=== PATIENT | female | born 1945 | race Caucasian/White ===

== ENCOUNTER 2020-11-01 13:43 | Outpatient (RCR) | payer MEDICARE, MEDICAID, SELFPAY ==
[2020-11-01 14:17] VITALS: BP 154/61; PULSE 80; RESP 20; TEMP 36.9; BMI 47.0
--- NOTE | 2020-11-01 15:48 | PCM.WC.HP ---
(1) Diabetic ulcer of left lower leg Status: Acute Code(s): E11.622 - Type 2 diabetes mellitus with other skin ulcer; L97.929 - Non-pressure chronic ulcer of unspecified part of left lower leg with unspecified severity (2) Fall Status: Acute Code(s): W19.XXXA - Unspecified fall, initial encounter (3) Uncontrolled type 2 diabetes mellitus Status: Acute Code(s): E11.65 - Type 2 diabetes mellitus with hyperglycemia (4) Cellulitis of left lower extremity without foot Status: Acute Code(s): L03.116 - Cellulitis of left lower limb (5) HTN (hypertension) Status: Chronic Code(s): I10 - Essential (primary) hypertension (6) Hyperlipemia Status: Acute Code(s): E78.5 - Hyperlipidemia, unspecified History of Present Illness Date of Service: 11/01/20 Chief Complaint: Nonhealing diabetic ulcer to left lower extremity status post fall a month and a half ago complicated by cellulitis History of Wound: This is a 75-year-old white female who presents to the wound healing center today with complaints of nonhealing diabetic ulcer to left lower extremity. This initially was caused by a fall that occurred a month and a half ago and it was complicated by cellulitis and her uncontrolled diabetes. She was seen by infectious disease and is currently placed on a 6-day course of tedizolid and has also been on a course of Keflex as well. She has a past medical history significant for uncontrolled diabetes, obesity, prior tobacco abuse, hypertension, and hyperlipidemia. The patient has been utilizing antibiotic ointment to the site covered with gauze and change daily without much improvement. She denies any other wound treatments at this time and denies any other acute concerns. Past medical, family, and social history reviewed and not pertinent to the current visit and all other systems reviewed and negative with exception of those listed above. Past Medical History Past Medical History: Chronic Problems HTN (hypertension) (Chronic) Allergies/Adverse Reactions: Allergies sulfamethoxazole [From Bactrim] Adverse Reaction (Verified 11/01/20 14:52) Shortness of breath trimethoprim [From Bactrim] Adverse Reaction (Verified 11/01/20 14:52) Shortness of breath Home Medications: Ambulatory Orders Medication Instructions Recorded Duloxetine HCl 60 mg PO 11/01/20 Fenofibrate [Tricor] 145 mg PO DAILY 11/01/20 Gabapentin TID 11/01/20 Losartan Potassium DAILY 11/01/20 Metformin HCl 1,000 mg PO 11/01/20 Sitagliptin Phosphate [Januvia] 100 mg PO DAILY 11/01/20 traZODone [Desyrel] 50 mg PO PRN PRN 11/01/20 Smoking Status: Former smoker Review of Systems Constitutional: Denies: Chills, Fever, Weight Change Eyes: Denies: Pain, Vision Change HEENT: Denies: Difficulty Hearing, Difficulty Swallowing, Sinus Congestion Cardiovascular: Denies: Chest Pain, Palpitations Respiratory: Denies: Cough, Shortness of Breath Gastrointestinal: Denies: Diarrhea, Nausea, Vomiting Genitourinary: Denies: Dysuria, Hematuria Skin: Reports: Wounds - See HPI Endocrine: Denies: Heat/ Cold Intolerance, Polydipsia, Polyuria Hematologic/ Lymphatic: Denies: Easy Bruising, Easy Bleeding - Physical Exam Vital Signs Temp Pulse Resp BP 98.5 F 80 20 H 154/61 H 11/01/20 14:17 11/01/20 14:17 11/01/20 14:17 11/01/20 14:17 General: Alert, Oriented x3, Cooperative, No apparent distress HEENT: Atraumatic Oral: Moist Mucosa Lungs: Clear to auscultation, Normal air movement Cardiovascular: Regular rate, Regular Rhythm Abdomen: Soft, Obese Extremities: No clubbing, No cyanosis, Diminished Peripheral Pulses, Edema - Generalized bilateral lower extremity edema with chronic venous changes present Skin: Ulcer/ Wound - See nursing documentation, diabetic leg ulcer present with adherent slough, patient does have surrounding area of erythema which seems to be resolving with her current antibiotic treatment Wound Measurements and Assessment WC - Nurse 1 - General Ulcer Measurement Start: 11/01/20 14:17 Freq: Status: Active Protocol: Activity Type Activity Date Activity User E-Sign Co-Sign Detail Recorded Client Recorded Date Recorded By Document 11/01/20 14:17 DL [id number] 11/01/20 14:44 DL 11/01/20 14:17 Wound Center Nurse 1 [Ulcer Assessment] #1 LLE Post -Current Size (cm) - Length 1.2 -Current Size (cm) - Width 1.2 -Current Size (cm) - Depth 0.1 -Total Square Cm 1.44 -Photo Taken Yes -Exudate Amt Small -Exudate Type Serosanguineous -Wound Margin Distinct, Outline Attached -Granulation Amt Medium (34-66%) -Granulation Quality [place] -Necrosis Amt Medium (34-66%) -Necrotic Tissue Type Adherent Slough -Structure Exposed N/A -Texture (Darleen-wound Skin Appearance) Localized Edema ,Scarring -Moisture (Darleen-wound Skin Appearance Dry/Scaly ) -Color (Darleen-wound Skin Appearance) Erythema, Hemosiderin Staining -Temperature (Darleen-wound Skin No Abnormality Appearance) (Pt Warm) -Tenderness on Palpation (Darleen-wound Yes Skin Appearance) -Ulcer Cleansing Wound Cleanser -Foul Odor after Cleansing Yes -Anesthetic Used 4% Lidocaine Solution [Edema Assessment] -Right Calf (cm) 45 -Right Ankle (cm) 25.5 -Left Calf (cm) 49 -Left Ankle (cm) 26.5 WC - Nurse 2 - General Ulcer CM Notes Start: 11/01/20 14:17 Freq: Status: Active Protocol: Activity Type Activity Date Activity User E-Sign Co-Sign Detail Recorded Client Recorded Date Recorded By Document 11/01/20 15:24 MW [id number] 11/01/20 15:34 MW 11/01/20 15:24 Wound Center Nurse 2 [Procedure/Treatment] #1 LLE Post -Time 15:25 -Correct Patient Yes -Correct Side, Site, Position Yes -Correct Procedure Yes -Procedure Performed Yes -Type of Procedure Debridement -Clinical Debridement Subcutaneous -Tissue Removed Subcutaneous -Post Debridement (cm) - Length 1.5 -Post Debridement (cm) - Width 1.5 -Post Debridement (cm) - Depth 0.1 -Total Square (Post) (cm) 2.25 -Area of Debridement (cm) - Length 1.5 -Area of Debridement (cm) - Width 1.5 -Total Square (Area) (cm) 2.25 -Tunneling No -Undermining/Tunneling No -Circular Undermining No -Wound/Ulcer Outcome Not Healed -Ulcer Cleansing Rinsed/ Irrigated with Saline -Foul Odor after Cleansing No -Bioengineered Tissue No -Bleeding Controlled with Pressure -Offloading No -Treatment Response Procedure Tolerated Well -Debridement - Subq, 1st 20sq cm Yes [See Physician Procedure note for Specifics] Pain Scale: 0-10 Numeric [Pain] -Is Patient Pain Free? Yes WC - Nurse 3 - General Ulcer D/C NN Start: 11/01/20 14:17 Freq: Status: Active Protocol: Activity Type Activity Date Activity User E-Sign Co-Sign Detail Recorded Client Recorded Date Recorded By Document 11/01/20 15:40 MW [id number] 11/01/20 15:43 MW 11/01/20 15:40 Wound Care Nurse 3 [Wound Dressing] #1 LLE Post -Ulcer Cleansing Rinsed/ Irrigated with Saline -Foul Odor after Cleansing No -Negative Pressure Wound Therapy N/A -Primary Dressing Applied Promogran Isabel Matter -Primary Dressing Covered/Secured Dry Gauze & with Roll Gauze, Secured with Tape -Promogran Isabel Matter 1 [Post Procedure Tolerated] -Treatment Response Procedure Tolerated Well Pain Scale: 0-10 Numeric [Pain] -Is Patient Pain Free? Yes Teaching: Wound Center [Wound Center Education] (Items with an * have Printed Materials Available- Please identify what is given to patient under the Teaching materials given to patient and caregiver Section. Control Swelling with Leg Elevation -Person Taught Patient -Teaching Method Discussion -Response to teaching Verbalize understanding Dressing Your Wound -Person Taught Patient,Family -Teaching Method Discussion, Demonstration -Response to teaching Verbalize understanding - Visit Discharge [Visit Discharge Information] -Discharge Condition Stable -Ambulatory Status Ambulatory,Cane -Transportation Private Auto -Accompanied by daughter -Medication Reconcilliation completed No & provided to patient/care provider -Clinical Summary of Care Provided Yes Neurological: Neuro grossly intact Psych/Mental Status: Normal Affect, Appropriate, Alert and oriented to time, place, person, mood and affect Debridement Note Post-Debridement Measurements/Treatment - Nurse 2 - General Ulcer CM Notes Start: 11/01/20 14:17 Freq: Status: Active Protocol: Activity Type Activity Date Activity User E-Sign Co-Sign Detail Recorded Client Recorded Date Recorded By Document 11/01/20 15:24 MW [id number] 11/01/20 15:34 MW 11/01/20 15:24 Wound Center Nurse 2 #1 LLE Post -Time 15:25 -Correct Patient Yes -Correct Side, Site, Position Yes -Correct Procedure Yes -Procedure Performed Yes -Type of Procedure Debridement -Clinical Debridement Subcutaneous -Tissue Removed Subcutaneous -Post Debridement (cm) - Length 1.5 -Post Debridement (cm) - Width 1.5 -Post Debridement (cm) - Depth 0.1 -Total Square (Post) (cm) 2.25 -Area of Debridement (cm) - Length 1.5 -Area of Debridement (cm) - Width 1.5 -Total Square (Area) (cm) 2.25 -Tunneling No -Undermining/Tunneling No -Circular Undermining No -Wound/Ulcer Outcome Not Healed -Ulcer Cleansing Rinsed/ Irrigated with Saline -Foul Odor after Cleansing No -Bioengineered Tissue No -Bleeding Controlled with Pressure -Offloading No -Treatment Response Procedure Tolerated Well -Debridement - Subq, 1st 20sq cm Yes Pain Scale: 0-10 Numeric Is Patient Pain Free? Yes WC - Nurse 3 - General Ulcer D/C NN Start: 11/01/20 14:17 Freq: Status: Active Protocol: Activity Type Activity Date Activity User E-Sign Co-Sign Detail Recorded Client Recorded Date Recorded By Document 11/01/20 15:40 MW [id number] 11/01/20 15:43 MW 11/01/20 15:40 Wound Care Nurse 3 #1 LLE Post -Ulcer Cleansing Rinsed/ Irrigated with Saline -Foul Odor after Cleansing No -Negative Pressure Wound Therapy N/A -Primary Dressing Applied Promogran Isabel Matter -Primary Dressing Covered/Secured with Dry Gauze & Roll Gauze, Secured with Tape -Promogran Isabel Matter 1 Treatment Response Procedure Tolerated Well Pain Scale: 0-10 Numeric Is Patient Pain Free? Yes Teaching: Wound Center Control Swelling with Leg Elevation -Person Taught Patient -Teaching Method Discussion -Response to teaching Verbalize understanding Dressing Your Wound -Person Taught Patient,Family -Teaching Method Discussion, Demonstration -Response to teaching Verbalize understanding WC - Visit Discharge Discharge Condition Stable Ambulatory Status Ambulatory,Cane Transportation Private Auto Accompanied by daughter Medication Reconcilliation completed & No provided to patient/care provider Clinical Summary of Care Provided Yes Wound debrided: Left diabetic leg ulcer Laterality: Left Type of Debridement: Excisional debridement Anesthesia Used: 5% Lidocaine Gel Depth: in the subcutaneous layer Percentage of wound debrided: 100 Instrument Used: 5mm curette Tissue Removed: Slough and devitalized tissue Severity: Fat Layer Exposed Amount of bleeding with debridement: Mild Bleeding Controlled with: Pressure Patient tolerated procedure well Assessment/Plan Active Problems Diabetic ulcer of left lower leg (Acute) Fall (Acute) Uncontrolled type 2 diabetes mellitus (Acute) Cellulitis of left lower extremity without foot (Acute) HTN (hypertension) (Chronic) Hyperlipemia (Acute) Assessment: Diabetic leg ulcer to left lower extremity Plan: The patient was seen and examined at the wound center today and was updated on the plan of care. A subcutaneous debridement was performed today. The patient tolerated the procedure well. The patients wound care will consist of: Application of moistened Isabel cover with gauze change daily. Double layer Tubigrip for compression. Wound cultures were collected. Baseline bloodwork held at this time. Vascular studies held at this time, will reconsider if no improvement. Given the delayed wound healing and patient's complicated wound involvement including uncontrolled diabetes and cellulitis, will apply for an advanced skin substitute. Patient educated on the importance of diet on wound healing and instructed to increase protein and vitamin C intake. Patient verbalized understanding. Patient has been advised to elevate lower extremities as much as possible. Elevation is to be implemented during daytime hours and legs are to be elevated to heart level, or higher, as much as possible. Prolonged idle sitting has been discouraged. Activity and ambulation has been encouraged. Patient will follow up at wound healing center in one week or sooner if needed. This note was generated with [employer] dictation software. It may contain incorrect words, spelling, and punctuation that were not noted in checking the note before signing. I spent 45 minutes today physically examining patient and educating patient on plan of care. This time also included reviewing her labs, prior documentation, and documenting. Office Visits / Consults: [id number] OV L4 New [id number]: [id number] Kavya subq tissue 20 sq cm/<
== END 2020-11-04 23:59 ==
LOC: WC 13:43
PROVIDERS: PCP Nurse Practitioner Primary Care; Referring Provider Internal Medicine Infectious Disease; Visit Provider Nurse Practitioner Family
DX: E11.622 Type 2 diabetes mellitus with other skin ulcer (principal); L97.922 Non-pressure chronic ulcer of unspecified part of left lower leg with fat layer exposed; L03.116 Cellulitis of left lower limb; W19.XXXA Unspecified fall, initial encounter; E66.9 Obesity, unspecified; E78.5 Hyperlipidemia, unspecified; I10 Essential (primary) hypertension; Z79.84 Long term (current) use of oral hypoglycemic drugs; Z79.899 Other long term (current) drug therapy; Z87.891 Personal history of nicotine dependence; Z88.1 Allergy status to other antibiotic agents; Z88.2 Allergy status to sulfonamides
CPT/HCPCS: 11042; 87070; 87075; 87205; 99203; G0463

== ENCOUNTER 2020-11-22 14:45 | Outpatient (RCR) | payer MEDICARE, MEDICAID, SELFPAY ==
[2020-11-05 00:41] VITALS: BP 154/61; PULSE 80; RESP 20; TEMP 36.9
[2020-11-08 14:58] VITALS: BP 146/64; PULSE 81; RESP 20; TEMP 35.7; BMI 47.0
[2020-11-08 15:41] VITALS: BP 138/79; PULSE 68; RESP 18; TEMP 36.5
--- NOTE | 2020-11-08 16:07 | PN.PCM_ITS ---
(1) Diabetic ulcer of left lower leg Status: Acute Code(s): E11.622 - Type 2 diabetes mellitus with other skin ulcer; L97.929 - Non-pressure chronic ulcer of unspecified part of left lower leg with unspecified severity Comment: bowen 2 (2) Cellulitis of left lower extremity without foot Status: Acute Code(s): L03.116 - Cellulitis of left lower limb (3) Fall Status: Acute Code(s): W19.XXXA - Unspecified fall, initial encounter (4) Uncontrolled type 2 diabetes mellitus Status: Acute Code(s): E11.65 - Type 2 diabetes mellitus with hyperglycemia (5) HTN (hypertension) Status: Chronic Code(s): I10 - Essential (primary) hypertension Type of Wound Date of Service: 11/08/20 Chief Complaint: Nonhealing diabetic ulcer to left lower extremity status post fall a month and a half ago complicated by cellulitis History of Wound: This is a 75-year-old white female who presents to the wound healing center today with complaints of nonhealing diabetic ulcer to left lower extremity. This initially was caused by a fall that occurred a month and a half ago and it was complicated by cellulitis and her uncontrolled diabetes. She was seen by infectious disease and is currently placed on a 6-day course of tedizolid and has also been on a course of Keflex as well. She has a past medical history significant for uncontrolled diabetes, obesity, prior tobacco abuse, hypertension, and hyperlipidemia. The patient has been utilizing antibiotic ointment to the site covered with gauze and change daily without much improvement. She denies any other wound treatments at this time and denies any other acute concerns. Past medical, family, and social history reviewed and not pertinent to the current visit and all other systems reviewed and negative with exception of those listed above. Progress of Wound: Improved, no new concerns. Wound cultures were reviewed and negative. - Physical Exam Vital Signs Temp Pulse Resp BP 97.7 F L 68 18 138/79 H 11/08/20 15:41 11/08/20 15:41 11/08/20 15:41 11/08/20 15:41 General: Alert, Oriented x3, Cooperative, No apparent distress HEENT: Atraumatic Oral: Moist Mucosa Lungs: Clear to auscultation, Normal air movement Cardiovascular: Regular rate Abdomen: Soft, Non Tender, Obese Extremities: No clubbing, No cyanosis, Diminished Peripheral Pulses - Diminished dorsal pedis pulses bilaterally, Edema - 1+ bilateral lower extremity edema Skin: Ulcer/ Wound - See nursing documentation, slough and devitalized tissue present, no signs of infection at this time Wound Measurements and Assessment - Nurse 1 - General Ulcer Measurement Start: 11/08/20 14:58 Freq: Status: Active Protocol: Activity Type Activity Date Activity User E-Sign Co-Sign Detail Recorded Client Recorded Date Recorded By Document 11/08/20 14:58 DL [id number] 11/08/20 15:06 DL 11/08/20 14:58 Wound Center Nurse 1 [Ulcer Assessment] #1 LLE Post -Current Size (cm) - Length 1 -Current Size (cm) - Width 1.1 -Current Size (cm) - Depth 0.1 -Total Square Cm 1.1 -Photo Taken No -Exudate Amt Small -Exudate Type Serosanguineous -Wound Margin Distinct, Outline Attached -Granulation Amt Medium (34-66%) -Granulation Quality Red -Necrosis Amt Medium (34-66%) -Necrotic Tissue Type Adherent Slough -Structure Exposed N/A -Texture (Darleen-wound Skin Appearance) Scarring -Moisture (Darleen-wound Skin Appearance Dry/Scaly ) -Color (Darleen-wound Skin Appearance) Hemosiderin Staining -Temperature (Darleen-wound Skin No Abnormality Appearance) (Pt Warm) -Tenderness on Palpation (Darleen-wound No Skin Appearance) -Ulcer Cleansing Wound Cleanser -Foul Odor after Cleansing No -Anesthetic Used 4% Lidocaine Solution [Edema Assessment] -Left Calf (cm) 45.8 -Left Ankle (cm) 25 - Nurse 3 - General Ulcer D/C NN Start: 11/08/20 14:58 Freq: Status: Active Protocol: Activity Type Activity Date Activity User E-Sign Co-Sign Detail Recorded Client Recorded Date Recorded By Document 11/08/20 15:41 MS [id number] 11/08/20 15:43 MS 11/08/20 15:41 Wound Care Nurse 3 [Wound Dressing] #1 LLE Post -Ulcer Cleansing Rinsed/ Irrigated with Saline -Foul Odor after Cleansing No -Primary Dressing Applied Promogran Isabel Matter -Promogran Isabel Matter 1 [Compression Applied] Left -Tubular Bandage Double Layer -Size of Tubigrip Used Size F -Size F ($) 2 -Stockings No Vital Signs [Temperature Protocol: VS] -Temperature (97.8 F-99.1 F) 97.7 F L -Temperature Source Tympanic [Pulse] -Pulse Rate (60-100) 68 -Pulse Location Monitor [Respirations] -Respiratory Rate (12-18) 18 -Respiratory rate source Observation [Blood Pressure] -Blood Pressure (90/60-120/80) 138/79 H -Blood Pressure Mean (mm Hg) 98 -Source Monitor -Position Supine -Blood Pressure Location Left Arm Pain Scale: 0-10 Numeric [Pain] -Is Patient Pain Free? Yes WC - Visit Discharge [Visit Discharge Information] -Discharge Condition Stable -Ambulatory Status Cane -Accompanied by daughter -Medication Reconcilliation completed No & provided to patient/care provider -Clinical Summary of Care Provided Yes Neurological: Neuro grossly intact Psych/Mental Status: Normal Affect, Appropriate, Alert and oriented to time, place, person, mood and affect Debridement Note Post-Debridement Measurements/Treatment WC - Nurse 3 - General Ulcer D/C NN Start: 11/08/20 14:58 Freq: Status: Active Protocol: Activity Type Activity Date Activity User E-Sign Co-Sign Detail Recorded Client Recorded Date Recorded By Document 11/08/20 15:41 MS [id number] 11/08/20 15:43 MS 11/08/20 15:41 Wound Care Nurse 3 #1 LLE Post -Ulcer Cleansing Rinsed/ Irrigated with Saline -Foul Odor after Cleansing No -Primary Dressing Applied Promogran Isabel Matter -Promogran Isabel Matter 1 Left -Tubular Bandage Double Layer -Size of Tubigrip Used Size F -Size F ($) 2 -Stockings No Vital Signs Temperature (97.8 F-99.1 F) 97.7 F L Temperature Source Tympanic Pulse Rate (60-100) 68 Pulse Location Monitor Respiratory Rate (12-18) 18 Respiratory rate source Observation Blood Pressure (90/60-120/80) 138/79 H Blood Pressure Mean (mm Hg) 98 Source Monitor Position Supine Blood Pressure Location Left Arm Pain Scale: 0-10 Numeric Is Patient Pain Free? Yes WC - Visit Discharge Discharge Condition Stable Ambulatory Status Cane Accompanied by daughter Medication Reconcilliation completed & No provided to patient/care provider Clinical Summary of Care Provided Yes Wound debrided: Diabetic leg ulcer left lower leg Laterality: Left Type of Debridement: Excisional debridement Anesthesia Used: 5% Lidocaine Gel Depth: in the subcutaneous layer Percentage of wound debrided: 100 Instrument Used: 5mm curette Tissue Removed: Slough and devitalized tissue Severity: Fat Layer Exposed Amount of bleeding with debridement: Mild Bleeding Controlled with: Pressure Patient tolerated procedure well Assessment/Plan Assessment: Diabetic leg ulcer to left lower extremity Plan: The patient was seen and examined at the wound center today and was updated on the plan of care. A subcutaneous debridement was performed today. The patient tolerated the procedure well. The patients wound care will consist of: Application of moistened Isabel cover with gauze change daily. Double layer Tubigrip for compression. Wound cultures were collected. Baseline bloodwork held at this time. Vascular studies held at this time, will reconsider if no improvement. Given the delayed wound healing and patient's complicated wound involvement including uncontrolled diabetes and cellulitis, will apply for an advanced skin substitute. Patient educated on the importance of diet on wound healing and instructed to increase protein and vitamin C intake. Patient verbalized understanding. Patient has been advised to elevate lower extremities as much as possible. Elevation is to be implemented during daytime hours and legs are to be elevated to heart level, or higher, as much as possible. Prolonged idle sitting has been discouraged. Activity and ambulation has been encouraged. Patient will follow up at wound healing center in one week or sooner if needed. This note was generated with [email or web address] software. It may contain incorrect words, spelling, and punctuation that were not noted in checking the note before signing. 111xxx-113xx: [id number] Kavya subq tissue 20 sq cm/<
[2020-11-15 14:54] VITALS: BP 155/69; PULSE 77; RESP 18; TEMP 36.8; BMI 47.0
--- NOTE | 2020-11-15 15:55 | PCM.WC.PN ---
(1) Diabetic ulcer of left lower leg Status: Acute Code(s): E11.622 - Type 2 diabetes mellitus with other skin ulcer; L97.929 - Non-pressure chronic ulcer of unspecified part of left lower leg with unspecified severity Comment: bowen 2 (2) Cellulitis of left lower extremity without foot Status: Acute Code(s): L03.116 - Cellulitis of left lower limb (3) Fall Status: Acute Code(s): W19.XXXA - Unspecified fall, initial encounter (4) Uncontrolled type 2 diabetes mellitus Status: Acute Code(s): E11.65 - Type 2 diabetes mellitus with hyperglycemia (5) HTN (hypertension) Status: Chronic Code(s): I10 - Essential (primary) hypertension Type of Wound Date of Service: 11/15/20 Chief Complaint: Nonhealing diabetic ulcer to left lower extremity status post fall a month and a half ago complicated by cellulitis History of Wound: This is a 75-year-old white female who presents to the wound healing center today with complaints of nonhealing diabetic ulcer to left lower extremity. This initially was caused by a fall that occurred a month and a half ago and it was complicated by cellulitis and her uncontrolled diabetes. She was seen by infectious disease and is currently placed on a 6-day course of tedizolid and has also been on a course of Keflex as well. She has a past medical history significant for uncontrolled diabetes, obesity, prior tobacco abuse, hypertension, and hyperlipidemia. The patient has been utilizing antibiotic ointment to the site covered with gauze and change daily without much improvement. She denies any other wound treatments at this time and denies any other acute concerns. Past medical, family, and social history reviewed and not pertinent to the current visit and all other systems reviewed and negative with exception of those listed above. Progress of Wound: Improved, no new concerns. Wound cultures were reviewed and negative. - Physical Exam Vital Signs Temp Pulse Resp BP 98.2 F 77 18 155/69 H 11/15/20 14:54 11/15/20 14:54 11/15/20 14:54 11/15/20 14:54 General: Alert, Oriented x3, Cooperative, No apparent distress HEENT: Atraumatic Oral: Moist Mucosa Neck: Supple Lungs: Clear to auscultation, Normal air movement Cardiovascular: Regular rate Abdomen: Soft, Obese Extremities: No clubbing, No cyanosis, Diminished Peripheral Pulses - Diminished dorsal pedis pulses bilaterally, Edema - Generalized bilateral lower extremity edema Skin: Ulcer/ Wound - See nursing documentation, slough and devitalized tissue present, no signs of obvious infection at this time Wound Measurements and Assessment - Nurse 1 - General Ulcer Measurement Start: 11/08/20 14:58 Freq: Status: Active Protocol: Activity Type Activity Date Activity User E-Sign Co-Sign Detail Recorded Client Recorded Date Recorded By Document 11/15/20 14:54 PL [id number] 11/15/20 15:00 PL 11/15/20 14:54 Wound Center Nurse 1 [Ulcer Assessment] #1 LLE Post -Current Size (cm) - Length 0.9 -Current Size (cm) - Width 0.8 -Current Size (cm) - Depth 0.1 -Total Square Cm 0.72 -Photo Taken No -Epithelialization None Present -Tunneling No -Undermining/Tunneling No -Circular Undermining No -Exudate Amt Medium -Exudate Type Serosanguineous -Granulation Amt Large (67-100%) -Granulation Quality Between -Slough/Fibrin Yes -Necrosis Amt Small (1-33%) -Texture (Darleen-wound Skin Appearance) No Abnormality -Moisture (Darleen-wound Skin Appearance No Abnormality ) -Color (Darleen-wound Skin Appearance) No Abnormality -Temperature (Darleen-wound Skin No Abnormality Appearance) (Pt Warm) -Ulcer Cleansing Rinsed/ Irrigated with Saline -Foul Odor after Cleansing No -Anesthetic Used 5% Lidocaine Gel - Nurse 2 - General Ulcer CM Notes Start: 11/08/20 14:58 Freq: Status: Active Protocol: Activity Type Activity Date Activity User E-Sign Co-Sign Detail Recorded Client Recorded Date Recorded By Document 11/15/20 15:19 MW [id number] 11/15/20 15:25 MW 11/15/20 15:19 Wound Center Nurse 2 [Procedure/Treatment] -Time 15:23 -Correct Patient Yes -Correct Side, Site, Position Yes -Correct Procedure Yes -Procedure Performed Yes -Type of Procedure Debridement -Clinical Debridement Subcutaneous -Tissue Removed Subcutaneous -Post Debridement (cm) - Length 1.0 -Post Debridement (cm) - Width 0.9 -Post Debridement (cm) - Depth 0.1 -Total Square (Post) (cm) 0.90 -Area of Debridement (cm) - Length 1.0 -Area of Debridement (cm) - Width 0.9 -Total Square (Area) (cm) 0.90 -Tunneling No -Undermining/Tunneling No -Circular Undermining No -Wound/Ulcer Outcome Not Healed -Ulcer Cleansing Rinsed/ Irrigated with Saline -Foul Odor after Cleansing No -Bioengineered Tissue No -Bleeding Controlled with Pressure -Offloading No -Treatment Response Procedure Tolerated Well -Debridement - Subq, 1st 20sq cm Yes [See Physician Procedure note for Specifics] Pain Scale: 0-10 Numeric [Pain] -Is Patient Pain Free? Yes - Nurse 3 - General Ulcer D/C NN Start: 11/08/20 14:58 Freq: Status: Active Protocol: Activity Type Activity Date Activity User E-Sign Co-Sign Detail Recorded Client Recorded Date Recorded By Document 11/15/20 15:25 MW [id number] 11/15/20 15:26 MW 11/15/20 15:25 Wound Care Nurse 3 [Wound Dressing] #1 LLE Post -Ulcer Cleansing Rinsed/ Irrigated with Saline -Foul Odor after Cleansing No -Negative Pressure Wound Therapy N/A -Primary Dressing Applied Aquacel Extra -Primary Dressing Covered/Secured Dry Gauze & with Roll Gauze, Secured with Tape -Aquacel Extra 1 [Post Procedure Tolerated] -Treatment Response Procedure Tolerated Well Pain Scale: 0-10 Numeric [Pain] -Is Patient Pain Free? Yes Teaching: Wound Center [Wound Center Education] (Items with an * have Printed Materials Available- Please identify what is given to patient under the Teaching materials given to patient and caregiver Section. Control Swelling with Leg Elevation -Person Taught Patient,Family -Teaching Method Discussion -Response to teaching Verbalize understanding Dressing Your Wound -Person Taught Patient,Family -Teaching Method Discussion -Response to teaching Verbalize understanding - Visit Discharge [Visit Discharge Information] -Discharge Condition Stable -Ambulatory Status Ambulatory -Transportation Private Auto -Accompanied by daughter -Medication Reconcilliation completed No & provided to patient/care provider -Clinical Summary of Care Provided Yes Neurological: Neuro grossly intact Psych/Mental Status: Normal Affect, Appropriate, Alert and oriented to time, place, person, mood and affect Debridement Note Post-Debridement Measurements/Treatment WC - Nurse 2 - General Ulcer CM Notes Start: 11/08/20 14:58 Freq: Status: Active Protocol: Activity Type Activity Date Activity User E-Sign Co-Sign Detail Recorded Client Recorded Date Recorded By Document 11/08/20 15:00 PL [id number] 11/14/20 14:55 PL Document 11/15/20 15:19 MW [id number] 11/15/20 15:25 MW 11/08/20 11/15/20 15:00 15:19 Wound Center Nurse 2 #1 LLE Post -Time 15:00 15:23 -Correct Patient Yes Yes -Correct Side, Site, Position Yes Yes -Correct Procedure Yes Yes -Procedure Performed Yes Yes -Type of Procedure Debridement Debridement -Clinical Debridement Subcutaneous Subcutaneous -Tissue Removed Subcutaneous Subcutaneous -Post Debridement (cm) - Length 1 1.0 -Post Debridement (cm) - Width 1.1 0.9 -Post Debridement (cm) - Depth 0.1 0.1 -Total Square (Post) (cm) 1.1 0.90 -Area of Debridement (cm) - Length 1 1.0 -Area of Debridement (cm) - Width 1.1 0.9 -Total Square (Area) (cm) 1.1 0.90 -Tunneling No No -Undermining/Tunneling No No -Circular Undermining No No -Wound/Ulcer Outcome Not Healed Not Healed -Ulcer Cleansing Rinsed/ Rinsed/ Irrigated with Irrigated with Saline Saline -Foul Odor after Cleansing No No -Bioengineered Tissue No No -Bleeding Controlled with Pressure -Offloading No -Treatment Response Procedure Tolerated Well -Debridement - Subq, 1st 20sq cm Yes Yes Pain Scale: 0-10 Numeric Is Patient Pain Free? Yes Yes WC - Nurse 3 - General Ulcer D/C NN Start: 11/08/20 14:58 Freq: Status: Active Protocol: Activity Type Activity Date Activity User E-Sign Co-Sign Detail Recorded Client Recorded Date Recorded By Document 11/08/20 15:41 MS [id number] 11/08/20 15:43 MS Document 11/15/20 15:25 MW [id number] 11/15/20 15:26 MW 11/08/20 11/15/20 15:41 15:25 Wound Care Nurse 3 #1 LLE Post -Ulcer Cleansing Rinsed/ Rinsed/ Irrigated with Irrigated with Saline Saline -Foul Odor after Cleansing No No -Negative Pressure Wound Therapy N/A -Primary Dressing Applied Promogran Aquacel Extra Isabel Matter -Primary Dressing Covered/Secured with Dry Gauze & Roll Gauze, Secured with Tape -Aquacel Extra 1 -Promogran Isabel Matter 1 Left -Tubular Bandage Double Layer -Size of Tubigrip Used Size F -Size F ($) 2 -Stockings No Treatment Response Procedure Tolerated Well Vital Signs Temperature (97.8 F-99.1 F) 97.7 F L Temperature Source Tympanic Pulse Rate (60-100) 68 Pulse Location Monitor Respiratory Rate (12-18) 18 Respiratory rate source Observation Blood Pressure (90/60-120/80) 138/79 H Blood Pressure Mean (mm Hg) 98 Source Monitor Position Supine Blood Pressure Location Left Arm Pain Scale: 0-10 Numeric Is Patient Pain Free? Yes Yes Teaching: Wound Center Control Swelling with Leg Elevation -Person Taught Patient,Family -Teaching Method Discussion -Response to teaching Verbalize understanding Dressing Your Wound -Person Taught Patient,Family -Teaching Method Discussion -Response to teaching Verbalize understanding WC - Visit Discharge Discharge Condition Stable Stable Ambulatory Status Cane Ambulatory Transportation Private Auto Accompanied by daughter daughter Medication Reconcilliation completed & No No provided to patient/care provider Clinical Summary of Care Provided Yes Yes Wound debrided: Left lower extremity ulcer Laterality: Left Type of Debridement: Excisional debridement Anesthesia Used: 5% Lidocaine Gel Depth: in the subcutaneous layer Percentage of wound debrided: 100 Instrument Used: 5mm curette Tissue Removed: Slough and devitalized tissue Severity: Fat Layer Exposed Amount of bleeding with debridement: Mild Bleeding Controlled with: Pressure Patient tolerated procedure well Assessment/Plan Active Problems Diabetic ulcer of left lower leg (Acute) bowen 2 Fall (Acute) Uncontrolled type 2 diabetes mellitus (Acute) Cellulitis of left lower extremity without foot (Acute) HTN (hypertension) (Chronic) Assessment: Diabetic leg ulcer to left lower extremity Plan: The patient was seen and examined at the wound center today and was updated on the plan of care. A subcutaneous debridement was performed today. The patient tolerated the procedure well. The patients wound care will consist of: Application of moistened Isabel cover with gauze change daily. Double layer Tubigrip for compression. Wound cultures were collected. Baseline bloodwork held at this time. Vascular studies held at this time, will reconsider if no improvement. Given the delayed wound healing and patient's complicated wound involvement including uncontrolled diabetes and cellulitis, will apply for an advanced skin substitute. Patient educated on the importance of diet on wound healing and instructed to increase protein and vitamin C intake. Patient verbalized understanding. Patient has been advised to elevate lower extremities as much as possible. Elevation is to be implemented during daytime hours and legs are to be elevated to heart level, or higher, as much as possible. Prolonged idle sitting has been discouraged. Activity and ambulation has been encouraged. Patient will follow up at wound healing center in one week or sooner if needed. This note was generated with [email or web address] dictation software. It may contain incorrect words, spelling, and punctuation that were not noted in checking the note before signing. [id number]: [id number] Kavya subq tissue 20 sq cm/<
[2020-11-22 14:40] VITALS: BP 192/74; PULSE 84; TEMP 35.6; BMI 47.0
--- NOTE | 2020-11-22 15:48 | PN.PCM_ITS ---
(1) Diabetic ulcer of left lower leg Status: Acute Code(s): E11.622 - Type 2 diabetes mellitus with other skin ulcer; L97.929 - Non-pressure chronic ulcer of unspecified part of left lower leg with unspecified severity Comment: bowen 2 (2) Cellulitis of left lower extremity without foot Status: Acute Code(s): L03.116 - Cellulitis of left lower limb (3) Fall Status: Acute Code(s): W19.XXXA - Unspecified fall, initial encounter (4) Uncontrolled type 2 diabetes mellitus Status: Acute Code(s): E11.65 - Type 2 diabetes mellitus with hyperglycemia (5) HTN (hypertension) Status: Chronic Code(s): I10 - Essential (primary) hypertension Type of Wound Date of Service: 11/22/20 Chief Complaint: Nonhealing diabetic ulcer to left lower extremity status post fall a month and a half ago complicated by cellulitis History of Wound: This is a 75-year-old white female who presents to the wound healing center today with complaints of nonhealing diabetic ulcer to left lower extremity. This initially was caused by a fall that occurred a month and a half ago and it was complicated by cellulitis and her uncontrolled diabetes. She was seen by infectious disease and is currently placed on a 6-day course of tedizolid and has also been on a course of Keflex as well. She has a past medical history significant for uncontrolled diabetes, obesity, prior tobacco abuse, hypertension, and hyperlipidemia. The patient has been utilizing antibiotic ointment to the site covered with gauze and change daily without much improvement. She denies any other wound treatments at this time and denies any other acute concerns. Past medical, family, and social history reviewed and not pertinent to the current visit and all other systems reviewed and negative with exception of those listed above. Progress of Wound: Site is healed, no signs of obvious infection at this time, no new concerns. Wound cultures were reviewed and negative. The patient otherwise denies any fever, chills, nausea, vomiting, shortness of breath, chest pain or pressure, palpitations, orthopnea, lower extremity edema, syncope or presyncopal episodes. - Physical Exam Vital Signs Temp Pulse Resp BP 96.0 F L 84 18 192/74 H 11/22/20 14:40 11/22/20 14:40 11/15/20 14:54 11/22/20 14:40 General: Alert, Oriented x3, Cooperative, No apparent distress HEENT: Atraumatic Oral: Moist Mucosa Lungs: Clear to auscultation, Normal air movement Cardiovascular: Regular rate, Regular Rhythm Abdomen: Soft, Non Tender Extremities: No clubbing, No cyanosis, Edema - Lower extremity edema, Peripheral Pulses Normal Skin: Ulcer/ Wound - See nursing documentation, wound is healed without any sig ns of infection at this time Wound Measurements and Assessment WC - Nurse 1 - General Ulcer Measurement Start: 11/08/20 14:58 Freq: Status: Active Protocol: Activity Type Activity Date Activity User E-Sign Co-Sign Detail Recorded Client Recorded Date Recorded By Document 11/22/20 14:40 KR [id number] 11/22/20 14:47 KR 11/22/20 14:40 Wound Center Nurse 1 [Ulcer Assessment] #1 LLE Post -Current Size (cm) - Length 1.7 -Current Size (cm) - Width 1.5 -Current Size (cm) - Depth 0.1 -Total Square Cm 2.55 -Exudate Amt Small -Exudate Type Serosanguineous -Wound Margin Distinct, Outline Attached -Granulation Amt Medium (34-66%) -Granulation Quality Red -Necrosis Amt Medium (34-66%) -Necrotic Tissue Type Adherent Slough -Texture (Darleen-wound Skin Appearance) Assessed, Scarring -Moisture (Darleen-wound Skin Appearance Assessed,Dry/ ) Scaly -Color (Darleen-wound Skin Appearance) No Abnormality, Assessed -Temperature (Darleen-wound Skin No Abnormality Appearance) (Pt Warm) -Tenderness on Palpation (Darleen-wound No Skin Appearance) -Ulcer Cleansing Rinsed/ Irrigated with Saline -Foul Odor after Cleansing No -Anesthetic Used 4% Lidocaine Solution [Edema Assessment] -Left Calf (cm) 45 -Left Ankle (cm) 27 WC - Nurse 2 - General Ulcer CM Notes Start: 11/08/20 14:58 Freq: Status: Active Protocol: Activity Type Activity Date Activity User E-Sign Co-Sign Detail Recorded Client Recorded Date Recorded By Document 11/22/20 15:00 MW [id number] 11/22/20 15:05 MW 11/22/20 15:00 Wound Center Nurse 2 [Procedure/Treatment] #1 LLE Post -Time 15:01 -Correct Patient Yes -Correct Side, Site, Position Yes -Correct Procedure Yes -Procedure Performed No -Post Debridement (cm) - Length 0 -Post Debridement (cm) - Width 0 -Post Debridement (cm) - Depth 0 -Total Square (Post) (cm) 0 -Wound/Ulcer Outcome Healed- Epithelialized [See Physician Procedure note for Specifics] Pain Scale: 0-10 Numeric [Pain] -Is Patient Pain Free? Yes - Nurse 3 - General Ulcer D/C NN Start: 11/08/20 14:58 Freq: Status: Active Protocol: Activity Type Activity Date Activity User E-Sign Co-Sign Detail Recorded Client Recorded Date Recorded By Document 11/22/20 15:09 DL [id number] 11/22/20 15:10 DL 11/22/20 15:09 Wound Care Nurse 3 [Compression Applied] Left -Stockings Yes [Post Procedure Tolerated] -Treatment Response Procedure Tolerated Well Pain Scale: 0-10 Numeric [Pain] -Is Patient Pain Free? Yes - Visit Discharge [Visit Discharge Information] -Discharge Condition Stable -Ambulatory Status Ambulatory -Transportation Private Auto -Notes: Healed. discharged. Adaptic and Hyrogel for 1 week. Neurological: Neuro grossly intact Psych/Mental Status: Normal Affect, Appropriate, Alert and oriented to time, place, person, mood and affect Debridement Note Post-Debridement Measurements/Treatment WC - Nurse 2 - General Ulcer CM Notes Start: 11/08/20 14:58 Freq: Status: Active Protocol: Activity Type Activity Date Activity User E-Sign Co-Sign Detail Recorded Client Recorded Date Recorded By Document 11/08/20 15:00 PL [id number] 11/14/20 14:55 PL Document 11/15/20 15:19 MW [id number] 11/15/20 15:25 MW Document 11/22/20 15:00 MW [id number] 11/22/20 15:05 MW 11/08/20 11/15/20 11/22/20 15:00 15:19 15:00 Wound Center Nurse 2 #1 LLE Post -Time 15:00 15:23 15:01 -Correct Patient Yes Yes Yes -Correct Side, Site, Position Yes Yes Yes -Correct Procedure Yes Yes Yes -Procedure Performed Yes Yes No -Type of Procedure Debridement Debridement -Clinical Debridement Subcutaneous Subcutaneous -Tissue Removed Subcutaneous Subcutaneous -Post Debridement (cm) - Length 1 1.0 0 -Post Debridement (cm) - Width 1.1 0.9 0 -Post Debridement (cm) - Depth 0.1 0.1 0 -Total Square (Post) (cm) 1.1 0.90 0 -Area of Debridement (cm) - Length 1 1.0 -Area of Debridement (cm) - Width 1.1 0.9 -Total Square (Area) (cm) 1.1 0.90 -Tunneling No No -Undermining/Tunneling No No -Circular Undermining No No -Wound/Ulcer Outcome Not Healed Not Healed Healed- Epithelialized -Ulcer Cleansing Rinsed/ Rinsed/ Irrigated with Irrigated with Saline Saline -Foul Odor after Cleansing No No -Bioengineered Tissue No No -Bleeding Controlled with Pressure -Offloading No -Treatment Response Procedure Tolerated Well -Debridement - Subq, 1st 20sq cm Yes Yes Pain Scale: 0-10 Numeric Is Patient Pain Free? Yes Yes Yes - Nurse 3 - General Ulcer D/C NN Start: 11/08/20 14:58 Freq: Status: Active Protocol: Activity Type Activity Date Activity User E-Sign Co-Sign Detail Recorded Client Recorded Date Recorded By Document 11/08/20 15:41 MS [id number] 11/08/20 15:43 MS Document 11/15/20 15:25 MW [id number] 11/15/20 15:26 MW Document 11/22/20 15:09 DL [id number] 11/22/20 15:10 DL 11/08/20 11/15/20 11/22/20 15:41 15:25 15:09 Wound Care Nurse 3 #1 LLE Post -Ulcer Cleansing Rinsed/ Rinsed/ Irrigated with Irrigated with Saline Saline -Foul Odor after Cleansing No No -Negative Pressure Wound Therapy N/A -Primary Dressing Applied Promogran Aquacel Extra Isabel Matter -Primary Dressing Covered/Secured with Dry Gauze & Roll Gauze, Secured with Tape -Aquacel Extra 1 -Promogran Isabel Matter 1 Left -Tubular Bandage Double Layer -Size of Tubigrip Used Size F -Size F ($) 2 -Stockings No Yes Treatment Response Procedure Procedure Tolerated Well Tolerated Well Vital Signs Temperature (97.8 F-99.1 F) 97.7 F L Temperature Source Tympanic Pulse Rate (60-100) 68 Pulse Location Monitor Respiratory Rate (12-18) 18 Respiratory rate source Observation Blood Pressure (90/60-120/80) 138/79 H Blood Pressure Mean (mm Hg) 98 Source Monitor Position Supine Blood Pressure Location Left Arm Pain Scale: 0-10 Numeric Is Patient Pain Free? Yes Yes Yes Teaching: Wound Center Control Swelling with Leg Elevation -Person Taught Patient,Family -Teaching Method Discussion -Response to teaching Verbalize understanding Dressing Your Wound -Person Taught Patient,Family -Teaching Method Discussion -Response to teaching Verbalize understanding WC - Visit Discharge Discharge Condition Stable Stable Stable Ambulatory Status Cane Ambulatory Ambulatory Transportation Private Auto Private Auto Accompanied by daughter daughter Medication Reconcilliation completed & No No provided to patient/care provider Clinical Summary of Care Provided Yes Yes Notes: Healed. discharged. Adaptic and Hyrogel for 1 week. Assessment/Plan Active Problems Diabetic ulcer of left lower leg (Acute) bowen 2 Fall (Acute) Uncontrolled type 2 diabetes mellitus (Acute) Cellulitis of left lower extremity without foot (Acute) HTN (hypertension) (Chronic) Assessment: Diabetic leg ulcer to left lower extremity Plan: The patient was seen and examined at the wound center today and was updated on the plan of care. The patient's wounds are healed without any signs of infection at this time. Patient will protect the recently healed wound by applying Adaptic and covering with gauze and tape and utilizing compression stockings. Patient has been advised to elevate lower extremities as much as possible. Elevation is to be implemented during daytime hours and legs are to be elevated to heart level, or higher, as much as possible. Prolonged idle sitting has been discouraged. Activity and ambulation has been encouraged. Patient educated on the importance of diet on wound healing and instructed to increase protein and vitamin C intake. Patient verbalized understanding. Patient has been advised to elevate lower extremities as much as possible. Patient will be discharged from the wound healing center today and follow-up as needed. This note was generated with [employer] dictation software. It may contain incorrect words, spelling, and punctuation that were not noted in checking the note before signing. 25 minutes today was utilized on educating patient on plan of care and wound treatment modalities. Office Visits / Consults: [id number] OV L3 Est
== END 2020-12-02 23:59 ==
LOC: WC 14:45
PROVIDERS: PCP Nurse Practitioner Primary Care; Referring Provider Internal Medicine Infectious Disease; Visit Provider Nurse Practitioner Family
DX: E11.622 Type 2 diabetes mellitus with other skin ulcer (principal); L97.822 Non-pressure chronic ulcer of other part of left lower leg with fat layer exposed; L03.116 Cellulitis of left lower limb; E11.65 Type 2 diabetes mellitus with hyperglycemia; I10 Essential (primary) hypertension; E78.5 Hyperlipidemia, unspecified; E66.9 Obesity, unspecified; Z87.891 Personal history of nicotine dependence
CPT/HCPCS: 11042; 99213; G0463

== ENCOUNTER 2020-12-10 09:35 | Outpatient (RCR) | payer MEDICARE, SELFPAY ==
[2020-12-10] MEDS: COVID-19 VACC, MRNA(PFIZER)/PF 30 MCG/0.3 ML SYRINGE IM (12:15)
[2021-01-01] MEDS: COVID-19 VACC, MRNA(PFIZER)/PF 30 MCG/0.3 ML SYRINGE IM (12:10)
== END 2021-03-12 23:59 ==
LOC: IMMUN 09:35
PROVIDERS: PCP Nurse Practitioner Primary Care; Visit Provider Family Medicine
DX: Z23 Encounter for immunization (principal)
CPT/HCPCS: 0001A; 0002A; 91300

== ENCOUNTER → 2023-09-14 | Outpatient (REF) | payer MEDICARE, MEDICAID, SELFPAY ==
[2023-09-14 08:22] LABS: Hematocrit 45.9 % (37-47); Hemoglobin 13.3 g/dL (12.0-15.0); Mean Corpuscular Hgb 26.8 pg (27.0-32.0); Mean Corpuscular Volume 92.5 fL (81-99); Mean Platelet Vol. 8.3 fl (6.2-12.0); Platelet Count 196 K/mm3 (150-450); RBC Distribution Width CV 13.9 % (11.6-14.6); Red Blood Count 4.96 M/mm3 (4.2-5.4); White Blood Count 5.9 K/mm3 (4.4-11.0)
[2023-09-14 09:14] LABS: Anion Gap 5 (5-15); BUN 6 mg/dL (7-18); BUN/Creat Ratio 10.1 RATIO (10-20); Calcium,Total 8.9 mg/dL (8.5-10.1); Chloride 102 mmol/L (98-107); Creatinine, Serum 0.59 mg/dL (0.55-1.02); EST Glomerular Filtration Rate 103 mL/min (>60); Est Glom Filt Rate - Afr Amer 125 mL/min (>60); Glucose 142 mg/dL (74-106); Potassium 4.1 mmol/L (3.5-5.1); Sodium Level 138 mmol/L (136-145)
== END ==
LOC: OLS.WCC 05:00
PROVIDERS: PCP Nurse Practitioner Primary Care; Visit Provider Family Medicine
DX: E11.9 Type 2 diabetes mellitus without complications (principal); I10 Essential (primary) hypertension; Z79.899 Other long term (current) drug therapy
CPT/HCPCS: 36415; 80048; 85027

== ENCOUNTER → 2023-09-23 | Outpatient (REF) | payer MEDICARE, MEDICAID, SELFPAY | LOC: OLS.WCC 10:10 | PROVIDERS: PCP Nurse Practitioner Primary Care; Visit Provider Family Medicine | DX: R19.7 Diarrhea, unspecified (principal) | CPT/HCPCS: 87493 ==

== ENCOUNTER → 2023-12-14 | Outpatient (REF) | payer MEDICARE, MEDICAID, SELFPAY ==
--- OUTSIDE RECORDS SUMMARY | 2023-12-14 03:44 | XMS RPT_ITS | CCD ---
Author Name Unknown Address [id number] [place] [address] Organization [facility] Care Team Providers Care Collections Analyst Name Role Phone OSMAN PERDUE, LACI Primary Care Physician OSMAN PERDUE, LACI Primary Care Unavailabl e KELLYTES ENVIRONMENTAL LAW PROFESSOR-GAS TURBINE ASSEMBLER, LACI Attending Unavailabl e KELLYTES ENVIRONMENTAL LAW PROFESSOR-GAS TURBINE ASSEMBLER, LACI Primary Care Unavailabl e BALTES ENVIRONMENTAL LAW PROFESSOR-GAS TURBINE ASSEMBLER, LACI Attending Unavailabl e KAPPER ENVIRONMENTAL LAW PROFESSOR-GAS TURBINE ASSEMBLER, ROHAN Romero Attending Unavaila ble OSMAN SNOWN-RODRIGO, LACI Primary Care Unavailluisa e NORBERT ROBB DO Referring Unavailable SPITTLE DO, JOSE Consulting Unavailable JULY BENTON-RODRIGO, ROHAN Romero Admitting Unavaila ble Unavailable Primary Care Provider Xavier Alves MD, Balwinder Dominguez Primary Care Provider [phone] MERISSA UREÑA Referring Unavailable TETE TREVINO Attending Unavailable BALWINDER ALVES Primary Care Unavailable TETE TREVINO Attending Unavailable BALWINDER ALVES Primary Care Unavailable MERISSA UREÑA Attending Unavailable TETE TREVINO Referring Unavailable BALWINDER ALVES Primary Care Unavailable TETE TREVINO Referring Unavailable BALWINDER ALVES Primary Care Unavailable Allergies Allergy Classification Reported Allergen(s) Allergy Type Date of Onset Reaction(s) Facility (4 sources) Acetaminophen / oxyCODONE; Translations: [acetaminophen-ox ycodone] Drug Allergy [facility] (7 sources) Adhesive Tape Allergy to substance 3 REDNESS & BLISTERS [facility] (4 sources) Amoxicillin / Clavulanate; Translations: [amoxicillin-clav ulanate] Drug Allergy Rash [facility] (4 sources) Aspirin; Translations: [aspirin] Drug Allergy Unknown [facility] (8 sources) Ciprofloxacin; Translations: [ciprofloxacin] Drug Allergy 3 Rash [facility] (4 sources) dapagliflozin; Translations: [dapagliflozin] Drug Allergy Rash [facility] (7 sources) Ibuprofen; Translations: [ibuprofen] Drug Allergy 3 [facility] (8 sources) Latex Drug allergy 3 BLISTERS & REDNESS [facility] (4 sources) Sulfamethoxazole; Translations: [sulfamethoxazole ] Drug Allergy [facility] (6 sources) Cephalexin; Translations: [cephalexin] Drug Allergy 3 [facility] Medications Current Medications Medication Drug Class(es) Dates Sig (Normalized) Sig (Original) 3 ML semaglutide 2.68 MG/ML Pen Injector [Ozempic] (1 source) Start: 05-19-2023 End: 08-17-2023 inject 1 dose by subcutaneous injection every week Ozempic 8 mg/3 mL (2 mg dose) subcutaneous solution Dose : 2 mg =, Subcutaneous, qWeek, in the abdomen, thigh, or upper arm, # 9 mL, 0 Refill(s), Pharmacy: [facility]/pharmacy #[id number], Type 2 diabetes mellitus, 168.91, cm, 02/18/23 11:25:00 EDT, Height, kg, 02/18/23 11:25:00 EDT, Dosing Weight Start Date: 05/19/23 Stop Date: 08/17/23 Status: Ordered acetaminophen 500 mg oral tablet (11 sources) Start: 07-22-2023 [employer] Pain Relief Extra [facility] 500 MG tablet Completed/Discontinued Medications Medication Drug Class(es) Dates Sig (Normalized) Sig (Original) ceFAZolin 1000 mg injection (1 source) Cephalosporin Antibacterial Start: 07-03-2023 End: 07-10-2023 ceFAZolin 1 g injection 1 gram(s), IV Piggyback, q8h, 0 Refill(s), REC Injection, 128 Start Date: 07/03/23 Stop Date: 07/10/23 Status: Ordered cholestyramine 4 g/4.8 g oral powder for reconstitution (1 source) Start: 04-03-2022 End: 07-02-2022 take 8 doses by mouth twice daily as needed for pain cholestyramine 4 g/4.8 g oral powder for reconstitution Dose : 8 gram(s) =, Oral, BID, PRN abdominal pain/diarrhea, # 120 packet(s), 0 Refill(s), Pharmacy: [facility]/pharmacy #[id number], Diarrhea, 167.6, cm, 02/04/22 11:02:00 EDT, Height, kg, 02/04/22 11:02:00 EDT, Dosing Weight Start Date: 04/03/22 Stop Date: 07/02/22 Status: Ordered sugar-free cholestyramine resin 4000 mg powder for oral suspension (1 source) Bile Acid Sequestrant Start: 04-03-2022 End: 07-02-2022 take 8 doses by mouth twice daily as needed for pain cholestyramine 4 g/4.8 g oral powder for reconstitution Dose : 8 gram(s) =, Oral, BID, PRN abdominal pain/diarrhea, # 120 packet(s), 0 Refill(s), Pharmacy: [facility]/pharmacy #[id number], Diarrhea, 167.6, cm, 02/04/22 11:02:00 EDT, Height, kg, 02/04/22 11:02:00 EDT, Dosing Weight Start Date: 04/03/22 Stop Date: 07/02/22 Status: Ordered clotrimazole 10 mg/ml topical cream (1 source) Azole Antifungal Start: 07-03-2023 clotrimazole 1% topical cream Apply 1 calos, Topical, BID, 0 Refill(s), Cream, 128 Start Date: 07/03/23 Status: Ordered triamcinolone acetonide 1 mg/ml topical cream (2 sources) Corticosteroid Start: 10-16-2020 triamcinolone 0.1% topical cream Apply 1 calos, Topical, BID, 0 Refill(s), Cream, 141.8 Start Date: 10/16/20 Status: Ordered Problems Problem Classification Problem Date Documented Da te Episodic/Chronic Diabetes mellitus with complications (4 sources) Neuropathy due to diabetes mellitus; Translations: [Type 2 diabetes mellitus with diabetic neuropathy, unspecified] Onset: 06-30-2023 02-06-2022 Chronic Diabetes mellitus without complication (8 sources) Diabetes mellitus; Translations: [Type 2 diabetes mellitus without complication] Onset: 06-30-2023 02-22-2020 Chronic Disorders of lipid metabolism (4 sources) Hyperlipidemia 05-10-2019 Chronic Essential hypertension (7 sources) Hypertensive disorder; Translations: [Essential hypertension] Onset: 06-30-2023 12-27-2015 Chronic Fracture of lower limb (10 sources) Closed fracture of shaft of fibula; Translations: [Unspecified fracture of shaft of unspecified fibula, initial encounter for closed fracture] Onset: 07-02-2023 Episodic Genitourinary symptoms and ill-defined conditions (4 sources) Urinary incontinence 07-25-2019 Chronic Mood disorders (7 sources) Depressive disorder; Translations: [Major depressive disorder] Onset: 06-30-2023 11-15-2019 Chronic Neoplasms of unspecified nature or uncertain behavior (4 sources) Neoplasm of uncertain behavior of neck 05-15-2020 Episodic Osteoarthritis (4 sources) Osteoarthritis of multiple joints 11-15-2019 Chronic Other bone disease and musculoskeletal deformities (4 sources) Osteopenia 01-22-2021 Episodic Other nervous system disorders (4 sources) Disorder of the peripheral nervous system 01-10-2016 Chronic Other non-epithelial cancer of skin (4 sources) Basal cell carcinoma of neck 05-17-2020 Episodic Other non-traumatic joint disorders (1 source) Acute ankle pain; Translations: [Pain in left ankle and joints of left foot] 10-14-2023 Episodic Other non-traumatic joint disorders (2 sources) Pain in left ankle and joints of left foot; Translations: [Pain in left ankle and joints of left foot] Onset: 10-14-2023 Episodic Other nutritional; endocrine; and metabolic disorders (4 sources) Morbid obesity 01-22-2021 Chronic Other nutritional; endocrine; and metabolic disorders (1 source) Body mass index 40+ - severely obese 02-18-2023 Chronic Other nutritional; endocrine; and metabolic disorders (2 sources) Morbid (severe) obesity due to excess calories; Translations: [Morbid (severe) obesity due to excess calories] Onset: 06-30-2023 Chronic Pulmonary heart disease (2 sources) Pulmonary embolism 12-27-2015 Episodic Residual codes; unclassified (4 sources) Insomnia 11-15-2019 Episodic Transient cerebral ischemia (2 sources) Transient cerebral ischemia 04-06-2019 Chronic Urinary tract infections (2 sources) Urinary tract infectious disease; Translations: [Urinary tract infection, site not specified] Onset: 07-01-2023 Episodic Results Test Name Value Interpretation Reference Range Facil ity Vital Signs Date Time Vital Sign Value Performing Clinician Faci lity 12-09-2023 10:13-0500 Body weight 120.2 kg Tete FITZGERALD Work Phone: [employer] 12-09-2023 10:13-0500 Diastolic blood pressure 66 mm[Hg] Tete FITZGERALD Work Phone: [facility] 12-09-2023 10:13-0500 Heart rate 69 /min Tete FITZGERALD Work Phone: [facility] 12-09-2023 10:13-0500 Systolic blood pressure 190 mm[Hg] Tete FITZGERALD Work Phone: [facility] 07-04-2023 19:10-0400 Body temperature 98.24 [degF] ROHAN MCDOWELL ENVIRONMENTAL LAW PROFESSOR-G[employer]URBINE ASSEMBLER [facility] 07-04-2023 19:10-0400 Diastolic Blood Pressure Non-Invasive 46 1 ROHAN MCDOWELL ENVIRONMENTAL LAW PROFESSOR-GAS TURBINE ASSEMBLER [facility] 07-04-2023 19:10-0400 Heart rate 78 /min ROHAN MCDOWELL ENVIRONMENTAL LAW PROFESSOR-G[employer] TURBINE ASSEMBLER [facility] 07-04-2023 19:10-0400 Reason For Taking VItal Signs ROHAN MCDOWELL ENVIRONMENTAL LAW PROFESSOR-GAS TURBINE ASSEMBLER [facility] 07-04-2023 19:10-0400 Respiratory rate 18 /min ROHAN KAPPER ENVIRONMENTAL LAW PROFESSOR-G[employer] TURBINE ASSEMBLER [facility] 07-04-2023 19:10-0400 Systolic Blood Pressure Non-Invasive 142 1 ROHAN KAPPER ENVIRONMENTAL LAW PROFESSOR-G[employer] TUR[employer]INE ASSEMBLER [facility] 07-04-2023 16:39-0400 Diastolic Blood Pressure Non-Invasive 60 1 ROHAN KAPPER ENVIRONMENTAL LAW PROFESSOR-G[employer] TURBINE ASSEMBLER [facility] 07-04-2023 16:39-0400 Systolic Blood Pressure Non-Invasive 158 1 ROHAN KAPPER ENVIRONMENTAL LAW PROFESSOR-G[employer] TURBINE ASSEMBLER [facility] 07-04-2023 16:22-0400 Body temperature 97.88 [degF] ROHAN KAPPER ENVIRONMENTAL LAW PROFESSOR-G[employer]UR[employer] ASSEMBLER [facility] 07-04-2023 16:22-0400 Diastolic Blood Pressure Non-Invasive 121 1 ROHAN KAPPER ENVIRONMENTAL LAW PROFESSOR-G[employer]URBINE ASSEMBLER [facility] 07-04-2023 16:22-0400 Heart rate 72 /min ROHAN KAPPER ENVIRONMENTAL LAW PROFESSOR-G[employer]UR[employer] ASSEMBLER [facility] 07-04-2023 16:22-0400 Respiratory rate 20 /min ROHAN KAPPER ENVIRONMENTAL LAW PROFESSOR-G[employer]UR[employer] ASSEMBLER [facility] 07-04-2023 16:22-0400 Systolic Blood Pressure Non-Invasive 152 1 ROHAN KAPPER ENVIRONMENTAL LAW PROFESSOR-G[employer] TURBINE ASSEMBLER [facility] 07-04-2023 12:17-0400 Body temperature 97.88 [degF] ROHAN KAPPER ENVIRONMENTAL LAW PROFESSOR-[employer]UR[employer] ASSEMBLER [facility] 07-04-2023 12:17-0400 Heart rate 72 /min ROHAN KAPPER ENVIRONMENTAL LAW PROFESSOR-G[employer]UR[employer] ASSEMBLER [facility] 07-04-2023 12:17-0400 Respiratory rate 20 /min ROHAN KAPPER ENVIRONMENTAL LAW PROFESSOR-G[employer]UR[employer] ASSEMBLER [facility] 07-04-2023 11:20-0400 Heart rate 74 /min ROHAN KAPPER ENVIRONMENTAL LAW PROFESSOR-G[employer]UR[employer] ASSEMBLER [facility] 07-04-2023 07:54-0400 Heart rate 74 /min ROHAN KAPPER ENVIRONMENTAL LAW PROFESSOR-[employer]UR[employer] ASSEMBLER [facility] 07-04-2023 04:11-0400 Heart rate 82 /min ROHAN KAPPER ENVIRONMENTAL LAW PROFESSOR-[employer]UR[employer] ASSEMBLER [facility] 07-04-2023 04:11-0400 Reason For Taking VItal Signs ROHAN KAPPER ENVIRONMENTAL LAW PROFESSOR-G[employer]UR[employer] ASSEMBLER [facility] 07-03-2023 23:30-0400 Reason For Taking VItal Signs ROHAN KAPPER ENVIRONMENTAL LAW PROFESSOR-G[employer]UR[employer] ASSEMBLER [facility] 07-03-2023 03:07-0400 Heart rate 78 /min ROHAN KAPPER ENVIRONMENTAL LAW PROFESSOR-G[employer]UR[employer] ASSEMBLER [facility] 07-02-2023 22:59-0400 Heart rate 82 /min ROHAN KAPPER ENVIRONMENTAL LAW PROFESSOR-G[employer]UR[employer] ASSEMBLER [facility] 06-30-2023 18:36-0400 Body height 160 cm ROHAN KAPPER ENVIRONMENTAL LAW PROFESSOR-G[employer]URB[employer] ASSEMBLER [facility] 06-30-2023 18:36-0400 Body weight 128 kg ROHAN KAPPER ENVIRONMENTAL LAW PROFESSOR-G[employer] TURB[employer] ASSEMBLER [facility] 06-30-2023 18:36-0400 Body weight 50 kg/m2 ROHAN KAPPER ENVIRONMENTAL LAW PROFESSOR-G[employer]UR[employer] ASSEMBLER [facility] 06-30-2023 15:17-0400 Blood Pressure Location ROHAN KAPPER ENVIRONMENTAL LAW PROFESSOR-G[employer]UR[employer] ASSEMBLER [facility] 06-30-2023 15:17-0400 Blood Pressure Method ROHAN MCDOWELL APRN-C DIETITIAN [facility] Encounters Encounter Date Encounter Type Care Provider Facility Start: 12-09-2023 End: 12-09-2023 ambulatory TETE TREVINO [facility] Start: 12-09-2023 End: 12-09-2023 Office outpatient visit 15 minutes Tete FITZGERALD Work Phone: [facility] Procedures Date Procedure Procedure Detail Performing Clinician Start: 12-09-2023 Follow-up visit Follow-up TETE DUTTON Start: 04-04-2023 Extraction of cataract ROHAN MCDOWELL ENVIRONMENTAL LAW PROFESSOR-G[employer]UR[employer] ASSEMBLER Plan of Treatment Date Care Activity Detail Author Start: 06-24-2026 DTaP/Tdap/Td Vaccine s (2 - Td or Tdap) DTaP/Tdap/Td Vaccines (2 - Td or Tdap) [facility] Start: 11-25-2023 End: 11-16-2024 XR Ankle - left 3 Views XR ankle 3+ views left Imaging Routine Closed fracture of distal end of left fibula, unspecified fracture morphology, initial encounter Expected: 11/25/2023, Expires: 11/16/2024 [facility] Work Phone: Immunizations Immunization Date Immunization Notes Care Provider Mita laura 07-03-2022 influenza virus vaccine, unspecified formulation LACI BREWER ENVIRONMENTAL LAW PROFESSOR-G[employer] TURBINE ASSEMBLER [facility] 01-14-2022 SARS-CoV-2 mRNA (fwwjfuuzvgh-vlth-efrpp se) vaccine LACI BREWER ENVIRONMENTAL LAW PROFESSOR-G[employer]UR[employer] ASSEMBLER [facility] 06-14-2021 influenza virus vaccine, unspecified formulation LACI BREWER ENVIRONMENTAL LAW PROFESSOR-G[employer] TURBINE ASSEMBLER [facility] 04-08-2021 zoster vaccine recombinant LACI BREWER ENVIRONMENTAL LAW PROFESSOR-G[employer]UR[employer]INE ASSEMBLER [facility] 01-01-2021 SARS-CoV-2 (COVID-19 ) mRNA BNT-162b2 vax LACI BREWER ENVIRONMENTAL LAW PROFESSOR-G[employer]URBINE ASSEMBLER [facility] 12-10-2020 SARS-CoV-2 (COVID-19 ) mRNA BNT-162b2 vax LACI BREWER ENVIRONMENTAL LAW PROFESSOR-G[employer] TURBINE ASSEMBLER [facility] Payers Date Payer Category Payer Medicare [employer] [id number] 2023-Present [phone] [address] [place] [address] Medicare HMO [id number] 2023 Medicare [id number] 2023 Unknown [id number] 1945 Unknown [id number] 1945 Unknown [id number] 1945 Unknown [id number] Social History Date Type Detail Facility Start: 04-06-2019 Ex-smoker (finding) [facility] Medical Equipment Procedure Code Equipment Code Equipment Origin al Text Equipment Identifier Dates BD UF SHORT PEN NEEDLE [id number] Start: 08-29-[address] Strips Start: 10-16-2020 Lancets Start: 04-23-2021 BD UF SHORT PEN NEEDLE [id number], 0 Refill(s), 141.8 Start: 08-29-2020 See Instructions , EA=BOX of 100 2x daily testing once touch untra blue dx: diabetes, # 6 EA, 3 Refill(s), Pharmacy: [facility]/pharmacy #[id number], Diabetes, 166.37, cm, 07/24/21 11:31:00 EDT, Height, 134.5, kg, 07/24/21 11:31:00 EDT, Dosing Weight Start: 07-24-2021 See Instructions , EA=BOX OF 100 ONETOUCH DELICA LANCETS FINE, 33 GA TO TEST BID Diabetes R11.9, # 6 EA, 3 Refill(s), Pharmacy: [facility]/pharmacy #[id number], Diabetes, 166.37, cm, 07/24/21 11:31:00 EDT, Height, 134.5, kg, 07/24/21 11:31:00 EDT, Dosing Weight Start: 07-24-2021 See Instructions , Using Twice Daily. ONE BOX OF 100. BD UF 8mm 31 G (short) qs 3 month supply Diabetes Mellitus E11.9, # 2 EA, 0 Refill(s), Pharmacy: [facility]/pharmacy #[id number], 167.6, cm, 11/05/21 9:58:00 EST, Height, 135.4, kg, 11/05/21 9:58:00 EST, Dosing... Start: 12-20-2021 See Instructions , EA=BOX of 100 2x daily testing once touch untra blue dx: diabetes, # 6 EA, 3 Refill(s), Pharmacy: [facility]/pharmacy #[id number], Diabetes, 167.6, cm, 05/20/22 12:08:00 EDT, Height, 134.9, kg, 05/20/22 11:59:00 EDT, Dosing Weight Start: 08-05-2022 See Instructions , EA=BOX OF 100 ONETOUCH DELICA LANCETS FINE, 33 GA TO TEST BID Diabetes R11.9, # 6 EA, 3 Refill(s), Pharmacy: [facility]/pharmacy #[id number], Diabetes, 167.6, cm, 08/19/22 12:13:00 EST, Height, 135.4, kg, 08/19/22 12:13:00 EST, Dosing Weight Start: 09-10-2022 See Instructions , EA=ONE BOX OF 100, BID BD UF 8mm 31 G (short) qs 3 month supply Diabetes Mellitus E11.9, # 2 EA, 3 Refill(s), Pharmacy: [facility]/pharmacy #[id number], 167.6, cm, 11/20/22 11:29:00 EST, Height, 134, kg, 11/20/22 11:29:00 EST, Dosing Weight Start: 11-20-2022 See Instructions , EA=BOX of 100 2x daily testing once touch untra blue dx: diabetes, # 6 EA, 3 Refill(s), Pharmacy: [facility]/pharmacy #[id number], Diabetes, 167.6, cm, 05/20/22 12:08:00 EDT, Height, 134.9, kg, 05/20/22 11:59:00 EDT, Dosing Weight Start: 08-05-2022 See Instructions , EA=BOX OF 100 ONETOUCH DELICA LANCETS FINE, 33 GA TO TEST BID Diabetes R11.9, # 6 EA, 3 Refill(s), Pharmacy: [facility]/pharmacy #[id number], Diabetes, 167.6, cm, 08/19/22 12:13:00 EST, Height, 135.4, kg, 08/19/22 12:13:00 EST, Dosing Weight Start: 09-10-2022 See Instructions , EA=ONE BOX OF 100, BID BD UF 8mm 31 G (short) qs 3 month supply Diabetes Mellitus E11.9, # 2 EA, 3 Refill(s), [id number], 167.6, cm, 11/20/22 11:29:00 EST, Height, 134, kg, 11/20/22 11:29:00 EST, Dosing Weight Start: 11-20-2022 Functional Status Date Assessment Result Facility 07-04-2023 Functional Status Room check performed [facility] 07-04-2023 Functional Status right knee high applied /on [facility] 07-04-2023 Functional Status [facility] 07-04-2023 Functional Status [facility] 07-04-2023 Functional Status Demonstrates C orrect Call Light Use Yes [facility] 07-04-2023 Functional Status Done [facility] 07-04-2023 Functional Status Varun Jackson [facility] 07-03-2023 Functional Status Positioning Repositions self [facility] 07-03-2023 Functional Status Varun Jackson [facility]03-2023 [facility] Status Varun Jackson [facility] 07-03-2023 Functional Status Varun Jackson [facility] 07-03-2023 Functional Status Varun Jackson [facility] 07-02-2023 Functional Status Varun Jackson [facility] 07-02-2023 Functional Status Max A Varun Jackson [facility] 07-01-2023 Functional Status Varun Jackson [facility] 07-01-2023 Functional Status Single level home [facility] 07-01-2023 Functional Status Varun Jackson [facility] 06-30-2023 Functional Status Sensory Deficits None A [facility] 06-30-2023 Functional Status Activity Rosa tance Independent [facility] Mental Status Date Assessment Result Facility 07-04-2023 Mental Status Orientation Orie nted x 4, Follows simple commands [facility] 07-03-2023 Mental Status [facility] 07-03-2023 Mental Status [facility] 07-03-2023 Mental Status Orientation Asse ssment Oriented x 4 [facility] 07-02-2023 Mental Status [facility] 07-01-2023 Mental Status [facility] Clinical Notes 06-30-2023 to 12-09-2023 LIA Champagne - 12/09/2023 10:30 AM LIA Hutchinson - 10/14/2023 10:00 AM ESTTelephone Encounter - Kimberly Capellan MA - 09/03/2023 8:53 AM EST Note Date & Type Note Facility 12-09-2023 History of Present illness Narrative Images from the original note were not included. [facility] [address] [place] [address] [place] [id number] Dept: [phone] Dept Bree Bustamante 1945 [id number] 12/09/2023 HISTORY OF PRESENT ILLNESS: Bree returns for re-evaluation of her left lateral malleolus fracture. Bree reports that her pain has decreased since the last visit Bree reports that her swelling has decreased since the last visit Bree denies calf pain and shortness of breath Bree has been weight bearing as tolerated on the left lower extremity in in an Aircast boot which she has been taking off for sleep and ROM. In general Bree feels that she is doing better than the her last visit Other complaints or issues: None Review of Systems Surgical Risk Factors: Allergies to Metals or Latex: NO Have you been treated for a blood clot: NO Have you had a history of bleeding disorder: NO Have you had a history of Anesthetic problems: NO Do you have tendency to bruise easily: NO Do you experience prolonged or excessive bleeding from cuts or after surgery: NO General/Constitutional: General: no Cancer: NO Acute/Chronic Infections: NO HEENT/Neck: Problems with theThroat: NO Problems with the Eyes: NO Problems with the Ears: NO Problems with the Nose and Sinuses: NO Endocrine: Problems with Diabetes: NO Problems with Thyroid Disorder: NO Thorax: Problems with the Heart: NO Problems with the Lung: no Cardiovascular: Problems with Circulation: NO Problems with High Blood pressure: NO Gastrointestinal: Problems with Ulcers: NO Problems with the Liver: no Problems with Bowel Habits: NO Genitourinary: Problems with the Genitals: NO Urinary problems: NO Kidney disease or stones: NO Skin: Any general problems: NO Neurologic: Dizziness, blurred vision, headaches, problems with balance : NO Seizures or Stroke: NO Psychiatric: Emotional or Psychological disorders: NO Depression or Anxiety: no PAST MEDICAL HISTORY: No past medical history on file. Allergies Allergen Reactions Tape Other reaction(s): REDNESS & BLISTERS Wound Dressing Adhesive Other reaction(s): blister Other reaction(s): blister, REDNESS & BLISTERS Amoxicillin-Pot Clavulanate Rash Cephalexin Hives Immediate rash / hives; patient seen in ER after last administration of Keflex Ciprofloxacin Rash Dapagliflozin Rash Latex Sulfamethoxazole Other reaction(s): Hives, Shortness of breath Aspirin Unknown Oxycodone-Acetaminophen Trimethoprim Other reaction(s): Shortness of breath Diphenhydramine-Acetaminophen Ibuprofen PHYSICAL EXAM: BP (!) 190/66 Pulse 69 Wt 265 lb (120 kg) This is an age appropriate appearing female who is alert and oriented x 3. The patient appears well nourished. Psychiatric: The patient is able to verbalize normally and seems to have a good understanding of her situation. The left lower extremity is examined. Skin: Skin is warm and dry and ruborous in a dependent position which resolves with elevation Lymphatic: No lymphadenopathy Moderate swelling of the ankle Vascular: Capillary refill in the foot/toes is less than 3 seconds. Neurologic: Sensation is intact to light touch throughout the foot and the ankle . Musculoskeletal: The calf is nontender to palpation. Muscle strength testing deferred due to ankle deformity ROM: Decreased ROM of the foot and ankle (chronic deformity) Areas of Tenderness: lateral malleolus is nontender RADIOGRAPHIC INTERPRETATION: 3 weight bearing views of the Left ankle were obtained and the following is my interpretation of the findings present of the X-rays: fracture line is still visible though there is improvement noted of the fracture healing. The ankle is in consistent alignment as compared to previous imaging. Uncoverage of the talar head is consistent with previous imaging. REVIEW OF RELATED PREVIOUS DOCUMENTATION: No documents related to the current problem(s) were reviewed or no documents were available for review. LABORATORY RESULT INTERPRETATION: No labs were reviewed/No labs available for review DIAGNOSIS: Diagnosis Plan 1. Closed fracture of distal end of left fibula, unspecified fracture morphology, initial encounter DME Order for Lace up brace MEDICAL DECISION MAKING: I had a discussion with Bree to make sure she has a good understanding of the diagnoses/issues that I think are present today and understands the plan moving forward. I explained to Bree that her fracture of the left lateral malleolus is in acceptable alignment and is progressively healing as expected As a result it was decided to have Bree transition from the aircast boot to a shoe with a laceup brace. she was instructed to use the laceup brace for the next 6 weeks and then she can wean from the brace to just a shoe if her symptoms will allow. Bree was given a brace today and was instructed on its use and care. I explained to Bree that the brace is meant to provide support to the ankle/foot and it will restrict motion somewhat as well and it is hoped that this will help relieve some of her symptoms but may not completely resolve her current issue(s). If she has any problems or concerns regarding the brace or if it is not helping, she was instructed to call the office. Bree was instructed to be weight bearing as tolerated on the left lower extremity in the lace up brace and a shoe. If Bree has any problems maintaining this weight bearing status she was instructed to call me so that appropriate instructions can be given. We discussed that she should always be using a walker when ambulating as her foot deformity will make her balance poorly. I explained that as she increases her activity level there will likely be some level of discomfort in the area of the injury but if there is pain then she needs to stop the activity. I explained that it can take up to 12 months to be able to participate in pre-injury activities. If her pain is increasing she needs to call for an appointment. Bree can continue to elevate the left lower extremity for comfort if needed. I want to see Bree back as needed. If Bree feels things are going poorly or if she is having problems with the above plan she was instructed to call my office to determine if the plan of care needs to be changed or if she needs to be seen sooner than noted above. Follow up if symptoms worsen or fail to improve. Electronically signed by LIA Champagne [facility] Department of Orthopedic surgery 12/09/2023 3:43 PM Voice recognition was used for portions of this note and although it was reviewed prior to signing some incorrect words or phrases could be present. documented in this encounter [facility] 10-14-2023 History of Present illness Narrative Images from the original note were not included. [facility] [address] [place] [address] [place] [phone] Dept: [phone] Dept Bree Bustamante [id number] 10/14/2023 HISTORY OF PRESENT ILLNESS: Bree returns for re-evaluation of her Left distal fibula fx DOI 07/02/23 Bree reports that her pain has been minimal Bree reports that her swelling has been minimal Bree denies calf pain and shortness of breath Bree has been nonweight bearing on the right lower extremity in in an Aircast boot which she has been taking off for sleep and ROM. In general Bree feels that she is doing better than the her last visit Other complaints or issues: None Review of Systems Constitutional: Negative for activity change. HENT: Negative for congestion. Cardiovascular: Negative for leg swelling. Musculoskeletal: Positive for arthralgias, gait problem and joint swelling. Skin: Negative for wound. Neurological: Negative for weakness. PAST MEDICAL HISTORY: History reviewed. No pertinent past medical history. Allergies Allergen Reactions Tape Other reaction(s): REDNESS & BLISTERS Wound Dressing Adhesive Other reaction(s): blister Other reaction(s): blister, REDNESS & BLISTERS Amoxicillin-Pot Clavulanate Rash Cephalexin Hives Immediate rash / hives; patient seen in ER after last administration of Keflex Ciprofloxacin Rash Dapagliflozin Rash Latex Sulfamethoxazole Other reaction(s): Hives, Shortness of breath Aspirin Unknown Oxycodone-Acetaminophen Trimethoprim Other reaction(s): Shortness of breath Diphenhydramine-Acetaminophen Ibuprofen PHYSICAL EXAM: There were no vitals taken for this visit. This is an age appropriate appearing female who is alert and oriented x 3. The patient appears well nourished. Psychiatric: The patient is able to verbalize normally and seems to have a good understanding of her situation. The left lower extremity is examined. Skin: Skin is warm and dry and ruborous in a dependent position which resolves with elevation Lymphatic: No lymphadenopathy Moderate swelling of the ankle, hindfoot, midfoot, and forefoot Vascular: Capillary refill in the foot/toes is less than 3 seconds. Neurologic: Sensation is intact to light touch throughout the foot and the ankle . Musculoskeletal: The calf is nontender to palpation. Muscle strength testing deferred secondary to injury ROM: Decreased ROM of the foot and ankle Alignment: No obvious deformity of ankle A hindfoot valgus deformity is present that does not fully correct passively. With the hindfoot corrected a forefoot varus deformity is present. Areas of Tenderness: medial ankle, posterior tibial tendon Lateral malleolus is nontender RADIOGRAPHIC INTERPRETATION: 3 nonweightbearing views of the Left ankle were obtained and the following is my interpretation of the findings present of the X-rays: continued bone healing noted of the fracture of the lateral malleolus. The ankle mortise is well aligned. REVIEW OF RELATED PREVIOUS DOCUMENTATION: No documents related to the current problem(s) were reviewed or no documents were available for review. LABORATORY RESULT INTERPRETATION: No labs were reviewed/No labs available for review DIAGNOSIS: Diagnosis Plan 1. Closed fracture of distal end of left fibula, unspecified fracture morphology, initial encounter External referral to Physical Therapy 2. Acute left ankle pain MEDICAL DECISION MAKING: I had a discussion with Bree to make sure she has a good understanding of the diagnoses/issues that I think are present today and understands the plan moving forward. I explained to Bree that her fracture of the left lateral malleolus is in acceptable alignment and is progressively healing as expected As a result it was decided that Bree will stay in the aircast boot that she has been in. We discussed that she is most likely experiencing posterior tibial tendonitis causing the medial sided pain. She was given an order that physical therapy can resume at the facility. Bree was instructed to be partial weight bearing and can advance to full weight bearing as tolerated on the left lower extremity in the Aircast boot. If Bree has any problems maintaining this weight bearing status she was instructed to call me so that appropriate instructions can be given. Bree was instructed to continue to elevate the left lower extremity for comfort. I explained that elevation means keeping the toes at the level of her nose. If her leg is not elevated to that height then it is not truly elevated and she may continue to have swelling and discomfort as a result. I want to see Bree back in approximately 6 weeks for revaluation and she will need xrays consisting of 3 weight bearing views of the Left ankle If Bree feels that the above plan of treatment is going poorly or if she is having problems with the above plan he was instructed to call my office to determine if the plan of care needs to be changed or if she needs to be seen sooner than noted above. Follow up in about 6 weeks (around 11/25/2023) for Visit with Imaging. Electronically signed by LIA Champagne [facility] Department of Orthopedic surgery 10/14/2023 3:50 PM Voice recognition was used for portions of this note and although it was reviewed prior to signing some incorrect words or phrases could be present. documented in this encounter [facility] 09-03-2023 Telephone encounter Note Left distal fibula fx doi 07/02/23 she is in a boot. Can only be seen in [place] or [place]. No wads [facility] 09-03-2023 Miscellaneous Notes Left distal fibula fx doi 07/02/23 she is in a boot. Can only be seen in [place] or [place]. No wads Gareth an RN at [facility] called [phone] ext 2008, he states that they just got Bree from [place] and they are looking for her to follow up with a doctor. She broke her foot on 06/30/23 and she is still in a boot and is non weight bearing. He was looking to get information on Bree and to possibly get her scheduled. Bree is currently stating she does not want surgery, and he is going to check with her daughter. He doesn't know much about her since they just got her today. He is requesting a call back, he works until 2:30 today and then works again tomorrow. LVM to schedule with Dr. Ureña on Thursday at 1pm in [facility] or 9am in [place] if not already double booked. documented in this encounter [facility] 09-02-2023 Telephone encounter Note Gareth an RN at [facility] called [phone] ext 2008, he states that they just got Bree from [place] and they are looking for her to follow up with a doctor. She broke her foot on 06/30/23 and she is still in a boot and is non weight bearing. He was looking to get information on Bree and to possibly get her scheduled. Bree is currently stating she does not want surgery, and he is going to check with her daughter. He doesn't know much about her since they just got her today. He is requesting a call back, he works until 2:30 today and then works again tomorrow. [facility] 09-02-2023 Miscellaneous Notes Gareth an RN at [facility] called [phone] ext 2008, he states that they just got Bree from [place] and they are looking for her to follow up with a doctor. She broke her foot on 06/30/23 and she is still in a boot and is non weight bearing. He was looking to get information on Bree and to possibly get her scheduled. Bree is currently stating she does not want surgery, and he is going to check with her daughter. He doesn't know much about her since they just got her today. He is requesting a call back, he works until 2:30 today and then works again tomorrow. LVM to schedule with Dr. Ureña on Thursday at 1pm in [place] or 9am in [place] if not already double booked. documented in this encounter [facility] 07-17-2023 Telephone encounter Note LVM to schedule with Dr. Ureña on Thursday at 1pm in [place] or 9am in [place] if not already double booked. [facility] 07-03-2023 Hospital Discharge instructions Patient Education 07/03/2023 14:56:59 Urinary Tract Infection, Adult, [id number] Urinary Tract Infection, Adult A urinary tract infection (UTI) is an infection of any part of the urinary tract. The urinary tract includes: The kidneys. The ureters. The bladder. The urethra. These organs make, store, and get rid of pee (urine) in the body. What are the causes? This is caused by germs (bacteria) in your genital area. These germs grow and cause swelling (inflammation) of your urinary tract. What increases the risk? You are more likely to develop this condition if: You have a small, thin tube (catheter) to drain pee. You cannot control when you pee or poop (incontinence). You are female, and: ?You use these methods to prevent : ?A medicine that kills sperm (spermicide). ?A device that blocks sperm (diaphragm). ?You have low levels of a female hormone (estrogen). ?You are . You have genes that add to your risk. You are sexually active. You take antibiotic medicines. You have trouble peeing because of: ?A prostate that is bigger than normal, if you are male. ?A blockage in the part of your body that drains pee from the bladder (urethra). ?A kidney stone. ?A nerve condition that affects your bladder (neurogenic bladder). ?Not getting enough to drink. ?Not peeing often enough. You have other conditions, such as: ?Diabetes. ?A weak disease-fighting system (immune system). ?Sickle cell disease. ?Gout. ?Injury of the spine. What are the signs or symptoms? Symptoms of this condition include: Needing to pee right away (urgently). Peeing often. Peeing small amounts often. Pain or burning when peeing. Blood in the pee. Pee that smells bad or not like normal. Trouble peeing. Pee that is cloudy. Fluid coming from the vagina, if you are female. Pain in the belly or lower back. Other symptoms include: Throwing up (vomiting). No urge to eat. Feeling mixed up (confused). Being tired and grouchy (irritable). A fever. Watery poop (diarrhea). How is this treated? This condition may be treated with: Antibiotic medicine. Other medicines. Drinking enough water. Follow these instructions at home: Medicines Take [id number] and prescription medicines only as told by your doctor. If you were prescribed an antibiotic medicine, take it as told by your doctor. Do not stop taking it even if you start to feel better. General instructions Make sure you: ?Pee until your bladder is empty. ?Do not hold pee for a long time. ?Empty your bladder after sex. ?Wipe from front to back after pooping if you are a female. Use each tissue one time when you wipe. Drink enough fluid to keep your pee pale yellow. Keep all follow-up visits as told by your doctor. This is important. Contact a doctor if: You do not get better after 1 2 days. Your symptoms go away and then come back. Get help right away if: You have very bad back pain. You have very bad pain in your lower belly. You have a fever. You are sick to your stomach (nauseous). You are throwing up. Summary A urinary tract infection (UTI) is an infection of any part of the urinary tract. This condition is caused by germs in your genital area. There are many risk factors for a UTI. These include having a small, thin tube to drain pee and not being able to control when you pee or poop. Treatment includes antibiotic medicines for germs. Drink enough fluid to keep your pee pale yellow. This information is not intended to replace advice given to you by your health care provider. Make sure you discuss any questions you have with your health care provider. Document Released: 03/09/2009 Document Revised: 09/08/2019 Document Reviewed: 03/31/2019 [employer] Patient Education 2020 [employer] Follow Up Care 06/30/2023 15:11:52 With:LACI BREWERGAS [employer] Address: [address] [place] [address] [place] [phone]- [phone] When:3-5 days Comments:Please schedule a Follow up appt with your PCP after d/c. [facility] 07-03-2023 Note Discharge Instructions Thank you for allowing [facility] to assist you with your healthcare needs. The following is important discharge information regarding your hospital visit. Your Care Team Heather Hunt APRN Your Diagnosis Ankle pain-swelling Depression Fall Fibula fracture Hypertension Type 2 diabetes mellitus Urinary tract infection What to do next Scheduled Follow-Up Appointments Appointment Type When With Where Contact InformationPC 09/22/2023 11:30 AM LACI GÓMEZ [address] [phone] Follow Up Appointments Follow Up with LACI BREWER When Within 3-5 days Why: Please schedule a Follow up appt with your PCP after d/c. Where: [address] [place] [phone] The Following Activity and Diet Have Been Ordered for You Transfer of Care Activity - Ordered -- Non-Weight Bearing Activity Only, LLE, 07/03/23 14:47:00 EDT Transfer of Care Diet - Ordered -- Type of Diet: Regular Diet, 07/03/23 14:47:00 EDT The Following Treatments Have Been Ordered for You Discharge Labs No qualifying data available. Discharge Radiology No qualifying data available. Other Therapies Transfer of Care OT - Ordered -- Reason for therapy: weakness, 07/03/23 14:47:00 EDT Transfer of Care PT - Ordered -- Reason for therapy: Weakness, 07/03/23 14:47:00 EDT Post Acute Orders Transfer of Care Admission Level of Care - Ordered -- Level of Care SNF, 07/03/23 14:47:46 EDT Transfer of Care Code Status - Ordered -- Full Code, Constant Order Transfer of Care Orders Electronically Signed By - Ordered -- 07/03/23 14:47:00 EDTSUSANA RACHEL L APRN-CNP Transfer of Care Prognosis - Ordered -- Fair, Patient Aware: Yes Transfer of Care Rehab Potential - Ordered -- Rehab potential fair, 07/03/23 14:47:46 EDT Someone Will Contact You Regarding These Home Health Referrals No home referrals have been ordered for you. No one will call you. Allergies Tape (REDNESS & BLISTERS) Keflex (Hives) Latex (BLISTERS & REDNESS) sulfamethoxazole (Hives) Augmentin (Rash) ciprofloxacin (Rash) Farxiga (Rash) Percocet aspirin (Unknown) ibuprofen Medications Please ask your primary doctor or pharmacist before taking any other medication not listed, including over the counter drugs, herbal medications, vitamins and or supplements as they may interact with your home medications. What How Much When Why Instructions Last Dose New acetaminophen-hydrocodone ([place] 325- 5 mg oral tablet) 1 tab(s) by mouth Every 4 hours as needed for Pain, scale 4-6 Fibula fracture Duration: 3 Days 07/03/23 at 0652am New ceFAZolin (ceFAZolin 1 g injection) 1 gram(s) IV Piggyback Every 8 hours 07/03/23 at 1151am New clotrimazole topical (clotrimazole 1% topical cream) 1 application Topical Two (2) times a day none Unchanged alendronate (alendronate 70 mg oral tablet) 1 tab(s) by mouth Every week Osteopenia none Unchanged cholecalciferol (Vitamin D3 50 mcg (2000 intl units) oral tablet) 1 tab(s) by mouth Every day Vitamin D deficiency dose increase none Unchanged cholestyramine (cholestyramine 4 g/ 4.8 g oral powder for reconstitution) 8 gram(s) by mouth Two (2) times a day as needed for abdominal pain/diarrhea Diarrhea Duration: 90 Days none Unchanged DME (Blood Glucose Test Strips) See instructions Diabetes EA=BOX of 100 2x daily testing once touch untra blue dx: diabetes Unchanged DME (Lancets) See instructions Diabetes EA=BOX OF 100 ONETOUCH DELICA LANCETS FINE, 33 GA TO TEST BID Diabetes R11.9 Unchanged DME (Pen needles 8 mm) See instructions EA=ONE BOX OF 100, BID BD UF 8mm 31 G (short) qs 3 month supply Diabetes Mellitus E11.9 Unchanged DULoxetine (DULoxetine 60 mg oral delayed release capsule) 1 cap by mouth Daily at bedtime Depression Osteoarthritis of multiple joints none today Unchanged gabapentin (gabapentin 400 mg oral capsule) 1 cap by mouth Three (3) times a day Diabetic neuropathy Duration: 90 Days 07/03/23 at 0758 and 1428 Unchanged losartan (losartan 100 mg oral tablet) 1 tab(s) by mouth Every day Hypertension 07/03/23 at 0758 Unchanged metFORMIN (metFORMIN 1000 mg oral tablet (IR)) 1 tab(s) by mouth Two (2) times a day Diabetes mellitus 07/03/23 at 0758 Unchanged semaglutide (Ozempic 8 mg/ 3 mL (2 mg dose) subcutaneous solution) 2 Milligram Subcutaneous Every week Type 2 diabetes mellitus Duration: 90 Days in the abdomen, thigh, or upper arm none Unchanged simvastatin (simvastatin 5 mg oral tablet) 1 tab(s) by mouth Daily at bedtime Type 2 diabetes mellitus none today Unchanged traZODone (traZODone 100 mg oral tablet) 1 tab(s) by mouth Daily at bedtime Insomnia none today What How Much When Why Comments Stop Taking acetaminophen (acetaminophen 500 mg oral tablet) 2 tab(s) by mouth Three (3) times a day as needed for pain or fever Stop Taking calcium carbonate (calcium (as carbonate) 600 mg oral tablet) 2 tab(s) by mouth Once a day Stop Taking nitrofurantoin (Macrobid 100 mg oral capsule) 1 cap by mouth Two (2) times a day UTI (urinary tract infection) Duration: 5 Days Take with food Please take this list to your next doctor s visit. Bring all medications you take, including over the counter medications, herbals and other supplements with you to your doctor s visit. Patients and families are reminded to discard old lists and to update any records with all medication providers or retail pharmacies. Education Materials Urinary Tract Infection, Adult A urinary tract infection (UTI) is an infection of any part of the urinary tract. The urinary tract includes: The kidneys. The ureters. The bladder. The urethra. These organs make, store, and get rid of pee (urine) in the body. What are the causes? This is caused by germs (bacteria) in your genital area. These germs grow and cause swelling (inflammation) of your urinary tract. What increases the risk? You are more likely to develop this condition if: You have a small, thin tube (catheter) to drain pee. You cannot control when you pee or poop (incontinence). You are female, and: ? You use these methods to prevent : ? A medicine that kills sperm (spermicide). ? A device that blocks sperm (diaphragm). ? You have low levels of a female hormone (estrogen). ? You are . You have genes that add to your risk. You are sexually active. You take antibiotic medicines. You have trouble peeing because of: ? A prostate that is bigger than normal, if you are male. ? A blockage in the part of your body that drains pee from the bladder (urethra). ? A kidney stone. ? A nerve condition that affects your bladder (neurogenic bladder). ? Not getting enough to drink. ? Not peeing often enough. You have other conditions, such as: ? Diabetes. ? A weak disease-fighting system (immune system). ? Sickle cell disease. ? Gout. ? Injury of the spine. What are the signs or symptoms? Symptoms of this condition include: Needing to pee right away (urgently). Peeing often. Peeing small amounts often. Pain or burning when peeing. Blood in the pee. Pee that smells bad or not like normal. Trouble peeing. Pee that is cloudy. Fluid coming from the vagina, if you are female. Pain in the belly or lower back. Other symptoms include: Throwing up (vomiting). No urge to eat. Feeling mixed up (confused). Being tired and grouchy (irritable). A fever. Watery poop (diarrhea). How is this treated? This condition may be treated with: Antibiotic medicine. Other medicines. Drinking enough water. Follow these instructions at home: Medicines Take [id number] and prescription medicines only as told by your doctor. If you were prescribed an antibiotic medicine, take it as told by your doctor. Do not stop taking it even if you start to feel better. General instructions Make sure you: ? Pee until your bladder is empty. ? Do not hold pee for a long time. ? Empty your bladder after sex. ? Wipe from front to back after pooping if you are a female. Use each tissue one time when you wipe. Drink enough fluid to keep your pee pale yellow. Keep all follow-up visits as told by your doctor. This is important. Contact a doctor if: You do not get better after 1 2 days. Your symptoms go away and then come back. Get help right away if: You have very bad back pain. You have very bad pain in your lower belly. You have a fever. You are sick to your stomach (nauseous). You are throwing up. Summary A urinary tract infection (UTI) is an infection of any part of the urinary tract. This condition is caused by germs in your genital area. There are many risk factors for a UTI. These include having a small, thin tube to drain pee and not being able to control when you pee or poop. Treatment includes antibiotic medicines for germs. Drink enough fluid to keep your pee pale yellow. This information is not intended to replace advice given to you by your health care provider. Make sure you discuss any questions you have with your health care provider. Document Released: 03/09/2009 Document Revised: 09/08/2019 Document Reviewed: 03/31/2019 [employer] Patient Education 2020 [employer]. Additional Information VACCINATE! IT SAVES LIVES! Members of the community who have not yet received the COVID-19 vaccine and would like to receive it can visit one of [facility] vaccine clinics. There are many vaccine clinic locations within the [facility]. For locations and available times, please visit https://gettheshot.coronavirus.[place].gov/. It is important to note that some COVID mobile vaccine clinics are held outdoors and may be canceled in rainy or stormy conditions. To learn more about pediatric vaccinations (ages 5-11), we invite you to visit the [facility] webpage. [email or web address] To learn more about the COVID-19 vaccine, we invite you to visit the CDC website for a list of frequently asked questions.https://www.cdc.gov/cor onavirus/2019-ncov/vaccines/faq.h tml [facility] Patient Portal Access Instructions: Stay connected with your healthcare team and access your personal medical information anytime with the [facility] [facility] Patient Portal. Please follow the directions below to create your [employer] account: 1.Access the email account you provided upon registration to the hospital/physician office.2.Look for an invitation email from [facility].3.Open the email and access the invitation link: Accept Invitation to [employer].4.Fill in the required correa to create your account. To access your account, visit [email or web address]. Click the blue button labeled Access Patient Portal and then log in with the username and password that you created in the steps above. You will be able to view your test results, lab results, a summary of your visits, upcoming appointments and more. There is also a convenient messaging option where you can send secure messages to your provider. In addition, you will have the ability to download any documents or summaries to your computer and/or send the information securely to a physician. Remember that your healthcare information is confidential, so carefully consider who you will allow to register on the [facility] Patient Portal for access to your information. You can also access the [facility] on the [employer] calos. Simply click on Patient Portal and then log into your account. If you would like to receive a full copy of your medical records, please contact the [facility] Medical Records Department by calling [phone], Thursday through Thursday between 8 a.m. and 4:30 p.m. HOW TO SAFELY DISPOSE OF PRESCRIPTION MEDICATIONS Please use one of the following methods to safely dispose of your unused medications. 1.Use a drug disposal kit: the drug disposal pouch allows you to safely discard your old and unused drugs. Ask your nurse to give you one when you are discharged.2.Visit a local take-back location: Many local pharmacies and police departments have programs that collect old and unwanted prescription drugs. Call your local pharmacy or go to http://[employer]/9C4Gf9s to find one close to you.3.Make use of household items: Use cat litter or old coffee grounds to dispose medications if other options are not available. Mix your drugs with these household products, seal them in an airtight container and throw it into the garbage. Call [facility]: [phone] to be sure your drugs can be disposed of in this way. Some medicines may require a different approach.4.Never flush your medications down the toilet. IF YOU HAVE BEEN PRESCRIBED AN OPIOID FOR PAIN If you have been prescribed an opioid (such as hydrocodone, oxycodone or morphine), it is critical to understand the possible side effects and risks of opioid pain medications. Even when taken as directed, opioids can have several side effects including: Tolerance, meaning you might need to take more of a medication for the same pain relief. Nausea, vomiting and/or constipation. Sleepiness, dizziness, dry mouth, confusion, depression or itching. Physical dependence, meaning you have withdrawal symptoms when a medication is stopped, can develop within a few days. KNOW YOUR RESPONSIBILITIES It is important to know exactly how much and how often to take the opioid pain medications you are prescribed. Never take opioids in higher amounts or more often than prescribed. Do not combine opioids with alcohol or other drugs that cause drowsiness, such as benzodiazepines, also known as benzos, including diazepam and alprazolam, muscle relaxants or sleep aids. Never sell or share prescription opioids. This is illegal. Store opioids in a secure place and out of reach of others (including children, family, friends and visitors). The last page of this document has been signed and retained as a CHART COPY. Signatures Patient Education Materials Urinary Tract Infection, Adult, [place] Medication Leaflets My discharge plan and instructions have been reviewed and explained to me and I,BREE BUSTAMANTE understand my current condition and have read and understand these discharge instructions. I have received a written copy of the plan/instructions. If I have questions, I am aware that I should contact my doctor. 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 Next Patient presented to [facility] emergency department on 06/30/2023 with left ankle pain after sustaining a mechanical fall. She had an episode of bowel incontinence. She fell while attempting to clean the floor. In the emergency department x-ray left ankle and foot show obliquely oriented fracture of the distal fibula that extends through the syndesmosis level. Disruption of the ankle mortise with widening of the anterior tibiotalar joint space. No definite fracture seen of the posterior or medial malleoli but ligamentous injury is suspected. Patient was subsequently admitted with orthopedic consultation. Patient was seen by Dr. Duncan who recommends nonweightbearing status x6 weeks. Urine culture came back positive for Klebsiella pneumoniae. She has no leukocytosis. Afebrile and hemodynamically stable. Denies any urinary symptoms currently. Pain was not well controlled with Mon[place]ans alone. Objective Vitals and Measurements T: 36.6 C (Oral) TMIN: 36.6 C (Oral) TMAX: 37.0 C (Oral) HR: 75(Apical) RR: 20 BP: 126/48 SpO2: 93% WT: 130.0 kg Intake and Output 7AM Yesterday to 7AM Today Intake and Output (Last 24 hours) Intake Oral Intake 500.00 Output Stool Count 1.00 Urine Count 4.00 Total Summary Total Intake 500.00 Total Output 0.00 Fluid Balance 500.00 Physical Exam GEN: Appears chronically ill CHEST: Normal S1 and S2. Rhythm is regular. Clear to auscultation, without rales, rhonchi, wheezing. ABD: Positive bowel sounds x 4 quads. Soft, nondistended, nontender. EXT: Left lower extremity externally rotated at baseline.. No edema. Peripheral pulses intact. NEURO: Sensation grossly intact SKIN: Skin color normal PSYCH: The mental examination revealed the patient was alert and oriented x 4. Tearful over her current situation. Weight Current Weight Dosing Weight: 128 kg (06/30/23) Current Weight: 130 kg (07/03/23) Current Weight: 128.4 kg (07/02/23) Medications Medications (20) Active Scheduled: (10) atorvastatin 10 mg tablet 20 mg 2 tab(s), Oral, qHS ceFAZolin 1 gram(s), IV Piggyback, q8h duloxetine [address] capsule 60 mg 1 cap(s), Oral, qHS gabapentin 400 mg capsule 400 mg 1 cap(s), Oral, TID heparin 5,000 units/mL (1 mL) vial 5,000 unit(s) 1 mL, Subcutaneous, q12h insulin lispro 100 units/mL Soln (3 mL) Give 0-5 units/dose, Subcutaneous, TIDAC ketorolac 30 mg/mL (1 mL) vial 15 mg 0.5 mL, IV Push, q6hr losartan 50 mg tablet 100 mg 2 tab(s), Oral, Daily metformin 500 mg Tablet 1,000 mg 2 tab(s), Oral, BID traZODONE 50 mg Tablet 100 mg 2 tab(s), Oral, qHS Continuous: (0) PRN: (10) acetaminophen 325 mg Tablet 650 mg 2 tab(s), Oral, q4h acetaminophen 325 mg Tablet 650 mg 2 tab(s), Oral, q4h acetaminophen-HYDROcodone 325-5 mg tablet 1 tab(s), Oral, q4h acetaminophen-HYDROcodone 325-5 mg tablet 2 tab(s), Oral, q6hr benzonatate 100 mg Capsule 100 mg 1 cap(s), Oral, TID calcium carbonate 500 mg Chewable 500 mg 1 tab(s), Chewed, TID cholestyramine 4 g/9 g REC packet 8 gram(s) 2 packet(s), Oral, BID guaifenesin 100 mg/5 mL 120 mL liquid 200 mg 10 mL, Oral, q4h melatonin 3 mg tablet 6 mg 2 tab(s), Oral, qHS ondansetron 2 mg/ 1 mL 2 mL INJ 4 mg 2 mL, IV Push, q4h Lab Results 07/03 05:26 WBC: 5.8 Hgb: 11.6 L Hct: 36.4 L Platelet: 158 Neutrophil %: 55.0 Glucose Level: 165 H Sodium Level: 140 Potassium Level: 4.6 BUN: 8 Creatinine Lvl (s): 0.74 07/02 05:18 WBC: 5.5 Hgb: 11.3 L Hct: 35.7 L Platelet: 159 Neutrophil %: 52.7 Glucose Level: 144 H Sodium Level: 138 Potassium Level: 3.9 BUN: 9 Creatinine Lvl (s): 0.79 Imaging Results and Diagnostics XR Ankle and Foot 6 Views Left Result Date: June 30, 2023 Verified By: NADIR PAT MD CLINICAL STATEMENT: IMPRESSION: Obliquely oriented fracture of the distal fibula extends through thesyndesmosis level. There is disruption of the ankle mortise with widening ofthe anterior tibiotalar joint space. No definite fracture seen of theposterior or medial malleoli but ligamentous injury is suspected XR Knee 1 or 2 Views Left Result Date: June 30, 2023 Verified By: DELONTE OLVERA, NADIR Romero CLINICAL STATEMENT: IMPRESSION: Intact left knee arthroplasty Surgical wire projecting in the anterior joint space is similar to the priorstudy Assessment/Plan 1. Fibula fracture 2. Urinary tract infection 3. Type 2 diabetes mellitus 4. Hypertension Distal fibula fracture Per Dr. Duncan, nonweightbearing status for 6 weeks. Monahans for pain. Patient has a documented allergy to oxycodone. Add Toradol for pain control. Plan for transfer to SNF. UTI urine culture Is growing Klebsiella pneumoniae. Start cefazolin 1 g every 8 hours x7 days. Discontinue nitrofurantoin. Type 2 diabetes mellitus- Glucose goal 180 or less and avoid hypoglycemia. Corrective sliding scale insulin. ADA diet. HTN- SBP goal 140 or less. Continue home antihypertensives. DVT prophylaxis: Heparin subcutaneous Code Status: Full code Plan of care discussed with patient. All questions answered. Patient verbalizes understanding is agreeable to plan of care. This dictation was performed using voice recognition software and may include grammatical and/or spelling errors. Time Spent 36 minutes was spent in [id number] time and coordination of care for this patient, including but not limited to personally gathering history, examining the patient, reviewing labs and images and records, counseling patient and/or family about diagnosis and potential workup if applicable, as detailed above as well as discussing the case with patient's interdisciplinary team where applicable. Digitally Signed by HEATHER HUNT on 07/03/2023 01:33 PM [facility] 07-02-2023 Note Date of Service 07/02/2023 Chief Complaint Fall Subjective 78-year-old female with past medical history significant for HTN, HLD, type 2 diabetes mellitus, morbid obesity. Next Patient presented to [facility] emergency department on 06/30/2023 with left ankle pain after sustaining a mechanical fall. She had an episode of bowel incontinence. She fell while attempting to clean the floor. In the emergency department x-ray left ankle and foot show obliquely oriented fracture of the distal fibula that extends through the syndesmosis level. Disruption of the ankle mortise with widening of the anterior tibiotalar joint space. No definite fracture seen of the posterior or medial malleoli but ligamentous injury is suspected. Patient was subsequently admitted with orthopedic consultation. Patient was seen by Dr. Duncan who recommends nonweightbearing status x6 weeks. Magnesium level low at 1.7 this morning. She has been afebrile and hemodynamically stable with adequate oxygen saturations on room air during the day. She is utilizing O2 via nasal cannula at at bedtime. Patient denies any fever or chills. No chest pain or palpitations. No cough, wheeze. She is having pain in the left leg. Objective Vitals and Measurements T: 36.6 C (Oral) TMIN: 36.5 C (Oral) TMAX: 37.1 C (Oral) HR: 77(Apical) RR: 20 BP: 150/49 SpO2: 94% WT: 128.4 kg Intake and Output 7AM Yesterday to 7AM Today Intake and Output (Last 24 hours) Intake Oral Intake 600.00 Output Urine Count 1.00 Total Summary Total Intake 600.00 Total Output 0.00 Fluid Balance 600.00 Physical Exam GEN: Appears chronically ill CHEST: Normal S1 and S2. Rhythm is regular. Clear to auscultation, without rales, rhonchi, wheezing. ABD: Positive bowel sounds x 4 quads. Soft, nondistended, nontender. EXT: Left lower extremity externally rotated at baseline.. No edema. Peripheral pulses intact. NEURO: Sensation grossly intact SKIN: Skin color normal PSYCH: The mental examination revealed the patient was alert and oriented x 4. Tearful over her current situation. Weight Current Weight Dosing Weight: 128 kg (06/30/23) Current Weight: 128.4 kg (07/02/23) Medications Medications (19) Active Scheduled: (9) atorvastatin 10 mg tablet 20 mg 2 tab(s), Oral, qHS duloxetine [address] capsule 60 mg 1 cap(s), Oral, qHS gabapentin 400 mg capsule 400 mg 1 cap(s), Oral, TID heparin 5,000 units/mL (1 mL) vial 5,000 unit(s) 1 mL, Subcutaneous, q12h insulin lispro 100 units/mL Soln (3 mL) Give 0-5 units/dose, Subcutaneous, TIDAC losartan 50 mg tablet 100 mg 2 tab(s), Oral, Daily metformin 500 mg Tablet 1,000 mg 2 tab(s), Oral, BID nitrofurantoin macrocrystals 50 mg capsule 50 mg 1 cap(s), Oral, QID traZODONE 50 mg Tablet 100 mg 2 tab(s), Oral, qHS Continuous: (0) PRN: (10) acetaminophen 325 mg Tablet 650 mg 2 tab(s), Oral, q4h acetaminophen 325 mg Tablet 650 mg 2 tab(s), Oral, q4h acetaminophen-HYDROcodone 325-5 mg tablet 1 tab(s), Oral, q4h acetaminophen-HYDROcodone 325-5 mg tablet 2 tab(s), Oral, q6hr benzonatate 100 mg Capsule 100 mg 1 cap(s), Oral, TID calcium carbonate 500 mg Chewable 500 mg 1 tab(s), Chewed, TID cholestyramine 4 g/9 g REC packet 8 gram(s) 2 packet(s), Oral, BID guaifenesin 100 mg/5 mL 120 mL liquid 200 mg 10 mL, Oral, q4h melatonin 3 mg tablet 6 mg 2 tab(s), Oral, qHS ondansetron 2 mg/ 1 mL 2 mL INJ 4 mg 2 mL, IV Push, q4h Lab Results 07/02 05:18 WBC: 5.5 Hgb: 11.3 L Hct: 35.7 L Platelet: 159 Neutrophil %: 52.7 Glucose Level: 144 H Sodium Level: 138 Potassium Level: 3.9 BUN: 9 Creatinine Lvl (s): 0.79 07/01 05:30 WBC: 6.9 Hgb: 11.6 L Hct: 36.2 L Platelet: 170 Neutrophil %: 58.9 Glucose Level: 138 H Sodium Level: 140 Potassium Level: 4.0 BUN: 11 Creatinine Lvl (s): 0.90 Imaging Results and Diagnostics XR Ankle and Foot 6 Views Left Result Date: June 30, 2023 Verified By: NADIR PAT MD CLINICAL STATEMENT: IMPRESSION: Obliquely oriented fracture of the distal fibula extends through thesyndesmosis level. There is disruption of the ankle mortise with widening ofthe anterior tibiotalar joint space. No definite fracture seen of theposterior or medial malleoli but ligamentous injury is suspected XR Knee 1 or 2 Views Left Result Date: June 30, 2023 Verified By: NADIR PAT MD CLINICAL STATEMENT: IMPRESSION: Intact left knee arthroplasty Surgical wire projecting in the anterior joint space is similar to the priorstudy Assessment/Plan 1. Fibula fracture 2. Urinary tract infection 3. Type 2 diabetes mellitus 4. Hypertension Distal fibula fracture Per Dr. Duncan, nonweightbearing status for 6 weeks. Monahans for pain. Patient has a documented allergy to oxycodone. Plan for transfer to SNF. UTI Macrobid 50 mg 4 times daily. She is afebrile and hemodynamically stable. Has urinary frequency. No dysuria. Type 2 diabetes mellitus- Glucose goal 180 or less and avoid hypoglycemia. Corrective sliding scale insulin. ADA diet. HTN- SBP goal 140 or less. Continue home antihypertensives. DVT prophylaxis: Heparin subcutaneous Code Status: Full code Plan of care discussed with patient. All questions answered. Patient verbalizes understanding is agreeable to plan of care. This dictation was performed using voice recognition software and may include grammatical and/or spelling errors. Time Spent 36 minutes Digitally Signed by HEATHER HUNT on 07/02/2023 04:17 PM [facility] 07-02-2023 Note . MICRO - Microbiology PROCEDURE: Urine Culture [*1] SOURCE: Urine, Clean Catch BODY SITE: COLLECTED DATE/TIME: 06/30/2023 16:56 EDT RECEIVED DATE/TIME: 06/30/2023 22:21 EDT START DATE/TIME: 06/30/2023 22:22 EDT FREE TEXT SOURCE: FINAL REPORTS Final Report [] Verified Date/Time/Personnel: 07/02/2023 07:55 EDT >100,000 cfu/ml Klebsiella pneumoniae PRELIMINARY REPORTS Preliminary Report [] Verified Date/Time/Personnel: 07/01/2023 11:02 EDT >100,000 cfu/ml Klebsiella pneumoniae PREM to follow SUSCEPTIBILITY RESULTS Klebsiella pneumoniae Antibiotic PREM Dilut PREM Inter Ampicillin >16 Resistant Ampicillin/ <=4/2 Susceptible Sulbactam Aztreonam <=4 Susceptible Cefazolin <=2 Susceptible Ciprofloxacin <=0.25 Susceptible Ertapenem <=0.5 Susceptible Gentamicin <=2 Susceptible Imipenem <=1 Susceptible Levofloxacin <=0.5 Susceptible Meropenem <=1 Susceptible Minocycline <=4 Susceptible Nitrofurantoin 64 Intermediate Piperacillin/ <=8 Susceptible Tazobactam Trimethoprim/ <=0.5/9.5 Susceptible Sulfa Performing Locations *1: This test was performed at: [facility], [address] [place] [address], [phone] , [facility] ([place]) 07-01-2023 Note Date of Service 07/01/2023 Chief Complaint Left ankle pain Subjective Patient seen and evaluated this morning while resting in bed. She states that she is still having a lot of pain in her left ankle despite it being splinted in the ED yesterday. She does feel that the Monahans is effective for her. She is waiting to see Dr. Duncan, orthopedics, for recommendation. Patient advised that, if nothing surgical can be done, she will likely have to go to a SNF until she can bear weight again on that leg. We still have to wait though for Dr. Duncan's recommendation but something to think about. Patient states that she has been to [facility] before and would be willing to go there. She denies any new problems or concerns this morning. She further denies any fever, chills, cough, shortness of breath, chest pain, abdominal pain, nausea or dysuria. All questions answered. PT and OT were planning to hold off evaluating patient until she is seen by orthopedics. Objective Vitals and Measurements T: 36.6 C (Oral) TMIN: 36.5 C (Oral) TMAX: 37 C (Oral) HR: 72(Apical) RR: 20 BP: 111/60 SpO2: 93% HT: 160 cm WT: 128 kg BMI: 50 Intake and Output 7AM Yesterday to 7AM Today Intake and Output (Last 24 hours) Intake Output Urine Count 5.00 Total Summary Total Intake 0.00 Total Output 0.00 Fluid Balance 0.00 Physical Exam General: No acute distress. Patient is alert and appropriate. Skin: No rash. Skin is warm, dry and intact. HEENT: Head is normocephalic, atraumatic. Pupils are equal, round and reactive. Neck: Supple. No lymphadenopathy, thyromegaly. Lungs: Bilaterally clear but diminished without crepitation or wheeze. Unlabored. Heart: Heart is regular rhythm, S1, S2. No murmurs, gallops or rubs. Abdomen: Abdomen is soft, nontender, obese. Bowels sounds present in all quadrants. Extremities: No clubbing, cyanosis, or edema. Peripheral pulses palpable. No calf tenderness. Left leg externally rotated - patient states chronic. Neurological: Patient is awake and alert to person, place and time. Following simple commands, moving all extremities. Weight Dosing Weight: 128 kg (06/30/23) Medications Medications (19) Active Scheduled: (9) atorvastatin 10 mg tablet 20 mg 2 tab(s), Oral, qHS duloxetine [address] capsule 60 mg 1 cap(s), Oral, qHS gabapentin 400 mg capsule 400 mg 1 cap(s), Oral, TID heparin 5,000 units/mL (1 mL) vial 5,000 unit(s) 1 mL, Subcutaneous, q12h insulin lispro 100 units/mL Soln (3 mL) Give 0-5 units/dose, Subcutaneous, TIDAC losartan 50 mg tablet 100 mg 2 tab(s), Oral, Daily metformin 500 mg Tablet 1,000 mg 2 tab(s), Oral, BID nitrofurantoin macrocrystals 50 mg capsule 50 mg 1 cap(s), Oral, QID traZODONE 50 mg Tablet 100 mg 2 tab(s), Oral, qHS Continuous: (0) PRN: (10) acetaminophen 325 mg Tablet 650 mg 2 tab(s), Oral, q4h acetaminophen 325 mg Tablet 650 mg 2 tab(s), Oral, q4h acetaminophen-HYDROcodone 325-5 mg tablet 1 tab(s), Oral, q4h acetaminophen-HYDROcodone 325-5 mg tablet 2 tab(s), Oral, q6hr benzonatate 100 mg Capsule 100 mg 1 cap(s), Oral, TID calcium carbonate 500 mg Chewable 500 mg 1 tab(s), Chewed, TID cholestyramine 4 g/9 g REC packet 8 gram(s) 2 packet(s), Oral, BID guaifenesin 100 mg/5 mL 120 mL liquid 200 mg 10 mL, Oral, q4h melatonin 3 mg tablet 6 mg 2 tab(s), Oral, qHS ondansetron 2 mg/ 1 mL 2 mL INJ 4 mg 2 mL, IV Push, q4h Lab Results 07/01 05:30 WBC: 6.9 Hgb: 11.6 L Hct: 36.2 L Platelet: 170 Neutrophil %: 58.9 Glucose Level: 138 H Sodium Level: 140 Potassium Level: 4.0 BUN: 11 Creatinine Lvl (s): 0.90 06/30 16:59 WBC: 9.9 Hgb: 13.4 Hct: 42.0 Platelet: 188 Neutrophil %: 71.8 Glucose Level: 147 H Sodium Level: 139 Potassium Level: 3.8 BUN: 9 Creatinine Lvl (s): 0.88 Imaging Results and Diagnostics XR Ankle and Foot 6 Views Left Result Date: June 30, 2023 Verified By: NADIR PAT MD CLINICAL STATEMENT: IMPRESSION: Obliquely oriented fracture of the distal fibula extends through the syndesmosis level. There is disruption of the ankle mortise with widening of the anterior tibiotalar joint space. No definite fracture seen of the posterior or medial malleoli but ligamentous injury is suspected XR Knee 1 or 2 Views Left Result Date: June 30, 2023 Verified By: NADIR PAT MD CLINICAL STATEMENT: IMPRESSION: Intact left knee arthroplasty Surgical wire projecting in the anterior joint space is similar to the prior study EKG No qualifying data available. Assessment/Plan 1. Ankle pain-swelling Acute, s/p mechanical fall at home *X-ray of left ankle reveals fracture of distal fibula. *Consult Dr. Jose Duncan, orthopedics, for recommendation. *Patient is non weightbearing to left ankle. *Consult placed to PT and OT to evaluate and treat - holding off until seen by ortho. *dining services manager consulted for discharge planning. *Continue PO pain medication. *Check CBC and BMP in the am. 2. Fall Mechanical fall at home today. *Plan as above. 3. Urinary tract infection Acute, new onset *Patient was started on Macrobid 100 mg PO BID yesterday by PCP. Continue here. 4. Type 2 diabetes mellitus Chronic *Blood sugar checks before meals and at bedtime. *Cover with sliding scale insulin. *Continue diabetic diet. *Blood sugar goal of 180 or less and avoid hypoglycemia. Ordered: 5. Hypertension Chronic *Continue current antihypertensives. *SBP goal of 140 or less. Ordered: 6. Depression Chronic *Continue current home medications. DVT prophylaxis with heparin sc. Code status: Full Code. Labs, diagnostic test and progress notes reviewed as noted in HPI. Plan of care discussed with patient. All questions answered. Patient verbalizes understanding and is agreeable with plan of care. This case was discussed with collaborating physician, Dr. Norbert Robb. Ordered: Time Spent 35 minutes spent reviewing past diagnostic tests, reviewing lab results, vital sign trends, medical history, reviewing medications and ordering home medications, discussing plan of care with nursing, licensed social worker, and therapy, examining patient, collaborating with physician, and documenting in chart. Digitally Signed by ROHAN MCDOWELL on 07/01/2023 04:17 PM [facility] 06-30-2023 Note Date of Service 06/30/2023 Chief Complaint Patient fell at home and is complaining of left-sided ankle pain. History of Present Illness Patient is an 78-year-old female, who follows with Laci Brewer CNP with a past medical history significant for hypertension, hyperlipidemia, type 2 diabetes and morbid obesity, presented to [facility] emergency department with the chief complaint of fall. Patient states that she had diarrhea and was rushing to get to the bathroom. She became incontinent of stool on the way to the bathroom. After she was done, she cleaned up the floor but ended up slipping and falling injuring her left ankle. Patient called EMS to bring her to the hospital to be evaluated. Patient denies any dizziness or lightheadedness preceding the fall and reiterates that it was mechanical. She further denies any fever, chills, cough, shortness of breath, chest pain, abdominal pain, nausea or dysuria. She is not sure why she had diarrhea today but states that is not unusual for her. In the emergency department, x-ray of the left ankle/foot revealed obliquely oriented fracture of the distal fibula extends through the syndesmosis level. There is disruption of the ankle mortise with widening of the anterior tibiotalar joint space. No definite fracture seen of the posterior or medial malleoli but ligamentous injury is suspected. X-ray of the left knee shows an intact left knee arthroplasty. No labs were drawn in the ED. The ED physician did speak to Dr. Jose Duncan, orthopedics, who recommending splinting the left ankle as well as keeping patient nonweightbearing to the left ankle. Patient lives alone and was referred to hospitalist service for admission for orthopedics consult as well as PT and OT evaluation. Patient will be transferred to medical surgical unit for observation. We will consult Dr. Jose Duncan, orthopedics, for recommendation. We will continue PO pain medication and antiemetics. We will consult PT and OT to evaluate and treat. We will consult licensed social worker for discharge planning. Check CBC and BMP in the am. Review of Systems Review of Systems: Reviewed in detail, including general health, HEENT, cardiovascular, respiratory, gastrointestinal, genitourinary, endocrine, musculoskeletal, neurologic, vascular, skin, and psychiatric. All are negative except for those listed in the History of Present Illness. Physical Exam Vitals and Measurements T: 36.4 C (Oral) HR: 92 RR: 18 BP: 146/76 SpO2: 94% No qualifying data available. General: No acute distress. Patient is alert and appropriate. Skin: No rash. Skin is warm, dry and intact. HEENT: Head is normocephalic, atraumatic. Pupils are equal, round and reactive. Neck: Supple. No lymphadenopathy, thyromegaly. Lungs: Bilaterally clear but diminished without crepitation or wheeze. Unlabored. Heart: Heart is regular rhythm, S1, S2. No murmurs, gallops or rubs. Abdomen: Abdomen is soft, nontender, obese. Bowels sounds present in all quadrants. Extremities: No clubbing, cyanosis; generalized edema noted around left ankle. Left lower extremity discolored. Peripheral pulses palpable. No calf tenderness. Neurological: Patient is awake and alert to person, place and time. Following simple commands, moving all extremities. Lab Results No 36 Hour Lab Data Imaging Results and Diagnostics XR Ankle and Foot 6 Views Left Result Date: June 30, 2023 Verified By: NADIR PAT MD CLINICAL STATEMENT: IMPRESSION: Obliquely oriented fracture of the distal fibula extends through the syndesmosis level. There is disruption of the ankle mortise with widening of the anterior tibiotalar joint space. No definite fracture seen of the posterior or medial malleoli but ligamentous injury is suspected XR Knee 1 or 2 Views Left Result Date: June 30, 2023 Verified By: NADIR PAT MD CLINICAL STATEMENT: IMPRESSION: Intact left knee arthroplasty Surgical wire projecting in the anterior joint space is similar to the prior study Assessment/Plan 1. Ankle pain-swelling Acute, s/p mechanical fall at home *X-ray of left ankle reveals fracture of distal fibula. *Consult Dr. Jose Duncan, orthopedics, for recommendation. *Patient is non weightbearing to left ankle. *Consult placed to PT and OT to evaluate and treat. *dining services manager consulted for discharge planning. *Continue PO pain medication. *Check CBC and BMP in the am. 2. Fall Mechanical fall at home today. *Plan as above. 3. Type 2 diabetes mellitus Chronic *Blood sugar checks before meals and at bedtime. *Cover with sliding scale insulin. *Start diabetic diet. *Blood sugar goal of 180 or less and avoid hypoglycemia. 4. Hypertension Chronic *Continue current antihypertensives. *SBP goal of 140 or less. 5. Depression Chronic *Continue current home medications. DVT prophylaxis with heparin sc. Code status: Full Code. Labs, diagnostic test and progress notes reviewed as noted in HPI. Plan of care discussed with patient. All questions answered. Patient verbalizes understanding and is agreeable with plan of care. This case was discussed with collaborating physician, Dr. Norbert Robb. 55 minutes spent reviewing past diagnostic tests, reviewing lab results, vital sign trends, medical history, reviewing medications and ordering home medications, examining patient, reviewing PCP notes, past labs, collaborating with physician, and documenting in chart. 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 Osteopenia Peripheral neuropathy Type 2 diabetes mellitus Urinary incontinence Historical Neuropathy PE (pulmonary embolism) Subdural hematoma Transient ischaemic attack Procedure/Surgical History Cataract extraction: 04/2023 Eye examination, DM: 02/09/20 Knee replacement, bilateral: 03/22/07 [place] Arthroplasty of knee: 03/05/07 delivery: 1970 Cholecystectomy Hysterectomy Lithotripsy of kidney Cataract Tonsillectomy Sling Medications Home Medications (16) Active acetaminophen 500 mg oral tablet 1,000 mg = 2 tab(s), PRN, Oral, TID alendronate 70 mg oral tablet 70 mg = 1 tab(s), Oral, qWeek Blood Glucose Test Strips See Instructions calcium (as carbonate) 600 mg oral tablet 1,200 mg = 2 tab(s), Oral, qDay cholestyramine 4 g/4.8 g oral powder for reconstitution 8 gram(s), PRN, Oral, BID DULoxetine 60 mg oral delayed release capsule 60 mg = 1 cap(s), Oral, qHS gabapentin 400 mg oral capsule 400 mg = 1 cap(s), Oral, TID Lancets See Instructions losartan 100 mg oral tablet 100 mg = 1 tab(s), Oral, Daily Macrobid 100 mg oral capsule 100 mg = 1 cap(s), Oral, BID metFORMIN 1000 mg oral tablet (IR) 1,000 mg = 1 tab(s), Oral, BID Ozempic 8 mg/3 mL (2 mg dose) subcutaneous solution 2 mg, Subcutaneous, qWeek Pen needles 8 mm See Instructions simvastatin 5 mg oral tablet 5 mg = 1 tab(s), Oral, qHS traZODone 100 mg oral tablet 100 mg = 1 tab(s), Oral, qHS Vitamin D3 50 mcg (2000 intl units) oral tablet 2,000 unit(s) = 1 tab(s), Oral, Daily Allergies Tape (REDNESS & BLISTERS) Latex (BLISTERS & REDNESS) Augmentin Farxiga (Rash) Keflex Percocet aspirin (Unknown) ciprofloxacin ibuprofen sulfamethoxazole Social History Smoking Status - 01/11/2016 Former smoker Alcohol Use: Never., 04/06/2019 Use: Never., 04/06/2019 Home/Environment Self Primary [employer] Bander:., 04/06/2019 Nutrition/Health Type of diet: Regular. Appetite Good. Eating Difficulties None. Caffeine intake amount: Occ Coke. Two protein drink daily, it has caffeine of one cup of coffee., 08/19/2022 Substance Abuse Use: Never., 04/06/2019 Tobacco Tobacco Use: Former smoker, quit more than 30 days ago., 04/06/2019 Family History Arthritis: Sister. Asbestosis: Father. Cancer: Mother. Diabetes: Sister. Guillain Colts Neck syndrome: Sister. Heart disease: Sister. Malignant neoplasm of liver: Mother. Immunizations pneumococcal 13-valent conjugate vaccine: 0.5 unknown unit (05/06/20) pneumococcal 13-valent conjugate vaccine: 0 unknown unit (07/17/15) pneumococcal 23-valent vaccine(Pneumovax: 0 unknown unit (06/08/13) SARS-CoV-2 mRNA (tozinameran) vaccine: 30 unknown unit (01/01/21) SARS-CoV-2 mRNA (tozinameran) vaccine: 30 unknown unit (12/10/20) tetanus/diphth/pertuss (Tdap) adult/adol: 0 unknown unit (06/24/16) zoster vaccine live: 0 unknown unit (05/28/12) zoster vaccine, inactivated: 0.5 unknown unit (04/08/21) Code Status No qualifying data available. Digitally Signed by ROHAN MCDOWELL on 06/30/2023 04:51 PM [facility] 06-30-2023 Note ORIGINAL EXAMINATION: 3 x-ray views of the left ankle and 3 x-ray views of the left foot 06/30/2023 3:53 pm COMPARISON: None. HISTORY: ORDERING SYSTEM PROVIDED HISTORY: Reason for Exam: pain FINDINGS: Obliquely oriented fracture is seen through the distal fibula. The fracture appears to extend to the syndesmosis. There is disruption of the syndesmosis with widening of the anterior tibiotalar joint space. No definite fracture is visible in the posterior malleolus. There is no visible fracture of the medial malleolus. Degenerative changes seen of the tarsometatarsal and intertarsal joint spaces. Vascular calcifications seen. Degenerative changes seen at the 1st metatarsophalangeal joint. IMPRESSION: Obliquely oriented fracture of the distal fibula extends through the syndesmosis level. There is disruption of the ankle mortise with widening of the anterior tibiotalar joint space. No definite fracture seen of the posterior or medial malleoli but ligamentous injury is suspected Interpreted by: Nadir Pat MD Preliminary Report By: Nadir Pat MD Electronically signed By Nadir Pat MD Dictated Date: 06/30/2023 3:55:41 PM Prelim Date: 06/30/2023 4:00:26 PM Sign Date: 06/30/2023 4:00:26 PM Ordering Provider: VICENTE MC [facility] 06-30-2023 Note ORIGINAL EXAMINATION: TWO XRAY VIEWS OF THE LEFT KNEE06/30/2023 3:58 pm COMPARISON: 03/22/2020. HISTORY: ORDERING SYSTEM PROVIDED HISTORY: Reason for Exam: Pain FINDINGS: Left knee arthroplasty noted. There is a circular wirelike density projecting near the anterior aspect of the joint space, similar to the prior exam. No acute fractures visualized. Chronic remodeling of the patella noted. IMPRESSION: Intact left knee arthroplasty Surgical wire projecting in the anterior joint space is similar to the prior study Interpreted by: Nadir Pat MD Preliminary Report By: Nadir Pat MD Electronically signed By Nadir Pat MD Dictated Date: 06/30/2023 4:00:34 PM Prelim Date: 06/30/2023 4:01:46 PM Sign Date: 06/30/2023 4:01:46 PM Ordering Provider: VICENTE MC [facility] 1. Ankle pain-swelling Acute, s/p mechanical fall at home *X-ray of left ankle reveals fracture of distal fibula. *Consult Dr. Jose Duncan, orthopedics, for recommendation. *Patient is non weightbearing to left ankle. *Consult placed to PT and OT to evaluate and treat. *dining services manager consulted for discharge planning. *Continue PO pain medication. *Check CBC and BMP in the am. 2. Fall Mechanical fall at home today. *Plan as above. 3. Type 2 diabetes mellitus Chronic *Blood sugar checks before meals and at bedtime. *Cover with sliding scale insulin. *Start diabetic diet. *Blood sugar goal of 180 or less and avoid hypoglycemia. 4. Hypertension Chronic *Continue current antihypertensives. *SBP goal of 140 or less. 5. Depression Chronic *Continue current home medications. DVT prophylaxis with heparin sc. Code status: Full Code. Labs, diagnostic test and progress notes reviewed as noted in HPI. Plan of care discussed with patient. All questions answered. Patient verbalizes understanding and is agreeable with plan of care. This case was discussed with collaborating physician, Dr. Norbert Robb. 55 minutes spent reviewing past diagnostic tests, reviewing lab results, vital sign trends, medical history, reviewing medications and ordering home medications, examining patient, reviewing PCP notes, past labs, collaborating with physician, and documenting in chart. Future Appointments Appointment Date:09/22/2023 11:30:00 AM Scheduled Provider:LACI BREWER Location:[facility] Appointment Type:[facility] Evaluation + Plan note Future Appointments Appointment Date:07/24/2021 11:30:00 AM Scheduled Provider:LACI BREWER Location:[facility] Appointment Type:PC OV Future Scheduled Tests Laboratory* Vitamin D Level 01/22/21 * Vitamin D Level 11/06/20 [facility] Evaluation + Plan note Future Appointments Appointment Date:02/04/2022 11:00:00 AM Scheduled Provider:LACI BREWER Location:[facility] Appointment Type:PC OV Follow Up [facility] Evaluation + Plan note Future Appointments Appointment Date:02/10/2023 11:30:00 AM Scheduled Provider:LACI BREWER Location:[facility] Appointment Type:PC OV [facility] Evaluation note* Diagnosis Closed fracture of left ankle, initial encounter- [facility] Diagnosis Closed fracture of distal end of left fibula, unspecified fracture morphology, initial encounter Acute left ankle pain [facility]* Diagnosis Closed fracture of distal end of left fibula, unspecified fracture morphology, initial encounter- Primary [facility]* Diagnosis Closed fracture of distal end of left fibula, unspecified fracture morphology, initial encounter- Primary [facility] Narrative No data available for this section [facility] Hospital Discharge instructions No data available for this section [facility] Progress note No data available for this section [facility] Summary Purpose Family History No Family History Records Found Advance Directives No Advanced Directives Records FoundNo Advanced Directives Records Found Reason for Referral Specialty Diagnoses / Procedures Referred By Edson t Referred To Contact Physical Therapy Diagnoses Closed fracture of distal end of left fibula, unspecified fracture morphology, initial encounter Procedures LA OFFICE/OUTPATIENT [facility] 60 MINUTES Tete Trevino PA [address] [place] [id number] Referral ID Status Reason Start Date Expiration Date Visits Requested Visits Authorized [id number] Pending Review Eval and Treat 10/14/2023 04/11/2024 99 99 Additional Source Comments Care Team (unrecognized sect ion and content) Collections Analyst Relationship Specialty Start Date End Date Balwinder Alves MD [address] [facility] [address] [place] [phone] PCP - General Family Medicine 10/14/23 Collections Analyst Relationship Specialty Start Date End Date Balwinder Alves MD [address] [place] [phone] PCP - General Family Medicine 10/14/23 INFORMATION SOURCE (unrecogn ized section and content) DATE CREATED AUTHOR AUTHOR'S ORGANIZ ATION 12/10/2023 [facility] Reason for Visit (unrecogniz ed section and content) Reason Comments Follow-up Left distal fibula f x DOI 07/02/23 Reason Comments Follow-up L fibula fx FOR RECORDS PERTAINING TO PATIENTS WHO ARE OR HAVE BEEN ENROLLED IN A CHEMICAL DEPENDENCY/SUBSTANCEABUSE PROGRAM, SOME INFORMATION MAY BE OMITTED. This clinical summary was aggregated from multiple sources. Caution should be exercised in using it in the provision of clinical care. This summary normalizes information from multiple sources, and as a consequence, information in this document may materially change the coding, format and clinical context of patient data. In addition, data may be omitted in some cases. CLINICAL DECISIONS SHOULD BE BASED ON THE PRIMARY CLINICAL RECORDS. [facility]. provides no warranty or guarantee of the accuracy or completeness of information in this document.
[2023-12-14 09:07] LABS: Hematocrit 41.1 % (37-47); Hemoglobin 12.5 g/dL (12.0-15.0); Mean Corp Hgb Conc 30.4 g/dL (32-36); Mean Corpuscular Hgb 28.2 pg (27.0-32.0); Mean Corpuscular Volume 92.6 fL (81-99); Mean Platelet Vol. 8.5 fl (6.2-12.0); Platelet Count 174 K/mm3 (150-450); RBC Distribution Width CV 15.4 % (11.6-14.6); RBC Distribution Width SD 52.9 fl (35.1-43.9); Red Blood Count 4.44 M/mm3 (4.2-5.4); White Blood Count 4.9 K/mm3 (4.4-11.0)
[2023-12-14 09:19] LABS: Vitamin D,25 Hydroxy 42.9 ng/mL
[2023-12-14 09:22] LABS: Anion Gap 5 (5-15); BUN 7 mg/dL (7-18); BUN/Creat Ratio 12.2 RATIO (10-20); Calcium,Total 8.9 mg/dL (8.5-10.1); Chloride 105 mmol/L (98-107); Cholesterol 128 mg/dL (200); Creatinine, Serum 0.58 mg/dL (0.55-1.02); EST Glomerular Filtration Rate 107 mL/min (>60); Est Glom Filt Rate - Afr Amer 130 mL/min (>60); Glucose 132 mg/dL (74-106); High Density Lipoprotein 49 mg/dL; Potassium 4.4 mmol/L (3.5-5.1); Sodium Level 142 mmol/L (136-145); Triglycerides 178 mg/dL; Very Low Density Lipoprotein 36 mg/dL (5-40)
[2023-12-14 09:24] LABS: Hemoglobin A1c 6.2 % (3.8-5.6)
== END ==
LOC: OLS.WCC 04:00
PROVIDERS: PCP Nurse Practitioner Primary Care; Referring Provider Family Medicine; Visit Provider Family Medicine
DX: E11.9 Type 2 diabetes mellitus without complications (principal); I10 Essential (primary) hypertension; Z79.899 Other long term (current) drug therapy
CPT/HCPCS: 36415; 80048; 80061; 82306; 83036; 85027

== ENCOUNTER 2024-02-06 15:45 | Emergency (ER) | payer MEDICARE, MEDICAID, SELFPAY ==
[2024-02-06 15:49] VITALS: BP 144/88; PULSE 78; RESP 18; TEMP 36.7; O2SAT 92; BMI 38.9
--- NOTE | 2024-02-06 16:07 | EDS_ITS ---
HPI History of Present Illness Chief Complaint: Wound Check Narrative Narrative: 78-year-old female past medical history of diabetes [facility] from [facility] for right labia majora abscess. She states it has been there for approximately [address] aDmon at the facility had lanced the area, but her daughter reports that it was deep. It was not deep enough to take a packing. She has been on doxycycline and Keflex, but there has been a reaccumulation of fluid and the right labia has become more swollen. She presents for incision and drainage of the area again, and reportedly needs a PICC line because they want to start vancomycin. [facility] Medical History Brain bleed Cataract Closed fracture of left distal fibula Hx pulmonary embolism Left ankle pain Home Medications Gabapentin TID 11/01/20 [History Last Taken Unknown] duloxetine 60 mg capsule,delayed release 60 mg PO 11/01/20 [History Last Taken Unknown] losartan 100 mg tablet DAILY 11/01/20 [History Last Taken Unknown] metformin 1,000 mg tablet 1,000 mg PO 11/01/20 [History Last Taken Unknown] sitagliptin phosphate 100 mg tablet 100 mg PO DAILY 11/01/20 [History Last Taken Unknown] trazodone 50 mg tablet 50 mg PO PRN PRN Anxiety 11/01/20 [History Last Taken Unknown] Alendronate Sodium 70 mg PO QWEEK 11/22/20 [History Last Taken Unknown] hydrocodone-acetaminophen 5-325mg 5mg-325mg 1 tab PO QHS PRN 07/16/23 [History Last Taken Unknown] simvastatin 5 mg tablet 5 mg PO DAILY 07/16/23 [History Last Taken Unknown] Allergy/AdvReac Type Severity Reaction Status Date / Time adhesive tape Allergy Mild blister Verified 07/16/23 10:57 amoxicillin [From Augmentin] Allergy Mild Rash Verified 02/06/24 16:16 ciprofloxacin [From Cipro] Allergy Mild Rash Verified 07/16/23 10:57 clavulanic acid Allergy Mild Rash Verified 02/06/24 16:16 [From Augmentin] latex Allergy Mild Other Verified 02/06/24 16:18 sulfamethoxazole AdvReac Shortness Verified 11/01/20 14:52 [From Bactrim] of breath trimethoprim [From Bactrim] AdvReac Shortness Verified 11/01/20 14:52 of breath Surgical History Total knee replacement status Social History Smoking Status: Former smoker ROS ROS ED ROS Narrative Constitutional: No fever, no chills. HEENT: No sore throat. No neck pain. No loss of vision. No rhinorrhea. Cardiovascular: No chest pain. No palpitations. No pedal edema. Respiratory: No cough, no shortness of breath. Abdominal: No abdominal pain. No nausea. No vomiting. Genitourinary: No dysuria. No hematuria. Positive right labial pain and swelling. Musculoskeletal: No myalgias. No arthralgias. Neurologic: No headaches. No dizziness. No lightheadedness. Skin: No rash. No change in color. Psychiatric: No depression. No anxiety. EXAM Physical Exam Narrative Exam Narrative: Afebrile. Vital signs noted. Nontoxic-appearing. HEENT: Normocephalic. Atraumatic. PERRL, EOMI. Neck soft and supple. No point tenderness or step off. Cardiovascular: Regular rate and rhythm. No murmurs, rubs, or gallops appreciated. Respiratory: No tachypnea. Lungs clear to auscultation bilaterally. Gastrointestinal: Abdomen soft, nontender, with normoactive bowel sounds. No rebound or guarding. Genitourinary: Chaperoned examination reveals swollen labia majora on right with indurated tissue. Small area of drainage. Neurological: Awake. Alert. Nonfocal, nonlateralizing. Skin: No rash. Normal color. No pallor. Musculoskeletal: No pedal edema. Full range of motion extremities. Const Vital Signs: 02/06/24 15:49 Temperature 98.1 F Temperature Source Oral Pulse Rate 78 Respiratory Rate 18 Blood Pressure 144/88 H Blood Pressure Mean 106 Pulse Ox 92 Oxygen Delivery Method Room Air MDM MDM MDM Narrative Medical decision making narrative: Patient was consented for incision and drainage. See procedure note for details. We attempted to see if PICC placement was available here, but it is not currently. Peripheral IV was started and she was given her first dose of vancomycin of 1.75 g. She was additionally given morphine and ondansetron preprocedure. Procedure note: Incision and drainage of right labial abscess. Povidine iodine used to cleanse the area. Lidocaine 1% was used as a local anesthetic. Patient had already received morphine and ondansetron as an analgesic as well. #11 blade was used to make a stellate incision. There is evidence of ruptured capsule wall consistent with previously infected sebaceous cyst. There was a small amount of serosanguineous fluid that was drained. Area was D loculated and lightly irrigated, and two tail packing was inserted lightly using quarter inch iodoform gauze. Patient was able to tolerate procedure well. I discussed patient with Dr. Haresh Damon afterwards. I do not feel she requires admission. The peripheral IV will be left in place so that they can administer vancomycin as she has already been on antibiotics orally. Disposition is discharged to [facility] in stable condition. History & Record Review Discussion w/independent historian: Patient and Family Management Discussion w/another healthcare provider: PCP (Dr. Haresh Damon) Discharge Plan Triage Chief Complaint: Wound Check ED Provider: Omid Montiel Dx/Rx/DC Orders Clinical Impression: Labial abscess Instructions: ED Abscess Incision And Drainage, ED Wound Care After Packing ... Prescriptions: No Action simvastatin 5 mg tablet 5 mg PO DAILY hydrocodone-acetaminophen 5-325 mg tablet 1 tab PO QHS PRN trazodone 50 MG tablet 50 mg PO PRN PRN (Reason: Anxiety) metformin 1,000 MG tablet 1,000 mg PO losartan 100 MG tablet DAILY duloxetine 60 MG capsule,delayed release(DR/EC) 60 mg PO sitagliptin phosphate 100 MG tablet 100 mg PO DAILY Gabapentin 600 MG tablet TID Alendronate Sodium 70 mg PO QWEEK Primary Care Provider: Haresh Damon Referrals: Haresh Damon MD [Primary Care Provider] - 2 Days Jared Ramirez LINER INSTALLER, LINER INSTALLER-C [Non-Staff] - Activity Restrictions/Additional Instructions: Remove packing/have packing removed in 48 hours. Do not leave in longer. Continue vancomycin through your peripheral IV. Disposition Disposition: Detention Facility Discharge Location: [facility]
[2024-02-06] MEDS: Morphine 4 MG/ML Syringe IV (16:28)
[2024-02-06] MEDS: Lidocaine 1% (20 ml mdv) 20 ML Vial INFILT (16:29)
[2024-02-06] MEDS: Vancomycin HCl 1,750 MG in 0.9% Normal Saline (500mL Bag) 500 ML 250 MG IV (17:45)
[2024-02-06 20:00] VITALS: BP 173/73; PULSE 68; RESP 18; TEMP 36.6; O2SAT 97
[2024-02-06] MEDS: DiphenhydrAMINE 50 MG/ML Syringe 25 MG IV (20:15)
== END 2024-02-06 20:21 | disposition skilled nursing facility (03) ==
PROVIDERS: Emergency Provider Emergency Medicine; PCP Family Medicine; Visit Provider Emergency Medicine
DX: N76.4 Abscess of vulva (principal); E11.9 Type 2 diabetes mellitus without complications; Z87.891 Personal history of nicotine dependence; Z86.711 Personal history of pulmonary embolism
CPT/HCPCS: 96365; 96366; 96375; 99283; J7040; J7050; A4216

== ENCOUNTER → 2024-02-08 | Outpatient (REF) | payer MEDICARE, SELFPAY ==
[2024-02-08 10:18] LABS: Anion Gap 5 (5-15); BUN 10 mg/dL (7-18); BUN/Creat Ratio 17.2 RATIO (10-20); Calcium,Total 8.8 mg/dL (8.5-10.1); Chloride 103 mmol/L (98-107); Creatinine, Serum 0.58 mg/dL (0.55-1.02); EST Glomerular Filtration Rate 105 mL/min (>60); Est Glom Filt Rate - Afr Amer 128 mL/min (>60); Glucose 124 mg/dL (74-106); Potassium 4.5 mmol/L (3.5-5.1); Sodium Level 137 mmol/L (136-145)
== END ==
LOC: OLS.WCC 05:00
PROVIDERS: PCP Family Medicine; Visit Provider Family Medicine
DX: Z79.899 Other long term (current) drug therapy (principal)
CPT/HCPCS: 36415; 80048; 80202

== ENCOUNTER → 2024-02-12 | Outpatient (CLI) | payer MEDICARE, MEDICAID, SELFPAY ==
--- NOTE | 2024-02-12 18:30 | CT_ITS ---
STUDY: CT PELVIS WITH CONTRAST REASON FOR EXAM: Female, 78 years old. EVAL RT LABIAL CYST/MASS FOR ABCESS RADIATION DOSAGE (If Supplied By Facility): CTDIvol = ( 21.69 ) mGy, DLP = ( 986.94 ) mGycm TECHNIQUE: Transaxial imaging of the pelvis was performed without oral contrast. IV 100mL Isovue-300 was administered intravenously. Individualized dose optimization techniques were used for this CT. COMPARISON: None. FINDINGS: Incompletely distended thick walled bladder containing Soria catheter. Normal visualized small intestine. Normal visualized colon. There is no pelvic fluid. There is no pelvic lymphadenopathy or mass lesion. Normal uterus not visualized which may be consistent with hysterectomy. Normal visualized pelvic arteries. There is a tiny hypoattenuated density in the right labia which may be consistent with cyst. No evidence for infection or abscess. Normal abdominal wall. Lumbar spine demonstrates mild degenerative change. CT/Pelvis WITH IV Contrast IMPRESSION: Tiny hypoattenuated density in the right labia which may be consistent with cyst but no evidence for infection or abscess.. Sonography may be helpful for further assessment as the labial cyst is poorly defined Electronically Signed: Zander Durand MD at 19:38 EDT ,
== END | disposition home or self-care (01) ==
LOC: CT 18:27
PROVIDERS: PCP Family Medicine; Visit Provider Family Medicine
DX: N90.7 Vulvar cyst (principal)
CPT/HCPCS: 72193; Q9967; A4216

== ENCOUNTER → 2024-03-14 | Outpatient (REF) | payer MEDICARE, MEDICAID, SELFPAY ==
[2024-03-14 06:55] LABS: Hematocrit 40.3 % (37-47); Hemoglobin 12.1 g/dL (12.0-15.0); Mean Corpuscular Hgb 28.7 pg (27.0-32.0); Mean Corpuscular Volume 95.5 fL (81-99); Mean Platelet Vol. 8.5 fl (6.2-12.0); Platelet Count 158 K/mm3 (150-450); RBC Distribution Width SD 48.5 fl (35.1-43.9); Red Blood Count 4.22 M/mm3 (4.2-5.4); White Blood Count 7.1 K/mm3 (4.4-11.0)
[2024-03-14 07:28] LABS: Anion Gap 3 (5-15); BUN 9 mg/dL (7-18); BUN/Creat Ratio 18.1 RATIO (10-20); Calcium,Total 9.1 mg/dL (8.5-10.1); Chloride 102 mmol/L (98-107); EST Glomerular Filtration Rate 127 mL/min (>60); Est Glom Filt Rate - Afr Amer 154 mL/min (>60); Glucose 151 mg/dL (74-106); Potassium 4.5 mmol/L (3.5-5.1); Sodium Level 136 mmol/L (136-145)
== END ==
LOC: OLS.WCC 05:00
PROVIDERS: PCP Family Medicine; Visit Provider Family Medicine
DX: E11.9 Type 2 diabetes mellitus without complications (principal); I10 Essential (primary) hypertension; Z79.899 Other long term (current) drug therapy
CPT/HCPCS: 36415; 80048; 85027

== ENCOUNTER → 2024-03-25 | Outpatient (REF) | payer MEDICARE, MEDICAID, SELFPAY ==
[2024-03-25 14:54] LABS: Color, Urine Yellow (Yellow); Glucose, Dipstick Normal (Normal); Ketone-Dipstick Negative (Negative); Leukocyte Esterase-Dipstick 500 /ul (Negative); Nitrite-Dipstick Positive (Negative); Occult Blood-Urine 250 /ul (Negative); Protein-Dipstick 15 mg/dl (Negative); Urine Bilirubin Dipstick Negative (Negative); Urine Clarity Sl. Cloudy (Clear); Urine Urobilinogen Normal (Normal)
== END ==
LOC: OLS.WCC 13:50
PROVIDERS: PCP Family Medicine; Referring Provider Family Medicine; Visit Provider Family Medicine
DX: N39.0 Urinary tract infection, site not specified (principal)
CPT/HCPCS: 81002; 87077; 87086; 87088; 87186

== ENCOUNTER → 2024-05-06 | Outpatient (CLI) | payer MEDICARE, MEDICAID, SELFPAY ==
[2024-05-06 19:48] LABS: Color, Urine Yellow (Yellow); Glucose, Dipstick Normal (Normal); Ketone-Dipstick 5 mg/dl (Negative); Leukocyte Esterase-Dipstick 500 /ul (Negative); Nitrite-Dipstick Positive (Negative); Occult Blood-Urine 250 /ul (Negative); Protein-Dipstick 30 mg/dl (Negative); Specific Gravity, Urine 1.015 (1.002-1.030); Urine Bilirubin Dipstick Negative (Negative); Urine Clarity Cloudy (Clear); Urine Urobilinogen Normal (Normal)
== END | disposition home or self-care (01) ==
PROVIDERS: PCP Family Medicine; Referring Provider Family Medicine; Visit Provider Family Medicine
DX: N39.0 Urinary tract infection, site not specified (principal)
CPT/HCPCS: 81002; 87077; 87086; 87088; 87186

== ENCOUNTER → 2024-06-14 | Outpatient (REF) | payer MEDICARE, MEDICAID, SELFPAY ==
[2024-06-14 08:59] LABS: Hematocrit 36.9 % (37-47); Hemoglobin 11.1 g/dL (12.0-15.0); Mean Corp Hgb Conc 30.1 g/dL (32-36); Mean Corpuscular Hgb 28.6 pg (27.0-32.0); Mean Corpuscular Volume 95.1 fL (81-99); Mean Platelet Vol. 8.7 fl (6.2-12.0); Platelet Count 165 K/mm3 (150-450); RBC Distribution Width CV 14.5 % (11.6-14.6); RBC Distribution Width SD 50.7 fl (35.1-43.9); Red Blood Count 3.88 M/mm3 (4.2-5.4); White Blood Count 5.4 K/mm3 (4.4-11.0)
[2024-06-14 09:18] LABS: Vitamin D,25 Hydroxy 38.8 ng/mL
[2024-06-14 09:23] LABS: Anion Gap 6 (5-15); BUN 10 mg/dL (7-18); BUN/Creat Ratio 13.6 RATIO (10-20); Calcium,Total 9.5 mg/dL (8.5-10.1); Chloride 101 mmol/L (98-107); Cholesterol 134 mg/dL (200); Creatinine, Serum 0.74 mg/dL (0.55-1.02); EST Glomerular Filtration Rate 81 mL/min (>60); Est Glom Filt Rate - Afr Amer 98 mL/min (>60); Glucose 157 mg/dL (74-106); High Density Lipoprotein 66 mg/dL; Potassium 4.1 mmol/L (3.5-5.1); Sodium Level 137 mmol/L (136-145); Triglycerides 125 mg/dL; Very Low Density Lipoprotein 25 mg/dL (5-40)
[2024-06-14 12:37] LABS: Hemoglobin A1c 6.7 % (3.8-5.6)
== END ==
LOC: OLS.WCC 05:00
PROVIDERS: PCP Family Medicine; Visit Provider Family Medicine
DX: E11.9 Type 2 diabetes mellitus without complications (principal); I10 Essential (primary) hypertension; E87.6 Hypokalemia; Z79.899 Other long term (current) drug therapy
CPT/HCPCS: 36415; 80048; 80061; 82306; 83036; 85027

== ENCOUNTER → 2024-09-14 | Outpatient (REF) | payer MEDICARE, MEDICAID, SELFPAY ==
[2024-09-14 08:02] LABS: Hematocrit 37.7 % (37-47); Hemoglobin 11.1 g/dL (12.0-15.0); Mean Corp Hgb Conc 29.4 g/dL (32-36); Mean Corpuscular Hgb 28.5 pg (27.0-32.0); Mean Corpuscular Volume 96.7 fL (81-99); Mean Platelet Vol. 8.2 fl (6.2-12.0); Platelet Count 178 K/mm3 (150-450); RBC Distribution Width SD 48.3 fl (35.1-43.9); White Blood Count 5.6 K/mm3 (4.4-11.0)
[2024-09-14 08:14] LABS: Anion Gap 3 (5-15); BUN 11 mg/dL (7-18); BUN/Creat Ratio 15.5 RATIO (10-20); Calcium,Total 9.4 mg/dL (8.5-10.1); Chloride 103 mmol/L (98-107); Creatinine, Serum 0.71 mg/dL (0.55-1.02); EST Glomerular Filtration Rate 84 mL/min (>60); Est Glom Filt Rate - Afr Amer 102 mL/min (>60); Glucose 168 mg/dL (74-106); Potassium 4.6 mmol/L (3.5-5.1); Sodium Level 139 mmol/L (136-145)
== END ==
LOC: OLS.WCC 05:00
PROVIDERS: PCP Family Medicine; Visit Provider Family Medicine
DX: I10 Essential (primary) hypertension (principal); E11.9 Type 2 diabetes mellitus without complications; Z79.899 Other long term (current) drug therapy
CPT/HCPCS: 36415; 80048; 85027

== ENCOUNTER → 2024-10-10 19:30 | Outpatient (REF) | payer MEDICARE, MEDICAID, SELFPAY ==
[2024-10-11 08:23] LABS: Color, Urine Yellow (Yellow); Glucose, Dipstick Normal (Normal); Ketone-Dipstick Negative (Negative); Leukocyte Esterase-Dipstick 500 /ul (Negative); Nitrite-Dipstick Positive (Negative); Occult Blood-Urine 50 /ul (Negative); Protein-Dipstick 15 mg/dl (Negative); Urine Bilirubin Dipstick Negative (Negative); Urine Clarity Sl. Cloudy (Clear); Urine Urobilinogen Normal (Normal); Urine pH 6.5 (5.0 - 8.0)
== END ==
LOC: OLS.WCC 19:30
PROVIDERS: PCP Family Medicine; Referring Provider Family Medicine; Visit Provider Family Medicine
DX: N39.0 Urinary tract infection, site not specified (principal)
CPT/HCPCS: 81002; 87077; 87086; 87088; 87186

== ENCOUNTER → 2024-12-14 | Outpatient (REF) | payer MEDICARE, MEDICAID, SELFPAY ==
[2024-12-14 07:48] LABS: Absolute Lymphocyte Count 1.93 X10^3/uL (0.83-4.51); Basophil# 0.02 X10^3/uL; Basophil% 0.3 % (0-1); Eosinophil# 0.21 X10^3/uL; Eosinophils% 3.1 % (0-5); Hematocrit 35.6 % (37-47); Hemoglobin 10.9 g/dL (12.0-15.0); Lymphocyte # 1.93 X10^3/ul (0.83-4.51); Lymphocyte % 28.7 % (19-41); Mean Corp Hgb Conc 30.6 g/dL (32-36); Mean Corpuscular Hgb 28.2 pg (27.0-32.0); Mean Platelet Vol. 8.5 fl (6.2-12.0); Monocyte# 0.46 X10^3/uL; Monocyte% 6.8 % (0-10); NRBC Flagged by Analyzer 0 % (0-5); Neutrophil # 4.03 X10^3/uL (2.7-7.7); Neutrophil % 60.1 % (47-70); Platelet Count 213 K/mm3 (150-450); RBC Distribution Width CV 13.6 % (11.6-14.6); RBC Distribution Width SD 46.1 fl (35.1-43.9); Red Blood Count 3.87 M/mm3 (4.2-5.4); White Blood Count 6.7 K/mm3 (4.4-11.0)
[2024-12-14 08:19] LABS: Hemoglobin A1c 8.6 % (<=5.6)
[2024-12-14 08:24] LABS: Anion Gap 11 (5-15); BUN 7 mg/dL (4-19); BUN/Creat Ratio 10.3 RATIO (10-20); Calcium,Total 9.2 mg/dL (7.6-11.0); Carbon Dioxide 27.6 mmol/L (21.0-32.0); Chloride 101 mmol/L (98-108); Cholesterol 91 mg/dL (<=200); Creatinine, Serum 0.68 mg/dL (0.70-1.20); EST Glomerular Filtration Rate 88 (>60); Glucose 177 mg/dL (70-99); High Density Lipoprotein 40 mg/dL; Low Density Lipoprotein Calc. 22 mg/dL; Potassium 4.3 mmol/L (3.3-5.1); Sodium Level 139 mmol/L (133-145); Triglycerides 146 mg/dL; Very Low Density Lipoprotein 29 mg/dL (5-40); cholesterol:hdl ratio screen 2.29
[2024-12-14 08:48] LABS: Vitamin D,25 Hydroxy 31.2 ng/mL (30-100)
== END ==
LOC: OLS.WCC 05:00
PROVIDERS: PCP Family Medicine; Visit Provider Family Medicine
DX: I10 Essential (primary) hypertension (principal); E55.9 Vitamin D deficiency, unspecified; E11.9 Type 2 diabetes mellitus without complications
CPT/HCPCS: 36415; 80048; 80061; 82306; 83036; 85025

== ENCOUNTER → 2024-12-16 | Outpatient (REF) | payer MEDICARE, MEDICAID, SELFPAY ==
[2024-12-16 07:18] LABS: Hematocrit 36.2 % (37-47); Mean Corp Hgb Conc 30.4 g/dL (32-36); Mean Corpuscular Hgb 28.2 pg (27.0-32.0); Mean Corpuscular Volume 92.8 fL (81-99); Mean Platelet Vol. 8.4 fl (6.2-12.0); Platelet Count 231 K/mm3 (150-450); RBC Distribution Width CV 13.8 % (11.6-14.6); White Blood Count 7.8 K/mm3 (4.4-11.0)
[2024-12-16 08:42] LABS: Anion Gap 12 (5-15); BUN 8 mg/dL (4-19); BUN/Creat Ratio 12.7 RATIO (10-20); Calcium,Total 9.5 mg/dL (7.6-11.0); Carbon Dioxide 26.7 mmol/L (21.0-32.0); Chloride 98 mmol/L (98-108); Cholesterol 98 mg/dL (<=200); Creatinine, Serum 0.67 mg/dL (0.70-1.20); EST Glomerular Filtration Rate 88 (>60); Glucose 201 mg/dL (70-99); High Density Lipoprotein 44 mg/dL; Low Density Lipoprotein Calc. 22 mg/dL; Potassium 4.6 mmol/L (3.3-5.1); Sodium Level 137 mmol/L (133-145); Triglycerides 162 mg/dL; Very Low Density Lipoprotein 32 mg/dL (5-40); Vitamin D,25 Hydroxy 31.6 ng/mL (30-100); cholesterol:hdl ratio screen 2.22
[2024-12-16 09:41] LABS: Hemoglobin A1c 8.4 % (<=5.6)
== END ==
LOC: OLS.WHL 06:12
PROVIDERS: PCP Family Medicine; Visit Provider Family Medicine
DX: E11.9 Type 2 diabetes mellitus without complications (principal); I10 Essential (primary) hypertension
CPT/HCPCS: 36415; 80048; 80061; 82306; 83036; 85027

== ENCOUNTER → 2024-12-26 | Outpatient (REF) | payer MEDICARE, MEDICAID, SELFPAY ==
[2024-12-26 09:05] LABS: Absolute Lymphocyte Count 1.77 X10^3/uL (0.83-4.51); Absolute Neutrophil Count 4.6 X10^3/uL (2.0-7.7); Basophil# 0.04 X10^3/uL; Basophil% 0.6 % (0-1); Eosinophil# 0.21 X10^3/uL; Eosinophils% 2.9 % (0-5); Hematocrit 35.6 % (37-47); Hemoglobin 10.9 g/dL (12.0-15.0); Lymphocyte # 1.77 X10^3/ul (0.83-4.51); Lymphocyte % 24.8 % (19-41); Mean Corp Hgb Conc 30.6 g/dL (32-36); Mean Corpuscular Hgb 28.8 pg (27.0-32.0); Mean Corpuscular Volume 93.9 fL (81-99); Mean Platelet Vol. 8.6 fl (6.2-12.0); Monocyte# 0.45 X10^3/uL; Monocyte% 6.3 % (0-10); NRBC Flagged by Analyzer 0 % (0-5); Neutrophil # 4.62 X10^3/uL (2.7-7.7); Neutrophil % 64.7 % (47-70); Platelet Count 221 K/mm3 (150-450); RBC Distribution Width CV 13.9 % (11.6-14.6); RBC Distribution Width SD 47.6 fl (35.1-43.9); Red Blood Count 3.79 M/mm3 (4.2-5.4); White Blood Count 7.1 K/mm3 (4.4-11.0)
[2024-12-26 14:34] LABS: Anion Gap 9 (5-15); BUN 8 mg/dL (4-19); BUN/Creat Ratio 12.2 RATIO (10-20); Calcium,Total 9.1 mg/dL (7.6-11.0); Chloride 99 mmol/L (98-108); Creatinine, Serum 0.67 mg/dL (0.70-1.20); EST Glomerular Filtration Rate 88 (>60); Glucose 215 mg/dL (70-99); Potassium 4.6 mmol/L (3.3-5.1); Sodium Level 137 mmol/L (133-145)
== END ==
LOC: OLS.WCC 07:08
PROVIDERS: PCP Family Medicine; Visit Provider Family Medicine
DX: R10.9 Unspecified abdominal pain (principal); Z79.899 Other long term (current) drug therapy
CPT/HCPCS: 36415; 80048; 85025

== ENCOUNTER → 2025-01-02 | Outpatient (REF) | payer MEDICARE, MEDICAID, SELFPAY ==
[2025-01-03 09:51] LABS: Color, Urine Yellow (Yellow); Glucose, Dipstick Normal (Normal); Ketone-Dipstick Negative (Negative); Leukocyte Esterase-Dipstick 500 /ul (Negative); Nitrite-Dipstick Positive (Negative); Occult Blood-Urine 150 /ul (Negative); Protein-Dipstick 30 mg/dl (Negative); Urine Bilirubin Dipstick Negative (Negative); Urine Clarity Sl. Cloudy (Clear); Urine Urobilinogen Normal (Normal); Urine pH 6.5 (5.0 - 8.0)
== END ==
LOC: OLS.WCC 19:30
PROVIDERS: PCP Family Medicine; Referring Provider Family Medicine; Visit Provider Family Medicine
DX: N39.0 Urinary tract infection, site not specified (principal)
CPT/HCPCS: 81002; 87086

== ENCOUNTER → 2025-01-09 | Outpatient (REF) | payer MEDICARE, MEDICAID, SELFPAY ==
[2025-01-09 15:10] LABS: Color, Urine Yellow (Yellow); Glucose, Dipstick Normal (Normal); Ketone-Dipstick Negative (Negative); Leukocyte Esterase-Dipstick 500 /ul (Negative); Nitrite-Dipstick Positive (Negative); Occult Blood-Urine 150 /ul (Negative); Protein-Dipstick 30 mg/dl (Negative); Urine Bilirubin Dipstick Negative (Negative); Urine Clarity Cloudy (Clear); Urine Urobilinogen Normal (Normal); Urine pH 6.5 (5.0 - 8.0)
== END ==
LOC: OLS.WCC 12:40
PROVIDERS: PCP Family Medicine; Visit Provider Family Medicine
DX: N39.0 Urinary tract infection, site not specified (principal)
CPT/HCPCS: 81002; 87077; 87086; 87088; 87186

== ENCOUNTER → 2025-01-23 | Outpatient (REF) | payer MEDICARE, MEDICAID, SELFPAY ==
[2025-01-24 06:46] LABS: Mucous, Urine 0 SEEN /hpf (<or=2+)
[2025-01-24 06:54] LABS: Color, Urine Yellow (Yellow); Glucose, Dipstick Normal (Normal); Ketone-Dipstick Negative (Negative); Leukocyte Esterase-Dipstick 500 /ul (Negative); Nitrite-Dipstick Positive (Negative); Occult Blood-Urine 50 /ul (Negative); Protein-Dipstick 15 mg/dl (Negative); Urine Bilirubin Dipstick Negative (Negative); Urine Clarity Sl. Cloudy (Clear); Urine Urobilinogen Normal (Normal); Urine pH 6.5 (5.0 - 8.0)
[2025-01-24 07:02] LABS: Bacteria 2+ /hpf (None Seen); Red Blood Cells-Urine 0-5 SEEN /hpf (0-5); Squamous Epithelial Cells - UA 0-5 SEEN /hpf (5-10); White Blood Cells 5-10 SEEN /hpf (0-5)
== END ==
LOC: OLS.WCC 23:30
PROVIDERS: PCP Family Medicine; Referring Provider Family Medicine; Visit Provider Family Medicine
DX: N39.0 Urinary tract infection, site not specified (principal)
CPT/HCPCS: 81001; 87086

== ENCOUNTER → 2025-02-07 | Outpatient (REF) | payer MEDICARE, MEDICAID, SELFPAY ==
[2025-02-07 09:03] LABS: Glucose, Dipstick Normal (Normal); Ketone-Dipstick Negative (Negative); Leukocyte Esterase-Dipstick 500 /ul (Negative); Nitrite-Dipstick Positive (Negative); Occult Blood-Urine 25 /ul (Negative); Protein-Dipstick 15 mg/dl (Negative); Specific Gravity, Urine 1.005 (1.002-1.030); Urine Bilirubin Dipstick Negative (Negative); Urine Urobilinogen Normal (Normal); Urine pH 6.5 (5.0 - 8.0)
[2025-02-07 09:13] LABS: Color, Urine Yellow (Yellow); Urine Clarity Clear (Clear)
== END ==
LOC: OLS.WCC 03:30
PROVIDERS: PCP Family Medicine; Visit Provider Family Medicine
DX: N39.0 Urinary tract infection, site not specified (principal)
CPT/HCPCS: 81002; 87077; 87086; 87088; 87186

== ENCOUNTER → 2025-03-02 04:30 | Outpatient (REF) | payer MEDICARE, MEDICAID, SELFPAY ==
[2025-03-02 08:26] LABS: Color, Urine Yellow (Yellow); Glucose, Dipstick Normal (Normal); Ketone-Dipstick Negative (Negative); Leukocyte Esterase-Dipstick 500 /ul (Negative); Nitrite-Dipstick Positive (Negative); Occult Blood-Urine 50 /ul (Negative); Protein-Dipstick 30 mg/dl (Negative); Urine Bilirubin Dipstick Negative (Negative); Urine Clarity Sl. Cloudy (Clear); Urine Urobilinogen Normal (Normal)
== END ==
LOC: OLS.WCC 04:30
PROVIDERS: PCP Family Medicine; Visit Provider Family Medicine
DX: N39.0 Urinary tract infection, site not specified (principal)
CPT/HCPCS: 81002; 87077; 87086; 87088; 87186

== ENCOUNTER → 2025-03-15 | Outpatient (REF) | payer MEDICARE, MEDICAID, SELFPAY ==
--- OUTSIDE RECORDS SUMMARY | 2025-03-15 03:59 | XMS RPT_ITS | CCD ---
Author Organization [facility] Inform ion [facility] Care Team Providers Care Driver'S Education Instructor Name Role Phone OSMAN PERDUE, LACI Primary Care Physician [phone] OSMAN PERDUE, LACI Primary Care Unavailabl e OSMAN PERDUE, LACI Attending Unavailabl e OSMAN AGRICULTURAL ADVISER-WEEKEND RECEPTIONIST, LACI Primary Care Unavailabl e OSMAN AGRICULTURAL ADVISER-WEEKEND RECEPTIONIST, LACI Attending Unavailabl e JULY PERDUE, ROHAN Romero Attending Unavaila ble OSMAN PERDUE, LACI Primary Care UnavailJOSE FRANCISCO Matos DO Referring Unavailable JOSE ROBERTO DO Consulting Unavailable JULY BENTON-RODRIGO, ROHAN Romero Admitting Unavaila ble Unavailable Primary Care Provider Unavailluisa Brewer BUILDING WRECKER, BUILDING WRECKER-C Laci Primary Care Provider [phone] Osman BUILDING WRECKER, BUILDING WRECKER-C Laci Referring Provider [phone] MD Prieto Meade Attending Provider Dr. Shlomo Umana Attending Provider Balwinder Alves MD Primary Care Provider [phone] ZANDER UREÑA Referring Unavailable TETE TREVINO Attending Unavailable BALWINDER ALVES Primary Care Unavailable TETE TREVINO Attending Unavailable BALWINDER ALVES Primary Care Unavailable ZANDER UREÑA Attending Unavailable TETE TREVINO Referring Unavailable BALWINDER ALVES Primary Care Unavailable TETE TREVINO Referring Unavailable BALWINDER ALVES Primary Care Unavailable Balwinder Alves MD Primary Care Provider UnavailBalwinder Christensen MD Attending Provider Unavailable Balwinder Alves MD Referring Provider Unavailable Dr. Balwinder Alves MD Attending Provider Balwinder Alves MD Primary Care Provider UnavailBalwinder Christensen MD Attending Provider Unavailable Balwinder Alves MD Primary Care Provider Unavailfelipa Alves MD, Balwinder Dominguez Attending Provider Unavailable Nelson OLVERA, Balwinder K Referring Provider Unavailable Alves OLS, Balwinder K Referring Unavailable Alves OLS, Balwinder K Attending Unavailable Alves OLS, Balwinder K Primary Care Unavailable Alves OLS, Balwinder K Attending Unavailable Alves OLS, Balwinder K Primary Care Unavailable Alves OLS, Balwinder K Primary Care Unavailable Alves OLS, Balwinder K Referring Unavailable Alves OLS, Balwinder K Attending Unavailable Alves OLS, Balwinder K Primary Care Unavailable Alves OLS, Balwinder K Attending Unavailable Alves OLS, Balwinder K Primary Care Unavailable Alves OLS, Balwinder K Attending Unavailable Alves OLS, Balwinder K Primary Care Unavailable Alves OLS, Balwinder K Attending Unavailable Alves OLS, Balwinder K Referring Unavailable Alves OLS, Balwinder K Attending Unavailable Alves OLS, Balwinder K Primary Care Unavailable Alves OLS, Balwinder K Attending Unavailable Alves OLS, Balwinder K Primary Care Unavailable Alves, Balwinder K Attending Unavailable Alves OLS, Balwinder K Primary Care Unavailable Alves OLS, Balwinder K Referring Unavailable Alves OLS, Balwinder K Attending Unavailable Alves OLS, Balwinder K Primary Care Unavailable Alves OLS, Balwinder K Attending Unavailable Alves OLS, Balwinder K Primary Care Unavailable Alves OLS, Balwinder K Attending Unavailable Alves, Balwinder K Primary Care Unavailable Alves OLS, Balwinder K Referring Unavailable Alves OLS, Balwinder K Attending Unavailable Alves, Balwinder K Primary Care Unavailable Alves, Balwinder K Attending Unavailable Alves OLS, Balwindre K Attending Unavailable Alves OLS, Balwinder K Primary Care Unavailable Allergies Allergy Classification Reported Allergen(s) Allergy Type Date of Onset Reaction(s) Facility (4 sources) Acetaminophen / oxyCODONE; Translations: [acetaminophen-oxyco done] Drug Allergy [facility] (7 sources) Adhesive Tape Allergy to substance 07-05-20 REDNESS & BLISTERS [facility] (4 sources) Amoxicillin / Clavulanate; Translations: [amoxicillin-clavula kellie] Drug Allergy Rash [facility] (4 sources) Aspirin; Translations: [aspirin] Drug Allergy Unknown [facility] (19 sources) Ciprofloxacin; Translations: [ciprofloxacin] Drug Allergy 07-05-20 Rash [facility] (4 sources) dapagliflozin; Translations: [dapagliflozin] Drug Allergy Rash [facility] (7 sources) Ibuprofen; Translations: [ibuprofen] Drug Allergy 07-05-20 23 [facility] (20 sources) Latex; Translations: [latex] Drug allergy 07-05-20 BLISTERS & REDNESS, blisters, Other [facility] Comment on above: BLISTERS (15 sources) Sulfamethoxazole; Translations: [sulfamethoxazole] Drug Allergy 11-01-19 21 Hives, Shortness of breath [facility] (6 sources) Cephalexin; Translations: [cephalexin] Drug Allergy 07-05-20 23 Hives [facility] Comment on above: Immediate rash / hiv es; patient seen in ER after last administration of Keflex (12 sources) Adhesive Tape; Translations: [adhesive tape] Allergy to substance 07-16-20 blister [facility] (14 sources) Trimethoprim Drug Allergy 11-01-19 21 Shortness of breath [facility] (3 sources) augmenten Allergy to substance 07-16-20 [facility] (4 sources) Aluminum aspirin Drug Allergy 07-05-20 23 Unknown [facility] (4 sources) dapagliflozin Drug Allergy 07-05-20 23 [facility] (4 sources) Amoxicillin-Pot Clavulanate Drug Allergy 07-05-20 23 Rash [facility] (4 sources) Diphenhydramine-Acet aminophen Drug Allergy 07-05-20 23 [facility] (3 sources) Acetaminophen / oxyCODONE Drug Allergy 10-14-19 24 [facility] (3 sources) Sulfamethoxazole Allergy to substance 11-01-19 21 [facility] (3 sources) Wound Dressing Adhesive Drug Allergy 07-16-20 23 [facility] (8 sources) Amoxicillin Drug Allergy 02-06-20 24 [facility] (8 sources) Clavulanate Drug Allergy 02-06-20 24 [facility] (8 sources) Vancomycin Drug Allergy 02-06-20 24 red man syndrome [facility] (1 source) Amoxicillin Drug Allergy 08-03-20 [facility] (1 source) Ciprofloxacin Drug Allergy 08-03-20 [facility] (1 source) Clavulanate Drug Allergy 08-03-20 [facility] (1 source) Sulfamethoxazole Drug Allergy 08-03-20 [facility] (1 source) Trimethoprim Drug Allergy 08-03-20 [facility] (1 source) Vancomycin Drug Allergy 08-03-20 [facility] Medications Current Medications Medication Drug Class(es) Dates Sig (Normalized) Sig (Original) 3 ML semaglutide 2.68 MG/ML Pen Injector [Ozempic] (1 source) Start: 05-19-2023 End: 08-17-2023 inject 1 dose by subcutaneous injection every week Ozempic 8 mg/3 mL (2 mg dose) subcutaneous solution Dose : 2 mg =, Subcutaneous, qWeek, in the abdomen, thigh, or upper arm, # 9 mL, 0 Refill(s), Pharmacy: [facility]/pharmacy #[id number], Type 2 diabetes mellitus, 168.91, cm, 02/18/23 11:25:00 EDT, Height, kg, 02/18/23 11:25:00 EDT, Dosing Weight Start Date: 05/19/23 Stop Date: 08/17/23 Status: Ordered acetaminophen 500 mg oral tablet (11 sources) Start: 07-22-2023 [facility] Pain Relief Extra [facility] 500 MG tablet Start: 07-24-2021 acetaminophen 500 mg oral tablet Dose : 1,000 mg = 2 tab(s), Oral, TID, PRN pain or fever, 0 Refill(s) Start Date: 07/24/21 Status: Ordered Start: 01-10-2016 Tylenol 325 mg oral tablet Dose : 325 mg = 1 tab(s), Oral, q4hr, PRN for pain, 0 Refill(s) Start Date: 01/10/16 Status: Ordered acetaminophen 325 mg / HYDROcodone bitartrate 5 mg oral tablet (12 sources) Opioid Agonist Start: 07-16-2023 Hydrocodone-Ac etaminophen 5-325 mg tablet Active 1 {tbl} PO AT BEDTIME as needed July 16, 2023 12:00am Start: 07-16-2023 take 1 tablet by ann th at bedtime Hydrocodone-Acetaminophen Active 1 TABLE T PO AT BEDTIME July 16, 2023 12:00am Start: 07-03-2023 End: 07-06-2023 [employer] 325- 5 mg oral tablet Dose = 1 tab(s), Oral, q4h, PRN Pain, scale 4-6, X 3 day(s), # 18 tab(s), 0 Refill(s), Fibula fracture, 128 Start Date: 07/03/23 Stop Date: 07/06/23 Status: Ordered alendronic acid 70 mg oral tablet (20 sources) Bisphosphonate Start: 10-07-2022 take 1 tablet by mouth every twenty-four hours alendronate (Fosamax) 70 MG tablet Take 1 tablet by mouth Every 24 hours. 0 10/07/2022 Active Start: 11-22-2020 take 70 mg by mouth every week Alendronate Sodium Active 70 mg PO EVERY WEEK November 22, 2020 1:00am Calcium (1 source) Phosphate Binder, Calcium Start: 04-23-2021 calcium (as carbonat e) 600 mg oral tablet Dose : 1,200 mg = 2 tab(s), Oral, qDay, 0 Refill(s) Start Date: 04/23/21 Status: Ordered calcium carbonate 1500 mg oral tablet (6 sources) Start: 09-07-2023 calcium carbon ate 1500 (600 Ca) MG tablet Start: 11-20-2022 calcium (as ca rbonate) 600 mg oral tablet Dose : 1,200 mg = 2 tab(s), Oral, qDay, # 180 tab(s), 3 Refill(s), Pharmacy: [facility]/pharmacy #[id number], 167.6, cm, 11/20/22 11:29:00 EST, Height, kg, 11/20/22 11:29:00 EST, Dosing Weight Start Date: 11/20/22 Status: Ordered Start: 11-13-2021 calcium (as ca rbonate) 600 mg oral tablet Dose : 1,200 mg = 2 tab(s), Oral, qDay, # 180 tab(s), 3 Refill(s), Pharmacy: [facility]/pharmacy #[id number], 167.6, cm, 11/05/21 9:58:00 EST, Height, kg, 11/05/21 9:58:00 EST, Dosing Weight Start Date: 11/13/21 Status: Ordered cholecalciferol 0.05 mg oral tablet (8 sources) Vitamin D Start: 08-05-2023 cholecalcifero l (Vitamin D-3) 50 MCG (1999) tablet Start: 07-05-2023 take 1 tablet by ann th every twenty-four hours cholecalciferol (Vitamin D-3) 50 MCG (1999) tablet Take 1 tablet by mouth Every 24 hours. 0 07/05/2023 Active ciprofloxacin 3 mg/ml ophthalmic solution (4 sources) Quinolone Antimicrobial Start: 04-23-2023 take 1 drop(s) into the eye(s) four times daily ciprofloxacin (Ciloxan) 0.3 % ophthalmic solution INSTILL 1 DROP INTO LEFT EYE FOUR TIMES A DAY STARTING 3 DAYS BEFORE SURGERY. 0 04/23/2023 Active DULoxetine 60 mg delayed release oral capsule (19 sources) Serotonin and Norepinephrine Reuptake Inhibitor Start: 11-01-2020 Duloxetine 60 MG capsule,delayed release(DR/EC) Active 60 mg PO November 01, 2020 1:00am furosemide 20 mg oral tablet (1 source) Loop Diuretic Start: 04-23-2021 furosemide 20 mg oral tablet Dose : 20 mg = 1 tab(s), Oral, qDay, PRN Swelling, # 30 tab(s), 0 Refill(s) Start Date: 04/23/21 Status: Ordered gabapentin 400 mg oral capsule (15 sources) Anti-epileptic Agent Start: 06-10-2023 End: 09-08-2023 gabapentin 400 mg oral capsule Dose : 400 mg = 1 cap(s), Oral, TID, # 270 cap(s), 0 Refill(s), Pharmacy: [facility]/pharmacy #[id number], Diabetic neuropathy, 168.91, cm, 02/18/23 11:25:00 EDT, Height, 127.7, kg, 02/18/23 11:25:00 EDT, Dosing Weight Start Date: 06/10/23 Stop Date: 09/08/23 Status: Ordered Start: 11-20-2022 End: 02-18-2023 gabapentin 400 mg oral capsu le Dose : 400 mg = 1 cap(s), Oral, TID, # 270 cap(s), 0 Refill(s), Pharmacy: [facility]/pharmacy #[id number], Diabetic neuropathy, 167.6, cm, 11/20/22 11:29:00 EST, Height, 134, kg, 11/20/22 11:29:00 EST, Dosing Weight Start Date: 11/20/22 Stop Date: 02/18/23 Status: Ordered Start: 10-25-2021 End: 01-23-2022 gabapentin 400 mg oral capsu le Dose : 400 mg = 1 cap(s), Oral, TID, dose change, # 270 cap(s), 0 Refill(s), Pharmacy: [facility]/pharmacy #[id number], Diabetic neuropathy, 166.37, cm, 07/24/21 11:31:00 EDT, Height, 134.5, kg, 07/24/21 11:31:00 EDT, Dosing Weight Start Date: 10/25/21 Stop Date: 01/23/22 Status: Ordered Start: 04-23-2021 End: 07-22-2021 gabapentin 400 mg oral capsu le Dose : 400 mg = 1 cap(s), Oral, TID, dose change, # 270 cap(s), 0 Refill(s), Pharmacy: [facility]/pharmacy #[id number], Diabetic neuropathy, 167.6, cm, 04/23/21 11:30:00 EDT, Height, 133.2, kg, 04/23/21 11:30:00 EDT, Dosing Weight Start Date: 04/23/21 Stop Date: 07/22/21 Status: Ordered Start: 11-01-2020 Gabapentin 600 MG tablet Active THREE TIMES A DAY November 01, 2020 1:00am Start: 11-01-2020 Gabapentin Act compa THREE TIMES A DAY November 01, 2020 1:00am Start: 11-01-2020 Gabapentin Act compa THREE TIMES A DAY November 01, 2020 12:00am 3 ml insulin glargine 100 unt/ml pen injector (3 sources) Insulin Analog Start: 11-20-2022 End: 11-15-2023 inject 1 dose by subcutaneous injection once daily Lantus Solostar Pen 100 units/mL 3 mL Pen Dose : 15 unit(s) =, Subcutaneous, qDay, EA=BOX OF 5 PENS diabetes E11.9, # 10 mL, 3 Refill(s), other reason (Rx), Diabetes Type 2 diabetes mellitus with peripheral neuropathy Start Date: 11/20/22 Stop Date: 11/15/23 Status: Ordered Start: 07-24-2021 End: 07-19-2022 inject 1 dose by subcutaneous injection twice daily Lantus Solostar Pen 100 units/mL 3 mL Pen Dose : 30 unit(s) =, Subcutaneous, BID, EA=BOX OF 5 PENS diabetes E11.9, # 4 EA, 3 Refill(s), [id number], Diabetes, 166.37, cm, 07/24/21 11:31:00 EDT, Height, kg, 07/24/21 11:31:00 EDT, Dosing Weight Start Date: 07/24/21 Stop Date: 07/19/22 Status: Ordered Start: 05-14-2021 inject 1 dose by sub cutaneous injection twice daily Lantus Solostar Pen 100 units/mL 3 mL Pen Dose : 30 unit(s) =, Subcutaneous, BID, EA=BOX OF 5 PENS diabetes E11.9, # 4 EA, 3 Refill(s), [id number], 167.6, cm, 04/23/21 11:30:00 EDT, Height, kg, 04/23/21 11:30:00 EDT, Dosing Weight Start Date: 05/14/21 Status: Ordered losartan potassium 100 mg oral tablet (15 sources) Angiotensin 2 Receptor Ysabel Start: 02-18-2023 losartan 100 mg oral tablet Dose : 100 mg = 1 tab(s), Oral, Daily, # 90 tab(s), 1 Refill(s), Pharmacy: [facility]/pharmacy #[id number], Hypertension, 168.91, cm, 02/18/23 11:25:00 EDT, Height, kg, 02/18/23 11:25:00 EDT, Dosing Weight Start Date: 02/18/23 Status: Ordered Start: 02-25-2022 losartan 100 m g oral tablet Dose : 100 mg = 1 tab(s), Oral, Daily, # 90 tab(s), 3 Refill(s), Pharmacy: [facility]/pharmacy #[id number], Hypertension, 167.6, cm, 02/04/22 11:02:00 EDT, Height, kg, 02/04/22 11:02:00 EDT, Dosing Weight Start Date: 02/25/22 Status: Ordered Start: 07-24-2021 losartan 100 m g oral tablet Dose : 100 mg = 1 tab(s), Oral, Daily, In absence of PCP, # 90 tab(s), 1 Refill(s), Pharmacy: [facility]/pharmacy #[id number], Hypertension, 166.37, cm, 07/24/21 11:31:00 EDT, Height, kg, 07/24/21 11:31:00 EDT, Dosing Weight Start Date: 07/24/21 Status: Ordered Start: 04-23-2021 losartan 100 m g oral tablet Dose : 100 mg = 1 tab(s), Oral, Daily, In absence of PCP, # 90 tab(s), 1 Refill(s), Pharmacy: [facility]/pharmacy #[id number], Hypertension, 167.6, cm, 04/23/21 11:30:00 EDT, Height, kg, 04/23/21 11:30:00 EDT, Dosing Weight Start Date: 04/23/21 Status: Ordered Start: 11-01-2020 Losartan 100 M G tablet Active DAILY November 01, 2020 1:00am metFORMIN hydrochloride 1000 mg oral tablet (15 sources) Biguanide Start: 07-24-2020 Metformin 1,000 MG tablet Active 1000 mg PO November 01, 2020 1:00am naproxen 250 mg oral tablet (1 source) Nonsteroidal Anti-inflammatory Drug Start: 07-04-2023 End: 07-14-2023 naproxen 250 mg oral tablet Dose : 250 mg = 1 tab(s), Oral, BID, X 10 day(s), # 20 tab(s), 0 Refill(s), 07/14/23 1:08:00 PM EDT, Pharmacy: [facility]/pharmacy #[id number], 160, cm, 06/30/23 18:36:00 EDT, Height, kg, 06/30/23 18:36:00 EDT, Dosing Weight Start Date: 07/04/23 Stop Date: 07/14/23 Status: Ordered Pen needles 8 mm (1 source) Start: 04-23-2021 Pen needles 8 mm See Instructions, Using Twice Daily. ONE BOX OF 100. BD UF 8mm 31 G (short) qs 3 month supply Diabetes Mellitus E11.9, # 2 EA, 0 Refill(s), [id number], 167.6, cm, 04/23/21 11:30:00 EDT, Height, 133.2, kg, 04/23/21 11:30:00 EDT, Dosi... Start Date: 04/23/21 Status: Ordered 0.25 mg, 0.5 mg dose 1.5 ml semaglutide 1.34 mg/ml pen injector (1 source) Start: 11-20-2022 End: 02-18-2023 Ozempic 2 mg/1.5 mL (0.25 mg or 0.5 mg dose) subcutaneous solution 1 mg, Subcutaneous, qWeek, 3 boxes, 12 needles rotate injection sites, # 9 mL, 0 Refill(s), [id number], Diabetes Diabetes mellitus, 167.6, cm, 11/20/22 11:29:00 EST, Height, kg, 11/20/22 11:29:00 EST, Dosing Weight Start Date: 11/20/22 Stop Date: 02/18/23 Status: Ordered simvastatin 5 mg oral tablet (14 sources) HMG-CoA Reductase Inhibitor Start: 07-16-2023 take 1 tablet by mouth once daily Simvastatin 5 mg tablet Active 5 mg PO DAILY July 16, 2023 12:00am Start: 08-20-2022 simvastatin 5 mg oral tablet Dose : 5 mg = 1 tab(s), Oral, qHS, # 90 tab(s), 3 Refill(s), [id number], Type 2 diabetes mellitus, 167.6, cm, 08/19/22 12:13:00 EST, Height, kg, 08/19/22 12:13:00 EST, Dosing Weight Start Date: 08/20/22 Status: Ordered Start: 08-28-2021 simvastatin 5 mg oral tablet Dose : 5 mg = 1 tab(s), Oral, qHS, # 90 tab(s), 3 Refill(s), Pharmacy: [facility]/pharmacy #[id number], Type 2 diabetes mellitus, 166.37, cm, 07/24/21 11:31:00 EDT, Height, kg, 07/24/21 11:31:00 EDT, Dosing Weight Start Date: 08/28/21 Status: Ordered SITagliptin 100 mg oral tablet (14 sources) Dipeptidyl Peptidase 4 Inhibitor Start: 11-01-2020 take 1 tablet by mouth once daily Sitagliptin Phosphate 100 MG tablet Active 100 mg PO DAILY November 01, 2020 1:00am traZODone hydrochloride 100 mg oral tablet (15 sources) Serotonin Reuptake Inhibitor Start: 02-18-2023 traZODone 100 mg oral tablet Dose : 100 mg = 1 tab(s), Oral, qHS, # 90 tab(s), 3 Refill(s), Pharmacy: [facility]/pharmacy #[id number], Insomnia, 168.91, cm, 02/18/23 11:25:00 EDT, Height, kg, 02/18/23 11:25:00 EDT, Dosing Weight Start Date: 02/18/23 Status: Ordered Start: 05-01-2022 traZODone 100 mg oral tablet Dose : 100 mg = 1 tab(s), Oral, qHS, # 90 tab(s), 3 Refill(s), Pharmacy: [facility]/pharmacy #[id number], Insomnia, 167.6, cm, 02/04/22 11:02:00 EDT, Height, kg, 02/04/22 11:02:00 EDT, Dosing Weight Start Date: 05/01/22 Status: Ordered Start: 07-24-2021 traZODone 100 mg oral tablet Dose : 100 mg = 1 tab(s), Oral, qHS, # 90 tab(s), 1 Refill(s), Pharmacy: [facility]/pharmacy #[id number], Insomnia, 166.37, cm, 07/24/21 11:31:00 EDT, Height, kg, 07/24/21 11:31:00 EDT, Dosing Weight Start Date: 07/24/21 Status: Ordered Start: 04-23-2021 traZODone 100 mg oral tablet Dose : 100 mg = 1 tab(s), Oral, qHS, # 90 tab(s), 1 Refill(s), Pharmacy: [facility]/pharmacy #[id number], Insomnia, 167.6, cm, 04/23/21 11:30:00 EDT, Height, kg, 04/23/21 11:30:00 EDT, Dosing Weight Start Date: 04/23/21 Status: Ordered Start: 11-01-2020 Trazodone 50 M G tablet Active 50 mg PO NEEDED as needed for Anxiety November 01, 2020 1:00am Trulicity 3 MG/0.5ML solutio n pen-injector (4 sources) Start: 08-03-2023 Trulicity 3 MG /0.5ML solution pen-injector Vitamin D3 25 mcg (1000 intl units) oral capsule (1 source) Start: 09-11-2021 Vitamin D3 25 mcg (1000 intl units) oral capsule Dose : 25 mcg = 1 cap(s), Oral, Daily, # 90 cap(s), 3 Refill(s), Pharmacy: [facility]/pharmacy #[id number], 166.37, cm, 07/24/21 11:31:00 EDT, Height, kg, 07/24/21 11:31:00 EDT, Dosing Weight Start Date: 09/11/21 Status: Ordered Vitamin D3 400 intl units (1 0 mcg) oral tablet (1 source) Start: 04-23-2021 Vitamin D3 400 intl units (10 mcg) oral tablet Dose : 20 mcg = 2 tab(s), Oral, qDay, # 180 tab(s), 3 Refill(s), Pharmacy: [facility]/pharmacy #[id number], Vitamin D deficiency, 167.6, cm, 04/23/21 11:30:00 EDT, Height, kg, 04/23/21 11:30:00 EDT, Dosing Weight Start Date: 04/23/21 Status: Ordered Vitamin D3 50 mcg (2000 intl units) oral tablet (2 sources) Start: 08-20-2022 Vitamin D3 50 mcg (2000 intl units) oral tablet Dose : 2,000 unit(s) = 1 tab(s), Oral, Daily, dose increase, # 90 tab(s), 3 Refill(s), Pharmacy: [facility]/pharmacy #[id number], Vitamin D deficiency, 167.6, cm, 08/19/22 12:13:00 EST, Height, kg, 08/19/22 12:13:00 EST, Dosing Weight Start Date: 08/20/22 Status: Ordered Completed/Discontinued Medications Medication Drug Class(es) Dates Sig [...] pain/diarrhea, # 120 packet(s), 0 Refill(s), Pharmacy: [facility]/pharmacy #[id number], Diarrhea, 167.6, cm, 02/04/22 11:02:00 EDT, [...] pain/diarrhea, # 120 packet(s), 0 Refill(s), Pharmacy: [facility]/pharmacy #[id number], Diarrhea, 167.6, cm, 02/04/22 11:02:00 EDT, Height, kg, 02/04/22 11:02:00 EDT, Dosing Weight Start Date: 04/03/22 Stop Date: 07/02/22 Status: Ordered clotrimazole 10 mg/ml topical cream (1 source) Azole Antifungal Start: 07-03-2023 clotrimazole 1% topical cream Apply 1 calos, Topical, BID, 0 Refill(s), Cream, 128 Start Date: 07/03/23 Status: Ordered fenofibrate 145 mg oral tablet (12 sources) Peroxisome Proliferator Receptor alpha Agonist Start: 11-01-2020 End: 07-16-2023 take 1 tablet by mouth once daily Fenofibrate Nanocrystallized 145 MG tablet Discontinued 145 mg PO DAILY November 01, 2020 1:00am July 16, 2023 10:59am triamcinolone acetonide 1 mg/ml topical cream (2 sources) Corticosteroid Start: 10-16-2020 triamcinolone 0.1% topical cream Apply 1 calos, Topical, BID, 0 Refill(s), Cream, 141.8 Start Date: 10/16/20 Status: Ordered Start: 10-16-2020 triamcinolone 0.1% topical cream Apply 1 calos, Topical, BID, 0 Refill(s), Cream, 141.8 Start Date: 10/16/20 Status: Ordered Problems Problem Classification Problem Date Documented Da te Episodic/Chronic Abdominal pain (1 source) Abdominal tenderness, unspecified site; Translations: [Abdominal tenderness, unspecified site] Onset: 01-12-2025 Episodic Diabetes mellitus with complications (20 sources) Neuropathy due to diabetes mellitus; Translations: [Type 2 diabetes mellitus with diabetic neuropathy, unspecified] Onset: 06-30-2023 02-06-2022 Chronic Comment on above: bowen 2 Diabetes mellitus without complication (9 sources) Diabetes mellitus; Translations: [Type 2 diabetes mellitus without complication] Onset: 06-30-2023 02-22-2020 Chronic Disorders of lipid metabolism (15 sources) Hyperlipidemia; Translations: [Hyperlipidemia, unspecified] 05-10-2019 Chronic E Codes: Fall (11 sources) Fall; Translations: [Unspecified fall, initial encounter] 11-08-2020 Episodic Essential hypertension (19 sources) Hypertensive disorder; Translations: [Essential hypertension] Onset: 06-30-2023 12-27-2015 Chronic Fracture of lower limb (20 sources) Closed fracture of shaft of fibula; Translations: [Unspecified fracture of shaft of unspecified fibula, initial encounter for closed fracture] Onset: 07-02-2023 Episodic Genitourinary symptoms and ill-defined conditions (4 sources) Urinary incontinence 07-25-2019 Chronic Inflammatory diseases of female pelvic organs (8 sources) Abscess of labia; Translations: [Abscess of vulva] 02-06-2024 Episodic Mood disorders (7 sources) Depressive disorder; Translations: [Major depressive disorder] Onset: 06-30-2023 11-15-2019 Chronic Neoplasms of unspecified nature or uncertain behavior (4 sources) Neoplasm of uncertain behavior of neck 05-15-2020 Episodic Osteoarthritis (4 sources) Osteoarthritis of multiple joints 11-15-2019 Chronic Other aftercare (1 source) Other custodial (current) drug therapy; Translations: [Other custodial (current) drug therapy] Onset: 01-12-2025 Episodic Other bone disease and musculoskeletal deformities (4 sources) Osteopenia 01-22-2021 Episodic Other nervous system disorders (4 sources) Disorder of the peripheral nervous system 01-10-2016 Chronic Other non-epithelial cancer of skin (4 sources) Basal cell carcinoma of neck 05-17-2020 Episodic Other non-traumatic joint disorders (11 sources) Ankle pain; Translations: [Pain in left ankle and joints of left foot] 07-16-2023 Episodic Other non-traumatic joint disorders (4 sources) Pain in left ankle and joints of left foot; Translations: [Pain in joint, ankle and foot] Onset: 10-14-2023 07-16-2023 Episodic Other non-traumatic joint disorders (1 source) Acute ankle pain; Translations: [Pain in left ankle and joints of left foot] 10-14-2023 Episodic Other nutritional; endocrine; and metabolic disorders (4 sources) Morbid obesity 01-22-2021 Chronic Other nutritional; endocrine; and metabolic disorders (1 source) Body mass index 40+ - severely obese 02-18-2023 Chronic Other nutritional; endocrine; and metabolic disorders (2 sources) Morbid (severe) obesity due to excess calories; Translations: [Morbid (severe) obesity due to excess calories] Onset: 06-30-2023 Chronic Other nutritional; endocrine; and metabolic disorders (1 source) Lipoprotein deficiency; Translations: [Lipoprotein deficiency] Onset: 09-30-2024 Chronic Pulmonary heart disease (2 sources) Pulmonary embolism 12-27-2015 Episodic Residual codes; unclassified (4 sources) Insomnia 11-15-2019 Episodic Skin and subcutaneous tissue infections (11 sources) Cellulitis of leg, excluding foot; Translations: [Cellulitis of left lower limb] 11-01-2020 Episodic Transient cerebral ischemia (2 sources) Transient cerebral ischemia 04-06-2019 Chronic Urinary tract infections (4 sources) Urinary tract infectious disease; Translations: [Urinary tract infection, site not specified] Onset: 07-01-2023 Episodic Results Test Name Value Interpretation Reference Range Facility Urine Cultureon 06-02-2025 URC #1 POSSIBLE E. COLI 0157. UNABLE TO CONFIRM, TESTING DISCONTINUED AT [facility]. Urine Culture Copy of report sent to Infection Control Printer [id number] 03/04/25 Savi MENDEZ. Urine Culture RESULTS CALLED TO XAVIER Flowers 03/06/25 1412 Lorrie Patterson. REPORT READ BACK BY . Urine Culture Urine Culture ESBL Escherichia coli [place] Count 80,000-100,000 MARKER ESBL producing OrganismA MARKER ESBL producing OrganismA Ampicillin Islt PREM >=32 R Ampicillin+Sulbac Islt PREM 16 Cefepime Islt PREM >=32 R cefTRIAXone Islt PREM >=64 R Ciprofloxacin Islt PREM >=4 R B-Lactamase Extended Susc Islt POS Gentamicin Islt PREM <=1 S levoFLOXacin Islt PREM >=8 R Meropenem Islt PREM <=0.25 S Nitrofurantoin Islt PREM 64 I Pip+Tazo Islt PREM 16 I TMP SMX Islt PREM >=320 R ESBL Escherichia coli: REACTION Amikacin Islt PREM 4 S Eravacycline Islt PREM <=0.12 Imipenem Islt PREM <=0.25 S Tobramycin Islt PREM <=1 S Normal [facility] Comment on above: Performed By: #### L 100.0500, L500.2500 #### [facility] [address] [place], [address] Bilirubin Test strip Ql (U)O rdered By: Balwinder Alves on 03-02-2025 Bilirubin Ql (U) Negative Negative [facility] Ketones Test strip Ql (U)Ord ered By: Balwinder Alves on 03-02-2025 Ketones Ql (U) Negative Negative [facility] Nitrite Test strip Ql (U)Ord ered By: Balwinder Alves on 03-02-2025 Nitrite Ql (U) Positive High Negative [facility] Protein Test strip Ql (U)Ord ered By: Balwinder Alves on 03-02-2025 Protein Ql (U) 30 mg/dl High Negative [facility] Urinalysis, Routine (Dipstic k)on 03-02-2025 BILIRUBIN URINE Negative Normal Negative [facility] Comment on above: Order Comment: 102.2 Performed By: #### L 100.0500, L500.2500 #### [facility] [address] [place], [address] Clarity (U) Sl. Cloudy Normal Clear [facility] Comment on above: Order Comment: 102.2 Performed By: #### L 100.0500, L500.2500 #### [facility] [address] [place], [address] Color (U) Yellow Normal Yellow [facility] Comment on above: Order Comment: 102.2 Performed By: #### L 100.0500, L500.2500 #### [facility] [address] [place], [address] GLUCOSE, UR Normal Normal Normal [facility] Comment on above: Order Comment: 102.2 Performed By: #### L 100.0500, L500.2500 #### [facility] [address] [place], [address] KETONE UR Negative Normal Negative [facility] Comment on above: Order Comment: 102.2 Performed By: #### L 100.0500, L500.2500 #### [facility] [address] [place], [address] LEUK ESTERASE 500 /ul Abnormal Negative [facility] Comment on above: Order Comment: 102.2 Performed By: #### L 100.0500, L500.2500 #### [facility] [address] [place], [address] Nitrite Ql (U) Positive Abnormal Negative [facility] Comment on above: Order Comment: 102.2 Performed By: #### L 100.0500, [id number] #### [facility] [address] [place], [address] OCCULT BLOOD-UR 50 /ul Abnormal Negative [facility] Comment on above: Order Comment: 102.2 Performed By: #### L 100.0500, L500.2500 #### [facility] [address] [place], [address] pH UR 6.0 Normal 5.0 - 8.0 [facility] Comment on above: Order Comment: 102.2 Performed By: #### L 100.0500, L500.2500 #### [facility] [address] [place], [address] PROT DIPSTX 30 mg/dl Abnormal Negative [facility] Comment on above: Order Comment: 102.2 Performed By: #### L 100.0500, L500.2500 #### [facility] [address] [place], [address] SP.GR. DIPSTX 1.010 Normal 1.002-1.030 [facility] Comment on above: Order Comment: 102.2 Performed By: #### L 100.0500, L500.2500 #### [facility] [address] [place], [address] UROBILI Normal Normal Normal [facility] Comment on above: Order Comment: 102.2 Performed By: #### L 100.0500, [id number] #### [facility] [address] [place], [address] Urine clarityOrdered By: Javed Alves on 03-02-2025 Clarity (U) Sl. Cloudy Clear [facility] Urine color determinationOrd ered By: Balwinder Alves on 03-02-2025 Color (U) Yellow Yellow [facility] Urine cultureOrdered By: Javed Alves on 03-02-2025 Bacteria identified Cx Nom (U) ESBL Escherichia coli Abnormal [facility] Urine glucose detectionOrder ed By: Balwinder Alves on 03-02-2025 Glucose Ql (U) Normal mg/dl Normal [facility] Urine leukocyte esterase det ection by dipstickOrdered By: Balwinder Alves on 03-02-2025 Leukocyte esterase Test strip Ql (U) 500 /ul High Negative [facility] Urine pHOrdered By: Balwinder blackman on 03-02-2025 pH (U) 6.0 [pH] 5.0 - 8.0 [facility] Urine specific gravity measu rementOrdered By: Balwinder Alves on 03-02-2025 Specific gravity (U) [Rel density] 1.010 1.002-1.030 [facility] Urine urobilinogen measureme ntOrdered By: Balwinder Alves on 03-02-2025 Urobilinogen Ql (U) Normal mg/dl Normal [facility] Urine Cultureon 02-10-2025 URC Copy of report sent to Infection Control Printer [id number] 02/09/25 08Amari MENDEZ. Urine Culture RESULTS CALLED TO AUSTEN GARCIA 02/09/25 0813 Alesia Barrera. REPORT READ BACK SAME. Urine Culture Urine Culture Urine Culture ESBL Escherichia coli [place] Count >100,000 MARKER ESBL producing OrganismA MARKER ESBL producing OrganismA Ampicillin Islt PREM >=32 R Ampicillin+Sulbac Islt PREM 16 Cefepime Islt PREM 16 R cefTRIAXone Islt PREM >=64 R Ciprofloxacin Islt PREM >=4 R B-Lactamase Extended Susc Islt POS Gentamicin Islt PREM <=1 S levoFLOXacin Islt PREM >=8 R Meropenem Islt PREM <=0.25 S Nitrofurantoin Islt PREM 256 R Pip+Tazo Islt PREM 16 I TMP SMX Islt PREM >=320 R ESBL Escherichia coli: REACTION Amikacin Islt PREM 2 S Eravacycline Islt PREM <=0.12 Imipenem Islt PREM <=0.25 S Tobramycin Islt PREM <=1 S Normal [facility] Comment on above: Performed By: #### L 100.0500, L500.2500 #### [facility] [address] [place] [address]. [place], [address] Bilirubin Test strip Ql (U)O rdered By: Balwinder Alves on 02-07-2025 Bilirubin Ql (U) Negative Negative [facility] Ketones Test strip Ql (U)Ord ered By: Balwinder Alves on 02-07-2025 Ketones Ql (U) Negative Negative [facility] Nitrite Test strip Ql (U)Ord ered By: Balwinder Alves on 02-07-2025 Nitrite Ql (U) Positive High Negative [facility] Protein Test strip Ql (U)Ord ered By: Balwinder Alves on 02-07-2025 Protein Ql (U) 15 mg/dl High Negative [facility] Urinalysis, Routine (Dipstic k)on 02-07-2025 Clarity (U) Clear Normal Clear [facility] Comment on above: Order Comment: 102.2 Performed By: #### L 100.0500, L500.2500 #### [facility] [address] [place], [address] Color (U) Yellow Normal Yellow [facility] Comment on above: Order Comment: 102.2 Performed By: #### L 100.0500, L500.2500 #### [facility] [address] [place], [address] BILIRUBIN URINE Negative Normal Negative [facility] Comment on above: Order Comment: 102.2 Performed By: #### L 100.0500, L500.2500 #### [facility] [address] [place], [address] GLUCOSE, UR Normal Normal Normal [facility] Comment on above: Order Comment: 102.2 Performed By: #### L 100.0500, L500.2500 #### [facility] [address] [place], [address] KETONE UR Negative Normal Negative [facility] Comment on above: Order Comment: 102.2 Performed By: #### L 100.0500, L500.2500 #### [facility] [address] [place], [address] LEUK ESTERASE 500 /ul Abnormal Negative [facility] Comment on above: Order Comment: 102.2 Performed By: #### L 100.0500, L500.2500 #### [facility] [address] [place], [address] Nitrite Ql (U) Positive Abnormal Negative [facility] Comment on above: Order Comment: 102.2 Performed By: #### L 100.0500, L500.2500 #### [facility] [address] [place], [address] OCCULT BLOOD-UR 25 /ul Abnormal Negative [facility] Comment on above: Order Comment: 102.2 Performed By: #### L 100.0500, L500.2500 #### [facility] [address] [place], [address] pH UR 6.5 Normal 5.0 - 8.0 [facility] Comment on above: Order Comment: 102.2 Performed By: #### L 100.0500, L500.2500 #### [facility] [address] [place], [address] PROT DIPSTX 15 mg/dl Abnormal Negative [facility] Comment on above: Order Comment: 102.2 Performed By: #### L 100.0500, L500.2500 #### [facility] [address] [place], [address] SP.GR. DIPSTX 1.005 Normal 1.002-1.030 [facility] Comment on above: Order Comment: 102.2 Performed By: #### L 100.0500, L500.2500 #### [facility] [address] [place], [address] UROBILI Normal Normal Normal [facility] Comment on above: Order Comment: 102.2 Performed By: #### L 100.0500, L500.2500 #### [facility] [address] [place], [address] Urine clarityOrdered By: Javed Alves on 02-07-2025 Clarity (U) Clear Clear [facility] Urine color determinationOrd ered By: Balwinder Alves on 02-07-2025 Color (U) Yellow Yellow [facility] Urine cultureOrdered By: Javed Alves on 02-07-2025 Bacteria identified Cx Nom (U) ESBL Escherichia coli Abnormal [facility] Urine glucose detectionOrder ed By: Balwinder Alves on 02-07-2025 Glucose Ql (U) Normal mg/dl Normal [facility] Urine leukocyte esterase det ection by dipstickOrdered By: Balwinder Alves on 02-07-2025 Leukocyte esterase Test strip Ql (U) 500 /ul High Negative [facility] Urine pHOrdered By: Balwinder blackman on 02-07-2025 pH (U) 6.5 [pH] 5.0 - 8.0 [facility] Urine specific gravity measu rementOrdered By: Balwinder Alves on 02-07-2025 Specific gravity (U) [Rel density] 1.005 1.002-1.030 [facility] Urine urobilinogen measureme ntOrdered By: Balwinder Alves on 02-07-2025 Urobilinogen Ql (U) Normal mg/dl Normal [facility] Urine Cultureon 01-27-2025 [facility]RC STRAIGHT CATH #1 Possible E.coli 0157. Confirmation testing unable to be performed, test discontinued at [facility]. Urine Culture [facility] 01/27[facility]25 1041 Lorrie Patterson. REPORT READ BACK BY . Urine Culture Copy of report sent to Infection Control Printer [id number] 01/27/25 1041 ESSENCE. Urine Culture ESBL Escherichia coli [place] Count 80,000-100,000 MARKER ESBL producing OrganismA MARKER ESBL producing OrganismA [place] Count 50,000-80,000 Proteus mirabilis Amikacin Islt PREM 4 Ampicillin Islt PREM >=32 R Ampicillin+Sulbac Islt PREM 16 Cefepime Islt PREM >=32 R Eravacycline Islt PREM <=0.12 S cefTRIAXone Islt PREM >=64 R Ciprofloxacin Islt PREM >=4 R B-Lactamase Extended Susc Islt POS Gentamicin Islt PREM <=1 S Imipenem Islt PREM <=0.25 S levoFLOXacin Islt PREM >=8 R Meropenem Islt PREM <=0.25 S Nitrofurantoin Islt PREM 32 S Pip+Tazo Islt PREM <=4 S Tobramycin Islt PREM <=1 S TMP SMX Islt PREM >=320 R Proteus mirabilis: REACTION Ampicillin Islt PREM <=2 S Ampicillin+Sulbac Islt PREM <=2 S Cefepime Islt PREM <=0.12 cefTRIAXone Islt PREM <=0.25 S Ciprofloxacin Islt PREM <=0.06 S Gentamicin Islt PREM <=1 S levoFLOXacin Islt PREM <=0.12 S Meropenem Islt PREM 2 S Nitrofurantoin Islt PREM 128 R Pip+Tazo Islt PREM <=4 S TMP SMX Islt PREM <=20 S Normal [facility] Comment on above: Performed By: #### L 100.0500, L500.2500 #### [facility] [address] [place], [address] Urinalysis, Completeon 01-24 BILIRUBIN URINE Negative Normal Negative [facility] Comment on above: Order Comment: 102.2 Performed By: #### L 100.0500, L500.2500 #### [facility] [address] [place], [address] Clarity (U) Sl. Cloudy Normal Clear [facility] Comment on above: Order Comment: 102.2 Performed By: #### L 100.0500, L500.2500 #### [facility] [address] [place], [address] Color (U) Yellow Normal Yellow [facility] Comment on above: Order Comment: 102.2 Performed By: #### L 100.0500, L500.2500 #### [facility] [address] [place], [address] GLUCOSE, UR Normal Normal Normal [facility] Comment on above: Order Comment: 102.2 Performed By: #### L 100.0500, L500.2500 #### [facility] [address] [place], [address] KETONE UR Negative Normal Negative [facility] Comment on above: Order Comment: 102.2 Performed By: #### L 100.0500, L500.2500 #### [facility] [address] [place], [address] LEUK ESTERASE 500 /ul Abnormal Negative [facility] Comment on above: Order Comment: 102.2 Performed By: #### L 100.0500, L500.2500 #### [facility] [address] [place], [address] Nitrite Ql (U) Positive Abnormal Negative [facility] Comment on above: Order Comment: 102.2 Performed By: #### L 100.0500, L500.2500 #### [facility] [address] [place], [address] OCCULT BLOOD-UR 50 /ul Abnormal Negative [facility] Comment on above: Order Comment: 102.2 Performed By: #### L 100.0500, L500.2500 #### [facility] [address] [place], [address] pH UR 6.5 Normal 5.0 - 8.0 [facility] Comment on above: Order Comment: 102.2 Performed By: #### L 100.0500, L500.2500 #### [facility] [address] [place], [address] PROT DIPSTX 15 mg/dl Abnormal Negative [facility] Comment on above: Order Comment: 102.2 Performed By: #### L 100.0500, L500.2500 #### [facility] [address] [place], [address] SP.GR. DIPSTX 1.010 Normal 1.002-1.030 [facility] Comment on above: Order Comment: 102.2 Performed By: #### L 100.0500, L500.2500 #### [facility] [address] [place], [address] UROBILI Normal Normal Normal [facility] Comment on above: Order Comment: 102.2 Performed By: #### L 100.0500, L500.2500 #### [facility] [address] [place], [address] Bilirubin Test strip Ql (U)O rdered By: Balwinder Alves on 01-23-2025 Bilirubin Ql (U) Negative Negative [facility] Epithelial cells.squamous LM Ql (Urine sed)Ordered By: Balwinder Alves on 01-23-2025 Epithelial cells.squamous LM.HPF (Urine sed) [#/Area] 0 /[HPF] 5-10 [facility] Glucose Ql (U)Ordered By: Jen Alves on 01-23-2025 Urine Glucose (UA) Normal mg/dl Normal [facility] Ketones Test strip Ql (U)Ord ered By: Balwinder Alves on 01-23-2025 Ketones Ql (U) Negative Negative [facility] Microscopic analysis of urin e for red blood cells (RBC)Ordered By: Balwinder Alves on 01-23-2025 Microscopic analysis of urine for red blood cells (RBC) 0-5 SEEN /hpf 0-5 [facility] Urine RBC 0-5 SEEN /hpf 0-5 [facility] Mucus LM Ql (Urine sed)Order ed By: Balwinder Alves on 01-23-2025 Mucus Ql (Urine sed) 0 SEEN /hpf [facility] Nitrite Test strip Ql (U)Ord ered By: Balwinder Alves on 01-23-2025 Nitrite Ql (U) Positive High Negative [facility] Protein Test strip Ql (U)Ord ered By: Balwinder Alves on 01-23-2025 Protein Ql (U) 15 mg/dl High Negative [facility] Squamous epithelial cells de tection in urine sediment by light microscopyOrdered By: Balwinder Alves on 01-23-2025 Epithelial cells.squamous LM Ql (Urine sed) 0-5 SEEN /hpf 5-10 [facility] Urine blood detectionOrdered By: Balwinder Alves on 01-23-2025 Urine Occult Blood 50 /ul High Negative [facility] Urine clarityOrdered By: Javed Alves on 01-23-2025 Clarity (U) Sl. Cloudy Clear [facility] Urine color determinationOrd ered By: Balwinder Alves on 01-23-2025 Color (U) Yellow Yellow [facility] Urine cultureOrdered By: Javed Alves on 01-23-2025 Bacteria identified Cx Nom (U) ESBL Escherichia coli Abnormal [facility] Bacteria identified Cx Nom (U) Proteus mirabilis Abnormal [facility] Urine glucose detectionOrder ed By: Balwinder Alves on 01-23-2025 Glucose Ql (U) Normal mg/dl Normal [facility] Urine leukocyte esterase det ection by dipstickOrdered By: Balwinder Alves on 01-23-2025 Leukocyte esterase Test strip Ql (U) 500 /ul High Negative [facility] Urine pHOrdered By: Balwinder blackman on 01-23-2025 pH (U) 6.5 [pH] 5.0 - 8.0 [facility] Urine sediment bacteria coun t by microscopy (number/high power field)Ordered By: Balwinder Alves on 01-23-2025 Bacteria LM.HPF (Urine sed) [#/Area] 2 /[HPF] None Seen [facility] Urine specific gravity measu rementOrdered By: Balwinder Alves on 01-23-2025 Specific gravity (U) [Rel density] 1.010 1.002-1.030 [facility] Urine urobilinogen measureme ntOrdered By: Balwinder Alves on 01-23-2025 Urobilinogen Ql (U) Normal mg/dl Normal [facility] Urobilinogen Ql (U)Ordered B y: Balwinder Alves on 01-23-2025 Urine Urobilinogen Normal mg/dl Normal [facility] White blood cell countOrdere d By: Balwinder Alves on 01-23-2025 Urine WBC 5-10 SEEN /hpf 0-5 [facility] White blood cell count 5-10 SEEN /hpf 0-5 [facility] Urine Cultureon 01-13-2025 URC #1 POSSIBLE ECOLI 0157. Unable to send to [facility] for confirmation testing due to new [facility] policies regarding serotyping and virulence profiling. Urine Culture Copy of report sent to Infection Control Printer [id number] 01/11/25 1618 ANDREA. ESBL Escherichia coli [place] Count 50,000-80,000 MARKER ESBL producing OrganismA MARKER ESBL producing OrganismA [place] Count 50,000-80,000 Escherichia coli [place] Count 50,000-80,000 ESBL Escherichia coli: REACTION Proteus mirabilis Ampicillin+Sulbac Islt PREM >=32 Cefepime Islt PREM >=32 R cefTRIAXone Islt PREM >=64 Ciprofloxacin Islt PREM >=4 R B-Lactamase Extended Susc Islt POS Gentamicin Islt PERM <=1 S levoFLOXacin Islt PREM >=8 R Meropenem Islt PREM <=0.25 S Nitrofurantoin Islt PREM 64 I Pip+Tazo Islt PREM 16 I TMP SMX Islt PREM >=320 R Escherichia coli: REACTION Amikacin Islt PREM 2 S Eravacycline Islt PREM <=0.12 S Imipenem Islt PREM <=0.25 S Tobramycin Islt PREM <=1 Proteus mirabilis: REACTION Ampicillin Islt PREM <=2 S Ampicillin+Sulbac Islt PREM <=2 S Cefepime Islt PREM <=0.12 S cefTRIAXone Islt PREM <=0.25 Ciprofloxacin Islt PREM <=0.06 S Gentamicin Islt PREM <=1 S levoFLOXacin Islt PREM <=0.12 S Meropenem Islt PREM 1 S Nitrofurantoin Islt PREM 256 R Pip+Tazo Islt PREM <=4 S TMP SMX Islt PREM <=20 S Normal [facility] Comment on above: Performed By: #### M 100.2200, L400 #### [facility] [address] [facility] [place], [address] Bilirubin Test strip Ql (U)O rdered By: Balwinder Alves on 01-09-2025 Bilirubin Ql (U) Negative Negative [facility] Glucose Ql (U)Ordered By: Jen Alves on 01-09-2025 Urine Glucose (UA) Normal mg/dl Normal [facility] Ketones Test strip Ql (U)Ord ered By: Balwinder Alves on 01-09-2025 Ketones Ql (U) Negative Negative [facility] Nitrite Test strip Ql (U)Ord ered By: Balwinder Alves on 01-09-2025 Nitrite Ql (U) Positive High Negative [facility] Protein Test strip Ql (U)Ord ered By: Balwinder Alves on 01-09-2025 Protein Ql (U) 30 mg/dl High Negative [facility] Urinalysis, Routine (Dipstic k)on 01-09-2025 BILIRUBIN URINE Negative Normal Negative [facility] Comment on above: Order Comment: ALFA TER SPECIMEN Performed By: #### M 100.2200, L400.2010 #### [facility] [address] [facility] [place], [address] Clarity (U) Cloudy Normal Clear [facility] Comment on above: Order Comment: ALFA TER SPECIMEN Performed By: #### M , L4.2010 #### [facility] [address] [place], [address] Color (U) Yellow Normal Yellow [facility] Comment on above: Order Comment: ALFA TER SPECIMEN Performed By: #### M , L4.2010 #### [facility] [address] [place], [address] GLUCOSE, UR Normal Normal Normal [facility] Comment on above: Order Comment: ALFA TER SPECIMEN Performed By: #### M , L4 #### [facility] [address] [place], [address] KETONE UR Negative Normal Negative [facility] Comment on above: Order Comment: ALFA TER SPECIMEN Performed By: #### M , L4 #### [facility] [address] [place], [address] LEUK ESTERASE 500 /ul Abnormal Negative [facility] Comment on above: Order Comment: ALFA TER SPECIMEN Performed By: #### M , L4 #### [facility] [address] [place], [address] Nitrite Ql (U) Positive Abnormal Negative [facility] Comment on above: Order Comment: ALFA TER SPECIMEN Performed By: #### M , L4 #### [facility] [address] [place], [address] OCCULT BLOOD-UR 150 /ul Abnormal Negative [facility] Comment on above: Order Comment: ALFA TER SPECIMEN Performed By: #### M , L4 #### [facility] [address] [place], [address] pH UR 6.5 Normal 5.0 - 8.0 [facility] Comment on above: Order Comment: ALFA TER SPECIMEN Performed By: #### M 100.2200, L4.2010 #### [facility] [address] [place], [address] PROT DIPSTX 30 mg/dl Abnormal Negative [facility] Comment on above: Order Comment: ALFA TER SPECIMEN Performed By: #### M 100.2200, L400.2010 #### [facility] [address] [place], [address] SP.GR. DIPSTX 1.010 Normal 1.002-1.030 [facility] Comment on above: Order Comment: AFLA TER SPECIMEN Performed By: #### M 100.0, L4.2010 #### [facility] [address] [place], [address] UROBILI Normal Normal Normal [facility] Comment on above: Order Comment: ALFA TER SPECIMEN Performed By: #### M 100.2199, L4.2010 #### [facility] [address] [place], [address] Urine blood detectionOrdered By: Balwinder Alves on 01-09-2025 Urine Occult Blood 150 /ul High Negative [facility] Urine clarityOrdered By: Javed Alves on 01-09-2025 Clarity (U) Cloudy Clear [facility] Urine color determinationOrd ered By: Balwinder Alves on 01-09-2025 Color (U) Yellow Yellow [facility] Urine cultureOrdered By: Javed Alves on 01-09-2025 Bacteria identified Cx Nom (U) ESBL Escherichia coli Abnormal [facility] Bacteria identified Cx Nom (U) Escherichia coli Abnormal [facility] Bacteria identified Cx Nom (U) Proteus mirabilis Abnormal [facility] Urine glucose detectionOrder ed By: Balwinder Alves on 01-09-2025 Glucose Ql (U) Normal mg/dl Normal [facility] Urine leukocyte esterase det ection by dipstickOrdered By: Balwinder Alves on 01-09-2025 Leukocyte esterase Test strip Ql (U) 500 /ul High Negative [facility] Urine pHOrdered By: Balwinder blackman on 01-09-2025 pH (U) 6.5 [pH] 5.0 - 8.0 [facility] Urine specific gravity measu rementOrdered By: Balwinder Nelson on 01-09-2025 Specific gravity (U) [Rel density] 1.010 1.002-1.030 [facility] Urine urobilinogen measureme ntOrdered By: Balwinder Alves on 01-09-2025 Urobilinogen Ql (U) Normal mg/dl Normal [facility] Urobilinogen Ql (U)Ordered B y: Balwinder Alves on 01-09-2025 Urine Urobilinogen Normal mg/dl Normal [facility] Urine Cultureon 01-07-2025 URC #2 Possible E.coli 0157. Unable to send to [facility] Laboratory for confirmation testing due to new [facility] policies regarding serotyping and virulence profiling. Urine Culture Copy of report sent to In[facility]inter [id number] 01/06/25 1319 ANDREA. Urine Culture RESULTS CALLED TO TRISH BOYCE 01/06/25 1321 Alesia Barrera. REPORT READ BACK . Proteus mirabilis [place] Count 50,000-80,000 ESBL Escherichia coli ESBL Escherichia coli MARKER ESBL producing Organism Proteus mirabilis: REACTION MARKER ESBL producing OrganismA Ampicillin+Sulbac Islt PREM <=2 S Cefepime Islt PREM <=0.12 cefTRIAXone Islt PREM <=0.25 S Ciprofloxacin Islt PREM <=0.06 S Gentamicin Islt PREM <=1 S levoFLOXacin Islt PREM <=0.12 S Meropenem Islt PREM 1 S Nitrofurantoin Islt PREM 128 R Pip+Tazo Islt PREM <=4 S TMP SMX Islt PREM <=20 S ESBL Escherichia coli: REACTION Ampicillin Islt PREM >=32 R Ampicillin+Sulbac Islt PREM 16 I Cefepime Islt PREM >=32 cefTRIAXone Islt PREM >=64 R Ciprofloxacin Islt PREM >=4 R B-Lactamase Extended Susc Islt POS Gentamicin Islt PREM <=1 S levoFLOXacin Islt PREM >=8 R Meropenem Islt PREM <=0.25 S Nitrofurantoin Islt PREM 64 I Pip+Tazo Islt PREM 16 I TMP SMX Islt PREM >=320 R ESBL Escherichia coli: REACTION Amikacin Islt PREM 4 S Eravacycline Islt PREM <=0.12 S Imipenem Islt PREM <=0.25 Tobramycin Islt PREM <=1 S Normal [facility] Comment on above: Performed By: #### M .2199, #### [facility] [address] [place], [address] Urinalysis, Routine (Dipstic k)on 01-03-2025 BILIRUBIN URINE Negative Normal Negative [facility] Comment on above: Order Comment: CLEAN CATCH Performed By: #### M , L4 #### [facility] [address] [place], [address] Clarity (U) Sl. Cloudy Normal Clear [facility] Comment on above: Order Comment: CLEAN CATCH Performed By: #### M #### [facility] [address] [place], [address] Color (U) Yellow Normal Yellow [facility] Comment on above: Order Comment: CLEAN CATCH Performed By: #### M L4 #### [facility] [address] [place], [address] GLUCOSE, UR Normal Normal Normal [facility] Comment on above: Order Comment: CLEAN CATCH Performed By: #### M 100 L4 #### [facility] [address] [place], [address] KETONE UR Negative Normal Negative [facility] Comment on above: Order Comment: CLEAN CATCH Performed By: #### M 100, L4 #### [facility] [address] [place], [address] LEUK ESTERASE 500 /ul Abnormal Negative [facility] Comment on above: Order Comment: CLEAN CATCH Performed By: #### M 100, L4 #### [facility] [address] [place], [address] Nitrite Ql (U) Positive Abnormal Negative [facility] Comment on above: Order Comment: CLEAN CATCH Performed By: #### M 100.2200, L400.2010 #### [facility] [address] [place], [address] OCCULT BLOOD-UR 150 /ul Abnormal Negative [facility] Comment on above: Order Comment: CLEAN CATCH Performed By: #### M 100.2199, L4.2010 #### [facility] [address] [place], [address] pH UR 6.5 Normal 5.0 - 8.0 [facility] Comment on above: Order Comment: CLEAN CATCH Performed By: #### M 100.2199, L400.2010 #### [facility] [address] [place], [address] PROT DIPSTX 30 mg/dl Abnormal Negative [facility] Comment on above: Order Comment: CLEAN CATCH Performed By: #### M 100.2199, L400 #### [facility] [address] [place], [address] SP.GR. DIPSTX 1.010 Normal 1.002-1.030 [facility] Comment on above: Order Comment: CLEAN CATCH Performed By: #### M 100.2199, L400 #### [facility] [address] [place], [address] UROBILI Normal Normal Normal [facility] Comment on above: Order Comment: CLEAN CATCH Performed By: #### M 100.2199, L400.2010 #### [facility] [address] [place], [address] Bilirubin Test strip Ql (U)O rdered By: Balwinder Alves on 01-02-2025 Bilirubin Ql (U) Negative Negative [facility] Glucose Ql (U)Ordered By: Jen Alves on 01-02-2025 Urine Glucose (UA) Normal mg/dl Normal [facility] Ketones Test strip Ql (U)Ord ered By: Balwinder Alves on 01-02-2025 Ketones Ql (U) Negative Negative [facility] Nitrite Test strip Ql (U)Ord ered By: Balwinder Alves on 01-02-2025 Nitrite Ql (U) Positive High Negative [facility] Protein Test strip Ql (U)Ord ered By: Balwinder Alves on 01-02-2025 Protein Ql (U) 30 mg/dl High Negative [facility] Urine blood detectionOrdered By: Balwinder Alves on 01-02-2025 Urine Occult Blood 150 /ul High Negative [facility] Urine clarityOrdered By: Javed Alves on 01-02-2025 Clarity (U) Sl. Cloudy Clear [facility] Urine color determinationOrd ered By: Balwinder Alves on 01-02-2025 Color (U) Yellow Yellow [facility] Urine cultureOrdered By: Javed Alves on 01-02-2025 Bacteria identified Cx Nom (U) Proteus mirabilis Abnormal [facility] Bacteria identified Cx Nom (U) ESBL Escherichia coli Abnormal [facility] Urine glucose detectionOrder ed By: Balwinder Alves on 01-02-2025 Glucose Ql (U) Normal mg/dl Normal [facility] Urine leukocyte esterase det ection by dipstickOrdered By: Balwinder Alves on 01-02-2025 Leukocyte esterase Test strip Ql (U) 500 /ul High Negative [facility] Urine pHOrdered By: Balwinder blackman on 01-02-2025 pH (U) 6.5 [pH] 5.0 - 8.0 [facility] Urine specific gravity measu rementOrdered By: Balwinder Alves on 01-02-2025 Specific gravity (U) [Rel density] 1.010 1.002-1.030 [facility] Urine urobilinogen measureme ntOrdered By: Balwinder Alves on 01-02-2025 Urobilinogen Ql (U) Normal mg/dl Normal [facility] Urobilinogen Ql (U)Ordered B y: Balwinder Alves on 01-02-2025 Urine Urobilinogen Normal mg/dl Normal [facility] Absolute lymphocyte countOrd ered By: Balwinder Alves on 12-26-2024 Lymphocytes Auto (Unsp spec) [#/Vol] 1.77 10*3/uL 0.83-4.51 [facility] Absolute neutrophil countOrd ered By: Balwinder Alves on 12-26-2024 Neutrophils (Bld) [#/Vol] 4.6 10*3/uL 2.0-7.7 [facility] Anion gap in Serum or Plasma Ordered By: Balwinder Alves on 12-26-2024 Anion gap [Moles/Vol] 9 mmol/L 5- [facility] Automated lymphocyte count a s percentage of total leukocytesOrdered By: Balwinder Alves on 12-26-2024 Lymphocytes/100 WBC Auto (Unsp spec) 24.8 % [facility] BUN/creatinine ratioOrdered By: Balwinder Alves on 12-26-2024 Urea nitrogen/Creatinine [Mass ratio] 12.2 mg/mg - [facility] Basic Metabolic Profile (BMP )on 12-26-2024 BUN/CRE 12.2 RATIO Normal 07-24 [facility] Comment on above: Order Comment: 102-2 Performed By: #### L 500.2500, L100.0100 #### [facility] [address] [place], [address] Calcium [Mass/Vol] 9.1 mg/dL Normal 7.6-11.0 [facility] Comment on above: Order Comment: 102-2 Performed By: #### L 500.2500, L100.0100 #### [facility] [address] [place], [address] Chloride [Moles/Vol] 99 mmol/L Normal 98-108 [facility] Comment on above: Order Comment: 102-2 Performed By: #### L 500.2500, L100.0100 #### [facility] [address] [place], [address] CO2 [Moles/Vol] 29.0 mmol/L Normal 21.0-32.0 [facility] Comment on above: Order Comment: 102-2 Performed By: #### L 500.2500, L100.0100 #### [facility] [address] [place], [address] Creatinine [Mass/Vol] 0.67 mg/dL Low 0.70-1.20 [facility] Comment on above: Order Comment: 102-2 Performed By: #### L 500.2500, L100.0100 #### [facility] [address] [place], [address] GAP 9 Normal 5-15 [facility] Comment on above: Order Comment: 102-2 Performed By: #### L 500.2500, L100.0100 #### [facility] [address] [place], [address] GFR/1.73 sq M.predicted among non-blacks MDRD (S/P/Bld) [Vol rate/Area] 88 mL/min/{1.73_m2} Normal >60 [facility] Comment on above: Order Comment: 102-2 Result Comment: mL/m in/1.73m2 CKD-EPI Creatinine Equation (2020) Performed By: #### L 500.2500, L100.0100 #### [facility] [address] [place], [address] Glucose [Mass/Vol] 215 mg/dL High 70-99 [facility] Comment on above: Order Comment: 102-2 Performed By: #### L 500.2500, L100.0100 #### [facility] [address] [place], [address] Potassium [Moles/Vol] 4.6 mmol/L Normal 3.3-5.1 [facility] Comment on above: Order Comment: 102-2 Performed By: #### L 500.2500, L100.0100 #### [facility] [address] [place], [address] Sodium [Moles/Vol] 137 mmol/L Normal 133-145 [facility] Comment on above: Order Comment: 102-2 Performed By: #### L 500.2500, L100.0100 #### [facility] [address] [place], [address] Urea nitrogen [Mass/Vol] 8 mg/dL Normal 4-19 [facility] Comment on above: Order Comment: 102-2 Performed By: #### L 500.2500, L100.0100 #### [facility] [address] [place], [address] Basophil percentageOrdered B y: Balwinder Alves on 12-26-2024 Basophils/100 WBC (Bld) 0.6 % 0-1 [facility] CBC W/Diff, Automatedon 12-04 Absolute Lymph 1.77 X10 3/uL Normal 0.83-4.51 [facility] Comment on above: Order Comment: 102-2 Performed By: #### L 500.2500, L100.0100 #### [facility] [address] [place], [address] Absolute Neut 4.6 X10 3/uL Normal 2.0-7.7 [facility] Comment on above: Order Comment: 102-2 Performed By: #### L 500.2500, L100.0100 #### [facility] [address] [place], [address] Basophils/100 WBC (Bld) 0.6 % Normal 0-1 [facility] Comment on above: Order Comment: 102-2 Performed By: #### L 500.2500, L100.0100 #### [facility] [address] [place], [address] Eosinophils/100 WBC (Bld) 2.9 % Normal 0-5 [facility] Comment on above: Order Comment: 102-2 Performed By: #### L 500.2500, L100.0100 #### [facility] [address] [place], [address] Erythrocyte distribution width (RBC) [Ratio] 13.9 % Normal 11.6-14.6 [facility] Comment on above: Order Comment: 102-2 Performed By: #### L 500.2500, L100.0100 #### [facility] [address] [place], [address] Hematocrit (Bld) [Volume fraction] 35.6 % Low 37-47 [facility] Comment on above: Order Comment: 102-2 Performed By: #### L 500.2500, L100.0100 #### [facility] [address] [place], [address] Hemoglobin (Bld) [Mass/Vol] 10.9 g/dL Low 12.0-15.0 [facility] Comment on above: Order Comment: 102-2 Performed By: #### L 500.2500, L100.0100 #### [facility] [address] [place], [address] IG% 0.700 Normal 0.0-0.9 [facility] Comment on above: Order Comment: 102-2 Result Comment: IG% - Immature Granulocytes (promyelocytes, myelocytes and metamyelocytes) > 1% indicates that a LEFT SHIFT is Present. Performed By: #### L 500.2500, L100.0100 #### [facility] [address] [place], [address] Lymphocytes/100 WBC (Bld) 24.8 % Normal 19-41 [facility] Comment on above: Order Comment: 102-2 Performed By: #### L 500.2500, L100.0100 #### [facility] [address] [place], [address] MCH (RBC) [Entitic mass] 28.8 pg Normal 27.0-32.0 [facility] Comment on above: Order Comment: 102-2 Performed By: #### L 500.2500, L100.0100 #### [facility] [address] [place], [address] MCHC (RBC) [Mass/Vol] 30.6 g/dL Low 32-36 [facility] Comment on above: Order Comment: 102-2 Performed By: #### L 500.2500, L100.0100 #### [facility] [address] [place], [address] MCV (RBC) [Entitic vol] 93.9 fL Normal 81-99 [facility] Comment on above: Order Comment: 102-2 Performed By: #### L 500.2500, L100.0100 #### [facility] [address] [place], [address] Monocytes/100 WBC (Bld) 6.3 % Normal 0-10 [facility] Comment on above: Order Comment: 102-2 Performed By: #### L 500.2500, L100.0100 #### [facility] [address] [place], [address] Neutrophils/100 WBC (Bld) 64.7 % Normal 47-70 [facility] Comment on above: Order Comment: 102-2 Performed By: #### L 500.2500, L100.0100 #### [facility] [address] [place], [address] Nucleated RBC (Bld) [#/Vol] 0 10*3/uL Normal 0-5 [facility] Comment on above: Order Comment: 102-2 Performed By: #### L 500.2500, L100.0100 #### [facility] [address] [place], [address] Platelet mean volume (Bld) [Entitic vol] 8.6 fL Normal 6.2-12.0 [facility] Comment on above: Order Comment: 102-2 Performed By: #### L 500.2500, L100.0100 #### [facility] [address] [place], [address] Platelets (Bld) [#/Vol] 221 10*3/uL Normal 150-450 [facility] Comment on above: Order Comment: 102-2 Performed By: #### L 500.2500, L100.0100 #### [facility] [address] [place], [address] RBC (Bld) [#/Vol] 3.79 10*6/uL Low 4.2-5.4 [facility] Comment on above: Order Comment: 102-2 Performed By: #### L 500.2500, L100.0100 #### [facility] [address] [place], [address] RDW SD 47.6 fl High 35.1-43.9 [facility] Comment on above: Order Comment: 102-2 Performed By: #### L 500.2500, L100.0100 #### [facility] [address] [place], [address] WBC (Bld) [#/Vol] 7.1 10*3/uL Normal 4.4-11.0 [facility] Comment on above: Order Comment: 102-2 Performed By: #### L 500.2500, L100.0100 #### [facility] [address] [place], [address] Carbon dioxide, total [Moles /volume] in Central venous bloodOrdered By: Balwinder Alves on 12-26-2024 CO2 [Moles/Vol] 29.0 mmol/L 21.0-32.0 [facility] Chloride assayOrdered By: Jen Alves on 12-26-2024 Chloride [Moles/Vol] 99 mmol/L 98-108 [facility] Eosinophil percentageOrdered By: Balwinder Alves on 12-26-2024 Eosinophils/100 WBC (Bld) 2.9 % 0-5 [facility] Erythrocyte distribution wid th (RBC) [Ratio]Ordered By: Balwinder Alves on 12-26-2024 Erythrocyte distribution width (RBC) [Entitic vol] 47.6 fL High 35.1-43.9 [facility] Erythrocyte distribution wid th ratioOrdered By: Balwinder Alves on 12-26-2024 Erythrocyte distribution width (RBC) [Ratio] 13.9 % 11.6-14.6 [facility] Erythrocyte distribution wid th standard deviationOrdered By: Balwinder Alves on 12-26-2024 Erythrocyte distribution width (RBC) [Ratio] 47.6 fl High 35.1-43.9 [facility] GFR/1.73 sq M.predicted [place] non-blacks MDRD (S/P/Bld) [Vol rate/Area]Ordered By: Balwinder Alves on 12-26-2024 Estimated GFR (MDRD) Non-Af Amer 88 >60 [facility] Comment on above: mL/min/1.73m2 CKD-EP I Creatinine Equation (2020) Glomerular filtration rate ( GFR) estimation/1.73 sq m using serum, plasma, or whole bOrdered By: Balwinder Alves on 12-26-2024 GFR/1.73 sq M.predicted among non-blacks MDRD (S/P/Bld) [Vol rate/Area] 88 mL/min/{1.73_m2} >60 [facility] Comment on above: mL/min/1.73m2 CKD-EP I Creatinine Equation (2020) Hematocrit Auto (Bld) [Volum e fraction]Ordered By: Balwinder Alves on 12-26-2024 Hematocrit (Bld) [Volume fraction] 35.6 % Low 37-47 [facility] Hemoglobin measurementOrdere d By: Balwinder Alves on 12-26-2024 Hemoglobin (Bld) [Mass/Vol] 10.9 g/dL Low 12.0-15.0 [facility] Immature granulocytes/100 WB C Auto (Bld)Ordered By: Balwinder Alves on 12-26-2024 Immature granulocytes/100 WBC (Bld) 0.700 % 0.0-0.9 [facility] Comment on above: IG% - Immature Granu locytes (promyelocytes, myelocytes and metamyelocytes) > 1% indicates that a LEFT SHIFT is Present. Lymphocytes Auto (Unsp spec) [#/Vol]Ordered By: Balwinder Alves on 12-26-2024 Lymphocytes (Bld) [#/Vol] 1.77 10*3/uL 0.83-4.51 [facility] Lymphocytes/100 WBC Auto (Un sp spec)Ordered By: Balwinder Alves on 12-26-2024 Lymphocytes/100 WBC (Bld) 24.8 % 19-41 [facility] MCV (mean corpuscular volume ) determinationOrdered By: Balwinder Alves on 12-26-2024 MCV (RBC) [Entitic vol] 93.9 fL 81-99 [facility] Mean corpuscular hemoglobin (MCH) determinationOrdered By: Balwinder Alves on 12-26-2024 MCH (RBC) [Entitic mass] 28.8 pg 27.0-32.0 [facility] Mean corpuscular hemoglobin concentration (MCHC) determinationOrdered By: Balwinder Alves on 12-26-2024 MCHC (RBC) [Mass/Vol] 30.6 g/dL Low 32-36 [facility] Mean platelet volume determi nationOrdered By: Balwinder Alves on 12-26-2024 Platelet mean volume (Bld) [Entitic vol] 8.6 fL 6.2-12.0 [facility] Monocyte percentageOrdered B y: Balwinder Alves on 12-26-2024 Monocytes/100 WBC (Bld) 6.3 % 0-10 [facility] Neutrophil percentageOrdered By: Balwinder Alves on 12-26-2024 Neutrophils/100 WBC (Bld) 64.7 % 47-70 [facility] Nucleated red blood cell per centageOrdered By: Balwinder Alves on 12-26-2024 Nucleated RBC/100 WBC (Bld) [Ratio] 0 % 0-5 [facility] Platelet countOrdered By: Jen Alves on 12-26-2024 Platelets (Bld) [#/Vol] 221 10*3/uL 150-450 [facility] Potassium (Unsp spec) [Mass/ Vol]Ordered By: Balwinder Alves on 12-26-2024 Potassium [Moles/Vol] 4.6 mmol/L 3.3-5.1 [facility] Potassium measurement (mass/ volume)Ordered By: Balwinder Alves on 12-26-2024 Potassium (Unsp spec) [Mass/Vol] 4.6 mmol/L 3.3-5.1 [facility] RBC Auto (Bld) [#/Vol]Ordere d By: Balwinder Alves on 12-26-2024 RBC (Bld) [#/Vol] 3.79 10*6/uL Low 4.2-5.4 [facility] Serum creatinine measurement (mass/volume)Ordered By: Balwinder Alves on 12-26-2024 Creatinine [Mass/Vol] 0.67 mg/dL Low 0.70-1.20 [facility] Serum glucose measurement (m ass/volume)Ordered By: Balwinder Alves on 12-26-2024 Glucose [Mass/Vol] 215 mg/dL High 70-99 [facility] Serum or plasma calcium jacqueline urement (mass/volume)Ordered By: Balwinder Alves on 12-26-2024 Calcium [Mass/Vol] 9.1 mg/dL 7.6-11.0 [facility] Serum or plasma urea nitroge n measurement (mass/volume)Ordered By: Balwinder Alves on 12-26-2024 Urea nitrogen [Mass/Vol] 8 mg/dL 4-19 [facility] Sodium levelOrdered By: Balwinder Alves on 12-26-2024 Sodium [Moles/Vol] 137 mmol/L 133-145 [facility] White blood cell (WBC) count Ordered By: Balwinder Alves on 12-26-2024 WBC (Bld) [#/Vol] 7.1 10*3/uL 4.4-11.0 [facility] Anion gap in Serum or Plasma Ordered By: Balwinder Alves on 12-16-2024 Anion gap [Moles/Vol] 12 mmol/L - [facility] BUN/creatinine ratioOrdered By: Balwinder Alves on 12-16-2024 Urea nitrogen/Creatinine [Mass ratio] 12.7 mg/mg 07-24 [facility] Basic Metabolic Profile (BMP )on 12-16-2024 BUN/CRE 12.7 RATIO Normal 07-24 [facility] Comment on above: Performed By: #### L 100.0500, L500.2500 #### [facility] [address] [place], [address] Calcium [Mass/Vol] 9.5 mg/dL Normal 7.6-11.0 [facility] Comment on above: Performed By: #### L 100.0500, L500.2500 #### [facility] [address] [place], [address] Chloride [Moles/Vol] 98 mmol/L Normal 98-108 [facility] Comment on above: Performed By: #### L 100.0500, L500.2500 #### [facility] [address] [place], [address] CO2 [Moles/Vol] 26.7 mmol/L Normal 21.0-32.0 [facility] Comment on above: Performed By: #### L 100.0500, L500.2500 #### [facility] [address] [place], [address] Creatinine [Mass/Vol] 0.67 mg/dL Low 0.70-1.20 [facility] Comment on above: Performed By: #### L 100.0500, [id number] #### [facility] [address] [place], [address] GAP 12 Normal 5-15 [facility] Comment on above: Performed By: #### L 100.0500, L500.2500 #### [facility] [address] [place], [address] GFR/1.73 sq M.predicted among non-blacks MDRD (S/P/Bld) [Vol rate/Area] 88 mL/min/{1.73_m2} Normal >60 [facility] Comment on above: Result Comment: mL/m in/1.73m2 CKD-EPI Creatinine Equation (2020) Performed By: #### L 100.0500, L500.2500 #### [facility] [address] [place], [address] Glucose [Mass/Vol] 201 mg/dL High 70-99 [facility] Comment on above: Performed By: #### L 100.0500, L500.2500 #### [facility] [address] [place], [address] Potassium [Moles/Vol] 4.6 mmol/L Normal 3.3-5.1 [facility] Comment on above: Performed By: #### L 100.0500, L500.2500 #### [facility] [address] [place], [address] Sodium [Moles/Vol] 137 mmol/L Normal 133-145 [facility] Comment on above: Performed By: #### L 100.0500, L500.2500 #### [facility] [address] [place], [address] Urea nitrogen [Mass/Vol] 8 mg/dL Normal 4-19 [facility] Comment on above: Performed By: #### L 100.0500, L500.2500 #### [facility] [address] [place], [address] CBC-Complete Blood Cnt No Di ffon 12-16-2024 Erythrocyte distribution width (RBC) [Ratio] 13.8 % Normal 11.6-14.6 [facility] Comment on above: Performed By: #### L 100.0500, L500.2500 #### [facility] [address] [place], [address] Hematocrit (Bld) [Volume fraction] 36.2 % Low 37-47 [facility] Comment on above: Performed By: #### L 100.0500, L500.2500 #### [facility] [address] [place], [address] Hemoglobin (Bld) [Mass/Vol] 11.0 g/dL Low 12.0-15.0 [facility] Comment on above: Performed By: #### L 100.0500, L500.2500 #### [facility] [address] [place], [address] MCH (RBC) [Entitic mass] 28.2 pg Normal 27.0-32.0 [facility] Comment on above: Performed By: #### L 100.0500, L500.2500 #### [facility] [address] [place], [address] MCHC (RBC) [Mass/Vol] 30.4 g/dL Low 32-36 [facility] Comment on above: Performed By: #### L 100.0500, L500.2500 #### [facility] [address] [place], [address] MCV (RBC) [Entitic vol] 92.8 fL Normal 81-99 [facility] Comment on above: Performed By: #### L 100.0500, L500.2500 #### [facility] [address] [place], [address] Platelet mean volume (Bld) [Entitic vol] 8.4 fL Normal 6.2-12.0 [facility] Comment on above: Performed By: #### L 100.0500, L500.2500 #### [facility] [address] [place], [address] Platelets (Bld) [#/Vol] 231 10*3/uL Normal 150-450 [facility] Comment on above: Performed By: #### L 100.0500, L500.2500 #### [facility] [address] [place], [address] RBC (Bld) [#/Vol] 3.90 10*6/uL Low 4.2-5.4 [facility] Comment on above: Performed By: #### L 100.0500, L500.2500 #### [facility] [address] [place], [address] RDW SD 47.0 fl High 35.1-43.9 [facility] Comment on above: Performed By: #### L 100.0500, L500.2500 #### [facility] [address] [place], [address] WBC (Bld) [#/Vol] 7.8 10*3/uL Normal 4.4-11.0 [facility] Comment on above: Performed By: #### L 100.0500, L500.2500 #### [facility] [address] [place], [address] Calculated very low density lipoprotein (VLDL) cholesterol measurementOrdered By: Balwinder Alves on 12-16-2024 Calculated very low density lipoprotein (VLDL) cholesterol measurement 32 mg/dL 5-40 [facility] VLDL Cholesterol 32 mg/dL 5-40 [facility] Carbon dioxide, total [Moles /volume] in Central venous bloodOrdered By: Balwinder Alves on 12-16-2024 CO2 [Moles/Vol] 26.7 mmol/L 21.0-32.0 [facility] Chloride assayOrdered By: Jen Alves on 12-16-2024 Chloride [Moles/Vol] 98 mmol/L 98-108 [facility] Erythrocyte distribution wid th (RBC) [Ratio]Ordered By: Balwinder Alves on 12-16-2024 Erythrocyte distribution width (RBC) [Entitic vol] 47.0 fL High 35.1-43.9 [facility] Erythrocyte distribution wid th ratioOrdered By: Balwinder Alves on 12-16-2024 Erythrocyte distribution width (RBC) [Ratio] 13.8 % 11.6-14.6 [facility] Erythrocyte distribution wid th standard deviationOrdered By: Balwinder Alves on 12-16-2024 Erythrocyte distribution width (RBC) [Ratio] 47.0 fl High 35.1-43.9 [facility] GFR/1.73 sq M.predicted philipp g non-blacks MDRD (S/P/Bld) [Vol rate/Area]Ordered By: Balwinder Alves on 12-16-2024 Estimated GFR (MDRD) Non-Af Amer 88 >60 [facility] Comment on above: mL/min/1.73m2 CKD-EP I Creatinine Equation (2020) Glomerular filtration rate ( GFR) estimation/1.73 sq m using serum, plasma, or whole bOrdered By: Balwinder Alves on 12-16-2024 GFR/1.73 sq M.predicted among non-blacks MDRD (S/P/Bld) [Vol rate/Area] 88 mL/min/{1.73_m2} >60 [facility] Comment on above: mL/min/1.73m2 CKD-EP I Creatinine Equation (2020) Hematocrit Auto (Bld) [Volum e fraction]Ordered By: Balwinder Alves on 12-16-2024 Hematocrit (Bld) [Volume fraction] 36.2 % Low 37-47 [facility] Hemoglobin A1con 12-16-2024 HbA1c (Bld) [Mass fraction] 8.4 % Normal <=5.6 [facility] Comment on above: Performed By: #### L 100.0500, L500.2500 #### [facility] [address] [place], [place], [id number] Hemoglobin A1c percentageOrd ered By: Balwinder Alves on 12-16-2024 HbA1c (Bld) [Mass fraction] 8.4 % >5.7 [facility] Hemoglobin measurementOrdere d By: Balwinder Alves on 12-16-2024 Hemoglobin (Bld) [Mass/Vol] 11.0 g/dL Low 12.0-15.0 [facility] L506.1001on 12-16-2024 Vitamin D 25-OH 31.6 ng/mL Normal 30-100 [facility] Comment on above: Result Comment: Feli min D Status Deficiency: <20 ng/mL (50nmol/L) Insufficiency: 20-30 ng/mL (50-75 nmol/L) Sufficiency: 30-100 ng/mL (75-250 nmol/L) Toxicity: >100 ng/mL (>250 nmol/L) Performed By: #### L 100.0500, L500.2500 #### [facility] [address] [place], [place], [address] LDL calc ser/plasOrdered By: Balwinder Alves on 12-16-2024 Cholesterol in LDL [Mass/Vol] 22 mg/dL [facility] Comment on above: Erhckqhmvr=148-025 m g/dL & Higher Bwdg=120 mg/dL or greater LDL Cholesterol, Calculated 22 mg/dL [facility] Comment on above: Fzivnxzsci=709-011 m g/dL & Higher Qgig=582 mg/dL or greater Lipid Profileon 12-16-2024 CHOL:HDL 2.22 Normal [facility] Comment on above: Performed By: #### L 100.0500, L500.2500 #### [facility] [address] [place], [address] Cholesterol [Mass/Vol] 98 mg/dL Normal <=200 [facility] Comment on above: Result Comment: Chol esterol level, Desirable <200 mg/dL Borderline high cholesterol 200-239 mg/dL High cholesterol >=240 mg/dL Recommendations of the NCEP Adult Treatment Panel for the following risk-cutoff thresholds for the [place] population. Performed By: #### L 100.0500, L500.2500 #### [facility] [address] [place], [address] Cholesterol in HDL [Mass/Vol] 44 mg/dL Normal [facility] Comment on above: Result Comment: Matilde onal Cholesterol Education Program (NCEP) guidelines: <40 mg/dL: Low HDL-cholesterol (major risk factor for CHD) >= 60 mg/dL: High HDL-cholesterol (negative risk factor for CHD) HDL-cholesterol is affected by a number of factors, e.g. smoking, exercise, hormones, sex and age. Performed By: #### L 100.0500, L500.2500 #### [facility] [address] [place], [address] Cholesterol in LDL [Mass/Vol] 22 mg/dL Normal [facility] Comment on above: Result Comment: Bord bmkqlw=141-735 mg/dL Higher Cfld=982 mg/dL or greater Performed By: #### L 100.0500, L500.2500 #### [facility] [address] [place], [address] Cholesterol in VLDL [Mass/Vol] 32 mg/dL Normal 5-40 [facility] Comment on above: Performed By: #### L 100.0500, L500.2500 #### [facility] [address] [place], [address] Triglyceride [Mass/Vol] 162 mg/dL Normal [facility] Comment on above: Result Comment: The drugs N-Acetylcysteine and Metamizole may falsely depress this assay. Normal range: <150 mg/dL Borderline High: 150-199 mg/dL High: 200-499 mg/dL Very High: >500 mg/dL Performed By: #### L 100.0500, L500.2500 #### [facility] [address] [place], [address] MCV (mean corpuscular volume ) determinationOrdered By: Balwinder Alves on 12-16-2024 MCV (RBC) [Entitic vol] 92.8 fL 81-99 [facility] Mean corpuscular hemoglobin (MCH) determinationOrdered By: Balwinder Alves on 12-16-2024 MCH (RBC) [Entitic mass] 28.2 pg 27.0-32.0 [facility] Mean corpuscular hemoglobin concentration (MCHC) determinationOrdered By: Balwinder Alves on 12-16-2024 MCHC (RBC) [Mass/Vol] 30.4 g/dL Low 32-36 [facility] Mean platelet volume determi nationOrdered By: Balwinder Alves on 12-16-2024 Platelet mean volume (Bld) [Entitic vol] 8.4 fL 6.2-12.0 [facility] Platelet countOrdered By: Jen Alves on 12-16-2024 Platelets (Bld) [#/Vol] 231 10*3/uL 150-450 [facility] Potassium (Unsp spec) [Mass/ Vol]Ordered By: Balwinder Alves on 12-16-2024 Potassium [Moles/Vol] 4.6 mmol/L 3.3-5.1 [facility] Potassium measurement (mass/ volume)Ordered By: Balwinder Alves on 12-16-2024 Potassium (Unsp spec) [Mass/Vol] 4.6 mmol/L 3.3-5.1 [facility] RBC Auto (Bld) [#/Vol]Ordere d By: Balwinder Alves on 12-16-2024 RBC (Bld) [#/Vol] 3.90 10*6/uL Low 4.2-5.4 [facility] Screening total cholesterol/ high density lipoprotein (HDL) cholesterol ratioOrdered By: Balwinder Alves on 12-16-2024 Cholesterol.total/Jany sterol in HDL [Mass ratio] 2.22 {ratio} [facility] Serum creatinine measurement (mass/volume)Ordered By: Balwinder Alves on 12-16-2024 Creatinine [Mass/Vol] 0.67 mg/dL Low 0.70-1.20 [facility] Serum glucose measurement (m ass/volume)Ordered By: Balwinder Alves on 12-16-2024 Glucose [Mass/Vol] 201 mg/dL High 70-99 [facility] Serum or plasma calcium jacqueline urement (mass/volume)Ordered By: Balwinder Alves on 12-16-2024 Calcium [Mass/Vol] 9.5 mg/dL 7.6-11.0 [facility] Serum or plasma cholesterol in HDL measurement (mass/volume)Ordered By: Balwinder Alves on 12-16-2024 Cholesterol in HDL [Mass/Vol] 44 mg/dL >40 [facility] Comment on above: National Cholesterol Education Program (NCEP) guidelines:<40 mg/dL: Low HDL-cholesterol (major risk factor for CHD)>= 60 mg/dL: High HDL-cholesterol (negative risk factor for CHD)HDL-cholesterol is affected by a number of factors, e.g. smoking, exercise, hormones, sex and age. Serum or plasma cholesterol measurement (mass/volume)Ordered By: Balwinder Alves on 12-16-2024 Cholesterol [Mass/Vol] 98 mg/dL <201 [facility] Comment on above: Cholesterol level, D esirable <200 mg/dLBorderline high cholesterol 200-239 mg/dLHigh cholesterol >=240 mg/dLRecommendations of the NCEP Adult Treatment Panel for the following risk-cutoff thresholds for the [place] population. Serum or plasma urea nitroge n measurement (mass/volume)Ordered By: Balwinder Alves on 12-16-2024 Urea nitrogen [Mass/Vol] 8 mg/dL 4-19 [facility] Sodium levelOrdered By: Balwinder Alves on 12-16-2024 Sodium [Moles/Vol] 137 mmol/L 133-145 [facility] Triglycerides measurementOrd ered By: Balwinder Alves on 12-16-2024 Triglyceride [Mass/Vol] 162 mg/dL <199 [facility] Comment on above: The drugs N-Acetylcy steine and Metamizole may falsely depress this assay. Normal range: <150 mg/dLBorderline High: 150-199 mg/dLHigh: 200-499 mg/dLVery High: >500 mg/dL Vitamin D, 25-hydroxyOrdered By: Balwinder Alves on 12-16-2024 Vitamin D 25-Hydroxy 31.6 ng/mL 30-100 [facility] Comment on above: Vitamin D StatusDefi ciency: <20 ng/mL (50nmol/L)Insufficiency: 20-30 ng/mL (50-75 nmol/L)Sufficiency: 30-100 ng/mL (75-250 nmol/L)Toxicity: >100 ng/mL (>250 nmol/L) White blood cell (WBC) count Ordered By: Balwinder Alves on 12-16-2024 WBC (Bld) [#/Vol] 7.8 10*3/uL 4.4-11.0 [facility] Absolute lymphocyte countOrd ered By: Balwinder Alves on 12-14-2024 Lymphocytes Auto (Unsp spec) [#/Vol] 1.93 10*3/uL 0.83-4.51 [facility] Absolute neutrophil countOrd ered By: Balwinder Alves on 12-14-2024 Neutrophils (Bld) [#/Vol] 4.0 10*3/uL 2.0-7.7 [facility] Anion gap in Serum or Plasma Ordered By: Balwinder Alves on 12-14-2024 Anion gap [Moles/Vol] 11 mmol/L 5-15 [facility] Automated lymphocyte count a s percentage of total leukocytesOrdered By: Balwinder Alves on 12-14-2024 Lymphocytes/100 WBC Auto (Unsp spec) 28.7 % - [facility] BUN/creatinine ratioOrdered By: Balwinder Alves on 12-14-2024 Urea nitrogen/Creatinine [Mass ratio] 10.3 mg/mg 07-24 [facility] Basic Metabolic Profile (BMP )on 12-14-2024 BUN/CRE 10.3 RATIO Normal 07-24 [facility] Comment on above: Order Comment: 102.2 Performed By: #### L 100.0500, L500.2500 #### [facility] Laboratory [facility] [place], [address] Calcium [Mass/Vol] 9.2 mg/dL Normal 7.6-11.0 [facility] Comment on above: Order Comment: 102.2 Performed By: #### L 100.0500, L500.2500 #### [facility] [address] [place], [address] Chloride [Moles/Vol] 101 mmol/L Normal 98-108 [facility] Comment on above: Order Comment: 102.2 Performed By: #### L 100.0500, L500.2500 #### [facility] [address] [place], [address] CO2 [Moles/Vol] 27.6 mmol/L Normal 21.0-32.0 [facility] Comment on above: Order Comment: 102.2 Performed By: #### L 100.0500, L500.2500 #### [facility] [address] [place], [address] Creatinine [Mass/Vol] 0.68 mg/dL Low 0.70-1.20 [facility] Comment on above: Order Comment: 102.2 Performed By: #### L 100.0500, L500.2500 #### [facility] [address] [place], [address] GAP 11 Normal 5-15 [facility] Comment on above: Order Comment: 102.2 Performed By: #### L 100.0500, L500.2500 #### [facility] [address] [place], [address] GFR/1.73 sq M.predicted among non-blacks MDRD (S/P/Bld) [Vol rate/Area] 88 mL/min/{1.73_m2} Normal >60 [facility] Comment on above: Order Comment: 102.2 Result Comment: mL/m in/1.73m2 CKD-EPI Creatinine Equation (2020) Performed By: #### L 100.0500, L500.2500 #### [facility] [address] [place], [address] Glucose [Mass/Vol] 177 mg/dL High 70-99 [facility] Comment on above: Order Comment: 102.2 Performed By: #### L 100.0500, L500.2500 #### [facility] [address] [place], [address] Potassium [Moles/Vol] 4.3 mmol/L Normal 3.3-5.1 [facility] Comment on above: Order Comment: 102.2 Performed By: #### L 100.0500, L500.2500 #### [facility] [address] [place], [address] Sodium [Moles/Vol] 139 mmol/L Normal 133-145 [facility] Comment on above: Order Comment: 102.2 Performed By: #### L 100.0500, L500.2500 #### [facility] [address] [place], [address] Urea nitrogen [Mass/Vol] 7 mg/dL Normal 4-19 [facility] Comment on above: Order Comment: 102.2 Performed By: #### L 100.0500, L500.2500 #### [facility] [address] [place], [address] Basophil percentageOrdered B y: Balwinder Alves on 12-14-2024 Basophils/100 WBC (Bld) 0.3 % 0-1 [facility] CBC W/Diff, Automatedon 12-03 Absolute Lymph 1.93 X10 3/uL Normal 0.83-4.51 [facility] Comment on above: Order Comment: 102.2 Performed By: #### M 100.2200, L400.2010 #### [facility] [address] [place], [address] Absolute Neut 4.0 X10 3/uL Normal 2.0-7.7 [facility] Comment on above: Order Comment: 102.2 Performed By: #### M 100.2199, .2010 #### [facility] [address] [place], [address] Basophils/100 WBC (Bld) 0.3 % Normal 0-1 [facility] Comment on above: Order Comment: 102.2 Performed By: #### M 100.2199, .2010 #### [facility] [address] [place], [address] Eosinophils/100 WBC (Bld) 3.1 % Normal 0-5 [facility] Comment on above: Order Comment: 102.2 Performed By: #### M , #### [facility] [address] [place], [address] Erythrocyte distribution width (RBC) [Ratio] 13.6 % Normal 11.6-14.6 [facility] Comment on above: Order Comment: 102.2 Performed By: #### M , #### [facility] [address] [place], [address] Hematocrit (Bld) [Volume fraction] 35.6 % Low 37-47 [facility] Comment on above: Order Comment: 102.2 Performed By: #### M , #### [facility] [address] [place], [address] Hemoglobin (Bld) [Mass/Vol] 10.9 g/dL Low 12.0-15.0 [facility] Comment on above: Order Comment: 102.2 Performed By: #### M 100, #### [facility] [address] [place], [address] IG% 1.000 High 0.0-0.9 [facility] Comment on above: Order Comment: 102.2 Result Comment: IG% - Immature Granulocytes (promyelocytes, myelocytes and metamyelocytes) > 1% indicates that a LEFT SHIFT is Present. Performed By: #### M 100.2199, L4.2010 #### [facility] [address] [place], [address] Lymphocytes/100 WBC (Bld) 28.7 % Normal 19-41 [facility] Comment on above: Order Comment: 102.2 Performed By: #### M , .2010 #### [facility] [address] [place], [address] MCH (RBC) [Entitic mass] 28.2 pg Normal 27.0-32.0 [facility] Comment on above: Order Comment: 102.2 Performed By: #### M , .2010 #### [facility] [address] [place], [address] MCHC (RBC) [Mass/Vol] 30.6 g/dL Low 32-36 [facility] Comment on above: Order Comment: 102.2 Performed By: #### M , L4.2010 #### [facility] [address] [place], [address] MCV (RBC) [Entitic vol] 92.0 fL Normal 81-99 [facility] Comment on above: Order Comment: 102.2 Performed By: #### M , L4 #### [facility] [address] [place], [address] Monocytes/100 WBC (Bld) 6.8 % Normal 0-10 [facility] Comment on above: Order Comment: 102.2 Performed By: #### M , L4 #### [facility] [address] [place], [address] Neutrophils/100 WBC (Bld) 60.1 % Normal 47-70 [facility] Comment on above: Order Comment: 102.2 Performed By: #### M 100.2200, #### [facility] [address] [place], [address] Nucleated RBC (Bld) [#/Vol] 0 10*3/uL Normal 0-5 [facility] Comment on above: Order Comment: 102.2 Performed By: #### M , .2010 #### [facility] [address] [place], [address] Platelet mean volume (Bld) [Entitic vol] 8.5 fL Normal 6.2-12.0 [facility] Comment on above: Order Comment: 102.2 Performed By: #### M , #### [facility] [address] [place], [address] Platelets (Bld) [#/Vol] 213 10*3/uL Normal 150-450 [facility] Comment on above: Order Comment: 102.2 Performed By: #### M , #### [facility] [address] [place], [address] RBC (Bld) [#/Vol] 3.87 10*6/uL Low 4.2-5.4 [facility] Comment on above: Order Comment: 102.2 Performed By: #### M , #### [facility] [address] [place], [address] RDW SD 46.1 fl High 35.1-43.9 [facility] Comment on above: Order Comment: 102.2 Performed By: #### M , #### [facility] [address] [place], [address] WBC (Bld) [#/Vol] 6.7 10*3/uL Normal 4.4-11.0 [facility] Comment on above: Order Comment: 102.2 Performed By: #### M 100.2200, L400.2010 #### [facility] [address] [place], [address] Calculated very low density lipoprotein (VLDL) cholesterol measurementOrdered By: Balwinder Alves on 12-14-2024 Calculated very low density lipoprotein (VLDL) cholesterol measurement 29 mg/dL 5-40 [facility] VLDL Cholesterol 29 mg/dL 5-40 [facility] Carbon dioxide, total [Moles /volume] in Central venous bloodOrdered By: Balwinder Alves on 12-14-2024 CO2 [Moles/Vol] 27.6 mmol/L 21.0-32.0 [facility] Chloride assayOrdered By: Jen Alves on 12-14-2024 Chloride [Moles/Vol] 101 mmol/L 98-108 [facility] Eosinophil percentageOrdered By: Balwinder Alves on 12-14-2024 Eosinophils/100 WBC (Bld) 3.1 % 0-5 [facility] Erythrocyte distribution wid th (RBC) [Ratio]Ordered By: Balwinder Alves on 12-14-2024 Erythrocyte distribution width (RBC) [Entitic vol] 46.1 fL High 35.1-43.9 [facility] Erythrocyte distribution wid th ratioOrdered By: Balwinder Alves on 12-14-2024 Erythrocyte distribution width (RBC) [Ratio] 13.6 % 11.6-14.6 [facility] Erythrocyte distribution wid th standard deviationOrdered By: Balwinder Alves on 12-14-2024 Erythrocyte distribution width (RBC) [Ratio] 46.1 fl High 35.1-43.9 [facility] GFR/1.73 sq M.predicted philipp g non-blacks MDRD (S/P/Bld) [Vol rate/Area]Ordered By: Balwinder Alves on 12-14-2024 Estimated GFR (MDRD) Non-Af Amer 88 >60 [facility] Comment on above: mL/min/1.73m2 CKD-EP I Creatinine Equation (2020) Glomerular filtration rate ( GFR) estimation/1.73 sq m using serum, plasma, or whole bOrdered By: Balwinder Alves on 12-14-2024 GFR/1.73 sq M.predicted among non-blacks MDRD (S/P/Bld) [Vol rate/Area] 88 mL/min/{1.73_m2} >60 [facility] Comment on above: mL/min/1.73m2 CKD-EP I Creatinine Equation (2020) Hematocrit Auto (Bld) [Volum e fraction]Ordered By: Balwinder Alves on 12-14-2024 Hematocrit (Bld) [Volume fraction] 35.6 % Low 37-47 [facility] Hemoglobin A1con 12-14-2024 HbA1c (Bld) [Mass fraction] 8.6 % Normal <=5.6 [facility] Comment on above: Order Comment: 102.2 Performed By: #### L 100.0500, L500.2500 #### [facility] [address] [place], [place], [id number] Hemoglobin A1c percentageOrd ered By: Balwinder Alves on 12-14-2024 HbA1c (Bld) [Mass fraction] 8.6 % >5.7 [facility] Hemoglobin measurementOrdere d By: Balwinder Alves on 12-14-2024 Hemoglobin (Bld) [Mass/Vol] 10.9 g/dL Low 12.0-15.0 [facility] Immature granulocytes/100 WB C Auto (Bld)Ordered By: Balwinder Alves on 12-14-2024 Immature granulocytes/100 WBC (Bld) 1.000 % High 0.0-0.9 [facility] Comment on above: IG% - Immature Granu locytes (promyelocytes, myelocytes and metamyelocytes) > 1% indicates that a LEFT SHIFT is Present. L506.1001on 12-14-2024 Vitamin D 25-OH 31.2 ng/mL Normal 30-100 [facility] Comment on above: Order Comment: 102.2 Result Comment: Feli min D Status Deficiency: <20 ng/mL (50nmol/L) Insufficiency: 20-30 ng/mL (50-75 nmol/L) Sufficiency: 30-100 ng/mL (75-250 nmol/L) Toxicity: >100 ng/mL (>250 nmol/L) Performed By: #### L 100.0500, L500.2500 #### [facility] [address] [place], [place], [id number] LDL calc ser/plasOrdered By: Balwinder Alves on 12-14-2024 Cholesterol in LDL [Mass/Vol] 22 mg/dL [facility] Comment on above: Kqlefexfwj=981-524 m g/dL & Higher Pqsg=525 mg/dL or greater LDL Cholesterol, Calculated 22 mg/dL [facility] Comment on above: Oqxudjelfd=096-413 m g/dL & Higher Tyfl=261 mg/dL or greater Lipid Profileon 12-14-2024 CHOL:HDL 2.29 Normal [facility] Comment on above: Order Comment: 102.2 Performed By: #### L 100.0500, L500.2500 #### [facility] [address] [place], [place], [id number] Cholesterol [Mass/Vol] 91 mg/dL Normal <=200 [facility] Comment on above: Order Comment: 102.2 Result Comment: Chol esterol level, Desirable <200 mg/dL Borderline high cholesterol 200-239 mg/dL High cholesterol >=240 mg/dL Recommendations of the NCEP Adult Treatment Panel for the following risk-cutoff thresholds for the [place] population. Performed By: #### L 100.0500, L500.2500 #### [facility] [address] [place], [place], [id number] Cholesterol in HDL [Mass/Vol] 40 mg/dL Normal [facility] Comment on above: Order Comment: 102.2 Result Comment: Matilde onal Cholesterol Education Program (NCEP) guidelines: <40 mg/dL: Low HDL-cholesterol (major risk factor for CHD) >= 60 mg/dL: High HDL-cholesterol (negative risk factor for CHD) HDL-cholesterol is affected by a number of factors, e.g. smoking, exercise, hormones, sex and age. Performed By: #### L 100.0500, L500.2500 #### [facility] [address] [place], [place], [id number] Cholesterol in LDL [Mass/Vol] 22 mg/dL Normal [facility] Comment on above: Order Comment: 102.2 Result Comment: Bord hxqidw=888-845 mg/dL Higher Flef=363 mg/dL or greater Performed By: #### L 100.0500, L500.2500 #### [facility] [address] [place], [address] Cholesterol in VLDL [Mass/Vol] 29 mg/dL Normal 5-40 [facility] Comment on above: Order Comment: 102.2 Performed By: #### L 100.0500, L500.2500 #### [facility] [address] [place], [address] Triglyceride [Mass/Vol] 146 mg/dL Normal [facility] Comment on above: Order Comment: 102.2 Result Comment: The drugs N-Acetylcysteine and Metamizole may falsely depress this assay. Normal range: <150 mg/dL Borderline High: 150-199 mg/dL High: 200-499 mg/dL Very High: >500 mg/dL Performed By: #### L 100.0500, L500.2500 #### [facility] [address] [place], [address] Lymphocytes Auto (Unsp spec) [#/Vol]Ordered By: Balwinder Alves on 12-14-2024 Lymphocytes (Bld) [#/Vol] 1.93 10*3/uL 0.83-4.51 [facility] Lymphocytes/100 WBC Auto (Un sp spec)Ordered By: Balwinder Alves on 12-14-2024 Lymphocytes/100 WBC (Bld) 28.7 % 19-41 [facility] MCV (mean corpuscular volume ) determinationOrdered By: Balwinder Alves on 12-14-2024 MCV (RBC) [Entitic vol] 92.0 fL 81-99 [facility] Mean corpuscular hemoglobin (MCH) determinationOrdered By: Balwinder Alves on 12-14-2024 MCH (RBC) [Entitic mass] 28.2 pg 27.0-32.0 [facility] Mean corpuscular hemoglobin concentration (MCHC) determinationOrdered By: Balwinder Alves on 12-14-2024 MCHC (RBC) [Mass/Vol] 30.6 g/dL Low 32-36 [facility] Mean platelet volume determi nationOrdered By: Balwinder Alves on 12-14-2024 Platelet mean volume (Bld) [Entitic vol] 8.5 fL 6.2-12.0 [facility] Monocyte percentageOrdered B y: Balwinder Alves on 12-14-2024 Monocytes/100 WBC (Bld) 6.8 % 0-10 [facility] Neutrophil percentageOrdered By: Balwinder Alves on 12-14-2024 Neutrophils/100 WBC (Bld) 60.1 % 47-70 [facility] Nucleated red blood cell per centageOrdered By: Balwinder Alves on 12-14-2024 Nucleated RBC/100 WBC (Bld) [Ratio] 0 % 0-5 [facility] Platelet countOrdered By: Jen Alves on 12-14-2024 Platelets (Bld) [#/Vol] 213 10*3/uL 150-450 [facility] Potassium (Unsp spec) [Mass/ Vol]Ordered By: Balwinder Alves on 12-14-2024 Potassium [Moles/Vol] 4.3 mmol/L 3.3-5.1 [facility] Potassium measurement (mass/ volume)Ordered By: Balwinder Alves on 12-14-2024 Potassium (Unsp spec) [Mass/Vol] 4.3 mmol/L 3.3-5.1 [facility] RBC Auto (Bld) [#/Vol]Ordere d By: Balwinder Alves on 12-14-2024 RBC (Bld) [#/Vol] 3.87 10*6/uL Low 4.2-5.4 [facility] Screening total cholesterol/ high density lipoprotein (HDL) cholesterol ratioOrdered By: Balwinder Alves on 12-14-2024 Cholesterol.total/Jany sterol in HDL [Mass ratio] 2.29 {ratio} [facility] Serum creatinine measurement (mass/volume)Ordered By: Balwinder Alves on 12-14-2024 Creatinine [Mass/Vol] 0.68 mg/dL Low 0.70-1.20 [facility] Serum glucose measurement (m ass/volume)Ordered By: Balwinder Alves on 12-14-2024 Glucose [Mass/Vol] 177 mg/dL High 70-99 [facility] Serum or plasma calcium jacqueline urement (mass/volume)Ordered By: Balwinder Alves on 2025 Calcium [Mass/Vol] 9.2 mg/dL 7.6-11.0 [facility] Serum or plasma cholesterol in HDL measurement (mass/volume)Ordered By: Balwinder Alves on 12-14-2024 Cholesterol in HDL [Mass/Vol] 40 mg/dL >40 [facility] Comment on above: National Cholesterol Education Program (NCEP) guidelines:<40 mg/dL: Low HDL-cholesterol (major risk factor for CHD)>= 60 mg/dL: High HDL-cholesterol (negative risk factor for CHD)HDL-cholesterol is affected by a number of factors, e.g. smoking, exercise, hormones, sex and age. Serum or plasma cholesterol measurement (mass/volume)Ordered By: Balwinder Alves on 12-14-2024 Cholesterol [Mass/Vol] 91 mg/dL <201 [facility] Comment on above: Cholesterol level, D esirable <200 mg/dLBorderline high cholesterol 200-239 mg/dLHigh cholesterol >=240 mg/dLRecommendations of the NCEP Adult Treatment Panel for the following risk-cutoff thresholds for the [place] population. Serum or plasma urea nitroge n measurement (mass/volume)Ordered By: Balwinder Alves on 12-14-2024 Urea nitrogen [Mass/Vol] 7 mg/dL 4-19 [facility] Sodium levelOrdered By: Balwinder Alves on 12-14-2024 Sodium [Moles/Vol] 139 mmol/L 133-145 [facility] Triglycerides measurementOrd ered By: Balwinder Alves on 12-14-2024 Triglyceride [Mass/Vol] 146 mg/dL <199 [facility] Comment on above: The drugs N-Acetylcy steine and Metamizole may falsely depress this assay. Normal range: <150 mg/dLBorderline High: 150-199 mg/dLHigh: 200-499 mg/dLVery High: >500 mg/dL Vitamin D, 25-hydroxyOrdered By: Balwinder Alves on 12-14-2024 Vitamin D 25-Hydroxy 31.2 ng/mL 30-100 [facility] Comment on above: Vitamin D StatusDefi ciency: <20 ng/mL (50nmol/L)Insufficiency: 20-30 ng/mL (50-75 nmol/L)Sufficiency: 30-100 ng/mL (75-250 nmol/L)Toxicity: >100 ng/mL (>250 nmol/L) White blood cell (WBC) count Ordered By: Balwinder Alves on 12-14-2024 WBC (Bld) [#/Vol] 6.7 10*3/uL 4.4-11.0 [facility] Urine Cultureon 10-17-2024 [facility] Copy of report sent to Infection Control Printer [id number] 10/17/24 1000 VSICK. Urine Culture Urine Culture Urine Culture ESBL Escherichia coli [place] Count 80,000-100,000 MARKER ESBL producing OrganismA MARKER ESBL producing OrganismA [place] Count 80,000-100,000 Proteus mirabilis Ampicillin Islt PREM >=32 Ampicillin+Sulbac Islt PREM 16 I Cefepime Islt PREM >=32 cefTRIAXone Islt PREM >=64 R Ciprofloxacin Islt PREM >=4 R B-Lactamase Extended Susc Islt POS Gentamicin Islt PREM <=1 S levoFLOXacin Islt PREM >=8 R Meropenem Islt PREM <=0.25 S Nitrofurantoin Islt PREM 64 I Pip+Tazo Islt PREM <=4 S TMP SMX Islt PREM >=320 R ESBL Escherichia coli: REACTION Amikacin Islt PREM 2 S Doxycycline Islt PREM 2 S Eravacycline Islt PREM <=0.12 Imipenem Islt PREM <=0.25 S Tobramycin Islt PREM <=1 S Minocycline Islt PREM 1 S Proteus mirabilis: REACTION Ampicillin Islt PREM R Ampicillin+Sulbac Islt PREM <=2 S Cefepime Islt PREM 0.5 cefTRIAXone Islt PREM <=0.25 S Ciprofloxacin Islt PREM <=0.06 S Gentamicin Islt PREM <=1 S levoFLOXacin Islt PREM <=0.12 S Meropenem Islt PREM 1 S Nitrofurantoin Islt PREM R Pip+Tazo Islt PREM <=4 S TMP SMX Islt PREM <=20 S Normal [facility] Comment on above: Performed By: #### M 100.2200, L400.2010 #### [facility] [address] [place], [place], [id number] Urinalysis, Routine (Dipstic k)on 10-11-2024 BILIRUBIN URINE Negative Normal Negative [facility] Comment on above: Order Comment: CLEAN CATCH Performed By: #### M , #### [facility] [address] [place], [address] Clarity (U) Sl. Cloudy Normal Clear [facility] Comment on above: Order Comment: CLEAN CATCH Performed By: #### M #### [facility] [address] [place], [address] Color (U) Yellow Normal Yellow [facility] Comment on above: Order Comment: CLEAN CATCH Performed By: #### M #### [facility] [address] [place], [address] GLUCOSE, UR Normal Normal Normal [facility] Comment on above: Order Comment: CLEAN CATCH Performed By: #### M #### [facility] [address] [place], [address] KETONE UR Negative Normal Negative [facility] Comment on above: Order Comment: CLEAN CATCH Performed By: #### M #### [facility] [address] [place], [address] LEUK ESTERASE 500 /ul Abnormal Negative [facility] Comment on above: Order Comment: CLEAN CATCH Performed By: #### M #### [facility] [address] [place], [address] Nitrite Ql (U) Positive Abnormal Negative [facility] Comment on above: Order Comment: CLEAN CATCH Performed By: #### M #### [facility] [address] [place], [address] OCCULT BLOOD-UR 50 /ul Abnormal Negative [facility] Comment on above: Order Comment: CLEAN CATCH Performed By: #### M #### [facility] [address] [place], [address] pH UR 6.5 Normal 5.0 - 8.0 [facility] Comment on above: Order Comment: CLEAN CATCH Performed By: #### M 100.2200, L4.2010 #### [facility] [address] [place], [address] PROT DIPSTX 15 mg/dl Abnormal Negative [facility] Comment on above: Order Comment: CLEAN CATCH Performed By: #### M 100.2200, L400.2010 #### [facility] [address] [place], [address] SP.GR. DIPSTX 1.010 Normal 1.002-1.030 [facility] Comment on above: Order Comment: CLEAN CATCH Performed By: #### M 100.0, L4 #### [facility] [address] [place], [address] UROBILI Normal Normal Normal [facility] Comment on above: Order Comment: CLEAN CATCH Performed By: #### M 100.2199, L4.2010 #### [facility] [address] [place], [address] Bilirubin Test strip Ql (U)O rdered By: Balwinder Alves on 10-10-2024 Bilirubin Ql (U) Negative Negative [facility] Glucose Ql (U)Ordered By: Jen Alves on 10-10-2024 Urine Glucose (UA) Normal mg/dl Normal [facility] Ketones Test strip Ql (U)Ord ered By: Balwinder Alves on 10-10-2024 Ketones Ql (U) Negative Negative [facility] Nitrite Test strip Ql (U)Ord ered By: Balwinder Alves on 10-10-2024 Nitrite Ql (U) Positive High Negative [facility] Protein Test strip Ql (U)Ord ered By: Balwinder Alves on 10-10-2024 Protein Ql (U) 15 mg/dl High Negative [facility] Urine blood detectionOrdered By: Balwinder Alves on 10-10-2024 Urine Occult Blood 50 /ul High Negative [facility] Urine clarityOrdered By: Javed Alves on 10-10-2024 Clarity (U) Sl. Cloudy Clear [facility] Urine color determinationOrd ered By: Balwinder Alves on 10-10-2024 Color (U) Yellow Yellow [facility] Urine cultureOrdered By: Javed Alves on 10-10-2024 Bacteria identified Cx Nom (U) ESBL Escherichia coli Abnormal [facility] Bacteria identified Cx Nom (U) Proteus mirabilis Abnormal [facility] Urine leukocyte esterase det ection by dipstickOrdered By: Balwinder Alves on 10-10-2024 Leukocyte esterase Test strip Ql (U) 500 /ul High Negative [facility] Urine pHOrdered By: Balwinder blackman on 10-10-2024 pH (U) 6.5 [pH] 5.0 - 8.0 [facility] Urine specific gravity measu rementOrdered By: Balwinder Alves on 10-10-2024 Specific gravity (U) [Rel density] 1.010 1.002-1.030 [facility] Urobilinogen Ql (U)Ordered B y: Balwinder Alves on 10-10-2024 Urine Urobilinogen Normal mg/dl Normal [facility] Automated blood erythrocyte countOrdered By: Balwinder Alves on 09-14-2024 RBC (Bld) [#/Vol] 3.90 10*6/uL Low 4.2-5.4 [facility] Comment on above: Order Comment: 102.2 Performed By: #### L 100.0500, L500.2500 #### [facility] [address] [place], [place], [id number] Automated blood hematocrit ( percentage)Ordered By: Balwinder Alves on 09-14-2024 Hematocrit (Bld) [Volume fraction] 37.7 % Normal 37-47 [facility] Comment on above: Order Comment: 102.2 Performed By: #### L 100.0500, L500.2500 #### [facility] [address] [place], [address] Basic Metabolic Profile (BMP )on 12-11-2024 BUN/CRE 15.5 RATIO Normal 10- [facility] Comment on above: Order Comment: 102.2 Performed By: #### L 100.0500, L500.2500 #### [facility] [address] [place], [address] CA,Total 9.4 mg/dL Normal 8.5-10.1 [facility] Comment on above: Order Comment: 102.2 Performed By: #### L 100.0500, L500.2500 #### [facility] [address] [place], [address] EST GFR - AA 102 mL/min Normal >60 [facility] Comment on above: Order Comment: 102.2 Result Comment: Afri can [place] GFR Calc Performed By: #### L 100.0500, L500.2500 #### [facility] [address] [place], [address] GAP 3 Low 5-15 [facility] Comment on above: Order Comment: 102.2 Performed By: #### L 100.0500, L500.2500 #### [facility] [address] [place], [address] GFR/1.73 sq M.predicted among non-blacks MDRD (S/P/Bld) [Vol rate/Area] 84 mL/min/{1.73_m2} Normal >60 [facility] Comment on above: Order Comment: 102.2 Result Comment: Non- GFR Calc Performed By: #### L 100.0500, L500.2500 #### [facility] [address] [place], [address] Blood urea nitrogen (BUN)/cr eatinine ratioOrdered By: Balwinder Alves on 09-14-2024 Urea nitrogen/Creatinine [Mass ratio] 15.5 mg/mg 07-24 [facility] CBC-Complete Blood Cnt No Di ffon 09-14-2024 RDW SD 48.3 fl High 35.1-43.9 [facility] Comment on above: Order Comment: 102.2 Performed By: #### L 100.0500, L500.2500 #### [facility] [address] [place], [address] Carbon dioxide measurementOr dered By: Balwinder Alves on 09-14-2024 CO2 [Moles/Vol] 34.0 mmol/L High 21.0-32.0 [facility] Comment on above: Order Comment: 102.2 Performed By: #### L 100.0500, L500.2500 #### [facility] [address] [place], [address] Chloride measurementOrdered By: Balwinder Alves on 09-14-2024 Chloride [Moles/Vol] 103 mmol/L Normal 98-107 [facility] Comment on above: Order Comment: 102.2 Performed By: #### L 100.0500, L500.2500 #### [facility] [address] [place], [address] Erythrocyte distribution wid th (RBC) [Ratio]Ordered By: Balwinder Alves on 09-14-2024 Erythrocyte distribution width (RBC) [Entitic vol] 48.3 fL High 35.1-43.9 [facility] Erythrocyte distribution wid th ratioOrdered By: Balwinder Alves on 09-14-2024 Erythrocyte distribution width (RBC) [Ratio] 14.0 % Normal 11.6-14.6 [facility] Comment on above: Order Comment: 102.2 Performed By: #### L 100.0500, L500.2500 #### [facility] [address] [place], [address] Estimated glomerular filtrat ion rate (GFR) AmericanOrdered By: Balwinder Alves on 09-14-2024 Estimated GFR (MDRD) Amer 102 mL/min >60 [facility] Comment on above: GFR Calc Glomerular filtration rate ( GFR) estimationOrdered By: Balwinder Alves on 09-14-2024 Estimated GFR (MDRD) Non-Af Amer 84 mL/min >60 [facility] Comment on above: Non- GFR Calc Glucose measurementOrdered B y: Balwinder Alves on 09-14-2024 Glucose [Mass/Vol] 168 mg/dL High 74-106 [facility] Comment on above: Fasting Glucose resu lt greater than or equal to 126 mg/dL suggests DIABETES MELLITUS per A.D.A. criteria. Order Comment: 102.2 Result Comment: Fast ing Glucose result greater than or equal to 126 mg/dL suggests DIABETES MELLITUS per A.D.A. criteria. Performed By: #### L 100.0500, L500.2500 #### [facility] [facility] [address] [place], [address] Hemoglobin measurementOrdere d By: Balwinder Alves on 09-14-2024 Hemoglobin (Bld) [Mass/Vol] 11.1 g/dL Low 12.0-15.0 [facility] Comment on above: Order Comment: 102.2 Performed By: #### L 100.0500, L500.2500 #### [facility] [address] [place], [address] MCV (mean corpuscular volume ) determinationOrdered By: Balwinder Alves on 09-14-2024 MCV (RBC) [Entitic vol] 96.7 fL Normal 81-99 [facility] Comment on above: Order Comment: 102.2 Performed By: #### L 100.0500, L500.2500 #### [facility] [address] [place], [address] Mean corpuscular hemoglobin (MCH) determinationOrdered By: Balwinder Alves on 09-14-2024 MCH (RBC) [Entitic mass] 28.5 pg Normal 27.0-32.0 [facility] Comment on above: Order Comment: 102.2 Performed By: #### L 100.0500, L500.2500 #### [facility] [address] [place], [address] Mean corpuscular hemoglobin concentration (MCHC) determinationOrdered By: Balwinder Alves on 09-14-2024 MCHC (RBC) [Mass/Vol] 29.4 g/dL Low 32-36 [facility] Comment on above: Order Comment: 102.2 Performed By: #### L 100.0500, L500.2500 #### [facility] [address] [place], [address] Mean platelet volume determi nationOrdered By: Balwinder Alves on 09-14-2024 Platelet mean volume (Bld) [Entitic vol] 8.2 fL Normal 6.2-12.0 [facility] Comment on above: Order Comment: 102.2 Performed By: #### L 100.0500, L500.2500 #### [facility] [address] [place], [address] Platelet countOrdered By: Jen Alves on 09-14-2024 Platelets (Bld) [#/Vol] 178 10*3/uL Normal 150-450 [facility] Comment on above: Order Comment: 102.2 Performed By: #### L 100.0500, L500.2500 #### [facility] [address] [place], [address] Potassium measurementOrdered By: Balwinder Alves on 09-14-2024 Potassium [Moles/Vol] 4.6 mmol/L Normal 3.5-5.1 [facility] Comment on above: Order Comment: 102.2 Performed By: #### L 100.0500, L500.2500 #### [facility] [address] [place], [address] Serum anion gap measurementO rdered By: Balwinder Alves on 09-14-2024 Anion gap [Moles/Vol] 3 mmol/L Low 5-15 [facility] Serum or plasma calcium jacqueline urement (mass/volume)Ordered By: Balwinder Alves on 09-14-2024 Calcium [Mass/Vol] 9.4 mg/dL 8.5-10.1 [facility] Serum or plasma creatinine m easurement (mass/volume)Ordered By: Balwinder Alves on 09-14-2024 Creatinine [Mass/Vol] 0.71 mg/dL Normal 0.55-1.02 [facility] Comment on above: The validity of the calculated GFR & GFRAA in patients over 70 years has not been determined. Clinical correlation is essential. Order Comment: 102.2 Result Comment: The validity of the calculated GFR GFRAA in patients over 70 years has not been determined. Clinical correlation is essential. Performed By: #### L 100.0500, L500.2500 #### [facility] [address] [place], [address] Serum or plasma urea nitroge n measurement (mass/volume)Ordered By: Balwinder Alves on 09-14-2024 Urea nitrogen [Mass/Vol] 11 mg/dL Normal 7-18 [facility] Comment on above: Order Comment: 102.2 Performed By: #### L 100.0500, L500.2500 #### [facility] [address] [place], [address] Sodium levelOrdered By: Balwinder Alves on 09-14-2024 Sodium [Moles/Vol] 139 mmol/L Normal 136-145 [facility] Comment on above: Order Comment: 102.2 Performed By: #### L 100.0500, L500.2500 #### [facility] [address] [place], [address] White blood cell (WBC) count Ordered By: Balwinder Alves on 09-14-2024 WBC (Bld) [#/Vol] 5.6 10*3/uL Normal 4.4-11.0 [facility] Comment on above: Order Comment: 102.2 Performed By: #### L 100.0500, L500.2500 #### [facility] [address] [place], [address] Basic Metabolic Profile (BMP )on 06-14-2024 BUN/CRE 13.6 RATIO Normal 10-20 [facility] Comment on above: Order Comment: 102.2 Performed By: #### M 100.2200, L400.2010 #### [facility] [address] [place], [address] CA,Total 9.5 mg/dL Normal 8.5-10.1 [facility] Comment on above: Order Comment: 102.2 Performed By: #### M 100.2199, .2010 #### [facility] [address] [place], [address] Chloride [Moles/Vol] 101 mmol/L Normal 98-107 [facility] Comment on above: Order Comment: 102.2 Performed By: #### M .2199, .2010 #### [facility] [address] [place], [address] CO2 [Moles/Vol] 30.0 mmol/L Normal 21.0-32.0 [facility] Comment on above: Order Comment: 102.2 Performed By: #### M , #### [facility] [address] [place], [address] Creatinine [Mass/Vol] 0.74 mg/dL Normal 0.55-1.02 [facility] Comment on above: Order Comment: 102.2 Result Comment: The validity of the calculated GFR GFRAA in patients over 70 years has not been determined. Clinical correlation is essential. Performed By: #### M .2199, #### [facility] [address] [place], [address] EST GFR - AA 98 mL/min Normal >60 [facility] Comment on above: Order Comment: 102.2 Result Comment: Afri can [place] GFR Calc Performed By: #### M 100.2199, #### [facility] [address] [place], [address] GAP 6 Normal 5-15 [facility] Comment on above: Order Comment: 102.2 Performed By: #### M 100.2200, #### [facility] [address] [place], [address] GFR/1.73 sq M.predicted among non-blacks MDRD (S/P/Bld) [Vol rate/Area] 81 mL/min/{1.73_m2} Normal >60 [facility] Comment on above: Order Comment: 102.2 Result Comment: Non- GFR Calc Performed By: #### M .2199, #### [facility] [address] [place], [address] Glucose [Mass/Vol] 157 mg/dL High 74-106 [facility] Comment on above: Order Comment: 102.2 Result Comment: Fast ing Glucose result greater than or equal to 126 mg/dL suggests DIABETES MELLITUS per A.D.A. criteria. Performed By: #### M , #### [facility] [address] [place], [address] Potassium [Moles/Vol] 4.1 mmol/L Normal 3.5-5.1 [facility] Comment on above: Order Comment: 102.2 Performed By: #### M , #### [facility] [address] [place], [address] Sodium [Moles/Vol] 137 mmol/L Normal 136-145 [facility] Comment on above: Order Comment: 102.2 Performed By: #### M , #### [facility] [address] [place], [address] Urea nitrogen [Mass/Vol] 10 mg/dL Normal 7-18 [facility] Comment on above: Order Comment: 102.2 Performed By: #### M , #### [facility] [address] [place], [address] CBC-Complete Blood Cnt No Di ffon 06-14-2024 Erythrocyte distribution width (RBC) [Ratio] 14.5 % Normal 11.6-14.6 [facility] Comment on above: Order Comment: 102.2 Performed By: #### M , .2010 #### [facility] [address] [place], [address] Hematocrit (Bld) [Volume fraction] 36.9 % Low 37-47 [facility] Comment on above: Order Comment: 102.2 Performed By: #### M , .2010 #### [facility] [address] [place], [address] Hemoglobin (Bld) [Mass/Vol] 11.1 g/dL Low 12.0-15.0 [facility] Comment on above: Order Comment: 102.2 Performed By: #### M , #### [facility] [address] [place], [address] MCH (RBC) [Entitic mass] 28.6 pg Normal 27.0-32.0 [facility] Comment on above: Order Comment: 102.2 Performed By: #### M , #### [facility] [address] [place], [address] MCHC (RBC) [Mass/Vol] 30.1 g/dL Low 32-36 [facility] Comment on above: Order Comment: 102.2 Performed By: #### M , #### [facility] [address] [place], [address] MCV (RBC) [Entitic vol] 95.1 fL Normal 81-99 [facility] Comment on above: Order Comment: 102.2 Performed By: #### M , #### [facility] [address] [place], [address] Platelet mean volume (Bld) [Entitic vol] 8.7 fL Normal 6.2-12.0 [facility] Comment on above: Order Comment: 102.2 Performed By: #### M , #### [facility] [address] [place], [address] Platelets (Bld) [#/Vol] 165 10*3/uL Normal 150-450 [facility] Comment on above: Order Comment: 102.2 Performed By: #### M , #### [facility] [address] [place], [address] RBC (Bld) [#/Vol] 3.88 10*6/uL Low 4.2-5.4 [facility] Comment on above: Order Comment: 102.2 Performed By: #### M , #### [facility] [address] [place], [address] RDW SD 50.7 fl High 35.1-43.9 [facility] Comment on above: Order Comment: 102.2 Performed By: #### M , #### [facility] [address] [place], [address] WBC (Bld) [#/Vol] 5.4 10*3/uL Normal 4.4-11.0 [facility] Comment on above: Order Comment: 102.2 Performed By: #### M , #### [facility] [address] [place], [address] Hemoglobin A1con 06-14-2024 HbA1c (Bld) [Mass fraction] 6.7 % High 3.8-5.6 [facility] Comment on above: Order Comment: 102.2 Result Comment: Norm al < 5.7 % Prediabetic 5.7 - 6.4 % Diabetic >or= 6.5 % Please note range changes. Performed By: #### M , L4 #### [facility] [address] [place], [address] Lipid Profileon 06-14-2024 Cholesterol [Mass/Vol] 134 mg/dL Normal 200 [facility] Comment on above: Order Comment: 102.2 Result Comment: <200 mg/dL Desirable 200-240 mg/dL Borderline >240 mg/dL High Risk Performed By: #### M 100.2199, #### [facility] [address] [place], [address] Cholesterol in HDL [Mass/Vol] 66 mg/dL Normal [facility] Comment on above: Order Comment: 102.2 Result Comment: The drugs N-Acetylcysteine and Metamizole may falsely depress this assay. Reference Range HDL <40 mg/dL Low HDL Cholesterol HDL >or= 60 mg/dL High HDL Cholesterol Performed By: #### M , #### [facility] [address] [place], [address] Cholesterol in LDL [Mass/Vol] 43 mg/dL Normal 0-130 [facility] Comment on above: Order Comment: 102.2 Performed By: #### M , #### [facility] [address] [place], [address] Cholesterol in VLDL [Mass/Vol] 25 mg/dL Normal 5-40 [facility] Comment on above: Order Comment: 102.2 Performed By: #### M , #### [facility] [address] [place], [address] Triglyceride [Mass/Vol] 125 mg/dL Normal [facility] Comment on above: Order Comment: 102.2 Result Comment: The drugs N-Acetylcysteine and Metamizole may falsely depress this assay. Serum Triglycerides Reference Interval Normal <150 mg/dL Borderline high 150 - 199 mg/dL High 200 - 499 mg/dL Very High > or = 500 mg/dL Performed By: #### M , #### [facility] [address] [place], [place], [address] Vitamin D,25 Hydroxyon 06-14 Vitamin D 25-OH 38.8 ng/mL Normal [facility] Comment on above: Order Comment: 102.2 Result Comment: Feli min D 25(OH) Status Range Deficiency <20 ng/mL (50nmol/L) Insufficiency 20 - 30 ng/mL (50 - 75 nmol/L) Sufficiency 30 - 100 ng/mL (75 - 250 nmol/L) Toxicity >100 ng/mL (>250 nmol/L) Performed By: #### M 100.2200, L400.2010 #### [facility] [address] [place], [place], [address] Urine Cultureon 06-01-2024 [facility] RESULTS CALLED TO Castro GARCIA 05/31/24 Jolynn Patterson. REPORT READ BACK BY . ESBL Escherichia coli [place] Count >100,000 MARKER A ESBL producing Organism A ESBL Escherichia coli: REACTION Amikacin Islt PREM <=2 S Ampicillin Islt PREM >=32 R Ampicillin+Sulbac Islt PREM >=32 R ceFAZolin Islt PREM >=64 R Cefepime Islt PREM >=32 R cefoTEtan Islt PREM <=4 S cefTRIAXone Islt PREM >=64 R Ciprofloxacin Islt PREM >=4 R Ertapenem Islt PREM <=0.12 S B-Lactamase Extended Susc Islt POS Gentamicin Islt PREM <=1 S Imipenem Islt PERM <=0.25 S levoFLOXacin Islt PREM >=8 R Meropenem Islt PREM <=0.25 S Nitrofurantoin Islt PREM <=16 S Pip+Tazo Islt PREM <=4 S Tetracycline Islt PREM <=1 S Tobramycin Islt PREM <=1 S TMP SMX Islt PREM >=320 R Cefuroxime Islt PREM >=64 R Normal [facility] Comment on above: Performed By: #### L 100.0500, L500.2499 #### [facility] [address] [place], [place], [id number] Urine Cultureon 05-09-2024 [facility] RESULTS CALLED TO Lesli WALLACE 05/09/24 1156 Lorrie Patterson. REPORT READ BACK BY . Bacteria Ur Cult Copy of report sent to Infection Control Printer [id number] 05/09/24 [id number] ESSENCE. ESBL Escherichia coli [place] Count >100,000 MARKER A ESBL producing Organism A ESBL Escherichia coli: REACTION Amikacin Islt PREM <=2 S cefoTEtan Islt PREM <=4 S Meropenem Islt PREM <=0.25 S Tetracycline Islt PREM <=1 S Cefuroxime Islt PREM >=64 R ESBL Escherichia coli: REACTION Ampicillin Islt PREM >=32 R Ampicillin+Sulbac Islt PREM >=32 R ceFAZolin Islt PREM >=64 R Cefepime Islt PREM >=32 R cefTRIAXone Islt PREM >=64 R Ciprofloxacin Islt PREM >=4 R Ertapenem Islt PREM <=0.12 S B-Lactamase Extended Susc Islt POS Gentamicin Islt PREM <=1 S Imipenem Islt PREM <=0.25 S levoFLOXacin Islt PREM >=8 R Nitrofurantoin Islt PREM 32 S Pip+Tazo Islt PREM <=4 S Tobramycin Islt PREM <=1 S TMP SMX Islt PREM >=320 R Normal [facility] Comment on above: Performed By: #### M 100.2199, L4 #### [facility] [address] [place], [place], [address] Urinalysis, Routine (Dipstic k)on 05-06-2024 BILIRUBIN URINE Negative Normal Negative [facility] Comment on above: Order Comment: Urine , Random Performed By: #### M 100.0, L400 #### [facility] [address] [place], [place], [address] Clarity (U) Cloudy Normal Clear [facility] Comment on above: Order Comment: Urine , Random Performed By: #### M 100.2200, L400 #### [facility] [address] [place], [place], [address] Color (U) Yellow Normal Yellow [facility] Comment on above: Order Comment: Urine , Random Performed By: #### M .2199, L4.2010 #### [facility] [address] [place], [address] GLUCOSE, UR Normal Normal Normal [facility] Comment on above: Order Comment: Urine , Random Performed By: #### M , L4 #### [facility] [address] [place], [address] KETONE UR 5 mg/dl Abnormal Negative [facility] Comment on above: Order Comment: Urine , Random Performed By: #### M , L4 #### [facility] [address] [place], [address] LEUK ESTERASE 500 /ul Abnormal Negative [facility] Comment on above: Order Comment: Urine , Random Performed By: #### M , L4 #### [facility] [address] [place], [address] Nitrite Ql (U) Positive Abnormal Negative [facility] Comment on above: Order Comment: Urine , Random Performed By: #### M , L4 #### [facility] [address] [place], [address] OCCULT BLOOD-UR 250 /ul Abnormal Negative [facility] Comment on above: Order Comment: Urine , Random Performed By: #### M , L4 #### [facility] [address] [place], [address] pH UR 6.0 Normal 5.0 - 8.0 [facility] Comment on above: Order Comment: Urine , Random Performed By: #### M , L4 #### [facility] [address] [place], [address] PROT DIPSTX 30 mg/dl Abnormal Negative [facility] Comment on above: Order Comment: Urine , Random Performed By: #### M 100.2200, L4.2010 #### [facility] [address] [place], [address] SP.GR. DIPSTX 1.015 Normal 1.002-1.030 [facility] Comment on above: Order Comment: Urine , Random Performed By: #### M 100.2200, L4.2010 #### [facility] [address] [place], [address] UROBILI Normal Normal Normal [facility] Comment on above: Order Comment: Urine , Random Performed By: #### M 100.0, L4 #### [facility] [address] [place], [address] Urine Cultureon 03-28-2024 [facility] ESBL Escherichia col i [place] Count >100,000 MARKER A ESBL producing Organism A ESBL Escherichia coli: REACTION Amikacin Islt PREM <=2 S Ampicillin Islt PREM >=32 R Ampicillin+Sulbac Islt PREM >=32 R ceFAZolin Islt PREM >=64 R Cefepime Islt PREM >=32 R cefoTEtan Islt PREM <=4 S cefTRIAXone Islt PREM >=64 R Ciprofloxacin Islt PREM >=4 R Ertapenem Islt PREM <=0.12 S B-Lactamase Extended Susc Islt POS Gentamicin Islt PREM <=1 S Imipenem Islt PREM <=0.25 S levoFLOXacin Islt PREM >=8 R Meropenem Islt PREM <=0.25 S Nitrofurantoin Islt PREM 32 S Pip+Tazo Islt PREM <=4 S Tetracycline Islt PREM <=1 S Tobramycin Islt PREM <=1 S TMP SMX Islt PREM >=320 R Cefuroxime Islt PREM >=64 R Normal [facility] Comment on above: Performed By: #### M 100.2200, L4 #### [facility] [address] [place], [address] Urinalysis, Routine (Dipstic k)on 03-25-2024 BILIRUBIN URINE Negative Normal Negative [facility] Comment on above: Order Comment: CLEAN CATCH Performed By: #### M , #### [facility] [address] [place], [address] Clarity (U) Sl. Cloudy Normal Clear [facility] Comment on above: Order Comment: CLEAN CATCH Performed By: #### M , #### [facility] [address] [place], [address] Color (U) Yellow Normal Yellow [facility] Comment on above: Order Comment: CLEAN CATCH Performed By: #### M , #### [facility] [address] [place], [address] GLUCOSE, UR Normal Normal Normal [facility] Comment on above: Order Comment: CLEAN CATCH Performed By: #### M #### [facility] [address] [place], [address] KETONE UR Negative Normal Negative [facility] Comment on above: Order Comment: CLEAN CATCH Performed By: #### M #### [facility] [address] [place], [address] LEUK ESTERASE 500 /ul Abnormal Negative [facility] Comment on above: Order Comment: CLEAN CATCH Performed By: #### M , L4 #### [facility] [address] [place], [address] Nitrite Ql (U) Positive Abnormal Negative [facility] Comment on above: Order Comment: CLEAN CATCH Performed By: #### M , L4 #### [facility] [address] [place], [address] OCCULT BLOOD-UR 250 /ul Abnormal Negative [facility] Comment on above: Order Comment: CLEAN CATCH Performed By: #### M 100.0, L4.2010 #### [facility] [address] [place], [address] pH UR 6.0 Normal 5.0 - 8.0 [facility] Comment on above: Order Comment: CLEAN CATCH Performed By: #### M 100.2199, L4.2010 #### [facility] [address] [place], [address] PROT DIPSTX 15 mg/dl Abnormal Negative [facility] Comment on above: Order Comment: CLEAN CATCH Performed By: #### M 100.2199, L4.2010 #### [facility] [address] [place], [address] SP.GR. DIPSTX 1.010 Normal 1.002-1.030 [facility] Comment on above: Order Comment: CLEAN CATCH Performed By: #### M , L4 #### [facility] [address] [place], [address] UROBILI Normal Normal Normal [facility] Comment on above: Order Comment: CLEAN CATCH Performed By: #### M , L4 #### [facility] [address] [place], [address] Basic Metabolic Profile (BMP )on 03-14-2024 BUN/CRE 18.1 RATIO Normal 10-20 [facility] Comment on above: Order Comment: 102.2 Performed By: #### L 100.0500, L500.2500 #### [facility] [address] [place], [address] CA,Total 9.1 mg/dL Normal 8.5-10.1 [facility] Comment on above: Order Comment: 102.2 Performed By: #### L 100.0500, L500.2500 #### [facility] [address] [place], [address] Chloride [Moles/Vol] 102 mmol/L Normal 98-107 [facility] Comment on above: Order Comment: 102.2 Performed By: #### L 100.0500, L500.2500 #### [facility] [address] [place], [address] CO2 [Moles/Vol] 31.0 mmol/L Normal 21.0-32.0 [facility] Comment on above: Order Comment: 102.2 Performed By: #### L 100.0500, L500.2500 #### [facility] [address] [place], [address] Creatinine [Mass/Vol] 0.50 mg/dL Low 0.55-1.02 [facility] Comment on above: Order Comment: 102.2 Result Comment: The validity of the calculated GFR GFRAA in patients over 70 years has not been determined. Clinical correlation is essential. Performed By: #### L 100.0500, L500.2500 #### [facility] [address] [place], [address] EST GFR - AA 154 mL/min Normal >60 [facility] Comment on above: Order Comment: 102.2 Result Comment: Afri can [place] GFR Calc Performed By: #### L 100.0500, L500.2500 #### [facility] [address] [place], [address] GAP 3 Low 5-15 [facility] Comment on above: Order Comment: 102.2 Performed By: #### L 100.0500, L500.2500 #### [facility] [facility] [address] [place], [address] GFR/1.73 sq M.predicted among non-blacks MDRD (S/P/Bld) [Vol rate/Area] 127 mL/min/{1.73_m2} Normal >60 [facility] Comment on above: Order Comment: 102.2 Result Comment: Non- GFR Calc Performed By: #### L 100.0500, L500.2500 #### [facility] [address] [place], [address] Glucose [Mass/Vol] 151 mg/dL High 74-106 [facility] Comment on above: Order Comment: 102.2 Result Comment: Fast ing Glucose result greater than or equal to 126 mg/dL suggests DIABETES MELLITUS per A.D.A. criteria. Performed By: #### L 100.0500, L500.2500 #### [facility] [address] [place], [address] Potassium [Moles/Vol] 4.5 mmol/L Normal 3.5-5.1 [facility] Comment on above: Order Comment: 102.2 Performed By: #### L 100.0500, L500.2500 #### [facility] [address] [place], [address] Sodium [Moles/Vol] 136 mmol/L Normal 136-145 [facility] Comment on above: Order Comment: 102.2 Performed By: #### L 100.0500, L500.2500 #### [facility] [address] [place], [address] Urea nitrogen [Mass/Vol] 9 mg/dL Normal 7-18 [facility] Comment on above: Order Comment: 102.2 Performed By: #### L 100.0500, L500.2500 #### [facility] [address] [place], [address] CBC-Complete Blood Cnt No Di ffon 03-14-2024 Erythrocyte distribution width (RBC) [Ratio] 14.0 % Normal 11.6-14.6 [facility] Comment on above: Performed By: #### L 100.0500, L500.2500 #### [facility] [address] [place], [address] Hematocrit (Bld) [Volume fraction] 40.3 % Normal 37-47 [facility] Comment on above: Performed By: #### L 100.0500, L500.2500 #### [facility] [address] [place], [address] Hemoglobin (Bld) [Mass/Vol] 12.1 g/dL Normal 12.0-15.0 [facility] Comment on above: Performed By: #### L 100.0500, L500.2500 #### [facility] [address] [place], [address] MCH (RBC) [Entitic mass] 28.7 pg Normal 27.0-32.0 [facility] Comment on above: Performed By: #### L 100.0500, L500.2500 #### [facility] [address] [place], [address] MCHC (RBC) [Mass/Vol] 30.0 g/dL Low 32-36 [facility] Comment on above: Performed By: #### L 100.0500, L500.2500 #### [facility] [address] [place], [address] MCV (RBC) [Entitic vol] 95.5 fL Normal 81-99 [facility] Comment on above: Performed By: #### L 100.0500, L500.2500 #### [facility] [address] [place], [address] Platelet mean volume (Bld) [Entitic vol] 8.5 fL Normal 6.2-12.0 [facility] Comment on above: Performed By: #### L 100.0500, L500.2500 #### [facility] [address] [place], [address] Platelets (Bld) [#/Vol] 158 10*3/uL Normal 150-450 [facility] Comment on above: Performed By: #### L 100.0500, L500.2500 #### [facility] [address] [place], [address] RBC (Bld) [#/Vol] 4.22 10*6/uL Normal 4.2-5.4 [facility] Comment on above: Performed By: #### L 100.0500, L500.2500 #### [facility] [address] [place], [address] RDW SD 48.5 fl High 35.1-43.9 [facility] Comment on above: Performed By: #### L 100.0500, L500.2500 #### [facility] [address] [place], [address] WBC (Bld) [#/Vol] 7.1 10*3/uL Normal 4.4-11.0 [facility] Comment on above: Performed By: #### L 100.0500, L500.2500 #### [facility] [address] [place], [address] Basophil percentageOrdered B y: Balwinder Alves on 12-14-2023 Chloride [Moles/Vol] 105 mmol/L 98-107 [facility] Cholesterol [Mass/Vol] 128 mg/dL <200 [facility] Comment on above: <200 mg/dL Desirable 200-240 mg/dL Borderline >240 mg/dL High Risk Glucose [Mass/Vol] 132 mg/dL 74-106 [facility] Comment on above: Fasting Glucose resu lt greater than or equal to 126 mg/dL suggests DIABETES MELLITUS per A.D.A. criteria. Hemoglobin (Bld) [Mass/Vol] 12.5 g/dL 12.0-15.0 [facility] Potassium [Moles/Vol] 4.4 mmol/L 3.5-5.1 [facility] Sodium [Moles/Vol] 142 mmol/L 136-145 [facility] Triglyceride [Mass/Vol] 178 mg/dL <199 [facility] Comment on above: The drugs N-Acetylcy steine and Metamizole may falsely depress this assay.Serum Triglycerides Reference Interval Normal <150 mg/dL Borderline high 150 - 199 mg/dL High 200 - 499 mg/dL Very High > or = 500 mg/dL WBC (Bld) [#/Vol] 4.9 10*3/uL 4.4-11.0 [facility] Determination of erythrocyte mean corpuscular volume (MCV)Ordered By: Balwinder Alves on 12-14-2023 MCV (RBC) [Entitic vol] 92.6 fL 81-99 [facility] Erythrocyte distribution wid th ratioOrdered By: Balwinder Alves on 12-14-2023 Erythrocyte distribution width (RBC) [Ratio] 15.4 % 11.6-14.6 [facility] Erythrocyte distribution wid th standard deviationOrdered By: Balwinder Alves on 12-14-2023 Erythrocyte distribution width (RBC) [Entitic vol] 52.9 fL 35.1-43.9 [facility] Hematocrit Auto (Bld) [Volum e fraction]Ordered By: Balwinder Alves on 12-14-2023 Hematocrit (Bld) [Volume fraction] 41.1 % 37-47 [facility] Laboratory - Chemistry and C hemistry - challengeOrdered By: Balwinder Alves on 12-14-2023 Cholesterol in HDL [Mass/Vol] 49 mg/dL >40 [facility] Comment on above: The drugs N-Acetylcy steine and Metamizole may falsely depress this assay. Reference Range HDL <40 mg/dL Low HDL Cholesterol HDL >or= 60 mg/dL High HDL Cholesterol Cholesterol in LDL [Mass/Vol] 43 mg/dL 0-130 [facility] CO2 [Moles/Vol] 32.0 mmol/L 21.0-32.0 [facility] Urea nitrogen/Creatinine [Mass ratio] 12.2 mg/mg 10-20 [facility] Laboratory - Hematology and Cell countsOrdered By: Balwinder Alves on 12-14-2023 MCH (RBC) [Entitic mass] 28.2 pg 27.0-32.0 [facility] MCHC (RBC) [Mass/Vol] 30.4 g/dL 32-36 [facility] Platelet mean volume (Bld) [Entitic vol] 8.5 fL 6.2-12.0 [facility] Platelets (Bld) [#/Vol] 174 10*3/uL 150-450 [facility] No Panel InformationOrdered By: Balwinder Alves on 12-14-2023 Estimated GFR (MDRD) Amer 130 mL/min >60 [facility] Comment on above: GFR Calc Estimated GFR (MDRD) Non-Af Amer 107 mL/min >60 [facility] Comment on above: Non- GFR Calc Vitamin D 25-Hydroxy 42.9 ng/mL [facility] Comment on above: Vitamin D 25(OH) Sta tus Range Deficiency <20 ng/mL (50nmol/L) Insufficiency 20 - 30 ng/mL (50 - 75 nmol/L) Sufficiency 30 - 100 ng/mL (75 - 250 nmol/L) Toxicity >100 ng/mL (>250 nmol/L) VLDL Cholesterol 36 mg/dL 5-40 [facility] RBC Auto (Bld) [#/Vol]Ordere d By: Balwinder Alves on 12-14-2023 RBC (Bld) [#/Vol] 4.44 10*6/uL 4.2-5.4 [facility] Serum or plasma calcium jacqueline urement (mass/volume)Ordered By: Balwinder Alves on 12-14-2023 Calcium [Mass/Vol] 8.9 mg/dL 8.5-10.1 [facility] Serum or plasma creatinine m easurement (mass/volume)Ordered By: Balwinder Alves on 12-14-2023 Creatinine [Mass/Vol] 0.58 mg/dL 0.55-1.02 [facility] Comment on above: The validity of the calculated GFR & GFRAA in patients over 70 years has not been determined. Clinical correlation is essential. Serum or plasma urea nitroge n measurement (mass/volume)Ordered By: Balwinder Alves on 12-14-2023 Urea nitrogen [Mass/Vol] 7 mg/dL 7-18 [facility] Thin prep Papanicolaou smear with manual screeningOrdered By: Balwinder Alves on 12-14-2023 Thin prep Papanicolaou smear with manual screening 5 5-15 [facility] Whole blood hemoglobin A1c/t otal hemoglobin ratio (mass fraction)Ordered By: Balwinder Alves on 12-14-2023 HbA1c (Bld) [Mass fraction] 6.2 % 3.8-5.6 [facility] Comment on above: Normal < 5.7 % Predi abetic 5.7 - 6.4 % Diabetic >or= 6.5 % Please note range changes. Office Visiton 12-09-2023 Follow-up visit [id number] Joy Bustamante 1945 F Date Provider Department Center 12/09/2023 [id number], MIA [facility] None No family history on file Level of Service:68142 CT OFFICE/OUTPATIENT ESTABLISHED LOW MDM 20 MIN Reason for Visit and Comments: Follow-up [644781] - L fibula fx Normal [facility] Progress Noteon 12-09-2023 Progress Note [facility] [address] [place] [address] [address] [facility] [address] Dept: [phone] Dept Gumaro Bustamante 1945 [id number] 12/09/2023 HISTORY OF PRESENT ILLNESS: Gumaro returns for re-evaluation of her left lateral malleolus fracture. Gumaro reports that her pain has decreased since the last visit Gumaro reports that her swelling has decreased since the last visit Gumaro denies calf pain and shortness of breath Gumaro has been weight bearing as tolerated on the left lower extremity in in an Aircast boot which she has been taking off for sleep and ROM. In general Gumaro feels that she is doing better than [...] bleeding from cuts or after surgery: NO General/Constitutional : General: no Cancer: NO Acute/Chronic Infections: NO [...] reaction(s): Hives, Shortness of breath Aspirin Unknown Oxycodone-Acetaminophe n Trimethoprim Other reaction(s): Shortness of breath Diphenhydramine-Acetam inophen Ibuprofen PHYSICAL EXAM: BP (!) 190/66 Pulse [...] DECISION MAKING: I had a discussion with Gumaro to make sure she has a good understanding of the diagnoses/issues that I think are present today and understands the plan moving forward. I explained to Gumaro that her fracture of the left lateral malleolus is in acceptable alignment and is progressively healing as expected As a result it was decided to have Gumaro transition from the aircast boot to a shoe with a laceup brace. she was instructed to use the laceup brace for the next 6 weeks and then she can wean from the brace to just a shoe if her symptoms will allow. Gumaro was given a brace today and was instructed on it (more content not included)... [facility] 36on 10-14-2023 36 Spoke with Beny at [facility] and clarified that Gumaro should bear weight in her boot until next visit and should use walker as needed for balance. [facility] 36 Name of Caller: Gareth at [facility] Contact ask for Gareth Reason Gareth is calling after looking at the discharge paperwork from today's apt for Gumaro. In the apt he states that they were told that Gumaro should be using a walker and wearing a boot, the take home paperwork says weight bearing as tolerated. He is looking for clarification between the two as to what they are to be doing. He is requesting a call back. Office Name: Ortho [facility] Office Visiton 10-14-2023 Follow-up visit [id number] Joy Bustamante grace 1945 F Date Provider Department Center 10/14/2023 [id number] BETTENCOURT [facility] None No family history on file Level of Service:89271 CT OFFICE/OUTPATIENT ESTABLISHED LOW MDM 20 MIN Reason for Visit and Comments: Follow-up [414654] - Left distal fibula fx DOI 07/02/[address] [facility] Progress Noteon 10-14-2023 Progress Note [facility] [address] [place] [address] [place] [id number] Dept: [phone] Dept Gumaro Daria 1945 [id number] 10/14/2023 HISTORY OF PRESENT ILLNESS: Gumaro returns for re-evaluation of her Left distal fibula fx DOI 07/02/23 Gumaro reports that her pain has been minimal Gumaro reports that her swelling has been minimal Gumaro denies calf pain and shortness of breath Gumaro has been nonweight bearing on the right lower extremity in in an Aircast boot which she has been taking off for sleep and ROM. In general Gumaro feels that she is doing better than [...] reaction(s): Hives, Shortness of breath Aspirin Unknown Oxycodone-Acetaminophe n Trimethoprim Other reaction(s): Shortness of breath Diphenhydramine-Acetam inophen Ibuprofen PHYSICAL EXAM: There were no vitals [...] DECISION MAKING: I had a discussion with Gumaro to make sure she has a good understanding of the diagnoses/issues that I think are present today and understands the plan moving forward. I explained to Gumaro that her fracture of the left lateral malleolus is in acceptable alignment and is progressively healing as expected As a result it was decided that Gumaro will stay in the aircast boot that she has been in. We discussed that she is most likely experiencing posterior tibial tendonitis causing the medial sided pain. She was given an order that physical therapy can resume at the facility. Gumaro was instructed to be partial weight bearing and can advance to full weight bearing as tolerated on the left lower extremity in the Aircast boot. If Gumaro has any problems maintaining this weight bearing status she was instructed to call me so that appropriate instructions can be given. Gumaro was instructed to continue to elevate the left lower extremity for comfort. I explained that elevation means keeping the toes at the level of her nose. If her leg is not elevated to that height then it is not truly elevated and she may continue to have swelling and discomfort as a result. I want to see Gumaro back in approximately 6 weeks for revaluation and she will need xrays consisting of 3 weight bearing views of the Left ankle If Gumaro feels that the above plan of treatment is going poorly or if she is having problems with the above p (more content not included)... Normal [facility] Clostridioides difficile nuc leic acid assay by PCROrdered By: Balwinder Alves on 09-23-2023 C. difficile DNA DIGNA+probe Ql (Unsp spec) [facility] Clostridium difficile detect ion by polymerase chain reactionOrdered By: Balwinder Alves on 09-23-2023 C. difficile DNA DIGNA+probe Ql (Unsp spec) [facility] Basophil percentageOrdered B y: Balwinder Alves on 09-14-2023 Chloride [Moles/Vol] 102 mmol/L 98-107 [facility] Glucose [Mass/Vol] 142 mg/dL 74-106 [facility] Comment on above: Fasting Glucose resu lt greater than or equal to 126 mg/dL suggests DIABETES MELLITUS per A.D.A. criteria. Potassium [Moles/Vol] 4.1 mmol/L 3.5-5.1 [facility] Sodium [Moles/Vol] 138 mmol/L 136-145 [facility] WBC (Bld) [#/Vol] 5.9 10*3/uL 4.4-11.0 [facility] Blood erythrocytes count (nu mber/volume)Ordered By: Balwinder Alves on 09-14-2023 RBC (Bld) [#/Vol] 4.96 10*6/uL 4.2-5.4 [facility] Blood hemoglobin measurement (mass/volume)Ordered By: Balwinder Alves on 09-14-2023 Hemoglobin (Bld) [Mass/Vol] 13.3 g/dL 12.0-15.0 [facility] Blood platelet mean volumeOr dered By: Balwinder Alves on 09-14-2023 Platelet mean volume (Bld) [Entitic vol] 8.3 fL 6.2-12.0 [facility] Determination of erythrocyte mean corpuscular volume (MCV)Ordered By: Balwinder Alves on 09-14-2023 MCV (RBC) [Entitic vol] 92.5 fL 81-99 [facility] Hematocrit Auto (Bld) [Volum e fraction]Ordered By: Balwinder Alves on 09-14-2023 Hematocrit (Bld) [Volume fraction] 45.9 % 37-47 [facility] Laboratory - Chemistry and C hemistry - challengeOrdered By: Balwinder Alves on 09-14-2023 CO2 [Moles/Vol] 31.0 mmol/L 21.0-32.0 [facility] Urea nitrogen/Creatinine [Mass ratio] 10.1 mg/mg 10-20 [facility] Laboratory - Hematology and Cell countsOrdered By: Balwinder Alves on 09-14-2023 Erythrocyte distribution width (RBC) [Entitic vol] 47.0 fL 35.1-43.9 [facility] Erythrocyte distribution width (RBC) [Ratio] 13.9 % 11.6-14.6 [facility] MCH (RBC) [Entitic mass] 26.8 pg 27.0-32.0 [facility] MCHC Auto (RBC) [Mass/Vol]Or dered By: Balwinder Alves on 09-14-2023 MCHC (RBC) [Mass/Vol] 29.0 g/dL 32-36 [facility] No Panel InformationOrdered By: Balwinder Alves on 09-14-2023 Estimated GFR (MDRD) Amer 125 mL/min >60 [facility] Comment on above: GFR Calc Estimated GFR (MDRD) Non-Af Amer 103 mL/min >60 [facility] Comment on above: Non- GFR Calc Office Visiton 09-14-2023 Follow-up visit [id number] Joy Bustamante grace 1945 F Date Provider Department Center 09/14/2023 [id number] GRIGGS [facility] None No family history on file Level of Service:54004 CT OFFICE/OUTPATIENT NEW MODERATE MDM 45-59 MINUTES Reason for Visit and Comments: New Patient [542] - LT distal fibula fx DOI 07/02/23 Normal [facility] Platelets bldOrdered By: Javed Alves on 09-14-2023 Platelets (Bld) [#/Vol] 196 10*3/uL 150-450 [facility] Progress Noteon 09-14-2023 Progress Note [facility] [address] [facility] [address] Dept: [phone] Dept Gumaro Bustamante 1945 [id number] 09/14/2023 HISTORY OF PRESENT ILLNESS: Gumaro is a 78 y.o. female here today for evaluation of her Left distal fibula fx DOI 07/02/23. Patient has been in a walking boot. Patient is diabetic. She is currently in a assisted due to injury. She was supposed to be seen closer to her fx date but her appointments were canceled due to assisted transportation issues. She has been nonweightbearing since her injury. Gumaro states the problem has been present for 3 months est Gumaro states the problem started as the result of a fall, tripped walking into her home. Gumaro has tried or has been treated with the following: walking boot, assisted PT. Review of Systems Surgical Risk Factors: Allergies to Metals or Latex: NO Have you been treated for a blood clot: NO Have you had a history of bleeding disorder: NO Have you had a history of Anesthetic problems: NO Do you have tendency to bruise easily: NO Do you experience prolonged or excessive bleeding from cuts or after surgery: NO General/Constitutional : General: no Cancer: NO Acute/Chronic Infections: NO [...] medical history on file. Allergies Allergen Reactions Amoxicillin-Pot Clavulanate Rash Cephalexin Hives Immediate rash / hives; patient seen in ER after last administration of Keflex Ciprofloxacin Rash Dapagliflozin Rash Latex Aspirin Unknown Diphenhydramine-Acetam inophen PHYSICAL EXAM: Wt 265 lb (120 kg) This is an age appropriate appearing female who is alert and oriented x 3. The patient appears well nourished. Psychiatric: The patient is able to verbalize normally and seems to have a good understanding of her situation. The left lower extremity is examined. Skin: Skin is warm and dry and mottled, chronic lymphedema skin changes are noted in the leg just proximal to the ankle Lymphatic: No lymphadenopathy Moderate swelling of the leg and ankle Vascular: Capillary refill in the foot/toes is less than 3 seconds. Neurologic: Sensation is decreased to light touch throughout the foot and the ankle . Musculoskeletal: The calf is nontender to palpation. Muscle strength testing limited secondary to injury but Gumaro was able to actively dorsiflex, plantarflex, invert and chris the foot and ankle through short arcs of motion ROM: Decreased ROM of the foot and ankle Alignment: No obvious deformity Areas of Tenderness: The lateral malleolus was nontender to palpation. A hindfoot valgus deformity is present that does not fully correct passively. With the hindfoot corrected a forefoot varus deformity is present. RADIOGRAPHIC INTERPRETATION: 3 nonweightbearing views of the left foot and left ankle were obtained and the following is my interpretation of the findings present of the X-rays: The left foot x-rays reveal uncoverage of the talar head of about 40% on the AP view of the talonavicular joint. A decrease in marginal arch height is noted although this is a nonweightbearing views of the severity of the loss in arch height is difficult to determine. No other abnormalities are noted. The ankle x-rays show a long oblique lateral malleolar fracture with an intact ankle mortise and syndesmosis. Interval bone healing is noted at the lateral malleolar fracture site. REVIEW OF RELATED PREVIOUS DOCUMENTATION: No documents related to the current problem(s) were reviewed or no documents were available for review. LABORATORY RESULT INTERPRETATION: No labs were reviewed/No labs available for review DIAGNOSIS: Diagnosis Plan 1. Acute left ankle pain XR ankle 3+ views left XR foot 3+ views left MEDICAL DECISION MAKING: I had a discussion with Gumaro to make sure she has a good understanding of the diagnoses/issues that I think are present today and understands the plan moving forward. I explained to Gumaro and her family that her lateral malleolar fracture is in good alignment and given he (more content not included)... Normal [facility] Serum or plasma calcium jacqueline urement (mass/volume)Ordered By: Balwinder Alves on 09-14-2023 Calcium [Mass/Vol] 8.9 mg/dL 8.5-10.1 [facility] Serum or plasma creatinine m easurement (mass/volume)Ordered By: Balwinder Alves on 09-14-2023 Creatinine [Mass/Vol] 0.59 mg/dL 0.55-1.02 [facility] Comment on above: The validity of the calculated GFR & GFRAA in patients over 70 years has not been determined. Clinical correlation is essential. Serum or plasma urea nitroge n measurement (mass/volume)Ordered By: Balwinder Alves on 09-14-2023 Urea nitrogen [Mass/Vol] 6 mg/dL 7-18 [facility] Thin prep Papanicolaou smear with manual screeningOrdered By: Balwinder Alves on 09-14-2023 Thin prep Papanicolaou smear with manual screening 5 5-15 [facility] XR ANKLE 3+ VIEWS LEFTon XR ANKLE 3+ VIEWS LEFT 3 nonweightbearin g views of the left foot and left ankle were obtained and the following is my interpretation of the findings present of the X-rays: The left foot x-rays reveal uncoverage of the talar head of about 40% on the AP view of the talonavicular joint. A decrease in marginal arch height is noted although this is a nonweightbearing views of the severity of the loss in arch height is difficult to determine. No other abnormalities are noted. The ankle x-rays show a long oblique lateral malleolar fracture with an intact ankle mortise and syndesmosis. Interval bone healing is noted at the lateral malleolar fracture site. Normal [facility] XR FOOT 3+ VIEWS LEFTon 09-04 XR FOOT 3+ VIEWS LEFT 3 nonweightbearing views of the left foot and left ankle were obtained and the following is my interpretation of the findings present of the X-rays: The left foot x-rays reveal uncoverage of the talar head of about 40% on the AP view of the talonavicular joint. A decrease in marginal arch height is noted although this is a nonweightbearing views of the severity of the loss in arch height is difficult to determine. No other abnormalities are noted. The ankle x-rays show a long oblique lateral malleolar fracture with an intact ankle mortise and syndesmosis. Interval bone healing is noted at the lateral malleolar fracture site. Normal [facility] 36on 09-03-2023 36 Left distal fibula f x doi 07/02/23 she is in a boot. Can only be seen in [place] or [place]. No wads Normal [facility] 36on 09-02-2023 36 Gareth an RN at [facility] [employer] called [phone] ext [phone], he states that they just got Gumaro from [place] and they are looking for her to follow up with a doctor. She broke her foot on 06/30/23 and she is still in a boot and is non weight bearing. He was looking to get information on Gumrao and to possibly get her scheduled. Gumaro is currently stating she does not want surgery, and he is going to check with her daughter. He doesn't know much about her since they just got her today. He is requesting a call back, he works until 2:30 today and then works again tomorrow. Normal [facility] 36on 07-17-2023 36 LVM to schedule with Dr. Ureña on Thursday at 1pm in [facility] or 9am in [place] if not already double booked. Normal [facility] .Auto DiffOrdered By: SYSTEM SYSTEM on 07-04-2023 Basophil, Absolute 0.0 103/mcL Normal 0.0-0.2 AO Wo rkflow SS Comment on above: Performed By: #### L IPID, ADIFF, ANEU, CMP, CBC, GFR #### [address] [address] Basophils/100 WBC (Bld) 0.4 % Normal 0.0-2.5 A O Workflow SS Comment on above: Performed By: #### L IPID, ADIFF, ANEU, CMP, CBC, GFR #### [address] [address] Eosinophil, Absolute 0.4 103/mcL Normal 0.0-0.4 AO Workflow SS Comment on above: Performed By: #### L IPID, ADIFF, ANEU, CMP, CBC, GFR #### [address] [address] Eosinophils/100 WBC (Bld) 6.9 % Normal 0.0-7.0 AO Workflow SS Comment on above: Performed By: #### L IPID, ADIFF, ANEU, CMP, CBC, GFR #### [address] [address] Lymphocyte, Absolute 1.7 103/mcL Normal 0.8-3.9 AO Workflow SS Comment on above: Performed By: #### L IPID, ADIFF, ANEU, CMP, CBC, GFR #### [address] [address] Lymphocytes/100 WBC (Bld) 27.3 % Normal 10.0-50.0 AO Workflow SS Comment on above: Performed By: #### L IPID, ADIFF, ANEU, CMP, CBC, GFR #### [address] [address] Monocyte, Absolute 0.4 103/mcL Normal 0.2-1.0 AO Wo rkflow SS Comment on above: Performed By: #### L IPID, ADIFF, ANEU, CMP, CBC, GFR #### [address] [address] Monocytes/100 WBC (Bld) 6.4 % Normal 1.7-13.0 A O Workflow SS Comment on above: Performed By: #### L IPID, ADIFF, ANEU, CMP, CBC, GFR #### [address] [address] Neutrophils/100 WBC (Bld) 59.0 % Normal 37.0-80.0 AO Workflow SS Comment on above: Performed By: #### L IPID, ADIFF, ANEU, CMP, CBC, GFR #### [address] [address] .GFRon 07-04-2023 GFR 93 ml/min/1.73sqm Normal [facility] ([place]) Comment on above: Result Comment: GFR Population mean for , Non- Americans Ages 20-29 = 116 mL/min/1.73 sq.m. Ages 30-39 = 107 mL/min/1.73 sq.m. Ages 40-49 = 99 mL/min/1.73 sq.m. Ages 50-59 = 93 mL/min/1.73 sq.m. Ages 60-69 = 85 mL/min/1.73 sq.m. Ages 70+ = 75 mL/min/1.73 sq.m. Chronic Kidney Disease: Less than 60 mL/min/1.73 square meters End Stage Renal Disease: Less than 15 mL/min/1.73 square meters Performed By: #### L IPID, ADIFF, ANEU, CMP, CBC, GFR #### [address] [address] GFR Non- 77 ml/min/1.73sqm Normal [facility] ([place]) Comment on above: Result Comment: GFR Population mean for , Non- Americans Ages 20-29 = 116 mL/min/1.73 sq.m. Ages 30-39 = 107 mL/min/1.73 sq.m. Ages 40-49 = 99 mL/min/1.73 sq.m. Ages 50-59 = 93 mL/min/1.73 sq.m. Ages 60-69 = 85 mL/min/1.73 sq.m. Ages 70+ = 75 mL/min/1.73 sq.m. Chronic Kidney Disease: Less than 60 mL/min/1.73 square meters End Stage Renal Disease: Less than 15 mL/min/1.73 square meters Performed By: #### L IPID, ADIFF, ANEU, CMP, CBC, GFR #### [address] [address] .NEUABSOrdered By: SYSTEM SY STEM on 07-04-2023 Neutrophil, Absolute 3.7 103/mcL Normal 2.9-6.2 AO Workflow SS Comment on above: Performed By: #### L IPID, ADIFF, ANEU, CMP, CBC, GFR #### [address] [address] BMPon 07-04-2023 BUN/Creatinine Ratio 14 ratio Normal 7-27 [facility] ([place]) Comment on above: Performed By: #### L IPID, ADIFF, ANEU, CMP, CBC, GFR #### [address] [address] BMPOrdered By: SYSTEM SYSTEM on 07-04-2023 Calcium [Mass/Vol] 8.1 mg/dL Low 8.4-10.2 AO ADM SS Comment on above: Performed By: #### L IPID, ADIFF, ANEU, CMP, CBC, GFR #### [address] [address] Chloride [Moles/Vol] 104 mmol/L Normal 98-107 AO A DM SS Comment on above: Performed By: #### L IPID, ADIFF, ANEU, CMP, CBC, GFR #### [address] [address] CO2 [Moles/Vol] 29 mmol/L Normal 23-31 AO ADM SS Comment on above: Performed By: #### L IPID, ADIFF, ANEU, CMP, CBC, GFR #### [address] [address] Creatinine [Mass/Vol] 0.73 mg/dL Normal 0.55-1.02 AO ADM SS Comment on above: Performed By: #### L IPID, ADIFF, ANEU, CMP, CBC, GFR #### [address] [address] Electrolyte Balance 6.0 mEq/L Normal 4.0-15.0 AO AD M SS Comment on above: Performed By: #### L IPID, ADIFF, ANEU, CMP, CBC, GFR #### [place] [id number] Glucose [Mass/Vol] 145 mg/dL High 83-110 AO ADM SS Comment on above: Performed By: #### L IPID, ADIFF, ANEU, CMP, CBC, GFR #### [address] [address] Potassium [Moles/Vol] 4.9 mmol/L Normal 3.5-5.1 AO ADM SS Comment on above: Performed By: #### L IPID, ADIFF, ANEU, CMP, CBC, GFR #### [address] [address] Sodium [Moles/Vol] 139 mmol/L Normal 136-145 AO ADM SS Comment on above: Performed By: #### L IPID, ADIFF, ANEU, CMP, CBC, GFR #### [address] [address] Urea nitrogen [Mass/Vol] 10 mg/dL Normal 7-18 AO ADM SS Comment on above: Performed By: #### L IPID, ADIFF, ANEU, CMP, CBC, GFR #### [address] [address] CBCOrdered By: SYSTEM SYSTEM on 07-04-2023 Erythrocyte distribution width (RBC) [Ratio] 14.2 % Normal 11.5-14.5 AO Workflow SS Comment on above: Performed By: #### L IPID, ADIFF, ANEU, CMP, CBC, GFR #### [address] [address] Hematocrit (Bld) [Volume fraction] 35.4 % Low 37.0-47.0 AO Workflow SS Comment on above: Performed By: #### L IPID, ADIFF, ANEU, CMP, CBC, GFR #### [address] [address] MCH (RBC) [Entitic mass] 28.7 pg Normal 27.0-31.2 AO Workflow SS Comment on above: Performed By: #### L IPID, ADIFF, ANEU, CMP, CBC, GFR #### [address] [address] MCHC 32.4 G/dL Low 33.0-37.0 AO Workflow SS Comment on above: Performed By: #### L IPID, ADIFF, ANEU, CMP, CBC, GFR #### [address] [address] MCV (RBC) [Entitic vol] 88.6 fL Normal 80.0-94.0 A O Workflow SS Comment on above: Performed By: #### L IPID, ADIFF, ANEU, CMP, CBC, GFR #### [address] [address] Platelet mean volume (Bld) [Entitic vol] 6.5 fL Low 7.4-10.4 AO Workflow SS Comment on above: Performed By: #### L IPID, ADIFF, ANEU, CMP, CBC, GFR #### [address] [address] CBCon 07-04-2023 Hgb 11.4 G/dL Low 12.0-16.0 [facility] ([place]) Comment on above: Performed By: #### L IPID, ADIFF, ANEU, CMP, CBC, GFR #### [address] [address] Platelet 165 10 3/mcL Normal 130-400 [facility] ([place]) Comment on above: Performed By: #### L IPID, ADIFF, ANEU, CMP, CBC, GFR #### [place] [id number] [place], [place] [address] RBC 3.99 10 6/mcL Low 4.20-5.40 [facility] ([place]) Comment on above: Performed By: #### L IPID, ADIFF, ANEU, CMP, CBC, GFR #### [place] [id number] [place], [place] [address] WBC 6.3 10 3/mcL Normal 4.6-10.8 [facility] ([place]) Comment on above: Performed By: #### L IPID, ADIFF, ANEU, CMP, CBC, GFR #### [place] [id number] [place], [place] [address] LABORATORYOrdered By: Darwin Diaz on 07-04-2023 Blood Glucose Testing Reason Routine (07/04/23 4:36 PM) [facility] Work Phone: Glucose [Mass/Vol] 125 mg/dL Invalid Interpretation Code 82 - 115 mg/dL [facility] Work Phone: Blood Glucose Testing Reason Routine (07/04/23 10:38 AM) [facility] Work Phone: LABORATORYOrdered By: Loretta Mejia on 07-04-2023 Glucose [Mass/Vol] 140 mg/dL Invalid Interpretation Code 82 - 115 mg/dL [facility] Work Phone: Glucose [Mass/Vol] 139 mg/dL Invalid Interpretation Code 82 - 115 mg/dL [facility] Work Phone: LABORATORYOrdered By: SYSTEM SYSTEM on 07-04-2023 GFR/1.73 sq M.predicted among blacks MDRD (S/P/Bld) [Vol rate/Area] 93 ml/min/1.73sqm Invalid Interpretation Code AO Chemistry S Comment on above: Interpretive Data: GFR Population mean for , Non- Americans Ages 20-29 = 116 mL/min/1.73 sq.m. Ages 30-39 = 107 mL/min/1.73 sq.m. Ages 40-49 = 99 mL/min/1.73 sq.m. Ages 50-59 = 93 mL/min/1.73 sq.m. Ages 60-69 = 85 mL/min/1.73 sq.m. Ages 70+ = 75 mL/min/1.73 sq.m. Chronic Kidney Disease: Less than 60 mL/min/1.73 square meters End Stage Renal Disease: Less than 15 mL/min/1.73 square meters GFR/1.73 sq M.predicted among non-blacks MDRD (S/P/Bld) [Vol rate/Area] 77 ml/min/1.73sqm Invalid Interpretation Code AO Chemistry S Comment on above: Interpretive Data: GFR Population mean for , Non- Americans Ages 20-29 = 116 mL/min/1.73 sq.m. Ages 30-39 = 107 mL/min/1.73 sq.m. Ages 40-49 = 99 mL/min/1.73 sq.m. Ages 50-59 = 93 mL/min/1.73 sq.m. Ages 60-69 = 85 mL/min/1.73 sq.m. Ages 70+ = 75 mL/min/1.73 sq.m. Chronic Kidney Disease: Less than 60 mL/min/1.73 square meters End Stage Renal Disease: Less than 15 mL/min/1.73 square meters Hemoglobin (Bld) [Mass/Vol] 11.4 G/dL Invalid Interpretation Code 12.0 - 16.0 G/dL AO Workflow SS Platelets (Bld) [#/Vol] 165 103/mcL Invalid Interpretation Code 130 - 400 10^3/mcL AO Workflow SS RBC (Bld) [#/Vol] 3.99 106/mcL Invalid Interpretation Code 4.20 - 5.40 10^6/mcL AO Workflow SS Urea nitrogen/Creatinine [Mass ratio] 14 ratio Invalid Interpretation Code 7 - 27 ratio AO ADM SS WBC (Bld) [#/Vol] 6.3 103/mcL Invalid Interpretation Code 4.6 - 10.8 10^3/mcL AO Workflow SS MGOrdered By: SYSTEM SYSTEM on 09-30-2023 Magnesium [Mass/Vol] 1.7 mg/dL Low 1.8-2.4 AO A DM SS Comment on above: Performed By: #### L IPID, ADIFF, ANEU, CMP, CBC, GFR #### [address] [address] .Auto Diffon 07-03-2023 Basophil, Absolute 0.0 10 3/mcL Normal 0.0-0.2 [facility] ([place]) Comment on above: Performed By: #### L IPID, ADIFF, ANEU, CMP, CBC, GFR #### [address] [address] Basophils/100 WBC (Bld) 0.5 % Normal 0.0-2.5 A [facility] ([place]) Comment on above: Performed By: #### L IPID, ADIFF, ANEU, CMP, CBC, GFR #### [address] [address] Eosinophil, Absolute 0.4 10 3/mcL Normal 0.0-0.4 [facility] ([place]) Comment on above: Performed By: #### L IPID, ADIFF, ANEU, CMP, CBC, GFR #### [address] [address] Eosinophils/100 WBC (Bld) 6.7 % Normal 0.0-7.0 [facility] ([place]) Comment on above: Performed By: #### L IPID, ADIFF, ANEU, CMP, CBC, GFR #### [address] [address] Lymphocyte, Absolute 1.8 10 3/mcL Normal 0.8-3.9 [facility] ([place]) Comment on above: Performed By: #### L IPID, ADIFF, ANEU, CMP, CBC, GFR #### [address] [address] Lymphocytes/100 WBC (Bld) 31.4 % Normal 10.0-50.0 [facility] ([place]) Comment on above: Performed By: #### L IPID, ADIFF, ANEU, CMP, CBC, GFR #### [address] [address] Monocyte, Absolute 0.4 10 3/mcL Normal 0.2-1.0 [facility] ([place]) Comment on above: Performed By: #### L IPID, ADIFF, ANEU, CMP, CBC, GFR #### [address] [address] Monocytes/100 WBC (Bld) 6.4 % Normal 1.7-13.0 A [facility] ([place]) Comment on above: Performed By: #### L IPID, ADIFF, ANEU, CMP, CBC, GFR #### [address] [address] Neutrophils/100 WBC (Bld) 55.0 % Normal 37.0-80.0 [facility] ([place]) Comment on above: Performed By: #### L IPID, ADIFF, ANEU, CMP, CBC, GFR #### [address] [address] .GFRon 07-03-2023 GFR 92 ml/min/1.73sqm Normal [facility] ([place]) Comment on above: Result Comment: GFR Population mean for , Non- Americans Ages 20-29 = 116 mL/min/1.73 sq.m. Ages 30-39 = 107 mL/min/1.73 sq.m. Ages 40-49 = 99 mL/min/1.73 sq.m. Ages 50-59 = 93 mL/min/1.73 sq.m. Ages 60-69 = 85 mL/min/1.73 sq.m. Ages 70+ = 75 mL/min/1.73 sq.m. Chronic Kidney Disease: Less than 60 mL/min/1.73 square meters End Stage Renal Disease: Less than 15 mL/min/1.73 square meters Performed By: #### L IPID, ADIFF, ANEU, CMP, CBC, GFR #### [address] [address] GFR Non- 76 ml/min/1.73sqm Normal [facility] ([place]) Comment on above: Result Comment: GFR Population mean for , Non- Americans Ages 20-29 = 116 mL/min/1.73 sq.m. Ages 30-39 = 107 mL/min/1.73 sq.m. Ages 40-49 = 99 mL/min/1.73 sq.m. Ages 50-59 = 93 mL/min/1.73 sq.m. Ages 60-69 = 85 mL/min/1.73 sq.m. Ages 70+ = 75 mL/min/1.73 sq.m. Chronic Kidney Disease: Less than 60 mL/min/1.73 square meters End Stage Renal Disease: Less than 15 mL/min/1.73 square meters Performed By: #### L IPID, ADIFF, ANEU, CMP, CBC, GFR #### [address] [address] .NEUABSon 07-03-2023 Neutrophil, Absolute 3.2 10 3/mcL Normal 2.9-6.2 [facility] ([place]) Comment on above: Performed By: #### L IPID, ADIFF, ANEU, CMP, CBC, GFR #### [address] [address] BMPon 07-03-2023 BUN/Creatinine Ratio 11 ratio Normal 7-27 [facility] ([place]) Comment on above: Performed By: #### L IPID, ADIFF, ANEU, CMP, CBC, GFR #### [address] [address] Calcium [Mass/Vol] 8.4 mg/dL Normal 8.4-10.2 [facility] ([place]) Comment on above: Performed By: #### L IPID, ADIFF, ANEU, CMP, CBC, GFR #### [address] [address] Chloride [Moles/Vol] 103 mmol/L Normal 98-107 [facility] ([place]) Comment on above: Performed By: #### L IPID, ADIFF, ANEU, CMP, CBC, GFR #### [address] [address] CO2 [Moles/Vol] 31 mmol/L Normal 23-31 [facility] ([place]) Comment on above: Performed By: #### L IPID, ADIFF, ANEU, CMP, CBC, GFR #### [address] [address] Creatinine [Mass/Vol] 0.74 mg/dL Normal 0.55-1.02 [facility] ([place]) Comment on above: Performed By: #### L IPID, ADIFF, ANEU, CMP, CBC, GFR #### [address] [address] Electrolyte Balance 6.0 mEq/L Normal 4.0-15.0 [facility] ([place]) Comment on above: Performed By: #### L IPID, ADIFF, ANEU, CMP, CBC, GFR #### [address] [address] Glucose [Mass/Vol] 165 mg/dL High 83-110 [facility] ([place]) Comment on above: Performed By: #### L IPID, ADIFF, ANEU, CMP, CBC, GFR #### [address] [address] Potassium [Moles/Vol] 4.6 mmol/L Normal 3.5-5.1 [facility] ([place]) Comment on above: Performed By: #### L IPID, ADIFF, ANEU, CMP, CBC, GFR #### [address] [address] Sodium [Moles/Vol] 140 mmol/L Normal 136-145 [facility] ([place]) Comment on above: Performed By: #### L IPID, ADIFF, ANEU, CMP, CBC, GFR #### [address] [address] Urea nitrogen [Mass/Vol] 8 mg/dL Normal 7-18 [facility] ([place]) Comment on above: Performed By: #### L IPID, ADIFF, ANEU, CMP, CBC, GFR #### [address] [address] CBCon 07-03-2023 Erythrocyte distribution width (RBC) [Ratio] 14.4 % Normal 11.5-14.5 [facility] ([place]) Comment on above: Performed By: #### L IPID, ADIFF, ANEU, CMP, CBC, GFR #### [place] [address] Hematocrit (Bld) [Volume fraction] 36.4 % Low 37.0-47.0 [facility] ([place]) Comment on above: Performed By: #### L IPID, ADIFF, ANEU, CMP, CBC, GFR #### [place] [address] Hgb 11.6 G/dL Low 12.0-16.0 [facility] ([place]) Comment on above: Performed By: #### L IPID, ADIFF, ANEU, CMP, CBC, GFR #### [address] [address] MCH (RBC) [Entitic mass] 28.3 pg Normal 27.0-31.2 [facility] ([place]) Comment on above: Performed By: #### L IPID, ADIFF, ANEU, CMP, CBC, GFR #### [place] [address] MCHC 31.9 G/dL Low 33.0-37.0 [facility] ([place]) Comment on above: Performed By: #### L IPID, ADIFF, ANEU, CMP, CBC, GFR #### [place] [address] MCV (RBC) [Entitic vol] 88.9 fL Normal 80.0-94.0 A [facility] ([place]) Comment on above: Performed By: #### L IPID, ADIFF, ANEU, CMP, CBC, GFR #### [place] [id number] Platelet 158 10 3/mcL Normal 130-400 [facility] ([place]) Comment on above: Performed By: #### L IPID, ADIFF, ANEU, CMP, CBC, GFR #### [place] [address] Platelet mean volume (Bld) [Entitic vol] 6.6 fL Low 7.4-10.4 [facility] ([place]) Comment on above: Performed By: #### L IPID, ADIFF, ANEU, CMP, CBC, GFR #### [facility] [address] [place], [place] [address] RBC 4.10 10 6/mcL Low 4.20-5.40 [facility] ([place]) Comment on above: Performed By: #### L IPID, ADIFF, ANEU, CMP, CBC, GFR #### [place] [id number] [place], [place] [address] WBC 5.8 10 3/mcL Normal 4.6-10.8 [facility] ([place]) Comment on above: Performed By: #### L IPID, ADIFF, ANEU, CMP, CBC, GFR #### [place] [id number] [place], [place] [address] LABORATORYOrdered By: Jose Shepard on 07-03-2023 Blood Glucose Testing Reason Routine (07/03/23 9:10 PM) [facility] Work Phone: LABORATORYOrdered By: SYSTEM SYSTEM on 07-03-2023 Basophil, Absolute 0.0 103/mcL Invalid Interpretation Code 0.0 - 0.2 10^3/mcL AO Workflow SS Basophils/100 WBC (Bld) 0.5 % Invalid Interpretation Code 0.0 - 2.5 % AO Workflow SS Calcium [Mass/Vol] 8.4 mg/dL Invalid Interpretation Code 8.4 - 10.2 mg/dL AO ADM SS Chloride [Moles/Vol] 103 mmol/L Invalid Interpretation Code 98 - 107 mmol/L AO ADM SS CO2 [Moles/Vol] 31 mmol/L Invalid Interpretation Code 23 - 31 mmol/L AO ADM SS Creatinine [Mass/Vol] 0.74 mg/dL Invalid Interpretation Code 0.55 - 1.02 mg/dL AO ADM SS Electrolyte Balance 6.0 mEq/L Invalid Interpretation Code 4.0 - 15.0 mEq/L AO ADM SS Eosinophil, Absolute 0.4 103/mcL Invalid Interpretation Code 0.0 - 0.4 10^3/mcL AO Workflow SS Eosinophils/100 WBC (Bld) 6.7 % Invalid Interpretation Code 0.0 - 7.0 % AO Workflow SS Erythrocyte distribution width (RBC) [Ratio] 14.4 % Invalid Interpretation Code 11.5 - 14.5 % AO Workflow SS GFR/1.73 sq M.predicted among blacks MDRD (S/P/Bld) [Vol rate/Area] 92 ml/min/1.73sqm Invalid Interpretation Code AO Chemistry S Comment on above: Interpretive Data: GFR Population mean for , Non- Americans Ages 20-29 = 116 mL/min/1.73 sq.m. Ages 30-39 = 107 mL/min/1.73 sq.m. Ages 40-49 = 99 mL/min/1.73 sq.m. Ages 50-59 = 93 mL/min/1.73 sq.m. Ages 60-69 = 85 mL/min/1.73 sq.m. Ages 70+ = 75 mL/min/1.73 sq.m. Chronic Kidney Disease: Less than 60 mL/min/1.73 square meters End Stage Renal Disease: Less than 15 mL/min/1.73 square meters GFR/1.73 sq M.predicted among non-blacks MDRD (S/P/Bld) [Vol rate/Area] 76 ml/min/1.73sqm Invalid Interpretation Code AO Chemistry S Comment on above: Interpretive Data: GFR Population mean for , Non- Americans Ages 20-29 = 116 mL/min/1.73 sq.m. Ages 30-39 = 107 mL/min/1.73 sq.m. Ages 40-49 = 99 mL/min/1.73 sq.m. Ages 50-59 = 93 mL/min/1.73 sq.m. Ages 60-69 = 85 mL/min/1.73 sq.m. Ages 70+ = 75 mL/min/1.73 sq.m. Chronic Kidney Disease: Less than 60 mL/min/1.73 square meters End Stage Renal Disease: Less than 15 mL/min/1.73 square meters Glucose [Mass/Vol] 165 mg/dL Invalid Interpretation Code 83 - 110 mg/dL AO ADM SS Hematocrit (Bld) [Volume fraction] 36.4 % Invalid Interpretation Code 37.0 - 47.0 % AO Workflow SS Hemoglobin (Bld) [Mass/Vol] 11.6 G/dL Invalid Interpretation Code 12.0 - 16.0 G/dL AO Workflow SS Lymphocyte, Absolute 1.8 103/mcL Invalid Interpretation Code 0.8 - 3.9 10^3/mcL AO Workflow SS Lymphocytes/100 WBC (Bld) 31.4 % Invalid Interpretation Code 10.0 - 50.0 % AO Workflow SS Magnesium [Mass/Vol] 1.8 mg/dL Invalid Interpretation Code 1.8 - 2.4 mg/dL AO ADM SS MCH (RBC) [Entitic mass] 28.3 pg Invalid Interpretation Code 27.0 - 31.2 pg AO Workflow SS MCHC 31.9 G/dL Invalid Interpretation Code 33.0 - 37.0 G/dL AO Workflow SS MCV (RBC) [Entitic vol] 88.9 fL Invalid Interpretation Code 80.0 - 94.0 fL AO Workflow SS Monocyte, Absolute 0.4 103/mcL Invalid Interpretation Code 0.2 - 1.0 10^3/mcL AO Workflow SS Monocytes/100 WBC (Bld) 6.4 % Invalid Interpretation Code 1.7 - 13.0 % AO Workflow SS Neutrophil, Absolute 3.2 103/mcL Invalid Interpretation Code 2.9 - 6.2 10^3/mcL AO Workflow SS Neutrophils/100 WBC (Bld) 55.0 % Invalid Interpretation Code 37.0 - 80.0 % AO Workflow SS Platelet mean volume (Bld) [Entitic vol] 6.6 fL Invalid Interpretation Code 7.4 - 10.4 fL AO Workflow SS Platelets (Bld) [#/Vol] 158 103/mcL Invalid Interpretation Code 130 - 400 10^3/mcL AO Workflow SS Potassium [Moles/Vol] 4.6 mmol/L Invalid Interpretation Code 3.5 - 5.1 mmol/L AO ADM SS RBC (Bld) [#/Vol] 4.10 106/mcL Invalid Interpretation Code 4.20 - 5.40 10^6/mcL AO Workflow SS Sodium [Moles/Vol] 140 mmol/L Invalid Interpretation Code 136 - 145 mmol/L AO ADM SS Urea nitrogen [Mass/Vol] 8 mg/dL Invalid Interpretation Code 7 - 18 mg/dL AO ADM SS Urea nitrogen/Creatinine [Mass ratio] 11 ratio Invalid Interpretation Code 7 - 27 ratio AO ADM SS WBC (Bld) [#/Vol] 5.8 103/mcL Invalid Interpretation Code 4.6 - 10.8 10^3/mcL AO Workflow SS MGon 07-03-2023 Magnesium [Mass/Vol] 1.8 mg/dL Normal 1.8-2.4 [facility] ([place]) Comment on above: Performed By: #### L IPID, ADIFF, ANEU, CMP, CBC, GFR #### [address] [address] .Auto Diffon 07-02-2023 Basophil, Absolute 0.0 10 3/mcL Normal 0.0-0.2 [facility] ([place]) Comment on above: Performed By: #### A DIFF, MG, ANEU, GFR, BMP, CBC #### [address] [address] Basophils/100 WBC (Bld) 0.7 % Normal 0.0-2.5 A [facility] ([place]) Comment on above: Performed By: #### A DIFF, MG, ANEU, GFR, BMP, CBC #### [address] [address] Eosinophil, Absolute 0.3 10 3/mcL Normal 0.0-0.4 [facility] ([place]) Comment on above: Performed By: #### A DIFF, MG, ANEU, GFR, BMP, CBC #### [address] [address] Eosinophils/100 WBC (Bld) 5.6 % Normal 0.0-7.0 [facility] ([place]) Comment on above: Performed By: #### A DIFF, MG, ANEU, GFR, BMP, CBC #### [address] [address] Lymphocyte, Absolute 1.8 10 3/mcL Normal 0.8-3.9 [facility] ([place]) Comment on above: Performed By: #### A DIFF, MG, ANEU, GFR, BMP, CBC #### [address] [address] Lymphocytes/100 WBC (Bld) 33.2 % Normal 10.0-50.0 [facility] ([place]) Comment on above: Performed By: #### A DIFF, MG, ANEU, GFR, BMP, CBC #### [address] [address] Monocyte, Absolute 0.4 10 3/mcL Normal 0.2-1.0 [facility] ([place]) Comment on above: Performed By: #### A DIFF, MG, ANEU, GFR, BMP, CBC #### [address] [address] Monocytes/100 WBC (Bld) 7.8 % Normal 1.7-13.0 A [facility] ([place]) Comment on above: Performed By: #### A DIFF, MG, ANEU, GFR, BMP, CBC #### [address] [address] Neutrophils/100 WBC (Bld) 52.7 % Normal 37.0-80.0 [facility] ([place]) Comment on above: Performed By: #### A DIFF, MG, ANEU, GFR, BMP, CBC #### [address] [address] .GFRon 07-02-2023 GFR 85 ml/min/1.73sqm Normal [facility] ([place]) Comment on above: Result Comment: GFR Population mean for , Non- Americans Ages 20-29 = 116 mL/min/1.73 sq.m. Ages 30-39 = 107 mL/min/1.73 sq.m. Ages 40-49 = 99 mL/min/1.73 sq.m. Ages 50-59 = 93 mL/min/1.73 sq.m. Ages 60-69 = 85 mL/min/1.73 sq.m. Ages 70+ = 75 mL/min/1.73 sq.m. Chronic Kidney Disease: Less than 60 mL/min/1.73 square meters End Stage Renal Disease: Less than 15 mL/min/1.73 square meters Performed By: #### L IPID, ADIFF, ANEU, CMP, CBC, GFR #### [address] [id number] GFR Non- 70 ml/min/1.73sqm Normal [facility] ([place]) Comment on above: Result Comment: GFR Population mean for , Non- Americans Ages 20-29 = 116 mL/min/1.73 sq.m. Ages 30-39 = 107 mL/min/1.73 sq.m. Ages 40-49 = 99 mL/min/1.73 sq.m. Ages 50-59 = 93 mL/min/1.73 sq.m. Ages 60-69 = 85 mL/min/1.73 sq.m. Ages 70+ = 75 mL/min/1.73 sq.m. Chronic Kidney Disease: Less than 60 mL/min/1.73 square meters End Stage Renal Disease: Less than 15 mL/min/1.73 square meters Performed By: #### L IPID, ADIFF, ANEU, CMP, CBC, GFR #### [address] [id number] .NEUABSon 07-02-2023 Neutrophil, Absolute 2.9 10 3/mcL Normal 2.9-6.2 formerly [facility] ([place]) Comment on above: Performed By: #### A DIFF, MG, ANEU, GFR, BMP, CBC #### [address] [address] BMPon 07-02-2023 BUN/Creatinine Ratio 11 ratio Normal 7-27 [facility] ([place]) Comment on above: Performed By: #### A DIFF, MG, ANEU, GFR, BMP, CBC #### [address] [address] Calcium [Mass/Vol] 8.5 mg/dL Normal 8.4-10.2 [facility] ([place]) Comment on above: Performed By: #### A DIFF, MG, ANEU, GFR, BMP, CBC #### [address] [address] Chloride [Moles/Vol] 102 mmol/L Normal 98-107 [facility] ([place]) Comment on above: Performed By: #### A DIFF, MG, ANEU, GFR, BMP, CBC #### [address] [address] CO2 [Moles/Vol] 31 mmol/L Normal 23-31 [facility] ([place]) Comment on above: Performed By: #### A DIFF, MG, ANEU, GFR, BMP, CBC #### [address] [address] Creatinine [Mass/Vol] 0.79 mg/dL Normal 0.55-1.02 [facility] ([place]) Comment on above: Performed By: #### A DIFF, MG, ANEU, GFR, BMP, CBC #### [address] [address] Electrolyte Balance 5.0 mEq/L Normal 4.0-15.0 [facility] ([place]) Comment on above: Performed By: #### A DIFF, MG, ANEU, GFR, BMP, CBC #### [place] [address] Glucose [Mass/Vol] 144 mg/dL High 83-110 [facility] ([place]) Comment on above: Performed By: #### A DIFF, MG, ANEU, GFR, BMP, CBC #### [place] [address] Potassium [Moles/Vol] 3.9 mmol/L Normal 3.5-5.1 [facility] ([place]) Comment on above: Performed By: #### A DIFF, MG, ANEU, GFR, BMP, CBC #### [address] [address] Sodium [Moles/Vol] 138 mmol/L Normal 136-145 [facility] ([place]) Comment on above: Performed By: #### A DIFF, MG, ANEU, GFR, BMP, CBC #### [address] [address] Urea nitrogen [Mass/Vol] 9 mg/dL Normal 7-18 [facility] ([place]) Comment on above: Performed By: #### A DIFF, MG, ANEU, GFR, BMP, CBC #### [address] [address] CBCon 07-02-2023 Erythrocyte distribution width (RBC) [Ratio] 14.6 % High 11.5-14.5 [facility] ([place]) Comment on above: Performed By: #### A DIFF, MG, ANEU, GFR, BMP, CBC #### [address] [address] Hematocrit (Bld) [Volume fraction] 35.7 % Low 37.0-47.0 [facility] ([place]) Comment on above: Performed By: #### A DIFF, MG, ANEU, GFR, BMP, CBC #### [place] [id number] Hgb 11.3 G/dL Low 12.0-16.0 [facility] ([place]) Comment on above: Performed By: #### A DIFF, MG, ANEU, GFR, BMP, CBC #### [place] [address] MCH (RBC) [Entitic mass] 28.1 pg Normal 27.0-31.2 [facility] ([place]) Comment on above: Performed By: #### A DIFF, MG, ANEU, GFR, BMP, CBC #### [place] [address] MCHC 31.7 G/dL Low 33.0-37.0 [facility] ([place]) Comment on above: Performed By: #### A DIFF, MG, ANEU, GFR, BMP, CBC #### [address] [address] MCV (RBC) [Entitic vol] 88.6 fL Normal 80.0-94.0 [facility] ([place]) Comment on above: Performed By: #### A DIFF, MG, ANEU, GFR, BMP, CBC #### [address] [address] Platelet 159 10 3/mcL Normal 130-400 [facility] ([place]) Comment on above: Performed By: #### A DIFF, MG, ANEU, GFR, BMP, CBC #### [address] [address] Platelet mean volume (Bld) [Entitic vol] 6.6 fL Low 7.4-10.4 [facility] ([place]) Comment on above: Performed By: #### A DIFF, MG, ANEU, GFR, BMP, CBC #### [place] [id number] [place], [place] [address] RBC 4.03 10 6/mcL Low 4.20-5.40 [facility] ([place]) Comment on above: Performed By: #### A DIFF, MG, ANEU, GFR, BMP, CBC #### [place] [id number] [place], [place] [address] WBC 5.5 10 3/mcL Normal 4.6-10.8 [facility] ([place]) Comment on above: Performed By: #### A DIFF, MG, ANEU, GFR, BMP, CBC #### [place] [id number] [place], [place] [address] LABORATORYOrdered By: SYSTEM SYSTEM on 07-02-2023 Basophil, Absolute 0.0 103/mcL Invalid Interpretation Code 0.0 - 0.2 10^3/mcL AO Workflow SS Basophils/100 WBC (Bld) 0.7 % Invalid Interpretation Code 0.0 - 2.5 % AO Workflow SS Calcium [Mass/Vol] 8.5 mg/dL Invalid Interpretation Code 8.4 - 10.2 mg/dL AO ADM SS Chloride [Moles/Vol] 102 mmol/L Invalid Interpretation Code 98 - 107 mmol/L AO ADM SS CO2 [Moles/Vol] 31 mmol/L Invalid Interpretation Code 23 - 31 mmol/L AO ADM SS Creatinine [Mass/Vol] 0.79 mg/dL Invalid Interpretation Code 0.55 - 1.02 mg/dL AO ADM SS Electrolyte Balance 5.0 mEq/L Invalid Interpretation Code 4.0 - 15.0 mEq/L AO ADM SS Eosinophil, Absolute 0.3 103/mcL Invalid Interpretation Code 0.0 - 0.4 10^3/mcL AO Workflow SS Eosinophils/100 WBC (Bld) 5.6 % Invalid Interpretation Code 0.0 - 7.0 % AO Workflow SS Erythrocyte distribution width (RBC) [Ratio] 14.6 % Invalid Interpretation Code 11.5 - 14.5 % AO Workflow SS GFR/1.73 sq M.predicted among blacks MDRD (S/P/Bld) [Vol rate/Area] 85 ml/min/1.73sqm Invalid Interpretation Code AO Chemistry S Comment on above: Interpretive Data: GFR Population mean for , Non- Americans Ages 20-29 = 116 mL/min/1.73 sq.m. Ages 30-39 = 107 mL/min/1.73 sq.m. Ages 40-49 = 99 mL/min/1.73 sq.m. Ages 50-59 = 93 mL/min/1.73 sq.m. Ages 60-69 = 85 mL/min/1.73 sq.m. Ages 70+ = 75 mL/min/1.73 sq.m. Chronic Kidney Disease: Less than 60 mL/min/1.73 square meters End Stage Renal Disease: Less than 15 mL/min/1.73 square meters GFR/1.73 sq M.predicted among non-blacks MDRD (S/P/Bld) [Vol rate/Area] 70 ml/min/1.73sqm Invalid Interpretation Code AO Chemistry S Comment on above: Interpretive Data: GFR Population mean for , Non- Americans Ages 20-29 = 116 mL/min/1.73 sq.m. Ages 30-39 = 107 mL/min/1.73 sq.m. Ages 40-49 = 99 mL/min/1.73 sq.m. Ages 50-59 = 93 mL/min/1.73 sq.m. Ages 60-69 = 85 mL/min/1.73 sq.m. Ages 70+ = 75 mL/min/1.73 sq.m. Chronic Kidney Disease: Less than 60 mL/min/1.73 square meters End Stage Renal Disease: Less than 15 mL/min/1.73 square meters Glucose [Mass/Vol] 144 mg/dL Invalid Interpretation Code 83 - 110 mg/dL AO ADM SS Hematocrit (Bld) [Volume fraction] 35.7 % Invalid Interpretation Code 37.0 - 47.0 % AO Workflow SS Hemoglobin (Bld) [Mass/Vol] 11.3 G/dL Invalid Interpretation Code 12.0 - 16.0 G/dL AO Workflow SS Lymphocyte, Absolute 1.8 103/mcL Invalid Interpretation Code 0.8 - 3.9 10^3/mcL AO Workflow SS Lymphocytes/100 WBC (Bld) 33.2 % Invalid Interpretation Code 10.0 - 50.0 % AO Workflow SS Magnesium [Mass/Vol] 1.7 mg/dL Invalid Interpretation Code 1.8 - 2.4 mg/dL AO ADM SS MCH (RBC) [Entitic mass] 28.1 pg Invalid Interpretation Code 27.0 - 31.2 pg AO Workflow SS MCHC 31.7 G/dL Invalid Interpretation Code 33.0 - 37.0 G/dL AO Workflow SS MCV (RBC) [Entitic vol] 88.6 fL Invalid Interpretation Code 80.0 - 94.0 fL AO Workflow SS Monocyte, Absolute 0.4 103/mcL Invalid Interpretation Code 0.2 - 1.0 10^3/mcL AO Workflow SS Monocytes/100 WBC (Bld) 7.8 % Invalid Interpretation Code 1.7 - 13.0 % AO Workflow SS Neutrophil, Absolute 2.9 103/mcL Invalid Interpretation Code 2.9 - 6.2 10^3/mcL AO Workflow SS Neutrophils/100 WBC (Bld) 52.7 % Invalid Interpretation Code 37.0 - 80.0 % AO Workflow SS Platelet mean volume (Bld) [Entitic vol] 6.6 fL Invalid Interpretation Code 7.4 - 10.4 fL AO Workflow SS Platelets (Bld) [#/Vol] 159 103/mcL Invalid Interpretation Code 130 - 400 10^3/mcL AO Workflow SS Potassium [Moles/Vol] 3.9 mmol/L Invalid Interpretation Code 3.5 - 5.1 mmol/L AO ADM SS RBC (Bld) [#/Vol] 4.03 106/mcL Invalid Interpretation Code 4.20 - 5.40 10^6/mcL AO Workflow SS Sodium [Moles/Vol] 138 mmol/L Invalid Interpretation Code 136 - 145 mmol/L AO ADM SS Urea nitrogen [Mass/Vol] 9 mg/dL Invalid Interpretation Code 7 - 18 mg/dL AO ADM SS Urea nitrogen/Creatinine [Mass ratio] 11 ratio Invalid Interpretation Code 7 - 27 ratio AO ADM SS WBC (Bld) [#/Vol] 5.5 103/mcL Invalid Interpretation Code 4.6 - 10.8 10^3/mcL AO Workflow SS MGon 07-02-2023 Magnesium [Mass/Vol] 1.7 mg/dL Low 1.8-2.4 [facility] ([place]) Comment on above: Performed By: #### L IPID, ADIFF, ANEU, CMP, CBC, GFR #### [place] [address] .Auto Diffon 07-01-2023 Basophil, Absolute 0.0 10 3/mcL Normal 0.0-0.2 [facility] ([place]) Comment on above: Performed By: #### L IPID, ADIFF, ANEU, CMP, CBC, GFR #### [address] [address] Basophils/100 WBC (Bld) 0.5 % Normal 0.0-2.5 [facility] ([place]) Comment on above: Performed By: #### L IPID, ADIFF, ANEU, CMP, CBC, GFR #### [address] [address] Eosinophil, Absolute 0.4 10 3/mcL Normal 0.0-0.4 [facility] ([place]) Comment on above: Performed By: #### L IPID, ADIFF, ANEU, CMP, CBC, GFR #### [address] [address] Eosinophils/100 WBC (Bld) 5.7 % Normal 0.0-7.0 [facility] ([place]) Comment on above: Performed By: #### L IPID, ADIFF, ANEU, CMP, CBC, GFR #### [address] [address] Lymphocyte, Absolute 1.9 10 3/mcL Normal 0.8-3.9 [facility] ([place]) Comment on above: Performed By: #### L IPID, ADIFF, ANEU, CMP, CBC, GFR #### [address] [address] Lymphocytes/100 WBC (Bld) 28.0 % Normal 10.0-50.0 [facility] ([place]) Comment on above: Performed By: #### L IPID, ADIFF, ANEU, CMP, CBC, GFR #### [address] [address] Monocyte, Absolute 0.5 10 3/mcL Normal 0.2-1.0 [facility] ([place]) Comment on above: Performed By: #### L IPID, ADIFF, ANEU, CMP, CBC, GFR #### [address] [address] Monocytes/100 WBC (Bld) 6.9 % Normal 1.7-13.0 [facility] ([place]) Comment on above: Performed By: #### L IPID, ADIFF, ANEU, CMP, CBC, GFR #### [place] [address] [place], [place] [address] Neutrophils/100 WBC (Bld) 58.9 % Normal 37.0-80.0 [facility] ([place]) Comment on above: Performed By: #### L IPID, ADIFF, ANEU, CMP, CBC, GFR #### [place] [address] [place], [place] [address] .GFRon 07-01-2023 GFR 73 ml/min/1.73sqm Normal [facility] ([place]) Comment on above: Result Comment: GFR Population mean for , Non- Americans Ages 20-29 = 116 mL/min/1.73 sq.m. Ages 30-39 = 107 mL/min/1.73 sq.m. Ages 40-49 = 99 mL/min/1.73 sq.m. Ages 50-59 = 93 mL/min/1.73 sq.m. Ages 60-69 = 85 mL/min/1.73 sq.m. Ages 70+ = 75 mL/min/1.73 sq.m. Chronic Kidney Disease: Less than 60 mL/min/1.73 square meters End Stage Renal Disease: Less than 15 mL/min/1.73 square meters Performed By: #### L IPID, ADIFF, ANEU, CMP, CBC, GFR #### [place] [address] [place], [place] [address] GFR Non- 60 ml/min/1.73sqm Normal [facility] ([place]) Comment on above: Result Comment: GFR Population mean for , Non- Americans Ages 20-29 = 116 mL/min/1.73 sq.m. Ages 30-39 = 107 mL/min/1.73 sq.m. Ages 40-49 = 99 mL/min/1.73 sq.m. Ages 50-59 = 93 mL/min/1.73 sq.m. Ages 60-69 = 85 mL/min/1.73 sq.m. Ages 70+ = 75 mL/min/1.73 sq.m. Chronic Kidney Disease: Less than 60 mL/min/1.73 square meters End Stage Renal Disease: Less than 15 mL/min/1.73 square meters Performed By: #### L IPID, ADIFF, ANEU, CMP, CBC, GFR #### [address] [address] .NEUABSon 07-01-2023 Neutrophil, Absolute 4.1 10 3/mcL Normal 2.9-6.2 [facility] ([place]) Comment on above: Performed By: #### L IPID, ADIFF, ANEU, CMP, CBC, GFR #### [address] [address] BMPon 07-01-2023 BUN/Creatinine Ratio 12 ratio Normal 7-27 [facility] ([place]) Comment on above: Performed By: #### L IPID, ADIFF, ANEU, CMP, CBC, GFR #### [address] [address] Calcium [Mass/Vol] 8.5 mg/dL Normal 8.4-10.2 [facility] ([place]) Comment on above: Performed By: #### L IPID, ADIFF, ANEU, CMP, CBC, GFR #### [address] [address] Chloride [Moles/Vol] 103 mmol/L Normal 98-107 [facility] ([place]) Comment on above: Performed By: #### L IPID, ADIFF, ANEU, CMP, CBC, GFR #### [address] [address] CO2 [Moles/Vol] 32 mmol/L High 23-31 [facility] ([place]) Comment on above: Performed By: #### L IPID, ADIFF, ANEU, CMP, CBC, GFR #### [address] [address] Creatinine [Mass/Vol] 0.90 mg/dL Normal 0.55-1.02 [facility] ([place]) Comment on above: Performed By: #### L IPID, ADIFF, ANEU, CMP, CBC, GFR #### [address] [address] Electrolyte Balance 5.0 mEq/L Normal 4.0-15.0 [facility] ([place]) Comment on above: Performed By: #### L IPID, ADIFF, ANEU, CMP, CBC, GFR #### [address] [address] Glucose [Mass/Vol] 138 mg/dL High 83-110 [facility] ([place]) Comment on above: Performed By: #### L IPID, ADIFF, ANEU, CMP, CBC, GFR #### [address] [address] Potassium [Moles/Vol] 4.0 mmol/L Normal 3.5-5.1 [facility] ([place]) Comment on above: Performed By: #### L IPID, ADIFF, ANEU, CMP, CBC, GFR #### [address] [address] Sodium [Moles/Vol] 140 mmol/L Normal 136-145 [facility] ([place]) Comment on above: Performed By: #### L IPID, ADIFF, ANEU, CMP, CBC, GFR #### [address] [address] Urea nitrogen [Mass/Vol] 11 mg/dL Normal 7-18 [facility] ([place]) Comment on above: Performed By: #### L IPID, ADIFF, ANEU, CMP, CBC, GFR #### [address] [address] CBCon 07-01-2023 Erythrocyte distribution width (RBC) [Ratio] 14.6 % High 11.5-14.5 [facility] ([place]) Comment on above: Performed By: #### L IPID, ADIFF, ANEU, CMP, CBC, GFR #### [address] [address] Hematocrit (Bld) [Volume fraction] 36.2 % Low 37.0-47.0 [facility] ([place]) Comment on above: Performed By: #### L IPID, ADIFF, ANEU, CMP, CBC, GFR #### [address] [address] Hgb 11.6 G/dL Low 12.0-16.0 [facility] ([place]) Comment on above: Performed By: #### L IPID, ADIFF, ANEU, CMP, CBC, GFR #### [place] [address] MCH (RBC) [Entitic mass] 28.1 pg Normal 27.0-31.2 [facility] ([place]) Comment on above: Performed By: #### L IPID, ADIFF, ANEU, CMP, CBC, GFR #### [place] [address] MCHC 32.0 G/dL Low 33.0-37.0 [facility] ([place]) Comment on above: Performed By: #### L IPID, ADIFF, ANEU, CMP, CBC, GFR #### [place] [address] MCV (RBC) [Entitic vol] 87.8 fL Normal 80.0-94.0 [facility] ([place]) Comment on above: Performed By: #### L IPID, ADIFF, ANEU, CMP, CBC, GFR #### [place] [id number] Platelet 170 10 3/mcL Normal 130-400 [facility] ([place]) Comment on above: Performed By: #### L IPID, ADIFF, ANEU, CMP, CBC, GFR #### [address] [address] Platelet mean volume (Bld) [Entitic vol] 6.4 fL Low 7.4-10.4 [facility] ([place]) Comment on above: Performed By: #### L IPID, ADIFF, ANEU, CMP, CBC, GFR #### [place] [address] RBC 4.12 10 6/mcL Low 4.20-5.40 [facility] ([place]) Comment on above: Performed By: #### L IPID, ADIFF, ANEU, CMP, CBC, GFR #### [address] [address] WBC 6.9 10 3/mcL Normal 4.6-10.8 [facility] ([place]) Comment on above: Performed By: #### L IPID, ADIFF, ANEU, CMP, CBC, GFR #### [address] [address] MGon 07-01-2023 Magnesium [Mass/Vol] 1.5 mg/dL Low 1.8-2.4 [facility] ([place]) Comment on above: Performed By: #### L IPID, ADIFF, ANEU, CMP, CBC, GFR #### [address] [address] .Auto Diffon 06-30-2023 Basophil, Absolute 0.0 10 3/mcL Normal 0.0-0.2 [facility]) Comment on above: Performed By: #### L IPID, ADIFF, ANEU, CMP, CBC, GFR #### [address] [address] Basophils/100 WBC (Bld) 0.4 % Normal 0.0-2.5 [facility] ([place]) Comment on above: Performed By: #### L IPID, ADIFF, ANEU, CMP, CBC, GFR #### [address] [address] Eosinophil, Absolute 0.5 10 3/mcL High 0.0-0.4 [facility] ([place]) Comment on above: Performed By: #### L IPID, ADIFF, ANEU, CMP, CBC, GFR #### [address] [address] Eosinophils/100 WBC (Bld) 4.7 % Normal 0.0-7.0 [facility] ([place]) Comment on above: Performed By: #### L IPID, ADIFF, ANEU, CMP, CBC, GFR #### [address] [place] [address] Lymphocyte, Absolute 1.7 10 3/mcL Normal 0.8-3.9 [facility] ([place]) Comment on above: Performed By: #### L IPID, ADIFF, ANEU, CMP, CBC, GFR #### [address] [address] Lymphocytes/100 WBC (Bld) 17.7 % Normal 10.0-50.0 [facility] ([place]) Comment on above: Performed By: #### L IPID, ADIFF, ANEU, CMP, CBC, GFR #### [address] [address] Monocyte, Absolute 0.5 10 3/mcL Normal 0.2-1.0 [facility] ([place]) Comment on above: Performed By: #### L IPID, ADIFF, ANEU, CMP, CBC, GFR #### [address] [address] Monocytes/100 WBC (Bld) 5.4 % Normal 1.7-13.0 [facility] ([place]) Comment on above: Performed By: #### L IPID, ADIFF, ANEU, CMP, CBC, GFR #### [address] [address] Neutrophils/100 WBC (Bld) 71.8 % Normal 37.0-80.0 [facility] ([place]) Comment on above: Performed By: #### L IPID, ADIFF, ANEU, CMP, CBC, GFR #### [address] [address] .GFRon 06-30-2023 GFR 75 ml/min/1.73sqm Normal [facility] ([place]) Comment on above: Result Comment: GFR Population mean for , Non- Americans Ages 20-29 = 116 mL/min/1.73 sq.m. Ages 30-39 = 107 mL/min/1.73 sq.m. Ages 40-49 = 99 mL/min/1.73 sq.m. Ages 50-59 = 93 mL/min/1.73 sq.m. Ages 60-69 = 85 mL/min/1.73 sq.m. Ages 70+ = 75 mL/min/1.73 sq.m. Chronic Kidney Disease: Less than 60 mL/min/1.73 square meters End Stage Renal Disease: Less than 15 mL/min/1.73 square meters Performed By: #### L IPID, ADIFF, ANEU, CMP, CBC, GFR #### [address] [address] GFR Non- 62 ml/min/1.73sqm Normal [facility] ([place]) Comment on above: Result Comment: GFR Population mean for , Non- Americans Ages 20-29 = 116 mL/min/1.73 sq.m. Ages 30-39 = 107 mL/min/1.73 sq.m. Ages 40-49 = 99 mL/min/1.73 sq.m. Ages 50-59 = 93 mL/min/1.73 sq.m. Ages 60-69 = 85 mL/min/1.73 sq.m. Ages 70+ = 75 mL/min/1.73 sq.m. Chronic Kidney Disease: Less than 60 mL/min/1.73 square meters End Stage Renal Disease: Less than 15 mL/min/1.73 square meters Performed By: #### L IPID, ADIFF, ANEU, CMP, CBC, GFR #### [address] [address] .MDWon 06-30-2023 Monocyte Distribution Width 17.82 Normal 0.00-20.00 [facility] ([place]) Comment on above: Result Comment: For ED adult patients suspected of sepsis, MDW<=20.0 does not rule out sepsis or risk of sepsis Performed By: #### L IPID, ADIFF, ANEU, CMP, CBC, GFR #### [address] [address] .NEUABSon 06-30-2023 Neutrophil, Absolute 7.1 10 3/mcL High 2.9-6.2 [facility] ([place]) Comment on above: Performed By: #### L IPID, ADIFF, ANEU, CMP, CBC, GFR #### [address] [address] BMPon 06-30-2023 BUN/Creatinine Ratio 10 ratio Normal 7-27 [facility] ([place]) Comment on above: Performed By: #### L IPID, ADIFF, ANEU, CMP, CBC, GFR #### [address] [address] Calcium [Mass/Vol] 9.0 mg/dL Normal 8.4-10.2 [facility] ([place]) Comment on above: Performed By: #### L IPID, ADIFF, ANEU, CMP, CBC, GFR #### [address] [address] Chloride [Moles/Vol] 100 mmol/L Normal 98-107 [facility] ([place]) Comment on above: Performed By: #### L IPID, ADIFF, ANEU, CMP, CBC, GFR #### [place] [address] CO2 [Moles/Vol] 33 mmol/L High 23-31 [facility] ([place]) Comment on above: Performed By: #### L IPID, ADIFF, ANEU, CMP, CBC, GFR #### [place] [address] Creatinine [Mass/Vol] 0.88 mg/dL Normal 0.55-1.02 [facility] ([place]) Comment on above: Performed By: #### L IPID, ADIFF, ANEU, CMP, CBC, GFR #### [address] [address] Electrolyte Balance 6.0 mEq/L Normal 4.0-15.0 [facility] ([place]) Comment on above: Performed By: #### L IPID, ADIFF, ANEU, CMP, CBC, GFR #### [place] [address] Glucose [Mass/Vol] 147 mg/dL High 83-110 [facility] ([place]) Comment on above: Performed By: #### L IPID, ADIFF, ANEU, CMP, CBC, GFR #### [address] [address] Potassium [Moles/Vol] 3.8 mmol/L Normal 3.5-5.1 [facility] ([place]) Comment on above: Performed By: #### L IPID, ADIFF, ANEU, CMP, CBC, GFR #### [address] [address] Sodium [Moles/Vol] 139 mmol/L Normal 136-145 [facility] ([place]) Comment on above: Performed By: #### L IPID, ADIFF, ANEU, CMP, CBC, GFR #### [address] [address] Urea nitrogen [Mass/Vol] 9 mg/dL Normal 7-18 [facility] ([place]) Comment on above: Performed By: #### L IPID, ADIFF, ANEU, CMP, CBC, GFR #### [address] [address] CBCon 06-30-2023 Erythrocyte distribution width (RBC) [Ratio] 14.6 % High 11.5-14.5 [facility] ([place]) Comment on above: Performed By: #### L IPID, ADIFF, ANEU, CMP, CBC, GFR #### [address] [address] Hematocrit (Bld) [Volume fraction] 42.0 % Normal 37.0-47.0 [facility] ([place]) Comment on above: Performed By: #### L IPID, ADIFF, ANEU, CMP, CBC, GFR #### [address] [address] Hgb 13.4 G/dL Normal 12.0-16.0 [facility] ([place]) Comment on above: Performed By: #### L IPID, ADIFF, ANEU, CMP, CBC, GFR #### [address] [address] MCH (RBC) [Entitic mass] 28.4 pg Normal 27.0-31.2 [facility] ([place]) Comment on above: Performed By: #### L IPID, ADIFF, ANEU, CMP, CBC, GFR #### [address] [address] MCHC 32.0 G/dL Low 33.0-37.0 [facility] ([place]) Comment on above: Performed By: #### L IPID, ADIFF, ANEU, CMP, CBC, GFR #### [address] [address] MCV (RBC) [Entitic vol] 88.5 fL Normal 80.0-94.0 [facility] ([place]) Comment on above: Performed By: #### L IPID, ADIFF, ANEU, CMP, CBC, GFR #### [address] [address] Platelet 188 10 3/mcL Normal 130-400 [facility] ([place]) Comment on above: Performed By: #### L IPID, ADIFF, ANEU, CMP, CBC, GFR #### [place] [address] Platelet mean volume (Bld) [Entitic vol] 6.2 fL Low 7.4-10.4 [facility] ([place]) Comment on above: Performed By: #### L IPID, ADIFF, ANEU, CMP, CBC, GFR #### [address] [address] RBC 4.74 10 6/mcL Normal 4.20-5.40 [facility] ([place]) Comment on above: Performed By: #### L IPID, ADIFF, ANEU, CMP, CBC, GFR #### [address] [address] WBC 9.9 10 3/mcL Normal 4.6-10.8 [facility] ([place]) Comment on above: Performed By: #### L IPID, ADIFF, ANEU, CMP, CBC, GFR #### [place] [id number] LABORATORYOrdered By: SYSTEM SYSTEM on 06-30-2023 Monocyte distribution width Auto (Bld) [Entitic vol] 17.82 1 Invalid Interpretation Code 0.00 - 20.00 AO Workflow SS Comment on above: Result Comment: For ED adult patients suspected of sepsis, MDW<=20.0 does not rule out sepsis or risk of sepsis [facility] 06-30-2023 U Creatinine 90.7 mg/dL Normal 28.0-117.0 [facility] ([place]) Comment on above: Performed By: #### L IPID, ADIFF, ANEU, CMP, CBC, GFR #### [place] [id number] [place], [place] [address] U Microalb 1927 mcg/dL Normal [facility] ([place]) Comment on above: Performed By: #### L IPID, ADIFF, ANEU, CMP, CBC, GFR #### [place] [id number] [place], [place] [address] U Ratio Alb/Cre 21 mcg/mg Normal 0-30 [facility] ([place]) Comment on above: Performed By: #### L IPID, ADIFF, ANEU, CMP, CBC, GFR #### [place] [id number] [place], [place] [address] XR ANKLE AND FOOT [address] [facility] 06-30-2023 XR ANKLE AND FOOT 6 VIEWS LEFT ORIGINAL EXAMINATION: 3 x-ray views of the [...] ligamentous injury is suspected Interpreted by: Nadir Martel MD Preliminary Report By: Nadir Martel MD Electronically signed By Nadir Martel MD Dictated Date: 06/30/2023 3:55:41 PM Prelim Date: 06/30/2023 4:00:26 PM Sign Date: 06/30/2023 4:00:26 PM Ordering Provider: VICENTEALFONZO [facility] ([place]) XR KNEE 1 OR 2 VIEWS LEFTon 06-30-2023 XR KNEE 1 OR 2 VIEWS LEFT ORIGINAL EXAMINATION: TWO XRAY VIEWS OF THE [...] to the prior study Interpreted by: Nadir Martel MD Preliminary Report By: Nadir Martel MD Electronically signed By Nadir Martel MD Dictated Date: 06/30/2023 4:00:34 PM Prelim Date: 06/30/2023 4:01:46 PM Sign Date: 06/30/2023 4:01:46 PM Ordering Provider: VICENTE [facility] ([place]) .Auto Diffon 02-05-2023 Basophil, Absolute 0.1 10 3/mcL Normal 0.0-0.2 [facility]) Comment on above: Performed By: #### L IPID, ADIFF, ANEU, CMP, CBC, GFR #### [address] [address] Basophils/100 WBC (Bld) 0.7 % Normal 0.0-2.5 A [facility] ([place]) Comment on above: Performed By: #### L IPID, ADIFF, ANEU, CMP, CBC, GFR #### [id number] [place], [place] [address] Eosinophil, Absolute 0.7 10 3/mcL High 0.0-0.4 [facility] ([place]) Comment on above: Performed By: #### L IPID, ADIFF, ANEU, CMP, CBC, GFR #### [address] [id number] Eosinophils/100 WBC (Bld) 8.8 % High 0.0-7.0 [facility] ([place]) Comment on above: Performed By: #### L IPID, ADIFF, ANEU, CMP, CBC, GFR #### [address] [address] Lymphocyte, Absolute 2.8 10 3/mcL Normal 0.8-3.9 formerly [facility] ([place]) Comment on above: Performed By: #### L IPID, ADIFF, ANEU, CMP, CBC, GFR #### [address] [address] Lymphocytes/100 WBC (Bld) 34.0 % Normal 10.0-50.0 [facility] ([place]) Comment on above: Performed By: #### L IPID, ADIFF, ANEU, CMP, CBC, GFR #### [address] [address] Monocyte, Absolute 0.6 10 3/mcL Normal 0.2-1.0 [facility] ([place]) Comment on above: Performed By: #### L IPID, ADIFF, ANEU, CMP, CBC, GFR #### [address] [address] Monocytes/100 WBC (Bld) 7.3 % Normal 1.7-13.0 [facility] ([place]) Comment on above: Performed By: #### L IPID, ADIFF, ANEU, CMP, CBC, GFR #### [address] [address] Neutrophils/100 WBC (Bld) 49.2 % Normal 37.0-80.0 [facility] ([place]) Comment on above: Performed By: #### L IPID, ADIFF, ANEU, CMP, CBC, GFR #### [address] [address] .GFRon 02-05-2023 GFR Non- 63 ml/min/1.73sqm Normal [facility] ([place]) Comment on above: Result Comment: GFR Population mean for , Non- Americans Ages 20-29 = 116 mL/min/1.73 sq.m. Ages 30-39 = 107 mL/min/1.73 sq.m. Ages 40-49 = 99 mL/min/1.73 sq.m. Ages 50-59 = 93 mL/min/1.73 sq.m. Ages 60-69 = 85 mL/min/1.73 sq.m. Ages 70+ = 75 mL/min/1.73 sq.m. Chronic Kidney Disease: Less than 60 mL/min/1.73 square meters End Stage Renal Disease: Less than 15 mL/min/1.73 square meters Performed By: #### L IPID, ADIFF, ANEU, CMP, CBC, GFR #### [address] [address] GFR 76 ml/min/1.73sqm Normal [facility] ([place]) Comment on above: Result Comment: GFR Population mean for , Non- Americans Ages 20-29 = 116 mL/min/1.73 sq.m. Ages 30-39 = 107 mL/min/1.73 sq.m. Ages 40-49 = 99 mL/min/1.73 sq.m. Ages 50-59 = 93 mL/min/1.73 sq.m. Ages 60-69 = 85 mL/min/1.73 sq.m. Ages 70+ = 75 mL/min/1.73 sq.m. Chronic Kidney Disease: Less than 60 mL/min/1.73 square meters End Stage Renal Disease: Less than 15 mL/min/1.73 square meters Performed By: #### L IPID, ADIFF, ANEU, CMP, CBC, GFR #### [address] [address] .NEUABSon 02-05-2023 Neutrophil, Absolute 4.1 10 3/mcL Normal 2.9-6.2 [facility] ([place]) Comment on above: Performed By: #### L IPID, ADIFF, ANEU, CMP, CBC, GFR #### [address] [address] CBCon 02-05-2023 Erythrocyte distribution width (RBC) [Ratio] 14.1 % Normal 11.5-14.5 [facility] ([place]) Comment on above: Performed By: #### L IPID, ADIFF, ANEU, CMP, CBC, GFR #### [place] [address] Hematocrit (Bld) [Volume fraction] 45.2 % Normal 37.0-47.0 [facility] ([place]) Comment on above: Performed By: #### L IPID, ADIFF, ANEU, CMP, CBC, GFR #### [place] [address] Hgb 14.4 G/dL Normal 12.0-16.0 [facility] ([place]) Comment on above: Performed By: #### L IPID, ADIFF, ANEU, CMP, CBC, GFR #### [place] [address] MCH (RBC) [Entitic mass] 26.9 pg Low 27.0-31.2 [facility] ([place]) Comment on above: Performed By: #### L IPID, ADIFF, ANEU, CMP, CBC, GFR #### [place] [address] MCHC 31.8 G/dL Low 33.0-37.0 [facility] ([place]) Comment on above: Performed By: #### L IPID, ADIFF, ANEU, CMP, CBC, GFR #### [place] [address] MCV (RBC) [Entitic vol] 84.7 fL Normal 80.0-94.0 A [facility] ([place]) Comment on above: Performed By: #### L IPID, ADIFF, ANEU, CMP, CBC, GFR #### [place] [address] Platelet 237 10 3/mcL Normal 130-400 [facility] ([place]) Comment on above: Performed By: #### L IPID, ADIFF, ANEU, CMP, CBC, GFR #### [place] [address] Platelet mean volume (Bld) [Entitic vol] 6.5 fL Low 7.4-10.4 [facility] ([place]) Comment on above: Performed By: #### L IPID, ADIFF, ANEU, CMP, CBC, GFR #### [address] [address] RBC 5.34 10 6/mcL Normal 4.20-5.40 [facility] ([place]) Comment on above: Performed By: #### L IPID, ADIFF, ANEU, CMP, CBC, GFR #### [address] [address] WBC 8.3 10 3/mcL Normal 4.6-10.8 [facility] ([place]) Comment on above: Performed By: #### L IPID, ADIFF, ANEU, CMP, CBC, GFR #### [address] [address] CMPon 02-05-2023 Albumin Level 3.9 G/dL Normal 3.4-4.8 [facility] ([place]) Comment on above: Performed By: #### L IPID, ADIFF, ANEU, CMP, CBC, GFR #### [place] [address] Albumin/Globulin [Mass ratio] 1.3 {ratio} Normal 1.1-2.5 [facility] ([place]) Comment on above: Performed By: #### L IPID, ADIFF, ANEU, CMP, CBC, GFR #### [address] [address] ALP [Catalytic activity/Vol] 65 U/L Normal 40-135 [facility] ([place]) Comment on above: Performed By: #### L IPID, ADIFF, ANEU, CMP, CBC, GFR #### [address] [address] ALT [Catalytic activity/Vol] 20 U/L Normal 14-59 [facility] ([place]) Comment on above: Performed By: #### L IPID, ADIFF, ANEU, CMP, CBC, GFR #### [address] [address] AST [Catalytic activity/Vol] 19 U/L Normal 10-40 [facility] ([place]) Comment on above: Performed By: #### L IPID, ADIFF, ANEU, CMP, CBC, GFR #### [address] [address] Bili Total 0.7 mg/dL Normal 0.2-1.0 [facility] ([place]) Comment on above: Result Comment: Use of this assay is not recommended for patients undergoing treatment with eltrombopag due to the potential for falsely elevated results. Performed By: #### L IPID, ADIFF, ANEU, CMP, CBC, GFR #### [address] [address] BUN/Creatinine Ratio 14 ratio Normal 7-27 [facility] ([place]) Comment on above: Performed By: #### L IPID, ADIFF, ANEU, CMP, CBC, GFR #### [address] [address] Calcium [Mass/Vol] 10.1 mg/dL Normal 8.4-10.2 [facility] ([place]) Comment on above: Performed By: #### L IPID, ADIFF, ANEU, CMP, CBC, GFR #### [address] [address] Chloride [Moles/Vol] 100 mmol/L Normal 98-107 [facility] ([place]) Comment on above: Performed By: #### L IPID, ADIFF, ANEU, CMP, CBC, GFR #### [address] [address] CO2 [Moles/Vol] 33 mmol/L High 23-31 [facility] ([place]) Comment on above: Performed By: #### L IPID, ADIFF, ANEU, CMP, CBC, GFR #### [address] [address] Creatinine [Mass/Vol] 0.87 mg/dL Normal 0.55-1.02 [facility] ([place]) Comment on above: Performed By: #### L IPID, ADIFF, ANEU, CMP, CBC, GFR #### [address] [address] Electrolyte Balance 8.0 mEq/L Normal 4.0-15.0 [facility] ([place]) Comment on above: Performed By: #### L IPID, ADIFF, ANEU, CMP, CBC, GFR #### [address] [address] Globulin 3.0 G/dL Normal [facility] ([place]) Comment on above: Performed By: #### L IPID, ADIFF, ANEU, CMP, CBC, GFR #### [address] [address] Glucose [Mass/Vol] 127 mg/dL High 83-110 [facility] ([place]) Comment on above: Performed By: #### L IPID, ADIFF, ANEU, CMP, CBC, GFR #### [address] [address] Potassium [Moles/Vol] 4.7 mmol/L Normal 3.5-5.1 [facility] ([place]) Comment on above: Performed By: #### L IPID, ADIFF, ANEU, CMP, CBC, GFR #### [address] [address] Sodium [Moles/Vol] 141 mmol/L Normal 136-145 [facility] ([place]) Comment on above: Performed By: #### L IPID, ADIFF, ANEU, CMP, CBC, GFR #### [address] [address] Total Protein 6.9 G/dL Normal 6.4-8.2 [facility] ([place]) Comment on above: Performed By: #### L IPID, ADIFF, ANEU, CMP, CBC, GFR #### [address] [address] Urea nitrogen [Mass/Vol] 12 mg/dL Normal 7-18 [facility] ([place]) Comment on above: Performed By: #### L IPID, ADIFF, ANEU, CMP, CBC, GFR #### [place] [id number] [place], [place] [address] LABORATORYOrdered By: SYSTEM SYSTEM on 02-05-2023 Albumin BCP dye [Mass/Vol] 3.9 G/dL Invalid Interpretation Code 3.4 - 4.8 G/dL AO ADM SS Albumin/Globulin [Mass ratio] 1.3 {ratio} Invalid Interpretation Code 1.1 - 2.5 ratio AO ADM SS ALP [Catalytic activity/Vol] 65 U/L Invalid Interpretation Code 40 - 135 U/L AO ADM SS ALT With P-5'-P [Catalytic activity/Vol] 20 U/L Invalid Interpretation Code 14 - 59 U/L AO ADM SS AST With P-5'-P [Catalytic activity/Vol] 19 U/L Invalid Interpretation Code 10 - 40 U/L AO ADM SS Bilirubin [Mass/Vol] 0.7 mg/dL Invalid Interpretation Code 0.2 - 1.0 mg/dL AO ADM SS Calcium [Mass/Vol] 10.1 mg/dL Invalid Interpretation Code 8.4 - 10.2 mg/dL AO ADM SS Chloride [Moles/Vol] 100 mmol/L Invalid Interpretation Code 98 - 107 mmol/L AO ADM SS CO2 [Moles/Vol] 33 mmol/L Invalid Interpretation Code 23 - 31 mmol/L AO ADM SS Creatinine [Mass/Vol] 0.87 mg/dL Invalid Interpretation Code 0.55 - 1.02 mg/dL AO ADM SS Electrolyte Balance 8.0 mEq/L Invalid Interpretation Code 4.0 - 15.0 mEq/L AO ADM SS GFR/1.73 sq M.predicted among blacks MDRD (S/P/Bld) [Vol rate/Area] 76 ml/min/1.73sqm Invalid Interpretation Code AO Chemistry S GFR/1.73 sq M.predicted among non-blacks MDRD (S/P/Bld) [Vol rate/Area] 63 ml/min/1.73sqm Invalid Interpretation Code AO Chemistry S Globulin 3.0 G/dL Invalid Interpretation Code AO ADM SS Glucose [Mass/Vol] 127 mg/dL Invalid Interpretation Code 83 - 110 mg/dL AO ADM SS Potassium [Moles/Vol] 4.7 mmol/L Invalid Interpretation Code 3.5 - 5.1 mmol/L AO ADM SS Protein [Mass/Vol] 6.9 G/dL Invalid Interpretation Code 6.4 - 8.2 G/dL AO ADM SS Sodium [Moles/Vol] 141 mmol/L Invalid Interpretation Code 136 - 145 mmol/L AO ADM SS Urea nitrogen [Mass/Vol] 12 mg/dL Invalid Interpretation Code 7 - 18 mg/dL AO ADM SS Urea nitrogen/Creatinine [Mass ratio] 14 ratio Invalid Interpretation Code 7 - 27 ratio AO ADM SS LABORATORYOrdered By: Sammie Hernandez on 02-05-2023 Basophil, Absolute 0.1 103/mcL Invalid Interpretation Code 0.0 - 0.2 10^3/mcL AO Workflow SS Basophils/100 WBC (Bld) 0.7 % Invalid Interpretation Code 0.0 - 2.5 % AO Workflow SS Eosinophil, Absolute 0.7 103/mcL Invalid Interpretation Code 0.0 - 0.4 10^3/mcL AO Workflow SS Eosinophils/100 WBC (Bld) 8.8 % Invalid Interpretation Code 0.0 - 7.0 % AO Workflow SS Erythrocyte distribution width (RBC) [Ratio] 14.1 % Invalid Interpretation Code 11.5 - 14.5 % AO Workflow SS Hematocrit (Bld) [Volume fraction] 45.2 % Invalid Interpretation Code 37.0 - 47.0 % AO Workflow SS Hemoglobin (Bld) [Mass/Vol] 14.4 G/dL Invalid Interpretation Code 12.0 - 16.0 G/dL AO Workflow SS Lymphocyte, Absolute 2.8 103/mcL Invalid Interpretation Code 0.8 - 3.9 10^3/mcL AO Workflow SS Lymphocytes/100 WBC (Bld) 34.0 % Invalid Interpretation Code 10.0 - 50.0 % AO Workflow SS MCH (RBC) [Entitic mass] 26.9 pg Invalid Interpretation Code 27.0 - 31.2 pg AO Workflow SS MCHC 31.8 G/dL Invalid Interpretation Code 33.0 - 37.0 G/dL AO Workflow SS MCV (RBC) [Entitic vol] 84.7 fL Invalid Interpretation Code 80.0 - 94.0 fL AO Workflow SS Monocyte, Absolute 0.6 103/mcL Invalid Interpretation Code 0.2 - 1.0 10^3/mcL AO Workflow SS Monocytes/100 WBC (Bld) 7.3 % Invalid Interpretation Code 1.7 - 13.0 % AO Workflow SS Neutrophil, Absolute 4.1 103/mcL Invalid Interpretation Code 2.9 - 6.2 10^3/mcL AO Workflow SS Neutrophils/100 WBC (Bld) 49.2 % Invalid Interpretation Code 37.0 - 80.0 % AO Workflow SS Platelet mean volume (Bld) [Entitic vol] 6.5 fL Invalid Interpretation Code 7.4 - 10.4 fL AO Workflow SS Platelets (Bld) [#/Vol] 237 103/mcL Invalid Interpretation Code 130 - 400 10^3/mcL AO Workflow SS RBC (Bld) [#/Vol] 5.34 106/mcL Invalid Interpretation Code 4.20 - 5.40 10^6/mcL AO Workflow SS WBC (Bld) [#/Vol] 8.3 103/mcL Invalid Interpretation Code 4.6 - 10.8 10^3/mcL AO Workflow SS LABORATORYOrdered By: Emelia Byrnes on 02-05-2023 Cholesterol [Mass/Vol] 147 mg/dL Invalid Interpretation Code 0 - 200 mg/dL AO ADM SS Cholesterol in HDL [Mass/Vol] 59 mg/dL Invalid Interpretation Code 40 - 60 mg/dL AO ADM SS Cholesterol in LDL [Mass/Vol] 54 mg/dL Invalid Interpretation Code 0 - 130 mg/dL AO ADM SS Triglyceride [Mass/Vol] 172 mg/dL Invalid Interpretation Code 0 - 150 mg/dL AO ADM SS LIPIDon 02-05-2023 Cholesterol [Mass/Vol] 147 mg/dL Normal 0-200 [facility] ([place]) Comment on above: Result Comment: Chol esterol Reference Interval: Less than 200 Desirable 200-239 Borderline high risk 240 and above High risk Performed By: #### L IPID, ADIFF, ANEU, CMP, CBC, GFR #### [place] [id number] [place], [place] [address] Cholesterol in HDL [Mass/Vol] 59 mg/dL Normal 40-60 [facility] ([place]) Comment on above: Performed By: #### L IPID, ADIFF, ANEU, CMP, CBC, GFR #### [facility] [address] [place], [place] [address] Cholesterol in LDL [Mass/Vol] 54 mg/dL Normal 0-130 [facility] ([place]) Comment on above: Performed By: #### L IPID, ADIFF, ANEU, CMP, CBC, GFR #### [facility] [address] [place], [place] [address] Triglyceride [Mass/Vol] 172 mg/dL High 0-150 [facility] ([place]) Comment on above: Result Comment: Trig lyceride Reference Interval: Less than 150 Normal 150-199 Borderline high risk 200-499 High risk 500 or higher Very high risk Performed By: #### L IPID, ADIFF, ANEU, CMP, CBC, GFR #### [place] [address] LABORATORYOrdered By: Karli Benites on 01-29-2022 Albumin BCP dye [Mass/Vol] 3.5 G/dL Invalid Interpretation Code 3.4 - 4.8 G/dL AO ADM SS Albumin/Globulin [Mass ratio] 1.1 {ratio} Invalid Interpretation Code 1.1 - 2.5 ratio AO ADM SS ALP [Catalytic activity/Vol] 60 U/L Invalid Interpretation Code 40 - 135 U/L AO ADM SS ALT With P-5'-P [Catalytic activity/Vol] 17 U/L Invalid Interpretation Code 14 - 59 U/L AO ADM SS AST With P-5'-P [Catalytic activity/Vol] 13 U/L Invalid Interpretation Code 10 - 40 U/L AO ADM SS Bilirubin [Mass/Vol] 0.4 mg/dL Invalid Interpretation Code 0.2 - 1.0 mg/dL AO ADM SS Calcium [Mass/Vol] 9.7 mg/dL Invalid Interpretation Code 8.4 - 10.2 mg/dL AO ADM SS Chloride [Moles/Vol] 103 mmol/L Invalid Interpretation Code 98 - 107 mmol/L AO ADM SS Cholesterol [Mass/Vol] 159 mg/dL Invalid Interpretation Code 0 - 200 mg/dL AO ADM SS Cholesterol in HDL [Mass/Vol] 68 mg/dL Invalid Interpretation Code 40 - 60 mg/dL AO ADM SS Cholesterol in LDL [Mass/Vol] 62 mg/dL Invalid Interpretation Code 0 - 130 mg/dL AO ADM SS CO2 [Moles/Vol] 34 mmol/L Invalid Interpretation Code 23 - 31 mmol/L AO ADM SS Creatinine [Mass/Vol] 0.75 mg/dL Invalid Interpretation Code 0.55 - 1.02 mg/dL AO ADM SS Electrolyte Balance 5.0 mEq/L Invalid Interpretation Code 4.0 - 15.0 mEq/L AO ADM SS Globulin 3.3 G/dL Invalid Interpretation Code AO ADM SS Glucose [Mass/Vol] 101 mg/dL Invalid Interpretation Code 83 - 110 mg/dL AO ADM SS Potassium [Moles/Vol] 4.8 mmol/L Invalid Interpretation Code 3.5 - 5.1 mmol/L AO ADM SS Protein [Mass/Vol] 6.8 G/dL Invalid Interpretation Code 6.4 - 8.2 G/dL AO ADM SS Sodium [Moles/Vol] 142 mmol/L Invalid Interpretation Code 136 - 145 mmol/L AO ADM SS Triglyceride [Mass/Vol] 147 mg/dL Invalid Interpretation Code 0 - 150 mg/dL AO ADM SS TSH Qn 1.92 m[IU]/L Invalid Interpretation Code 0.36 - 3.74 mcIU/mL AO ADM SS Urea nitrogen [Mass/Vol] 13 mg/dL Invalid Interpretation Code 7 - 18 mg/dL AO ADM SS Urea nitrogen/Creatinine [Mass ratio] 17 ratio Invalid Interpretation Code 7 - 27 ratio AO ADM SS Vit. D 25-Hydroxy 28.8 ng/mL Invalid Interpretation Code AO ADM SS LABORATORYOrdered By: Kalyan Gutierrez on 01-29-2022 Basophil, Absolute 0.00 103/mcL Invalid Interpretation Code 0.00 - 0.19 10^3/mcL AO Auto Heme SS Basophils/100 WBC (Bld) 0.4 % Invalid Interpretation Code 0.0 - 2.5 % AO Auto Heme SS Eosinophil, Absolute 0.30 103/mcL Invalid Interpretation Code 0.00 - 0.40 10^3/mcL AO Auto Heme SS Eosinophils/100 WBC (Bld) 3.1 % Invalid Interpretation Code 0.0 - 7.0 % AO Auto Heme SS Erythrocyte distribution width (RBC) [Ratio] 14.2 % Invalid Interpretation Code 11.5 - 14.5 % AO Auto Heme SS Hematocrit (Bld) [Volume fraction] 43.7 % Invalid Interpretation Code 37.0 - 47.0 % AO Auto Heme SS Hemoglobin (Bld) [Mass/Vol] 13.9 G/dL Invalid Interpretation Code 12.0 - 16.0 G/dL AO Auto Heme SS Lymphocyte, Absolute 2.50 103/mcL Invalid Interpretation Code 0.77 - 3.85 10^3/mcL AO Auto Heme SS Lymphocytes/100 WBC (Bld) 31.3 % Invalid Interpretation Code 10.0 - 50.0 % AO Auto Heme SS MCH (RBC) [Entitic mass] 26.6 pg Invalid Interpretation Code 27.0 - 31.2 pg AO Auto Heme SS MCHC (RBC) [Mass/Vol] 31.8 G/dL Invalid Interpretation Code 33.0 - 37.0 G/dL AO Auto Heme SS MCV (RBC) [Entitic vol] 83.8 fL Invalid Interpretation Code 80.0 - 94.0 fL AO Auto Heme SS Monocyte, Absolute 0.50 103/mcL Invalid Interpretation Code 0.15 - 1.00 10^3/mcL AO Auto Heme SS Monocytes/100 WBC (Bld) 6.0 % Invalid Interpretation Code 1.7 - 13.0 % AO Auto Heme SS Neutrophil, Absolute 4.80 103/mcL Invalid Interpretation Code 2.85 - 6.16 10^3/mcL AO Auto Heme SS Neutrophils/100 WBC (Bld) 59.2 % Invalid Interpretation Code 37.0 - 80.0 % AO Auto Heme SS Platelet mean volume (Bld) [Entitic vol] 7.1 fL Invalid Interpretation Code 7.4 - 10.4 fL AO Auto Heme SS Platelets (Bld) [#/Vol] 241 103/mcL Invalid Interpretation Code 130 - 400 10^3/mcL AO Auto Heme SS RBC (Bld) [#/Vol] 5.21 106/mcL Invalid Interpretation Code 4.20 - 5.40 10^6/mcL AO Auto Heme SS WBC (Bld) [#/Vol] 8.00 103/mcL Invalid Interpretation Code 4.60 - 10.80 10^3/mcL AO Auto Heme SS LABORATORYOrdered By: SYSTEM SYSTEM on 01-29-2022 GFR 91 ml/min/1.73sqm Invalid Interpretation Code AO Chemistry S GFR Non- 75 ml/min/1.73sqm Invalid Interpretation Code AO Chemistry S LABORATORYOrdered By: Karli Benites on 07-17-2021 Albumin BCP dye [Mass/Vol] 3.8 G/dL Invalid Interpretation Code 3.4 - 4.8 G/dL AO ADM SS Albumin/Globulin [Mass ratio] 1.2 {ratio} Invalid Interpretation Code 1.1 - 2.5 ratio AO ADM SS ALP [Catalytic activity/Vol] 44 U/L Invalid Interpretation Code 40 - 135 U/L AO ADM SS ALT With P-5'-P [Catalytic activity/Vol] 23 U/L Invalid Interpretation Code 14 - 59 U/L AO ADM SS AST With P-5'-P [Catalytic activity/Vol] 19 U/L Invalid Interpretation Code 10 - 40 U/L AO ADM SS Bilirubin [Mass/Vol] 0.4 mg/dL Invalid Interpretation Code 0.2 - 1.0 mg/dL AO ADM SS Calcium [Mass/Vol] 9.5 mg/dL Invalid Interpretation Code 8.4 - 10.2 mg/dL AO ADM SS Chloride [Moles/Vol] 103 mmol/L Invalid Interpretation Code 98 - 107 mmol/L AO ADM SS Cholesterol [Mass/Vol] 176 mg/dL Invalid Interpretation Code 0 - 200 mg/dL AO ADM SS Cholesterol in HDL [Mass/Vol] 76 mg/dL Invalid Interpretation Code 40 - 60 mg/dL AO ADM SS Cholesterol in LDL [Mass/Vol] 74 mg/dL Invalid Interpretation Code 0 - 130 mg/dL AO ADM SS CO2 [Moles/Vol] 32 mmol/L Invalid Interpretation Code 23 - 31 mmol/L AO ADM SS Creatinine [Mass/Vol] 0.91 mg/dL Invalid Interpretation Code 0.55 - 1.02 mg/dL AO ADM SS Electrolyte Balance 5.0 mEq/L Invalid Interpretation Code AO ADM SS Globulin 3.1 G/dL Invalid Interpretation Code AO ADM SS Glucose [Mass/Vol] 124 mg/dL Invalid Interpretation Code 83 - 110 mg/dL AO ADM SS Potassium [Moles/Vol] 4.9 mmol/L Invalid Interpretation Code 3.5 - 5.1 mmol/L AO ADM SS Protein [Mass/Vol] 6.9 G/dL Invalid Interpretation Code 6.4 - 8.2 G/dL AO ADM SS Sodium [Moles/Vol] 140 mmol/L Invalid Interpretation Code 136 - 145 mmol/L AO ADM SS Triglyceride [Mass/Vol] 128 mg/dL Invalid Interpretation Code 0 - 150 mg/dL AO ADM SS Urea nitrogen [Mass/Vol] 21 mg/dL Invalid Interpretation Code 7 - 18 mg/dL AO ADM SS Urea nitrogen/Creatinine [Mass ratio] 23 ratio Invalid Interpretation Code 7 - 27 ratio AO ADM SS LABORATORYOrdered By: Emelia Byrnes on 07-17-2021 Basophil, Absolute 0.00 103/mcL Invalid Interpretation Code 0.00 - 0.19 10^3/mcL AO Auto Heme SS Basophils/100 WBC (Bld) 0.5 % Invalid Interpretation Code 0.0 - 2.5 % AO Auto Heme SS Eosinophil, Absolute 0.20 103/mcL Invalid Interpretation Code 0.00 - 0.40 10^3/mcL AO Auto Heme SS Eosinophils/100 WBC (Bld) 2.5 % Invalid Interpretation Code 0.0 - 7.0 % AO Auto Heme SS Erythrocyte distribution width (RBC) [Ratio] 14.4 % Invalid Interpretation Code 11.5 - 14.5 % AO Auto Heme SS Hematocrit (Bld) [Volume fraction] 43.4 % Invalid Interpretation Code 37.0 - 47.0 % AO Auto Heme SS Hemoglobin (Bld) [Mass/Vol] 13.8 G/dL Invalid Interpretation Code 12.0 - 16.0 G/dL AO Auto Heme SS Lymphocyte, Absolute 2.70 103/mcL Invalid Interpretation Code 0.77 - 3.85 10^3/mcL AO Auto Heme SS Lymphocytes/100 WBC (Bld) 33.4 % Invalid Interpretation Code 10.0 - 50.0 % AO Auto Heme SS MCH (RBC) [Entitic mass] 27.0 pg Invalid Interpretation Code 27.0 - 31.2 pg AO Auto Heme SS MCHC (RBC) [Mass/Vol] 31.7 G/dL Invalid Interpretation Code 33.0 - 37.0 G/dL AO Auto Heme SS MCV (RBC) [Entitic vol] 85.1 fL Invalid Interpretation Code 80.0 - 94.0 fL AO Auto Heme SS Monocyte, Absolute 0.50 103/mcL Invalid Interpretation Code 0.15 - 1.00 10^3/mcL AO Auto Heme SS Monocytes/100 WBC (Bld) 5.9 % Invalid Interpretation Code 1.7 - 13.0 % AO Auto Heme SS Neutrophil, Absolute 4.70 103/mcL Invalid Interpretation Code 2.85 - 6.16 10^3/mcL AO Auto Heme SS Neutrophils/100 WBC (Bld) 57.7 % Invalid Interpretation Code 37.0 - 80.0 % AO Auto Heme SS Platelet mean volume (Bld) [Entitic vol] 7.3 fL Invalid Interpretation Code 7.4 - 10.4 fL AO Auto Heme SS Platelets (Bld) [#/Vol] 272 103/mcL Invalid Interpretation Code 130 - 400 10^3/mcL AO Auto Heme SS RBC (Bld) [#/Vol] 5.10 106/mcL Invalid Interpretation Code 4.20 - 5.40 10^6/mcL AO Auto Heme SS WBC (Bld) [#/Vol] 8.10 103/mcL Invalid Interpretation Code 4.60 - 10.80 10^3/mcL AO Auto Heme SS LABORATORYOrdered By: SYSTEM SYSTEM on 07-17-2021 GFR 72 ml/min/1.73sqm Invalid Interpretation Code AO Chemistry S GFR Non- 60 ml/min/1.73sqm Invalid Interpretation Code AO Chemistry S Vital Signs Date Time Vital Sign Value Performing Clinician Facility 02-06-2024 20:00-0400 Body temperature 98 [degF] [facility] 02-06-2024 20:00-0400 Diastolic blood pressure 73 mm[Hg] [facility] 02-06-2024 20:00-0400 Heart rate 68 /min [facility] 02-06-2024 20:00-0400 Respiratory rate 18 /min [facility] 02-06-2024 20:00-0400 SaO2% (BldA) [Mass fraction] 97 % [facility] 02-06-2024 20:00-0400 Systolic blood pressure 173 mm[Hg] [facility] 02-06-2024 15:49-0400 Body height 175.26 cm [facility] 02-06-2024 15:49-0400 Body mass index (BMI) [Ratio] 38.9 kg/m2 [facility] 02-06-2024 15:49-0400 Body weight 119.74 kg [facility] 12-09-2023 10:13-0500 Body weight 120.2 kg Tete FITZGERALD Work Phone: [facility] 12-09-2023 10:13-0500 Diastolic blood pressure 66 mm[Hg] Tete FITZGERALD Work Phone: [facility] 12-09-2023 10:13-0500 Heart rate 69 /min Tete FITZGERALD Work Phone: [facility] 12-09-2023 10:13-0500 Systolic blood pressure 190 mm[Hg] Tete FITZGERALD Work Phone: [facility] 07-16-2023 10:53-0400 Body height 167.64 cm TONE Brewer NP Work Phone: [facility] 07-16-2023 10:53-0400 Body mass index (BMI) [Ratio] 45.8 kg/m2 [employer] Laci Beltranwinnie [employer]ILD[employer]ER Work Phone: [facility] 07-16-2023 10:53-0400 Body weight 128.82 kg [employer] Laci Osman [employer]ILDING W[employer]CKER Work Phone: [facility] 07-04-2023 19:10-0400 Body temperature 98.24 [degF] ROHAN CASPERER [employer]ICULTURAL ADVISER-[employer]CEPTIONIST [facility] 07-04-2023 19:10-0400 Diastolic Blood Pressure Non-Invasive 46 1 ROHAN MCDOWELL AGRICULTURAL ADVISER-[employer] RECEPTIONIST [facility] 07-04-2023 19:10-0400 Heart rate 78 /min ROHAN MCDOWELL AGRICULTURAL ADVISER-[employer] RECEPTIONIST [facility] 07-04-2023 19:10-0400 Reason For Taking VItal Signs ROHAN MCDOWELL AGRICULTURAL ADVISER-[employer] RECEPTIONIST [facility] 07-04-2023 19:10-0400 Respiratory rate 18 /min ROHAN JULY AGRICULTURAL ADVISER-[employer] RE[employer]IST [facility] 07-04-2023 19:10-0400 Systolic Blood Pressure Non-Invasive 142 1 ROHAN MCDOWELL AGRICULTURAL ADVISER-[employer] RECEPTIONIST [facility] 07-04-2023 16:39-0400 Diastolic Blood Pressure Non-Invasive 60 1 ROHAN CASPERER AGRICULTURAL ADVISER-[employer] RECEPTIONIST [facility] 07-04-2023 16:39-0400 Systolic Blood Pressure Non-Invasive 158 1 ROHAN CASPERER AGRICULTURAL ADVISER-[employer] RE[employer] [facility] 07-04-2023 16:22-0400 Body temperature 97.88 [degF] ROHAN CASPERER AGRICULTURAL ADVISER-WEEKEND RECEPTIONIST [facility] 07-04-2023 16:22-0400 Diastolic Blood Pressure Non-Invasive 121 1 ROHAN KAPPER AGRICULTURAL ADVISER-WEEKEND RECEPTIONIST [facility] 07-04-2023 16:22-0400 Heart rate 72 /min ROHAN KAPPER AGRICULTURAL ADVISER-WEEKEND RECEPTIONIST [facility] 07-04-2023 16:22-0400 Respiratory rate 20 /min ROHAN KAPPER AGRICULTURAL ADVISER-WEEKEND RECEPTIONIST [facility] 07-04-2023 16:22-0400 Systolic Blood Pressure Non-Invasive 152 1 ROHAN KAPPER AGRICULTURAL ADVISER-WEEKEND RECEPTIONIST [facility] 07-04-2023 12:17-0400 Body temperature 97.88 [degF] ROHAN KAPPER AGRICULTURAL ADVISER-WEEKEND RECEPTIONIST [facility] 07-04-2023 12:17-0400 Heart rate 72 /min ROHAN KAPPER AGRICULTURAL ADVISER-WEEKEND RECEPTIONIST [facility] 07-04-2023 12:17-0400 Respiratory rate 20 /min ROHAN KAPPER AGRICULTURAL ADVISER-WEEKEND RECEPTIONIST [facility] 07-04-2023 11:20-0400 Heart rate 74 /min ROHAN KAPPER AGRICULTURAL ADVISER-WEEKEND RECEPTIONIST [facility] 07-04-2023 07:54-0400 Heart rate 74 /min ROHAN KAPPER AGRICULTURAL ADVISER-WEEKEND RECEPTIONIST [facility] 07-04-2023 04:11-0400 Heart rate 82 /min ROHAN KAPPER AGRICULTURAL ADVISER-WEEKEND RECEPTIONIST [facility] 07-04-2023 04:11-0400 Reason For Taking VItal Signs ROHAN KAPPER AGRICULTURAL ADVISER-WEEKEND RECEPTIONIST [facility] 07-03-2023 23:30-0400 Reason For Taking VItal Signs ROHAN KAPPER AGRICULTURAL ADVISER-WEEKEND RECEPTIONIST [facility] 07-03-2023 03:07-0400 Heart rate 78 /min ROHAN KAPPER AGRICULTURAL ADVISER-WEEKEND RECEPTIONIST [facility] 07-02-2023 22:59-0400 Heart rate 82 /min ROHAN KAPPER AGRICULTURAL ADVISER-WEEKEND RECEPTIONIST [facility] 06-30-2023 18:36-0400 Body height 160 cm ROHAN KAPPER AGRICULTURAL ADVISER-WEEKEND RECEPTIONIST [facility] 06-30-2023 18:36-0400 Body weight 128 kg ROHAN KAPPER AGRICULTURAL ADVISER-WEEKEND RECEPTIONIST [facility] 06-30-2023 18:36-0400 Body weight 50 kg/m2 ROHAN KAPPER AGRICULTURAL ADVISER-WEEKEND RECEPTIONIST [facility] 06-30-2023 15:17-0400 Blood Pressure Location ROHAN KAPPER AGRICULTURAL ADVISER-WEEKEND RECEPTIONIST [facility] 06-30-2023 15:17-0400 Blood Pressure Method ROHAN KAPPER AGRICULTURAL ADVISER-WEEKEND RECEPTIONIST [facility] Encounters Encounter Date Encounter Type Care Provider Facility Start: 03-02-2025 ambulatory Balwidner MARSHALL Facil ity:[facility] Start: 03-02-2025 Registered Referred Balwinder Alves MD [facility] Start: 02-07-2025 End: 02-07-2025 ambulatory Balwinder Alves MD [facility] Work Phone: Start: 02-07-2025 End: 02-07-2025 Departed Referred Balwinder Alves MD [facility] Start: 02-07-2025 End: 02-07-2025 ambulatory Balwinder MARSHALL Facility:[facility] Start: 01-23-2025 End: 01-23-2025 ambulatory Balwinder Alves MD [facility] Work Phone: Start: 01-23-2025 End: 01-23-2025 [facility] Start: 01-23-2025 End: 01-23-2025 ambulatory Balwinder Alves OLS Facility:[facility] Start: 01-09-2025 End: 01-09-2025 ambulatory Balwinder Alves MD [facility] Work Phone: Start: 01-09-2025 End: 01-09-[address] Balwinder Alves MD [facility] Start: 01-09-2025 End: 01-09-2025 ambulatory Balwinder Alves Facility:[facility] Start: 01-02-2025 End: 01-02-2025 ambulatory Balwinder Alves MD [facility] Work Phone: Start: 01-02-2025 End: 01-02-2025 [facility] Start: 01-02-2025 Registered Referred Balwinder Fontanez [facility] Start: 01-02-2025 End: 01-02-2025 ambulatory Balwinder MARSHALL Facility:[facility] Start: 12-26-2024 End: 12-26-2024 ambulatory Balwinder Alves MD [facility] Work Phone: Start: 12-26-2024 End: 12-26-2024 Departed Referred [facility] Start: 12-26-2024 Registered Referred Balwinder Alves MD [facility] Start: 12-26-2024 End: 12-26-2024 ambulatory Balwinder MARSHALL Facility:[facility] Start: 12-16-2024 End: 12-16-2024 ambulatory Balwinder Alves MD [facility] Work Phone: Start: 12-16-2024 End: 12-16-2024 [facility]ed [facility] Start: 12-16-2024 Registered Referred Balwinder Fontanez [facility] Start: 12-16-2024 End: 12-16-2024 ambulatory Balwinder MARSHALL Facility:[facility] Start: 12-14-2024 End: 12-14-2024 ambulatory Balwinder Alves MD [facility] Work Phone: Start: 12-14-2024 End: 12-14-2024 Departed [facility] Start: 12-14-2024 End: 12-14-2024 ambulatory Balwinder MARSHALL Facility:[facility] Start: 10-10-2024 ambulatory Balwinder MARSHALL Facil ity:[facility] Start: 10-10-2024 Registered Referred Balwinder Alves MD [facility] Start: 09-14-2024 End: 09-14-2024 Departed Referred [facility]inder [facility] Start: 09-14-2024 End: 09-14-2024 ambulatory Balwinder MARSHALL Facility:[facility] Start: 06-14-2024 End: 06-14-2024 ambulatory Balwinder MARSHALL Facility:[facility] Start: 05-29-2024 End: 05-29-2024 ambulatory Balwinder Alves Facility:[facility] Start: 05-06-2024 End: 05-06-2024 ambulatory Balwinder MARSHALL Facility:[facility] Start: 03-25-2024 End: 03-25-2024 ambulatory Balwinder MARSHALL Facility:[facility] Start: 03-14-2024 End: 03-14-2024 ambulatory Balwinder MARSHALL Facility:[facility] Start: 02-06-2024 End: 02-06-2024 Emergency department patient visit [facility] Work Phone: Start: 12-14-2023 End: 12-14-2023 ambulatory [facility] Work Phone: Start: 12-14-2023 End: 12-14-2023 Departed Referred [facility] Start: 12-09-2023 End: 12-09-2023 ambulatory TETE TREVINO [facility] Start: 12-09-2023 End: 12-09-2023 Office outpatient visit 15 minutes Tete FITZGERALD Work Phone: [facility] Comment on above: Closed fracture of d istal end of left fibula, unspecified fracture morphology, initial encounter (Primary Dx) Start: 11-16-2023 Orders Only Tete FITZGERALD Work Phone: [facility] Comment on above: Closed fracture of d istal end of left fibula, unspecified fracture morphology, initial encounter (Primary Dx) Start: 10-14-2023 End: 10-14-2023 [facility] Start: 10-14-2023 End: 10-14-2023 Office outpatient visit 15 minutes Tete FITZGERALD Work Phone: [facility] Comment on above: Closed fracture of d istal end of left fibula, unspecified fracture morphology, initial encounter; Acute left ankle pain Start: 10-09-2023 Orders Only Tete FITZGERALD Work Phone: [facility] Comment on above: Closed fracture of l eft ankle, initial encounter (Primary Dx) Start: 09-23-2023 End: 09-23-2023 ambulatory BUILDING WRECKER-C Laci Brewer BUILDING WRECKER Work Phone: [facility] Work Phone: Start: 09-23-2023 End: 09-23-2023 Departed Referred [employer]ILD[employer]ER-C Laci Brewer BUILDING WRECKER Work Phone: [facility] Start: 09-14-2023 End: 09-14-2023 ambulatory BUILDING WRECKER-C Laci Baltes BUILDING WRECKER Work Phone: [facility] Work Phone: Start: 09-14-2023 End: 09-14-2023 Departed Referred BUILDING WRECKER-C Laci Beltrantes BUILDING WRECKER Work Phone: [facility] Start: 07-17-2023 Telephone encounter Zander Ureña MD Work Phone: [facility] Comment on above: Other (Appt ) Start: 07-16-2023 End: 07-16-2023 Patient encounter procedure BUILDING WRECKER-C Laci Beltranwinnie BUILDING WRECKER Work Phone: [facility] Work Phone: Start: 06-30-2023 End: 07-05-2023 ambulatory LACI OSMAN AGRICULTURAL ADVISER-WEEKEND RECEPTIONIST Facility:B Start: 06-30-2023 End: 07-04-2023 ambulatory ROHAN Romero JULY AGRICULTURAL ADVISER-WEEKEND RECEPTIONIST Facility:[facility] Start: 06-30-2023 End: 07-04-2023 Observation ROHAN M JULY AGRICULTURAL ADVISER-WEEKEND RECEPTIONIST [facility] Start: 02-05-2023 End: 02-06-2023 ambulatory LACI OSMAN AGRICULTURAL ADVISER-WEEKEND RECEPTIONIST Facility:[facility] Start: 02-05-2023 End: 02-05-2023 Patient encounter procedure LACI OSMAN AGRICULTURAL ADVISER-WEEKEND RECEPTIONIST [facility] Start: 01-29-2022 End: 01-29-2022 Patient encounter procedure LACI BREWER AGRICULTURAL ADVISER-WEEKEND RECEPTIONIST [facility] Start: 07-17-2021 End: 07-17-2021 Patient encounter procedure LACI BREWER AGRICULTURAL ADVISER-WEEKEND RECEPTIONIST [facility] Procedures Date Procedure Procedure Detail Performing Clinician Start: 03-02-2025 Urine culture Balwinder savage MD Start: 03-02-2025 Urnls dip stick/tabl et reagent auto microscopy Balwinder Alves MD Start: 02-07-2025 Urine culture Balwinder savage MD Start: 02-07-2025 Urnls dip stick/tabl et reagent auto microscopy Balwinder Alves MD Start: 01-23-2025 Urnls dip stick/tabl et reagent auto microscopy Balwinder Alves MD Start: 01-23-2025 Urine culture Balwinder savage MD Start: 01-09-2025 Urine culture Balwinder savage MD Start: 01-09-2025 Urnls dip stick/tabl et reagent auto microscopy Balwinder Alves MD Start: 01-02-2025 Urnls dip stick/tabl et reagent auto microscopy Balwinder Alves MD Start: 01-02-2025 Urine culture Balwinder savage MD Start: 12-16-2024 Vitamin D, 25-hydrox y measurement Balwinder Alves MD Comment on above: Vitamin D StatusDefi ciency: <20 ng/mL (50nmol/L)Insufficiency: 20-30 ng/mL (50-75 nmol/L)Sufficiency: 30-100 ng/mL (75-250 nmol/L)Toxicity: >100 ng/mL (>250 nmol/L) Start: 12-14-2024 Vitamin D, 25-hydrox y measurement Balwinder Alves MD Comment on above: Vitamin D StatusDefi ciency: <20 ng/mL (50nmol/L)Insufficiency: 20-30 ng/mL (50-75 nmol/L)Sufficiency: 30-100 ng/mL (75-250 nmol/L)Toxicity: >100 ng/mL (>250 nmol/L) Start: 10-10-2024 Urine culture Balwinder savage MD Start: 12-09-2023 Follow-up visit Follow-up TETE DUTTON Start: 09-23-2023 Clostridium difficil e detection [employer]ILDING [employer]ER-C Laci Beltranwinnie BUILDING WRECKER Work Phone: Start: 07-16-2023 Radiography of ankle BUILDING W[employer]CKER -C Laci Brewer BUILDING WRECKER Work Phone: Start: 04-04-2023 Extraction of cataract ROHAN MCDOWELL AGRICULTURAL ADVISER-WEEKEND RECEPTIONIST Comment on above: Left side Start: 02-09-2020 Ophthalmic examinati on and evaluation LACI BREWER AGRICULTURAL ADVISER-WEEKEND RECEPTIONIST Comment on above: No retinopathy; WE Start: 03-22-2007 Arthroplasty of knee RY AN BALTES AGRICULTURAL ADVISER-WEEKEND RECEPTIONIST Comment on above: BILATERAL Start: 03-05-2007 Arthroplasty of knee RY AN BALTES AGRICULTURAL ADVISER-WEEKEND RECEPTIONIST Start: 10-05-1968 section LACI GUERRA AGRICULTURAL ADVISER-WEEKEND RECEPTIONIST Cataract (disorder) LACI ROWAN AGRICULTURAL ADVISER-WEEKEND RECEPTIONIST Comment on above: Right eye Cholecystectomy LACI BREWER AGRICULTURAL ADVISER-WEEKEND RECEPTIONIST Hysterectomy LACI BREWER APR N-WEEKEND RECEPTIONIST Miscellaneous (quali fier value) ROHAN JULY AGRICULTURAL ADVISER-WEEKEND RECEPTIONIST Comment on above: brain drains from br ain bleed 2013 Renal lithotripsy LACI Ramesh AGRICULTURAL ADVISER-WEEKEND RECEPTIONIST Sling, device (physi shauna object) LACI BREWER AGRICULTURAL ADVISER-WEEKEND RECEPTIONIST Comment on above: Bladder H/o cystocele Tonsillectomy LACI BREWER AP RN-WEEKEND RECEPTIONIST Comment on above: as a teenager Plan of Treatment Date Care Activity Detail Author Start: 06-24-2026 DTaP/Tdap/Td Vaccine s (2 - Td or Tdap) DTaP/Tdap/Td Vaccines (2 - Td or Tdap) [facility] Start: 01-23-2025 [facility] Start: 01-23-2025 Bacteria identified in Urine by Culture Urine Culture [facility] Start: 01-09-2025 Urine culture Urine Culture [facility] Start: 01-09-2025 [facility] Start: 01-02-2025 [facility] Start: 01-02-2025 Bacteria identified in Urine by Culture Urine Culture [facility] Start: 01-02-2025 Urine culture [facility] Start: 02-06-2024 [facility] Start: 11-25-2023 End: 11-16-2024 XR Ankle - left 3 Views XR ankle 3+ views left Imaging Routine Closed fracture of distal end of left fibula, unspecified fracture morphology, initial encounter Expected: 11/25/2023, Expires: 11/16/2024 [facility] Work Phone: Comment on above: Expected: 11/25/2023 , Expires: 11/16/2024 Start: 11-25-2023 End: 11-25-2023 Patient encounter procedure 11/25/2023 10:30 AM EST Office Visit [facility] [address] [place] [address] [place] [phone] Tete Trevino PA [address] [facility] [address] [place] [address] [facility] Start: 10-14-2023 End: 10-09-2024 XR Ankle - left 3 Views XR ankle 3+ views left Imaging Routine Closed fracture of left ankle, initial encounter Expected: 10/14/2023, Expires: 10/09/2024 [facility] [email or web address] [facility] Work Phone: Comment on above: Expected: 10/14/2023 , Expires: 10/09/2024 Start: 10-14-2023 End: 10-14-2023 Patient encounter procedure 10/14/2023 10:00 AM EST Office Visit [facility] [address] [facility] [address] [place] [address] Tete Trevino PA 1 [facility] [address] [place] [address] [facility] Start: 10-05-2023 Medicare Advantage Annual Wellness Visit Medicare Advantage Annual Wellness Visit [facility] Start: 06-05-2023 COVID-19 Vaccine ( season) COVID-19 Vaccine ( season) [facility] Start: 06-05-2023 COVID-19 Vaccine ( season) COVID-19 Vaccine ( season) [facility] Start: 06-05-2023 Influenza vaccination Influenza Vacc ine (#1) [facility] Start: 06-03-2021 Zoster Vaccines (3 o f 3) Zoster Vaccines (3 of 3) [facility] Start: 2008 Pneumococcal Vaccine : 65+ Years (1 - PCV) Pneumococcal Vaccine: 65+ Years (1 - PCV) [facility] Start: 2003 RSV Immunization age d 60 or older (1 - 1-dose 60+ series) RSV Immunization aged 60 or older (1 - 1-dose 60+ series) [facility] Start: 1993 Zoster Vaccines (1 o f 2) Zoster Vaccines (1 of 2) [facility] Start: 1962 DTaP/Tdap/Td Vaccine s (1 - Tdap) DTaP/Tdap/Td Vaccines (1 - Tdap) [facility] Start: 1955 Depression Screening Depression Scre ening [facility] Start: 1943 COVID-19 Vaccine (#1) COVID-19 Vacci ne (#1) [facility] Start: 1943 Medicare Advantage Annual Wellness Visit (AWV) Medicare Advantage Annual Wellness Visit (AWV) [facility] Start: 1943 Screening for osteoporosis Bone Density Scan [facility] Patient Education ED Abscess Inc ision And Drainage ED Wound Care After Packing ... [facility] Work Phone: Patient referral [facility] Work Phone: Urine culture [facility] Immunizations Immunization Date Immunization Notes Care Provider Fa keya 07-03-2022 influenza virus vacc ine, unspecified formulation LACI BREWER AGRICULTURAL ADVISER-WEEKEND RECEPTIONIST [facility] 01-14-2022 SARS-CoV-2 mRNA (qryhwhtjilw-tnhw-fojpxa e) vaccine LACI BREWER AGRICULTURAL ADVISER-WEEKEND RECEPTIONIST [facility] 06-14-2021 influenza virus vacc ine, unspecified formulation LACI BREWER AGRICULTURAL ADVISER-WEEKEND RECEPTIONIST [facility] 04-08-2021 zoster vaccine recombinant LACI BREWER AGRICULTURAL ADVISER-WEEKEND RECEPTIONIST [facility] 01-01-2021 SARS-CoV-2 (COVID-19 ) mRNA BNT-162b2 vax LACI BREWER AGRICULTURAL ADVISER-WEEKEND RECEPTIONIST [facility] 12-10-2020 SARS-CoV-2 (COVID-19 ) mRNA BNT-162b2 vax LACI BREWER AGRICULTURAL ADVISER-WEEKEND RECEPTIONIST [facility] Comment on above: Result Comment: 2020: [id number] 05-06-2020 influenza virus vacc ine, unspecified formulation LACI BREWER AGRICULTURAL ADVISER-WEEKEND RECEPTIONIST [facility] 05-06-2020 pneumococcal conjuga te vaccine, 13 valent LACI BREWER AGRICULTURAL ADVISER-WEEKEND RECEPTIONIST [facility] 07-06-2019 influenza virus vacc ine, unspecified formulation LACI BREWER AGRICULTURAL ADVISER-WEEKEND RECEPTIONIST [facility] 09-03-2018 influenza virus vacc ine, unspecified formulation LACI BREWER AGRICULTURAL ADVISER-WEEKEND RECEPTIONIST [facility] 08-05-2018 influenza virus vacc ine, unspecified formulation LACI BREWER AGRICULTURAL ADVISER-WEEKEND RECEPTIONIST [facility] 07-04-2018 influenza virus vacc ine, unspecified formulation LACI BREWER AGRICULTURAL ADVISER-WEEKEND RECEPTIONIST [facility] 06-04-2018 influenza virus vacc ine, unspecified formulation LACI BREWER AGRICULTURAL ADVISER-WEEKEND RECEPTIONIST [facility] 06-23-2017 influenza virus vacc ine, unspecified formulation LACI BREWER AGRICULTURAL ADVISER-WEEKEND RECEPTIONIST [facility] 06-10-2017 influenza virus vacc ine, unspecified formulation LACI BREWER AGRICULTURAL ADVISER-WEEKEND RECEPTIONIST [facility] 06-24-2016 influenza virus vacc ine, unspecified formulation LACI BREWER AGRICULTURAL ADVISER-WEEKEND RECEPTIONIST [facility] 06-24-2016 tetanus toxoid, redu chivo diphtheria toxoid, and acellular pertussis vaccine, adsorbed LACI BREWER AGRICULTURAL ADVISER-WEEKEND RECEPTIONIST [facility] 07-17-2015 pneumococcal conjuga te vaccine, 13 valent LACI BREWER AGRICULTURAL ADVISER-WEEKEND RECEPTIONIST [facility] 06-19-2015 influenza virus vacc ine, unspecified formulation LACI BREWER AGRICULTURAL ADVISER-WEEKEND RECEPTIONIST [facility] 09-06-2014 influenza virus vacc ine, unspecified formulation LACI BREWER AGRICULTURAL ADVISER-WEEKEND RECEPTIONIST [facility] 06-08-2013 pneumococcal polysaccharide vaccine, 23 valent LACI BREWER AGRICULTURAL ADVISER-WEEKEND RECEPTIONIST [facility] 09-01-2012 influenza virus vacc ine, unspecified formulation LACI BREWER AGRICULTURAL ADVISER-WEEKEND RECEPTIONIST [facility] 05-28-2012 zoster vaccine, live LACI KOREY KUNAL AGRICULTURAL ADVISER-WEEKEND RECEPTIONIST [facility] Payers Date Payer Category Payer Medicaid [id number] 2024 Self-pay [id number] 2023 Medicare [employer] [id number] 2023-Present [phone] [address] [place] [address] Medicare HMO [id number] 2023 Medicare [id number] 2023 Unknown [id number] 1945 Unknown [id number] 1945 Unknown [id number] 1945 Unknown [id number] Medicare MEDICARE PART A B [id number] Unknown [id number] Unknown [id number] Unknown [id number] Unknown [id number] [id number] Unknown [id number] [id number] Unknown [id number] [id number] Unknown [id number] [id number] Unknown [id number] [id number] Unknown [id number] Unknown [id number] Unknown [id number] Unknown [id number] Unknown [id number] [id number] Unknown [id number] Unknown [id number] Social History Date Type Detail Facility Start: 04-06-2019 End: 02-06-2024 Ex-smoker (finding) [facility] Comment on above: Quit in 2014, not ar ound cigarette smoke Start: 1945 Sex Assigned At Female [facility] Start: 07-16-2023 End: 02-06-2024 Tobacco smoking status FLIS Tobacco smoking consumption unknown [facility] Start: 1945 Sex Assigned At Not on file [facility] Start: 10-14-2023 End: 12-09-2023 Gender identity Not on file [facility] Start: 10-14-2023 Tobacco smoking stat us [facility] Never smoked tobacco [facility] Start: 10-14-2023 Tobacco use and exposure Smokeless tobacco non-user [facility] Start: 10-14-2023 End: 12-09-2023 History of Social function [facility] Start: 01-04-2025 End: 01-24-2025 Sex Female (finding) [facility] Medical Equipment Procedure Code Equipment Code Equipment Origin al Text Equipment Identifier Dates BD UF SHORT PEN NEEDLE [id number] Start: 08-29-[address] Strips Start: 10-16-2020 Lancets Start: 04-23-2021 BD UF SHORT PEN NEEDLE [id number], 0 Refill(s), 141.8 Start: 08-29-2020 See Instructions , EA=BOX of 100 2x daily testing once touch untra blue dx: diabetes, # 6 EA, 3 Refill(s), Pharmacy: [facility]/pharmacy #[id number], Diabetes, 166.37, cm, 07/24/21 11:31:00 EDT, Height, 134.5, kg, 07/24/21 11:31:00 EDT, Dosing Weight Start: 07-24-2021 See Instructions , EA=BOX OF 100 ONETOUCH DELICA LANCETS FINE, 33 GA TO TEST BID Diabetes R11.9, # 6 EA, 3 Refill(s), [id number] Diabetes, 166.37, cm, 07/24/21 11:31:00 EDT, Height, 134.5, kg, 07/24/21 11:31:00 EDT, Dosing Weight Start: 07-24-2021 See Instructions , Using Twice Daily. ONE BOX OF 100. BD UF 8mm 31 G (short) qs 3 month supply Diabetes Mellitus E11.9, # 2 EA, 0 Refill(s), Pharmacy: [facility]/pharmacy #[id number], 167.6, cm, 11/05/21 9:58:00 EST, Height, 135.4, kg, 11/05/21 9:58:00 EST, Dosing... Start: 12-20-2021 See Instructions , EA=BOX of 100 2x daily testing once touch untra blue dx: diabetes, # 6 EA, 3 Refill(s), Pharmacy: [facility]/pharmacy #[id number], Diabetes, 167.6, cm, 05/20/22 12:08:00 EDT, Height, 134.9, kg, 05/20/22 11:59:00 EDT, Dosing Weight Start: 08-05-2022 See Instructions , EA=BOX OF 100 ONETOUCH DELICA LANCETS FINE, 33 GA TO TEST BID Diabetes R11.9, # 6 EA, 3 Refill(s), Pharmacy: [facility]/pharmacy #[id number], Diabetes, 167.6, cm, 08/19/22 12:13:00 EST, Height, 135.4, kg, 08/19/22 12:13:00 EST, Dosing Weight Start: 09-10-2022 See Instructions , EA=ONE BOX OF 100, BID BD UF 8mm 31 G (short) qs 3 month supply Diabetes Mellitus E11.9, # 2 EA, 3 Refill(s), Pharmacy: [facility]/pharmacy #[id number], 167.6, cm, 11/20/22 11:29:00 EST, Height, 134, kg, 11/20/22 11:29:00 EST, Dosing Weight Start: 11-20-2022 See Instructions , EA=BOX of 100 2x daily testing once touch untra blue dx: diabetes, # 6 EA, 3 Refill(s), Pharmacy: [facility]/pharmacy #[id number], Diabetes, 167.6, cm, 05/20/22 12:08:00 EDT, Height, 134.9, kg, 05/20/22 11:59:00 EDT, Dosing Weight Start: 08-05-2022 See Instructions , EA=BOX OF 100 ONETOUCH DELLEIF LANCETS FINE, 33 GA TO TEST BID Diabetes R11.9, # 6 EA, 3 Refill(s), Pharmacy: [facility]/pharmacy #[id number], Diabetes, 167.6, cm, 08/19/22 12:13:00 EST, Height, 135.4, kg, 08/19/22 12:13:00 EST, Dosing Weight Start: 09-10-2022 See Instructions , EA=ONE BOX OF 100, BID BD UF 8mm 31 G (short) qs 3 month supply Diabetes Mellitus E11.9, # 2 EA, 3 Refill(s), [id number], 167.6, cm, 11/20/22 11:29:00 EST, Height, 134, kg, 11/20/22 11:29:00 EST, Dosing Weight Start: 11-20-2022 Functional Status Date Assessment Result Facility 07-04-2023 Functional Status Room check performed [facility] 07-04-2023 Functional Status right knee high applied /on [facility] 07-04-2023 Functional Status [facility] 07-04-2023 Functional Status [facility] 07-04-2023 Functional Status Demonstrates C orrect Call Light Use Yes [facility] 07-04-2023 Functional Status Done [facility] 07-04-2023 Functional Status [facility] 07-03-2023 Functional Status Positioning Repositions self [facility] 07-03-2023 Functional Status [facility] 07-03-2023 Functional Status [facility] 07-03-2023 Functional Status [facility] 07-03-2023 Functional Status [facility] 07-03-2023 Functional Status [facility] 07-02-2023 Functional Status [facility] 07-02-2023 [facility] 07-01-2023 Functional Status Single level home [facility] 07-01-2023 Functional Status [facility] 06-30-2023 Functional Status Sensory Deficits None A [facility] 06-30-2023 Functional Status Activity Rosa tance Independent [facility] Mental Status Date Assessment Result Facility 07-04-2023 Mental Status Orientation Orie nted x 4, Follows simple commands [facility] 07-03-2023 Mental Status [facility] 07-03-2023 Mental Status [facility] 07-03-2023 Mental Status Orientation Asse ssment Oriented x 4 [facility] 07-02-2023 Mental Status [facility] 07-01-2023 Mental Status [facility] Clinical Notes 06-30-2023 to 02-06-2024 Note Date & Type Note Facility 02-06-2024 Discharge summary Note Date/Time February 06, 2024 4:09pm [facility] Medical Records Department [address] [place] [address] Emergency Department Summary 02/06/24 MR#: [id number] Acct: [id number] Name: GUMARO BUSTAMANTE Rep #:[id number] : 1945 78 From: Omid Montiel MD PCP: Dr. Balwinder Alves MD Status:REG ER Location: ED HPI History of Present Illness Chief Complaint: Wound Check Narrative Narrative: 78-year-old female past medical history of diabetes presents from nursing home facility for right labia majora abscess. She states it has been there for approximately [address] Alves at the facility had lanced the area, but her daughter reports that it was deep. It was not deep enough to take a packing. She has been on doxycycline and Keflex, but there has been a reaccumulation of fluid and the right labia has become more swollen. She presents for incision and drainage of the area again, and reportedly needs a PICC line because they want to start vancomycin. [facility] Medical History Brain bleed Cataract Closed fracture of left distal fibula Hx pulmonary embolism Left ankle pain Home Medications Gabapentin TID 11/01/20 [History Last Taken Unknown] duloxetine 60 mg capsule,delayed release 60 mg PO 11/01/20 [History Last Taken Unknown] losartan 100 mg tablet DAILY 11/01/20 [History Last Taken Unknown] metformin 1,000 mg tablet 1,000 mg PO 11/01/20 [History Last Taken Unknown] sitagliptin phosphate 100 mg tablet 100 mg PO DAILY 11/01/20 [History Last Taken Unknown] trazodone 50 mg tablet 50 mg PO PRN PRN Anxiety 11/01/20 [History Last Taken Unknown] Alendronate Sodium 70 mg PO QWEEK 11/22/20 [History Last Taken Unknown] hydrocodone-acetaminophen 5-325mg 5mg-325mg 1 tab PO QHS PRN 07/16/23 [History Last Taken Unknown] simvastatin 5 mg tablet 5 mg PO DAILY 07/16/23 [History Last Taken Unknown] Allergy/AdvReac Type Severity Reaction Status Date / Time adhesive tape Allergy Mild blister Verified 07/16/23 10:57 amoxicillin [From Augmentin] Allergy Mild Rash Verified 02/06/24 16:16 ciprofloxacin [From Cipro] Allergy Mild Rash Verified 07/16/23 10:57 clavulanic acid Allergy Mild Rash Verified 02/06/24 16:16 [From Augmentin] latex Allergy Mild Other Verified 02/06/24 16:18 sulfamethoxazole AdvReac Shortness Verified 11/01/20 14:52 [From Bactrim] of breath trimethoprim [From Bactrim] AdvReac Shortness Verified 11/01/20 14:52 of breath Surgical History Total knee replacement status Social History Smoking Status: Former smoker ROS ROS ED ROS Narrative Constitutional: No fever, no chills. HEENT: No sore throat. No neck pain. No loss of vision. No rhinorrhea. Cardiovascular: No chest pain. No palpitations. No pedal edema. Respiratory: No cough, no shortness of breath. Abdominal: No abdominal pain. No nausea. No vomiting. Genitourinary: No dysuria. No hematuria. Positive right labial pain and swelling. Musculoskeletal: No myalgias. No arthralgias. Neurologic: No headaches. No dizziness. No lightheadedness. Skin: No rash. No change in color. Psychiatric: No depression. No anxiety. EXAM Physical Exam Narrative Exam Narrative: Afebrile. Vital signs noted. Nontoxic-appearing. HEENT: Normocephalic. Atraumatic. PERRL, EOMI. Neck soft and supple. No pointtenderness or step off. Cardiovascular: Regular rate and rhythm. No murmurs, rubs, or gallops appreciated. Respiratory: No tachypnea. Lungs clear to auscultation bilaterally. Gastrointestinal: Abdomen soft, nontender, with normoactive bowel sounds. No rebound or guarding. Genitourinary: Chaperoned examination reveals swollen labia majora on right withindurated tissue. Small area of drainage. Neurological: Awake. Alert. Nonfocal, nonlateralizing. Skin: No rash. Normal color. No pallor. Musculoskeletal: No pedal edema. Full range of motion extremities. Const Vital Signs: 02/06/24 15:49 Temperature 98.1 F Temperature Source Oral Pulse Rate 78 Respiratory Rate 18 Blood Pressure 144/88 H Blood Pressure Mean 106 Pulse Ox 92 Oxygen Delivery Method Room Air MDM MDM MDM Narrative Medical decision making narrative: Patient was consented for incision and drainage. See procedure note for details. We attempted to see if PICC placement was available here, but it is not currently. Peripheral IV was started and she was given her first dose of vancomycin of 1.75 g. She was additionally given morphine and ondansetron preprocedure. Procedure note: Incision and drainage of right labial abscess. Povidine iodine used to cleanse the area. Lidocaine 1% was used as a local anesthetic. Patienthad already received morphine and ondansetron as an analgesic as well. #11 blade was used to make a stellate incision. There is evidence of ruptured capsule wall consistent with previously infected sebaceous cyst. There was a small amount of serosanguineous fluid that was drained. Area was D loculated and lightly irrigated, and two tail packing was inserted lightly using quarter inch iodoform gauze. Patient was able to tolerate procedure well. I discussed patient with Dr. Balwinder Alves afterwards. I do not feel she requires admission. The peripheral IV will be left in place so that they can administer vancomycin as she has already been on antibiotics orally. Disposition is discharged to [facility] in stable condition. History & Record Review Discussion w/independent historian: Patient and Family Management Discussion w/another healthcare provider: PCP (Dr. Balwinder Alves) Discharge Plan Triage Chief Complaint: Wound Check ED Provider: Omid Montiel Dx/Rx/DC Orders Clinical Impression: Labial abscess Instructions: ED Abscess Incision And Drainage, ED Wound Care After Packing ... Prescriptions: No Action simvastatin 5 mg tablet 5 mg PO DAILY hydrocodone-acetaminophen 5-325 mg tablet 1 tab PO QHS PRN trazodone 50 MG tablet 50 mg PO PRN PRN (Reason: Anxiety) metformin 1,000 MG tablet 1,000 mg PO losartan 100 MG tablet DAILY duloxetine 60 MG capsule,delayed release(DR/EC) 60 mg PO sitagliptin phosphate 100 MG tablet 100 mg PO DAILY Gabapentin 600 MG tablet TID Alendronate Sodium 70 mg PO QWEEK Primary Care Provider: Balwinder Alves Referrals: Balwinder Alves MD [Primary Care Provider] - 2 Days Laci Brewer NP, [facility] [Non-Staff] - Activity Restrictions/Additional Instructions: Remove packing/have packing removed in 48 hours. Do not leave in longer. Continue vancomycin through your peripheral IV. Disposition Disposition: Correction Facility Discharge Location: [facility] What to do if you have Problems For any increased pain, shortness of breath, bleeding, nausea or vomiting, chestpain, or any unexpected problems, contact your Primary Care Provider. Call [facility] ([phone]) or report to the closest Emergency Room. Call 911 if necessary. 02/06/241801 <Electronically signed by Omid Montiel MD> Cosigner Signature (if applicable): CC: Dr. Balwinder Alves MD ~ Signed [facility] Work Phone: 1(855) 535-231003-06-2024 History of Present illness Narrative* LIA Champagne - 12/09/2023 10:30 AM EST Images from the original note were not included. [facility] [address] [place] [address] [address] [facility] [address] Dept: [phone] Dept Gumaro Bustamante 1945 [id number] 12/09/2023 HISTORY OF PRESENT ILLNESS: Gumaro returns for re-evaluation of her left lateral malleolus fracture. Gumaro reports that her pain has decreased since the last visit Gumaro reports that her swelling has decreased since the last visit Gumaro denies calf pain and shortness of breath Gumaro has been weight bearing as tolerated on the left lower extremity in in an Aircast boot which she has been taking off for sleep and ROM. In general Gumaro feels that she is doing better than [...] and oriented x 3. The patient appears wellnourished. Psychiatric: The patient is able to verbalize [...] of left fibula, unspecified fracture morphology, initial encounterDME Order for Lace up brace MEDICAL DECISION MAKING: I had a discussion with Gumaro to make sure she has a good understanding of the diagnoses/issues that I think are present today and understands the plan moving forward. I explained to Gumaro that her fracture of the left lateral malleolus is in acceptable alignment andis progressively healing as expected As a result it was decided to have Gumaro transition from the aircast boot to a shoe with a laceup brace. she was instructed to use the laceup brace for the next 6 weeks and then she can wean from thebrace to just a shoe if her symptoms will allow. Gumaro was given a brace today and was instructed on its use and care. I explained to Gumaro that the brace is meant to provide support to the ankle/foot and it will restrict motion somewhat as well and it is hoped that this will help relieve some of her symptoms but may not completely resolve her current issue(s). If she has any problems or concernsregarding the brace or if it is not helping, she was instructed to call the office. Gumaro was instructed to be weight bearing as tolerated on the left lower extremity in the lace up brace and a shoe. If Gumaro has any problems maintaining this weight bearing status she was instructedto call me so that appropriate instructions can [...] needs to stop the activity. I explained thatit can take up to 12 months to be able to participate in pre-injury activities. If her pain is increasing she needs to call for an appointment. Gumaro can continue to elevate the left lower extremity for comfort if needed. I want to see Gumaro back as needed. If Gumaro feels things are going poorly or if she is having problems with the above plan she was instructed to call my office to determine if the plan of care needs to be changed or if she needs to beseen sooner than noted above. Follow up if symptoms worsen or fail to improve. Electronically signed by LIA Champagne [facility] Department of Orthopedic surgery 12/09/2023 3:43 PM Voice recognition was used for portions of this note and although it was reviewed prior to signing some incorrect words or phrases could be present. documented in this [facility]01-10-2024 History of Present illness Narrative* LIA Champagne - 10/14/2023 10:00 AM EST Images from the original note were not included. [facility] [address] [place] [address] [place] [id number] Dept: [phone] Dept Gumaro Bustamante 1945 [id number] 10/14/2023 HISTORY OF PRESENT ILLNESS: Gumaro returns for re-evaluation of her Left distal fibula fx DOI 07/02/23 Gumaro reports that her pain has been minimal Gumaro reports that her swelling has been minimal Gumaro denies calf pain and shortness of breath Gumaro has been nonweight bearing on the right lower extremity in in an Aircast boot which she has been taking off for sleep and ROM. In general Gumaro feels that she is doing better than [...] and oriented x 3. The patient appears wellnourished. Psychiatric: The patient is able to verbalize [...] of left fibula, unspecified fracture morphology, initial encounterExternal referral to Physical Therapy 2. Acute left ankle pain MEDICAL DECISION MAKING: I had a discussion with Gumaro to make sure she has a good understanding of the diagnoses/issues that I think are present today and understands the plan moving forward. I explained to Gumaro that her fracture of the left lateral malleolus is in acceptable alignment andis progressively healing as expected As a result it was decided that Gumaro will stay in the aircast boot that she has been in. We discussed that she is most likely experiencing posterior tibial tendonitis causing the medial sided pain. She was given an order that physical therapy can resume at the facility. Gumaro was instructed to be partial weight bearing and can advance to full weight bearing as tolerated on the left lower extremity in the Aircast boot. If Gumaro has any problems maintaining this weight bearing status she was instructed to call me so that appropriate instructions can be given. Gumaro was instructed to continue to elevate the left lower extremity for comfort. I explained that elevation means keeping the toes at the level of her nose. If her leg is not elevated to that heightthen it is not truly elevated and she may continue to have swelling and discomfort as a result. I want to see Gumaro back in approximately 6 weeks for revaluation and she will need xrays consisting of 3 weight bearing views of the Left ankle If Gumaro feels that the above plan of treatment [...] with Imaging. Electronically signed by LIA Champagne [facility] Department of Orthopedic surgery 10/14/2023 3:50 PM Voice recognition was used for portions of this note and although it was reviewed prior to signing some incorrect words or phrases could be present. documented in this [facility]11-30-2023 Telephone encounter Note* Telephone Encounter - Kimberly Capellan MA - 09/03/2023 8:53 AM EST Left distal fibula fx doi 07/02/23 she is in a boot. Can only be seen in [place] or [place]. No wads [id number] Miscellaneous Notes* Telephone Encounter - Kimberly Capellan MA - 09/03/2023 8:53 AM EST Left distal fibula fx doi 07/02/23 she is in a boot. Can only be seen in [place] or [place]. No wads * Telephone Encounter - Sammie Lantigua - 09/02/2023 12:08 PM EST Gareth an RN at [facility] called [phone] ext 2008, he states that they just got Gumaro from [place] and they are looking for her to follow up with a doctor. She broke her foot on 06/30/23 and she is still in a boot and is non weight bearing. He was looking to get information on Gumaro and to possibly get her scheduled. Gumaro is currently stating she does not want surgery, and heis going to check with her daughter. He doesn't know much about her since they just got her today. He is requesting a call back, he works until 2:30 today and then works again tomorrow. * Telephone Encounter - Billy Araya MA - 07/17/2023 9:27 AM EDT LVM to schedule with Dr. Ureña on Thursday at 1pm in [facility] or 9am in [place] if not already double booked. documented in this [facility]11-29-2023 Telephone encounter Note* Telephone Encounter - Sammie Lantigua - 09/02/2023 12:08 PM EST Gareth an RN at [facility] called [phone] ext 2008, he states that they just got Gumaro from [place] and they are looking for her to follow up with a doctor. She broke her foot on 06/30/23 and she is still in a boot and is non weight bearing. He was looking to get information on Gumaro and to possibly get her scheduled. Gumaro is currently stating she does not want surgery, and heis going to check with her daughter. He doesn't know much about her since they just got her today. He is requesting a call back, he works until 2:30 today and then works again tomorrow. [id number] Miscellaneous Notes* Telephone Encounter - Sammie Lantigua - 09/02/2023 12:08 PM EST Gareth an RN at [facility] called [phone] ext 2008, he states that they just got Gumaro from [place] and they are looking for her to follow up with a doctor. She broke her foot on 06/30/23 and she is still in a boot and is non weight bearing. He was looking to get information on Gumaro and to possibly get her scheduled. Gumaro is currently stating she does not want surgery, and heis going to check with her daughter. He doesn't know much about her since they just got her today. He is requesting a call back, he works until 2:30 today and then works again tomorrow. * Telephone Encounter - Billy Araya MA - 07/17/2023 9:27 AM EDT LVM to schedule with Dr. Ureña on Thursday at 1pm in [facility] or 9am in [place] if not already double booked. documented in this [facility]10-13-2023 Telephone encounter Note* Telephone Encounter - Billy Araya MA - 07/17/2023 9:27 AM EDT LVM to schedule with Dr. Ureña on Thursday at 1pm in [facility] or 9am in [place] if not already double booked. [id number] Hospital Discharge instructions Patient Education 07/03/2023 14:56:59 Urinary Tract Infection, Adult, Bwqr-cr-Nxwu Urinary Tract Infection, Adult A urinary tract infection (UTI) is an infection of any part of the urinary tract. The urinary tractincludes: The kidneys. The ureters. The bladder. The [...] Follow these instructions at home: Medicines Take fmnj-zve-ovkxinp and prescription medicines only as told by [...] small, thin tube to drain pee and notbeing able to control when you pee or poop. Treatment includes antibiotic medicines for germs. Drink enough fluid to keep your pee pale yellow. This information is not intended to replace advice given to you by your health care provider. Make sure you discuss any questions you have with your health care provider. Document Released: 03/09/2009 Document Revised: 09/08/2019 Document Reviewed: 03/31/2019 [employer] Patient Education [facility]. Follow Up Care 06/30/2023 15:11:52 With:LACI BREWER Address: [address] [place] [phone] When:3-5 days Comments:Please schedule a Follow up appt with your PCP after d/c. [facility] 09-29-2023 Note Discharge Instructions Thank you for allowing [facility] to assist you with your healthcare needs. The following is importantdischarge information regarding your hospital visit. Your Care Team Heather Hunt APRN Your Diagnosis Ankle pain-swelling Depression Fall Fibula fracture Hypertension Type 2 diabetes mellitus Urinary tract infection What to do next Scheduled Follow-Up Appointments Appointment Type When With Where [facility]/22[facility]2023 11:30 AM EST LACI BREWER [address] [id number] Follow Up Appointments Follow Up with LACI BREWER When Within 3-5 days Why: Please schedule a Follow up appt with your PCP after d/c. Where: [address] [place] [address] [phone] The Following Activity and Diet Have Been [...] Signed By - Ordered -- 07/03/23 14:47:00 EDT, HEATHER HUNT APRN-RODRIGO Transfer of Care Prognosis - Ordered -- [...] and or supplements as they may interact withyour home medications. What How Much When Why Instructions Last Dose New acetaminophen-hydrocodone (Lowes 325- 5 mg oral tablet) 1 tab(s) [...] part of the urinary tract. The urinary tractincludes: The kidneys. The ureters. The bladder. The [...] Follow these instructions at home: Medicines Take dxeg-ebv-sepmbkx and prescription medicines only as told by [...] small, thin tube to drain pee and notbeing able to control when you pee or poop. Treatment includes antibiotic medicines for germs. Drink enough fluid to keep your pee pale yellow. This information is not intended to replace advice given to you by your health care provider. Make sure you discuss any questions you have with your health care provider. Document Released: 03/09/2009 Document Revised: 09/08/2019 Document Reviewed: 03/31/2019 [employer] Patient Education 2020 [employer] Additional Information VACCINATE! IT SAVES LIVES! Members of the community who have not yet received the COVID-19 vaccine and would like to receive it can visit one of [facility] vaccine clinics. There are many vaccine clinic locations within the State. For locations and available times, please visit https://gettheshot.coronavirus.[place].gov/. It is important to note that some COVID mobile vaccine clinics are held outdoors and may be canceled in rainy or stormy conditions. To learn more about pediatric vaccinations (ages 5-11), we invite you to visit the [facility] webpage. [email or web address]/[email or web address] [email or web address] learn more about the COVID-19 vaccine, we invite you to visit the CDC website for a list of frequently asked questions.https://www.cdc.gov/coronavirus/2019-ncov/vaccines/faq.html [facility] Patient Portal Access Instructions: Stay connected with your healthcare team and access your personal medical information anytime with the [facility] Patient Portal. Please follow the directions below to create your [facility] account: 1.Access the email account you provided upon registration to the hospital/physician office.2.Look for an invitation email from [facility].3.Open the email and access the invitation link: AcceptInvitation to [facility].4.Fill in the required correa to create your account. To access your account, visit [facility]. Click the blue button labeled Access Patient Portal and then log in with the username and password that you created in the steps above. You will be able to view your test results, lab results, a summary of your visits, upcoming appointments and more. There is also a convenient messaging option where you can send secure messages to your p rovider. In addition, you will have the ability to download any documents or summaries to your computer and/or send the information securely to a physician. Remember that your healthcare information is confidential, so carefully consider who you will allowto register on the [facility] Patient Portal for access to your information. You can also access the [facility] Patient Portal on the [employer] calos. Simply click on Patient Portal and then log into your account. If you would like to receive a full copy of your medical records, please contact the [facility] Medical Records Department by calling [phone], Thursday through Thursday between 8 a.m. and 4:30 p.m. HOW TO SAFELY DISPOSE OF PRESCRIPTION MEDICATIONS Please use one of the following methods to safely dispose of your unused medications. 1.Use a drug disposal kit: the drug disposal pouch allows you to safely discard your old and unuseddrugs. Ask your nurse to give you one when you are discharged.2.Visit a local take-back location: Many local pharmacies and police departments have programs that collect old and unwanted prescriptiondrugs. Call your local pharmacy or go to http://Linki.EvolveMol/0X1Rx4b to find one close to you.3.Make use of household items: Use cat litter or old coffee grounds to dispose medications if other options arenot available. Mix your drugs with these household products, seal them in an airtight container andthrow it into the garbage. Call [facility]: [phone] to be sure your drugs can be [...] Patient Education Materials Urinary Tract Infection, Adult, Evgo-[id number] Medication Leaflets My discharge plan and instructions have been reviewed and explained to me and I,GUMARO BUSTAMANTE understand my current condition and have read and understand these discharge instructions. I have received a written copy of the plan/instructions. If I have questions, I am aware that I should contact my doctor. Patient/Gi Tech Signature: Date/Time: Relationship to Patient: Witness Name/Signature: Date/Time: [facility]09-29-2023 Note Date of Service 07/03/2023 Chief Complaint Fibula fracture Subjective 78-year-old female with past medical history significant for HTN, HLD, type 2 diabetes mellitus, morbid obesity. Next Patient presented to [facility] emergency department on 06/30/2023 with left ankle pain after sustaining a mechanical fall. She had an episode of bowel incontinence. She fell while attempting toclean the floor. In the emergency department x-ray [...] orthopedic consultation. Patient was seen by Dr. Roberto who recommends nonweightbearing status x6 weeks. Urine culture came back positive for Klebsiella pneumoniae. She has no leukocytosis. Afebrile and hemodynamically stable. Denies any urinary symptoms currently. Pain was not well controlled with Lowes alone. Objective Vitals and Measurements T: 36.6 C (Oral) TMIN: 36.6 C (Oral) TMAX: 37.0 C (Oral) HR: 75(Apical) RR: 20 BP: 126/48 SpO2: 93%WT: 130.0 kg Intake and Output 7AM Yesterday [...] Date: June 30, 2023 Verified By: NADIR MARTEL MD CLINICAL STATEMENT: IMPRESSION: Obliquely oriented fracture of the distal fibula extends through thesyndesmosis level. There is disruption of the ankle mortise with widening ofthe anterior tibiotalar joint space. No definite fracture seen of theposterior or medial malleoli but ligamentous injury is suspected XR Knee 1 or 2 Views Left Result Date: June 30, 2023 Verified By: NADIR MARTEL MD CLINICAL STATEMENT: IMPRESSION: Intact left knee arthroplasty Surgical wire projecting in the anterior joint space is similar to the priorstudy Assessment/Plan 1. Fibula fracture 2. Urinary tract infection 3. Type 2 diabetes mellitus 4. Hypertension Distal fibula fracture Per Dr. Roberto, nonweightbearing status for 6 weeks. Lowes for pain. Patient has a documented allergy to oxycodone. Add Toradol for pain control. Plan for transfer to SNF. UTI urine culture Is growing Klebsiella pneumoniae. Start cefazolin 1 g every 8 hours x7 days. Discontinue nitrofurantoin. Type 2 diabetes mellitus- Glucose goal 180 or less and avoid hypoglycemia. Corrective sliding scaleinsulin. ADA diet. HTN- SBP goal 140 or less. Continue home antihypertensives. DVT prophylaxis: Heparin subcutaneous Code Status: Full code Plan of care discussed with patient. All questions answered. Patient verbalizes understanding is agreeable to plan of care. This dictation was performed using voice recognition software and may include grammatical and/or spelling errors. Time Spent 36 minutes was spent in [id number] time and coordination of care for this patient, including but not limited to personally gathering history, examining the patient, reviewing labs and images and records, counseling patient and/or family about diagnosis and potential workup if applicable, as detailed above as well as discussing the case with patient's interdisciplinary team where applicable. Digitally Signed by HEATHER HUNT on 07/03/2023 01:33 PM [facility]09-28-2023 Note Date of Service 07/02/2023 Chief Complaint Fall Subjective 78-year-old female with past medical history significant for HTN, HLD, type 2 diabetes mellitus, morbid obesity. Next Patient presented to [facility] emergency department on 06/30/2023 with left ankle pain after sustaining a mechanical fall. She had an episode of bowel incontinence. She fell while attempting toclean the floor. In the emergency department x-ray [...] orthopedic consultation. Patient was seen by Dr. Roberto who recommends nonweightbearing status x6 weeks. Magnesium [...] HR: 77(Apical) RR: 20 BP: 150/49 SpO2: 94%WT: 128.4 kg Intake and Output 7AM Yesterday [...] Date: June 30, 2023 Verified By: NADIR MARTEL MD CLINICAL STATEMENT: IMPRESSION: Obliquely oriented fracture of the distal fibula extends through thesyndesmosis level. There is disruption of the ankle mortise with widening ofthe anterior tibiotalar joint space. No definite fracture seen of theposterior or medial malleoli but ligamentous injury is suspected XR Knee 1 or 2 Views Left Result Date: June 30, 2023 Verified By: NADIR MARTEL MD CLINICAL STATEMENT: IMPRESSION: Intact left knee arthroplasty Surgical wire projecting in the anterior joint space is similar to the priorstudy Assessment/Plan 1. Fibula fracture 2. Urinary tract infection 3. Type 2 diabetes mellitus 4. Hypertension Distal fibula fracture Per Dr. Roberto, nonweightbearing status for 6 weeks. Lowes for pain. Patient has a documented allergy to oxycodone. Plan for transfer to SNF. UTI Macrobid 50 mg 4 times daily. She is afebrile and hemodynamically stable. Has urinary frequency. No dysuria. Type 2 diabetes mellitus- Glucose goal 180 or less and avoid hypoglycemia. Corrective sliding scaleinsulin. ADA diet. HTN- SBP goal 140 or [...] by HEATHER HUNT on 07/02/2023 04:17 PM [facility]09-28-2023 Note. MICRO - Microbiology PROCEDURE: Urine Culture [*1] [...] Locations *1: This test was performed at: [facility], [address] [place] [address], [phone] , [facility] ([place])07-01-2023 Note Date of Service 07/01/2023 Chief Complaint Left ankle pain Subjective Patient seen and evaluated this morning while resting in bed. She states that she is still having alot of pain in her left ankle despite it being splinted in the ED yesterday. She does feel that theNorco is effective for her. She is waiting to see Dr. Roberto, orthopedics, for recommendation. Patient advised that, if nothing surgical can be done, she will likely have to go to a SNF until she can bear weight again on that leg. We still have to wait though for Dr. Roberto's recommendation but something to think about. Patient [...] DELONTE OLVERA, NADIR Romero CLINICAL STATEMENT: IMPRESSION: Obliquely oriented fracture of the distal fibula extends through the syndesmosis level.There is disruption of the ankle mortise with [...] fracture of distal fibula. *Consult Dr. Jose Roberto, orthopedics, for recommendation. *Patient is non weightbearing to left ankle. *Consult placed to PT and OT to evaluate and treat - holding off until seen by ortho. *creative services coordinator consulted for discharge planning. *Continue PO pain [...] case was discussed with collaborating physician, Dr. Jose Francisco Robb. Ordered: Time Spent 35 minutes spent reviewing past diagnostic tests, reviewing lab results, vital sign trends, medicalhistory, reviewing medications and ordering home medications, discussing plan of care with nursing,social welfare administrator, and therapy, examining patient, collaborating with physician, and documenting in chart. Digitally Signed by ROHAN MCDOWELL on 07/01/2023 04:17 PM [facility]09-26-2023 Note Date of Service 06/30/2023 Chief Complaint Patient fell at home and is complaining of left-sided ankle pain. History of Present Illness Patient is an 78-year-old female, who follows with Laci Brewer CNP with a past medical history significant for hypertension, hyperlipidemia, type 2 diabetes and morbid obesity, presented to [facility] emergency department with the chief complaint of fall. Patient states that she had diarrhea and was rushing to get to the bathroom. She became incontinent of stool on the way to the bathroom. After she was done, she cleaned up the floor but ended up slipping and falling injuring herleft ankle. Patient called EMS to bring her to the hospital to be evaluated. Patient denies any dizziness or lightheadedness preceding the fall and reiterates that it was mechanical. She further denies any fever, chills, cough, shortness of breath, chest pain, abdominal pain, nausea or dysuria. Sheis not sure why she had diarrhea today [...] ED physician did speak to Dr. Jose Roberto, orthopedics, who recommending splinting the left ankle as well as keeping patient nonweightbearing to theleft ankle. Patient lives alone and was referred to hospitalist service for admission for orthopedics consult as well as PT and OT evaluation. Patient will be transferred to medical surgical unit forobservation. We will consult Dr. Jose Roberto, orthopedics, for recommendation. We will continue PO pain medication and antiemetics. We will consult PT and OT to evaluate and treat. We will consult social welfare administrator for discharge planning. Check CBC and BMP [...] edema noted around left ankle. Left lower extremitydiscolored. Peripheral pulses palpable. No calf tenderness. Neurological: Patient is awake and alert to person, place and time. Following simple commands, moving all extremities. Lab Results No 36 Hour Lab Data Imaging Results and Diagnostics XR Ankle and Foot 6 Views Left Result Date: June 30, 2023 Verified By: NADIR MARTEL MD CLINICAL STATEMENT: IMPRESSION: Obliquely oriented fracture of the distal fibula extends through the syndesmosis level.There is disruption of the ankle mortise with widening of the anterior tibiotalar joint space. No definite fracture seen of the posterior or medial malleoli but ligamentous injury is suspected XR Knee 1 or 2 Views Left Result Date: June 30, 2023 Verified By: NADIR MARTEL MD CLINICAL STATEMENT: IMPRESSION: Intact left knee arthroplasty Surgical wire projecting in the anterior joint space is similar to the prior study Assessment/Plan 1. Ankle pain-swelling Acute, s/p mechanical fall at home *X-ray of left ankle reveals fracture of distal fibula. *Consult Dr. Jose Roberto, orthopedics, for recommendation. *Patient is non weightbearing to left ankle. *Consult placed to PT and OT to evaluate and treat. *creative services coordinator consulted for discharge planning. *Continue PO pain [...] case was discussed with collaborating physician, Dr. Jose Francisco Robb. 55 minutes spent reviewing past diagnostic tests, reviewing lab results, vital sign trends, medicalhistory, reviewing medications and ordering home medications, examining [...] 04/06/2019 Use: Never., 04/06/2019 Home/Environment Self Primary Software Test Specialist:., 04/06/2019 Nutrition/Health Type of diet: Regular. Appetite Good. Eating Difficulties None. Caffeine intake amount: Occ Coke. Two protein drink daily, it has caffeine of one cup of coffee., 08/19/2022 Substance Abuse Use: Never., 04/06/2019 Tobacco Tobacco Use: Former smoker, quit more than 30 days ago., 04/06/2019 Family History Arthritis: Sister. Asbestosis: Father. Cancer: Mother. Diabetes: Sister. Guillain [place] syndrome: Sister. Heart disease: Sister. Malignant neoplasm [...] by ROHAN MCDOWELL on 06/30/2023 04:51 PM [facility]09-26-2023 Note ORIGINAL EXAMINATION: 3 x-ray views of [...] ligamentous injury is suspected Interpreted by: Nadir Martel MD Preliminary Report By: Nadir Martel MD Electronically signed By Nadir Martel MD Dictated Date: 06/30/2023 3:55:41 PM Prelim Date: 06/30/2023 4:00:26 PM Sign Date: 06/30/2023 4:00:26 PM Ordering Provider: [address]26-2023 Note ORIGINAL EXAMINATION: TWO XRAY VIEWS OF [...] to the prior study Interpreted by: Nadir aMrtel MD Preliminary Report By: Nadir Martel MD Electronically signed By Nadir Martel MD Dictated Date: 06/30/2023 4:00:34 PM Prelim Date: 06/30/2023 4:01:46 PM Sign Date: 06/30/2023 4:01:46 PM Ordering Provider: [address]26-2023 Evaluation + Plan noteExtracted from: Title:History and Physical Author:ROHAN MCDOWELL APRN-WEEKEND RECEPTIONIST Date:06/30/23 1. Ankle pain-swelling Acute, s/p mechanical fall at home *X-ray of left ankle reveals fracture of distal fibula. *Consult Dr. Jose Roberto, orthopedics, for recommendation. *Patient is non weightbearing to left ankle. *Consult placed to PT and OT to evaluate and treat. *creative services coordinator consulted for discharge planning. *Continue PO pain [...] case was discussed with collaborating physician, Dr. Jose Francisco Robb. 55 minutes spent reviewing past diagnostic tests, reviewing lab results, vital sign trends, medical history, reviewing medications and ordering home medications, examining patient, reviewing PCP notes, past labs, collaborating with physician, and documenting in chart. Future Appointments Appointment Date:09/22/2023 11:30:00 AM Scheduled Provider:LACI BREWER Location:[facility] Appointment Type:PC OV [facility] evaluation + Plan note Future Appointments Appointment Date:07/24/2021 11:30:00 AM Scheduled Provider:LACI BREWER Location:[facility] Appointment Type: OV Future Scheduled Tests Laboratory* Vitamin D Level 01/22/21 * Vitamin D Level 11/06/20 [facility] Evaluation + Plan note Future Appointments Appointment Date:02/04/2022 11:00:00 AM Scheduled Provider:LACI BREWER Location:[facility] Appointment Type:PC OV Follow Up [facility] Evaluation + Plan note Future Appointments Appointment Date:02/10/2023 11:30:00 AM Scheduled Provider:LACI BREWER Location:[facility] Appointment Type:PC OV [facility] Evaluation note* Diagnosis Onset Date Resolution Status Closed fracture of left distal fibula acute Left ankle pain acute [facility] Work Phone: Evaluation note* Diagnosis Closed fracture of left ankle, initial encounter- [facility] Diagnosis Closed fracture of distal end of left fibula, unspecified fracture morphology, initial encounter Acute left ankle pain [facility]* Diagnosis Closed fracture of distal end of left fibula, unspecified fracture morphology, initial encounter- Primary documented in this encounter [facility] note* Diagnosis Closed fracture of distal end of left fibula, unspecified fracture morphology, initial encounter- Primary [facility]No assessment information availableWFulton [facility] Work Phone: Hospital course Narrative No data available for this section [facility] Hospital Discharge instructions No data available for this section [facility] Discharge instructions Additional Instructions Remove packing/have packing removed in 48 hours. Do not leave in longer. Continue vancomycin through your peripheral IV.[facility] Work Phone: Progress note No data available for this section [facility] Reason for referral (narrative)No reason for referral information availableWFulton County Health Center Work Phone: Summary Purpose Family History No Family History Records Found Advance Directives No Advanced Directives Records Found Advance Directive Response Recorded Date/ Time Name of Medical Power of Creamery Worker casey laureano February 06, 2024 3:49pm Living Will Yes February 06, 2024 3: 49pm Power of Creamery Worker Yes February 06, 2024 3:49pm Chief Complaint and Reason for Visit Chief Complaint LEFT FIBULA Room 1 LABWORK Reason for Visit Closed fracture of l eft distal fibula Left ankle pain Chief Complaint LEFT FIBULA Room 1 LABWORK RETIREMENT LAB WORK Reason for Visit Closed fracture of l eft distal fibula Left ankle pain Chief Complaint LABWORK RETIREMENT LAB WORK RETIREMENT LAB WORK Chief Complaint RETIREMENT LAB WOR K wound Chief Complaint Admit Date RETIREMENT LAB WORK September 14 5:00am RETIREMENT LAB WORK October 10, 2024 7:30pm RETIREMENT LAB WORK December 14, 2024 5 :00am LABWORK December 16, 2024 6:1 2am RETIREMENT LAB WORK January 02, 2025 7 :30pm Chief Complaint Admit Date RETIREMENT LAB WORK September 14 5:00am RETIREMENT LAB WORK October 10, 2024 7:30pm RETIREMENT LAB WORK December 14, 2024 5 :00am LABWORK December 16, 2024 6:1 2am RETIREMENT LAB WORK January 02, 2025 7 :30pm LABWORK January 09, 2025 12:4 0pm Chief Complaint Admit Date RETIREMENT LAB WORK September 14 5:00am RETIREMENT LAB WORK October 10, 2024 7:30pm RETIREMENT LAB WORK December 14, 2024 5 :00am LABWORK December 16, 2024 6:1 2am LABWORK December 26, 2024 7:0 8am RETIREMENT LAB WORK January 02, 2025 7 :30pm LABWORK January 09, 2025 12:4 0pm Chief Complaint Admit Date RETIREMENT LAB WORK October 10, 2024 7:30pm RETIREMENT LAB WORK December 14, 2024 5 :00am LABWORK December 16, 2024 6:1 2am LABWORK December 26, 2024 7:0 8am RETIREMENT LAB WORK January 02, 2025 7 :30pm LABWORK January 09, 2025 12:4 0pm RETIREMENT LAB WORK January 23, 2025 1 1:30pm Chief Complaint Admit Date RETIREMENT LAB WORK December 14, 2024 5 :00am LABWORK December 16, 2024 6:1 2am LABWORK December 26, 2024 7:0 8am RETIREMENT LAB WORK January 02, 2025 7 :30pm LABWORK January 09, 2025 12:4 0pm RETIREMENT LAB WORK January 23, 2025 1 1:30pm RETIREMENT LAB WORK February 07, 2025 3:30 am Reason for Referral Specialty Diagnoses / Procedures Referred By Contannita t Referred To Contact Physical Therapy Diagnoses Closed fracture of distal end of left fibula, unspecified fracture morphology, initial encounter Procedures CT OFFICE/OUTPATIENT NEW HIGH MDM 60 MINUTES Tete Trevino PA [address] [facility] [address] [place] [address] Referral ID Status Reason Start Date Expiration Date Visits Requested Visits Authorized [id number] Pending Review Eval and Treat 10/14/2023 04/11/2024 99 99 Additional Source Comments Care Team (unrecognized sect ion and content) Team Status: Active Member Role Status Dates Dr. Joaquin Thomas MD Family Provider Active Laci Brewer BUILDING WRECKER, BUILDING WRECKER-C Primary Care Provider Active Team Status: Inactive Member Role Status Dates Laci Brewer BUILDING WRECKER, BUILDING WRECKER-C Primary Care Provider, Referring Provider Active Prieto Meade MD Attending Provider Active Team Status: Inactive Member Role Status Dates Laci Brewer BUILDING WRECKER, BUILDING WRECKER-C Primary Care Provider Active Dr. Shlomo Umana MD Attending Provider Active Team Status: Inactive Member Role Status Dates Laci Brewer BUILDING WRECKER, BUILDING WRECKER-C Primary Care Provider Active Balwinder MARSHALL MD Attending Provider Active Driver'S Education Instructor Relationship Specialty Start Date End Date Balwinder Alves MD [address] [facility] [address] [place] [phone] PCP - General Family Medicine 10/14/23 Driver'S Education Instructor Relationship Specialty Start Date End Date Balwinder Alves MD [address] [facility] [address] [place] [id number] PCP - General Family Medicine 10/14/23 Driver'S Education Instructor Relationship Specialty Start Date End Date Balwinder Alves MD [address] [facility] [address] [place] [phone] PCP - General Family Medicine 10/14/23 Team Status: Inactive Member Role Status Dates Laci Brewer BUILDING WRECKER, BUILDING WRECKER-C Primary Care Provider Active Balwinder MARSHALL MD Attending Provider, Referring Pr ovider Active Team Status: Active Member Role Status Dates Dr. Joaquin Thomas MD Family Provider Active Dr. Balwinder Alves MD Primary Care Provider Active Team Status: Inactive Member Role Status Dates Omid Montiel MD Emergency Provider Active Dr. Balwinder Alves MD Primary Care Provider Active Team Status: Active Member Role Status Dates Dr. Joaquin Thomas MD Family Provider Active Balwinder MARSHALL MD Primary Care Provider Active Team Status: Inactive Member Role Status Dates Balwinder MARSHALL MD Primary Care Provider Active Start: September 14, 2024 End: September 14, 2024 Balwinder MARSHALL MD Attending Provider Active Start: September 14, 2024 End: September 14, 2024 Team Status: Active Member Role Status Dates Balwinder MARSHALL MD Primary Care Provider Active Start: October 10, 2024 Balwinder MARSHALL MD Attending Provider Active Start: October 10, 2024 Balwinder MARSHALL MD Referring Provider Active Start: October 10, 2024 Team Status: Inactive Member Role Status Dates Balwinder MARSHALL MD Primary Care Provider Active Start: December 14, 2024 End: December 14, 2024 Balwinder MARSHALL MD Attending Provider Active Start: December 14, 2024 End: December 14, 2024 Team Status: Active Member Role Status Dates Balwinder MARSHALL MD Primary Care Provider Active Start: December 16, 2024 Balwinder MARSHALL MD Attending Provider Active Start: December 16, 2024 Team Status: Active Member Role Status Dates Balwinder MARSHALL MD Primary Care Provider Active Start: December 26, 2024 Balwinder MARSHALL MD Attending Provider Active Start: December 26, 2024 Team Status: Active Member Role Status Dates Balwinder MARSHALL MD Primary Care Provider Active Start: January 02, 2025 Balwinder MARSHALL MD Attending Provider Active Start: January 02, 2025 Balwinder MARSHALL MD Referring Provider Active Start: January 02, 2025 Team Status: Inactive Member Role Status Dates Balwinder MARSHALL MD Primary Care Provider Active Start: January 02, 2025 End: January 02, 2025 Balwinder MARSHALL MD Attending Provider Active Start: January 02, 2025 End: January 02, 2025 Balwinder MARSHALL MD Referring Provider Active Start: January 02, 2025 End: January 02, 2025 Team Status: Inactive Member Role Status Dates Balwinder MARSHALL MD Primary Care Provider Active Start: December 16, 2024 End: December 16, 2024 Balwinder MARSHALL MD Attending Provider Active Start: December 16, 2024 End: December 16, 2024 Team Status: Inactive Member Role Status Mame MARSHALL MD Primary Care Provider Active Start: January 09, 2025 End: January 09, 2025 Dr. Balwinder Alves MD Attending Provider Active Start: January 09, 2025 End: January 09, 2025 Team Status: Inactive Member Role Status Mame MARSHALL MD Primary Care Provider Active Start: December 26, 2024 End: December 26, 2024 Balwindre MARSHALL MD Attending Provider Active Start: December 26, 2024 End: December 26, 2024 Team Status: Inactive Member Role Status Mame MARSHALL MD Primary Care Provider Active Start: January 23, 2025 End: January 23, 2025 Balwinder MARSHALL MD Attending Provider Active Start: January 23, 2025 End: January 23, 2025 Balwinder MARSHALL MD Referring Provider Active Start: January 23, 2025 End: January 23, 2025 Team Status: Inactive Member Role Status Mame MARSHALL MD Primary Care Provider Active Start: February 07, 2025 End: February 07, 2025 Balwinder MARSHALL MD Attending Provider Active Start: February 07, 2025 End: February 07, 2025 Team Status: Active Member Role Status Mame MARSHALL MD Primary Care Provider Active Start: March 02, 2025 Balwinder MARSHALL MD Attending Provider Active Start: March 02, 2025 INFORMATION SOURCE (unrecogn ized section and content) DATE CREATED AUTHOR 07/23/2023 [facility] ([place]) DATE CREATED AUTHOR AUTHOR'S ORGANIZ ATION 12/10/2023 [facility] DATE CREATED AUTHOR AUTHOR'S ORGANIZ ATION 03/11/2025 [facility] Reason for Visit (unrecogniz ed section and content) Reason Onset Date Comments Other 07/17/2023 Appt Reason Comments Follow-up Left distal fibula f x DOI 07/02/23 Reason Comments Follow-up L fibula fx Goals (unrecognized section and content) Goals may be documented in a n alternate section FOR RECORDS PERTAINING TO PATIENTS WHO ARE [...] BE BASED ON THE PRIMARY CLINICAL RECORDS. [facility] provides no warranty or guarantee of the accuracy or completeness of information in this document.
--- OUTSIDE RECORDS SUMMARY | 2025-03-15 03:59 | XMS RPT_ITS | CCD ---
Author Organization [facility] Inform ion [facility] Care Team Providers Care Director Of Exhibits Name Role Phone OSMAN PERDUE, LACI Primary Care Physician [phone] OSMAN PERDUE, LACI Primary Care Unavailabl e OSMAN PERDUE, LACI Attending Unavailabl e OSMAN CONSIGNEE-MORTGAGE PROCESSOR, LACI Primary Care Unavailabl e OSMAN CONSIGNEE-MORTGAGE PROCESSOR, LACI Attending Unavailabl e JULY PERDUE, ROHAN Romero Attending Unavaila ble OSMAN PERDUE, LACI Primary Care UnavailJOSE FRANCISCO Matos DO Referring Unavailable JOSE ROBERTO DO Consulting Unavailable JULY BENTON-RODRIGO, ROHAN Romero Admitting Unavaila ble Unavailable Primary Care Provider Unavailluisa Brewer HEALTH SERVICES ADMINISTRATOR, HEALTH SERVICES ADMINISTRATOR-C Laci Primary Care Provider [phone] Osman HEALTH SERVICES ADMINISTRATOR, HEALTH SERVICES ADMINISTRATOR-C Laci Referring Provider [phone] MD Prieto Meade Attending Provider Dr. Shlomo Umana Attending Provider Balwinder Alves MD Primary Care Provider [phone] ZANDER UREÑA Referring Unavailable TETE TREVINO Attending [...] Alves OLS, Balwinder K Primary Care Unavailable Laves OLS, Balwinder K Attending Unavailable Alves OLS, [...] K Attending Unavailable Alves OLS, Balwinder K Attending Unavailable [...] Translations: [cephalexin] Drug Allergy 07-05-20 23 Hives [facility] Comment on above: Immediate rash / hiv es; patient seen in ER after last administration of Keflex (12 sources) Adhesive Tape; Translations: [adhesive tape] Allergy to substance 07-16-20 blister [facility] (14 sources) Trimethoprim Drug Allergy 11-01-19 21 Shortness of breath [facility] (3 sources) augmenten Allergy to substance 07-16-20 [facility] (4 sources) Aluminum aspirin Drug Allergy 07-05-20 23 Unknown [facility] (4 sources) dapagliflozin Drug Allergy 07-05-20 23 [facility] (4 sources) Amoxicillin-Pot Clavulanate Drug Allergy 07-05-20 23 Rash [facility] (4 sources) Diphenhydramine-Acet aminophen Drug Allergy 07-05-20 23 [facility] (3 sources) Acetaminophen / oxyCODONE Drug Allergy 10-14-19 24 [facility] (3 sources) Sulfamethoxazole Allergy to substance 11-01-19 21 [facility] (3 sources) Wound Dressing Adhesive Drug Allergy 07-16-20 23 [facility] (8 sources) Amoxicillin Drug Allergy 02-06-20 24 [facility] (8 sources) Clavulanate Drug Allergy 02-06-20 24 [facility] (8 sources) Vancomycin Drug Allergy 02-06-20 24 [...] arm, # 9 mL, 0 Refill(s), Pharmacy: [facility]/pharmacy #[id number], Type 2 diabetes mellitus, 168.91, cm, 02/18/23 11:25:00 EDT, Height, kg, 02/18/23 11:25:00 EDT, Dosing Weight Start Date: 05/19/23 Stop Date: 08/17/23 Status: Ordered acetaminophen 500 mg oral tablet (11 sources) Start: 07-22-2023 [facility] Pain Relief Extra St 500 MG [...] 16, 2023 12:00am Start: 07-03-2023 End: 07-06-2023 [place] 325- 5 mg oral tablet Dose = [...] qDay, # 180 tab(s), 3 Refill(s), Pharmacy: [facility]/pharmacy #[id number], 167.6, cm, 11/20/22 11:29:00 EST, Height, kg, 11/20/22 11:29:00 EST, Dosing Weight Start Date: 11/20/22 Status: Ordered Start: 11-13-2021 calcium (as ca rbonate) 600 mg oral tablet Dose : 1,200 mg = 2 tab(s), Oral, qDay, # 180 tab(s), 3 Refill(s), Pharmacy: [facility]/pharmacy #[id number], 167.6, cm, 11/05/21 9:58:00 EST, Height, [...] TID, # 270 cap(s), 0 Refill(s), Pharmacy: [facility]/pharmacy #[id number], Diabetic neuropathy, 168.91, cm, 02/18/23 11:25:00 EDT, Height, 127.7, kg, 02/18/23 11:25:00 EDT, Dosing Weight Start Date: 06/10/23 Stop Date: 09/08/23 Status: Ordered Start: 11-20-2022 End: 02-18-2023 gabapentin 400 mg oral capsu le Dose : 400 mg = 1 cap(s), Oral, TID, # 270 cap(s), 0 Refill(s), Pharmacy: [facility]/pharmacy #[id number], Diabetic neuropathy, 167.6, cm, 11/20/22 11:29:00 EST, Height, 134, kg, 11/20/22 11:29:00 EST, Dosing Weight Start Date: 11/20/22 Stop Date: 02/18/23 Status: Ordered Start: 10-25-2021 End: 01-23-2022 gabapentin 400 mg oral capsu le Dose : 400 mg = 1 cap(s), Oral, TID, dose change, # 270 cap(s), 0 Refill(s), Pharmacy: [facility]/pharmacy #[id number], Diabetic neuropathy, 166.37, cm, 07/24/21 11:31:00 EDT, Height, 134.5, kg, 07/24/21 11:31:00 EDT, Dosing Weight Start Date: 10/25/21 Stop Date: 01/23/22 Status: Ordered Start: 04-23-2021 End: 07-22-2021 gabapentin 400 mg oral capsu le Dose : 400 mg = 1 cap(s), Oral, TID, dose change, # 270 cap(s), 0 Refill(s), Pharmacy: [facility]/pharmacy #[id number], Diabetic neuropathy, 167.6, cm, 04/23/21 11:30:00 [...] E11.9, # 4 EA, 3 Refill(s), [id number], Diabetes, 166.37, cm, 07/24/21 11:31:00 EDT, Height, kg, 07/24/21 11:31:00 EDT, Dosing Weight Start Date: 07/24/21 Stop Date: 07/19/22 Status: Ordered Start: 05-14-2021 inject 1 dose by sub cutaneous injection twice daily Lantus Solostar Pen 100 units/mL 3 mL Pen Dose : 30 unit(s) =, Subcutaneous, BID, EA=BOX OF 5 PENS diabetes E11.9, # 4 EA, 3 Refill(s), [id number], 167.6, cm, 04/23/21 11:30:00 EDT, Height, kg, 04/23/21 11:30:00 EDT, Dosing Weight Start Date: 05/14/21 Status: Ordered losartan potassium 100 mg oral tablet (15 sources) Angiotensin 2 Receptor Ysabel Start: 02-18-2023 losartan 100 mg oral tablet Dose : 100 mg = 1 tab(s), Oral, Daily, # 90 tab(s), 1 Refill(s), Pharmacy: [facility]/pharmacy #[id number], Hypertension, 168.91, cm, 02/18/23 11:25:00 EDT, Height, kg, 02/18/23 11:25:00 EDT, Dosing Weight Start Date: 02/18/23 Status: Ordered Start: 02-25-2022 losartan 100 m g oral tablet Dose : 100 mg = 1 tab(s), Oral, Daily, # 90 tab(s), 3 Refill(s), Pharmacy: [facility]/pharmacy #[id number], Hypertension, 167.6, cm, 02/04/22 11:02:00 EDT, Height, kg, 02/04/22 11:02:00 EDT, Dosing Weight Start Date: 02/25/22 Status: Ordered Start: 07-24-2021 losartan 100 m g oral tablet Dose : 100 mg = 1 tab(s), Oral, Daily, In absence of PCP, # 90 tab(s), 1 Refill(s), Pharmacy: [facility]/pharmacy #[id number], Hypertension, 166.37, cm, 07/24/21 11:31:00 EDT, Height, kg, 07/24/21 11:31:00 EDT, Dosing Weight Start Date: 07/24/21 Status: Ordered Start: 04-23-2021 losartan 100 m g oral tablet Dose : 100 mg = 1 tab(s), Oral, Daily, In absence of PCP, # 90 tab(s), 1 Refill(s), Pharmacy: [facility]/pharmacy #[id number], Hypertension, 167.6, cm, 04/23/21 11:30:00 EDT, [...] 0 Refill(s), 07/14/23 1:08:00 PM EDT, Pharmacy: [facility]/pharmacy #[id number], 160, cm, 06/30/23 18:36:00 EDT, Height, kg, 06/30/23 18:36:00 EDT, Dosing Weight Start Date: 07/04/23 Stop Date: 07/14/23 Status: Ordered Pen needles 8 mm (1 source) Start: 04-23-2021 Pen needles 8 mm See Instructions, Using Twice Daily. ONE BOX OF 100. BD UF 8mm 31 G (short) qs 3 month supply Diabetes Mellitus E11.9, # 2 EA, 0 Refill(s), [id number], 167.6, cm, 04/23/21 11:30:00 EDT, Height, [...] sites, # 9 mL, 0 Refill(s), [id number], Diabetes Diabetes mellitus, 167.6, cm, 11/20/22 [...] qHS, # 90 tab(s), 3 Refill(s), [id number], Type 2 diabetes mellitus, 167.6, cm, 08/19/22 12:13:00 EST, Height, kg, 08/19/22 12:13:00 EST, Dosing Weight Start Date: 08/20/22 Status: Ordered Start: 08-28-2021 simvastatin 5 mg oral tablet Dose : 5 mg = 1 tab(s), Oral, qHS, # 90 tab(s), 3 Refill(s), Pharmacy: [facility]/pharmacy #[id number], Type 2 diabetes mellitus, 166.37, cm, [...] qHS, # 90 tab(s), 3 Refill(s), Pharmacy: [facility]/pharmacy #[id number], Insomnia, 168.91, cm, 02/18/23 11:25:00 EDT, Height, kg, 02/18/23 11:25:00 EDT, Dosing Weight Start Date: 02/18/23 Status: Ordered Start: 05-01-2022 traZODone 100 mg oral tablet Dose : 100 mg = 1 tab(s), Oral, qHS, # 90 tab(s), 3 Refill(s), Pharmacy: [facility]/pharmacy #[id number], Insomnia, 167.6, cm, 02/04/22 11:02:00 EDT, Height, kg, 02/04/22 11:02:00 EDT, Dosing Weight Start Date: 05/01/22 Status: Ordered Start: 07-24-2021 traZODone 100 mg oral tablet Dose : 100 mg = 1 tab(s), Oral, qHS, # 90 tab(s), 1 Refill(s), Pharmacy: [facility]/pharmacy #[id number], Insomnia, 166.37, cm, 07/24/21 11:31:00 EDT, Height, kg, 07/24/21 11:31:00 EDT, Dosing Weight Start Date: 07/24/21 Status: Ordered Start: 04-23-2021 traZODone 100 mg oral tablet Dose : 100 mg = 1 tab(s), Oral, qHS, # 90 tab(s), 1 Refill(s), Pharmacy: [facility]/pharmacy #[id number], Insomnia, 167.6, cm, 04/23/21 11:30:00 EDT, [...] Daily, # 90 cap(s), 3 Refill(s), Pharmacy: [facility]/pharmacy #[id number], 166.37, cm, 07/24/21 11:31:00 EDT, Height, kg, 07/24/21 11:31:00 EDT, Dosing Weight Start Date: 09/11/21 Status: Ordered Vitamin D3 400 intl units (1 0 mcg) oral tablet (1 source) Start: 04-23-2021 Vitamin D3 400 intl units (10 mcg) oral tablet Dose : 20 mcg = 2 tab(s), Oral, qDay, # 180 tab(s), 3 Refill(s), Pharmacy: [facility]/pharmacy #[id number], Vitamin D deficiency, 167.6, cm, 04/23/21 11:30:00 EDT, Height, kg, 04/23/21 11:30:00 EDT, Dosing Weight Start Date: 04/23/21 Status: Ordered Vitamin D3 50 mcg (2000 intl units) oral tablet (2 sources) Start: 08-20-2022 Vitamin D3 50 mcg (2000 intl units) oral tablet Dose : 2,000 unit(s) = 1 tab(s), Oral, Daily, dose increase, # 90 tab(s), 3 Refill(s), Pharmacy: [facility]/pharmacy #[id number], Vitamin D deficiency, 167.6, cm, 08/19/22 [...] pain/diarrhea, # 120 packet(s), 0 Refill(s), Pharmacy: [facility]/pharmacy #4605, Diarrhea, 167.6, cm, 02/04/22 11:02:00 EDT, [...] pain/diarrhea, # 120 packet(s), 0 Refill(s), Pharmacy: [facility]/pharmacy #[id number], Diarrhea, 167.6, cm, 02/04/22 11:02:00 EDT, [...] 11-15-2019 Chronic Other aftercare (1 source) Other senior living (current) drug therapy; Translations: [Other senior living (current) drug therapy] Onset: 01-12-2025 Episodic Other [...] 0157. UNABLE TO CONFIRM, TESTING DISCONTINUED AT [facility]. Urine Culture Copy of report sent to Infection Control Printer [id number] 03/04/25 Savi MENDEZ. Urine Culture RESULTS CALLED TO XAVIER Flowers 03/06/25 1412 Lorrie Patterson. REPORT READ BACK BY . Urine Culture Urine Culture ESBL Escherichia coli [place] Count 80,000-100,000 MARKER ESBL producing OrganismA MARKER [...] [facility] [address] [place], [address] Bilirubin Test strip Ql (U)O [...] [facility] [address] [place], [address] Clarity (U) Sl. Cloudy Normal Clear [facility] Comment on above: Order Comment: 102.2 Performed By: #### L 100.0500, L500.2500 #### [facility] [address] [place], [address] Color (U) Yellow Normal Yellow [facility] Comment on above: Order Comment: 102.2 Performed By: #### L 100.0500, L500.2500 #### [facility] [address] [place], [address] GLUCOSE, UR Normal Normal Normal [facility] Comment on above: Order Comment: 102.2 Performed By: #### L 100.0500, L500.2500 #### [facility] [address] [place], [address] KETONE UR Negative Normal Negative [facility] Comment on above: Order Comment: 102.2 Performed By: #### L 100.0500, L500.2500 #### [facility] [address] [place], [address] LEUK ESTERASE 500 /ul Abnormal Negative [facility] Comment on above: Order Comment: 102.2 Performed By: #### L 100.0500, L500.2500 #### [facility] [address] [place], [address] Nitrite Ql (U) Positive Abnormal Negative [facility] Comment on above: Order Comment: 102.2 Performed By: #### L 100.0500, L500.2500 #### [facility] [address] [place], [address] OCCULT BLOOD-UR 50 /ul Abnormal Negative [facility] Comment on above: Order Comment: 102.2 Performed By: #### L 100.0500, L500.2500 #### [facility] [address] [place], [address] pH UR 6.0 Normal 5.0 - 8.0 [facility] Comment on above: Order Comment: 102.2 Performed By: #### L 100.0500, L500.2500 #### [facility] [address] [place], [address] PROT DIPSTX 30 mg/dl Abnormal Negative [facility] Comment on above: Order Comment: 102.2 Performed By: #### L 100.0500, L500.2500 #### [facility] [address] [place], [address] SP.GR. DIPSTX 1.010 Normal 1.002-1.030 [facility] Comment on above: Order Comment: 102.2 Performed By: #### L 100.0500, [id number] #### [facility] [address] [place], [address] UROBILI Normal Normal Normal [facility] Comment on above: Order Comment: 102.2 Performed By: #### L 100.0500, L500.2500 #### [facility] [address] [place], [address] Urine clarityOrdered By: Javed Alves on 03-02-2025 [...] 03-02-2025 Urobilinogen Ql (U) Normal mg/dl Normal [facility] Urine Cultureon 02-10-2025 [facility] Copy of report sent to Infection Control Printer [id number] 02/09/25 08Amari MENDEZ. Urine Culture RESULTS CALLED TO AUSTEN GARCIA 02/09/25 0813 Alesia Barrera. REPORT READ BACK SAME. Urine Culture Urine Culture Urine Culture ESBL Escherichia coli [place] Count >100,000 MARKER ESBL producing OrganismA MARKER [...] [facility] [address] [place] [address]. [place], [address] Bilirubin Test strip Ql (U)O rdered By: [...] [facility] [address] [place], [address] Color (U) Yellow Normal Yellow [facility] Comment on above: Order Comment: 102.2 Performed By: #### L 100.0500, L500.2500 #### [facility] [address] [place], [address] BILIRUBIN URINE Negative Normal Negative [facility] Comment on above: Order Comment: 102.2 Performed By: #### L 100.0500, L500.2500 #### [facility] [address] [place], [address] GLUCOSE, UR Normal Normal Normal [facility] Comment on above: Order Comment: 102.2 Performed By: #### L 100.0500, [id number] #### [facility] [address] [place], [address] KETONE UR Negative Normal Negative [facility] Comment on above: Order Comment: 102.2 Performed By: #### L 100.0500, [id number] #### [facility] [address] [place], [address] LEUK ESTERASE 500 /ul Abnormal Negative [facility] Comment on above: Order Comment: 102.2 Performed By: #### L 100.0500, L500.2500 #### [facility] [address] [place], [address] Nitrite Ql (U) Positive Abnormal Negative [facility] Comment on above: Order Comment: 102.2 Performed By: #### L 100.0500, L500.2500 #### [facility] [address] [place], [address] OCCULT BLOOD-UR 25 /ul Abnormal Negative [facility] Comment on above: Order Comment: 102.2 Performed By: #### L 100.0500, L500.2500 #### [facility] [address] [place], [address] pH UR 6.5 Normal 5.0 - 8.0 [facility] Comment on above: Order Comment: 102.2 Performed By: #### L 100.0500, L500.2500 #### [facility] [address] [place], [address] PROT DIPSTX 15 mg/dl Abnormal Negative [facility] Comment on above: Order Comment: 102.2 Performed By: #### L 100.0500, L500.2500 #### [facility] [address] [place], [address] SP.GR. DIPSTX 1.005 Normal 1.002-1.030 [facility] Comment on above: Order Comment: 102.2 Performed By: #### L 100.0500, L500.2500 #### [facility] [address] [place], [address] UROBILI Normal Normal Normal [facility] Comment on above: Order Comment: 102.2 Performed By: #### L 100.0500, L500.2500 #### [facility] [address] [place], [address] Urine clarityOrdered By: Javed Alves on 02-07-2025 [...] 02-07-2025 Urobilinogen Ql (U) Normal mg/dl Normal [facility] Urine Cultureon 01-27-2025 [facility] STRAIGHT CATH #1 Possible E.coli 0157. Confirmation testing unable to be performed, test discontinued at [facility]. Urine Culture [facility] 01/27/25 1041 Lorrie Patterson. REPORT READ BACK BY . Urine Culture Copy of report sent to Infection Control Printer [id number] 01/27/25 1041 ESSENCE. Urine Culture ESBL Escherichia coli [place] Count 80,000-100,000 MARKER ESBL producing OrganismA MARKER ESBL producing OrganismA [place] Count 50,000-80,000 Proteus mirabilis Amikacin Islt PREM [...] [facility] [address] [place], [address] Urinalysis, Completeon 01-24 BILIRUBIN URINE Negative Normal Negative [facility] Comment on above: Order Comment: 102.2 Performed By: #### L 100.0500, L500.2500 #### [facility] [address] [place], [address] Clarity (U) Sl. Cloudy Normal Clear [facility] Comment on above: Order Comment: 102.2 Performed By: #### L 100.0500, L500.2500 #### [facility] [address] [place], [address] Color (U) Yellow Normal Yellow [facility] Comment on above: Order Comment: 102.2 Performed By: #### L 100.0500, L500.2500 #### [facility] [address] [place], [address] GLUCOSE, UR Normal Normal Normal [facility] Comment on above: Order Comment: 102.2 Performed By: #### L 100.0500, L500.2500 #### [facility] [address] [place], [address] KETONE UR Negative Normal Negative [facility] Comment on above: Order Comment: 102.2 Performed By: #### L 100.0500, L500.2500 #### [facility] [address] [place], [address] LEUK ESTERASE 500 /ul Abnormal Negative [facility] Comment on above: Order Comment: 102.2 Performed By: #### L 100.0500, L500.2500 #### [facility] [address] [place], [address] Nitrite Ql (U) Positive Abnormal Negative [facility] Comment on above: Order Comment: 102.2 Performed By: #### L 100.0500, L500.2500 #### [facility] [address] [place], [address] OCCULT BLOOD-UR 50 /ul Abnormal Negative [facility] Comment on above: Order Comment: 102.2 Performed By: #### L 100.0500, L500.2500 #### [facility] [address] [place], [address] pH UR 6.5 Normal 5.0 - 8.0 [facility] Comment on above: Order Comment: 102.2 Performed By: #### L 100.0500, L500.2500 #### [facility] [address] [place], [address] PROT DIPSTX 15 mg/dl Abnormal Negative [facility] Comment on above: Order Comment: 102.2 Performed By: #### L 100.0500, L500.2500 #### [facility] [address] [place], [address] SP.GR. DIPSTX 1.010 Normal 1.002-1.030 [facility] Comment on above: Order Comment: 102.2 Performed By: #### L 100.0500, L500.2500 #### [facility] [address] [place], [address] UROBILI Normal Normal Normal [facility] Comment on above: Order Comment: 102.2 Performed By: #### L 100.0500, L500.2500 #### [facility] [address] [place], [address] Bilirubin Test strip Ql (U)O rdered By: Balwinder Alves on 01-23-2025 Bilirubin Ql (U) Negative Negative [facility] Epithelial cells.squamous LM Ql (Urine sed)Ordered By: Balwinder Alves on 01-23-2025 Epithelial cells.squamous LM.HPF (Urine sed) [#/Area] 0 /[HPF] 5-10 [facility] Glucose Ql (U)Ordered By: Jen Alves on 01-23-2025 Urine Glucose (UA) Normal mg/dl Normal [facility] Ketones Test strip Ql (U)Ord ered By: [...] Mucus Ql (Urine sed) 0 SEEN /hpf [facility] Nitrite Test strip Ql (U)Ord [...] Urine Occult Blood 50 /ul High Negative [facility] Urine clarityOrdered By: Javed Alves on [...] 01-23-2025 Urobilinogen Ql (U) Normal mg/dl Normal [facility] Urobilinogen Ql (U)Ordered B y: Balwinder Alves on 01-23-2025 Urine Urobilinogen Normal mg/dl Normal [facility] White blood cell countOrdere d By: Balwinder Alves on 01-23-2025 Urine WBC 5-10 SEEN /hpf 0-5 [facility] White blood cell count 5-10 SEEN /hpf 0-5 [facility] Urine Cultureon 01-13-2025 [facility] #1 POSSIBLE ECOLI 0157. Unable to send to [facility] for confirmation testing due to new [facility] policies regarding serotyping and virulence profiling. Urine Culture Copy of report sent to Infection Control Printer [id number] 01/11/25 1618 ANDREA. ESBL Escherichia coli [place] Count 50,000-80,000 MARKER ESBL producing OrganismA MARKER ESBL producing OrganismA [place] Count 50,000-80,000 Escherichia coli [place] Count 50,000-80,000 ESBL Escherichia coli: REACTION Proteus [...] [facility] [address] [facility] [place], [address] Bilirubin Test strip Ql (U)O rdered By: Balwinder Alves on 01-09-2025 Bilirubin Ql (U) Negative Negative [facility] Glucose Ql (U)Ordered By: Jen Alves on 01-09-2025 Urine Glucose (UA) Normal mg/dl Normal [facility] Ketones Test strip Ql (U)Ord ered By: [...] [facility] [address] [place], [address] Clarity (U) Cloudy Normal Clear [facility] Comment on above: Order Comment: ALFA TER SPECIMEN Performed By: #### M , L4.2010 #### [facility] [address] [place], [address] Color (U) Yellow Normal Yellow [facility] Comment on above: Order Comment: ALFA TER SPECIMEN Performed By: #### M , L4.2010 #### [facility] [address] [place], [address] GLUCOSE, UR Normal Normal Normal [facility] Comment on above: Order Comment: ALFA TER SPECIMEN Performed By: #### M , L4 #### [facility] [address] [place], [address] KETONE UR Negative Normal Negative [facility] Comment on above: Order Comment: ALFA TER SPECIMEN Performed By: #### M , L4 #### [facility] [address] [place], [address] LEUK ESTERASE 500 /ul Abnormal Negative [facility] Comment on above: Order Comment: ALFA TER SPECIMEN Performed By: #### M , L4 #### [facility] [address] [place], [address] Nitrite Ql (U) Positive Abnormal Negative [facility] Comment on above: Order Comment: ALFA TER SPECIMEN Performed By: #### M , L4 #### [facility] [address] [place], [address] OCCULT BLOOD-UR 150 /ul Abnormal Negative [facility] Comment on above: Order Comment: ALFA TER SPECIMEN Performed By: #### M , L4 #### [facility] [place] [facility] [address] [place], [address] pH UR 6.5 Normal 5.0 - 8.0 [facility] [place] [facility] Comment on above: Order Comment: ALFA TER SPECIMEN Performed By: #### M 100.2200, L4.2010 #### [facility] [place] [facility] [address] [place], [address] PROT DIPSTX 30 mg/dl Abnormal Negative [facility] Comment on above: Order Comment: ALFA TER SPECIMEN Performed By: #### M 100.2200, L400.2010 #### [facility] [place] [facility] [address] [place], [address] SP.GR. DIPSTX 1.010 Normal 1.002-1.030 [facility] Comment on above: Order Comment: ALFA TER SPECIMEN Performed By: #### M 100.0, L4.2010 #### [facility] [place] [facility] [address] [place], [address] UROBILI Normal Normal Normal [facility] Comment on above: Order Comment: ALFA TER SPECIMEN Performed By: #### M 100.2199, L4.2010 #### [facility] [place] [facility] [address] [place], [address] Urine blood detectionOrdered By: Balwinder Alves on 01-09-2025 Urine Occult Blood 150 /ul High Negative [facility] Urine clarityOrdered By: Javed Alves on [...] 01-09-2025 Urobilinogen Ql (U) Normal mg/dl Normal [facility] Urobilinogen Ql (U)Ordered B y: Balwinder Alves on 01-09-2025 Urine Urobilinogen Normal mg/dl Normal [facility] Urine Cultureon 01-07-2025 URC #2 Possible E.coli 0157. Unable to send to [facility] for confirmation testing due to new [facility] policies regarding serotyping and virulence profiling. Urine Culture Copy of report sent to Infection Control Printer [id number] 01/06/25 1319 ANDREA. Urine Culture RESULTS CALLED TO TRISH BOYCE 01/06/25 1321 Alesia Barrera. REPORT READ BACK . Proteus mirabilis [place] Count 50,000-80,000 ESBL Escherichia coli ESBL Escherichia [...] [facility] [address] [place], [address] Urinalysis, Routine (Dipstic k)on 01-03-2025 BILIRUBIN URINE Negative Normal Negative [facility] Comment on above: Order Comment: CLEAN CATCH Performed By: #### M , L4 #### [facility] [address] [place], [address] Clarity (U) Sl. Cloudy Normal Clear [facility] Comment on above: Order Comment: CLEAN CATCH Performed By: #### M #### [facility] [place] [facility] [address] [place], [address] Color (U) Yellow Normal Yellow [facility] Comment on above: Order Comment: CLEAN CATCH Performed By: #### M L4 #### [facility] [place] [facility] [address] [place], [address] GLUCOSE, UR Normal Normal Normal [facility] Comment on above: Order Comment: CLEAN CATCH Performed By: #### M 100 L4 #### [facility] [place] [facility] [address] [place], [address] KETONE UR Negative Normal Negative [facility] [place] [facility] Comment on above: Order Comment: CLEAN CATCH Performed By: #### M 100, L4 #### [facility] [place] [facility] [address] [place], [address] LEUK ESTERASE 500 /ul Abnormal Negative [facility] [place] [facility] Comment on above: Order Comment: CLEAN CATCH Performed By: #### M 100, L4 #### [facility] [place] [facility] [address] [place], [address] Nitrite Ql (U) Positive Abnormal Negative [facility] Comment on above: Order Comment: CLEAN CATCH Performed By: #### M 100.2200, L400.2010 #### [facility] [place] [facility] [address] [place], [address] OCCULT BLOOD-UR 150 /ul Abnormal Negative [facility] [place] [facility] Comment on above: Order Comment: CLEAN CATCH Performed By: #### M 100.2199, L4.2010 #### [facility] [place] [facility] [address] [place], [address] pH UR 6.5 Normal 5.0 - 8.0 [facility] [place] [facility] Comment on above: Order Comment: CLEAN CATCH Performed By: #### M 100.2199, L400.2010 #### [facility] [place] [facility] [address] [place], [address] PROT DIPSTX 30 mg/dl Abnormal Negative [facility] [place] [facility] Comment on above: Order Comment: CLEAN CATCH Performed By: #### M 100.2199, L400 #### [facility] [place] [facility] [address] [place], [address] SP.GR. DIPSTX 1.010 Normal 1.002-1.030 [facility] [place] [facility] Comment on above: Order Comment: CLEAN CATCH Performed By: #### M 100.2199, L400 #### [facility] [address] [place], [address] UROBILI Normal Normal Normal [facility] Comment on above: Order Comment: CLEAN CATCH Performed By: #### M 100.2199, L400.2010 #### [facility] [place] [facility] [address] [place], [address] Bilirubin Test strip Ql (U)O rdered By: Balwinder Alves on 01-02-2025 Bilirubin Ql (U) Negative Negative [facility] [place] [facility] Glucose Ql (U)Ordered By: Jen Alves on 01-02-2025 Urine Glucose (UA) Normal mg/dl Normal [facility] Ketones Test strip Ql (U)Ord ered By: Balwinder Alves on 01-02-2025 Ketones Ql (U) Negative Negative [facility] Nitrite Test strip Ql (U)Ord ered By: Balwinder Alves on 01-02-2025 Nitrite Ql (U) Positive High Negative [facility] Protein Test strip Ql (U)Ord ered By: Balwinedr Alves on 01-02-2025 Protein Ql (U) 30 mg/dl High Negative [facility] Urine blood detectionOrdered By: Balwinder Alves on 01-02-2025 Urine Occult Blood 150 /ul High Negative [facility] Urine clarityOrdered By: Javed Alves on [...] 01-02-2025 Urobilinogen Ql (U) Normal mg/dl Normal [facility] Urobilinogen Ql (U)Ordered B y: Balwinder Alves on 01-02-2025 Urine Urobilinogen Normal mg/dl Normal [facility] Absolute lymphocyte countOrd ered By: Balwinder Alves on 12-26-2024 Lymphocytes Auto (Unsp spec) [#/Vol] 1.77 10*3/uL 0.83-4.51 [facility] Absolute neutrophil countOrd ered By: Balwinder Alves on 12-26-2024 Neutrophils (Bld) [#/Vol] 4.6 10*3/uL 2.0-7.7 [facility] [place] [facility] Anion gap in Serum or Plasma Ordered By: Balwinder Alves on 12-26-2024 Anion gap [Moles/Vol] 9 mmol/L 5- [facility] Automated lymphocyte count a s percentage of [...] [facility] [address] [place], [address] Calcium [Mass/Vol] 9.1 mg/dL Normal 7.6-11.0 [facility] Comment on above: Order Comment: 102-2 Performed By: #### L 500.2500, L100.0100 #### [facility] [address] [place], [address] Chloride [Moles/Vol] 99 mmol/L Normal 98-108 [facility] Comment on above: Order Comment: 102-2 Performed By: #### L 500.2500, L100.0100 #### [facility] [place] [facility] [address] [place], [address] CO2 [Moles/Vol] 29.0 mmol/L Normal 21.0-32.0 [facility] [place] [facility] Comment on above: Order Comment: 102-2 Performed By: #### L 500.2500, L100.0100 #### [facility] [place] [facility] [address] [place], [address] Creatinine [Mass/Vol] 0.67 mg/dL Low 0.70-1.20 [facility] Comment on above: Order Comment: 102-2 Performed By: #### L 500.2500, L100.0100 #### [facility] [place] [facility] [address] [place], [address] GAP 9 Normal 5-15 [facility] [place] [facility] Comment on above: Order Comment: 102-2 Performed By: #### L 500.2500, L100.0100 #### [facility] [place] [facility] [address] [place], [address] GFR/1.73 sq M.predicted among non-blacks MDRD (S/P/Bld) [Vol rate/Area] 88 mL/min/{1.73_m2} Normal >60 [facility] [place] [facility] Comment on above: Order Comment: 102-2 Result Comment: mL/m in/1.73m2 CKD-EPI Creatinine Equation (2020) Performed By: #### L 500.2500, L100.0100 #### [facility] [place] [facility] [address] [place], [address] Glucose [Mass/Vol] 215 mg/dL High 70-99 [facility] Comment on above: Order Comment: 102-2 Performed By: #### L 500.2500, L100.0100 #### [facility] [place] [facility] [address] [place], [address] Potassium [Moles/Vol] 4.6 mmol/L Normal 3.3-5.1 [facility] Comment on above: Order Comment: 102-2 Performed By: #### L 500.2500, L100.0100 #### [facility] [place] [facility] [address] [place], [address] Sodium [Moles/Vol] 137 mmol/L Normal 133-145 [facility] Comment on above: Order Comment: 102-2 Performed By: #### L 500.2500, L100.0100 #### [facility] [address] [place], [address] Urea nitrogen [Mass/Vol] 8 mg/dL Normal 4-19 [facility] [place] [facility] Comment on above: Order Comment: 102-2 Performed By: #### L 500.2500, L100.0100 #### [facility] [address] [place], [address] Basophil percentageOrdered B y: Balwinder Alves on 12-26-2024 Basophils/100 WBC (Bld) 0.6 % 0-1 [facility] CBC W/Diff, Automatedon 12-04 Absolute Lymph 1.77 X10 3/uL Normal 0.83-4.51 [facility] [place] [facility] Comment on above: Order Comment: 102-2 Performed By: #### L 500.2500, L100.0100 #### [facility] [place] [facility] [address] [place], [address] Absolute Neut 4.6 X10 3/uL Normal 2.0-7.7 [facility] [place] [facility] Comment on above: Order Comment: 102-2 Performed By: #### L 500.2500, L100.0100 #### [facility] [place] [facility] [address] [place], [address] Basophils/100 WBC (Bld) 0.6 % Normal 0-1 [facility] Comment on above: Order Comment: 102-2 Performed By: #### L 500.2500, L100.0100 #### [facility] [address] [place], [address] Eosinophils/100 WBC (Bld) 2.9 % Normal 0-5 [facility] [place] [facility] Comment on above: Order Comment: 102-2 Performed By: #### L 500.2500, L100.0100 #### [facility] [address] [place], [address] Erythrocyte distribution width (RBC) [Ratio] 13.9 % Normal 11.6-14.6 [facility] [place] [facility] Comment on above: Order Comment: 102-2 Performed By: #### L 500.2500, L100.0100 #### [facility] [address] [place], [address] Hematocrit (Bld) [Volume fraction] 35.6 % Low 37-47 [facility] Comment on above: Order Comment: 102-2 Performed By: #### L 500.2500, L100.0100 #### [facility] [address] [place], [address] Hemoglobin (Bld) [Mass/Vol] 10.9 g/dL Low 12.0-15.0 [facility] Comment on above: Order Comment: 102-2 Performed By: #### L 500.2500, L100.0100 #### [facility] [place] [facility] [address] [place], [address] IG% 0.700 Normal 0.0-0.9 [facility] [place] [facility] Comment on above: Order Comment: 102-2 Result Comment: IG% - Immature Granulocytes (promyelocytes, myelocytes and metamyelocytes) > 1% indicates that a LEFT SHIFT is Present. Performed By: #### L 500.2500, L100.0100 #### [facility] [place] [facility] [address] [place], [address] Lymphocytes/100 WBC (Bld) 24.8 % Normal 19-41 [facility] Comment on above: Order Comment: 102-2 Performed By: #### L 500.2500, L100.0100 #### [facility] [address] [place], [address] MCH (RBC) [Entitic mass] 28.8 pg Normal 27.0-32.0 [facility] Comment on above: Order Comment: 102-2 Performed By: #### L 500.2500, L100.0100 #### [facility] [address] [place], [address] MCHC (RBC) [Mass/Vol] 30.6 g/dL Low 32-36 [facility] Comment on above: Order Comment: 102-2 Performed By: #### L 500.2500, L100.0100 #### [facility] [address] [place], [address] MCV (RBC) [Entitic vol] 93.9 fL Normal 81-99 [facility] Comment on above: Order Comment: 102-2 Performed By: #### L 500.2500, L100.0100 #### [facility] [address] [place], [address] Monocytes/100 WBC (Bld) 6.3 % Normal 0-10 [facility] Comment on above: Order Comment: 102-2 Performed By: #### L 500.2500, L100.0100 #### [facility] [address] [place], [address] Neutrophils/100 WBC (Bld) 64.7 % Normal 47-70 [facility] Comment on above: Order Comment: 102-2 Performed By: #### L 500.2500, L100.0100 #### [facility] [address] [place], [address] Nucleated RBC (Bld) [#/Vol] 0 10*3/uL Normal 0-5 [facility] Comment on above: Order Comment: 102-2 Performed By: #### L 500.2500, L100.0100 #### [facility] [address] [place], [address] Platelet mean volume (Bld) [Entitic vol] 8.6 fL Normal 6.2-12.0 [facility] Comment on above: Order Comment: 102-2 Performed By: #### L 500.2500, L100.0100 #### [facility] [address] [place], [address] Platelets (Bld) [#/Vol] 221 10*3/uL Normal 150-450 [facility] Comment on above: Order Comment: 102-2 Performed By: #### L 500.2500, L100.0100 #### [facility] [address] [place], [address] RBC (Bld) [#/Vol] 3.79 10*6/uL Low 4.2-5.4 [facility] Comment on above: Order Comment: 102-2 Performed By: #### L 500.2500, L100.0100 #### [facility] [address] [place], [address] RDW SD 47.6 fl High 35.1-43.9 [facility] Comment on above: Order Comment: 102-2 Performed By: #### L 500.2500, L100.0100 #### [facility] [address] [place], [address] WBC (Bld) [#/Vol] 7.1 10*3/uL Normal 4.4-11.0 [facility] Comment on above: Order Comment: 102-2 Performed By: #### L 500.2500, L100.0100 #### [facility] [address] [place], [address] Carbon dioxide, total [Moles /volume] in Central venous bloodOrdered By: Balwinder Alves on 12-26-2024 CO2 [Moles/Vol] 29.0 mmol/L 21.0-32.0 [facility] Chloride assayOrdered By: Jen Alves on 12-26-2024 Chloride [Moles/Vol] 99 mmol/L 98-108 [facility] Eosinophil percentageOrdered By: Balwinder Alves on 12-26-2024 [...] (RBC) [Entitic vol] 93.9 fL 81-99 [facility] Mean corpuscular hemoglobin (MCH) determinationOrdered By: Balwinder Alves on 12-26-2024 MCH (RBC) [Entitic mass] 28.8 pg 27.0-32.0 [facility] Mean corpuscular hemoglobin concentration (MCHC) determinationOrdered By: Balwinder Alves on 12-26-2024 MCHC (RBC) [Mass/Vol] 30.6 g/dL Low 32-36 [facility] Mean platelet volume determi nationOrdered By: Balwinder Alves on 12-26-2024 Platelet mean volume (Bld) [Entitic vol] 8.6 fL 6.2-12.0 [facility] Monocyte percentageOrdered B y: Balwinder Alves on 12-26-2024 Monocytes/100 WBC (Bld) 6.3 % 0-10 [facility] Neutrophil percentageOrdered By: Balwinder Alves on 12-26-2024 [...] on 12-26-2024 Potassium [Moles/Vol] 4.6 mmol/L 3.3-5.1 [facility] Potassium measurement (mass/ volume)Ordered By: Balwinder Alves on 12-26-2024 Potassium (Unsp spec) [Mass/Vol] 4.6 mmol/L 3.3-5.1 [facility] RBC Auto (Bld) [#/Vol]Ordere d By: Balwinder Alves on 12-26-2024 RBC (Bld) [#/Vol] 3.79 10*6/uL Low 4.2-5.4 [facility] Serum creatinine measurement (mass/volume)Ordered By: Balwinder Alves on 12-26-2024 Creatinine [Mass/Vol] 0.67 mg/dL Low 0.70-1.20 [facility] Serum glucose measurement (m ass/volume)Ordered By: Balwinder Alves on 12-26-2024 Glucose [Mass/Vol] 215 mg/dL High 70-99 [facility] Serum or plasma calcium jacqueline urement (mass/volume)Ordered By: Balwinder Alves on 12-26-2024 Calcium [Mass/Vol] 9.1 mg/dL 7.6-11.0 [facility] Serum or plasma urea nitroge n measurement (mass/volume)Ordered By: Balwinder Alves on 12-26-2024 Urea nitrogen [Mass/Vol] 8 mg/dL 4-19 [facility] Sodium levelOrdered By: Balwinder Alves on 12-26-2024 Sodium [Moles/Vol] 137 mmol/L 133-145 [facility] White blood cell (WBC) count Ordered By: Balwinder Alves on 12-26-2024 WBC (Bld) [#/Vol] 7.1 10*3/uL 4.4-11.0 [facility] Anion gap in Serum or Plasma Ordered By: Balwinder Alves on 12-16-2024 Anion gap [Moles/Vol] 12 mmol/L - [facility] BUN/creatinine ratioOrdered By: Balwinder Alves on 12-16-2024 Urea nitrogen/Creatinine [Mass ratio] 12.7 mg/mg 07-24 [facility] Basic Metabolic Profile (BMP )on 12-16-2024 BUN/CRE 12.7 RATIO Normal 07-24 [facility] Comment on above: Performed By: #### L 100.0500, L500.2500 #### [facility] [address] [place], [address] Calcium [Mass/Vol] 9.5 mg/dL Normal 7.6-11.0 [facility] Comment on above: Performed By: #### L 100.0500, L500.2500 #### [facility] [address] [place], [address] Chloride [Moles/Vol] 98 mmol/L Normal 98-108 [facility] Comment on above: Performed By: #### L 100.0500, L500.2500 #### [facility] [address] [place], [address] CO2 [Moles/Vol] 26.7 mmol/L Normal 21.0-32.0 [facility] Comment on above: Performed By: #### L 100.0500, L500.2500 #### [facility] [address] [place], [address] Creatinine [Mass/Vol] 0.67 mg/dL Low 0.70-1.20 [facility] Comment on above: Performed By: #### L 100.0500, L500.2500 #### [facility] [address] [place], [address] GAP 12 Normal 5-15 [facility] Comment on above: Performed By: #### L 100.0500, L500.2500 #### [facility] [address] [place], [address] GFR/1.73 sq M.predicted among non-blacks MDRD (S/P/Bld) [Vol rate/Area] 88 mL/min/{1.73_m2} Normal >60 [facility] Comment on above: Result Comment: mL/m in/1.73m2 CKD-EPI Creatinine Equation (2020) Performed By: #### L 100.0500, L500.2500 #### [facility] [address] [place], [address] Glucose [Mass/Vol] 201 mg/dL High 70-99 [facility] Comment on above: Performed By: #### L 100.0500, L500.2500 #### [facility] [address] [place], [address] Potassium [Moles/Vol] 4.6 mmol/L Normal 3.3-5.1 [facility] Comment on above: Performed By: #### L 100.0500, L500.2500 #### [facility] [address] [place], [address] Sodium [Moles/Vol] 137 mmol/L Normal 133-145 [facility] Comment on above: Performed By: #### L 100.0500, L500.2500 #### [facility] [address] [place], [address] Urea nitrogen [Mass/Vol] 8 mg/dL Normal 4-19 [facility] Comment on above: Performed By: #### L 100.0500, L500.2500 #### [facility] [address] [place], [address] CBC-Complete Blood Cnt No Di ffon 12-16-2024 Erythrocyte distribution width (RBC) [Ratio] 13.8 % Normal 11.6-14.6 [facility] Comment on above: Performed By: #### L 100.0500, L500.2500 #### [facility] [address] [place], [address] Hematocrit (Bld) [Volume fraction] 36.2 % Low 37-47 [facility] Comment on above: Performed By: #### L 100.0500, L500.2500 #### [facility] [address] [place], [address] Hemoglobin (Bld) [Mass/Vol] 11.0 g/dL Low 12.0-15.0 [facility] Comment on above: Performed By: #### L 100.0500, L500.2500 #### [facility] [address] [place], [address] MCH (RBC) [Entitic mass] 28.2 pg Normal 27.0-32.0 [facility] Comment on above: Performed By: #### L 100.0500, L500.2500 #### [facility] [address] [place], [address] MCHC (RBC) [Mass/Vol] 30.4 g/dL Low 32-36 [facility] Comment on above: Performed By: #### L 100.0500, L500.2500 #### [facility] [address] [place], [address] MCV (RBC) [Entitic vol] 92.8 fL Normal 81-99 [facility] Comment on above: Performed By: #### L 100.0500, L500.2500 #### [facility] [place] [facility] [address] [place], [address] Platelet mean volume (Bld) [Entitic vol] 8.4 fL Normal 6.2-12.0 [facility] Comment on above: Performed By: #### L 100.0500, L500.2500 #### [facility] [address] [place], [address] Platelets (Bld) [#/Vol] 231 10*3/uL Normal 150-450 [facility] Comment on above: Performed By: #### L 100.0500, L500.2500 #### [facility] [address] [place], [address] RBC (Bld) [#/Vol] 3.90 10*6/uL Low 4.2-5.4 [facility] Comment on above: Performed By: #### L 100.0500, L500.2500 #### [facility] [address] [place], [address] RDW SD 47.0 fl High 35.1-43.9 [facility] Comment on above: Performed By: #### L 100.0500, L500.2500 #### [facility] [address] [place], [address] WBC (Bld) [#/Vol] 7.8 10*3/uL Normal 4.4-11.0 [facility] Comment on above: Performed By: #### L 100.0500, L500.2500 #### [facility] [address] [place], [address] Calculated very low density lipoprotein (VLDL) cholesterol [...] on 12-16-2024 Chloride [Moles/Vol] 98 mmol/L 98-108 [facility] Erythrocyte distribution wid th (RBC) [Ratio]Ordered By: [...] [facility] [address] [place], [place], [id number] Hemoglobin A1c percentageOrd ered By: Balwinder Alves [...] [facility] [address] [place], [place], [address] LDL calc ser/plasOrdered By: Balwinder Alves on 12-16-2024 Cholesterol in LDL [Mass/Vol] 22 mg/dL [facility] Comment on above: Aljxgzdwrm=953-057 m g/dL & Higher Zfmk=080 mg/dL or greater LDL Cholesterol, Calculated 22 mg/dL [facility] Comment on above: Sarjwjnxnr=068-333 m g/dL & Higher Nnfa=250 mg/dL or greater Lipid Profileon 12-16-2024 CHOL:HDL 2.22 Normal [facility] Comment on above: Performed By: #### L 100.0500, L500.2500 #### [facility] [address] [place], [address] Cholesterol [Mass/Vol] 98 mg/dL Normal <=200 [facility] Comment on above: Result Comment: Chol esterol level, Desirable <200 mg/dL Borderline high cholesterol 200-239 mg/dL High cholesterol >=240 mg/dL Recommendations of the NCEP Adult Treatment Panel for the following risk-cutoff thresholds for the [place] population. Performed By: #### L 100.0500, L500.2500 #### [facility] [address] [place], [address] Cholesterol in HDL [Mass/Vol] 44 mg/dL Normal [...] [facility] [address] [place], [address] Cholesterol in LDL [Mass/Vol] 22 mg/dL Normal [facility] Comment on above: Result Comment: Bord uwvcdn=311-678 mg/dL Higher Mcib=679 mg/dL or greater Performed By: #### L 100.0500, L500.2500 #### [facility] [address] [place], [address] Cholesterol in VLDL [Mass/Vol] 32 mg/dL Normal 5-40 [facility] Comment on above: Performed By: #### L 100.0500, L500.2500 #### [facility] [address] [place], [address] Triglyceride [Mass/Vol] 162 mg/dL Normal [facility] Comment on above: Result Comment: The drugs N-Acetylcysteine and Metamizole may falsely depress this assay. Normal range: <150 mg/dL Borderline High: 150-199 mg/dL High: 200-499 mg/dL Very High: >500 mg/dL Performed By: #### L 100.0500, L500.2500 #### [facility] [address] [place], [address] MCV (mean corpuscular volume ) determinationOrdered By: Balwinder Alves on 12-16-2024 MCV (RBC) [Entitic vol] 92.8 fL 81-99 [facility] Mean corpuscular hemoglobin (MCH) determinationOrdered By: Balwinder Alves on 12-16-2024 MCH (RBC) [Entitic mass] 28.2 pg 27.0-32.0 [facility] Mean corpuscular hemoglobin concentration (MCHC) determinationOrdered By: Balwinder Alves on 12-16-2024 MCHC (RBC) [Mass/Vol] 30.4 g/dL Low 32-36 [facility] Mean platelet volume determi nationOrdered By: Balwinder Alves on 12-16-2024 Platelet mean volume (Bld) [Entitic vol] 8.4 fL 6.2-12.0 [facility] Platelet countOrdered By: Jen Alves on 12-16-2024 Platelets (Bld) [#/Vol] 231 10*3/uL 150-450 [facility] Potassium (Unsp spec) [Mass/ Vol]Ordered By: Balwinder Alves on 12-16-2024 Potassium [Moles/Vol] 4.6 mmol/L 3.3-5.1 [facility] Potassium measurement (mass/ volume)Ordered By: Balwinder Alves on 12-16-2024 Potassium (Unsp spec) [Mass/Vol] 4.6 mmol/L 3.3-5.1 [facility] RBC Auto (Bld) [#/Vol]Ordere d By: Balwinder Alves on 12-16-2024 RBC (Bld) [#/Vol] 3.90 10*6/uL Low 4.2-5.4 [facility] Screening total cholesterol/ high density lipoprotein (HDL) cholesterol ratioOrdered By: Balwinder Alves on 12-16-2024 Cholesterol.total/Jany sterol in HDL [Mass ratio] 2.22 {ratio} [facility] Serum creatinine measurement (mass/volume)Ordered By: Balwinder Alves on 12-16-2024 Creatinine [Mass/Vol] 0.67 mg/dL Low 0.70-1.20 [facility] Serum glucose measurement (m ass/volume)Ordered By: Balwinder Alves on 12-16-2024 Glucose [Mass/Vol] 201 mg/dL High 70-99 [facility] Serum or plasma calcium jacqueline urement (mass/volume)Ordered By: Balwinder Alves on 12-16-2024 Calcium [Mass/Vol] 9.5 mg/dL 7.6-11.0 [facility] Serum or plasma cholesterol in HDL [...] 12-16-2024 Cholesterol [Mass/Vol] 98 mg/dL <201 [facility] Comment on above: Cholesterol level, D esirable <200 mg/dLBorderline high cholesterol 200-239 mg/dLHigh cholesterol >=240 mg/dLRecommendations of the NCEP Adult Treatment Panel for the following risk-cutoff thresholds for the [place] population. Serum or plasma urea nitroge n measurement (mass/volume)Ordered By: Balwinder Alves on 12-16-2024 Urea nitrogen [Mass/Vol] 8 mg/dL 4-19 [facility] Sodium levelOrdered By: Balwinder Alves on 12-16-2024 Sodium [Moles/Vol] 137 mmol/L 133-145 [facility] Triglycerides measurementOrd ered By: Balwinder Alves on 12-16-2024 Triglyceride [Mass/Vol] 162 mg/dL <199 [facility] Comment on above: The drugs N-Acetylcy steine and Metamizole may falsely depress this assay. Normal range: <150 mg/dLBorderline High: 150-199 mg/dLHigh: 200-499 mg/dLVery High: >500 mg/dL Vitamin D, 25-hydroxyOrdered By: Balwinder Alves on 12-16-2024 Vitamin D 25-Hydroxy 31.6 ng/mL 30-100 [facility] Comment on above: Vitamin D StatusDefi ciency: <20 ng/mL (50nmol/L)Insufficiency: 20-30 ng/mL (50-75 nmol/L)Sufficiency: 30-100 ng/mL (75-250 nmol/L)Toxicity: >100 ng/mL (>250 nmol/L) White blood cell (WBC) count Ordered By: Balwinder Alves on 12-16-2024 WBC (Bld) [#/Vol] 7.8 10*3/uL 4.4-11.0 [facility] Absolute lymphocyte countOrd ered By: Balwinder Alves on 12-14-2024 Lymphocytes Auto (Unsp spec) [#/Vol] 1.93 10*3/uL 0.83-4.51 [facility] Absolute neutrophil countOrd ered By: Balwinder Alves on 12-14-2024 Neutrophils (Bld) [#/Vol] 4.0 10*3/uL 2.0-7.7 [facility] Anion gap in Serum or Plasma Ordered By: Balwinder Alves on 12-14-2024 Anion gap [Moles/Vol] 11 mmol/L 5-15 [facility] Automated lymphocyte count a s percentage of [...] [facility] [place], [address] Calcium [Mass/Vol] 9.2 mg/dL Normal 7.6-11.0 [facility] Comment on above: Order Comment: 102.2 Performed By: #### L 100.0500, L500.2500 #### [facility] [address] [place], [address] Chloride [Moles/Vol] 101 mmol/L Normal 98-108 [facility] Comment on above: Order Comment: 102.2 Performed By: #### L 100.0500, L500.2500 #### [facility] [address] [place], [address] CO2 [Moles/Vol] 27.6 mmol/L Normal 21.0-32.0 [facility] Comment on above: Order Comment: 102.2 Performed By: #### L 100.0500, L500.2500 #### [facility] [address] [place], [address] Creatinine [Mass/Vol] 0.68 mg/dL Low 0.70-1.20 [facility] Comment on above: Order Comment: 102.2 Performed By: #### L 100.0500, L500.2500 #### [facility] [address] [place], [address] GAP 11 Normal 5-15 [facility] Comment on above: Order Comment: 102.2 Performed By: #### L 100.0500, L500.2500 #### [facility] [address] [place], [address] GFR/1.73 sq M.predicted among non-blacks MDRD (S/P/Bld) [Vol rate/Area] 88 mL/min/{1.73_m2} Normal >60 [facility] Comment on above: Order Comment: 102.2 Result Comment: mL/m in/1.73m2 CKD-EPI Creatinine Equation (2020) Performed By: #### L 100.0500, L500.2500 #### [facility] [address] [place], [address] Glucose [Mass/Vol] 177 mg/dL High 70-99 [facility] Comment on above: Order Comment: 102.2 Performed By: #### L 100.0500, [id number] #### [facility] [address] [place], [address] Potassium [Moles/Vol] 4.3 mmol/L Normal 3.3-5.1 [facility] Comment on above: Order Comment: 102.2 Performed By: #### L 100.0500, L500.2500 #### [facility] [address] [place], [address] Sodium [Moles/Vol] 139 mmol/L Normal 133-145 [facility] Comment on above: Order Comment: 102.2 Performed By: #### L 100.0500, L500.2500 #### [facility] [address] [place], [address] Urea nitrogen [Mass/Vol] 7 mg/dL Normal 4-19 [facility] Comment on above: Order Comment: 102.2 Performed By: #### L 100.0500, L500.2500 #### [facility] [address] [place], [address] Basophil percentageOrdered B y: Balwinder Alves on 12-14-2024 Basophils/100 WBC (Bld) 0.3 % 0-1 [facility] CBC W/Diff, Automatedon 12-03 Absolute Lymph 1.93 X10 3/uL Normal 0.83-4.51 [facility] Comment on above: Order Comment: 102.2 Performed By: #### M 100.2200, L400.2010 #### [facility] [address] [place], [address] Absolute Neut 4.0 X10 3/uL Normal 2.0-7.7 [facility] Comment on above: Order Comment: 102.2 Performed By: #### M 100.2199, .2010 #### [facility] [address] [place], [address] Basophils/100 WBC (Bld) 0.3 % Normal 0-1 [facility] Comment on above: Order Comment: 102.2 Performed By: #### M 100.2199, .2010 #### [facility] [address] [place], [address] Eosinophils/100 WBC (Bld) 3.1 % Normal 0-5 [facility] [place] [facility] Comment on above: Order Comment: 102.2 Performed By: #### M , #### [facility] [address] [place], [address] Erythrocyte distribution width (RBC) [Ratio] 13.6 % Normal 11.6-14.6 [facility] Comment on above: Order Comment: 102.2 Performed By: #### M , #### [facility] [address] [place], [address] Hematocrit (Bld) [Volume fraction] 35.6 % Low 37-47 [facility] Comment on above: Order Comment: 102.2 Performed By: #### M , #### [facility] [address] [place], [address] Hemoglobin (Bld) [Mass/Vol] 10.9 g/dL Low 12.0-15.0 [facility] Comment on above: Order Comment: 102.2 Performed By: #### M 100, #### [facility] [address] [place], [address] IG% 1.000 High 0.0-0.9 [facility] [place] [facility] Comment on above: Order Comment: 102.2 Result Comment: IG% - Immature Granulocytes (promyelocytes, myelocytes and metamyelocytes) > 1% indicates that a LEFT SHIFT is Present. Performed By: #### M 100.2199, L4.2010 #### [facility] [address] [place], [address] Lymphocytes/100 WBC (Bld) 28.7 % Normal 19-41 [facility] [place] [facility] Comment on above: Order Comment: 102.2 Performed By: #### M , .2010 #### [facility] [address] [place], [address] MCH (RBC) [Entitic mass] 28.2 pg Normal 27.0-32.0 [facility] [place] [facility] Comment on above: Order Comment: 102.2 Performed By: #### M , .2010 #### [facility] [address] [place], [address] MCHC (RBC) [Mass/Vol] 30.6 g/dL Low 32-36 [facility] Comment on above: Order Comment: 102.2 Performed By: #### M , L4.2010 #### [facility] [address] [place], [address] MCV (RBC) [Entitic vol] 92.0 fL Normal 81-99 [facility] Comment on above: Order Comment: 102.2 Performed By: #### M , L4 #### [facility] [address] [place], [address] Monocytes/100 WBC (Bld) 6.8 % Normal 0-10 [facility] Comment on above: Order Comment: 102.2 Performed By: #### M , L4 #### [facility] [address] [place], [address] Neutrophils/100 WBC (Bld) 60.1 % Normal 47-70 [facility] [place] [facility] Comment on above: Order Comment: 102.2 Performed By: #### M 100.2200, #### [facility] [place] [facility] [address] [place], [address] Nucleated RBC (Bld) [#/Vol] 0 10*3/uL Normal 0-5 [facility] [place] [facility] Comment on above: Order Comment: 102.2 Performed By: #### M , .2010 #### [facility] [address] [place], [address] Platelet mean volume (Bld) [Entitic vol] 8.5 fL Normal 6.2-12.0 [facility] [place] [facility] Comment on above: Order Comment: 102.2 Performed By: #### M , #### [facility] [address] [place], [address] Platelets (Bld) [#/Vol] 213 10*3/uL Normal 150-450 [facility] Comment on above: Order Comment: 102.2 Performed By: #### M , #### [facility] [address] [place], [address] RBC (Bld) [#/Vol] 3.87 10*6/uL Low 4.2-5.4 [facility] Comment on above: Order Comment: 102.2 Performed By: #### M , #### [facility] [address] [place], [address] RDW SD 46.1 fl High 35.1-43.9 [facility] [place] [facility] Comment on above: Order Comment: 102.2 Performed By: #### M , #### [facility] [place] [facility] [address] [place], [address] WBC (Bld) [#/Vol] 6.7 10*3/uL Normal 4.4-11.0 [facility] Comment on above: Order Comment: 102.2 Performed By: #### M 100.2200, L400.2010 #### [facility] [place] [facility] [address] [place], [address] Calculated very low density lipoprotein (VLDL) cholesterol [...] on 12-14-2024 Chloride [Moles/Vol] 101 mmol/L 98-108 [facility] Eosinophil percentageOrdered By: Balwinder Alves on 12-14-2024 [...] [facility] [address] [place], [place], [id number] Hemoglobin A1c percentageOrd ered By: Balwinder Alves [...] [facility] [address] [place], [place], [id number] LDL calc ser/plasOrdered By: Balwinder Alves on 12-14-2024 Cholesterol in LDL [Mass/Vol] 22 mg/dL [facility] [place] [facility] Comment on above: Hcoyzozdeq=617-015 m g/dL & Higher Bxbl=108 mg/dL or greater LDL Cholesterol, Calculated 22 mg/dL [facility] Comment on above: Jhkmwtliiu=265-847 m g/dL & Higher Jpyn=539 mg/dL or greater Lipid Profileon 12-14-2024 CHOL:HDL 2.29 Normal [facility] Comment on above: Order Comment: 102.2 Performed By: #### L 100.0500, L500.2500 #### [facility] [address] [place], [place], [id number] Cholesterol [Mass/Vol] 91 mg/dL Normal <=200 [facility] Comment on above: Order Comment: 102.2 Result Comment: Chol esterol level, Desirable <200 mg/dL Borderline high cholesterol 200-239 mg/dL High cholesterol >=240 mg/dL Recommendations of the NCEP Adult Treatment Panel for the following risk-cutoff thresholds for the [place] population. Performed By: #### L 100.0500, L500.2500 #### [facility] [address] [place], [place], [id number] Cholesterol in HDL [Mass/Vol] 40 mg/dL Normal [...] [facility] [address] [place], [place], [id number] Cholesterol in LDL [Mass/Vol] 22 mg/dL Normal [facility] Comment on above: Order Comment: 102.2 Result Comment: Bord jaalic=721-257 mg/dL Higher Bjch=323 mg/dL or greater Performed By: #### L 100.0500, L500.2500 #### [facility] [address] [place] [place], [address] Cholesterol in VLDL [Mass/Vol] 29 mg/dL Normal 5-40 [facility] Comment on above: Order Comment: 102.2 Performed By: #### L 100.0500, L500.2500 #### [facility] [address] [place], [address] Triglyceride [Mass/Vol] 146 mg/dL Normal [facility] Comment on above: Order Comment: 102.2 Result Comment: The drugs N-Acetylcysteine and Metamizole may falsely depress this assay. Normal range: <150 mg/dL Borderline High: 150-199 mg/dL High: 200-499 mg/dL Very High: >500 mg/dL Performed By: #### L 100.0500, L500.2500 #### [facility] [address] [place], [address] Lymphocytes Auto (Unsp spec) [#/Vol]Ordered By: Balwinder Alves on 12-14-2024 Lymphocytes (Bld) [#/Vol] 1.93 10*3/uL 0.83-4.51 [facility] Lymphocytes/100 WBC Auto (Un sp spec)Ordered By: Balwinder Alves on 12-14-2024 Lymphocytes/100 WBC (Bld) 28.7 % 19-41 [facility] MCV (mean corpuscular volume ) determinationOrdered By: Balwinder Alves on 12-14-2024 MCV (RBC) [Entitic vol] 92.0 fL 81-99 [facility] Mean corpuscular hemoglobin (MCH) determinationOrdered By: Balwinder Alves on 12-14-2024 MCH (RBC) [Entitic mass] 28.2 pg 27.0-32.0 [facility] Mean corpuscular hemoglobin concentration (MCHC) determinationOrdered By: Balwinder Alves on 12-14-2024 MCHC (RBC) [Mass/Vol] 30.6 g/dL Low 32-36 [facility] Mean platelet volume determi nationOrdered By: Balwinder Alves on 12-14-2024 Platelet mean volume (Bld) [Entitic vol] 8.5 fL 6.2-12.0 [facility] Monocyte percentageOrdered B y: Balwinder Alves on 12-14-2024 Monocytes/100 WBC (Bld) 6.8 % 0-10 [facility] Neutrophil percentageOrdered By: Balwinder Alves on 12-14-2024 [...] on 12-14-2024 Potassium [Moles/Vol] 4.3 mmol/L 3.3-5.1 [facility] Potassium measurement (mass/ volume)Ordered By: Balwinder Alves on 12-14-2024 Potassium (Unsp spec) [Mass/Vol] 4.3 mmol/L 3.3-5.1 [facility] RBC Auto (Bld) [#/Vol]Ordere d By: Balwinder Alves on 12-14-2024 RBC (Bld) [#/Vol] 3.87 10*6/uL Low 4.2-5.4 [facility] Screening total cholesterol/ high density lipoprotein (HDL) cholesterol ratioOrdered By: Balwinder Alves on 12-14-2024 Cholesterol.total/Jany sterol in HDL [Mass ratio] 2.29 {ratio} [facility] Serum creatinine measurement (mass/volume)Ordered By: Balwinder Alves on 12-14-2024 Creatinine [Mass/Vol] 0.68 mg/dL Low 0.70-1.20 [facility] Serum glucose measurement (m ass/volume)Ordered By: Balwinder Alves on 12-14-2024 Glucose [Mass/Vol] 177 mg/dL High 70-99 [facility] Serum or plasma calcium jacqueline urement (mass/volume)Ordered By: Balwinder Alves on 2025 Calcium [Mass/Vol] 9.2 mg/dL 7.6-11.0 [facility] Serum or plasma cholesterol in HDL [...] on 12-14-2024 Cholesterol [Mass/Vol] 91 mg/dL <201 [facility] Comment on above: Cholesterol level, D esirable <200 mg/dLBorderline high cholesterol 200-239 mg/dLHigh cholesterol >=240 mg/dLRecommendations of the NCEP Adult Treatment Panel for the following risk-cutoff thresholds for the [place] population. Serum or plasma urea nitroge n measurement (mass/volume)Ordered By: Balwinder Alves on 12-14-2024 Urea nitrogen [Mass/Vol] 7 mg/dL 4-19 [facility] Sodium levelOrdered By: Balwinder Alves on 12-14-2024 Sodium [Moles/Vol] 139 mmol/L 133-145 [facility] Triglycerides measurementOrd ered By: Balwinder Alves on 12-14-2024 Triglyceride [Mass/Vol] 146 mg/dL <199 [facility] Comment on above: The drugs N-Acetylcy steine and Metamizole may falsely depress this assay. Normal range: <150 mg/dLBorderline High: 150-199 mg/dLHigh: 200-499 mg/dLVery High: >500 mg/dL Vitamin D, 25-hydroxyOrdered By: Balwinder Alves on 12-14-2024 Vitamin D 25-Hydroxy 31.2 ng/mL 30-100 [facility] Comment on above: Vitamin D StatusDefi ciency: <20 ng/mL (50nmol/L)Insufficiency: 20-30 ng/mL (50-75 nmol/L)Sufficiency: 30-100 ng/mL (75-250 nmol/L)Toxicity: >100 ng/mL (>250 nmol/L) White blood cell (WBC) count Ordered By: Balwinder Alves on 12-14-2024 WBC (Bld) [#/Vol] 6.7 10*3/uL 4.4-11.0 [facility] Urine Cultureon 10-17-2024 [facility] Copy of report sent to Infection Control Printer [id number] 10/17/24 1000 VSICK. Urine Culture Urine Culture Urine Culture ESBL Escherichia coli [place] Count 80,000-100,000 MARKER ESBL producing OrganismA MARKER ESBL producing OrganismA [place] Count 80,000-100,000 Proteus mirabilis Ampicillin Islt PREM [...] [facility] [address] [place], [place], [id number] Urinalysis, Routine (Dipstic k)on 10-11-2024 BILIRUBIN URINE Negative Normal Negative [facility] Comment on above: Order Comment: CLEAN CATCH Performed By: #### M , #### [facility] [address] [place], [address] Clarity (U) Sl. Cloudy Normal Clear [facility] Comment on above: Order Comment: CLEAN CATCH Performed By: #### M #### [facility] [address] [place], [address] Color (U) Yellow Normal Yellow [facility] Comment on above: Order Comment: CLEAN CATCH Performed By: #### M #### [facility] [address] [place], [address] GLUCOSE, UR Normal Normal Normal [facility] Comment on above: Order Comment: CLEAN CATCH Performed By: #### M #### [facility] [address] [place], [address] KETONE UR Negative Normal Negative [facility] Comment on above: Order Comment: CLEAN CATCH Performed By: #### M #### [facility] [address] [place], [address] LEUK ESTERASE 500 /ul Abnormal Negative [facility] Comment on above: Order Comment: CLEAN CATCH Performed By: #### M #### [facility] [address] [place], [address] Nitrite Ql (U) Positive Abnormal Negative [facility] Comment on above: Order Comment: CLEAN CATCH Performed By: #### M #### [facility] [address] [place], [address] OCCULT BLOOD-UR 50 /ul Abnormal Negative [facility] Comment on above: Order Comment: CLEAN CATCH Performed By: #### M #### [facility] [address] [place], [address] pH UR 6.5 Normal 5.0 - 8.0 [facility] Comment on above: Order Comment: CLEAN CATCH Performed By: #### M 100.2200, L4.2010 #### [facility] [address] [place], [address] PROT DIPSTX 15 mg/dl Abnormal Negative [facility] Comment on above: Order Comment: CLEAN CATCH Performed By: #### M 100.2200, L400.2010 #### [facility] [address] [place], [address] SP.GR. DIPSTX 1.010 Normal 1.002-1.030 [facility] Comment on above: Order Comment: CLEAN CATCH Performed By: #### M 100.0, L4 #### [facility] [address] [place], [address] UROBILI Normal Normal Normal [facility] Comment on above: Order Comment: CLEAN CATCH Performed By: #### M 100.2199, L4.2010 #### [facility] [address] [place], [address] Bilirubin Test strip Ql (U)O rdered By: Balwinder Alves on 10-10-2024 Bilirubin Ql (U) Negative Negative [facility] Glucose Ql (U)Ordered By: Jen Alves on 10-10-2024 Urine Glucose (UA) Normal mg/dl Normal [facility] Ketones Test strip Ql (U)Ord ered By: [...] Urine Occult Blood 50 /ul High Negative [facility] Urine clarityOrdered By: Javed Alves on [...] on 10-10-2024 Urine Urobilinogen Normal mg/dl Normal [facility] Automated blood erythrocyte countOrdered By: Balwinder Alves on 09-14-2024 RBC (Bld) [#/Vol] 3.90 10*6/uL Low 4.2-5.4 [facility] Comment on above: Order Comment: 102.2 Performed By: #### L 100.0500, L500.2500 #### [facility] [address] [place], [place], [id number] Automated blood hematocrit ( percentage)Ordered By: Balwinder Alves on 09-14-2024 Hematocrit (Bld) [Volume fraction] 37.7 % Normal 37-47 [facility] Comment on above: Order Comment: 102.2 Performed By: #### L 100.0500, L500.2500 #### [facility] [address] [place], [address] Basic Metabolic Profile (BMP )on 12-11-2024 BUN/CRE 15.5 RATIO Normal 10- [facility] Comment on above: Order Comment: 102.2 Performed By: #### L 100.0500, L500.2500 #### [facility] [address] [place], [address] CA,Total 9.4 mg/dL Normal 8.5-10.1 [facility] Comment on above: Order Comment: 102.2 Performed By: #### L 100.0500, L500.2500 #### [facility] [address] [place], [address] EST GFR - AA 102 mL/min Normal >60 [facility] Comment on above: Order Comment: 102.2 Result Comment: Afri can Kazakh GFR Calc Performed By: #### L 100.0500, L500.2500 #### [facility] [address] [place], [address] GAP 3 Low 5-15 [facility] Comment on above: Order Comment: 102.2 Performed By: #### L 100.0500, L500.2500 #### [facility] [address] [place], [address] GFR/1.73 sq M.predicted among non-blacks MDRD (S/P/Bld) [Vol rate/Area] 84 mL/min/{1.73_m2} Normal >60 [facility] Comment on above: Order Comment: 102.2 Result Comment: Non- GFR Calc Performed By: #### L 100.0500, L500.2500 #### [facility] [address] [place], [address] Blood urea nitrogen (BUN)/cr eatinine ratioOrdered By: [...] [facility] [address] [place], [address] Carbon dioxide measurementOr dered By: Balwinder Alves on 09-14-2024 CO2 [Moles/Vol] 34.0 mmol/L High 21.0-32.0 [facility] Comment on above: Order Comment: 102.2 Performed By: #### L 100.0500, L500.2500 #### [facility] [address] [place], [address] Chloride measurementOrdered By: Balwinder Alves on 09-14-2024 Chloride [Moles/Vol] 103 mmol/L Normal 98-107 [facility] Comment on above: Order Comment: 102.2 Performed By: #### L 100.0500, L500.2500 #### [facility] [address] [place], [address] Erythrocyte distribution wid th (RBC) [Ratio]Ordered By: [...] [facility] [address] [place], [address] Estimated glomerular filtrat ion rate (GFR) AmericanOrdered [...] 09-14-2024 Glucose [Mass/Vol] 168 mg/dL High 74-106 [facility] Comment on above: Fasting Glucose resu lt greater than or equal to 126 mg/dL suggests DIABETES MELLITUS per A.D.A. criteria. Order Comment: 102.2 Result Comment: Fast ing Glucose result greater than or equal to 126 mg/dL suggests DIABETES MELLITUS per A.D.A. criteria. Performed By: #### L 100.0500, L500.2500 #### [facility] [address] [place], [address] Hemoglobin measurementOrdere d By: Balwinder Alves on 09-14-2024 Hemoglobin (Bld) [Mass/Vol] 11.1 g/dL Low 12.0-15.0 [facility] Comment on above: Order Comment: 102.2 Performed By: #### L 100.0500, L500.2500 #### [facility] [address] [place], [address] MCV (mean corpuscular volume ) determinationOrdered By: Balwinder Alves on 09-14-2024 MCV (RBC) [Entitic vol] 96.7 fL Normal 81-99 [facility] Comment on above: Order Comment: 102.2 Performed By: #### L 100.0500, L500.2500 #### [facility] [address] [place], [address] Mean corpuscular hemoglobin (MCH) determinationOrdered By: Balwinder Alves on 09-14-2024 MCH (RBC) [Entitic mass] 28.5 pg Normal 27.0-32.0 [facility] Comment on above: Order Comment: 102.2 Performed By: #### L 100.0500, L500.2500 #### [facility] [address] [place], [address] Mean corpuscular hemoglobin concentration (MCHC) determinationOrdered By: Balwinder Alves on 09-14-2024 MCHC (RBC) [Mass/Vol] 29.4 g/dL Low 32-36 [facility] Comment on above: Order Comment: 102.2 Performed By: #### L 100.0500, L500.2500 #### [facility] [address] [place], [address] Mean platelet volume determi nationOrdered By: Balwinder Alves on 09-14-2024 Platelet mean volume (Bld) [Entitic vol] 8.2 fL Normal 6.2-12.0 [facility] Comment on above: Order Comment: 102.2 Performed By: #### L 100.0500, L500.2500 #### [facility] [address] [place], [address] Platelet countOrdered By: Jen Alves on 09-14-2024 Platelets (Bld) [#/Vol] 178 10*3/uL Normal 150-450 [facility] Comment on above: Order Comment: 102.2 Performed By: #### L 100.0500, L500.2500 #### [facility] [address] [place], [address] Potassium measurementOrdered By: Balwinder Alves on 09-14-2024 Potassium [Moles/Vol] 4.6 mmol/L Normal 3.5-5.1 [facility] Comment on above: Order Comment: 102.2 Performed By: #### L 100.0500, L500.2500 #### [facility] [address] [place], [address] Serum anion gap measurementO rdered By: Balwinder Alves on 09-14-2024 Anion gap [Moles/Vol] 3 mmol/L Low 5-15 [facility] Serum or plasma calcium jacqueline urement (mass/volume)Ordered By: Balwinder Alves on 09-14-2024 Calcium [Mass/Vol] 9.4 mg/dL 8.5-10.1 [facility] Serum or plasma creatinine m easurement (mass/volume)Ordered By: Balwinder Alves on 09-14-2024 Creatinine [Mass/Vol] 0.71 mg/dL Normal 0.55-1.02 [facility] Comment on above: The validity of the [...] [facility] [address] [place], [address] Serum or plasma urea nitroge n measurement (mass/volume)Ordered By: Balwinder Alves on 09-14-2024 Urea nitrogen [Mass/Vol] 11 mg/dL Normal 7-18 [facility] Comment on above: Order Comment: 102.2 Performed By: #### L 100.0500, L500.2500 #### [facility] [address] [place], [address] Sodium levelOrdered By: Balwinder Alves on 09-14-2024 Sodium [Moles/Vol] 139 mmol/L Normal 136-145 [facility] Comment on above: Order Comment: 102.2 Performed By: #### L 100.0500, L500.2500 #### [facility] [address] [place], [address] White blood cell (WBC) count Ordered By: Balwinder Alves on 09-14-2024 WBC (Bld) [#/Vol] 5.6 10*3/uL Normal 4.4-11.0 [facility] Comment on above: Order Comment: 102.2 Performed By: #### L 100.0500, L500.2500 #### [facility] [address] [place], [address] Basic Metabolic Profile (BMP )on 06-14-2024 BUN/CRE 13.6 RATIO Normal 10-20 [facility] Comment on above: Order Comment: 102.2 Performed By: #### M 100.2200, L400.2010 #### [facility] [address] [place], [address] CA,Total 9.5 mg/dL Normal 8.5-10.1 [facility] Comment on above: Order Comment: 102.2 Performed By: #### M 100.2199, .2010 #### [facility] [address] [place], [address] Chloride [Moles/Vol] 101 mmol/L Normal 98-107 [facility] Comment on above: Order Comment: 102.2 Performed By: #### M .2199, .2010 #### [facility] [address] [place], [address] CO2 [Moles/Vol] 30.0 mmol/L Normal 21.0-32.0 [facility] Comment on above: Order Comment: 102.2 Performed By: #### M , #### [facility] [address] [place], [address] Creatinine [Mass/Vol] 0.74 mg/dL Normal 0.55-1.02 [facility] Comment on above: Order Comment: 102.2 Result Comment: The validity of the calculated GFR GFRAA in patients over 70 years has not been determined. Clinical correlation is essential. Performed By: #### M .2199, #### [facility] [address] [place], [address] EST GFR - AA 98 mL/min Normal >60 [facility] Comment on above: Order Comment: 102.2 Result Comment: Afri can Kazakh GFR Calc Performed By: #### M 100.2199, #### [facility] [address] [place], [address] GAP 6 Normal 5-15 [facility] Comment on above: Order Comment: 102.2 Performed By: #### M 100.2200, #### [facility] [address] [place], [address] GFR/1.73 sq M.predicted among non-blacks MDRD (S/P/Bld) [Vol rate/Area] 81 mL/min/{1.73_m2} Normal >60 [facility] [place] [facility] Comment on above: Order Comment: 102.2 Result Comment: Non- GFR Calc Performed By: #### M .2199, #### [facility] [address] [place], [address] Glucose [Mass/Vol] 157 mg/dL High 74-106 [facility] Comment on above: Order Comment: 102.2 Result Comment: Fast ing Glucose result greater than or equal to 126 mg/dL suggests DIABETES MELLITUS per A.D.A. criteria. Performed By: #### M , #### [facility] [address] [place], [address] Potassium [Moles/Vol] 4.1 mmol/L Normal 3.5-5.1 [facility] Comment on above: Order Comment: 102.2 Performed By: #### M , #### [facility] [address] [place], [address] Sodium [Moles/Vol] 137 mmol/L Normal 136-145 [facility] Comment on above: Order Comment: 102.2 Performed By: #### M , #### [facility] [address] [place], [address] Urea nitrogen [Mass/Vol] 10 mg/dL Normal 7-18 [facility] Comment on above: Order Comment: 102.2 Performed By: #### M , #### [facility] [address] [place], [address] CBC-Complete Blood Cnt No Di ffon 06-14-2024 Erythrocyte distribution width (RBC) [Ratio] 14.5 % Normal 11.6-14.6 [facility] Comment on above: Order Comment: 102.2 Performed By: #### M , .2010 #### [facility] [address] [place], [address] Hematocrit (Bld) [Volume fraction] 36.9 % Low 37-47 [facility] Comment on above: Order Comment: 102.2 Performed By: #### M , .2010 #### [facility] [address] [place], [address] Hemoglobin (Bld) [Mass/Vol] 11.1 g/dL Low 12.0-15.0 [facility] Comment on above: Order Comment: 102.2 Performed By: #### M , #### [facility] [address] [place], [address] MCH (RBC) [Entitic mass] 28.6 pg Normal 27.0-32.0 [facility] Comment on above: Order Comment: 102.2 Performed By: #### M , #### [facility] [address] [place], [address] MCHC (RBC) [Mass/Vol] 30.1 g/dL Low 32-36 [facility] Comment on above: Order Comment: 102.2 Performed By: #### M , #### [facility] [address] [place], [address] MCV (RBC) [Entitic vol] 95.1 fL Normal 81-99 [facility] Comment on above: Order Comment: 102.2 Performed By: #### M , #### [facility] [address] [place], [address] Platelet mean volume (Bld) [Entitic vol] 8.7 fL Normal 6.2-12.0 [facility] [place] [facility] Comment on above: Order Comment: 102.2 Performed By: #### M , #### [facility] [address] [place], [address] Platelets (Bld) [#/Vol] 165 10*3/uL Normal 150-450 [facility] Comment on above: Order Comment: 102.2 Performed By: #### M , #### [facility] [address] [place], [address] RBC (Bld) [#/Vol] 3.88 10*6/uL Low 4.2-5.4 [facility] Comment on above: Order Comment: 102.2 Performed By: #### M , #### [facility] [address] [place], [address] RDW SD 50.7 fl High 35.1-43.9 [facility] [place] [facility] Comment on above: Order Comment: 102.2 Performed By: #### M , #### [facility] [address] [place], [address] WBC (Bld) [#/Vol] 5.4 10*3/uL Normal 4.4-11.0 [facility] Comment on above: Order Comment: 102.2 Performed By: #### M , #### [facility] [address] [place], [address] Hemoglobin A1con 06-14-2024 HbA1c (Bld) [Mass fraction] 6.7 % High 3.8-5.6 [facility] Comment on above: Order Comment: 102.2 Result Comment: Norm al < 5.7 % Prediabetic 5.7 - 6.4 % Diabetic >or= 6.5 % Please note range changes. Performed By: #### M , L4 #### [facility] [address] [place], [address] Lipid Profileon 06-14-2024 Cholesterol [Mass/Vol] 134 mg/dL Normal 200 [facility] Comment on above: Order Comment: 102.2 Result Comment: <200 mg/dL Desirable 200-240 mg/dL Borderline >240 mg/dL High Risk Performed By: #### M 100.2199, #### [facility] [address] [place], [address] Cholesterol in HDL [Mass/Vol] 66 mg/dL Normal [facility] Comment on above: Order Comment: 102.2 Result Comment: The drugs N-Acetylcysteine and Metamizole may falsely depress this assay. Reference Range HDL <40 mg/dL Low HDL Cholesterol HDL >or= 60 mg/dL High HDL Cholesterol Performed By: #### M , #### [facility] [address] [place], [address] Cholesterol in LDL [Mass/Vol] 43 mg/dL Normal 0-130 [facility] Comment on above: Order Comment: 102.2 Performed By: #### M , #### [facility] [address] [place], [address] Cholesterol in VLDL [Mass/Vol] 25 mg/dL Normal 5-40 [facility] Comment on above: Order Comment: 102.2 Performed By: #### M , #### [facility] [address] [place], [address] Triglyceride [Mass/Vol] 125 mg/dL Normal [facility] Comment on above: Order Comment: 102.2 Result Comment: The drugs N-Acetylcysteine and Metamizole may falsely depress this assay. Serum Triglycerides Reference Interval Normal <150 mg/dL Borderline high 150 - 199 mg/dL High 200 - 499 mg/dL Very High > or = 500 mg/dL Performed By: #### M , #### [facility] [address] [place], [place], [address] Vitamin D,25 Hydroxyon 06-14 Vitamin D 25-OH [...] [facility] [address] [place], [place], [id number] Urine Cultureon 06-01-2024 [facility] RESULTS CALLED TO Castro GARCIA 05/31/24 Jolynn Patterson. REPORT READ BACK BY . ESBL Escherichia coli [place] Count >100,000 MARKER A ESBL producing Organism [...] [facility] [address] [place], [place], [id number] Urine Cultureon 05-09-2024 [facility] RESULTS CALLED TO Lesli WALLACE 05/09/24 1156 Lorrie Patterson. REPORT READ BACK BY . Bacteria Ur Cult Copy of report sent to Infection Control Printer [id number] 05/09/24 [id number] ESSENCE. ESBL Escherichia coli [place] Count >100,000 MARKER A ESBL producing Organism [...] [facility] [address] [place], [place], [id number] Urinalysis, Routine (Dipstic k)on 05-06-2024 BILIRUBIN URINE Negative Normal Negative [facility] Comment on above: Order Comment: Urine , Random Performed By: #### M 100.0, L400 #### [facility] [address] [place], [place], [address] Clarity (U) Cloudy Normal Clear [facility] Comment on above: Order Comment: Urine , Random Performed By: #### M 100.2200, L400 #### [facility] [address] [place], [place], [address] Color (U) Yellow Normal Yellow [facility] Comment on above: Order Comment: Urine , Random Performed By: #### M .2199, L4.2010 #### [facility] [address] [place], [address] GLUCOSE, UR Normal Normal Normal [facility] Comment on above: Order Comment: Urine , Random Performed By: #### M , L4 #### [facility] [address] [place], [address] KETONE UR 5 mg/dl Abnormal Negative [facility] Comment on above: Order Comment: Urine , Random Performed By: #### M , L4 #### [facility] [address] [place], [address] LEUK ESTERASE 500 /ul Abnormal Negative [facility] Comment on above: Order Comment: Urine , Random Performed By: #### M , L4 #### [facility] [address] [place], [address] Nitrite Ql (U) Positive Abnormal Negative [facility] Comment on above: Order Comment: Urine , Random Performed By: #### M , L4 #### [facility] [address] [place], [address] OCCULT BLOOD-UR 250 /ul Abnormal Negative [facility] Comment on above: Order Comment: Urine , Random Performed By: #### M , L4 #### [facility] [address] [place], [address] pH UR 6.0 Normal 5.0 - 8.0 [facility] Comment on above: Order Comment: Urine , Random Performed By: #### M , L4 #### [facility] [address] [place], [address] PROT DIPSTX 30 mg/dl Abnormal Negative [facility] Comment on above: Order Comment: Urine , Random Performed By: #### M 100.2200, L4.2010 #### [facility] [address] [place], [address] SP.GR. DIPSTX 1.015 Normal 1.002-1.030 [facility] Comment on above: Order Comment: Urine , Random Performed By: #### M 100.2200, L4.2010 #### [facility] [address] [place], [address] UROBILI Normal Normal Normal [facility] Comment on above: Order Comment: Urine , Random Performed By: #### M 100.0, L4 #### [facility] [address] [place], [address] Urine Cultureon 03-28-2024 [facility] ESBL Escherichia col i [place] Count >100,000 MARKER A ESBL producing Organism [...] [facility] [address] [place], [address] Urinalysis, Routine (Dipstic k)on 03-25-2024 BILIRUBIN URINE Negative Normal Negative [facility] Comment on above: Order Comment: CLEAN CATCH Performed By: #### M , #### [facility] [address] [place], [address] Clarity (U) Sl. Cloudy Normal Clear [facility] Comment on above: Order Comment: CLEAN CATCH Performed By: #### M , #### [facility] [address] [place], [address] Color (U) Yellow Normal Yellow [facility] Comment on above: Order Comment: CLEAN CATCH Performed By: #### M , #### [facility] [address] [place], [address] GLUCOSE, UR Normal Normal Normal [facility] Comment on above: Order Comment: CLEAN CATCH Performed By: #### M #### [facility] [address] [place], [address] KETONE UR Negative Normal Negative [facility] Comment on above: Order Comment: CLEAN CATCH Performed By: #### M #### [facility] [address] [place], [address] LEUK ESTERASE 500 /ul Abnormal Negative [facility] Comment on above: Order Comment: CLEAN CATCH Performed By: #### M , L4 #### [facility] [address] [place], [address] Nitrite Ql (U) Positive Abnormal Negative [facility] Comment on above: Order Comment: CLEAN CATCH Performed By: #### M , L4 #### [facility] [address] [place], [address] OCCULT BLOOD-UR 250 /ul Abnormal Negative [facility] Comment on above: Order Comment: CLEAN CATCH Performed By: #### M 100.0, L4.2010 #### [facility] [address] [place], [address] pH UR 6.0 Normal 5.0 - 8.0 [facility] Comment on above: Order Comment: CLEAN CATCH Performed By: #### M 100.2199, L4.2010 #### [facility] [address] [place], [address] PROT DIPSTX 15 mg/dl Abnormal Negative [facility] Comment on above: Order Comment: CLEAN CATCH Performed By: #### M 100.2199, L4.2010 #### [facility] [address] [place], [address] SP.GR. DIPSTX 1.010 Normal 1.002-1.030 [facility] Comment on above: Order Comment: CLEAN CATCH Performed By: #### M , L4 #### [facility] [address] [place], [address] UROBILI Normal Normal Normal [facility] Comment on above: Order Comment: CLEAN CATCH Performed By: #### M , L4 #### [facility] [address] [place], [address] Basic Metabolic Profile (BMP )on 03-14-2024 BUN/CRE 18.1 RATIO Normal 10-20 [facility] Comment on above: Order Comment: 102.2 Performed By: #### L 100.0500, L500.2500 #### [facility] [address] [place], [address] CA,Total 9.1 mg/dL Normal 8.5-10.1 [facility] Comment on above: Order Comment: 102.2 Performed By: #### L 100.0500, L500.2500 #### [facility] [address] [place], [address] Chloride [Moles/Vol] 102 mmol/L Normal 98-107 [facility] Comment on above: Order Comment: 102.2 Performed By: #### L 100.0500, L500.2500 #### [facility] [address] [place], [address] CO2 [Moles/Vol] 31.0 mmol/L Normal 21.0-32.0 [facility] Comment on above: Order Comment: 102.2 Performed By: #### L 100.0500, L500.2500 #### [facility] [address] [place], [address] Creatinine [Mass/Vol] 0.50 mg/dL Low 0.55-1.02 [facility] Comment on above: Order Comment: 102.2 Result Comment: The validity of the calculated GFR GFRAA in patients over 70 years has not been determined. Clinical correlation is essential. Performed By: #### L 100.0500, L500.2500 #### [facility] [address] [place], [address] EST GFR - AA 154 mL/min Normal >60 [facility] Comment on above: Order Comment: 102.2 Result Comment: Afri can Kazakh GFR Calc Performed By: #### L 100.0500, L500.2500 #### [facility] [address] [place], [address] GAP 3 Low 5-15 [facility] Comment on above: Order Comment: 102.2 Performed By: #### L 100.0500, L500.2500 #### [facility] [address] [place], [address] GFR/1.73 sq M.predicted among non-blacks MDRD (S/P/Bld) [Vol rate/Area] 127 mL/min/{1.73_m2} Normal >60 [facility] Comment on above: Order Comment: 102.2 Result Comment: Non- GFR Calc Performed By: #### L 100.0500, L500.2500 #### [facility] [address] [place], [address] Glucose [Mass/Vol] 151 mg/dL High 74-106 [facility] Comment on above: Order Comment: 102.2 Result Comment: Fast ing Glucose result greater than or equal to 126 mg/dL suggests DIABETES MELLITUS per A.D.A. criteria. Performed By: #### L 100.0500, L500.2500 #### [facility] [address] [place], [address] Potassium [Moles/Vol] 4.5 mmol/L Normal 3.5-5.1 [facility] Comment on above: Order Comment: 102.2 Performed By: #### L 100.0500, L500.2500 #### [facility] [address] [place], [address] Sodium [Moles/Vol] 136 mmol/L Normal 136-145 [facility] Comment on above: Order Comment: 102.2 Performed By: #### L 100.0500, L500.2500 #### [facility] [address] [place], [address] Urea nitrogen [Mass/Vol] 9 mg/dL Normal 7-18 [facility] Comment on above: Order Comment: 102.2 Performed By: #### L 100.0500, L500.2500 #### [facility] [address] [place], [address] CBC-Complete Blood Cnt No Di ffon 03-14-2024 Erythrocyte distribution width (RBC) [Ratio] 14.0 % Normal 11.6-14.6 [facility] Comment on above: Performed By: #### L 100.0500, L500.2500 #### [facility] [address] [place], [address] Hematocrit (Bld) [Volume fraction] 40.3 % Normal 37-47 [facility] Comment on above: Performed By: #### L 100.0500, L500.2500 #### [facility] [address] [place], [address] Hemoglobin (Bld) [Mass/Vol] 12.1 g/dL Normal 12.0-15.0 [facility] Comment on above: Performed By: #### L 100.0500, L500.2500 #### [facility] [place] [facility] [address] [place], [address] MCH (RBC) [Entitic mass] 28.7 pg Normal 27.0-32.0 [facility] Comment on above: Performed By: #### L 100.0500, L500.2500 #### [facility] [address] [place], [address] MCHC (RBC) [Mass/Vol] 30.0 g/dL Low 32-36 [facility] Comment on above: Performed By: #### L 100.0500, L500.2500 #### [facility] [address] [place], [address] MCV (RBC) [Entitic vol] 95.5 fL Normal 81-99 [facility] Comment on above: Performed By: #### L 100.0500, L500.2500 #### [facility] [address] [place], [address] Platelet mean volume (Bld) [Entitic vol] 8.5 fL Normal 6.2-12.0 [facility] [place] [facility] Comment on above: Performed By: #### L 100.0500, L500.2500 #### [facility] [place] [facility] [address] [place], [address] Platelets (Bld) [#/Vol] 158 10*3/uL Normal 150-450 [facility] Comment on above: Performed By: #### L 100.0500, L500.2500 #### [facility] [address] [place], [address] RBC (Bld) [#/Vol] 4.22 10*6/uL Normal 4.2-5.4 [facility] Comment on above: Performed By: #### L 100.0500, L500.2500 #### [facility] [place] [facility] [address] [place], [address] RDW SD 48.5 fl High 35.1-43.9 [facility] Comment on above: Performed By: #### L 100.0500, L500.2500 #### [facility] [place] [facility] [address] [place], [address] WBC (Bld) [#/Vol] 7.1 10*3/uL Normal 4.4-11.0 [facility] Comment on above: Performed By: #### L 100.0500, L500.2500 #### [facility] [address] [place], [address] Basophil percentageOrdered B y: Balwinder Alves on 12-14-2023 Chloride [Moles/Vol] 105 mmol/L 98-107 [facility] Cholesterol [Mass/Vol] 128 mg/dL <200 [facility] Comment on above: <200 mg/dL Desirable 200-240 mg/dL Borderline >240 mg/dL High Risk Glucose [Mass/Vol] 132 mg/dL 74-106 [facility] Comment on above: Fasting Glucose resu lt greater than or equal to 126 mg/dL suggests DIABETES MELLITUS per A.D.A. criteria. Hemoglobin (Bld) [Mass/Vol] 12.5 g/dL 12.0-15.0 [facility] Potassium [Moles/Vol] 4.4 mmol/L 3.5-5.1 [facility] Sodium [Moles/Vol] 142 mmol/L 136-145 [facility] Triglyceride [Mass/Vol] 178 mg/dL <199 [facility] Comment on above: The drugs N-Acetylcy steine and Metamizole may falsely depress this assay.Serum Triglycerides Reference Interval Normal <150 mg/dL Borderline high 150 - 199 mg/dL High 200 - 499 mg/dL Very High > or = 500 mg/dL WBC (Bld) [#/Vol] 4.9 10*3/uL 4.4-11.0 [facility] Determination of erythrocyte mean corpuscular volume (MCV)Ordered By: Balwinder Alves on 12-14-2023 MCV (RBC) [Entitic vol] 92.6 fL 81-99 [facility] Erythrocyte distribution wid th ratioOrdered By: Balwinder [...] Center MCHC (RBC) [Mass/Vol] 30.4 g/dL 32-36 [facility] Platelet mean volume (Bld) [Entitic vol] 8.5 [...] GFR Calc Vitamin D 25-Hydroxy 42.9 ng/mL [facility] Comment on above: Vitamin D 25(OH) Sta tus Range Deficiency <20 ng/mL (50nmol/L) Insufficiency 20 - 30 ng/mL (50 - 75 nmol/L) Sufficiency 30 - 100 ng/mL (75 - 250 nmol/L) Toxicity >100 ng/mL (>250 nmol/L) VLDL Cholesterol 36 mg/dL 5-40 [facility] RBC Auto (Bld) [#/Vol]Ordere d By: Balwinder Alves on 12-14-2023 RBC (Bld) [#/Vol] 4.44 10*6/uL 4.2-5.4 [facility] Serum or plasma calcium jacqueline urement (mass/volume)Ordered By: Balwinder Alves on 12-14-2023 Calcium [Mass/Vol] 8.9 mg/dL 8.5-10.1 [facility] Serum or plasma creatinine m easurement (mass/volume)Ordered By: Balwinder Alves on 12-14-2023 Creatinine [Mass/Vol] 0.58 mg/dL 0.55-1.02 [facility] Comment on above: The validity of the [...] range changes. Office Visiton 12-09-2023 Follow-up visit [id number] Joy Bustamante 1945 F Date Provider Department Center 12/09/2023 [id number], MIA [facility] OR None No family history on file Level of Service:80998 [place] OFFICE/OUTPATIENT ESTABLISHED LOW MDM 20 MIN Reason for Visit and Comments: Follow-up [301880] - L fibula fx Normal [facility] Progress Noteon 12-09-2023 Progress Note [facility] [address] [place] [address] [address] [facility] [address] Dept: [phone] Dept Gumaro Bustamante 1945 [id number] 12/09/2023 HISTORY OF PRESENT ILLNESS: Gumaro returns [...] instructed on it (more content not included)... [facility] 36on 10-14-2023 36 Spoke with Beny at [facility] and clarified that Gumaro should bear weight in her boot until next visit and should use walker as needed for balance. [facility] 36 Name of Caller: Gareth at [facility] [...] requesting a call back. Office Name: Ortho [facility] Office Visiton 10-14-2023 Follow-up visit [id number] Joy Bustamante grace 1945 F Date Provider Department Center 10/14/2023 [id number] BETTENCOURT [facility] OR None No family history on file Level of Service:00694 [place] OFFICE/OUTPATIENT ESTABLISHED LOW MDM 20 MIN Reason for Visit and Comments: Follow-up [519660] - Left distal fibula fx DOI 07/02/23 [facility] Progress Noteon 10-14-2023 Progress Note [facility] [address] [place] [address] [place] [address] Dept: [phone] Dept Gumaro Daria 1945 [id number] 10/14/2023 HISTORY OF PRESENT ILLNESS: Gumaro returns [...] above p (more content not included)... Normal [facility] Clostridioides difficile nuc leic acid assay [...] on 09-14-2023 Chloride [Moles/Vol] 102 mmol/L 98-107 [facility] Glucose [Mass/Vol] 142 mg/dL 74-106 [facility] Comment on above: Fasting Glucose resu lt greater than or equal to 126 mg/dL suggests DIABETES MELLITUS per A.D.A. criteria. Potassium [Moles/Vol] 4.1 mmol/L 3.5-5.1 [facility] Sodium [Moles/Vol] 138 mmol/L 136-145 [facility] WBC (Bld) [#/Vol] 5.9 10*3/uL 4.4-11.0 [facility] Blood erythrocytes count (nu mber/volume)Ordered By: Balwinder Alves on 09-14-2023 RBC (Bld) [#/Vol] 4.96 10*6/uL 4.2-5.4 [facility] Blood hemoglobin measurement (mass/volume)Ordered By: Balwinder Alves [...] (RBC) [Entitic vol] 92.5 fL 81-99 [facility] Hematocrit Auto (Bld) [Volum e fraction]Ordered By: [...] 09-14-2023 MCHC (RBC) [Mass/Vol] 29.0 g/dL 32-36 [facility] No Panel InformationOrdered By: Balwinder Alves on 09-14-2023 Estimated GFR (MDRD) Amer 125 mL/min >60 [facility] Comment on above: GFR Calc Estimated GFR (MDRD) Non-Af Amer 103 mL/min >60 [facility] Comment on above: Non- GFR Calc Office Visiton 09-14-2023 Follow-up visit [id number] Joy Bustamante grace 1945 F Date Provider Department Center 09/14/2023 [id number] GRIGGS [facility] None No family history on file Level of Service:21442 [place] OFFICE/OUTPATIENT NEW MODERATE MDM 45-59 MINUTES Reason for Visit and Comments: New Patient [542] - LT distal fibula fx DOI 07/02/23 Normal [facility] Platelets bldOrdered By: Javed Alves on 09-14-2023 Platelets (Bld) [#/Vol] 196 10*3/uL 150-450 [facility] Progress Noteon 09-14-2023 Progress Note [facility] [address] [facility] [address] Dept: [phone] Dept Gumaro Bustamante 1945 [id number] 09/14/2023 HISTORY OF PRESENT ILLNESS: Gumaro is a 78 y.o. female here today for evaluation of her Left distal fibula fx DOI 07/02/23. Patient has been in a walking boot. Patient is diabetic. She is currently in a fci due to injury. She was supposed to be seen closer to her fx date but her appointments were canceled due to fci transportation issues. She has been nonweightbearing since her injury. Gumaro states the problem has been present for 3 months est Gumaro states the problem started as the result of a fall, tripped walking into her home. Gumaro has tried or has been treated with the following: walking boot, fci PT. Review of Systems Surgical Risk Factors: [...] given he (more content not included)... Normal [facility] Serum or plasma calcium jacqueline urement (mass/volume)Ordered By: Balwinder Alves on 09-14-2023 Calcium [Mass/Vol] 8.9 mg/dL 8.5-10.1 [facility] Serum or plasma creatinine m easurement (mass/volume)Ordered By: Balwinder Alves on 09-14-2023 Creatinine [Mass/Vol] 0.59 mg/dL 0.55-1.02 [facility] Comment on above: The validity of the calculated GFR & GFRAA in patients over 70 years has not been determined. Clinical correlation is essential. Serum or plasma urea nitroge n measurement (mass/volume)Ordered By: Balwinder Alevs on 09-14-2023 Urea nitrogen [Mass/Vol] 6 mg/dL [...] at the lateral malleolar fracture site. Normal [facility] XR FOOT 3+ VIEWS LEFTon 09-04 XR [...] at the lateral malleolar fracture site. Normal [facility] 36on 09-03-2023 36 Left distal fibula f x doi 07/02/23 she is in a boot. Can only be seen in [place] or [place]. No wads Normal [facility] 36on 09-02-2023 36 Gareth an RN at [facility] called [phone] ext [phone], he states that they just got Gumaro from [place] and they are looking for her to [...] today and then works again tomorrow. Normal [facility] 36on 07-17-2023 36 LVM to schedule with Dr. Ureña on Thursday at 1pm in [facility] or 9am in [place] if not already double booked. Normal [facility] .Auto DiffOrdered By: SYSTEM SYSTEM on 07-04-2023 Basophil, Absolute 0.0 103/mcL Normal 0.0-0.2 AO Wo rkflow [facility] Comment on above: Performed By: #### L IPID, ADIFF, ANEU, CMP, CBC, GFR #### [address] [address] Basophils/100 WBC (Bld) 0.4 % Normal 0.0-2.5 A [facility] Comment on above: Performed By: #### L IPID, ADIFF, ANEU, CMP, CBC, GFR #### [address] [address] Eosinophil, Absolute 0.4 103/mcL Normal 0.0-0.4 [facility] Comment on above: Performed By: #### L IPID, ADIFF, ANEU, CMP, CBC, GFR #### [address] [address] Eosinophils/100 WBC (Bld) 6.9 % Normal 0.0-7.0 [facility] Comment on above: Performed By: #### L IPID, ADIFF, ANEU, CMP, CBC, GFR #### [address] [address] Lymphocyte, Absolute 1.7 103/mcL Normal 0.8-3.9 [facility] Comment on above: Performed By: #### L IPID, ADIFF, ANEU, CMP, CBC, GFR #### [address] [address] Lymphocytes/100 WBC (Bld) 27.3 % Normal 10.0-50.0 [facility] Comment on above: Performed By: #### L IPID, ADIFF, ANEU, CMP, CBC, GFR #### [address] [address] Monocyte, Absolute 0.4 103/mcL Normal 0.2-1.0 AO Wo rkflow [facility] Comment on above: Performed By: #### L IPID, ADIFF, ANEU, CMP, CBC, GFR #### [address] [address] Monocytes/100 WBC (Bld) 6.4 % Normal 1.7-13.0 A O Workflow [facility] Comment on above: Performed By: #### L IPID, ADIFF, ANEU, CMP, CBC, GFR #### [address] [address] Neutrophils/100 WBC (Bld) 59.0 % Normal 37.0-80.0 [facility] Comment on above: Performed By: #### L IPID, ADIFF, ANEU, CMP, CBC, GFR #### [address] [address] .GFRon 07-04-2023 GFR 93 ml/min/1.73sqm Normal [facility] ([place]) Comment on above: Result Comment: GFR Population [...] IPID, ADIFF, ANEU, CMP, CBC, GFR #### [address] [address] GFR Non- 77 ml/min/1.73sqm Normal [facility] ([place]) Comment on above: Result Comment: GFR Population [...] IPID, ADIFF, ANEU, CMP, CBC, GFR #### [address] [address] .NEUABSOrdered By: SYSTEM SY STEM on 07-04-2023 Neutrophil, Absolute 3.7 103/mcL Normal 2.9-6.2 [facility] Comment on above: Performed By: #### L IPID, ADIFF, ANEU, CMP, CBC, GFR #### [address] [address] BMPon 07-04-2023 BUN/Creatinine Ratio 14 ratio Normal 7-27 [facility] ([place]) Comment on above: Performed By: #### L IPID, ADIFF, ANEU, CMP, CBC, GFR #### [address] [address] BMPOrdered By: SYSTEM SYSTEM on 07-04-2023 Calcium [Mass/Vol] 8.1 mg/dL Low 8.4-10.2 AO ADM SS Comment on above: Performed By: #### L IPID, ADIFF, ANEU, CMP, CBC, GFR #### [address] [address] Chloride [Moles/Vol] 104 mmol/L Normal 98-107 AO A DM SS Comment on above: Performed By: #### L IPID, ADIFF, ANEU, CMP, CBC, GFR #### [address] [address] CO2 [Moles/Vol] 29 mmol/L Normal 23-31 AO ADM SS Comment on above: Performed By: #### L IPID, ADIFF, ANEU, CMP, CBC, GFR #### [address] [address] Creatinine [Mass/Vol] 0.73 mg/dL Normal 0.55-1.02 AO ADM SS Comment on above: Performed By: #### L IPID, ADIFF, ANEU, CMP, CBC, GFR #### [address] [address] Electrolyte Balance 6.0 mEq/L Normal 4.0-15.0 AO AD M SS Comment on above: Performed By: #### L IPID, ADIFF, ANEU, CMP, CBC, GFR #### [place] [id number] Glucose [Mass/Vol] 145 mg/dL High 83-110 AO ADM SS Comment on above: Performed By: #### L IPID, ADIFF, ANEU, CMP, CBC, GFR #### [address] [address] Potassium [Moles/Vol] 4.9 mmol/L Normal 3.5-5.1 AO ADM SS Comment on above: Performed By: #### L IPID, ADIFF, ANEU, CMP, CBC, GFR #### [address] [address] Sodium [Moles/Vol] 139 mmol/L Normal 136-145 AO ADM SS Comment on above: Performed By: #### L IPID, ADIFF, ANEU, CMP, CBC, GFR #### [address] [address] Urea nitrogen [Mass/Vol] 10 mg/dL Normal 7-18 AO ADM SS Comment on above: Performed By: #### L IPID, ADIFF, ANEU, CMP, CBC, GFR #### [address] [address] CBCOrdered By: SYSTEM SYSTEM on 07-04-2023 Erythrocyte distribution width (RBC) [Ratio] 14.2 % Normal 11.5-14.5 AO Workflow [facility] Comment on above: Performed By: #### L IPID, ADIFF, ANEU, CMP, CBC, GFR #### [address] [address] Hematocrit (Bld) [Volume fraction] 35.4 % Low 37.0-47.0 AO Workflow SS Comment on above: Performed By: #### L IPID, ADIFF, ANEU, CMP, CBC, GFR #### [address] [address] MCH (RBC) [Entitic mass] 28.7 pg Normal 27.0-31.2 AO Workflow SS Comment on above: Performed By: #### L IPID, ADIFF, ANEU, CMP, CBC, GFR #### [address] [address] MCHC 32.4 G/dL Low 33.0-37.0 AO Workflow SS Comment on above: Performed By: #### L IPID, ADIFF, ANEU, CMP, CBC, GFR #### [address] [address] MCV (RBC) [Entitic vol] 88.6 fL Normal 80.0-94.0 A O Workflow SS Comment on above: Performed By: #### L IPID, ADIFF, ANEU, CMP, CBC, GFR #### [address] [address] Platelet mean volume (Bld) [Entitic vol] 6.5 fL Low 7.4-10.4 AO Workflow SS Comment on above: Performed By: #### L IPID, ADIFF, ANEU, CMP, CBC, GFR #### [address] [address] CBCon 07-04-2023 Hgb 11.4 G/dL Low 12.0-16.0 [facility] ([place]) Comment on above: Performed By: #### L IPID, ADIFF, ANEU, CMP, CBC, GFR #### [address] [address] Platelet 165 10 3/mcL Normal 130-400 [facility] ([place]) Comment on above: Performed By: #### L IPID, ADIFF, ANEU, CMP, CBC, GFR #### [place] [address] [place], [place] [address] RBC 3.99 10 6/mcL Low 4.20-5.40 [facility] ([place]) Comment on above: Performed By: #### L IPID, ADIFF, ANEU, CMP, CBC, GFR #### [place] [address] [place], [place] [address] WBC 6.3 10 3/mcL Normal 4.6-10.8 [facility] ([place]) Comment on above: Performed By: #### L IPID, ADIFF, ANEU, CMP, CBC, GFR #### [place] [address] [place], [place] [address] LABORATORYOrdered By: Darwin Diaz on 07-04-2023 Blood [...] IPID, ADIFF, ANEU, CMP, CBC, GFR #### [address] [address] .Auto Diffon 07-03-2023 Basophil, Absolute 0.0 10 3/mcL Normal 0.0-0.2 [facility] ([place]) Comment on above: Performed By: #### L IPID, ADIFF, ANEU, CMP, CBC, GFR #### [address] [address] Basophils/100 WBC (Bld) 0.5 % Normal 0.0-2.5 A [facility] ([place]) Comment on above: Performed By: #### L IPID, ADIFF, ANEU, CMP, CBC, GFR #### [address] [address] Eosinophil, Absolute 0.4 10 3/mcL Normal 0.0-0.4 [facility] ([place]) Comment on above: Performed By: #### L IPID, ADIFF, ANEU, CMP, CBC, GFR #### [address] [address] Eosinophils/100 WBC (Bld) 6.7 % Normal 0.0-7.0 [facility] ([place]) Comment on above: Performed By: #### L IPID, ADIFF, ANEU, CMP, CBC, GFR #### [address] [address] Lymphocyte, Absolute 1.8 10 3/mcL Normal 0.8-3.9 [facility] ([place]) Comment on above: Performed By: #### L IPID, ADIFF, ANEU, CMP, CBC, GFR #### [address] [address] Lymphocytes/100 WBC (Bld) 31.4 % Normal 10.0-50.0 [facility] ([place]) Comment on above: Performed By: #### L IPID, ADIFF, ANEU, CMP, CBC, GFR #### [address] [address] Monocyte, Absolute 0.4 10 3/mcL Normal 0.2-1.0 [facility] ([place]) Comment on above: Performed By: #### L IPID, ADIFF, ANEU, CMP, CBC, GFR #### [address] [address] Monocytes/100 WBC (Bld) 6.4 % Normal 1.7-13.0 A [facility] ([place]) Comment on above: Performed By: #### L IPID, ADIFF, ANEU, CMP, CBC, GFR #### [address] [address] Neutrophils/100 WBC (Bld) 55.0 % Normal 37.0-80.0 [facility] ([place]) Comment on above: Performed By: #### L IPID, ADIFF, ANEU, CMP, CBC, GFR #### [address] [address] .GFRon 07-03-2023 GFR 92 ml/min/1.73sqm Normal [facility] ([place]) Comment on above: Result Comment: GFR Population [...] IPID, ADIFF, ANEU, CMP, CBC, GFR #### [address] [address] GFR Non- 76 ml/min/1.73sqm Normal [facility] ([place]) Comment on above: Result Comment: GFR Population [...] IPID, ADIFF, ANEU, CMP, CBC, GFR #### [address] [address] .NEUABSon 07-03-2023 Neutrophil, Absolute 3.2 10 3/mcL Normal 2.9-6.2 [facility] ([place]) Comment on above: Performed By: #### L IPID, ADIFF, ANEU, CMP, CBC, GFR #### [address] [address] BMPon 07-03-2023 BUN/Creatinine Ratio 11 ratio Normal 7-27 [facility] ([place]) Comment on above: Performed By: #### L IPID, ADIFF, ANEU, CMP, CBC, GFR #### [address] [address] Calcium [Mass/Vol] 8.4 mg/dL Normal 8.4-10.2 [facility] ([place]) Comment on above: Performed By: #### L IPID, ADIFF, ANEU, CMP, CBC, GFR #### [address] [address] Chloride [Moles/Vol] 103 mmol/L Normal 98-107 [facility] ([place]) Comment on above: Performed By: #### L IPID, ADIFF, ANEU, CMP, CBC, GFR #### [address] [address] CO2 [Moles/Vol] 31 mmol/L Normal 23-31 [facility] ([place]) Comment on above: Performed By: #### L IPID, ADIFF, ANEU, CMP, CBC, GFR #### [address] [address] Creatinine [Mass/Vol] 0.74 mg/dL Normal 0.55-1.02 [facility] ([place]) Comment on above: Performed By: #### L IPID, ADIFF, ANEU, CMP, CBC, GFR #### [address] [address] Electrolyte Balance 6.0 mEq/L Normal 4.0-15.0 [facility] ([place]) Comment on above: Performed By: #### L IPID, ADIFF, ANEU, CMP, CBC, GFR #### [address] [address] Glucose [Mass/Vol] 165 mg/dL High 83-110 [facility] ([place]) Comment on above: Performed By: #### L IPID, ADIFF, ANEU, CMP, CBC, GFR #### [address] [address] Potassium [Moles/Vol] 4.6 mmol/L Normal 3.5-5.1 [facility] ([place]) Comment on above: Performed By: #### L IPID, ADIFF, ANEU, CMP, CBC, GFR #### [address] [address] Sodium [Moles/Vol] 140 mmol/L Normal 136-145 [facility] ([place]) Comment on above: Performed By: #### L IPID, ADIFF, ANEU, CMP, CBC, GFR #### [address] [address] Urea nitrogen [Mass/Vol] 8 mg/dL Normal 7-18 [facility] ([place]) Comment on above: Performed By: #### L IPID, ADIFF, ANEU, CMP, CBC, GFR #### [address] [address] CBCon 07-03-2023 Erythrocyte distribution width (RBC) [Ratio] 14.4 % Normal 11.5-14.5 [facility] ([place]) Comment on above: Performed By: #### L IPID, ADIFF, ANEU, CMP, CBC, GFR #### [place] [address] Hematocrit (Bld) [Volume fraction] 36.4 % Low 37.0-47.0 [facility] ([place]) Comment on above: Performed By: #### L IPID, ADIFF, ANEU, CMP, CBC, GFR #### [place] [address] Hgb 11.6 G/dL Low 12.0-16.0 [facility] ([place]) Comment on above: Performed By: #### L IPID, ADIFF, ANEU, CMP, CBC, GFR #### [address] [address] MCH (RBC) [Entitic mass] 28.3 pg Normal 27.0-31.2 [facility] ([place]) Comment on above: Performed By: #### L IPID, ADIFF, ANEU, CMP, CBC, GFR #### [place] [address] MCHC 31.9 G/dL Low 33.0-37.0 [facility] ([place]) Comment on above: Performed By: #### L IPID, ADIFF, ANEU, CMP, CBC, GFR #### [place] [address] MCV (RBC) [Entitic vol] 88.9 fL Normal 80.0-94.0 [facility] ([place]) Comment on above: Performed By: #### L IPID, ADIFF, ANEU, CMP, CBC, GFR #### [place] [id number] Platelet 158 10 3/mcL Normal 130-400 [facility] ([place]) Comment on above: Performed By: #### L IPID, ADIFF, ANEU, CMP, CBC, GFR #### [place] [address] Platelet mean volume (Bld) [Entitic vol] 6.6 fL Low 7.4-10.4 [facility] ([place]) Comment on above: Performed By: #### L IPID, ADIFF, ANEU, CMP, CBC, GFR #### [facility] [address] [place], [place] [address] RBC 4.10 10 6/mcL Low 4.20-5.40 [facility] ([place]) Comment on above: Performed By: #### L IPID, ADIFF, ANEU, CMP, CBC, GFR #### [place] [address] [place], [place] [address] WBC 5.8 10 3/mcL Normal 4.6-10.8 [facility] ([place]) Comment on above: Performed By: #### L IPID, ADIFF, ANEU, CMP, CBC, GFR #### [place] [address] [place], [place] [address] LABORATORYOrdered By: Jose Shepard on 07-03-2023 Blood [...] 07-03-2023 Magnesium [Mass/Vol] 1.8 mg/dL Normal 1.8-2.4 [facility] ([place]) Comment on above: Performed By: #### L IPID, ADIFF, ANEU, CMP, CBC, GFR #### [address] [address] .Auto Diffon 07-02-2023 Basophil, Absolute 0.0 10 3/mcL Normal 0.0-0.2 [facility] ([place]) Comment on above: Performed By: #### A DIFF, MG, ANEU, GFR, BMP, CBC #### [address] [address] Basophils/100 WBC (Bld) 0.7 % Normal 0.0-2.5 [facility] ([place]) Comment on above: Performed By: #### A DIFF, MG, ANEU, GFR, BMP, CBC #### [address] [address] Eosinophil, Absolute 0.3 10 3/mcL Normal 0.0-0.4 [facility] ([place]) Comment on above: Performed By: #### A DIFF, MG, ANEU, GFR, BMP, CBC #### [address] [address] Eosinophils/100 WBC (Bld) 5.6 % Normal 0.0-7.0 [facility] ([place]) Comment on above: Performed By: #### A DIFF, MG, ANEU, GFR, BMP, CBC #### [address] [address] Lymphocyte, Absolute 1.8 10 3/mcL Normal 0.8-3.9 [facility] ([place]) Comment on above: Performed By: #### A DIFF, MG, ANEU, GFR, BMP, CBC #### [address] [address] Lymphocytes/100 WBC (Bld) 33.2 % Normal 10.0-50.0 [facility] ([place]) Comment on above: Performed By: #### A DIFF, MG, ANEU, GFR, BMP, CBC #### [address] [address] Monocyte, Absolute 0.4 10 3/mcL Normal 0.2-1.0 [facility] ([place]) Comment on above: Performed By: #### A DIFF, MG, ANEU, GFR, BMP, CBC #### [address] [address] Monocytes/100 WBC (Bld) 7.8 % Normal 1.7-13.0 [facility] ([place] Comment on above: Performed By: #### A DIFF, MG, ANEU, GFR, BMP, CBC #### [address] [address] Neutrophils/100 WBC (Bld) 52.7 % Normal 37.0-80.0 [facility] ([place]) Comment on above: Performed By: #### A DIFF, MG, ANEU, GFR, BMP, CBC #### [address] [address] .GFRon 07-02-2023 GFR 85 ml/min/1.73sqm Normal [facility] ([place]) Comment on above: Result Comment: GFR Population [...] IPID, ADIFF, ANEU, CMP, CBC, GFR #### [address] [address] GFR Non- 70 ml/min/1.73sqm Normal [facility] ([place]) Comment on above: Result Comment: GFR Population [...] IPID, ADIFF, ANEU, CMP, CBC, GFR #### [address] [address] .NEUABSon 07-02-2023 Neutrophil, Absolute 2.9 10 3/mcL Normal 2.9-6.2 [facility] ([place]) Comment on above: Performed By: #### A DIFF, MG, ANEU, GFR, BMP, CBC #### [address] [address] BMPon 07-02-2023 BUN/Creatinine Ratio 11 ratio Normal 7-27 [facility] ([place]) Comment on above: Performed By: #### A DIFF, MG, ANEU, GFR, BMP, CBC #### [address] [address] Calcium [Mass/Vol] 8.5 mg/dL Normal 8.4-10.2 [facility] ([place]) Comment on above: Performed By: #### A DIFF, MG, ANEU, GFR, BMP, CBC #### [address] [address] Chloride [Moles/Vol] 102 mmol/L Normal 98-107 [facility] ([place]) Comment on above: Performed By: #### A DIFF, MG, ANEU, GFR, BMP, CBC #### [address] [address] CO2 [Moles/Vol] 31 mmol/L Normal 23-31 [facility] ([place]) Comment on above: Performed By: #### A DIFF, MG, ANEU, GFR, BMP, CBC #### [address] [address] Creatinine [Mass/Vol] 0.79 mg/dL Normal 0.55-1.02 [facility] ([place]) Comment on above: Performed By: #### A DIFF, MG, ANEU, GFR, BMP, CBC #### [address] [address] Electrolyte Balance 5.0 mEq/L Normal 4.0-15.0 [facility] ([place]) Comment on above: Performed By: #### A DIFF, MG, ANEU, GFR, BMP, CBC #### [place] [address] Glucose [Mass/Vol] 144 mg/dL High 83-110 [facility] ([place]) Comment on above: Performed By: #### A DIFF, MG, ANEU, GFR, BMP, CBC #### [place] [address] Potassium [Moles/Vol] 3.9 mmol/L Normal 3.5-5.1 [facility] ([place]) Comment on above: Performed By: #### A DIFF, MG, ANEU, GFR, BMP, CBC #### [address] [address] Sodium [Moles/Vol] 138 mmol/L Normal 136-145 [facility] ([place] Comment on above: Performed By: #### A DIFF, MG, ANEU, GFR, BMP, CBC #### [address] [address] Urea nitrogen [Mass/Vol] 9 mg/dL Normal 7-18 [facility] ([place]) Comment on above: Performed By: #### A DIFF, MG, ANEU, GFR, BMP, CBC #### [address] [address] CBCon 07-02-2023 Erythrocyte distribution width (RBC) [Ratio] 14.6 % High 11.5-14.5 [facility] ([place]) Comment on above: Performed By: #### A DIFF, MG, ANEU, GFR, BMP, CBC #### [address] [address] Hematocrit (Bld) [Volume fraction] 35.7 % Low 37.0-47.0 [facility] ([place]) Comment on above: Performed By: #### A DIFF, MG, ANEU, GFR, BMP, CBC #### [place] [id number] Hgb 11.3 G/dL Low 12.0-16.0 [facility] ([place]) Comment on above: Performed By: #### A DIFF, MG, ANEU, GFR, BMP, CBC #### [place] [address] MCH (RBC) [Entitic mass] 28.1 pg Normal 27.0-31.2 [facility] ([place]) Comment on above: Performed By: #### A DIFF, MG, ANEU, GFR, BMP, CBC #### [place] [address] MCHC 31.7 G/dL Low 33.0-37.0 [facility] ([place]) Comment on above: Performed By: #### A DIFF, MG, ANEU, GFR, BMP, CBC #### [address] [address] MCV (RBC) [Entitic vol] 88.6 fL Normal 80.0-94.0 [facility] ([place] Comment on above: Performed By: #### A DIFF, MG, ANEU, GFR, BMP, CBC #### [address] [address] Platelet 159 10 3/mcL Normal 130-400 [facility] ([place]) Comment on above: Performed By: #### A DIFF, MG, ANEU, GFR, BMP, CBC #### [address] [address] Platelet mean volume (Bld) [Entitic vol] 6.6 fL Low 7.4-10.4 [facility] ([place]) Comment on above: Performed By: #### A DIFF, MG, ANEU, GFR, BMP, CBC #### [place] [address] [place], [place] [address] RBC 4.03 10 6/mcL Low 4.20-5.40 [facility] ([place]) Comment on above: Performed By: #### A DIFF, MG, ANEU, GFR, BMP, CBC #### [place] [address] [place], [place] [address] WBC 5.5 10 3/mcL Normal 4.6-10.8 [facility] ([place]) Comment on above: Performed By: #### A DIFF, MG, ANEU, GFR, BMP, CBC #### [place] [address] [place], [place] [address] LABORATORYOrdered By: SYSTEM SYSTEM on 07-02-2023 Basophil, [...] 07-02-2023 Magnesium [Mass/Vol] 1.7 mg/dL Low 1.8-2.4 [facility] ([place]) Comment on above: Performed By: #### L IPID, ADIFF, ANEU, CMP, CBC, GFR #### [place] [address] .Auto Diffon 07-01-2023 Basophil, Absolute 0.0 10 3/mcL Normal 0.0-0.2 [facility] ([place] Comment on above: Performed By: #### L IPID, ADIFF, ANEU, CMP, CBC, GFR #### [address] [address] Basophils/100 WBC (Bld) 0.5 % Normal 0.0-2.5 [facility] ([place] Comment on above: Performed By: #### L IPID, ADIFF, ANEU, CMP, CBC, GFR #### [address] [address] Eosinophil, Absolute 0.4 10 3/mcL Normal 0.0-0.4 [facility] ([place]) Comment on above: Performed By: #### L IPID, ADIFF, ANEU, CMP, CBC, GFR #### [address] [address] Eosinophils/100 WBC (Bld) 5.7 % Normal 0.0-7.0 [facility] ([place]) Comment on above: Performed By: #### L IPID, ADIFF, ANEU, CMP, CBC, GFR #### [address] [address] Lymphocyte, Absolute 1.9 10 3/mcL Normal 0.8-3.9 [facility] ([place]) Comment on above: Performed By: #### L IPID, ADIFF, ANEU, CMP, CBC, GFR #### [address] [address] Lymphocytes/100 WBC (Bld) 28.0 % Normal 10.0-50.0 [facility] ([place]) Comment on above: Performed By: #### L IPID, ADIFF, ANEU, CMP, CBC, GFR #### [address] [address] Monocyte, Absolute 0.5 10 3/mcL Normal 0.2-1.0 [facility] ([place] Comment on above: Performed By: #### L IPID, ADIFF, ANEU, CMP, CBC, GFR #### [address] [address] Monocytes/100 WBC (Bld) 6.9 % Normal 1.7-13.0 [facility] ([place] Comment on above: Performed By: #### L IPID, ADIFF, ANEU, CMP, CBC, GFR #### [place] [address] [place], [place] [address] Neutrophils/100 WBC (Bld) 58.9 % Normal 37.0-80.0 [facility] ([place]) Comment on above: Performed By: #### L IPID, ADIFF, ANEU, CMP, CBC, GFR #### [place] [address] [place], [place] [address] .GFRon 07-01-2023 GFR 73 ml/min/1.73sqm Normal [facility] ([place]) Comment on above: Result Comment: GFR Population [...] ADIFF, ANEU, CMP, CBC, GFR #### [place] [address] [place], [place] [address] GFR Non- 60 ml/min/1.73sqm Normal [facility] ([place]) Comment on above: Result Comment: GFR Population [...] IPID, ADIFF, ANEU, CMP, CBC, GFR #### [address] [address] .NEUABSon 07-01-2023 Neutrophil, Absolute 4.1 10 3/mcL Normal 2.9-6.2 [facility] ([place] Comment on above: Performed By: #### L IPID, ADIFF, ANEU, CMP, CBC, GFR #### [address] [address] BMPon 07-01-2023 BUN/Creatinine Ratio 12 ratio Normal 7-27 [facility] ([place] Comment on above: Performed By: #### L IPID, ADIFF, ANEU, CMP, CBC, GFR #### [address] [address] Calcium [Mass/Vol] 8.5 mg/dL Normal 8.4-10.2 [facility] ([place] Comment on above: Performed By: #### L IPID, ADIFF, ANEU, CMP, CBC, GFR #### [address] [address] Chloride [Moles/Vol] 103 mmol/L Normal 98-107 [facility] ([place] Comment on above: Performed By: #### L IPID, ADIFF, ANEU, CMP, CBC, GFR #### [address] [address] CO2 [Moles/Vol] 32 mmol/L High 23-31 [facility] ([place]) Comment on above: Performed By: #### L IPID, ADIFF, ANEU, CMP, CBC, GFR #### [address] [address] Creatinine [Mass/Vol] 0.90 mg/dL Normal 0.55-1.02 [facility] ([place]) Comment on above: Performed By: #### L IPID, ADIFF, ANEU, CMP, CBC, GFR #### [address] [address] Electrolyte Balance 5.0 mEq/L Normal 4.0-15.0 [facility] ([place] Comment on above: Performed By: #### L IPID, ADIFF, ANEU, CMP, CBC, GFR #### [address] [address] Glucose [Mass/Vol] 138 mg/dL High 83-110 [facility] ([place] Comment on above: Performed By: #### L IPID, ADIFF, ANEU, CMP, CBC, GFR #### [address] [address] Potassium [Moles/Vol] 4.0 mmol/L Normal 3.5-5.1 [facility] ([place]) Comment on above: Performed By: #### L IPID, ADIFF, ANEU, CMP, CBC, GFR #### [address] [address] Sodium [Moles/Vol] 140 mmol/L Normal 136-145 [facility] ([place] Comment on above: Performed By: #### L IPID, ADIFF, ANEU, CMP, CBC, GFR #### [address] [address] Urea nitrogen [Mass/Vol] 11 mg/dL Normal 7-18 [facility] ([place] Comment on above: Performed By: #### L IPID, ADIFF, ANEU, CMP, CBC, GFR #### [address] [address] CBCon 07-01-2023 Erythrocyte distribution width (RBC) [Ratio] 14.6 % High 11.5-14.5 [facility] ([place]) Comment on above: Performed By: #### L IPID, ADIFF, ANEU, CMP, CBC, GFR #### [address] [address] Hematocrit (Bld) [Volume fraction] 36.2 % Low 37.0-47.0 [facility] ([place]) Comment on above: Performed By: #### L IPID, ADIFF, ANEU, CMP, CBC, GFR #### [address] [address] Hgb 11.6 G/dL Low 12.0-16.0 [facility] ([place]) Comment on above: Performed By: #### L IPID, ADIFF, ANEU, CMP, CBC, GFR #### [place] [address] MCH (RBC) [Entitic mass] 28.1 pg Normal 27.0-31.2 [facility] ([place] Comment on above: Performed By: #### L IPID, ADIFF, ANEU, CMP, CBC, GFR #### [place] [address] MCHC 32.0 G/dL Low 33.0-37.0 [facility] ([place]) Comment on above: Performed By: #### L IPID, ADIFF, ANEU, CMP, CBC, GFR #### [place] [address] MCV (RBC) [Entitic vol] 87.8 fL Normal 80.0-94.0 [facility] ([place] Comment on above: Performed By: #### L IPID, ADIFF, ANEU, CMP, CBC, GFR #### [place] [id number] Platelet 170 10 3/mcL Normal 130-400 [facility] ([place] Comment on above: Performed By: #### L IPID, ADIFF, ANEU, CMP, CBC, GFR #### [address] [address] Platelet mean volume (Bld) [Entitic vol] 6.4 fL Low 7.4-10.4 [facility] ([place]) Comment on above: Performed By: #### L IPID, ADIFF, ANEU, CMP, CBC, GFR #### [place] [address] RBC 4.12 10 6/mcL Low 4.20-5.40 [facility] ([place]) Comment on above: Performed By: #### L IPID, ADIFF, ANEU, CMP, CBC, GFR #### [address] [address] WBC 6.9 10 3/mcL Normal 4.6-10.8 [facility] ([place]) Comment on above: Performed By: #### L IPID, ADIFF, ANEU, CMP, CBC, GFR #### [address] [address] MGon 07-01-2023 Magnesium [Mass/Vol] 1.5 mg/dL Low 1.8-2.4 [facility] ([place] Comment on above: Performed By: #### L IPID, ADIFF, ANEU, CMP, CBC, GFR #### [address] [address] .Auto Diffon 06-30-2023 Basophil, Absolute 0.0 10 3/mcL Normal 0.0-0.2 [facility]) Comment on above: Performed By: #### L IPID, ADIFF, ANEU, CMP, CBC, GFR #### [address] [address] Basophils/100 WBC (Bld) 0.4 % Normal 0.0-2.5 [facility] ([place] Comment on above: Performed By: #### L IPID, ADIFF, ANEU, CMP, CBC, GFR #### [address] [address] Eosinophil, Absolute 0.5 10 3/mcL High 0.0-0.4 [facility] ([place]) Comment on above: Performed By: #### L IPID, ADIFF, ANEU, CMP, CBC, GFR #### [address] [address] Eosinophils/100 WBC (Bld) 4.7 % Normal 0.0-7.0 [facility] ([place]) Comment on above: Performed By: #### L IPID, ADIFF, ANEU, CMP, CBC, GFR #### [address] [place] [address] Lymphocyte, Absolute 1.7 10 3/mcL Normal 0.8-3.9 [facility] ([place]) Comment on above: Performed By: #### L IPID, ADIFF, ANEU, CMP, CBC, GFR #### [address] [address] Lymphocytes/100 WBC (Bld) 17.7 % Normal 10.0-50.0 [facility] ([place]) Comment on above: Performed By: #### L IPID, ADIFF, ANEU, CMP, CBC, GFR #### [address] [address] Monocyte, Absolute 0.5 10 3/mcL Normal 0.2-1.0 [facility] ([place] Comment on above: Performed By: #### L IPID, ADIFF, ANEU, CMP, CBC, GFR #### [address] [address] Monocytes/100 WBC (Bld) 5.4 % Normal 1.7-13.0 [facility] ([place]) Comment on above: Performed By: #### L IPID, ADIFF, ANEU, CMP, CBC, GFR #### [address] [address] Neutrophils/100 WBC (Bld) 71.8 % Normal 37.0-80.0 [facility] ([place]) Comment on above: Performed By: #### L IPID, ADIFF, ANEU, CMP, CBC, GFR #### [address] [address] .GFRon 06-30-2023 GFR 75 ml/min/1.73sqm Normal [facility] ([place] Comment on above: Result Comment: GFR Population [...] IPID, ADIFF, ANEU, CMP, CBC, GFR #### [address] [address] GFR Non- 62 ml/min/1.73sqm Normal [facility] ([place] Comment on above: Result Comment: GFR Population [...] IPID, ADIFF, ANEU, CMP, CBC, GFR #### [address] [address] .MDWon 06-30-2023 Monocyte Distribution Width 17.82 Normal 0.00-20.00 [facility] ([place]) Comment on above: Result Comment: For ED adult patients suspected of sepsis, MDW<=20.0 does not rule out sepsis or risk of sepsis Performed By: #### L IPID, ADIFF, ANEU, CMP, CBC, GFR #### [address] [address] .NEUABSon 06-30-2023 Neutrophil, Absolute 7.1 10 3/mcL High 2.9-6.2 [facility] ([place]) Comment on above: Performed By: #### L IPID, ADIFF, ANEU, CMP, CBC, GFR #### [address] [address] BMPon 06-30-2023 BUN/Creatinine Ratio 10 ratio Normal 7-27 [facility] ([place] Comment on above: Performed By: #### L IPID, ADIFF, ANEU, CMP, CBC, GFR #### [address] [address] Calcium [Mass/Vol] 9.0 mg/dL Normal 8.4-10.2 [facility] ([place] Comment on above: Performed By: #### L IPID, ADIFF, ANEU, CMP, CBC, GFR #### [address] [address] Chloride [Moles/Vol] 100 mmol/L Normal 98-107 [facility] ([place] Comment on above: Performed By: #### L IPID, ADIFF, ANEU, CMP, CBC, GFR #### [place] [address] CO2 [Moles/Vol] 33 mmol/L High 23-31 [facility] ([place]) Comment on above: Performed By: #### L IPID, ADIFF, ANEU, CMP, CBC, GFR #### [place] [address] Creatinine [Mass/Vol] 0.88 mg/dL Normal 0.55-1.02 [facility] ([place]) Comment on above: Performed By: #### L IPID, ADIFF, ANEU, CMP, CBC, GFR #### [address] [address] Electrolyte Balance 6.0 mEq/L Normal 4.0-15.0 [facility] ([place] Comment on above: Performed By: #### L IPID, ADIFF, ANEU, CMP, CBC, GFR #### [place] [address] Glucose [Mass/Vol] 147 mg/dL High 83-110 [facility] ([place] Comment on above: Performed By: #### L IPID, ADIFF, ANEU, CMP, CBC, GFR #### [address] [address] Potassium [Moles/Vol] 3.8 mmol/L Normal 3.5-5.1 [facility] ([place]) Comment on above: Performed By: #### L IPID, ADIFF, ANEU, CMP, CBC, GFR #### [address] [address] Sodium [Moles/Vol] 139 mmol/L Normal 136-145 [facility] ([place] Comment on above: Performed By: #### L IPID, ADIFF, ANEU, CMP, CBC, GFR #### [address] [address] Urea nitrogen [Mass/Vol] 9 mg/dL Normal 7-18 [facility] ([place]) Comment on above: Performed By: #### L IPID, ADIFF, ANEU, CMP, CBC, GFR #### [address] [address] CBCon 06-30-2023 Erythrocyte distribution width (RBC) [Ratio] 14.6 % High 11.5-14.5 [facility] ([place]) Comment on above: Performed By: #### L IPID, ADIFF, ANEU, CMP, CBC, GFR #### [address] [address] Hematocrit (Bld) [Volume fraction] 42.0 % Normal 37.0-47.0 [facility] ([place]) Comment on above: Performed By: #### L IPID, ADIFF, ANEU, CMP, CBC, GFR #### [address] [address] Hgb 13.4 G/dL Normal 12.0-16.0 [facility] ([place]) Comment on above: Performed By: #### L IPID, ADIFF, ANEU, CMP, CBC, GFR #### [address] [address] MCH (RBC) [Entitic mass] 28.4 pg Normal 27.0-31.2 [facility] ([place]) Comment on above: Performed By: #### L IPID, ADIFF, ANEU, CMP, CBC, GFR #### [address] [address] MCHC 32.0 G/dL Low 33.0-37.0 [facility] ([place]) Comment on above: Performed By: #### L IPID, ADIFF, ANEU, CMP, CBC, GFR #### [address] [address] MCV (RBC) [Entitic vol] 88.5 fL Normal 80.0-94.0 [facility] ([place] Comment on above: Performed By: #### L IPID, ADIFF, ANEU, CMP, CBC, GFR #### [address] [address] Platelet 188 10 3/mcL Normal 130-400 [facility] ([place]) Comment on above: Performed By: #### L IPID, ADIFF, ANEU, CMP, CBC, GFR #### [place] [address] Platelet mean volume (Bld) [Entitic vol] 6.2 fL Low 7.4-10.4 [facility] ([place]) Comment on above: Performed By: #### L IPID, ADIFF, ANEU, CMP, CBC, GFR #### [address] [address] RBC 4.74 10 6/mcL Normal 4.20-5.40 [facility] ([place]) Comment on above: Performed By: #### L IPID, ADIFF, ANEU, CMP, CBC, GFR #### [address] [address] WBC 9.9 10 3/mcL Normal 4.6-10.8 [facility] ([place]) Comment on above: Performed By: #### L IPID, ADIFF, ANEU, CMP, CBC, GFR #### [place] [id number] LABORATORYOrdered By: SYSTEM SYSTEM on 06-30-2023 Monocyte distribution width Auto (Bld) [Entitic vol] 17.82 1 Invalid Interpretation Code 0.00 - 20.00 AO Workflow SS Comment on above: Result Comment: For ED adult patients suspected of sepsis, MDW<=20.0 does not rule out sepsis or risk of sepsis [facility] 06-30-2023 U Creatinine 90.7 mg/dL Normal 28.0-117.0 [facility] ([place]) Comment on above: Performed By: #### L IPID, ADIFF, ANEU, CMP, CBC, GFR #### [place] [address] [place], [place] [address] U Microalb 1927 mcg/dL Normal [facility] ([place] Comment on above: Performed By: #### L IPID, ADIFF, ANEU, CMP, CBC, GFR #### [place] [address] [place], [place] [address] U Ratio Alb/Cre 21 mcg/mg Normal 0-30 [facility] ([place] Comment on above: Performed By: #### L IPID, ADIFF, ANEU, CMP, CBC, GFR #### [place] [address] [place], [place] [address] XR ANKLE AND FOOT 6 VIEWS [facility] 06-30-2023 XR ANKLE AND FOOT 6 VIEWS [...] 06/30/2023 4:00:26 PM Ordering Provider: VICENTEALFONZO [facility] ([place] XR KNEE 1 OR 2 VIEWS LEFTon [...] 06/30/2023 4:01:46 PM Ordering Provider: VICENTE [facility] ([place]) .Auto Diffon 02-05-2023 Basophil, Absolute 0.1 10 3/mcL Normal 0.0-0.2 [facility]) Comment on above: Performed By: #### L IPID, ADIFF, ANEU, CMP, CBC, GFR #### [address] [address] Basophils/100 WBC (Bld) 0.7 % Normal 0.0-2.5 [facility] ([place] Comment on above: Performed By: #### L IPID, ADIFF, ANEU, CMP, CBC, GFR #### [place] [address] [place], [place] [address] Eosinophil, Absolute 0.7 10 3/mcL High 0.0-0.4 [facility] ([place]) Comment on above: Performed By: #### L IPID, ADIFF, ANEU, CMP, CBC, GFR #### [address] [address] Eosinophils/100 WBC (Bld) 8.8 % High 0.0-7.0 [facility] ([place] Comment on above: Performed By: #### L IPID, ADIFF, ANEU, CMP, CBC, GFR #### [address] [address] Lymphocyte, Absolute 2.8 10 3/mcL Normal 0.8-3.9 [facility] ([place] Comment on above: Performed By: #### L IPID, ADIFF, ANEU, CMP, CBC, GFR #### [address] [address] Lymphocytes/100 WBC (Bld) 34.0 % Normal 10.0-50.0 [facility] ([place] Comment on above: Performed By: #### L IPID, ADIFF, ANEU, CMP, CBC, GFR #### [address] [address] Monocyte, Absolute 0.6 10 3/mcL Normal 0.2-1.0 [facility] ([place] Comment on above: Performed By: #### L IPID, ADIFF, ANEU, CMP, CBC, GFR #### [address] [address] Monocytes/100 WBC (Bld) 7.3 % Normal 1.7-13.0 [facility] ([place] Comment on above: Performed By: #### L IPID, ADIFF, ANEU, CMP, CBC, GFR #### [address] [address] Neutrophils/100 WBC (Bld) 49.2 % Normal 37.0-80.0 [facility] ([place] Comment on above: Performed By: #### L IPID, ADIFF, ANEU, CMP, CBC, GFR #### [address] [address] .GFRon 02-05-2023 GFR Non- 63 ml/min/1.73sqm Normal [facility] ([place] Comment on above: Result Comment: GFR Population [...] IPID, ADIFF, ANEU, CMP, CBC, GFR #### [address] [address] GFR 76 ml/min/1.73sqm Normal [facility] ([place] Comment on above: Result Comment: GFR Population [...] IPID, ADIFF, ANEU, CMP, CBC, GFR #### [address] [address] .NEUABSon 02-05-2023 Neutrophil, Absolute 4.1 10 3/mcL Normal 2.9-6.2 [facility] ([place] Comment on above: Performed By: #### L IPID, ADIFF, ANEU, CMP, CBC, GFR #### [address] [address] CBCon 02-05-2023 Erythrocyte distribution width (RBC) [Ratio] 14.1 % Normal 11.5-14.5 [facility] ([place] Comment on above: Performed By: #### L IPID, ADIFF, ANEU, CMP, CBC, GFR #### [place] [address] Hematocrit (Bld) [Volume fraction] 45.2 % Normal 37.0-47.0 [facility] ([place] Comment on above: Performed By: #### L IPID, ADIFF, ANEU, CMP, CBC, GFR #### [place] [id number] Hgb 14.4 G/dL Normal 12.0-16.0 [facility] ([place]) Comment on above: Performed By: #### L IPID, ADIFF, ANEU, CMP, CBC, GFR #### [place] [address] MCH (RBC) [Entitic mass] 26.9 pg Low 27.0-31.2 [facility] ([place]) Comment on above: Performed By: #### L IPID, ADIFF, ANEU, CMP, CBC, GFR #### [place] [address] MCHC 31.8 G/dL Low 33.0-37.0 [facility] ([place]) Comment on above: Performed By: #### L IPID, ADIFF, ANEU, CMP, CBC, GFR #### [place] [id number] MCV (RBC) [Entitic vol] 84.7 fL Normal 80.0-94.0 [facility] ([place]) Comment on above: Performed By: #### L IPID, ADIFF, ANEU, CMP, CBC, GFR #### [place] [id number] Platelet 237 10 3/mcL Normal 130-400 [facility] ([place]) Comment on above: Performed By: #### L IPID, ADIFF, ANEU, CMP, CBC, GFR #### [place] [address] Platelet mean volume (Bld) [Entitic vol] 6.5 fL Low 7.4-10.4 [facility] ([place]) Comment on above: Performed By: #### L IPID, ADIFF, ANEU, CMP, CBC, GFR #### [address] [address] RBC 5.34 10 6/mcL Normal 4.20-5.40 [facility] ([place]) Comment on above: Performed By: #### L IPID, ADIFF, ANEU, CMP, CBC, GFR #### [address] [address] WBC 8.3 10 3/mcL Normal 4.6-10.8 [facility] ([place]) Comment on above: Performed By: #### L IPID, ADIFF, ANEU, CMP, CBC, GFR #### [address] [address] CMPon 02-05-2023 Albumin Level 3.9 G/dL Normal 3.4-4.8 [facility] ([place]) Comment on above: Performed By: #### L IPID, ADIFF, ANEU, CMP, CBC, GFR #### [place] [address] Albumin/Globulin [Mass ratio] 1.3 {ratio} Normal 1.1-2.5 [facility] ([place]) Comment on above: Performed By: #### L IPID, ADIFF, ANEU, CMP, CBC, GFR #### [address] [address] ALP [Catalytic activity/Vol] 65 U/L Normal 40-135 [facility] ([place]) Comment on above: Performed By: #### L IPID, ADIFF, ANEU, CMP, CBC, GFR #### [address] [address] ALT [Catalytic activity/Vol] 20 U/L Normal 14-59 [facility] ([place]) Comment on above: Performed By: #### L IPID, ADIFF, ANEU, CMP, CBC, GFR #### [address] [address] AST [Catalytic activity/Vol] 19 U/L Normal 10-40 [facility] ([place]) Comment on above: Performed By: #### L IPID, ADIFF, ANEU, CMP, CBC, GFR #### [address] [address] Bili Total 0.7 mg/dL Normal 0.2-1.0 [facility] ([place]) Comment on above: Result Comment: Use of this assay is not recommended for patients undergoing treatment with eltrombopag due to the potential for falsely elevated results. Performed By: #### L IPID, ADIFF, ANEU, CMP, CBC, GFR #### [address] [address] BUN/Creatinine Ratio 14 ratio Normal 7-27 [facility] ([place]) Comment on above: Performed By: #### L IPID, ADIFF, ANEU, CMP, CBC, GFR #### [address] [address] Calcium [Mass/Vol] 10.1 mg/dL Normal 8.4-10.2 [facility] ([place]) Comment on above: Performed By: #### L IPID, ADIFF, ANEU, CMP, CBC, GFR #### [address] [address] Chloride [Moles/Vol] 100 mmol/L Normal 98-107 [facility] ([place]) Comment on above: Performed By: #### L IPID, ADIFF, ANEU, CMP, CBC, GFR #### [address] [address] CO2 [Moles/Vol] 33 mmol/L High 23-31 [facility] ([place]) Comment on above: Performed By: #### L IPID, ADIFF, ANEU, CMP, CBC, GFR #### [address] [address] Creatinine [Mass/Vol] 0.87 mg/dL Normal 0.55-1.02 [facility] ([place]) Comment on above: Performed By: #### L IPID, ADIFF, ANEU, CMP, CBC, GFR #### [address] [address] Electrolyte Balance 8.0 mEq/L Normal 4.0-15.0 [facility] ([place]) Comment on above: Performed By: #### L IPID, ADIFF, ANEU, CMP, CBC, GFR #### [address] [address] Globulin 3.0 G/dL Normal [facility] ([place]) Comment on above: Performed By: #### L IPID, ADIFF, ANEU, CMP, CBC, GFR #### [address] [address] Glucose [Mass/Vol] 127 mg/dL High 83-110 [facility] ([place]) Comment on above: Performed By: #### L IPID, ADIFF, ANEU, CMP, CBC, GFR #### [address] [address] Potassium [Moles/Vol] 4.7 mmol/L Normal 3.5-5.1 [facility] ([place]) Comment on above: Performed By: #### L IPID, ADIFF, ANEU, CMP, CBC, GFR #### [address] [address] Sodium [Moles/Vol] 141 mmol/L Normal 136-145 [facility] ([place]) Comment on above: Performed By: #### L IPID, ADIFF, ANEU, CMP, CBC, GFR #### [address] [address] Total Protein 6.9 G/dL Normal 6.4-8.2 [facility] ([place]) Comment on above: Performed By: #### L IPID, ADIFF, ANEU, CMP, CBC, GFR #### [address] [address] Urea nitrogen [Mass/Vol] 12 mg/dL Normal 7-18 [facility] ([place]) Comment on above: Performed By: #### L IPID, ADIFF, ANEU, CMP, CBC, GFR #### [place] [id number] [place], [place] [address] LABORATORYOrdered By: SYSTEM SYSTEM on 02-05-2023 Albumin [...] 02-05-2023 Cholesterol [Mass/Vol] 147 mg/dL Normal 0-200 [facility] ([place]) Comment on above: Result Comment: Chol esterol Reference Interval: Less than 200 Desirable 200-239 Borderline high risk 240 and above High risk Performed By: #### L IPID, ADIFF, ANEU, CMP, CBC, GFR #### [place] [address] [place], [place] [address] Cholesterol in HDL [Mass/Vol] 59 mg/dL Normal 40-60 [facility] ([place]) Comment on above: Performed By: #### L IPID, ADIFF, ANEU, CMP, CBC, GFR #### [facility] [address] [place], [place] [address] Cholesterol in LDL [Mass/Vol] 54 mg/dL Normal 0-130 [facility] ([place]) Comment on above: Performed By: #### L IPID, ADIFF, ANEU, CMP, CBC, GFR #### [facility] [address] [place], [place] [address] Triglyceride [Mass/Vol] 172 mg/dL High 0-150 [facility] ([place]) Comment on above: Result Comment: Trig lyceride Reference Interval: Less than 150 Normal 150-199 Borderline high risk 200-499 High risk 500 or higher Very high risk Performed By: #### L IPID, ADIFF, ANEU, CMP, CBC, GFR #### [place] [address] LABORATORYOrdered By: Karli Benites on 01-29-2022 Albumin [...] Facility 02-06-2024 20:00-0400 Body temperature 98 [degF] [facility] 02-06-2024 20:00-0400 Diastolic blood pressure 73 mm[Hg] [facility] 02-06-2024 20:00-0400 Heart rate 68 /min [facility] 02-06-2024 20:00-0400 Respiratory rate 18 /min [facility] 02-06-2024 20:00-0400 SaO2% (BldA) [Mass fraction] 97 % [facility] 02-06-2024 20:00-0400 Systolic blood pressure 173 mm[Hg] [facility] 02-06-2024 15:49-0400 Body height 175.26 cm [facility] 02-06-2024 15:49-0400 Body mass index (BMI) [Ratio] 38.9 kg/m2 [facility] 02-06-2024 15:49-0400 Body weight 119.74 kg [facility] 12-09-2023 10:13-0500 Body weight 120.2 kg Tete FITZGERALD Work Phone: [facility] 12-09-2023 10:13-0500 Diastolic blood pressure 66 mm[Hg] Tete FITZGERALD Work Phone: [facility] 12-09-2023 10:13-0500 Heart rate 69 /min Tete FITZGERALD Work Phone: [facility] 12-09-2023 10:13-0500 Systolic blood pressure 190 mm[Hg] Tete FITZGERALD Work Phone: [facility] 07-16-2023 10:53-0400 Body height 167.64 cm TNOE Brewer NP Work Phone: [facility] 07-16-2023 10:53-0400 Body mass index (BMI) [Ratio] 45.8 kg/m2 HEALTH SERVICES ADMINISTRATOR-C Laci Beltranwinnie HEALTH SERVICES ADMINISTRATOR Work Phone: [facility] 07-16-2023 10:53-0400 Body weight 128.82 kg HEALTH SERVICES ADMINISTRATOR-C Laci Osman HEALTH SERVICES ADMINISTRATOR Work Phone: [facility] 07-04-2023 19:10-0400 Body temperature 98.24 [degF] ROHAN CASPERER CONSIGNEE-MORTGAGE PROCESSOR [facility] 07-04-2023 19:10-0400 Diastolic Blood Pressure Non-Invasive 46 1 ROHAN MCDOWELL CONSIGNEE-MORTGAGE PROCESSOR [facility] 07-04-2023 19:10-0400 Heart rate 78 /min ROHAN MCDOWELL CONSIGNEE-MORTGAGE PROCESSOR [facility] 07-04-2023 19:10-0400 Reason For Taking VItal Signs ROHAN MCDOWELL CONSIGNEE-MORTGAGE PROCESSOR [facility] 07-04-2023 19:10-0400 Respiratory rate 18 /min ROHAN JULY CONSIGNEE-MORTGAGE PROCESSOR [facility] 07-04-2023 19:10-0400 Systolic Blood Pressure Non-Invasive 142 1 ROHAN MCDOWELL CONSIGNEE-MORTGAGE PROCESSOR [facility] 07-04-2023 16:39-0400 Diastolic Blood Pressure Non-Invasive 60 1 ROHAN CASPERER CONSIGNEE-MORTGAGE PROCESSOR [facility] 07-04-2023 16:39-0400 Systolic Blood Pressure Non-Invasive 158 1 ROHAN CASPERER CONSIGNEE-MORTGAGE PROCESSOR [facility] 07-04-2023 16:22-0400 Body temperature 97.88 [degF] ROHAN CASPERER CONSIGNEE-MORTGAGE PROCESSOR [facility] 07-04-2023 16:22-0400 Diastolic Blood Pressure Non-Invasive 121 1 ROHAN KAPPER CONSIGNEE-MORTGAGE PROCESSOR [facility] 07-04-2023 16:22-0400 Heart rate 72 /min ROHAN KAPPER CONSIGNEE-MORTGAGE PROCESSOR [facility] 07-04-2023 16:22-0400 Respiratory rate 20 /min ROHAN KAPPER CONSIGNEE-MORTGAGE PROCESSOR [facility] 07-04-2023 16:22-0400 Systolic Blood Pressure Non-Invasive 152 1 ROHAN KAPPER CONSIGNEE-MORTGAGE PROCESSOR [facility] 07-04-2023 12:17-0400 Body temperature 97.88 [degF] ROHAN KAPPER CONSIGNEE-MORTGAGE PROCESSOR [facility] 07-04-2023 12:17-0400 Heart rate 72 /min ROHAN KAPPER CONSIGNEE-MORTGAGE PROCESSOR [facility] 07-04-2023 12:17-0400 Respiratory rate 20 /min ROHAN KAPPER CONSIGNEE-MORTGAGE PROCESSOR [facility] 07-04-2023 11:20-0400 Heart rate 74 /min ROHAN KAPPER CONSIGNEE-MORTGAGE PROCESSOR [facility] 07-04-2023 07:54-0400 Heart rate 74 /min ROHAN KAPPER CONSIGNEE-MORTGAGE PROCESSOR [facility] 07-04-2023 04:11-0400 Heart rate 82 /min ROHAN KAPPER CONSIGNEE-MORTGAGE PROCESSOR [facility] 07-04-2023 04:11-0400 Reason For Taking VItal Signs ROHAN KAPPER CONSIGNEE-MORTGAGE PROCESSOR [facility] 07-03-2023 23:30-0400 Reason For Taking VItal Signs ROHAN KAPPER CONSIGNEE-MORTGAGE PROCESSOR [facility] 07-03-2023 03:07-0400 Heart rate 78 /min ROHAN KAPPER CONSIGNEE-MORTGAGE PROCESSOR [facility] 07-02-2023 22:59-0400 Heart rate 82 /min ROHAN KAPPER CONSIGNEE-MORTGAGE PROCESSOR [facility] 06-30-2023 18:36-0400 Body height 160 cm ROHAN KAPPER CONSIGNEE-MORTGAGE PROCESSOR [facility] 06-30-2023 18:36-0400 Body weight 128 kg ROHAN KAPPER CONSIGNEE-MORTGAGE PROCESSOR [facility] 06-30-2023 18:36-0400 Body weight 50 kg/m2 ROHAN KAPPER CONSIGNEE-MORTGAGE PROCESSOR [facility] 06-30-2023 15:17-0400 Blood Pressure Location ROHAN KAPPER CONSIGNEE-MORTGAGE PROCESSOR [facility] 06-30-2023 15:17-0400 Blood Pressure Method ROHAN KAPPER CONSIGNEE-MORTGAGE PROCESSOR [facility] Encounters Encounter Date Encounter Type Care Provider Facility Start: 03-02-2025 ambulatory Balwinder MARSHALL Facil ity:[facility] Start: 03-02-2025 Registered Referred Balwinder Alves MD [facility] Start: 02-07-2025 End: 02-07-2025 ambulatory Balwinder Alves MD [facility] Work Phone: Start: 02-07-2025 End: 02-07-2025 Departed Referred Balwinder Alves MD [facility] Start: 02-07-2025 End: 02-07-2025 ambulatory Balwinder MARSHALL Facility:[facility] Start: 01-23-2025 End: 01-23-2025 ambulatory Balwinder Alves MD [facility] Work Phone: Start: 01-23-2025 End: 01-23-2025 [facility] Start: 01-23-2025 End: 01-23-2025 ambulatory Balwinder Alves OLS Facility:[facility] Start: 01-09-2025 End: 01-09-2025 ambulatory Balwinder Alves MD [facility] Work Phone: Start: 01-09-2025 End: 01-09-[address] Balwinder Alves MD [facility] Start: 01-09-2025 End: 01-09-2025 ambulatory Balwinder Alves Facility:[facility] Start: 01-02-2025 End: 01-02-2025 ambulatory Balwinder Alves MD [facility] Work Phone: Start: 01-02-2025 End: 01-02-2025 [facility] Start: 01-02-2025 Registered Referred Balwinder Fontanez [facility] Start: 01-02-2025 End: 01-02-2025 ambulatory Balwinder MARSHALL Facility:[facility] Start: 12-26-2024 End: 12-26-2024 ambulatory Balwinder Alves MD [facility] Work Phone: Start: 12-26-2024 End: 12-26-2024 [facility]ed [facility] Start: 12-26-2024 Registered Referred Balwinder Alves MD [facility] Start: 12-26-2024 End: 12-26-2024 ambulatory Balwinder MARSHALL Facility:[facility] Start: 12-16-2024 End: 12-16-2024 ambulatory Balwinder Alves MD [facility] Work Phone: Start: 12-16-2024 End: 12-16-2024 [facility]ed [facility] Start: 12-16-2024 Registered Referred Balwinder Fontanez [facility] Start: 12-16-2024 End: 12-16-2024 ambulatory Balwinder MARSHALL Facility:[facility] Start: 12-14-2024 End: 12-14-2024 ambulatory Balwinder Alves MD [facility] Work Phone: Start: 12-14-2024 End: 12-14-2024 [facility]ed [facility] Start: 12-14-2024 End: 12-14-2024 ambulatory Balwinder MARSHALL Facility:[facility] Start: 10-10-2024 ambulatory Balwinder MARSHALL Facil ity:[facility] Start: 10-10-2024 Registered Referred Balwinder Alves MD [facility] Start: 09-14-2024 End: 09-14-2024 Departed [facility] Start: 09-14-2024 End: 09-14-2024 ambulatory [...] Phone: Start: 12-14-2023 End: 12-14-2023 Departed Referred [facility] Start: 12-09-2023 End: 12-09-2023 ambulatory TETE TREVINO [facility] Start: 12-09-2023 End: 12-09-2023 Office outpatient visit 15 minutes Tete FITZGERALD Work Phone: [facility] Comment on above: Closed fracture of d istal end of left fibula, unspecified fracture morphology, initial encounter (Primary Dx) Start: 11-16-2023 Orders Only Tete FITZGERALD Work Phone: [facility] Comment on above: Closed fracture of d istal end of left fibula, unspecified fracture morphology, initial encounter (Primary Dx) Start: 10-14-2023 End: 10-14-2023 [facility] Start: 10-14-2023 End: 10-14-2023 Office outpatient visit 15 minutes Tete FITZGERALD Work Phone: [facility] Comment on above: Closed fracture of d istal end of left fibula, unspecified fracture morphology, initial encounter; Acute left ankle pain Start: 10-09-2023 Orders Only Tete FITZGERALD Work Phone: [facility] Comment on above: Closed fracture of l eft ankle, initial encounter (Primary Dx) Start: 09-23-2023 End: 09-23-2023 ambulatory HEALTH SERVICES ADMINISTRATOR-C Laci Brewer HEALTH SERVICES ADMINISTRATOR Work Phone: [facility] Work Phone: Start: 09-23-2023 End: 09-23-2023 Departed Referred HEALTH SERVICES ADMINISTRATOR-C Laci Brewer HEALTH SERVICES ADMINISTRATOR Work Phone: [facility] Start: 09-14-2023 End: 09-14-2023 ambulatory HEALTH SERVICES ADMINISTRATOR-C Laci Baltes HEALTH SERVICES ADMINISTRATOR Work Phone: [facility] Work Phone: Start: 09-14-2023 End: 09-14-2023 Departed Referred HEALTH SERVICES ADMINISTRATOR-C Laci Beltrantes HEALTH SERVICES ADMINISTRATOR Work Phone: [facility] Start: 07-17-2023 Telephone encounter Zander Ureña MD Work Phone: [facility] Comment on above: Other (Appt ) Start: 07-16-2023 End: 07-16-2023 Patient encounter procedure HEALTH SERVICES ADMINISTRATOR-C Laci Beltranwinnie HEALTH SERVICES ADMINISTRATOR Work Phone: [facility] Work Phone: Start: 06-30-2023 End: 07-05-2023 ambulatory LACI OSMAN CONSIGNEE-MORTGAGE PROCESSOR Facility:B Start: 06-30-2023 End: 07-04-2023 ambulatory ROHAN Romero JULY CONSIGNEE-MORTGAGE PROCESSOR Facility:B Start: 06-30-2023 End: 07-04-2023 Observation ROHAN M JULY CONSIGNEE-MORTGAGE PROCESSOR [facility] Start: 02-05-2023 End: 02-06-2023 ambulatory LACI OSMAN CONSIGNEE-MORTGAGE PROCESSOR Facility:B Start: 02-05-2023 End: 02-05-2023 Patient encounter procedure LACI OSMAN CONSIGNEE-MORTGAGE PROCESSOR [facility] Start: 01-29-2022 End: 01-29-2022 Patient encounter procedure LACI BREWER CONSIGNEE-MORTGAGE PROCESSOR [facility] Start: 07-17-2021 End: 07-17-2021 Patient encounter procedure LACI BREWER CONSIGNEE-MORTGAGE PROCESSOR [facility] Procedures Date Procedure Procedure Detail [...] 12-16-2024 Vitamin D, 25-hydrox y measurement Balwinder Avles MD Comment on above: Vitamin D StatusDefi [...] [place] Start: 09-23-2023 Clostridium difficil e detection HEALTH SERVICES ADMINISTRATOR-C Laci Beltarnwinnie HEALTH SERVICES ADMINISTRATOR Work Phone: Start: 07-16-2023 Radiography of ankle HEALTH SERVICES ADMINISTRATOR -C Laci Brewer HEALTH SERVICES ADMINISTRATOR Work Phone: Start: 04-04-2023 Extraction of cataract ROHAN MCDOWELL CONSIGNEE-MORTGAGE PROCESSOR Comment on above: Left side Start: 02-09-2020 Ophthalmic examinati on and evaluation LACI BREWER CONSIGNEE-MORTGAGE PROCESSOR Comment on above: No retinopathy; WE Start: 03-22-2007 Arthroplasty of knee RY AN BALTES CONSIGNEE-MORTGAGE PROCESSOR Comment on above: BILATERAL Start: 03-05-2007 Arthroplasty of knee RY AN BALTES CONSIGNEE-MORTGAGE PROCESSOR Start: 10-05-1968 section LACI GUERRA CONSIGNEE-MORTGAGE PROCESSOR Cataract (disorder) LACI ROWAN CONSIGNEE-MORTGAGE PROCESSOR Comment on above: Right eye Cholecystectomy LACI BREWER CONSIGNEE-MORTGAGE PROCESSOR Hysterectomy LACI BREWER APR N-MORTGAGE PROCESSOR Miscellaneous (quali fier value) ROHAN JULY CONSIGNEE-MORTGAGE PROCESSOR Comment on above: brain drains from br ain bleed 2013 Renal lithotripsy LACI Ramesh CONSIGNEE-MORTGAGE PROCESSOR Sling, device (physi shauna object) LACI BREWER CONSIGNEE-MORTGAGE PROCESSOR Comment on above: Bladder H/o cystocele Tonsillectomy LACI BREWER AP RN-MORTGAGE PROCESSOR Comment on above: as a teenager Plan of Treatment Date Care Activity Detail Author Start: 06-24-2026 DTaP/Tdap/Td Vaccine s (2 - Td or Tdap) DTaP/Tdap/Td Vaccines (2 - Td or Tdap) [facility] Start: 01-23-2025 [facility] Start: 01-23-2025 Bacteria identified in Urine by Culture Urine Culture [facility] Start: 01-09-2025 Urine culture Urine Culture [facility] Start: 01-09-2025 [facility] Start: 01-02-2025 [facility] Start: 01-02-2025 Bacteria identified in Urine by Culture Urine Culture [facility] Start: 01-02-2025 Urine culture [facility] Start: 02-06-2024 [facility] Start: 11-25-2023 End: 11-16-2024 XR Ankle - left 3 Views XR ankle 3+ views left Imaging Routine Closed fracture of distal end of left fibula, unspecified fracture morphology, initial encounter Expected: 11/25/2023, Expires: 11/16/2024 [facility] Work Phone: Comment on above: Expected: 11/25/2023 , Expires: 11/16/2024 Start: 11-25-2023 End: 11-25-2023 Patient encounter procedure 11/25/2023 10:30 AM EST Office Visit [facility] [address] [place] [address] [place] [id number] Tete Trevino PA [address] [facility] [address] [place] [address] [facility] Start: 10-14-2023 End: 10-09-2024 XR Ankle - left 3 Views XR ankle 3+ views left Imaging Routine Closed fracture of left ankle, initial encounter Expected: 10/14/2023, Expires: 10/09/2024 [facility] Work Phone: Comment on above: Expected: 10/14/2023 , Expires: 10/09/2024 Start: 10-14-2023 End: 10-14-2023 Patient encounter procedure 10/14/2023 10:00 AM EST Office Visit [facility] [address] [facility] [address] [place] [address] Tete Trevino PA 1 [facility] [address] [place] [address] [facility] Start: 10-05-2023 Medicare Advantage Annual Wellness Visit Medicare Advantage Annual Wellness Visit [facility] Start: 06-05-2023 COVID-19 Vaccine ( season) COVID-19 Vaccine ( season) [facility] Start: 06-05-2023 COVID-19 Vaccine ( season) COVID-19 Vaccine ( season) [facility] Start: 06-05-2023 Influenza vaccination Influenza Vacc ine (#1) [facility] Start: 06-03-2021 Zoster Vaccines (3 o f 3) Zoster Vaccines (3 of 3) [facility] Start: 2008 Pneumococcal Vaccine : 65+ Years (1 - PCV) Pneumococcal Vaccine: 65+ Years (1 - PCV) [facility] Start: 2003 RSV Immunization age d 60 or older (1 - 1-dose 60+ series) RSV Immunization aged 60 or older (1 - 1-dose 60+ series) [facility] Start: 1993 Zoster Vaccines (1 o f 2) Zoster Vaccines (1 of 2) [facility] Start: 1962 DTaP/Tdap/Td Vaccine s (1 - Tdap) DTaP/Tdap/Td Vaccines (1 - Tdap) [facility] Start: 1955 Depression Screening Depression Scre ening [facility] Start: 1943 COVID-19 Vaccine (#1) COVID-19 Vacci ne (#1) [facility] Start: 1943 Medicare Advantage Annual Wellness Visit (AWV) Medicare Advantage Annual Wellness Visit (AWV) [facility] Start: 1943 Screening for osteoporosis Bone Density Scan [facility] Patient Education ED Abscess Inc ision And Drainage ED Wound Care After Packing ... [facility] Work Phone: Patient referral [facility] Work Phone: Urine culture [facility] Immunizations Immunization Date Immunization Notes Care Provider Fa keya 07-03-2022 influenza virus vacc ine, unspecified formulation LACI BREWER CONSIGNEE-MORTGAGE PROCESSOR [facility] 01-14-2022 SARS-CoV-2 mRNA (juiqglbsmir-layb-ayfime e) vaccine LACI BREWER CONSIGNEE-MORTGAGE PROCESSOR [facility] 06-14-2021 influenza virus vacc ine, unspecified formulation LACI BREWER CONSIGNEE-MORTGAGE PROCESSOR [facility] 04-08-2021 zoster vaccine recombinant LACI BREWER CONSIGNEE-MORTGAGE PROCESSOR [facility] 01-01-2021 SARS-CoV-2 (COVID-19 ) mRNA BNT-162b2 vax LACI BREWER CONSIGNEE-MORTGAGE PROCESSOR [facility] 12-10-2020 SARS-CoV-2 (COVID-19 ) mRNA BNT-162b2 vax LACI BREWER CONSIGNEE-MORTGAGE PROCESSOR [facility] Comment on above: Result Comment: 2020: [id number] 05-06-2020 influenza virus vacc ine, unspecified formulation LACI BREWER CONSIGNEE-MORTGAGE PROCESSOR [facility] 05-06-2020 pneumococcal conjuga te vaccine, 13 valent LACI BREWER CONSIGNEE-MORTGAGE PROCESSOR [facility] 07-06-2019 influenza virus vacc ine, unspecified formulation LACI BREWER CONSIGNEE-MORTGAGE PROCESSOR [facility] 09-03-2018 influenza virus vacc ine, unspecified formulation LACI BREWER CONSIGNEE-MORTGAGE PROCESSOR [facility] [facility] 08-[facility]-2018 influenza virus vacc ine, unspecified formulation LACI BREWER CONSIGNEE-MORTGAGE PROCESSOR [facility] 07-04-2018 influenza virus vacc ine, unspecified formulation LACI BREWER CONSIGNEE-MORTGAGE PROCESSOR [facility] 06-04-2018 influenza virus vacc ine, unspecified formulation LACI BREWER CONSIGNEE-MORTGAGE PROCESSOR [facility] 06-23-2017 influenza virus vacc ine, unspecified formulation LACI BREWER CONSIGNEE-MORTGAGE PROCESSOR [facility] 06-10-2017 influenza virus vacc ine, unspecified formulation LACI BREWER CONSIGNEE-MORTGAGE PROCESSOR [facility] 06-24-2016 influenza virus vacc ine, unspecified formulation LACI BREWER CONSIGNEE-MORTGAGE PROCESSOR [facility] 06-24-2016 tetanus toxoid, redu chivo diphtheria toxoid, and acellular pertussis vaccine, adsorbed LACI BREWER CONSIGNEE-MORTGAGE PROCESSOR [facility] 07-17-2015 pneumococcal conjuga te vaccine, 13 valent LACI BREWER CONSIGNEE-MORTGAGE PROCESSOR [facility] 06-19-2015 influenza virus vacc ine, unspecified formulation LACI BREWER CONSIGNEE-MORTGAGE PROCESSOR [facility] 09-06-2014 influenza virus vacc ine, unspecified formulation LACI BREWER CONSIGNEE-MORTGAGE PROCESSOR [facility] 06-08-2013 pneumococcal polysaccharide vaccine, 23 valent LACI BREWER CONSIGNEE-MORTGAGE PROCESSOR [facility] 09-01-2012 influenza virus vacc ine, unspecified formulation LACI BREWER CONSIGNEE-MORTGAGE PROCESSOR [facility] 05-28-2012 zoster vaccine, live LACI KOREY KUNAL CONSIGNEE-MORTGAGE PROCESSOR [facility] Payers Date Payer Category Payer Medicaid [id number] 2024 Self-pay [id number] 2023 Medicare [employer] [id number] 2023-Present [phone] [address] [place] [address] Medicare HMO [id number] 2023 Medicare [id number] 2023 Unknown [id number] 1945 Unknown [id number] [id number]7 1945 Unknown [id number] 2..840.1.628523.3.579.2.627 1945 Unknown [id number] 2.16.840.1.572668.3.579.2.627 Medicare MEDICARE PART A B [id number] Unknown [id number] 2.16.840.1.166224.3.579.2.462 Unknown [id number] 2.16.840.1.777296.3.579.2.462 Unknown [id number] 2.16.840.1.895089.3.579.2.462 Unknown [id number] 2.16.840.1.955030.3.579.2.462 Unknown [id number] 2.16.840.1.276391.3.579.2.462 Unknown [id number] 2.16.840.1.923065.3.579.2.462 Unknown [id number] 2.16.840.1.470423.3.579.2.462 Unknown [id number] 2.16.840.1.994238.3.579.2.462 Unknown [id number] 2.16.840.1.251487.3.579.2.462 Unknown [id number] 2.16.840.1.518255.3.579.2.462 Unknown [id number] 2.16.840.1.810176.3.579.2.462 Unknown [id number] 2.16.840.1.239367.3.579.2.462 Unknown [id number] 2.16.840.1.730745.3.579.2.462 Unknown [id number] 2.16840.1.536838.3.579.2.462 Unknown [id number] 2.16.840.1.605633.3.579.2.462 Social History Date Type Detail Facility Start: 04-06-2019 End: 02-06-2024 Ex-smoker (finding) [facility] Comment on above: Quit in 2014, not ar ound cigarette smoke Start: 1945 Sex Assigned At Female A [facility] Start: 07-16-2023 End: 02-06-2024 Tobacco smoking status KSIS Tobacco smoking consumption unknown [facility] Start: 1945 Sex Assigned At Not on file [facility] Start: 10-14-2023 End: 12-09-2023 Gender identity Not on file [facility] Start: 10-14-2023 Tobacco smoking stat us RUST Never smoked tobacco [facility] Start: 10-14-2023 Tobacco use and exposure Smokeless tobacco non-user [facility] Start: 10-14-2023 End: 12-09-2023 History of Social function [facility] Start: 01-04-2025 End: 01-24-2025 Sex Female (finding) [facility] Medical Equipment Procedure Code Equipment Code Equipment Origin al Text Equipment Identifier Dates BD UF SHORT PEN NEEDLE [id number] Start: 08-29-[address] Strips Start: 10-16-2020 Lancets Start: 04-23-2021 BD UF SHORT PEN NEEDLE [id number], 0 Refill(s), 141.8 Start: 08-29-2020 See Instructions , EA=BOX of 100 2x daily testing once touch untra blue dx: diabetes, # 6 EA, 3 Refill(s), Pharmacy: [facility]/pharmacy #[id number], Diabetes, 166.37, cm, 07/24/21 11:31:00 EDT, Height, 134.5, kg, 07/24/21 11:31:00 EDT, Dosing Weight Start: 07-24-2021 See Instructions , EA=BOX OF 100 ONETOUCH DELICA LANCETS FINE, 33 GA TO TEST BID Diabetes R11.9, # 6 EA, 3 Refill(s), [id number], Diabetes, 166.37, cm, 07/24/21 11:31:00 EDT, Height, 134.5, kg, 07/24/21 11:31:00 EDT, Dosing Weight Start: 07-24-2021 See Instructions , Using Twice Daily. ONE BOX OF 100. BD UF 8mm 31 G (short) qs 3 month supply Diabetes Mellitus E11.9, # 2 EA, 0 Refill(s), Pharmacy: [facility]/pharmacy #[id number], 167.6, cm, 11/05/21 9:58:00 EST, Height, 135.4, kg, 11/05/21 9:58:00 EST, Dosing... Start: 12-20-2021 See Instructions , EA=BOX of 100 2x daily testing once touch untra blue dx: diabetes, # 6 EA, 3 Refill(s), Pharmacy: [facility]/pharmacy #[id number], Diabetes, 167.6, cm, 05/20/22 12:08:00 EDT, Height, 134.9, kg, 05/20/22 11:59:00 EDT, Dosing Weight Start: 08-05-2022 See Instructions , EA=BOX OF 100 ONETOUCH DELICA LANCETS FINE, 33 GA TO TEST BID Diabetes R11.9, # 6 EA, 3 Refill(s), Pharmacy: [facility]/pharmacy #[id number], Diabetes, 167.6, cm, 08/19/22 12:13:00 EST, [...] diabetes, # 6 EA, 3 Refill(s), Pharmacy: [facility]/pharmacy #[id number], Diabetes, 167.6, cm, 05/20/22 12:08:00 EDT, Height, 134.9, kg, 05/20/22 11:59:00 EDT, Dosing Weight Start: 08-05-2022 See Instructions , EA=BOX OF 100 ONETOUCH DELLEIF LANCETS FINE, 33 GA TO TEST BID Diabetes R11.9, # 6 EA, 3 Refill(s), Pharmacy: [facility]/pharmacy #[id number], Diabetes, 167.6, cm, 08/19/22 12:13:00 EST, Height, 135.4, kg, 08/19/22 12:13:00 EST, Dosing Weight Start: 09-10-2022 See Instructions , EA=ONE BOX OF 100, BID BD UF 8mm 31 G (short) qs 3 month supply Diabetes Mellitus E11.9, # 2 EA, 3 Refill(s), [id number], 167.6, cm, 11/20/22 11:29:00 EST, Height, 134, kg, 11/20/22 11:29:00 EST, Dosing Weight Start: 11-20-2022 Functional Status Date Assessment Result Facility 07-04-2023 Functional Status Room check performed [facility] 07-04-2023 Functional Status right knee high applied /on [facility] 07-04-2023 Functional Status [facility] 07-04-2023 Functional Status [facility] 07-04-2023 Functional Status Demonstrates C orrect Call Light Use Yes [facility] 07-04-2023 Functional Status Done [facility] 07-04-2023 Functional Status [facility] 07-03-2023 Functional Status Positioning Repositions self [facility] 07-03-2023 Functional Status [facility] 07-03-2023 Functional Status [facility] 07-03-2023 Functional Status [facility] 07-03-2023 Functional Status [facility] 07-03-2023 Functional Status [facility] 07-02-2023 Functional Status [facility] 07-02-2023 Functional [facility] Status [facility] 07-01-2023 Functional Status Single level home [facility] 07-01-2023 Functional Status [facility] 06-30-2023 Functional Status Sensory Deficits None [facility] 06-30-2023 Functional Status Activity Rosa tance Independent [facility] Mental Status Date Assessment Result Facility 07-04-2023 Mental Status Orientation Orie nted x 4, Follows simple commands [facility] 07-03-2023 Mental Status [facility] 07-03-2023 Mental Status [facility] 07-03-2023 Mental Status Orientation Asse ssment Oriented x 4 [facility] 07-02-2023 Mental Status [facility] 07-01-2023 Mental Status [facility] Clinical Notes 06-30-2023 to 02-06-2024 Note Date & Type Note Facility 02-06-2024 Discharge summary Note Date/Time February 06, 2024 4:09pm [facility] Medical Records Department [address] [place] [address] Emergency Department Summary 02/06/24 MR#: [id number] Acct: [id number] Name: GUMARO BUSTAMANTE Rep #:[id number] : 1945 78 From: Omid Montiel MD PCP: Dr. Balwinder Alves MD Status:REG ER Location: ED HPI History of Present Illness Chief Complaint: Wound Check Narrative Narrative: 78-year-old female past medical history of diabetes presents from longterm facility for right labia majora abscess. She [...] line because they want to start vancomycin. [facility] Medical History Brain bleed Cataract Closed [...] on antibiotics orally. Disposition is discharged to [facility] in stable condition. History & [...] Provider] - 2 Days Laci Brewer NP, HEALTH SERVICES ADMINISTRATOR-C [Non-Staff] - Activity Restrictions/Additional Instructions: Remove packing/have packing removed in 48 hours. Do not leave in longer. Continue vancomycin through your peripheral IV. Disposition Disposition: Shelter Facility Discharge Location: [facility] What to do if you have Problems For any increased pain, shortness of breath, bleeding, nausea or vomiting, chestpain, or any unexpected problems, contact your Primary Care Provider. Call [facility] ([phone]) or report to the closest Emergency Room. Call 911 if necessary. 02/06/241801 <Electronically signed by Omid Montiel MD> Cosigner Signature (if applicable): CC: Dr. Balwinder Alves MD ~ Signed [facility] Work Phone: 1(117) 651-872603-06-2024 History of Present illness Narrative* LIA Champagne - 12/09/2023 10:30 AM EST Images from the original note were not included. [facility] [address] [place] [address] [address] [facility] [address] Dept: [phone] Dept Gumaro Bustamante 1945 [id number] 12/09/2023 HISTORY OF PRESENT ILLNESS: Gumaro returns [...] to improve. Electronically signed by LIA Champagne [facility] Department of Orthopedic surgery 12/09/2023 3:43 PM Voice recognition was used for portions of this note and although it was reviewed prior to signing some incorrect words or phrases could be present. documented in this [facility]01-10-2024 History of Present illness Narrative* LIA Champagne - 10/14/2023 10:00 AM EST Images from the original note were not included. [facility] [address] [place] [address] [place] [address] Dept: [phone] Dept Gumaro Bustamante 1945 [id number] 10/14/2023 HISTORY OF PRESENT ILLNESS: Gumaro returns [...] with Imaging. Electronically signed by LIA Champagne [facility] Department of Orthopedic surgery 10/14/2023 3:50 PM Voice recognition was used for portions of this note and although it was reviewed prior to signing some incorrect words or phrases could be present. documented in this [facility]11-30-2023 Telephone encounter Note* Telephone Encounter - Kimberly Capellan MA - 09/03/2023 8:53 AM EST Left distal fibula fx doi 07/02/23 she is in a boot. Can only be seen in [place] or [place]. [facility] wads [id number] Miscellaneous Notes* Telephone Encounter - Kimberly Capellan MA - 09/03/2023 8:53 AM EST Left distal fibula fx doi 07/02/23 she is in a boot. Can only be seen in [place] or [place]. No wads * Telephone Encounter - Sammie Lantigua - 09/02/2023 12:08 PM EST Gareth an RN at [facility] called [phone] ext 2008, he states that they just got Gumaro from [place] and they are looking for her to [...] Dr. Ureña on Thursday at 1pm in [facility] or 9am in [place] if not already double booked. documented in this [facility]11-29-2023 Telephone encounter Note* Telephone Encounter - Sammie Lantigua - 09/02/2023 12:08 PM EST Gareth an RN at [facility] called [phone] ext 2008, he states that they just got Gumaro from [place] and they are looking for her to [...] 2:30 today and then works again tomorrow. [id number] Miscellaneous Notes* Telephone Encounter - Sammie Lantigua - 09/02/2023 12:08 PM EST Gareth an RN at [facility] called [phone] ext 2008, he states that they just got Gumaro from [place] and they are looking for her to [...] Dr. Ureña on Thursday at 1pm in [facility] or 9am in [place] if not already double booked. documented in this [facility]10-13-2023 Telephone encounter Note* Telephone Encounter - Billy Araya MA - 07/17/2023 9:27 AM EDT LVM to schedule with Dr. Ureña on Thursday at 1pm in [facility] or 9am in [place] if not already double booked. [id number] Discharge instructions Patient Education 07/03/2023 14:56:59 Urinary Tract Infection, Adult, Ozdp-zx-Lsbc Urinary Tract Infection, Adult A urinary tract [...] Follow these instructions at home: Medicines Take ekyk-hwm-yhjwety and prescription medicines only as told by [...] 03/09/2009 Document Revised: 09/08/2019 Document Reviewed: 03/31/2019 [employer] Patient Education [employer]. Follow Up Care 06/30/2023 15:11:52 With:LACI BREWER Address: [address] [place] [phone] When:3-5 days Comments:Please schedule a Follow up appt with your PCP after d/c. [facility] 09-29-2023 Note Discharge Instructions Thank you for allowing [facility] to assist you with your healthcare needs. The following is importantdischarge information regarding your hospital visit. Your Care Team Heather Hunt APRN Your Diagnosis Ankle pain-swelling Depression Fall Fibula fracture Hypertension Type 2 diabetes mellitus Urinary tract infection What to do next Scheduled Follow-Up Appointments [facility]ointment Type [facility] 11[facility]30 AM EST LACI BREWER [address] [address] Follow Up Appointments Follow Up with LACI BREWER When Within 3-5 days Why: Please schedule a Follow up appt with your PCP after d/c. Where: [address] [place] [address] [phone] The Following Activity and Diet Have Been [...] When Why Instructions Last Dose New acetaminophen-hydrocodone (Clayhole 325- 5 mg oral tablet) 1 tab(s) [...] Follow these instructions at home: Medicines Take rqms-emh-zxiacma and prescription medicines only as told by [...] 03/09/2009 Document Revised: 09/08/2019 Document Reviewed: 03/31/2019 [employer] Patient Education 2020 [employer] Additional Information VACCINATE! IT SAVES LIVES! Members of the community who have not yet received the COVID-19 vaccine and would like to receive it can visit one of [facility] vaccine clinics. There are many vaccine clinic locations within the State. For locations and available times, please visit https://gettheshot.coronavirus.[place].gov/. It is important to note that some COVID mobile vaccine clinics are held outdoors and may be canceled in rainy or stormy conditions. To learn more about pediatric vaccinations (ages 5-11), we invite you to visit the [facility] webpage. https://www.Raise[employer].org/pages/9876-Pakkz-Usjksfevnxr-Wwarmbjzfg-Yokiz-Xtc stions.htmlTo learn more about the COVID-19 vaccine, we invite you to visit the CDC website for a list of frequently asked questions.https://www.cdc.gov/coronavirus/2019-ncov/vaccines/faq.html [facility] Patient Portal Access Instructions: Stay connected with your healthcare team and access your personal medical information anytime with the [facility] Patient Portal. Please follow the directions below to create your [facility] account: 1.Access the email account you provided upon registration to the hospital/physician office.2.Look for an invitation email from [facility].3.Open the email and access the invitation link: AcceptInvitation to [facility].4.Fill in the required correa to create your account. To access your account, visit [employer]. Click the blue button labeled Access Patient [...] who you will allowto register on the [facility] Patient Portal for access to your information. You can also access the [facility] Patient Portal on the [employer] Anywhere calos. Simply click on Patient Portal and then log into your account. If you would like to receive a full copy of your medical records, please contact the [facility] Medical Records Department by calling [phone], Thursday through Thursday between 8 a.m. and [...] Call your local pharmacy or go to http://[employer].AdYouNet/2C5Nv2w to find one close to you.3.Make use of household items: Use cat litter or old coffee grounds to dispose medications if other options arenot available. Mix your drugs with these household products, seal them in an airtight container andthrow it into the garbage. Call [facility]: [phone] to be sure your drugs can be [...] Patient Education Materials Urinary Tract Infection, Adult, Snyv-cw-Nhuc Medication Leaflets My discharge plan and instructions have been reviewed and explained to me and I,GUMARO BUSTAMANTE understand my current condition and have read and understand these discharge instructions. I have received a written copy of the plan/instructions. If I have questions, I am aware that I should contact my doctor. Patient/Business Operations Director Signature: Date/Time: Relationship to Patient: Witness Name/Signature: Date/Time: [facility]09-29-2023 Note Date of Service 07/03/2023 Chief Complaint Fibula fracture Subjective 78-year-old female with past medical history significant for HTN, HLD, type 2 diabetes mellitus, morbid obesity. Next Patient presented to [facility] emergency department on 06/30/2023 with left ankle [...] currently. Pain was not well controlled with Clayhole alone. Objective Vitals and Measurements T: 36.6 [...] Dr. Roberto, nonweightbearing status for 6 weeks. Clayhole for pain. Patient has a documented allergy [...] Time Spent 36 minutes was spent in rjbi-vg-xlsb time and coordination of care for this [...] mellitus, morbid obesity. Next Patient presented to [facility] emergency department on 06/30/2023 with left ankle [...] Dr. Roberto, nonweightbearing status for 6 weeks. Clayhole for pain. Patient has a documented allergy [...] Locations *1: This test was performed at: [facility], [address] [place] [address], [address]- , [facility] ([place]07-01-2023 Note Date of Service 07/01/2023 Chief Complaint [...] - holding off until seen by ortho. *emergency services professional consulted for discharge planning. *Continue PO pain [...] home medications, discussing plan of care with nursing,licensed clinical social worker, and therapy, examining patient, collaborating [...] 2 diabetes and morbid obesity, presented to [facility] emergency department with the chief complaint of [...] evaluate and treat. We will consult licensed clinical social worker for discharge planning. Check CBC [...] PT and OT to evaluate and treat. *emergency services professional consulted for discharge planning. 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 Appetite Good. Eating Difficulties None. Caffeine intake amount: Occ Coke. Two protein drink daily, it has caffeine of one cup of coffee., 08/19/2022 Substance Abuse Use: Never., 04/06/2019 Tobacco Tobacco Use: Former smoker, quit more than 30 days ago., 04/06/2019 Family History Arthritis: Sister. Asbestosis: Father. Cancer: Mother. Diabetes: Sister. Guillain [place] syndrome: Sister. Heart disease: Sister. Malignant neoplasm [...] Sign Date: 06/30/2023 4:00:26 PM Ordering Provider: [address]26-2023 Note ORIGINAL EXAMINATION: TWO XRAY VIEWS [...] Sign Date: 06/30/2023 4:01:46 PM Ordering Provider: [address]26-2023 Evaluation + Plan noteExtracted from: Title:History and Physical Author:ROHAN MCDOWELL APRN-MORTGAGE PROCESSOR Date:06/30/23 1. Ankle pain-swelling Acute, s/p mechanical fall at home *X-ray of left ankle reveals fracture of distal fibula. *Consult Dr. Jose Roberto, orthopedics, for recommendation. *Patient is non weightbearing to left ankle. *Consult placed to PT and OT to evaluate and treat. *emergency services professional consulted for discharge planning. *Continue PO pain [...] Appointment Date:09/22/2023 11:30:00 AM Scheduled Provider:LACI BREWER Location:[facility] Appointment Type:PC OV [facility] evaluation + Plan note Future Appointments Appointment Date:07/24/2021 11:30:00 AM Scheduled Provider:LACI BREWER Location:[facility] Appointment Type: OV Future Scheduled Tests Laboratory* Vitamin D Level 01/22/21 * Vitamin D Level 11/06/20 [facility] Evaluation + Plan note Future Appointments Appointment Date:02/04/2022 11:00:00 AM Scheduled Provider:LACI BREWER Location:[facility] Appointment Type:PC OV Follow Up [facility] Evaluation + Plan note Future Appointments Appointment Date:02/10/2023 11:30:00 AM Scheduled Provider:LACI BREWER Location:[facility] Appointment Type:PC OV [facility] Evaluation note* Diagnosis Onset Date Resolution Status Closed fracture of left distal fibula acute Left ankle pain acute [facility] Work Phone: Evaluation note* Diagnosis Closed fracture of left ankle, initial encounter- Primary [facility] [place]* Diagnosis Closed fracture of distal end of left fibula, unspecified fracture morphology, initial encounter Acute left ankle pain documented [facility] [place] [facility]* Diagnosis Closed fracture of distal end of left fibula, unspecified fracture morphology, initial encounter- Primary documented in this encounter [facility] note* Diagnosis Closed fracture of distal end of left fibula, unspecified fracture morphology, initial encounter- Primary documented in [facility] [place] noteNo assessment information availableWUK Healthcare Work Phone: Hospital course Narrative No data [...] for referral (narrative)No reason for referral information availableWUK Healthcare Work Phone: Summary Purpose Family History No Family History Records Found Advance Directives No Advanced Directives Records Found Advance Directive Response Recorded Date/ Time Name of Medical Power of Rn New Graduate casey laureano February 06, 2024 3:49pm Living Will Yes February 06, 2024 3: 49pm Power of Rn New Graduate Yes February 06, 2024 3:49pm Chief Complaint and Reason for Visit Chief Complaint LEFT FIBULA Room 1 LABWORK Reason for Visit Closed fracture of l eft distal fibula Left ankle pain Chief Complaint LEFT FIBULA Room 1 LABWORK [facility] WORK Reason for Visit Closed fracture of l eft distal fibula Left ankle pain Chief Complaint LABWORK [facility] WORK [facility] WORK Chief Complaint [facility] LAB WOR K wound Chief Complaint Admit Date [facility] LAB WORK September 14 5:00am [facility] WORK October 10, 2024 7:30pm [facility] WORK December 14, 2024 5 :00am LABWORK December 16, 2024 6:1 2am [facility] WORK January 02, 2025 7 :30pm Chief Complaint Admit Date [facility] LAB WORK September 14 5:00am [facility] WORK October 10, 2024 7:30pm [facility] December 14, 2024 5 :00am LABWORK December 16, 2024 6:1 2am [facility] January 02, 2025 7 :30pm LABWORK January 09, 2025 12:4 0pm Chief Complaint Admit Date [facility] September 14 5:00am [facility] October 10, 2024 7:30pm [facility] December 14, 2024 5 :00am LABWORK December 16, 2024 6:1 2am LABWORK December 26, 2024 7:0 8am [facility] January 02, 2025 7 :30pm LABWORK January 09, 2025 12:4 0pm Chief Complaint Admit Date [facility] October 10, 2024 7:30pm [facility] December 14, 2024 5 :00am LABWORK December 16, 2024 6:1 2am LABWORK December 26, 2024 7:0 8am [facility] January 02, 2025 7 :30pm LABWORK January 09, 2025 12:4 0pm [facility] January 23, 2025 1 1:30pm Chief Complaint Admit Date [facility] December 14, 2024 5 :00am LABWORK December 16, 2024 6:1 2am LABWORK December 26, 2024 7:0 8am [facility] January 02, 2025 7 :30pm LABWORK January 09, 2025 12:4 0pm [facility] January 23, 2025 1 1:30pm [facility] February 07, 2025 3:30 am Reason for Referral Specialty Diagnoses / Procedures Referred By Contannita t Referred To Contact Physical Therapy Diagnoses Closed fracture of distal end of left fibula, unspecified fracture morphology, initial encounter Procedures [place] OFFICE/OUTPATIENT NEW HIGH MDM 60 MINUTES eTte Trevino PA [facility] [address] [place] [address] Referral ID Status Reason Start Date Expiration Date Visits Requested Visits Authorized [id number] Pending Review Eval and Treat 10/14/2023 04/11/2024 99 99 Additional Source Comments Care Team (unrecognized sect ion and content) Team Status: Active Member Role Status Dates Dr. Joaquin Thomas MD Family Provider Active Laci Brewer HEALTH SERVICES ADMINISTRATOR, HEALTH SERVICES ADMINISTRATOR-C Primary Care Provider Active Team Status: Inactive Member Role Status Dates Laci Brewer HEALTH SERVICES ADMINISTRATOR, HEALTH SERVICES ADMINISTRATOR-C Primary Care Provider, Referring Provider Active Prieto Meade MD Attending Provider Active Team Status: Inactive Member Role Status Dates Laci Brewer HEALTH SERVICES ADMINISTRATOR, HEALTH SERVICES ADMINISTRATOR-C Primary Care Provider Active Dr. Shlomo Umana MD Attending Provider Active Team Status: Inactive Member Role Status Dates Laci Brewer HEALTH SERVICES ADMINISTRATOR, HEALTH SERVICES ADMINISTRATOR-C Primary Care Provider Active Balwinder MARSHALL MD Attending Provider Active Director Of Exhibits Relationship Specialty Start Date End Date Balwinder Alves MD [address] [facility] [address] [place] [id number] PCP - General Family Medicine 10/14/23 Director Of Exhibits Relationship Specialty Start Date End Date Balwinder Alves MD [address] [facility] [address] [place] [phone] PCP - General Family Medicine 10/14/23 Director Of Exhibits Relationship Specialty Start Date End Date Balwinder Alves MD [address] [facility] [address] [place] [phone] PCP - General Family Medicine 10/14/23 Team Status: Inactive Member Role Status Dates Laci Brewer HEALTH SERVICES ADMINISTRATOR, HEALTH SERVICES ADMINISTRATOR-C Primary Care Provider Active Balwinder MARSHALL MD [...] December 26, 2024 End: December 26, 2024 Balwinder MARSHALL MD Attending [...] section and content) DATE CREATED AUTHOR 07/23/2023 [facility] ([place]) DATE CREATED AUTHOR AUTHOR'S ORGANIZ ATION 12/10/2023 [facility] DATE CREATED AUTHOR AUTHOR'S ORGANIZ ATION 03/11/2025 [facility] Reason for Visit (unrecogniz ed section [...] BE BASED ON THE PRIMARY CLINICAL RECORDS. [facility] provides no warranty or guarantee of the accuracy or completeness of information in this document.
[2025-03-15 07:40] LABS: Hematocrit 36.2 % (37-47); Hemoglobin 11.1 g/dL (12.0-15.0); Mean Corp Hgb Conc 30.7 g/dL (32-36); Mean Corpuscular Hgb 28.9 pg (27.0-32.0); Mean Corpuscular Volume 94.3 fL (81-99); Mean Platelet Vol. 8.4 fl (6.2-12.0); Platelet Count 177 K/mm3 (150-450); RBC Distribution Width CV 15.2 % (11.6-14.6); RBC Distribution Width SD 52.1 fl (35.1-43.9); Red Blood Count 3.84 M/mm3 (4.2-5.4); White Blood Count 7.1 K/mm3 (4.4-11.0)
[2025-03-15 07:59] LABS: Anion Gap 9 (5-15); BUN 11 mg/dL (4-19); BUN/Creat Ratio 13.6 RATIO (10-20); Calcium,Total 9.6 mg/dL (7.6-11.0); Carbon Dioxide 30.1 mmol/L (21.0-32.0); Chloride 98 mmol/L (98-108); Creatinine, Serum 0.79 mg/dL (0.70-1.20); EST Glomerular Filtration Rate 75 (>60); Glucose 188 mg/dL (70-99); Potassium 4.7 mmol/L (3.3-5.1); Sodium Level 137 mmol/L (133-145)
== END ==
LOC: OLS.WCC 04:00
PROVIDERS: PCP Family Medicine; Referring Provider Family Medicine; Visit Provider Family Medicine
DX: N39.0 Urinary tract infection, site not specified (principal); E11.40 Type 2 diabetes mellitus with diabetic neuropathy, unspecified; I10 Essential (primary) hypertension
CPT/HCPCS: 36415; 80048; 85027

== ENCOUNTER → 2025-03-16 | Outpatient (REF) | payer MEDICARE, MEDICAID, SELFPAY ==
--- OUTSIDE RECORDS SUMMARY | 2025-03-16 03:50 | XMS RPT_ITS | CCD ---
Author Organization [facility] Inform ion [facility] Care Team Providers Care Site Safety Manager Name Role Phone OSMAN PERDUE, LACI Primary Care Physician [phone] OSMAN PERDUE, LACI Primary Care Unavailabl e OSMAN PERDUE, LACI Attending Unavailabl e OSMAN COMPUTER SUPPORT ANALYST-HEAVY MOBILE EQUIPMENT OPERATOR, LCAI Primary Care Unavailabl e OSMAN COMPUTER SUPPORT ANALYST-HEAVY MOBILE EQUIPMENT OPERATOR, LACI Attending Unavailabl e JULY PERDUE, ROHAN Romero Attending Unavaila ble OSMAN PERDUE, LACI Primary Care UnavailJOSE FRANCISCO Matos DO Referring Unavailable JOSE ROBERTO DO Consulting Unavailable JULY BENTON-RODRIGO, ROHAN Romero Admitting Unavaila ble Unavailable Primary Care Provider Unavailluisa Brewer LICENSED MASS REAL ESTATE APPRAISER, LICENSED MASS REAL ESTATE APPRAISER-C Laci Primary Care Provider [phone] Osman LICENSED MASS REAL ESTATE APPRAISER, LICENSED MASS REAL ESTATE APPRAISER-C Laci Referring Provider [phone] MD Prieto Meade Attending Provider Dr. Shlomo Umana Attending Provider Balwinder Alves MD Primary Care Provider [phone] ZANDER UREÑA Referring Unavailable TETE TREVINO Attending [...] / oxyCODONE; Translations: [acetaminophen-oxyco done] Drug Allergy [facility] (7 sources) Adhesive Tape Allergy to substance 07-05-20 REDNESS & BLISTERS [facility] (4 sources) Amoxicillin / Clavulanate; Translations: [amoxicillin-clavula kellie] Drug Allergy Rash [facility] (4 sources) Aspirin; Translations: [aspirin] Drug Allergy Unknown [facility] (19 sources) Ciprofloxacin; Translations: [ciprofloxacin] Drug Allergy 07-05-20 Rash [facility] (4 sources) dapagliflozin; Translations: [dapagliflozin] Drug Allergy Rash [facility] (7 sources) Ibuprofen; Translations: [ibuprofen] Drug Allergy 07-05-20 23 [facility] (20 sources) Latex; Translations: [latex] Drug allergy 07-05-20 BLISTERS & REDNESS, blisters, Other [facility] Comment on above: BLISTERS (15 sources) Sulfamethoxazole; Translations: [sulfamethoxazole] Drug Allergy 11-01-19 21 Hives, Shortness of breath [facility] (6 sources) Cephalexin; Translations: [cephalexin] Drug Allergy 07-05-20 23 Hives [facility] Comment on above: Immediate rash / hiv es; patient seen in ER after last administration of Keflex (12 sources) Adhesive Tape; Translations: [adhesive tape] Allergy to substance 07-16-20 blister [facility] (14 sources) Trimethoprim Drug Allergy 11-01-19 21 Shortness of breath [facility] (3 sources) augmenten Allergy to substance 07-16-20 [facility] (4 sources) Aluminum aspirin Drug Allergy 07-05-20 23 Unknown [facility] (4 sources) dapagliflozin Drug Allergy 07-05-[address] [facility] (4 sources) Amoxicillin-Pot Clavulanate Drug Allergy 07-05-20 23 Rash [facility] (4 sources) Diphenhydramine-Acet aminophen Drug Allergy 07-05-20 23 [facility] (3 sources) Acetaminophen / oxyCODONE Drug Allergy 10-14-19 24 [facility] (3 sources) Sulfamethoxazole Allergy to substance 11-01-19 21 [facility] (3 sources) Wound Dressing Adhesive Drug Allergy 07-16-20 23 [facility] (8 sources) Amoxicillin Drug Allergy 02-06-20 24 [facility] (8 sources) Clavulanate Drug Allergy 02-06-20 24 [facility] (8 sources) Vancomycin Drug Allergy 02-06-20 24 red man syndrome [facility] (1 source) Amoxicillin Drug Allergy 08-03-20 [facility] (1 source) Ciprofloxacin Drug Allergy 08-03-20 [facility] (1 source) Clavulanate Drug Allergy 08-03-20 [facility] (1 source) Sulfamethoxazole Drug Allergy 08-03-20 [facility] (1 source) Trimethoprim Drug Allergy 08-03-20 [facility] (1 source) Vancomycin Drug Allergy 08-03-20 [facility] Medications Current Medications Medication Drug Class(es) Dates Sig (Normalized) Sig (Original) 3 ML semaglutide 2.68 MG/ML Pen Injector [Ozempic] (1 source) Start: 05-19-2023 End: 08-17-2023 inject 1 dose by subcutaneous injection every week Ozempic 8 mg/3 mL (2 mg dose) subcutaneous solution Dose : 2 mg =, Subcutaneous, qWeek, in the abdomen, thigh, or upper arm, # 9 mL, 0 Refill(s), Pharmacy: [facility]/pharmacy #[id number], Type 2 diabetes mellitus, 168.91, cm, 02/18/23 11:25:00 EDT, Height, kg, 02/18/23 11:25:00 EDT, Dosing Weight Start Date: 05/19/23 Stop Date: 08/17/23 Status: Ordered acetaminophen 500 mg oral tablet (11 sources) Start: 07-22-[address] [facility] Extra [address] 500 MG [...] 16, 2023 12:00am Start: 07-03-2023 End: 07-06-2023 [place] 325- 5 mg oral tablet Dose = [...] qDay, # 180 tab(s), 3 Refill(s), Pharmacy: [facility]/pharmacy #[id number], 167.6, cm, 11/20/22 11:29:00 EST, Height, kg, 11/20/22 11:29:00 EST, Dosing Weight Start Date: 11/20/22 Status: Ordered Start: 11-13-2021 calcium (as ca rbonate) 600 mg oral tablet Dose : 1,200 mg = 2 tab(s), Oral, qDay, # 180 tab(s), 3 Refill(s), Pharmacy: [facility]/pharmacy #[id number], 167.6, cm, 11/05/21 9:58:00 EST, Height, [...] TID, # 270 cap(s), 0 Refill(s), Pharmacy: [facility]/pharmacy #[id number], Diabetic neuropathy, 168.91, cm, 02/18/23 11:25:00 EDT, Height, 127.7, kg, 02/18/23 11:25:00 EDT, Dosing Weight Start Date: 06/10/23 Stop Date: 09/08/23 Status: Ordered Start: 11-20-2022 End: 02-18-2023 gabapentin 400 mg oral capsu le Dose : 400 mg = 1 cap(s), Oral, TID, # 270 cap(s), 0 Refill(s), Pharmacy: [facility]/pharmacy #[id number], Diabetic neuropathy, 167.6, cm, 11/20/22 11:29:00 EST, Height, 134, kg, 11/20/22 11:29:00 EST, Dosing Weight Start Date: 11/20/22 Stop Date: 02/18/23 Status: Ordered Start: 10-25-2021 End: 01-23-2022 gabapentin 400 mg oral capsu le Dose : 400 mg = 1 cap(s), Oral, TID, dose change, # 270 cap(s), 0 Refill(s), Pharmacy: [facility]/pharmacy #[id number], Diabetic neuropathy, 166.37, cm, 07/24/21 11:31:00 EDT, Height, 134.5, kg, 07/24/21 11:31:00 EDT, Dosing Weight Start Date: 10/25/21 Stop Date: 01/23/22 Status: Ordered Start: 04-23-2021 End: 07-22-2021 gabapentin 400 mg oral capsu le Dose : 400 mg = 1 cap(s), Oral, TID, dose change, # 270 cap(s), 0 Refill(s), Pharmacy: [facility]/pharmacy #[id number], Diabetic neuropathy, 167.6, cm, 04/23/21 11:30:00 [...] E11.9, # 4 EA, 3 Refill(s), [id number], Diabetes, 166.37, cm, 07/24/21 11:31:00 EDT, Height, kg, 07/24/21 11:31:00 EDT, Dosing Weight Start Date: 07/24/21 Stop Date: 07/19/22 Status: Ordered Start: 05-14-2021 inject 1 dose by sub cutaneous injection twice daily Lantus Solostar Pen 100 units/mL 3 mL Pen Dose : 30 unit(s) =, Subcutaneous, BID, EA=BOX OF 5 PENS diabetes E11.9, # 4 EA, 3 Refill(s), [id number], 167.6, cm, 04/23/21 11:30:00 EDT, Height, kg, 04/23/21 11:30:00 EDT, Dosing Weight Start Date: 05/14/21 Status: Ordered losartan potassium 100 mg oral tablet (15 sources) Angiotensin 2 Receptor Ysabel Start: 02-18-2023 losartan 100 mg oral tablet Dose : 100 mg = 1 tab(s), Oral, Daily, # 90 tab(s), 1 Refill(s), Pharmacy: [facility]/pharmacy #[id number], Hypertension, 168.91, cm, 02/18/23 11:25:00 EDT, Height, kg, 02/18/23 11:25:00 EDT, Dosing Weight Start Date: 02/18/23 Status: Ordered Start: 02-25-2022 losartan 100 m g oral tablet Dose : 100 mg = 1 tab(s), Oral, Daily, # 90 tab(s), 3 Refill(s), Pharmacy: [facility]/pharmacy #4605, Hypertension, 167.6, cm, 02/04/22 11:02:00 EDT, Height, kg, 02/04/22 11:02:00 EDT, Dosing Weight Start Date: 02/25/22 Status: Ordered Start: 07-24-2021 losartan 100 m g oral tablet Dose : 100 mg = 1 tab(s), Oral, Daily, In absence of PCP, # 90 tab(s), 1 Refill(s), Pharmacy: [facility]/pharmacy #4605, Hypertension, 166.37, cm, 07/24/21 11:31:00 EDT, Height, kg, 07/24/21 11:31:00 EDT, Dosing Weight Start Date: 07/24/21 Status: Ordered Start: 04-23-2021 losartan 100 m g oral tablet Dose : 100 mg = 1 tab(s), Oral, Daily, In absence of PCP, # 90 tab(s), 1 Refill(s), Pharmacy: [facility]/pharmacy #4605, Hypertension, 167.6, cm, 04/23/21 11:30:00 EDT, [...] 0 Refill(s), 07/14/23 1:08:00 PM EDT, Pharmacy: [facility]/pharmacy #4605, 160, cm, 06/30/23 18:36:00 EDT, Height, kg, 06/30/23 18:36:00 EDT, Dosing Weight Start Date: 07/04/23 Stop Date: 07/14/23 Status: Ordered Pen needles 8 mm (1 source) Start: 04-23-2021 Pen needles 8 mm See Instructions, Using Twice Daily. ONE BOX OF 100. BD UF 8mm 31 G (short) qs 3 month supply Diabetes Mellitus E11.9, # 2 EA, 0 Refill(s), [id number], 167.6, cm, 04/23/21 11:30:00 EDT, Height, [...] sites, # 9 mL, 0 Refill(s), [facility], Diabetes Diabetes mellitus, 167.6, cm, 11/20/22 [...] qHS, # 90 tab(s), 3 Refill(s), [id number], Type 2 diabetes mellitus, 167.6, cm, 08/19/22 12:13:00 EST, Height, kg, 08/19/22 12:13:00 EST, Dosing Weight Start Date: 08/20/22 Status: Ordered Start: 08-28-2021 simvastatin 5 mg oral tablet Dose : 5 mg = 1 tab(s), Oral, qHS, # 90 tab(s), 3 Refill(s), Pharmacy: [facility]/pharmacy #4605, Type 2 diabetes mellitus, 166.37, cm, [...] qHS, # 90 tab(s), 3 Refill(s), Pharmacy: [facility]/pharmacy #4605, Insomnia, 168.91, cm, 02/18/23 11:25:00 EDT, Height, kg, 02/18/23 11:25:00 EDT, Dosing Weight Start Date: 02/18/23 Status: Ordered Start: 05-01-2022 traZODone 100 mg oral tablet Dose : 100 mg = 1 tab(s), Oral, qHS, # 90 tab(s), 3 Refill(s), Pharmacy: [facility]/pharmacy #4605, Insomnia, 167.6, cm, 02/04/22 11:02:00 EDT, Height, kg, 02/04/22 11:02:00 EDT, Dosing Weight Start Date: 05/01/22 Status: Ordered Start: 07-24-2021 traZODone 100 mg oral tablet Dose : 100 mg = 1 tab(s), Oral, qHS, # 90 tab(s), 1 Refill(s), Pharmacy: [facility]/pharmacy #4605, Insomnia, 166.37, cm, 07/24/21 11:31:00 EDT, Height, kg, 07/24/21 11:31:00 EDT, Dosing Weight Start Date: 07/24/21 Status: Ordered Start: 04-23-2021 traZODone 100 mg oral tablet Dose : 100 mg = 1 tab(s), Oral, qHS, # 90 tab(s), 1 Refill(s), Pharmacy: [facility]/pharmacy #4605, Insomnia, 167.6, cm, 04/23/21 11:30:00 EDT, [...] Daily, # 90 cap(s), 3 Refill(s), Pharmacy: [facility]/pharmacy #4605, 166.37, cm, 07/24/21 11:31:00 EDT, Height, kg, 07/24/21 11:31:00 EDT, Dosing Weight Start Date: 09/11/21 Status: Ordered Vitamin D3 400 intl units (1 0 mcg) oral tablet (1 source) Start: 04-23-2021 Vitamin D3 400 intl units (10 mcg) oral tablet Dose : 20 mcg = 2 tab(s), Oral, qDay, # 180 tab(s), 3 Refill(s), Pharmacy: [facility]/pharmacy #4605, Vitamin D deficiency, 167.6, cm, 04/23/21 11:30:00 EDT, Height, kg, 04/23/21 11:30:00 EDT, Dosing Weight Start Date: 04/23/21 Status: Ordered Vitamin D3 50 mcg (2000 intl units) oral tablet (2 sources) Start: 08-20-2022 Vitamin D3 50 mcg (2000 intl units) oral tablet Dose : 2,000 unit(s) = 1 tab(s), Oral, Daily, dose increase, # 90 tab(s), 3 Refill(s), Pharmacy: [facility]/pharmacy #4605, Vitamin D deficiency, 167.6, cm, 08/19/22 [...] pain/diarrhea, # 120 packet(s), 0 Refill(s), Pharmacy: [facility]/pharmacy #4605, Diarrhea, 167.6, cm, 02/04/22 11:02:00 EDT, [...] pain/diarrhea, # 120 packet(s), 0 Refill(s), Pharmacy: [facility]/pharmacy #4605, Diarrhea, 167.6, cm, 02/04/22 11:02:00 EDT, [...] 11-15-2019 Chronic Other aftercare (1 source) Other fci (current) drug therapy; Translations: [Other fci (current) drug therapy] Onset: 01-12-2025 Episodic Other [...] UNABLE TO CONFIRM, TESTING DISCONTINUED AT [facility]. Urine Culture Copy of report sent to Infection Control Printer [id number] 03/04/25 Savi MENDEZ. Urine Culture RESULTS CALLED TO XAVIER Flowers 03/06/25 1412 Lorrie Patterson. REPORT READ BACK BY . Urine Culture Urine Culture ESBL Escherichia coli [place] Count 80,000-100,000 MARKER ESBL producing OrganismA MARKER [...] S Tobramycin Islt PREM <=1 S Normal [facility] Comment on above: Performed By: #### L 100.0500, L500.2500 #### [facility] [address] [place], [address] Bilirubin Test strip Ql (U)O rdered By: Balwinder Alves on 03-02-2025 Bilirubin Ql (U) Negative Negative [facility] Ketones Test strip Ql (U)Ord ered By: Balwinder Alves on 03-02-2025 Ketones Ql (U) Negative Negative [facility] Nitrite Test strip Ql (U)Ord ered By: Balwinder Alves on 03-02-2025 Nitrite Ql (U) Positive High Negative [facility] Protein Test strip Ql (U)Ord ered By: Balwinder Alves on 03-02-2025 Protein Ql (U) 30 mg/dl High Negative [facility] Urinalysis, Routine (Dipstic k)on 03-02-2025 BILIRUBIN URINE Negative Normal Negative [facility] Comment on above: Order Comment: 102.2 Performed By: #### L 100.0500, L500.2500 #### [facility] [address] [place], [address] Clarity (U) Sl. Cloudy Normal Clear [facility] Comment on above: Order Comment: 102.2 Performed By: #### L 100.0500, L500.2500 #### [facility] [address] [place], [address] Color (U) Yellow Normal Yellow [facility] Comment on above: Order Comment: 102.2 Performed By: #### L 100.0500, L500.2500 #### [facility] [address] [place], [address] GLUCOSE, UR Normal Normal Normal [facility] Comment on above: Order Comment: 102.2 Performed By: #### L 100.0500, L500.2500 #### [facility] [address] [place], [address] KETONE UR Negative Normal Negative [facility] Comment on above: Order Comment: 102.2 Performed By: #### L 100.0500, L500.2500 #### [facility] [address] [place], [address] LEUK ESTERASE 500 /ul Abnormal Negative [facility] Comment on above: Order Comment: 102.2 Performed By: #### L 100.0500, L500.2500 #### [facility] [address] [place], [address] Nitrite Ql (U) Positive Abnormal Negative [facility] Comment on above: Order Comment: 102.2 Performed By: #### L 100.0500, L500.2500 #### [facility] [address] [place], [address] OCCULT BLOOD-UR 50 /ul Abnormal Negative [facility] Comment on above: Order Comment: 102.2 Performed By: #### L 100.0500, L500.2500 #### [facility] [address] [place], [address] pH UR 6.0 Normal 5.0 - 8.0 [facility] Comment on above: Order Comment: 102.2 Performed By: #### L 100.0500, L500.2500 #### [facility] [address] [place], [address] PROT DIPSTX 30 mg/dl Abnormal Negative [facility] Comment on above: Order Comment: 102.2 Performed By: #### L 100.0500, L500.2500 #### [facility] [address] [place], [address] SP.GR. DIPSTX 1.010 Normal 1.002-1.030 [facility] Comment on above: Order Comment: 102.2 Performed By: #### L 100.0500, L500.2500 #### [facility] [address] [place], [address] UROBILI Normal Normal Normal [facility] Comment on above: Order Comment: 102.2 Performed By: #### L 100.0500, L500.2500 #### [facility] [address] [place], [address] Urine clarityOrdered By: Javed Alves on 03-02-2025 Clarity (U) Sl. Cloudy Clear [facility] Urine color determinationOrd ered By: Balwinder Alves on 03-02-2025 Color (U) Yellow Yellow [facility] Urine cultureOrdered By: Javed Alves on 03-02-2025 Bacteria identified Cx Nom (U) ESBL Escherichia coli Abnormal [facility] Urine glucose detectionOrder ed By: Balwinder Alves on 03-02-2025 Glucose Ql (U) Normal mg/dl Normal [facility] Urine leukocyte esterase det ection by dipstickOrdered By: Balwinder Alves on 03-02-2025 Leukocyte esterase Test strip Ql (U) 500 /ul High Negative [facility] Urine pHOrdered By: Balwinder blackman on 03-02-2025 pH (U) 6.0 [pH] 5.0 - 8.0 [facility] Urine specific gravity measu rementOrdered By: Balwinder Alves on 03-02-2025 Specific gravity (U) [Rel density] 1.010 1.002-1.030 [facility] Urine urobilinogen measureme ntOrdered By: Balwinder Alves on 03-02-2025 Urobilinogen Ql (U) Normal mg/dl Normal [facility] Urine Cultureon 02-10-2025 [facility] Copy of report sent to Infection Control Printer [id number] 02/09/25 08Amari MENDEZ. Urine Culture RESULTS CALLED TO AUSTEN GARCIA 02/09/25 0813 Alesia Barrera. REPORT READ BACK SAME. Urine Culture Urine Culture Urine Culture ESBL Escherichia coli [place] Count >100,000 MARKER ESBL producing OrganismA MARKER [...] S Tobramycin Islt PREM <=1 S Normal [facility] Comment on above: Performed By: #### L 100.0500, L500.2500 #### [facility] [address] [place] [address]. [place], [address] Bilirubin Test strip Ql (U)O rdered By: Balwinder Alves on 02-07-2025 Bilirubin Ql (U) Negative Negative [facility] Ketones Test strip Ql (U)Ord ered By: Balwinder Alves on 02-07-2025 Ketones Ql (U) Negative Negative [facility] Nitrite Test strip Ql (U)Ord ered By: Balwinder Alves on 02-07-2025 Nitrite Ql (U) Positive High Negative [facility] Protein Test strip Ql (U)Ord ered By: Balwinder Alves on 02-07-2025 Protein Ql (U) 15 mg/dl High Negative [facility] Urinalysis, Routine (Dipstic k)on 02-07-2025 Clarity (U) Clear Normal Clear [facility] Comment on above: Order Comment: 102.2 Performed By: #### L 100.0500, L500.2500 #### [facility] [address] [place], [address] Color (U) Yellow Normal Yellow [facility] Comment on above: Order Comment: 102.2 Performed By: #### L 100.0500, L500.2500 #### [facility] [address] [place], [address] BILIRUBIN URINE Negative Normal Negative [facility] Comment on above: Order Comment: 102.2 Performed By: #### L 100.0500, L500.2500 #### [facility] [address] [place], [address] GLUCOSE, UR Normal Normal Normal [facility] Comment on above: Order Comment: 102.2 Performed By: #### L 100.0500, L500.2500 #### [facility] [address] [place], [address] KETONE UR Negative Normal Negative [facility] Comment on above: Order Comment: 102.2 Performed By: #### L 100.0500, L500.2500 #### [facility] [address] [place], [address] LEUK ESTERASE 500 /ul Abnormal Negative [facility] Comment on above: Order Comment: 102.2 Performed By: #### L 100.0500, L500.2500 #### [facility] [address] [place], [address] Nitrite Ql (U) Positive Abnormal Negative [facility] Comment on above: Order Comment: 102.2 Performed By: #### L 100.0500, L500.2500 #### [facility] [address] [place], [address] OCCULT BLOOD-UR 25 /ul Abnormal Negative [facility] Comment on above: Order Comment: 102.2 Performed By: #### L 100.0500, L500.2500 #### [facility] [address] [place], [address] pH UR 6.5 Normal 5.0 - 8.0 [facility] Comment on above: Order Comment: 102.2 Performed By: #### L 100.0500, L500.2500 #### [facility] [address] [place], [address] PROT DIPSTX 15 mg/dl Abnormal Negative [facility] Comment on above: Order Comment: 102.2 Performed By: #### L 100.0500, L500.2500 #### [facility] [address] [place], [address] SP.GR. DIPSTX 1.005 Normal 1.002-1.030 [facility] Comment on above: Order Comment: 102.2 Performed By: #### L 100.0500, L500.2500 #### [facility] [address] [place], [address] UROBILI Normal Normal Normal [facility] Comment on above: Order Comment: 102.2 Performed By: #### L 100.0500, L500.2500 #### [facility] [address] [place], [address] Urine clarityOrdered By: Javed Alves on 02-07-2025 Clarity (U) Clear Clear [facility] Urine color determinationOrd ered By: Balwinder Alves on 02-07-2025 Color (U) Yellow Yellow [facility] Urine cultureOrdered By: Javed Alves on 02-07-2025 Bacteria identified Cx Nom (U) ESBL Escherichia coli Abnormal [facility] Urine glucose detectionOrder ed By: Balwinder Alves on 02-07-2025 Glucose Ql (U) Normal mg/dl Normal [facility] Urine leukocyte esterase det ection by dipstickOrdered By: Balwinder Alves on 02-07-2025 Leukocyte esterase Test strip Ql (U) 500 /ul High Negative [facility] Urine pHOrdered By: Balwinder blackman on 02-07-2025 pH (U) 6.5 [pH] 5.0 - 8.0 [facility] Urine specific gravity measu rementOrdered By: Balwinder Alves on 02-07-2025 Specific gravity (U) [Rel density] 1.005 1.002-1.030 [facility] Urine urobilinogen measureme ntOrdered By: Balwinder Alves on 02-07-2025 Urobilinogen Ql (U) Normal mg/dl Normal [facility] Urine Cultureon 01-27-2025 [facility] STRAIGHT CATH #1 Possible E.coli 0157. Confirmation testing unable to be performed, test discontinued at [facility]. Urine Culture [facility] 01/27/25 1041 Lorrie Patterson. REPORT READ BACK BY . Urine Culture Copy of report sent to Infection Control Printer [id number] 01/27/25 1041 ESSENCE. Urine Culture ESBL Escherichia coli [place] Count 80,000-100,000 MARKER ESBL producing OrganismA MARKER ESBL producing OrganismA [place] Count 50,000-80,000 Proteus mirabilis Amikacin Islt PREM [...] TMP SMX Islt PREM <=20 S Normal [facility] Comment on above: Performed By: #### L 100.0500, L500.2500 #### [facility] [address] [place], [address] Urinalysis, Completeon 01-24 BILIRUBIN URINE Negative Normal Negative [facility] Comment on above: Order Comment: 102.2 Performed By: #### L 100.0500, L500.2500 #### [facility] [address] [place], [address] Clarity (U) Sl. Cloudy Normal Clear [facility] Comment on above: Order Comment: 102.2 Performed By: #### L 100.0500, L500.2500 #### [facility] [address] [place], [address] Color (U) Yellow Normal Yellow [facility] Comment on above: Order Comment: 102.2 Performed By: #### L 100.0500, L500.2500 #### [facility] [address] [place], [address] GLUCOSE, UR Normal Normal Normal [facility] Comment on above: Order Comment: 102.2 Performed By: #### L 100.0500, L500.2500 #### [facility] [address] [place], [address] KETONE UR Negative Normal Negative [facility] Comment on above: Order Comment: 102.2 Performed By: #### L 100.0500, L500.2500 #### [facility] [address] [place], [address] LEUK ESTERASE 500 /ul Abnormal Negative [facility] Comment on above: Order Comment: 102.2 Performed By: #### L 100.0500, L500.2500 #### [facility] [address] [place], [address] Nitrite Ql (U) Positive Abnormal Negative [facility] Comment on above: Order Comment: 102.2 Performed By: #### L 100.0500, L500.2500 #### [facility] [address] [place], [address] OCCULT BLOOD-UR 50 /ul Abnormal Negative [facility] Comment on above: Order Comment: 102.2 Performed By: #### L 100.0500, L500.2500 #### [facility] [address] [place], [address] pH UR 6.5 Normal 5.0 - 8.0 [facility] Comment on above: Order Comment: 102.2 Performed By: #### L 100.0500, L500.2500 #### [facility] [address] [place], [address] PROT DIPSTX 15 mg/dl Abnormal Negative [facility] Comment on above: Order Comment: 102.2 Performed By: #### L 100.0500, L500.2500 #### [facility] [address] [place], [address] SP.GR. DIPSTX 1.010 Normal 1.002-1.030 [facility] Comment on above: Order Comment: 102.2 Performed By: #### L 100.0500, L500.2500 #### [facility] [address] [place], [address] UROBILI Normal Normal Normal [facility] Comment on above: Order Comment: 102.2 Performed By: #### L 100.0500, L500.2500 #### [facility] [address] [place], [address] Bilirubin Test strip Ql (U)O rdered By: Balwinder Alves on 01-23-2025 Bilirubin Ql (U) Negative Negative [facility] Epithelial cells.squamous LM Ql (Urine sed)Ordered By: Balwinder Alves on 01-23-2025 Epithelial cells.squamous LM.HPF (Urine sed) [#/Area] 0 /[HPF] 5-10 [facility] Glucose Ql (U)Ordered By: Jen Alves on 01-23-2025 Urine Glucose (UA) Normal mg/dl Normal [facility] Ketones Test strip Ql (U)Ord ered By: Balwinder Alves on 01-23-2025 Ketones Ql (U) Negative Negative [facility] Microscopic analysis of urin e for red blood cells (RBC)Ordered By: Balwinder Alves on 01-23-2025 Microscopic analysis of urine for red blood cells (RBC) 0-5 SEEN /hpf 0-5 [facility] Urine RBC 0-5 SEEN /hpf 0-5 [facility] Mucus LM Ql (Urine sed)Order ed By: Balwinder Alves on 01-23-2025 Mucus Ql (Urine sed) 0 SEEN /hpf [facility] Nitrite Test strip Ql (U)Ord ered By: Balwinder Alves on 01-23-2025 Nitrite Ql (U) Positive High Negative [facility] Protein Test strip Ql (U)Ord ered By: Balwinder Alves on 01-23-2025 Protein Ql (U) 15 mg/dl High Negative [facility] Squamous epithelial cells de tection in urine sediment by light microscopyOrdered By: Balwinder Alves on 01-23-2025 Epithelial cells.squamous LM Ql (Urine sed) 0-5 SEEN /hpf 5-10 [facility] Urine blood detectionOrdered By: Balwinder Alves on 01-23-2025 Urine Occult Blood 50 /ul High Negative [facility] Urine clarityOrdered By: Javed Alves on 01-23-2025 Clarity (U) Sl. Cloudy Clear [facility] Urine color determinationOrd ered By: Balwinder Alves on 01-23-2025 Color (U) Yellow Yellow [facility] Urine cultureOrdered By: Javed Alves on 01-23-2025 Bacteria identified Cx Nom (U) ESBL Escherichia coli Abnormal [facility] Bacteria identified Cx Nom (U) Proteus mirabilis Abnormal [facility] Urine glucose detectionOrder ed By: Balwinder Alves on 01-23-2025 Glucose Ql (U) Normal mg/dl Normal [facility] Urine leukocyte esterase det ection by dipstickOrdered By: Balwinder Alves on 01-23-2025 Leukocyte esterase Test strip Ql (U) 500 /ul High Negative [facility] Urine pHOrdered By: Balwinder blackman on 01-23-2025 pH (U) 6.5 [pH] 5.0 - 8.0 [facility] Urine sediment bacteria coun t by microscopy (number/high power field)Ordered By: Balwinder Alves on 01-23-2025 Bacteria LM.HPF (Urine sed) [#/Area] 2 /[HPF] None Seen [facility] Urine specific gravity measu rementOrdered By: Balwinder Alves on 01-23-2025 Specific gravity (U) [Rel density] 1.010 1.002-1.030 [facility] Urine urobilinogen measureme ntOrdered By: Balwinder Alves on 01-23-2025 Urobilinogen Ql (U) Normal mg/dl Normal [facility] Urobilinogen Ql (U)Ordered B y: Balwinder Alves on 01-23-2025 Urine Urobilinogen Normal mg/dl Normal [facility] White blood cell countOrdere d By: Balwinder Alves on 01-23-2025 Urine WBC 5-10 SEEN /hpf 0-5 [facility] White blood cell count 5-10 SEEN /hpf 0-5 [facility] Urine Cultureon 01-13-2025 URC #1 POSSIBLE ECOLI 0157. Unable to send to [facility] for confirmation testing due to new [facility] policies regarding serotyping and virulence profiling. Urine Culture Copy of report sent to [facility]inter [id number] 01/11/25 1618 ANDREA. ESBL Escherichia coli [place] Count 50,000-80,000 MARKER ESBL producing OrganismA MARKER ESBL producing OrganismA [place] Count 50,000-80,000 Escherichia coli [place] Count 50,000-80,000 ESBL Escherichia coli: REACTION Proteus [...] TMP SMX Islt PREM <=20 S Normal [facility] Comment on above: Performed By: #### M 100.2200, L400 #### [facility] [address] [facility] [place], [address] Bilirubin Test strip Ql (U)O rdered By: Balwinder Alves on 01-09-2025 Bilirubin Ql (U) Negative Negative [facility] Glucose Ql (U)Ordered By: Jen Alves on 01-09-2025 Urine Glucose (UA) Normal mg/dl Normal [facility] Ketones Test strip Ql (U)Ord ered By: Balwinder Alves on 01-09-2025 Ketones Ql (U) Negative Negative [facility] Nitrite Test strip Ql (U)Ord ered By: Balwinder Alves on 01-09-2025 Nitrite Ql (U) Positive High Negative [facility] Protein Test strip Ql (U)Ord ered By: Balwinder Alves on 01-09-2025 Protein Ql (U) 30 mg/dl High Negative [facility] Urinalysis, Routine (Dipstic k)on 01-09-2025 BILIRUBIN URINE Negative Normal Negative [facility] Comment on above: Order Comment: ALFA TER SPECIMEN Performed By: #### M 100.2200, L400.2010 #### [facility] [address], [address] Clarity (U) Cloudy Normal Clear [facility] Comment on above: Order Comment: ALFA TER SPECIMEN Performed By: #### M , L4.2010 #### [facility] [address] [place], [address] Color (U) Yellow Normal Yellow [facility] Comment on above: Order Comment: ALFA TER SPECIMEN Performed By: #### M , L4.2010 #### [facility] [address] [place], [address] GLUCOSE, UR Normal Normal Normal [facility] Comment on above: Order Comment: ALFA TER SPECIMEN Performed By: #### M , L4 #### [facility] [address] [place], [address] KETONE UR Negative Normal Negative [facility] Comment on above: Order Comment: ALFA TER SPECIMEN Performed By: #### M , L4 #### [facility] [address] [place], [address] LEUK ESTERASE 500 /ul Abnormal Negative [facility] Comment on above: Order Comment: ALFA TER SPECIMEN Performed By: #### M , L4 #### [facility] [address] [place], [address] Nitrite Ql (U) Positive Abnormal Negative [facility] Comment on above: Order Comment: ALFA TER SPECIMEN Performed By: #### M , L4 #### [facility] [address] [place], [address] OCCULT BLOOD-UR 150 /ul Abnormal Negative [facility] Comment on above: Order Comment: ALFA TER SPECIMEN Performed By: #### M , L4 #### [facility] [address] [place], [address] pH UR 6.5 Normal 5.0 - 8.0 [facility] Comment on above: Order Comment: ALFA TER SPECIMEN Performed By: #### M 100.2200, L4.2010 #### [facility] [address] [place], [address] PROT DIPSTX 30 mg/dl Abnormal Negative [facility] Comment on above: Order Comment: ALFA TER SPECIMEN Performed By: #### M 100.2200, L400.2010 #### [facility] [address] [place], [address] SP.GR. DIPSTX 1.010 Normal 1.002-1.030 [facility] Comment on above: Order Comment: ALFA TER SPECIMEN Performed By: #### M 100.0, L4.2010 #### [facility] [address] [place], [address] UROBILI Normal Normal Normal [facility] Comment on above: Order Comment: ALFA TER SPECIMEN Performed By: #### M 100.2199, L4.2010 #### [facility] [address] [place], [address] Urine blood detectionOrdered By: Balwinder Alves on 01-09-2025 Urine Occult Blood 150 /ul High Negative [facility] Urine clarityOrdered By: Javed Alves on 01-09-2025 Clarity (U) Cloudy Clear [facility] Urine color determinationOrd ered By: Balwinder Alves on 01-09-2025 Color (U) Yellow Yellow [facility] Urine cultureOrdered By: Javed Alves on 01-09-2025 Bacteria identified Cx Nom (U) ESBL Escherichia coli Abnormal [facility] Bacteria identified Cx Nom (U) Escherichia coli Abnormal [facility] Bacteria identified Cx Nom (U) Proteus mirabilis Abnormal [facility] Urine glucose detectionOrder ed By: Balwinder Alves on 01-09-2025 Glucose Ql (U) Normal mg/dl Normal [facility] Urine leukocyte esterase det ection by dipstickOrdered By: Balwinder Alves on 01-09-2025 Leukocyte esterase Test strip Ql (U) 500 /ul High Negative [facility] Urine pHOrdered By: Balwinder blackman on 01-09-2025 pH (U) 6.5 [pH] 5.0 - 8.0 [facility] Urine specific gravity measu rementOrdered By: Balwinder Nelson on 01-09-2025 Specific gravity (U) [Rel density] 1.010 1.002-1.030 [facility] Urine urobilinogen measureme ntOrdered By: Balwinder Alves on 01-09-2025 Urobilinogen Ql (U) Normal mg/dl Normal [facility] Urobilinogen Ql (U)Ordered B y: Balwinder Alves on 01-09-2025 Urine Urobilinogen Normal mg/dl Normal [facility] Urine Cultureon 01-07-2025 URC #2 Possible E.coli 0157. Unable to send to [facility] for confirmation testing due to new [facility] policies regarding serotyping and virulence profiling. Urine Culture Copy of report sent to [facility] [id number] 01/06/25 1319 ANDREA. Urine Culture RESULTS CALLED TO TRISH BOYCE 01/06/25 1321 Alesia Barrera. REPORT READ BACK . Proteus mirabilis [place] Count 50,000-80,000 ESBL Escherichia coli ESBL Escherichia [...] <=0.25 Tobramycin Islt PREM <=1 S Normal [facility] Comment on above: Performed By: #### M .2199, #### [facility] [address] [place], [address] Urinalysis, Routine (Dipstic k)on 01-03-2025 BILIRUBIN URINE Negative Normal Negative [facility] Comment on above: Order Comment: CLEAN CATCH Performed By: #### M , L4 #### [facility] [address] [place], [address] Clarity (U) Sl. Cloudy Normal Clear [facility] Comment on above: Order Comment: CLEAN CATCH Performed By: #### M #### [facility] [address] [place], [address] Color (U) Yellow Normal Yellow [facility] Comment on above: Order Comment: CLEAN CATCH Performed By: #### M L4 #### [facility] [address] [place], [address] GLUCOSE, UR Normal Normal Normal [facility] Comment on above: Order Comment: CLEAN CATCH Performed By: #### M 100 L4 #### [facility] [address] [place], [address] KETONE UR Negative Normal Negative [facility] Comment on above: Order Comment: CLEAN CATCH Performed By: #### M 100, L4 #### [facility] [address] [place], [address] LEUK ESTERASE 500 /ul Abnormal Negative [facility] Comment on above: Order Comment: CLEAN CATCH Performed By: #### M 100, L4 #### [facility] [address] [place], [address] Nitrite Ql (U) Positive Abnormal Negative [facility] Comment on above: Order Comment: CLEAN CATCH Performed By: #### M 100.2200, L400.2010 #### [facility] [address] [place], [address] OCCULT BLOOD-UR 150 /ul Abnormal Negative [facility] Comment on above: Order Comment: CLEAN CATCH Performed By: #### M 100.2199, L4.2010 #### [facility] [address] [place], [address] pH UR 6.5 Normal 5.0 - 8.0 [facility] Comment on above: Order Comment: CLEAN CATCH Performed By: #### M 100.2199, L400.2010 #### [facility] [address] [place], [address] PROT DIPSTX 30 mg/dl Abnormal Negative [facility] Comment on above: Order Comment: CLEAN CATCH Performed By: #### M 100.2199, L400 #### [facility] [address] [place], [address] SP.GR. DIPSTX 1.010 Normal 1.002-1.030 [facility] Comment on above: Order Comment: CLEAN CATCH Performed By: #### M 100.2199, L400 #### [facility] [address] [place], [address] UROBILI Normal Normal Normal [facility] Comment on above: Order Comment: CLEAN CATCH Performed By: #### M 100.2199, L400.2010 #### [facility] [address] [place], [address] Bilirubin Test strip Ql (U)O rdered By: Balwinder Alves on 01-02-2025 Bilirubin Ql (U) Negative Negative [facility] Glucose Ql (U)Ordered By: Jen Alves on 01-02-2025 Urine Glucose (UA) Normal mg/dl Normal [facility] Ketones Test strip Ql (U)Ord ered By: Balwinder Alves on 01-02-2025 Ketones Ql (U) Negative Negative [facility] Nitrite Test strip Ql (U)Ord ered By: Balwinder Alves on 01-02-2025 Nitrite Ql (U) Positive High Negative [facility] Protein Test strip Ql (U)Ord ered By: Balwinder Alves on 01-02-2025 Protein Ql (U) 30 mg/dl High Negative [facility] Urine blood detectionOrdered By: Balwinder Alves on 01-02-2025 Urine Occult Blood 150 /ul High Negative [facility] Urine clarityOrdered By: Javed Alves on 01-02-2025 Clarity (U) Sl. Cloudy Clear [facility] Urine color determinationOrd ered By: Balwinder Alves on 01-02-2025 Color (U) Yellow Yellow [facility] Urine cultureOrdered By: Javed Alves on 01-02-2025 Bacteria identified Cx Nom (U) Proteus mirabilis Abnormal [facility] Bacteria identified Cx Nom (U) ESBL Escherichia coli Abnormal [facility] Urine glucose detectionOrder ed By: Balwinder Alves on 01-02-2025 Glucose Ql (U) Normal mg/dl Normal [facility] Urine leukocyte esterase det ection by dipstickOrdered By: Balwinder Alves on 01-02-2025 Leukocyte esterase Test strip Ql (U) 500 /ul High Negative [facility] Urine pHOrdered By: Balwinder blackman on 01-02-2025 pH (U) 6.5 [pH] 5.0 - 8.0 [facility] Urine specific gravity measu rementOrdered By: Balwinder Alves on 01-02-2025 Specific gravity (U) [Rel density] 1.010 1.002-1.030 [facility] Urine urobilinogen measureme ntOrdered By: Balwinder Alves on 01-02-2025 Urobilinogen Ql (U) Normal mg/dl Normal [facility] Urobilinogen Ql (U)Ordered B y: Balwinder Alves on 01-02-2025 Urine Urobilinogen Normal mg/dl Normal [facility] Absolute lymphocyte countOrd ered By: Balwinder Alves on 12-26-2024 Lymphocytes Auto (Unsp spec) [#/Vol] 1.77 10*3/uL 0.83-4.51 [facility] Absolute neutrophil countOrd ered By: Balwinder Alves on 12-26-2024 Neutrophils (Bld) [#/Vol] 4.6 10*3/uL 2.0-7.7 [facility] Anion gap in Serum or Plasma Ordered By: Balwinder Alves on 12-26-2024 Anion gap [Moles/Vol] 9 mmol/L 5- [facility] Automated lymphocyte count a s percentage of total leukocytesOrdered By: Balwinder Alves on 12-26-2024 Lymphocytes/100 WBC Auto (Unsp spec) 24.8 % [facility] BUN/creatinine ratioOrdered By: Balwinder Alves on 12-26-2024 Urea nitrogen/Creatinine [Mass ratio] 12.2 mg/mg - [facility] Basic Metabolic Profile (BMP )on 12-26-2024 BUN/CRE 12.2 RATIO Normal 07-24 [facility] Comment on above: Order Comment: 102-2 Performed By: #### L 500.2500, L100.0100 #### [facility] [address] [place], [address] Calcium [Mass/Vol] 9.1 mg/dL Normal 7.6-11.0 [facility] Comment on above: Order Comment: 102-2 Performed By: #### L 500.2500, L100.0100 #### [facility] [address] [place], [address] Chloride [Moles/Vol] 99 mmol/L Normal 98-108 [facility] Comment on above: Order Comment: 102-2 Performed By: #### L 500.2500, L100.0100 #### [facility] [address] [place], [address] CO2 [Moles/Vol] 29.0 mmol/L Normal 21.0-32.0 [facility] Comment on above: Order Comment: 102-2 Performed By: #### L 500.2500, L100.0100 #### [facility] [address] [place], [address] Creatinine [Mass/Vol] 0.67 mg/dL Low 0.70-1.[address] [facility] Comment on above: Order Comment: 102-2 Performed By: #### L 500.2500, L100.0100 #### [facility] [address] [place], [address] GAP 9 Normal 5-15 [facility] Comment on above: Order Comment: 102-2 Performed By: #### L 500.2500, L100.0100 #### [facility] [address] [place], [address] GFR/1.73 sq M.predicted among non-blacks MDRD (S/P/Bld) [Vol rate/Area] 88 mL/min/{1.73_m2} Normal >60 [facility] Comment on above: Order Comment: 102-2 Result Comment: mL/m in/1.73m2 CKD-EPI Creatinine Equation (2020) Performed By: #### L 500.2500, L100.0100 #### [facility] [address] [place], [address] Glucose [Mass/Vol] 215 mg/dL High 70-99 [facility] Comment on above: Order Comment: 102-2 Performed By: #### L 500.2500, L100.0100 #### [facility] [address] [place], [address] Potassium [Moles/Vol] 4.6 mmol/L Normal 3.3-5.[address] [facility] Comment on above: Order Comment: 102-2 Performed By: #### L 500.2500, L100.0100 #### [facility] [address] [place], [address] Sodium [Moles/Vol] 137 mmol/L Normal 133-145 [facility] Comment on above: Order Comment: 102-2 Performed By: #### L 500.2500, L100.0100 #### [facility] [address] [place], [address] Urea nitrogen [Mass/Vol] 8 mg/dL Normal 4-19 [facility] Comment on above: Order Comment: 102-2 Performed By: #### L 500.2500, L100.0100 #### [facility] [address] [place], [address] Basophil percentageOrdered B y: Balwinder Alves on 12-26-2024 Basophils/100 WBC (Bld) 0.6 % 0-1 [facility] CBC W/Diff, Automatedon 12-04 Absolute Lymph 1.77 X10 3/uL Normal 0.83-4.51 [facility] Comment on above: Order Comment: 102-2 Performed By: #### L 500.2500, L100.0100 #### [facility] [address] [place], [address] Absolute Neut 4.6 X10 3/uL Normal 2.0-7.7 [facility] Comment on above: Order Comment: 102-2 Performed By: #### L 500.2500, L100.0100 #### [facility] [address] [place], [address] Basophils/100 WBC (Bld) 0.6 % Normal 0-1 [facility] Comment on above: Order Comment: 102-2 Performed By: #### L 500.2500, L100.0100 #### [facility] [address] [place], [address] Eosinophils/100 WBC (Bld) 2.9 % Normal 0-5 [facility] Comment on above: Order Comment: 102-2 Performed By: #### L 500.2500, L100.0100 #### [facility] [address] [place], [address] Erythrocyte distribution width (RBC) [Ratio] 13.9 % Normal 11.6-14.6 [facility] Comment on above: Order Comment: 102-2 Performed By: #### L 500.2500, L100.0100 #### [facility] [address] [place], [address] Hematocrit (Bld) [Volume fraction] 35.6 % Low 37-47 [facility] Comment on above: Order Comment: 102-2 Performed By: #### L 500.2500, L100.0100 #### [facility] [address] [place], [address] Hemoglobin (Bld) [Mass/Vol] 10.9 g/dL Low 12.0-15.0 [facility] Comment on above: Order Comment: 102-2 Performed By: #### L 500.2500, L100.0100 #### [facility] [address], [address] IG% 0.700 Normal 0.0-0.9 [facility] Comment on above: Order Comment: 102-2 Result Comment: IG% - Immature Granulocytes (promyelocytes, myelocytes and metamyelocytes) > 1% indicates that a LEFT SHIFT is Present. Performed By: #### L 500.2500, L100.0100 #### [facility] [address] [place], [address] Lymphocytes/100 WBC (Bld) 24.8 % Normal 19-41 [facility] Comment on above: Order Comment: 102-2 Performed By: #### L 500.2500, L100.0100 #### [facility] [address] [place], [address] MCH (RBC) [Entitic mass] 28.8 pg Normal 27.0-32.0 [facility] Comment on above: Order Comment: 102-2 Performed By: #### L 500.2500, L100.0100 #### [facility] [address] [place], [address] MCHC (RBC) [Mass/Vol] 30.6 g/dL Low 32-[address] [facility] Comment on above: Order Comment: 102-2 Performed By: #### L 500.2500, L100.0100 #### [facility] [address] [place], [address] MCV (RBC) [Entitic vol] 93.9 fL Normal 81-99 [facility] Comment on above: Order Comment: 102-2 Performed By: #### L 500.2500, L100.0100 #### [facility] [address] [place], [address] Monocytes/100 WBC (Bld) 6.3 % Normal 0-10 [facility] Comment on above: Order Comment: 102-2 Performed By: #### L 500.2500, L100.0100 #### [facility] [address] [place], [address] Neutrophils/100 WBC (Bld) 64.7 % Normal 47-70 [facility] Comment on above: Order Comment: 102-2 Performed By: #### L 500.2500, L100.0100 #### [facility] [address] [place], [address] Nucleated RBC (Bld) [#/Vol] 0 10*3/uL Normal 0-5 [facility] Comment on above: Order Comment: 102-2 Performed By: #### L 500.2500, L100.0100 #### [facility] [address] [place], [address] Platelet mean volume (Bld) [Entitic vol] 8.6 fL Normal 6.2-12.0 [facility] Comment on above: Order Comment: 102-2 Performed By: #### L 500.2500, L100.0100 #### [facility] [address] [place], [address] Platelets (Bld) [#/Vol] 221 10*3/uL Normal 150-450 [facility] Comment on above: Order Comment: 102-2 Performed By: #### L 500.2500, L100.0100 #### [facility] [address] [place], [address] RBC (Bld) [#/Vol] 3.79 10*6/uL Low 4.2-5.4 [facility] Comment on above: Order Comment: 102-2 Performed By: #### L 500.2500, L100.0100 #### [facility] [address] [place], [address] RDW SD 47.6 fl High 35.1-43.9 [facility] Comment on above: Order Comment: 102-2 Performed By: #### L 500.2500, L100.0100 #### [facility] [address] [place], [address] WBC (Bld) [#/Vol] 7.1 10*3/uL Normal 4.4-11.0 [facility] Comment on above: Order Comment: 102-2 Performed By: #### L 500.2500, L100.0100 #### [facility] [address] [place], [address] Carbon dioxide, total [Moles /volume] in Central venous bloodOrdered By: Balwinder Alves on 12-26-2024 CO2 [Moles/Vol] 29.0 mmol/L 21.0-32.0 [facility] Chloride assayOrdered By: Jen Alves on 12-26-2024 Chloride [Moles/Vol] 99 mmol/L 98-108 [facility] Eosinophil percentageOrdered By: Balwinder Alves on 12-26-2024 Eosinophils/100 WBC (Bld) 2.9 % 0-5 [facility] Erythrocyte distribution wid th (RBC) [Ratio]Ordered By: Balwinder Alves on 12-26-2024 Erythrocyte distribution width (RBC) [Entitic vol] 47.6 fL High 35.1-43.9 [facility] Erythrocyte distribution wid th ratioOrdered By: Balwinder Alves on 12-26-2024 Erythrocyte distribution width (RBC) [Ratio] 13.9 % 11.6-14.6 [facility] Erythrocyte distribution wid th standard deviationOrdered By: Balwinder Alves on 12-26-2024 Erythrocyte distribution width (RBC) [Ratio] 47.6 fl High 35.1-43.9 [facility] GFR/1.73 sq M.predicted philipp g non-blacks MDRD (S/P/Bld) [Vol rate/Area]Ordered By: Balwinder Alves on 12-26-2024 Estimated GFR (MDRD) Non-Af Amer 88 >60 [facility] Comment on above: mL/min/1.73m2 CKD-EP I Creatinine Equation (2020) Glomerular filtration rate ( GFR) estimation/1.73 sq m using serum, plasma, or whole bOrdered By: Balwinder Alves on 12-26-2024 GFR/1.73 sq M.predicted among non-blacks MDRD (S/P/Bld) [Vol rate/Area] 88 mL/min/{1.73_m2} >60 [facility] Comment on above: mL/min/1.73m2 CKD-EP I Creatinine Equation (2020) Hematocrit Auto (Bld) [Volum e fraction]Ordered By: Balwinder Alves on 12-26-2024 Hematocrit (Bld) [Volume fraction] 35.6 % Low 37-47 [facility] Hemoglobin measurementOrdere d By: Balwinder Alves on 12-26-2024 Hemoglobin (Bld) [Mass/Vol] 10.9 g/dL Low 12.0-15.0 [facility] Immature granulocytes/100 WB C Auto (Bld)Ordered By: Balwinder Alves on 12-26-2024 Immature granulocytes/100 WBC (Bld) 0.700 % 0.0-0.9 [facility] Comment on above: IG% - Immature Granu locytes (promyelocytes, myelocytes and metamyelocytes) > 1% indicates that a LEFT SHIFT is Present. Lymphocytes Auto (Unsp spec) [#/Vol]Ordered By: Balwinder Alves on 12-26-2024 Lymphocytes (Bld) [#/Vol] 1.77 10*3/uL 0.83-4.51 [facility] Lymphocytes/100 WBC Auto (Un sp spec)Ordered By: Balwinder Alves on 12-26-2024 Lymphocytes/100 WBC (Bld) 24.8 % 19-41 [facility] MCV (mean corpuscular volume ) determinationOrdered By: Balwinder Alves on 12-26-2024 MCV (RBC) [Entitic vol] 93.9 fL 81-99 [facility] Mean corpuscular hemoglobin (MCH) determinationOrdered By: Balwinder Alves on 12-26-2024 MCH (RBC) [Entitic mass] 28.8 pg 27.0-32.0 [facility] Mean corpuscular hemoglobin concentration (MCHC) determinationOrdered By: Balwinder Alves on 12-26-2024 MCHC (RBC) [Mass/Vol] 30.6 g/dL Low 32-[address] [facility] Mean platelet volume determi nationOrdered By: Balwinder Alves on 12-26-2024 Platelet mean volume (Bld) [Entitic vol] 8.6 fL 6.2-12.0 [facility] Monocyte percentageOrdered B y: Balwinder Alves on 12-26-2024 Monocytes/100 WBC (Bld) 6.3 % 0-10 [facility] Neutrophil percentageOrdered By: Balwinder Alves on 12-26-2024 Neutrophils/100 WBC (Bld) 64.7 % 47-70 [facility] Nucleated red blood cell per centageOrdered By: Balwinder Alves on 12-26-2024 Nucleated RBC/100 WBC (Bld) [Ratio] 0 % 0-5 [facility] Platelet countOrdered By: Jen Alves on 12-26-2024 Platelets (Bld) [#/Vol] 221 10*3/uL 150-450 [facility] Potassium (Unsp spec) [Mass/ Vol]Ordered By: Balwinder Alves on 12-26-2024 Potassium [Moles/Vol] 4.6 mmol/L 3.3-5.[address] [facility] Potassium measurement (mass/ volume)Ordered By: Balwinder Alves on 12-26-2024 Potassium (Unsp spec) [Mass/Vol] 4.6 mmol/L 3.3-5.1 [facility] RBC Auto (Bld) [#/Vol]Ordere d By: Balwinder Alves on 12-26-2024 RBC (Bld) [#/Vol] 3.79 10*6/uL Low 4.2-5.4 [facility] Serum creatinine measurement (mass/volume)Ordered By: Balwinder Alves on 12-26-2024 Creatinine [Mass/Vol] 0.67 mg/dL Low 0.70-1.[address] [facility] Serum glucose measurement (m ass/volume)Ordered By: Balwinder Alves on 12-26-2024 Glucose [Mass/Vol] 215 mg/dL High 70-99 [facility] Serum or plasma calcium jacqueline urement (mass/volume)Ordered By: Balwinder Alves on 12-26-2024 Calcium [Mass/Vol] 9.1 mg/dL 7.6-11.0 [facility] Serum or plasma urea nitroge n measurement (mass/volume)Ordered By: Balwinder Alves on 12-26-2024 Urea nitrogen [Mass/Vol] 8 mg/dL 4-19 [facility] Sodium levelOrdered By: Balwinder Alves on 12-26-2024 Sodium [Moles/Vol] 137 mmol/L 133-145 [facility] White blood cell (WBC) count Ordered By: Balwinder Alves on 12-26-2024 WBC (Bld) [#/Vol] 7.1 10*3/uL 4.4-11.0 [facility] Anion gap in Serum or Plasma Ordered By: Balwinder Alves on 12-16-2024 Anion gap [Moles/Vol] 12 mmol/L - [facility] BUN/creatinine ratioOrdered By: Balwinder Alves on 12-16-2024 Urea nitrogen/Creatinine [Mass ratio] 12.7 mg/mg 07-24 [facility] Basic Metabolic Profile (BMP )on 12-16-2024 BUN/CRE 12.7 RATIO Normal 07-24 [facility] Comment on above: Performed By: #### L 100.0500, L500.2500 #### [facility] [address] [place], [address] Calcium [Mass/Vol] 9.5 mg/dL Normal 7.6-11.0 [facility] Comment on above: Performed By: #### L 100.0500, L500.2500 #### [facility] [address] [place], [address] Chloride [Moles/Vol] 98 mmol/L Normal 98-108 [facility] Comment on above: Performed By: #### L 100.0500, L500.2500 #### [facility] [address] [place], [address] CO2 [Moles/Vol] 26.7 mmol/L Normal 21.0-32.0 [facility] Comment on above: Performed By: #### L 100.0500, L500.2500 #### [facility] [address] [place], [address] Creatinine [Mass/Vol] 0.67 mg/dL Low 0.70-1.[address] [facility] Comment on above: Performed By: #### L 100.0500, L500.2500 #### [facility] [address] [place], [address] GAP 12 Normal 5-15 [facility] Comment on above: Performed By: #### L 100.0500, L500.2500 #### [facility] [address] [place], [address] GFR/1.73 sq M.predicted among non-blacks MDRD (S/P/Bld) [Vol rate/Area] 88 mL/min/{1.73_m2} Normal >60 [facility] Comment on above: Result Comment: mL/m in/1.73m2 CKD-EPI Creatinine Equation (2020) Performed By: #### L 100.0500, L500.2500 #### [facility] [address] [place], [address] Glucose [Mass/Vol] 201 mg/dL High 70-99 [facility] Comment on above: Performed By: #### L 100.0500, L500.2500 #### [facility] [address] [place], [address] Potassium [Moles/Vol] 4.6 mmol/L Normal 3.3-5.[address] [facility] Comment on above: Performed By: #### L 100.0500, L500.2500 #### [facility] [address] [place], [address] Sodium [Moles/Vol] 137 mmol/L Normal 133-145 [facility] Comment on above: Performed By: #### L 100.0500, L500.2500 #### [facility] [address] [place], [address] Urea nitrogen [Mass/Vol] 8 mg/dL Normal 4-19 [facility] Comment on above: Performed By: #### L 100.0500, L500.2500 #### [facility] [address] [place], [address] CBC-Complete Blood Cnt No Di ffon 12-16-2024 Erythrocyte distribution width (RBC) [Ratio] 13.8 % Normal 11.6-14.6 [facility] Comment on above: Performed By: #### L 100.0500, L500.2500 #### [facility] [address] [place], [address] Hematocrit (Bld) [Volume fraction] 36.2 % Low 37-47 [facility] Comment on above: Performed By: #### L 100.0500, L500.2500 #### [facility] [address] [place], [address] Hemoglobin (Bld) [Mass/Vol] 11.0 g/dL Low 12.0-15.0 [facility] Comment on above: Performed By: #### L 100.0500, L500.2500 #### [facility] [address] [place], [address] MCH (RBC) [Entitic mass] 28.2 pg Normal 27.0-32.0 [facility] Comment on above: Performed By: #### L 100.0500, L500.2500 #### [facility] [address] [place], [address] MCHC (RBC) [Mass/Vol] 30.4 g/dL Low 32-[address] [facility] Comment on above: Performed By: #### L 100.0500, L500.2500 #### [facility] [address] [place], [address] MCV (RBC) [Entitic vol] 92.8 fL Normal 81-99 [facility] Comment on above: Performed By: #### L 100.0500, L500.2500 #### [facility] [address] [place], [address] Platelet mean volume (Bld) [Entitic vol] 8.4 fL Normal 6.2-12.0 [facility] Comment on above: Performed By: #### L 100.0500, L500.2500 #### [facility] [address] [place], [address] Platelets (Bld) [#/Vol] 231 10*3/uL Normal 150-450 [facility] Comment on above: Performed By: #### L 100.0500, L500.2500 #### [facility] [address] [place], [address] RBC (Bld) [#/Vol] 3.90 10*6/uL Low 4.2-5.4 [facility] Comment on above: Performed By: #### L 100.0500, L500.2500 #### [facility] [address] [place], [address] RDW SD 47.0 fl High 35.1-43.9 [facility] Comment on above: Performed By: #### L 100.0500, L500.2500 #### [facility] [address] [place], [address] WBC (Bld) [#/Vol] 7.8 10*3/uL Normal 4.4-11.0 [facility] Comment on above: Performed By: #### L 100.0500, L500.2500 #### [facility] [address] [place], [address] Calculated very low density lipoprotein (VLDL) cholesterol measurementOrdered By: Balwinder Alves on 12-16-2024 Calculated very low density lipoprotein (VLDL) cholesterol measurement 32 mg/dL 5-40 [facility] VLDL Cholesterol 32 mg/dL 5-40 [facility] Carbon dioxide, total [Moles /volume] in Central venous bloodOrdered By: Balwinder Alves on 12-16-2024 CO2 [Moles/Vol] 26.7 mmol/L 21.0-32.0 [facility] Chloride assayOrdered By: Jen Alves on 12-16-2024 Chloride [Moles/Vol] 98 mmol/L 98-108 [facility] Erythrocyte distribution wid th (RBC) [Ratio]Ordered By: Balwinder Alves on 12-16-2024 Erythrocyte distribution width (RBC) [Entitic vol] 47.0 fL High 35.1-43.9 [facility] Erythrocyte distribution wid th ratioOrdered By: Balwinder Alves on 12-16-2024 Erythrocyte distribution width (RBC) [Ratio] 13.8 % 11.6-14.6 [facility] Erythrocyte distribution wid th standard deviationOrdered By: Balwinder Alves on 12-16-2024 Erythrocyte distribution width (RBC) [Ratio] 47.0 fl High 35.1-43.9 [facility] GFR/1.73 sq M.predicted philipp g non-blacks MDRD (S/P/Bld) [Vol rate/Area]Ordered By: Balwinder Alves on 12-16-2024 Estimated GFR (MDRD) Non-Af Amer 88 >60 [facility] Comment on above: mL/min/1.73m2 CKD-EP I Creatinine Equation (2020) Glomerular filtration rate ( GFR) estimation/1.73 sq m using serum, plasma, or whole bOrdered By: Balwinder Alves on 12-16-2024 GFR/1.73 sq M.predicted among non-blacks MDRD (S/P/Bld) [Vol rate/Area] 88 mL/min/{1.73_m2} >60 [facility] Comment on above: mL/min/1.73m2 CKD-EP I Creatinine Equation (2020) Hematocrit Auto (Bld) [Volum e fraction]Ordered By: Balwinder Alves on 12-16-2024 Hematocrit (Bld) [Volume fraction] 36.2 % Low 37-47 [facility] Hemoglobin A1con 12-16-2024 HbA1c (Bld) [Mass fraction] 8.4 % Normal <=5.6 [facility] Comment on above: Performed By: #### L 100.0500, L500.2500 #### [facility] [address] [place], [place], [address] Hemoglobin A1c percentageOrd ered By: Balwinder Alves on 12-16-2024 HbA1c (Bld) [Mass fraction] 8.4 % >5.7 [facility] Hemoglobin measurementOrdere d By: Balwinder Alves on 12-16-2024 Hemoglobin (Bld) [Mass/Vol] 11.0 g/dL Low 12.0-15.0 [facility] L506.1001on 12-16-2024 Vitamin D 25-OH 31.6 ng/mL Normal 30-100 [facility] Comment on above: Result Comment: Feli min D Status Deficiency: <20 ng/mL (50nmol/L) Insufficiency: 20-30 ng/mL (50-75 nmol/L) Sufficiency: 30-100 ng/mL (75-250 nmol/L) Toxicity: >100 ng/mL (>250 nmol/L) Performed By: #### L 100.0500, L500.2500 #### [facility] [address] [place], [place], [address] LDL calc ser/plasOrdered By: Balwinder Alves on 12-16-2024 Cholesterol in LDL [Mass/Vol] 22 mg/dL [facility] Comment on above: Vxufronrvn=308-403 m g/dL & Higher Subi=300 mg/dL or greater LDL Cholesterol, Calculated 22 mg/dL [facility] Comment on above: Viuujnltjv=577-715 m g/dL & Higher Qhba=331 mg/dL or greater Lipid Profileon 12-16-2024 CHOL:HDL 2.22 Normal [facility] Comment on above: Performed By: #### L 100.0500, L500.2500 #### [facility] [address] [place], [address] Cholesterol [Mass/Vol] 98 mg/dL Normal <=200 [facility] Comment on above: Result Comment: Chol esterol level, Desirable <200 mg/dL Borderline high cholesterol 200-239 mg/dL High cholesterol >=240 mg/dL Recommendations of the NCEP Adult Treatment Panel for the following risk-cutoff thresholds for the [place] population. Performed By: #### L 100.0500, L500.2500 #### [facility] [address] [place], [address] Cholesterol in HDL [Mass/Vol] 44 mg/dL Normal [facility] Comment on above: Result Comment: Matilde onal Cholesterol Education Program (NCEP) guidelines: <40 mg/dL: Low HDL-cholesterol (major risk factor for CHD) >= 60 mg/dL: High HDL-cholesterol (negative risk factor for CHD) HDL-cholesterol is affected by a number of factors, e.g. smoking, exercise, hormones, sex and age. Performed By: #### L 100.0500, L500.2500 #### [facility] [address] [place], [address] Cholesterol in LDL [Mass/Vol] 22 mg/dL Normal [facility] Comment on above: Result Comment: Bord qgdypr=924-653 mg/dL Higher Yypk=832 mg/dL or greater Performed By: #### L 100.0500, L500.2500 #### [facility] [address] [place], [address] Cholesterol in VLDL [Mass/Vol] 32 mg/dL Normal 5-40 [facility] Comment on above: Performed By: #### L 100.0500, L500.2500 #### [facility] [address] [place], [address] Triglyceride [Mass/Vol] 162 mg/dL Normal [facility] Comment on above: Result Comment: The drugs N-Acetylcysteine and Metamizole may falsely depress this assay. Normal range: <150 mg/dL Borderline High: 150-199 mg/dL High: 200-499 mg/dL Very High: >500 mg/dL Performed By: #### L 100.0500, L500.2500 #### [facility] [address] [place], [address] MCV (mean corpuscular volume ) determinationOrdered By: Balwinder Alves on 12-16-2024 MCV (RBC) [Entitic vol] 92.8 fL 81-99 [facility] Mean corpuscular hemoglobin (MCH) determinationOrdered By: Balwinder Alves on 12-16-2024 MCH (RBC) [Entitic mass] 28.2 pg 27.0-32.0 [facility] Mean corpuscular hemoglobin concentration (MCHC) determinationOrdered By: Balwinder Alves on 12-16-2024 MCHC (RBC) [Mass/Vol] 30.4 g/dL Low 32-[address] [facility] Mean platelet volume determi nationOrdered By: Balwinder Alves on 12-16-2024 Platelet mean volume (Bld) [Entitic vol] 8.4 fL 6.2-12.0 [facility] Platelet countOrdered By: Jen Alves on 12-16-2024 Platelets (Bld) [#/Vol] 231 10*3/uL 150-450 [facility] Potassium (Unsp spec) [Mass/ Vol]Ordered By: Balwinder Alves on 12-16-2024 Potassium [Moles/Vol] 4.6 mmol/L 3.3-5.[address] [facility] Potassium measurement (mass/ volume)Ordered By: Balwinder Alves on 12-16-2024 Potassium (Unsp spec) [Mass/Vol] 4.6 mmol/L 3.3-5.1 [facility] RBC Auto (Bld) [#/Vol]Ordere d By: Balwinder Alves on 12-16-2024 RBC (Bld) [#/Vol] 3.90 10*6/uL Low 4.2-5.4 [facility] Screening total cholesterol/ high density lipoprotein (HDL) cholesterol ratioOrdered By: Balwinder Alves on 12-16-2024 Cholesterol.total/Jany sterol in HDL [Mass ratio] 2.22 {ratio} [facility] Serum creatinine measurement (mass/volume)Ordered By: Balwinder Alves on 12-16-2024 Creatinine [Mass/Vol] 0.67 mg/dL Low 0.70-1.[address] [facility] Serum glucose measurement (m ass/volume)Ordered By: Balwinder Alves on 12-16-2024 Glucose [Mass/Vol] 201 mg/dL High 70-99 [facility] Serum or plasma calcium jacqueline urement (mass/volume)Ordered By: Balwinder Alves on 12-16-2024 Calcium [Mass/Vol] 9.5 mg/dL 7.6-11.0 [facility] Serum or plasma cholesterol in HDL measurement (mass/volume)Ordered By: Balwinder Alves on 12-16-2024 Cholesterol in HDL [Mass/Vol] 44 mg/dL >40 [facility] Comment on above: National Cholesterol Education Program (NCEP) guidelines:<40 mg/dL: Low HDL-cholesterol (major risk factor for CHD)>= 60 mg/dL: High HDL-cholesterol (negative risk factor for CHD)HDL-cholesterol is affected by a number of factors, e.g. smoking, exercise, hormones, sex and age. Serum or plasma cholesterol measurement (mass/volume)Ordered By: Balwinder Alves on 12-16-2024 Cholesterol [Mass/Vol] 98 mg/dL <[address] [facility] Comment on above: Cholesterol level, D esirable <200 mg/dLBorderline high cholesterol 200-239 mg/dLHigh cholesterol >=240 mg/dLRecommendations of the NCEP Adult Treatment Panel for the following risk-cutoff thresholds for the [place] population. Serum or plasma urea nitroge n measurement (mass/volume)Ordered By: Balwinder Alves on 12-16-2024 Urea nitrogen [Mass/Vol] 8 mg/dL 4-19 [facility] Sodium levelOrdered By: Balwinder Alves on 12-16-2024 Sodium [Moles/Vol] 137 mmol/L 133-145 [facility] Triglycerides measurementOrd ered By: Balwinder Alves on 12-16-2024 Triglyceride [Mass/Vol] 162 mg/dL <199 [facility] Comment on above: The drugs N-Acetylcy steine and Metamizole may falsely depress this assay. Normal range: <150 mg/dLBorderline High: 150-199 mg/dLHigh: 200-499 mg/dLVery High: >500 mg/dL Vitamin D, 25-hydroxyOrdered By: Balwinder Alves on 12-16-2024 Vitamin D 25-Hydroxy 31.6 ng/mL 30-100 [facility] Comment on above: Vitamin D StatusDefi ciency: <20 ng/mL (50nmol/L)Insufficiency: 20-30 ng/mL (50-75 nmol/L)Sufficiency: 30-100 ng/mL (75-250 nmol/L)Toxicity: >100 ng/mL (>250 nmol/L) White blood cell (WBC) count Ordered By: Balwinder Alves on 12-16-2024 WBC (Bld) [#/Vol] 7.8 10*3/uL 4.4-11.0 [facility] Absolute lymphocyte countOrd ered By: Balwinder Alves on 12-14-2024 Lymphocytes Auto (Unsp spec) [#/Vol] 1.93 10*3/uL 0.83-4.51 [facility] Absolute neutrophil countOrd ered By: Balwinder Alves on 12-14-2024 Neutrophils (Bld) [#/Vol] 4.0 10*3/uL 2.0-7.7 [facility] Anion gap in Serum or Plasma Ordered By: Balwinder Alves on 12-14-2024 Anion gap [Moles/Vol] 11 mmol/L 5-[address] [facility] Automated lymphocyte count a s percentage of total leukocytesOrdered By: Balwinder Alves on 12-14-2024 Lymphocytes/100 WBC Auto (Unsp spec) 28.7 % - [facility] BUN/creatinine ratioOrdered By: Balwinder Alves on 12-14-2024 Urea nitrogen/Creatinine [Mass ratio] 10.3 mg/mg 07-24 [facility] Basic Metabolic Profile (BMP )on 12-14-2024 BUN/CRE 10.3 RATIO Normal 07-24 [facility] Comment on above: Order Comment: 102.2 Performed By: #### L 100.0500, L500.2500 #### [facility] [place], [address] Calcium [Mass/Vol] 9.2 mg/dL Normal 7.6-11.0 [facility] Comment on above: Order Comment: 102.2 Performed By: #### L 100.0500, L500.2500 #### [facility] [address] [place], [address] Chloride [Moles/Vol] 101 mmol/L Normal 98-108 [facility] Comment on above: Order Comment: 102.2 Performed By: #### L 100.0500, L500.2500 #### [facility] [address] [place], [address] CO2 [Moles/Vol] 27.6 mmol/L Normal 21.0-32.0 [facility] Comment on above: Order Comment: 102.2 Performed By: #### L 100.0500, L500.2500 #### [facility] [address] [place], [address] Creatinine [Mass/Vol] 0.68 mg/dL Low 0.70-1.[address] [facility] Comment on above: Order Comment: 102.2 Performed By: #### L 100.0500, L500.2500 #### [facility] [address] [place], [address] GAP 11 Normal 5-15 [facility] Comment on above: Order Comment: 102.2 Performed By: #### L 100.0500, L500.2500 #### [facility] [address] [place], [address] GFR/1.73 sq M.predicted among non-blacks MDRD (S/P/Bld) [Vol rate/Area] 88 mL/min/{1.73_m2} Normal >60 [facility] Comment on above: Order Comment: 102.2 Result Comment: mL/m in/1.73m2 CKD-EPI Creatinine Equation (2020) Performed By: #### L 100.0500, L500.2500 #### [facility] [address] [place], [address] Glucose [Mass/Vol] 177 mg/dL High 70-99 [facility] Comment on above: Order Comment: 102.2 Performed By: #### L 100.0500, L500.2500 #### [facility] [address] [place], [address] Potassium [Moles/Vol] 4.3 mmol/L Normal 3.3-5.[address] [facility] Comment on above: Order Comment: 102.2 Performed By: #### L 100.0500, L500.2500 #### [facility] [address] [place], [address] Sodium [Moles/Vol] 139 mmol/L Normal 133-145 [facility] Comment on above: Order Comment: 102.2 Performed By: #### L 100.0500, L500.2500 #### [facility] [address] [place], [address] Urea nitrogen [Mass/Vol] 7 mg/dL Normal 4-19 [facility] Comment on above: Order Comment: 102.2 Performed By: #### L 100.0500, L500.2500 #### [facility] [address] [place], [address] Basophil percentageOrdered B y: Balwinder Alves on 12-14-2024 Basophils/100 WBC (Bld) 0.3 % 0-1 [facility] CBC W/Diff, Automatedon 12-03 Absolute Lymph 1.93 X10 3/uL Normal 0.83-4.51 [facility] Comment on above: Order Comment: 102.2 Performed By: #### M 100.2200, L400.2010 #### [facility] [address] [place], [address] Absolute Neut 4.0 X10 3/uL Normal 2.0-7.7 [facility] Comment on above: Order Comment: 102.2 Performed By: #### M 100.2199, .2010 #### [facility] [address] [place], [address] Basophils/100 WBC (Bld) 0.3 % Normal 0-1 [facility] Comment on above: Order Comment: 102.2 Performed By: #### M 100.2199, .2010 #### [facility] [address] [place], [address] Eosinophils/100 WBC (Bld) 3.1 % Normal 0-5 [facility] Comment on above: Order Comment: 102.2 Performed By: #### M , #### [facility] [address] [place], [address] Erythrocyte distribution width (RBC) [Ratio] 13.6 % Normal 11.6-14.6 [facility] Comment on above: Order Comment: 102.2 Performed By: #### M , #### [facility] [address] [place], [address] Hematocrit (Bld) [Volume fraction] 35.6 % Low 37-47 [facility] Comment on above: Order Comment: 102.2 Performed By: #### M , #### [facility] [address] [place], [address] Hemoglobin (Bld) [Mass/Vol] 10.9 g/dL Low 12.0-15.0 [facility] Comment on above: Order Comment: 102.2 Performed By: #### M 100, #### [facility] [address] [place], [address] IG% 1.000 High 0.0-0.9 [facility] Comment on above: Order Comment: 102.2 Result Comment: IG% - Immature Granulocytes (promyelocytes, myelocytes and metamyelocytes) > 1% indicates that a LEFT SHIFT is Present. Performed By: #### M 100.2199, L4.2010 #### [facility] [address] [place], [address] Lymphocytes/100 WBC (Bld) 28.7 % Normal 19-41 [facility] Comment on above: Order Comment: 102.2 Performed By: #### M , .2010 #### [facility] [address] [place], [address] MCH (RBC) [Entitic mass] 28.2 pg Normal 27.0-32.0 [facility] Comment on above: Order Comment: 102.2 Performed By: #### M , .2010 #### [facility] [address] [place], [address] MCHC (RBC) [Mass/Vol] 30.6 g/dL Low 32-[address] [facility] Comment on above: Order Comment: 102.2 Performed By: #### M , L4.2010 #### [facility] [address] [place], [address] MCV (RBC) [Entitic vol] 92.0 fL Normal 81-99 [facility] Comment on above: Order Comment: 102.2 Performed By: #### M , L4 #### [facility] [address] [place], [address] Monocytes/100 WBC (Bld) 6.8 % Normal 0-10 [facility] Comment on above: Order Comment: 102.2 Performed By: #### M , L4 #### [facility] [address] [place], [address] Neutrophils/100 WBC (Bld) 60.1 % Normal 47-70 [facility] Comment on above: Order Comment: 102.2 Performed By: #### M 100.2200, #### [facility] [address] [place], [address] Nucleated RBC (Bld) [#/Vol] 0 10*3/uL Normal 0-5 [facility] Comment on above: Order Comment: 102.2 Performed By: #### M , .2010 #### [facility] [address] [place], [address] Platelet mean volume (Bld) [Entitic vol] 8.5 fL Normal 6.2-12.0 [facility] Comment on above: Order Comment: 102.2 Performed By: #### M , #### [facility] [address] [place], [address] Platelets (Bld) [#/Vol] 213 10*3/uL Normal 150-450 [facility] Comment on above: Order Comment: 102.2 Performed By: #### M , #### [facility] [address] [place], [address] RBC (Bld) [#/Vol] 3.87 10*6/uL Low 4.2-5.4 [facility] Comment on above: Order Comment: 102.2 Performed By: #### M , #### [facility] [address] [place], [address] RDW SD 46.1 fl High 35.1-43.9 [facility] Comment on above: Order Comment: 102.2 Performed By: #### M , #### [facility] [address] [place], [address] WBC (Bld) [#/Vol] 6.7 10*3/uL Normal 4.4-11.0 [facility] Comment on above: Order Comment: 102.2 Performed By: #### M 100.2200, L400.2010 #### [facility] [address] [place], [address] Calculated very low density lipoprotein (VLDL) cholesterol measurementOrdered By: Balwinder Alves on 12-14-2024 Calculated very low density lipoprotein (VLDL) cholesterol measurement 29 mg/dL 5-40 [facility] VLDL Cholesterol 29 mg/dL 5-40 [facility] Carbon dioxide, total [Moles /volume] in Central venous bloodOrdered By: Balwinder Alves on 12-14-2024 CO2 [Moles/Vol] 27.6 mmol/L 21.0-32.0 [facility] Chloride assayOrdered By: Jen Alves on 12-14-2024 Chloride [Moles/Vol] 101 mmol/L 98-108 [facility] Eosinophil percentageOrdered By: Balwinder Alves on 12-14-2024 Eosinophils/100 WBC (Bld) 3.1 % 0-5 [facility] Erythrocyte distribution wid th (RBC) [Ratio]Ordered By: Balwinder Alves on 12-14-2024 Erythrocyte distribution width (RBC) [Entitic vol] 46.1 fL High 35.1-43.9 [facility] Erythrocyte distribution wid th ratioOrdered By: Balwinder Alves on 12-14-2024 Erythrocyte distribution width (RBC) [Ratio] 13.6 % 11.6-14.6 [facility] Erythrocyte distribution wid th standard deviationOrdered By: Balwinder Alves on 12-14-2024 Erythrocyte distribution width (RBC) [Ratio] 46.1 fl High 35.1-43.9 [facility] GFR/1.73 sq M.predicted philipp g non-blacks MDRD (S/P/Bld) [Vol rate/Area]Ordered By: Balwinder Alves on 12-14-2024 Estimated GFR (MDRD) Non-Af Amer 88 >60 [facility] Comment on above: mL/min/1.73m2 CKD-EP I Creatinine Equation (2020) Glomerular filtration rate ( GFR) estimation/1.73 sq m using serum, plasma, or whole bOrdered By: Balwinder Alves on 12-14-2024 GFR/1.73 sq M.predicted among non-blacks MDRD (S/P/Bld) [Vol rate/Area] 88 mL/min/{1.73_m2} >60 [facility] Comment on above: mL/min/1.73m2 CKD-EP I Creatinine Equation (2020) Hematocrit Auto (Bld) [Volum e fraction]Ordered By: Balwinder Alves on 12-14-2024 Hematocrit (Bld) [Volume fraction] 35.6 % Low 37-47 [facility] Hemoglobin A1con 12-14-2024 HbA1c (Bld) [Mass fraction] 8.6 % Normal <=5.6 [facility] Comment on above: Order Comment: 102.2 Performed By: #### L 100.0500, L500.2500 #### [facility] [address] [place], [place], [id number] Hemoglobin A1c percentageOrd ered By: Balwinder Alves on 12-14-2024 HbA1c (Bld) [Mass fraction] 8.6 % >5.7 [facility] Hemoglobin measurementOrdere d By: Balwinder Alves on 12-14-2024 Hemoglobin (Bld) [Mass/Vol] 10.9 g/dL Low 12.0-15.0 [facility] Immature granulocytes/100 WB C Auto (Bld)Ordered By: Balwinder Alves on 12-14-2024 Immature granulocytes/100 WBC (Bld) 1.000 % High 0.0-0.9 [facility] Comment on above: IG% - Immature Granu locytes (promyelocytes, myelocytes and metamyelocytes) > 1% indicates that a LEFT SHIFT is Present. L506.1001on 12-14-2024 Vitamin D 25-OH 31.2 ng/mL Normal 30-100 [facility] Comment on above: Order Comment: 102.2 Result Comment: Feli min D Status Deficiency: <20 ng/mL (50nmol/L) Insufficiency: 20-30 ng/mL (50-75 nmol/L) Sufficiency: 30-100 ng/mL (75-250 nmol/L) Toxicity: >100 ng/mL (>250 nmol/L) Performed By: #### L 100.0500, L500.2500 #### [facility] [address] [place], [place], [address] LDL calc ser/plasOrdered By: Balwinder Alves on 12-14-2024 Cholesterol in LDL [Mass/Vol] 22 mg/dL [facility] Comment on above: Sllaatqzqy=186-380 m g/dL & Higher Xdld=355 mg/dL or greater LDL Cholesterol, Calculated 22 mg/dL [facility] Comment on above: Taxgtedtdu=072-149 m g/dL & Higher Asui=476 mg/dL or greater Lipid Profileon 12-14-2024 CHOL:HDL 2.29 Normal [facility] Comment on above: Order Comment: 102.2 Performed By: #### L 100.0500, L500.2500 #### [facility] [address] [place], [place], [address] Cholesterol [Mass/Vol] 91 mg/dL Normal <=200 [facility] Comment on above: Order Comment: 102.2 Result Comment: Chol esterol level, Desirable <200 mg/dL Borderline high cholesterol 200-239 mg/dL High cholesterol >=240 mg/dL Recommendations of the NCEP Adult Treatment Panel for the following risk-cutoff thresholds for the [place] population. Performed By: #### L 100.0500, L500.2500 #### [facility] [address] [place], [place], [address] Cholesterol in HDL [Mass/Vol] 40 mg/dL Normal [facility] Comment on above: Order Comment: 102.2 Result Comment: Matilde onal Cholesterol Education Program (NCEP) guidelines: <40 mg/dL: Low HDL-cholesterol (major risk factor for CHD) >= 60 mg/dL: High HDL-cholesterol (negative risk factor for CHD) HDL-cholesterol is affected by a number of factors, e.g. smoking, exercise, hormones, sex and age. Performed By: #### L 100.0500, L500.2500 #### [facility] [address] [place], [place], [address] Cholesterol in LDL [Mass/Vol] 22 mg/dL Normal [facility] Comment on above: Order Comment: 102.2 Result Comment: Bord yjzxsy=189-866 mg/dL Higher Mudg=691 mg/dL or greater Performed By: #### L 100.0500, L500.2500 #### [facility] [address] [place], [address] Cholesterol in VLDL [Mass/Vol] 29 mg/dL Normal 5-40 [facility] Comment on above: Order Comment: 102.2 Performed By: #### L 100.0500, L500.2500 #### [facility] [address] [place], [address] Triglyceride [Mass/Vol] 146 mg/dL Normal [facility] Comment on above: Order Comment: 102.2 Result Comment: The drugs N-Acetylcysteine and Metamizole may falsely depress this assay. Normal range: <150 mg/dL Borderline High: 150-199 mg/dL High: 200-499 mg/dL Very High: >500 mg/dL Performed By: #### L 100.0500, L500.2500 #### [facility] [address] [place], [address] Lymphocytes Auto (Unsp spec) [#/Vol]Ordered By: Balwinder Alves on 12-14-2024 Lymphocytes (Bld) [#/Vol] 1.93 10*3/uL 0.83-4.51 [facility] Lymphocytes/100 WBC Auto (Un sp spec)Ordered By: Balwinder Alves on 12-14-2024 Lymphocytes/100 WBC (Bld) 28.7 % 19-41 [facility] MCV (mean corpuscular volume ) determinationOrdered By: Balwinder Alves on 12-14-2024 MCV (RBC) [Entitic vol] 92.0 fL 81-99 [facility] Mean corpuscular hemoglobin (MCH) determinationOrdered By: Balwinder Alvse on 12-14-2024 MCH (RBC) [Entitic mass] 28.2 pg 27.0-32.0 [facility] Mean corpuscular hemoglobin concentration (MCHC) determinationOrdered By: Balwinder Alves on 12-14-2024 MCHC (RBC) [Mass/Vol] 30.6 g/dL Low 32-[address] [facility] Mean platelet volume determi nationOrdered By: Balwinder Alves on 12-14-2024 Platelet mean volume (Bld) [Entitic vol] 8.5 fL 6.2-12.0 [facility] Monocyte percentageOrdered B y: Balwinder Alves on 12-14-2024 Monocytes/100 WBC (Bld) 6.8 % 0-10 [facility] Neutrophil percentageOrdered By: Balwinder Alves on 12-14-2024 Neutrophils/100 WBC (Bld) 60.1 % 47-70 [facility] Nucleated red blood cell per centageOrdered By: Balwinder Alves on 12-14-2024 Nucleated RBC/100 WBC (Bld) [Ratio] 0 % 0-5 [facility] Platelet countOrdered By: Jen Alves on 12-14-2024 Platelets (Bld) [#/Vol] 213 10*3/uL 150-450 [facility] Potassium (Unsp spec) [Mass/ Vol]Ordered By: Balwinder Alves on 12-14-2024 Potassium [Moles/Vol] 4.3 mmol/L 3.3-5.[address] [facility] Potassium measurement (mass/ volume)Ordered By: Balwinder Alves on 12-14-2024 Potassium (Unsp spec) [Mass/Vol] 4.3 mmol/L 3.3-5.1 [facility] RBC Auto (Bld) [#/Vol]Ordere d By: Balwinder Alves on 12-14-2024 RBC (Bld) [#/Vol] 3.87 10*6/uL Low 4.2-5.4 [facility] Screening total cholesterol/ high density lipoprotein (HDL) cholesterol ratioOrdered By: Balwinder Alves on 12-14-2024 Cholesterol.total/Jany sterol in HDL [Mass ratio] 2.29 {ratio} [facility] Serum creatinine measurement (mass/volume)Ordered By: Balwinder Alves on 12-14-2024 Creatinine [Mass/Vol] 0.68 mg/dL Low 0.70-1.[address] [facility] Serum glucose measurement (m ass/volume)Ordered By: Balwinder Alves on 12-14-2024 Glucose [Mass/Vol] 177 mg/dL High 70-99 [facility] Serum or plasma calcium jacqueline urement (mass/volume)Ordered By: Balwinder Alves on 2025 Calcium [Mass/Vol] 9.2 mg/dL 7.6-11.0 [facility] Serum or plasma cholesterol in HDL measurement (mass/volume)Ordered By: Balwinder Alves on 12-14-2024 Cholesterol in HDL [Mass/Vol] 40 mg/dL >40 [facility] Comment on above: National Cholesterol Education Program (NCEP) guidelines:<40 mg/dL: Low HDL-cholesterol (major risk factor for CHD)>= 60 mg/dL: High HDL-cholesterol (negative risk factor for CHD)HDL-cholesterol is affected by a number of factors, e.g. smoking, exercise, hormones, sex and age. Serum or plasma cholesterol measurement (mass/volume)Ordered By: Balwinder Alves on 12-14-2024 Cholesterol [Mass/Vol] 91 mg/dL <201 [facility] Comment on above: Cholesterol level, D esirable <200 mg/dLBorderline high cholesterol 200-239 mg/dLHigh cholesterol >=240 mg/dLRecommendations of the NCEP Adult Treatment Panel for the following risk-cutoff thresholds for the [place] population. Serum or plasma urea nitroge n measurement (mass/volume)Ordered By: Balwinder Alves on 12-14-2024 Urea nitrogen [Mass/Vol] 7 mg/dL 4-19 [facility] Sodium levelOrdered By: Balwinder Alves on 12-14-2024 Sodium [Moles/Vol] 139 mmol/L 133-145 [facility] Triglycerides measurementOrd ered By: Balwinder Alves on 12-14-2024 Triglyceride [Mass/Vol] 146 mg/dL <199 [facility] Comment on above: The drugs N-Acetylcy steine and Metamizole may falsely depress this assay. Normal range: <150 mg/dLBorderline High: 150-199 mg/dLHigh: 200-499 mg/dLVery High: >500 mg/dL Vitamin D, 25-hydroxyOrdered By: Balwinder Alves on 12-14-2024 Vitamin D 25-Hydroxy 31.2 ng/mL 30-100 [facility] Comment on above: Vitamin D StatusDefi ciency: <20 ng/mL (50nmol/L)Insufficiency: 20-30 ng/mL (50-75 nmol/L)Sufficiency: 30-100 ng/mL (75-250 nmol/L)Toxicity: >100 ng/mL (>250 nmol/L) White blood cell (WBC) count Ordered By: Balwinder Alves on 12-14-2024 WBC (Bld) [#/Vol] 6.7 10*3/uL 4.4-11.0 [facility] Urine Cultureon 10-17-2024 URC Copy of report sent to Infection Control Printer [id number] 10/17/24 1000 VSICK. Urine Culture Urine Culture Urine Culture ESBL Escherichia coli [place] Count 80,000-100,000 MARKER ESBL producing OrganismA MARKER ESBL producing OrganismA [place] Count 80,000-100,000 Proteus mirabilis Ampicillin Islt PREM [...] TMP SMX Islt PREM <=20 S Normal [facility] Comment on above: Performed By: #### M 100.2200, L400.2010 #### [facility] [address] [place], [place], [id number] Urinalysis, Routine (Dipstic k)on 10-11-2024 BILIRUBIN URINE Negative Normal Negative [facility] Comment on above: Order Comment: CLEAN CATCH Performed By: #### M , #### [facility] [address] [place], [address] Clarity (U) Sl. Cloudy Normal Clear [facility] Comment on above: Order Comment: CLEAN CATCH Performed By: #### M #### [facility] [address] [place], [address] Color (U) Yellow Normal Yellow [facility] Comment on above: Order Comment: CLEAN CATCH Performed By: #### M #### [facility] [address] [place], [address] GLUCOSE, UR Normal Normal Normal [facility] Comment on above: Order Comment: CLEAN CATCH Performed By: #### M #### [facility] [address] [place], [address] KETONE UR Negative Normal Negative [facility] Comment on above: Order Comment: CLEAN CATCH Performed By: #### M #### [facility] [address] [place], [address] LEUK ESTERASE 500 /ul Abnormal Negative [facility] Comment on above: Order Comment: CLEAN CATCH Performed By: #### M #### [facility] [address] [place], [address] Nitrite Ql (U) Positive Abnormal Negative [facility] Comment on above: Order Comment: CLEAN CATCH Performed By: #### M #### [facility] [address] [place], [address] OCCULT BLOOD-UR 50 /ul Abnormal Negative [facility] Comment on above: Order Comment: CLEAN CATCH Performed By: #### M #### [facility] [address] [place], [address] pH UR 6.5 Normal 5.0 - 8.0 [facility] Comment on above: Order Comment: CLEAN CATCH Performed By: #### M 100.2200, L4.2010 #### [facility] [address] [place], [address] PROT DIPSTX 15 mg/dl Abnormal Negative [facility] Comment on above: Order Comment: CLEAN CATCH Performed By: #### M 100.2200, L400.2010 #### [facility] [address] [place], [address] SP.GR. DIPSTX 1.010 Normal 1.002-1.030 [facility] Comment on above: Order Comment: CLEAN CATCH Performed By: #### M 100.0, L4 #### [facility] [address] [place], [address] UROBILI Normal Normal Normal [facility] Comment on above: Order Comment: CLEAN CATCH Performed By: #### M 100.2199, L4.2010 #### [facility] [address] [place], [address] Bilirubin Test strip Ql (U)O rdered By: Balwinder Alves on 10-10-2024 Bilirubin Ql (U) Negative Negative [facility] Glucose Ql (U)Ordered By: Jen Alves on 10-10-2024 Urine Glucose (UA) Normal mg/dl Normal [facility] Ketones Test strip Ql (U)Ord ered By: Balwinder Alves on 10-10-2024 Ketones Ql (U) Negative Negative [facility] Nitrite Test strip Ql (U)Ord ered By: Balwinder Alves on 10-10-2024 Nitrite Ql (U) Positive High Negative [facility] Protein Test strip Ql (U)Ord ered By: Balwinder Alves on 10-10-2024 Protein Ql (U) 15 mg/dl High Negative [facility] Urine blood detectionOrdered By: Balwinder Alves on 10-10-2024 Urine Occult Blood 50 /ul High Negative [facility] Urine clarityOrdered By: Javed Alves on 10-10-2024 Clarity (U) Sl. Cloudy Clear [facility] Urine color determinationOrd ered By: Balwinder Alves on 10-10-2024 Color (U) Yellow Yellow [facility] Urine cultureOrdered By: Javed Alves on 10-10-2024 Bacteria identified Cx Nom (U) ESBL Escherichia coli Abnormal [facility] Bacteria identified Cx Nom (U) Proteus mirabilis Abnormal [facility] Urine leukocyte esterase det ection by dipstickOrdered By: Balwinder Alves on 10-10-2024 Leukocyte esterase Test strip Ql (U) 500 /ul High Negative [facility] Urine pHOrdered By: Balwinder blackman on 10-10-2024 pH (U) 6.5 [pH] 5.0 - 8.0 [facility] Urine specific gravity measu rementOrdered By: Balwinder Alves on 10-10-2024 Specific gravity (U) [Rel density] 1.010 1.002-1.030 [facility] Urobilinogen Ql (U)Ordered B y: Balwinder Alves on 10-10-2024 Urine Urobilinogen Normal mg/dl Normal [facility] Automated blood erythrocyte countOrdered By: Balwinder Alves on 09-14-2024 RBC (Bld) [#/Vol] 3.90 10*6/uL Low 4.2-5.4 [facility] Comment on above: Order Comment: 102.2 Performed By: #### L 100.0500, L500.2500 #### [facility] [address] [place], [place], [id number] Automated blood hematocrit ( percentage)Ordered By: Balwinder Alves on 09-14-2024 Hematocrit (Bld) [Volume fraction] 37.7 % Normal 37-47 [facility] Comment on above: Order Comment: 102.2 Performed By: #### L 100.0500, L500.2500 #### [facility] [address] [place], [address] Basic Metabolic Profile (BMP )on 12-11-2024 BUN/CRE 15.5 RATIO Normal 10- [facility] Comment on above: Order Comment: 102.2 Performed By: #### L 100.0500, L500.2500 #### [facility] [address] [place], [address] CA,Total 9.4 mg/dL Normal 8.5-10.1 [facility] Comment on above: Order Comment: 102.2 Performed By: #### L 100.0500, L500.2500 #### [facility] [address] [place], [address] EST GFR - AA 102 mL/min Normal >60 [facility] Comment on above: Order Comment: 102.2 Result Comment: Afri can [place] GFR Calc Performed By: #### L 100.0500, L500.2500 #### [facility] [address] [place], [address] GAP 3 Low 5-15 [facility] Comment on above: Order Comment: 102.2 Performed By: #### L 100.0500, L500.2500 #### [facility] [address] [place], [address] GFR/1.73 sq M.predicted among non-blacks MDRD (S/P/Bld) [Vol rate/Area] 84 mL/min/{1.73_m2} Normal >60 [facility] Comment on above: Order Comment: 102.2 Result Comment: Non- GFR Calc Performed By: #### L 100.0500, L500.2500 #### [facility] [address] [place], [address] Blood urea nitrogen (BUN)/cr eatinine ratioOrdered By: Balwinder Alves on 09-14-2024 Urea nitrogen/Creatinine [Mass ratio] 15.5 mg/mg 07-24 [facility] CBC-Complete Blood Cnt No Di ffon 09-14-2024 RDW SD 48.3 fl High 35.1-43.9 [facility] Comment on above: Order Comment: 102.2 Performed By: #### L 100.0500, L500.2500 #### [facility] [address] [place], [address] Carbon dioxide measurementOr dered By: Balwinder Alves on 09-14-2024 CO2 [Moles/Vol] 34.0 mmol/L High 21.0-32.0 [facility] Comment on above: Order Comment: 102.2 Performed By: #### L 100.0500, L500.2500 #### [facility] [address] [place], [address] Chloride measurementOrdered By: Balwinder Alves on 09-14-2024 Chloride [Moles/Vol] 103 mmol/L Normal 98-107 [facility] Comment on above: Order Comment: 102.2 Performed By: #### L 100.0500, L500.2500 #### [facility] [address] [place], [address] Erythrocyte distribution wid th (RBC) [Ratio]Ordered By: Balwinder Alves on 09-14-2024 Erythrocyte distribution width (RBC) [Entitic vol] 48.3 fL High 35.1-43.9 [facility] Erythrocyte distribution wid th ratioOrdered By: Balwinder Alves on 09-14-2024 Erythrocyte distribution width (RBC) [Ratio] 14.0 % Normal 11.6-14.6 [facility] Comment on above: Order Comment: 102.2 Performed By: #### L 100.0500, L500.2500 #### [facility] [address] [place], [address] Estimated glomerular filtrat ion rate (GFR) AmericanOrdered By: Balwinder Alves on 09-14-2024 Estimated GFR (MDRD) Amer 102 mL/min >60 [facility] Comment on above: GFR Calc Glomerular filtration rate ( GFR) estimationOrdered By: Balwinder Alves on 09-14-2024 Estimated GFR (MDRD) Non-Af Amer 84 mL/min >60 [facility] Comment on above: Non- GFR Calc Glucose measurementOrdered B y: Balwinder Alves on 09-14-2024 Glucose [Mass/Vol] 168 mg/dL High 74-106 [facility] Comment on above: Fasting Glucose resu lt greater than or equal to 126 mg/dL suggests DIABETES MELLITUS per A.D.A. criteria. Order Comment: 102.2 Result Comment: Fast ing Glucose result greater than or equal to 126 mg/dL suggests DIABETES MELLITUS per A.D.A. criteria. Performed By: #### L 100.0500, L500.2500 #### [facility] [address] [place], [address] Hemoglobin measurementOrdere d By: Balwinder Alves on 09-14-2024 Hemoglobin (Bld) [Mass/Vol] 11.1 g/dL Low 12.0-15.0 [facility] Comment on above: Order Comment: 102.2 Performed By: #### L 100.0500, L500.2500 #### [facility] [address] [place], [address] MCV (mean corpuscular volume ) determinationOrdered By: Balwinder Alves on 09-14-2024 MCV (RBC) [Entitic vol] 96.7 fL Normal 81-99 [facility] Comment on above: Order Comment: 102.2 Performed By: #### L 100.0500, L500.2500 #### [facility] [address] [place], [address] Mean corpuscular hemoglobin (MCH) determinationOrdered By: Balwinder Alves on 09-14-2024 MCH (RBC) [Entitic mass] 28.5 pg Normal 27.0-32.0 [facility] Comment on above: Order Comment: 102.2 Performed By: #### L 100.0500, L500.2500 #### [facility] [address] [place], [address] Mean corpuscular hemoglobin concentration (MCHC) determinationOrdered By: Balwinder Alves on 09-14-2024 MCHC (RBC) [Mass/Vol] 29.4 g/dL Low 32-[address] [facility] Comment on above: Order Comment: 102.2 Performed By: #### L 100.0500, L500.2500 #### [facility] [address] [place], [address] Mean platelet volume determi nationOrdered By: Balwinder Alves on 09-14-2024 Platelet mean volume (Bld) [Entitic vol] 8.2 fL Normal 6.2-12.0 [facility] Comment on above: Order Comment: 102.2 Performed By: #### L 100.0500, L500.2500 #### [facility] [address] [place], [address] Platelet countOrdered By: Jen Alves on 09-14-2024 Platelets (Bld) [#/Vol] 178 10*3/uL Normal 150-450 [facility] Comment on above: Order Comment: 102.2 Performed By: #### L 100.0500, L500.2500 #### [facility] [address] [place], [address] Potassium measurementOrdered By: Balwinder Alves on 09-14-2024 Potassium [Moles/Vol] 4.6 mmol/L Normal 3.5-5.[address] [facility] Comment on above: Order Comment: 102.2 Performed By: #### L 100.0500, L500.2500 #### [facility] [address] [place], [address] Serum anion gap measurementO rdered By: Balwinder Alves on 09-14-2024 Anion gap [Moles/Vol] 3 mmol/L Low 5-[address] [facility] Serum or plasma calcium jacqueline urement (mass/volume)Ordered By: Balwinder Alves on 09-14-2024 Calcium [Mass/Vol] 9.4 mg/dL 8.5-10.1 [facility] Serum or plasma creatinine m easurement (mass/volume)Ordered By: Balwinder Alves on 09-14-2024 Creatinine [Mass/Vol] 0.71 mg/dL Normal 0.55-1.[address] [facility] Comment on above: The validity of the calculated GFR & GFRAA in patients over 70 years has not been determined. Clinical correlation is essential. Order Comment: 102.2 Result Comment: The validity of the calculated GFR GFRAA in patients over 70 years has not been determined. Clinical correlation is essential. Performed By: #### L 100.0500, L500.2500 #### [facility] [address] [place], [address] Serum or plasma urea nitroge n measurement (mass/volume)Ordered By: Balwinder Alves on 09-14-2024 Urea nitrogen [Mass/Vol] 11 mg/dL Normal 7-18 [facility] Comment on above: Order Comment: 102.2 Performed By: #### L 100.0500, L500.2500 #### [facility] [address] [place], [address] Sodium levelOrdered By: Balwinder Alves on 09-14-2024 Sodium [Moles/Vol] 139 mmol/L Normal 136-145 [facility] Comment on above: Order Comment: 102.2 Performed By: #### L 100.0500, L500.2500 #### [facility] [address] [place], [address] White blood cell (WBC) count Ordered By: Balwinder Alves on 09-14-2024 WBC (Bld) [#/Vol] 5.6 10*3/uL Normal 4.4-11.0 [facility] Comment on above: Order Comment: 102.2 Performed By: #### L 100.0500, L500.2500 #### [facility] [address] [place], [address] Basic Metabolic Profile (BMP )on 06-14-2024 BUN/CRE 13.6 RATIO Normal 10-20 [facility] Comment on above: Order Comment: 102.2 Performed By: #### M 100.2200, L400.2010 #### [facility] [address] [place], [address] CA,Total 9.5 mg/dL Normal 8.5-10.1 [facility] Comment on above: Order Comment: 102.2 Performed By: #### M 100.2199, .2010 #### [facility] [address] [place], [address] Chloride [Moles/Vol] 101 mmol/L Normal 98-107 [facility] Comment on above: Order Comment: 102.2 Performed By: #### M .2199, .2010 #### [facility] [address] [place], [address] CO2 [Moles/Vol] 30.0 mmol/L Normal 21.0-32.0 [facility] Comment on above: Order Comment: 102.2 Performed By: #### M , #### [facility] [address] [place], [address] Creatinine [Mass/Vol] 0.74 mg/dL Normal 0.55-1.[address] [facility] Comment on above: Order Comment: 102.2 Result Comment: The validity of the calculated GFR GFRAA in patients over 70 years has not been determined. Clinical correlation is essential. Performed By: #### M .2199, #### [facility] [address] [place], [address] EST GFR - AA 98 mL/min Normal >60 [facility] Comment on above: Order Comment: 102.2 Result Comment: Afri can Guyanese GFR Calc Performed By: #### M 100.2199, #### [facility] [address] [place], [address] GAP 6 Normal 5-15 [facility] Comment on above: Order Comment: 102.2 Performed By: #### M 100.2200, #### [facility] [address] [place], [address] GFR/1.73 sq M.predicted among non-blacks MDRD (S/P/Bld) [Vol rate/Area] 81 mL/min/{1.73_m2} Normal >60 [facility] Comment on above: Order Comment: 102.2 Result Comment: Non- GFR Calc Performed By: #### M .2199, #### [facility] [address] [place], [address] Glucose [Mass/Vol] 157 mg/dL High 74-106 [facility] Comment on above: Order Comment: 102.2 Result Comment: Fast ing Glucose result greater than or equal to 126 mg/dL suggests DIABETES MELLITUS per A.D.A. criteria. Performed By: #### M , #### [facility] [address] [place], [address] Potassium [Moles/Vol] 4.1 mmol/L Normal 3.5-5.[address] [facility] Comment on above: Order Comment: 102.2 Performed By: #### M , #### [facility] [address] [place], [address] Sodium [Moles/Vol] 137 mmol/L Normal 136-145 [facility] Comment on above: Order Comment: 102.2 Performed By: #### M , #### [facility] [address] [place], [address] Urea nitrogen [Mass/Vol] 10 mg/dL Normal 7-18 [facility] Comment on above: Order Comment: 102.2 Performed By: #### M , #### [facility] [address] [place], [address] CBC-Complete Blood Cnt No Di ffon 06-14-2024 Erythrocyte distribution width (RBC) [Ratio] 14.5 % Normal 11.6-14.6 [facility] Comment on above: Order Comment: 102.2 Performed By: #### M , .2010 #### [facility] [address] [place], [address] Hematocrit (Bld) [Volume fraction] 36.9 % Low 37-47 [facility] Comment on above: Order Comment: 102.2 Performed By: #### M , .2010 #### [facility] [address] [place], [address] Hemoglobin (Bld) [Mass/Vol] 11.1 g/dL Low 12.0-15.0 [facility] Comment on above: Order Comment: 102.2 Performed By: #### M , #### [facility] [address] [place], [address] MCH (RBC) [Entitic mass] 28.6 pg Normal 27.0-32.0 [facility] Comment on above: Order Comment: 102.2 Performed By: #### M , #### [facility] [address] [place], [address] MCHC (RBC) [Mass/Vol] 30.1 g/dL Low 32-[address] [facility] Comment on above: Order Comment: 102.2 Performed By: #### M , #### [facility] [address] [place], [address] MCV (RBC) [Entitic vol] 95.1 fL Normal 81-99 [facility] Comment on above: Order Comment: 102.2 Performed By: #### M , #### [facility] [address] [place], [address] Platelet mean volume (Bld) [Entitic vol] 8.7 fL Normal 6.2-12.0 [facility] Comment on above: Order Comment: 102.2 Performed By: #### M , #### [facility] [address] [place], [address] Platelets (Bld) [#/Vol] 165 10*3/uL Normal 150-450 [facility] Comment on above: Order Comment: 102.2 Performed By: #### M , #### [facility] [address] [place], [address] RBC (Bld) [#/Vol] 3.88 10*6/uL Low 4.2-5.4 [facility] Comment on above: Order Comment: 102.2 Performed By: #### M , #### [facility] [address] [place], [address] RDW SD 50.7 fl High 35.1-43.9 [facility] Comment on above: Order Comment: 102.2 Performed By: #### M , #### [facility] [address] [place], [address] WBC (Bld) [#/Vol] 5.4 10*3/uL Normal 4.4-11.0 [facility] Comment on above: Order Comment: 102.2 Performed By: #### M , #### [facility] [address] [place], [address] Hemoglobin A1con 06-14-2024 HbA1c (Bld) [Mass fraction] 6.7 % High 3.8-5.6 [facility] Comment on above: Order Comment: 102.2 Result Comment: Norm al < 5.7 % Prediabetic 5.7 - 6.4 % Diabetic >or= 6.5 % Please note range changes. Performed By: #### M , L4 #### [facility] [address] [place], [address] Lipid Profileon 06-14-2024 Cholesterol [Mass/Vol] 134 mg/dL Normal 200 [facility] Comment on above: Order Comment: 102.2 Result Comment: <200 mg/dL Desirable 200-240 mg/dL Borderline >240 mg/dL High Risk Performed By: #### M 100.2199, #### [facility] [address] [place], [address] Cholesterol in HDL [Mass/Vol] 66 mg/dL Normal [facility] Comment on above: Order Comment: 102.2 Result Comment: The drugs N-Acetylcysteine and Metamizole may falsely depress this assay. Reference Range HDL <40 mg/dL Low HDL Cholesterol HDL >or= 60 mg/dL High HDL Cholesterol Performed By: #### M , #### [facility] [address] [place], [address] Cholesterol in LDL [Mass/Vol] 43 mg/dL Normal 0-130 [facility] Comment on above: Order Comment: 102.2 Performed By: #### M , #### [facility] [address] [place], [address] Cholesterol in VLDL [Mass/Vol] 25 mg/dL Normal 5-40 [facility] Comment on above: Order Comment: 102.2 Performed By: #### M , #### [facility] [address] [place], [address] Triglyceride [Mass/Vol] 125 mg/dL Normal [facility] Comment on above: Order Comment: 102.2 Result Comment: The drugs N-Acetylcysteine and Metamizole may falsely depress this assay. Serum Triglycerides Reference Interval Normal <150 mg/dL Borderline high 150 - 199 mg/dL High 200 - 499 mg/dL Very High > or = 500 mg/dL Performed By: #### M , #### [facility] [address] [place], [place], [address] Vitamin D,25 Hydroxyon 06-14 Vitamin D 25-OH 38.8 ng/mL Normal [facility] Comment on above: Order Comment: 102.2 Result Comment: Feli min D 25(OH) Status Range Deficiency <20 ng/mL (50nmol/L) Insufficiency 20 - 30 ng/mL (50 - 75 nmol/L) Sufficiency 30 - 100 ng/mL (75 - 250 nmol/L) Toxicity >100 ng/mL (>250 nmol/L) Performed By: #### M 100.2200, L400.2010 #### [facility] [address] [place], [place], [address] Urine Cultureon 06-01-2024 [facility] RESULTS CALLED TO Castro GARCIA 05/31/24 Jolynn Patterson. REPORT READ BACK BY . ESBL Escherichia coli [place] Count >100,000 MARKER A ESBL producing Organism A ESBL Escherichia coli: REACTION Amikacin Islt PREM <=2 S Ampicillin Islt RPEM >=32 R Ampicillin+Sulbac Islt PREM >=32 R ceFAZolin Islt PREM >=64 R Cefepime Islt PREM >=32 R cefoTEtan Islt PREM <=4 S cefTRIAXone Islt PREM >=64 R Ciprofloxacin Islt PREM >=4 R Ertapenem Islt PREM <=0.12 S B-Lactamase Extended Susc Islt POS Gentamicin Islt PREM <=1 S Imipenem Islt PERM <=0.25 S levoFLOXacin Islt PREM >=8 R Meropenem Islt PRME <=0.25 S Nitrofurantoin Islt PREM <=16 S Pip+Tazo Islt PREM <=4 S Tetracycline Islt PREM <=1 S Tobramycin Islt PREM <=1 S TMP SMX Islt PREM >=320 R Cefuroxime Islt PREM >=64 R Normal [facility] Comment on above: Performed By: #### L 100.0500, L500.2499 #### [facility] [address] [place], [place], [address] Urine Cultureon 05-09-2024 [facility] RESULTS CALLED TO Lesli WALLACE 05/09/24 1156 Lorrie Patterson. REPORT READ BACK BY . Bacteria Ur Cult Copy of report sent to Infection Control [facility]inter [id number] 05/09/24 0397 ESSENCE. ESBL Escherichia coli [place] Count >100,000 MARKER A ESBL producing Organism [...] TMP SMX Islt PREM >=320 R Normal [facility] Comment on above: Performed By: #### M 100.2199, L4 #### [facility] [address] [place], [place], [address] Urinalysis, Routine (Dipstic k)on 05-06-2024 BILIRUBIN URINE Negative Normal Negative [facility] Comment on above: Order Comment: Urine , Random Performed By: #### M 100.0, L400 #### [facility] [address] [place], [place], [address] Clarity (U) Cloudy Normal Clear [facility] Comment on above: Order Comment: Urine , Random Performed By: #### M 100.2200, L400 #### [facility] [address] [place], [place], [address] Color (U) Yellow Normal Yellow [facility] Comment on above: Order Comment: Urine , Random Performed By: #### M .2199, L4.2010 #### [facility] [address] [place], [address] GLUCOSE, UR Normal Normal Normal [facility] Comment on above: Order Comment: Urine , Random Performed By: #### M , L4 #### [facility] [address] [place], [address] KETONE UR 5 mg/dl Abnormal Negative [facility] Comment on above: Order Comment: Urine , Random Performed By: #### M , L4 #### [facility] [address] [place], [address] LEUK ESTERASE 500 /ul Abnormal Negative [facility] Comment on above: Order Comment: Urine , Random Performed By: #### M , L4 #### [facility] [address] [place], [address] Nitrite Ql (U) Positive Abnormal Negative [facility] Comment on above: Order Comment: Urine , Random Performed By: #### M , L4 #### [facility] [address] [place], [address] OCCULT BLOOD-UR 250 /ul Abnormal Negative [facility] Comment on above: Order Comment: Urine , Random Performed By: #### M , L4 #### [facility] [address] [place], [address] pH UR 6.0 Normal 5.0 - 8.0 [facility] Comment on above: Order Comment: Urine , Random Performed By: #### M , L4 #### [facility] [address] [place], [address] PROT DIPSTX 30 mg/dl Abnormal Negative [facility] Comment on above: Order Comment: Urine , Random Performed By: #### M 100.2200, L4.2010 #### [facility] [address] [place], [address] SP.GR. DIPSTX 1.015 Normal 1.002-1.030 [facility] Comment on above: Order Comment: Urine , Random Performed By: #### M 100.2200, L4.2010 #### [facility] [address] [place], [address] UROBILI Normal Normal Normal [facility] Comment on above: Order Comment: Urine , Random Performed By: #### M 100.0, L4 #### [facility] [address] [place], [address] Urine Cultureon 03-28-2024 [facility] ESBL Escherichia col i [place] Count >100,000 MARKER A ESBL producing Organism [...] Imipenem Islt PREM <=0.25 S levoFLOXacin Islt PERM >=8 R Meropenem Islt PREM <=0.25 S Nitrofurantoin Islt PREM 32 S Pip+Tazo Islt PREM <=4 S Tetracycline Islt PREM <=1 S Tobramycin Islt PREM <=1 S TMP SMX Islt PREM >=320 R Cefuroxime Islt PREM >=64 R Normal [facility] Comment on above: Performed By: #### M 100.2200, L4 #### [facility] [address] [place], [address] Urinalysis, Routine (Dipstic k)on 03-25-2024 BILIRUBIN URINE Negative Normal Negative [facility] Comment on above: Order Comment: CLEAN CATCH Performed By: #### M , #### [facility] [address] [place], [address] Clarity (U) Sl. Cloudy Normal Clear [facility] Comment on above: Order Comment: CLEAN CATCH Performed By: #### M , #### [facility] [address] [place], [address] Color (U) Yellow Normal Yellow [facility] Comment on above: Order Comment: CLEAN CATCH Performed By: #### M , #### [facility] [address] [place], [address] GLUCOSE, UR Normal Normal Normal [facility] Comment on above: Order Comment: CLEAN CATCH Performed By: #### M #### [facility] [address] [place], [address] KETONE UR Negative Normal Negative [facility] Comment on above: Order Comment: CLEAN CATCH Performed By: #### M #### [facility] [address] [place], [address] LEUK ESTERASE 500 /ul Abnormal Negative [facility] Comment on above: Order Comment: CLEAN CATCH Performed By: #### M , L4 #### [facility] [address] [place], [address] Nitrite Ql (U) Positive Abnormal Negative [facility] Comment on above: Order Comment: CLEAN CATCH Performed By: #### M , L4 #### [facility] [address] [place], [address] OCCULT BLOOD-UR 250 /ul Abnormal Negative [facility] Comment on above: Order Comment: CLEAN CATCH Performed By: #### M 100.0, L4.2010 #### [facility] [address] [place], [address] pH UR 6.0 Normal 5.0 - 8.0 [facility] Comment on above: Order Comment: CLEAN CATCH Performed By: #### M 100.2199, L4.2010 #### [facility] [address] [place], [address] PROT DIPSTX 15 mg/dl Abnormal Negative [facility] Comment on above: Order Comment: CLEAN CATCH Performed By: #### M 100.2199, L4.2010 #### [facility] [address] [place], [address] SP.GR. DIPSTX 1.010 Normal 1.002-1.030 [facility] Comment on above: Order Comment: CLEAN CATCH Performed By: #### M , L4 #### [facility] [address] [place], [address] UROBILI Normal Normal Normal [facility] Comment on above: Order Comment: CLEAN CATCH Performed By: #### M , L4 #### [facility] [address] [place], [address] Basic Metabolic Profile (BMP )on 03-14-2024 BUN/CRE 18.1 RATIO Normal 10-20 [facility] Comment on above: Order Comment: 102.2 Performed By: #### L 100.0500, L500.2500 #### [facility] [address] [place], [address] CA,Total 9.1 mg/dL Normal 8.5-10.1 [facility] Comment on above: Order Comment: 102.2 Performed By: #### L 100.0500, L500.2500 #### [facility] [address] [place], [address] Chloride [Moles/Vol] 102 mmol/L Normal 98-107 [facility] Comment on above: Order Comment: 102.2 Performed By: #### L 100.0500, L500.2500 #### [facility] [address] [place], [address] CO2 [Moles/Vol] 31.0 mmol/L Normal 21.0-32.0 [facility] Comment on above: Order Comment: 102.2 Performed By: #### L 100.0500, L500.2500 #### [facility] [address] [place], [address] Creatinine [Mass/Vol] 0.50 mg/dL Low 0.55-1.[address] [facility] Comment on above: Order Comment: 102.2 Result Comment: The validity of the calculated GFR GFRAA in patients over 70 years has not been determined. Clinical correlation is essential. Performed By: #### L 100.0500, L500.2500 #### [facility] [address] [place], [address] EST GFR - AA 154 mL/min Normal >60 [facility] Comment on above: Order Comment: 102.2 Result Comment: Afri can Guyanese GFR Calc Performed By: #### L 100.0500, L500.2500 #### [facility] [address] [place], [address] GAP 3 Low 5-15 [facility] Comment on above: Order Comment: 102.2 Performed By: #### L 100.0500, L500.2500 #### [facility] [address] [place], [address] GFR/1.73 sq M.predicted among non-blacks MDRD (S/P/Bld) [Vol rate/Area] 127 mL/min/{1.73_m2} Normal >60 [facility] Comment on above: Order Comment: 102.2 Result Comment: Non- GFR Calc Performed By: #### L 100.0500, L500.2500 #### [facility] [address] [place], [address] Glucose [Mass/Vol] 151 mg/dL High 74-106 [facility] Comment on above: Order Comment: 102.2 Result Comment: Fast ing Glucose result greater than or equal to 126 mg/dL suggests DIABETES MELLITUS per A.D.A. criteria. Performed By: #### L 100.0500, L500.2500 #### [facility] [address] [place], [address] Potassium [Moles/Vol] 4.5 mmol/L Normal 3.5-5.[address] [facility] Comment on above: Order Comment: 102.2 Performed By: #### L 100.0500, L500.2500 #### [facility] [address] [place], [address] Sodium [Moles/Vol] 136 mmol/L Normal 136-145 [facility] Comment on above: Order Comment: 102.2 Performed By: #### L 100.0500, L500.2500 #### [facility] [address] [place], [address] Urea nitrogen [Mass/Vol] 9 mg/dL Normal 7-18 [facility] Comment on above: Order Comment: 102.2 Performed By: #### L 100.0500, L500.2500 #### [facility] [address] [place], [address] CBC-Complete Blood Cnt No Di ffon 03-14-2024 Erythrocyte distribution width (RBC) [Ratio] 14.0 % Normal 11.6-14.6 [facility] Comment on above: Performed By: #### L 100.0500, L500.2500 #### [facility] [address] [place], [address] Hematocrit (Bld) [Volume fraction] 40.3 % Normal 37-47 [facility] Comment on above: Performed By: #### L 100.0500, L500.2500 #### [facility] [address] [place], [address] Hemoglobin (Bld) [Mass/Vol] 12.1 g/dL Normal 12.0-15.0 [facility] Comment on above: Performed By: #### L 100.0500, L500.2500 #### [facility] [address] [place], [address] MCH (RBC) [Entitic mass] 28.7 pg Normal 27.0-32.0 [facility] Comment on above: Performed By: #### L 100.0500, L500.2500 #### [facility] [address] [place], [address] MCHC (RBC) [Mass/Vol] 30.0 g/dL Low 32-[address] [facility] Comment on above: Performed By: #### L 100.0500, L500.2500 #### [facility] [address] [place], [address] MCV (RBC) [Entitic vol] 95.5 fL Normal 81-99 [facility] Comment on above: Performed By: #### L 100.0500, L500.2500 #### [facility] [address] [place], [address] Platelet mean volume (Bld) [Entitic vol] 8.5 fL Normal 6.2-12.0 [facility] Comment on above: Performed By: #### L 100.0500, L500.2500 #### [facility] [address] [place], [address] Platelets (Bld) [#/Vol] 158 10*3/uL Normal 150-450 [facility] Comment on above: Performed By: #### L 100.0500, L500.2500 #### [facility] [address] [place], [address] RBC (Bld) [#/Vol] 4.22 10*6/uL Normal 4.2-5.4 [facility] Comment on above: Performed By: #### L 100.0500, L500.2500 #### [facility] [address] [place], [address] RDW SD 48.5 fl High 35.1-43.9 [facility] Comment on above: Performed By: #### L 100.0500, L500.2500 #### [facility] [address] [place], [address] WBC (Bld) [#/Vol] 7.1 10*3/uL Normal 4.4-11.0 [facility] Comment on above: Performed By: #### L 100.0500, L500.2500 #### [facility] [address] [place], [address] Basophil percentageOrdered B y: Balwinder Alves on 12-14-2023 Chloride [Moles/Vol] 105 mmol/L 98-107 [facility] Cholesterol [Mass/Vol] 128 mg/dL <200 [facility] Comment on above: <200 mg/dL Desirable 200-240 mg/dL Borderline >240 mg/dL High Risk Glucose [Mass/Vol] 132 mg/dL 74-106 [facility] Comment on above: Fasting Glucose resu lt greater than or equal to 126 mg/dL suggests DIABETES MELLITUS per A.D.A. criteria. Hemoglobin (Bld) [Mass/Vol] 12.5 g/dL 12.0-15.0 [facility] Potassium [Moles/Vol] 4.4 mmol/L 3.5-5.[address] [facility] Sodium [Moles/Vol] 142 mmol/L 136-145 [facility] Triglyceride [Mass/Vol] 178 mg/dL <199 [facility] Comment on above: The drugs N-Acetylcy steine and Metamizole may falsely depress this assay.Serum Triglycerides Reference Interval Normal <150 mg/dL Borderline high 150 - 199 mg/dL High 200 - 499 mg/dL Very High > or = 500 mg/dL WBC (Bld) [#/Vol] 4.9 10*3/uL 4.4-11.0 [facility] Determination of erythrocyte mean corpuscular volume (MCV)Ordered By: Balwinder Alves on 12-14-2023 MCV (RBC) [Entitic vol] 92.6 fL 81-99 [facility] Erythrocyte distribution wid th ratioOrdered By: Balwinder Alves on 12-14-2023 Erythrocyte distribution width (RBC) [Ratio] 15.4 % 11.6-14.6 [facility] Erythrocyte distribution wid th standard deviationOrdered By: Balwinder Alves on 12-14-2023 Erythrocyte distribution width (RBC) [Entitic vol] 52.9 fL 35.1-43.9 [facility] Hematocrit Auto (Bld) [Volum e fraction]Ordered By: Balwinder Alves on 12-14-2023 Hematocrit (Bld) [Volume fraction] 41.1 % 37-47 [facility] Laboratory - Chemistry and C hemistry - challengeOrdered By: Balwinder Alves on 12-14-2023 Cholesterol in HDL [Mass/Vol] 49 mg/dL >40 [facility] Comment on above: The drugs N-Acetylcy steine and Metamizole may falsely depress this assay. Reference Range HDL <40 mg/dL Low HDL Cholesterol HDL >or= 60 mg/dL High HDL Cholesterol Cholesterol in LDL [Mass/Vol] 43 mg/dL 0-130 [facility] CO2 [Moles/Vol] 32.0 mmol/L 21.0-32.0 [facility] Urea nitrogen/Creatinine [Mass ratio] 12.2 mg/mg 10-20 [facility] Laboratory - Hematology and Cell countsOrdered By: Balwinder Alves on 12-14-2023 MCH (RBC) [Entitic mass] 28.2 pg 27.0-32.0 [facility] MCHC (RBC) [Mass/Vol] 30.4 g/dL 32-[address] [facility] Platelet mean volume (Bld) [Entitic vol] 8.5 fL 6.2-12.0 [facility] Platelets (Bld) [#/Vol] 174 10*3/uL 150-450 [facility] No Panel InformationOrdered By: Balwinder Alves on 12-14-2023 Estimated GFR (MDRD) Amer 130 mL/min >60 [facility] Comment on above: GFR Calc Estimated GFR (MDRD) Non-Af Amer 107 mL/min >60 [facility] Comment on above: Non- GFR Calc Vitamin D 25-Hydroxy 42.9 ng/mL [facility] Comment on above: Vitamin D 25(OH) Sta tus Range Deficiency <20 ng/mL (50nmol/L) Insufficiency 20 - 30 ng/mL (50 - 75 nmol/L) Sufficiency 30 - 100 ng/mL (75 - 250 nmol/L) Toxicity >100 ng/mL (>250 nmol/L) VLDL Cholesterol 36 mg/dL 5-40 [facility] RBC Auto (Bld) [#/Vol]Ordere d By: Balwinder Alves on 12-14-2023 RBC (Bld) [#/Vol] 4.44 10*6/uL 4.2-5.4 [facility] Serum or plasma calcium jacqueline urement (mass/volume)Ordered By: Balwinder Alves on 12-14-2023 Calcium [Mass/Vol] 8.9 mg/dL 8.5-10.1 [facility] Serum or plasma creatinine m easurement (mass/volume)Ordered By: Balwinder Alves on 12-14-2023 Creatinine [Mass/Vol] 0.58 mg/dL 0.55-1.[address] [facility] Comment on above: The validity of the calculated GFR & GFRAA in patients over 70 years has not been determined. Clinical correlation is essential. Serum or plasma urea nitroge n measurement (mass/volume)Ordered By: Balwinder Alves on 12-14-2023 Urea nitrogen [Mass/Vol] 7 mg/dL 7-18 [facility] Thin prep Papanicolaou smear with manual screeningOrdered By: Balwinder Alves on 12-14-2023 Thin prep Papanicolaou smear with manual screening 5 5-15 [facility] Whole blood hemoglobin A1c/t otal hemoglobin ratio (mass fraction)Ordered By: Balwinder Alves on 12-14-2023 HbA1c (Bld) [Mass fraction] 6.2 % 3.8-5.6 [facility] Comment on above: Normal < 5.7 % Predi abetic 5.7 - 6.4 % Diabetic >or= 6.5 % Please note range changes. Office Visiton 12-09-2023 Follow-up visit [id number] Joy Bustamante 1945 F Date Provider Department Center 12/09/2023 [id number], [facility] [place] None No family history on file Level of Service:06744 MS OFFICE/OUTPATIENT ESTABLISHED LOW MDM 20 MIN Reason for Visit and Comments: Follow-up [668275] - L fibula fx Normal [facility] Progress Noteon 12-09-2023 Progress Note [facility] [address] [place] [address] [address] [facility] [address] Dept: [phone] Dept Gumaro Bustamante 1945 [id number] 12/09/2023 HISTORY OF PRESENT ILLNESS: Gumaro returns [...] on it (more content not included)... [facility] 36on 10-14-2023 36 Spoke with Beny at [facility] and clarified that Gumaro should bear weight in her boot until next visit and should use walker as needed for balance. [facility] 36 Name of Caller: Gareth at [facility] Contact ask for Gareth Reason Gareth [...] a call back. Office Name: Ortho [facility] Office Visiton 10-14-2023 Follow-up visit [id number] Joy Bustamante grace 1945 F Date Provider Department Center 10/14/2023 [id number] BETTENCOURT [facility] None No family history on file Level of Service:90477 MS OFFICE/OUTPATIENT ESTABLISHED LOW MDM 20 MIN Reason for Visit and Comments: Follow-up [288435] - Left distal fibula fx DOI 07/02/23 [facility] Progress Noteon 10-14-2023 Progress Note [facility] [address] [place] [address] [place] [address] Dept: [phone] Dept Gumaro Daria 1945 [id number] 10/14/2023 HISTORY OF PRESENT ILLNESS: Gumaro returns [...] above p (more content not included)... Normal [facility] Clostridioides difficile nuc leic acid assay by PCROrdered By: Balwinder Alves on 09-23-2023 C. difficile DNA DIGNA+probe Ql (Unsp spec) [facility] Clostridium difficile detect ion by polymerase chain reactionOrdered By: Balwinder Alves on 09-23-2023 C. difficile DNA DIGNA+probe Ql (Unsp spec) [facility] Basophil percentageOrdered B y: Balwinder Alves on 09-14-2023 Chloride [Moles/Vol] 102 mmol/L 98-107 [facility] Glucose [Mass/Vol] 142 mg/dL 74-106 [facility] Comment on above: Fasting Glucose resu lt greater than or equal to 126 mg/dL suggests DIABETES MELLITUS per A.D.A. criteria. Potassium [Moles/Vol] 4.1 mmol/L 3.5-5.[address] [facility] Sodium [Moles/Vol] 138 mmol/L 136-145 [facility] WBC (Bld) [#/Vol] 5.9 10*3/uL 4.4-11.0 [facility] Blood erythrocytes count (nu mber/volume)Ordered By: Balwinder Alves on 09-14-2023 RBC (Bld) [#/Vol] 4.96 10*6/uL 4.2-5.4 [facility] Blood hemoglobin measurement (mass/volume)Ordered By: Balwinder Alves on 09-14-2023 Hemoglobin (Bld) [Mass/Vol] 13.3 g/dL 12.0-15.0 [facility] Blood platelet mean volumeOr dered By: Balwinder Alves on 09-14-2023 Platelet mean volume (Bld) [Entitic vol] 8.3 fL 6.2-12.0 [facility] Determination of erythrocyte mean corpuscular volume (MCV)Ordered By: Balwinder Alves on 09-14-2023 MCV (RBC) [Entitic vol] 92.5 fL 81-99 [facility] Hematocrit Auto (Bld) [Volum e fraction]Ordered By: Balwinder Alves on 09-14-2023 Hematocrit (Bld) [Volume fraction] 45.9 % 37-47 [facility] Laboratory - Chemistry and C hemistry - challengeOrdered By: Balwinder Alves on 09-14-2023 CO2 [Moles/Vol] 31.0 mmol/L 21.0-32.0 [facility] Urea nitrogen/Creatinine [Mass ratio] 10.1 mg/mg 10-20 [facility] Laboratory - Hematology and Cell countsOrdered By: Balwinder Alves on 09-14-2023 Erythrocyte distribution width (RBC) [Entitic vol] 47.0 fL 35.1-43.9 [facility] Erythrocyte distribution width (RBC) [Ratio] 13.9 % 11.6-14.6 [facility] MCH (RBC) [Entitic mass] 26.8 pg 27.0-32.0 [facility] MCHC Auto (RBC) [Mass/Vol]Or dered By: Balwinder Alves on 09-14-2023 MCHC (RBC) [Mass/Vol] 29.0 g/dL 32-[address] [facility] No Panel InformationOrdered By: Balwinder Alves on 09-14-2023 Estimated GFR (MDRD) Amer 125 mL/min >60 [facility] Comment on above: GFR Calc Estimated GFR (MDRD) Non-Af Amer 103 mL/min >60 [facility] Comment on above: Non- GFR Calc Office Visiton 09-14-2023 Follow-up visit [id number] Joy Bustamante grace 1945 F Date Provider Department Center 09/14/2023 [id number] GRIG[facility] None No family history on file Level of Service:95178 MS OFFICE/OUTPATIENT NEW MODERATE MDM 45-59 MINUTES Reason for Visit and Comments: New Patient [542] - LT distal fibula fx DOI 07/02/23 Normal [facility] Platelets bldOrdered By: Javed Alves on 09-14-2023 Platelets (Bld) [#/Vol] 196 10*3/uL 150-450 [facility] Progress Noteon 09-14-2023 Progress Note [facility] [address] [facility] [address] Dept: [phone] Dept Gumaro Bustamante 1945 [id number] 09/14/2023 HISTORY OF PRESENT ILLNESS: Gumaro is a 78 y.o. female here today for evaluation of her Left distal fibula fx DOI 07/02/23. Patient has been in a walking boot. Patient is diabetic. She is currently in a residential due to injury. She was supposed to be seen closer to her fx date but her appointments were canceled due to residential transportation issues. She has been nonweightbearing since her injury. Gumaro states the problem has been present for 3 months est Gumaro states the problem started as the result of a fall, tripped walking into her home. Gumaro has tried or has been treated with the following: walking boot, residential PT. Review of Systems Surgical Risk Factors: [...] given he (more content not included)... Normal [facility] Serum or plasma calcium jacqueline urement (mass/volume)Ordered By: Balwinder Alves on 09-14-2023 Calcium [Mass/Vol] 8.9 mg/dL 8.5-10.1 [facility] Serum or plasma creatinine m easurement (mass/volume)Ordered By: Balwinder Alves on 09-14-2023 Creatinine [Mass/Vol] 0.59 mg/dL 0.55-1.[address] [facility] Comment on above: The validity of the calculated GFR & GFRAA in patients over 70 years has not been determined. Clinical correlation is essential. Serum or plasma urea nitroge n measurement (mass/volume)Ordered By: Balwinder Alves on 09-14-2023 Urea nitrogen [Mass/Vol] 6 mg/dL 7-18 [facility] Thin prep Papanicolaou smear with manual screeningOrdered By: Balwinder Alves on 09-14-2023 Thin prep Papanicolaou smear with manual screening 5 5-15 [facility] XR ANKLE 3+ VIEWS LEFTon XR ANKLE [...] at the lateral malleolar fracture site. Normal [facility] XR FOOT 3+ VIEWS LEFTon 09-04 XR [...] at the lateral malleolar fracture site. Normal [facility] 36on 09-03-2023 36 Left distal fibula f x doi 07/02/23 she is in a boot. Can only be seen in [place] or [place]. No wads Normal [facility] 36on 09-02-2023 36 Gareth an RN at [facility] called [phone] ext [phone], he states that they just got Gumaro from [place] and they are looking for her to [...] today and then works again tomorrow. Normal [facility] 36on 07-17-2023 36 LVM to schedule with Dr. Ureña on Thursday at 1pm in [facility] or 9am in [place] if not already double booked. Normal [facility] .Auto DiffOrdered By: SYSTEM SYSTEM on 07-04-2023 Basophil, Absolute 0.0 103/mcL Normal 0.0-0.2 AO [facility] r[facility] Comment on above: Performed By: #### L IPID, ADIFF, ANEU, CMP, CBC, GFR #### [address] [address] Basophils/100 WBC (Bld) 0.4 % Normal 0.0-2.5 A O [facility] Comment on above: Performed By: #### L IPID, ADIFF, ANEU, CMP, CBC, GFR #### [address] [address] Eosinophil, Absolute 0.4 103/mcL Normal 0.0-0.4 [facility] Comment on above: Performed By: #### L IPID, ADIFF, ANEU, CMP, CBC, GFR #### [address] [address] Eosinophils/100 WBC (Bld) 6.9 % Normal 0.0-7.0 [facility] Comment on above: Performed By: #### L IPID, ADIFF, ANEU, CMP, CBC, GFR #### [address] [address] Lymphocyte, Absolute 1.7 103/mcL Normal 0.8-3.9 [facility] Comment on above: Performed By: #### L IPID, ADIFF, ANEU, CMP, CBC, GFR #### [address] [address] Lymphocytes/100 WBC (Bld) 27.3 % Normal 10.0-50.0 [facility] Comment on above: Performed By: #### L IPID, ADIFF, ANEU, CMP, CBC, GFR #### [address] [address] Monocyte, Absolute 0.4 103/mcL Normal 0.2-1.0 AO Wo rkflow [facility] Comment on above: Performed By: #### L IPID, ADIFF, ANEU, CMP, CBC, GFR #### [address] [address] Monocytes/100 WBC (Bld) 6.4 % Normal 1.7-13.0 A O Workflow [facility] Comment on above: Performed By: #### L IPID, ADIFF, ANEU, CMP, CBC, GFR #### [address] [address] Neutrophils/100 WBC (Bld) 59.0 % Normal 37.0-80.0 [facility] Comment on above: Performed By: #### L IPID, ADIFF, ANEU, CMP, CBC, GFR #### [address] [address] .GFRon 07-04-2023 GFR 93 ml/min/1.73sqm Normal [facility] ([place]) Comment on above: Result Comment: GFR Population [...] IPID, ADIFF, ANEU, CMP, CBC, GFR #### [address] [address] GFR Non- 77 ml/min/1.73sqm Normal [facility] ([place]) Comment on above: Result Comment: GFR Population [...] IPID, ADIFF, ANEU, CMP, CBC, GFR #### [address] [address] .NEUABSOrdered By: SYSTEM SY STEM on 07-04-2023 Neutrophil, Absolute 3.7 103/mcL Normal 2.9-6.2 [facility] Comment on above: Performed By: #### L IPID, ADIFF, ANEU, CMP, CBC, GFR #### [address] [address] BMPon 07-04-2023 BUN/Creatinine Ratio 14 ratio Normal 7-27 [facility] ([place]) Comment on above: Performed By: #### L IPID, ADIFF, ANEU, CMP, CBC, GFR #### [address] [address] BMPOrdered By: SYSTEM SYSTEM on 07-04-2023 Calcium [Mass/Vol] 8.1 mg/dL Low 8.4-10.2 AO ADM [facility] Comment on above: Performed By: #### L IPID, ADIFF, ANEU, CMP, CBC, GFR #### [address] [address] Chloride [Moles/Vol] 104 mmol/L Normal 98-107 AO A DM SS Comment on above: Performed By: #### L IPID, ADIFF, ANEU, CMP, CBC, GFR #### [address] [address] CO2 [Moles/Vol] 29 mmol/L Normal 23-31 AO ADM SS Comment on above: Performed By: #### L IPID, ADIFF, ANEU, CMP, CBC, GFR #### [address] [address] Creatinine [Mass/Vol] 0.73 mg/dL Normal 0.55-1.02 AO ADM SS Comment on above: Performed By: #### L IPID, ADIFF, ANEU, CMP, CBC, GFR #### [address] [address] Electrolyte Balance 6.0 mEq/L Normal 4.0-15.0 AO AD M SS Comment on above: Performed By: #### L IPID, ADIFF, ANEU, CMP, CBC, GFR #### [place] [id number] Glucose [Mass/Vol] 145 mg/dL High 83-110 AO ADM SS Comment on above: Performed By: #### L IPID, ADIFF, ANEU, CMP, CBC, GFR #### [address] [address] Potassium [Moles/Vol] 4.9 mmol/L Normal 3.5-5.1 AO ADM SS Comment on above: Performed By: #### L IPID, ADIFF, ANEU, CMP, CBC, GFR #### [address] [address] Sodium [Moles/Vol] 139 mmol/L Normal 136-145 AO ADM SS Comment on above: Performed By: #### L IPID, ADIFF, ANEU, CMP, CBC, GFR #### [address] [address] Urea nitrogen [Mass/Vol] 10 mg/dL Normal 7-18 AO ADM SS Comment on above: Performed By: #### L IPID, ADIFF, ANEU, CMP, CBC, GFR #### [address] [address] CBCOrdered By: SYSTEM SYSTEM on 07-04-2023 Erythrocyte distribution width (RBC) [Ratio] 14.2 % Normal 11.5-14.5 [facility] Comment on above: Performed By: #### L IPID, ADIFF, ANEU, CMP, CBC, GFR #### [address] [address] Hematocrit (Bld) [Volume fraction] 35.4 % Low 37.0-47.0 [facility] Work[facility] Comment on above: Performed By: #### L IPID, ADIFF, ANEU, CMP, CBC, GFR #### [address] [address] MCH (RBC) [Entitic mass] 28.7 pg Normal 27.0-31.2 AO Workflow [facility] Comment on above: Performed By: #### L IPID, ADIFF, ANEU, CMP, CBC, GFR #### [address] [address] MCHC 32.4 G/dL Low 33.0-37.0 AO Workflow SS Comment on above: Performed By: #### L IPID, ADIFF, ANEU, CMP, CBC, GFR #### [address] [address] MCV (RBC) [Entitic vol] 88.6 fL Normal 80.0-94.0 A O Workflow SS Comment on above: Performed By: #### L IPID, ADIFF, ANEU, CMP, CBC, GFR #### [address] [address] Platelet mean volume (Bld) [Entitic vol] 6.5 fL Low 7.4-10.4 AO [facility] Comment on above: Performed By: #### L IPID, ADIFF, ANEU, CMP, CBC, GFR #### [address] [address] CBCon 07-04-2023 Hgb 11.4 G/dL Low 12.0-16.0 [facility] ([place]) Comment on above: Performed By: #### L IPID, ADIFF, ANEU, CMP, CBC, GFR #### [address] [address] Platelet 165 10 3/mcL Normal 130-400 [facility] ([place]) Comment on above: Performed By: #### L IPID, ADIFF, ANEU, CMP, CBC, GFR #### [place] [address] [place], [place] [address] RBC 3.99 10 6/mcL Low 4.20-5.40 [facility] ([place]) Comment on above: Performed By: #### L IPID, ADIFF, ANEU, CMP, CBC, GFR #### [place] [address] [place], [place] [address] WBC 6.3 10 3/mcL Normal 4.6-10.8 [facility] ([place]) Comment on above: Performed By: #### L IPID, ADIFF, ANEU, CMP, CBC, GFR #### [place] [address] [place], [place] [address] LABORATORYOrdered By: Darwin Diaz on 07-04-2023 Blood Glucose Testing Reason Routine (07/04/23 4:36 PM) [facility] Work Phone: Glucose [Mass/Vol] 125 mg/dL Invalid Interpretation Code 82 - 115 mg/dL [facility] Work Phone: Blood Glucose Testing Reason Routine (07/04/23 10:38 AM) [facility] Work Phone: LABORATORYOrdered By: Loretta Mejia on 07-04-2023 Glucose [Mass/Vol] 140 mg/dL Invalid Interpretation Code 82 - 115 mg/dL [facility] Work Phone: Glucose [Mass/Vol] 139 mg/dL Invalid Interpretation Code 82 - 115 mg/dL [facility] Work Phone: LABORATORYOrdered By: SYSTEM SYSTEM on [...] IPID, ADIFF, ANEU, CMP, CBC, GFR #### [address] [address] .Auto Diffon 07-03-2023 Basophil, Absolute 0.0 10 3/mcL Normal 0.0-0.2 [facility] ([place]) Comment on above: Performed By: #### L IPID, ADIFF, ANEU, CMP, CBC, GFR #### [address] [address] Basophils/100 WBC (Bld) 0.5 % Normal 0.0-2.5 [facility] ([place]) Comment on above: Performed By: #### L IPID, ADIFF, ANEU, CMP, CBC, GFR #### [address] [address] Eosinophil, Absolute 0.4 10 3/mcL Normal 0.0-0.4 [facility] ([place]) Comment on above: Performed By: #### L IPID, ADIFF, ANEU, CMP, CBC, GFR #### [address] [address] Eosinophils/100 WBC (Bld) 6.7 % Normal 0.0-7.0 [facility] ([place]) Comment on above: Performed By: #### L IPID, ADIFF, ANEU, CMP, CBC, GFR #### [address] [address] Lymphocyte, Absolute 1.8 10 3/mcL Normal 0.8-3.9 [facility] ([place]) Comment on above: Performed By: #### L IPID, ADIFF, ANEU, CMP, CBC, GFR #### [address] [address] Lymphocytes/100 WBC (Bld) 31.4 % Normal 10.0-50.0 [facility] ([place] Comment on above: Performed By: #### L IPID, ADIFF, ANEU, CMP, CBC, GFR #### [address] [address] Monocyte, Absolute 0.4 10 3/mcL Normal 0.2-1.0 [facility] ([place]) Comment on above: Performed By: #### L IPID, ADIFF, ANEU, CMP, CBC, GFR #### [address] [address] Monocytes/100 WBC (Bld) 6.4 % Normal 1.7-13.0 A [facility] ([place]) Comment on above: Performed By: #### L IPID, ADIFF, ANEU, CMP, CBC, GFR #### [address] [address] Neutrophils/100 WBC (Bld) 55.0 % Normal 37.0-80.0 [facility] ([place]) Comment on above: Performed By: #### L IPID, ADIFF, ANEU, CMP, CBC, GFR #### [address] [address] .GFRon 07-03-2023 GFR 92 ml/min/1.73sqm Normal [facility] ([place]) Comment on above: Result Comment: GFR Population [...] IPID, ADIFF, ANEU, CMP, CBC, GFR #### [address] [address] GFR Non- 76 ml/min/1.73sqm Normal [facility] ([place]) Comment on above: Result Comment: GFR Population [...] IPID, ADIFF, ANEU, CMP, CBC, GFR #### [address] [address] .NEUABSon 07-03-2023 Neutrophil, Absolute 3.2 10 3/mcL Normal 2.9-6.2 [facility] ([place]) Comment on above: Performed By: #### L IPID, ADIFF, ANEU, CMP, CBC, GFR #### [address] [address] BMPon 07-03-2023 BUN/Creatinine Ratio 11 ratio Normal 7-27 [facility] ([place]) Comment on above: Performed By: #### L IPID, ADIFF, ANEU, CMP, CBC, GFR #### [address] [address] Calcium [Mass/Vol] 8.4 mg/dL Normal 8.4-10.2 [facility] ([place]) Comment on above: Performed By: #### L IPID, ADIFF, ANEU, CMP, CBC, GFR #### [address] [address] Chloride [Moles/Vol] 103 mmol/L Normal 98-107 [facility] ([place]) Comment on above: Performed By: #### L IPID, ADIFF, ANEU, CMP, CBC, GFR #### [address] [address] CO2 [Moles/Vol] 31 mmol/L Normal 23-31 [facility] ([place]) Comment on above: Performed By: #### L IPID, ADIFF, ANEU, CMP, CBC, GFR #### [address] [address] Creatinine [Mass/Vol] 0.74 mg/dL Normal 0.55-1.02 [facility] ([place]) Comment on above: Performed By: #### L IPID, ADIFF, ANEU, CMP, CBC, GFR #### [address] [address] Electrolyte Balance 6.0 mEq/L Normal 4.0-15.0 [facility] ([place]) Comment on above: Performed By: #### L IPID, ADIFF, ANEU, CMP, CBC, GFR #### [address] [address] Glucose [Mass/Vol] 165 mg/dL High 83-110 [facility] ([place]) Comment on above: Performed By: #### L IPID, ADIFF, ANEU, CMP, CBC, GFR #### [address] [address] Potassium [Moles/Vol] 4.6 mmol/L Normal 3.5-5.1 [facility] ([place]) Comment on above: Performed By: #### L IPID, ADIFF, ANEU, CMP, CBC, GFR #### [address] [address] Sodium [Moles/Vol] 140 mmol/L Normal 136-145 [facility] ([place]) Comment on above: Performed By: #### L IPID, ADIFF, ANEU, CMP, CBC, GFR #### [address] [address] Urea nitrogen [Mass/Vol] 8 mg/dL Normal 7-18 [facility] ([place]) Comment on above: Performed By: #### L IPID, ADIFF, ANEU, CMP, CBC, GFR #### [address] [address] CBCon 07-03-2023 Erythrocyte distribution width (RBC) [Ratio] 14.4 % Normal 11.5-14.5 [facility] ([place]) Comment on above: Performed By: #### L IPID, ADIFF, ANEU, CMP, CBC, GFR #### [place] [address] Hematocrit (Bld) [Volume fraction] 36.4 % Low 37.0-47.0 [facility] ([place]) Comment on above: Performed By: #### L IPID, ADIFF, ANEU, CMP, CBC, GFR #### [place] [address] Hgb 11.6 G/dL Low 12.0-16.0 [facility] ([place]) Comment on above: Performed By: #### L IPID, ADIFF, ANEU, CMP, CBC, GFR #### [address] [address] MCH (RBC) [Entitic mass] 28.3 pg Normal 27.0-31.2 [facility] ([place]) Comment on above: Performed By: #### L IPID, ADIFF, ANEU, CMP, CBC, GFR #### [place] [address] MCHC 31.9 G/dL Low 33.0-37.0 [facility] ([place]) Comment on above: Performed By: #### L IPID, ADIFF, ANEU, CMP, CBC, GFR #### [place] [address] MCV (RBC) [Entitic vol] 88.9 fL Normal 80.0-94.0 A [facility] ([place]) Comment on above: Performed By: #### L IPID, ADIFF, ANEU, CMP, CBC, GFR #### [place] [id number] Platelet 158 10 3/mcL Normal 130-400 [facility] ([place]) Comment on above: Performed By: #### L IPID, ADIFF, ANEU, CMP, CBC, GFR #### [place] [address] Platelet mean volume (Bld) [Entitic vol] 6.6 fL Low 7.4-10.4 [facility] ([place]) Comment on above: Performed By: #### L IPID, ADIFF, ANEU, CMP, CBC, GFR #### [facility] [address] [place], [place] [address] RBC 4.10 10 6/mcL Low 4.20-5.40 [facility] ([place]) Comment on above: Performed By: #### L IPID, ADIFF, ANEU, CMP, CBC, GFR #### [place] [address] [place], [place] [address] WBC 5.8 10 3/mcL Normal 4.6-10.8 [facility] ([place]) Comment on above: Performed By: #### L IPID, ADIFF, ANEU, CMP, CBC, GFR #### [place] [address] [place], [place] [address] LABORATORYOrdered By: Jose Shepard on 07-03-2023 Blood Glucose Testing Reason Routine (07/03/23 9:10 PM) [facility] Work Phone: LABORATORYOrdered By: SYSTEM SYSTEM on [...] Magnesium [Mass/Vol] 1.8 mg/dL Normal 1.8-2.4 [facility] ([place]) Comment on above: Performed By: #### L IPID, ADIFF, ANEU, CMP, CBC, GFR #### [address] [address] .Auto Diffon 07-02-2023 Basophil, Absolute 0.0 10 3/mcL Normal 0.0-0.2 [facility] ([place]) Comment on above: Performed By: #### A DIFF, MG, ANEU, GFR, BMP, CBC #### [address] [address] Basophils/100 WBC (Bld) 0.7 % Normal 0.0-2.5 [facility] ([place]) Comment on above: Performed By: #### A DIFF, MG, ANEU, GFR, BMP, CBC #### [address] [address] Eosinophil, Absolute 0.3 10 3/mcL Normal 0.0-0.4 [facility] ([place]) Comment on above: Performed By: #### A DIFF, MG, ANEU, GFR, BMP, CBC #### [address] [address] Eosinophils/100 WBC (Bld) 5.6 % Normal 0.0-7.0 [facility] ([place]) Comment on above: Performed By: #### A DIFF, MG, ANEU, GFR, BMP, CBC #### [address] [address] Lymphocyte, Absolute 1.8 10 3/mcL Normal 0.8-3.9 [facility] ([place]) Comment on above: Performed By: #### A DIFF, MG, ANEU, GFR, BMP, CBC #### [address] [address] Lymphocytes/100 WBC (Bld) 33.2 % Normal 10.0-50.0 [facility] ([place]) Comment on above: Performed By: #### A DIFF, MG, ANEU, GFR, BMP, CBC #### [address] [address] Monocyte, Absolute 0.4 10 3/mcL Normal 0.2-1.0 [facility] ([place]) Comment on above: Performed By: #### A DIFF, MG, ANEU, GFR, BMP, CBC #### [address] [address] Monocytes/100 WBC (Bld) 7.8 % Normal 1.7-13.0 [facility] ([place]) Comment on above: Performed By: #### A DIFF, MG, ANEU, GFR, BMP, CBC #### [address] [address] Neutrophils/100 WBC (Bld) 52.7 % Normal 37.0-80.0 [facility] ([place]) Comment on above: Performed By: #### A DIFF, MG, ANEU, GFR, BMP, CBC #### [address] [address] .GFRon 07-02-2023 GFR 85 ml/min/1.73sqm Normal [facility] ([place]) Comment on above: Result Comment: GFR Population [...] IPID, ADIFF, ANEU, CMP, CBC, GFR #### [address] [address] GFR Non- 70 ml/min/1.73sqm Normal [facility] ([place]) Comment on above: Result Comment: GFR Population [...] IPID, ADIFF, ANEU, CMP, CBC, GFR #### [address] [address] .NEUABSon 07-02-2023 Neutrophil, Absolute 2.9 10 3/mcL Normal 2.9-6.2 [facility] ([place]) Comment on above: Performed By: #### A DIFF, MG, ANEU, GFR, BMP, CBC #### [address] [address] BMPon 07-02-2023 BUN/Creatinine Ratio 11 ratio Normal 7-27 [facility] ([place]) Comment on above: Performed By: #### A DIFF, MG, ANEU, GFR, BMP, CBC #### [address] [address] Calcium [Mass/Vol] 8.5 mg/dL Normal 8.4-10.2 [facility] ([place]) Comment on above: Performed By: #### A DIFF, MG, ANEU, GFR, BMP, CBC #### [address] [address] Chloride [Moles/Vol] 102 mmol/L Normal 98-107 [facility] ([place]) Comment on above: Performed By: #### A DIFF, MG, ANEU, GFR, BMP, CBC #### [address] [address] CO2 [Moles/Vol] 31 mmol/L Normal 23-31 [facility] ([place] Comment on above: Performed By: #### A DIFF, MG, ANEU, GFR, BMP, CBC #### [address] [address] Creatinine [Mass/Vol] 0.79 mg/dL Normal 0.55-1.02 [facility] ([place]) Comment on above: Performed By: #### A DIFF, MG, ANEU, GFR, BMP, CBC #### [address] [address] Electrolyte Balance 5.0 mEq/L Normal 4.0-15.0 [facility] ([place]) Comment on above: Performed By: #### A DIFF, MG, ANEU, GFR, BMP, CBC #### [place] [address] Glucose [Mass/Vol] 144 mg/dL High 83-110 [facility] ([place]) Comment on above: Performed By: #### A DIFF, MG, ANEU, GFR, BMP, CBC #### [place] [address] Potassium [Moles/Vol] 3.9 mmol/L Normal 3.5-5.1 [facility] ([place]) Comment on above: Performed By: #### A DIFF, MG, ANEU, GFR, BMP, CBC #### [address] [address] Sodium [Moles/Vol] 138 mmol/L Normal 136-145 [facility] ([place]) Comment on above: Performed By: #### A DIFF, MG, ANEU, GFR, BMP, CBC #### [address] [address] Urea nitrogen [Mass/Vol] 9 mg/dL Normal 7-18 [facility] ([place] Comment on above: Performed By: #### A DIFF, MG, ANEU, GFR, BMP, CBC #### [address] [address] CBCon 07-02-2023 Erythrocyte distribution width (RBC) [Ratio] 14.6 % High 11.5-14.5 [facility] ([place]) Comment on above: Performed By: #### A DIFF, MG, ANEU, GFR, BMP, CBC #### [address] [address] Hematocrit (Bld) [Volume fraction] 35.7 % Low 37.0-47.0 [facility] ([place] Comment on above: Performed By: #### A DIFF, MG, ANEU, GFR, BMP, CBC #### [place] [id number] Hgb 11.3 G/dL Low 12.0-16.0 [facility] ([place]) Comment on above: Performed By: #### A DIFF, MG, ANEU, GFR, BMP, CBC #### [place] [address] MCH (RBC) [Entitic mass] 28.1 pg Normal 27.0-31.2 [facility] ([place] Comment on above: Performed By: #### A DIFF, MG, ANEU, GFR, BMP, CBC #### [place] [address] MCHC 31.7 G/dL Low 33.0-37.0 [facility] ([place] Comment on above: Performed By: #### A DIFF, MG, ANEU, GFR, BMP, CBC #### [address] [address] MCV (RBC) [Entitic vol] 88.6 fL Normal 80.0-94.0 [facility] ([place]) Comment on above: Performed By: #### A DIFF, MG, ANEU, GFR, BMP, CBC #### [address] [address] Platelet 159 10 3/mcL Normal 130-400 [facility] ([place] Comment on above: Performed By: #### A DIFF, MG, ANEU, GFR, BMP, CBC #### [address] [address] Platelet mean volume (Bld) [Entitic vol] 6.6 fL Low 7.4-10.4 [facility] ([place]) Comment on above: Performed By: #### A DIFF, MG, ANEU, GFR, BMP, CBC #### [place] [address] [place], [place] [address] RBC 4.03 10 6/mcL Low 4.20-5.40 [facility] ([place]) Comment on above: Performed By: #### A DIFF, MG, ANEU, GFR, BMP, CBC #### [place] [address] [place], [place] [address] WBC 5.5 10 3/mcL Normal 4.6-10.8 [facility] ([place]) Comment on above: Performed By: #### A DIFF, MG, ANEU, GFR, BMP, CBC #### [place] [address] [place], [place] [address] LABORATORYOrdered By: SYSTEM SYSTEM on 07-02-2023 Basophil, [...] Magnesium [Mass/Vol] 1.7 mg/dL Low 1.8-2.4 [facility] ([place]) Comment on above: Performed By: #### L IPID, ADIFF, ANEU, CMP, CBC, GFR #### [place] [address] .Auto Diffon 07-01-2023 Basophil, Absolute 0.0 10 3/mcL Normal 0.0-0.2 [facility] ([place] Comment on above: Performed By: #### L IPID, ADIFF, ANEU, CMP, CBC, GFR #### [address] [address] Basophils/100 WBC (Bld) 0.5 % Normal 0.0-2.5 [facility] ([place]) Comment on above: Performed By: #### L IPID, ADIFF, ANEU, CMP, CBC, GFR #### [address] [address] Eosinophil, Absolute 0.4 10 3/mcL Normal 0.0-0.4 [facility] ([place]) Comment on above: Performed By: #### L IPID, ADIFF, ANEU, CMP, CBC, GFR #### [address] [address] Eosinophils/100 WBC (Bld) 5.7 % Normal 0.0-7.0 [facility] ([place]) Comment on above: Performed By: #### L IPID, ADIFF, ANEU, CMP, CBC, GFR #### [address] [address] Lymphocyte, Absolute 1.9 10 3/mcL Normal 0.8-3.9 [facility] ([place]) Comment on above: Performed By: #### L IPID, ADIFF, ANEU, CMP, CBC, GFR #### [address] [address] Lymphocytes/100 WBC (Bld) 28.0 % Normal 10.0-50.0 [facility] ([place]) Comment on above: Performed By: #### L IPID, ADIFF, ANEU, CMP, CBC, GFR #### [address] [address] Monocyte, Absolute 0.5 10 3/mcL Normal 0.2-1.0 [facility] ([place]) Comment on above: Performed By: #### L IPID, ADIFF, ANEU, CMP, CBC, GFR #### [address] [address] Monocytes/100 WBC (Bld) 6.9 % Normal 1.7-13.0 [facility] ([place]) Comment on above: Performed By: #### L IPID, ADIFF, ANEU, CMP, CBC, GFR #### [place] [address] [place], [place] [address] Neutrophils/100 WBC (Bld) 58.9 % Normal 37.0-80.0 [facility] ([place] Comment on above: Performed By: #### L IPID, ADIFF, ANEU, CMP, CBC, GFR #### [place] [address] [place], [place] [address] .GFRon 07-01-2023 GFR 73 ml/min/1.73sqm Normal [facility] ([place]) Comment on above: Result Comment: GFR Population [...] ADIFF, ANEU, CMP, CBC, GFR #### [place] [address] [place], [place] [address] GFR Non- 60 ml/min/1.73sqm Normal [facility] ([place]) Comment on above: Result Comment: GFR Population [...] IPID, ADIFF, ANEU, CMP, CBC, GFR #### [address] [address] .NEUABSon 07-01-2023 Neutrophil, Absolute 4.1 10 3/mcL Normal 2.9-6.2 [facility] ([place]) Comment on above: Performed By: #### L IPID, ADIFF, ANEU, CMP, CBC, GFR #### [address] [address] BMPon 07-01-2023 BUN/Creatinine Ratio 12 ratio Normal 7-27 [facility] ([place]) Comment on above: Performed By: #### L IPID, ADIFF, ANEU, CMP, CBC, GFR #### [address] [address] Calcium [Mass/Vol] 8.5 mg/dL Normal 8.4-10.2 [facility] ([place]) Comment on above: Performed By: #### L IPID, ADIFF, ANEU, CMP, CBC, GFR #### [address] [address] Chloride [Moles/Vol] 103 mmol/L Normal 98-107 [facility] ([place]) Comment on above: Performed By: #### L IPID, ADIFF, ANEU, CMP, CBC, GFR #### [address] [address] CO2 [Moles/Vol] 32 mmol/L High 23-31 [facility] ([place]) Comment on above: Performed By: #### L IPID, ADIFF, ANEU, CMP, CBC, GFR #### [address] [address] Creatinine [Mass/Vol] 0.90 mg/dL Normal 0.55-1.02 [facility] ([place]) Comment on above: Performed By: #### L IPID, ADIFF, ANEU, CMP, CBC, GFR #### [address] [address] Electrolyte Balance 5.0 mEq/L Normal 4.0-15.0 [facility] ([place]) Comment on above: Performed By: #### L IPID, ADIFF, ANEU, CMP, CBC, GFR #### [address] [address] Glucose [Mass/Vol] 138 mg/dL High 83-110 [facility] ([place]) Comment on above: Performed By: #### L IPID, ADIFF, ANEU, CMP, CBC, GFR #### [address] [address] Potassium [Moles/Vol] 4.0 mmol/L Normal 3.5-5.1 [facility] ([place]) Comment on above: Performed By: #### L IPID, ADIFF, ANEU, CMP, CBC, GFR #### [address] [address] Sodium [Moles/Vol] 140 mmol/L Normal 136-145 [facility] ([place]) Comment on above: Performed By: #### L IPID, ADIFF, ANEU, CMP, CBC, GFR #### [address] [address] Urea nitrogen [Mass/Vol] 11 mg/dL Normal 7-18 [facility] ([place]) Comment on above: Performed By: #### L IPID, ADIFF, ANEU, CMP, CBC, GFR #### [address] [address] CBCon 07-01-2023 Erythrocyte distribution width (RBC) [Ratio] 14.6 % High 11.5-14.5 [facility] ([place]) Comment on above: Performed By: #### L IPID, ADIFF, ANEU, CMP, CBC, GFR #### [address] [address] Hematocrit (Bld) [Volume fraction] 36.2 % Low 37.0-47.0 [facility] ([place]) Comment on above: Performed By: #### L IPID, ADIFF, ANEU, CMP, CBC, GFR #### [address] [address] Hgb 11.6 G/dL Low 12.0-16.0 [facility] ([place]) Comment on above: Performed By: #### L IPID, ADIFF, ANEU, CMP, CBC, GFR #### [place] [address] MCH (RBC) [Entitic mass] 28.1 pg Normal 27.0-31.2 [facility] ([place]) Comment on above: Performed By: #### L IPID, ADIFF, ANEU, CMP, CBC, GFR #### [place] [address] MCHC 32.0 G/dL Low 33.0-37.0 [facility] ([place]) Comment on above: Performed By: #### L IPID, ADIFF, ANEU, CMP, CBC, GFR #### [place] [address] MCV (RBC) [Entitic vol] 87.8 fL Normal 80.0-94.0 [facility] ([place]) Comment on above: Performed By: #### L IPID, ADIFF, ANEU, CMP, CBC, GFR #### [place] [id number] Platelet 170 10 3/mcL Normal 130-400 [facility] ([place]) Comment on above: Performed By: #### L IPID, ADIFF, ANEU, CMP, CBC, GFR #### [address] [address] Platelet mean volume (Bld) [Entitic vol] 6.4 fL Low 7.4-10.4 [facility] ([place]) Comment on above: Performed By: #### L IPID, ADIFF, ANEU, CMP, CBC, GFR #### [place] [address] RBC 4.12 10 6/mcL Low 4.20-5.40 [facility] ([place]) Comment on above: Performed By: #### L IPID, ADIFF, ANEU, CMP, CBC, GFR #### [address] [address] WBC 6.9 10 3/mcL Normal 4.6-10.8 [facility] ([place]) Comment on above: Performed By: #### L IPID, ADIFF, ANEU, CMP, CBC, GFR #### [address] [address] MGon 07-01-2023 Magnesium [Mass/Vol] 1.5 mg/dL Low 1.8-2.4 [facility] ([place] Comment on above: Performed By: #### L IPID, ADIFF, ANEU, CMP, CBC, GFR #### [address] [address] .Auto Diffon 06-30-2023 Basophil, Absolute 0.0 10 3/mcL Normal 0.0-0.2 [facility]) Comment on above: Performed By: #### L IPID, ADIFF, ANEU, CMP, CBC, GFR #### [address] [address] Basophils/100 WBC (Bld) 0.4 % Normal 0.0-2.5 [facility] ([place]) Comment on above: Performed By: #### L IPID, ADIFF, ANEU, CMP, CBC, GFR #### [address] [address] Eosinophil, Absolute 0.5 10 3/mcL High 0.0-0.4 [facility] ([place]) Comment on above: Performed By: #### L IPID, ADIFF, ANEU, CMP, CBC, GFR #### [address] [address] Eosinophils/100 WBC (Bld) 4.7 % Normal 0.0-7.0 [facility] ([place]) Comment on above: Performed By: #### L IPID, ADIFF, ANEU, CMP, CBC, GFR #### [address] [place] [address] Lymphocyte, Absolute 1.7 10 3/mcL Normal 0.8-3.9 [facility] ([place]) Comment on above: Performed By: #### L IPID, ADIFF, ANEU, CMP, CBC, GFR #### [address] [address] Lymphocytes/100 WBC (Bld) 17.7 % Normal 10.0-50.0 [facility] ([place]) Comment on above: Performed By: #### L IPID, ADIFF, ANEU, CMP, CBC, GFR #### [address] [address] Monocyte, Absolute 0.5 10 3/mcL Normal 0.2-1.0 [facility] ([place]) Comment on above: Performed By: #### L IPID, ADIFF, ANEU, CMP, CBC, GFR #### [address] [address] Monocytes/100 WBC (Bld) 5.4 % Normal 1.7-13.0 [facility] ([place] Comment on above: Performed By: #### L IPID, ADIFF, ANEU, CMP, CBC, GFR #### [address] [address] Neutrophils/100 WBC (Bld) 71.8 % Normal 37.0-80.0 [facility] ([place]) Comment on above: Performed By: #### L IPID, ADIFF, ANEU, CMP, CBC, GFR #### [address] [address] .GFRon 06-30-2023 GFR 75 ml/min/1.73sqm Normal [facility] ([place]) Comment on above: Result Comment: GFR Population [...] IPID, ADIFF, ANEU, CMP, CBC, GFR #### [address] [address] GFR Non- 62 ml/min/1.73sqm Normal [facility] ([place] Comment on above: Result Comment: GFR Population [...] IPID, ADIFF, ANEU, CMP, CBC, GFR #### [address] [address] .MDWon 06-30-2023 Monocyte Distribution Width 17.82 Normal 0.00-20.00 [facility] ([place]) Comment on above: Result Comment: For ED adult patients suspected of sepsis, MDW<=20.0 does not rule out sepsis or risk of sepsis Performed By: #### L IPID, ADIFF, ANEU, CMP, CBC, GFR #### [address] [address] .NEUABSon 06-30-2023 Neutrophil, Absolute 7.1 10 3/mcL High 2.9-6.2 [facility] ([place] Comment on above: Performed By: #### L IPID, ADIFF, ANEU, CMP, CBC, GFR #### [address] [address] BMPon 06-30-2023 BUN/Creatinine Ratio 10 ratio Normal 7-27 [facility] ([place] Comment on above: Performed By: #### L IPID, ADIFF, ANEU, CMP, CBC, GFR #### [address] [address] Calcium [Mass/Vol] 9.0 mg/dL Normal 8.4-10.2 [facility] ([place]) Comment on above: Performed By: #### L IPID, ADIFF, ANEU, CMP, CBC, GFR #### [address] [address] Chloride [Moles/Vol] 100 mmol/L Normal 98-107 [facility] ([place] Comment on above: Performed By: #### L IPID, ADIFF, ANEU, CMP, CBC, GFR #### [place] [address] CO2 [Moles/Vol] 33 mmol/L High 23-31 [facility] ([place]) Comment on above: Performed By: #### L IPID, ADIFF, ANEU, CMP, CBC, GFR #### [place] [address] Creatinine [Mass/Vol] 0.88 mg/dL Normal 0.55-1.02 [facility] ([place]) Comment on above: Performed By: #### L IPID, ADIFF, ANEU, CMP, CBC, GFR #### [address] [address] Electrolyte Balance 6.0 mEq/L Normal 4.0-15.0 [facility] ([place]) Comment on above: Performed By: #### L IPID, ADIFF, ANEU, CMP, CBC, GFR #### [place] [address] Glucose [Mass/Vol] 147 mg/dL High 83-110 [facility] ([place]) Comment on above: Performed By: #### L IPID, ADIFF, ANEU, CMP, CBC, GFR #### [address] [address] Potassium [Moles/Vol] 3.8 mmol/L Normal 3.5-5.1 [facility] ([place]) Comment on above: Performed By: #### L IPID, ADIFF, ANEU, CMP, CBC, GFR #### [address] [address] Sodium [Moles/Vol] 139 mmol/L Normal 136-145 [facility] ([place]) Comment on above: Performed By: #### L IPID, ADIFF, ANEU, CMP, CBC, GFR #### [address] [address] Urea nitrogen [Mass/Vol] 9 mg/dL Normal 7-18 [facility] ([place]) Comment on above: Performed By: #### L IPID, ADIFF, ANEU, CMP, CBC, GFR #### [address] [address] CBCon 06-30-2023 Erythrocyte distribution width (RBC) [Ratio] 14.6 % High 11.5-14.5 [facility] ([place]) Comment on above: Performed By: #### L IPID, ADIFF, ANEU, CMP, CBC, GFR #### [address] [address] Hematocrit (Bld) [Volume fraction] 42.0 % Normal 37.0-47.0 [facility] ([place]) Comment on above: Performed By: #### L IPID, ADIFF, ANEU, CMP, CBC, GFR #### [address] [address] Hgb 13.4 G/dL Normal 12.0-16.0 [facility] ([place]) Comment on above: Performed By: #### L IPID, ADIFF, ANEU, CMP, CBC, GFR #### [address] [address] MCH (RBC) [Entitic mass] 28.4 pg Normal 27.0-31.2 [facility] ([place]) Comment on above: Performed By: #### L IPID, ADIFF, ANEU, CMP, CBC, GFR #### [address] [address] MCHC 32.0 G/dL Low 33.0-37.0 [facility] ([place]) Comment on above: Performed By: #### L IPID, ADIFF, ANEU, CMP, CBC, GFR #### [address] [address] MCV (RBC) [Entitic vol] 88.5 fL Normal 80.0-94.0 [facility] ([place]) Comment on above: Performed By: #### L IPID, ADIFF, ANEU, CMP, CBC, GFR #### [address] [address] Platelet 188 10 3/mcL Normal 130-400 [facility] ([place] Comment on above: Performed By: #### L IPID, ADIFF, ANEU, CMP, CBC, GFR #### [place] [address] Platelet mean volume (Bld) [Entitic vol] 6.2 fL Low 7.4-10.4 [facility] ([place]) Comment on above: Performed By: #### L IPID, ADIFF, ANEU, CMP, CBC, GFR #### [address] [address] RBC 4.74 10 6/mcL Normal 4.20-5.40 [facility] ([place]) Comment on above: Performed By: #### L IPID, ADIFF, ANEU, CMP, CBC, GFR #### [address] [address] WBC 9.9 10 3/mcL Normal 4.6-10.8 [facility] ([place]) Comment on above: Performed By: #### L IPID, ADIFF, ANEU, CMP, CBC, GFR #### [place] [id number] LABORATORYOrdered By: SYSTEM SYSTEM on 06-30-2023 Monocyte distribution width Auto (Bld) [Entitic vol] 17.82 1 Invalid Interpretation Code 0.00 - 20.00 AO Workflow SS Comment on above: Result Comment: For ED adult patients suspected of sepsis, MDW<=20.0 does not rule out sepsis or risk of sepsis [facility] 06-30-2023 U Creatinine 90.7 mg/dL Normal 28.0-117.0 [facility] ([place] Comment on above: Performed By: #### L IPID, ADIFF, ANEU, CMP, CBC, GFR #### [place] [address] [place], [place] [address] U Microalb 1927 mcg/dL Normal [facility] ([place] Comment on above: Performed By: #### L IPID, ADIFF, ANEU, CMP, CBC, GFR #### [place] [address] [place], [place] [address] U Ratio Alb/Cre 21 mcg/mg Normal 0-30 [facility] ([place] Comment on above: Performed By: #### L IPID, ADIFF, ANEU, CMP, CBC, GFR #### [place] [address] [place], [place] [address] XR ANKLE AND FOOT 6 VIEWS [facility] 06-30-2023 XR ANKLE AND FOOT 6 [...] 06/30/2023 4:00:26 PM Ordering Provider: VICENTEALFONZO [facility] [place] XR KNEE 1 OR 2 VIEWS LEFTon [...] 06/30/2023 4:01:46 PM Ordering Provider: VICENTE [facility] ([place]) .Auto Diffon 02-05-2023 Basophil, Absolute 0.1 10 3/mcL Normal 0.0-0.2 [facility]) Comment on above: Performed By: #### L IPID, ADIFF, ANEU, CMP, CBC, GFR #### [address] [address] Basophils/100 WBC (Bld) 0.7 % Normal 0.0-2.5 [facility] ([place]) Comment on above: Performed By: #### L IPID, ADIFF, ANEU, CMP, CBC, GFR #### [place] [address] [place], [place] [address] Eosinophil, Absolute 0.7 10 3/mcL High 0.0-0.4 [facility] ([place] Comment on above: Performed By: #### L IPID, ADIFF, ANEU, CMP, CBC, GFR #### [address] [address] Eosinophils/100 WBC (Bld) 8.8 % High 0.0-7.0 [facility] ([place]) Comment on above: Performed By: #### L IPID, ADIFF, ANEU, CMP, CBC, GFR #### [address] [address] Lymphocyte, Absolute 2.8 10 3/mcL Normal 0.8-3.9 [facility] ([place] Comment on above: Performed By: #### L IPID, ADIFF, ANEU, CMP, CBC, GFR #### [address] [address] Lymphocytes/100 WBC (Bld) 34.0 % Normal 10.0-50.0 [facility] ([place] Comment on above: Performed By: #### L IPID, ADIFF, ANEU, CMP, CBC, GFR #### [address] [address] Monocyte, Absolute 0.6 10 3/mcL Normal 0.2-1.0 [facility] ([place] Comment on above: Performed By: #### L IPID, ADIFF, ANEU, CMP, CBC, GFR #### [address] [address] Monocytes/100 WBC (Bld) 7.3 % Normal 1.7-13.0 [facility] ([place] Comment on above: Performed By: #### L IPID, ADIFF, ANEU, CMP, CBC, GFR #### [address] [address] Neutrophils/100 WBC (Bld) 49.2 % Normal 37.0-80.0 [facility] ([place] Comment on above: Performed By: #### L IPID, ADIFF, ANEU, CMP, CBC, GFR #### [address] [address] .GFRon 02-05-2023 GFR Non- 63 ml/min/1.73sqm Normal [facility] ([place] Comment on above: Result Comment: GFR Population [...] IPID, ADIFF, ANEU, CMP, CBC, GFR #### [address] [address] GFR 76 ml/min/1.73sqm Normal [facility] ([place] Comment on above: Result Comment: GFR Population [...] IPID, ADIFF, ANEU, CMP, CBC, GFR #### [address] [address] .NEUABSon 02-05-2023 Neutrophil, Absolute 4.1 10 3/mcL Normal 2.9-6.2 [facility] ([place] Comment on above: Performed By: #### L IPID, ADIFF, ANEU, CMP, CBC, GFR #### [address] [address] CBCon 02-05-2023 Erythrocyte distribution width (RBC) [Ratio] 14.1 % Normal 11.5-14.5 [facility] ([place] Comment on above: Performed By: #### L IPID, ADIFF, ANEU, CMP, CBC, GFR #### [place] [address] Hematocrit (Bld) [Volume fraction] 45.2 % Normal 37.0-47.0 [facility] ([place] Comment on above: Performed By: #### L IPID, ADIFF, ANEU, CMP, CBC, GFR #### [place] [address] Hgb 14.4 G/dL Normal 12.0-16.0 [facility] ([place] Comment on above: Performed By: #### L IPID, ADIFF, ANEU, CMP, CBC, GFR #### [place] [address] MCH (RBC) [Entitic mass] 26.9 pg Low 27.0-31.2 [facility] ([place] Comment on above: Performed By: #### L IPID, ADIFF, ANEU, CMP, CBC, GFR #### [place] [address] MCHC 31.8 G/dL Low 33.0-37.0 [facility] ([place] Comment on above: Performed By: #### L IPID, ADIFF, ANEU, CMP, CBC, GFR #### [place] [id number] MCV (RBC) [Entitic vol] 84.7 fL Normal 80.0-94.0 [facility] ([place] Comment on above: Performed By: #### L IPID, ADIFF, ANEU, CMP, CBC, GFR #### [place] [id number] Platelet 237 10 3/mcL Normal 130-400 [facility] ([place]) Comment on above: Performed By: #### L IPID, ADIFF, ANEU, CMP, CBC, GFR #### [place] [address] Platelet mean volume (Bld) [Entitic vol] 6.5 fL Low 7.4-10.4 [facility] ([place]) Comment on above: Performed By: #### L IPID, ADIFF, ANEU, CMP, CBC, GFR #### [address] [address] RBC 5.34 10 6/mcL Normal 4.20-5.40 [facility] ([place]) Comment on above: Performed By: #### L IPID, ADIFF, ANEU, CMP, CBC, GFR #### [address] [address] WBC 8.3 10 3/mcL Normal 4.6-10.8 [facility] ([place]) Comment on above: Performed By: #### L IPID, ADIFF, ANEU, CMP, CBC, GFR #### [address] [address] CMPon 02-05-2023 Albumin Level 3.9 G/dL Normal 3.4-4.8 [facility] ([place]) Comment on above: Performed By: #### L IPID, ADIFF, ANEU, CMP, CBC, GFR #### [place] [id number] Albumin/Globulin [Mass ratio] 1.3 {ratio} Normal 1.1-2.5 [facility] ([place]) Comment on above: Performed By: #### L IPID, ADIFF, ANEU, CMP, CBC, GFR #### [address] [address] ALP [Catalytic activity/Vol] 65 U/L Normal 40-135 [facility] ([place]) Comment on above: Performed By: #### L IPID, ADIFF, ANEU, CMP, CBC, GFR #### [address] [address] ALT [Catalytic activity/Vol] 20 U/L Normal 14-59 [facility] ([place]) Comment on above: Performed By: #### L IPID, ADIFF, ANEU, CMP, CBC, GFR #### [address] [address] AST [Catalytic activity/Vol] 19 U/L Normal 10-40 [facility] ([place]) Comment on above: Performed By: #### L IPID, ADIFF, ANEU, CMP, CBC, GFR #### [address] [address] Bili Total 0.7 mg/dL Normal 0.2-1.0 [facility] ([place]) Comment on above: Result Comment: Use of this assay is not recommended for patients undergoing treatment with eltrombopag due to the potential for falsely elevated results. Performed By: #### L IPID, ADIFF, ANEU, CMP, CBC, GFR #### [address] [address] BUN/Creatinine Ratio 14 ratio Normal 7-27 [facility] ([place]) Comment on above: Performed By: #### L IPID, ADIFF, ANEU, CMP, CBC, GFR #### [address] [address] Calcium [Mass/Vol] 10.1 mg/dL Normal 8.4-10.2 [facility] ([place]) Comment on above: Performed By: #### L IPID, ADIFF, ANEU, CMP, CBC, GFR #### [address] [address] Chloride [Moles/Vol] 100 mmol/L Normal 98-107 [facility] ([place]) Comment on above: Performed By: #### L IPID, ADIFF, ANEU, CMP, CBC, GFR #### [address] [address] CO2 [Moles/Vol] 33 mmol/L High 23-31 [facility] ([place]) Comment on above: Performed By: #### L IPID, ADIFF, ANEU, CMP, CBC, GFR #### [address] [address] Creatinine [Mass/Vol] 0.87 mg/dL Normal 0.55-1.02 [facility] ([place]) Comment on above: Performed By: #### L IPID, ADIFF, ANEU, CMP, CBC, GFR #### [address] [address] Electrolyte Balance 8.0 mEq/L Normal 4.0-15.0 [facility] ([place]) Comment on above: Performed By: #### L IPID, ADIFF, ANEU, CMP, CBC, GFR #### [address] [address] Globulin 3.0 G/dL Normal [facility] ([place]) Comment on above: Performed By: #### L IPID, ADIFF, ANEU, CMP, CBC, GFR #### [address] [address] Glucose [Mass/Vol] 127 mg/dL High 83-110 [facility] ([place]) Comment on above: Performed By: #### L IPID, ADIFF, ANEU, CMP, CBC, GFR #### [address] [address] Potassium [Moles/Vol] 4.7 mmol/L Normal 3.5-5.1 [facility] ([place]) Comment on above: Performed By: #### L IPID, ADIFF, ANEU, CMP, CBC, GFR #### [address] [address] Sodium [Moles/Vol] 141 mmol/L Normal 136-145 [facility] ([place]) Comment on above: Performed By: #### L IPID, ADIFF, ANEU, CMP, CBC, GFR #### [address] [address] Total Protein 6.9 G/dL Normal 6.4-8.2 [facility] ([place]) Comment on above: Performed By: #### L IPID, ADIFF, ANEU, CMP, CBC, GFR #### [address] [address] Urea nitrogen [Mass/Vol] 12 mg/dL Normal 7-18 [facility] ([place]) Comment on above: Performed By: #### L IPID, ADIFF, ANEU, CMP, CBC, GFR #### [address] [place], [place] [address] LABORATORYOrdered By: SYSTEM SYSTEM on 02-05-2023 Albumin [...] 02-05-2023 Cholesterol [Mass/Vol] 147 mg/dL Normal 0-200 [facility] ([place]) Comment on above: Result Comment: Chol esterol Reference Interval: Less than 200 Desirable 200-239 Borderline high risk 240 and above High risk Performed By: #### L IPID, ADIFF, ANEU, CMP, CBC, GFR #### [address] [place], [place] [address] Cholesterol in HDL [Mass/Vol] 59 mg/dL Normal 40-60 [facility] ([place]) Comment on above: Performed By: #### L IPID, ADIFF, ANEU, CMP, CBC, GFR #### [facility] [address] [place], [place] [address] Cholesterol in LDL [Mass/Vol] 54 mg/dL Normal 0-130 [facility] ([place]) Comment on above: Performed By: #### L IPID, ADIFF, ANEU, CMP, CBC, GFR #### [facility] [address] [place], [place] [address] Triglyceride [Mass/Vol] 172 mg/dL High 0-150 [facility] ([place]) Comment on above: Result Comment: Trig lyceride Reference Interval: Less than 150 Normal 150-199 Borderline high risk 200-499 High risk 500 or higher Very high risk Performed By: #### L IPID, ADIFF, ANEU, CMP, CBC, GFR #### [address] [address] LABORATORYOrdered By: Karli Benites on 01-29-2022 Albumin [...] Facility 02-06-2024 20:00-0400 Body temperature 98 [degF] [facility] 02-06-2024 20:00-0400 Diastolic blood pressure 73 mm[Hg] [facility] 02-06-2024 20:00-0400 Heart rate 68 /min [facility] 02-06-2024 20:00-0400 Respiratory rate 18 /min [facility] 02-06-2024 20:00-0400 SaO2% (BldA) [Mass fraction] 97 % [facility] 02-06-2024 20:00-0400 Systolic blood pressure 173 mm[Hg] [facility] 02-06-2024 15:49-0400 Body height 175.26 cm [facility] 02-06-2024 15:49-0400 Body mass index (BMI) [Ratio] 38.9 kg/m2 [facility] 02-06-2024 15:49-0400 Body weight 119.74 kg [facility] 12-09-2023 10:13-0500 Body weight 120.2 kg Tete FITZGERALD Work Phone: [facility] 12-09-2023 10:13-0500 Diastolic blood pressure 66 mm[Hg] Tete FITZGERALD Work Phone: [facility] 12-09-2023 10:13-0500 Heart rate 69 /min Tete FITZGERALD Work Phone: [facility] 12-09-2023 10:13-0500 Systolic blood pressure 190 mm[Hg] Tete FITZGERALD Work Phone: [facility] 07-16-2023 10:53-0400 Body height 167.64 cm TONE Brewer NP Work Phone: [facility] 07-16-2023 10:53-0400 Body mass index (BMI) [Ratio] 45.8 kg/m2 [employer] APPRAISER-C Laci Beltranwinnie L[employer]ENSED [employer] APPRAISER Work Phone: [facility] 07-16-2023 10:53-0400 Body weight 128.82 kg [employer] APPRAISER-C Laci Osman LICENSED [employer] APPRAISER Work Phone: [facility] 07-04-2023 19:10-0400 Body temperature 98.24 [degF] ROHAN CASPERER COMPUTER SUPPORT ANALYST-HEAVY MOBILE EQUIPMENT OPERATOR [facility] 07-04-2023 19:10-0400 Diastolic Blood Pressure Non-Invasive 46 1 ROHAN MCDOWELL COMPUTER SUPPORT ANALYST-HEAVY MOBILE EQUIPMENT OPERATOR [facility] 07-04-2023 19:10-0400 Heart rate 78 /min ROHAN MCDOWELL COMPUTER SUPPORT ANALYST-HEAVY MOBILE EQUIPMENT OPERATOR [facility] 07-04-2023 19:10-0400 Reason For Taking VItal Signs ROHAN MCDOWELL COMPUTER SUPPORT ANALYST-HEAVY MOBILE EQUIPMENT OPERATOR [facility] 07-04-2023 19:10-0400 Respiratory rate 18 /min ROHAN JULY COMPUTER SUPPORT ANALYST-HEAVY MOBILE EQUIPMENT OPERATOR [facility] 07-04-2023 19:10-0400 Systolic Blood Pressure Non-Invasive 142 1 ROHAN MCDOWELL COMPUTER SUPPORT ANALYST-HEAVY MOBILE EQUIPMENT OPERATOR [facility] 07-04-2023 16:39-0400 Diastolic Blood Pressure Non-Invasive 60 1 ROHAN CASPERER COMPUTER SUPPORT ANALYST-HEAVY MOBILE EQUIPMENT OPERATOR [facility] 07-04-2023 16:39-0400 Systolic Blood Pressure Non-Invasive 158 1 ROHAN CASPERER COMPUTER SUPPORT ANALYST-HEAVY MOBILE EQUIPMENT OPERATOR [facility] 07-04-2023 16:22-0400 Body temperature 97.88 [degF] ROHAN CASPERER COMPUTER SUPPORT ANALYST-HEAVY MOBILE EQUIPMENT OPERATOR [facility] 07-04-2023 16:22-0400 Diastolic Blood Pressure Non-Invasive 121 1 ROHAN KAPPER COMPUTER SUPPORT ANALYST-HEAVY MOBILE EQUIPMENT OPERATOR [facility] 07-04-2023 16:22-0400 Heart rate 72 /min ROHAN KAPPER COMPUTER SUPPORT ANALYST-HEAVY MOBILE EQUIPMENT OPERATOR [facility] 07-04-2023 16:22-0400 Respiratory rate 20 /min ROHAN KAPPER COMPUTER SUPPORT ANALYST-HEAVY MOBILE EQUIPMENT OPERATOR [facility] 07-04-2023 16:22-0400 Systolic Blood Pressure Non-Invasive 152 1 ROHAN KAPPER COMPUTER SUPPORT ANALYST-HEAVY MOBILE EQUIPMENT OPERATOR [facility] 07-04-2023 12:17-0400 Body temperature 97.88 [degF] ROHAN KAPPER COMPUTER SUPPORT ANALYST-HEAVY MOBILE EQUIPMENT OPERATOR [facility] 07-04-2023 12:17-0400 Heart rate 72 /min ROHAN KAPPER COMPUTER SUPPORT ANALYST-HEAVY MOBILE EQUIPMENT OPERATOR [facility] 07-04-2023 12:17-0400 Respiratory rate 20 /min ROHAN KAPPER COMPUTER SUPPORT ANALYST-HEAVY MOBILE EQUIPMENT OPERATOR [facility] 07-04-2023 11:20-0400 Heart rate 74 /min ROHAN KAPPER COMPUTER SUPPORT ANALYST-HEAVY MOBILE EQUIPMENT OPERATOR [facility] 07-04-2023 07:54-0400 Heart rate 74 /min ROHAN KAPPER COMPUTER SUPPORT ANALYST-HEAVY MOBILE EQUIPMENT OPERATOR [facility] 07-04-2023 04:11-0400 Heart rate 82 /min ROHAN KAPPER COMPUTER SUPPORT ANALYST-HEAVY MOBILE EQUIPMENT OPERATOR [facility] 07-04-2023 04:11-0400 Reason For Taking VItal Signs ROHAN KAPPER COMPUTER SUPPORT ANALYST-HEAVY MOBILE EQUIPMENT OPERATOR [facility] 07-03-2023 23:30-0400 Reason For Taking VItal Signs ROHAN KAPPER COMPUTER SUPPORT ANALYST-HEAVY MOBILE EQUIPMENT OPERATOR [facility] 07-03-2023 03:07-0400 Heart rate 78 /min ROHAN KAPPER COMPUTER SUPPORT ANALYST-HEAVY MOBILE EQUIPMENT OPERATOR [facility] 07-02-2023 22:59-0400 Heart rate 82 /min ROHAN KAPPER COMPUTER SUPPORT ANALYST-HEAVY MOBILE EQUIPMENT OPERATOR [facility] 06-30-2023 18:36-0400 Body height 160 cm ROHAN KAPPER COMPUTER SUPPORT ANALYST-HEAVY MOBILE EQUIPMENT OPERATOR [facility] 06-30-2023 18:36-0400 Body weight 128 kg ROHAN KAPPER COMPUTER SUPPORT ANALYST-HEAVY MOBILE EQUIPMENT OPERATOR [facility] 06-30-2023 18:36-0400 Body weight 50 kg/m2 ROHAN KAPPER COMPUTER SUPPORT ANALYST-HEAVY MOBILE EQUIPMENT OPERATOR [facility] 06-30-2023 15:17-0400 Blood Pressure Location ROHAN KAPPER COMPUTER SUPPORT ANALYST-HEAVY MOBILE EQUIPMENT OPERATOR [facility] 06-30-2023 15:17-0400 Blood Pressure Method ROHAN KAPPER COMPUTER SUPPORT ANALYST-HEAVY MOBILE EQUIPMENT OPERATOR [facility] Encounters Encounter Date Encounter Type Care Provider Facility Start: 03-02-2025 ambulatory Balwinder MARSHALL Facil ity:[facility] Start: 03-02-2025 Registered Referred Balwinder Alves MD [facility] Start: 02-07-2025 End: 02-07-2025 ambulatory Balwinder Alves MD [facility] Work Phone: Start: 02-07-2025 End: 02-07-2025 Departed Referred Balwinder Alves MD [facility] Start: 02-07-2025 End: 02-07-2025 ambulatory Balwinder MARSHALL Facility:[facility] Start: 01-23-2025 End: 01-23-2025 ambulatory Balwinder Alves MD [facility] Work Phone: Start: 01-23-2025 End: 01-23-2025 [facility]: 01-23-2025 End: 01-23-2025 ambulatory Balwinder Alves OLS Facility:[facility] Start: 01-09-2025 End: 01-09-2025 ambulatory Balwinder Alves MD [facility] Work Phone: Start: 01-09-2025 End: 01-09-[address] Balwinder Alves MD Start: 01-09-2025 End: 01-09-2025 ambulatory Balwinder Alves Facility:[facility] Start: 01-02-2025 End: 01-02-2025 ambulatory Balwinder Alves MD [facility] Work Phone: Start: 01-02-2025 End: 01-02-2025 [facility] Start: 01-02-2025 Registered Referred Balwinder Fontanez [facility] Start: 01-02-2025 End: 01-02-2025 ambulatory Balwinder MARSHALL Facility:[facility] Start: 12-26-2024 End: 12-26-2024 ambulatory Balwinder Alves MD [facility] Work Phone: Start: 12-26-2024 End: 12-26-2024 [facility] Start: 12-26-2024 Registered Referred Balwinder Alves MD [facility] Start: 12-26-2024 End: 12-26-2024 ambulatory Balwinder MARSHALL Facility:[facility] Start: 12-16-2024 End: 12-16-2024 ambulatory Balwinder Alves MD [facility] Work Phone: Start: 12-16-2024 End: 12-16-2024 [facility] Start: 12-16-2024 Registered Referred Balwinder Fontanez [facility] Start: 12-16-2024 End: 12-16-2024 ambulatory Balwinder MARSHALL Facility:[facility] Start: 12-14-2024 End: 12-14-2024 ambulatory Balwinder Alves MD [facility] Work Phone: Start: 12-14-2024 End: 12-14-2024 [facility] Start: 12-14-2024 End: 12-14-2024 ambulatory Balwinder MARSHALL Facility:[facility] Start: 10-10-2024 ambulatory Balwinder MARSHALL Facil ity:[facility] Start: 10-10-2024 Registered Referred Balwinder Alves MD [facility] Start: 09-14-2024 End: 09-14-2024 [facility] Start: 09-14-2024 End: 09-14-2024 ambulatory Balwinder MARSHALL Facility:[facility] Start: 06-14-2024 End: 06-14-2024 ambulatory Balwinder MARSHALL Facility:[facility] Start: 05-29-2024 End: 05-29-2024 ambulatory Balwinder Alves Facility:[facility] Start: 05-06-2024 End: 05-06-2024 ambulatory Balwinder MARSHALL Facility:[facility] Start: 03-25-2024 End: 03-25-2024 ambulatory Balwinder MARSHALL Facility:[facility] Start: 03-14-2024 End: 03-14-2024 ambulatory Balwinder MARSHALL Facility:[facility] Start: 02-06-2024 End: 02-06-2024 Emergency department patient visit [facility] Work Phone: Start: 12-14-2023 End: 12-14-2023 ambulatory [facility] Work Phone: Start: 12-14-2023 End: 12-14-2023 Departed Referred [facility] Start: 12-09-2023 End: 12-09-2023 ambulatory TETE TREVINO [facility] Start: 12-09-2023 End: 12-09-2023 Office outpatient visit 15 minutes Tete FITZGERALD Work Phone: [facility] Comment on above: Closed fracture of d istal end of left fibula, unspecified fracture morphology, initial encounter (Primary Dx) Start: 11-16-2023 Orders Only Tete FITZGERALD Work Phone: [facility] Comment on above: Closed fracture of d istal end of left fibula, unspecified fracture morphology, initial encounter (Primary Dx) Start: 10-14-2023 End: 10-14-2023 [facility] Start: 10-14-2023 End: 10-14-2023 Office outpatient visit 15 minutes Tete FITZGERALD Work Phone: [facility] Comment on above: Closed fracture of d istal end of left fibula, unspecified fracture morphology, initial encounter; Acute left ankle pain Start: 10-09-2023 Orders Only Tete FITZGERALD Work Phone: [facility] Comment on above: Closed fracture of l eft ankle, initial encounter (Primary Dx) Start: 09-23-2023 End: 09-23-2023 ambulatory [employer] APPRAISER-C Laci Brewer [employer] APPRAISER Work Phone: [facility] Work Phone: Start: 09-23-2023 End: 09-23-2023 Departed Referred [employer] APPRAISER-C Laci Brewer LIC[employer]ED [employer] ESTATE APPRAISER Work Phone: [facility] Start: 09-14-2023 End: 09-14-2023 ambulatory L[employer] APPRAISER-C Laci Baltes LICENSED M[employer] ESTATE APPRAISER Work Phone: [facility] Work Phone: Start: 09-14-2023 End: 09-14-2023 Departed Referred [employer] APPRAISER-C Laci Beltrantes LICENSED M[employer] ESTATE APPRAISER Work Phone: [facility] Start: 07-17-2023 Telephone encounter Zander Ureña MD Work Phone: [facility] Comment on above: Other (Appt ) Start: 07-16-2023 End: 07-16-2023 Patient encounter procedure LICENSED [employer] E[employer] APPRAISER-C Laci Beltranwinnie LICENSED MASS REAL ESTATE APPRAISER Work Phone: [facility] Work Phone: Start: 06-30-2023 End: 07-05-2023 ambulatory LACI OSMAN COMPUTER SUPPORT ANALYST-HEAVY MOBILE EQUIPMENT OPERATOR Facility:B Start: 06-30-2023 End: 07-04-2023 ambulatory ROHAN Romero JULY COMPUTER SUPPORT ANALYST-HEAVY MOBILE EQUIPMENT OPERATOR Facility:B Start: 06-30-2023 End: 07-04-2023 Observation ROHAN M JULY COMPUTER SUPPORT ANALYST-HEAVY MOBILE EQUIPMENT OPERATOR [facility] Start: 02-05-2023 End: 02-06-2023 ambulatory LACI OSMAN COMPUTER SUPPORT ANALYST-HEAVY MOBILE EQUIPMENT OPERATOR Facility:B Start: 02-05-2023 End: 02-05-2023 Patient encounter procedure LACI OSMAN COMPUTER SUPPORT ANALYST-HEAVY MOBILE EQUIPMENT OPERATOR [facility] Start: 01-29-2022 End: 01-29-2022 Patient encounter procedure LACI BREWER COMPUTER SUPPORT ANALYST-HEAVY MOBILE EQUIPMENT OPERATOR [facility] Start: 07-17-2021 End: 07-17-2021 Patient encounter procedure LACI BREWER COMPUTER SUPPORT ANALYST-HEAVY MOBILE EQUIPMENT OPERATOR [facility] Procedures Date Procedure Procedure Detail [...] DUTTON Start: 09-23-2023 Clostridium difficil e detection [employer] APPRAISER-C Laci Beltranwinnie LICENSED [employer] APPRAISER Work Phone: Start: 07-16-2023 Radiography of ankle LICENSED [employer] APPRAISER -C Laci Brewer [employer] APPRAISER Work Phone: Start: 04-04-2023 Extraction of cataract ROHAN MCDOWELL COMPUTER SUPPORT ANALYST-HEAVY MOBILE EQUIPMENT OPERATOR Comment on above: Left side Start: 02-09-2020 Ophthalmic examinati on and evaluation LACI BREWER COMPUTER SUPPORT ANALYST-HEAVY MOBILE EQUIPMENT OPERATOR Comment on above: No retinopathy; WE Start: 03-22-2007 Arthroplasty of knee RY AN BALTES COMPUTER SUPPORT ANALYST-HEAVY MOBILE EQUIPMENT OPERATOR Comment on above: BILATERAL Start: 03-05-2007 Arthroplasty of knee RY AN BALTES COMPUTER SUPPORT ANALYST-HEAVY MOBILE EQUIPMENT OPERATOR Start: 10-05-1968 section LACI GUERRA COMPUTER SUPPORT ANALYST-HEAVY MOBILE EQUIPMENT OPERATOR Cataract (disorder) LACI ROWAN COMPUTER SUPPORT ANALYST-HEAVY MOBILE EQUIPMENT OPERATOR Comment on above: Right eye Cholecystectomy LACI BREWER COMPUTER SUPPORT ANALYST-HEAVY MOBILE EQUIPMENT OPERATOR Hysterectomy LACI BREWER APR N-HEAVY MOBILE EQUIPMENT OPERATOR Miscellaneous (quali fier value) ROHAN JULY COMPUTER SUPPORT ANALYST-HEAVY MOBILE EQUIPMENT OPERATOR Comment on above: brain drains from br ain bleed 2013 Renal lithotripsy LACI Ramesh COMPUTER SUPPORT ANALYST-HEAVY MOBILE EQUIPMENT OPERATOR Sling, device (physi shauna object) LACI BREWER COMPUTER SUPPORT ANALYST-HEAVY MOBILE EQUIPMENT OPERATOR Comment on above: Bladder H/o cystocele Tonsillectomy LACI BREWER AP RN-HEAVY MOBILE EQUIPMENT OPERATOR Comment on above: as a teenager Plan of Treatment Date Care Activity Detail Author Start: 06-24-2026 DTaP/Tdap/Td Vaccine s (2 - Td or Tdap) DTaP/Tdap/Td Vaccines (2 - Td or Tdap) [facility] Start: 01-23-2025 [facility] Start: 01-23-2025 Bacteria identified in Urine by Culture Urine Culture [facility] Start: 01-09-2025 Urine culture Urine Culture [facility] Start: 01-09-2025 [facility] Start: 01-02-2025 [facility] Start: 01-02-2025 Bacteria identified in Urine by Culture Urine Culture [facility] Start: 01-02-2025 Urine culture [facility] Start: 02-06-2024 [facility] Start: 11-25-2023 End: 11-16-2024 XR Ankle - left 3 Views XR ankle 3+ views left Imaging Routine Closed fracture of distal end of left fibula, unspecified fracture morphology, initial encounter Expected: 11/25/2023, Expires: 11/16/2024 [facility] Work Phone: Comment on above: Expected: 11/25/2023 , Expires: 11/16/2024 Start: 11-25-2023 End: 11-25-2023 Patient encounter procedure 11/25/2023 10:30 AM EST Office Visit [facility] [address] [place] [address] [place] [id number] Tete Trevino PA [address] [facility] [address] [place] [address] [facility] Start: 10-14-2023 End: 10-09-2024 XR Ankle - left 3 Views XR ankle 3+ views left Imaging Routine Closed fracture of left ankle, initial encounter Expected: 10/14/2023, Expires: 10/09/2024 [facility] Work Phone: Comment on above: Expected: 10/14/2023 , Expires: 10/09/2024 Start: 10-14-2023 End: 10-14-2023 Patient encounter procedure 10/14/2023 10:00 AM EST Office Visit [facility] [address] [facility] [address] [place] [address] Tete Trevino PA [address] [facility] [address] [place] [address] [facility] Start: 10-05-2023 Medicare Advantage Annual Wellness Visit Medicare Advantage Annual Wellness Visit [facility] Start: 06-05-2023 COVID-19 Vaccine ( season) COVID-19 Vaccine ( season) [facility] Start: 06-05-2023 COVID-19 Vaccine ( season) COVID-19 Vaccine ( season) [facility] Start: 06-05-2023 Influenza vaccination Influenza Vacc ine (#1) [facility] Start: 06-03-2021 Zoster Vaccines (3 o f 3) Zoster Vaccines (3 of 3) [facility] Start: 2008 Pneumococcal Vaccine : 65+ Years (1 - PCV) Pneumococcal Vaccine: 65+ Years (1 - PCV) [facility] Start: 2003 RSV Immunization age d 60 or older (1 - 1-dose 60+ series) RSV Immunization aged 60 or older (1 - 1-dose 60+ series) [facility] Start: 1993 Zoster Vaccines (1 o f 2) Zoster Vaccines (1 of 2) [facility] Start: 1962 DTaP/Tdap/Td Vaccine s (1 - Tdap) DTaP/Tdap/Td Vaccines (1 - Tdap) [facility] Start: 1955 Depression Screening Depression Scre ening [facility] Start: 1943 COVID-19 Vaccine (#1) COVID-19 Vacci ne (#1) [facility] Start: 1943 Medicare Advantage Annual Wellness Visit (AWV) Medicare Advantage Annual Wellness Visit (AWV) [facility] Start: 1943 Screening for osteoporosis Bone Density Scan [facility] Patient Education ED Abscess Inc ision And Drainage ED Wound Care After Packing ... [facility] Work Phone: Patient referral [facility] Work Phone: Urine culture [facility] Immunizations Immunization Date Immunization Notes Care Provider Fa keya 07-03-2022 influenza virus vacc ine, unspecified formulation LACI BREWER COMPUTER SUPPORT ANALYST-HEAVY MOBILE EQUIPMENT OPERATOR [facility] 01-14-2022 SARS-CoV-2 mRNA ([id number] e) vaccine LACI BREWER COMPUTER SUPPORT ANALYST-HEAVY MOBILE EQUIPMENT OPERATOR [facility] 06-14-2021 influenza virus vacc ine, unspecified formulation LACI BREWER COMPUTER SUPPORT ANALYST-HEAVY MOBILE EQUIPMENT OPERATOR [facility] 04-08-2021 zoster vaccine recombinant LACI BREWER COMPUTER SUPPORT ANALYST-HEAVY MOBILE EQUIPMENT OPERATOR [facility] 01-01-2021 SARS-CoV-2 (COVID-19 ) mRNA BNT-162b2 vax LACI BREWER COMPUTER SUPPORT ANALYST-HEAVY MOBILE EQUIPMENT OPERATOR [facility] 12-10-2020 SARS-CoV-2 (COVID-19 ) mRNA BNT-162b2 vax LACI BREWER COMPUTER SUPPORT ANALYST-HEAVY MOBILE EQUIPMENT OPERATOR [facility] Comment on above: Result Comment: 2020: [id number] 05-06-2020 influenza virus vacc ine, unspecified formulation LACI BREWER COMPUTER SUPPORT ANALYST-HEAVY MOBILE EQUIPMENT OPERATOR [facility] 05-06-2020 pneumococcal conjuga te vaccine, 13 valent LACI BREWER COMPUTER SUPPORT ANALYST-HEAVY MOBILE EQUIPMENT OPERATOR [facility] 07-06-2019 influenza virus vacc ine, unspecified formulation LACI BREWER COMPUTER SUPPORT ANALYST-HEAVY MOBILE EQUIPMENT OPERATOR [facility] 09-03-2018 influenza virus vacc ine, unspecified formulation LACI BREWER COMPUTER SUPPORT ANALYST-HEAVY MOBILE EQUIPMENT OPERATOR [facility] 08-05-2018 influenza virus vacc ine, unspecified formulation LACI BREWER COMPUTER SUPPORT ANALYST-HEAVY MOBILE EQUIPMENT OPERATOR [facility] 07-04-2018 influenza virus vacc ine, unspecified formulation LACI BREWER COMPUTER SUPPORT ANALYST-HEAVY MOBILE EQUIPMENT OPERATOR [facility] 06-04-2018 influenza virus vacc ine, unspecified formulation LACI BREWER COMPUTER SUPPORT ANALYST-HEAVY MOBILE EQUIPMENT OPERATOR [facility] 06-23-2017 influenza virus vacc ine, unspecified formulation LACI BREWER COMPUTER SUPPORT ANALYST-HEAVY MOBILE EQUIPMENT OPERATOR [facility] 06-10-2017 influenza virus vacc ine, unspecified formulation LACI BREWER COMPUTER SUPPORT ANALYST-HEAVY MOBILE EQUIPMENT OPERATOR 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 06-24-2016 tetanus toxoid, redu chivo diphtheria toxoid, and acellular pertussis vaccine, adsorbed LACI BREWER COMPUTER SUPPORT ANALYST-HEAVY MOBILE EQUIPMENT OPERATOR [facility] 07-17-2015 pneumococcal conjuga te vaccine, 13 valent LACI BREWER COMPUTER SUPPORT ANALYST-HEAVY MOBILE EQUIPMENT OPERATOR [facility] 06-19-2015 influenza virus vacc ine, unspecified formulation LACI BREWER COMPUTER SUPPORT ANALYST-HEAVY MOBILE EQUIPMENT OPERATOR [facility] 09-06-2014 influenza virus vacc ine, unspecified formulation LACI BREWER COMPUTER SUPPORT ANALYST-HEAVY MOBILE EQUIPMENT OPERATOR [facility] 06-08-2013 pneumococcal polysaccharide vaccine, 23 valent LACI BREWER COMPUTER SUPPORT ANALYST-HEAVY MOBILE EQUIPMENT OPERATOR [facility] 09-01-2012 influenza virus vacc ine, unspecified formulation LACI BREWER COMPUTER SUPPORT ANALYST-HEAVY MOBILE EQUIPMENT OPERATOR [facility] 05-28-2012 zoster vaccine, live LACI KOREY KUNAL COMPUTER SUPPORT ANALYST-HEAVY MOBILE EQUIPMENT OPERATOR [facility] Payers Date Payer Category Payer Medicaid [id number] 2024 Self-pay [id number] 2023 Medicare [employer] [id number] 2023-Present [phone] [address] [place] [address] Medicare HMO [id number] 2023 Medicare [id number] 2023 Unknown [id number] 1945 Unknown [id number] [id number] 1945 Unknown [id number] 2..840.1.004254.3.579.2.627 1945 Unknown [id number] 2.16.840.1.320864.3.579.2.627 Medicare MEDICARE PART A B [id number] Unknown [id number] 2.16.840.1.373483.3.579.2.462 Unknown [id number] 2.16.840.1.494532.3.579.2.462 Unknown [id number] 2.16.840.1.754351.3.579.2.462 Unknown [id number] 2.16.840.1.539744.3.579.2.462 Unknown [id number] 2.16.840.1.147247.3.579.2.462 Unknown [id number] 2.16.840.1.839776.3.579.2.462 Unknown [id number] 2.16.840.1.780170.3.579.2.462 Unknown [id number] 2.16.840.1.647482.3.579.2.462 Unknown [id number] 2.16.840.1.557361.3.579.2.462 Unknown [id number] 2.16.840.1.663608.3.579.2.462 Unknown [id number] 2.16.840.1.886951.3.579.2.462 Unknown [id number] 2.16.840.1.448251.3.579.2.462 Unknown [id number] 2.16.840.1.682940.3.579.2.462 Unknown [id number] 2.16840.1.943554.3.579.2.462 Unknown [id number] 2.16.840.1.006527.3.579.2.462 Social History Date Type Detail Facility Start: 04-06-2019 End: 02-06-2024 Ex-smoker (finding) [facility] Comment on above: Quit in 2014, not ar ound cigarette smoke Start: 1945 Sex Assigned At Female A [facility] Start: 07-16-2023 End: 02-06-2024 Tobacco smoking status ILIS Tobacco smoking consumption unknown [facility] Start: 1945 Sex Assigned At Not on file [facility] Start: 10-14-2023 End: 12-09-2023 Gender identity Not on file [facility] Start: 10-14-2023 Tobacco smoking stat us [facility] Never smoked tobacco [facility] Start: 10-14-2023 Tobacco use and exposure Smokeless tobacco non-user [facility] Start: 10-14-2023 End: 12-09-2023 History of Social function [facility] Start: 01-04-2025 End: 01-24-2025 Sex Female (finding) [facility] Medical Equipment Procedure Code Equipment Code Equipment Origin al Text Equipment Identifier Dates BD UF SHORT PEN NEEDLE [id number] Start: 08-29-[address] Strips Start: 10-16-2020 Lancets Start: 04-23-2021 BD UF SHORT PEN NEEDLE [id number], 0 Refill(s), 141.8 Start: 08-29-2020 See Instructions , EA=BOX of 100 2x daily testing once touch untra blue dx: diabetes, # 6 EA, 3 Refill(s), Pharmacy: [facility]/pharmacy #[id number], Diabetes, 166.37, cm, 07/24/21 11:31:00 EDT, Height, 134.5, kg, 07/24/21 11:31:00 EDT, Dosing Weight Start: 07-24-2021 See Instructions , EA=BOX OF 100 ONETOUCH DELICA LANCETS FINE, 33 GA TO TEST BID Diabetes R11.9, # 6 EA, 3 Refill(s), [id number], Diabetes, 166.37, cm, 07/24/21 11:31:00 EDT, Height, 134.5, kg, 07/24/21 11:31:00 EDT, Dosing Weight Start: 07-24-2021 See Instructions , Using Twice Daily. ONE BOX OF 100. BD UF 8mm 31 G (short) qs 3 month supply Diabetes Mellitus E11.9, # 2 EA, 0 Refill(s), Pharmacy: [facility]/pharmacy #[id number], 167.6, cm, 11/05/21 9:58:00 EST, Height, 135.4, kg, 11/05/21 9:58:00 EST, Dosing... Start: 12-20-2021 See Instructions , EA=BOX of 100 2x daily testing once touch untra blue dx: diabetes, # 6 EA, 3 Refill(s), Pharmacy: [facility]/pharmacy #[id number], Diabetes, 167.6, cm, 05/20/22 12:08:00 EDT, Height, 134.9, kg, 05/20/22 11:59:00 EDT, Dosing Weight Start: 08-05-2022 See Instructions , EA=BOX OF 100 ONETOUCH DELICA LANCETS FINE, 33 GA TO TEST BID Diabetes R11.9, # 6 EA, 3 Refill(s), Pharmacy: [facility]/pharmacy #4605, Diabetes, 167.6, cm, 08/19/22 12:13:00 EST, [...] diabetes, # 6 EA, 3 Refill(s), Pharmacy: [facility]/pharmacy #[id number], Diabetes, 167.6, cm, 05/20/22 12:08:00 EDT, Height, 134.9, kg, 05/20/22 11:59:00 EDT, Dosing Weight Start: 08-05-2022 See Instructions , EA=BOX OF 100 ONETOUCH DELLEIF LANCETS FINE, 33 GA TO TEST BID Diabetes R11.9, # 6 EA, 3 Refill(s), Pharmacy: [facility]/pharmacy #4605, Diabetes, 167.6, cm, 08/19/22 12:13:00 EST, Height, 135.4, kg, 08/19/22 12:13:00 EST, Dosing Weight Start: 09-10-2022 See Instructions , EA=ONE BOX OF 100, BID BD UF 8mm 31 G (short) qs 3 month supply Diabetes Mellitus E11.9, # 2 EA, 3 Refill(s), [id number], 167.6, cm, 11/20/22 11:29:00 EST, Height, 134, kg, 11/20/22 11:29:00 EST, Dosing Weight Start: 11-20-2022 Functional Status Date Assessment Result Facility 07-04-2023 Functional Status Room check performed [facility] 07-04-2023 Functional Status right knee high applied /on [facility] 07-04-2023 Functional Status [facility] 07-04-2023 Functional Status [facility] 07-04-2023 Functional Status Demonstrates C orrect Call Light Use Yes [facility] 07-04-2023 Functional Status Done [facility] 07-04-2023 Functional Status [facility] 07-03-2023 Functional Status Positioning Repositions self [facility] 07-03-2023 Functional Status [facility] 07-03-2023 Functional Status [facility] 07-03-2023 Functional Status [facility] 07-03-2023 Functional Status [facility] 07-03-2023 Functional Status [facility] 07-02-2023 Functional Status [facility] 07-02-2023 Functional Status Max A [facility] 07-01-2023 Functional Status [facility] 07-01-2023 Functional Status Single level home [facility] 07-01-2023 Functional Status [facility] 06-30-2023 Functional Status Sensory Deficits None A [facility] 06-30-2023 Functional Status Activity Rosa tance Independent [facility] Mental Status Date Assessment Result Facility 07-04-2023 Mental Status Orientation Orie nted x 4, Follows simple commands [facility] 07-03-[address] [facility] 07-03-[address] [facility] 07-03-2023 Mental Status Orientation Asse ssment Oriented x 4 [facility] 07-02-[address] [facility] 07-01-[address] [facility] Clinical Notes 06-30-2023 to 02-06-2024 Note Date & Type Note Facility 02-06-2024 Discharge summary Note Date/Time February 06, 2024 4:09pm [facility] Medical Records Department [address] [place] [address] Emergency Department Summary 02/06/24 MR#: [id number] Acct: [id number] Name: GUMARO BUSTAMANTE Rep #:[id number] : 1945 78 From: Omid Montiel MD PCP: Dr. Balwinder Alves MD Status:REG ER Location: ED HPI History of Present Illness Chief Complaint: Wound Check Narrative Narrative: 78-year-old female past medical history of diabetes [facility] for right labia majora abscess. She [...] line because they want to start vancomycin. [facility] Medical History Brain bleed Cataract Closed fracture [...] on antibiotics orally. Disposition is discharged to [facility] in stable condition. History & Record [...] Provider] - 2 Days Laci Brewer NP, [employer]AISER-C [Non-Staff] - Activity Restrictions/Additional Instructions: Remove packing/have packing removed in 48 hours. Do not leave in longer. Continue vancomycin through your peripheral IV. Disposition Disposition: Custodial Facility Discharge Location: [facility] What to do if you have Problems For any increased pain, shortness of breath, bleeding, nausea or vomiting, chestpain, or any unexpected problems, contact your Primary Care Provider. Call [facility] ([phone]) or report to the closest Emergency Room. Call 911 if necessary. 02/06/241801 <Electronically signed by Omid Montiel MD> Cosigner Signature (if applicable): CC: Dr. Balwinder Alves MD ~ Signed [facility] Work Phone: 1(654) 457-605603-06-2024 History of Present illness Narrative* LIA Champagne - 12/09/2023 10:30 AM EST Images from the original note were not included. [facility] [address] [place] [address] [address] [facility] [address] Dept: [phone] Dept Gumaro Bustamante 1945 [id number] 12/09/2023 HISTORY OF PRESENT ILLNESS: Gumaro returns [...] to improve. Electronically signed by LIA Champagne [facility] Department of Orthopedic surgery 12/09/2023 3:43 PM Voice recognition was used for portions of this note and although it was reviewed prior to signing some incorrect words or phrases could be present. documented in this [facility]01-10-2024 History of Present illness Narrative* LIA Champagne - 10/14/2023 10:00 AM EST Images from the original note were not included. [facility] [address] [place] [address] [place] [id number] Dept: [phone] Dept Gumaro Bustamante 1945 [id number] 10/14/2023 HISTORY OF PRESENT ILLNESS: Gumaro returns [...] with Imaging. Electronically signed by LIA Champagne [facility] Department of Orthopedic surgery 10/14/2023 3:50 PM Voice recognition was used for portions of this note and although it was reviewed prior to signing some incorrect words or phrases could be present. documented in this [facility]11-30-2023 Telephone encounter Note* Telephone Encounter - Kimberly Capellan MA - 09/03/2023 8:53 AM EST Left distal fibula fx doi 07/02/23 she is in a boot. Can only be seen in [place] or [place]. [facility] wads [id number] Misc[facility] Notes* Telephone Encounter - Kimberly Capellan MA - 09/03/2023 8:53 AM EST Left distal fibula fx doi 07/02/23 she is in a boot. Can only be seen in [place] or [place]. No wads * Telephone Encounter - Sammie Lantigua - 09/02/2023 12:08 PM EST Gareth an RN at [facility] called [phone] ext 2008, he states that they just got Gumaro from [place] and they are looking for her to [...] Dr. Ureña on Thursday at 1pm in [facility] or 9am in [place] if not already double booked. documented in this [facility]11-29-2023 Telephone encounter Note* Telephone Encounter - Sammie Lantigua - 09/02/2023 12:08 PM EST Gareth an RN at [facility] called [phone] ext 2008, he states that they just got Gumaro from [place] and they are looking for her to [...] 2:30 today and then works again tomorrow. [id number] Miscellaneous Notes* Telephone Encounter - Sammie Lantigua - 09/02/2023 12:08 PM EST Gareth an RN at [facility] called [phone] ext 2008, he states that they just got Gumaro from [place] and they are looking for her to [...] Dr. Ureña on Thursday at 1pm in [facility] or 9am in [place] if not already double booked. documented in this [facility]10-13-2023 Telephone encounter Note* Telephone Encounter - Billy Araya MA - 07/17/2023 9:27 AM EDT LVM to schedule with Dr. Ureña on Thursday at 1pm in [facility] or 9am in [place] if not already double booked. [id number] Discharge instructions Patient Education 07/03/2023 14:56:59 Urinary Tract Infection, Adult, Rzqf-qy-Cmuo Urinary Tract Infection, Adult A urinary tract [...] Follow these instructions at home: Medicines Take wgaj-kcc-anmatmi and prescription medicines only as told by [...] 03/09/2009 Document Revised: 09/08/2019 Document Reviewed: 03/31/2019 [employer] Patient Education [place]. Follow Up Care 06/30/2023 15:11:52 With:LACI BREWER Address: [address] [place] [phone] When:3-5 days Comments:Please schedule a Follow up appt with your PCP after d/c. [facility] 09-29-2023 Note Discharge Instructions Thank you for allowing [facility] to assist you with your healthcare needs. The following is importantdischarge information regarding your hospital visit. Your Care Team Heather Hunt APRN Your Diagnosis Ankle pain-swelling Depression Fall Fibula fracture Hypertension Type 2 diabetes mellitus Urinary tract infection What to do next Scheduled Follow-Up Appointments [facility] 11[facility]30 AM EST LACI BREWER [address] [address] Follow Up Appointments Follow Up with LACI BREWER When Within 3-5 days Why: Please schedule a Follow up appt with your PCP after d/c. Where: [address] [place] [address] [phone] The Following Activity and Diet Have Been [...] When Why Instructions Last Dose New acetaminophen-hydrocodone (Zelienople 325- 5 mg oral tablet) 1 tab(s) [...] Follow these instructions at home: Medicines Take jbfy-bgf-tvzlwnj and prescription medicines only as told by [...] 03/09/2009 Document Revised: 09/08/2019 Document Reviewed: 03/31/2019 [employer] Patient Education 2020 [employer] Additional Information VACCINATE! IT SAVES LIVES! Members of the community who have not yet received the COVID-19 vaccine and would like to receive it can visit one of [facility] vaccine clinics. There are many vaccine clinic locations within the State. For locations and available times, please visit [email or web address].coronavirus.[place].gov/. It is important to note that some COVID mobile vaccine clinics are held outdoors and may be canceled in rainy or stormy conditions. To learn more about pediatric vaccinations (ages 5-11), we invite you to visit the [employer] Children[facility] webpage. https://www.[employer].org/pages/1844-Zfiad-Udadrhfogpw-Udiaqgjsda-Teyuj-Niw stions.htmlTo learn more about the COVID-19 vaccine, we invite you to visit the CDC website for a list of frequently asked questions.https://www.cdc.gov/coronavirus/2019-ncov/vaccines/faq.html [facility] Patient Portal Access Instructions: Stay connected with your healthcare team and access your personal medical information anytime with the [facility] Patient Portal. Please follow the directions below to create your [facility] account: 1.Access the email account you provided upon registration to the hospital/physician office.2.Look for an invitation email from [facility].3.Open the email and access the invitation link: AcceptInvitation to [facility].4.Fill in the required correa to create your account. To access your account, visit [email or web address]. Click the blue button labeled Access Patient [...] who you will allowto register on the [facility] Patient Portal for access to your information. You can also access the [facility] Patient Portal on the [employer] calos. Simply click on Patient Portal and then log into your account. If you would like to receive a full copy of your medical records, please contact the [facility] Medical Records Department by calling [phone], Thursday through Thursday between 8 a.m. and [...] Call your local pharmacy or go to http://Searchdaimon.Stumpedia/7Z2Ks2z to find one close to you.3.Make use of household items: Use cat litter or old coffee grounds to dispose medications if other options arenot available. Mix your drugs with these household products, seal them in an airtight container andthrow it into the garbage. Call [facility]: [phone] to be sure your drugs can be [...] Patient Education Materials Urinary Tract Infection, Adult, Wzeu-hq-Drpz Medication Leaflets My discharge plan and instructions have been reviewed and explained to me and I,GUMARO BUSTAMANTE understand my current condition and have read and understand these discharge instructions. I have received a written copy of the plan/instructions. If I have questions, I am aware that I should contact my doctor. Patient/Sprinkling System Irrigator Signature: Date/Time: Relationship to Patient: Witness Name/Signature: Date/Time: [facility]09-29-2023 Note Date of Service 07/03/2023 Chief Complaint Fibula fracture Subjective 78-year-old female with past medical history significant for HTN, HLD, type 2 diabetes mellitus, morbid obesity. Next Patient presented to [facility] emergency department on 06/30/2023 with left [...] currently. Pain was not well controlled with Zelienople alone. Objective Vitals and Measurements T: 36.6 [...] Dr. Roberto, nonweightbearing status for 6 weeks. Zelienople for pain. Patient has a documented allergy [...] Time Spent 36 minutes was spent in trxf-nv-vnie time and coordination of care for this patient, including but not limited to personally gathering history, examining the patient, reviewing labs and images and records, counseling patient and/or family about diagnosis and potential workup if applicable, as detailed above as well as discussing the case with patient's interdisciplinary team where applicable. Digitally Signed by HEATHER HUNT on 07/03/2023 01:33 PM [facility]09-28-2023 Note Date of Service 07/02/2023 Chief Complaint Fall Subjective 78-year-old female with past medical history significant for HTN, HLD, type 2 diabetes mellitus, morbid obesity. Next Patient presented to [facility] emergency department on 06/30/2023 with left [...] Dr. Roberto, nonweightbearing status for 6 weeks. Zelienople for pain. Patient has a documented allergy [...] by HEATHER HUNT on 07/02/2023 04:17 PM [facility]09-28-2023 Note. MICRO - Microbiology PROCEDURE: Urine Culture [...] Locations *1: This test was performed at: [facility], [address] [place] [address], [phone] , [facility]07-01-2023 Note Date of Service 07/01/2023 Chief Complaint [...] - holding off until seen by ortho. *guest services ambassador consulted for discharge planning. *Continue PO pain [...] home medications, discussing plan of care with nursing,school social worker, and therapy, examining patient, collaborating with physician, and documenting in chart. Digitally Signed by ROHAN MCDOWELL on 07/01/2023 04:17 PM [facility]09-26-2023 Note Date of Service 06/30/2023 Chief Complaint Patient fell at home and is complaining of left-sided ankle pain. History of Present Illness Patient is an 78-year-old female, who follows with Laci Brewer CNP with a past medical history significant for hypertension, hyperlipidemia, type 2 diabetes and morbid obesity, presented to [facility] emergency department with the chief complaint of [...] to evaluate and treat. We will consult school social worker for discharge planning. Check CBC [...] PT and OT to evaluate and treat. *guest services ambassador consulted for discharge planning. *Continue PO pain [...] 04/06/2019 Use: Never., 04/06/2019 Home/Environment Self Primary Renewable Energy Engineer:., 04/06/2019 Nutrition/Health Type of diet: Regular. Appetite Good. Eating Difficulties None. Caffeine intake amount: Occ Coke. Two protein drink daily, it has caffeine of one cup of coffee., 08/19/2022 Substance Abuse Use: Never., 04/06/2019 Tobacco Tobacco Use: Former smoker, quit more than 30 days ago., 04/06/2019 Family History Arthritis: Sister. Asbestosis: Father. Cancer: Mother. Diabetes: Sister. Guillain [place] syndrome: Sister. Heart disease: Sister. Malignant neoplasm [...] by ROHAN MCDOWELL on 06/30/2023 04:51 PM [facility]09-26-2023 Note ORIGINAL EXAMINATION: 3 x-ray views of [...] Sign Date: 06/30/2023 4:00:26 PM Ordering Provider: [address]26-2023 Note ORIGINAL EXAMINATION: TWO XRAY VIEWS [...] Sign Date: 06/30/2023 4:01:46 PM Ordering Provider: [address]26-2023 Evaluation + Plan noteExtracted from: Title:History and Physical Author:ROHAN MCDOWELL APRN-HEAVY MOBILE EQUIPMENT OPERATOR Date:06/30/23 1. Ankle pain-swelling Acute, s/p mechanical fall at home *X-ray of left ankle reveals fracture of distal fibula. *Consult Dr. Jose Roberto, orthopedics, for recommendation. *Patient is non weightbearing to left ankle. *Consult placed to PT and OT to evaluate and treat. *guest services ambassador consulted for discharge planning. *Continue PO pain [...] Appointment Date:09/22/2023 11:30:00 AM Scheduled Provider:LACI BREWER Location:[facility] Appointment Type:PC OV [facility] evaluation + Plan note Future Appointments Appointment Date:07/24/2021 11:30:00 AM Scheduled Provider:LACI BREWER Location:[facility] Appointment Type: OV Future Scheduled Tests Laboratory* Vitamin D Level 01/22/21 * Vitamin D Level 11/06/20 [facility] Evaluation + Plan note Future Appointments Appointment Date:02/04/2022 11:00:00 AM Scheduled Provider:LACI BREWER Location:[facility] Appointment Type:PC OV Follow Up [facility] Evaluation + Plan note Future Appointments Appointment Date:02/10/2023 11:30:00 AM Scheduled Provider:LACI BREWER Location:[facility] Appointment Type:PC OV [facility] Evaluation note* Diagnosis Onset Date Resolution Status Closed fracture of left distal fibula acute Left ankle pain acute [facility] Work Phone: Evaluation note* Diagnosis Closed fracture of left ankle, initial encounter- [facility] Diagnosis Closed fracture of distal end of left fibula, unspecified fracture morphology, initial encounter Acute left ankle pain [facility]* Diagnosis Closed fracture of distal end of left fibula, unspecified fracture morphology, initial encounter- Primary documented in this encounter [facility] note* Diagnosis Closed fracture of distal end of left fibula, unspecified fracture morphology, initial encounter- Primary documented in this encounter [facility] noteNo assessment information availableWOur Lady of Mer[facility] Hospital Work Phone: Hospital course Narrative No data available for this section [facility] Hospital Discharge instructions No data available for this section [facility] Hospital Discharge instructions Additional Instructions Remove packing/have packing removed in 48 hours. Do not leave in longer. Continue vancomycin through your peripheral IV.[facility] Work Phone: Progress note No data available for this section [facility] Reason for referral (narrative)No reason for referral information availableWOur Lady of Mercy Hospital Work Phone: Summary Purpose Family History No Family History Records Found Advance Directives No Advanced Directives Records Found Advance Directive Response Recorded Date/ Time Name of Medical Power of Full Stack Net Developer casey laureano February 06, 2024 3:49pm Living Will Yes February 06, 2024 3: 49pm Power of Full Stack Net Developer Yes February 06, 2024 3:49pm Chief Complaint and Reason for Visit Chief Complaint LEFT FIBULA Room 1 LABWORK Reason for Visit Closed fracture of l eft distal fibula Left ankle pain Chief Complaint LEFT FIBULA Room 1 LABWORK [facility] Reason for Visit Closed fracture of l eft distal fibula Left ankle pain Chief Complaint LABWORK [facility] Chief Complaint [facility] WOR K wound Chief Complaint Admit Date [facility] WORK September 14 5:00am [facility] October 10, 2024 7:30pm [facility] December 14, 2024 5 :00am LABWORK December 16, 2024 6:1 2am [facility] January 02, 2025 7 :30pm Chief Complaint Admit Date [facility] LAB WORK September 14 5:00am [facility] WORK October 10, 2024 7:30pm [facility] December 14, 2024 5 :00am LABWORK December 16, 2024 6:1 2am [facility] WORK January 02, 2025 7 :30pm LABWORK January 09, 2025 12:4 0pm Chief Complaint Admit Date [facility] LAB WORK September 14 5:00am [facility] WORK October 10, 2024 7:30pm [facility] WORK December 14, 2024 5 :00am LABWORK December 16, 2024 6:1 2am LABWORK December 26, 2024 7:0 8am [facility] WORK January 02, 2025 7 :30pm LABWORK January 09, 2025 12:4 0pm Chief Complaint Admit Date [facility] LAB WORK October 10, 2024 7:30pm [facility] WORK December 14, 2024 5 :00am LABWORK December 16, 2024 6:1 2am LABWORK December 26, 2024 7:0 8am [facility] WORK January 02, 2025 7 :30pm LABWORK January 09, 2025 12:4 0pm [facility] WORK January 23, 2025 1 1:30pm Chief Complaint Admit Date [facility] LAB WORK December 14, 2024 5 :00am LABWORK December 16, 2024 6:1 2am LABWORK December 26, 2024 7:0 8am [facility] WORK January 02, 2025 7 :30pm LABWORK January 09, 2025 12:4 0pm [facility] WORK January 23, 2025 1 1:30pm [facility] WORK February 07, 2025 3:30 am Reason for Referral Specialty Diagnoses / Procedures Referred By Contannita t Referred To Contact Physical Therapy Diagnoses Closed fracture of distal end of left fibula, unspecified fracture morphology, initial encounter Procedures [place] OFFICE/OUTPATIENT NEW HIGH MDM 60 MINUTES Tete Trevino PA 1 [facility] [address] [place] [address] Referral ID Status Reason Start Date Expiration Date Visits Requested Visits Authorized [id number] Pending Review Eval and Treat 10/14/2023 04/11/2024 99 99 Additional Source Comments Care Team (unrecognized sect ion and content) Team Status: Active Member Role Status Dates Dr. Joaquin Thomas MD Family Provider Active Laci Brewer LICENSED MASS REAL ESTATE APPRAISER, LICENSED MASS REAL ESTATE APPRAISER-C Primary Care Provider Active Team Status: Inactive Member Role Status Dates Laci Brewer LICENSED MASS REAL ESTATE APPRAISER, LICENSED MASS REAL ESTATE APPRAISER-C Primary Care Provider, Referring Provider Active Prieto Meade MD Attending Provider Active Team Status: Inactive Member Role Status Dates Laci Brewer LICENSED MASS REAL ESTATE APPRAISER, LICENSED MASS REAL ESTATE APPRAISER-C Primary Care Provider Active Dr. Shlomo Umana MD Attending Provider Active Team Status: Inactive Member Role Status Dates Laci Brewer LICENSED MASS REAL ESTATE APPRAISER, LICENSED MASS REAL ESTATE APPRAISER-C Primary Care Provider Active Balwinder MARSHALL MD Attending Provider Active Site Safety Manager Relationship Specialty Start Date End Date Balwinder Alves MD [address] [facility] [address] [place] [phone] PCP - General Family Medicine 10/14/23 Site Safety Manager Relationship Specialty Start Date End Date Balwinder Alves MD [address] [facility] [address] [place] [id number] PCP - General Family Medicine 10/14/23 Site Safety 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 Relationship Specialty Start Date End Date Balwinder Alves MD [address] [facility] [address] [place] [phone] PCP - General Family Medicine 10/14/23 Team Status: Inactive Member Role Status Dates Laci Brewer 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 [facility] Hospital[facility]. provides no warranty or guarantee of the accuracy or completeness of information in this document.
--- OUTSIDE RECORDS SUMMARY | 2025-03-16 03:50 | XMS RPT_ITS | CCD ---
Author Organization [facility] Inform ion [facility] Care Team Providers Care Fur Blowing Machine Attendant Name Role Phone OSMAN PERDUE, LACI Primary Care Physician [phone] OSMAN PERDUE, LACI Primary Care Unavailabl e OSMAN PERDUE, LACI Attending Unavailabl e OSMAN ENERGY ADVISOR-BIT TRIPOLER, LACI Primary Care Unavailabl e OSMAN ENERGY ADVISOR-BIT TRIPOLER, LACI Attending Unavailabl e JULY PERDUE, ROHAN Romero Attending Unavaila ble OSMAN PERDUE, LACI Primary Care UnavailJOSE FRANCISCO Matos DO Referring Unavailable JOSE ROBERTO DO Consulting Unavailable JULY BENTON-RODRIGO, ROHAN Romero Admitting Unavaila ble Unavailable Primary Care Provider Unavailluisa Brewer CHILD NUTRITION DIRECTOR, CHILD NUTRITION DIRECTOR-C Laci Primary Care Provider [phone] Osman CHILD NUTRITION DIRECTOR, CHILD NUTRITION DIRECTOR-C Laci Referring Provider [phone] MD Prieto Meade Attending Provider Dr. Shlomo Umana Attending Provider Balwinder Alves MD Primary Care Provider [phone] ZANDER UREÑA Referring Unavailable TETE TREVINO Attending [...] / oxyCODONE; Translations: [acetaminophen-oxyco done] Drug Allergy [facility] (7 sources) Adhesive Tape Allergy to substance 07-05-20 REDNESS & BLISTERS [facility] (4 sources) Amoxicillin / Clavulanate; Translations: [amoxicillin-clavula kellie] Drug Allergy Rash [facility] (4 sources) Aspirin; Translations: [aspirin] Drug Allergy Unknown [facility] (19 sources) Ciprofloxacin; Translations: [ciprofloxacin] Drug Allergy 07-05-20 Rash [facility] (4 sources) dapagliflozin; Translations: [dapagliflozin] Drug Allergy Rash [facility] (7 sources) Ibuprofen; Translations: [ibuprofen] Drug Allergy 07-05-20 23 [facility] (20 sources) Latex; Translations: [latex] Drug allergy 07-05-20 BLISTERS & REDNESS, blisters, Other [facility] Comment on above: BLISTERS (15 sources) Sulfamethoxazole; Translations: [sulfamethoxazole] Drug Allergy 11-01-19 21 Hives, Shortness of breath [facility] (6 sources) Cephalexin; Translations: [cephalexin] Drug Allergy 07-05-20 23 H[facility] Comment on above: Immediate rash / hiv es; patient seen in ER after last administration of Keflex (12 sources) Adhesive Tape; Translations: [adhesive tape] Allergy to substance 07-16-20 blister [facility] (14 sources) Trimethoprim Drug Allergy 11-01-19 21 Shortness of breath [facility] (3 sources) augmenten Allergy to substance 07-16-[address] [facility] (4 sources) Aluminum aspirin Drug Allergy 07-05-20 23 Unknown [facility] (4 sources) dapagliflozin Drug Allergy 07-05-20 23 [facility] (4 sources) Amoxicillin-Pot Clavulanate Drug Allergy 07-05-20 23 Rash [facility] (4 sources) Diphenhydramine-Acet aminophen Drug Allergy 07-05-20 23 [facility] (3 sources) Acetaminophen / oxyCODONE Drug Allergy 10-14-19 24 [facility] (3 sources) Sulfamethoxazole Allergy to substance 11-01-19 21 [facility] (3 sources) Wound Dressing Adhesive Drug Allergy 07-16-20 23 [facility] (8 sources) Amoxicillin Drug Allergy 02-06-[address] [facility] (8 sources) Clavulanate Drug Allergy 02-06-[address] [facility] (8 sources) Vancomycin Drug Allergy 02-06-20 24 red man syndrome [facility] (1 source) Amoxicillin Drug Allergy 08-03-20 [facility] (1 source) Ciprofloxacin Drug Allergy 08-03-20 [facility] (1 source) Clavulanate Drug Allergy 08-03-20 [facility] (1 source) Sulfamethoxazole Drug Allergy 08-03-20 [facility] (1 source) Trimethoprim Drug Allergy 08-03-20 [facility] (1 source) Vancomycin Drug Allergy 08-03-20 [facility] Medications Current Medications Medication [...] arm, # 9 mL, 0 Refill(s), Pharmacy: [facility]/pharmacy [id number], Type 2 diabetes mellitus, 168.91, cm, 02/18/23 11:25:00 EDT, Height, kg, 02/18/23 11:25:00 EDT, Dosing Weight Start Date: 05/19/23 Stop Date: 08/17/23 Status: Ordered acetaminophen 500 mg oral tablet (11 sources) Start: 07-22-2023 [facility] Pain Relief Extra St 500 MG [...] 16, 2023 12:00am Start: 07-03-2023 End: 07-06-2023 Guy 325- 5 mg oral tablet Dose = [...] qDay, # 180 tab(s), 3 Refill(s), Pharmacy: [facility]/pharmacy #[id number], 167.6, cm, 11/20/22 11:29:00 EST, Height, kg, 11/20/22 11:29:00 EST, Dosing Weight Start Date: 11/20/22 Status: Ordered Start: 11-13-2021 calcium (as ca rbonate) 600 mg oral tablet Dose : 1,200 mg = 2 tab(s), Oral, qDay, # 180 tab(s), 3 Refill(s), Pharmacy: [facility]/pharmacy #[id number], 167.6, cm, 11/05/21 9:58:00 EST, Height, [...] TID, # 270 cap(s), 0 Refill(s), Pharmacy: [facility]/pharmacy #[id number], Diabetic neuropathy, 168.91, cm, 02/18/23 11:25:00 EDT, Height, 127.7, kg, 02/18/23 11:25:00 EDT, Dosing Weight Start Date: 06/10/23 Stop Date: 09/08/23 Status: Ordered Start: 11-20-2022 End: 02-18-2023 gabapentin 400 mg oral capsu le Dose : 400 mg = 1 cap(s), Oral, TID, # 270 cap(s), 0 Refill(s), Pharmacy: [facility]/pharmacy #[id number], Diabetic neuropathy, 167.6, cm, 11/20/22 11:29:00 EST, Height, 134, kg, 11/20/22 11:29:00 EST, Dosing Weight Start Date: 11/20/22 Stop Date: 02/18/23 Status: Ordered Start: 10-25-2021 End: 01-23-2022 gabapentin 400 mg oral capsu le Dose : 400 mg = 1 cap(s), Oral, TID, dose change, # 270 cap(s), 0 Refill(s), Pharmacy: [facility]/pharmacy #[id number], Diabetic neuropathy, 166.37, cm, 07/24/21 11:31:00 EDT, Height, 134.5, kg, 07/24/21 11:31:00 EDT, Dosing Weight Start Date: 10/25/21 Stop Date: 01/23/22 Status: Ordered Start: 04-23-2021 End: 07-22-2021 gabapentin 400 mg oral capsu le Dose : 400 mg = 1 cap(s), Oral, TID, dose change, # 270 cap(s), 0 Refill(s), Pharmacy: [facility]/pharmacy #[id number], Diabetic neuropathy, 167.6, cm, 04/23/21 11:30:00 [...] E11.9, # 4 EA, 3 Refill(s), [id number] Diabetes, 166.37, cm, 07/24/21 11:31:00 EDT, Height, kg, 07/24/21 11:31:00 EDT, Dosing Weight Start Date: 07/24/21 Stop Date: 07/19/22 Status: Ordered Start: 05-14-2021 inject 1 dose by sub cutaneous injection twice daily Lantus Solostar Pen 100 units/mL 3 mL Pen Dose : 30 unit(s) =, Subcutaneous, BID, EA=BOX OF 5 PENS diabetes E11.9, # 4 EA, 3 Refill(s), [id number], 167.6, cm, 04/23/21 11:30:00 EDT, Height, kg, 04/23/21 11:30:00 EDT, Dosing Weight Start Date: 05/14/21 Status: Ordered losartan potassium 100 mg oral tablet (15 sources) Angiotensin 2 Receptor Ysabel Start: 02-18-2023 losartan 100 mg oral tablet Dose : 100 mg = 1 tab(s), Oral, Daily, # 90 tab(s), 1 Refill(s), Pharmacy: [facility]/pharmacy #[id number], Hypertension, 168.91, cm, 02/18/23 11:25:00 EDT, Height, kg, 02/18/23 11:25:00 EDT, Dosing Weight Start Date: 02/18/23 Status: Ordered Start: 02-25-2022 losartan 100 m g oral tablet Dose : 100 mg = 1 tab(s), Oral, Daily, # 90 tab(s), 3 Refill(s), Pharmacy: [facility]/pharmacy #[id number], Hypertension, 167.6, cm, 02/04/22 11:02:00 EDT, Height, kg, 02/04/22 11:02:00 EDT, Dosing Weight Start Date: 02/25/22 Status: Ordered Start: 07-24-2021 losartan 100 m g oral tablet Dose : 100 mg = 1 tab(s), Oral, Daily, In absence of PCP, # 90 tab(s), 1 Refill(s), Pharmacy: [facility]/pharmacy #[id number], Hypertension, 166.37, cm, 07/24/21 11:31:00 EDT, Height, kg, 07/24/21 11:31:00 EDT, Dosing Weight Start Date: 07/24/21 Status: Ordered Start: 04-23-2021 losartan 100 m g oral tablet Dose : 100 mg = 1 tab(s), Oral, Daily, In absence of PCP, # 90 tab(s), 1 Refill(s), Pharmacy: [facility]/pharmacy #[id number], Hypertension, 167.6, cm, 04/23/21 11:30:00 EDT, [...] 0 Refill(s), 07/14/23 1:08:00 PM EDT, Pharmacy: [facility]/pharmacy #[id number], 160, cm, 06/30/23 18:36:00 EDT, Height, kg, 06/30/23 18:36:00 EDT, Dosing Weight Start Date: 07/04/23 Stop Date: 07/14/23 Status: Ordered Pen needles 8 mm (1 source) Start: 04-23-2021 Pen needles 8 mm See Instructions, Using Twice Daily. ONE BOX OF 100. BD UF 8mm 31 G (short) qs 3 month supply Diabetes Mellitus E11.9, # 2 EA, 0 Refill(s), [id number], 167.6, cm, 04/23/21 11:30:00 EDT, [...] sites, # 9 mL, 0 Refill(s), [id number], Diabetes Diabetes mellitus, 167.6, cm, [...] qHS, # 90 tab(s), 3 Refill(s), [id number], Type 2 diabetes mellitus, 167.6, cm, 08/19/22 12:13:00 EST, Height, kg, 08/19/22 12:13:00 EST, Dosing Weight Start Date: 08/20/22 Status: Ordered Start: 08-28-2021 simvastatin 5 mg oral tablet Dose : 5 mg = 1 tab(s), Oral, qHS, # 90 tab(s), 3 Refill(s), Pharmacy: [facility]/pharmacy #[id number], Type 2 diabetes mellitus, 166.37, cm, [...] tab(s), 3 Refill(s), Pharmacy: [facility]/pharmacy #[id number], Insomnia, 168.91, cm, 02/18/23 11:25:00 EDT, Height, kg, 02/18/23 11:25:00 EDT, Dosing Weight Start Date: 02/18/23 Status: Ordered Start: 05-01-2022 traZODone 100 mg oral tablet Dose : 100 mg = 1 tab(s), Oral, qHS, # 90 tab(s), 3 Refill(s), Pharmacy: [facility]/pharmacy #[id number], Insomnia, 167.6, cm, 02/04/22 11:02:00 EDT, Height, kg, 02/04/22 11:02:00 EDT, Dosing Weight Start Date: 05/01/22 Status: Ordered Start: 07-24-2021 traZODone 100 mg oral tablet Dose : 100 mg = 1 tab(s), Oral, qHS, # 90 tab(s), 1 Refill(s), Pharmacy: [facility]/pharmacy #[id number], Insomnia, 166.37, cm, 07/24/21 11:31:00 EDT, Height, kg, 07/24/21 11:31:00 EDT, Dosing Weight Start Date: 07/24/21 Status: Ordered Start: 04-23-2021 traZODone 100 mg oral tablet Dose : 100 mg = 1 tab(s), Oral, qHS, # 90 tab(s), 1 Refill(s), Pharmacy: [facility]/pharmacy #[id number], Insomnia, 167.6, cm, 04/23/21 11:30:00 EDT, [...] Daily, # 90 cap(s), 3 Refill(s), Pharmacy: [facility]/pharmacy #[id number], 166.37, cm, 07/24/21 11:31:00 EDT, Height, kg, 07/24/21 11:31:00 EDT, Dosing Weight Start Date: 09/11/21 Status: Ordered Vitamin D3 400 intl units (1 0 mcg) oral tablet (1 source) Start: 04-23-2021 Vitamin D3 400 intl units (10 mcg) oral tablet Dose : 20 mcg = 2 tab(s), Oral, qDay, # 180 tab(s), 3 Refill(s), Pharmacy: [facility]/pharmacy #[id number], Vitamin D deficiency, 167.6, cm, 04/23/21 11:30:00 EDT, Height, kg, 04/23/21 11:30:00 EDT, Dosing Weight Start Date: 04/23/21 Status: Ordered Vitamin D3 50 mcg (2000 intl units) oral tablet (2 sources) Start: 08-20-2022 Vitamin D3 50 mcg (2000 intl units) oral tablet Dose : 2,000 unit(s) = 1 tab(s), Oral, Daily, dose increase, # 90 tab(s), 3 Refill(s), Pharmacy: [facility]/pharmacy #[id number], Vitamin D deficiency, 167.6, cm, 08/19/22 [...] pain/diarrhea, # 120 packet(s), 0 Refill(s), Pharmacy: [facility]/pharmacy #4605, Diarrhea, 167.6, cm, 02/04/22 11:02:00 EDT, [...] pain/diarrhea, # 120 packet(s), 0 Refill(s), Pharmacy: [facility]/pharmacy #4605, Diarrhea, 167.6, cm, 02/04/22 11:02:00 EDT, [...] 11-15-2019 Chronic Other aftercare (1 source) [facility]; Translations: [Other [facility]] Onset: 01-12-2025 Episodic Other [...] 0157. UNABLE TO CONFIRM, TESTING DISCONTINUED AT [facility]. Urine Culture Copy of report sent to Infection Control Printer [id number] 03/04/25 Savi MENDEZ. Urine Culture RESULTS CALLED TO XAVIER Flowers 03/06/25 1412 Lorrie Patterson. REPORT READ BACK BY . Urine Culture Urine Culture ESBL Escherichia coli [place] Count 80,000-100,000 MARKER ESBL producing OrganismA MARKER [...] S Tobramycin Islt PREM <=1 S Normal [facility] Comment on above: Performed By: #### L 100.0500, L500.2500 #### [facility] [address] [place], [address] Bilirubin Test strip Ql (U)O rdered By: Balwinder Alves on 03-02-2025 Bilirubin Ql (U) Negative Negative [facility] Ketones Test strip Ql (U)Ord ered By: Balwinder Alves on 03-02-2025 Ketones Ql (U) Negative Negative [facility] Nitrite Test strip Ql (U)Ord ered By: Balwinder Alves on 03-02-2025 Nitrite Ql (U) Positive High Negative [facility] Protein Test strip Ql (U)Ord ered By: Balwinder Alves on 03-02-2025 Protein Ql (U) 30 mg/dl High Negative [facility] Urinalysis, Routine (Dipstic k)on 03-02-2025 BILIRUBIN URINE Negative Normal Negative [facility] Comment on above: Order Comment: 102.2 Performed By: #### L 100.0500, L500.2500 #### [facility] [address] [place], [address] Clarity (U) Sl. Cloudy Normal Clear [facility] Comment on above: Order Comment: 102.2 Performed By: #### L 100.0500, L500.2500 #### [facility] [address] [place], [address] Color (U) Yellow Normal Yellow [facility] Comment on above: Order Comment: 102.2 Performed By: #### L 100.0500, L500.2500 #### [facility] [address] [place], [address] GLUCOSE, UR Normal Normal Normal [facility] Comment on above: Order Comment: 102.2 Performed By: #### L 100.0500, L500.2500 #### [facility] [address] [place], [address] KETONE UR Negative Normal Negative [facility] Comment on above: Order Comment: 102.2 Performed By: #### L 100.0500, L500.2500 #### [facility] [address] [place], [address] LEUK ESTERASE 500 /ul Abnormal Negative [facility] Comment on above: Order Comment: 102.2 Performed By: #### L 100.0500, L500.2500 #### [facility] [address] [place], [address] Nitrite Ql (U) Positive Abnormal Negative [facility] Comment on above: Order Comment: 102.2 Performed By: #### L 100.0500, L500.2500 #### [facility] [address] [place], [address] OCCULT BLOOD-UR 50 /ul Abnormal Negative [facility] Comment on above: Order Comment: 102.2 Performed By: #### L 100.0500, L500.2500 #### [facility] [address] [place], [address] pH UR 6.0 Normal 5.0 - 8.0 [facility] Comment on above: Order Comment: 102.2 Performed By: #### L 100.0500, L500.2500 #### [facility] [address] [place], [address] PROT DIPSTX 30 mg/dl Abnormal Negative [facility] Comment on above: Order Comment: 102.2 Performed By: #### L 100.0500, L500.2500 #### [facility] [address] [place], [address] SP.GR. DIPSTX 1.010 Normal 1.002-1.030 [facility] Comment on above: Order Comment: 102.2 Performed By: #### L 100.0500, L500.2500 #### [facility] [address] [place], [address] UROBILI Normal Normal Normal [facility] Comment on above: Order Comment: 102.2 Performed By: #### L 100.0500, L500.2500 #### [facility] [address] [place], [address] Urine clarityOrdered By: Javed Alves on 03-02-2025 Clarity (U) Sl. Cloudy Clear [facility] Urine color determinationOrd ered By: Balwinder Alves on 03-02-2025 Color (U) Yellow Yellow [facility] Urine cultureOrdered By: Javed Alves on 03-02-2025 Bacteria identified Cx Nom (U) ESBL Escherichia coli Abnormal [facility] Urine glucose detectionOrder ed By: Balwinder Alves on 03-02-2025 Glucose Ql (U) Normal mg/dl Normal [facility] Urine leukocyte esterase det ection by dipstickOrdered By: Balwinder Alves on 03-02-2025 Leukocyte esterase Test strip Ql (U) 500 /ul High Negative [facility] Urine pHOrdered By: Balwinder blackman on 03-02-2025 pH (U) 6.0 [pH] 5.0 - 8.0 [facility] Urine specific gravity measu rementOrdered By: Balwinder Alves on 03-02-2025 Specific gravity (U) [Rel density] 1.010 1.002-1.030 [facility] Urine urobilinogen measureme ntOrdered By: Balwinder Alves on 03-02-2025 Urobilinogen Ql (U) Normal mg/dl Normal [facility] Urine Cultureon 02-10-2025 [facility] Copy of report sent to Infection Control Printer [id number] 02/09/25 08Amari MENDEZ. Urine Culture RESULTS CALLED TO AUSTEN GARCIA 02/09/25 0813 Alesia Barrera. REPORT READ BACK SAME. Urine Culture Urine Culture Urine Culture ESBL Escherichia coli [place] Count >100,000 MARKER ESBL producing OrganismA MARKER [...] S Tobramycin Islt PREM <=1 S Normal [facility] Comment on above: Performed By: #### L 100.0500, L500.2500 #### [facility] [address] [place] [address]. [place], [address] Bilirubin Test strip Ql (U)O rdered By: Balwinder Alves on 02-07-2025 Bilirubin Ql (U) Negative Negative [facility] Ketones Test strip Ql (U)Ord ered By: Balwinder Alves on 02-07-2025 Ketones Ql (U) Negative Negative [facility] Nitrite Test strip Ql (U)Ord ered By: Balwinder Alves on 02-07-2025 Nitrite Ql (U) Positive High Negative [facility] Protein Test strip Ql (U)Ord ered By: Balwinder Alves on 02-07-2025 Protein Ql (U) 15 mg/dl High Negative [facility] Urinalysis, Routine (Dipstic k)on 02-07-2025 Clarity (U) Clear Normal Clear [facility] Comment on above: Order Comment: 102.2 Performed By: #### L 100.0500, L500.2500 #### [facility] [address] [place], [address] Color (U) Yellow Normal Yellow [facility] Comment on above: Order Comment: 102.2 Performed By: #### L 100.0500, L500.2500 #### [facility] [address] [place], [address] BILIRUBIN URINE Negative Normal Negative [facility] Comment on above: Order Comment: 102.2 Performed By: #### L 100.0500, L500.2500 #### [facility] [address] [place], [address] GLUCOSE, UR Normal Normal Normal [facility] Comment on above: Order Comment: 102.2 Performed By: #### L 100.0500, L500.2500 #### [facility] [address] [place], [address] KETONE UR Negative Normal Negative [facility] Comment on above: Order Comment: 102.2 Performed By: #### L 100.0500, L500.2500 #### [facility] [address] [place], [address] LEUK ESTERASE 500 /ul Abnormal Negative [facility] Comment on above: Order Comment: 102.2 Performed By: #### L 100.0500, L500.2500 #### [facility] [address] [place], [address] Nitrite Ql (U) Positive Abnormal Negative [facility] Comment on above: Order Comment: 102.2 Performed By: #### L 100.0500, L500.2500 #### [facility] [address] [place], [address] OCCULT BLOOD-UR 25 /ul Abnormal Negative [facility] Comment on above: Order Comment: 102.2 Performed By: #### L 100.0500, L500.2500 #### [facility] [address] [place], [address] pH UR 6.5 Normal 5.0 - 8.0 [facility] Comment on above: Order Comment: 102.2 Performed By: #### L 100.0500, L500.2500 #### [facility] [address] [place], [address] PROT DIPSTX 15 mg/dl Abnormal Negative [facility] Comment on above: Order Comment: 102.2 Performed By: #### L 100.0500, L500.2500 #### [facility] [address] [place], [address] SP.GR. DIPSTX 1.005 Normal 1.002-1.030 [facility] Comment on above: Order Comment: 102.2 Performed By: #### L 100.0500, L500.2500 #### [facility] [address] [place], [address] UROBILI Normal Normal Normal [facility] Comment on above: Order Comment: 102.2 Performed By: #### L 100.0500, L500.2500 #### [facility] [address] [place], [address] Urine clarityOrdered By: Javed Alves on 02-07-2025 Clarity (U) Clear Clear [facility] Urine color determinationOrd ered By: Balwinder Alves on 02-07-2025 Color (U) Yellow Yellow [facility] Urine cultureOrdered By: Javed Alves on 02-07-2025 Bacteria identified Cx Nom (U) ESBL Escherichia coli Abnormal [facility] Urine glucose detectionOrder ed By: Balwinder Alves on 02-07-2025 Glucose Ql (U) Normal mg/dl Normal [facility] Urine leukocyte esterase det ection by dipstickOrdered By: Balwinder Alves on 02-07-2025 Leukocyte esterase Test strip Ql (U) 500 /ul High Negative [facility] Urine pHOrdered By: Balwinder blackman on 02-07-2025 pH (U) 6.5 [pH] 5.0 - 8.0 [facility] Urine specific gravity measu rementOrdered By: Balwinder Alves on 02-07-2025 Specific gravity (U) [Rel density] 1.005 1.002-1.030 [facility] Urine urobilinogen measureme ntOrdered By: Balwinder Alves on 02-07-2025 Urobilinogen Ql (U) Normal mg/dl Normal [facility] Urine Cultureon 01-27-2025 [facility] STRAIGHT CATH #1 Possible E.coli 0157. Confirmation testing unable to be performed, test discontinued at [facility]. Urine Culture [facility] 01/27[facility]25 1041 Lorrie Patterson. REPORT READ BACK BY . Urine Culture Copy of report sent to Infection Control Printer [id number] 01/27/25 1041 ESSENCE. Urine Culture ESBL Escherichia coli [place] Count 80,000-100,000 MARKER ESBL producing OrganismA MARKER ESBL producing OrganismA [place] Count 50,000-80,000 Proteus mirabilis Amikacin Islt PREM [...] TMP SMX Islt PREM <=20 S Normal [facility] Comment on above: Performed By: #### L 100.0500, L500.2500 #### [facility] [address] [place], [address] Urinalysis, Completeon 01-24 BILIRUBIN URINE Negative Normal Negative [facility] Comment on above: Order Comment: 102.2 Performed By: #### L 100.0500, L500.2500 #### [facility] [address] [place], [address] Clarity (U) Sl. Cloudy Normal Clear [facility] Comment on above: Order Comment: 102.2 Performed By: #### L 100.0500, L500.2500 #### [facility] [address] [place], [address] Color (U) Yellow Normal Yellow [facility] Comment on above: Order Comment: 102.2 Performed By: #### L 100.0500, L500.2500 #### [facility] [address] [place], [address] GLUCOSE, UR Normal Normal Normal [facility] Comment on above: Order Comment: 102.2 Performed By: #### L 100.0500, L500.2500 #### [facility] [address] [place], [address] KETONE UR Negative Normal Negative [facility] Comment on above: Order Comment: 102.2 Performed By: #### L 100.0500, L500.2500 #### [facility] [address] [place], [address] LEUK ESTERASE 500 /ul Abnormal Negative [facility] Comment on above: Order Comment: 102.2 Performed By: #### L 100.0500, L500.2500 #### [facility] [address] [place], [address] Nitrite Ql (U) Positive Abnormal Negative [facility] Comment on above: Order Comment: 102.2 Performed By: #### L 100.0500, L500.2500 #### [facility] [address] [place], [address] OCCULT BLOOD-UR 50 /ul Abnormal Negative [facility] Comment on above: Order Comment: 102.2 Performed By: #### L 100.0500, L500.2500 #### [facility] Laboratory [address] [place], [address] pH UR 6.5 Normal 5.0 - 8.0 [facility] Comment on above: Order Comment: 102.2 Performed By: #### L 100.0500, L500.2500 #### [facility] [address] [place], [address] PROT DIPSTX 15 mg/dl Abnormal Negative [facility] Comment on above: Order Comment: 102.2 Performed By: #### L 100.0500, L500.2500 #### [facility] [address] [place], [address] SP.GR. DIPSTX 1.010 Normal 1.002-1.030 [facility] Comment on above: Order Comment: 102.2 Performed By: #### L 100.0500, L500.2500 #### [facility] [address] [place], [address] UROBILI Normal Normal Normal [facility] Comment on above: Order Comment: 102.2 Performed By: #### L 100.0500, L500.2500 #### [facility] [address] [place], [address] Bilirubin Test strip Ql (U)O rdered By: Balwinder Alves on 01-23-2025 Bilirubin Ql (U) Negative Negative [facility] Epithelial cells.squamous LM Ql (Urine sed)Ordered By: Balwinder Alves on 01-23-2025 Epithelial cells.squamous LM.HPF (Urine sed) [#/Area] 0 /[HPF] 5-10 [facility] Glucose Ql (U)Ordered By: Jen Alves on 01-23-2025 Urine Glucose (UA) Normal mg/dl Normal [facility] Ketones Test strip Ql (U)Ord ered By: Balwinder Alves on 01-23-2025 Ketones Ql (U) Negative Negative [facility] Microscopic analysis of urin e for red blood cells (RBC)Ordered By: Balwinder Alves on 01-23-2025 Microscopic analysis of urine for red blood cells (RBC) 0-5 SEEN /hpf 0-5 [facility] Urine RBC 0-5 SEEN /hpf 0-5 [facility] Mucus LM Ql (Urine sed)Order ed By: Balwinder Alves on 01-23-2025 Mucus Ql (Urine sed) 0 SEEN /hpf [facility] Nitrite Test strip Ql (U)Ord ered By: Balwinder Alves on 01-23-2025 Nitrite Ql (U) Positive High Negative [facility] Protein Test strip Ql (U)Ord ered By: Balwinder Alves on 01-23-2025 Protein Ql (U) 15 mg/dl High Negative [facility] Squamous epithelial cells de tection in urine sediment by light microscopyOrdered By: Balwinder Alves on 01-23-2025 Epithelial cells.squamous LM Ql (Urine sed) 0-5 SEEN /hpf 5-10 [facility] Urine blood detectionOrdered By: Balwinder Alves on 01-23-2025 Urine Occult Blood 50 /ul High Negative [facility] Urine clarityOrdered By: Javed Alves on 01-23-2025 Clarity (U) Sl. Cloudy Clear [facility] Urine color determinationOrd ered By: Balwinder Alves on 01-23-2025 Color (U) Yellow Yellow [facility] Urine cultureOrdered By: Javed Alves on 01-23-2025 Bacteria identified Cx Nom (U) ESBL Escherichia coli Abnormal [facility] Bacteria identified Cx Nom (U) Proteus mirabilis Abnormal [facility] Urine glucose detectionOrder ed By: Balwinder Alves on 01-23-2025 Glucose Ql (U) Normal mg/dl Normal [facility] Urine leukocyte esterase det ection by dipstickOrdered By: Balwinder Alves on 01-23-2025 Leukocyte esterase Test strip Ql (U) 500 /ul High Negative [facility] Urine pHOrdered By: Balwinder blackman on 01-23-2025 pH (U) 6.5 [pH] 5.0 - 8.0 [facility] Urine sediment bacteria coun t by microscopy (number/high power field)Ordered By: Balwinder Alves on 01-23-2025 Bacteria LM.HPF (Urine sed) [#/Area] 2 /[HPF] None Seen [facility] Urine specific gravity measu rementOrdered By: Balwinder Alves on 01-23-2025 Specific gravity (U) [Rel density] 1.010 1.002-1.030 [facility] Urine urobilinogen measureme ntOrdered By: Balwinder Alves on 01-23-2025 Urobilinogen Ql (U) Normal mg/dl Normal [facility] Urobilinogen Ql (U)Ordered B y: Balwinder Alves on 01-23-2025 Urine Urobilinogen Normal mg/dl Normal [facility] White blood cell countOrdere d By: Balwinder Alves on 01-23-2025 Urine WBC 5-10 SEEN /hpf 0-5 [facility] White blood cell count 5-10 SEEN /hpf 0-5 [facility] Urine Cultureon 01-13-2025 URC #1 POSSIBLE ECOLI 0157. Unable to send to [facility] Laboratory for confirmation testing due to new [facility] policies regarding serotyping and virulence profiling. Urine Culture Copy of report sent to Infection Control Printer [id number] 01/11/25 1618 ANDREA. ESBL Escherichia coli [place] Count 50,000-80,000 MARKER ESBL producing OrganismA MARKER ESBL producing OrganismA [place] Count 50,000-80,000 Escherichia coli [place] Count 50,000-80,000 ESBL Escherichia coli: REACTION Proteus [...] TMP SMX Islt PREM <=20 S Normal [facility] Comment on above: Performed By: #### M 100.2200, L400 #### [facility] [address] [facility] [place], [address] Bilirubin Test strip Ql (U)O rdered By: Balwinder Alves on 01-09-2025 Bilirubin Ql (U) Negative Negative [facility] Glucose Ql (U)Ordered By: Jen Alves on 01-09-2025 Urine Glucose (UA) Normal mg/dl Normal [facility] Ketones Test strip Ql (U)Ord ered By: Balwinder Alves on 01-09-2025 Ketones Ql (U) Negative Negative [facility] Nitrite Test strip Ql (U)Ord ered By: Balwinder Alves on 01-09-2025 Nitrite Ql (U) Positive High Negative [facility] Protein Test strip Ql (U)Ord ered By: Balwinder Alves on 01-09-2025 Protein Ql (U) 30 mg/dl High Negative [facility] Urinalysis, Routine (Dipstic k)on 01-09-2025 BILIRUBIN URINE Negative Normal Negative [facility] Comment on above: Order Comment: ALFA TER SPECIMEN Performed By: #### M 100.2200, L400.2010 #### [facility] [address] [place], [address] Clarity (U) Cloudy Normal Clear [facility] Comment on above: Order Comment: ALFA TER SPECIMEN Performed By: #### M , L4.2010 #### [facility] [address] [place], [address] Color (U) Yellow Normal Yellow [facility] Comment on above: Order Comment: ALFA TER SPECIMEN Performed By: #### M , L4.2010 #### [facility] [address] [place], [address] GLUCOSE, UR Normal Normal Normal [facility] Comment on above: Order Comment: ALFA TER SPECIMEN Performed By: #### M , L4 #### [facility] [address] [place], [address] KETONE UR Negative Normal Negative [facility] Comment on above: Order Comment: ALFA TER SPECIMEN Performed By: #### M , L4 #### [facility] [address] [place], [address] LEUK ESTERASE 500 /ul Abnormal Negative [facility] Comment on above: Order Comment: ALFA TER SPECIMEN Performed By: #### M , L4 #### [facility] [address] [place], [address] Nitrite Ql (U) Positive Abnormal Negative [facility] Comment on above: Order Comment: ALFA TER SPECIMEN Performed By: #### M , L4 #### [facility] [address] [place], [address] OCCULT BLOOD-UR 150 /ul Abnormal Negative [facility] Comment on above: Order Comment: ALFA TER SPECIMEN Performed By: #### M , L4 #### [facility] [address] [place], [address] pH UR 6.5 Normal 5.0 - 8.0 [facility] Comment on above: Order Comment: ALFA TER SPECIMEN Performed By: #### M 100.2200, L4.2010 #### [facility] [address] [place], [address] PROT DIPSTX 30 mg/dl Abnormal Negative [facility] Comment on above: Order Comment: ALFA TER SPECIMEN Performed By: #### M 100.2200, L400.2010 #### [facility] [address] [place], [address] SP.GR. DIPSTX 1.010 Normal 1.002-1.030 [facility] Comment on above: Order Comment: ALFA TER SPECIMEN Performed By: #### M 100.0, L4.2010 #### [facility] [address] [place], [address] UROBILI Normal Normal Normal [facility] Comment on above: Order Comment: ALFA TER SPECIMEN Performed By: #### M 100.2199, L4.2010 #### [facility] [address] [place], [address] Urine blood detectionOrdered By: Balwinder Alves on 01-09-2025 Urine Occult Blood 150 /ul High Negative [facility] Urine clarityOrdered By: Javed Alves on 01-09-2025 Clarity (U) Cloudy Clear [facility] Urine color determinationOrd ered By: Balwinder Alves on 01-09-2025 Color (U) Yellow Yellow [facility] Urine cultureOrdered By: Javed Alves on 01-09-2025 Bacteria identified Cx Nom (U) ESBL Escherichia coli Abnormal [facility] Bacteria identified Cx Nom (U) Escherichia coli Abnormal [facility] Bacteria identified Cx Nom (U) Proteus mirabilis Abnormal [facility] Urine glucose detectionOrder ed By: Balwinder Alves on 01-09-2025 Glucose Ql (U) Normal mg/dl Normal [facility] Urine leukocyte esterase det ection by dipstickOrdered By: Balwinder Alves on 01-09-2025 Leukocyte esterase Test strip Ql (U) 500 /ul High Negative [facility] Urine pHOrdered By: Balwinder blackman on 01-09-2025 pH (U) 6.5 [pH] 5.0 - 8.0 [facility] Urine specific gravity measu rementOrdered By: Balwinder Nelson on 01-09-2025 Specific gravity (U) [Rel density] 1.010 1.002-1.030 [facility] Urine urobilinogen measureme ntOrdered By: Balwinder Alves on 01-09-2025 Urobilinogen Ql (U) Normal mg/dl Normal [facility] Urobilinogen Ql (U)Ordered B y: Balwinder Alves on 01-09-2025 Urine Urobilinogen Normal mg/dl Normal [facility] Urine Cultureon 01-07-2025 URC #2 Possible E.coli 0157. Unable to send to [facility] Laboratory for confirmation testing due to new [facility] policies regarding serotyping and virulence profiling. Urine Culture Copy of report sent to Infection Control Printer [id number] 01/06/25 1319 ANDREA. Urine Culture RESULTS CALLED TO TRISH BOYCE 01/06/25 1321 Alesia Barrera. REPORT READ BACK . Proteus mirabilis [place] Count 50,000-80,000 ESBL Escherichia coli ESBL Escherichia [...] <=0.25 Tobramycin Islt PREM <=1 S Normal [facility] Comment on above: Performed By: #### M .2199, #### [facility] [address] [place], [address] Urinalysis, Routine (Dipstic k)on 01-03-2025 BILIRUBIN URINE Negative Normal Negative [facility] Comment on above: Order Comment: CLEAN CATCH Performed By: #### M , L4 #### [facility] [address] [place], [address] Clarity (U) Sl. Cloudy Normal Clear [facility] Comment on above: Order Comment: CLEAN CATCH Performed By: #### M #### [facility] [address] [place], [address] Color (U) Yellow Normal Yellow [facility] Comment on above: Order Comment: CLEAN CATCH Performed By: #### M L4 #### [facility] [address] [place], [address] GLUCOSE, UR Normal Normal Normal [facility] Comment on above: Order Comment: CLEAN CATCH Performed By: #### M 100 L4 #### [facility] [address] [place], [address] KETONE UR Negative Normal Negative [facility] Comment on above: Order Comment: CLEAN CATCH Performed By: #### M 100, L4 #### [facility] [address] [place], [address] LEUK ESTERASE 500 /ul Abnormal Negative [facility] Comment on above: Order Comment: CLEAN CATCH Performed By: #### M 100, L4 #### [facility] [address] [place], [address] Nitrite Ql (U) Positive Abnormal Negative [facility] Comment on above: Order Comment: CLEAN CATCH Performed By: #### M 100.2200, L400.2010 #### [facility] [address] [place], [address] OCCULT BLOOD-UR 150 /ul Abnormal Negative [facility] Comment on above: Order Comment: CLEAN CATCH Performed By: #### M 100.2199, L4.2010 #### [facility] [address] [place], [address] pH UR 6.5 Normal 5.0 - 8.0 [facility] Comment on above: Order Comment: CLEAN CATCH Performed By: #### M 100.2199, L400.2010 #### [facility] [address] [place], [address] PROT DIPSTX 30 mg/dl Abnormal Negative [facility] Comment on above: Order Comment: CLEAN CATCH Performed By: #### M 100.2199, L400 #### [facility] [address] [place], [address] SP.GR. DIPSTX 1.010 Normal 1.002-1.030 [facility] Comment on above: Order Comment: CLEAN CATCH Performed By: #### M 100.2199, L400 #### [facility] [address] [place], [address] UROBILI Normal Normal Normal [facility] Comment on above: Order Comment: CLEAN CATCH Performed By: #### M 100.2199, L400.2010 #### [facility] [address] [place], [address] Bilirubin Test strip Ql (U)O rdered By: Balwinder Alves on 01-02-2025 Bilirubin Ql (U) Negative Negative [facility] Glucose Ql (U)Ordered By: Jen Alves on 01-02-2025 Urine Glucose (UA) Normal mg/dl Normal [facility] Ketones Test strip Ql (U)Ord ered By: Balwinder Alves on 01-02-2025 Ketones Ql (U) Negative Negative [facility] Nitrite Test strip Ql (U)Ord ered By: Balwinder Alves on 01-02-2025 Nitrite Ql (U) Positive High Negative [facility] Protein Test strip Ql (U)Ord ered By: Balwinder Alves on 01-02-2025 Protein Ql (U) 30 mg/dl High Negative [facility] Urine blood detectionOrdered By: Balwinder Alves on 01-02-2025 Urine Occult Blood 150 /ul High Negative [facility] Urine clarityOrdered By: Javed Alves on 01-02-2025 Clarity (U) Sl. Cloudy Clear [facility] Urine color determinationOrd ered By: Balwinder Alves on 01-02-2025 Color (U) Yellow Yellow [facility] Urine cultureOrdered By: Javed Alves on 01-02-2025 Bacteria identified Cx Nom (U) Proteus mirabilis Abnormal [facility] Bacteria identified Cx Nom (U) ESBL Escherichia coli Abnormal [facility] Urine glucose detectionOrder ed By: Balwinder Alves on 01-02-2025 Glucose Ql (U) Normal mg/dl Normal [facility] Urine leukocyte esterase det ection by dipstickOrdered By: Balwinder Alves on 01-02-2025 Leukocyte esterase Test strip Ql (U) 500 /ul High Negative [facility] Urine pHOrdered By: Balwinder blackman on 01-02-2025 pH (U) 6.5 [pH] 5.0 - 8.0 [facility] Urine specific gravity measu rementOrdered By: Balwinder Alves on 01-02-2025 Specific gravity (U) [Rel density] 1.010 1.002-1.030 [facility] Urine urobilinogen measureme ntOrdered By: Balwinder Alves on 01-02-2025 Urobilinogen Ql (U) Normal mg/dl Normal [facility] Urobilinogen Ql (U)Ordered B y: Balwinder Alves on 01-02-2025 Urine Urobilinogen Normal mg/dl Normal [facility] Absolute lymphocyte countOrd ered By: Balwinder Alves on 12-26-2024 Lymphocytes Auto (Unsp spec) [#/Vol] 1.77 10*3/uL 0.83-4.51 [facility] Absolute neutrophil countOrd ered By: Balwinder Alves on 12-26-2024 Neutrophils (Bld) [#/Vol] 4.6 10*3/uL 2.0-7.7 [facility] Anion gap in Serum or Plasma Ordered By: Balwinder Alves on 12-26-2024 Anion gap [Moles/Vol] 9 mmol/L 5- [facility] Automated lymphocyte count a s percentage of total leukocytesOrdered By: Balwinder Alves on 12-26-2024 Lymphocytes/100 WBC Auto (Unsp spec) 24.8 % [facility] BUN/creatinine ratioOrdered By: Balwinder Alves on 12-26-2024 Urea nitrogen/Creatinine [Mass ratio] 12.2 mg/mg - [facility] Basic Metabolic Profile (BMP )on 12-26-2024 BUN/CRE 12.2 RATIO Normal 07-24 [facility] Comment on above: Order Comment: 102-2 Performed By: #### L 500.2500, L100.0100 #### [facility] [address] [place], [address] Calcium [Mass/Vol] 9.1 mg/dL Normal 7.6-11.0 [facility] Comment on above: Order Comment: 102-2 Performed By: #### L 500.2500, L100.0100 #### [facility] [address] [place], [address] Chloride [Moles/Vol] 99 mmol/L Normal 98-108 [facility] Comment on above: Order Comment: 102-2 Performed By: #### L 500.2500, L100.0100 #### [facility] [address] [place], [address] CO2 [Moles/Vol] 29.0 mmol/L Normal 21.0-32.0 [facility] Comment on above: Order Comment: 102-2 Performed By: #### L 500.2500, L100.0100 #### [facility] [address] [place], [address] Creatinine [Mass/Vol] 0.67 mg/dL Low 0.70-1.[address] [facility] Comment on above: Order Comment: 102-2 Performed By: #### L 500.2500, L100.0100 #### [facility] [address] [place], [address] GAP 9 Normal 5-15 [facility] Comment on above: Order Comment: 102-2 Performed By: #### L 500.2500, L100.0100 #### [facility] [address] [place], [address] GFR/1.73 sq M.predicted among non-blacks MDRD (S/P/Bld) [Vol rate/Area] 88 mL/min/{1.73_m2} Normal >60 [facility] Comment on above: Order Comment: 102-2 Result Comment: mL/m in/1.73m2 CKD-EPI Creatinine Equation (2020) Performed By: #### L 500.2500, L100.0100 #### [facility] [address] [place], [address] Glucose [Mass/Vol] 215 mg/dL High 70-99 [facility] Comment on above: Order Comment: 102-2 Performed By: #### L 500.2500, L100.0100 #### [facility] [address] [place], [address] Potassium [Moles/Vol] 4.6 mmol/L Normal 3.3-5.[address] [facility] Comment on above: Order Comment: 102-2 Performed By: #### L 500.2500, L100.0100 #### [facility] [address] [place], [address] Sodium [Moles/Vol] 137 mmol/L Normal 133-145 [facility] Comment on above: Order Comment: 102-2 Performed By: #### L 500.2500, L100.0100 #### [facility] [address] [place], [address] Urea nitrogen [Mass/Vol] 8 mg/dL Normal 4-19 [facility] Comment on above: Order Comment: 102-2 Performed By: #### L 500.2500, L100.0100 #### [facility] [address] [place], [address] Basophil percentageOrdered B y: Balwinder Alves on 12-26-2024 Basophils/100 WBC (Bld) 0.6 % 0-[address] [facility] CBC W/Diff, Automatedon 12-04 Absolute Lymph 1.77 X10 3/uL Normal 0.83-4.51 [facility] Comment on above: Order Comment: 102-2 Performed By: #### L 500.2500, L100.0100 #### [facility] [address] [place], [address] Absolute Neut 4.6 X10 3/uL Normal 2.0-7.7 [facility] Comment on above: Order Comment: 102-2 Performed By: #### L 500.2500, L100.0100 #### [facility] [address] [place], [address] Basophils/100 WBC (Bld) 0.6 % Normal 0-[address] [facility] Comment on above: Order Comment: 102-2 Performed By: #### L 500.2500, L100.0100 #### [facility] [address] [place], [address] Eosinophils/100 WBC (Bld) 2.9 % Normal 0-5 [facility] Comment on above: Order Comment: 102-2 Performed By: #### L 500.2500, L100.0100 #### [facility] [address] [place], [address] Erythrocyte distribution width (RBC) [Ratio] 13.9 % Normal 11.6-14.6 [facility] Comment on above: Order Comment: 102-2 Performed By: #### L 500.2500, L100.0100 #### [facility] [address] [place], [address] Hematocrit (Bld) [Volume fraction] 35.6 % Low 37-47 [facility] Comment on above: Order Comment: 102-2 Performed By: #### L 500.2500, L100.0100 #### [facility] [address] [place], [address] Hemoglobin (Bld) [Mass/Vol] 10.9 g/dL Low 12.0-15.0 [facility] Comment on above: Order Comment: 102-2 Performed By: #### L 500.2500, L100.0100 #### [facility] [address] [place], [address] IG% 0.700 Normal 0.0-0.9 [facility] Comment on above: Order Comment: 102-2 Result Comment: IG% - Immature Granulocytes (promyelocytes, myelocytes and metamyelocytes) > 1% indicates that a LEFT SHIFT is Present. Performed By: #### L 500.2500, L100.0100 #### [facility] [address] [place], [address] Lymphocytes/100 WBC (Bld) 24.8 % Normal 19-41 [facility] Comment on above: Order Comment: 102-2 Performed By: #### L 500.2500, L100.0100 #### [facility] [address] [place], [address] MCH (RBC) [Entitic mass] 28.8 pg Normal 27.0-32.0 [facility] Comment on above: Order Comment: 102-2 Performed By: #### L 500.2500, L100.0100 #### [facility] [address] [place], [address] MCHC (RBC) [Mass/Vol] 30.6 g/dL Low 32-[address] [facility] Comment on above: Order Comment: 102-2 Performed By: #### L 500.2500, L100.0100 #### [facility] [address] [place], [address] MCV (RBC) [Entitic vol] 93.9 fL Normal 81-[address] [facility] Comment on above: Order Comment: 102-2 Performed By: #### L 500.2500, L100.0100 #### [facility] [address] [place], [address] Monocytes/100 WBC (Bld) 6.3 % Normal 0-10 [facility] Comment on above: Order Comment: 102-2 Performed By: #### L 500.2500, L100.0100 #### [facility] [address] [place], [address] Neutrophils/100 WBC (Bld) 64.7 % Normal 47-70 [facility] Comment on above: Order Comment: 102-2 Performed By: #### L 500.2500, L100.0100 #### [facility] [address] [place], [address] Nucleated RBC (Bld) [#/Vol] 0 10*3/uL Normal 0-5 [facility] Comment on above: Order Comment: 102-2 Performed By: #### L 500.2500, L100.0100 #### [facility] [address] [place], [address] Platelet mean volume (Bld) [Entitic vol] 8.6 fL Normal 6.2-12.0 [facility] Comment on above: Order Comment: 102-2 Performed By: #### L 500.2500, L100.0100 #### [facility] [address] [place], [address] Platelets (Bld) [#/Vol] 221 10*3/uL Normal 150-450 [facility] Comment on above: Order Comment: 102-2 Performed By: #### L 500.2500, L100.0100 #### [facility] [address] [place], [address] RBC (Bld) [#/Vol] 3.79 10*6/uL Low 4.2-5.4 [facility] Comment on above: Order Comment: 102-2 Performed By: #### L 500.2500, L100.0100 #### [facility] [address] [place], [address] RDW SD 47.6 fl High 35.1-43.9 [facility] Comment on above: Order Comment: 102-2 Performed By: #### L 500.2500, L100.0100 #### [facility] [address] [place], [address] WBC (Bld) [#/Vol] 7.1 10*3/uL Normal 4.4-11.0 [facility] Comment on above: Order Comment: 102-2 Performed By: #### L 500.2500, L100.0100 #### [facility] [address] [place], [address] Carbon dioxide, total [Moles /volume] in Central venous bloodOrdered By: Balwinder Alves on 12-26-2024 CO2 [Moles/Vol] 29.0 mmol/L 21.0-32.0 [facility] Chloride assayOrdered By: Jen Alves on 12-26-2024 Chloride [Moles/Vol] 99 mmol/L 98-108 [facility] Eosinophil percentageOrdered By: Balwinder Alves on 12-26-2024 Eosinophils/100 WBC (Bld) 2.9 % 0-5 [facility] Erythrocyte distribution wid th (RBC) [Ratio]Ordered By: Balwinder Alves on 12-26-2024 Erythrocyte distribution width (RBC) [Entitic vol] 47.6 fL High 35.1-43.9 [facility] Erythrocyte distribution wid th ratioOrdered By: Balwinder Alves on 12-26-2024 Erythrocyte distribution width (RBC) [Ratio] 13.9 % 11.6-14.6 [facility] Erythrocyte distribution wid th standard deviationOrdered By: Balwinder Alves on 12-26-2024 Erythrocyte distribution width (RBC) [Ratio] 47.6 fl High 35.1-43.9 [facility] GFR/1.73 sq M.predicted philipp g non-blacks MDRD (S/P/Bld) [Vol rate/Area]Ordered By: Balwinder Alves on 12-26-2024 Estimated GFR (MDRD) Non-Af Amer 88 >60 [facility] Comment on above: mL/min/1.73m2 CKD-EP I Creatinine Equation (2020) Glomerular filtration rate ( GFR) estimation/1.73 sq m using serum, plasma, or whole bOrdered By: Balwinder Alves on 12-26-2024 GFR/1.73 sq M.predicted among non-blacks MDRD (S/P/Bld) [Vol rate/Area] 88 mL/min/{1.73_m2} >60 [facility] Comment on above: mL/min/1.73m2 CKD-EP I Creatinine Equation (2020) Hematocrit Auto (Bld) [Volum e fraction]Ordered By: Balwinder Alves on 12-26-2024 Hematocrit (Bld) [Volume fraction] 35.6 % Low 37-47 [facility] Hemoglobin measurementOrdere d By: Balwinder Alves on 12-26-2024 Hemoglobin (Bld) [Mass/Vol] 10.9 g/dL Low 12.0-15.0 [facility] Immature granulocytes/100 WB C Auto (Bld)Ordered By: Balwinder Alves on 12-26-2024 Immature granulocytes/100 WBC (Bld) 0.700 % 0.0-0.9 [facility] Comment on above: IG% - Immature Granu locytes (promyelocytes, myelocytes and metamyelocytes) > 1% indicates that a LEFT SHIFT is Present. Lymphocytes Auto (Unsp spec) [#/Vol]Ordered By: Balwinder Alves on 12-26-2024 Lymphocytes (Bld) [#/Vol] 1.77 10*3/uL 0.83-4.51 [facility] Lymphocytes/100 WBC Auto (Un sp spec)Ordered By: Balwinder Alves on 12-26-2024 Lymphocytes/100 WBC (Bld) 24.8 % 19-41 [facility] MCV (mean corpuscular volume ) determinationOrdered By: Balwinder Alves on 12-26-2024 MCV (RBC) [Entitic vol] 93.9 fL 81-[address] [facility] Mean corpuscular hemoglobin (MCH) determinationOrdered By: Balwindre Alves on 12-26-2024 MCH (RBC) [Entitic mass] 28.8 pg 27.0-32.0 [facility] Mean corpuscular hemoglobin concentration (MCHC) determinationOrdered By: Balwinder Alves on 12-26-2024 MCHC (RBC) [Mass/Vol] 30.6 g/dL Low 32-[address] [facility] Mean platelet volume determi nationOrdered By: Balwinder Alves on 12-26-2024 Platelet mean volume (Bld) [Entitic vol] 8.6 fL 6.2-12.0 [facility] Monocyte percentageOrdered B y: Balwinder Alves on 12-26-2024 Monocytes/100 WBC (Bld) 6.3 % 0-[address] [facility] Neutrophil percentageOrdered By: Balwinder Alves on 12-26-2024 Neutrophils/100 WBC (Bld) 64.7 % 47-70 [facility] Nucleated red blood cell per centageOrdered By: Balwinder Alves on 12-26-2024 Nucleated RBC/100 WBC (Bld) [Ratio] 0 % 0-5 [facility] Platelet countOrdered By: Jen Alves on 12-26-2024 Platelets (Bld) [#/Vol] 221 10*3/uL 150-450 [facility] Potassium (Unsp spec) [Mass/ Vol]Ordered By: Balwinder Alves on 12-26-2024 Potassium [Moles/Vol] 4.6 mmol/L 3.3-5.[address] [facility] Potassium measurement (mass/ volume)Ordered By: Balwinder Alves on 12-26-2024 Potassium (Unsp spec) [Mass/Vol] 4.6 mmol/L 3.3-5.1 [facility] RBC Auto (Bld) [#/Vol]Ordere d By: Balwinder Alves on 12-26-2024 RBC (Bld) [#/Vol] 3.79 10*6/uL Low 4.2-5.4 [facility] Serum creatinine measurement (mass/volume)Ordered By: Balwinder Alves on 12-26-2024 Creatinine [Mass/Vol] 0.67 mg/dL Low 0.70-1.[address] [facility] Serum glucose measurement (m ass/volume)Ordered By: Balwinder Alves on 12-26-2024 Glucose [Mass/Vol] 215 mg/dL High 70-99 [facility] Serum or plasma calcium jacqueline urement (mass/volume)Ordered By: Balwinder Alves on 12-26-2024 Calcium [Mass/Vol] 9.1 mg/dL 7.6-11.0 [facility] Serum or plasma urea nitroge n measurement (mass/volume)Ordered By: Balwinder Alves on 12-26-2024 Urea nitrogen [Mass/Vol] 8 mg/dL 4-19 [facility] Sodium levelOrdered By: Balwinder Alves on 12-26-2024 Sodium [Moles/Vol] 137 mmol/L 133-145 [facility] White blood cell (WBC) count Ordered By: Balwinder Alves on 12-26-2024 WBC (Bld) [#/Vol] 7.1 10*3/uL 4.4-11.0 [facility] Anion gap in Serum or Plasma Ordered By: Balwinder Alves on 12-16-2024 Anion gap [Moles/Vol] 12 mmol/L - [facility] BUN/creatinine ratioOrdered By: Balwinder Alves on 12-16-2024 Urea nitrogen/Creatinine [Mass ratio] 12.7 mg/mg 07-24 [facility] Basic Metabolic Profile (BMP )on 12-16-2024 BUN/CRE 12.7 RATIO Normal 07-24 [facility] Comment on above: Performed By: #### L 100.0500, L500.2500 #### [facility] [address] [place], [address] Calcium [Mass/Vol] 9.5 mg/dL Normal 7.6-11.0 [facility] Comment on above: Performed By: #### L 100.0500, L500.2500 #### [facility] [address] [place], [address] Chloride [Moles/Vol] 98 mmol/L Normal 98-108 [facility] Comment on above: Performed By: #### L 100.0500, L500.2500 #### [facility] [address] [place], [address] CO2 [Moles/Vol] 26.7 mmol/L Normal 21.0-32.0 [facility] Comment on above: Performed By: #### L 100.0500, L500.2500 #### [facility] [address] [place], [address] Creatinine [Mass/Vol] 0.67 mg/dL Low 0.70-1.[address] [facility] Comment on above: Performed By: #### L 100.0500, L500.2500 #### [facility] [address] [place], [address] GAP 12 Normal 5-15 [facility] Comment on above: Performed By: #### L 100.0500, L500.2500 #### [facility] [address] [place], [address] GFR/1.73 sq M.predicted among non-blacks MDRD (S/P/Bld) [Vol rate/Area] 88 mL/min/{1.73_m2} Normal >60 [facility] Comment on above: Result Comment: mL/m in/1.73m2 CKD-EPI Creatinine Equation (2020) Performed By: #### L 100.0500, L500.2500 #### [facility] [address] [place], [address] Glucose [Mass/Vol] 201 mg/dL High 70-99 [facility] Comment on above: Performed By: #### L 100.0500, L500.2500 #### [facility] [address] [place], [address] Potassium [Moles/Vol] 4.6 mmol/L Normal 3.3-5.[address] [facility] Comment on above: Performed By: #### L 100.0500, L500.2500 #### [facility] [address] [place], [address] Sodium [Moles/Vol] 137 mmol/L Normal 133-145 [facility] Comment on above: Performed By: #### L 100.0500, L500.2500 #### [facility] [address] [place], [address] Urea nitrogen [Mass/Vol] 8 mg/dL Normal 4-19 [facility] Comment on above: Performed By: #### L 100.0500, L500.2500 #### [facility] [address] [place], [address] CBC-Complete Blood Cnt No Di ffon 12-16-2024 Erythrocyte distribution width (RBC) [Ratio] 13.8 % Normal 11.6-14.6 [facility] Comment on above: Performed By: #### L 100.0500, L500.2500 #### [facility] [address] [place], [address] Hematocrit (Bld) [Volume fraction] 36.2 % Low 37-47 [facility] Comment on above: Performed By: #### L 100.0500, L500.2500 #### [facility] [address] [place], [address] Hemoglobin (Bld) [Mass/Vol] 11.0 g/dL Low 12.0-15.0 [facility] Comment on above: Performed By: #### L 100.0500, L500.2500 #### [facility] [address] [place], [address] MCH (RBC) [Entitic mass] 28.2 pg Normal 27.0-32.0 [facility] Comment on above: Performed By: #### L 100.0500, L500.2500 #### [facility] [address] [place], [address] MCHC (RBC) [Mass/Vol] 30.4 g/dL Low 32-[address] [facility] Comment on above: Performed By: #### L 100.0500, L500.2500 #### [facility] [address] [place], [address] MCV (RBC) [Entitic vol] 92.8 fL Normal 81-[address] [facility] Comment on above: Performed By: #### L 100.0500, L500.2500 #### [facility] [address] [place], [address] Platelet mean volume (Bld) [Entitic vol] 8.4 fL Normal 6.2-12.0 [facility] Comment on above: Performed By: #### L 100.0500, L500.2500 #### [facility] [address] [place], [address] Platelets (Bld) [#/Vol] 231 10*3/uL Normal 150-450 [facility] Comment on above: Performed By: #### L 100.0500, L500.2500 #### [facility] [address] [place], [address] RBC (Bld) [#/Vol] 3.90 10*6/uL Low 4.2-5.4 [facility] Comment on above: Performed By: #### L 100.0500, L500.2500 #### [facility] [address] [place], [address] RDW SD 47.0 fl High 35.1-43.9 [facility] Comment on above: Performed By: #### L 100.0500, L500.2500 #### [facility] [address] [place], [address] WBC (Bld) [#/Vol] 7.8 10*3/uL Normal 4.4-11.0 [facility] Comment on above: Performed By: #### L 100.0500, L500.2500 #### [facility] [address] [place], [address] Calculated very low density lipoprotein (VLDL) cholesterol measurementOrdered By: Balwinder Alves on 12-16-2024 Calculated very low density lipoprotein (VLDL) cholesterol measurement 32 mg/dL 5-40 [facility] VLDL Cholesterol 32 mg/dL 5-40 [facility] Carbon dioxide, total [Moles /volume] in Central venous bloodOrdered By: Balwinder Alves on 12-16-2024 CO2 [Moles/Vol] 26.7 mmol/L 21.0-32.0 [facility] Chloride assayOrdered By: Jen Alves on 12-16-2024 Chloride [Moles/Vol] 98 mmol/L 98-108 [facility] Erythrocyte distribution wid th (RBC) [Ratio]Ordered By: Balwinder Alves on 12-16-2024 Erythrocyte distribution width (RBC) [Entitic vol] 47.0 fL High 35.1-43.9 [facility] Erythrocyte distribution wid th ratioOrdered By: Balwinder Alves on 12-16-2024 Erythrocyte distribution width (RBC) [Ratio] 13.8 % 11.6-14.6 [facility] Erythrocyte distribution wid th standard deviationOrdered By: Balwinder Alves on 12-16-2024 Erythrocyte distribution width (RBC) [Ratio] 47.0 fl High 35.1-43.9 [facility] GFR/1.73 sq M.predicted philipp g non-blacks MDRD (S/P/Bld) [Vol rate/Area]Ordered By: Balwinder Alves on 12-16-2024 Estimated GFR (MDRD) Non-Af Amer 88 >60 [facility] Comment on above: mL/min/1.73m2 CKD-EP I Creatinine Equation (2020) Glomerular filtration rate ( GFR) estimation/1.73 sq m using serum, plasma, or whole bOrdered By: Balwinder Alves on 12-16-2024 GFR/1.73 sq M.predicted among non-blacks MDRD (S/P/Bld) [Vol rate/Area] 88 mL/min/{1.73_m2} >60 [facility] Comment on above: mL/min/1.73m2 CKD-EP I Creatinine Equation (2020) Hematocrit Auto (Bld) [Volum e fraction]Ordered By: Balwinder Alves on 12-16-2024 Hematocrit (Bld) [Volume fraction] 36.2 % Low 37-47 [facility] Hemoglobin A1con 12-16-2024 HbA1c (Bld) [Mass fraction] 8.4 % Normal <=5.6 [facility] Comment on above: Performed By: #### L 100.0500, L500.2500 #### [facility] [address] [place], [place], [id number] Hemoglobin A1c percentageOrd ered By: Balwinder Alves on 12-16-2024 HbA1c (Bld) [Mass fraction] 8.4 % >5.7 [facility] Hemoglobin measurementOrdere d By: Balwinder Alves on 12-16-2024 Hemoglobin (Bld) [Mass/Vol] 11.0 g/dL Low 12.0-15.0 [facility] L506.1001on 12-16-2024 Vitamin D 25-OH 31.6 ng/mL Normal 30-100 [facility] Comment on above: Result Comment: Feli min D Status Deficiency: <20 ng/mL (50nmol/L) Insufficiency: 20-30 ng/mL (50-75 nmol/L) Sufficiency: 30-100 ng/mL (75-250 nmol/L) Toxicity: >100 ng/mL (>250 nmol/L) Performed By: #### L 100.0500, L500.2500 #### [facility] [address] [place], [place], [address] LDL calc ser/plasOrdered By: Balwinder Alves on 12-16-2024 Cholesterol in LDL [Mass/Vol] 22 mg/dL [facility] Comment on above: Xvqjhyswhc=109-585 m g/dL & Higher Werb=011 mg/dL or greater LDL Cholesterol, Calculated 22 mg/dL [facility] Comment on above: Psdfuvbrcj=512-408 m g/dL & Higher Cufa=065 mg/dL or greater Lipid Profileon 12-16-2024 CHOL:HDL 2.22 Normal [facility] Comment on above: Performed By: #### L 100.0500, L500.2500 #### [facility] [address] [place], [address] Cholesterol [Mass/Vol] 98 mg/dL Normal <=200 [facility] Comment on above: Result Comment: Chol esterol level, Desirable <200 mg/dL Borderline high cholesterol 200-239 mg/dL High cholesterol >=240 mg/dL Recommendations of the NCEP Adult Treatment Panel for the following risk-cutoff thresholds for the [place] population. Performed By: #### L 100.0500, L500.2500 #### [facility] [address] [place], [address] Cholesterol in HDL [Mass/Vol] 44 mg/dL Normal [facility] Comment on above: Result Comment: Matilde onal Cholesterol Education Program (NCEP) guidelines: <40 mg/dL: Low HDL-cholesterol (major risk factor for CHD) >= 60 mg/dL: High HDL-cholesterol (negative risk factor for CHD) HDL-cholesterol is affected by a number of factors, e.g. smoking, exercise, hormones, sex and age. Performed By: #### L 100.0500, L500.2500 #### [facility] [address] [place], [address] Cholesterol in LDL [Mass/Vol] 22 mg/dL Normal [facility] Comment on above: Result Comment: Bord hgkyhr=270-178 mg/dL Higher Fmtd=227 mg/dL or greater Performed By: #### L 100.0500, L500.2500 #### [facility] [address] [place], [address] Cholesterol in VLDL [Mass/Vol] 32 mg/dL Normal 5-40 [facility] Comment on above: Performed By: #### L 100.0500, L500.2500 #### [facility] [address] [place], [address] Triglyceride [Mass/Vol] 162 mg/dL Normal [facility] Comment on above: Result Comment: The drugs N-Acetylcysteine and Metamizole may falsely depress this assay. Normal range: <150 mg/dL Borderline High: 150-199 mg/dL High: 200-499 mg/dL Very High: >500 mg/dL Performed By: #### L 100.0500, L500.2500 #### [facility] [address] [place], [address] MCV (mean corpuscular volume ) determinationOrdered By: Balwinder Alves on 12-16-2024 MCV (RBC) [Entitic vol] 92.8 fL 81-99 [facility] Mean corpuscular hemoglobin (MCH) determinationOrdered By: Balwinder Alves on 12-16-2024 MCH (RBC) [Entitic mass] 28.2 pg 27.0-32.0 [facility] Mean corpuscular hemoglobin concentration (MCHC) determinationOrdered By: Balwinder Alves on 12-16-2024 MCHC (RBC) [Mass/Vol] 30.4 g/dL Low 32-[address] [facility] Mean platelet volume determi nationOrdered By: Balwinder Alves on 12-16-2024 Platelet mean volume (Bld) [Entitic vol] 8.4 fL 6.2-12.0 [facility] Platelet countOrdered By: Jen Alves on 12-16-2024 Platelets (Bld) [#/Vol] 231 10*3/uL 150-450 [facility] Potassium (Unsp spec) [Mass/ Vol]Ordered By: Balwinder Alves on 12-16-2024 Potassium [Moles/Vol] 4.6 mmol/L 3.3-5.[address] [facility] Potassium measurement (mass/ volume)Ordered By: Balwinder Alves on 12-16-2024 Potassium (Unsp spec) [Mass/Vol] 4.6 mmol/L 3.3-5.1 [facility] RBC Auto (Bld) [#/Vol]Ordere d By: Balwinder Alves on 12-16-2024 RBC (Bld) [#/Vol] 3.90 10*6/uL Low 4.2-5.4 [facility] Screening total cholesterol/ high density lipoprotein (HDL) cholesterol ratioOrdered By: Balwinder Alves on 12-16-2024 Cholesterol.total/Jany sterol in HDL [Mass ratio] 2.22 {ratio} [facility] Serum creatinine measurement (mass/volume)Ordered By: Balwinder Alves on 12-16-2024 Creatinine [Mass/Vol] 0.67 mg/dL Low 0.70-1.[address] [facility] Serum glucose measurement (m ass/volume)Ordered By: Balwinder Alves on 12-16-2024 Glucose [Mass/Vol] 201 mg/dL High 70-99 [facility] Serum or plasma calcium jacqueline urement (mass/volume)Ordered By: Balwinder Alves on 12-16-2024 Calcium [Mass/Vol] 9.5 mg/dL 7.6-11.0 [facility] Serum or plasma cholesterol in HDL measurement (mass/volume)Ordered By: Balwinder Alves on 12-16-2024 Cholesterol in HDL [Mass/Vol] 44 mg/dL >40 [facility] Comment on above: National Cholesterol Education Program (NCEP) guidelines:<40 mg/dL: Low HDL-cholesterol (major risk factor for CHD)>= 60 mg/dL: High HDL-cholesterol (negative risk factor for CHD)HDL-cholesterol is affected by a number of factors, e.g. smoking, exercise, hormones, sex and age. Serum or plasma cholesterol measurement (mass/volume)Ordered By: Balwinder Alves on 12-16-2024 Cholesterol [Mass/Vol] 98 mg/dL <201 [facility] Comment on above: Cholesterol level, D esirable <200 mg/dLBorderline high cholesterol 200-239 mg/dLHigh cholesterol >=240 mg/dLRecommendations of the NCEP Adult Treatment Panel for the following risk-cutoff thresholds for the [place] population. Serum or plasma urea nitroge n measurement (mass/volume)Ordered By: Balwinder Alves on 12-16-2024 Urea nitrogen [Mass/Vol] 8 mg/dL 4-19 [facility] Sodium levelOrdered By: Balwinder Alves on 12-16-2024 Sodium [Moles/Vol] 137 mmol/L 133-145 [facility] Triglycerides measurementOrd ered By: Balwinder Alves on 12-16-2024 Triglyceride [Mass/Vol] 162 mg/dL <[address] [facility] Comment on above: The drugs N-Acetylcy steine and Metamizole may falsely depress this assay. Normal range: <150 mg/dLBorderline High: 150-199 mg/dLHigh: 200-499 mg/dLVery High: >500 mg/dL Vitamin D, 25-hydroxyOrdered By: Balwinder Alves on 12-16-2024 Vitamin D 25-Hydroxy 31.6 ng/mL 30-100 [facility] Comment on above: Vitamin D StatusDefi ciency: <20 ng/mL (50nmol/L)Insufficiency: 20-30 ng/mL (50-75 nmol/L)Sufficiency: 30-100 ng/mL (75-250 nmol/L)Toxicity: >100 ng/mL (>250 nmol/L) White blood cell (WBC) count Ordered By: Balwinder Alves on 12-16-2024 WBC (Bld) [#/Vol] 7.8 10*3/uL 4.4-11.0 [facility] Absolute lymphocyte countOrd ered By: Balwinder Alves on 12-14-2024 Lymphocytes Auto (Unsp spec) [#/Vol] 1.93 10*3/uL 0.83-4.51 [facility] Absolute neutrophil countOrd ered By: Balwinder Alves on 12-14-2024 Neutrophils (Bld) [#/Vol] 4.0 10*3/uL 2.0-7.7 [facility] Anion gap in Serum or Plasma Ordered By: Balwinder Alves on 12-14-2024 Anion gap [Moles/Vol] 11 mmol/L 5-[address] [facility] Automated lymphocyte count a s percentage of total leukocytesOrdered By: Balwinder Alves on 12-14-2024 Lymphocytes/100 WBC Auto (Unsp spec) 28.7 % - [facility] BUN/creatinine ratioOrdered By: Balwinder Alves on 12-14-2024 Urea nitrogen/Creatinine [Mass ratio] 10.3 mg/mg 07-24 [facility] Basic Metabolic Profile (BMP )on 12-14-2024 BUN/CRE 10.3 RATIO Normal 07-24 [facility] Comment on above: Order Comment: 102.2 Performed By: #### L 100.0500, L500.2500 #### [facility] [place], [address] Calcium [Mass/Vol] 9.2 mg/dL Normal 7.6-11.0 [facility] Comment on above: Order Comment: 102.2 Performed By: #### L 100.0500, L500.2500 #### [facility] [address] [place], [address] Chloride [Moles/Vol] 101 mmol/L Normal 98-108 [facility] Comment on above: Order Comment: 102.2 Performed By: #### L 100.0500, L500.2500 #### [facility] [address] [place], [address] CO2 [Moles/Vol] 27.6 mmol/L Normal 21.0-32.0 [facility] Comment on above: Order Comment: 102.2 Performed By: #### L 100.0500, L500.2500 #### [facility] [address] [place], [address] Creatinine [Mass/Vol] 0.68 mg/dL Low 0.70-1.[address] [facility] Comment on above: Order Comment: 102.2 Performed By: #### L 100.0500, L500.2500 #### [facility] [address] [place], [address] GAP 11 Normal 5-15 [facility] Comment on above: Order Comment: 102.2 Performed By: #### L 100.0500, L500.2500 #### [facility] [address] [place], [address] GFR/1.73 sq M.predicted among non-blacks MDRD (S/P/Bld) [Vol rate/Area] 88 mL/min/{1.73_m2} Normal >60 [facility] Comment on above: Order Comment: 102.2 Result Comment: mL/m in/1.73m2 CKD-EPI Creatinine Equation (2020) Performed By: #### L 100.0500, L500.2500 #### [facility] [address] [place], [address] Glucose [Mass/Vol] 177 mg/dL High 70-99 [facility] Comment on above: Order Comment: 102.2 Performed By: #### L 100.0500, L500.2500 #### [facility] [address] [place], [address] Potassium [Moles/Vol] 4.3 mmol/L Normal 3.3-5.[address] [facility] Comment on above: Order Comment: 102.2 Performed By: #### L 100.0500, L500.2500 #### [facility] [address] [place], [address] Sodium [Moles/Vol] 139 mmol/L Normal 133-145 [facility] Comment on above: Order Comment: 102.2 Performed By: #### L 100.0500, L500.2500 #### [facility] [address] [place], [address] Urea nitrogen [Mass/Vol] 7 mg/dL Normal 4-19 [facility] Comment on above: Order Comment: 102.2 Performed By: #### L 100.0500, L500.2500 #### [facility] [address] [place], [address] Basophil percentageOrdered B y: Balwinder Alves on 12-14-2024 Basophils/100 WBC (Bld) 0.3 % 0-[address] [facility] CBC W/Diff, Automatedon 12-03 Absolute Lymph 1.93 X10 3/uL Normal 0.83-4.51 [facility] Comment on above: Order Comment: 102.2 Performed By: #### M 100.2200, L400.2010 #### [facility] [address] [place], [address] Absolute Neut 4.0 X10 3/uL Normal 2.0-7.7 [facility] Comment on above: Order Comment: 102.2 Performed By: #### M 100.2199, .2010 #### [facility] [address] [place], [address] Basophils/100 WBC (Bld) 0.3 % Normal 0-[address] [facility] Comment on above: Order Comment: 102.2 Performed By: #### M 100.2199, .2010 #### [facility] [address] [place], [address] Eosinophils/100 WBC (Bld) 3.1 % Normal 0-5 [facility] Comment on above: Order Comment: 102.2 Performed By: #### M , #### [facility] [address] [place], [address] Erythrocyte distribution width (RBC) [Ratio] 13.6 % Normal 11.6-14.6 [facility] Comment on above: Order Comment: 102.2 Performed By: #### M , #### [facility] [address] [place], [address] Hematocrit (Bld) [Volume fraction] 35.6 % Low 37-47 [facility] Comment on above: Order Comment: 102.2 Performed By: #### M , #### [facility] [address] [place], [address] Hemoglobin (Bld) [Mass/Vol] 10.9 g/dL Low 12.0-15.0 [facility] Comment on above: Order Comment: 102.2 Performed By: #### M 100, #### [facility] [address] [place], [address] IG% 1.000 High 0.0-0.9 [facility] Comment on above: Order Comment: 102.2 Result Comment: IG% - Immature Granulocytes (promyelocytes, myelocytes and metamyelocytes) > 1% indicates that a LEFT SHIFT is Present. Performed By: #### M 100.2199, L4.2010 #### [facility] [address] [place], [address] Lymphocytes/100 WBC (Bld) 28.7 % Normal 19-41 [facility] Comment on above: Order Comment: 102.2 Performed By: #### M , .2010 #### [facility] [address] [place], [address] MCH (RBC) [Entitic mass] 28.2 pg Normal 27.0-32.0 [facility] Comment on above: Order Comment: 102.2 Performed By: #### M , .2010 #### [facility] [address] [place], [address] MCHC (RBC) [Mass/Vol] 30.6 g/dL Low 32-[address] [facility] Comment on above: Order Comment: 102.2 Performed By: #### M , L4.2010 #### [facility] [address] [place], [address] MCV (RBC) [Entitic vol] 92.0 fL Normal 81-[address] [facility] Comment on above: Order Comment: 102.2 Performed By: #### M , L4 #### [facility] [address] [place], [address] Monocytes/100 WBC (Bld) 6.8 % Normal 0-[address] [facility] Comment on above: Order Comment: 102.2 Performed By: #### M , L4 #### [facility] [address] [place], [address] Neutrophils/100 WBC (Bld) 60.1 % Normal 47-70 [facility] Comment on above: Order Comment: 102.2 Performed By: #### M 100.2200, #### [facility] [address] [place], [address] Nucleated RBC (Bld) [#/Vol] 0 10*3/uL Normal 0-5 [facility] Comment on above: Order Comment: 102.2 Performed By: #### M , .2010 #### [facility] [address] [place], [address] Platelet mean volume (Bld) [Entitic vol] 8.5 fL Normal 6.2-12.0 [facility] Comment on above: Order Comment: 102.2 Performed By: #### M , #### [facility] [address] [place], [address] Platelets (Bld) [#/Vol] 213 10*3/uL Normal 150-450 [facility] Comment on above: Order Comment: 102.2 Performed By: #### M , #### [facility] [address] [place], [address] RBC (Bld) [#/Vol] 3.87 10*6/uL Low 4.2-5.4 [facility] Comment on above: Order Comment: 102.2 Performed By: #### M , #### [facility] [address] [place], [address] RDW SD 46.1 fl High 35.1-43.9 [facility] Comment on above: Order Comment: 102.2 Performed By: #### M , #### [facility] [address] [place], [address] WBC (Bld) [#/Vol] 6.7 10*3/uL Normal 4.4-11.0 [facility] Comment on above: Order Comment: 102.2 Performed By: #### M 100.2200, L400.2010 #### [facility] [address] [place], [address] Calculated very low density lipoprotein (VLDL) cholesterol measurementOrdered By: Balwinder Alves on 12-14-2024 Calculated very low density lipoprotein (VLDL) cholesterol measurement 29 mg/dL 5-40 [facility] VLDL Cholesterol 29 mg/dL 5-40 [facility] Carbon dioxide, total [Moles /volume] in Central venous bloodOrdered By: Balwinder Alves on 12-14-2024 CO2 [Moles/Vol] 27.6 mmol/L 21.0-32.0 [facility] Chloride assayOrdered By: Jen Alves on 12-14-2024 Chloride [Moles/Vol] 101 mmol/L 98-108 [facility] Eosinophil percentageOrdered By: Balwinder Alves on 12-14-2024 Eosinophils/100 WBC (Bld) 3.1 % 0-5 [facility] Erythrocyte distribution wid th (RBC) [Ratio]Ordered By: Balwinder Alves on 12-14-2024 Erythrocyte distribution width (RBC) [Entitic vol] 46.1 fL High 35.1-43.9 [facility] Erythrocyte distribution wid th ratioOrdered By: Balwinder Alves on 12-14-2024 Erythrocyte distribution width (RBC) [Ratio] 13.6 % 11.6-14.6 [facility] Erythrocyte distribution wid th standard deviationOrdered By: Balwinder Alves on 12-14-2024 Erythrocyte distribution width (RBC) [Ratio] 46.1 fl High 35.1-43.9 [facility] GFR/1.73 sq M.predicted philipp [place] non-blacks MDRD (S/P/Bld) [Vol rate/Area]Ordered By: Balwinder Alves on 12-14-2024 Estimated GFR (MDRD) Non-Af Amer 88 >60 [facility] Comment on above: mL/min/1.73m2 CKD-EP I Creatinine Equation (2020) Glomerular filtration rate ( GFR) estimation/1.73 sq m using serum, plasma, or whole bOrdered By: Balwinder Alves on 12-14-2024 GFR/1.73 sq M.predicted among non-blacks MDRD (S/P/Bld) [Vol rate/Area] 88 mL/min/{1.73_m2} >60 [facility] Comment on above: mL/min/1.73m2 CKD-EP I Creatinine Equation (2020) Hematocrit Auto (Bld) [Volum e fraction]Ordered By: Balwinder Alves on 12-14-2024 Hematocrit (Bld) [Volume fraction] 35.6 % Low 37-47 [facility] Hemoglobin A1con 12-14-2024 HbA1c (Bld) [Mass fraction] 8.6 % Normal <=5.6 [facility] Comment on above: Order Comment: 102.2 Performed By: #### L 100.0500, L500.2500 #### [facility] [address] [place], [place], [id number] Hemoglobin A1c percentageOrd ered By: Balwinder Alves on 12-14-2024 HbA1c (Bld) [Mass fraction] 8.6 % >5.7 [facility] Hemoglobin measurementOrdere d By: Balwinder Alves on 12-14-2024 Hemoglobin (Bld) [Mass/Vol] 10.9 g/dL Low 12.0-15.0 [facility] Immature granulocytes/100 WB C Auto (Bld)Ordered By: Balwinder Alves on 12-14-2024 Immature granulocytes/100 WBC (Bld) 1.000 % High 0.0-0.9 [facility] Comment on above: IG% - Immature Granu locytes (promyelocytes, myelocytes and metamyelocytes) > 1% indicates that a LEFT SHIFT is Present. L506.1001on 12-14-2024 Vitamin D 25-OH 31.2 ng/mL Normal 30-100 [facility] Comment on above: Order Comment: 102.2 Result Comment: Feli min D Status Deficiency: <20 ng/mL (50nmol/L) Insufficiency: 20-30 ng/mL (50-75 nmol/L) Sufficiency: 30-100 ng/mL (75-250 nmol/L) Toxicity: >100 ng/mL (>250 nmol/L) Performed By: #### L 100.0500, L500.2500 #### [facility] [address] [place], [place], [id number] LDL calc ser/plasOrdered By: Balwinder Alves on 12-14-2024 Cholesterol in LDL [Mass/Vol] 22 mg/dL [facility] Comment on above: Cpxtzhycsl=028-607 m g/dL & Higher Slnu=687 mg/dL or greater LDL Cholesterol, Calculated 22 mg/dL [facility] Comment on above: Vtmigipscp=822-350 m g/dL & Higher Ccev=735 mg/dL or greater Lipid Profileon 12-14-2024 CHOL:HDL 2.29 Normal [facility] Comment on above: Order Comment: 102.2 Performed By: #### L 100.0500, L500.2500 #### [facility] [address] [place], [place], [id number] Cholesterol [Mass/Vol] 91 mg/dL Normal <=200 [facility] Comment on above: Order Comment: 102.2 Result Comment: Chol esterol level, Desirable <200 mg/dL Borderline high cholesterol 200-239 mg/dL High cholesterol >=240 mg/dL Recommendations of the NCEP Adult Treatment Panel for the following risk-cutoff thresholds for the [place] population. Performed By: #### L 100.0500, L500.2500 #### [facility] [address] [place], [place], [id number] Cholesterol in HDL [Mass/Vol] 40 mg/dL Normal [facility] Comment on above: Order Comment: 102.2 Result Comment: Matilde onal Cholesterol Education Program (NCEP) guidelines: <40 mg/dL: Low HDL-cholesterol (major risk factor for CHD) >= 60 mg/dL: High HDL-cholesterol (negative risk factor for CHD) HDL-cholesterol is affected by a number of factors, e.g. smoking, exercise, hormones, sex and age. Performed By: #### L 100.0500, L500.2500 #### [facility] [address] [place], [place], [id number] Cholesterol in LDL [Mass/Vol] 22 mg/dL Normal [facility] Comment on above: Order Comment: 102.2 Result Comment: Bord wrzyum=788-114 mg/dL Higher Jfzt=215 mg/dL or greater Performed By: #### L 100.0500, L500.2500 #### [facility] [address] [place], [address] Cholesterol in VLDL [Mass/Vol] 29 mg/dL Normal 5-40 [facility] Comment on above: Order Comment: 102.2 Performed By: #### L 100.0500, L500.2500 #### [facility] [address] [place], [address] Triglyceride [Mass/Vol] 146 mg/dL Normal [facility] Comment on above: Order Comment: 102.2 Result Comment: The drugs N-Acetylcysteine and Metamizole may falsely depress this assay. Normal range: <150 mg/dL Borderline High: 150-199 mg/dL High: 200-499 mg/dL Very High: >500 mg/dL Performed By: #### L 100.0500, L500.2500 #### [facility] [address] [place], [address] Lymphocytes Auto (Unsp spec) [#/Vol]Ordered By: Balwinder Alves on 12-14-2024 Lymphocytes (Bld) [#/Vol] 1.93 10*3/uL 0.83-4.51 [facility] Lymphocytes/100 WBC Auto (Un sp spec)Ordered By: Balwinder Alves on 12-14-2024 Lymphocytes/100 WBC (Bld) 28.7 % 19-41 [facility] MCV (mean corpuscular volume ) determinationOrdered By: Balwinder Alves on 12-14-2024 MCV (RBC) [Entitic vol] 92.0 fL 81-99 [facility] Mean corpuscular hemoglobin (MCH) determinationOrdered By: Balwinder Alves on 12-14-2024 MCH (RBC) [Entitic mass] 28.2 pg 27.0-32.0 [facility] Mean corpuscular hemoglobin concentration (MCHC) determinationOrdered By: Balwinder Alves on 12-14-2024 MCHC (RBC) [Mass/Vol] 30.6 g/dL Low 32-[address] [facility] Mean platelet volume determi nationOrdered By: Balwinder Alves on 12-14-2024 Platelet mean volume (Bld) [Entitic vol] 8.5 fL 6.2-12.0 [facility] Monocyte percentageOrdered B y: Balwinder Alves on 12-14-2024 Monocytes/100 WBC (Bld) 6.8 % 0-[address] [facility] Neutrophil percentageOrdered By: Balwinder Alves on 12-14-2024 Neutrophils/100 WBC (Bld) 60.1 % 47-70 [facility] Nucleated red blood cell per centageOrdered By: Balwinder Alves on 12-14-2024 Nucleated RBC/100 WBC (Bld) [Ratio] 0 % 0-5 [facility] Platelet countOrdered By: Jen Alves on 12-14-2024 Platelets (Bld) [#/Vol] 213 10*3/uL 150-450 [facility] Potassium (Unsp spec) [Mass/ Vol]Ordered By: Balwinder Alves on 12-14-2024 Potassium [Moles/Vol] 4.3 mmol/L 3.3-5.[address] [facility] Potassium measurement (mass/ volume)Ordered By: Balwinder Alves on 12-14-2024 Potassium (Unsp spec) [Mass/Vol] 4.3 mmol/L 3.3-5.1 [facility] RBC Auto (Bld) [#/Vol]Ordere d By: Balwinder Alves on 12-14-2024 RBC (Bld) [#/Vol] 3.87 10*6/uL Low 4.2-5.4 [facility] Screening total cholesterol/ high density lipoprotein (HDL) cholesterol ratioOrdered By: Balwinder Alves on 12-14-2024 Cholesterol.total/Jany sterol in HDL [Mass ratio] 2.29 {ratio} [facility] Serum creatinine measurement (mass/volume)Ordered By: Balwinder Alves on 12-14-2024 Creatinine [Mass/Vol] 0.68 mg/dL Low 0.70-1.[address] [facility] Serum glucose measurement (m ass/volume)Ordered By: Balwinder Alves on 12-14-2024 Glucose [Mass/Vol] 177 mg/dL High 70-99 [facility] Serum or plasma calcium jacqueline urement (mass/volume)Ordered By: Balwinder Alves on 2025 Calcium [Mass/Vol] 9.2 mg/dL 7.6-11.0 [facility] Serum or plasma cholesterol in HDL measurement (mass/volume)Ordered By: Balwinder Alves on 12-14-2024 Cholesterol in HDL [Mass/Vol] 40 mg/dL >40 [facility] Comment on above: National Cholesterol Education Program (NCEP) guidelines:<40 mg/dL: Low HDL-cholesterol (major risk factor for CHD)>= 60 mg/dL: High HDL-cholesterol (negative risk factor for CHD)HDL-cholesterol is affected by a number of factors, e.g. smoking, exercise, hormones, sex and age. Serum or plasma cholesterol measurement (mass/volume)Ordered By: Balwinder Alves on 12-14-2024 Cholesterol [Mass/Vol] 91 mg/dL <201 [facility] Comment on above: Cholesterol level, D esirable <200 mg/dLBorderline high cholesterol 200-239 mg/dLHigh cholesterol >=240 mg/dLRecommendations of the NCEP Adult Treatment Panel for the following risk-cutoff thresholds for the [place] population. Serum or plasma urea nitroge n measurement (mass/volume)Ordered By: Balwinder Alves on 12-14-2024 Urea nitrogen [Mass/Vol] 7 mg/dL 4-19 [facility] Sodium levelOrdered By: Balwinder Alves on 12-14-2024 Sodium [Moles/Vol] 139 mmol/L 133-145 [facility] Triglycerides measurementOrd ered By: Balwinder Alves on 12-14-2024 Triglyceride [Mass/Vol] 146 mg/dL <[address] [facility] Comment on above: The drugs N-Acetylcy steine and Metamizole may falsely depress this assay. Normal range: <150 mg/dLBorderline High: 150-199 mg/dLHigh: 200-499 mg/dLVery High: >500 mg/dL Vitamin D, 25-hydroxyOrdered By: Balwinder Alves on 12-14-2024 Vitamin D 25-Hydroxy 31.2 ng/mL 30-100 [facility] Comment on above: Vitamin D StatusDefi ciency: <20 ng/mL (50nmol/L)Insufficiency: 20-30 ng/mL (50-75 nmol/L)Sufficiency: 30-100 ng/mL (75-250 nmol/L)Toxicity: >100 ng/mL (>250 nmol/L) White blood cell (WBC) count Ordered By: Balwinder Alves on 12-14-2024 WBC (Bld) [#/Vol] 6.7 10*3/uL 4.4-11.0 [facility] Urine Cultureon 10-17-2024 [facility] Copy of report sent to Infection Control Printer [id number] 10/17/24 1000 VSICK. Urine Culture Urine Culture Urine Culture ESBL Escherichia coli [place] Count 80,000-100,000 MARKER ESBL producing OrganismA MARKER ESBL producing OrganismA [place] Count 80,000-100,000 Proteus mirabilis Ampicillin Islt PREM [...] Ampicillin+Sulbac Islt PREM <=2 S Cefepime Islt RPEM 0.5 cefTRIAXone Islt PREM <=0.25 S Ciprofloxacin Islt PREM <=0.06 S Gentamicin Islt PREM <=1 S levoFLOXacin Islt PREM <=0.12 S Meropenem Islt PREM 1 S Nitrofurantoin Islt PREM R Pip+Tazo Islt PREM <=4 S TMP SMX Islt PREM <=20 S Normal [facility] Comment on above: Performed By: #### M 100.2200, L400.2010 #### [facility] [address] [place], [place], [id number] Urinalysis, Routine (Dipstic k)on 10-11-2024 BILIRUBIN URINE Negative Normal Negative [facility] Comment on above: Order Comment: CLEAN CATCH Performed By: #### M , #### [facility] [address] [place], [address] Clarity (U) Sl. Cloudy Normal Clear [facility] Comment on above: Order Comment: CLEAN CATCH Performed By: #### M #### [facility] [address] [place], [address] Color (U) Yellow Normal Yellow [facility] Comment on above: Order Comment: CLEAN CATCH Performed By: #### M #### [facility] [address] [place], [address] GLUCOSE, UR Normal Normal Normal [facility] Comment on above: Order Comment: CLEAN CATCH Performed By: #### M #### [facility] [address] [place], [address] KETONE UR Negative Normal Negative [facility] Comment on above: Order Comment: CLEAN CATCH Performed By: #### M #### [facility] [address] [place], [address] LEUK ESTERASE 500 /ul Abnormal Negative [facility] Comment on above: Order Comment: CLEAN CATCH Performed By: #### M #### [facility] [address] [place], [address] Nitrite Ql (U) Positive Abnormal Negative [facility] Comment on above: Order Comment: CLEAN CATCH Performed By: #### M #### [facility] [address] [place], [address] OCCULT BLOOD-UR 50 /ul Abnormal Negative [facility] Comment on above: Order Comment: CLEAN CATCH Performed By: #### M #### [facility] [address] [place], [address] pH UR 6.5 Normal 5.0 - 8.0 [facility] Comment on above: Order Comment: CLEAN CATCH Performed By: #### M 100.2200, L4.2010 #### [facility] [address] [place], [address] PROT DIPSTX 15 mg/dl Abnormal Negative [facility] Comment on above: Order Comment: CLEAN CATCH Performed By: #### M 100.2200, L400.2010 #### [facility] [address] [place], [address] SP.GR. DIPSTX 1.010 Normal 1.002-1.030 [facility] Comment on above: Order Comment: CLEAN CATCH Performed By: #### M 100.0, L4 #### [facility] [address] [place], [address] UROBILI Normal Normal Normal [facility] Comment on above: Order Comment: CLEAN CATCH Performed By: #### M 100.2199, L4.2010 #### [facility] [address] [place], [address] Bilirubin Test strip Ql (U)O rdered By: Balwinder Alves on 10-10-2024 Bilirubin Ql (U) Negative Negative [facility] Glucose Ql (U)Ordered By: Jen Alves on 10-10-2024 Urine Glucose (UA) Normal mg/dl Normal [facility] Ketones Test strip Ql (U)Ord ered By: Balwinder Alves on 10-10-2024 Ketones Ql (U) Negative Negative [facility] Nitrite Test strip Ql (U)Ord ered By: Balwinder Alves on 10-10-2024 Nitrite Ql (U) Positive High Negative [facility] Protein Test strip Ql (U)Ord ered By: Balwinder Alves on 10-10-2024 Protein Ql (U) 15 mg/dl High Negative [facility] Urine blood detectionOrdered By: Balwinder Alves on 10-10-2024 Urine Occult Blood 50 /ul High Negative [facility] Urine clarityOrdered By: Javed Alves on 10-10-2024 Clarity (U) Sl. Cloudy Clear [facility] Urine color determinationOrd ered By: Balwinder Alves on 10-10-2024 Color (U) Yellow Yellow [facility] Urine cultureOrdered By: Javed Alves on 10-10-2024 Bacteria identified Cx Nom (U) ESBL Escherichia coli Abnormal [facility] Bacteria identified Cx Nom (U) Proteus mirabilis Abnormal [facility] Urine leukocyte esterase det ection by dipstickOrdered By: Balwinder Alves on 10-10-2024 Leukocyte esterase Test strip Ql (U) 500 /ul High Negative [facility] Urine pHOrdered By: Balwinder blackman on 10-10-2024 pH (U) 6.5 [pH] 5.0 - 8.0 [facility] Urine specific gravity measu rementOrdered By: Balwinder Alves on 10-10-2024 Specific gravity (U) [Rel density] 1.010 1.002-1.030 [facility] Urobilinogen Ql (U)Ordered B y: Balwinder Alves on 10-10-2024 Urine Urobilinogen Normal mg/dl Normal [facility] Automated blood erythrocyte countOrdered By: Balwinder Alves on 09-14-2024 RBC (Bld) [#/Vol] 3.90 10*6/uL Low 4.2-5.4 [facility] Comment on above: Order Comment: 102.2 Performed By: #### L 100.0500, L500.2500 #### [facility] [address] [place], [place], [id number] Automated blood hematocrit ( percentage)Ordered By: Balwinder Alves on 09-14-2024 Hematocrit (Bld) [Volume fraction] 37.7 % Normal 37-47 [facility] Comment on above: Order Comment: 102.2 Performed By: #### L 100.0500, L500.2500 #### [facility] [address] [place], [address] Basic Metabolic Profile (BMP )on 12-11-2024 BUN/CRE 15.5 RATIO Normal 10- [facility] Comment on above: Order Comment: 102.2 Performed By: #### L 100.0500, L500.2500 #### [facility] [address] [place], [address] CA,Total 9.4 mg/dL Normal 8.5-10.1 [facility] Comment on above: Order Comment: 102.2 Performed By: #### L 100.0500, L500.2500 #### [facility] [address] [place], [address] EST GFR - AA 102 mL/min Normal >60 [facility] Comment on above: Order Comment: 102.2 Result Comment: Afri can [place] GFR Calc Performed By: #### L 100.0500, L500.2500 #### [facility] [address] [place], [address] GAP 3 Low 5-15 [facility] Comment on above: Order Comment: 102.2 Performed By: #### L 100.0500, L500.2500 #### [facility] [address] [place], [address] GFR/1.73 sq M.predicted among non-blacks MDRD (S/P/Bld) [Vol rate/Area] 84 mL/min/{1.73_m2} Normal >60 [facility] Comment on above: Order Comment: 102.2 Result Comment: Non- GFR Calc Performed By: #### L 100.0500, L500.2500 #### [facility] [address] [place], [address] Blood urea nitrogen (BUN)/cr eatinine ratioOrdered By: Balwinder Alves on 09-14-2024 Urea nitrogen/Creatinine [Mass ratio] 15.5 mg/mg 07-24 [facility] CBC-Complete Blood Cnt No Di ffon 09-14-2024 RDW SD 48.3 fl High 35.1-43.9 [facility] Comment on above: Order Comment: 102.2 Performed By: #### L 100.0500, L500.2500 #### [facility] [address] [place], [address] Carbon dioxide measurementOr dered By: Balwinder Alves on 09-14-2024 CO2 [Moles/Vol] 34.0 mmol/L High 21.0-32.0 [facility] Comment on above: Order Comment: 102.2 Performed By: #### L 100.0500, L500.2500 #### [facility] [address] [place], [address] Chloride measurementOrdered By: Balwinder Alves on 09-14-2024 Chloride [Moles/Vol] 103 mmol/L Normal 98-107 [facility] Comment on above: Order Comment: 102.2 Performed By: #### L 100.0500, L500.2500 #### [facility] [address] [place], [address] Erythrocyte distribution wid th (RBC) [Ratio]Ordered By: Balwinder Alves on 09-14-2024 Erythrocyte distribution width (RBC) [Entitic vol] 48.3 fL High 35.1-43.9 [facility] Erythrocyte distribution wid th ratioOrdered By: Balwinder Alves on 09-14-2024 Erythrocyte distribution width (RBC) [Ratio] 14.0 % Normal 11.6-14.6 [facility] Comment on above: Order Comment: 102.2 Performed By: #### L 100.0500, L500.2500 #### [facility] [address] [place], [address] Estimated glomerular filtrat ion rate (GFR) AmericanOrdered By: Balwinder Alves on 09-14-2024 Estimated GFR (MDRD) Amer 102 mL/min >60 [facility] Comment on above: GFR Calc Glomerular filtration rate ( GFR) estimationOrdered By: Balwinder Alves on 09-14-2024 Estimated GFR (MDRD) Non-Af Amer 84 mL/min >60 [facility] Comment on above: Non- GFR Calc Glucose measurementOrdered B y: Balwinder Alves on 09-14-2024 Glucose [Mass/Vol] 168 mg/dL High 74-106 [facility] Comment on above: Fasting Glucose resu lt greater than or equal to 126 mg/dL suggests DIABETES MELLITUS per A.D.A. criteria. Order Comment: 102.2 Result Comment: Fast ing Glucose result greater than or equal to 126 mg/dL suggests DIABETES MELLITUS per A.D.A. criteria. Performed By: #### L 100.0500, L500.2500 #### [facility] [address] [place], [address] Hemoglobin measurementOrdere d By: Balwinder Alves on 09-14-2024 Hemoglobin (Bld) [Mass/Vol] 11.1 g/dL Low 12.0-15.0 [facility] Comment on above: Order Comment: 102.2 Performed By: #### L 100.0500, L500.2500 #### [facility] [address] [place], [address] MCV (mean corpuscular volume ) determinationOrdered By: Balwinder Alves on 09-14-2024 MCV (RBC) [Entitic vol] 96.7 fL Normal 81-99 [facility] Comment on above: Order Comment: 102.2 Performed By: #### L 100.0500, L500.2500 #### [facility] [address] [place], [address] Mean corpuscular hemoglobin (MCH) determinationOrdered By: Balwinder Alves on 09-14-2024 MCH (RBC) [Entitic mass] 28.5 pg Normal 27.0-32.0 [facility] Comment on above: Order Comment: 102.2 Performed By: #### L 100.0500, L500.2500 #### [facility] [address] [place], [address] Mean corpuscular hemoglobin concentration (MCHC) determinationOrdered By: Balwinder Alves on 09-14-2024 MCHC (RBC) [Mass/Vol] 29.4 g/dL Low 32-[address] [facility] Comment on above: Order Comment: 102.2 Performed By: #### L 100.0500, L500.2500 #### [facility] [address] [place], [address] Mean platelet volume determi nationOrdered By: Balwinder Alves on 09-14-2024 Platelet mean volume (Bld) [Entitic vol] 8.2 fL Normal 6.2-12.0 [facility] Comment on above: Order Comment: 102.2 Performed By: #### L 100.0500, L500.2500 #### [facility] [address] [place], [address] Platelet countOrdered By: Jen Alves on 09-14-2024 Platelets (Bld) [#/Vol] 178 10*3/uL Normal 150-450 [facility] Comment on above: Order Comment: 102.2 Performed By: #### L 100.0500, L500.2500 #### [facility] [address] [place], [address] Potassium measurementOrdered By: Balwinder Alves on 09-14-2024 Potassium [Moles/Vol] 4.6 mmol/L Normal 3.5-5.[address] [facility] [facility] Comment on above: Order Comment: 102.2 Performed By: #### L 100.0500, L500.2500 #### [facility] [address] [place], [address] Serum anion gap measurementO rdered By: Balwinder Alves on 09-14-2024 Anion gap [Moles/Vol] 3 mmol/L Low 5-[address] [facility] Serum or plasma calcium jacqueline urement (mass/volume)Ordered By: Balwinder Alves on 09-14-2024 Calcium [Mass/Vol] 9.4 mg/dL 8.5-10.1 [facility] Serum or plasma creatinine m easurement (mass/volume)Ordered By: Balwinder Alves on 09-14-2024 Creatinine [Mass/Vol] 0.71 mg/dL Normal 0.55-1.[address] [facility] Comment on above: The validity of the calculated GFR & GFRAA in patients over 70 years has not been determined. Clinical correlation is essential. Order Comment: 102.2 Result Comment: The validity of the calculated GFR GFRAA in patients over 70 years has not been determined. Clinical correlation is essential. Performed By: #### L 100.0500, L500.2500 #### [facility] [address], [address] Serum or plasma urea nitroge n measurement (mass/volume)Ordered By: Balwinder Alves on 09-14-2024 Urea nitrogen [Mass/Vol] 11 mg/dL Normal 7-18 [facility] Comment on above: Order Comment: 102.2 Performed By: #### L 100.0500, L500.2500 #### [facility] [address] [place], [address] Sodium levelOrdered By: Balwinder Alves on 09-14-2024 Sodium [Moles/Vol] 139 mmol/L Normal 136-145 [facility] Comment on above: Order Comment: 102.2 Performed By: #### L 100.0500, L500.2500 #### [facility] [address] [place], [address] White blood cell (WBC) count Ordered By: Balwinder Alves on 09-14-2024 WBC (Bld) [#/Vol] 5.6 10*3/uL Normal 4.4-11.0 [facility] Comment on above: Order Comment: 102.2 Performed By: #### L 100.0500, L500.2500 #### [facility] [address] [place], [address] Basic Metabolic Profile (BMP )on 06-14-2024 BUN/CRE 13.6 RATIO Normal 10-20 [facility] Comment on above: Order Comment: 102.2 Performed By: #### M 100.2200, L400.2010 #### [facility] [address] [place], [address] CA,Total 9.5 mg/dL Normal 8.5-10.1 [facility] Comment on above: Order Comment: 102.2 Performed By: #### M 100.2199, .2010 #### [facility] [address] [place], [address] Chloride [Moles/Vol] 101 mmol/L Normal 98-107 [facility] Comment on above: Order Comment: 102.2 Performed By: #### M .2199, .2010 #### [facility] [address] [place], [address] CO2 [Moles/Vol] 30.0 mmol/L Normal 21.0-32.0 [facility] Comment on above: Order Comment: 102.2 Performed By: #### M , #### [facility] [address] [place], [address] Creatinine [Mass/Vol] 0.74 mg/dL Normal 0.55-1.[address] [facility] Comment on above: Order Comment: 102.2 Result Comment: The validity of the calculated GFR GFRAA in patients over 70 years has not been determined. Clinical correlation is essential. Performed By: #### M .2199, #### [facility] [address] [place], [address] EST GFR - AA 98 mL/min Normal >60 [facility] Comment on above: Order Comment: 102.2 Result Comment: Afri can [place] GFR Calc Performed By: #### M 100.2199, #### [facility] [address] [place], [address] GAP 6 Normal 5-15 [facility] Comment on above: Order Comment: 102.2 Performed By: #### M 100.2200, #### [facility] [address] [place], [address] GFR/1.73 sq M.predicted among non-blacks MDRD (S/P/Bld) [Vol rate/Area] 81 mL/min/{1.73_m2} Normal >60 [facility] Comment on above: Order Comment: 102.2 Result Comment: Non- GFR Calc Performed By: #### M .2199, #### [facility] [address] [place], [address] Glucose [Mass/Vol] 157 mg/dL High 74-106 [facility] Comment on above: Order Comment: 102.2 Result Comment: Fast ing Glucose result greater than or equal to 126 mg/dL suggests DIABETES MELLITUS per A.D.A. criteria. Performed By: #### M , #### [facility] [address] [place], [address] Potassium [Moles/Vol] 4.1 mmol/L Normal 3.5-5.[address] [facility] Comment on above: Order Comment: 102.2 Performed By: #### M , #### [facility] [address] [place], [address] Sodium [Moles/Vol] 137 mmol/L Normal 136-145 [facility] Comment on above: Order Comment: 102.2 Performed By: #### M , #### [facility] [address] [place], [address] Urea nitrogen [Mass/Vol] 10 mg/dL Normal 7-18 [facility] Comment on above: Order Comment: 102.2 Performed By: #### M , #### [facility] [address] [place], [address] CBC-Complete Blood Cnt No Di ffon 06-14-2024 Erythrocyte distribution width (RBC) [Ratio] 14.5 % Normal 11.6-14.6 [facility] Comment on above: Order Comment: 102.2 Performed By: #### M , .2010 #### [facility] [address] [place], [address] Hematocrit (Bld) [Volume fraction] 36.9 % Low 37-47 [facility] Comment on above: Order Comment: 102.2 Performed By: #### M , .2010 #### [facility] [address] [place], [address] Hemoglobin (Bld) [Mass/Vol] 11.1 g/dL Low 12.0-15.0 [facility] Comment on above: Order Comment: 102.2 Performed By: #### M , #### [facility] [address] [place], [address] MCH (RBC) [Entitic mass] 28.6 pg Normal 27.0-32.0 [facility] Comment on above: Order Comment: 102.2 Performed By: #### M , #### [facility] [address] [place], [address] MCHC (RBC) [Mass/Vol] 30.1 g/dL Low 32-[address] [facility] Comment on above: Order Comment: 102.2 Performed By: #### M , #### [facility] [address] [place], [address] MCV (RBC) [Entitic vol] 95.1 fL Normal 81-[address] [facility] Comment on above: Order Comment: 102.2 Performed By: #### M , #### [facility] [address] [place], [address] Platelet mean volume (Bld) [Entitic vol] 8.7 fL Normal 6.2-12.0 [facility] Comment on above: Order Comment: 102.2 Performed By: #### M , #### [facility] [address] [place], [address] Platelets (Bld) [#/Vol] 165 10*3/uL Normal 150-450 [facility] Comment on above: Order Comment: 102.2 Performed By: #### M , #### [facility] [address] [place], [address] RBC (Bld) [#/Vol] 3.88 10*6/uL Low 4.2-5.4 [facility] Comment on above: Order Comment: 102.2 Performed By: #### M , #### [facility] [address] [place], [address] RDW SD 50.7 fl High 35.1-43.9 [facility] Comment on above: Order Comment: 102.2 Performed By: #### M , #### [facility] [address] [place], [address] WBC (Bld) [#/Vol] 5.4 10*3/uL Normal 4.4-11.0 [facility] Comment on above: Order Comment: 102.2 Performed By: #### M , #### [facility] [address] [place], [address] Hemoglobin A1con 06-14-2024 HbA1c (Bld) [Mass fraction] 6.7 % High 3.8-5.6 [facility] Comment on above: Order Comment: 102.2 Result Comment: Norm al < 5.7 % Prediabetic 5.7 - 6.4 % Diabetic >or= 6.5 % Please note range changes. Performed By: #### M , L4 #### [facility] [address] [place], [address] Lipid Profileon 06-14-2024 Cholesterol [Mass/Vol] 134 mg/dL Normal 200 [facility] Comment on above: Order Comment: 102.2 Result Comment: <200 mg/dL Desirable 200-240 mg/dL Borderline >240 mg/dL High Risk Performed By: #### M 100.2199, #### [facility] [address] [place], [address] Cholesterol in HDL [Mass/Vol] 66 mg/dL Normal [facility] Comment on above: Order Comment: 102.2 Result Comment: The drugs N-Acetylcysteine and Metamizole may falsely depress this assay. Reference Range HDL <40 mg/dL Low HDL Cholesterol HDL >or= 60 mg/dL High HDL Cholesterol Performed By: #### M , #### [facility] [address] [place], [address] Cholesterol in LDL [Mass/Vol] 43 mg/dL Normal 0-130 [facility] Comment on above: Order Comment: 102.2 Performed By: #### M , #### [facility] [address] [place], [address] Cholesterol in VLDL [Mass/Vol] 25 mg/dL Normal 5-40 [facility] Comment on above: Order Comment: 102.2 Performed By: #### M , #### [facility] [address] [place], [address] Triglyceride [Mass/Vol] 125 mg/dL Normal [facility] Comment on above: Order Comment: 102.2 Result Comment: The drugs N-Acetylcysteine and Metamizole may falsely depress this assay. Serum Triglycerides Reference Interval Normal <150 mg/dL Borderline high 150 - 199 mg/dL High 200 - 499 mg/dL Very High > or = 500 mg/dL Performed By: #### M , #### [facility] [address] [place], [place], [address] Vitamin D,25 Hydroxyon 06-14 Vitamin D 25-OH 38.8 ng/mL Normal [facility] Comment on above: Order Comment: 102.2 Result Comment: Feli min D 25(OH) Status Range Deficiency <20 ng/mL (50nmol/L) Insufficiency 20 - 30 ng/mL (50 - 75 nmol/L) Sufficiency 30 - 100 ng/mL (75 - 250 nmol/L) Toxicity >100 ng/mL (>250 nmol/L) Performed By: #### M 100.2200, L400.2010 #### [facility] [address] [place], [place], [address] Urine Cultureon 06-01-2024 [facility] RESULTS CALLED TO Castro GARCIA 05/31/24 Jolynn Patterson. REPORT READ BACK BY . ESBL Escherichia coli [place] Count >100,000 MARKER A ESBL producing Organism [...] B-Lactamase Extended Susc Islt POS Gentamicin Islt RPEM <=1 S Imipenem Islt PREM <=0.25 S levoFLOXacin Islt PREM >=8 R Meropenem Islt PREM <=0.25 S Nitrofurantoin Islt PREM <=16 S Pip+Tazo Islt PREM <=4 S Tetracycline Islt PREM <=1 S Tobramycin Islt PREM <=1 S TMP SMX Islt PREM >=320 R Cefuroxime Islt PREM >=64 R Normal [facility] Comment on above: Performed By: #### L 100.0500, L500.2499 #### [facility] [address] [place], [place], [id number] Urine Cultureon 05-09-2024 [facility] RESULTS CALLED TO Lesli WALLACE 05/09/24 1156 Lorrie Patterson. REPORT READ BACK BY . Bacteria Ur Cult Copy of report sent to Infection Control Printer [id number] 05/09/24 8007 ESSENCE. ESBL Escherichia coli [place] Count >100,000 MARKER A ESBL producing Organism [...] TMP SMX Islt PREM >=320 R Normal [facility] Comment on above: Performed By: #### M 100.2199, L4 #### [facility] [address] [place], [place], [id number] Urinalysis, Routine (Dipstic k)on 05-06-2024 BILIRUBIN URINE Negative Normal Negative [facility] Comment on above: Order Comment: Urine , Random Performed By: #### M 100.0, L400 #### [facility] [address] [place], [place], [address] Clarity (U) Cloudy Normal Clear [facility] Comment on above: Order Comment: Urine , Random Performed By: #### M 100.2200, L400 #### [facility] [address] [place], [place], [address] Color (U) Yellow Normal Yellow [facility] Comment on above: Order Comment: Urine , Random Performed By: #### M .2199, L4.2010 #### [facility] [address] [place], [address] GLUCOSE, UR Normal Normal Normal [facility] Comment on above: Order Comment: Urine , Random Performed By: #### M , L4 #### [facility] [address] [place], [address] KETONE UR 5 mg/dl Abnormal Negative [facility] Comment on above: Order Comment: Urine , Random Performed By: #### M , L4 #### [facility] [address] [place], [address] LEUK ESTERASE 500 /ul Abnormal Negative [facility] Comment on above: Order Comment: Urine , Random Performed By: #### M , L4 #### [facility] [address] [place], [address] Nitrite Ql (U) Positive Abnormal Negative [facility] Comment on above: Order Comment: Urine , Random Performed By: #### M , L4 #### [facility] [address] [place], [address] OCCULT BLOOD-UR 250 /ul Abnormal Negative [facility] Comment on above: Order Comment: Urine , Random Performed By: #### M , L4 #### [facility] [address] [place], [address] pH UR 6.0 Normal 5.0 - 8.0 [facility] Comment on above: Order Comment: Urine , Random Performed By: #### M , L4 #### [facility] [address] [place], [address] PROT DIPSTX 30 mg/dl Abnormal Negative [facility] Comment on above: Order Comment: Urine , Random Performed By: #### M 100.2200, L4.2010 #### [facility] [address] [place], [address] SP.GR. DIPSTX 1.015 Normal 1.002-1.030 [facility] Comment on above: Order Comment: Urine , Random Performed By: #### M 100.2200, L4.2010 #### [facility] [address] [place], [address] UROBILI Normal Normal Normal [facility] Comment on above: Order Comment: Urine , Random Performed By: #### M 100.0, L4 #### [facility] [address] [place], [address] Urine Cultureon 03-28-2024 [facility] ESBL Escherichia col i [place] Count >100,000 MARKER A ESBL producing Organism [...] R Cefuroxime Islt PREM >=64 R Normal [facility] Comment on above: Performed By: #### M 100.2200, L4 #### [facility] [address] [place], [address] Urinalysis, Routine (Dipstic k)on 03-25-2024 BILIRUBIN URINE Negative Normal Negative [facility] Comment on above: Order Comment: CLEAN CATCH Performed By: #### M , #### [facility] [address] [place], [address] Clarity (U) Sl. Cloudy Normal Clear [facility] Comment on above: Order Comment: CLEAN CATCH Performed By: #### M , #### [facility] [address] [place], [address] Color (U) Yellow Normal Yellow [facility] Comment on above: Order Comment: CLEAN CATCH Performed By: #### M , #### [facility] [address] [place], [address] GLUCOSE, UR Normal Normal Normal [facility] Comment on above: Order Comment: CLEAN CATCH Performed By: #### M #### [facility] [address] [place], [address] KETONE UR Negative Normal Negative [facility] Comment on above: Order Comment: CLEAN CATCH Performed By: #### M #### [facility] [address] [place], [address] LEUK ESTERASE 500 /ul Abnormal Negative [facility] Comment on above: Order Comment: CLEAN CATCH Performed By: #### M , L4 #### [facility] [address] [place], [address] Nitrite Ql (U) Positive Abnormal Negative [facility] Comment on above: Order Comment: CLEAN CATCH Performed By: #### M , L4 #### [facility] [address] [place], [address] OCCULT BLOOD-UR 250 /ul Abnormal Negative [facility] Comment on above: Order Comment: CLEAN CATCH Performed By: #### M 100.0, L4.2010 #### [facility] [address] [place], [address] pH UR 6.0 Normal 5.0 - 8.0 [facility] Comment on above: Order Comment: CLEAN CATCH Performed By: #### M 100.2199, L4.2010 #### [facility] [address] [place], [address] PROT DIPSTX 15 mg/dl Abnormal Negative [facility] Comment on above: Order Comment: CLEAN CATCH Performed By: #### M 100.2199, L4.2010 #### [facility] [address] [place], [address] SP.GR. DIPSTX 1.010 Normal 1.002-1.030 [facility] Comment on above: Order Comment: CLEAN CATCH Performed By: #### M , L4 #### [facility] [address] [place], [address] UROBILI Normal Normal Normal [facility] Comment on above: Order Comment: CLEAN CATCH Performed By: #### M , L4 #### [facility] [address] [place], [address] Basic Metabolic Profile (BMP )on 03-14-2024 BUN/CRE 18.1 RATIO Normal 10-20 [facility] Comment on above: Order Comment: 102.2 Performed By: #### L 100.0500, L500.2500 #### [facility] [address] [place], [address] CA,Total 9.1 mg/dL Normal 8.5-10.1 [facility] Comment on above: Order Comment: 102.2 Performed By: #### L 100.0500, L500.2500 #### [facility] [address] [place], [address] Chloride [Moles/Vol] 102 mmol/L Normal 98-107 [facility] Comment on above: Order Comment: 102.2 Performed By: #### L 100.0500, L500.2500 #### [facility] [address] [place], [address] CO2 [Moles/Vol] 31.0 mmol/L Normal 21.0-32.0 [facility] Comment on above: Order Comment: 102.2 Performed By: #### L 100.0500, L500.2500 #### [facility] [address] [place], [address] Creatinine [Mass/Vol] 0.50 mg/dL Low 0.55-1.[address] [facility] Comment on above: Order Comment: 102.2 Result Comment: The validity of the calculated GFR GFRAA in patients over 70 years has not been determined. Clinical correlation is essential. Performed By: #### L 100.0500, L500.2500 #### [facility] [address] [place], [address] EST GFR - AA 154 mL/min Normal >60 [facility] Comment on above: Order Comment: 102.2 Result Comment: Afri can [place] GFR Calc Performed By: #### L 100.0500, L500.2500 #### [facility] [address] [place], [address] GAP 3 Low 5-15 [facility] Comment on above: Order Comment: 102.2 Performed By: #### L 100.0500, L500.2500 #### [facility] [address] [place], [address] GFR/1.73 sq M.predicted among non-blacks MDRD (S/P/Bld) [Vol rate/Area] 127 mL/min/{1.73_m2} Normal >60 [facility] Comment on above: Order Comment: 102.2 Result Comment: Non- GFR Calc Performed By: #### L 100.0500, L500.2500 #### [facility] [address] [place], [address] Glucose [Mass/Vol] 151 mg/dL High 74-106 [facility] Comment on above: Order Comment: 102.2 Result Comment: Fast ing Glucose result greater than or equal to 126 mg/dL suggests DIABETES MELLITUS per A.D.A. criteria. Performed By: #### L 100.0500, L500.2500 #### [facility] [address] [place], [address] Potassium [Moles/Vol] 4.5 mmol/L Normal 3.5-5.[address] [facility] Comment on above: Order Comment: 102.2 Performed By: #### L 100.0500, L500.2500 #### [facility] [address] [place], [address] Sodium [Moles/Vol] 136 mmol/L Normal 136-145 [facility] Comment on above: Order Comment: 102.2 Performed By: #### L 100.0500, L500.2500 #### [facility] [address] [place], [address] Urea nitrogen [Mass/Vol] 9 mg/dL Normal 7-18 [facility] Comment on above: Order Comment: 102.2 Performed By: #### L 100.0500, L500.2500 #### [facility] [address] [place], [address] CBC-Complete Blood Cnt No Di ffon 03-14-2024 Erythrocyte distribution width (RBC) [Ratio] 14.0 % Normal 11.6-14.6 [facility] Comment on above: Performed By: #### L 100.0500, L500.2500 #### [facility] [address] [place], [address] Hematocrit (Bld) [Volume fraction] 40.3 % Normal 37-47 [facility] Comment on above: Performed By: #### L 100.0500, L500.2500 #### [facility] [address] [place], [address] Hemoglobin (Bld) [Mass/Vol] 12.1 g/dL Normal 12.0-15.0 [facility] Comment on above: Performed By: #### L 100.0500, L500.2500 #### [facility] [address] [place], [address] MCH (RBC) [Entitic mass] 28.7 pg Normal 27.0-32.0 [facility] Comment on above: Performed By: #### L 100.0500, L500.2500 #### [facility] [address] [place], [address] MCHC (RBC) [Mass/Vol] 30.0 g/dL Low 32-[address] [facility] Comment on above: Performed By: #### L 100.0500, L500.2500 #### [facility] [address] [place], [address] MCV (RBC) [Entitic vol] 95.5 fL Normal 81-[address] [facility] Comment on above: Performed By: #### L 100.0500, L500.2500 #### [facility] [address] [place], [address] Platelet mean volume (Bld) [Entitic vol] 8.5 fL Normal 6.2-12.0 [facility] Comment on above: Performed By: #### L 100.0500, L500.2500 #### [facility] [address] [place], [address] Platelets (Bld) [#/Vol] 158 10*3/uL Normal 150-450 [facility] Comment on above: Performed By: #### L 100.0500, L500.2500 #### [facility] [address] [place], [address] RBC (Bld) [#/Vol] 4.22 10*6/uL Normal 4.2-5.4 [facility] Comment on above: Performed By: #### L 100.0500, L500.2500 #### [facility] [address] [place], [address] RDW SD 48.5 fl High 35.1-43.9 [facility] Comment on above: Performed By: #### L 100.0500, L500.2500 #### [facility] [address] [place], [address] WBC (Bld) [#/Vol] 7.1 10*3/uL Normal 4.4-11.0 [facility] Comment on above: Performed By: #### L 100.0500, L500.2500 #### [facility] [address] [place], [address] Basophil percentageOrdered B y: Balwinder Alves on 12-14-2023 Chloride [Moles/Vol] 105 mmol/L 98-107 [facility] Cholesterol [Mass/Vol] 128 mg/dL <200 [facility] Comment on above: <200 mg/dL Desirable 200-240 mg/dL Borderline >240 mg/dL High Risk Glucose [Mass/Vol] 132 mg/dL 74-106 [facility] Comment on above: Fasting Glucose resu lt greater than or equal to 126 mg/dL suggests DIABETES MELLITUS per A.D.A. criteria. Hemoglobin (Bld) [Mass/Vol] 12.5 g/dL 12.0-15.0 [facility] Potassium [Moles/Vol] 4.4 mmol/L 3.5-5.[address] [facility] Sodium [Moles/Vol] 142 mmol/L 136-145 [facility] Triglyceride [Mass/Vol] 178 mg/dL <[address] [facility] Comment on above: The drugs N-Acetylcy steine and Metamizole may falsely depress this assay.Serum Triglycerides Reference Interval Normal <150 mg/dL Borderline high 150 - 199 mg/dL High 200 - 499 mg/dL Very High > or = 500 mg/dL WBC (Bld) [#/Vol] 4.9 10*3/uL 4.4-11.0 [facility] Determination of erythrocyte mean corpuscular volume (MCV)Ordered By: Balwinder Alves on 12-14-2023 MCV (RBC) [Entitic vol] 92.6 fL 81-[address] [facility] Erythrocyte distribution wid th ratioOrdered By: Balwinder Alves on 12-14-2023 Erythrocyte distribution width (RBC) [Ratio] 15.4 % 11.6-14.6 [facility] Erythrocyte distribution wid th standard deviationOrdered By: Balwinder Alves on 12-14-2023 Erythrocyte distribution width (RBC) [Entitic vol] 52.9 fL 35.1-43.9 [facility] Hematocrit Auto (Bld) [Volum e fraction]Ordered By: Balwinder Alves on 12-14-2023 Hematocrit (Bld) [Volume fraction] 41.1 % 37-47 [facility] - Chemistry and C hemistry - challengeOrdered By: Balwinder Alves on 12-14-2023 Cholesterol in HDL [Mass/Vol] 49 mg/dL >40 [facility] Comment on above: The drugs N-Acetylcy steine and Metamizole may falsely depress this assay. Reference Range HDL <40 mg/dL Low HDL Cholesterol HDL >or= 60 mg/dL High HDL Cholesterol Cholesterol in LDL [Mass/Vol] 43 mg/dL 0-130 [facility] CO2 [Moles/Vol] 32.0 mmol/L 21.0-32.0 [facility] Urea nitrogen/Creatinine [Mass ratio] 12.2 mg/mg 10-20 [facility] Laboratory - Hematology and Cell countsOrdered By: Balwinder Alves on 12-14-2023 MCH (RBC) [Entitic mass] 28.2 pg 27.0-32.0 [facility] MCHC (RBC) [Mass/Vol] 30.4 g/dL 32-[address] [facility] Platelet mean volume (Bld) [Entitic vol] 8.5 fL 6.2-12.0 [facility] Platelets (Bld) [#/Vol] 174 10*3/uL 150-450 [facility] No Panel InformationOrdered By: Balwinder Alves on 12-14-2023 Estimated GFR (MDRD) Amer 130 mL/min >60 [facility] Comment on above: GFR Calc Estimated GFR (MDRD) Non-Af Amer 107 mL/min >60 [facility] Comment on above: Non- GFR Calc Vitamin D 25-Hydroxy 42.9 ng/mL [facility] Comment on above: Vitamin D 25(OH) Sta tus Range Deficiency <20 ng/mL (50nmol/L) Insufficiency 20 - 30 ng/mL (50 - 75 nmol/L) Sufficiency 30 - 100 ng/mL (75 - 250 nmol/L) Toxicity >100 ng/mL (>250 nmol/L) VLDL Cholesterol 36 mg/dL 5-40 [facility] RBC Auto (Bld) [#/Vol]Ordere d By: Balwinder Alves on 12-14-2023 RBC (Bld) [#/Vol] 4.44 10*6/uL 4.2-5.4 [facility] Serum or plasma calcium jacqueline urement (mass/volume)Ordered By: Balwinder Alves on 12-14-2023 Calcium [Mass/Vol] 8.9 mg/dL 8.5-10.1 [facility] Serum or plasma creatinine m easurement (mass/volume)Ordered By: Balwinder Alves on 12-14-2023 Creatinine [Mass/Vol] 0.58 mg/dL 0.55-1.[address] [facility] Comment on above: The validity of the calculated GFR & GFRAA in patients over 70 years has not been determined. Clinical correlation is essential. Serum or plasma urea nitroge n measurement (mass/volume)Ordered By: Balwinder Alves on 12-14-2023 Urea nitrogen [Mass/Vol] 7 mg/dL 7-18 [facility] Thin prep Papanicolaou smear with manual screeningOrdered By: Balwinder Alves on 12-14-2023 Thin prep Papanicolaou smear with manual screening 5 5-15 [facility] Whole blood hemoglobin A1c/t otal hemoglobin ratio (mass fraction)Ordered By: Balwinder Alves on 12-14-2023 HbA1c (Bld) [Mass fraction] 6.2 % 3.8-5.6 [facility] Comment on above: Normal < 5.7 % Predi abetic 5.7 - 6.4 % Diabetic >or= 6.5 % Please note range changes. Office Visiton 12-09-2023 Follow-up visit [id number] Joy Bustamante 1945 F Date Provider Department Center 12/09/2023 [id number], MIA [facility] OR None No family history on file Level of Service:68027 [place] OFFICE/OUTPATIENT ESTABLISHED LOW MDM 20 MIN Reason for Visit and Comments: Follow-up [002572] - L fibula fx Normal [facility] Progress Noteon 12-09-2023 Progress Note [facility] [address] [place] [address] [address] [facility] [address] Dept: [phone] Dept Gumaro Bustamante 1945 [id number] 12/09/2023 HISTORY OF PRESENT ILLNESS: Gumaro returns [...] instructed on it (more content not included)... [facility] 36on 10-14-2023 36 Spoke with Beny at [facility] and clarified that Gumaro should bear weight in her boot until next visit and should use walker as needed for balance. [facility] 36 Name of Caller: Gareth at [facility] Contact ask for Gareth Reason Gareth [...] requesting a call back. Office Name: Ortho [facility] Office Visiton 10-14-2023 Follow-up visit [id number] Joy Bustamante grace 1945 F Date Provider Department Center 10/14/2023 [id number] BETTENCOURT [facility] OR None No family history on file Level of Service:23097 [place] OFFICE/OUTPATIENT ESTABLISHED LOW MDM 20 MIN Reason for Visit and Comments: Follow-up [848559] - Left distal fibula fx DOI 07/02/23 [facility] Progress Noteon 10-14-2023 Progress Note [facility] [address] [place] [address] [place] [address] Dept: [phone] Dept Gumaro Daria 1945 [id number] 10/14/2023 HISTORY OF PRESENT ILLNESS: Gumaro returns [...] above p (more content not included)... Normal [facility] Clostridioides difficile nuc leic acid assay by PCROrdered By: Balwinder Alves on 09-23-2023 C. difficile DNA DIGNA+probe Ql (Unsp spec) [facility] Clostridium difficile detect ion by polymerase chain reactionOrdered By: Baliwnder Alves on 09-23-2023 C. difficile DNA DIGNA+probe Ql (Unsp spec) [facility] Basophil percentageOrdered B y: Balwinder Alves on 09-14-2023 Chloride [Moles/Vol] 102 mmol/L 98-107 [facility] Glucose [Mass/Vol] 142 mg/dL 74-106 [facility] Comment on above: Fasting Glucose resu lt greater than or equal to 126 mg/dL suggests DIABETES MELLITUS per A.D.A. criteria. Potassium [Moles/Vol] 4.1 mmol/L 3.5-5.[address] [facility] Sodium [Moles/Vol] 138 mmol/L 136-145 [facility] WBC (Bld) [#/Vol] 5.9 10*3/uL 4.4-11.0 [facility] Blood erythrocytes count (nu mber/volume)Ordered By: Balwinder Alves on 09-14-2023 RBC (Bld) [#/Vol] 4.96 10*6/uL 4.2-5.4 [facility] Blood hemoglobin measurement (mass/volume)Ordered By: Balwinder Alves on 09-14-2023 Hemoglobin (Bld) [Mass/Vol] 13.3 g/dL 12.0-15.0 [facility] Blood platelet mean volumeOr dered By: Balwinder Alves on 09-14-2023 Platelet mean volume (Bld) [Entitic vol] 8.3 fL 6.2-12.0 [facility] Determination of erythrocyte mean corpuscular volume (MCV)Ordered By: Balwinder Alves on 09-14-2023 MCV (RBC) [Entitic vol] 92.5 fL 81-[address] [facility] Hematocrit Auto (Bld) [Volum e fraction]Ordered By: Balwinder Alves on 09-14-2023 Hematocrit (Bld) [Volume fraction] 45.9 % 37-47 [facility] Laboratory - Chemistry and C hemistry - challengeOrdered By: Balwinder Alves on 09-14-2023 CO2 [Moles/Vol] 31.0 mmol/L 21.0-32.0 [facility] Urea nitrogen/Creatinine [Mass ratio] 10.1 mg/mg 10-20 [facility] Laboratory - Hematology and Cell countsOrdered By: Balwinder Alves on 09-14-2023 Erythrocyte distribution width (RBC) [Entitic vol] 47.0 fL 35.1-43.9 [facility] Erythrocyte distribution width (RBC) [Ratio] 13.9 % 11.6-14.6 [facility] MCH (RBC) [Entitic mass] 26.8 pg 27.0-32.0 [facility] MCHC Auto (RBC) [Mass/Vol]Or dered By: Balwinder Alves on 09-14-2023 MCHC (RBC) [Mass/Vol] 29.0 g/dL 32-[address] [facility] No Panel InformationOrdered By: Balwinder Alves on 09-14-2023 Estimated GFR (MDRD) Amer 125 mL/min >60 [facility] Comment on above: GFR Calc Estimated GFR (MDRD) Non-Af Amer 103 mL/min >60 [facility] Comment on above: Non- GFR Calc Office Visiton 09-14-2023 Follow-up visit [id number] Joy Bustamante grace 1945 F Date Provider Department Center 09/14/2023 [id number] GRIGGS [facility] No family history on file Level of Service:90440 [place] OFFICE/OUTPATIENT NEW MODERATE MDM 45-59 MINUTES Reason for Visit and Comments: New Patient [542] - LT distal fibula fx DOI 07/02/23 Normal [facility] Platelets bldOrdered By: Javed Alves on 09-14-2023 Platelets (Bld) [#/Vol] 196 10*3/uL 150-450 [facility] Progress Noteon 09-14-2023 Progress Note [facility] [address] [facility] [address] Dept: [phone] Dept Gumaro Bustamante 1945 [id number] 09/14/2023 HISTORY OF PRESENT ILLNESS: Gumaro is a 78 y.o. female here today for evaluation of her Left distal fibula fx DOI 07/02/23. Patient has been in a walking boot. Patient is diabetic. She is currently in a long term due to injury. She was supposed to be seen closer to her fx date but her appointments were canceled due to long term transportation issues. She has been nonweightbearing since her injury. Gumaro states the problem has been present for 3 months est Gumaro states the problem started as the result of a fall, tripped walking into her home. Gumaro has tried or has been treated with the following: walking boot, long term PT. Review of Systems Surgical Risk Factors: [...] given he (more content not included)... Normal [facility] Serum or plasma calcium jacqueline urement (mass/volume)Ordered By: Balwinder Alves on 09-14-2023 Calcium [Mass/Vol] 8.9 mg/dL 8.5-10.1 [facility] Serum or plasma creatinine m easurement (mass/volume)Ordered By: Balwinder Alves on 09-14-2023 Creatinine [Mass/Vol] 0.59 mg/dL 0.55-1.[address] [facility] Comment on above: The validity of the calculated GFR & GFRAA in patients over 70 years has not been determined. Clinical correlation is essential. Serum or plasma urea nitroge n measurement (mass/volume)Ordered By: Balwinder Alves on 09-14-2023 Urea nitrogen [Mass/Vol] 6 mg/dL 7-18 [facility] Thin prep Papanicolaou smear with manual screeningOrdered By: Balwinder Alves on 09-14-2023 Thin prep Papanicolaou smear with manual screening 5 5-15 [facility] XR ANKLE 3+ VIEWS LEFTon [...] at the lateral malleolar fracture site. Normal [facility] XR FOOT 3+ VIEWS LEFTon 09-04 [...] at the lateral malleolar fracture site. Normal [facility] 36on 09-03-2023 36 Left distal fibula f x doi 07/02/23 she is in a boot. Can only be seen in blanket or dow. No wads Normal [facility] 36on 09-02-2023 36 Gareth an RN at [facility] called [phone] ext [phone], he states that they just got Gumaro from [place] and they are looking for her to [...] today and then works again tomorrow. Normal [facility] 36on 07-17-2023 36 LVM to schedule with Dr. Ureña on Thursday at 1pm in [facility] or 9am in [place] if not already double booked. Normal [facility] .Auto DiffOrdered By: SYSTEM SYSTEM on 07-04-2023 Basophil, Absolute 0.0 103/mcL Normal 0.0-0.2 AO Wo rkflow [facility] Comment on above: Performed By: #### L IPID, ADIFF, ANEU, CMP, CBC, GFR #### [address] [address] Basophils/100 WBC (Bld) 0.4 % Normal 0.0-2.5 A O Workflow SS Comment on above: Performed By: #### L IPID, ADIFF, ANEU, CMP, CBC, GFR #### [address] [address] Eosinophil, Absolute 0.4 103/mcL Normal 0.0-0.4 [facility] Workflow [facility] Comment on above: Performed By: #### L IPID, ADIFF, ANEU, CMP, CBC, GFR #### [address] [address] Eosinophils/100 WBC (Bld) 6.9 % Normal 0.0-7.0 [facility] Workflow [facility] Comment on above: Performed By: #### L IPID, ADIFF, ANEU, CMP, CBC, GFR #### [address] [address] Lymphocyte, Absolute 1.7 103/mcL Normal 0.8-3.9 [facility] Workflow [facility] Comment on above: Performed By: #### L IPID, ADIFF, ANEU, CMP, CBC, GFR #### [address] [address] Lymphocytes/100 WBC (Bld) 27.3 % Normal 10.0-50.0 [facility] Work[facility] Comment on above: Performed By: #### L IPID, ADIFF, ANEU, CMP, CBC, GFR #### [address] [address] Monocyte, Absolute 0.4 103/mcL Normal 0.2-1.0 AO Wo rkflow SS Comment on above: Performed By: #### L IPID, ADIFF, ANEU, CMP, CBC, GFR #### [address] [address] Monocytes/100 WBC (Bld) 6.4 % Normal 1.7-13.0 A O Workflow SS Comment on above: Performed By: #### L IPID, ADIFF, ANEU, CMP, CBC, GFR #### [address] [address] Neutrophils/100 WBC (Bld) 59.0 % Normal 37.0-80.0 [facility] Workflow [facility] Comment on above: Performed By: #### L IPID, ADIFF, ANEU, CMP, CBC, GFR #### [address] [address] .GFRon 07-04-2023 GFR 93 ml/min/1.73sqm Normal [facility] ([place]) Comment on above: Result Comment: GFR Population [...] IPID, ADIFF, ANEU, CMP, CBC, GFR #### [address] [address] GFR Non- 77 ml/min/1.73sqm Normal [facility] ([place]) Comment on above: Result Comment: GFR Population [...] IPID, ADIFF, ANEU, CMP, CBC, GFR #### [address] [address] .NEUABSOrdered By: SYSTEM SY STEM on 07-04-2023 Neutrophil, Absolute 3.7 103/mcL Normal 2.9-6.2 [facility] Work[facility] Comment on above: Performed By: #### L IPID, ADIFF, ANEU, CMP, CBC, GFR #### [address] [address] BMPon 07-04-2023 BUN/Creatinine Ratio 14 ratio Normal 7-27 [facility] ([place]) Comment on above: Performed By: #### L IPID, ADIFF, ANEU, CMP, CBC, GFR #### [address] [address] BMPOrdered By: SYSTEM SYSTEM on 07-04-2023 Calcium [Mass/Vol] 8.1 mg/dL Low 8.4-10.2 AO ADM SS Comment on above: Performed By: #### L IPID, ADIFF, ANEU, CMP, CBC, GFR #### [address] [address] Chloride [Moles/Vol] 104 mmol/L Normal 98-107 AO A DM SS Comment on above: Performed By: #### L IPID, ADIFF, ANEU, CMP, CBC, GFR #### [address] [address] CO2 [Moles/Vol] 29 mmol/L Normal 23-31 AO ADM SS Comment on above: Performed By: #### L IPID, ADIFF, ANEU, CMP, CBC, GFR #### [address] [address] Creatinine [Mass/Vol] 0.73 mg/dL Normal 0.55-1.02 AO ADM SS Comment on above: Performed By: #### L IPID, ADIFF, ANEU, CMP, CBC, GFR #### [address] [address] Electrolyte Balance 6.0 mEq/L Normal 4.0-15.0 AO AD M SS Comment on above: Performed By: #### L IPID, ADIFF, ANEU, CMP, CBC, GFR #### [place] [id number] Glucose [Mass/Vol] 145 mg/dL High 83-110 AO ADM SS Comment on above: Performed By: #### L IPID, ADIFF, ANEU, CMP, CBC, GFR #### [address] [address] Potassium [Moles/Vol] 4.9 mmol/L Normal 3.5-5.1 AO ADM SS Comment on above: Performed By: #### L IPID, ADIFF, ANEU, CMP, CBC, GFR #### [address] [address] Sodium [Moles/Vol] 139 mmol/L Normal 136-145 AO ADM SS Comment on above: Performed By: #### L IPID, ADIFF, ANEU, CMP, CBC, GFR #### [address] [address] Urea nitrogen [Mass/Vol] 10 mg/dL Normal 7-18 AO ADM SS Comment on above: Performed By: #### L IPID, ADIFF, ANEU, CMP, CBC, GFR #### [address] [address] CBCOrdered By: SYSTEM SYSTEM on 07-04-2023 Erythrocyte distribution width (RBC) [Ratio] 14.2 % Normal 11.5-14.5 [facility] Workflow [facility] Comment on above: Performed By: #### L IPID, ADIFF, ANEU, CMP, CBC, GFR #### [address] [address] Hematocrit (Bld) [Volume fraction] 35.4 % Low 37.0-47.0 AO Workflow SS Comment on above: Performed By: #### L IPID, ADIFF, ANEU, CMP, CBC, GFR #### [address] [address] MCH (RBC) [Entitic mass] 28.7 pg Normal 27.0-31.2 AO Workflow SS Comment on above: Performed By: #### L IPID, ADIFF, ANEU, CMP, CBC, GFR #### [address] [address] MCHC 32.4 G/dL Low 33.0-37.0 AO Workflow SS Comment on above: Performed By: #### L IPID, ADIFF, ANEU, CMP, CBC, GFR #### [address] [address] MCV (RBC) [Entitic vol] 88.6 fL Normal 80.0-94.0 A O Workflow SS Comment on above: Performed By: #### L IPID, ADIFF, ANEU, CMP, CBC, GFR #### [address] [address] Platelet mean volume (Bld) [Entitic vol] 6.5 fL Low 7.4-10.4 AO Workflow SS Comment on above: Performed By: #### L IPID, ADIFF, ANEU, CMP, CBC, GFR #### [address] [address] CBCon 07-04-2023 Hgb 11.4 G/dL Low 12.0-16.0 [facility] ([place]) Comment on above: Performed By: #### L IPID, ADIFF, ANEU, CMP, CBC, GFR #### [address] [address] Platelet 165 10 3/mcL Normal 130-400 [facility] ([place]) Comment on above: Performed By: #### L IPID, ADIFF, ANEU, CMP, CBC, GFR #### [place] [id number] [place], [place] [address] RBC 3.99 10 6/mcL Low 4.20-5.40 [facility] ([place]) Comment on above: Performed By: #### L IPID, ADIFF, ANEU, CMP, CBC, GFR #### [place] [address] [place], [place] [address] WBC 6.3 10 3/mcL Normal 4.6-10.8 [facility] ([place]) Comment on above: Performed By: #### L IPID, ADIFF, ANEU, CMP, CBC, GFR #### [place] [id number] [place], [place] [address] LABORATORYOrdered By: Darwin Diaz on 07-04-2023 Blood Glucose Testing Reason Routine (07/04/23 4:36 PM) [facility] Work Phone: Glucose [Mass/Vol] 125 mg/dL Invalid Interpretation Code 82 - 115 mg/dL [facility] Work Phone: Blood Glucose Testing Reason Routine (07/04/23 10:38 AM) [facility] Work Phone: LABORATORYOrdered By: Loretta Mejia on 07-04-2023 Glucose [Mass/Vol] 140 mg/dL Invalid Interpretation Code 82 - 115 mg/dL [facility] Work Phone: Glucose [Mass/Vol] 139 mg/dL Invalid Interpretation Code 82 - 115 mg/dL [facility] Work Phone: LABORATORYOrdered By: SYSTEM SYSTEM [...] IPID, ADIFF, ANEU, CMP, CBC, GFR #### [address] [address] .Auto Diffon 07-03-2023 Basophil, Absolute 0.0 10 3/mcL Normal 0.0-0.2 [facility] ([place]) Comment on above: Performed By: #### L IPID, ADIFF, ANEU, CMP, CBC, GFR #### [address] [address] Basophils/100 WBC (Bld) 0.5 % Normal 0.0-2.5 A [facility] ([place]) Comment on above: Performed By: #### L IPID, ADIFF, ANEU, CMP, CBC, GFR #### [address] [address] Eosinophil, Absolute 0.4 10 3/mcL Normal 0.0-0.4 [facility] ([place] Comment on above: Performed By: #### L IPID, ADIFF, ANEU, CMP, CBC, GFR #### [address] [address] Eosinophils/100 WBC (Bld) 6.7 % Normal 0.0-7.0 [facility] ([place]) Comment on above: Performed By: #### L IPID, ADIFF, ANEU, CMP, CBC, GFR #### [address] [address] Lymphocyte, Absolute 1.8 10 3/mcL Normal 0.8-3.9 [facility] [place] Comment on above: Performed By: #### L IPID, ADIFF, ANEU, CMP, CBC, GFR #### [address] [address] Lymphocytes/100 WBC (Bld) 31.4 % Normal 10.0-50.0 [facility] ([place]) Comment on above: Performed By: #### L IPID, ADIFF, ANEU, CMP, CBC, GFR #### [address] [address] Monocyte, Absolute 0.4 10 3/mcL Normal 0.2-1.0 [facility] ([place]) Comment on above: Performed By: #### L IPID, ADIFF, ANEU, CMP, CBC, GFR #### [address] [address] Monocytes/100 WBC (Bld) 6.4 % Normal 1.7-13.0 A [facility] ([place]) Comment on above: Performed By: #### L IPID, ADIFF, ANEU, CMP, CBC, GFR #### [address] [address] Neutrophils/100 WBC (Bld) 55.0 % Normal 37.0-80.0 [facility] ([place]) Comment on above: Performed By: #### L IPID, ADIFF, ANEU, CMP, CBC, GFR #### [address] [address] .GFRon 07-03-2023 GFR 92 ml/min/1.73sqm Normal [facility] ([place]) Comment on above: Result Comment: GFR Population [...] IPID, ADIFF, ANEU, CMP, CBC, GFR #### [address] [address] GFR Non- 76 ml/min/1.73sqm Normal [facility] ([place]) Comment on above: Result Comment: GFR Population [...] IPID, ADIFF, ANEU, CMP, CBC, GFR #### [address] [address] .NEUABSon 07-03-2023 Neutrophil, Absolute 3.2 10 3/mcL Normal 2.9-6.2 [facility] [place] Comment on above: Performed By: #### L IPID, ADIFF, ANEU, CMP, CBC, GFR #### [address] [address] BMPon 07-03-2023 BUN/Creatinine Ratio 11 ratio Normal 7-27 [facility] ([place]) Comment on above: Performed By: #### L IPID, ADIFF, ANEU, CMP, CBC, GFR #### [address] [address] Calcium [Mass/Vol] 8.4 mg/dL Normal 8.4-10.2 [facility] ([place]) Comment on above: Performed By: #### L IPID, ADIFF, ANEU, CMP, CBC, GFR #### [address] [address] Chloride [Moles/Vol] 103 mmol/L Normal 98-107 [facility] ([place]) Comment on above: Performed By: #### L IPID, ADIFF, ANEU, CMP, CBC, GFR #### [address] [address] CO2 [Moles/Vol] 31 mmol/L Normal 23-31 [facility] ([place]) Comment on above: Performed By: #### L IPID, ADIFF, ANEU, CMP, CBC, GFR #### [address] [address] Creatinine [Mass/Vol] 0.74 mg/dL Normal 0.55-1.02 [facility] ([place]) Comment on above: Performed By: #### L IPID, ADIFF, ANEU, CMP, CBC, GFR #### [address] [address] Electrolyte Balance 6.0 mEq/L Normal 4.0-15.0 [facility] ([place]) Comment on above: Performed By: #### L IPID, ADIFF, ANEU, CMP, CBC, GFR #### [address] [address] Glucose [Mass/Vol] 165 mg/dL High 83-110 [facility] ([place]) Comment on above: Performed By: #### L IPID, ADIFF, ANEU, CMP, CBC, GFR #### [address] [address] Potassium [Moles/Vol] 4.6 mmol/L Normal 3.5-5.1 [facility] ([place]) Comment on above: Performed By: #### L IPID, ADIFF, ANEU, CMP, CBC, GFR #### [address] [address] Sodium [Moles/Vol] 140 mmol/L Normal 136-145 [facility] ([place]) Comment on above: Performed By: #### L IPID, ADIFF, ANEU, CMP, CBC, GFR #### [address] [address] Urea nitrogen [Mass/Vol] 8 mg/dL Normal 7-18 [facility] ([place]) Comment on above: Performed By: #### L IPID, ADIFF, ANEU, CMP, CBC, GFR #### [address] [address] CBCon 07-03-2023 Erythrocyte distribution width (RBC) [Ratio] 14.4 % Normal 11.5-14.5 [facility] ([place]) Comment on above: Performed By: #### L IPID, ADIFF, ANEU, CMP, CBC, GFR #### [place] [address] Hematocrit (Bld) [Volume fraction] 36.4 % Low 37.0-47.0 [facility] ([place]) Comment on above: Performed By: #### L IPID, ADIFF, ANEU, CMP, CBC, GFR #### [place] [address] Hgb 11.6 G/dL Low 12.0-16.0 [facility] ([place]) Comment on above: Performed By: #### L IPID, ADIFF, ANEU, CMP, CBC, GFR #### [address] [address] MCH (RBC) [Entitic mass] 28.3 pg Normal 27.0-31.2 [facility] ([place]) Comment on above: Performed By: #### L IPID, ADIFF, ANEU, CMP, CBC, GFR #### [place] [address] MCHC 31.9 G/dL Low 33.0-37.0 [facility] ([place] Comment on above: Performed By: #### L IPID, ADIFF, ANEU, CMP, CBC, GFR #### [place] [address] MCV (RBC) [Entitic vol] 88.9 fL Normal 80.0-94.0 A [facility] ([place]) Comment on above: Performed By: #### L IPID, ADIFF, ANEU, CMP, CBC, GFR #### [place] [id number] Platelet 158 10 3/mcL Normal 130-400 [facility] ([place]) Comment on above: Performed By: #### L IPID, ADIFF, ANEU, CMP, CBC, GFR #### [place] [address] Platelet mean volume (Bld) [Entitic vol] 6.6 fL Low 7.4-10.4 [facility] ([place]) Comment on above: Performed By: #### L IPID, ADIFF, ANEU, CMP, CBC, GFR #### [facility] [address] [place], [place] [address] RBC 4.10 10 6/mcL Low 4.20-5.40 [facility] ([place]) Comment on above: Performed By: #### L IPID, ADIFF, ANEU, CMP, CBC, GFR #### [place] [address] [place], [place] [address] WBC 5.8 10 3/mcL Normal 4.6-10.8 [facility] ([place]) Comment on above: Performed By: #### L IPID, ADIFF, ANEU, CMP, CBC, GFR #### [place] [address] [place], [place] [address] LABORATORYOrdered By: Jose Shepard on 07-03-2023 Blood Glucose Testing Reason Routine (07/03/23 9:10 PM) [facility] Work Phone: LABORATORYOrdered By: SYSTEM SYSTEM [...] 07-03-2023 Magnesium [Mass/Vol] 1.8 mg/dL Normal 1.8-2.4 [facility] ([place] Comment on above: Performed By: #### L IPID, ADIFF, ANEU, CMP, CBC, GFR #### [address] [address] .Auto Diffon 07-02-2023 Basophil, Absolute 0.0 10 3/mcL Normal 0.0-0.2 [facility] ([place] Comment on above: Performed By: #### A DIFF, MG, ANEU, GFR, BMP, CBC #### [address] [address] Basophils/100 WBC (Bld) 0.7 % Normal 0.0-2.5 A [facility] ([place]) Comment on above: Performed By: #### A DIFF, MG, ANEU, GFR, BMP, CBC #### [address] [address] Eosinophil, Absolute 0.3 10 3/mcL Normal 0.0-0.4 [facility] [place] Comment on above: Performed By: #### A DIFF, MG, ANEU, GFR, BMP, CBC #### [address] [address] Eosinophils/100 WBC (Bld) 5.6 % Normal 0.0-7.0 [facility] ([place]) Comment on above: Performed By: #### A DIFF, MG, ANEU, GFR, BMP, CBC #### [address] [address] Lymphocyte, Absolute 1.8 10 3/mcL Normal 0.8-3.9 [facility] [place] Comment on above: Performed By: #### A DIFF, MG, ANEU, GFR, BMP, CBC #### [address] [address] Lymphocytes/100 WBC (Bld) 33.2 % Normal 10.0-50.0 [facility] ([place]) Comment on above: Performed By: #### A DIFF, MG, ANEU, GFR, BMP, CBC #### [address] [address] Monocyte, Absolute 0.4 10 3/mcL Normal 0.2-1.0 [facility] ([place]) Comment on above: Performed By: #### A DIFF, MG, ANEU, GFR, BMP, CBC #### [address] [address] Monocytes/100 WBC (Bld) 7.8 % Normal 1.7-13.0 A [facility] ([place]) Comment on above: Performed By: #### A DIFF, MG, ANEU, GFR, BMP, CBC #### [address] [address] Neutrophils/100 WBC (Bld) 52.7 % Normal 37.0-80.0 [facility] ([place]) Comment on above: Performed By: #### A DIFF, MG, ANEU, GFR, BMP, CBC #### [address] [address] .GFRon 07-02-2023 GFR 85 ml/min/1.73sqm Normal [facility] ([place]) Comment on above: Result Comment: GFR Population [...] IPID, ADIFF, ANEU, CMP, CBC, GFR #### [address] [address] GFR Non- 70 ml/min/1.73sqm Normal [facility] ([place]) Comment on above: Result Comment: GFR Population [...] IPID, ADIFF, ANEU, CMP, CBC, GFR #### [address] [address] .NEUABSon 07-02-2023 Neutrophil, Absolute 2.9 10 3/mcL Normal 2.9-6.2 [facility] [place] Comment [place]: Performed By: #### A DIFF, MG, ANEU, GFR, BMP, CBC #### [address] [address] BMPon 07-02-2023 BUN/Creatinine Ratio 11 ratio Normal 7-27 [facility] ([place]) Comment on above: Performed By: #### A DIFF, MG, ANEU, GFR, BMP, CBC #### [address] [address] Calcium [Mass/Vol] 8.5 mg/dL Normal 8.4-10.2 [facility] ([place]) Comment on above: Performed By: #### A DIFF, MG, ANEU, GFR, BMP, CBC #### [address] [address] Chloride [Moles/Vol] 102 mmol/L Normal 98-107 [facility] ([place] Comment on above: Performed By: #### A DIFF, MG, ANEU, GFR, BMP, CBC #### [address] [address] CO2 [Moles/Vol] 31 mmol/L Normal 23-31 [facility] ([place] Comment on above: Performed By: #### A DIFF, MG, ANEU, GFR, BMP, CBC #### [address] [address] Creatinine [Mass/Vol] 0.79 mg/dL Normal 0.55-1.02 [facility] ([place]) Comment on above: Performed By: #### A DIFF, MG, ANEU, GFR, BMP, CBC #### [address] [address] Electrolyte Balance 5.0 mEq/L Normal 4.0-15.0 [facility] ([place]) Comment on above: Performed By: #### A DIFF, MG, ANEU, GFR, BMP, CBC #### [place] [address] Glucose [Mass/Vol] 144 mg/dL High 83-110 [facility] ([place] Comment on above: Performed By: #### A DIFF, MG, ANEU, GFR, BMP, CBC #### [place] [address] Potassium [Moles/Vol] 3.9 mmol/L Normal 3.5-5.1 [facility] ([place] Comment on above: Performed By: #### A DIFF, MG, ANEU, GFR, BMP, CBC #### [address] [address] Sodium [Moles/Vol] 138 mmol/L Normal 136-145 [facility] ([place] Comment on above: Performed By: #### A DIFF, MG, ANEU, GFR, BMP, CBC #### [address] [address] Urea nitrogen [Mass/Vol] 9 mg/dL Normal 7-18 [facility] ([place]) Comment on above: Performed By: #### A DIFF, MG, ANEU, GFR, BMP, CBC #### [address] [address] CBCon 07-02-2023 Erythrocyte distribution width (RBC) [Ratio] 14.6 % High 11.5-14.5 [facility] ([place] Comment on above: Performed By: #### A DIFF, MG, ANEU, GFR, BMP, CBC #### [address] [address] Hematocrit (Bld) [Volume fraction] 35.7 % Low 37.0-47.0 [facility] ([place] Comment on above: Performed By: #### A DIFF, MG, ANEU, GFR, BMP, CBC #### [place] [id number] Hgb 11.3 G/dL Low 12.0-16.0 [facility] ([place] Comment on above: Performed By: #### A DIFF, MG, ANEU, GFR, BMP, CBC #### [place] [address] MCH (RBC) [Entitic mass] 28.1 pg Normal 27.0-31.2 [facility] ([place] Comment on above: Performed By: #### A DIFF, MG, ANEU, GFR, BMP, CBC #### [place] [address] MCHC 31.7 G/dL Low 33.0-37.0 [facility] ([place] Comment on above: Performed By: #### A DIFF, MG, ANEU, GFR, BMP, CBC #### [address] [address] MCV (RBC) [Entitic vol] 88.6 fL Normal 80.0-94.0 [facility] ([place]) Comment on above: Performed By: #### A DIFF, MG, ANEU, GFR, BMP, CBC #### [address] [address] Platelet 159 10 3/mcL Normal 130-400 [facility] ([place] Comment on above: Performed By: #### A DIFF, MG, ANEU, GFR, BMP, CBC #### [address] [address] Platelet mean volume (Bld) [Entitic vol] 6.6 fL Low 7.4-10.4 [facility] ([place] Comment on above: Performed By: #### A DIFF, MG, ANEU, GFR, BMP, CBC #### [place] [id number] [place], [place] [address] RBC 4.03 10 6/mcL Low 4.20-5.40 [facility] ([place] Comment on above: Performed By: #### A DIFF, MG, ANEU, GFR, BMP, CBC #### [place] [phone] [place], [place] [address] WBC 5.5 10 3/mcL Normal 4.6-10.8 [facility] ([place] Comment on above: Performed By: #### A DIFF, MG, ANEU, GFR, BMP, CBC #### [place] [id number] [place], [place] [address] LABORATORYOrdered By: SYSTEM SYSTEM on 07-02-2023 Basophil, [...] 07-02-2023 Magnesium [Mass/Vol] 1.7 mg/dL Low 1.8-2.4 [facility] ([place] Comment on above: Performed By: #### L IPID, ADIFF, ANEU, CMP, CBC, GFR #### [place] [address] .Auto Diffon 07-01-2023 Basophil, Absolute 0.0 10 3/mcL Normal 0.0-0.2 [facility] [place] Comment on above: Performed By: #### L IPID, ADIFF, ANEU, CMP, CBC, GFR #### [address] [address] Basophils/100 WBC (Bld) 0.5 % Normal 0.0-2.5 [facility] ([place] Comment on above: Performed By: #### L IPID, ADIFF, ANEU, CMP, CBC, GFR #### [address] [address] Eosinophil, Absolute 0.4 10 3/mcL Normal 0.0-0.4 [facility] [place]: Performed By: #### L IPID, ADIFF, ANEU, CMP, CBC, GFR #### [address] [address] Eosinophils/100 WBC (Bld) 5.7 % Normal 0.0-7.0 [facility] ([place] Comment on above: Performed By: #### L IPID, ADIFF, ANEU, CMP, CBC, GFR #### [address] [address] Lymphocyte, Absolute 1.9 10 3/mcL Normal 0.8-3.9 [facility] [place]: Performed By: #### L IPID, ADIFF, ANEU, CMP, CBC, GFR #### [address] [address] Lymphocytes/100 WBC (Bld) 28.0 % Normal 10.0-50.0 [facility] ([place] Comment on above: Performed By: #### L IPID, ADIFF, ANEU, CMP, CBC, GFR #### [address] [address] Monocyte, Absolute 0.5 10 3/mcL Normal 0.2-1.0 [facility] [place] Comment on above: Performed By: #### L IPID, ADIFF, ANEU, CMP, CBC, GFR #### [address] [address] Monocytes/100 WBC (Bld) 6.9 % Normal 1.7-13.0 [facility] ([place] Comment on above: Performed By: #### L IPID, ADIFF, ANEU, CMP, CBC, GFR #### [place] [id number] [place], [place] [address] Neutrophils/100 WBC (Bld) 58.9 % Normal 37.0-80.0 [facility] ([place] Comment on above: Performed By: #### L IPID, ADIFF, ANEU, CMP, CBC, GFR #### [place] [address] [place], [place] [address] .GFRon 07-01-2023 GFR 73 ml/min/1.73sqm Normal [facility] ([place] Comment on above: Result Comment: GFR Population [...] ADIFF, ANEU, CMP, CBC, GFR #### [place] [address] [place], [place] [address] GFR Non- 60 ml/min/1.73sqm Normal [facility] ([place] Comment on above: Result Comment: GFR Population [...] IPID, ADIFF, ANEU, CMP, CBC, GFR #### [address] [address] .NEUABSon 07-01-2023 Neutrophil, Absolute 4.1 10 3/mcL Normal 2.9-6.2 [facility] [place]: Performed By: #### L IPID, ADIFF, ANEU, CMP, CBC, GFR #### [address] [address] BMPon 07-01-2023 BUN/Creatinine Ratio 12 ratio Normal 7-27 [facility] [place] Comment on above: Performed By: #### L IPID, ADIFF, ANEU, CMP, CBC, GFR #### [address] [address] Calcium [Mass/Vol] 8.5 mg/dL Normal 8.4-10.2 [facility] ([place] Comment on above: Performed By: #### L IPID, ADIFF, ANEU, CMP, CBC, GFR #### [address] [address] Chloride [Moles/Vol] 103 mmol/L Normal 98-107 [facility] [place] Comment on above: Performed By: #### L IPID, ADIFF, ANEU, CMP, CBC, GFR #### [address] [address] CO2 [Moles/Vol] 32 mmol/L High 23-31 [facility] ([place] Comment on above: Performed By: #### L IPID, ADIFF, ANEU, CMP, CBC, GFR #### [address] [address] Creatinine [Mass/Vol] 0.90 mg/dL Normal 0.55-1.02 [facility] [place] Comment on above: Performed By: #### L IPID, ADIFF, ANEU, CMP, CBC, GFR #### [address] [address] Electrolyte Balance 5.0 mEq/L Normal 4.0-15.0 [facility] ([place] Comment on above: Performed By: #### L IPID, ADIFF, ANEU, CMP, CBC, GFR #### [address] [address] Glucose [Mass/Vol] 138 mg/dL High 83-110 [facility] ([place] Comment on above: Performed By: #### L IPID, ADIFF, ANEU, CMP, CBC, GFR #### [address] [address] Potassium [Moles/Vol] 4.0 mmol/L Normal 3.5-5.1 [facility] [place] Comment on above: Performed By: #### L IPID, ADIFF, ANEU, CMP, CBC, GFR #### [address] [address] Sodium [Moles/Vol] 140 mmol/L Normal 136-145 [facility] ([place] Comment on above: Performed By: #### L IPID, ADIFF, ANEU, CMP, CBC, GFR #### [address] [address] Urea nitrogen [Mass/Vol] 11 mg/dL Normal 7-18 [facility] ([place] Comment on above: Performed By: #### L IPID, ADIFF, ANEU, CMP, CBC, GFR #### [address] [address] CBCon 07-01-2023 Erythrocyte distribution width (RBC) [Ratio] 14.6 % High 11.5-14.5 [facility] ([place] Comment on above: Performed By: #### L IPID, ADIFF, ANEU, CMP, CBC, GFR #### [address] [address] Hematocrit (Bld) [Volume fraction] 36.2 % Low 37.0-47.0 [facility] ([place] Comment on above: Performed By: #### L IPID, ADIFF, ANEU, CMP, CBC, GFR #### [address] [address] Hgb 11.6 G/dL Low 12.0-16.0 [facility] ([place] Comment on above: Performed By: #### L IPID, ADIFF, ANEU, CMP, CBC, GFR #### [place] [address] MCH (RBC) [Entitic mass] 28.1 pg Normal 27.0-31.2 [facility] ([place] Comment on above: Performed By: #### L IPID, ADIFF, ANEU, CMP, CBC, GFR #### [place] [address] MCHC 32.0 G/dL Low 33.0-37.0 [facility] ([place] Comment on above: Performed By: #### L IPID, ADIFF, ANEU, CMP, CBC, GFR #### [place] [address] MCV (RBC) [Entitic vol] 87.8 fL Normal 80.0-94.0 [facility] ([place] Comment on above: Performed By: #### L IPID, ADIFF, ANEU, CMP, CBC, GFR #### [place] [id number] Platelet 170 10 3/mcL Normal 130-400 [facility] ([place] Comment on above: Performed By: #### L IPID, ADIFF, ANEU, CMP, CBC, GFR #### [address] [address] Platelet mean volume (Bld) [Entitic vol] 6.4 fL Low 7.4-10.4 [facility] ([place] Comment on above: Performed By: #### L IPID, ADIFF, ANEU, CMP, CBC, GFR #### [place] [address] RBC 4.12 10 6/mcL Low 4.20-5.40 [facility] ([place] Comment on above: Performed By: #### L IPID, ADIFF, ANEU, CMP, CBC, GFR #### [address] [address] WBC 6.9 10 3/mcL Normal 4.6-10.8 [facility] ([place] Comment on above: Performed By: #### L IPID, ADIFF, ANEU, CMP, CBC, GFR #### [address] [address] MGon 07-01-2023 Magnesium [Mass/Vol] 1.5 mg/dL Low 1.8-2.4 [facility] ([place] Comment [place] above: Performed By: #### L IPID, ADIFF, ANEU, CMP, CBC, GFR #### [address] [address] .Auto Diffon 06-30-2023 Basophil, Absolute 0.0 10 3/mcL Normal 0.0-0.2 [facility]) Comment on above: Performed By: #### L IPID, ADIFF, ANEU, CMP, CBC, GFR #### [address] [address] Basophils/100 WBC (Bld) 0.4 % Normal 0.0-2.5 A [facility] Comment on above: Performed By: #### L IPID, ADIFF, ANEU, CMP, CBC, GFR #### [address] [address] Eosinophil, Absolute 0.5 10 3/mcL High 0.0-0.4 [facility] [place]: Performed By: #### L IPID, ADIFF, ANEU, CMP, CBC, GFR #### [address] [address] Eosinophils/100 WBC (Bld) 4.7 % Normal 0.0-7.0 [facility] ([place] Comment on above: Performed By: #### L IPID, ADIFF, ANEU, CMP, CBC, GFR #### [address] [place] [address] Lymphocyte, Absolute 1.7 10 3/mcL Normal 0.8-3.9 [facility] [place]: Performed By: #### L IPID, ADIFF, ANEU, CMP, CBC, GFR #### [address] [address] Lymphocytes/100 WBC (Bld) 17.7 % Normal 10.0-50.0 [facility] ([place] Comment on above: Performed By: #### L IPID, ADIFF, ANEU, CMP, CBC, GFR #### [address] [address] Monocyte, Absolute 0.5 10 3/mcL Normal 0.2-1.0 [facility] [place] Comment on above: Performed By: #### L IPID, ADIFF, ANEU, CMP, CBC, GFR #### [address] [address] Monocytes/100 WBC (Bld) 5.4 % Normal 1.7-13.0 [facility] ([place]) Comment on above: Performed By: #### L IPID, ADIFF, ANEU, CMP, CBC, GFR #### [address] [address] Neutrophils/100 WBC (Bld) 71.8 % Normal 37.0-80.0 [facility] ([place] Comment on above: Performed By: #### L IPID, ADIFF, ANEU, CMP, CBC, GFR #### [address] [address] .GFRon 06-30-2023 GFR 75 ml/min/1.73sqm Normal [facility] ([place] Comment on above: Result Comment: GFR Population [...] IPID, ADIFF, ANEU, CMP, CBC, GFR #### [address] [address] GFR Non- 62 ml/min/1.73sqm Normal [facility] ([place] Comment on above: Result Comment: GFR Population [...] IPID, ADIFF, ANEU, CMP, CBC, GFR #### [address] [address] .MDWon 06-30-2023 Monocyte Distribution Width 17.82 Normal 0.00-20.00 [facility] ([place]) Comment on above: Result Comment: For ED adult patients suspected of sepsis, MDW<=20.0 does not rule out sepsis or risk of sepsis Performed By: #### L IPID, ADIFF, ANEU, CMP, CBC, GFR #### [address] [address] .NEUABSon 06-30-2023 Neutrophil, Absolute 7.1 10 3/mcL High 2.9-6.2 [facility] [place] Comment [place]: Performed By: #### L IPID, ADIFF, ANEU, CMP, CBC, GFR #### [address] [address] BMPon 06-30-2023 BUN/Creatinine Ratio 10 ratio Normal 7-27 [facility] [place] Comment on above: Performed By: #### L IPID, ADIFF, ANEU, CMP, CBC, GFR #### [address] [address] Calcium [Mass/Vol] 9.0 mg/dL Normal 8.4-10.2 [facility] ([place] Comment on above: Performed By: #### L IPID, ADIFF, ANEU, CMP, CBC, GFR #### [address] [address] Chloride [Moles/Vol] 100 mmol/L Normal 98-107 [facility] [place] Comment on above: Performed By: #### L IPID, ADIFF, ANEU, CMP, CBC, GFR #### [place] [address] CO2 [Moles/Vol] 33 mmol/L High 23-31 [facility] ([place] Comment on above: Performed By: #### L IPID, ADIFF, ANEU, CMP, CBC, GFR #### [place] [address] Creatinine [Mass/Vol] 0.88 mg/dL Normal 0.55-1.02 [facility] ([place] Comment on above: Performed By: #### L IPID, ADIFF, ANEU, CMP, CBC, GFR #### [address] [address] Electrolyte Balance 6.0 mEq/L Normal 4.0-15.0 [facility] ([place] Comment on above: Performed By: #### L IPID, ADIFF, ANEU, CMP, CBC, GFR #### [place] [address] Glucose [Mass/Vol] 147 mg/dL High 83-110 [facility] ([place] Comment on above: Performed By: #### L IPID, ADIFF, ANEU, CMP, CBC, GFR #### [address] [address] Potassium [Moles/Vol] 3.8 mmol/L Normal 3.5-5.1 [facility] ([place] Comment on above: Performed By: #### L IPID, ADIFF, ANEU, CMP, CBC, GFR #### [address] [address] Sodium [Moles/Vol] 139 mmol/L Normal 136-145 [facility] ([place] Comment on above: Performed By: #### L IPID, ADIFF, ANEU, CMP, CBC, GFR #### [address] [address] Urea nitrogen [Mass/Vol] 9 mg/dL Normal 7-18 [facility] ([place]) Comment on above: Performed By: #### L IPID, ADIFF, ANEU, CMP, CBC, GFR #### [address] [address] CBCon 06-30-2023 Erythrocyte distribution width (RBC) [Ratio] 14.6 % High 11.5-14.5 [facility] ([place] Comment on above: Performed By: #### L IPID, ADIFF, ANEU, CMP, CBC, GFR #### [address] [address] Hematocrit (Bld) [Volume fraction] 42.0 % Normal 37.0-47.0 [facility] ([place]) Comment on above: Performed By: #### L IPID, ADIFF, ANEU, CMP, CBC, GFR #### [address] [address] Hgb 13.4 G/dL Normal 12.0-16.0 [facility] ([place]) Comment on above: Performed By: #### L IPID, ADIFF, ANEU, CMP, CBC, GFR #### [address] [address] MCH (RBC) [Entitic mass] 28.4 pg Normal 27.0-31.2 [facility] ([place] Comment on above: Performed By: #### L IPID, ADIFF, ANEU, CMP, CBC, GFR #### [address] [address] MCHC 32.0 G/dL Low 33.0-37.0 [facility] ([place] Comment on above: Performed By: #### L IPID, ADIFF, ANEU, CMP, CBC, GFR #### [address] [address] MCV (RBC) [Entitic vol] 88.5 fL Normal 80.0-94.0 A [facility] ([place] Comment on above: Performed By: #### L IPID, ADIFF, ANEU, CMP, CBC, GFR #### [address] [address] Platelet 188 10 3/mcL Normal 130-400 [facility] ([place]) Comment on above: Performed By: #### L IPID, ADIFF, ANEU, CMP, CBC, GFR #### [place] [address] Platelet mean volume (Bld) [Entitic vol] 6.2 fL Low 7.4-10.4 [facility] ([place] Comment on above: Performed By: #### L IPID, ADIFF, ANEU, CMP, CBC, GFR #### [address] [address] RBC 4.74 10 6/mcL Normal 4.20-5.40 [facility] ([place] Comment on above: Performed By: #### L IPID, ADIFF, ANEU, CMP, CBC, GFR #### [address] [address] WBC 9.9 10 3/mcL Normal 4.6-10.8 [facility] ([place] Comment on above: Performed By: #### L IPID, ADIFF, ANEU, CMP, CBC, GFR #### [place] [id number] LABORATORYOrdered By: SYSTEM SYSTEM on 06-30-2023 Monocyte distribution width Auto (Bld) [Entitic vol] 17.82 1 Invalid Interpretation Code 0.00 - 20.00 AO Workflow SS Comment on above: Result Comment: For ED adult patients suspected of sepsis, MDW<=20.0 does not rule out sepsis or risk of sepsis [facility] 06-30-2023 U Creatinine 90.7 mg/dL Normal 28.0-117.0 [facility] ([place]) Comment on above: Performed By: #### L IPID, ADIFF, ANEU, CMP, CBC, GFR #### [place] [id number] [place], [place] [address] U Microalb 1927 mcg/dL Normal [facility] ([place] Comment on above: Performed By: #### L IPID, ADIFF, ANEU, CMP, CBC, GFR #### [place] [address] [place], [place] [address] U Ratio Alb/Cre 21 mcg/mg Normal 0-30 [facility] ([place] Comment on above: Performed By: #### L IPID, ADIFF, ANEU, CMP, CBC, GFR #### [place] [id number] [place], [place] [address] XR ANKLE AND FOOT 6 VIEWS [facility] 06-30-2023 XR ANKLE AND FOOT 6 [...] 06/30/2023 4:00:26 PM Ordering Provider: VICENTEALFONZO MC [facility] [place] X[place] KNEE 1 OR 2 VIEWS LEFTon [...] 06/30/2023 4:01:46 PM Ordering Provider: VICENTE [facility] ([place]) .Auto Diffon 02-05-2023 Basophil, Absolute 0.1 10 3/mcL Normal 0.0-0.2 [facility]) Comment on above: Performed By: #### L IPID, ADIFF, ANEU, CMP, CBC, GFR #### [address] [address] Basophils/100 WBC (Bld) 0.7 % Normal 0.0-2.5 A [facility] ([place] Comment on above: Performed By: #### L IPID, ADIFF, ANEU, CMP, CBC, GFR #### [place] [id number] [place], [place] [address] Eosinophil, Absolute 0.7 10 3/mcL High 0.0-0.4 [facility] [place] Comment [place]: Performed By: #### L IPID, ADIFF, ANEU, CMP, CBC, GFR #### [address] [address] Eosinophils/100 WBC (Bld) 8.8 % High 0.0-7.0 [facility] ([place] Comment on above: Performed By: #### L IPID, ADIFF, ANEU, CMP, CBC, GFR #### [address] [address] Lymphocyte, Absolute 2.8 10 3/mcL Normal 0.8-3.9 [facility] [place] Comment [place] above: Performed By: #### L IPID, ADIFF, ANEU, CMP, CBC, GFR #### [address] [address] Lymphocytes/100 WBC (Bld) 34.0 % Normal 10.0-50.0 [facility] ([place] Comment on above: Performed By: #### L IPID, ADIFF, ANEU, CMP, CBC, GFR #### [address] [address] Monocyte, Absolute 0.6 10 3/mcL Normal 0.2-1.0 [facility] ([place] Comment on above: Performed By: #### L IPID, ADIFF, ANEU, CMP, CBC, GFR #### [address] [address] Monocytes/100 WBC (Bld) 7.3 % Normal 1.7-13.0 A [facility] ([place] Comment on above: Performed By: #### L IPID, ADIFF, ANEU, CMP, CBC, GFR #### [address] [address] Neutrophils/100 WBC (Bld) 49.2 % Normal 37.0-80.0 [facility] ([place] Comment on above: Performed By: #### L IPID, ADIFF, ANEU, CMP, CBC, GFR #### [address] [address] .GFRon 02-05-2023 GFR Non- 63 ml/min/1.73sqm Normal [facility] ([place] Comment on above: Result Comment: GFR Population [...] IPID, ADIFF, ANEU, CMP, CBC, GFR #### [address] [address] GFR 76 ml/min/1.73sqm Normal [facility] ([place] Comment on above: Result Comment: GFR Population [...] IPID, ADIFF, ANEU, CMP, CBC, GFR #### [address] [address] .NEUABSon 02-05-2023 Neutrophil, Absolute 4.1 10 3/mcL Normal 2.9-6.2 [facility] [place] Comment on [place]: Performed By: #### L IPID, ADIFF, ANEU, CMP, CBC, GFR #### [address] [address] CBCon 02-05-2023 Erythrocyte distribution width (RBC) [Ratio] 14.1 % Normal 11.5-14.5 [facility] ([place] Comment on above: Performed By: #### L IPID, ADIFF, ANEU, CMP, CBC, GFR #### [place] [address] Hematocrit (Bld) [Volume fraction] 45.2 % Normal 37.0-47.0 [facility] ([place] Comment on above: Performed By: #### L IPID, ADIFF, ANEU, CMP, CBC, GFR #### [place] [address] Hgb 14.4 G/dL Normal 12.0-16.0 [facility] ([place] Comment on above: Performed By: #### L IPID, ADIFF, ANEU, CMP, CBC, GFR #### [place] [address] MCH (RBC) [Entitic mass] 26.9 pg Low 27.0-31.2 [facility] ([place] Comment on above: Performed By: #### L IPID, ADIFF, ANEU, CMP, CBC, GFR #### [place] [address] MCHC 31.8 G/dL Low 33.0-37.0 [facility] ([place] Comment on above: Performed By: #### L IPID, ADIFF, ANEU, CMP, CBC, GFR #### [place] [address] MCV (RBC) [Entitic vol] 84.7 fL Normal 80.0-94.0 A [facility] ([place] Comment on above: Performed By: #### L IPID, ADIFF, ANEU, CMP, CBC, GFR #### [place] [address] Platelet 237 10 3/mcL Normal 130-400 [facility] ([place] Comment on above: Performed By: #### L IPID, ADIFF, ANEU, CMP, CBC, GFR #### [place] [address] Platelet mean volume (Bld) [Entitic vol] 6.5 fL Low 7.4-10.4 [facility] ([place] Comment on above: Performed By: #### L IPID, ADIFF, ANEU, CMP, CBC, GFR #### [address] [address] RBC 5.34 10 6/mcL Normal 4.20-5.40 [facility] ([place] Comment on above: Performed By: #### L IPID, ADIFF, ANEU, CMP, CBC, GFR #### [address] [address] WBC 8.3 10 3/mcL Normal 4.6-10.8 [facility] ([place] Comment on above: Performed By: #### L IPID, ADIFF, ANEU, CMP, CBC, GFR #### [address] [address] CMPon 02-05-2023 Albumin Level 3.9 G/dL Normal 3.4-4.8 [facility] ([place]) Comment on above: Performed By: #### L IPID, ADIFF, ANEU, CMP, CBC, GFR #### [place] [address] Albumin/Globulin [Mass ratio] 1.3 {ratio} Normal 1.1-2.5 [facility] ([place]) Comment on above: Performed By: #### L IPID, ADIFF, ANEU, CMP, CBC, GFR #### [address] [address] ALP [Catalytic activity/Vol] 65 U/L Normal 40-135 [facility] ([place]) Comment on above: Performed By: #### L IPID, ADIFF, ANEU, CMP, CBC, GFR #### [address] [address] ALT [Catalytic activity/Vol] 20 U/L Normal 14-59 [facility] ([place]) Comment on above: Performed By: #### L IPID, ADIFF, ANEU, CMP, CBC, GFR #### [address] [address] AST [Catalytic activity/Vol] 19 U/L Normal 10-40 [facility] ([place]) Comment on above: Performed By: #### L IPID, ADIFF, ANEU, CMP, CBC, GFR #### [address] [address] Bili Total 0.7 mg/dL Normal 0.2-1.0 [facility] ([place]) Comment on above: Result Comment: Use of this assay is not recommended for patients undergoing treatment with eltrombopag due to the potential for falsely elevated results. Performed By: #### L IPID, ADIFF, ANEU, CMP, CBC, GFR #### [address] [address] BUN/Creatinine Ratio 14 ratio Normal 7-27 [facility] ([place] Comment on above: Performed By: #### L IPID, ADIFF, ANEU, CMP, CBC, GFR #### [address] [address] Calcium [Mass/Vol] 10.1 mg/dL Normal 8.4-10.2 [facility] ([place]) Comment on above: Performed By: #### L IPID, ADIFF, ANEU, CMP, CBC, GFR #### [address] [address] Chloride [Moles/Vol] 100 mmol/L Normal 98-107 [facility] ([place] Comment on above: Performed By: #### L IPID, ADIFF, ANEU, CMP, CBC, GFR #### [address] [address] CO2 [Moles/Vol] 33 mmol/L High 23-31 [facility] ([place]) Comment on above: Performed By: #### L IPID, ADIFF, ANEU, CMP, CBC, GFR #### [address] [address] Creatinine [Mass/Vol] 0.87 mg/dL Normal 0.55-1.02 [facility] ([place]) Comment on above: Performed By: #### L IPID, ADIFF, ANEU, CMP, CBC, GFR #### [address] [address] Electrolyte Balance 8.0 mEq/L Normal 4.0-15.0 [facility] ([place]) Comment on above: Performed By: #### L IPID, ADIFF, ANEU, CMP, CBC, GFR #### [address] [address] Globulin 3.0 G/dL Normal [facility] ([place]) Comment on above: Performed By: #### L IPID, ADIFF, ANEU, CMP, CBC, GFR #### [address] [address] Glucose [Mass/Vol] 127 mg/dL High 83-110 [facility] ([place]) Comment on above: Performed By: #### L IPID, ADIFF, ANEU, CMP, CBC, GFR #### [address] [address] Potassium [Moles/Vol] 4.7 mmol/L Normal 3.5-5.1 [facility] ([place]) Comment on above: Performed By: #### L IPID, ADIFF, ANEU, CMP, CBC, GFR #### [address] [address] Sodium [Moles/Vol] 141 mmol/L Normal 136-145 [facility] ([place]) Comment on above: Performed By: #### L IPID, ADIFF, ANEU, CMP, CBC, GFR #### [address] [address] Total Protein 6.9 G/dL Normal 6.4-8.2 [facility] ([place]) Comment on above: Performed By: #### L IPID, ADIFF, ANEU, CMP, CBC, GFR #### [address] [address] Urea nitrogen [Mass/Vol] 12 mg/dL Normal 7-18 [facility] ([place]) Comment on above: Performed By: #### L IPID, ADIFF, ANEU, CMP, CBC, GFR #### [id number] [place], [place] [address] LABORATORYOrdered By: SYSTEM SYSTEM on 02-05-2023 Albumin [...] 02-05-2023 Cholesterol [Mass/Vol] 147 mg/dL Normal 0-200 [facility] ([place] Comment on above: Result Comment: Chol esterol Reference Interval: Less than 200 Desirable 200-239 Borderline high risk 240 and above High risk Performed By: #### L IPID, ADIFF, ANEU, CMP, CBC, GFR #### [id number] [place], [place] [address] Cholesterol in HDL [Mass/Vol] 59 mg/dL Normal 40-60 [facility] ([place]) Comment on above: Performed By: #### L IPID, ADIFF, ANEU, CMP, CBC, GFR #### [facility] [address] [place], [place] [address] Cholesterol in LDL [Mass/Vol] 54 mg/dL Normal 0-130 [facility] ([place]) Comment on above: Performed By: #### L IPID, ADIFF, ANEU, CMP, CBC, GFR #### [facility] [address] [place], [place] [address] Triglyceride [Mass/Vol] 172 mg/dL High 0-150 [facility] ([place]) Comment on above: Result Comment: Trig lyceride Reference Interval: Less than 150 Normal 150-199 Borderline high risk 200-499 High risk 500 or higher Very high risk Performed By: #### L IPID, ADIFF, ANEU, CMP, CBC, GFR #### [address] [place] [address] LABORATORYOrdered By: Karli Benites on 01-29-2022 Albumin [...] Facility 02-06-2024 20:00-0400 Body temperature 98 [degF] [facility] 02-06-2024 20:00-0400 Diastolic blood pressure 73 mm[Hg] [facility] 02-06-2024 20:00-0400 Heart rate 68 /min [facility] 02-06-2024 20:00-0400 Respiratory rate 18 /min [facility] 02-06-2024 20:00-0400 SaO2% (BldA) [Mass fraction] 97 % [facility] 02-06-2024 20:00-0400 Systolic blood pressure 173 mm[Hg] [facility] 02-06-2024 15:49-0400 Body height 175.26 cm [facility] 02-06-2024 15:49-0400 Body mass index (BMI) [Ratio] 38.9 kg/m2 [facility] 02-06-2024 15:49-0400 Body weight 119.74 kg [facility] 12-09-2023 10:13-0500 Body weight 120.2 kg Tete FITZGERALD Work Phone: [facility] 12-09-2023 10:13-0500 Diastolic blood pressure 66 mm[Hg] Tete FITZGERALD Work Phone: [facility] 12-09-2023 10:13-0500 Heart rate 69 /min Tete FITZGERALD Work Phone: [facility] 12-09-2023 10:13-0500 Systolic blood pressure 190 mm[Hg] Tete FITZGERALD Work Phone: [facility] 07-16-2023 10:53-0400 Body height 167.64 cm TONE Brewer NP Work Phone: [facility] 07-16-2023 10:53-0400 Body mass index (BMI) [Ratio] 45.8 kg/m2 CHILD NUTRITION DIRECTOR-C Laci Beltranwinnie CHILD NUTRITION DIRECTOR Work Phone: [facility] 07-16-2023 10:53-0400 Body weight 128.82 kg CHILD NUTRITION DIRECTOR-C Laci Osman CHILD NUTRITION DIRECTOR Work Phone: [facility] 07-04-2023 19:10-0400 Body temperature 98.24 [degF] ROHAN CASPERER ENERGY ADVISOR-BIT TRIPOLER [facility] 07-04-2023 19:10-0400 Diastolic Blood Pressure Non-Invasive 46 1 ROHAN MCDOWELL ENERGY ADVISOR-BIT TRIPOLER [facility] 07-04-2023 19:10-0400 Heart rate 78 /min ROHAN MCDOWELL ENERGY ADVISOR-BIT TRIPOLER [facility] 07-04-2023 19:10-0400 Reason For Taking VItal Signs ROHAN MCDOWELL ENERGY ADVISOR-BIT TRIPOLER [facility] 07-04-2023 19:10-0400 Respiratory rate 18 /min ROHAN JULY ENERGY ADVISOR-BIT TRIPOLER [facility] 07-04-2023 19:10-0400 Systolic Blood Pressure Non-Invasive 142 1 ROHAN MCDOWELL ENERGY ADVISOR-BIT TRIPOLER [facility] 07-04-2023 16:39-0400 Diastolic Blood Pressure Non-Invasive 60 1 ROHAN CSAPERER ENERGY ADVISOR-BIT TRIPOLER [facility] 07-04-2023 16:39-0400 Systolic Blood Pressure Non-Invasive 158 1 ROHAN CASPERER ENERGY ADVISOR-BIT TRIPOLER [facility] 07-04-2023 16:22-0400 Body temperature 97.88 [degF] ROHAN CASPERER ENERGY ADVISOR-BIT TRIPOLER [facility] 07-04-2023 16:22-0400 Diastolic Blood Pressure Non-Invasive 121 1 ROHAN KAPPER ENERGY ADVISOR-BIT TRIPOLER [facility] 07-04-2023 16:22-0400 Heart rate 72 /min ROHAN KAPPER ENERGY ADVISOR-BIT TRIPOLER [facility] 07-04-2023 16:22-0400 Respiratory rate 20 /min ROHAN KAPPER ENERGY ADVISOR-BIT TRIPOLER [facility] 07-04-2023 16:22-0400 Systolic Blood Pressure Non-Invasive 152 1 ROHAN KAPPER ENERGY ADVISOR-BIT TRIPOLER [facility] 07-04-2023 12:17-0400 Body temperature 97.88 [degF] ROHAN KAPPER ENERGY ADVISOR-BIT TRIPOLER [facility] 07-04-2023 12:17-0400 Heart rate 72 /min ROHAN KAPPER ENERGY ADVISOR-BIT TRIPOLER [facility] 07-04-2023 12:17-0400 Respiratory rate 20 /min ROHAN KAPPER ENERGY ADVISOR-BIT TRIPOLER [facility] 07-04-2023 11:20-0400 Heart rate 74 /min ROHAN KAPPER ENERGY ADVISOR-BIT TRIPOLER [facility] 07-04-2023 07:54-0400 Heart rate 74 /min ROHAN KAPPER ENERGY ADVISOR-BIT TRIPOLER [facility] 07-04-2023 04:11-0400 Heart rate 82 /min ROHAN KAPPER ENERGY ADVISOR-BIT TRIPOLER [facility] 07-04-2023 04:11-0400 Reason For Taking VItal Signs ROHAN KAPPER ENERGY ADVISOR-BIT TRIPOLER [facility] 07-03-2023 23:30-0400 Reason For Taking VItal Signs ROHAN KAPPER ENERGY ADVISOR-BIT TRIPOLER [facility] 07-03-2023 03:07-0400 Heart rate 78 /min ROHAN KAPPER ENERGY ADVISOR-BIT TRIPOLER [facility] 07-02-2023 22:59-0400 Heart rate 82 /min ROHAN KAPPER ENERGY ADVISOR-BIT TRIPOLER [facility] 06-30-2023 18:36-0400 Body height 160 cm ROHAN KAPPER ENERGY ADVISOR-BIT TRIPOLER [facility] 06-30-2023 18:36-0400 Body weight 128 kg ROHAN KAPPER ENERGY ADVISOR-BIT TRIPOLER [facility] 06-30-2023 18:36-0400 Body weight 50 kg/m2 ROHAN KAPPER ENERGY ADVISOR-BIT TRIPOLER [facility] 06-30-2023 15:17-0400 Blood Pressure Location ROHAN KAPPER ENERGY ADVISOR-BIT TRIPOLER [facility] 06-30-2023 15:17-0400 Blood Pressure Method ROHAN KAPPER ENERGY ADVISOR-BIT TRIPOLER [facility] Encounters Encounter Date Encounter Type Care Provider Facility Start: 03-02-2025 ambulatory Balwinder MARSHALL Facil ity:[facility] Start: 03-02-2025 Registered Referred Balwinder Alves MD [facility] Start: 02-07-2025 End: 02-07-2025 ambulatory Balwinder Alves MD [facility] Work Phone: Start: 02-07-2025 End: 02-07-2025 Departed Referred Balwinder Alves MD [facility] Start: 02-07-2025 End: 02-07-2025 ambulatory Balwinder MARSHALL Facility:[facility] Start: 01-23-2025 End: 01-23-2025 ambulatory Balwinder Alves MD [facility] Work Phone: Start: 01-23-2025 End: 01-23-2025 [facility] Start: 01-23-2025 End: 01-23-2025 ambulatory Balwinder Alves OLS Facility:[facility] Start: 01-09-2025 End: 01-09-2025 ambulatory Balwinder Alves MD [facility] Work Phone: Start: 01-09-2025 End: 01-09-[address] Bal[facility]inder [facility]ves [facility] Start: 01-09-2025 End: 01-09-2025 ambulatory Balwinder Alves Facility:[facility] Start: 01-02-2025 End: 01-02-2025 ambulatory Balwinder Alves MD [facility] Work Phone: Start: 01-02-2025 End: 01-02-2025 [facility] Start: 01-02-2025 Registered Referred Balwinder Fontanez [facility] Start: 01-02-2025 End: 01-02-2025 ambulatory Balwinder MARSHALL Facility:[facility] Start: 12-26-2024 End: 12-26-2024 ambulatory Balwinder Alves MD [facility] Work Phone: Start: 12-26-2024 End: 12-26-2024 [facility] Start: 12-26-2024 Registered Referred Balwinder Alves MD [facility] Start: 12-26-2024 End: 12-26-2024 ambulatory Balwinder MARSHALL Facility:[facility] Start: 12-16-2024 End: 12-16-2024 ambulatory Balwinder Alves MD [facility] Work Phone: Start: 12-16-2024 End: 12-16-2024 [facility] Start: 12-16-2024 Registered Referred Balwinder Fontanez [facility] Start: 12-16-2024 End: 12-16-2024 ambulatory Balwinder MARSHALL Facility:[facility] Start: 12-14-2024 End: 12-14-2024 ambulatory Balwinder Alves MD [facility] Work Phone: Start: 12-14-2024 End: 12-14-2024 [facility] Start: 12-14-2024 End: 12-14-2024 ambulatory Balwinder MARSHALL Facility:[facility] Start: 10-10-2024 ambulatory Balwinder MARSHALL Facil ity:[facility] Start: 10-10-2024 Registered Referred Balwinder Alves MD [facility] Start: 09-14-2024 End: 09-14-2024 Departed [facility] Start: 09-14-2024 End: 09-14-2024 ambulatory Balwinder MARSHALL Facility:[facility] Start: 06-14-2024 End: 06-14-2024 ambulatory Balwinder MARSHALL Facility:[facility] Start: 05-29-2024 End: 05-29-2024 ambulatory Balwinder Alves Facility:[facility] Start: 05-06-2024 End: 05-06-2024 ambulatory Balwinder MARSHALL Facility:[facility] Start: 03-25-2024 End: 03-25-2024 ambulatory Balwinder MARSHALL Facility:[facility] Start: 03-14-2024 End: 03-14-2024 ambulatory Balwinder MARSHALL Facility:[facility] Start: 02-06-2024 End: 02-06-2024 Emergency department patient visit [facility] Work Phone: Start: 12-14-2023 End: 12-14-2023 ambulatory [facility] Work Phone: Start: 12-14-2023 End: 12-14-2023 Departed Referred [facility] Start: 12-09-2023 End: 12-09-2023 ambulatory TETE TREVINO [facility] Start: 12-09-2023 End: 12-09-2023 Office outpatient visit 15 minutes Tete FITZGERALD Work Phone: [facility] Comment on above: Closed fracture of d istal end of left fibula, unspecified fracture morphology, initial encounter (Primary Dx) Start: 11-16-2023 Orders Only Tete FITZGERALD Work Phone: [facility] Comment on above: Closed fracture of d istal end of left fibula, unspecified fracture morphology, initial encounter (Primary Dx) Start: 10-14-2023 End: 10-14-2023 [facility] Start: 10-14-2023 End: 10-14-2023 Office outpatient visit 15 minutes Tete FITZGERALD Work Phone: [facility] Comment on above: Closed fracture of d istal end of left fibula, unspecified fracture morphology, initial encounter; Acute left ankle pain Start: 10-09-2023 Orders Only Tete FITZGERALD Work Phone: [facility] Comment on above: Closed fracture of l eft ankle, initial encounter (Primary Dx) Start: 09-23-2023 End: 09-23-2023 ambulatory CHILD NUTRITION DIRECTOR-C Laci Brewer CHILD NUTRITION DIRECTOR Work Phone: [facility] Work Phone: Start: 09-23-2023 End: 09-23-2023 Departed Referred CHILD NUTRITION DIRECTOR-C Laci Brewer CHILD NUTRITION DIRECTOR Work Phone: [facility] Start: 09-14-2023 End: 09-14-2023 ambulatory CHILD NUTRITION DIRECTOR-C Laci Baltes CHILD NUTRITION DIRECTOR Work Phone: [facility] Work Phone: Start: 09-14-2023 End: 09-14-2023 Departed Referred CHILD NUTRITION DIRECTOR-C Laci Beltrantes CHILD NUTRITION DIRECTOR Work Phone: [facility] Start: 07-17-2023 Telephone encounter Zander Ureña MD Work Phone: [facility] Comment on above: Other (Appt ) Start: 07-16-2023 End: 07-16-2023 Patient encounter procedure CHILD NUTRITION DIRECTOR-C Laci Beltranwinnie CHILD NUTRITION DIRECTOR Work Phone: [facility] Work Phone: Start: 06-30-2023 End: 07-05-2023 ambulatory LACI OSMAN ENERGY ADVISOR-BIT TRIPOLER Facility:B Start: 06-30-2023 End: 07-04-2023 ambulatory ROHAN Romero JULY ENERGY ADVISOR-BIT TRIPOLER Facility:B Start: 06-30-2023 End: 07-04-2023 Observation ROHAN M JULY ENERGY ADVISOR-BIT TRIPOLER [facility] Start: 02-05-2023 End: 02-06-2023 ambulatory LACI OSMAN ENERGY ADVISOR-BIT TRIPOLER Facility:B Start: 02-05-2023 End: 02-05-2023 Patient encounter procedure LACI OSMAN ENERGY ADVISOR-BIT TRIPOLER [facility] Start: 01-29-2022 End: 01-29-2022 Patient encounter procedure LACI BREWER ENERGY ADVISOR-BIT TRIPOLER [facility] Start: 07-17-2021 End: 07-17-2021 Patient encounter procedure LACI BREWER ENERGY ADVISOR-BIT TRIPOLER [facility] Procedures Date Procedure Procedure Detail [...] [place] Start: 09-23-2023 Clostridium difficil e detection CHILD NUTRITION DIRECTOR-C Laci Beltranwinnie CHILD NUTRITION DIRECTOR Work Phone: Start: 07-16-2023 Radiography of ankle CHILD NUTRITION DIRECTOR -C Laci Brewer CHILD NUTRITION DIRECTOR Work Phone: Start: 04-04-2023 Extraction of cataract ROHAN MCDOWELL ENERGY ADVISOR-BIT TRIPOLER Comment on above: Left side Start: 02-09-2020 Ophthalmic examinati on and evaluation LACI BREWER ENERGY ADVISOR-BIT TRIPOLER Comment on above: No retinopathy; WE Start: 03-22-2007 Arthroplasty of knee RY AN BALTES ENERGY ADVISOR-BIT TRIPOLER Comment on above: BILATERAL Start: 03-05-2007 Arthroplasty of knee RY AN BALTES ENERGY ADVISOR-BIT TRIPOLER Start: 10-05-1968 section LACI GUERRA ENERGY ADVISOR-BIT TRIPOLER Cataract (disorder) LACI ROWAN ENERGY ADVISOR-BIT TRIPOLER Comment on above: Right eye Cholecystectomy LACI BREWER ENERGY ADVISOR-BIT TRIPOLER Hysterectomy LACI BREWER APR N-BIT TRIPOLER Miscellaneous (quali fier value) ROHAN JULY ENERGY ADVISOR-BIT TRIPOLER Comment on above: brain drains from br ain bleed 2013 Renal lithotripsy LACI Ramesh ENERGY ADVISOR-BIT TRIPOLER Sling, device (physi shauna object) LACI BREWER ENERGY ADVISOR-BIT TRIPOLER Comment on above: Bladder H/o cystocele Tonsillectomy LACI BREWER AP RN-BIT TRIPOLER Comment on above: as a teenager Plan of Treatment Date Care Activity Detail Author Start: 06-24-2026 DTaP/Tdap/Td Vaccine s (2 - Td or Tdap) DTaP/Tdap/Td Vaccines (2 - Td or Tdap) [facility] Start: 01-23-2025 [facility] Start: 01-23-2025 Bacteria identified in Urine by Culture Urine [facility] Start: 01-09-2025 Urine culture Urine [facility] Start: 01-09-2025 [facility] Start: 01-02-2025 [facility] Start: 01-02-2025 Bacteria identified in Urine by Culture Urine Culture [facility] Start: 01-02-2025 Urine culture [facility] Start: 02-06-2024 [facility] Start: 11-25-2023 End: 11-16-2024 XR Ankle - left 3 Views XR ankle 3+ views left Imaging Routine Closed fracture of distal end of left fibula, unspecified fracture morphology, initial encounter Expected: 11/25/2023, Expires: 11/16/2024 [facility] Work Phone: Comment on above: Expected: 11/25/2023 , Expires: 11/16/2024 Start: 11-25-2023 End: 11-25-2023 Patient encounter procedure 11/25/2023 10:30 AM EST Office Visit [facility] [address] [place] [address] [place] [phone] Tete Trevino PA [address] [facility] [address] [place] [address] [facility] Start: 10-14-2023 End: 10-09-2024 XR Ankle - left 3 Views XR ankle 3+ views left Imaging Routine Closed fracture of left ankle, initial encounter Expected: 10/14/2023, Expires: 10/09/2024 [facility] Work Phone: Comment on above: Expected: 10/14/2023 , Expires: 10/09/2024 Start: 10-14-2023 End: 10-14-2023 Patient encounter procedure 10/14/2023 10:00 AM EST Office Visit [facility] [address] [facility] [address] [place] [address] Tete Trevino PA [address] [facility] [address] [place] [address] [facility] Start: 10-05-2023 Medicare Advantage Annual Wellness Visit Medicare Advantage Annual Wellness Visit [facility] Start: 06-05-2023 COVID-19 Vaccine ( season) COVID-19 Vaccine ( season) [facility] Start: 06-05-2023 COVID-19 Vaccine ( season) COVID-19 Vaccine ( season) [facility] Start: 06-05-2023 Influenza vaccination Influenza Vacc ine (#1) [facility] Start: 06-03-2021 Zoster Vaccines (3 o f 3) Zoster Vaccines (3 of 3) [facility] Start: 2008 Pneumococcal Vaccine : 65+ Years (1 - PCV) Pneumococcal Vaccine: 65+ Years (1 - PCV) [facility] Start: 2003 RSV Immunization age d 60 or older (1 - 1-dose 60+ series) RSV Immunization aged 60 or older (1 - 1-dose 60+ series) [facility] Start: 1993 Zoster Vaccines (1 o f 2) Zoster Vaccines (1 of 2) [facility] Start: 1962 DTaP/Tdap/Td Vaccine s (1 - Tdap) DTaP/Tdap/Td Vaccines (1 - Tdap) [facility] Start: 1955 Depression Screening Depression Scre ening [facility] Start: 1943 COVID-19 Vaccine (#1) COVID-19 Vacci ne (#1) [facility] Start: 1943 Medicare Advantage Annual Wellness Visit (AWV) Medicare Advantage Annual Wellness Visit (AWV) [facility] Start: 1943 Screening for osteoporosis Bone Density Scan [facility] Patient Education ED Abscess Inc ision And Drainage ED Wound Care After Packing ... [facility] Work Phone: Patient referral [facility] Work Phone: Urine culture [facility] Immunizations Immunization Date Immunization Notes Care Provider Fa keya 07-03-2022 influenza virus vacc ine, unspecified formulation LACI BREWER ENERGY ADVISOR-BIT TRIPOLER [facility] 01-14-2022 SARS-CoV-2 mRNA (bvjiszpxqaw-yliv-pgymnt e) vaccine LACI BREWER ENERGY ADVISOR-BIT TRIPOLER [facility] 06-14-2021 influenza virus vacc ine, unspecified formulation LACI BREWER ENERGY ADVISOR-BIT TRIPOLER [facility] 04-08-2021 zoster vaccine recombinant LACI BREWER ENERGY ADVISOR-BIT TRIPOLER [facility] 01-01-2021 SARS-CoV-2 (COVID-19 ) mRNA BNT-162b2 vax LACI BREWER ENERGY ADVISOR-BIT TRIPOLER [facility] 12-10-2020 SARS-CoV-2 (COVID-19 ) mRNA BNT-162b2 vax LACI BREWER ENERGY ADVISOR-BIT TRIPOLER [facility] Comment on above: Result Comment: 2020: [id number] 05-06-2020 influenza virus vacc ine, unspecified formulation LACI BREWER ENERGY ADVISOR-BIT TRIPOLER [facility] 05-06-2020 pneumococcal conjuga te vaccine, 13 valent LACI BREWER ENERGY ADVISOR-BIT TRIPOLER [facility] 07-06-2019 influenza virus vacc ine, unspecified formulation LACI BREWER ENERGY ADVISOR-BIT TRIPOLER [facility] 09-03-2018 influenza virus vacc ine, unspecified formulation LACI BREWER ENERGY ADVISOR-BIT TRIPOLER [facility] 08-05-2018 influenza virus vacc ine, unspecified formulation LACI BREWER ENERGY ADVISOR-BIT TRIPOLER [facility] 07-04-2018 influenza virus vacc ine, unspecified formulation LACI BREWER ENERGY ADVISOR-BIT TRIPOLER [facility] 06-04-2018 influenza virus vacc ine, unspecified formulation LACI BREWER ENERGY ADVISOR-BIT TRIPOLER [facility] 06-23-2017 influenza virus vacc ine, unspecified formulation LACI BREWER ENERGY ADVISOR-BIT TRIPOLER [facility] 06-10-2017 influenza virus vacc ine, unspecified formulation LACI BREWER ENERGY ADVISOR-BIT TRIPOLER [facility] 06-24-2016 influenza virus vacc ine, unspecified formulation LACI BREWER ENERGY ADVISOR-BIT TRIPOLER [facility] 06-24-2016 tetanus toxoid, redu chivo diphtheria toxoid, and acellular pertussis vaccine, adsorbed LACI BREWER ENERGY ADVISOR-BIT TRIPOLER [facility] 07-17-2015 pneumococcal conjuga te vaccine, 13 valent LACI BREWER ENERGY ADVISOR-BIT TRIPOLER [facility] 06-19-2015 influenza virus vacc ine, unspecified formulation LACI BREWER ENERGY ADVISOR-BIT TRIPOLER [facility] 09-06-2014 influenza virus vacc ine, unspecified formulation LACI BREWER ENERGY ADVISOR-BIT TRIPOLER [facility] 06-08-2013 pneumococcal polysaccharide vaccine, 23 valent LACI BREWER ENERGY ADVISOR-BIT TRIPOLER [facility] 09-01-2012 influenza virus vacc ine, unspecified formulation LACI BREWER ENERGY ADVISOR-BIT TRIPOLER [facility] 05-28-2012 zoster vaccine, live LACI KOREY KUNAL ENERGY ADVISOR-BIT TRIPOLER [facility] Payers Date Payer Category Payer Medicaid [id number] 2024 Self-pay [id number] 2023 Medicare [employer] [id number] 2023-Present [phone] [address] [place] [address] Medicare HMO [id number] 2023 Medicare [id number] 2023 Unknown [id number] 1943 Unknown [id number] 1943 Unknown [id number] 1943 Unknown [id number] Medicare MEDICARE PART A B [id number] Unknown [id number] Unknown [id number] [id number] Unknown [id number] [id number] Unknown [id number] [id number] Unknown [id number] [id number] Unknown [id number] Unknown [id number] [id number] Unknown [id number] [id number] Unknown [id number] [id number] Unknown [id number] [id number] Unknown [id number] Unknown [id number] Unknown [id number] Unknown [id number] Unknown [id number] Social History Date Type Detail Facility Start: 04-06-2019 End: 02-06-2024 Ex-smoker (finding) [facility] Comment on above: Quit in 2014, not ar ound cigarette smoke Start: 1945 Sex Assigned At Female A [facility] Start: 07-16-2023 End: 02-06-2024 Tobacco smoking status HIIS Tobacco smoking consumption unknown [facility] Start: 1945 Sex Assigned At Not on file [facility] Start: 10-14-2023 End: 12-09-2023 Gender identity Not on file [facility] Start: 10-14-2023 Tobacco smoking stat us [facility] Never smoked tobacco [facility] Start: 10-14-2023 Tobacco use and exposure Smokeless tobacco non-user [facility] Start: 10-14-2023 End: 12-09-2023 History of Social function [facility] Start: 01-04-2025 End: 01-24-2025 Sex Female (finding) [facility] Medical Equipment Procedure Code Equipment Code Equipment Origin al Text Equipment Identifier Dates BD UF SHORT PEN NEEDLE [id number] Start: 08-29-[address] Strips Start: 10-16-2020 Lancets Start: 04-23-2021 BD UF SHORT PEN NEEDLE [id number], 0 Refill(s), 141.8 Start: 08-29-2020 See Instructions , EA=BOX of 100 2x daily testing once touch untra blue dx: diabetes, # 6 EA, 3 Refill(s), Pharmacy: [id number], Diabetes, 166.37, cm, 07/24/21 11:31:00 EDT, Height, 134.5, kg, 07/24/21 11:31:00 EDT, Dosing Weight Start: 07-24-2021 See Instructions , EA=BOX OF 100 ONETOUCH DELICA LANCETS FINE, 33 GA TO TEST BID Diabetes R11.9, # 6 EA, 3 Refill(s), [id number], Diabetes, 166.37, cm, 07/24/21 11:31:00 EDT, Height, 134.5, kg, 07/24/21 11:31:00 EDT, Dosing Weight Start: 07-24-2021 See Instructions , Using Twice Daily. ONE BOX OF 100. BD UF 8mm 31 G (short) qs 3 month supply Diabetes Mellitus E11.9, # 2 EA, 0 Refill(s), Pharmacy: [id number], 167.6, cm, 11/05/21 9:58:00 EST, Height, 135.4, kg, 11/05/21 9:58:00 EST, Dosing... Start: 12-20-2021 See Instructions , EA=BOX of 100 2x daily testing once touch untra blue dx: diabetes, # 6 EA, 3 Refill(s), Pharmacy: [id number], Diabetes, 167.6, cm, 05/20/22 12:08:00 EDT, Height, 134.9, kg, 05/20/22 11:59:00 EDT, Dosing Weight Start: 08-05-2022 See Instructions , EA=BOX OF 100 ONETOUCH DELICA LANCETS FINE, 33 GA TO TEST BID Diabetes R11.9, # 6 EA, 3 Refill(s), Pharmacy: [id number], Diabetes, 167.6, cm, 08/19/22 12:13:00 EST, [...] diabetes, # 6 EA, 3 Refill(s), Pharmacy: [id number], Diabetes, 167.6, cm, 05/20/22 12:08:00 EDT, Height, 134.9, kg, 05/20/22 11:59:00 EDT, Dosing Weight Start: 08-05-2022 See Instructions , EA=BOX OF 100 ONETOUCH DELLEIF LANCETS FINE, 33 GA TO TEST BID Diabetes R11.9, # 6 EA, 3 Refill(s), Pharmacy: [id number], Diabetes, 167.6, cm, 08/19/22 12:13:00 EST, Height, 135.4, kg, 08/19/22 12:13:00 EST, Dosing Weight Start: 09-10-2022 See Instructions , EA=ONE BOX OF 100, BID BD UF 8mm 31 G (short) qs 3 month supply Diabetes Mellitus E11.9, # 2 EA, 3 Refill(s), [id number], 167.6, cm, 11/20/22 11:29:00 EST, Height, 134, kg, 11/20/22 11:29:00 EST, Dosing Weight Start: 11-20-2022 Functional Status Date Assessment Result Facility 07-04-2023 Functional Status Room check performed [facility] 07-04-2023 Functional Status right knee high applied /on [facility] 07-04-2023 Functional Status [facility] 07-04-2023 Functional Status [facility] 07-04-2023 Functional Status Demonstrates C orrect Call Light Use Yes [facility] 07-04-2023 Functional Status Done [facility] 07-04-2023 Functional Status [facility] 07-03-2023 Functional Status Positioning Repositions self [facility] 07-03-2023 Functional Status [facility] 07-03-2023 Functional Status [facility] 07-03-2023 Functional Status [facility] 07-03-2023 Functional Status [facility] 07-03-2023 Functional Status [facility] 07-02-2023 Functional Status [facility] 07-02-2023 Functional Status [facility] Functional Status [facility] 07-01-2023 Functional Status Single level home [facility] 07-01-2023 Functional Status [facility] 06-30-2023 Functional Status Sensory Deficits None [facility] 06-30-2023 Functional Status Activity Rosa tance Independent [facility] Mental Status Date Assessment Result Facility 07-04-2023 Mental Status Orientation Orie nted x 4, Follows simple commands [facility] 07-03-2023 Mental Status [facility] 07-03-2023 Mental Status [facility] 07-03-2023 Mental Status Orientation Asse ssment Oriented x 4 [facility] 07-02-2023 Mental Status [facility] 07-01-2023 Mental Status [facility] Clinical Notes 06-30-2023 to 02-06-2024 Note Date & Type Note Facility 02-06-2024 Discharge summary Note Date/Time February 06, 2024 4:09pm [facility] Medical Records Department [address] [place] [address] Emergency Department Summary 02/06/24 MR#: [id number] Acct: [id number] Name: GUMARO BUSTAMANTE Rep #:[id number] : 1945 78 From: Omid Montiel MD PCP: Dr. Balwinder Alves MD Status:REG ER Location: ED HPI History of Present Illness Chief Complaint: Wound Check Narrative Narrative: 78-year-old female past medical history of diabetes presents from long-term facility for right labia majora abscess. She [...] line because they want to start vancomycin. [facility] Medical History Brain bleed Cataract Closed fracture [...] on antibiotics orally. Disposition is discharged to [facility] in stable condition. History & Record [...] Provider] - 2 Days Laci Brewer NP, CHILD NUTRITION DIRECTOR-C [Non-Staff] - Activity Restrictions/Additional Instructions: Remove packing/have packing removed in 48 hours. Do not leave in longer. Continue vancomycin through your peripheral IV. Disposition Disposition: Intermediate Facility Discharge Location: [facility] What to do if you have Problems For any increased pain, shortness of breath, bleeding, nausea or vomiting, chestpain, or any unexpected problems, contact your Primary Care Provider. Call [facility] ([phone]) or report to the closest Emergency Room. Call 911 if necessary. 02/06/241801 <Electronically signed by Omid Montiel MD> Cosigner Signature (if applicable): CC: Dr. Balwinder Alves MD ~ Signed [facility] Work Phone: [phone]) 281-517603-06-2024 History of Present illness Narrative* LIA Champagne - 12/09/2023 10:30 AM EST Images from the original note were not included. [facility] [address] [place] [address] [address] [facility] [address] Dept: [phone] Dept Gumaro Bustamante 1945 [id number] 12/09/2023 HISTORY OF PRESENT ILLNESS: Gumaro returns [...] to improve. Electronically signed by LIA Champagne [facility] Department of Orthopedic surgery 12/09/2023 3:43 PM Voice recognition was used for portions of this note and although it was reviewed prior to signing some incorrect words or phrases could be present. documented in this [facility]01-10-2024 History of Present illness Narrative* ILA Champagne - 10/14/2023 10:00 AM EST Images from the original note were not included. [facility] [address] [place] [address] [place] [address] Dept: [phone] Dept Gumaro Bustamante 1945 [id number] 10/14/2023 HISTORY OF PRESENT ILLNESS: Gumaro returns for re-evaluation of her Left distal fibula fx DOI 07/02/23 Gumaor reports that her pain has been minimal [...] with Imaging. Electronically signed by LIA Champagne [facility] Department of Orthopedic surgery 10/14/2023 3:50 [...] seen in [place] or [place]. No wads [id number] Miscellaneous Notes* Telephone Encounter - Kimberly Capellan MA - 09/03/2023 8:53 AM EST Left distal fibula fx doi 07/02/23 she is in a boot. Can only be seen in [place] or [place]. No wads * Telephone Encounter - Sammie Lantigua - 09/02/2023 12:08 PM EST Gareth an RN at [facility] called [phone] ext 2008, he states that they just got Gumaro from [place] and they are looking for her to [...] Dr. Ureña on Thursday at 1pm in [facility] or 9am in [place] if not already double booked. documented in this [facility]11-29-2023 Telephone encounter Note* Telephone Encounter - Sammie Lantigua - 09/02/2023 12:08 PM EST Gareth an RN at [facility] called [phone] ext 2008, he states that they just got Gumaro from [place] and they are looking for her to [...] 2:30 today and then works again tomorrow. [id number] Miscellaneous Notes* Telephone Encounter - Sammie Lantigua - 09/02/2023 12:08 PM EST Gareth an RN at [facility] called [phone] ext 2008, he states that they just got Gumaro from [place] and they are looking for her to [...] Dr. Ureña on Thursday at 1pm in [facility] or 9am in [place] if not already double booked. documented in this [facility]10-13-2023 Telephone encounter Note* Telephone Encounter - Billy Araya MA - 07/17/2023 9:27 AM EDT LVM to schedule with Dr. Ureña on Thursday at 1pm in [facility] or 9am in [place] if not already double booked. [id number] Hospital Discharge instructions Patient Education 07/03/2023 14:56:59 Urinary Tract Infection, Adult, Dpkw-ss-Qyoi Urinary Tract Infection, Adult A urinary tract [...] Follow these instructions at home: Medicines Take uudc-rvg-rxxnrnl and prescription medicines only as told by [...] 03/09/2009 Document Revised: 09/08/2019 Document Reviewed: 03/31/2019 [employer] Patient Education [employer]. Follow Up Care 06/30/2023 15:11:52 With:LACI BREWER Address: [address] [place] [phone] When:3-5 days Comments:Please schedule a Follow up appt with your PCP after d/c. [facility] 09-29-2023 Note Discharge Instructions Thank you for allowing [facility] to assist you with your healthcare needs. The following is importantdischarge information regarding your hospital visit. Your Care Team Heather Hunt APRN Your Diagnosis Ankle pain-swelling Depression Fall Fibula fracture Hypertension Type 2 diabetes mellitus Urinary tract infection What to do next Scheduled Follow-Up Appointments Appointment Type [facility] 11:30 AM EST LACI BREWER [address] [phone] Follow Up Appointments Follow Up with LACI BREWER When Within 3-5 days Why: Please schedule a Follow up appt with your PCP after d/c. Where: [address] [place] [phone] The Following Activity and Diet Have Been [...] When Why Instructions Last Dose New acetaminophen-hydrocodone (Guy 325- 5 mg oral tablet) 1 tab(s) [...] Follow these instructions at home: Medicines Take uiuq-rbm-izkxapo and prescription medicines only as told by [...] 03/09/2009 Document Revised: 09/08/2019 Document Reviewed: 03/31/2019 [employer] Patient Education 2020 [employer] Additional Information VACCINATE! IT SAVES LIVES! Members of the community who have not yet received the COVID-19 vaccine and would like to receive it can visit one of [facility] vaccine clinics. There are many vaccine clinic locations within the State. For locations and available times, please visit [email or web address].[place].gov/. It is important to note that some COVID mobile vaccine clinics are held outdoors and may be canceled in rainy or stormy conditions. To learn more about pediatric vaccinations (ages 5-11), we invite you to visit the [facility] webpage. [email or web address] [email or web address] learn more about the COVID-19 vaccine, we invite you to visit the CDC website for a list of frequently asked questions.https://www.cdc.gov/coronavirus/2019-ncov/vaccines/faq.html Clinked Patient Portal Access Instructions: Stay connected with your healthcare team and access your personal medical information anytime with the Clinked Patient Portal. Please follow the directions below to create your Clinked account: 1.Access the email account you provided upon registration to the hospital/physician office.2.Look for an invitation email from [facility].3.Open the email and access the invitation link: AcceptInvitation to [facility].4.Fill in the required correa to create your account. To access your account, visit [email or web address]. Click the blue button labeled Access Patient [...] who you will allowto register on the [facility]ure Patient Portal for access to your information. You can also access the [facility] OneChart Patient Portal on the [employer] calos. Simply click on Patient Portal and then log into your account. If you would like to receive a full copy of your medical records, please contact the [facility] Medical Records Department by calling [phone], Thursday through Thursday between 8 a.m. and [...] Call your local pharmacy or go to http://[email or web address]/3J6Cz1f to find one close to you.3.Make use of household items: Use cat litter or old coffee grounds to dispose medications if other options arenot available. Mix your drugs with these household products, seal them in an airtight container andthrow it into the garbage. Call [facility]: [phone] to be sure your drugs can be [...] Patient Education Materials Urinary Tract Infection, Adult, Nckx-ki-Qsfi Medication Leaflets My discharge plan and instructions have been reviewed and explained to me and I,GUMARO BUSTAMANTE understand my current condition and have read and understand these discharge instructions. I have received a written copy of the plan/instructions. If I have questions, I am aware that I should contact my doctor. 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09-29-2023 Note Date of Service 07/03/2023 Chief Complaint Fibula fracture Subjective 78-year-old female with past medical history significant for HTN, HLD, type 2 diabetes mellitus, morbid obesity. Next Patient presented to [facility] emergency department on 06/30/2023 with left ankle [...] currently. Pain was not well controlled with Guy alone. Objective Vitals and Measurements T: 36.6 [...] Dr. Roberto, nonweightbearing status for 6 weeks. Guy for pain. Patient has a documented allergy [...] Time Spent 36 minutes was spent in pfva-vr-lams time and coordination of care for this patient, including but not limited to personally gathering history, examining the patient, reviewing labs and images and records, counseling patient and/or family about diagnosis and potential workup if applicable, as detailed above as well as discussing the case with patient's interdisciplinary team where applicable. Digitally Signed by HEATHER HUNT on 07/03/2023 01:33 PM [facility]09-28-2023 Note Date of Service 07/02/2023 Chief Complaint Fall Subjective 78-year-old female with past medical history significant for HTN, HLD, type 2 diabetes mellitus, morbid obesity. Next Patient presented to [facility] emergency department on 06/30/2023 with left ankle [...] Dr. Roberto, nonweightbearing status for 6 weeks. Guy for pain. Patient has a documented allergy [...] by HEATHER HUNT on 07/02/2023 04:17 PM [facility]09-28-2023 Note. MICRO - Microbiology PROCEDURE: Urine [...] Locations *1: This test was performed at: [facility], [address] [place] [address], [phone]- , Counts include 234 beds at the [facility] ([place])07-01-2023 Note Date of Service 07/01/2023 Chief Complaint [...] - holding off until seen by ortho. *office services manager consulted for discharge planning. *Continue [...] home medications, discussing plan of care with nursing,web content & social media manager, and therapy, examining patient, collaborating with physician, and documenting in chart. Digitally Signed by ROHAN MCDOWELL on 07/01/2023 04:17 PM [facility]09-26-2023 Note Date of Service 06/30/2023 Chief Complaint Patient fell at home and is complaining of left-sided ankle pain. History of Present Illness Patient is an 78-year-old female, who follows with Laci Brewer CNP with a past medical history significant for hypertension, hyperlipidemia, type 2 diabetes and morbid obesity, presented to [facility] emergency department with the chief complaint [...] to evaluate and treat. We will consult web content & social media manager for discharge planning. Check CBC and BMP [...] PT and OT to evaluate and treat. *office services manager consulted for discharge planning. 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 Appetite Good. Eating Difficulties None. Caffeine intake amount: Occ Coke. Two protein drink daily, it has caffeine of one cup of coffee., 08/19/2022 Substance Abuse Use: Never., 04/06/2019 Tobacco Tobacco Use: Former smoker, quit more than 30 days ago., 04/06/2019 Family History Arthritis: Sister. Asbestosis: Father. Cancer: Mother. Diabetes: Sister. Guillain [place] syndrome: Sister. Heart disease: Sister. Malignant neoplasm [...] by ROHAN MCDOWELL on 06/30/2023 04:51 PM [facility]09-26-2023 Note ORIGINAL EXAMINATION: 3 x-ray views [...] Sign Date: 06/30/2023 4:00:26 PM Ordering Provider: [address]26-2023 Note ORIGINAL EXAMINATION: TWO XRAY VIEWS [...] Sign Date: 06/30/2023 4:01:46 PM Ordering Provider: [address]26-2023 Evaluation + Plan noteExtracted from: Title:History and Physical Author:ROHAN MCDOWELL APRN-BIT TRIPOLER Date:06/30/23 1. Ankle pain-swelling Acute, s/p mechanical fall at home *X-ray of left ankle reveals fracture of distal fibula. *Consult Dr. Jose Roberto, orthopedics, for recommendation. *Patient is non weightbearing to left ankle. *Consult placed to PT and OT to evaluate and treat. *office services manager consulted for discharge planning. *Continue [...] Appointment Date:09/22/2023 11:30:00 AM Scheduled Provider:LACI BREWER Location:[facility] Appointment Type:PC OV [facility] evaluation + Plan note Future Appointments Appointment Date:07/24/2021 11:30:00 AM Scheduled Provider:LACI BREWER Location:[facility] Appointment Type: OV Future Scheduled Tests Laboratory* Vitamin D Level 01/22/21 * Vitamin D Level 11/06/20 [facility] Evaluation + Plan note Future Appointments Appointment Date:02/04/2022 11:00:00 AM Scheduled Provider:LACI BREWER Location:[facility] Appointment Type:PC OV Follow Up [facility] Evaluation + Plan note Future Appointments Appointment Date:02/10/2023 11:30:00 AM Scheduled Provider:LACI BREWER Location:[facility] Appointment Type:PC OV [facility] Evaluation note* Diagnosis Onset Date Resolution Status Closed fracture of left distal fibula acute Left ankle pain acute [facility] Work Phone: Evaluation note* Diagnosis Closed fracture of left ankle, initial encounter- Primary documented in this [facility] Diagnosis Closed fracture of distal end of left fibula, unspecified fracture morphology, initial encounter Acute left ankle pain documented in this encounter [facility]* Diagnosis Closed fracture of distal end of left fibula, unspecified fracture morphology, initial encounter- Primary documented in this encounter [facility] note* Diagnosis Closed fracture of distal end of left fibula, unspecified fracture morphology, initial encounter- Primary documented in this encounter [facility] noteNo assessment information availableWSt. Francis Hospital Work Phone: Hospital course Narrative No data available for this section [facility] Hospital Discharge instructions No data available for this section [facility] Hospital Discharge instructions Additional Instructions Remove packing/have packing removed in 48 hours. Do not leave in longer. Continue vancomycin through your peripheral IV.[facility] Work Phone: Progress note No data available for this section [facility] Reason for referral (narrative)No reason for referral information availableWSt. Francis Hospital Work Phone: Summary Purpose Family History No Family History Records Found Advance Directives No Advanced Directives Records Found Advance Directive Response Recorded Date/ Time Name of Medical Power of Letterset Press Set Up Operator casey laureano February 06, 2024 3:49pm Living Will Yes February 06, 2024 3: 49pm Power of Letterset Press Set Up Operator Yes February 06, 2024 3:49pm Chief Complaint and Reason for Visit Chief Complaint LEFT FIBULA Room 1 LABWORK Reason for Visit Closed fracture of l eft distal fibula Left ankle pain Chief Complaint LEFT FIBULA Room 1 LABWORK [facility] WORK Reason for Visit Closed fracture of l eft distal fibula Left ankle pain Chief Complaint LABWORK [facility] WORK [facility] WORK Chief Complaint SENIOR LIVING LAB WOR K wound Chief Complaint Admit Date [facility] WORK September 14 5:00am [facility] October 10, 2024 7:30pm [facility] WORK December 14, 2024 5 :00am LABWORK December 16, 2024 6:1 2am [facility] WORK January 02, 2025 7 :30pm Chief Complaint Admit Date SEN[facility] LIV[facility] LAB WORK September 14 5:00am [facility] WORK October 10, 2024 7:30pm [facility] WORK December 14, 2024 5 :00am LABWORK December 16, 2024 6:1 2am [facility] WORK January 02, 2025 7 :30pm LABWORK January 09, 2025 12:4 0pm Chief Complaint Admit Date SENIOR LIVING LAB WORK September 14 5:00am [facility] LAB WORK October 10, 2024 7:30pm SEN[facility]IV[facility] LAB WORK December 14, 2024 5 :00am LABWORK December 16, 2024 6:1 2am LABWORK December 26, 2024 7:0 8am [facility] WORK January 02, 2025 7 :30pm LABWORK January 09, 2025 12:4 0pm Chief Complaint Admit Date [facility] LAB WORK October 10, 2024 7:30pm [facility] WORK December 14, 2024 5 :00am LABWORK December 16, 2024 6:1 2am LABWORK December 26, 2024 7:0 8am [facility] WORK January 02, 2025 7 :30pm LABWORK January 09, 2025 12:4 0pm [facility] January 23, 2025 1 1:30pm Chief Complaint Admit Date [facility] December 14, 2024 5 :00am LABWORK December 16, 2024 6:1 2am LABWORK December 26, 2024 7:0 8am [facility] January 02, 2025 7 :30pm LABWORK January 09, 2025 12:4 0pm [facility] January 23, 2025 1 1:30pm [facility] February 07, 2025 3:30 am Reason for Referral Specialty Diagnoses / Procedures Referred By Contannita t Referred To Contact Physical Therapy Diagnoses Closed fracture of distal end of left fibula, unspecified fracture morphology, initial encounter Procedures LA OFFICE/OUTPATIENT NEW HIGH MDM 60 MINUTES Tete Trevino PA 1 [facility] [address] [place] [address] Referral ID Status Reason Start Date Expiration Date Visits Requested Visits Authorized [id number] Pending Review Eval and Treat 10/14/2023 04/11/2024 99 99 Additional Source Comments Care Team (unrecognized sect ion and content) Team Status: Active Member Role Status Dates Dr. Joaquin Thomas MD Family Provider Active Laci Brewer CHILD NUTRITION DIRECTOR, CHILD NUTRITION DIRECTOR-C Primary Care Provider Active Team Status: Inactive Member Role Status Dates Laci Brewer CHILD NUTRITION DIRECTOR, CHILD NUTRITION DIRECTOR-C Primary Care Provider, Referring Provider Active Prieto Meade MD Attending Provider Active Team Status: Inactive Member Role Status Dates Laci Brewer CHILD NUTRITION DIRECTOR, CHILD NUTRITION DIRECTOR-C Primary Care Provider Active Dr. Shlomo Umana MD Attending Provider Active Team Status: Inactive Member Role Status Dates Laci Brewer CHILD NUTRITION DIRECTOR, CHILD NUTRITION DIRECTOR-C Primary Care Provider Active Balwinder MARSHALL MD Attending Provider Active [employer] Blowing Machine Attendant Relationship Specialty Start Date End Date Balwinder Alves MD [address] [facility] [address] [place] [id number] PCP - General Family Medicine 10/14/23 [employer] Machine Attendant Relationship Specialty Start Date End Date Bawlinder Alves MD [address] [facility] [address] [place] [phone] PCP - General Family Medicine 10/14/23 [employer]ing Machine Attendant Relationship Specialty Start Date End Date Balwinder Alves MD [address] [facility] [address] [place] [phone] PCP - General Family Medicine 10/14/23 Team Status: Inactive Member Role Status Dates Laci Brewer CHILD NUTRITION DIRECTOR, CHILD NUTRITION DIRECTOR-C Primary Care Provider Active Balwinder MARSHALL MD [...] section and content) DATE CREATED AUTHOR 07/23/2023 [facility] ([place]) DATE CREATED AUTHOR AUTHOR'S ORGANIZ ATION 12/10/2023 [facility] DATE CREATED AUTHOR AUTHOR'S ORGANIZ ATION 03/11/2025 [facility] Reason for Visit (unrecogniz ed section [...] BE BASED ON THE PRIMARY CLINICAL RECORDS. [facility]. provides no warranty or guarantee of the accuracy or completeness of information in this document.
[2025-03-16 09:06] LABS: Hematocrit 35.7 % (37-47); Hemoglobin 10.9 g/dL (12.0-15.0); Mean Corp Hgb Conc 30.5 g/dL (32-36); Mean Corpuscular Hgb 28.8 pg (27.0-32.0); Mean Corpuscular Volume 94.4 fL (81-99); Mean Platelet Vol. 8.6 fl (6.2-12.0); Platelet Count 187 K/mm3 (150-450); RBC Distribution Width CV 15.1 % (11.6-14.6); RBC Distribution Width SD 51.7 fl (35.1-43.9); Red Blood Count 3.78 M/mm3 (4.2-5.4); White Blood Count 7.1 K/mm3 (4.4-11.0)
[2025-03-16 09:21] LABS: Anion Gap 11 (5-15); BUN 9 mg/dL (4-19); BUN/Creat Ratio 13.7 RATIO (10-20); Calcium,Total 9.6 mg/dL (7.6-11.0); Chloride 99 mmol/L (98-108); Creatinine, Serum 0.67 mg/dL (0.70-1.20); EST Glomerular Filtration Rate 87 (>60); Glucose 222 mg/dL (70-99); Potassium 4.3 mmol/L (3.3-5.1); Sodium Level 139 mmol/L (133-145)
== END ==
LOC: OLS.WCC 05:00
PROVIDERS: PCP Family Medicine; Visit Provider Family Medicine
DX: N39.0 Urinary tract infection, site not specified (principal); E11.9 Type 2 diabetes mellitus without complications; I10 Essential (primary) hypertension
CPT/HCPCS: 36415; 80048; 85027

== ENCOUNTER → 2025-03-31 | Outpatient (CLI) | payer MEDICARE, MEDICAID, SELFPAY ==
--- NOTE | 2025-03-31 08:00 | CT_ITS ---
PROCEDURE: ABDOMEN/PELVIS WITHOUT CONT 03/31/2025 REASON FOR EXAM: KIDNEY STONE TECHNIQUE: ABDOMEN/PELVIS WITHOUT CONT Noncontrast technique limits evaluation of the abdominal and pelvic viscera. Coronal and Sagittal reconstruction series were provided. One or more dose reduction techniques were used (e.g., Automated exposure control, adjustment of the mA and/or kV according to patient size, use of iterative reconstruction technique). RADIATION DOSE SUMMARY: CTDlvol: 23.05 mGy DLP: 1249.88 mGycm COMPARISON: None FINDINGS: Lung bases: Mild dependent atelectasis. Coronary artery calcification. Liver: Normal size. No obvious mass. Gallbladder: Several calcified gallstones. Spleen: Normal size. Pancreas: Normal size. No surrounding inflammation. Adrenals: Unremarkable Kidneys: There is a staghorn calculus in the mid lower pole of the right kidney with extension to the renal pelvis. This measures 2.4 cm Bladder: Unremarkable Reproductive Organs: Prior hysterectomy. Adnexal regions are unremarkable. Bowel: Colonic diverticulosis without diverticulitis. Appendix: The appendix is not identified. There is no inflammatory process identified in the right lower quadrant to suggest appendicitis. Lymph nodes: Unremarkable. Vasculature: Mild diffuse atherosclerotic calcifications are noted. Peritoneum / Retroperitoneum: Unremarkable Bones: Degenerative changes of the spine. CT/Abdomen/Pelvis without Cont IMPRESSION: Staghorn calculus in the right kidney. Sigmoid diverticulosis. Status post cholecystectomy. Reading Location: [id number]
== END | disposition home or self-care (01) ==
LOC: CT 07:52
PROVIDERS: PCP Family Medicine; Referring Provider Urology; Visit Provider Urology
DX: N20.0 Calculus of kidney (principal)
CPT/HCPCS: 74176

== ENCOUNTER → 2025-05-17 | Outpatient (CLI) | payer MEDICARE, MEDICAID, SELFPAY ==
--- NOTE | 2025-05-17 10:32 | RAD_ITS ---
PROCEDURE: ABDOMEN SINGLE VIEW 05/17/2025 REASON FOR EXAM: KIDNEY STONE TECHNIQUE: ABDOMEN SINGLE VIEW COMPARISON: CT 03/31/2025 FINDINGS: Clear lung bases. No free air. Nonspecific bowel-gas pattern. Lumbar spine scoliosis and degeneration. Status post cholecystectomy. There is a curvy linear shaped staghorn calculus overlying the right renal shadow, as noted on previous CT measures 3.9 cm in length and about 1.7 cm in cross-section, on CT. No interval change. No left renal stones. No definite ureteral stones. Numerous pelvic phleboliths. RAD/Abdomen Single View IMPRESSION: Lower pole right renal staghorn calculus is redemonstrated. Reading Location: [id number]
[2025-05-17 12:38] LABS: Hematocrit 39.8 % (37-47); Hemoglobin 12.1 g/dL (12.0-15.0); Immature Granulocytes Count 0.050 X10^3/uL (0.0-0.0); Mean Corp Hgb Conc 30.4 g/dL (32-36); Mean Corpuscular Volume 94.5 fL (81-99); Mean Platelet Vol. 8.8 fl (6.2-12.0); NRBC Flagged by Analyzer 0 % (0-5); Platelet Count 220 K/mm3 (150-450); RBC Distribution Width CV 14.1 % (11.6-14.6); RBC Distribution Width SD 48.4 fl (35.1-43.9); Red Blood Count 4.21 M/mm3 (4.2-5.4); White Blood Count 7.0 K/mm3 (4.4-11.0)
[2025-05-17 13:00] LABS: Anion Gap 12 (5-15); BUN 10 mg/dL (4-19); BUN/Creat Ratio 14.0 RATIO (10-20); Calcium,Total 9.5 mg/dL (7.6-11.0); Carbon Dioxide 26.4 mmol/L (21.0-32.0); Chloride 99 mmol/L (98-108); Glucose 179 mg/dL (70-99); Potassium 4.7 mmol/L (3.3-5.1)
--- OUTSIDE RECORDS SUMMARY | 2025-05-17 19:13 | XMS RPT_ITS | CCD ---
Author Organization [facility] Care Team Providers Care Weapons Officer Name Role Phone OSMAN TURNTABLE WORKER-MANAGER RESTAURANT, LACI Primary Care Physician [phone] OSMAN TURNTABLE WORKER-MANAGER RESTAURANT, LACI Primary Care Unavailabl e BALTES TURNTABLE WORKER-MANAGER RESTAURANT, LACI Attending Unavailabl e BALTES TURNTABLE WORKER-MANAGER RESTAURANT, LACI Primary Care Unavailabl e BALTES TURNTABLE WORKER-MANAGER RESTAURANT, LACI Attending Unavailabl e KAPPER TURNTABLE WORKER-MANAGER RESTAURANT, ROHAN Romero Attending Unavaila ble OSMAN SNOWN-MANAGER RESTAURANT, LACI Primary Care Unavailluisa e JOSE FRANCISCO GREENFIELD DO Referring Unavailable JOSE ROBERTO DO Consulting Unavailable KAPPANALY BENTON-MANAGER RESTAURANT, ROHAN Romero Admitting Unavaila ble Unavailable Primary Care Provider Unavailabl e Osman CHIEF SOLUTION ARCHITECT, CHIEF SOLUTION ARCHITECT-C Laci Primary Care Provider [phone] Osman CHIEF SOLUTION ARCHITECT, CHIEF SOLUTION ARCHITECT-C Laci Referring Provider [id number] [id number] MD Prieto Meade Attending Provider Dr. Shlomo Umana Attending Provider Balwinder Alves MD Primary Care Provider [phone] ZANDER UREÑA Referring Unavailable TETE TREVINO Attending [...] Balwinder Alves MD Referring Provider Unavailable Dr. Dorota James MD Attending Provider Dr. Dorota James MD Referring Provider Dr. Balwinder Alves MD Primary Care Provider Alves OLS, Balwinder K Primary Care Unavailable Alves OLS, Balwinder K Attending Unavailable Alves OLS, Balwinder K Referring Unavailable Alves OLS, Balwinder K Primary Care [...] K Referring Unavailable Alves OLS, Balwinder K Primary Care [...] Alves OLS, Balwinder K Primary Care Unavailable Dorota James Attending Unavailable Dorota James Referring Unavailable Alves, Balwinder K Primary Care Unavailable Alves OLS, Balwinder K Primary Care Unavailable Alves OLS, Balwinder K Attending Unavailable Alves OLS, Balwinder K Referring Unavailable Nelson MD, Balwinder Dominguez Primary Care Provider Unavaila jerri Alves MD, Balwinder Dominguez Attending Provider Unavailable Nelson OLVERA, Balwinder Dominguez Referring Provider Unavailable Dr. Dorota James MD Attending Provider Dr. Dorota James MD Referring Provider Dr. Balwinder Alves MD Referring Provider Allergies Allergy Classification Reported Allergen(s) Allergy Type Date of Onset Reaction(s) Facility (4 sources) Acetaminophen / oxyCODONE; Translations: [acetaminophen-oxyco done] Drug Allergy [facility] (7 sources) Adhesive Tape Allergy to substance 07-05-20 23 REDNESS & BLISTERS [facility] (4 sources) Amoxicillin / Clavulanate; Translations: [amoxicillin-clavula kellie] Drug Allergy [facility] (4 sources) Aspirin; Translations: [aspirin] Drug Allergy Unknown [facility] (20 sources) Ciprofloxacin; Translations: [ciprofloxacin] Drug Allergy 07-05-20 [facility] (4 sources) dapagliflozin; Translations: [dapagliflozin] Drug Allergy [facility] (7 sources) Ibuprofen; Translations: [ibuprofen] Drug Allergy 07-05-[address] [facility] (20 sources) Latex; Translations: [latex] Drug allergy 07-05-20 23 BLISTERS & REDNESS, blisters, Other [facility] Comment on above: BLISTERS (17 sources) Sulfamethoxazole; Translations: [sulfamethoxazole] Drug Allergy 11-01-19 21 Hives, Shortness of breath [facility] (6 sources) Cephalexin; Translations: [cephalexin] Drug Allergy 07-05-20 23 Hives [facility] Comment on above: Immediate rash / hiv es; patient seen in ER after last administration of Keflex (14 sources) Adhesive Tape; Translations: [adhesive tape] Allergy to substance 07-16-20 23 blister [facility] (16 sources) Trimethoprim Drug Allergy 11-01-19 21 Shortness of breath [facility] (3 sources) augmenten Allergy to substance 07-16-20 [facility] (4 sources) Aluminum aspirin Drug Allergy 07-05-20 Unknown [facility] (4 sources) dapagliflozin Drug Allergy 07-05-20 23 Rash [facility] (4 sources) Amoxicillin-Pot Clavulanate Drug Allergy 07-05-20 23 [facility] (4 sources) Diphenhydramine-Acet aminophen Drug Allergy 07-05-20 [facility] (3 sources) Acetaminophen / oxyCODONE Drug Allergy 10-14-19 [facility] (3 sources) Sulfamethoxazole Allergy to substance 11-01-19 [facility] (3 sources) Wound Dressing Adhesive Drug Allergy 07-16-20 [facility] (10 sources) Amoxicillin Drug Allergy 02-06-20 [facility] (10 sources) Clavulanate Drug Allergy 02-06-20 [facility] (10 sources) Vancomycin Drug Allergy 02-06-20 red man syndrome [facility] (1 source) Amoxicillin Drug Allergy 08-03-20 [facility] (1 source) Ciprofloxacin Drug Allergy 08-03-20 [facility] (1 source) Clavulanate Drug Allergy 08-03-20 [facility] (1 source) Sulfamethoxazole Drug Allergy 08-03-20 [facility] (1 source) Trimethoprim Drug Allergy 08-03-20 [facility] (1 source) Vancomycin Drug Allergy 08-03-20 [facility] Medications Current Medications Medication Drug [...] # 9 mL, 0 Refill(s), Pharmacy: [facility]/pharmacy #[id number], Type 2 diabetes mellitus, 168.91, cm, 02/18/23 11:25:00 EDT, Height, kg, 02/18/23 11:25:00 EDT, Dosing Weight Start Date: 05/19/23 Stop Date: 08/17/23 Status: Ordered acetaminophen 500 mg oral tablet (12 sources) Start: 05-17-2025 take 1 tablet by mouth every six hours as needed Acetaminophen (Tylenol Extra Strength) 500 mg tablet Active 500 mg PO EVERY 6 HOURS as needed May 17, 2025 12:00am Start: 07-22-2023 [employer] [facility] Pain Relief Extra St 500 MG tablet Start: 07-24-2021 acetaminophen 500 mg oral tablet Dose : 1,000 mg = 2 tab(s), Oral, TID, PRN pain or fever, 0 Refill(s) Start Date: 07/24/21 Status: Ordered Start: 01-10-2016 Tylenol 325 mg oral tablet Dose : 325 mg = 1 tab(s), Oral, q4hr, PRN for pain, 0 Refill(s) Start Date: 01/10/16 Status: Ordered alendronic acid 70 mg oral tablet (20 sources) Bisphosphonate Start: 10-07-2022 take 1 tablet by mouth every twenty-four hours alendronate (Fosamax) 70 MG tablet Take 1 tablet by mouth Every 24 hours. 0 10/07/2022 Active Start: 11-22-2020 take 70 mg by mouth every week Alendronate Sodium Active 70 mg PO EVERY WEEK November 22, 2020 1:00am ascorbic acid 500 mg oral capsule (1 source) Vitamin C Start: 05-17-2025 Ascorbic Acid (Vitamin C) 500 mg capsule Active mg PO May 17, 2025 12:00am Boric Acid (Azo Boric Acid) 600 mg suppository (1 source) Start: 05-17-2025 Boric Acid (Az o Boric Acid) 600 mg suppository Active mg VAGINAL May 17, 2025 12:00am Calcium (1 source) Phosphate Binder, Calcium Start: [...] qDay, # 180 tab(s), 3 Refill(s), Pharmacy: [facility]/pharmacy #[id number], 167.6, cm, 11/20/22 11:29:00 EST, Height, kg, 11/20/22 11:29:00 EST, Dosing Weight Start Date: 11/20/22 Status: Ordered Start: 11-13-2021 calcium (as ca rbonate) 600 mg oral tablet Dose : 1,200 mg = 2 tab(s), Oral, qDay, # 180 tab(s), 3 Refill(s), Pharmacy: [facility]/pharmacy #[id number], 167.6, cm, 11/05/21 9:58:00 EST, Height, kg, 11/05/21 9:58:00 EST, Dosing Weight Start Date: 11/13/21 Status: Ordered cholecalciferol 0.05 mg oral tablet (9 sources) Vitamin D Start: 05-17-2025 take 1 tablet by mouth once daily Cholecalciferol (Vitamin D3) 50 mcg (2,000 unit) tablet Active 50 ug PO daily May 17, 2025 12:00am Start: 08-05-2023 cholecalcifero l (Vitamin D-3) 50 MCG (1999 UT) tablet Start: 07-05-2023 take 1 tablet by ann th every twenty-four hours cholecalciferol (Vitamin D-3) 50 MCG (1999 UT) tablet Take 1 tablet by mouth Every 24 hours. 0 07/05/2023 Active ciprofloxacin 3 mg/ml ophthalmic solution (4 sources) Quinolone Antimicrobial Start: 04-23-2023 take 1 drop(s) into the eye(s) four times daily ciprofloxacin (Ciloxan) 0.3 % ophthalmic solution INSTILL 1 DROP INTO LEFT EYE FOUR TIMES A DAY STARTING 3 DAYS BEFORE SURGERY. 0 04/23/2023 Active colestipol hydrochloride 1000 mg oral tablet (1 source) Bile Acid Sequestrant Start: 05-17-2025 Colestipol 1 gram tablet Active g PO May 17, 2025 12:00am D-Mannose (1 source) Start: 05-17-2025 take 1 capsule by mouth once D-Mannose 500 mg capsule Active mg PO May 17, 2025 12:00am diclofenac sodium 0.01 mg/mg topical gel (1 source) Nonsteroidal Anti-inflammatory Drug Start: 05-17-2025 Diclofenac Sodium 1 % gel Active TOPICAL May 17, 2025 12:00am DULoxetine 60 mg delayed release oral capsule (20 sources) Serotonin and Norepinephrine Reuptake Inhibitor Start: 11-01-2020 Duloxetine 60 MG capsule,delayed release(DR/EC) Active 60 mg PO November 01, 2020 1:00am furosemide 20 mg oral tablet (1 source) Loop Diuretic Start: 04-23-2021 furosemide 20 mg oral tablet Dose : 20 mg = 1 tab(s), Oral, qDay, PRN Swelling, # 30 tab(s), 0 Refill(s) Start Date: 04/23/21 Status: Ordered gabapentin 400 mg oral capsule (18 sources) Anti-epileptic Agent Start: 05-17-2025 take 1 capsule by mouth three times daily Gabapentin 400 mg capsule Active 400 mg PO THREE TIMES A DAY May 17, 2025 12:00am Start: 06-10-2023 End: 09-08-2023 gabapentin 400 mg oral capsu le Dose : 400 mg = 1 cap(s), Oral, TID, # 270 cap(s), 0 Refill(s), Pharmacy: [facility]/pharmacy #[id number], Diabetic neuropathy, 168.91, cm, 02/18/23 11:25:00 EDT, Height, 127.7, kg, 02/18/23 11:25:00 EDT, Dosing Weight Start Date: 06/10/23 Stop Date: 09/08/23 Status: Ordered Start: 11-20-2022 End: 02-18-2023 gabapentin 400 mg oral capsu le Dose : 400 mg = 1 cap(s), Oral, TID, # 270 cap(s), 0 Refill(s), Pharmacy: [facility]/pharmacy #[id number], Diabetic neuropathy, 167.6, cm, 11/20/22 11:29:00 EST, Height, 134, kg, 11/20/22 11:29:00 EST, Dosing Weight Start Date: 11/20/22 Stop Date: 02/18/23 Status: Ordered Start: 10-25-2021 End: 01-23-2022 gabapentin 400 mg oral capsu le Dose : 400 mg = 1 cap(s), Oral, TID, dose change, # 270 cap(s), 0 Refill(s), Pharmacy: [facility]/pharmacy #[id number], Diabetic neuropathy, 166.37, cm, 07/24/21 11:31:00 EDT, Height, 134.5, kg, 07/24/21 11:31:00 EDT, Dosing Weight Start Date: 10/25/21 Stop Date: 01/23/22 Status: Ordered Start: 04-23-2021 End: 07-22-2021 gabapentin 400 mg oral capsu le Dose : 400 mg = 1 cap(s), Oral, TID, dose change, # 270 cap(s), 0 Refill(s), Pharmacy: [facility]/pharmacy #[id number], Diabetic neuropathy, 167.6, cm, 04/23/21 11:30:00 EDT, Height, 133.2, kg, 04/23/21 11:30:00 EDT, Dosing Weight Start Date: 04/23/21 Stop Date: 07/22/21 Status: Ordered Start: 11-01-2020 End: 05-17-2025 Gabapentin 600 MG tablet Dis continued THREE TIMES A DAY November 01, 2020 1:00am May 17, 2025 9:54am Start: 11-01-2020 Gabapentin 600 MG tablet Active [...] E11.9, # 4 EA, 3 Refill(s), Pharmacy: [facility]/pharmacy #[id number], Diabetes, 166.37, cm, 07/24/21 11:31:00 EDT, Height, kg, 07/24/21 11:31:00 EDT, Dosing Weight Start Date: 07/24/21 Stop Date: 07/19/22 Status: Ordered Start: 05-14-2021 inject 1 dose by sub cutaneous injection twice daily Lantus Solostar Pen 100 units/mL 3 mL Pen Dose : 30 unit(s) =, Subcutaneous, BID, EA=BOX OF 5 PENS diabetes E11.9, # 4 EA, 3 Refill(s), Pharmacy: [facility]/pharmacy #[id number], 167.6, cm, 04/23/21 11:30:00 EDT, Height, kg, 04/23/21 11:30:00 EDT, Dosing Weight Start Date: 05/14/21 Status: Ordered loperamide hydrochloride 2 mg oral capsule (1 source) Opioid Agonist Start: 05-17-2025 take 1 capsule by mouth every six hours as needed Loperamide (Imodium A-D) 2 mg capsule Active 2 mg PO EVERY 6 HOURS as needed May 17, 2025 12:00am losartan potassium 100 mg oral tablet (17 sources) Angiotensin 2 Receptor Ysabel Start: 02-18-2023 losartan 100 mg oral tablet Dose : 100 mg = 1 tab(s), Oral, Daily, # 90 tab(s), 1 Refill(s), Pharmacy: [facility]/pharmacy #[id number], Hypertension, 168.91, cm, 02/18/23 11:25:00 EDT, Height, kg, 02/18/23 11:25:00 EDT, Dosing Weight Start Date: 02/18/23 Status: Ordered Start: 02-25-2022 losartan 100 m g oral tablet Dose : 100 mg = 1 tab(s), Oral, Daily, # 90 tab(s), 3 Refill(s), Pharmacy: [facility]/pharmacy #[id number], Hypertension, 167.6, cm, 02/04/22 11:02:00 EDT, Height, kg, 02/04/22 11:02:00 EDT, Dosing Weight Start Date: 02/25/22 Status: Ordered Start: 07-24-2021 losartan 100 m g oral tablet Dose : 100 mg = 1 tab(s), Oral, Daily, In absence of PCP, # 90 tab(s), 1 Refill(s), Pharmacy: [facility]/pharmacy #[id number], Hypertension, 166.37, cm, 07/24/21 11:31:00 EDT, Height, kg, 07/24/21 11:31:00 EDT, Dosing Weight Start Date: 07/24/21 Status: Ordered Start: 04-23-2021 losartan 100 m g oral tablet Dose : 100 mg = 1 tab(s), Oral, Daily, In absence of PCP, # 90 tab(s), 1 Refill(s), Pharmacy: [facility]/pharmacy #[id number], Hypertension, 167.6, cm, 04/23/21 11:30:00 EDT, Height, kg, 04/23/21 11:30:00 EDT, Dosing Weight Start Date: 04/23/21 Status: Ordered Start: 11-01-2020 Losartan 100 M G tablet Active DAILY November 01, 2020 1:00am Menthol / Zinc Oxide (1 source) Start: 05-17-2025 Menthol-Zinc Oxide (Calmoseptine) 0.44-20.6 % ointment Active 1 NMA TOPICAL 4 to 6 times per day as needed May 17, 2025 12:00am metFORMIN hydrochloride 1000 mg oral tablet (17 sources) Biguanide Start: 07-24-2020 Metformin 1,000 MG tablet Active 1000 mg PO November 01, 2020 1:00am methenamine hippurate 1000 mg oral tablet (1 source) Start: 05-17-2025 Methenamine Hippurate 1 gram tablet Active 1 g PO TWICE A DAY May 17, 2025 12:00am naproxen 250 mg oral tablet (1 source) Nonsteroidal Anti-inflammatory Drug Start: 07-04-2023 End: 07-14-2023 naproxen 250 mg oral tablet Dose : 250 mg = 1 tab(s), Oral, BID, X 10 day(s), # 20 tab(s), 0 Refill(s), 07/14/23 1:08:00 PM EDT, Pharmacy: [facility]/pharmacy #[id number], 160, cm, 06/30/23 18:36:00 EDT, Height, kg, 06/30/23 18:36:00 EDT, Dosing Weight Start Date: 07/04/23 Stop Date: 07/14/23 Status: Ordered oxybutynin chloride 5 mg oral tablet (1 source) Cholinergic Muscarinic Antagonist Start: 05-17-2025 take 1 tablet by mouth once daily Oxybutynin Chloride 5 mg tablet Active 5 mg PO daily May 17, 2025 12:00am oxyCODONE hydrochloride 5 mg oral tablet (1 source) Opioid Agonist Start: 05-17-2025 take 1 tablet by mouth three times daily as needed Oxycodone 5 mg tablet Active 5 mg PO THREE TIMES A DAY as needed 0 May 17, 2025 12:00am Pen needles 8 mm (1 source) Start: 04-23-2021 Pen needles 8 mm See Instructions, Using Twice Daily. ONE BOX OF 100. BD UF 8mm 31 G (short) qs 3 month supply Diabetes Mellitus E11.9, # 2 EA, 0 Refill(s), [id number], 167.6, cm, 04/23/21 11:30:00 EDT, Height, [...] sites, # 9 mL, 0 Refill(s), [id number], Diabetes Diabetes mellitus, 167.6, cm, 11/20/22 11:29:00 EST, Height, kg, 11/20/22 11:29:00 EST, Dosing Weight Start Date: 11/20/22 Stop Date: 02/18/23 Status: Ordered simvastatin 5 mg oral tablet (16 sources) HMG-CoA Reductase Inhibitor Start: 07-16-2023 take 1 tablet by mouth once daily Simvastatin 5 mg tablet Active 5 mg PO DAILY July 16, 2023 12:00am Start: 08-20-2022 simvastatin 5 mg oral tablet Dose : 5 mg = 1 tab(s), Oral, qHS, # 90 tab(s), 3 Refill(s), Pharmacy: [facility]/pharmacy #[id number], Type 2 diabetes mellitus, 167.6, cm, 11/15/22 12:13:00 EST, Height, kg, 08/19/22 12:13:00 EST, Dosing Weight Start Date: 08/20/22 Status: Ordered Start: 08-28-2021 simvastatin 5 mg oral tablet Dose : 5 mg = 1 tab(s), Oral, qHS, # 90 tab(s), 3 Refill(s), Pharmacy: [facility]/pharmacy #[id number], Type 2 diabetes mellitus, 166.37, cm, 07/24/21 11:31:00 EDT, Height, kg, 07/24/21 11:31:00 EDT, Dosing Weight Start Date: 08/28/21 Status: Ordered SITagliptin 100 mg oral tablet (16 sources) Dipeptidyl Peptidase 4 Inhibitor Start: 11-01-2020 take 1 tablet by mouth once daily Sitagliptin Phosphate 100 MG tablet Active 100 mg PO DAILY November 01, 2020 1:00am sodium chloride 0.111 meq/ml nasal spray (1 source) Start: 05-17-2025 Sodium Chlorid e 0.65 % aerosol,spray Active 2 NMA INTRANASAL Q4H May 17, 2025 12:00am while awake traZODone hydrochloride 100 mg oral tablet (17 sources) Serotonin Reuptake Inhibitor Start: 02-18-2023 traZODone 100 mg oral tablet Dose : 100 mg = 1 tab(s), Oral, qHS, # 90 tab(s), 3 Refill(s), Pharmacy: [facility]/pharmacy #[id number], Insomnia, 168.91, cm, 02/18/23 11:25:00 EDT, Height, kg, 02/18/23 11:25:00 EDT, Dosing Weight Start Date: 02/18/23 Status: Ordered Start: 05-01-2022 traZODone 100 mg oral tablet Dose : 100 mg = 1 tab(s), Oral, qHS, # 90 tab(s), 3 Refill(s), Pharmacy: [facility]/pharmacy #[id number], Insomnia, 167.6, cm, 02/04/22 11:02:00 EDT, Height, kg, 02/04/22 11:02:00 EDT, Dosing Weight Start Date: 05/01/22 Status: Ordered Start: 07-24-2021 traZODone 100 mg oral tablet Dose : 100 mg = 1 tab(s), Oral, qHS, # 90 tab(s), 1 Refill(s), [id number], Insomnia, 166.37, cm, 07/24/21 11:31:00 EDT, Height, kg, 07/24/21 11:31:00 EDT, Dosing Weight Start Date: 07/24/21 Status: Ordered Start: 04-23-2021 traZODone 100 mg oral tablet Dose : 100 mg = 1 tab(s), Oral, qHS, # 90 tab(s), 1 Refill(s), Pharmacy: [facility]/pharmacy #[id number], Insomnia, 167.6, cm, 04/23/21 11:30:00 EDT, [...] Daily, # 90 cap(s), 3 Refill(s), [id number], 166.37, cm, 07/24/21 11:31:00 EDT, Height, kg, 07/24/21 11:31:00 EDT, Dosing Weight Start Date: 09/11/21 Status: Ordered Vitamin D3 400 intl units (1 0 mcg) oral tablet (1 source) Start: 04-23-2021 Vitamin D3 400 intl units (10 mcg) oral tablet Dose : 20 mcg = 2 tab(s), Oral, qDay, # 180 tab(s), 3 Refill(s), Pharmacy: [facility]/pharmacy #[id number], Vitamin D deficiency, 167.6, cm, 04/23/21 11:30:00 EDT, Height, kg, 04/23/21 11:30:00 EDT, Dosing Weight Start Date: 04/23/21 Status: Ordered Vitamin D3 50 mcg (2000 intl units) oral tablet (2 sources) Start: 08-20-2022 Vitamin D3 50 mcg (2000 intl units) oral tablet Dose : 2,000 unit(s) = 1 tab(s), Oral, Daily, dose increase, # 90 tab(s), 3 Refill(s), Pharmacy: [facility]/pharmacy #[id number], Vitamin D deficiency, 167.6, cm, 08/19/22 12:13:00 EST, Height, kg, 08/19/22 12:13:00 EST, Dosing Weight Start Date: 08/20/22 Status: Ordered Completed/Discontinued Medications Medication Drug Class(es) Dates Sig (Normalized) Sig (Original) acetaminophen 325 mg / HYDROcodone bitartrate 5 mg oral tablet (14 sources) Opioid Agonist Start: 07-16-2023 End: 05-17-2025 Hydrocodone-Acetami nophen 5-325 mg tablet Discontinued 1 {tbl} PO AT BEDTIME as needed 0 July 16, 2023 12:00am May 17, 2025 9:58am Start: 07-16-2023 take 1 tablet by ann th at bedtime Hydrocodone-Acetaminophen Active 1 TABLE T PO AT BEDTIME July 16, 2023 12:00am Start: 07-03-2023 End: 07-06-2023 [place] 325- 5 mg oral tablet Dose = 1 tab(s), Oral, q4h, PRN Pain, scale 4-6, X 3 day(s), # 18 tab(s), 0 Refill(s), Fibula fracture, 128 Start Date: 07/03/23 Stop Date: 07/06/23 Status: Ordered ceFAZolin 1000 mg injection (1 source) Cephalosporin [...] # 120 packet(s), 0 Refill(s), Pharmacy: [facility]/pharmacy #[id number], Diarrhea, 167.6, cm, 02/04/22 11:02:00 EDT, [...] pain/diarrhea, # 120 packet(s), 0 Refill(s), [id number], Diarrhea, 167.6, cm, 02/04/22 11:02:00 EDT, Height, kg, 02/04/22 11:02:00 EDT, Dosing Weight Start Date: 04/03/22 Stop Date: 07/02/22 Status: Ordered clotrimazole 10 mg/ml topical cream (1 source) Azole Antifungal Start: 07-03-2023 clotrimazole 1% topical cream Apply 1 calos, Topical, BID, 0 Refill(s), Cream, 128 Start Date: 07/03/23 Status: Ordered fenofibrate 145 mg oral tablet (14 sources) Peroxisome Proliferator Receptor alpha Agonist Start: [...] 141.8 Start Date: 10/16/20 Status: Ordered Problems Active Problems Problem Classification Problem Date Documented Da te Episodic/Chronic Calculus of urinary tract (3 sources) Calculus of kidney; Translations: [Kidney stone] Onset: 04-04-2025 05-17-2025 Episodic Diabetes mellitus with complications (20 sources) Neuropathy due to diabetes mellitus; Translations: [Type 2 diabetes mellitus with diabetic neuropathy, unspecified] Onset: 06-30-2023 02-06-2022 Chronic Comment on above: bowen 2 Diabetes mellitus without complication (10 sources) Diabetes mellitus; Translations: [Type 2 diabetes mellitus without complication] Onset: 06-30-2023 02-22-2020 Chronic Disorders of lipid metabolism (17 sources) Hyperlipidemia; Translations: [Hyperlipidemia, unspecified] 05-10-2019 Chronic E Codes: Fall (13 sources) Fall; Translations: [Unspecified fall, initial encounter] 11-08-2020 Episodic Essential hypertension (20 sources) Hypertensive disorder; Translations: [Essential hypertension] Onset: 06-30-2023 12-27-2015 Chronic Fracture of lower limb (20 sources) Closed fracture of shaft of fibula; Translations: [Unspecified fracture of shaft of unspecified fibula, initial encounter for closed fracture] Onset: 07-02-2023 Episodic Genitourinary symptoms and ill-defined conditions (4 sources) Urinary incontinence 07-25-2019 Chronic Inflammatory diseases of female pelvic organs (10 sources) Abscess of labia; Translations: [Abscess of [...] neck 05-17-2020 Episodic Other non-traumatic joint disorders (13 sources) Ankle pain; Translations: [Pain in left [...] 11-15-2019 Episodic Skin and subcutaneous tissue infections (13 sources) Cellulitis of leg, excluding foot; Translations: [Cellulitis of left lower limb] 11-01-2020 Episodic Transient cerebral ischemia (2 sources) Transient cerebral ischemia 04-06-2019 Chronic Urinary tract infections (6 sources) Urinary tract infectious disease; Translations: [Urinary tract infection, site not specified] Onset: 07-01-2023 Episodic Past or Other Problems Problem Classification Problem Date Documented Da te Episodic/Chronic Abdominal pain (1 source) Abdominal tenderness, unspecified site; Translations: [Abdominal tenderness, unspecified site] Onset: 01-12-2025 Episodic Other aftercare (1 source) Other oysterman (current) drug therapy; Translations: [Other oysterman (current) drug therapy] Onset: 01-12-2025 Episodic Results Test Name Value Interpretation Reference Range Facility Abdomen/Pelvis without Conto n 03-31-2025 Abdomen/Pelvis without Cont [facility] [address] [place] [address] [id number] Abdomen/Pelvis without Cont MR#: [id number] Acct: [id number] Name: GUMARO HUFF Rep #: [id number] : 1945 F 80 From: Douglas ceron MD PCP: Dr. Balwinder Alves MD Status: REG CLI Study: Abdomen/Pelvis without Cont Date of Exam: 03/06 04/28 Exam# [id number] Ordering Dr: Dorota James MD PROCEDURE: ABDOMEN/PELVIS WITHOUT CONT 03/31/2025 REASON FOR EXAM: KIDNEY STONE TECHNIQUE: ABDOMEN/PELVIS WITHOUT CONT Noncontrast technique limits evaluation of the abdominal and pelvic viscera. Coronal and Sagittal reconstruction series were provided. One or more dose reduction techniques were used (e.g., Automated exposure control, adjustment of the mA and/or kV according to patient size, use of iterative reconstruction technique). RADIATION DOSE SUMMARY: CTDlvol: 23.05 mGy DLP: 1249.88 mGycm COMPARISON: None FINDINGS: Lung bases: Mild dependent atelectasis. Coronary artery calcification. Liver: Normal size. No obvious mass. Gallbladder: Several calcified gallstones. Spleen: Normal size. Pancreas: Normal size. No surrounding inflammation. Adrenals: Unremarkable Kidneys: There is a staghorn calculus in the mid lower pole of the right kidney with extension to the renal pelvis. This measures 2.4 cm Bladder: Unremarkable Reproductive Organs: Prior hysterectomy. Adnexal regions are unremarkable. Bowel: Colonic diverticulosis without diverticulitis. Appendix: The appendix is not identified. There is no inflammatory process identified in the right lower quadrant to suggest appendicitis. Lymph nodes: Unremarkable. Vasculature: Mild diffuse atherosclerotic calcifications are noted. Peritoneum / Retroperitoneum: Unremarkable Bones: Degenerative changes of the spine. CT/Abdomen/Pelvis without Cont IMPRESSION: Staghorn calculus in the right kidney. Sigmoid diverticulosis. Status post cholecystectomy. Reading Location: [id number] CC: Dr. Dorota James MD; Dr. Balwinder Alves MD Apple Picker: Signed Normal [facility] Anion gap in Serum or Plasma Ordered By: Balwinder Alves on 03-16-2025 Anion gap [Moles/Vol] 11 mmol/L 5-15 [facility] BUN/creatinine ratioOrdered By: Balwinder Alves on 03-16-2025 Urea nitrogen/Creatinine [Mass ratio] 13.7 mg/mg 07-24 [facility] Basic Metabolic Profile (BMP )on 03-16-2025 BUN/CRE 13.7 RATIO Normal 07-24 [facility] Comment on above: Order Comment: 102.2 Performed By: #### L 501.9985, L500.4100, L500.2500, L506.1001, L100.0500 #### [facility] [address] [place], [address] Calcium [Mass/Vol] 9.6 mg/dL Normal 7.6-11.0 [facility] Comment on above: Order Comment: 102.2 Performed By: #### L 501.9985, L500.4100, L500.2500, L506.1001, L100.0500 #### [facility] [address] [place], [address] Chloride [Moles/Vol] 99 mmol/L Normal 98-108 [facility] Comment on above: Order Comment: 102.2 Performed By: #### L 501.9985, L500.4100, L500.2500, L506.1001, L100.0500 #### [facility] [address] [place], [address] CO2 [Moles/Vol] 28.0 mmol/L Normal 21.0-32.0 [facility] Comment on above: Order Comment: 102.2 Performed By: #### L 501.9985, L500.4100, L500.2500, L506.1001, L100.0500 #### [facility] [address] [place], [address] Creatinine [Mass/Vol] 0.67 mg/dL Low 0.70-1.20 [facility] Comment on above: Order Comment: 102.2 Performed By: #### L 501.9985, L500.4100, L500.2500, L506.1001, L100.0500 #### [facility] [address] [place], [address] GAP 11 Normal 5-15 [facility] Comment on above: Order Comment: 102.2 Performed By: #### L 501.9985, L500.4100, L500.2500, L506.1001, L100.0500 #### [facility] [address] [place], [address] GFR/1.73 sq M.predicted among non-blacks MDRD (S/P/Bld) [Vol rate/Area] 87 mL/min/{1.73_m2} Normal >60 [facility] Comment on above: Order Comment: 102.2 Result Comment: mL/m in/1.73m2 CKD-EPI Creatinine Equation (2020) Performed By: #### L 501.9985, L500.4100, L500.2500, L506.1001, L100.0500 #### [facility] [address] [place], [address] Glucose [Mass/Vol] 222 mg/dL High 70-99 [facility] Comment on above: Order Comment: 102.2 Performed By: #### L 501.9985, L500.4100, L500.2500, L506.1001, L100.0500 #### [facility] [address] [place], [address] Potassium [Moles/Vol] 4.3 mmol/L Normal 3.3-5.1 [facility] Comment on above: Order Comment: 102.2 Performed By: #### L 501.9985, L500.4100, L500.2500, L506.1001, L100.0500 #### [facility] [address] [place], [address] Sodium [Moles/Vol] 139 mmol/L Normal 133-145 [facility] Comment on above: Order Comment: 102.2 Performed By: #### L 501.9985, L500.4100, L500.2500, L506.1001, L100.0500 #### [facility] [address] [place], [address] Urea nitrogen [Mass/Vol] 9 mg/dL Normal 4-19 [facility] Comment on above: Order Comment: 102.2 Performed By: #### L 501.9985, L500.4100, L500.2500, L506.1001, L100.0500 #### [facility] [address] [place], [address] CBC-Complete Blood Cnt No Di ffon 03-16-2025 Erythrocyte distribution width (RBC) [Ratio] 15.1 % High 11.6-14.6 [facility] Comment on above: Order Comment: 102.2 Performed By: #### L 501.9985, L500.4100, L500.2500, L506.1001, L100.0500 #### [facility] [address] [place], [address] Hematocrit (Bld) [Volume fraction] 35.7 % Low 37-47 [facility] Comment on above: Order Comment: 102.2 Performed By: #### L 501.9985, L500.4100, L500.2500, L506.1001, L100.0500 #### [facility] [address] [place], [address] Hemoglobin (Bld) [Mass/Vol] 10.9 g/dL Low 12.0-15.0 [facility] Comment on above: Order Comment: 102.2 Performed By: #### L 501.9985, L500.4100, L500.2500, L506.1001, L100.0500 #### [facility] [address] [place], [address] MCH (RBC) [Entitic mass] 28.8 pg Normal 27.0-32.0 [facility] Comment on above: Order Comment: 102.2 Performed By: #### L 501.9985, L500.4100, L500.2500, L506.1001, L100.0500 #### [facility] [address] [place], [address] MCHC (RBC) [Mass/Vol] 30.5 g/dL Low 32-36 [facility] Comment on above: Order Comment: 102.2 Performed By: #### L 501.9985, L500.4100, L500.2500, L506.1001, L100.0500 #### [facility] [address] [place], [address] MCV (RBC) [Entitic vol] 94.4 fL Normal 81-99 [facility] Comment on above: Order Comment: 102.2 Performed By: #### L 501.9985, L500.4100, L500.2500, L506.1001, L100.0500 #### [facility] [address] [place], [address] Platelet mean volume (Bld) [Entitic vol] 8.6 fL Normal 6.2-12.0 [facility] Comment on above: Order Comment: 102.2 Performed By: #### L 501.9985, L500.4100, L500.2500, L506.1001, L100.0500 #### [facility] [address] [place], [address] Platelets (Bld) [#/Vol] 187 10*3/uL Normal 150-450 [facility] Comment on above: Order Comment: 102.2 Performed By: #### L 501.9985, L500.4100, L500.2500, L506.1001, L100.0500 #### [facility] [address] [place], [address] RBC (Bld) [#/Vol] 3.78 10*6/uL Low 4.2-5.4 [facility] Comment on above: Order Comment: 102.2 Performed By: #### L 501.9985, L500.4100, L500.2500, L506.1001, L100.0500 #### [facility] [address] [place], [address] RDW SD 51.7 fl High 35.1-43.9 [facility] Comment on above: Order Comment: 102.2 Performed By: #### L 501.9985, L500.4100, L500.2500, L506.1001, L100.0500 #### [facility] [address] [place], [address] WBC (Bld) [#/Vol] 7.1 10*3/uL Normal 4.4-11.0 [facility] Comment on above: Order Comment: 102.2 Performed By: #### L 501.9985, L500.4100, L500.2500, L506.1001, L100.0500 #### [facility] [address] [place], [address] Carbon dioxide, total [Moles /volume] in Central venous bloodOrdered By: Balwinder Alves on 03-16-2025 CO2 [Moles/Vol] 28.0 mmol/L 21.0-32.0 [facility] Chloride assayOrdered By: Jen Alves on 03-16-2025 Chloride [Moles/Vol] 99 mmol/L 98-108 [facility] Erythrocyte distribution wid th ratioOrdered By: Balwinder Alves on 03-16-2025 Erythrocyte distribution width (RBC) [Ratio] 15.1 % High 11.6-14.6 [facility] Erythrocyte distribution wid th standard deviationOrdered By: Balwinder Alves on 03-16-2025 Erythrocyte distribution width (RBC) [Ratio] 51.7 fl High 35.1-43.9 [facility] Glomerular filtration rate ( GFR) estimation/1.73 sq m using serum, plasma, or whole bOrdered By: Balwinder Alves on 03-16-2025 GFR/1.73 sq M.predicted among non-blacks MDRD (S/P/Bld) [Vol rate/Area] 87 mL/min/{1.73_m2} >60 [facility] Comment on above: mL/min/1.73m2 CKD-EP I Creatinine Equation (2020) Hematocrit Auto (Bld) [Volum e fraction]Ordered By: Balwinder Alves on 03-16-2025 Hematocrit (Bld) [Volume fraction] 35.7 % Low 37-47 [facility] Hemoglobin measurementOrdere d By: Balwinder Alves on 03-16-2025 Hemoglobin (Bld) [Mass/Vol] 10.9 g/dL Low 12.0-15.0 [facility] MCV (mean corpuscular volume ) determinationOrdered By: Balwinder Alves on 03-16-2025 MCV (RBC) [Entitic vol] 94.4 fL 81-99 [facility] Mean corpuscular hemoglobin (MCH) determinationOrdered By: Balwinder Alves on 03-16-2025 MCH (RBC) [Entitic mass] 28.8 pg 27.0-32.0 [facility] Mean corpuscular hemoglobin concentration (MCHC) determinationOrdered By: Balwinder Alves on 03-16-2025 MCHC (RBC) [Mass/Vol] 30.5 g/dL Low 32-36 [facility] Mean platelet volume determi nationOrdered By: Balwinder Alves on 03-16-2025 Platelet mean volume (Bld) [Entitic vol] 8.6 fL 6.2-12.0 [facility] Platelet countOrdered By: Jen Alves on 03-16-2025 Platelets (Bld) [#/Vol] 187 10*3/uL 150-450 [facility] Potassium measurement (mass/ volume)Ordered By: Balwinder Alves on 03-16-2025 Potassium (Unsp spec) [Mass/Vol] 4.3 mmol/L 3.3-5.1 [facility] RBC Auto (Bld) [#/Vol]Ordere d By: Balwinder Alves on 03-16-2025 RBC (Bld) [#/Vol] 3.78 10*6/uL Low 4.2-5.4 [facility] Serum creatinine measurement (mass/volume)Ordered By: Balwinder Alves on 03-16-2025 Creatinine [Mass/Vol] 0.67 mg/dL Low 0.70-1.20 [facility] Serum glucose measurement (m ass/volume)Ordered By: Balwinder Alves on 03-16-2025 Glucose [Mass/Vol] 222 mg/dL High 70-99 [facility] Serum or plasma calcium jacqueline urement (mass/volume)Ordered By: Balwinder Alves on 03-16-2025 Calcium [Mass/Vol] 9.6 mg/dL 7.6-11.0 [facility] Serum or plasma urea nitroge n measurement (mass/volume)Ordered By: Balwinder Alves on 03-16-2025 Urea nitrogen [Mass/Vol] 9 mg/dL 4-19 [facility] Sodium levelOrdered By: Balwinder Alves on 03-16-2025 Sodium [Moles/Vol] 139 mmol/L 133-145 [facility] White blood cell (WBC) count Ordered By: Balwinder Alves on 03-16-2025 WBC (Bld) [#/Vol] 7.1 10*3/uL 4.4-11.0 [facility] Anion gap in Serum or Plasma Ordered By: Balwinder Alves on 03-15-2025 Anion gap [Moles/Vol] 9 mmol/L 5-15 [facility] BUN/creatinine ratioOrdered By: Balwinder Alves on 03-15-2025 Urea nitrogen/Creatinine [Mass ratio] 13.6 mg/mg 10- [facility] Basic Metabolic Profile (BMP )on 03-15-2025 BUN/CRE 13.6 RATIO Normal - [facility] Comment on above: Order Comment: 102.2 Performed By: #### L 501.9985, L500.4100, L500.2500, L506.1001, L100.0500 #### [facility] [address] [place], [place], [address] Calcium [Mass/Vol] 9.6 mg/dL Normal 7.6-11.0 [facility] Comment on above: Order Comment: 102.2 Performed By: #### L 501.9985, L500.4100, L500.2500, L506.1001, L100.0500 #### [facility] [address] [place], [address] Chloride [Moles/Vol] 98 mmol/L Normal 98-108 [facility] Comment on above: Order Comment: 102.2 Performed By: #### L 501.9985, L500.4100, L500.2500, L506.1001, L100.0500 #### [facility] [address] [place], [address] CO2 [Moles/Vol] 30.1 mmol/L Normal 21.0-32.0 [facility] Comment on above: Order Comment: 102.2 Performed By: #### L 501.9985, L500.4100, L500.2500, L506.1001, L100.0500 #### [facility] [address] [place], [address] Creatinine [Mass/Vol] 0.79 mg/dL Normal 0.70-1.20 [facility] Comment on above: Order Comment: 102.2 Performed By: #### L 501.9985, L500.4100, L500.2500, L506.1001, L100.0500 #### [facility] [address] [place], [address] GAP 9 Normal 5-15 [facility] Comment on above: Order Comment: 102.2 Performed By: #### L 501.9985, L500.4100, L500.2500, L506.1001, L100.0500 #### [facility] [address] [place], [address] GFR/1.73 sq M.predicted among non-blacks MDRD (S/P/Bld) [Vol rate/Area] 75 mL/min/{1.73_m2} Normal >60 [facility] Comment on above: Order Comment: 102.2 Result Comment: mL/m in/1.73m2 CKD-EPI Creatinine Equation (2020) Performed By: #### L 501.9985, L500.4100, L500.2500, L506.1001, L100.0500 #### [facility] [address] [place], [address] Glucose [Mass/Vol] 188 mg/dL High 70-99 [facility] Comment on above: Order Comment: 102.2 Performed By: #### L 501.9985, L500.4100, L500.2500, L506.1001, L100.0500 #### [facility] [address] [place], [address] Potassium [Moles/Vol] 4.7 mmol/L Normal 3.3-5.1 [facility] Comment on above: Order Comment: 102.2 Performed By: #### L 501.9985, L500.4100, L500.2500, L506.1001, L100.0500 #### [facility] [address] [place], [address] Sodium [Moles/Vol] 137 mmol/L Normal 133-145 [facility] Comment on above: Order Comment: 102.2 Performed By: #### L 501.9985, L500.4100, L500.2500, L506.1001, L100.0500 #### [facility] [address] [place], [address] Urea nitrogen [Mass/Vol] 11 mg/dL Normal 4-19 [facility] Comment on above: Order Comment: 102.2 Performed By: #### L 501.9985, L500.4100, L500.2500, L506.1001, L100.0500 #### [facility] [address] [place], [address] CBC-Complete Blood Cnt No Di ffon 03-15-2025 Erythrocyte distribution width (RBC) [Ratio] 15.2 % High 11.6-14.6 [facility] Comment on above: Order Comment: 102.2 Performed By: #### L 501.9985, L500.4100, L500.2500, L506.1001, L100.0500 #### [facility] [address] [place], [address] Hematocrit (Bld) [Volume fraction] 36.2 % Low 37-47 [facility] Comment on above: Order Comment: 102.2 Performed By: #### L 501.9985, L500.4100, L500.2500, L506.1001, L100.0500 #### [facility] [address] [place], [address] Hemoglobin (Bld) [Mass/Vol] 11.1 g/dL Low 12.0-15.0 [facility] Comment on above: Order Comment: 102.2 Performed By: #### L 501.9985, L500.4100, L500.2500, L506.1001, L100.0500 #### [facility] [address] [place], [address] MCH (RBC) [Entitic mass] 28.9 pg Normal 27.0-32.0 [facility] Comment on above: Order Comment: 102.2 Performed By: #### L 501.9985, L500.4100, L500.2500, L506.1001, L100.0500 #### [facility] [address] [place], [address] MCHC (RBC) [Mass/Vol] 30.7 g/dL Low 32-36 [facility] Comment on above: Order Comment: 102.2 Performed By: #### L 501.9985, L500.4100, L500.2500, L506.1001, L100.0500 #### [facility] [address] [place], [address] MCV (RBC) [Entitic vol] 94.3 fL Normal 81-99 [facility] Comment on above: Order Comment: 102.2 Performed By: #### L 501.9985, L500.4100, L500.2500, L506.1001, L100.0500 #### [facility] [address] [place], [address] Platelet mean volume (Bld) [Entitic vol] 8.4 fL Normal 6.2-12.0 [facility] Comment on above: Order Comment: 102.2 Performed By: #### L 501.9985, L500.4100, L500.2500, L506.1001, L100.0500 #### [facility] [address] [place], [address] Platelets (Bld) [#/Vol] 177 10*3/uL Normal 150-450 [facility] Comment on above: Order Comment: 102.2 Performed By: #### L 501.9985, L500.4100, L500.2500, L506.1001, L100.0500 #### [facility] [address] [place], [address] RBC (Bld) [#/Vol] 3.84 10*6/uL Low 4.2-5.4 [facility] Comment on above: Order Comment: 102.2 Performed By: #### L 501.9985, L500.4100, L500.2500, L506.1001, L100.0500 #### [facility] [address] [place], [address] RDW SD 52.1 fl High 35.1-43.9 [facility] Comment on above: Order Comment: 102.2 Performed By: #### L 501.9985, L500.4100, L500.2500, L506.1001, L100.0500 #### [facility] [address] [place], [address] WBC (Bld) [#/Vol] 7.1 10*3/uL Normal 4.4-11.0 [facility] Comment on above: Order Comment: 102.2 Performed By: #### L 501.9980, L500.6300, L500.2500, L506.1001, L100.0500 #### [facility] [address] [place], [address] Carbon dioxide, total [Moles /volume] in Central venous bloodOrdered By: Balwinder Alves on 03-15-2025 CO2 [Moles/Vol] 30.1 mmol/L 21.0-32.0 [facility] Chloride assayOrdered By: Jen Alves on 03-15-2025 Chloride [Moles/Vol] 98 mmol/L 98-108 [facility] Erythrocyte distribution wid th ratioOrdered By: Balwinder Alves on 03-15-2025 Erythrocyte distribution width (RBC) [Ratio] 15.2 % High 11.6-14.6 [facility] Erythrocyte distribution wid th standard deviationOrdered By: Balwinder Alves on 03-15-2025 Erythrocyte distribution width (RBC) [Ratio] 52.1 fl High 35.1-43.9 [facility] Glomerular filtration rate ( GFR) estimation/1.73 sq m using serum, plasma, or whole bOrdered By: Balwinder Alves on 03-15-2025 GFR/1.73 sq M.predicted among non-blacks MDRD (S/P/Bld) [Vol rate/Area] 75 mL/min/{1.73_m2} >60 [facility] Comment on above: mL/min/1.73m2 CKD-EP I Creatinine Equation (2020) Hematocrit Auto (Bld) [Volum e fraction]Ordered By: Balwinder Alves on 03-15-2025 Hematocrit (Bld) [Volume fraction] 36.2 % Low 37-47 [facility] Hemoglobin measurementOrdere d By: Balwinder Alves on 03-15-2025 Hemoglobin (Bld) [Mass/Vol] 11.1 g/dL Low 12.0-15.0 [facility] MCV (mean corpuscular volume ) determinationOrdered By: Balwinder Alves on 03-15-2025 MCV (RBC) [Entitic vol] 94.3 fL 81-99 [facility] Mean corpuscular hemoglobin (MCH) determinationOrdered By: Balwinder Alves on 03-15-2025 MCH (RBC) [Entitic mass] 28.9 pg 27.0-32.0 [facility] Mean corpuscular hemoglobin concentration (MCHC) determinationOrdered By: Balwinder Alves on 03-15-2025 MCHC (RBC) [Mass/Vol] 30.7 g/dL Low 32-36 [facility] Mean platelet volume determi nationOrdered By: Balwinder Alves on 03-15-2025 Platelet mean volume (Bld) [Entitic vol] 8.4 fL 6.2-12.0 [facility] Platelet countOrdered By: Jen Alves on 03-15-2025 Platelets (Bld) [#/Vol] 177 10*3/uL 150-450 [facility] Potassium measurement (mass/ volume)Ordered By: Balwinder Alves on 03-15-2025 Potassium (Unsp spec) [Mass/Vol] 4.7 mmol/L 3.3-5.1 [facility] RBC Auto (Bld) [#/Vol]Ordere d By: Balwinder Alves on 03-15-2025 RBC (Bld) [#/Vol] 3.84 10*6/uL Low 4.2-5.4 [facility] Serum creatinine measurement (mass/volume)Ordered By: Balwinder Alves on 03-15-2025 Creatinine [Mass/Vol] 0.79 mg/dL 0.70-1.20 [facility] Serum glucose measurement (m ass/volume)Ordered By: Balwinder Alves on 03-15-2025 Glucose [Mass/Vol] 188 mg/dL High 70-99 [facility] Serum or plasma calcium jacqueline urement (mass/volume)Ordered By: Balwinder Alves on 03-15-2025 Calcium [Mass/Vol] 9.6 mg/dL 7.6-11.0 [facility] Serum or plasma urea nitroge n measurement (mass/volume)Ordered By: Balwinder Alves on 03-15-2025 Urea nitrogen [Mass/Vol] 11 mg/dL 4-19 [facility] Sodium levelOrdered By: Balwinder Alves on 03-15-2025 Sodium [Moles/Vol] 137 mmol/L 133-145 [facility] White blood cell (WBC) count Ordered By: Balwinder Alves on 03-15-2025 WBC (Bld) [#/Vol] 7.1 10*3/uL 4.4-11.0 [facility] Urine Cultureon 03-06-2025 URC #1 POSSIBLE E. COLI 0157. UNABLE TO CONFIRM, TESTING DISCONTINUED AT [facility]. Urine Culture Copy of report sent to Infection Control Printer MS#[id number] 03/04/25 1000 ANDREA. Urine Culture RESULTS CALLED TO XAVIER Flowers 03/06/25 Marek2 Lorrie Patterson. REPORT READ BACK BY . Urine Culture Urine Culture ESBL Escherichia coli [place] [employer] Count 80,000-100,000 MARKER ESBL producing OrganismA MARKER [...] S Tobramycin Islt PREM <=1 S Normal [facility] Comment on above: Performed By: #### L 501.9985, L500.4100, L500.2500, L506.1001, L100.0500 #### [facility] [address] [place], [place], [address] Bilirubin Test strip Ql (U)O rdered By: Balwinder Alves on 03-02-2025 Bilirubin Ql (U) Negative Negative [facility] Ketones Test strip Ql (U)Ord ered By: Balwinder Alves on 03-02-2025 Ketones Ql (U) Negative Negative [facility] Nitrite Test strip Ql (U)Ord ered By: Balwinder Alves on 03-02-2025 Nitrite Ql (U) Positive High Negative [facility] Protein Test strip Ql (U)Ord ered By: Balwinder Alves on 03-02-2025 Protein Ql (U) 30 mg/dl High Negative [facility] Urinalysis, Routine (Dipstic k)on 03-02-2025 BILIRUBIN URINE Negative Normal Negative [facility] Comment on above: Order Comment: SCCAT HETER SPECIMEN Performed By: #### L 501.9985, L500.4100, L500.2500, L506.1001, L100.0500 #### [facility] [address] [place], [address] Clarity (U) Sl. Cloudy Normal Clear [facility] Comment on above: Order Comment: SCCAT HETER SPECIMEN Performed By: #### L 501.9985, L500.4100, L500.2500, L506.1001, L100.0500 #### [facility] [address] [place], [address] Color (U) Yellow Normal Yellow [facility] Comment on above: Order Comment: SCCAT HETER SPECIMEN Performed By: #### L 501.9985, L500.4100, L500.2500, L506.1001, L100.0500 #### [facility] [address] [place], [address] GLUCOSE, UR Normal Normal Normal [facility] Comment on above: Order Comment: SCCAT HETER SPECIMEN Performed By: #### L 501.9985, L500.4100, L500.2500, L506.1001, L100.0500 #### [facility] [address] [place], [address] KETONE UR Negative Normal Negative [facility] Comment on above: Order Comment: SCCAT HETER SPECIMEN Performed By: #### L 501.9985, L500.4100, L500.2500, L506.1001, L100.0500 #### [facility] [address] [place], [address] LEUK ESTERASE 500 /ul Abnormal Negative [facility] Comment on above: Order Comment: SCCAT HETER SPECIMEN Performed By: #### L 501.9985, L500.4100, L500.2500, L506.1001, L100.0500 #### [facility] [address] [place], [address] Nitrite Ql (U) Positive Abnormal Negative [facility] Comment on above: Order Comment: SCCAT HETER SPECIMEN Performed By: #### L 501.9985, L500.4100, L500.2500, L506.1001, L100.0500 #### [facility] [address] [place], [address] OCCULT BLOOD-UR 50 /ul Abnormal Negative [facility] Comment on above: Order Comment: SCCAT HETER SPECIMEN Performed By: #### L 501.9985, L500.4100, L500.2500, L506.1001, L100.0500 #### [facility] [address] [place], [address] pH UR 6.0 Normal 5.0 - 8.0 [facility] Comment on above: Order Comment: SCCAT HETER SPECIMEN Performed By: #### L 501.9985, L500.4100, L500.2500, L506.1001, L100.0500 #### [facility] [address] [place], [address] PROT DIPSTX 30 mg/dl Abnormal Negative [facility] Comment on above: Order Comment: SCCAT HETER SPECIMEN Performed By: #### L 501.9985, L500.4100, L500.2500, L506.1001, L100.0500 #### [facility] [address] [place], [address] SP.GR. DIPSTX 1.010 Normal 1.002-1.030 [facility] Comment on above: Order Comment: SCCAT HETER SPECIMEN Performed By: #### L 501.9985, L500.4100, L500.2500, L506.1001, L100.0500 #### [facility] [address] [place], [address] UROBILI Normal Normal Normal [facility] Comment on above: Order Comment: SCCAT HETER SPECIMEN Performed By: #### L 501.8552, L500.4100, L500.2500, L506.1001, L100.0500 #### [facility] [address] [place], [address] Urine clarityOrdered By: Javed Alves on 03-02-2025 Clarity (U) Sl. Cloudy Clear [facility] Urine color determinationOrd ered By: Balwinder Alves on 03-02-2025 Color (U) Yellow Yellow [facility] Urine cultureOrdered By: Javed Alves on 03-02-2025 Bacteria identified Cx Nom (U) ESBL Escherichia coli Abnormal [facility] Urine glucose detectionOrder ed By: Balwinder Alves on 03-02-2025 Glucose Ql (U) Normal mg/dl Normal [facility] Urine leukocyte esterase det ection by dipstickOrdered By: Balwinder Alves on 03-02-2025 Leukocyte esterase Test strip Ql (U) 500 /ul High Negative [facility] Urine pHOrdered By: Balwinder blackman on 03-02-2025 pH (U) 6.0 [pH] 5.0 - 8.0 [facility] Urine specific gravity measu rementOrdered By: Balwinder Alves on 03-02-2025 Specific gravity (U) [Rel density] 1.010 1.002-1.030 [facility] Urine urobilinogen measureme ntOrdered By: Balwinder Alves on 03-02-2025 Urobilinogen Ql (U) Normal mg/dl Normal [facility] Urine Cultureon 02-10-2025 [facility] Copy of report sent to Infection Control Printer [id number] 02/09/25 Jamshid MENDEZ. Urine Culture RESULTS CALLED TO AUSTEN GARCIA 02/09/25 08Amari Barrera. REPORT READ BACK SAME. Urine Culture Urine Culture Urine Culture ESBL Escherichia coli [employer] Count >100,000 MARKER ESBL producing OrganismA MARKER [...] S Tobramycin Islt PREM <=1 S Normal [facility] Comment on above: Performed By: #### L 501.9985, L500.4100, L500.2500, L506.1001, L100.0500 #### [facility] [address] [place], [address] Bilirubin Test strip Ql (U)O rdered By: Balwinder Alves on 02-07-2025 Bilirubin Ql (U) Negative Negative [facility] Ketones Test strip Ql (U)Ord ered By: Balwinder Alves on 02-07-2025 Ketones Ql (U) Negative Negative [facility] Nitrite Test strip Ql (U)Ord ered By: Balwinder Alves on 02-07-2025 Nitrite Ql (U) Positive High Negative [facility] Protein Test strip Ql (U)Ord ered By: Balwinder Alves on 02-07-2025 Protein Ql (U) 15 mg/dl High Negative [facility] Urinalysis, Routine (Dipstic k)on 02-07-2025 Clarity (U) Clear Normal Clear [facility] Comment on above: Order Comment: ALFA TER SPECIMEN Performed By: #### L 501.9985, L500.4100, L500.2500, L506.1001, L100.0500 #### [facility] [address] [place], [address] Color (U) Yellow Normal Yellow [facility] Comment on above: Order Comment: ALFA TER SPECIMEN Performed By: #### L 501.9985, L500.4100, L500.2500, L506.1001, L100.0500 #### [facility] [address] [place], [address] BILIRUBIN URINE Negative Normal Negative [facility] Comment on above: Order Comment: ALFA TER SPECIMEN Performed By: #### L 501.9985, L500.4100, L500.2500, L506.1001, L100.0500 #### [facility] [address] [place], [address] GLUCOSE, UR Normal Normal Normal [facility] Comment on above: Order Comment: ALFA TER SPECIMEN Performed By: #### L 501.9985, L500.4100, L500.2500, L506.1001, L100.0500 #### [facility] [address] [place], [address] KETONE UR Negative Normal Negative [facility] Comment on above: Order Comment: ALFA TER SPECIMEN Performed By: #### L 501.9985, L500.4100, L500.2500, L506.1001, L100.0500 #### [facility] [address] [place], [address] LEUK ESTERASE 500 /ul Abnormal Negative [facility] Comment on above: Order Comment: ALFA TER SPECIMEN Performed By: #### L 501.9985, L500.4100, L500.2500, L506.1001, L100.0500 #### [facility] [address] [place], [address] Nitrite Ql (U) Positive Abnormal Negative [facility] Comment on above: Order Comment: ALFA TER SPECIMEN Performed By: #### L 501.9985, L500.4100, L500.2500, L506.1001, L100.0500 #### [facility] [address] [place], [address] OCCULT BLOOD-UR 25 /ul Abnormal Negative [facility] Comment on above: Order Comment: ALFA TER SPECIMEN Performed By: #### L 501.9985, L500.4100, L500.2500, L506.1001, L100.0500 #### [facility] [address] [place], [address] pH UR 6.5 Normal 5.0 - 8.0 [facility] Comment on above: Order Comment: ALFA TER SPECIMEN Performed By: #### L 501.9985, L500.4100, L500.2500, L506.1001, L100.0500 #### [facility] [address] [place], [address] PROT DIPSTX 15 mg/dl Abnormal Negative [facility] Comment on above: Order Comment: ALFA TER SPECIMEN Performed By: #### L 501.9985, L500.4100, L500.2500, L506.1001, L100.0500 #### [facility] [address] [place], [address] SP.GR. DIPSTX 1.005 Normal 1.002-1.030 [facility] Comment on above: Order Comment: ALFA TER SPECIMEN Performed By: #### L 501.9985, L500.4100, L500.2500, L506.1001, L100.0500 #### [facility] [address] [place], [address] UROBILI Normal Normal Normal [facility] Comment on above: Order Comment: ALFA TER SPECIMEN Performed By: #### L 501.9985, L500.4100, L500.2500, L506.1001, L100.0500 #### [facility] [address] [place], [address] Urine clarityOrdered By: Javed Alves on 02-07-2025 Clarity (U) Clear Clear [facility] Urine color determinationOrd ered By: Balwinder Alves on 02-07-2025 Color (U) Yellow Yellow [facility] Urine cultureOrdered By: Javed Alves on 02-07-2025 Bacteria identified Cx Nom (U) ESBL Escherichia coli Abnormal [facility] Urine glucose detectionOrder ed By: Balwinder Alves on 02-07-2025 Glucose Ql (U) Normal mg/dl Normal [facility] Urine leukocyte esterase det ection by dipstickOrdered By: Balwinder Alves on 02-07-2025 Leukocyte esterase Test strip Ql (U) 500 /ul High Negative [facility] Urine pHOrdered By: Balwinder blackman on 02-07-2025 pH (U) 6.5 [pH] 5.0 - 8.0 [facility] Urine specific gravity measu rementOrdered By: Balwinder Alves on 02-07-2025 Specific gravity (U) [Rel density] 1.005 1.002-1.030 [facility] Urine urobilinogen measureme ntOrdered By: Balwinder Alves on 02-07-2025 Urobilinogen Ql (U) Normal mg/dl Normal [facility] Urine Cultureon 01-27-2025 URC STRAIGHT CATH #1 Possible E.coli 0157. Confirmation testing unable to be performed, test discontinued at [facility]. Urine Culture RESULTS [facility] 01/27/25 1041 Lorrie Patterson. REPORT READ BACK BY . Urine Culture Copy of report sent to Infection Control Printer MS#[id number] 01/27/25 1041 ESSENCE. Urine Culture ESBL Escherichia coli [employer] Count 80,000-100,000 MARKER ESBL producing OrganismA MARKER ESBL producing OrganismA [employer] Count 50,000-80,000 Proteus mirabilis Amikacin Islt PREM [...] TMP SMX Islt PREM <=20 S Normal [facility] Comment on above: Performed By: #### L 501.9985, L500.4100, L500.2500, L506.1001, L100.0500 #### [facility] [address] [place], [address] Urinalysis, Completeon 01-24 BILIRUBIN URINE Negative Normal Negative [facility] Comment on above: Order Comment: STRAI GHT CATHCATHETER SPECIMEN Performed By: #### L 501.9985, L500.4100, L500.2500, L506.1001, L100.0500 #### [facility] [address] [place], [address] Clarity (U) Sl. Cloudy Normal Clear [facility] Comment on above: Order Comment: STRAI GHT CATHCATHETER SPECIMEN Performed By: #### L 501.9985, L500.4100, L500.2500, L506.1001, L100.0500 #### [facility] [address] [place], [address] Color (U) Yellow Normal Yellow [facility] Comment on above: Order Comment: STRAI GHT CATHCATHETER SPECIMEN Performed By: #### L 501.9985, L500.4100, L500.2500, L506.1001, L100.0500 #### [facility] [address] [place], [address] GLUCOSE, UR Normal Normal Normal [facility] Comment on above: Order Comment: STRAI GHT CATHCATHETER SPECIMEN Performed By: #### L 501.9985, L500.4100, L500.2500, L506.1001, L100.0500 #### [facility] [address] [place], [address] KETONE UR Negative Normal Negative [facility] Comment on above: Order Comment: STRAI GHT CATHCATHETER SPECIMEN Performed By: #### L 501.9985, L500.4100, L500.2500, L506.1001, L100.0500 #### [facility] [address] [place], [address] LEUK ESTERASE 500 /ul Abnormal Negative [facility] Comment on above: Order Comment: STRAI GHT CATHCATHETER SPECIMEN Performed By: #### L 501.9985, L500.4100, L500.2500, L506.1001, L100.0500 #### [facility] [address] [place], [address] Nitrite Ql (U) Positive Abnormal Negative [facility] Comment on above: Order Comment: STRAI GHT CATHCATHETER SPECIMEN Performed By: #### L 501.9985, L500.4100, L500.2500, L506.1001, L100.0500 #### [facility] [address] [place], [address] OCCULT BLOOD-UR 50 /ul Abnormal Negative [facility] Comment on above: Order Comment: STRAI GHT CATHCATHETER SPECIMEN Performed By: #### L 501.9985, L500.4100, L500.2500, L506.1001, L100.0500 #### [facility] [address] [place], [address] pH UR 6.5 Normal 5.0 - 8.0 [facility] Comment on above: Order Comment: STRAI GHT CATHCATHETER SPECIMEN Performed By: #### L 501.9985, L500.4100, L500.2500, L506.1001, L100.0500 #### [facility] [address] [place], [address] PROT DIPSTX 15 mg/dl Abnormal Negative [facility] Comment on above: Order Comment: STRAI GHT CATHCATHETER SPECIMEN Performed By: #### L 501.9985, L500.4100, L500.2500, L506.1001, L100.0500 #### [facility] [address] [place], [place], [address] SP.GR. DIPSTX 1.010 Normal 1.002-1.030 [facility] Comment on above: Order Comment: STRAI GHT CATHCATHETER SPECIMEN Performed By: #### L 501.9985, L500.4100, L500.2500, L506.1001, L100.0500 #### [facility] [address] [place], [address] UROBILI Normal Normal Normal [facility] Comment on above: Order Comment: STRAI GHT CATHCATHETER SPECIMEN Performed By: #### L 501.9985, L500.4100, L500.2500, L506.1001, L100.0500 #### [facility] [address] [place], [address] Bilirubin Test strip Ql (U)O rdered By: Balwinder Alves on 01-23-2025 Bilirubin Ql (U) Negative Negative [facility] Epithelial cells.squamous LM Ql (Urine sed)Ordered By: Balwinder Alves on 01-23-2025 Epithelial cells.squamous LM.HPF (Urine sed) [#/Area] 0 /[HPF] 5-10 [facility] Glucose Ql (U)Ordered By: Jen Alves on 01-23-2025 Urine Glucose (UA) Normal mg/dl Normal [facility] Ketones Test strip Ql (U)Ord ered By: Balwinder Alves on 01-23-2025 Ketones Ql (U) Negative Negative [facility] Microscopic analysis of urin e for red blood cells (RBC)Ordered By: Balwinder Alves on 01-23-2025 Microscopic analysis of urine for red blood cells (RBC) 0-5 SEEN /hpf 0-5 [facility] Urine RBC 0-5 SEEN /hpf 0-5 [facility] Mucus LM Ql (Urine sed)Order ed By: Balwinder Alves on 01-23-2025 Mucus Ql (Urine sed) 0 SEEN /hpf [facility] Nitrite Test strip Ql (U)Ord ered By: Balwinder Alves on 01-23-2025 Nitrite Ql (U) Positive High Negative [facility] Protein Test strip Ql (U)Ord ered By: Balwinder Alves on 01-23-2025 Protein Ql (U) 15 mg/dl High Negative [facility] Squamous epithelial cells de tection in urine sediment by light microscopyOrdered By: Balwinder Alves on 01-23-2025 Epithelial cells.squamous LM Ql (Urine sed) 0-5 SEEN /hpf 5-10 [facility] Urine blood detectionOrdered By: Balwinder Alves on 01-23-2025 Urine Occult Blood 50 /ul High Negative [facility] Urine clarityOrdered By: Javed Alves on 01-23-2025 Clarity (U) Sl. Cloudy Clear [facility] Urine color determinationOrd ered By: Balwinder Alves on 01-23-2025 Color (U) Yellow Yellow [facility] Urine cultureOrdered By: Javed Alves on 01-23-2025 Bacteria identified Cx Nom (U) ESBL Escherichia coli Abnormal [facility] Bacteria identified Cx Nom (U) Proteus mirabilis Abnormal [facility] Urine glucose detectionOrder ed By: Balwinder Alves on 01-23-2025 Glucose Ql (U) Normal mg/dl Normal [facility] Urine leukocyte esterase det ection by dipstickOrdered By: Balwinder Alves on 01-23-2025 Leukocyte esterase Test strip Ql (U) 500 /ul High Negative [facility] Urine pHOrdered By: Balwinder blackman on 01-23-2025 pH (U) 6.5 [pH] 5.0 - 8.0 [facility] Urine sediment bacteria coun t by microscopy (number/high power field)Ordered By: Balwinder Alves on 01-23-2025 Bacteria LM.HPF (Urine sed) [#/Area] 2 /[HPF] None Seen [facility] Urine specific gravity measu rementOrdered By: Balwinder Alves on 01-23-2025 Specific gravity (U) [Rel density] 1.010 1.002-1.030 [facility] Urine urobilinogen measureme ntOrdered By: Balwinder Alves on 01-23-2025 Urobilinogen Ql (U) Normal mg/dl Normal [facility] Urobilinogen Ql (U)Ordered B y: Balwinder Alves on 01-23-2025 Urine Urobilinogen Normal mg/dl Normal [facility] White blood cell countOrdere d By: Balwinder Alves on 01-23-2025 Urine WBC 5-10 SEEN /hpf 0-5 [facility] White blood cell count 5-10 SEEN /hpf 0-5 [facility] Urine Cultureon 01-13-2025 URC #1 POSSIBLE ECOLI 0157. Unable to send to [facility] for confirmation testing due to new [facility] policies regarding serotyping and virulence profiling. Urine Culture Copy of report sent to Infection Control Printer [id number] 01/11/25 3078 ASNIPES. ESBL Escherichia coli [employer] Count 50,000-80,000 MARKER ESBL producing OrganismA MARKER ESBL producing OrganismA [employer] Count 50,000-80,000 Escherichia coli [employer] Count 50,000-80,000 ESBL Escherichia coli: REACTION Proteus [...] TMP SMX Islt PREM <=20 S Normal [facility] Comment on above: Performed By: #### L 501.9985, L500.4100, L500.2500, L506.1001, L100.0500 #### [facility] [address] [place], [address] Bilirubin Test strip Ql (U)O rdered By: Balwinder Alves on 01-09-2025 Bilirubin Ql (U) Negative Negative [facility] Glucose Ql (U)Ordered By: Jen Alves on 01-09-2025 Urine Glucose (UA) Normal mg/dl Normal [facility] Ketones Test strip Ql (U)Ord ered By: Balwinder Alves on 01-09-2025 Ketones Ql (U) Negative Negative [facility] Nitrite Test strip Ql (U)Ord ered By: Balwinder Alves on 01-09-2025 Nitrite Ql (U) Positive High Negative [facility] Protein Test strip Ql (U)Ord ered By: Balwinder Alves on 01-09-2025 Protein Ql (U) 30 mg/dl High Negative [facility] Urinalysis, Routine (Dipstic k)on 01-09-2025 BILIRUBIN URINE Negative Normal Negative [facility] Comment on above: Order Comment: ALFA TER SPECIMEN Performed By: #### L 400.2010, #### [facility] [address] [place], [address] Clarity (U) Cloudy Normal Clear [facility] Comment on above: Order Comment: ALFA TER SPECIMEN Performed By: #### L 400.2010, #### [facility] [address] [place], [address] Color (U) Yellow Normal Yellow [facility] Comment on above: Order Comment: ALFA TER SPECIMEN Performed By: #### L 400.2010, #### [facility] [address] [place], [address] GLUCOSE, UR Normal Normal Normal [facility] Comment on above: Order Comment: ALFA TER SPECIMEN Performed By: #### L 400.2010, #### [facility] [address] [place], [address] KETONE UR Negative Normal Negative [facility] Comment on above: Order Comment: ALFA TER SPECIMEN Performed By: #### L 400.2010, #### [facility] [address] [place], [address] LEUK ESTERASE 500 /ul Abnormal Negative [facility] Comment on above: Order Comment: ALFA TER SPECIMEN Performed By: #### L 400.2010, #### [facility] [address] [place], [address] Nitrite Ql (U) Positive Abnormal Negative [facility] Comment on above: Order Comment: ALFA TER SPECIMEN Performed By: #### L 400.2010, #### [facility] [address] [place], [address] OCCULT BLOOD-UR 150 /ul Abnormal Negative [facility] Comment on above: Order Comment: ALFA TER SPECIMEN Performed By: #### L 400.2010, #### [facility] [address] [place], [address] pH UR 6.5 Normal 5.0 - 8.0 [facility] Comment on above: Order Comment: ALFA TER SPECIMEN Performed By: #### L 400.2010, #### [facility] [address] [place], [address] PROT DIPSTX 30 mg/dl Abnormal Negative [facility] Comment on above: Order Comment: ALFA TER SPECIMEN Performed By: #### L 400.2010, #### [facility] [address] [place], [address] SP.GR. DIPSTX 1.010 Normal 1.002-1.030 [facility] Comment on above: Order Comment: ALFA TER SPECIMEN Performed By: #### L 400.2010, #### [facility] [address] [place], [address] UROBILI Normal Normal Normal [facility] Comment on above: Order Comment: ALFA TER SPECIMEN Performed By: #### L 400.2010, #### [facility] [address] [place], [address] Urine blood detectionOrdered By: Balwinder Alves on 01-09-2025 Urine Occult Blood 150 /ul High Negative [facility] Urine clarityOrdered By: Javed Alves on 01-09-2025 Clarity (U) Cloudy Clear [facility] Urine color determinationOrd ered By: Balwinder Alves on 01-09-2025 Color (U) Yellow Yellow [facility] Urine cultureOrdered By: Javed Alves on 01-09-2025 Bacteria identified Cx Nom (U) ESBL Escherichia coli Abnormal [facility] Bacteria identified Cx Nom (U) Escherichia coli Abnormal [facility] Bacteria identified Cx Nom (U) Proteus mirabilis Abnormal [facility] Urine glucose detectionOrder ed By: Balwinder Alves on 01-09-2025 Glucose Ql (U) Normal mg/dl Normal [facility] Urine leukocyte esterase det ection by dipstickOrdered By: Balwinder Alves on 01-09-2025 Leukocyte esterase Test strip Ql (U) 500 /ul High Negative [facility] Urine pHOrdered By: Balwinder blackman on 01-09-2025 pH (U) 6.5 [pH] 5.0 - 8.0 [facility] Urine specific gravity measu rementOrdered By: Balwinder Alves on 01-09-2025 Specific gravity (U) [Rel density] 1.010 1.002-1.030 [facility] Urine urobilinogen measureme ntOrdered By: Balwnider Alves on 01-09-2025 Urobilinogen Ql (U) Normal mg/dl Normal [facility] Urobilinogen Ql (U)Ordered B y: Balwinder Alves on 01-09-2025 Urine Urobilinogen Normal mg/dl Normal [facility] Urine Cultureon 01-07-2025 URC #2 Possible E.coli 0157. Unable to send to [facility] for confirmation testing due to new [facility] policies regarding serotyping and virulence profiling. Urine Culture Copy of report sent to Infection Control Printer [id number] 01/06/25 131Shannan LIBERTADTONY. Urine Culture RESULTS CALLED TO TRISH BOYCE 01/06/25 1321 Alesia Barrera. REPORT READ BACK . Proteus mirabilis [employer] Count 50,000-80,000 ESBL Escherichia coli ESBL Escherichia [...] <=0.25 Tobramycin Islt PREM <=1 S Normal [facility] Comment on above: Performed By: #### L 501.9985, L500.4100, L500.2500, L506.1001, L100.0500 #### [facility] [address] [place], [address] Urinalysis, Routine (Dipstic k)on 01-03-2025 BILIRUBIN URINE Negative Normal Negative [facility] Comment on above: Order Comment: CLEAN CATCH Performed By: #### L 501.9985, L500.4100, L500.2500, L506.1001, L100.0500 #### [facility] [address] [place], [address] Clarity (U) Sl. Cloudy Normal Clear [facility] Comment on above: Order Comment: CLEAN CATCH Performed By: #### L 501.9985, L500.4100, L500.2500, L506.1001, L100.0500 #### [facility] [address] [place], [address] Color (U) Yellow Normal Yellow [facility] Comment on above: Order Comment: CLEAN CATCH Performed By: #### L 501.9985, L500.4100, L500.2500, L506.1001, L100.0500 #### [facility] [address] [place], [address] GLUCOSE, UR Normal Normal Normal [facility] Comment on above: Order Comment: CLEAN CATCH Performed By: #### L 501.9985, L500.4100, L500.2500, L506.1001, L100.0500 #### [facility] [address] [place], [address] KETONE UR Negative Normal Negative [facility] Comment on above: Order Comment: CLEAN CATCH Performed By: #### L 501.9985, L500.4100, L500.2500, L506.1001, L100.0500 #### [facility] [address] [place], [address] LEUK ESTERASE 500 /ul Abnormal Negative [facility] Comment on above: Order Comment: CLEAN CATCH Performed By: #### L 501.9985, L500.4100, L500.2500, L506.1001, L100.0500 #### [facility] [address] [place], [address] Nitrite Ql (U) Positive Abnormal Negative [facility] Comment on above: Order Comment: CLEAN CATCH Performed By: #### L 501.9985, L500.4100, L500.2500, L506.1001, L100.0500 #### [facility] [address] [place], [address] OCCULT BLOOD-UR 150 /ul Abnormal Negative [facility] Comment on above: Order Comment: CLEAN CATCH Performed By: #### L 501.9985, L500.4100, L500.2500, L506.1001, L100.0500 #### [facility] [address] [place], [address] pH UR 6.5 Normal 5.0 - 8.0 [facility] Comment on above: Order Comment: CLEAN CATCH Performed By: #### L 501.9985, L500.4100, L500.2500, L506.1001, L100.0500 #### [facility] [address] [place], [address] PROT DIPSTX 30 mg/dl Abnormal Negative [facility] Comment on above: Order Comment: CLEAN CATCH Performed By: #### L 501.9985, L500.4100, L500.2500, L506.1001, L100.0500 #### [facility] [address] [place], [address] SP.GR. DIPSTX 1.010 Normal 1.002-1.030 [facility] Comment on above: Order Comment: CLEAN CATCH Performed By: #### L 501.9985, L500.4100, L500.2500, L506.1001, L100.0500 #### [facility] [address] [place], [address] UROBILI Normal Normal Normal [facility] Comment on above: Order Comment: CLEAN CATCH Performed By: #### L 501.9985, L500.4100, L500.2500, L506.1001, L100.0500 #### [facility] [place] [address] [place], [address] Bilirubin Test strip Ql (U)O rdered By: Balwinder Alves on 01-02-2025 Bilirubin Ql (U) Negative Negative [facility] Glucose Ql (U)Ordered By: Jen Alves on 01-02-2025 Urine Glucose (UA) Normal mg/dl Normal [facility] Ketones Test strip Ql (U)Ord ered By: Balwinder Alves on 01-02-2025 Ketones Ql (U) Negative Negative [facility] Nitrite Test strip Ql (U)Ord ered By: Balwinder Alves on 01-02-2025 Nitrite Ql (U) Positive High Negative [facility] Protein Test strip Ql (U)Ord ered By: Balwinder Alves on 01-02-2025 Protein Ql (U) 30 mg/dl High Negative [facility] Urine blood detectionOrdered By: Balwinder Alves on 01-02-2025 Urine Occult Blood 150 /ul High Negative [facility] [facility] clarityOrdered By: Javed Alves on 01-02-2025 Clarity (U) Sl. Cloudy Clear [facility] Urine color determinationOrd ered By: Balwinder Alves on 01-02-2025 Color (U) Yellow Yellow [facility] Urine cultureOrdered By: Javed Alves on 01-02-2025 Bacteria identified Cx Nom (U) Proteus mirabilis Abnormal [facility] Bacteria identified Cx Nom (U) ESBL Escherichia coli Abnormal [facility] Urine glucose detectionOrder ed By: Balwinder Alves on 01-02-2025 Glucose Ql (U) Normal mg/dl Normal [facility] Urine leukocyte esterase det ection by dipstickOrdered By: Balwinder Alves on 01-02-2025 Leukocyte esterase Test strip Ql (U) 500 /ul High Negative [facility] Urine pHOrdered By: Balwinder blackman on 01-02-2025 pH (U) 6.5 [pH] 5.0 - 8.0 [facility] Urine specific gravity measu rementOrdered By: Balwinder Alves on 01-02-2025 Specific gravity (U) [Rel density] 1.010 1.002-1.030 [facility] Urine urobilinogen measureme ntOrdered By: Balwinder Alves on 01-02-2025 Urobilinogen Ql (U) Normal mg/dl Normal [facility] Urobilinogen Ql (U)Ordered B y: Balwinder Alves on 01-02-2025 Urine Urobilinogen Normal mg/dl Normal [facility] Absolute lymphocyte countOrd ered By: Balwinder Alves on 12-26-2024 Lymphocytes Auto (Unsp spec) [#/Vol] 1.77 10*3/uL 0.83-4.51 [facility] Absolute neutrophil countOrd ered By: Balwinder Alves on 12-26-2024 Neutrophils (Bld) [#/Vol] 4.6 10*3/uL 2.0-7.7 [facility] Anion gap in Serum or Plasma Ordered By: Balwinder Alves on 12-26-2024 Anion gap [Moles/Vol] 9 mmol/L 5- [facility] Automated lymphocyte count a s percentage of total leukocytesOrdered By: Balwinder Alves on 12-26-2024 Lymphocytes/100 WBC Auto (Unsp spec) 24.8 % - [facility] BUN/creatinine ratioOrdered By: Balwinder Alves on 12-26-2024 Urea nitrogen/Creatinine [Mass ratio] 12.2 mg/mg 10- [facility] Basic Metabolic Profile (BMP )on 12-26-2024 BUN/CRE 12.2 RATIO Normal 07-24 [facility] Comment on above: Order Comment: 102-2 Performed By: #### L [id number], L500.4100, L500.2500, L506.1001, L100.0500 #### [facility] [address] [place], [address] Calcium [Mass/Vol] 9.1 mg/dL Normal 7.6-11.0 [facility] Comment on above: Order Comment: 102-2 Performed By: #### L [id number], L500.4100, L500.2500, L506.1001, L100.0500 #### [facility] [address] [place], [address] Chloride [Moles/Vol] 99 mmol/L Normal 98-108 [facility] Comment on above: Order Comment: 102-2 Performed By: #### L [id number], L500.4100, L500.2500, L506.1001, L100.0500 #### [facility] [address] [place], [address] CO2 [Moles/Vol] 29.0 mmol/L Normal 21.0-32.0 [facility] Comment on above: Order Comment: 102-2 Performed By: #### L [id number], L500.4100, L500.2500, L506.1001, L100.0500 #### [facility] [address] [place], [address] Creatinine [Mass/Vol] 0.67 mg/dL Low 0.70-1.20 [facility] Comment on above: Order Comment: 102-2 Performed By: #### L [id number], L500.4100, L500.2500, L506.1001, L100.0500 #### [facility] [address] [place], [address] GAP 9 Normal 5-15 [facility] Comment on above: Order Comment: 102-2 Performed By: #### L [id number], L500.4100, L500.2500, L506.1001, L100.0500 #### [facility] [address] [place], [address] GFR/1.73 sq M.predicted among non-blacks MDRD (S/P/Bld) [Vol rate/Area] 88 mL/min/{1.73_m2} Normal >60 [facility] Comment on above: Order Comment: 102-2 Result Comment: mL/m in/1.73m2 CKD-EPI Creatinine Equation (2020) Performed By: #### L [id number], L500.4100, L500.2500, L506.1001, L100.0500 #### [facility] [address] [place], [address] Glucose [Mass/Vol] 215 mg/dL High 70-99 [facility] Comment on above: Order Comment: 102-2 Performed By: #### L [id number], L500.4100, L500.2500, L506.1001, L100.0500 #### [facility] [address] [place], [address] Potassium [Moles/Vol] 4.6 mmol/L Normal 3.3-5.1 [facility] Comment on above: Order Comment: 102-2 Performed By: #### L [id number], L500.4100, L500.2500, L506.1001, L100.0500 #### [facility] [address] [place], [address] Sodium [Moles/Vol] 137 mmol/L Normal 133-145 [facility] Comment on above: Order Comment: 102-2 Performed By: #### L [id number], L500.4100, L500.2500, L506.1001, L100.0500 #### [facility] [address] [place], [address] Urea nitrogen [Mass/Vol] 8 mg/dL Normal 4-19 [facility] Comment on above: Order Comment: 102-2 Performed By: #### L [id number], L500.4100, L500.2500, L506.1001, L100.0500 #### [facility] [address] [place], [address] Basophil percentageOrdered B y: Balwinder Alves on 12-26-2024 Basophils/100 WBC (Bld) 0.6 % 0-1 [facility] CBC W/Diff, Automatedon 12-04 Absolute Lymph 1.77 X10 3/uL Normal 0.83-4.51 [facility] Comment on above: Order Comment: 102-2 Performed By: #### L [id number], L500.4100, L500.2500, L506.1001, L100.0500 #### [facility] [address] [place], [address] Absolute Neut 4.6 X10 3/uL Normal 2.0-7.7 [facility] Comment on above: Order Comment: 102-2 Performed By: #### L [id number], L500.4100, L500.2500, L506.1001, L100.0500 #### [facility] [address] [place], [address] Basophils/100 WBC (Bld) 0.6 % Normal 0-1 [facility] Comment on above: Order Comment: 102-2 Performed By: #### L [id number], L500.4100, L500.2500, L506.1001, L100.0500 #### [facility] [address] [place], [address] Eosinophils/100 WBC (Bld) 2.9 % Normal 0-5 [facility] Comment on above: Order Comment: 102-2 Performed By: #### L [id number], L500.4100, L500.2500, L506.1001, L100.0500 #### [facility] [address] [place], [address] Erythrocyte distribution width (RBC) [Ratio] 13.9 % Normal 11.6-14.6 [facility] Comment on above: Order Comment: 102-2 Performed By: #### L [id number], L500.4100, L500.2500, L506.1001, L100.0500 #### [facility] [address] [place], [address] Hematocrit (Bld) [Volume fraction] 35.6 % Low 37-47 [facility] Comment on above: Order Comment: 102-2 Performed By: #### L [id number], L500.4100, L500.2500, L506.1001, L100.0500 #### [facility] [address] [place], [address] Hemoglobin (Bld) [Mass/Vol] 10.9 g/dL Low 12.0-15.0 [facility] Comment on above: Order Comment: 102-2 Performed By: #### L [id number], L500.4100, L500.2500, L506.1001, L100.0500 #### [facility] [address] [place], [address] IG% 0.700 Normal 0.0-0.9 [facility] Comment on above: Order Comment: 102-2 Result Comment: IG% - Immature Granulocytes (promyelocytes, myelocytes and metamyelocytes) > 1% indicates that a LEFT SHIFT is Present. Performed By: #### L [id number], L500.4100, L500.2500, L506.1001, L100.0500 #### [facility] [address] [place], [address] Lymphocytes/100 WBC (Bld) 24.8 % Normal 19-41 [facility] Comment on above: Order Comment: 102-2 Performed By: #### L [id number], L500.4100, L500.2500, L506.1001, L100.0500 #### [facility] [address] [place], [address] MCH (RBC) [Entitic mass] 28.8 pg Normal 27.0-32.0 [facility] Comment on above: Order Comment: 102-2 Performed By: #### L [id number], L500.4100, L500.2500, L506.1001, L100.0500 #### [facility] [address] [place], [address] MCHC (RBC) [Mass/Vol] 30.6 g/dL Low 32-36 [facility] Comment on above: Order Comment: 102-2 Performed By: #### L [id number], L500.4100, L500.2500, L506.1001, L100.0500 #### [facility] [address] [place], [address] MCV (RBC) [Entitic vol] 93.9 fL Normal 81-99 [facility] Comment on above: Order Comment: 102-2 Performed By: #### L [id number], L500.4100, L500.2500, L506.1001, L100.0500 #### [facility] [address] [place], [address] Monocytes/100 WBC (Bld) 6.3 % Normal 0-10 [facility] Comment on above: Order Comment: 102-2 Performed By: #### L [id number], L500.4100, L500.2500, L506.1001, L100.0500 #### [facility] [address] [place], [address] Neutrophils/100 WBC (Bld) 64.7 % Normal 47-70 [facility] Comment on above: Order Comment: 102-2 Performed By: #### L [id number], L500.4100, L500.2500, L506.1001, L100.0500 #### [facility] [address] [place], [address] Nucleated RBC (Bld) [#/Vol] 0 10*3/uL Normal 0-5 [facility] Comment on above: Order Comment: 102-2 Performed By: #### L [id number], L500.4100, L500.2500, L506.1001, L100.0500 #### [facility] [address] [place], [address] Platelet mean volume (Bld) [Entitic vol] 8.6 fL Normal 6.2-12.0 [facility] Comment on above: Order Comment: 102-2 Performed By: #### L [id number], L500.4100, L500.2500, L506.1001, L100.0500 #### [facility] [address] [place], [address] Platelets (Bld) [#/Vol] 221 10*3/uL Normal 150-450 [facility] Comment on above: Order Comment: 102-2 Performed By: #### L [id number], L500.4100, L500.2500, L506.1001, L100.0500 #### [facility] [address] [place], [address] RBC (Bld) [#/Vol] 3.79 10*6/uL Low 4.2-5.4 [facility] Comment on above: Order Comment: 102-2 Performed By: #### L 501.9985, L500.4100, L500.2500, L506.1001, L100.0500 #### [facility] [address] [place], [address] RDW SD 47.6 fl High 35.1-43.9 [facility] Comment on above: Order Comment: 102-2 Performed By: #### L [id number], L500.4100, L500.2500, L506.1001, L100.0500 #### [facility] [address] [place], [address] WBC (Bld) [#/Vol] 7.1 10*3/uL Normal 4.4-11.0 [facility] Comment on above: Order Comment: 102-2 Performed By: #### L [id number], L500.4100, L500.2500, L506.1001, L100.0500 #### [facility] [address] [place], [address] Carbon dioxide, total [Moles /volume] in Central venous bloodOrdered By: Balwinder Alves on 12-26-2024 CO2 [Moles/Vol] 29.0 mmol/L 21.0-32.0 [facility] Chloride assayOrdered By: Jen Alves on 12-26-2024 Chloride [Moles/Vol] 99 mmol/L 98-108 [facility] Eosinophil percentageOrdered By: Balwinder Alves on 12-26-2024 Eosinophils/100 WBC (Bld) 2.9 % 0-5 [facility] Erythrocyte distribution wid th (RBC) [Ratio]Ordered By: Balwinder Alves on 12-26-2024 Erythrocyte distribution width (RBC) [Entitic vol] 47.6 fL High 35.1-43.9 [facility] Erythrocyte distribution wid th ratioOrdered By: Balwinder Alves on 12-26-2024 Erythrocyte distribution width (RBC) [Ratio] 13.9 % 11.6-14.6 [facility] Erythrocyte distribution wid th standard deviationOrdered By: Balwinder Alves on 12-26-2024 Erythrocyte distribution width (RBC) [Ratio] 47.6 fl High 35.1-43.9 [facility] GFR/1.73 sq M.predicted [place] non-blacks MDRD (S/P/Bld) [Vol rate/Area]Ordered By: Balwinder Alves on 12-26-2024 Estimated GFR (MDRD) Non-Af Amer 88 >60 [facility] Comment on above: mL/min/1.73m2 CKD-EP I Creatinine Equation (2020) Glomerular filtration rate ( GFR) estimation/1.73 sq m using serum, plasma, or whole bOrdered By: Balwinder Alves on 12-26-2024 GFR/1.73 sq M.predicted among non-blacks MDRD (S/P/Bld) [Vol rate/Area] 88 mL/min/{1.73_m2} >60 [facility] Comment on above: mL/min/1.73m2 CKD-EP I Creatinine Equation (2020) Hematocrit Auto (Bld) [Volum e fraction]Ordered By: Balwinder Alves on 12-26-2024 Hematocrit (Bld) [Volume fraction] 35.6 % Low 37-47 [facility] Hemoglobin measurementOrdere d By: Balwinder Alves on 12-26-2024 Hemoglobin (Bld) [Mass/Vol] 10.9 g/dL Low 12.0-15.0 [facility] Immature granulocytes/100 WB C Auto (Bld)Ordered By: Balwinder Alves on 12-26-2024 Immature granulocytes/100 WBC (Bld) 0.700 % 0.0-0.9 [facility] Comment on above: IG% - Immature Granu locytes (promyelocytes, myelocytes and metamyelocytes) > 1% indicates that a LEFT SHIFT is Present. Lymphocytes Auto (Unsp spec) [#/Vol]Ordered By: Balwinder Alves on 12-26-2024 Lymphocytes (Bld) [#/Vol] 1.77 10*3/uL 0.83-4.51 [facility] Lymphocytes/100 WBC Auto (Un sp spec)Ordered By: Balwinder Alves on 12-26-2024 Lymphocytes/100 WBC (Bld) 24.8 % 19-41 [facility] MCV (mean corpuscular volume ) determinationOrdered By: Balwinder Alves on 12-26-2024 MCV (RBC) [Entitic vol] 93.9 fL 81-99 [facility] Mean corpuscular hemoglobin (MCH) determinationOrdered By: Balwinder Alves on 12-26-2024 MCH (RBC) [Entitic mass] 28.8 pg 27.0-32.0 [facility] Mean corpuscular hemoglobin concentration (MCHC) determinationOrdered By: Balwinder Alves on 12-26-2024 MCHC (RBC) [Mass/Vol] 30.6 g/dL Low 32-36 [facility] Mean platelet volume determi nationOrdered By: Balwinder Alves on 12-26-2024 Platelet mean volume (Bld) [Entitic vol] 8.6 fL 6.2-12.0 [facility] Monocyte percentageOrdered B y: Balwinder Alves on 12-26-2024 Monocytes/100 WBC (Bld) 6.3 % 0-10 [facility] Neutrophil percentageOrdered By: Balwinder Alves on 12-26-2024 Neutrophils/100 WBC (Bld) 64.7 % 47-70 [facility] Nucleated red blood cell per centageOrdered By: Balwinder Alves on 12-26-2024 Nucleated RBC/100 WBC (Bld) [Ratio] 0 % 0-5 [facility] Platelet countOrdered By: Jen Alves on 12-26-2024 Platelets (Bld) [#/Vol] 221 10*3/uL 150-450 [facility] Potassium (Unsp spec) [Mass/ Vol]Ordered By: Balwinder Alves on 12-26-2024 Potassium [Moles/Vol] 4.6 mmol/L 3.3-5.1 [facility] Potassium measurement (mass/ volume)Ordered By: Balwinder Alves on 12-26-2024 Potassium (Unsp spec) [Mass/Vol] 4.6 mmol/L 3.3-5.1 [facility] RBC Auto (Bld) [#/Vol]Ordere d By: Balwinder Alves on 12-26-2024 RBC (Bld) [#/Vol] 3.79 10*6/uL Low 4.2-5.4 [facility] Serum creatinine measurement (mass/volume)Ordered By: Balwinder Alves on 12-26-2024 Creatinine [Mass/Vol] 0.67 mg/dL Low 0.70-1.20 [facility] Serum glucose measurement (m ass/volume)Ordered By: Balwinder Alves on 12-26-2024 Glucose [Mass/Vol] 215 mg/dL High 70-99 [facility] Serum or plasma calcium jacqueline urement (mass/volume)Ordered By: Balwinder Alves on 12-26-2024 Calcium [Mass/Vol] 9.1 mg/dL 7.6-11.0 [facility] Serum or plasma urea nitroge n measurement (mass/volume)Ordered By: Balwinder Alves on 12-26-2024 Urea nitrogen [Mass/Vol] 8 mg/dL 4-19 [facility] Sodium levelOrdered By: Balwinder Alves on 12-26-2024 Sodium [Moles/Vol] 137 mmol/L 133-145 [facility] White blood cell (WBC) count Ordered By: Balwinder Alves on 12-26-2024 WBC (Bld) [#/Vol] 7.1 10*3/uL 4.4-11.0 [facility] Anion gap in Serum or Plasma Ordered By: Balwinder Alves on 12-16-2024 Anion gap [Moles/Vol] 12 mmol/L 5-15 [facility] BUN/creatinine ratioOrdered By: Balwinder Alves on 12-16-2024 Urea nitrogen/Creatinine [Mass ratio] 12.7 mg/mg 10-20 [facility] Basic Metabolic Profile (BMP )on 03-14-2025 BUN/CRE 12.7 RATIO Normal 10-20 [facility] Comment on above: Performed By: #### L [id number], L500.4100, L500.2500, L506.1001, L100.0500 #### [facility] [address] [place], [address] Calcium [Mass/Vol] 9.5 mg/dL Normal 7.6-11.0 [facility] Comment on above: Performed By: #### L [id number], L500.4100, L500.2500, L506.1001, L100.0500 #### [facility] [address] [place], [address] Chloride [Moles/Vol] 98 mmol/L Normal 98-108 [facility] Comment on above: Performed By: #### L [id number], L500.4100, L500.2500, L506.1001, L100.0500 #### [facility] [address] [place], [address] CO2 [Moles/Vol] 26.7 mmol/L Normal 21.0-32.0 [facility] Comment on above: Performed By: #### L [id number], L500.4100, L500.2500, L506.1001, L100.0500 #### [facility] [address] [place], [address] Creatinine [Mass/Vol] 0.67 mg/dL Low 0.70-1.20 [facility] Comment on above: Performed By: #### L [id number], L500.4100, L500.2500, L506.1001, L100.0500 #### [facility] [address] [place], [address] GAP 12 Normal 5-15 [facility] Comment on above: Performed By: #### L [id number], L500.4100, L500.2500, L506.1001, L100.0500 #### [facility] [address] [place], [address] GFR/1.73 sq M.predicted among non-blacks MDRD (S/P/Bld) [Vol rate/Area] 88 mL/min/{1.73_m2} Normal >60 [facility] Comment on above: Result Comment: mL/m in/1.73m2 CKD-EPI Creatinine Equation (2020) Performed By: #### L 501.9985, L500.4100, L500.2500, L506.1001, L100.0500 #### [facility] [address] [place], [address] Glucose [Mass/Vol] 201 mg/dL High 70-99 [facility] Comment on above: Performed By: #### L [id number], L500.4100, L500.2500, L506.1001, L100.0500 #### [facility] [address] [place], [address] Potassium [Moles/Vol] 4.6 mmol/L Normal 3.3-5.1 [facility] Comment on above: Performed By: #### L [id number], L500.4100, L500.2500, L506.1001, L100.0500 #### [facility] [address] [place], [address] Sodium [Moles/Vol] 137 mmol/L Normal 133-145 [facility] Comment on above: Performed By: #### L [id number], L500.4100, L500.2500, L506.1001, L100.0500 #### [facility] [address] [place], [address] Urea nitrogen [Mass/Vol] 8 mg/dL Normal 4-19 [facility] Comment on above: Performed By: #### L [id number], L500.4100, L500.2500, L506.1001, L100.0500 #### [facility] [address] [place], [address] CBC-Complete Blood Cnt No Di ffon 12-16-2024 Erythrocyte distribution width (RBC) [Ratio] 13.8 % Normal 11.6-14.6 [facility] Comment on above: Performed By: #### L 501.9985, L500.4100, L500.2500, L506.1001, L100.0500 #### [facility] [address] [place], [address] Hematocrit (Bld) [Volume fraction] 36.2 % Low 37-47 [facility] Comment on above: Performed By: #### L 501.9985, L500.4100, L500.2500, L506.1001, L100.0500 #### [facility] [address] [place], [address] Hemoglobin (Bld) [Mass/Vol] 11.0 g/dL Low 12.0-15.0 [facility] Comment on above: Performed By: #### L 501.9985, L500.4100, L500.2500, L506.1001, L100.0500 #### [facility] [address] [place], [address] MCH (RBC) [Entitic mass] 28.2 pg Normal 27.0-32.0 [facility] Comment on above: Performed By: #### L [id number], L500.4100, L500.2500, L506.1001, L100.0500 #### [facility] [address] [place], [address] MCHC (RBC) [Mass/Vol] 30.4 g/dL Low 32-36 [facility] Comment on above: Performed By: #### L [id number], L500.4100, L500.2500, L506.1001, L100.0500 #### [facility] [address] [place], [address] MCV (RBC) [Entitic vol] 92.8 fL Normal 81-99 [facility] Comment on above: Performed By: #### L 501.9985, L500.4100, L500.2500, L506.1001, L100.0500 #### [facility] [address] [place], [address] Platelet mean volume (Bld) [Entitic vol] 8.4 fL Normal 6.2-12.0 [facility] Comment on above: Performed By: #### L 501.9985, L500.4100, L500.2500, L506.1001, L100.0500 #### [facility] [address] [place], [address] Platelets (Bld) [#/Vol] 231 10*3/uL Normal 150-450 [facility] Comment on above: Performed By: #### L [id number], L500.4100, L500.2500, L506.1001, L100.0500 #### [facility] [address] [place], [address] RBC (Bld) [#/Vol] 3.90 10*6/uL Low 4.2-5.4 [facility] Comment on above: Performed By: #### L 501.9985, L500.4100, L500.2500, L506.1001, L100.0500 #### [facility] [address] [place], [address] RDW SD 47.0 fl High 35.1-43.9 [facility] Comment on above: Performed By: #### L 501.9985, L500.4100, L500.2500, L506.1001, L100.0500 #### [facility] [address] [place], [address] WBC (Bld) [#/Vol] 7.8 10*3/uL Normal 4.4-11.0 [facility] Comment on above: Performed By: #### L [id number], L500.4100, L500.2500, L506.1001, L100.0500 #### [facility] [address] [place], [address] Calculated very low density lipoprotein (VLDL) cholesterol measurementOrdered By: Balwinder Alves on 12-16-2024 Calculated very low density lipoprotein (VLDL) cholesterol measurement 32 mg/dL 5-40 [facility] VLDL Cholesterol 32 mg/dL 5-40 [facility] Carbon dioxide, total [Moles /volume] in Central venous bloodOrdered By: Balwinder Alves on 12-16-2024 CO2 [Moles/Vol] 26.7 mmol/L 21.0-32.0 [facility] Chloride assayOrdered By: Jen Alves on 12-16-2024 Chloride [Moles/Vol] 98 mmol/L 98-108 [facility] Erythrocyte distribution wid th (RBC) [Ratio]Ordered By: Balwinder Alves on 12-16-2024 Erythrocyte distribution width (RBC) [Entitic vol] 47.0 fL High 35.1-43.9 [facility] Erythrocyte distribution wid th ratioOrdered By: Balwinder Alves on 12-16-2024 Erythrocyte distribution width (RBC) [Ratio] 13.8 % 11.6-14.6 [facility] Erythrocyte distribution wid th standard deviationOrdered By: Balwinder Alves on 12-16-2024 Erythrocyte distribution width (RBC) [Ratio] 47.0 fl High 35.1-43.9 [facility] GFR/1.73 sq M.predicted [place] non-blacks MDRD (S/P/Bld) [Vol rate/Area]Ordered By: Balwinder Alves on 12-16-2024 Estimated GFR (MDRD) Non-Af Amer 88 >60 [facility] Comment on above: mL/min/1.73m2 CKD-EP I Creatinine Equation (2020) Glomerular filtration rate ( GFR) estimation/1.73 sq m using serum, plasma, or whole bOrdered By: Balwinder Alves on 12-16-2024 GFR/1.73 sq M.predicted among non-blacks MDRD (S/P/Bld) [Vol rate/Area] 88 mL/min/{1.73_m2} >60 [facility] Comment on above: mL/min/1.73m2 CKD-EP I Creatinine Equation (2020) Hematocrit Auto (Bld) [Volum e fraction]Ordered By: Balwinder Alves on 12-16-2024 Hematocrit (Bld) [Volume fraction] 36.2 % Low 37-47 [facility] Hemoglobin A1con 12-16-2024 HbA1c (Bld) [Mass fraction] 8.4 % Normal <=5.6 [facility] Comment on above: Performed By: #### L [id number], L500.4100, L500.2500, L506.1001, L100.0500 #### [facility] [address] [place], [place], [id number] Hemoglobin A1c percentageOrd ered By: Balwinder Alves on 12-16-2024 HbA1c (Bld) [Mass fraction] 8.4 % >5.7 [facility] Hemoglobin measurementOrdere d By: Balwinder Alves on 12-16-2024 Hemoglobin (Bld) [Mass/Vol] 11.0 g/dL Low 12.0-15.0 [facility] L506.1001on 12-16-2024 Vitamin D 25-OH 31.6 ng/mL Normal 30-100 [facility] Comment on above: Result Comment: Feli min D Status Deficiency: <20 ng/mL (50nmol/L) Insufficiency: 20-30 ng/mL (50-75 nmol/L) Sufficiency: 30-100 ng/mL (75-250 nmol/L) Toxicity: >100 ng/mL (>250 nmol/L) Performed By: #### L [id number], L500.4100, L500.2500, L506.1001, L100.0500 #### [facility] [address] [place], [address] LDL calc ser/plasOrdered By: Balwinder Alves on 12-16-2024 Cholesterol in LDL [Mass/Vol] 22 mg/dL [facility] Comment on above: Ndersgkukc=318-641 m g/dL & Higher Dxky=774 mg/dL or greater LDL Cholesterol, Calculated 22 mg/dL [facility] Comment on above: Xwoezrsspc=953-774 m g/dL & Higher Yxqx=259 mg/dL or greater Lipid Profileon 12-16-2024 CHOL:HDL 2.22 Normal [facility] Comment on above: Performed By: #### L [id number], L500.4100, L500.2500, L506.1001, L100.0500 #### [facility] [address] [place], [address] Cholesterol [Mass/Vol] 98 mg/dL Normal <=200 [facility] Comment on above: Result Comment: Chol esterol level, Desirable <200 mg/dL Borderline high cholesterol 200-239 mg/dL High cholesterol >=240 mg/dL Recommendations of the NCEP Adult Treatment Panel for the following risk-cutoff thresholds for the [place] population. Performed By: #### L 501.9985, L500.4100, L500.2500, L506.1001, L100.0500 #### [facility] [address] [place], [address] Cholesterol in HDL [Mass/Vol] 44 mg/dL Normal [facility] Comment on above: Result Comment: Matilde onal Cholesterol Education Program (NCEP) guidelines: <40 mg/dL: Low HDL-cholesterol (major risk factor for CHD) >= 60 mg/dL: High HDL-cholesterol (negative risk factor for CHD) HDL-cholesterol is affected by a number of factors, e.g. smoking, exercise, hormones, sex and age. Performed By: #### L 501.9985, L500.4100, L500.2500, L506.1001, L100.0500 #### [facility] [address] [place], [address] Cholesterol in LDL [Mass/Vol] 22 mg/dL Normal [facility] Comment on above: Result Comment: Bord nwdgkd=464-998 mg/dL Higher Icdw=608 mg/dL or greater Performed By: #### L 501.9985, L500.4100, L500.2500, L506.1001, L100.0500 #### [facility] [address] [place], [address] Cholesterol in VLDL [Mass/Vol] 32 mg/dL Normal 5-40 [facility] Comment on above: Performed By: #### L [id number], L500.4100, L500.2500, L506.1001, L100.0500 #### [facility] [address] [place], [address] Triglyceride [Mass/Vol] 162 mg/dL Normal [facility] Comment on above: Result Comment: The drugs N-Acetylcysteine and Metamizole may falsely depress this assay. Normal range: <150 mg/dL Borderline High: 150-199 mg/dL High: 200-499 mg/dL Very High: >500 mg/dL Performed By: #### L [id number], L500.4100, L500.2500, L506.1001, L100.0500 #### [facility] [address] [place], [address] MCV (mean corpuscular volume ) determinationOrdered By: Balwinder Alves on 12-16-2024 MCV (RBC) [Entitic vol] 92.8 fL 81-99 [facility] Mean corpuscular hemoglobin (MCH) determinationOrdered By: Balwinder Alves on 12-16-2024 MCH (RBC) [Entitic mass] 28.2 pg 27.0-32.0 [facility] Mean corpuscular hemoglobin concentration (MCHC) determinationOrdered By: Balwinder Alves on 12-16-2024 MCHC (RBC) [Mass/Vol] 30.4 g/dL Low 32-36 [facility] Mean platelet volume determi nationOrdered By: Balwinder Alves on 12-16-2024 Platelet mean volume (Bld) [Entitic vol] 8.4 fL 6.2-12.0 [facility] Platelet countOrdered By: Jen Alves on 12-16-2024 Platelets (Bld) [#/Vol] 231 10*3/uL 150-450 [facility] Potassium (Unsp spec) [Mass/ Vol]Ordered By: Balwinder Alves on 12-16-2024 Potassium [Moles/Vol] 4.6 mmol/L 3.3-5.1 [facility] Potassium measurement (mass/ volume)Ordered By: Balwinder Alves on 12-16-2024 Potassium (Unsp spec) [Mass/Vol] 4.6 mmol/L 3.3-5.1 [facility] RBC Auto (Bld) [#/Vol]Ordere d By: Balwinder Alves on 12-16-2024 RBC (Bld) [#/Vol] 3.90 10*6/uL Low 4.2-5.4 [facility] Screening total cholesterol/ high density lipoprotein (HDL) cholesterol ratioOrdered By: Balwinder Alves on 12-16-2024 Cholesterol.total/Jany sterol in HDL [Mass ratio] 2.22 {ratio} [facility] Serum creatinine measurement (mass/volume)Ordered By: Balwinder Alves on 12-16-2024 Creatinine [Mass/Vol] 0.67 mg/dL Low 0.70-1.20 [facility] Serum glucose measurement (m ass/volume)Ordered By: Balwinder Alves on 12-16-2024 Glucose [Mass/Vol] 201 mg/dL High 70-99 [facility] Serum or plasma calcium jacqueline urement (mass/volume)Ordered By: Balwinder Alves on 12-16-2024 Calcium [Mass/Vol] 9.5 mg/dL 7.6-11.0 [facility] Serum or plasma cholesterol in HDL measurement (mass/volume)Ordered By: Balwinder Alves on 12-16-2024 Cholesterol in HDL [Mass/Vol] 44 mg/dL >40 [facility] Comment on above: National Cholesterol Education Program (NCEP) guidelines:<40 mg/dL: Low HDL-cholesterol (major risk factor for CHD)>= 60 mg/dL: High HDL-cholesterol (negative risk factor for CHD)HDL-cholesterol is affected by a number of factors, e.g. smoking, exercise, hormones, sex and age. Serum or plasma cholesterol measurement (mass/volume)Ordered By: Balwinder Alves on 12-16-2024 Cholesterol [Mass/Vol] 98 mg/dL <201 [facility] Comment on above: Cholesterol level, D esirable <200 mg/dLBorderline high cholesterol 200-239 mg/dLHigh cholesterol >=240 mg/dLRecommendations of the NCEP Adult Treatment Panel for the following risk-cutoff thresholds for the [place] population. Serum or plasma urea nitroge n measurement (mass/volume)Ordered By: Balwinder Alves on 12-16-2024 Urea nitrogen [Mass/Vol] 8 mg/dL 4-19 [facility] Sodium levelOrdered By: Balwinder Alves on 12-16-2024 Sodium [Moles/Vol] 137 mmol/L 133-145 [facility] Triglycerides measurementOrd ered By: Balwinder Alves on 12-16-2024 Triglyceride [Mass/Vol] 162 mg/dL <199 [facility] Comment on above: The drugs N-Acetylcy steine and Metamizole may falsely depress this assay. Normal range: <150 mg/dLBorderline High: 150-199 mg/dLHigh: 200-499 mg/dLVery High: >500 mg/dL Vitamin D, 25-hydroxyOrdered By: Balwinder Alves on 12-16-2024 Vitamin D 25-Hydroxy 31.6 ng/mL 30-100 [facility] Comment on above: Vitamin D StatusDefi ciency: <20 ng/mL (50nmol/L)Insufficiency: 20-30 ng/mL (50-75 nmol/L)Sufficiency: 30-100 ng/mL (75-250 nmol/L)Toxicity: >100 ng/mL (>250 nmol/L) White blood cell (WBC) count Ordered By: Balwinder Alves on 12-16-2024 WBC (Bld) [#/Vol] 7.8 10*3/uL 4.4-11.0 [facility] Absolute lymphocyte countOrd ered By: Balwinder Alves on 12-14-2024 Lymphocytes Auto (Unsp spec) [#/Vol] 1.93 10*3/uL 0.83-4.51 [facility] Absolute neutrophil countOrd ered By: Balwinder Alves on 12-14-2024 Neutrophils (Bld) [#/Vol] 4.0 10*3/uL 2.0-7.7 [facility] Anion gap in Serum or Plasma Ordered By: Balwinder Alves on 12-14-2024 Anion gap [Moles/Vol] 11 mmol/L 5-15 [facility] Automated lymphocyte count a s percentage of total leukocytesOrdered By: Balwinder Alves on 12-14-2024 Lymphocytes/100 WBC Auto (Unsp spec) 28.7 % - [facility] BUN/creatinine ratioOrdered By: Balwinder Alves on 12-14-2024 Urea nitrogen/Creatinine [Mass ratio] 10.3 mg/mg - [facility] Basic Metabolic Profile (BMP )on 12-14-2024 BUN/CRE 10.3 RATIO Normal 07-24 [facility] Comment on above: Order Comment: 102.2 Performed By: #### L [id number], L500.4100, L500.2500, L506.1001, L100.0500 #### [facility] [address] [place], [address] Calcium [Mass/Vol] 9.2 mg/dL Normal 7.6-11.0 [facility] Comment on above: Order Comment: 102.2 Performed By: #### L [id number], L500.4100, L500.2500, L506.1001, L100.0500 #### [facility] [address] [place], [address] Chloride [Moles/Vol] 101 mmol/L Normal 98-108 [facility] Comment on above: Order Comment: 102.2 Performed By: #### L [id number], L500.4100, L500.2500, L506.1001, L100.0500 #### [facility] [address] [place], [address] CO2 [Moles/Vol] 27.6 mmol/L Normal 21.0-32.0 [facility] Comment on above: Order Comment: 102.2 Performed By: #### L [id number], L500.4100, L500.2500, L506.1001, L100.0500 #### [facility] [address] [place], [address] Creatinine [Mass/Vol] 0.68 mg/dL Low 0.70-1.20 [facility] Comment on above: Order Comment: 102.2 Performed By: #### L [id number], L500.4100, L500.2500, L506.1001, L100.0500 #### [facility] [address] [place], [address] GAP 11 Normal 5-15 [facility] Comment on above: Order Comment: 102.2 Performed By: #### L [id number], L500.4100, L500.2500, L506.1001, L100.0500 #### [facility] [address] [place], [address] GFR/1.73 sq M.predicted among non-blacks MDRD (S/P/Bld) [Vol rate/Area] 88 mL/min/{1.73_m2} Normal >60 [facility] Comment on above: Order Comment: 102.2 Result Comment: mL/m in/1.73m2 CKD-EPI Creatinine Equation (2020) Performed By: #### L 501.9985, L500.4100, L500.2500, L506.1001, L100.0500 #### [facility] [address] [place], [address] Glucose [Mass/Vol] 177 mg/dL High 70-99 [facility] Comment on above: Order Comment: 102.2 Performed By: #### L 501.9985, L500.4100, L500.2500, L506.1001, L100.0500 #### [facility] [address] [place], [address] Potassium [Moles/Vol] 4.3 mmol/L Normal 3.3-5.1 [facility] Comment on above: Order Comment: 102.2 Performed By: #### L 501.9985, L500.4100, L500.2500, L506.1001, L100.0500 #### [facility] [address] [place], [address] Sodium [Moles/Vol] 139 mmol/L Normal 133-145 [facility] Comment on above: Order Comment: 102.2 Performed By: #### L [id number], L500.4100, L500.2500, L506.1001, L100.0500 #### [facility] [address] [place], [address] Urea nitrogen [Mass/Vol] 7 mg/dL Normal 4-19 [facility] Comment on above: Order Comment: 102.2 Performed By: #### L [id number], L500.4100, L500.2500, L506.1001, L100.0500 #### [facility] [address] [place], [address] Basophil percentageOrdered B y: Balwinder Alves on 12-14-2024 Basophils/100 WBC (Bld) 0.3 % 0-1 [facility] CBC W/Diff, Automatedon 12-03 Absolute Lymph 1.93 X10 3/uL Normal 0.83-4.51 [facility] Comment on above: Order Comment: 102.2 Performed By: #### L 501.9985, L500.4100, L500.2500, L506.1001, L100.0500 #### [facility] [address] [place], [address] Absolute Neut 4.0 X10 3/uL Normal 2.0-7.7 [facility] Comment on above: Order Comment: 102.2 Performed By: #### L [id number], L500.4100, L500.2500, L506.1001, L100.0500 #### [facility] [address] [place], [address] Basophils/100 WBC (Bld) 0.3 % Normal 0-1 [facility] Comment on above: Order Comment: 102.2 Performed By: #### L [id number], L500.4100, L500.2500, L506.1001, L100.0500 #### [facility] [address] [place], [address] Eosinophils/100 WBC (Bld) 3.1 % Normal 0-5 [facility] Comment on above: Order Comment: 102.2 Performed By: #### L 501.9985, L500.4100, L500.2500, L506.1001, L100.0500 #### [facility] [address] [place], [address] Erythrocyte distribution width (RBC) [Ratio] 13.6 % Normal 11.6-14.6 [facility] Comment on above: Order Comment: 102.2 Performed By: #### L [id number], L500.4100, L500.2500, L506.1001, L100.0500 #### [facility] [address] [place], [address] Hematocrit (Bld) [Volume fraction] 35.6 % Low 37-47 [facility] Comment on above: Order Comment: 102.2 Performed By: #### L 501.9985, L500.4100, L500.2500, L506.1001, L100.0500 #### [facility] [address] [place], [address] Hemoglobin (Bld) [Mass/Vol] 10.9 g/dL Low 12.0-15.0 [facility] Comment on above: Order Comment: 102.2 Performed By: #### L 501.9985, L500.4100, L500.2500, L506.1001, L100.0500 #### [facility] [address] [place], [address] IG% 1.000 High 0.0-0.9 [facility] Comment on above: Order Comment: 102.2 Result Comment: IG% - Immature Granulocytes (promyelocytes, myelocytes and metamyelocytes) > 1% indicates that a LEFT SHIFT is Present. Performed By: #### L 501.9985, L500.4100, L500.2500, L506.1001, L100.0500 #### [facility] [address] [place], [address] Lymphocytes/100 WBC (Bld) 28.7 % Normal 19-41 [facility] Comment on above: Order Comment: 102.2 Performed By: #### L 501.9985, L500.4100, L500.2500, L506.1001, L100.0500 #### [facility] [address] [place], [address] MCH (RBC) [Entitic mass] 28.2 pg Normal 27.0-32.0 [facility] Comment on above: Order Comment: 102.2 Performed By: #### L 501.9985, L500.4100, L500.2500, L506.1001, L100.0500 #### [facility] [address] [place], [address] MCHC (RBC) [Mass/Vol] 30.6 g/dL Low 32-36 [facility] Comment on above: Order Comment: 102.2 Performed By: #### L 501.9985, L500.4100, L500.2500, L506.1001, L100.0500 #### [facility] [address] [place], [address] MCV (RBC) [Entitic vol] 92.0 fL Normal 81-99 [facility] Comment on above: Order Comment: 102.2 Performed By: #### L 501.9985, L500.4100, L500.2500, L506.1001, L100.0500 #### [facility] [address] [place], [address] Monocytes/100 WBC (Bld) 6.8 % Normal 0-10 [facility] Comment on above: Order Comment: 102.2 Performed By: #### L 501.9985, L500.4100, L500.2500, L506.1001, L100.0500 #### [facility] [address] [place], [address] Neutrophils/100 WBC (Bld) 60.1 % Normal 47-70 [facility] Comment on above: Order Comment: 102.2 Performed By: #### L 501.9985, L500.4100, L500.2500, L506.1001, L100.0500 #### [facility] [address] [place], [address] Nucleated RBC (Bld) [#/Vol] 0 10*3/uL Normal 0-5 [facility] Comment on above: Order Comment: 102.2 Performed By: #### L [id number], L500.4100, L500.2500, L506.1001, L100.0500 #### [facility] [address] [place], [address] Platelet mean volume (Bld) [Entitic vol] 8.5 fL Normal 6.2-12.0 [facility] Comment on above: Order Comment: 102.2 Performed By: #### L 501.9985, L500.4100, L500.2500, L506.1001, L100.0500 #### [facility] [address] [place], [address] Platelets (Bld) [#/Vol] 213 10*3/uL Normal 150-450 [facility] Comment on above: Order Comment: 102.2 Performed By: #### L 501.9985, L500.4100, L500.2500, L506.1001, L100.0500 #### [facility] [address] [place], [address] RBC (Bld) [#/Vol] 3.87 10*6/uL Low 4.2-5.4 [facility] Comment on above: Order Comment: 102.2 Performed By: #### L 501.9985, L500.4100, L500.2500, L506.1001, L100.0500 #### [facility] [address] [place], [address] RDW SD 46.1 fl High 35.1-43.9 [facility] Comment on above: Order Comment: 102.2 Performed By: #### L 501.9985, L500.4100, L500.2500, L506.1001, L100.0500 #### [facility] [address] [place], [address] WBC (Bld) [#/Vol] 6.7 10*3/uL Normal 4.4-11.0 [facility] Comment on above: Order Comment: 102.2 Performed By: #### L 501.9985, L500.4100, L500.2500, L506.1001, L100.0500 #### [facility] [address] [place], [place], [address] Calculated very low density lipoprotein (VLDL) cholesterol measurementOrdered By: Balwinder Alves on 12-14-2024 Calculated very low density lipoprotein (VLDL) cholesterol measurement 29 mg/dL 5-40 [facility] VLDL Cholesterol 29 mg/dL 5-40 [facility] Carbon dioxide, total [Moles /volume] in Central venous bloodOrdered By: Balwinder Alves on 12-14-2024 CO2 [Moles/Vol] 27.6 mmol/L 21.0-32.0 [facility] Chloride assayOrdered By: Jen Alves on 12-14-2024 Chloride [Moles/Vol] 101 mmol/L 98-108 [facility] Eosinophil percentageOrdered By: Balwinder Alves on 12-14-2024 Eosinophils/100 WBC (Bld) 3.1 % 0-5 [facility] Erythrocyte distribution wid th (RBC) [Ratio]Ordered By: Balwinder Alves on 12-14-2024 Erythrocyte distribution width (RBC) [Entitic vol] 46.1 fL High 35.1-43.9 [facility] Erythrocyte distribution wid th ratioOrdered By: Balwinder Alves on 12-14-2024 Erythrocyte distribution width (RBC) [Ratio] 13.6 % 11.6-14.6 [facility] Erythrocyte distribution wid th standard deviationOrdered By: Balwinder Alves on 12-14-2024 Erythrocyte distribution width (RBC) [Ratio] 46.1 fl High 35.1-43.9 [facility] GFR/1.73 sq M.predicted philipp [place] non-blacks MDRD (S/P/Bld) [Vol rate/Area]Ordered By: Balwinder Alves on 12-14-2024 Estimated GFR (MDRD) Non-Af Amer 88 >60 [facility] Comment on above: mL/min/1.73m2 CKD-EP I Creatinine Equation (2020) Glomerular filtration rate ( GFR) estimation/1.73 sq m using serum, plasma, or whole bOrdered By: Balwinder Alves on 12-14-2024 GFR/1.73 sq M.predicted among non-blacks MDRD (S/P/Bld) [Vol rate/Area] 88 mL/min/{1.73_m2} >60 [facility] Comment on above: mL/min/1.73m2 CKD-EP I Creatinine Equation (2020) Hematocrit Auto (Bld) [Volum e fraction]Ordered By: Balwinder Alves on 12-14-2024 Hematocrit (Bld) [Volume fraction] 35.6 % Low 37-47 [facility] Hemoglobin A1con 12-14-2024 HbA1c (Bld) [Mass fraction] 8.6 % Normal <=5.6 [facility] Comment on above: Order Comment: 102.2 Performed By: #### L [id number], L500.4100, L500.2500, L506.1001, L100.0500 #### [facility] [address] [place], [address] Hemoglobin A1c percentageOrd ered By: Balwinder Alves on 12-14-2024 HbA1c (Bld) [Mass fraction] 8.6 % >5.7 [facility] Hemoglobin measurementOrdere d By: Balwinder Alves on 12-14-2024 Hemoglobin (Bld) [Mass/Vol] 10.9 g/dL Low 12.0-15.0 [facility] Immature granulocytes/100 WB C Auto (Bld)Ordered By: Balwinder Alves on 12-14-2024 Immature granulocytes/100 WBC (Bld) 1.000 % High 0.0-0.9 [facility] Comment on above: IG% - Immature Granu locytes (promyelocytes, myelocytes and metamyelocytes) > 1% indicates that a LEFT SHIFT is Present. L506.1001on 12-14-2024 Vitamin D 25-OH 31.2 ng/mL Normal 30-100 [facility] Comment on above: Order Comment: 102.2 Result Comment: Feli min D Status Deficiency: <20 ng/mL (50nmol/L) Insufficiency: 20-30 ng/mL (50-75 nmol/L) Sufficiency: 30-100 ng/mL (75-250 nmol/L) Toxicity: >100 ng/mL (>250 nmol/L) Performed By: #### L 501.9985, L500.4100, L500.2500, L506.1001, L100.0500 #### [facility] [address] [place], [address] LDL calc ser/plasOrdered By: Balwinder Alves on 12-14-2024 Cholesterol in LDL [Mass/Vol] 22 mg/dL [facility] Comment on above: Kqtincfizg=826-652 m g/dL & Higher Hvmp=487 mg/dL or greater LDL Cholesterol, Calculated 22 mg/dL [facility] Comment on above: Deasclrndw=997-692 m g/dL & Higher Bxrl=003 mg/dL or greater Lipid Profileon 12-14-2024 CHOL:HDL 2.29 Normal [facility] Comment on above: Order Comment: 102.2 Performed By: #### L [id number], L500.4100, L500.2500, L506.1001, L100.0500 #### [facility] [address] [place], [address] Cholesterol [Mass/Vol] 91 mg/dL Normal <=200 [facility] Comment on above: Order Comment: 102.2 Result Comment: Chol esterol level, Desirable <200 mg/dL Borderline high cholesterol 200-239 mg/dL High cholesterol >=240 mg/dL Recommendations of the NCEP Adult Treatment Panel for the following risk-cutoff thresholds for the [place] population. Performed By: #### L 501.9985, L500.4100, L500.2500, L506.1001, L100.0500 #### [facility] [address] [place], [address] Cholesterol in HDL [Mass/Vol] 40 mg/dL Normal [facility] Comment on above: Order Comment: 102.2 Result Comment: Matilde onal Cholesterol Education Program (NCEP) guidelines: <40 mg/dL: Low HDL-cholesterol (major risk factor for CHD) >= 60 mg/dL: High HDL-cholesterol (negative risk factor for CHD) HDL-cholesterol is affected by a number of factors, e.g. smoking, exercise, hormones, sex and age. Performed By: #### L 501.9985, L500.4100, L500.2500, L506.1001, L100.0500 #### [facility] [address] [place], [address] Cholesterol in LDL [Mass/Vol] 22 mg/dL Normal [facility] Comment on above: Order Comment: 102.2 Result Comment: Bord glmhpd=911-148 mg/dL Higher Dlto=725 mg/dL or greater Performed By: #### L [id number], L500.4100, L500.2500, L506.1001, L100.0500 #### [facility] [address] [place], [address] Cholesterol in VLDL [Mass/Vol] 29 mg/dL Normal 5-40 [facility] Comment on above: Order Comment: 102.2 Performed By: #### L [id number], L500.4100, L500.2500, L506.1001, L100.0500 #### [facility] [address] [place], [address] Triglyceride [Mass/Vol] 146 mg/dL Normal [facility] Comment on above: Order Comment: 102.2 Result Comment: The drugs N-Acetylcysteine and Metamizole may falsely depress this assay. Normal range: <150 mg/dL Borderline High: 150-199 mg/dL High: 200-499 mg/dL Very High: >500 mg/dL Performed By: #### L [id number], L500.4100, L500.2500, L506.1001, L100.0500 #### [facility] [address] [place], [address] Lymphocytes Auto (Unsp spec) [#/Vol]Ordered By: Balwinder Alves on 12-14-2024 Lymphocytes (Bld) [#/Vol] 1.93 10*3/uL 0.83-4.51 [facility] Lymphocytes/100 WBC Auto (Un sp spec)Ordered By: Balwinder Alves on 12-14-2024 Lymphocytes/100 WBC (Bld) 28.7 % 19-41 [facility] MCV (mean corpuscular volume ) determinationOrdered By: Balwinder Alves on 12-14-2024 MCV (RBC) [Entitic vol] 92.0 fL 81-99 [facility] Mean corpuscular hemoglobin (MCH) determinationOrdered By: Balwinder Alves on 12-14-2024 MCH (RBC) [Entitic mass] 28.2 pg 27.0-32.0 [facility] Mean corpuscular hemoglobin concentration (MCHC) determinationOrdered By: Balwinder Alves on 12-14-2024 MCHC (RBC) [Mass/Vol] 30.6 g/dL Low 32-36 [facility] Mean platelet volume determi nationOrdered By: Balwinder Alves on 12-14-2024 Platelet mean volume (Bld) [Entitic vol] 8.5 fL 6.2-12.0 [facility] Monocyte percentageOrdered B y: Balwinder Alves on 12-14-2024 Monocytes/100 WBC (Bld) 6.8 % 0-10 [facility] Neutrophil percentageOrdered By: Balwinder Alves on 12-14-2024 Neutrophils/100 WBC (Bld) 60.1 % 47-70 [facility] Nucleated red blood cell per centageOrdered By: Balwinder Alves on 12-14-2024 Nucleated RBC/100 WBC (Bld) [Ratio] 0 % 0-5 [facility] Platelet countOrdered By: Jen Alves on 12-14-2024 Platelets (Bld) [#/Vol] 213 10*3/uL 150-450 [facility] Potassium (Unsp spec) [Mass/ Vol]Ordered By: Balwinder Alves on 12-14-2024 Potassium [Moles/Vol] 4.3 mmol/L 3.3-5.1 [facility] Potassium measurement (mass/ volume)Ordered By: Balwinder Alves on 12-14-2024 Potassium (Unsp spec) [Mass/Vol] 4.3 mmol/L 3.3-5.1 [facility] RBC Auto (Bld) [#/Vol]Ordere d By: Balwinder Alves on 12-14-2024 RBC (Bld) [#/Vol] 3.87 10*6/uL Low 4.2-5.4 [facility] Screening total cholesterol/ high density lipoprotein (HDL) cholesterol ratioOrdered By: Balwinder Alves on 12-14-2024 Cholesterol.total/Jany sterol in HDL [Mass ratio] 2.29 {ratio} [facility] Serum creatinine measurement (mass/volume)Ordered By: Balwinder Alves on 12-14-2024 Creatinine [Mass/Vol] 0.68 mg/dL Low 0.70-1.20 [facility] Serum glucose measurement (m ass/volume)Ordered By: Balwinder Alves on 12-14-2024 Glucose [Mass/Vol] 177 mg/dL High 70-99 [facility] Serum or plasma calcium jacqueline urement (mass/volume)Ordered By: Balwinder Alves on 12-14-2024 Calcium [Mass/Vol] 9.2 mg/dL 7.6-11.0 [facility] Serum or plasma cholesterol in HDL measurement (mass/volume)Ordered By: Balwinder Alves on 12-14-2024 Cholesterol in HDL [Mass/Vol] 40 mg/dL >40 [facility] Comment on above: National Cholesterol Education Program (NCEP) guidelines:<40 mg/dL: Low HDL-cholesterol (major risk factor for CHD)>= 60 mg/dL: High HDL-cholesterol (negative risk factor for CHD)HDL-cholesterol is affected by a number of factors, e.g. smoking, exercise, hormones, sex and age. Serum or plasma cholesterol measurement (mass/volume)Ordered By: Balwinder Alves on 12-14-2024 Cholesterol [Mass/Vol] 91 mg/dL <201 [facility] Comment on above: Cholesterol level, D esirable <200 mg/dLBorderline high cholesterol 200-239 mg/dLHigh cholesterol >=240 mg/dLRecommendations of the NCEP Adult Treatment Panel for the following risk-cutoff thresholds for the [place] population. Serum or plasma urea nitroge n measurement (mass/volume)Ordered By: Balwinder Alves on 12-14-2024 Urea nitrogen [Mass/Vol] 7 mg/dL 4-19 [facility] Sodium levelOrdered By: Balwinder Alves on 12-14-2024 Sodium [Moles/Vol] 139 mmol/L 133-145 [facility] Triglycerides measurementOrd ered By: Balwinder Alves on 12-14-2024 Triglyceride [Mass/Vol] 146 mg/dL <199 [facility] Comment on above: The drugs N-Acetylcy steine and Metamizole may falsely depress this assay. Normal range: <150 mg/dLBorderline High: 150-199 mg/dLHigh: 200-499 mg/dLVery High: >500 mg/dL Vitamin D, 25-hydroxyOrdered By: Balwinder Alves on 12-14-2024 Vitamin D 25-Hydroxy 31.2 ng/mL 30-100 [facility] Comment on above: Vitamin D StatusDefi ciency: <20 ng/mL (50nmol/L)Insufficiency: 20-30 ng/mL (50-75 nmol/L)Sufficiency: 30-100 ng/mL (75-250 nmol/L)Toxicity: >100 ng/mL (>250 nmol/L) White blood cell (WBC) count Ordered By: Balwinder Alves on 12-14-2024 WBC (Bld) [#/Vol] 6.7 10*3/uL 4.4-11.0 [facility] Urine Cultureon 10-17-2024 [facility] Copy of report sent to Infection Control Printer [id number] 10/17/24 1000 VSICK. Urine Culture Urine Culture Urine Culture ESBL Escherichia coli [employer] Count 80,000-100,000 MARKER ESBL producing OrganismA MARKER ESBL producing OrganismA [employer] Count 80,000-100,000 Proteus mirabilis Ampicillin Islt PREM [...] TMP SMX Islt PREM <=20 S Normal [facility] Comment on above: Performed By: #### L 501.9985, L500.4100, L500.2500, L506.1001, L100.0500 #### [facility] [address] [place], [place], [id number] Urinalysis, Routine (Dipstic k)on 10-11-2024 BILIRUBIN URINE Negative Normal Negative [facility] Comment on above: Order Comment: CLEAN CATCH Performed By: #### L 501.9985, L500.4100, L500.2500, L506.1001, L100.0500 #### [facility] [address] [place], [place], [id number] Clarity (U) Sl. Cloudy Normal Clear [facility] Comment on above: Order Comment: CLEAN CATCH Performed By: #### L 501.9985, L500.4100, L500.2500, L506.1001, L100.0500 #### [facility] [address] [place], [address] Color (U) Yellow Normal Yellow [facility] Comment on above: Order Comment: CLEAN CATCH Performed By: #### L 501.9985, L500.4100, L500.2500, L506.1001, L100.0500 #### [facility] [address] [place], [address] GLUCOSE, UR Normal Normal Normal [facility] Comment on above: Order Comment: CLEAN CATCH Performed By: #### L 501.9985, L500.4100, L500.2500, L506.1001, L100.0500 #### [facility] [address] [place], [address] KETONE UR Negative Normal Negative [facility] Comment on above: Order Comment: CLEAN CATCH Performed By: #### L 501.9985, L500.4100, L500.2500, L506.1001, L100.0500 #### [facility] [address] [place], [address] LEUK ESTERASE 500 /ul Abnormal Negative [facility] Comment on above: Order Comment: CLEAN CATCH Performed By: #### L 501.9985, L500.4100, L500.2500, L506.1001, L100.0500 #### [facility] [address] [place], [address] Nitrite Ql (U) Positive Abnormal Negative [facility] Comment on above: Order Comment: CLEAN CATCH Performed By: #### L 501.9985, L500.4100, L500.2500, L506.1001, L100.0500 #### [facility] [address] [place], [address] OCCULT BLOOD-UR 50 /ul Abnormal Negative [facility] Comment on above: Order Comment: CLEAN CATCH Performed By: #### L 501.9985, L500.4100, L500.2500, L506.1001, L100.0500 #### [facility] [address] [place], [address] pH UR 6.5 Normal 5.0 - 8.0 [facility] Comment on above: Order Comment: CLEAN CATCH Performed By: #### L 501.9985, L500.4100, L500.2500, L506.1001, L100.0500 #### [facility] [address] [place], [address] PROT DIPSTX 15 mg/dl Abnormal Negative [facility] Comment on above: Order Comment: CLEAN CATCH Performed By: #### L 501.9985, L500.4100, L500.2500, L506.1001, L100.0500 #### [facility] [address] [place], [address] SP.GR. DIPSTX 1.010 Normal 1.002-1.030 [facility] Comment on above: Order Comment: CLEAN CATCH Performed By: #### L 501.9985, L500.4100, L500.2500, L506.1001, L100.0500 #### [facility] [address] [place], [address] UROBILI Normal Normal Normal [facility] Comment on above: Order Comment: CLEAN CATCH Performed By: #### L 501.9985, L500.4100, L500.2500, L506.1001, L100.0500 #### [facility] [address] [place], [address] Bilirubin Test strip Ql (U)O rdered By: Balwinder Alves on 10-10-2024 Bilirubin Ql (U) Negative Negative [facility] Glucose Ql (U)Ordered By: Jen Alves on 10-10-2024 Urine Glucose (UA) Normal mg/dl Normal [facility] Ketones Test strip Ql (U)Ord ered By: Balwinder Alves on 10-10-2024 Ketones Ql (U) Negative Negative [facility] Nitrite Test strip Ql (U)Ord ered By: Balwinder Alves on 10-10-2024 Nitrite Ql (U) Positive High Negative [facility] Protein Test strip Ql (U)Ord ered By: Balwinder Alves on 10-10-2024 Protein Ql (U) 15 mg/dl High Negative [facility] Urine blood detectionOrdered By: Balwinder Alves on 10-10-2024 Urine Occult Blood 50 /ul High Negative [facility] Urine clarityOrdered By: Javed Alves on 10-10-2024 Clarity (U) Sl. Cloudy Clear [facility] Urine color determinationOrd ered By: Balwinder Alves on 10-10-2024 Color (U) Yellow Yellow [facility] Urine cultureOrdered By: Javed Alves on 10-10-2024 Bacteria identified Cx Nom (U) ESBL Escherichia coli Abnormal [facility] Bacteria identified Cx Nom (U) Proteus mirabilis Abnormal [facility] Urine leukocyte esterase det ection by dipstickOrdered By: Balwinder Alves on 10-10-2024 Leukocyte esterase Test strip Ql (U) 500 /ul High Negative [facility] Urine pHOrdered By: Balwinder blackman on 10-10-2024 pH (U) 6.5 [pH] 5.0 - 8.0 [facility] Urine specific gravity measu rementOrdered By: Balwinder Alves on 10-10-2024 Specific gravity (U) [Rel density] 1.010 1.002-1.030 [facility] Urobilinogen Ql (U)Ordered B y: Balwinder Alves on 10-10-2024 Urine Urobilinogen Normal mg/dl Normal [facility] Automated blood erythrocyte countOrdered By: Balwinder Alves on 09-14-2024 RBC (Bld) [#/Vol] 3.90 10*6/uL Low 4.2-5.4 [facility] Comment on above: Order Comment: 102.2 Performed By: #### L 100.0500, L500.2500 #### [facility] [address] [place], [place] [address], [address] Automated blood hematocrit ( percentage)Ordered By: Balwinder Alves on 09-14-2024 Hematocrit (Bld) [Volume fraction] 37.7 % Normal 37-47 [facility] Comment on above: Order Comment: 102.2 Performed By: #### L 100.0500, L500.2500 #### [facility] [address] [place], [address] Basic Metabolic Profile (BMP )on 09-14-2024 BUN/CRE 15.5 RATIO Normal 10-20 [facility] Comment on above: Order Comment: 102.2 Performed By: #### L 100.0500, L500.2500 #### [facility] [address] [place], [address] CA,Total 9.4 mg/dL Normal 8.5-10.1 [facility] Comment on above: Order Comment: 102.2 Performed By: #### L 100.0500, L500.2500 #### [facility] [address] [place], [address] EST GFR - AA 102 mL/min Normal >60 [facility] Comment on above: Order Comment: 102.2 Result Comment: Afri can [place]ic GFR Calc Performed By: #### L 100.0500, L500.2500 #### [facility] [address] [place], [address] GAP 3 Low 5-15 [facility] Comment on above: Order Comment: 102.2 Performed By: #### L 100.0500, L500.2500 #### [facility] [address] [place], [address] GFR/1.73 sq M.predicted among non-blacks MDRD (S/P/Bld) [Vol rate/Area] 84 mL/min/{1.73_m2} Normal >60 [facility] Comment on above: Order Comment: 102.2 Result Comment: Non- GFR Calc Performed By: #### L 100.0500, L500.2500 #### [facility] [address] [place], [address] Blood urea nitrogen (BUN)/cr eatinine ratioOrdered By: Balwinder Alves on 09-14-2024 Urea nitrogen/Creatinine [Mass ratio] 15.5 mg/mg 10- [facility] CBC-Complete Blood Cnt No Di ffon 09-14-2024 RDW SD 48.3 fl High 35.1-43.9 [facility] Comment on above: Order Comment: 102.2 Performed By: #### L 100.0500, L500.2500 #### [facility] [address] [place], [address] Carbon dioxide measurementOr dered By: Balwinder Alves on 09-14-2024 CO2 [Moles/Vol] 34.0 mmol/L High 21.0-32.0 [facility] Comment on above: Order Comment: 102.2 Performed By: #### L 100.0500, L500.2500 #### [facility] [address] [place], [address] Chloride measurementOrdered By: Balwinder Alves on 09-14-2024 Chloride [Moles/Vol] 103 mmol/L Normal 98-107 [facility] Comment on above: Order Comment: 102.2 Performed By: #### L 100.0500, L500.2500 #### [facility] [address] [place], [address] Erythrocyte distribution wid th (RBC) [Ratio]Ordered By: Balwinder Alves on 09-14-2024 Erythrocyte distribution width (RBC) [Entitic vol] 48.3 fL High 35.1-43.9 [facility] Erythrocyte distribution wid th ratioOrdered By: Balwinder Alves on 09-14-2024 Erythrocyte distribution width (RBC) [Ratio] 14.0 % Normal 11.6-14.6 [facility] Comment on above: Order Comment: 102.2 Performed By: #### L 100.0500, L500.2500 #### [facility] [address] [place], [address] Estimated glomerular filtrat ion rate (GFR) AmericanOrdered By: Balwinder Alves on 09-14-2024 Estimated GFR (MDRD) Amer 102 mL/min >60 [facility] Comment on above: GFR Calc Glomerular filtration rate ( GFR) estimationOrdered By: Balwinder Alves on 09-14-2024 Estimated GFR (MDRD) Non-Af Amer 84 mL/min >60 [facility] Comment on above: Non- GFR Calc Glucose measurementOrdered B y: Balwinder Alves on 09-14-2024 Glucose [Mass/Vol] 168 mg/dL High 74-106 [facility] Comment on above: Fasting Glucose resu lt greater than or equal to 126 mg/dL suggests DIABETES MELLITUS per A.D.A. criteria. Order Comment: 102.2 Result Comment: Fast ing Glucose result greater than or equal to 126 mg/dL suggests DIABETES MELLITUS per A.D.A. criteria. Performed By: #### L 100.0500, L500.2500 #### [facility] [address] [place], [address] Hemoglobin measurementOrdere d By: Balwinder Alves on 09-14-2024 Hemoglobin (Bld) [Mass/Vol] 11.1 g/dL Low 12.0-15.0 [facility] Comment on above: Order Comment: 102.2 Performed By: #### L 100.0500, L500.2500 #### [facility] [address] [place], [address] MCV (mean corpuscular volume ) determinationOrdered By: Balwinder Alves on 09-14-2024 MCV (RBC) [Entitic vol] 96.7 fL Normal 81-99 [facility] Comment on above: Order Comment: 102.2 Performed By: #### L 100.0500, L500.2500 #### [facility] [address] [place], [address] Mean corpuscular hemoglobin (MCH) determinationOrdered By: Balwinder Alves on 09-14-2024 MCH (RBC) [Entitic mass] 28.5 pg Normal 27.0-32.0 [facility] Comment on above: Order Comment: 102.2 Performed By: #### L 100.0500, L500.2500 #### [facility] [address] [place], [address] Mean corpuscular hemoglobin concentration (MCHC) determinationOrdered By: Balwinder Alves on 09-14-2024 MCHC (RBC) [Mass/Vol] 29.4 g/dL Low 32-36 [facility] Comment on above: Order Comment: 102.2 Performed By: #### L 100.0500, L500.2500 #### [facility] [address] [place], [address] Mean platelet volume determi nationOrdered By: Balwinder Alves on 09-14-2024 Platelet mean volume (Bld) [Entitic vol] 8.2 fL Normal 6.2-12.0 [facility] Comment on above: Order Comment: 102.2 Performed By: #### L 100.0500, L500.2500 #### [facility] [address] [place], [address] Platelet countOrdered By: Jen Alves on 09-14-2024 Platelets (Bld) [#/Vol] 178 10*3/uL Normal 150-450 [facility] Comment on above: Order Comment: 102.2 Performed By: #### L 100.0500, L500.2500 #### [facility] [address] [place], [address] Potassium measurementOrdered By: Balwinder Alves on 09-14-2024 Potassium [Moles/Vol] 4.6 mmol/L Normal 3.5-5.1 [facility] Comment on above: Order Comment: 102.2 Performed By: #### L 100.0500, L500.2500 #### [facility] [address] [place], [address] Serum anion gap measurementO rdered By: Balwinder Alves on 09-14-2024 Anion gap [Moles/Vol] 3 mmol/L Low 5-15 [facility] Serum or plasma calcium jacqueline urement (mass/volume)Ordered By: Balwinder Alves on 09-14-2024 Calcium [Mass/Vol] 9.4 mg/dL 8.5-10.1 [facility] Serum or plasma creatinine m easurement (mass/volume)Ordered By: Balwinder Alves on 09-14-2024 Creatinine [Mass/Vol] 0.71 mg/dL Normal 0.55-1.02 [facility] Comment on above: The validity of the calculated GFR & GFRAA in patients over 70 years has not been determined. Clinical correlation is essential. Order Comment: 102.2 Result Comment: The validity of the calculated GFR GFRAA in patients over 70 years has not been determined. Clinical correlation is essential. Performed By: #### L 100.0500, L500.2500 #### [facility] [address] [place], [place], [address] (153) Serum or plasma urea nitroge n measurement (mass/volume)Ordered By: Balwinder Alves on 09-14-2024 Urea nitrogen [Mass/Vol] 11 mg/dL Normal 7-18 [facility] Comment on above: Order Comment: 102.2 Performed By: #### L 100.0500, L500.2500 #### [facility] [address] [place], [address] Sodium levelOrdered By: Balwinder Alves on 09-14-2024 Sodium [Moles/Vol] 139 mmol/L Normal 136-145 [facility] Comment on above: Order Comment: 102.2 Performed By: #### L 100.0500, L500.2500 #### [facility] [address] [place], [address] White blood cell (WBC) count Ordered By: Balwinder Alves on 09-14-2024 WBC (Bld) [#/Vol] 5.6 10*3/uL Normal 4.4-11.0 [facility] Comment on above: Order Comment: 102.2 Performed By: #### L 100.0500, L500.2500 #### [facility] [address] [place], [address] Basic Metabolic Profile (BMP )on 06-14-2024 BUN/CRE 13.6 RATIO Normal 10-20 [facility] Comment on above: Order Comment: 102.2 Performed By: #### L 501.9985, L500.4100, L500.2500, L506.1001, L100.0500 #### [facility] [address] [place], [address] CA,Total 9.5 mg/dL Normal 8.5-10.1 [facility] Comment on above: Order Comment: 102.2 Performed By: #### L 501.9985, L500.4100, L500.2500, L506.1001, L100.0500 #### [facility] [address] [place], [address] Chloride [Moles/Vol] 101 mmol/L Normal 98-107 [facility] Comment on above: Order Comment: 102.2 Performed By: #### L 501.9985, L500.4100, L500.2500, L506.1001, L100.0500 #### [facility] [address] [place], [address] CO2 [Moles/Vol] 30.0 mmol/L Normal 21.0-32.0 [facility] Comment on above: Order Comment: 102.2 Performed By: #### L 501.9985, L500.4100, L500.2500, L506.1001, L100.0500 #### [facility] [address] [place], [address] Creatinine [Mass/Vol] 0.74 mg/dL Normal 0.55-1.02 [facility] Comment on above: Order Comment: 102.2 Result Comment: The validity of the calculated GFR GFRAA in patients over 70 years has not been determined. Clinical correlation is essential. Performed By: #### L 501.9985, L500.4100, L500.2500, L506.1001, L100.0500 #### [facility] [address] [place], [address] EST GFR - AA 98 mL/min Normal >60 [facility] Comment on above: Order Comment: 102.2 Result Comment: Afri can Icelandic GFR Calc Performed By: #### L 501.9985, L500.4100, L500.2500, L506.1001, L100.0500 #### [facility] [address] [place], [address] GAP 6 Normal 5-15 [facility] Comment on above: Order Comment: 102.2 Performed By: #### L 501.9985, L500.4100, L500.2500, L506.1001, L100.0500 #### [facility] [address] [place], [address] GFR/1.73 sq M.predicted among non-blacks MDRD (S/P/Bld) [Vol rate/Area] 81 mL/min/{1.73_m2} Normal >60 [facility] Comment on above: Order Comment: 102.2 Result Comment: Non- GFR Calc Performed By: #### L 501.9985, L500.4100, L500.2500, L506.1001, L100.0500 #### [facility] [address] [place], [address] Glucose [Mass/Vol] 157 mg/dL High 74-106 [facility] Comment on above: Order Comment: 102.2 Result Comment: Fast ing Glucose result greater than or equal to 126 mg/dL suggests DIABETES MELLITUS per A.D.A. criteria. Performed By: #### L 501.9985, L500.4100, L500.2500, L506.1001, L100.0500 #### [facility] [address] [place], [address] Potassium [Moles/Vol] 4.1 mmol/L Normal 3.5-5.1 [facility] Comment on above: Order Comment: 102.2 Performed By: #### L 501.9985, L500.4100, L500.2500, L506.1001, L100.0500 #### [facility] [address] [place], [address] Sodium [Moles/Vol] 137 mmol/L Normal 136-145 [facility] Comment on above: Order Comment: 102.2 Performed By: #### L 501.9985, L500.4100, L500.2500, L506.1001, L100.0500 #### [facility] [address] [place], [address] Urea nitrogen [Mass/Vol] 10 mg/dL Normal 7-18 [facility] Comment on above: Order Comment: 102.2 Performed By: #### L 501.9985, L500.4100, L500.2500, L506.1001, L100.0500 #### [facility] [address] [place], [address] CBC-Complete Blood Cnt No Di ffon 06-14-2024 Erythrocyte distribution width (RBC) [Ratio] 14.5 % Normal 11.6-14.6 [facility] Comment on above: Order Comment: 102.2 Performed By: #### L 501.9985, L500.4100, L500.2500, L506.1001, L100.0500 #### [facility] [address] [place], [address] Hematocrit (Bld) [Volume fraction] 36.9 % Low 37-47 [facility] Comment on above: Order Comment: 102.2 Performed By: #### L 501.9985, L500.4100, L500.2500, L506.1001, L100.0500 #### [facility] [address] [place], [address] Hemoglobin (Bld) [Mass/Vol] 11.1 g/dL Low 12.0-15.0 [facility] Comment on above: Order Comment: 102.2 Performed By: #### L 501.9985, L500.4100, L500.2500, L506.1001, L100.0500 #### [facility] [address] [place], [address] MCH (RBC) [Entitic mass] 28.6 pg Normal 27.0-32.0 [facility] Comment on above: Order Comment: 102.2 Performed By: #### L 501.9985, L500.4100, L500.2500, L506.1001, L100.0500 #### [facility] [address] [place], [address] MCHC (RBC) [Mass/Vol] 30.1 g/dL Low 32-36 [facility] Comment on above: Order Comment: 102.2 Performed By: #### L 501.9985, L500.4100, L500.2500, L506.1001, L100.0500 #### [facility] [address] [place], [address] MCV (RBC) [Entitic vol] 95.1 fL Normal 81-99 [facility] Comment on above: Order Comment: 102.2 Performed By: #### L 501.9985, L500.4100, L500.2500, L506.1001, L100.0500 #### [facility] [address] [place], [address] Platelet mean volume (Bld) [Entitic vol] 8.7 fL Normal 6.2-12.0 [facility] Comment on above: Order Comment: 102.2 Performed By: #### L 501.9985, L500.4100, L500.2500, L506.1001, L100.0500 #### [facility] [address] [place], [address] Platelets (Bld) [#/Vol] 165 10*3/uL Normal 150-450 [facility] Comment on above: Order Comment: 102.2 Performed By: #### L 501.9985, L500.4100, L500.2500, L506.1001, L100.0500 #### [facility] [address] [place], [address] RBC (Bld) [#/Vol] 3.88 10*6/uL Low 4.2-5.4 [facility] Comment on above: Order Comment: 102.2 Performed By: #### L 501.9985, L500.4100, L500.2500, L506.1001, L100.0500 #### [facility] [address] [place], [address] RDW SD 50.7 fl High 35.1-43.9 [facility] Comment on above: Order Comment: 102.2 Performed By: #### L 501.9985, L500.4100, L500.2500, L506.1001, L100.0500 #### [facility] [address] [place], [address] WBC (Bld) [#/Vol] 5.4 10*3/uL Normal 4.4-11.0 [facility] Comment on above: Order Comment: 102.2 Performed By: #### L 501.9985, L500.4100, L500.2500, L506.1001, L100.0500 #### [facility] [address] [place], [address] Hemoglobin A1con 06-14-2024 HbA1c (Bld) [Mass fraction] 6.7 % High 3.8-5.6 [facility] Comment on above: Order Comment: 102.2 Result Comment: Norm al < 5.7 % Prediabetic 5.7 - 6.4 % Diabetic >or= 6.5 % Please note range changes. Performed By: #### L 501.9985, L500.4100, L500.2500, L506.1001, L100.0500 #### [facility] [address] [place], [address] Lipid Profileon 06-14-2024 Cholesterol [Mass/Vol] 134 mg/dL Normal 200 [facility] Comment on above: Order Comment: 102.2 Result Comment: <200 mg/dL Desirable 200-240 mg/dL Borderline >240 mg/dL High Risk Performed By: #### L 501.9985, L500.4100, L500.2500, L506.1001, L100.0500 #### [facility] [address] [place], [address] Cholesterol in HDL [Mass/Vol] 66 mg/dL Normal [facility] Comment on above: Order Comment: 102.2 Result Comment: The drugs N-Acetylcysteine and Metamizole may falsely depress this assay. Reference Range HDL <40 mg/dL Low HDL Cholesterol HDL >or= 60 mg/dL High HDL Cholesterol Performed By: #### L 501.9985, L500.4100, L500.2500, L506.1001, L100.0500 #### [facility] [facility] [address] [place], [address] Cholesterol in LDL [Mass/Vol] 43 mg/dL Normal 0-130 [facility] Comment on above: Order Comment: 102.2 Performed By: #### L 501.9985, L500.4100, L500.2500, L506.1001, L100.0500 #### [facility] [address] [place], [address] Cholesterol in VLDL [Mass/Vol] 25 mg/dL Normal 5-40 [facility] Comment on above: Order Comment: 102.2 Performed By: #### L 501.9985, L500.4100, L500.2500, L506.1001, L100.0500 #### [facility] [address] [place], [place], [address] Triglyceride [Mass/Vol] 125 mg/dL Normal [facility] Comment on above: Order Comment: 102.2 Result Comment: The drugs N-Acetylcysteine and Metamizole may falsely depress this assay. Serum Triglycerides Reference Interval Normal <150 mg/dL Borderline high 150 - 199 mg/dL High 200 - 499 mg/dL Very High > or = 500 mg/dL Performed By: #### L 501.9985, L500.4100, L500.2500, L506.1001, L100.0500 #### [facility] [address] [place], [place], [id number] Vitamin D,25 Hydroxyon 06-14 Vitamin D 25-OH 38.8 ng/mL Normal [facility] Comment on above: Order Comment: 102.2 Result Comment: Feli min D 25(OH) Status Range Deficiency <20 ng/mL (50nmol/L) Insufficiency 20 - 30 ng/mL (50 - 75 nmol/L) Sufficiency 30 - 100 ng/mL (75 - 250 nmol/L) Toxicity >100 ng/mL (>250 nmol/L) Performed By: #### L 501.9985, L500.4100, L500.2500, L506.1001, L100.0500 #### [facility] [address] [place], [place], [address] Urine Cultureon 06-01-2024 [facility] RESULTS CALLED TO Castro GARCIA 05/31/24 105Alvin Patterson. REPORT READ BACK BY . ESBL Escherichia coli [place] [employer] Count >100,000 MARKER A ESBL producing Organism [...] R Cefuroxime Islt PREM >=64 R Normal [facility] Comment on above: Performed By: #### L 501.9985, L500.4100, L500.2500, L506.1001, L100.0500 #### [facility] [address] [place], [address] Urine Cultureon 05-09-2024 [facility] RESULTS CALLED TO Lesli WALLACE 05/09/24 1156 Lorrie Patterson. REPORT READ BACK BY . Bacteria Ur Cult Copy of report sent to Infection Control Printer [id number] 05/09/24 1159 ESSENCE. ESBL Escherichia coli [place] [employer] Count >100,000 MARKER A ESBL producing Organism [...] TMP SMX Islt PREM >=320 R Normal [facility] Comment on above: Performed By: #### M 100.2200, L400.2010 #### [facility] [address] [place], [address] Urinalysis, Routine (Dipstic k)on 05-06-2024 BILIRUBIN URINE Negative Normal Negative [facility] Comment on above: Order Comment: Urine , Random Performed By: #### M 100.2200, L4 #### [facility] [address] [place], [address] Clarity (U) Cloudy Normal Clear [facility] Comment on above: Order Comment: Urine , Random Performed By: #### M 100.2199, L4 #### [facility] [address] [place], [address] Color (U) Yellow Normal Yellow [facility] Comment on above: Order Comment: Urine , Random Performed By: #### M 100.2199, L4 #### [facility] [address] [place], [address] GLUCOSE, UR Normal Normal Normal [facility] Comment on above: Order Comment: Urine , Random Performed By: #### M 100.2199, L4 #### [facility] [address] [place], [address] KETONE UR 5 mg/dl Abnormal Negative [facility] Comment on above: Order Comment: Urine , Random Performed By: #### M 100.2199, L4 #### [facility] [address] [place], [address] LEUK ESTERASE 500 /ul Abnormal Negative [facility] Comment on above: Order Comment: Urine , Random Performed By: #### M 100.2199, L4 #### [facility] [address] [place], [address] Nitrite Ql (U) Positive Abnormal Negative [facility] Comment on above: Order Comment: Urine , Random Performed By: #### M 100.2199, L4 #### [facility] [address] [place], [address] OCCULT BLOOD-UR 250 /ul Abnormal Negative [facility] Comment on above: Order Comment: Urine , Random Performed By: #### M 100.0, L400.2010 #### [facility] [address] [place], [address] pH UR 6.0 Normal 5.0 - 8.0 [facility] Comment on above: Order Comment: Urine , Random Performed By: #### M 100.2200, L4.2010 #### [facility] [address] [place], [address] PROT DIPSTX 30 mg/dl Abnormal Negative [facility] Comment on above: Order Comment: Urine , Random Performed By: #### M 100.2199, L400.2010 #### [facility] [address] [place], [address] SP.GR. DIPSTX 1.015 Normal 1.002-1.030 [facility] Comment on above: Order Comment: Urine , Random Performed By: #### M 100.0, L400.2010 #### [facility] [address] [place], [address] UROBILI Normal Normal Normal [facility] Comment on above: Order Comment: Urine , Random Performed By: #### M 100.2199, L4 #### [facility] [address] [place], [address] Basophil percentageOrdered B y: Balwinder Alves on 12-14-2023 Chloride [Moles/Vol] 105 mmol/L 98-107 [facility] Cholesterol [Mass/Vol] 128 mg/dL <200 [facility] Comment on above: <200 mg/dL Desirable 200-240 mg/dL Borderline >240 mg/dL High Risk Glucose [Mass/Vol] 132 mg/dL 74-106 [facility] Comment on above: Fasting Glucose resu lt greater than or equal to 126 mg/dL suggests DIABETES MELLITUS per A.D.A. criteria. Hemoglobin (Bld) [Mass/Vol] 12.5 g/dL 12.0-15.0 [facility] Potassium [Moles/Vol] 4.4 mmol/L 3.5-5.1 [facility] Sodium [Moles/Vol] 142 mmol/L 136-145 [facility] Triglyceride [Mass/Vol] 178 mg/dL <199 [facility] Comment on above: The drugs N-Acetylcy steine and Metamizole may falsely depress this assay.Serum Triglycerides Reference Interval Normal <150 mg/dL Borderline high 150 - 199 mg/dL High 200 - 499 mg/dL Very High > or = 500 mg/dL WBC (Bld) [#/Vol] 4.9 10*3/uL 4.4-11.0 [facility] Determination of erythrocyte mean corpuscular volume (MCV)Ordered By: Balwinder Alves on 12-14-2023 MCV (RBC) [Entitic vol] 92.6 fL 81-99 [facility] Erythrocyte distribution wid th ratioOrdered By: Balwinder Alves on 12-14-2023 Erythrocyte distribution width (RBC) [Ratio] 15.4 % 11.6-14.6 [facility] Erythrocyte distribution wid th standard deviationOrdered By: Balwinder Alves on 12-14-2023 Erythrocyte distribution width (RBC) [Entitic vol] 52.9 fL 35.1-43.9 [facility] Hematocrit Auto (Bld) [Volum e fraction]Ordered By: Balwinder Alves on 12-14-2023 Hematocrit (Bld) [Volume fraction] 41.1 % 37-47 [facility] - Chemistry and C hemistry - challengeOrdered By: Balwinder Alves on 12-14-2023 Cholesterol in HDL [Mass/Vol] 49 mg/dL >40 [facility] Comment on above: The drugs N-Acetylcy steine and Metamizole may falsely depress this assay. Reference Range HDL <40 mg/dL Low HDL Cholesterol HDL >or= 60 mg/dL High HDL Cholesterol Cholesterol in LDL [Mass/Vol] 43 mg/dL 0-130 [facility] CO2 [Moles/Vol] 32.0 mmol/L 21.0-32.0 [facility] Urea nitrogen/Creatinine [Mass ratio] 12.2 mg/mg 10-20 [facility] - Hematology and Cell countsOrdered By: Balwinder Alves on 12-14-2023 MCH (RBC) [Entitic mass] 28.2 pg 27.0-32.0 [facility] MCHC (RBC) [Mass/Vol] 30.4 g/dL 32-36 [facility] Platelet mean volume (Bld) [Entitic vol] 8.5 fL 6.2-12.0 [facility] Platelets (Bld) [#/Vol] 174 10*3/uL 150-450 [facility] No Panel InformationOrdered By: Balwinder Alves on 12-14-2023 Estimated GFR (MDRD) Amer 130 mL/min >60 [facility] Comment on above: GFR Calc Estimated GFR (MDRD) Non-Af Amer 107 mL/min >60 [facility] Comment on above: Non- GFR Calc Vitamin D 25-Hydroxy 42.9 ng/mL [facility] Comment on above: Vitamin D 25(OH) Sta tus Range Deficiency <20 ng/mL (50nmol/L) Insufficiency 20 - 30 ng/mL (50 - 75 nmol/L) Sufficiency 30 - 100 ng/mL (75 - 250 nmol/L) Toxicity >100 ng/mL (>250 nmol/L) VLDL Cholesterol 36 mg/dL 5-40 [facility] RBC Auto (Bld) [#/Vol]Ordere d By: Balwinder Alves on 12-14-2023 RBC (Bld) [#/Vol] 4.44 10*6/uL 4.2-5.4 [facility] Serum or plasma calcium jacqueline urement (mass/volume)Ordered By: Balwinder Alves on 12-14-2023 Calcium [Mass/Vol] 8.9 mg/dL 8.5-10.1 [facility] Serum or plasma creatinine m easurement (mass/volume)Ordered By: Balwinder Alves on 12-14-2023 Creatinine [Mass/Vol] 0.58 mg/dL 0.55-1.02 [facility] Comment on above: The validity of the calculated GFR & GFRAA in patients over 70 years has not been determined. Clinical correlation is essential. Serum or plasma urea nitroge n measurement (mass/volume)Ordered By: Balwinder Alves on 03-11-2024 Urea nitrogen [Mass/Vol] 7 mg/dL 7-18 [facility] Thin prep Papanicolaou smear with manual screeningOrdered By: Balwinder Alves on 12-14-2023 Thin prep Papanicolaou smear with manual screening 5 5-15 [facility] Whole blood hemoglobin A1c/t otal hemoglobin ratio (mass fraction)Ordered By: Balwinder Alves on 12-14-2023 HbA1c (Bld) [Mass fraction] 6.2 % 3.8-5.6 [facility] Comment on above: Normal < 5.7 % Predi abetic 5.7 - 6.4 % Diabetic >or= 6.5 % Please note range changes. Office Visiton 12-09-2023 Follow-up visit [id number] [place],Joy edwards 1945 F Date Provider Department Center 12/09/2023 [id number], [facility] OR None No family history on file Level of Service:10434 ID OFFICE/OUTPATIENT ESTABLISHED LOW MDM 20 MIN Reason for Visit and Comments: Follow-up [553982] - L fibula fx Normal [facility] Progress Noteon 12-09-2023 Progress Note [facility] [address] [place] [address] [place] [id number] Dept: [phone] Dept Gumaro Daria 1945 [id number] 12/09/2023 HISTORY OF PRESENT ILLNESS: Gumaro returns [...] on it (more content not included)... [facility] 36on 10-14-2023 36 Spoke with Beny at [facility] and clarified that Gumaro should bear weight in her boot until next visit and should use walker as needed for balance. [facility] 36 Name of Caller: Gareth at [facility] Contact ask for Gareth Reason Gareth is [...] is requesting a call back. Office Name: Miguel [facility] Office Visiton 10-14-2023 Follow-up visit [id number] Joy Huff grace 1945 F Date Provider Department Center 10/14/2023 [facility] OR None No family history on file Level of Service:34969 ID OFFICE/OUTPATIENT ESTABLISHED LOW MDM 20 MIN Reason for Visit and Comments: Follow-up [801921] - Left distal fibula fx DOI 07/02/23 Normal [facility] Progress Noteon 10-14-2023 Progress Note [facility] [address] [place] [address] [address] [facility] [place] [place] [address] Dept: [phone] Dept Gumaro Huff 1945 [id number] 10/14/2023 HISTORY OF PRESENT ILLNESS: Gumaro returns [...] above p (more content not included)... Normal [facility] Clostridioides difficile nuc leic acid assay by PCROrdered By: Balwinder Alves on 09-23-2023 C. difficile DNA DIGNA+probe Ql (Unsp spec) [facility] Clostridium difficile detect ion by polymerase chain reactionOrdered By: Balwinder Alves on 09-23-2023 C. difficile DNA DIGNA+probe Ql (Unsp spec) [facility] Basophil percentageOrdered B y: Balwinder Alves on 09-14-2023 Chloride [Moles/Vol] 102 mmol/L 98-107 [facility] Glucose [Mass/Vol] 142 mg/dL 74-106 [facility] Comment on above: Fasting Glucose resu lt greater than or equal to 126 mg/dL suggests DIABETES MELLITUS per A.D.A. criteria. Potassium [Moles/Vol] 4.1 mmol/L 3.5-5.1 [facility] Sodium [Moles/Vol] 138 mmol/L 136-145 [facility] WBC (Bld) [#/Vol] 5.9 10*3/uL 4.4-11.0 [facility] Blood erythrocytes count (nu mber/volume)Ordered By: Balwinder Alves on 09-14-2023 RBC (Bld) [#/Vol] 4.96 10*6/uL 4.2-5.4 [facility] Blood hemoglobin measurement (mass/volume)Ordered By: Balwinder Alves on 09-14-2023 Hemoglobin (Bld) [Mass/Vol] 13.3 g/dL 12.0-15.0 [facility] Blood platelet mean volumeOr dered By: Balwinder Alves on 09-14-2023 Platelet mean volume (Bld) [Entitic vol] 8.3 fL 6.2-12.0 [facility] Determination of erythrocyte mean corpuscular volume (MCV)Ordered By: Balwinder Alves on 09-14-2023 MCV (RBC) [Entitic vol] 92.5 fL 81-99 [facility] Hematocrit Auto (Bld) [Volum e fraction]Ordered By: Balwinder Alves on 09-14-2023 Hematocrit (Bld) [Volume fraction] 45.9 % 37-47 [facility] - Chemistry and C hemistry - challengeOrdered By: Balwinder Alves on 09-14-2023 CO2 [Moles/Vol] 31.0 mmol/L 21.0-32.0 [facility] Urea nitrogen/Creatinine [Mass ratio] 10.1 mg/mg 10-20 [facility] - Hematology and Cell countsOrdered By: Balwinder Alves on 09-14-2023 Erythrocyte distribution width (RBC) [Entitic vol] 47.0 fL 35.1-43.9 [facility] Erythrocyte distribution width (RBC) [Ratio] 13.9 % 11.6-14.6 [facility] MCH (RBC) [Entitic mass] 26.8 pg 27.0-32.0 [facility] MCHC Auto (RBC) [Mass/Vol]Or dered By: Balwinder Alves on 09-14-2023 MCHC (RBC) [Mass/Vol] 29.0 g/dL 32-36 [facility] No Panel InformationOrdered By: Balwinder Alves on 09-14-2023 Estimated GFR (MDRD) Amer 125 mL/min >60 [facility] Comment on above: GFR Calc Estimated GFR (MDRD) Non-Af Amer 103 mL/min >60 [facility] Comment on above: Non- GFR Calc Office Visiton 09-14-2023 Follow-up visit [id number] Joy Huff 1945 F Date Provider Department Center 09/14/2023 [id number] UREÑA [facility] None No family history on file Level of Service:51245 ID OFFICE/OUTPATIENT NEW MODERATE MDM 45-59 MINUTES Reason for Visit and Comments: New Patient [542] - LT distal fibula fx DOI 07/02/[address] [facility] Platelets bldOrdered By: Javed Alves on 09-14-2023 Platelets (Bld) [#/Vol] 196 10*3/uL 150-450 [facility] Progress Noteon 09-14-2023 Progress Note [facility] [address] [facility] [address] Dept: [phone] Dept Gumaro Huff 1945 [id number] 09/14/2023 HISTORY OF PRESENT ILLNESS: Gumaro is a 78 y.o. female here today for evaluation of her Left distal fibula fx DOI 07/02/23. Patient has been in a walking boot. Patient is diabetic. She is currently in a skilled nursing due to injury. She was supposed to be seen closer to her fx date but her appointments were canceled due to skilled nursing transportation issues. She has been nonweightbearing since her injury. Gumaro states the problem has been present for 3 months est Gumaro states the problem started as the result of a fall, tripped walking into her home. Gumaro has tried or has been treated with the following: walking boot, skilled nursing PT. Review of Systems Surgical Risk Factors: [...] given he (more content not included)... Normal [facility] Serum or plasma calcium jacqueline urement (mass/volume)Ordered By: Balwinder Alves on 09-14-2023 Calcium [Mass/Vol] 8.9 mg/dL 8.5-10.1 [facility] Serum or plasma creatinine m easurement (mass/volume)Ordered By: Balwinder Alves on 09-14-2023 Creatinine [Mass/Vol] 0.59 mg/dL 0.55-1.02 [facility] Comment on above: The validity of the calculated GFR & GFRAA in patients over 70 years has not been determined. Clinical correlation is essential. Serum or plasma urea nitroge n measurement (mass/volume)Ordered By: Balwinder Alves on 09-14-2023 Urea nitrogen [Mass/Vol] 6 mg/dL 7-18 [facility] Thin prep Papanicolaou smear with manual screeningOrdered By: Balwinder Alves on 09-14-2023 Thin prep Papanicolaou smear with manual screening 5 5-15 [facility] XR ANKLE 3+ VIEWS LEFTon XR [...] at the lateral malleolar fracture site. Normal [facility] XR FOOT 3+ VIEWS LEFTon 09-04 XR [...] at the lateral malleolar fracture site. Normal [facility] 36on 09-03-2023 36 Left distal fibula f x doi 07/02/23 she is in a boot. Can only be seen in [place] or [place]. No wads Normal [facility] 36on 09-02-2023 36 Gareth an RN at [facility] called [phone] ext [phone], he states that they just got Gumaro from [place] and they are looking for her to [...] today and then works again tomorrow. Normal [facility] 36on 07-17-2023 36 LVM to schedule with Dr. Ureña on Thursday at 1pm in [facility] or 9am in [place] if not already double booked. Normal [facility] .Auto DiffOrdered By: SYSTEM SYSTEM on 07-04-2023 Basophil, Absolute 0.0 103/mcL Normal 0.0-0.2 AO Wo rkflow SS Comment on above: Performed By: #### L IPID, ADIFF, ANEU, CMP, CBC, GFR #### [facility] [address] [address] Basophils/100 WBC (Bld) 0.4 % Normal 0.0-2.5 A O Workflow SS Comment on above: Performed By: #### L IPID, ADIFF, ANEU, CMP, CBC, GFR #### [facility] [address] [address] Eosinophil, Absolute 0.4 103/mcL Normal 0.0-0.4 AO Workflow SS Comment on above: Performed By: #### L IPID, ADIFF, ANEU, CMP, CBC, GFR #### [facility] [address] [address] Eosinophils/100 WBC (Bld) 6.9 % Normal 0.0-7.0 AO Workflow SS Comment on above: Performed By: #### L IPID, ADIFF, ANEU, CMP, CBC, GFR #### [address] [address] Lymphocyte, Absolute 1.7 103/mcL Normal 0.8-3.9 AO Workflow SS Comment on above: Performed By: #### L IPID, ADIFF, ANEU, CMP, CBC, GFR #### [address] [address] Lymphocytes/100 WBC (Bld) 27.3 % Normal 10.0-50.0 AO Workflow SS Comment on above: Performed By: #### L IPID, ADIFF, ANEU, CMP, CBC, GFR #### [address] [address] Monocyte, Absolute 0.4 103/mcL Normal 0.2-1.0 AO Wo rkflow SS Comment on above: Performed By: #### L IPID, ADIFF, ANEU, CMP, CBC, GFR #### [address] [address] Monocytes/100 WBC (Bld) 6.4 % Normal 1.7-13.0 A O Workflow SS Comment on above: Performed By: #### L IPID, ADIFF, ANEU, CMP, CBC, GFR #### [address] [address] Neutrophils/100 WBC (Bld) 59.0 % Normal 37.0-80.0 AO Workflow SS Comment on above: Performed By: #### L IPID, ADIFF, ANEU, CMP, CBC, GFR #### [address] [address] .GFRon 07-04-2023 GFR 93 ml/min/1.73sqm Normal [facility] ([place]) Comment on above: Result Comment: GFR Population [...] IPID, ADIFF, ANEU, CMP, CBC, GFR #### [address] [address] GFR Non- 77 ml/min/1.73sqm Normal [facility] ([place]) Comment on above: Result Comment: GFR Population [...] IPID, ADIFF, ANEU, CMP, CBC, GFR #### [address] [address] .NEUABSOrdered By: SYSTEM SY STEM on 07-04-2023 Neutrophil, Absolute 3.7 103/mcL Normal 2.9-6.2 AO Workflow SS Comment on above: Performed By: #### L IPID, ADIFF, ANEU, CMP, CBC, GFR #### [address] [address] BMPon 07-04-2023 BUN/Creatinine Ratio 14 ratio Normal 7-27 [facility] ([place]) Comment on above: Performed By: #### L IPID, ADIFF, ANEU, CMP, CBC, GFR #### [address] [address] BMPOrdered By: SYSTEM SYSTEM on 07-04-2023 Calcium [Mass/Vol] 8.1 mg/dL Low 8.4-10.2 AO ADM SS Comment on above: Performed By: #### L IPID, ADIFF, ANEU, CMP, CBC, GFR #### [address] [address] Chloride [Moles/Vol] 104 mmol/L Normal 98-107 AO A DM SS Comment on above: Performed By: #### L IPID, ADIFF, ANEU, CMP, CBC, GFR #### [place] [id number] CO2 [Moles/Vol] 29 mmol/L Normal 23-31 AO ADM SS Comment on above: Performed By: #### L IPID, ADIFF, ANEU, CMP, CBC, GFR #### [place] [id number] Creatinine [Mass/Vol] 0.73 mg/dL Normal 0.55-1.02 AO ADM SS Comment on above: Performed By: #### L IPID, ADIFF, ANEU, CMP, CBC, GFR #### [place] [id number] Electrolyte Balance 6.0 mEq/L Normal 4.0-15.0 AO AD M SS Comment on above: Performed By: #### L IPID, ADIFF, ANEU, CMP, CBC, GFR #### [address] [address] Glucose [Mass/Vol] 145 mg/dL High 83-110 AO ADM SS Comment on above: Performed By: #### L IPID, ADIFF, ANEU, CMP, CBC, GFR #### [place] [id number] Potassium [Moles/Vol] 4.9 mmol/L Normal 3.5-5.1 AO ADM SS Comment on above: Performed By: #### L IPID, ADIFF, ANEU, CMP, CBC, GFR #### [place] [id number] Sodium [Moles/Vol] 139 mmol/L Normal 136-145 AO ADM SS Comment on above: Performed By: #### L IPID, ADIFF, ANEU, CMP, CBC, GFR #### [place] [id number] Urea nitrogen [Mass/Vol] 10 mg/dL Normal 7-18 AO ADM SS Comment on above: Performed By: #### L IPID, ADIFF, ANEU, CMP, CBC, GFR #### [place] [address] CBCOrdered By: SYSTEM SYSTEM on 07-04-2023 Erythrocyte distribution width (RBC) [Ratio] 14.2 % Normal 11.5-14.5 AO Workflow SS Comment on above: Performed By: #### L IPID, ADIFF, ANEU, CMP, CBC, GFR #### [place] [id number] Hematocrit (Bld) [Volume fraction] 35.4 % Low 37.0-47.0 AO Workflow SS Comment on above: Performed By: #### L IPID, ADIFF, ANEU, CMP, CBC, GFR #### [address] [address] MCH (RBC) [Entitic mass] 28.7 pg Normal 27.0-31.2 AO Workflow SS Comment on above: Performed By: #### L IPID, ADIFF, ANEU, CMP, CBC, GFR #### [address] [address] MCHC 32.4 G/dL Low 33.0-37.0 AO Workflow SS Comment on above: Performed By: #### L IPID, ADIFF, ANEU, CMP, CBC, GFR #### [address] [address] MCV (RBC) [Entitic vol] 88.6 fL Normal 80.0-94.0 A O Workflow SS Comment on above: Performed By: #### L IPID, ADIFF, ANEU, CMP, CBC, GFR #### [address] [address] Platelet mean volume (Bld) [Entitic vol] 6.5 fL Low 7.4-10.4 AO Workflow SS Comment on above: Performed By: #### L IPID, ADIFF, ANEU, CMP, CBC, GFR #### [address] [address] CBCon 07-04-2023 Hgb 11.4 G/dL Low 12.0-16.0 [facility] ([place]) Comment on above: Performed By: #### L IPID, ADIFF, ANEU, CMP, CBC, GFR #### [address] [address] Platelet 165 10 3/mcL Normal 130-400 [facility] ([place]) Comment on above: Performed By: #### L IPID, ADIFF, ANEU, CMP, CBC, GFR #### [address] [address] RBC 3.99 10 6/mcL Low 4.20-5.40 [facility] ([place] Comment on above: Performed By: #### L IPID, ADIFF, ANEU, CMP, CBC, GFR #### [address] [address] WBC 6.3 10 3/mcL Normal 4.6-10.8 [facility] ([place] Comment on above: Performed By: #### L IPID, ADIFF, ANEU, CMP, CBC, GFR #### [address] [address] LABORATORYOrdered By: Darwin Diaz on 07-04-2023 Blood Glucose Testing Reason Routine (07/04/23 4:36 PM) [facility] Work Phone: Glucose [Mass/Vol] 125 mg/dL Invalid Interpretation Code 82 - 115 mg/dL [facility] Work Phone: Blood Glucose Testing Reason Routine (07/04/23 10:38 AM) [facility] Work Phone: LABORATORYOrdered By: Loretta Mejia on 07-04-2023 Glucose [Mass/Vol] 140 mg/dL Invalid Interpretation Code 82 - 115 mg/dL [facility] Work Phone: Glucose [Mass/Vol] 139 mg/dL Invalid Interpretation Code 82 - 115 mg/dL [facility] Work Phone: LABORATORYOrdered By: SYSTEM SYSTEM [...] Workflow SS MGOrdered By: SYSTEM SYSTEM on 07-04-2023 Magnesium [Mass/Vol] 1.7 mg/dL Low 1.8-2.4 AO A DM SS Comment on above: Performed By: #### L IPID, ADIFF, ANEU, CMP, CBC, GFR #### [address] [id number] .Auto Diffon 07-03-2023 Basophil, Absolute 0.0 10 3/mcL Normal 0.0-0.2 [facility] ([place]) Comment on above: Performed By: #### L IPID, ADIFF, ANEU, CMP, CBC, GFR #### [address] [address] Basophils/100 WBC (Bld) 0.5 % Normal 0.0-2.5 [facility] ([place]) Comment on above: Performed By: #### L IPID, ADIFF, ANEU, CMP, CBC, GFR #### [address] [address] Eosinophil, Absolute 0.4 10 3/mcL Normal 0.0-0.4 [facility] ([place] Comment on above: Performed By: #### L IPID, ADIFF, ANEU, CMP, CBC, GFR #### [address] [address] Eosinophils/100 WBC (Bld) 6.7 % Normal 0.0-7.0 [facility] ([place]) Comment on above: Performed By: #### L IPID, ADIFF, ANEU, CMP, CBC, GFR #### [address] [address] Lymphocyte, Absolute 1.8 10 3/mcL Normal 0.8-3.9 [facility] ([place] Comment on above: Performed By: #### L IPID, ADIFF, ANEU, CMP, CBC, GFR #### [address] [address] Lymphocytes/100 WBC (Bld) 31.4 % Normal 10.0-50.0 [facility] ([place] Comment on above: Performed By: #### L IPID, ADIFF, ANEU, CMP, CBC, GFR #### [address] [address] Monocyte, Absolute 0.4 10 3/mcL Normal 0.2-1.0 [facility] ([place] Comment on above: Performed By: #### L IPID, ADIFF, ANEU, CMP, CBC, GFR #### [address] [address] Monocytes/100 WBC (Bld) 6.4 % Normal 1.7-13.0 [facility] ([place] Comment on above: Performed By: #### L IPID, ADIFF, ANEU, CMP, CBC, GFR #### [address] [address] Neutrophils/100 WBC (Bld) 55.0 % Normal 37.0-80.0 [facility] ([place] Comment on above: Performed By: #### L IPID, ADIFF, ANEU, CMP, CBC, GFR #### [address] [address] .GFRon 07-03-2023 GFR 92 ml/min/1.73sqm Normal [facility] ([place]) Comment on above: Result Comment: GFR Population [...] IPID, ADIFF, ANEU, CMP, CBC, GFR #### [address] [address] GFR Non- 76 ml/min/1.73sqm Normal [facility] ([place] Comment on above: Result Comment: GFR Population [...] IPID, ADIFF, ANEU, CMP, CBC, GFR #### [address] [address] .NEUABSon 07-03-2023 Neutrophil, Absolute 3.2 10 3/mcL Normal 2.9-6.2 [facility] ([place] Comment on above: Performed By: #### L IPID, ADIFF, ANEU, CMP, CBC, GFR #### [address] [address] BMPon 07-03-2023 BUN/Creatinine Ratio 11 ratio Normal 7-27 [facility] ([place] Comment on above: Performed By: #### L IPID, ADIFF, ANEU, CMP, CBC, GFR #### [address] [address] Calcium [Mass/Vol] 8.4 mg/dL Normal 8.4-10.2 [facility] ([place]) Comment on above: Performed By: #### L IPID, ADIFF, ANEU, CMP, CBC, GFR #### [address] [address] Chloride [Moles/Vol] 103 mmol/L Normal 98-107 [facility] ([place] Comment on above: Performed By: #### L IPID, ADIFF, ANEU, CMP, CBC, GFR #### [place] [id number] CO2 [Moles/Vol] 31 mmol/L Normal 23-31 [facility] ([place] Comment on above: Performed By: #### L IPID, ADIFF, ANEU, CMP, CBC, GFR #### [place] [id number] Creatinine [Mass/Vol] 0.74 mg/dL Normal 0.55-1.02 [facility] ([place] Comment on above: Performed By: #### L IPID, ADIFF, ANEU, CMP, CBC, GFR #### [place] [id number] Electrolyte Balance 6.0 mEq/L Normal 4.0-15.0 [facility] ([place] Comment on above: Performed By: #### L IPID, ADIFF, ANEU, CMP, CBC, GFR #### [address] [address] Glucose [Mass/Vol] 165 mg/dL High 83-110 [facility] ([place] Comment on above: Performed By: #### L IPID, ADIFF, ANEU, CMP, CBC, GFR #### [address] [address] Potassium [Moles/Vol] 4.6 mmol/L Normal 3.5-5.1 [facility] ([place] Comment on above: Performed By: #### L IPID, ADIFF, ANEU, CMP, CBC, GFR #### [place] [address] Sodium [Moles/Vol] 140 mmol/L Normal 136-145 [facility] ([place] Comment on above: Performed By: #### L IPID, ADIFF, ANEU, CMP, CBC, GFR #### [address] [address] Urea nitrogen [Mass/Vol] 8 mg/dL Normal 7-18 [facility] ([place] Comment on above: Performed By: #### L IPID, ADIFF, ANEU, CMP, CBC, GFR #### [place] [id number] CBCon 07-03-2023 Erythrocyte distribution width (RBC) [Ratio] 14.4 % Normal 11.5-14.5 [facility] ([place] Comment on above: Performed By: #### L IPID, ADIFF, ANEU, CMP, CBC, GFR #### [place] [address] Hematocrit (Bld) [Volume fraction] 36.4 % Low 37.0-47.0 [facility] ([place] Comment on above: Performed By: #### L IPID, ADIFF, ANEU, CMP, CBC, GFR #### [address] [address] Hgb 11.6 G/dL Low 12.0-16.0 [facility] ([place] Comment on above: Performed By: #### L IPID, ADIFF, ANEU, CMP, CBC, GFR #### [address] [address] MCH (RBC) [Entitic mass] 28.3 pg Normal 27.0-31.2 [facility] ([place] Comment on above: Performed By: #### L IPID, ADIFF, ANEU, CMP, CBC, GFR #### [address] [address] MCHC 31.9 G/dL Low 33.0-37.0 [facility] ([place] Comment on above: Performed By: #### L IPID, ADIFF, ANEU, CMP, CBC, GFR #### [address] [address] MCV (RBC) [Entitic vol] 88.9 fL Normal 80.0-94.0 [facility] ([place]) Comment on above: Performed By: #### L IPID, ADIFF, ANEU, CMP, CBC, GFR #### [address] [address] Platelet 158 10 3/mcL Normal 130-400 [facility] ([place] Comment on above: Performed By: #### L IPID, ADIFF, ANEU, CMP, CBC, GFR #### [address] [address] Platelet mean volume (Bld) [Entitic vol] 6.6 fL Low 7.4-10.4 [facility] ([place] Comment on above: Performed By: #### L IPID, ADIFF, ANEU, CMP, CBC, GFR #### [address] [address] RBC 4.10 10 6/mcL Low 4.20-5.40 [facility] ([place] Comment on above: Performed By: #### L IPID, ADIFF, ANEU, CMP, CBC, GFR #### [address] [address] WBC 5.8 10 3/mcL Normal 4.6-10.8 [facility] ([place] Comment on above: Performed By: #### L IPID, ADIFF, ANEU, CMP, CBC, GFR #### [address] [address] LABORATORYOrdered By: Jose Shepard on 07-03-2023 Blood Glucose Testing Reason Routine (07/03/23 9:10 PM) [facility] Work Phone: LABORATORYOrdered By: SYSTEM SYSTEM [...] 07-03-2023 Magnesium [Mass/Vol] 1.8 mg/dL Normal 1.8-2.4 [facility] ([place] Comment on above: Performed By: #### L IPID, ADIFF, ANEU, CMP, CBC, GFR #### [address] [address] .Auto Diffon 07-02-2023 Basophil, Absolute 0.0 10 3/mcL Normal 0.0-0.2 [facility] ([place] Comment on above: Performed By: #### A DIFF, MG, ANEU, GFR, BMP, CBC #### [address] [address] Basophils/100 WBC (Bld) 0.7 % Normal 0.0-2.5 [facility] ([place]) Comment on above: Performed By: #### A DIFF, MG, ANEU, GFR, BMP, CBC #### [address] [address] Eosinophil, Absolute 0.3 10 3/mcL Normal 0.0-0.4 [facility] ([place] Comment on above: Performed By: #### A DIFF, MG, ANEU, GFR, BMP, CBC #### [address] [address] Eosinophils/100 WBC (Bld) 5.6 % Normal 0.0-7.0 [facility] ([place] Comment on above: Performed By: #### A DIFF, MG, ANEU, GFR, BMP, CBC #### [address] [address] Lymphocyte, Absolute 1.8 10 3/mcL Normal 0.8-3.9 [facility] ([place] Comment on above: Performed By: #### A DIFF, MG, ANEU, GFR, BMP, CBC #### [address] [address] Lymphocytes/100 WBC (Bld) 33.2 % Normal 10.0-50.0 [facility] ([place] Comment on above: Performed By: #### A DIFF, MG, ANEU, GFR, BMP, CBC #### [address] [address] Monocyte, Absolute 0.4 10 3/mcL Normal 0.2-1.0 [facility] ([place] Comment on above: Performed By: #### A DIFF, MG, ANEU, GFR, BMP, CBC #### [address] [address] Monocytes/100 WBC (Bld) 7.8 % Normal 1.7-13.0 [facility] ([place] Comment on above: Performed By: #### A DIFF, MG, ANEU, GFR, BMP, CBC #### [address] [address] Neutrophils/100 WBC (Bld) 52.7 % Normal 37.0-80.0 [facility] ([place] Comment on above: Performed By: #### A DIFF, MG, ANEU, GFR, BMP, CBC #### [address] [address] .GFRon 07-02-2023 GFR 85 ml/min/1.73sqm Normal [facility] ([place]) Comment on above: Result Comment: GFR Population [...] IPID, ADIFF, ANEU, CMP, CBC, GFR #### [address] [address] GFR Non- 70 ml/min/1.73sqm Normal [facility] ([place] Comment on above: Result Comment: GFR Population [...] IPID, ADIFF, ANEU, CMP, CBC, GFR #### [address] [address] .NEUABSon 07-02-2023 Neutrophil, Absolute 2.9 10 3/mcL Normal 2.9-6.2 [facility] ([place] Comment on above: Performed By: #### A DIFF, MG, ANEU, GFR, BMP, CBC #### [address] [address] BMPon 07-02-2023 BUN/Creatinine Ratio 11 ratio Normal 7-27 [facility] ([place] Comment on above: Performed By: #### A DIFF, MG, ANEU, GFR, BMP, CBC #### [address] [address] Calcium [Mass/Vol] 8.5 mg/dL Normal 8.4-10.2 [facility] ([place] Comment on above: Performed By: #### A DIFF, MG, ANEU, GFR, BMP, CBC #### [address] [address] Chloride [Moles/Vol] 102 mmol/L Normal 98-107 [facility] ([place] Comment on above: Performed By: #### A DIFF, MG, ANEU, GFR, BMP, CBC #### [address] [address] CO2 [Moles/Vol] 31 mmol/L Normal 23-31 [facility] ([place] Comment on above: Performed By: #### A DIFF, MG, ANEU, GFR, BMP, CBC #### [place] [address] Creatinine [Mass/Vol] 0.79 mg/dL Normal 0.55-1.02 [facility] ([place] Comment on above: Performed By: #### A DIFF, MG, ANEU, GFR, BMP, CBC #### [place] [address] Electrolyte Balance 5.0 mEq/L Normal 4.0-15.0 [facility] ([place] Comment on above: Performed By: #### A DIFF, MG, ANEU, GFR, BMP, CBC #### [address] [address] Glucose [Mass/Vol] 144 mg/dL High 83-110 [facility] ([place] Comment on above: Performed By: #### A DIFF, MG, ANEU, GFR, BMP, CBC #### [address] [address] Potassium [Moles/Vol] 3.9 mmol/L Normal 3.5-5.1 [facility] ([place] Comment on above: Performed By: #### A DIFF, MG, ANEU, GFR, BMP, CBC #### [place] [address] Sodium [Moles/Vol] 138 mmol/L Normal 136-145 [facility] ([place] Comment on above: Performed By: #### A DIFF, MG, ANEU, GFR, BMP, CBC #### [place] [phone] Urea nitrogen [Mass/Vol] 9 mg/dL Normal 7-18 [facility] ([place] Comment on above: Performed By: #### A DIFF, MG, ANEU, GFR, BMP, CBC #### [address] [address] CBCon 07-02-2023 Erythrocyte distribution width (RBC) [Ratio] 14.6 % High 11.5-14.5 [facility] ([place] Comment on above: Performed By: #### A DIFF, MG, ANEU, GFR, BMP, CBC #### [place] [address] Hematocrit (Bld) [Volume fraction] 35.7 % Low 37.0-47.0 [facility] ([place] Comment on above: Performed By: #### A DIFF, MG, ANEU, GFR, BMP, CBC #### [place] [address] Hgb 11.3 G/dL Low 12.0-16.0 [facility] ([place] Comment on above: Performed By: #### A DIFF, MG, ANEU, GFR, BMP, CBC #### [place] [id number] MCH (RBC) [Entitic mass] 28.1 pg Normal 27.0-31.2 [facility] ([place] Comment on above: Performed By: #### A DIFF, MG, ANEU, GFR, BMP, CBC #### [place] [address] MCHC 31.7 G/dL Low 33.0-37.0 [facility] ([place] Comment on above: Performed By: #### A DIFF, MG, ANEU, GFR, BMP, CBC #### [place] [address] MCV (RBC) [Entitic vol] 88.6 fL Normal 80.0-94.0 [facility] ([place] Comment on above: Performed By: #### A DIFF, MG, ANEU, GFR, BMP, CBC #### [address] [address] Platelet 159 10 3/mcL Normal 130-400 [facility] ([place] Comment on above: Performed By: #### A DIFF, MG, ANEU, GFR, BMP, CBC #### [address] [address] Platelet mean volume (Bld) [Entitic vol] 6.6 fL Low 7.4-10.4 [facility] ([place] Comment on above: Performed By: #### A DIFF, MG, ANEU, GFR, BMP, CBC #### [address] [address] RBC 4.03 10 6/mcL Low 4.20-5.40 [facility] ([place] Comment on above: Performed By: #### A DIFF, MG, ANEU, GFR, BMP, CBC #### [address] [address] WBC 5.5 10 3/mcL Normal 4.6-10.8 [facility] ([place] Comment on above: Performed By: #### A DIFF, MG, ANEU, GFR, BMP, CBC #### [address] [address] LABORATORYOrdered By: SYSTEM SYSTEM on 07-02-2023 Basophil, [...] 07-02-2023 Magnesium [Mass/Vol] 1.7 mg/dL Low 1.8-2.4 [facility] ([place] Comment on above: Performed By: #### L IPID, ADIFF, ANEU, CMP, CBC, GFR #### [address] [address] .Auto Diffon 07-01-2023 Basophil, Absolute 0.0 10 3/mcL Normal 0.0-0.2 [facility] ([place] Comment on above: Performed By: #### L IPID, ADIFF, ANEU, CMP, CBC, GFR #### [address] [address] Basophils/100 WBC (Bld) 0.5 % Normal 0.0-2.5 [facility] ([place] Comment on above: Performed By: #### L IPID, ADIFF, ANEU, CMP, CBC, GFR #### [address] [address] Eosinophil, Absolute 0.4 10 3/mcL Normal 0.0-0.4 [facility] ([place] Comment on above: Performed By: #### L IPID, ADIFF, ANEU, CMP, CBC, GFR #### [address] [address] Eosinophils/100 WBC (Bld) 5.7 % Normal 0.0-7.0 [facility] ([place] Comment on above: Performed By: #### L IPID, ADIFF, ANEU, CMP, CBC, GFR #### [address] [address] Lymphocyte, Absolute 1.9 10 3/mcL Normal 0.8-3.9 [facility] ([place] Comment on above: Performed By: #### L IPID, ADIFF, ANEU, CMP, CBC, GFR #### [address] [address] Lymphocytes/100 WBC (Bld) 28.0 % Normal 10.0-50.0 [facility] ([place] Comment on above: Performed By: #### L IPID, ADIFF, ANEU, CMP, CBC, GFR #### [address] [address] Monocyte, Absolute 0.5 10 3/mcL Normal 0.2-1.0 [facility] ([place] Comment on above: Performed By: #### L IPID, ADIFF, ANEU, CMP, CBC, GFR #### [address] [address] Monocytes/100 WBC (Bld) 6.9 % Normal 1.7-13.0 [facility] ([place] Comment on above: Performed By: #### L IPID, ADIFF, ANEU, CMP, CBC, GFR #### [address] [address] Neutrophils/100 WBC (Bld) 58.9 % Normal 37.0-80.0 [facility] ([place] Comment on above: Performed By: #### L IPID, ADIFF, ANEU, CMP, CBC, GFR #### [address] [address] .GFRon 07-01-2023 GFR 73 ml/min/1.73sqm Normal [facility] ([place] Comment on above: Result Comment: GFR Population [...] IPID, ADIFF, ANEU, CMP, CBC, GFR #### [address] [address] GFR Non- 60 ml/min/1.73sqm Normal [facility] ([place] Comment on above: Result Comment: GFR Population [...] IPID, ADIFF, ANEU, CMP, CBC, GFR #### [address] [address] .NEUABSon 07-01-2023 Neutrophil, Absolute 4.1 10 3/mcL Normal 2.9-6.2 [facility] ([place] Comment on above: Performed By: #### L IPID, ADIFF, ANEU, CMP, CBC, GFR #### [address] [address] BMPon 07-01-2023 BUN/Creatinine Ratio 12 ratio Normal 7-27 [facility] ([place] Comment on above: Performed By: #### L IPID, ADIFF, ANEU, CMP, CBC, GFR #### [address] [address] Calcium [Mass/Vol] 8.5 mg/dL Normal 8.4-10.2 [facility] ([place] Comment on above: Performed By: #### L IPID, ADIFF, ANEU, CMP, CBC, GFR #### [address] [address] Chloride [Moles/Vol] 103 mmol/L Normal 98-107 [facility] ([place] Comment on above: Performed By: #### L IPID, ADIFF, ANEU, CMP, CBC, GFR #### [address] [address] CO2 [Moles/Vol] 32 mmol/L High 23-31 [facility] ([place] Comment on above: Performed By: #### L IPID, ADIFF, ANEU, CMP, CBC, GFR #### [address] [address] Creatinine [Mass/Vol] 0.90 mg/dL Normal 0.55-1.02 [facility] ([place] Comment on above: Performed By: #### L IPID, ADIFF, ANEU, CMP, CBC, GFR #### [address] [address] Electrolyte Balance 5.0 mEq/L Normal 4.0-15.0 [facility] ([place] Comment on above: Performed By: #### L IPID, ADIFF, ANEU, CMP, CBC, GFR #### [place] [address] Glucose [Mass/Vol] 138 mg/dL High 83-110 [facility] ([place] Comment on above: Performed By: #### L IPID, ADIFF, ANEU, CMP, CBC, GFR #### [address] [address] Potassium [Moles/Vol] 4.0 mmol/L Normal 3.5-5.1 [facility] ([place] Comment on above: Performed By: #### L IPID, ADIFF, ANEU, CMP, CBC, GFR #### [address] [address] Sodium [Moles/Vol] 140 mmol/L Normal 136-145 [facility] ([place] Comment on above: Performed By: #### L IPID, ADIFF, ANEU, CMP, CBC, GFR #### [address] [address] Urea nitrogen [Mass/Vol] 11 mg/dL Normal 7-18 [facility] ([place] Comment on above: Performed By: #### L IPID, ADIFF, ANEU, CMP, CBC, GFR #### [address] [address] CBCon 07-01-2023 Erythrocyte distribution width (RBC) [Ratio] 14.6 % High 11.5-14.5 [facility] ([place] Comment on above: Performed By: #### L IPID, ADIFF, ANEU, CMP, CBC, GFR #### [place] [id number] Hematocrit (Bld) [Volume fraction] 36.2 % Low 37.0-47.0 [facility] ([place] Comment on above: Performed By: #### L IPID, ADIFF, ANEU, CMP, CBC, GFR #### [place] [id number] Hgb 11.6 G/dL Low 12.0-16.0 [facility] ([place] Comment on above: Performed By: #### L IPID, ADIFF, ANEU, CMP, CBC, GFR #### [address] [address] MCH (RBC) [Entitic mass] 28.1 pg Normal 27.0-31.2 [facility] ([place] Comment on above: Performed By: #### L IPID, ADIFF, ANEU, CMP, CBC, GFR #### [address] [address] MCHC 32.0 G/dL Low 33.0-37.0 [facility] ([place] Comment on above: Performed By: #### L IPID, ADIFF, ANEU, CMP, CBC, GFR #### [address] [address] MCV (RBC) [Entitic vol] 87.8 fL Normal 80.0-94.0 [facility] ([place] Comment on above: Performed By: #### L IPID, ADIFF, ANEU, CMP, CBC, GFR #### [address] [address] Platelet 170 10 3/mcL Normal 130-400 [facility] ([place] Comment on above: Performed By: #### L IPID, ADIFF, ANEU, CMP, CBC, GFR #### [address] [address] Platelet mean volume (Bld) [Entitic vol] 6.4 fL Low 7.4-10.4 [facility] ([place] Comment on above: Performed By: #### L IPID, ADIFF, ANEU, CMP, CBC, GFR #### [address] [address] RBC 4.12 10 6/mcL Low 4.20-5.40 [facility] ([place] Comment on above: Performed By: #### L IPID, ADIFF, ANEU, CMP, CBC, GFR #### [address] [address] WBC 6.9 10 3/mcL Normal 4.6-10.8 [facility] ([place] Comment on above: Performed By: #### L IPID, ADIFF, ANEU, CMP, CBC, GFR #### [address] [address] MGon 07-01-2023 Magnesium [Mass/Vol] 1.5 mg/dL Low 1.8-2.4 [facility] ([place] Comment on above: Performed By: #### L IPID, ADIFF, ANEU, CMP, CBC, GFR #### [address] [address] .Auto Diffon 06-30-2023 Basophil, Absolute 0.0 10 3/mcL Normal 0.0-0.2 [facility] ([place] Comment on above: Performed By: #### L IPID, ADIFF, ANEU, CMP, CBC, GFR #### [address] [address] Basophils/100 WBC (Bld) 0.4 % Normal 0.0-2.5 [facility] ([place] Comment on above: Performed By: #### L IPID, ADIFF, ANEU, CMP, CBC, GFR #### [address] [address] Eosinophil, Absolute 0.5 10 3/mcL High 0.0-0.4 [facility] ([place] Comment on above: Performed By: #### L IPID, ADIFF, ANEU, CMP, CBC, GFR #### [address] [address] Eosinophils/100 WBC (Bld) 4.7 % Normal 0.0-7.0 [facility] ([place] Comment on above: Performed By: #### L IPID, ADIFF, ANEU, CMP, CBC, GFR #### [address] [address] Lymphocyte, Absolute 1.7 10 3/mcL Normal 0.8-3.9 [facility] ([place] Comment on above: Performed By: #### L IPID, ADIFF, ANEU, CMP, CBC, GFR #### [address] [address] Lymphocytes/100 WBC (Bld) 17.7 % Normal 10.0-50.0 [facility] ([place] Comment on above: Performed By: #### L IPID, ADIFF, ANEU, CMP, CBC, GFR #### [address] [address] Monocyte, Absolute 0.5 10 3/mcL Normal 0.2-1.0 [facility] ([place] Comment on above: Performed By: #### L IPID, ADIFF, ANEU, CMP, CBC, GFR #### [address] [address] Monocytes/100 WBC (Bld) 5.4 % Normal 1.7-13.0 [facility] ([place] Comment on above: Performed By: #### L IPID, ADIFF, ANEU, CMP, CBC, GFR #### [address] [address] Neutrophils/100 WBC (Bld) 71.8 % Normal 37.0-80.0 [facility] ([place] Comment on above: Performed By: #### L IPID, ADIFF, ANEU, CMP, CBC, GFR #### [address] [address] .GFRon 06-30-2023 GFR 75 ml/min/1.73sqm Normal [facility] ([place] Comment on above: Result Comment: GFR Population [...] IPID, ADIFF, ANEU, CMP, CBC, GFR #### [address] [address] GFR Non- 62 ml/min/1.73sqm Normal [facility] ([place] Comment on above: Result Comment: GFR Population [...] IPID, ADIFF, ANEU, CMP, CBC, GFR #### [address] [address] .MDWon 06-30-2023 Monocyte Distribution Width 17.82 Normal 0.00-20.00 [facility] ([place] Comment on above: Result Comment: For ED adult patients suspected of sepsis, MDW<=20.0 does not rule out sepsis or risk of sepsis Performed By: #### L IPID, ADIFF, ANEU, CMP, CBC, GFR #### [address] [address] .NEUABSon 06-30-2023 Neutrophil, Absolute 7.1 10 3/mcL High 2.9-6.2 [facility] ([place] Comment on above: Performed By: #### L IPID, ADIFF, ANEU, CMP, CBC, GFR #### [address] [address] BMPon 06-30-2023 BUN/Creatinine Ratio 10 ratio Normal 7-27 [facility] ([place] Comment on above: Performed By: #### L IPID, ADIFF, ANEU, CMP, CBC, GFR #### [address] [address] Calcium [Mass/Vol] 9.0 mg/dL Normal 8.4-10.2 [facility] ([place] Comment on above: Performed By: #### L IPID, ADIFF, ANEU, CMP, CBC, GFR #### [address] [address] Chloride [Moles/Vol] 100 mmol/L Normal 98-107 [facility] ([place] Comment on above: Performed By: #### L IPID, ADIFF, ANEU, CMP, CBC, GFR #### [address] [address] CO2 [Moles/Vol] 33 mmol/L High 23-31 [facility] ([place] Comment on above: Performed By: #### L IPID, ADIFF, ANEU, CMP, CBC, GFR #### [address] [address] Creatinine [Mass/Vol] 0.88 mg/dL Normal 0.55-1.02 [facility] ([place] Comment on above: Performed By: #### L IPID, ADIFF, ANEU, CMP, CBC, GFR #### [address] [address] Electrolyte Balance 6.0 mEq/L Normal 4.0-15.0 [facility] ([place] Comment on above: Performed By: #### L IPID, ADIFF, ANEU, CMP, CBC, GFR #### [address] [address] Glucose [Mass/Vol] 147 mg/dL High 83-110 [facility] ([place] Comment on above: Performed By: #### L IPID, ADIFF, ANEU, CMP, CBC, GFR #### [address] [address] Potassium [Moles/Vol] 3.8 mmol/L Normal 3.5-5.1 [facility] ([place] Comment on above: Performed By: #### L IPID, ADIFF, ANEU, CMP, CBC, GFR #### [address] [address] Sodium [Moles/Vol] 139 mmol/L Normal 136-145 [facility] ([place] Comment on above: Performed By: #### L IPID, ADIFF, ANEU, CMP, CBC, GFR #### [address] [address] Urea nitrogen [Mass/Vol] 9 mg/dL Normal 7-18 [facility] ([place] Comment on above: Performed By: #### L IPID, ADIFF, ANEU, CMP, CBC, GFR #### [address] [address] CBCon 06-30-2023 Erythrocyte distribution width (RBC) [Ratio] 14.6 % High 11.5-14.5 [facility] ([place] Comment on above: Performed By: #### L IPID, ADIFF, ANEU, CMP, CBC, GFR #### [address] [address] Hematocrit (Bld) [Volume fraction] 42.0 % Normal 37.0-47.0 [facility] ([place]) Comment on above: Performed By: #### L IPID, ADIFF, ANEU, CMP, CBC, GFR #### [address] [address] Hgb 13.4 G/dL Normal 12.0-16.0 [facility] ([place]) Comment on above: Performed By: #### L IPID, ADIFF, ANEU, CMP, CBC, GFR #### [address] [address] MCH (RBC) [Entitic mass] 28.4 pg Normal 27.0-31.2 [facility] ([place] Comment on above: Performed By: #### L IPID, ADIFF, ANEU, CMP, CBC, GFR #### [place] [address] MCHC 32.0 G/dL Low 33.0-37.0 [facility] ([place] Comment on above: Performed By: #### L IPID, ADIFF, ANEU, CMP, CBC, GFR #### [place] [id number] MCV (RBC) [Entitic vol] 88.5 fL Normal 80.0-94.0 [facility] ([place]) Comment on above: Performed By: #### L IPID, ADIFF, ANEU, CMP, CBC, GFR #### [address] [address] Platelet 188 10 3/mcL Normal 130-400 [facility] ([place]) Comment on above: Performed By: #### L IPID, ADIFF, ANEU, CMP, CBC, GFR #### [address] [address] Platelet mean volume (Bld) [Entitic vol] 6.2 fL Low 7.4-10.4 [facility] ([place] Comment on above: Performed By: #### L IPID, ADIFF, ANEU, CMP, CBC, GFR #### [address] [address] RBC 4.74 10 6/mcL Normal 4.20-5.40 [facility] ([place] Comment on above: Performed By: #### L IPID, ADIFF, ANEU, CMP, CBC, GFR #### [address] [address] WBC 9.9 10 3/mcL Normal 4.6-10.8 [facility] ([place] Comment on above: Performed By: #### L IPID, ADIFF, ANEU, CMP, CBC, GFR #### [address] [address] LABORATORYOrdered By: SYSTEM SYSTEM on 06-30-2023 Monocyte distribution width Auto (Bld) [Entitic vol] 17.82 1 Invalid Interpretation Code 0.00 - 20.00 AO Workflow SS Comment on above: Result Comment: For ED adult patients suspected of sepsis, MDW<=20.0 does not rule out sepsis or risk of sepsis [facility] 06-30-2023 U Creatinine 90.7 mg/dL Normal 28.0-117.0 [facility] ([place] Comment on above: Performed By: #### L IPID, ADIFF, ANEU, CMP, CBC, GFR #### [address] [address] U Microalb 1927 mcg/dL Normal [facility] ([place] Comment on above: Performed By: #### L IPID, ADIFF, ANEU, CMP, CBC, GFR #### [address] [address] U Ratio Alb/Cre 21 mcg/mg Normal 0-30 [facility] ([place] Comment on above: Performed By: #### L IPID, ADIFF, ANEU, CMP, CBC, GFR #### [address] [address] XR [facility] XR ANKLE AND FOOT 6 VIEWS [...] 4:00:26 PM Ordering Provider: VICENTEALFONZO [facility] ([place] XR KNEE 1 OR 2 VIEWS LEFTon [...] 4:01:46 PM Ordering Provider: VICENTE [facility] ([place]) .Auto Diffon 02-05-2023 Basophil, Absolute 0.1 10 3/mcL Normal 0.0-0.2 [facility]) Comment on above: Performed By: #### L IPID, ADIFF, ANEU, CMP, CBC, GFR #### [facility] [address] [place], [place] [address] Basophils/100 WBC (Bld) 0.7 % Normal 0.0-2.5 [facility] ([place]) Comment on above: Performed By: #### L IPID, ADIFF, ANEU, CMP, CBC, GFR #### [address] [address] Eosinophil, Absolute 0.7 10 3/mcL High 0.0-0.4 [facility] ([place]) Comment on above: Performed By: #### L IPID, ADIFF, ANEU, CMP, CBC, GFR #### [address] [address] Eosinophils/100 WBC (Bld) 8.8 % High 0.0-7.0 [facility] ([place] Comment on above: Performed By: #### L IPID, ADIFF, ANEU, CMP, CBC, GFR #### [address] [address] Lymphocyte, Absolute 2.8 10 3/mcL Normal 0.8-3.9 [facility] ([place] Comment on above: Performed By: #### L IPID, ADIFF, ANEU, CMP, CBC, GFR #### [address] [address] Lymphocytes/100 WBC (Bld) 34.0 % Normal 10.0-50.0 [facility] ([place] Comment on above: Performed By: #### L IPID, ADIFF, ANEU, CMP, CBC, GFR #### [address] [address] Monocyte, Absolute 0.6 10 3/mcL Normal 0.2-1.0 [facility] ([place]) Comment on above: Performed By: #### L IPID, ADIFF, ANEU, CMP, CBC, GFR #### [address] [address] Monocytes/100 WBC (Bld) 7.3 % Normal 1.7-13.0 [facility] ([place] Comment on above: Performed By: #### L IPID, ADIFF, ANEU, CMP, CBC, GFR #### [address] [address] Neutrophils/100 WBC (Bld) 49.2 % Normal 37.0-80.0 [facility] ([place] Comment on above: Performed By: #### L IPID, ADIFF, ANEU, CMP, CBC, GFR #### [address] [address] .GFRon 02-05-2023 GFR Non- 63 ml/min/1.73sqm Normal [facility] ([place]) Comment on above: Result Comment: GFR Population [...] IPID, ADIFF, ANEU, CMP, CBC, GFR #### [address] [address] GFR 76 ml/min/1.73sqm Normal [facility] ([place] Comment on above: Result Comment: GFR Population [...] IPID, ADIFF, ANEU, CMP, CBC, GFR #### [address] [address] .NEUABSon 02-05-2023 Neutrophil, Absolute 4.1 10 3/mcL Normal 2.9-6.2 [facility] ([place] Comment on above: Performed By: #### L IPID, ADIFF, ANEU, CMP, CBC, GFR #### [place] [address] CBCon 02-05-2023 Erythrocyte distribution width (RBC) [Ratio] 14.1 % Normal 11.5-14.5 [facility] ([place] Comment on above: Performed By: #### L IPID, ADIFF, ANEU, CMP, CBC, GFR #### [place] [address] Hematocrit (Bld) [Volume fraction] 45.2 % Normal 37.0-47.0 [facility] ([place] Comment on above: Performed By: #### L IPID, ADIFF, ANEU, CMP, CBC, GFR #### [place] [address] Hgb 14.4 G/dL Normal 12.0-16.0 [facility] ([place] Comment on above: Performed By: #### L IPID, ADIFF, ANEU, CMP, CBC, GFR #### [place] [address] MCH (RBC) [Entitic mass] 26.9 pg Low 27.0-31.2 [facility] ([place] Comment on above: Performed By: #### L IPID, ADIFF, ANEU, CMP, CBC, GFR #### [place] [address] MCHC 31.8 G/dL Low 33.0-37.0 [facility] ([place] Comment on above: Performed By: #### L IPID, ADIFF, ANEU, CMP, CBC, GFR #### [place] [address] MCV (RBC) [Entitic vol] 84.7 fL Normal 80.0-94.0 [facility] ([place] Comment on above: Performed By: #### L IPID, ADIFF, ANEU, CMP, CBC, GFR #### [address] [address] Platelet 237 10 3/mcL Normal 130-400 [facility] ([place] Comment on above: Performed By: #### L IPID, ADIFF, ANEU, CMP, CBC, GFR #### [address] [address] Platelet mean volume (Bld) [Entitic vol] 6.5 fL Low 7.4-10.4 [facility] ([place] Comment on above: Performed By: #### L IPID, ADIFF, ANEU, CMP, CBC, GFR #### [address] [address] RBC 5.34 10 6/mcL Normal 4.20-5.40 [facility] ([place] Comment on above: Performed By: #### L IPID, ADIFF, ANEU, CMP, CBC, GFR #### [address] [address] WBC 8.3 10 3/mcL Normal 4.6-10.8 [facility] ([place] Comment on above: Performed By: #### L IPID, ADIFF, ANEU, CMP, CBC, GFR #### [address] [address] CMPon 02-05-2023 Albumin Level 3.9 G/dL Normal 3.4-4.8 [facility] ([place] Comment on above: Performed By: #### L IPID, ADIFF, ANEU, CMP, CBC, GFR #### [address] [address] Albumin/Globulin [Mass ratio] 1.3 {ratio} Normal 1.1-2.5 [facility] ([place] Comment on above: Performed By: #### L IPID, ADIFF, ANEU, CMP, CBC, GFR #### [address] [address] ALP [Catalytic activity/Vol] 65 U/L Normal 40-135 [facility] ([place] Comment on above: Performed By: #### L IPID, ADIFF, ANEU, CMP, CBC, GFR #### [address] [address] ALT [Catalytic activity/Vol] 20 U/L Normal 14-59 [facility] ([place] Comment on above: Performed By: #### L IPID, ADIFF, ANEU, CMP, CBC, GFR #### [address] [address] AST [Catalytic activity/Vol] 19 U/L Normal 10-40 [facility] ([place] Comment on above: Performed By: #### L IPID, ADIFF, ANEU, CMP, CBC, GFR #### [address] [address] Bili Total 0.7 mg/dL Normal 0.2-1.0 [facility] ([place]) Comment on above: Result Comment: Use of this assay is not recommended for patients undergoing treatment with eltrombopag due to the potential for falsely elevated results. Performed By: #### L IPID, ADIFF, ANEU, CMP, CBC, GFR #### [address] [address] BUN/Creatinine Ratio 14 ratio Normal 7-27 [facility] ([place]) Comment on above: Performed By: #### L IPID, ADIFF, ANEU, CMP, CBC, GFR #### [address] [address] Calcium [Mass/Vol] 10.1 mg/dL Normal 8.4-10.2 [facility] ([place]) Comment on above: Performed By: #### L IPID, ADIFF, ANEU, CMP, CBC, GFR #### [address] [address] Chloride [Moles/Vol] 100 mmol/L Normal 98-107 [facility] ([place] Comment on above: Performed By: #### L IPID, ADIFF, ANEU, CMP, CBC, GFR #### [address] [address] CO2 [Moles/Vol] 33 mmol/L High 23-31 [facility] ([place] Comment on above: Performed By: #### L IPID, ADIFF, ANEU, CMP, CBC, GFR #### [address] [address] Creatinine [Mass/Vol] 0.87 mg/dL Normal 0.55-1.02 [facility] ([place]) Comment on above: Performed By: #### L IPID, ADIFF, ANEU, CMP, CBC, GFR #### [address] [address] Electrolyte Balance 8.0 mEq/L Normal 4.0-15.0 [facility] ([place]) Comment on above: Performed By: #### L IPID, ADIFF, ANEU, CMP, CBC, GFR #### [place] [address] Globulin 3.0 G/dL Normal [facility] ([place] Comment on above: Performed By: #### L IPID, ADIFF, ANEU, CMP, CBC, GFR #### [place] [address] Glucose [Mass/Vol] 127 mg/dL High 83-110 [facility] ([place] Comment on above: Performed By: #### L IPID, ADIFF, ANEU, CMP, CBC, GFR #### [place] [address] Potassium [Moles/Vol] 4.7 mmol/L Normal 3.5-5.1 [facility] ([place] Comment on above: Performed By: #### L IPID, ADIFF, ANEU, CMP, CBC, GFR #### [place] [address] Sodium [Moles/Vol] 141 mmol/L Normal 136-145 [facility] ([place] Comment on above: Performed By: #### L IPID, ADIFF, ANEU, CMP, CBC, GFR #### [address] [address] Total Protein 6.9 G/dL Normal 6.4-8.2 [facility] ([place] Comment on above: Performed By: #### L IPID, ADIFF, ANEU, CMP, CBC, GFR #### [place] [id number] [place], [place] [address] Urea nitrogen [Mass/Vol] 12 mg/dL Normal 7-18 [facility] ([place] Comment on above: Performed By: #### L IPID, ADIFF, ANEU, CMP, CBC, GFR #### [address] [address] LABORATORYOrdered By: SYSTEM SYSTEM on 02-05-2023 Albumin [...] 02-05-2023 Cholesterol [Mass/Vol] 147 mg/dL Normal 0-200 [facility] ([place] Comment on above: Result Comment: Chol esterol Reference Interval: Less than 200 Desirable 200-239 Borderline high risk 240 and above High risk Performed By: #### L IPID, ADIFF, ANEU, CMP, CBC, GFR #### [place] [address] [place], [place] [address] Cholesterol in HDL [Mass/Vol] 59 mg/dL Normal 40-60 [facility] ([place] Comment on above: Performed By: #### L IPID, ADIFF, ANEU, CMP, CBC, GFR #### [place] [id number] [place], [place] [address] Cholesterol in LDL [Mass/Vol] 54 mg/dL Normal 0-130 [facility] ([place] Comment on above: Performed By: #### L IPID, ADIFF, ANEU, CMP, CBC, GFR #### [place] [address] [place], [place] [address] Triglyceride [Mass/Vol] 172 mg/dL High 0-150 [facility] ([place] Comment on above: Result Comment: Trig lyceride Reference Interval: Less than 150 Normal 150-199 Borderline high risk 200-499 High risk 500 or higher Very high risk Performed By: #### L IPID, ADIFF, ANEU, CMP, CBC, GFR #### [place] [id number] [place], [place] [address] LABORATORYOrdered By: Karli Benites on 01-29-2022 Albumin [...] Time Vital Sign Value Performing Clinician Facility 05-17-2025 10:04-0400 Body height 175.26 cm Balwinder Alves MD [facility] 05-17-2025 10:04-0400 Body mass index (BMI) [Ratio] 39.9 kg/m2 Balwinder Alves MD [facility] 05-17-2025 10:04-0400 Body weight 122.46 kg Balwinder Alves MD [facility] 05-17-2025 10:04-0400 Diastolic blood pressure 90 mm[Hg] Balwinder Alves MD [facility] 05-17-2025 10:04-0400 Heart rate 76 /min Balwinder Alves MD [facility] 05-17-2025 10:04-0400 Systolic blood pressure 150 mm[Hg] Balwinder Alves MD [facility] 02-06-2024 20:00-0400 Body temperature 98 [degF] [facility] 02-06-2024 20:00-0400 Diastolic blood pressure 73 mm[Hg] [facility] 02-06-2024 20:00-0400 Heart rate 68 /min [facility] 02-06-2024 20:00-0400 Respiratory rate 18 /min [facility] 02-06-2024 20:00-0400 SaO2% (BldA) [Mass fraction] 97 % [facility] 02-06-2024 20:00-0400 Systolic blood pressure 173 mm[Hg] [facility] 02-06-2024 15:49-0400 Body height 175.26 cm [facility] 02-06-2024 15:49-0400 Body mass index (BMI) [Ratio] 38.9 kg/m2 [facility] 02-06-2024 15:49-0400 Body weight 119.74 kg [facility] 12-09-2023 10:13-0500 Body weight 120.2 kg Tete Trevino PA Work Phone: [facility] 12-09-2023 10:13-0500 Diastolic blood pressure 66 mm[Hg] Tete Trevino PA Work Phone: [facility] 12-09-2023 10:13-0500 Heart rate 69 /min Tete Trevino PA Work Phone: [facility] 12-09-2023 10:13-0500 Systolic blood pressure 190 mm[Hg] Tete Trevino PA Work Phone: [facility] 07-16-2023 10:53-0400 Body height 167.64 cm CHIEF SOLUTION ARCHITECT-C Laci Brewer CHIEF SOLUTION ARCHITECT Work Phone: [facility] 07-16-2023 10:53-0400 Body mass index (BMI) [Ratio] 45.8 kg/m2 CHIEF SOLUTION ARCHITECT-C Laci Brewer CHIEF SOLUTION ARCHITECT Work Phone: [facility] 07-16-2023 10:53-0400 Body weight 128.82 kg CHIEF SOLUTION ARCHITECT-C Laci Beltrantes CHIEF SOLUTION ARCHITECT Work Phone: [facility] 07-04-2023 19:10-0400 Body temperature 98.24 [degF] ROHAN MCDOWELL APRN-MANAGER [employer] [facility] 07-04-2023 19:10-0400 Diastolic Blood Pressure Non-Invasive 46 1 ROHAN MCDOWELL APRN-MANAGER [employer] [facility] 07-04-2023 19:10-0400 Heart rate 78 /min ROHAN KAPPER TURNTABLE WORKER-MANAGER [employer] [facility] 07-04-2023 19:10-0400 Reason For Taking VItal Signs ROHAN 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 [facility] 07-04-2023 19:10-0400 Respiratory rate 18 /min ROHAN 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 [facility] 07-04-2023 19:10-0400 Systolic Blood Pressure Non-Invasive 142 1 ROHAN CASPERER TURNTABLE WORKER-MANAGER [employer] [facility] 07-04-2023 16:39-0400 Diastolic Blood Pressure Non-Invasive 60 1 ROHAN 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 [facility] 07-04-2023 16:39-0400 Systolic Blood Pressure Non-Invasive 158 1 ROHAN CASPERER TURNTABLE WORKER-MANAGER [employer] [facility] 07-04-2023 16:22-0400 Body temperature 97.88 [degF] ROHAN CASPERER TURNTABLE WORKER-MANAGER [employer] [facility] 07-04-2023 16:22-0400 Diastolic Blood Pressure Non-Invasive 121 1 ROHAN 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 [facility] 07-04-2023 16:22-0400 Heart rate 72 /min ROHAN 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 [facility] 07-04-2023 16:22-0400 Respiratory rate 20 /min ROHAN CASPERER TURNTABLE WORKER-MANAGER [employer] [facility] 07-04-2023 16:22-0400 Systolic Blood Pressure Non-Invasive 152 1 ROHAN CASPERER TURNTABLE WORKER-MANAGER [employer] [facility] 07-04-2023 12:17-0400 Body temperature 97.88 [degF] ROHAN KAPPER TURNTABLE WORKER-MANAGER [employer] [facility] 07-04-2023 12:17-0400 Heart rate 72 /min ROHAN KAPPER TURNTABLE WORKER-MANAGER [employer] [facility] 07-04-2023 12:17-0400 Respiratory rate 20 /min ROHAN KAPPER TURNTABLE WORKER-MANAGER [employer] [facility] 07-04-2023 11:20-0400 Heart rate 74 /min ROHAN KAPPER TURNTABLE WORKER-MANAGER [employer] [facility] 07-04-2023 07:54-0400 Heart rate 74 /min ROHAN KAPPER TURNTABLE WORKER-MANAGER [employer] [facility] 07-04-2023 04:11-0400 Heart rate 82 /min ROHAN KAPPER TURNTABLE WORKER-MANAGER [employer] [facility] 07-04-2023 04:11-0400 Reason For Taking VItal Signs ROHAN KAPPER TURNTABLE WORKER-MANAGER [employer] [facility] 07-03-2023 23:30-0400 Reason For Taking VItal Signs ROHAN KAPPER TURNTABLE WORKER-MANAGER [employer] [facility] 07-03-2023 03:07-0400 Heart rate 78 /min ROHAN KAPPER TURNTABLE WORKER-MANAGER [employer] [facility] 07-02-2023 22:59-0400 Heart rate 82 /min ROHAN KAPPER TURNTABLE WORKER-MANAGER [employer] [facility] 06-30-2023 18:36-0400 Body height 160 cm ROHAN KAPPER TURNTABLE WORKER-MANAGER [employer] [facility] 06-30-2023 18:36-0400 Body weight 128 kg ROHAN KAPPER TURNTABLE WORKER-MANAGER [employer] [facility] 06-30-2023 18:36-0400 Body weight 50 kg/m2 ROHAN 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 [facility] 06-30-2023 15:17-0400 Blood Pressure Location ROHAN 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 [facility] 06-30-2023 15:17-0400 Blood Pressure Method ROHAN 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 [facility] Encounters Encounter Date Encounter Type Care Provider Facility Start: 05-17-2025 End: 05-17-2025 ambulatory Balwinder Alves MD -[facility] Start: 05-17-2025 End: 05-17-[address] Dorota James MD -[facility] Work Phone: Start: 04-04-2025 Non-patient / Non-visit Dr. Dorota taylor MD -[facility] Work Phone: Start: 03-31-2025 End: 03-31-2025 ambulatory Balwinder Alves MD -[facility] Start: 03-31-2025 End: 03-31-[address] Dorota James MD -[facility] Work Phone: Start: 03-31-2025 End: 03-31-2025 ambulatory Dorota James Facility:[facility] Start: 03-16-2025 ambulatory Balwinder Alves OLS Facil ity:[facility] Start: 03-16-2025 Registered Referred Balwinder Alves MD [facility] Start: 03-15-2025 ambulatory Balwinder MARSHALL Facil ity:[facility] Start: 03-15-2025 Registered Referred Balwinder Alves MD [facility] Start: 03-02-2025 ambulatory Balwinder MARSHALL Facil ity:[facility] Start: 03-02-2025 Registered Referred Balwinder Alves MD [facility] Start: 02-07-2025 End: 02-07-2025 ambulatory Balwinder Alves MD [facility] Work Phone: Start: 02-07-2025 End: 02-07-2025 [facility]arted [facility] Start: 02-07-2025 End: 02-07-2025 ambulatory Balwinder Alves OLS Facility:[facility] Start: 01-23-2025 End: 01-23-2025 ambulatory Balwinder Alves MD [facility] Work Phone: Start: 01-23-2025 End: 01-23-2025 Departed [facility] Start: 01-23-2025 End: 01-23-2025 ambulatory Balwinder Alves OLS Facility:[facility] Start: 01-09-2025 End: 01-09-2025 ambulatory Balwinder Alves MD [facility] Work Phone: Start: 01-09-2025 End: 01-09-[address] [facility] Start: 01-09-2025 End: 01-09-2025 ambulatory Balwinder MARSHALL Facility:[facility] Start: 01-02-2025 End: 01-02-2025 ambulatory Balwinder Alves MD [facility] Work Phone: Start: 01-02-2025 End: 01-02-2025 Departed Referred Balwinder Mcgrath [facility] Start: 01-02-2025 Registered Referred Balwinder Fontanez [facility] Start: 01-02-2025 End: 01-02-2025 ambulatory Balwinder MARSHALL Facility:[facility] Start: 12-26-2024 End: 12-26-2024 ambulatory Balwinder Alves MD [facility] Work Phone: Start: 12-26-2024 End: 12-26-2024 Departed Referred Balwinder Mcgrath [facility] Start: 12-26-2024 Registered Referred Balwinder Fontanez [facility] Start: 12-26-2024 End: 12-26-2024 ambulatory Balwinder MARSHALL Facility:[facility] Start: 12-16-2024 End: 12-16-2024 ambulatory Balwinder Alves MD [facility] Work Phone: Start: 12-16-2024 End: 12-16-2024 Departed Referred Balwinder Alves MD -[facility] Start: 12-16-2024 Registered Referred Balwinder Alves MD - [facility] Start: 12-16-2024 End: 12-16-2024 ambulatory Balwinder MARSHALL Facility:[facility] Start: 12-14-2024 End: 12-14-2024 ambulatory Balwinder Alves MD [facility] Work Phone: Start: 12-14-2024 End: 12-14-2024 Departed [facility] Start: 12-14-2024 End: 12-14-2024 ambulatory Balwinder MARSHALL Facility:[facility] Start: 10-10-2024 ambulatory Balwinder MARSHALL Facil ity:[facility] Start: 10-10-2024 Registered Referred Balwinder Alves MD - [facility] Start: 09-14-2024 End: 09-14-2024 Departed Referred Balwinder Alves [facility] Start: 09-14-2024 End: 09-14-2024 ambulatory Balwinder MARSHALL Facility:[facility] Start: 06-14-2024 End: 06-14-2024 ambulatory Balwinder MARSHALL Facility:[facility] Start: 05-29-2024 End: 05-29-2024 ambulatory Balwinder Alves Facility:[facility] Start: 05-06-2024 End: 05-06-2024 ambulatory Balwinder MARSHALL Facility:[facility] Start: 02-06-2024 End: 02-06-2024 Emergency department patient visit [facility] Work Phone: Start: 12-14-2023 End: 12-14-2023 ambulatory [facility] Work Phone: Start: 12-14-2023 End: 12-14-2023 Departed Referred [facility] Start: 12-09-2023 End: 12-09-2023 ambulatory [facility] Start: 12-09-2023 End: 12-09-2023 Office outpatient visit 15 minutes Tete Makaylayessica FITZGERALD Work Phone: [facility] Comment on above: Closed fracture of d istal end of left fibula, unspecified fracture morphology, initial encounter (Primary Dx) Start: 11-16-2023 Orders Only Tete Carloshiral FITZGERALD Work Phone: [facility] Comment on above: Closed fracture of d istal end of left fibula, unspecified fracture morphology, initial encounter (Primary Dx) Start: 10-14-2023 End: 10-14-2023 ambulatory TETE MALORIE [facility] Start: 10-14-2023 End: 10-14-2023 Office outpatient visit 15 minutes Tete FITZGERALD Work Phone: [facility] Comment on above: Closed fracture of d istal end of left fibula, unspecified fracture morphology, initial encounter; Acute left ankle pain Start: 10-09-2023 Orders Only Tete Makaylayessica FITZGERALD Work Phone: [facility] [facility] Comment on above: Closed fracture of l eft ankle, initial encounter (Primary Dx) Start: 09-23-2023 End: 09-23-2023 ambulatory CHIEF SOLUTION ARCHITECT-C Laci Brewer CHIEF SOLUTION ARCHITECT Work Phone: [facility] Work Phone: Start: 09-23-2023 End: 09-23-2023 Departed Referred CHIEF SOLUTION ARCHITECT-C Laci Brewer CHIEF SOLUTION ARCHITECT Work Phone: [facility] Start: 09-14-2023 End: 09-14-2023 ambulatory CHIEF SOLUTION ARCHITECT-C Laci Brewer CHIEF SOLUTION ARCHITECT Work Phone: [facility] Work Phone: Start: 09-14-2023 End: 09-14-2023 Departed Referred CHIEF SOLUTION ARCHITECT-C Laci Brewer CHIEF SOLUTION ARCHITECT Work Phone: [facility] Start: 07-17-2023 Telephone encounter Zander Ureña MD Work Phone: [facility] Comment on above: Other (Appt ) Start: 07-16-2023 End: 07-16-2023 Patient encounter procedure CHIEF SOLUTION ARCHITECT-C Laci Brewer CHIEF SOLUTION ARCHITECT Work Phone: [facility] Work Phone: Start: 06-30-2023 End: 07-05-2023 ambulatory LACI BELTRANHARPAL TURNTABLE WORKER-MANAGER RESTAURANT Facility:B Start: 06-30-2023 End: 07-04-2023 ambulatory ROHAN 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 Facility:B Start: 06-30-2023 End: 07-04-2023 Observation ROHAN 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 [facility] Start: 02-05-2023 End: 02-06-2023 ambulatory LACI BREWER TURNTABLE WORKER-MANAGER RESTAURANT Facility:B Start: 02-05-2023 End: 02-05-2023 Patient encounter procedure LACI OSMAN TURNTABLE WORKER-MANAGER RESTAURANT [facility] Start: 01-29-2022 End: 01-29-2022 Patient encounter procedure LACI OSMAN TURNTABLE WORKER-MANAGER RESTAURANT [facility] Start: 07-17-2021 End: 07-17-2021 Patient encounter procedure LACI OSMAN TURNTABLE WORKER-MANAGER RESTAURANT [facility] Procedures Date Procedure Procedure Detail Performing Clinician Start: 03-31-2025 CT of abdomen and pe lvis without contrast Balwinder Alves MD Start: 03-02-2025 Urine culture Balwinder savage MD [...] DUTTON Start: 09-23-2023 Clostridium difficil e detection CHIEF SOLUTION ARCHITECT-C Laci Brewer CHIEF SOLUTION ARCHITECT Work Phone: Start: 07-16-2023 Radiography of ankle CHIEF SOLUTION ARCHITECT -C Laci Beltranharpal CHIEF SOLUTION ARCHITECT Work Phone: Start: 04-04-2023 Extraction of cataract ROHAN 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 Comment on above: Left side Start: 02-09-2020 Ophthalmic examinati on and evaluation LACI KELLYHARPAL TURNTABLE WORKER-MANAGER RESTAURANT Comment on above: No retinopathy; [facility] Start: 03-22-2007 Arthroplasty of knee RY AN BALTES TURNTABLE WORKER-MANAGER RESTAURANT Comment on above: BILATERAL Start: 03-05-2007 Arthroplasty of knee RY AN BALTES TURNTABLE WORKER-MANAGER RESTAURANT Start: 10-05-1968 section LACI GUERRA TURNTABLE WORKER-MANAGER RESTAURANT Cataract (disorder) LACI BELTRAN HARPAL TURNTABLE WORKER-MANAGER RESTAURANT Comment on above: Right eye Cholecystectomy LACI BELTRANHARPAL TURNTABLE WORKER-MANAGER RESTAURANT Hysterectomy LACI BREWER APR N-MANAGER RESTAURANT Miscellaneous (quali fier value) ROHAN 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 Comment on above: brain drains from br ain bleed 2013 Renal lithotripsy LACI Ramesh TURNTABLE WORKER-MANAGER RESTAURANT Sling, device (physi shauna object) LACI BREWER TURNTABLE WORKER-MANAGER RESTAURANT Comment on above: Bladder H/o cystocele Tonsillectomy LACI BREWER AP RN-MANAGER RESTAURANT Comment on above: as a teenager Plan of Treatment Date Care Activity Detail Author Start: 06-24-2026 DTaP/Tdap/Td Vaccines (2 - Td or Tdap) DTaP/Tdap/Td Vaccines (2 - Td or Tdap) [facility] Start: 01-23-2025 [facility] Start: 01-23-2025 Bacteria identified in Urine by Culture Urine Culture [facility] Start: 01-09-2025 Urine culture Urine Culture [facility] Start: 01-09-2025 [facility] Start: 01-02-2025 [facility] Start: 01-02-2025 Bacteria identified in Urine by Culture Urine Culture [facility] Start: 01-02-2025 Urine culture [facility] Start: 02-06-2024 [facility] Start: 11-25-2023 End: 11-16-2024 XR Ankle - left 3 Views XR ankle 3+ views left Imaging Routine Closed fracture of distal end of left fibula, unspecified fracture morphology, initial encounter Expected: 11/25/2023, Expires: 11/16/2024 [facility] Work Phone: Comment on above: Expected: 11/25/2023, Expires: Start: 11-25-2023 End: 11-25-2023 Patient encounter procedure 11/25/2023 10:30 AM EST Office Visit [facility] [address] [facility] [address] [place] [address] Tete Trevino PA [address] [facility] [address] [place] [address] [facility] Start: 10-14-2023 End: 10-09-2024 XR Ankle - left 3 Views XR ankle 3+ views left Imaging Routine Closed fracture of left ankle, initial encounter Expected: 10/14/2023, Expires: 10/09/2024 [facility] Work Phone: Comment on above: Expected: 10/14/2023, Expires: Start: 10-14-2023 End: 10-14-2023 Patient encounter procedure 10/14/2023 10:00 AM EST Office Visit [facility] [address] [facility] [address] [place] [address] Tete Trevino PA [address] [facility] [address] [place] [address] [facility] Start: 10-05-2023 Medicare Advantage Annual Wellness Visit Medicare Advantage Annual Wellness Visit [facility] Start: 06-05-2023 COVID-19 Vaccine ( season) COVID-19 Vaccine ( season) [facility] Start: 06-05-2023 COVID-19 Vaccine ( season) COVID-19 Vaccine ( season) [facility] Start: 06-05-2023 Influenza vaccination Influenza Vaccine (#1) [facility] Start: 06-03-2021 Zoster Vaccines (3 of 3) Zoster Vaccines (3 of 3) [facility] Start: 2008 Pneumococcal Vaccine: 65+ Years (1 - PCV) Pneumococcal Vaccine: 65+ Years (1 - PCV) [facility] Start: 2003 RSV Immunization aged 60 or older (1 - 1-dose 60+ series) RSV Immunization aged 60 or older (1 - 1-dose 60+ series) [facility] Start: 1993 Zoster Vaccines (1 of 2) Zoster Vaccines (1 of 2) [facility] Start: 1962 DTaP/Tdap/Td Vaccines (1 - Tdap) DTaP/Tdap/Td Vaccines (1 - Tdap) [facility] Start: 1955 Depression Screening Depression Screening [facility] Start: 1945 COVID-19 Vaccine (#1) COVID-19 Vaccine (#1) [facility] Start: 1945 Medicare Advantage Annual Wellness Visit (AWV) Medicare Advantage Annual Wellness Visit (AWV) [facility] Start: 1945 Screening for osteoporosis Bone Density Scan [facility] Basic metabolic 2008 panel with ionized calcium - Serum or Plasma [facility] CBC W Auto Different ial panel - Blood [facility] Electrocardiographic procedure [facility] Patient Education ED Abscess Inc ision And Drainage ED Wound Care After Packing ... 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 01-01-2021 SARS-CoV-2 (COVID-19 ) mRNA BNT-162b2 vax 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 12-10-2020 SARS-CoV-2 (COVID-19 ) mRNA BNT-162b2 vax 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 05-06-2020 pneumococcal conjuga te vaccine, 13 valent 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 07-06-2019 influenza virus vacc ine, unspecified formulation 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 09-03-2018 influenza virus vacc ine, unspecified formulation LACI OSMAN TURNTABLE WORKER-MANAGER [employer]AURANT [facility] 08-05-2018 influenza virus vacc ine, unspecified formulation LACI OSMAN TURNTABLE WORKER-MANAGER [employer]AURANT [facility] 07-04-2018 influenza virus vacc ine, unspecified formulation LACI BALHARPAL TURNTABLE WORKER-MANAGER [employer]AURANT [facility] 06-04-2018 influenza virus vacc ine, unspecified formulation LACI BALHARPAL TURNTABLE WORKER-MANAGER [employer]AURANT [facility] 06-23-2017 influenza virus vacc ine, unspecified formulation LACI BALHARPAL TURNTABLE WORKER-MANAGER [employer]AURANT [facility] 06-10-2017 influenza virus vacc ine, unspecified formulation 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 06-24-2016 influenza virus vacc ine, unspecified formulation LACI BREWER TURNTABLE WORKER-[facility] 06-24-2016 tetanus toxoid, redu chivo diphtheria toxoid, and acellular pertussis vaccine, adsorbed LACI BREWER TURNTABLE WORKER-[facility] 07-17-2015 pneumococcal conjuga te vaccine, 13 valent LACI BREWER TURNTABLE WORKER-[facility] 06-19-2015 influenza virus vacc ine, unspecified formulation LACI BREWER TURNTABLE WORKER-[facility] 09-06-2014 influenza virus vacc ine, unspecified formulation 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 06-08-2013 pneumococcal polysaccharide vaccine, 23 valent 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 09-01-2012 influenza virus vacc ine, unspecified formulation LACI OSMAN TURNTABLE WORKER-MANAGER [employer]AURANT [facility] 05-28-2012 zoster vaccine, live LACI MONTEJO TURNTABLE WORKER-MANAGER [employer]AURANT [facility] Payers Date Payer Category Payer Medicaid [id number] 2024 Self-pay [id number] 2023 Medicare [employer] [id number] 2023-[facility] [phone] [address] [place] [address] Medicare HMO [id number] 2023 Medicare [id number] 2023 Unknown [id number] 1945 Unknown [id number] 1945 Unknown [id number] [id number] 1945 Unknown [id number] 2.840.1.444868.3.579.2.627 Medicare [id number] Unknown [id number] [id number] Unknown [id number] 2.840.1.817658.3.579.2.462 Unknown [id number] 2.840.1.182748.3.579.2.462 Unknown [id number] 2.16840.1.574270.3.579.2.462 Unknown [id number] 2.16840.1.854701.3.579.2.462 Unknown [id number] 2.840.1.544772.3.579.2.462 Unknown [id number] 2.840.1.117428.3.579.2.462 Unknown [id number] 2.16.840.1.944899.3.579.2.462 Unknown [id number] 2.16.840.1.350022.3.579.2.462 Unknown [id number] 2.16.840.1.359328.3.579.2.462 Unknown [id number] 2.16.840.1.717447.3.579.2.462 Unknown [id number] 2.16.840.1.406959.3.579.2.462 Unknown [id number] 2.16.840.1.359694.3.579.2.462 Unknown [id number] 2.16.840.1.623738.3.579.2.462 Unknown [id number] 2.16.840.1.396143.3.579.2.462 Unknown [id number] 2.16.840.1.372124.3.579.2.462 Social History Date Type Detail Facility Start: 04-06-2019 End: 02-06-2024 Ex-smoker (finding) [facility] Comment on above: Quit in 2014, not ar ound cigarette smoke Start: 1945 Sex Assigned At Female A [facility] Start: 07-16-2023 End: 02-06-2024 Tobacco smoking status NHIS Tobacco smoking consumption unknown [facility] Start: 1945 Sex Assigned At Not on file [facility] Start: 10-14-2023 End: 12-09-2023 Gender identity Not on file [facility] Start: 10-14-2023 Tobacco smoking stat us CTIS Never smoked tobacco [facility] Start: 10-14-2023 Tobacco use and exposure Smokeless tobacco non-user [facility] Start: 10-14-2023 End: 12-09-2023 History of Social function [facility] Start: 01-04-2025 End: 01-24-2025 Sex Female (finding) [facility] Medical Equipment Procedure Code Equipment Code Equipment Origin al Text Equipment Identifier Dates BD UF SHORT PEN NEEDLE [id number] Start: 08-29-[address] Strips Start: 10-16-2020 Lancets Start: 04-23-2021 BD UF SHORT PEN NEEDLE [id number], 0 Refill(s), 141.8 Start: 08-29-2020 See Instructions , EA=BOX of 100 2x daily testing once touch untra blue dx: diabetes, # 6 EA, 3 Refill(s), [facility]: [id number], Diabetes, 166.37, cm, 07/24/21 11:31:00 EDT, Height, 134.5, kg, 07/24/21 11:31:00 EDT, Dosing Weight Start: 07-24-2021 See Instructions , EA=BOX OF 100 ONETOUCH DELICA LANCETS FINE, 33 GA TO TEST BID Diabetes R11.9, # 6 EA, 3 Refill(s), [facility]: [id number], Diabetes, 166.37, cm, 07/24/21 11:31:00 EDT, Height, 134.5, kg, 07/24/21 11:31:00 EDT, Dosing Weight Start: 07-24-2021 See Instructions , Using Twice Daily. ONE BOX OF 100. BD UF 8mm 31 G (short) qs 3 month supply Diabetes Mellitus E11.9, # 2 EA, 0 Refill(s), Pharmacy: [facility]/pharmacy #[id number], 167.6, cm, 11/05/21 9:58:00 EST, Height, 135.4, kg, 11/05/21 9:58:00 EST, Dosing... Start: 12-20-2021 See Instructions , EA=BOX of 100 2x daily testing once touch untra blue dx: diabetes, # 6 EA, 3 Refill(s), Pharmacy: [facility]/pharmacy #[id number], Diabetes, 167.6, cm, 05/20/22 12:08:00 EDT, Height, 134.9, kg, 05/20/22 11:59:00 EDT, Dosing Weight Start: 08-05-2022 See Instructions , EA=BOX OF 100 ONETOUCH DELICA LANCETS FINE, 33 GA TO TEST BID Diabetes R11.9, # 6 EA, 3 Refill(s), Pharmacy: [facility]/pharmacy #[id number], Diabetes, 167.6, cm, 08/19/22 12:13:00 EST, Height, 135.4, kg, 08/19/22 12:13:00 EST, Dosing Weight Start: 09-10-2022 See Instructions , EA=ONE BOX OF 100, BID BD UF 8mm 31 G (short) qs 3 month supply Diabetes Mellitus E11.9, # 2 EA, 3 Refill(s), Pharmacy: [facility]/pharmacy #[id number], 167.6, cm, 11/20/22 11:29:00 EST, Height, 134, kg, 11/20/22 11:29:00 EST, Dosing Weight Start: 11-20-2022 See Instructions , EA=BOX of 100 2x daily testing once touch untra blue dx: diabetes, # 6 EA, 3 Refill(s), Pharmacy: [facility]/pharmacy #[id number], Diabetes, 167.6, cm, 05/20/22 12:08:00 EDT, Height, 134.9, kg, 05/20/22 11:59:00 EDT, Dosing Weight Start: 08-05-2022 See Instructions , EA=BOX OF 100 ONETOUCH DELICA LANCETS FINE, 33 GA TO TEST BID Diabetes R11.9, # 6 EA, 3 Refill(s), Pharmacy: [facility]/pharmacy #[id number], Diabetes, 167.6, cm, 08/19/22 12:13:00 EST, Height, 135.4, kg, 08/19/22 12:13:00 EST, Dosing Weight Start: 09-10-2022 See Instructions , EA=ONE BOX OF 100, BID BD UF 8mm 31 G (short) qs 3 month supply Diabetes Mellitus E11.9, # 2 EA, 3 Refill(s), Pharmacy: [facility]/pharmacy #[id number], 167.6, cm, 11/20/22 11:29:00 EST, Height, 134, kg, 11/20/22 11:29:00 EST, Dosing Weight Start: 11-20-2022 Functional Status Date Assessment Result Facility 07-04-2023 Functional Status Room check performed [facility] 07-04-2023 Functional Status right knee high applied /on [facility] 07-04-[address] [facility] 07-04-2023 Functional Status Varun acosta [facility] 07-04-2023 Functional Status Demonstrates C orrect Call Light Use Yes [facility] 07-04-2023 Functional Status Done Varun acosta [facility] 07-04-2023 Functional Status Varun acosta [facility] 07-03-2023 Functional Status Positioning Repositions self [facility] 07-03-2023 Functional Status Varun acosta [facility] 07-03-2023 Functional Status Varun acosta [facility] 07-03-2023 [facility] 07-03-2023 Functional Status Varun acosta [facility] 07-03-2023 Functional Status Varun [facility] 07-02-2023 Functional Status Varun [facility] 07-02-2023 Functional Status Max A Varun [facility] 07-01-2023 Functional Status [facility] Functional Status Single level home [facility] 07-01-2023 Functional Status Varun [facility] 06-30-2023 Functional Status Sensory Deficits None A [facility] 06-30-2023 Functional Status Activity Rosa tance Independent [facility] Mental Status Date Assessment Result Facility 07-04-2023 Mental Status Orientation Orie nted x 4, Follows simple commands [facility] 07-03-2023 Mental Status [facility] 07-03-2023 Mental Status [facility] 07-03-2023 Mental Status Orientation Asse ssment Oriented x [address] [facility] 07-02-2023 [facility] Clinical Notes 06-30-2023 to 03-31-2025 Note Date & Type Note Facility 03-31-2025 Radiology Diagnostic study note [facility] Imaging Services [address] [place] [address] Abdomen/Pelvis without Cont MR#: [id number] Acct: [id number] Name: GUMARO HUFF Rep #: [id number] : 1945 F 80 From: Adalid Hanna MD PCP: Dr. Balwinder Alves MD Status: REG CLI Study:Abdomen/Pelvis without Cont Date of Exa m: 03/31/25 Exam# [id number] Ordering Dr: Dorota James MD PROCEDURE: ABDOMEN/PELVIS WITHOUT CONT 03/31/2025 REASON FOR EXAM: KIDNEY STONE TECHNIQUE: ABDOMEN/PELVIS WITHOUT CONT Noncontrast technique limits evaluation of the abdominal and pelvic viscera. Coronal and Sagittal reconstruction series were provided. One or more dose reduction techniques were used (e.g., Automated exposure control, adjustment of the mA and/or kV according to patient size, use of iterative reconstruction technique). RADIATION DOSE SUMMARY: CTDlvol: 23.05 mGy DLP: 1249.88 mGycm COMPARISON: None FINDINGS: Lung bases: Mild dependent atelectasis. Coronary artery calcification. Liver: Normal size. No obvious mass. Gallbladder: Several calcified gallstones. Spleen: Normal size. Pancreas: Normal size. No surrounding inflammation. Adrenals: Unremarkable Kidneys: There is a staghorn calculus in the mid lower pole of the right kidney with extension to the renal pelvis. This measures 2.4 cm Bladder: Unremarkable Reproductive Organs: Prior hysterectomy. Adnexal regions are unremarkable. Bowel: Colonic diverticulosis without diverticulitis. Appendix: The appendix is not identified. There is no inflammatory process identified in the right lower quadrant to suggest appendicitis. Lymph nodes: Unremarkable. Vasculature: Mild diffuse atherosclerotic calcifications are noted. Peritoneum / Retroperitoneum: Unremarkable Bones: Degenerative changes of the spine. CT/Abdomen/Pelvis without Cont IMPRESSION: Staghorn calculus in the right kidney. Sigmoid diverticulosis. Status post cholecystectomy. Reading Location: [id number] CC: Dr. Dorota James MD; Dr. Balwinder Alves MD ~ Apple Picker: Signed [facility] 02-06-2024 Discharge summary Note Date/Time February 06, 2024 4:09pm [facility] Medical Records Department [address] [place] [address] Emergency Department Summary 02/06/24 MR#: [id number] Acct: [id number] Name: GUMARO HUFF Rep #:[id number] : 1945 78 From: Omid Montiel MD PCP: Dr. Balwinder Alves MD Status:REG ER Location: ED HPI History of Present Illness Chief Complaint: Wound Check Narrative Narrative: 78-year-old female past medical history of diabetes presents [facility] for right labia majora abscess. She [...] line because they want to start vancomycin. [facility] Medical History Brain bleed [...] on antibiotics orally. Disposition is discharged to [facility] in stable condition. History & Record Review [...] Provider] - 2 Days Laci Brewer NP, CHIEF SOLUTION ARCHITECT-C [Non-Staff] - Activity Restrictions/Additional Instructions: Remove packing/have packing removed in 48 hours. Do not leave in longer. Continue vancomycin through your peripheral IV. Disposition Disposition: [facility] Discharge Location: [facility] What to do if you have Problems For any increased pain, shortness of breath, bleeding, nausea or vomiting, chestpain, or any unexpected problems, contact your Primary Care Provider. Call [facility] ([phone]) or report to the closest Emergency Room. Call 911 if necessary. 02/06/24 180 <Electronically signed by Omid Montiel MD> Cosigner Signature (if applicable): CC: Dr. Balwinder Alves MD ~ Signed [facility] Work Phone: 1(699) 268-836203-06-2024 History of Present illness Narrative* LIA Champagne - 12/09/2023 10:30 AM EST Images from the original note were not included. [facility] [address] [place] [address] [place] [phone] Dept: [phone] Dept Gumaro Daria 1945 [id number] 12/09/2023 HISTORY OF PRESENT ILLNESS: Gumaro returns [...] to improve. Electronically signed by LIA Champagne [facility] Department of Orthopedic surgery 12/09/2023 3:43 PM Voice recognition was used for portions of this note and although it was reviewed prior to signing some incorrect words or phrases could be present. documented in this [facility]01-10-2024 History of Present illness Narrative* LIA Champagne - 10/14/2023 10:00 AM EST Images from the original note were not included. [facility] [address] [place] [address] [place] [phone] Dept: [phone] Dept Gumaro Daria 1945 [id number] 10/14/2023 HISTORY OF PRESENT ILLNESS: Gumaro returns [...] with Imaging. Electronically signed by LIA Champagne [facility] Department of Orthopedic surgery 10/14/2023 3:50 PM Voice recognition was used for portions of this note and although it was reviewed prior to signing some incorrect words or phrases could be present. [id number] Telephone encounter Note* Telephone Encounter - Kimberly Capellan MA - 09/03/2023 8:53 AM EST Left distal fibula fx doi 07/02/23 she is in a boot. Can only be seen in [place] or [place]. No wads [facility] [id number] Miscellaneous Notes* Telephone Encounter - Kimberly Capellan MA - 09/03/2023 8:53 AM EST Left distal fibula fx doi 07/02/23 she is in a boot. Can only be seen in [place] or [place]. No wads * Telephone Encounter - Sammie Lantigua - 09/02/2023 12:08 PM EST Gareth toussaint RN at [facility] called [phone] ext 2008, he states that they just got [place] from [place] and they are looking for her to [...] Dr. Ureña on Thursday at 1pm in [place] or 9am in [place] if not already double booked. documented in this [facility]11-29-2023 Telephone encounter Note* Telephone Encounter - Sammie Lantigua - 09/02/2023 12:08 PM EST Gareth toussaint RN at [facility] called [phone] ext 2008, he states that they just got [place] from [place] and they are looking for her to [...] 2:30 today and then works again tomorrow. [id number] Miscellaneous Notes* Telephone Encounter - Sammie Lantigua - 09/02/2023 12:08 PM EST Gareth an RN at [facility] called [phone] ext 2008, he states that they just got [place] from [place] and they are looking for her to [...] Dr. Ureña on Thursday at 1pm in [facility] or 9am in [place] if not already double booked. documented in this [facility]SMer[facility] [id number] Telephone encounter Note* Telephone Encounter - Billy Araya MA - 07/17/2023 9:27 AM EDT LVM to schedule with Dr. Ureña on Thursday at 1pm in [facility] or 9am in [place] if not already double booked. [facility] [id number] Hospital Discharge instructions Patient Education 07/03/2023 14:56:59 Urinary Tract Infection, Adult, Vues-yj-Pwho Urinary Tract Infection, Adult A urinary tract [...] Follow these instructions at home: Medicines Take vnna-tbr-wvwviap and prescription medicines only as told by [...] 03/09/2009 Document Revised: 09/08/2019 Document Reviewed: 03/31/2019 [employer] Patient Education 2020 [employer]. Follow Up Care 06/30/2023 15:11:52 With:LACI BREWER APRN-[facility] Address: [address] [place] [address]- [phone] When:3-5 days Comments:Please schedule a Follow up appt with your PCP after d/c. [facility] 09-29-2023 Note Discharge Instructions Thank you for allowing [place] to assist you with your healthcare needs. The following is importantdischarge information regarding your hospital visit. Your Care Team Heather Hunt APRN Your Diagnosis Ankle pain-swelling Depression Fall Fibula fracture Hypertension Type 2 diabetes mellitus Urinary tract infection What to do next Scheduled Follow-Up Appointments Appointment Type When With Where Contact InformationPC OV 09/22/2023 11:30 AM LACI GÓMEZ [address] [id number] Follow Up Appointments Follow Up with LACI BREWER When Within 3-5 days Why: Please schedule a Follow up appt with your PCP after d/c. Where: [address] [place] [phone] The Following Activity and Diet Have Been [...] Ordered -- 07/03/23 14:47:00 EDT, HEATHER HUNT Transfer of Care Prognosis - Ordered -- [...] When Why Instructions Last Dose New acetaminophen-hydrocodone (Mifflinburg 325- 5 mg oral tablet) 1 tab(s) [...] Follow these instructions at home: Medicines Take itwi-ilk-bwmdbfd and prescription medicines only as told by [...] 03/09/2009 Document Revised: 09/08/2019 Document Reviewed: 03/31/2019 Elsevier Patient Education 2020 [employer] Additional Information VACCINATE! IT SAVES LIVES! Members of the community who have not yet received the COVID-19 vaccine and would like to receive it can visit one of [facility] vaccine clinics. There are many vaccine clinic locations within the [facility]. For locations and available times, please visit [email or web address] [place] [email or web address] It is important to note that some COVID mobile vaccine clinics are held outdoors and may be canceled in rainy or stormy conditions. To learn more about pediatric vaccinations (ages 5-11), we invite you to visit the [employer] webpage. [email or web address] learn more about the COVID-19 vaccine, we invite you to visit the CDC website for a list of frequently asked questions.https://www.cdc.gov/coronavirus/2019-ncov/vaccines/faq.html [employer] Patient Portal Access Instructions: Stay connected with your healthcare team and access your personal medical information anytime with the [employer] Patient Portal. Please follow the directions below to create your [employer] account: 1.Access the email account you provided upon registration to the hospital/physician office.2.Look for an invitation email from [facility].3.Open the email and access the invitation link: AcceptInvitation to VarunXangati.4.Fill in the required correa to create your account. To access your account, visit [employer]. Click the blue button labeled Access Patient [...] who you will allowto register on the [facility] for access to your information. You can also access the [facility] Patient [facility] on the [place] [facility] calos. Simply click on Patient Portal and then log into your account. If you would like to receive a full copy of your medical records, please contact the [facility] Medical Records Department by calling [phone], Thursday through Thursday between 8 a.m. and [...] Call your local pharmacy or go to [email or web address] to find one close to you.3.Make use of household items: Use cat litter or old coffee grounds to dispose medications if other options arenot available. Mix your drugs with these household products, seal them in an airtight container andthrow it into the garbage. Call [facility]: [phone] to be sure your drugs can be [...] Patient Education Materials Urinary Tract Infection, Adult, Gmjs-in-Uhsp Medication Leaflets My discharge plan and instructions have been reviewed and explained to me and I,DARIA GUMARO Ewa understand my current condition and have read and understand these discharge instructions. I have received a written copy of the plan/instructions. If I have questions, I am aware that I should contact my doctor. Patient/Outreach Professional Signature: Date/Time: Relationship to Patient: Witness Name/Signature: Date/Time: [facility]09-29-2023 Note Date of Service 07/03/2023 Chief Complaint Fibula fracture Subjective 78-year-old female with past medical history significant for HTN, HLD, type 2 diabetes mellitus, morbid obesity. Next Patient presented to [facility] emergency department on 06/30/2023 with [...] currently. Pain was not well controlled with Mifflinburg alone. Objective Vitals and Measurements T: 36.6 [...] Dr. Roberto, nonweightbearing status for 6 weeks. Mifflinburg for pain. Patient has a documented allergy [...] Time Spent 36 minutes was spent in awwn-bw-sohz time and coordination of care for this patient, including but not limited to personally gathering history, examining the patient, reviewing labs and images and records, counseling patient and/or family about diagnosis and potential workup if applicable, as detailed above as well as discussing the case with patient's interdisciplinary team where applicable. Digitally Signed by HEATHER HUNT on 07/03/2023 01:[address] [facility]09-28-2023 Note Date of Service 07/02/2023 Chief Complaint Fall Subjective 78-year-old female with past medical history significant for HTN, HLD, type 2 diabetes mellitus, morbid obesity. Next Patient presented to [facility] emergency department on 06/30/2023 with [...] Dr. Roberto, nonweightbearing status for 6 weeks. Mifflinburg for pain. Patient has a documented allergy [...] HUNT on 07/02/2023 04:[address] [facility]09-28-2023 Note. MICRO - Microbiology PROCEDURE: Urine [...] Locations *1: This test was performed at: [facility], [address] [place] [address], [phone] , [facility] ([place])07-01-2023 Note Date of Service 07/01/2023 Chief Complaint [...] Result Date: June 30, 2023 Verified By: ANDIR PAT MD CLINICAL STATEMENT: IMPRESSION: Obliquely oriented [...] - holding off until seen by ortho. *program services planner consulted for discharge planning. *Continue PO pain [...] discussed with collaborating physician, Dr. Jose Francisco Greenfield. Ordered: Time Spent 35 minutes spent reviewing past diagnostic tests, reviewing lab results, vital sign trends, medicalhistory, reviewing medications and ordering home medications, discussing plan of care with nursing,social science research assistant, and therapy, examining patient, collaborating with physician, and documenting in chart. Digitally Signed by ROHAN MCDOWELL on 07/01/2023 04:[address] [facility]09-26-2023 Note Date of Service 06/30/2023 Chief Complaint Patient fell at home and is complaining of left-sided ankle pain. History of Present Illness Patient is an 78-year-old female, who follows with Laci Brewer CNP with a past medical history significant for hypertension, hyperlipidemia, type 2 diabetes and morbid obesity, presented to [facility] emergency department with the chief complaint [...] evaluate and treat. We will consult social science research assistant for discharge planning. Check CBC and BMP [...] PT and OT to evaluate and treat. *program services planner consulted for discharge planning. *Continue PO pain [...] discussed with collaborating physician, Dr. Jose Francisco Greenfield. 55 minutes spent reviewing past diagnostic tests, [...] 04/06/2019 Use: Never., 04/06/2019 Home/Environment Self Primary Truer Pinion And Wheel:., 04/06/2019 Nutrition/Health Type of diet: Regular. Appetite Good. Eating Difficulties None. Caffeine intake amount: Occ Coke. Two protein drink daily, it has caffeine of one cup of coffee., 08/19/2022 Substance Abuse Use: Never., 04/06/2019 Tobacco Tobacco Use: Former smoker, quit more than 30 days ago., 04/06/2019 Family History Arthritis: Sister. Asbestosis: Father. Cancer: Mother. Diabetes: Sister. Guillain Munson syndrome: Sister. Heart disease: Sister. Malignant neoplasm [...] MCDOWELL on 06/30/2023 04:[address] [facility]09-26-2023 Note ORIGINAL EXAMINATION: 3 x-ray views [...] Date: 06/30/2023 4:00:26 PM [facility] ORIGINAL EXAMINATION: TWO XRAY VIEWS OF [...] Sign Date: 06/30/2023 4:01:46 PM Ordering Provider: [facility]09-26-2023 Evaluation + Plan noteExtracted from: Title:History and Physical Author:ROHAN MCDOWELL APRN-MANAGER RESTAURANT Date:06/30/23 1. Ankle pain-swelling Acute, s/p mechanical fall at home *X-ray of left ankle reveals fracture of distal fibula. *Consult Dr. Jose Roberto, orthopedics, for recommendation. *Patient is non weightbearing to left ankle. *Consult placed to PT and OT to evaluate and treat. *program services planner consulted for discharge planning. *Continue PO pain [...] discussed with collaborating physician, Dr. Jose Francisco Greenfield. 55 minutes spent reviewing past diagnostic tests, reviewing lab results, vital sign trends, medical history, reviewing medications and ordering home medications, examining patient, reviewing PCP notes, past labs, collaborating with physician, and documenting in chart. Future Appointments Appointment Date:09/22/2023 11:30:00 AM Scheduled Provider:LACI BREWER Location:[facility] Appointment Type:PC OV [facility] Evaluation + Plan note Future Appointments Appointment Date:07/24/2021 11:30:00 AM Scheduled Provider:LAIC BREWER Location:[facility] Appointment Type:PC OV Future Scheduled Tests Laboratory* Vitamin D Level 01/22/21 * Vitamin D Level 11/06/[address] [facility] Evaluation + Plan note Future Appointments Appointment Date:02/04/2022 11:00:00 AM Scheduled Provider:LACI BREWER Location:[facility] Appointment Type:PC OV Follow Up [facility] Evaluation + Plan note Future Appointments Appointment Date:02/10/2023 11:30:00 AM Scheduled Provider:LACI BREWER Location:[facility] Appointment Type:PC OV [facility] evaluegqty note* Diagnosis Onset Date Resolution Status Closed fracture of left distal fibula acute Left ankle pain acute [facility] Work Phone: evaluation note* Diagnosis Closed fracture of left ankle, initial encounter- Primary [facility] this [facility]* Diagnosis Closed fracture of distal end of left fibula, unspecified fracture morphology, initial encounter Acute left ankle pain [facility] Diagnosis Closed fracture of distal end of left fibula, unspecified fracture morphology, initial encounter- Primary [facility]* Diagnosis Closed fracture of distal end of left fibula, unspecified fracture morphology, initial encounter- Primary documented in this encounter [facility] Health[facility] noteNo assessment information availableWBlanchard [facility] Work Phone: evaluation note* Diagnosis Onset Date Resolution Status Admit Date Kidney stones acute May 9:40am UTI (urinary tract infection) acute May 17, 2025 9:40am [facility] Work Phone: Hospital course Narrative No data available for this section [facility] Hospital Discharge instructions No data available for this section [facility] Hospital Discharge instructions Additional Instructions Remove packing/have packing removed in 48 hours. Do not leave in longer. Continue vancomycin through your peripheral IV.[facility] Work Phone: Progress note No data available for this section [facility] Reason for referral (narrative)No reason for referral information availableWBlanchard [facility] Work Phone: Summary Purpose Family History No Family History Records Found Advance Directives Advance Directive Response Recorded Date/ Time Name of Medical Power of Animal Physiology Teacher casey laureano February 06, 2024 3:49pm Living Will Yes February 06, 2024 3: 49pm Power of Animal Physiology Teacher Yes February 06, 2024 3:49pm Chief Complaint and Reason for Visit Chief Complaint LEFT FIBULA Room 1 LABWORK Reason for Visit Closed fracture of l eft distal fibula Left ankle pain Chief Complaint LEFT FIBULA Room 1 LABWORK PRISON LAB WORK Reason for Visit Closed fracture of l eft distal fibula Left ankle pain Chief Complaint LABWORK PRISON LAB WORK PRISON LAB WORK Chief Complaint PRISON LAB WOR K wound Chief Complaint Admit Date PRISON LAB WORK September 14 5:00am PRISON LAB WORK October 10, 2024 7:30pm PRISON LAB WORK December 14, 2024 5 :00am LABWORK December 16, 2024 6:1 2am PRISON LAB WORK January 02, 2025 7 :30pm Chief Complaint Admit Date PRISON LAB WORK September 14 5:00am PRISON LAB WORK October 10, 2024 7:30pm PRISON LAB WORK December 14, 2024 5 :00am LABWORK December 16, 2024 6:1 2am PRISON LAB WORK January 02, 2025 7 :30pm LABWORK January 09, 2025 12:4 0pm Chief Complaint Admit Date PRISON LAB WORK September 14 5:00am PRISON LAB WORK October 10, 2024 7:30pm PRISON LAB WORK December 14, 2024 5 :00am LABWORK December 16, 2024 6:1 2am LABWORK December 26, 2024 7:0 8am PRISON LAB WORK January 02, 2025 7 :30pm LABWORK January 09, 2025 12:4 0pm Chief Complaint Admit Date PRISON LAB WORK October 10, 2024 7:30pm PRISON LAB WORK December 14, 2024 5 :00am LABWORK December 16, 2024 6:1 2am LABWORK December 26, 2024 7:0 8am PRISON LAB WORK January 02, 2025 7 :30pm LABWORK January 09, 2025 12:4 0pm PRISON LAB WORK January 23, 2025 1 1:30pm Chief Complaint Admit Date PRISON LAB WORK December 14, 2024 5 :00am LABWORK December 16, 2024 6:1 2am LABWORK December 26, 2024 7:0 8am PRISON LAB WORK January 02, 2025 7 :30pm LABWORK January 09, 2025 12:4 0pm PRISON LAB WORK January 23, 2025 1 1:30pm PRISON LAB WORK February 07, 2025 3:30 am Chief Complaint Admit Date PRISON LAB WORK December 14, 2024 5 :00am LABWORK December 16, 2024 6:1 2am LABWORK December 26, 2024 7:0 8am PRISON LAB WORK January 02, 2025 7 :30pm LABWORK January 09, 2025 12:4 0pm PRISON LAB WORK January 23, 2025 1 1:30pm PRISON LAB WORK February 07, 2025 3:30 am PRISON LAB WORK March 02, 2025 4:3 0am PRISON LAB WORK March 15, 2025 4: 00am KIDNEY STONES March 31, 2025 7:51 am Chief Complaint Admit Date PRISON LAB WORK January 23, 2025 1 1:30pm PRISON LAB WORK February 07, 2025 3:30 am PRISON LAB WORK March 02, 2025 4:3 0am PRISON LAB WORK March 15, 2025 4: 00am PRISON LAB WORK March 16, 2025 5: 00am KIDNEY STONES March 31, 2025 7:[address] follow up May 17, 2025 9: 40am Reason for Visit Admit Date Kidney stones May 17, 2025 9: 40am UTI (urinary tract infection) May 9:40am Reason for Referral Specialty Diagnoses / Procedures Referred By Contannita t Referred To Contact Physical Therapy Diagnoses Closed fracture of distal end of left fibula, unspecified fracture morphology, initial encounter Procedures ID OFFICE/OUTPATIENT NEW HIGH MDM 60 MINUTES Tete Trevino PA 1 [facility] [address] [place] [address] Referral ID Status Reason Start Date Expiration Date Visits Requested Visits Authorized [id number] Pending Review Eval and Treat 10/14/2023 04/11/2024 99 99 Additional Source Comments Care Team (unrecognized sect ion and content) Team Status: Active Member Role Status Dates Dr. Joaquin Thomas MD Family Provider Active Laci Brewer CHIEF SOLUTION ARCHITECT, CHIEF SOLUTION ARCHITECT-C Primary Care Provider Active Team Status: Inactive Member Role Status Dates Laci Brewer CHIEF SOLUTION ARCHITECT, CHIEF SOLUTION ARCHITECT-C Primary Care Provider, Referring Provider Active Prieto Meade MD Attending Provider Active Team Status: Inactive Member Role Status Dates Laci Brewer CHIEF SOLUTION ARCHITECT, CHIEF SOLUTION ARCHITECT-C Primary Care Provider Active Dr. Shlomo Umana MD Attending Provider Active Team Status: Inactive Member Role Status Dates Laci Brewer CHIEF SOLUTION ARCHITECT, CHIEF SOLUTION ARCHITECT-C Primary Care Provider Active Balwinder MARSHALL MD Attending Provider Active Weapons Officer Relationship Specialty Start Date End Date Balwinder Alves MD [address] [facility] [address] [place] [phone] PCP - General Family Medicine 10/14/23 Weapons Officer Relationship Specialty Start Date End Date Balwinder Alves MD [address] [facility] [address] [place] [phone] PCP - General Family Medicine 10/14/23 Weapons Officer Relationship Specialty Start Date End Date Balwinder Alves MD [address] [facility] [address] [place] [phone] PCP - General Family Medicine 10/14/23 Team Status: Inactive Member Role Status Dates Laci Brewer CHIEF SOLUTION ARCHITECT, CHIEF SOLUTION ARCHITECT-C Primary Care Provider Active Balwinder MARSHALL MD [...] Attending Provider Active Start: March 02, 2025 Team Status: Active Member Role/Relationship Status Dates Dr. Balwinder Alves MD Primary Care Provider Active Team Status: Inactive Member Role/Relationship Status Mame MARSHALL MD Primary Care Provider Active Start: December 14, 2024 End: December 14, 2024 Balwinder MARSHALL MD Attending Provider Active Start: December 14, 2024 End: December 14, 2024 Team Status: Inactive Member Role/Relationship Status Mame MARSHALL MD Primary Care Provider Active Start: December 16, 2024 End: December 16, 2024 Balwinder MARSHALL MD Attending Provider Active Start: December 16, 2024 End: December 16, 2024 Team Status: Inactive Member Role/Relationship Status Mame MARSHALL MD Primary Care Provider Active Start: December 26, 2024 End: December 26, 2024 Balwinder MARSHALL MD Attending Provider Active Start: December 26, 2024 End: December 26, 2024 Team Status: Inactive Member Role/Relationship Status Mame MARSHALL MD Primary Care Provider Active Start: January 02, 2025 End: January 02, 2025 Balwinder MARSHALL MD Attending Provider Active Start: January 02, 2025 End: January 02, 2025 Balwinder MARSHALL MD Referring Provider Active Start: January 02, 2025 End: January 02, 2025 Team Status: Inactive Member Role/Relationship Status Dates Balwinder MARSHALL MD Primary Care Provider Active Start: January 09, 2025 End: January 09, 2025 Dr. Balwinder Alves MD Attending Provider Active Start: January 09, 2025 End: January 09, 2025 Team Status: Inactive Member Role/Relationship Status Dates Balwinder MARSHALL MD Primary Care Provider Active Start: January 23, 2025 End: January 23, 2025 Balwinder MARSHALL MD Attending Provider Active Start: January 23, 2025 End: January 23, 2025 Balwinder MARSHALL MD Referring Provider Active Start: January 23, 2025 End: January 23, 2025 Team Status: Inactive Member Role/Relationship Status Dates Balwinder MARSHALL MD Primary Care Provider Active Start: February 07, 2025 End: February 07, 2025 Balwinder MARSHALL MD Attending Provider Active Start: February 07, 2025 End: February 07, 2025 Team Status: Active Member Role/Relationship Status Dates Balwinder MARSHALL MD Primary Care Provider Active Start: March 02, 2025 Balwinder MARSHALL MD Attending Provider Active Start: March 02, 2025 Team Status: Active Member Role/Relationship Status Dates Balwinder MARSHALL MD Primary Care Provider Active Start: March 15, 2025 Balwinder MARSHALL MD Attending Provider Active Start: March 15, 2025 Balwinder MARSHALL MD Referring Provider Active Start: March 15, 2025 Team Status: Active Member Role/Relationship Status Dates Balwinder MARSHALL MD Primary Care Provider Active Start: March 16, 2025 Balwinder MARSHALL MD Attending Provider Active Start: March 16, 2025 Team Status: Inactive Member Role/Relationship Status Dates Dr. Dorota James MD Attending Provider Active Start: March 31, 2025 End: March 31, 2025 Dr. Dorota James MD Referring Provider Active Start: March 31, 2025 End: March 31, 2025 Dr. Balwinder Alves MD Primary Care Provider Active Start: March 31, 2025 End: March 31, 2025 Team Status: Inactive Member Role/Relationship Status Dates Balwinder MARSHALL MD Primary Care Provider Active Start: January 23, 2025 End: January 23, 2025 Balwinder MARSHALL MD Attending Provider Active Start: January 23, 2025 End: January 23, 2025 Balwinder MARSHALL MD Referring Provider Active Start: January 23, 2025 End: January 23, 2025 Team Status: Inactive Member Role/Relationship Status Dates Balwinder MARSHALL MD Primary Care Provider Active Start: February 07, 2025 End: February 07, 2025 Balwinder MARSHALL MD Attending Provider Active Start: February 07, 2025 End: February 07, 2025 Team Status: Active Member Role/Relationship Status Dates Balwinder MARSHALL MD Primary Care Provider Active Start: March 02, 2025 Balwinder MARSHALL MD Attending Provider Active Start: March 02, 2025 Team Status: Active Member Role/Relationship Status Dates Balwinder MARSHALL MD Primary Care Provider Active Start: March 15, 2025 Balwinder MARSHALL MD Attending Provider Active Start: March 15, 2025 Balwinder MARSHALL MD Referring Provider Active Start: March 15, 2025 Team Status: Active Member Role/Relationship Status Dates Balwinder MARSHALL MD Primary Care Provider Active Start: March 16, 2025 Balwinder MARSHALL MD Attending Provider Active Start: March 16, 2025 Team Status: Inactive Member Role/Relationship Status Dates Dr. Dorota James MD Attending Provider Active Start: March 31, 2025 End: March 31, 2025 Dr. Dorota James MD Referring Provider Active Start: March 31, 2025 End: March 31, 2025 Dr. Balwinder Alves MD Primary Care Provider Active Start: March 31, 2025 End: March 31, 2025 Team Status: Inactive Member Role/Relationship Status Dates Dr. Balwinder Alves MD Primary Care Provider Active Start: April 04, 2025 Dr. Dorota James MD Attending Provider Active Start: April 04, 2025 Team Status: Inactive Member Role/Relationship Status Dates Dr. Balwinder Alves MD Primary Care Provider Active Start: May 17, 2025 End: May 17, 2025 Dr. Balwinder Alves MD Referring Provider Active Start: May 17, 2025 End: May 17, 2025 Dr. Dorota James MD Attending Provider Active Start: May 17, 2025 End: May 17, 2025 INFORMATION SOURCE (unrecogn ized section and content) DATE CREATED AUTHOR 07/23/2023 [facility] ([place]) DATE CREATED AUTHOR AUTHOR'S ORGANIZ ATION 12/10/2023 [facility] DATE CREATED AUTHOR AUTHOR'S ORGANIZ ATION 04/13/2025 [facility] Reason for Visit (unrecogniz ed section [...] BE BASED ON THE PRIMARY CLINICAL RECORDS. [employer] provides no warranty or guarantee of the accuracy or completeness of information in this document.
== END | disposition home or self-care (01) ==
LOC: MTLAB 10:32
PROVIDERS: PCP Family Medicine; Referring Provider Urology; Visit Provider Urology
DX: N20.0 Calculus of kidney (principal)
CPT/HCPCS: 36415; 74018; 80048; 85025

== ENCOUNTER → 2025-06-01 | Outpatient (REF) | payer MEDICARE, MEDICAID, SELFPAY ==
--- OUTSIDE RECORDS SUMMARY | 2025-06-01 02:58 | XMS RPT_ITS | CCD ---
Author Organization [facility] Inform ion [facility] Care Team Providers Care Electrical Machinist Name Role Phone OSMAN PERDUE, LACI Primary Care Physician [phone] OSMAN PERDUE, LACI Primary Care Unavailabl e OSMAN PERDUE, LACI Attending Unavailabl e OSMAN FIELD SALES AGENT-INTERACTIVE ART DIRECTOR, LACI Primary Care Unavailabl e OSMAN FIELD SALES AGENT-INTERACTIVE ART DIRECTOR, LACI Attending Unavailabl e JULY PERDUE, ROHAN Romero Attending Unavaila ble OSMAN PERDUE, LACI Primary Care UnavailJOSE FRANCISCO Matos DO Referring Unavailable JOSE ROBERTO DO Consulting Unavailable JULY BENTON-RODRIGO, ROHAN Romero Admitting Unavaila ble Unavailable Primary Care Provider Unavailluisa Brewer DIPPER CLOCK AND WATCH HANDS, DIPPER CLOCK [employer] WATCH [employer]S-C Laci Primary Care Provider [phone] Osman D[employer] CLOCK [employer]ATCH [employer]S, DIPPER CLOCK [employer] WATCH [employer]S-C Laci Referring Provider [id number] [id number] MD Prieto Meade Attending Provider Dr. Shlomo Umana Attending Provider Balwinder Alves MD Primary Care Provider [phone] ZANDER UREÑA Referring Unavailable TETE TREVINO Attending [...] Unavailable Balwinder Alves MD Primary Care Provider Unavaila jerri Alves MD, Balwinder Dominguez Attending Provider Unavailable Nelson OLVERA, Balwinder Angelica Referring Provider Unavailable Dr. Dorota James MD Attending Provider Erika OLVERA, Dr. Raya Referring Provider Dr. Balwinder Alves MD Primary Care Provider Nelson OLVERA, Balwinder Dominguez Primary Care Provider Unavaila jerri Alves MD, Balwinder Dominguez Attending Provider Unavailable Nelson OLVERA, Balwinder Dominguez Referring Provider Unavailable Erika OLVERA, Dr. Raya Attending Provider Erika OLVERA, Dr. Raya Referring Provider Dr. Balwinder Alves MD Referring Provider Alves OLS, Balwinder K Primary Care Unavailable Alves, Balwinder K Attending Unavailable Alves, Balwinder K Primary Care Unavailable WynesDorota blanco Attending Unavailable Alves, Balwinder K Referring Unavailable Alves OLS, Balwinder [...] Unavailable Alves, Balwinder K Primary Care Unavailable Dorota James Referring Unavailable Dorota James Attending Unavailable Alves OLS, Balwinder K Attending [...] Unavailable Alves, Balwinder K Primary Care Unavailable Dorota James Referring Unavailable Dorota James Attending Unavailable Alves, Balwinder K Primary Care Unavailable Dorota James Attending Unavailable Dorota James Referring Unavailable Alves OLS, Balwinder K Primary Care Unavailable Alves OLS, Balwinder K Attending Unavailable Allergies Allergy Classification Reported Allergen(s) Allergy Type Date of Onset Reaction(s) Facility (4 sources) Acetaminophen / oxyCODONE; Translations: [acetaminophen-oxyco done] Drug Allergy [facility] (7 sources) Adhesive Tape Allergy to substance 07-05-20 23 REDNESS & BLISTERS [facility] (4 sources) Amoxicillin / Clavulanate; Translations: [amoxicillin-clavula kellie] Drug Allergy Rash [facility] (4 sources) Aspirin; Translations: [aspirin] Drug Allergy Unknown [facility] (20 sources) Ciprofloxacin; Translations: [ciprofloxacin] Drug Allergy 07-05-20 Rash [facility] (4 sources) dapagliflozin; Translations: [dapagliflozin] Drug Allergy Rash [facility] (7 sources) Ibuprofen; Translations: [ibuprofen] Drug Allergy 07-05-20 [facility] (20 sources) Latex; Translations: [latex] Drug allergy 07-05-20 23 BLISTERS & REDNESS, blisters, Other [facility] Comment on above: BLISTERS (18 sources) Sulfamethoxazole; Translations: [sulfamethoxazole] Drug Allergy 11-01-19 21 Hives, Shortness of breath [facility] (6 sources) Cephalexin; Translations: [cephalexin] Drug Allergy 07-05-20 23 Hives [facility] Comment on above: Immediate rash / hiv es; patient seen in ER after last administration of Keflex (15 sources) Adhesive Tape; Translations: [adhesive tape] Allergy to substance 07-16-20 23 blister [facility] (17 sources) Trimethoprim Drug Allergy 11-01-19 21 Shortness of breath [facility] (3 sources) augmenten Allergy to substance 07-16-20 [facility] (4 sources) Aluminum aspirin Drug Allergy 07-05-20 Unknown [facility] (4 sources) dapagliflozin Drug Allergy 07-05-20 [facility] (4 sources) Amoxicillin-Pot Clavulanate Drug Allergy 07-05-20 [facility] (4 sources) Diphenhydramine-Acet aminophen Drug Allergy 07-05-20 [facility] (3 sources) Acetaminophen / oxyCODONE Drug Allergy 10-14-19 [facility] (3 sources) Sulfamethoxazole Allergy to substance 11-01-19 [facility] (3 sources) Wound Dressing Adhesive Drug Allergy 07-16-20 [facility] (11 sources) Amoxicillin Drug Allergy 02-06-20 [facility] (11 sources) Clavulanate Drug Allergy 02-06-20 [facility] (11 sources) Vancomycin Drug Allergy 02-06-20 red man syndrome [facility] (1 source) Acetaminophen Drug Allergy 05-29-20 [facility] (1 source) Amoxicillin Drug Allergy 05-17-20 [facility] (1 source) Aspirin Drug Allergy 05-29-20 [facility] (1 source) Cephalexin Drug Allergy 05-29-20 [facility] (1 source) Ciprofloxacin Drug Allergy 05-17-20 [facility] (1 source) Clavulanate Drug Allergy 05-17-20 [facility] (1 source) dapagliflozin Drug Allergy 05-29-20 [facility] (1 source) diphenhydrAMINE Drug Allergy 05-29-20 [facility] (1 source) Ibuprofen Drug Allergy 05-29-20 [facility] (1 source) phenyltoloxamine Drug Allergy 05-29-20 [facility] (1 source) Sulfamethoxazole Drug Allergy 05-17-20 [facility] (1 source) Trimethoprim Drug Allergy 05-17-20 [facility] (1 source) Vancomycin Drug Allergy 05-17-20 [facility] Medications Current Medications Medication Drug Class(es) Dates Sig (Normalized) Sig (Original) 3 ML semaglutide 2.68 MG/ML Pen Injector [Ozempic] (1 source) Start: 05-19-2023 End: 08-17-2023 inject 1 dose by subcutaneous injection every week Ozempic 8 mg/3 mL (2 mg dose) subcutaneous solution Dose : 2 mg =, Subcutaneous, qWeek, in the abdomen, thigh, or upper arm, # 9 mL, 0 Refill(s), Pharmacy: [facility]/pharmacy #[id number], Type 2 diabetes mellitus, 168.91, cm, 02/18/23 11:25:00 EDT, Height, kg, 02/18/23 11:25:00 EDT, Dosing Weight Start Date: 05/19/23 Stop Date: 08/17/23 Status: Ordered acetaminophen 500 mg oral tablet (13 sources) Start: 05-17-2025 take 1 tablet by mouth every six hours as needed Acetaminophen (Tylenol Extra Strength) 500 mg tablet Active 500 mg PO EVERY 6 HOURS as needed May 17, 2025 12:00am Start: 07-22-2023 [facility] Pain Relief Extra St 500 MG tablet [...] 1:00am ascorbic acid 500 mg oral capsule (2 sources) Vitamin C Start: 05-17-2025 Ascorbic Acid (Vitamin C) 500 mg capsule Active mg PO May 17, 2025 12:00am Boric Acid (Azo Boric Acid) 600 mg suppository (2 sources) Start: 05-17-2025 Boric Acid (Az o Boric [...] qDay, # 180 tab(s), 3 Refill(s), Pharmacy: [facility]/pharmacy #[id number], 167.6, cm, 11/20/22 11:29:00 EST, Height, kg, 11/20/22 11:29:00 EST, Dosing Weight Start Date: 11/20/22 Status: Ordered Start: 11-13-2021 calcium (as ca rbonate) 600 mg oral tablet Dose : 1,200 mg = 2 tab(s), Oral, qDay, # 180 tab(s), 3 Refill(s), Pharmacy: [facility]/pharmacy #[id number], 167.6, cm, 11/05/21 9:58:00 EST, Height, kg, 11/05/21 9:58:00 EST, Dosing Weight Start Date: 11/13/21 Status: Ordered cholecalciferol 0.05 mg oral tablet (10 sources) Vitamin D Start: 05-17-2025 take 1 [...] Active colestipol hydrochloride 1000 mg oral tablet (2 sources) Bile Acid Sequestrant Start: 05-17-2025 Colestipol 1 gram tablet Active g PO May 17, 2025 12:00am D-Mannose (2 sources) Start: 05-17-2025 take 1 capsule by mouth once D-Mannose 500 mg capsule Active mg PO May 17, 2025 12:00am diclofenac sodium 0.01 mg/mg topical gel (2 sources) Nonsteroidal Anti-inflammatory Drug Start: 05-17-2025 Diclofenac Sodium [...] Status: Ordered gabapentin 400 mg oral capsule (20 sources) Anti-epileptic Agent Start: 05-17-2025 take 1 capsule by mouth three times daily Gabapentin 400 mg capsule Active 400 mg PO THREE TIMES A DAY May 17, 2025 12:00am Start: 06-10-2023 End: 09-08-2023 gabapentin 400 mg oral capsu le Dose : 400 mg = 1 cap(s), Oral, TID, # 270 cap(s), 0 Refill(s), Pharmacy: [facility]/pharmacy #[id number], Diabetic neuropathy, 168.91, cm, 02/18/23 11:25:00 EDT, Height, 127.7, kg, 02/18/23 11:25:00 EDT, Dosing Weight Start Date: 06/10/23 Stop Date: 09/08/23 Status: Ordered Start: 11-20-2022 End: 02-18-2023 gabapentin 400 mg oral capsu le Dose : 400 mg = 1 cap(s), Oral, TID, # 270 cap(s), 0 Refill(s), Pharmacy: [facility]/pharmacy #[id number], Diabetic neuropathy, 167.6, cm, 11/20/22 11:29:00 EST, Height, 134, kg, 11/20/22 11:29:00 EST, Dosing Weight Start Date: 11/20/22 Stop Date: 02/18/23 Status: Ordered Start: 10-25-2021 End: 01-23-2022 gabapentin 400 mg oral capsu le Dose : 400 mg = 1 cap(s), Oral, TID, dose change, # 270 cap(s), 0 Refill(s), Pharmacy: [facility]/pharmacy #[id number], Diabetic neuropathy, 166.37, cm, 07/24/21 11:31:00 EDT, Height, 134.5, kg, 07/24/21 11:31:00 EDT, Dosing Weight Start Date: 10/25/21 Stop Date: 01/23/22 Status: Ordered Start: 04-23-2021 End: 07-22-2021 gabapentin 400 mg oral capsu le Dose : 400 mg = 1 cap(s), Oral, TID, dose change, # 270 cap(s), 0 Refill(s), Pharmacy: [facility]/pharmacy #[id number], Diabetic neuropathy, 167.6, cm, 04/23/21 11:30:00 [...] E11.9, # 4 EA, 3 Refill(s), Pharmacy: [facility]/pharmacy #[id number], Diabetes, 166.37, cm, 07/24/21 11:31:00 EDT, Height, kg, 07/24/21 11:31:00 EDT, Dosing Weight Start Date: 07/24/21 Stop Date: 07/19/22 Status: Ordered Start: 05-14-2021 inject 1 dose by sub cutaneous injection twice daily Lantus Solostar Pen 100 units/mL 3 mL Pen Dose : 30 unit(s) =, Subcutaneous, BID, EA=BOX OF 5 PENS diabetes E11.9, # 4 EA, 3 Refill(s), Pharmacy: [facility]/pharmacy #[id number], 167.6, cm, 04/23/21 11:30:00 EDT, Height, kg, 04/23/21 11:30:00 EDT, Dosing Weight Start Date: 05/14/21 Status: Ordered loperamide hydrochloride 2 mg oral capsule (2 sources) Opioid Agonist Start: 05-17-2025 take 1 capsule by mouth every six hours as needed Loperamide (Imodium A-D) 2 mg capsule Active 2 mg PO EVERY 6 HOURS as needed May 17, 2025 12:00am losartan potassium 100 mg oral tablet (18 sources) Angiotensin 2 Receptor Ysabel Start: 02-18-2023 losartan 100 mg oral tablet Dose : 100 mg = 1 tab(s), Oral, Daily, # 90 tab(s), 1 Refill(s), Pharmacy: [facility]/pharmacy #[id number], Hypertension, 168.91, cm, 02/18/23 11:25:00 EDT, Height, kg, 02/18/23 11:25:00 EDT, Dosing Weight Start Date: 02/18/23 Status: Ordered Start: 02-25-2022 losartan 100 m g oral tablet Dose : 100 mg = 1 tab(s), Oral, Daily, # 90 tab(s), 3 Refill(s), [id number], Hypertension, 167.6, cm, 02/04/22 11:02:00 EDT, Height, kg, 02/04/22 11:02:00 EDT, Dosing Weight Start Date: 02/25/22 Status: Ordered Start: 07-24-2021 losartan 100 m g oral tablet Dose : 100 mg = 1 tab(s), Oral, Daily, In absence of PCP, # 90 tab(s), 1 Refill(s), Pharmacy: [facility]/pharmacy #[id number], Hypertension, 166.37, cm, 07/24/21 11:31:00 EDT, Height, kg, 07/24/21 11:31:00 EDT, Dosing Weight Start Date: 07/24/21 Status: Ordered Start: 04-23-2021 losartan 100 m g oral tablet Dose : 100 mg = 1 tab(s), Oral, Daily, In absence of PCP, # 90 tab(s), 1 Refill(s), [id number], Hypertension, 167.6, cm, 04/23/21 11:30:00 EDT, Height, kg, 04/23/21 11:30:00 EDT, Dosing Weight Start Date: 04/23/21 Status: Ordered Start: 11-01-2020 Losartan 100 M G tablet Active DAILY November 01, 2020 1:00am Menthol / Zinc Oxide (2 sources) Start: 05-17-2025 Menthol-Zinc Oxide (Calmoseptine) 0.44-20.6 % ointment Active 1 NMA TOPICAL 4 to 6 times per day as needed May 17, 2025 12:00am metFORMIN hydrochloride 1000 mg oral tablet (18 sources) Biguanide Start: 07-24-2020 Metformin 1,000 MG tablet Active 1000 mg PO November 01, 2020 1:00am methenamine hippurate 1000 mg oral tablet (2 sources) Start: 05-17-2025 Methenamine Hippurate 1 gram tablet Active 1 g PO TWICE A DAY May 17, 2025 12:00am naproxen 250 mg oral tablet (1 source) Nonsteroidal Anti-inflammatory Drug Start: 07-04-2023 End: 07-14-2023 naproxen 250 mg oral tablet Dose : 250 mg = 1 tab(s), Oral, BID, X 10 day(s), # 20 tab(s), 0 Refill(s), 07/14/23 1:08:00 PM EDT, Pharmacy: [facility]/pharmacy #[id number], 160, cm, 06/30/23 18:36:00 EDT, Height, kg, 06/30/23 18:36:00 EDT, Dosing Weight Start Date: 07/04/23 Stop Date: 07/14/23 Status: Ordered oxybutynin chloride 5 mg oral tablet (2 sources) Cholinergic Muscarinic Antagonist Start: 05-17-2025 take 1 tablet by mouth once daily Oxybutynin Chloride 5 mg tablet Active 5 mg PO daily May 17, 2025 12:00am oxyCODONE hydrochloride 5 mg oral tablet (2 sources) Opioid Agonist Start: 05-17-2025 take 1 tablet [...] E11.9, # 2 EA, 0 Refill(s), Pharmacy: [facility]/pharmacy #[id number], 167.6, cm, 04/23/21 11:30:00 EDT, Height, [...] sites, # 9 mL, 0 Refill(s), Pharmacy: [facility]/pharmacy #[id number], Diabetes Diabetes mellitus, 167.6, cm, 11/20/22 11:29:00 EST, Height, kg, 11/20/22 11:29:00 EST, Dosing Weight Start Date: 11/20/22 Stop Date: 02/18/23 Status: Ordered simvastatin 5 mg oral tablet (17 sources) HMG-CoA Reductase Inhibitor Start: 07-16-2023 take 1 tablet by mouth once daily Simvastatin 5 mg tablet Active 5 mg PO DAILY July 16, 2023 12:00am Start: 08-20-2022 simvastatin 5 mg oral tablet Dose : 5 mg = 1 tab(s), Oral, qHS, # 90 tab(s), 3 Refill(s), Pharmacy: [facility]/pharmacy #[id number], Type 2 diabetes mellitus, 167.6, cm, 08/19/22 12:13:00 EST, Height, kg, 08/19/22 12:13:00 EST, Dosing Weight Start Date: 08/20/22 Status: Ordered Start: 08-28-2021 simvastatin 5 mg oral tablet Dose : 5 mg = 1 tab(s), Oral, qHS, # 90 tab(s), 3 Refill(s), [id number], Type 2 diabetes mellitus, 166.37, cm, 07/24/21 11:31:00 EDT, Height, kg, 07/24/21 11:31:00 EDT, Dosing Weight Start Date: 08/28/21 Status: Ordered SITagliptin 100 mg oral tablet (17 sources) Dipeptidyl Peptidase 4 Inhibitor Start: 11-01-2020 take 1 tablet by mouth once daily Sitagliptin Phosphate 100 MG tablet Active 100 mg PO DAILY November 01, 2020 1:00am sodium chloride 0.111 meq/ml nasal spray (2 sources) Start: 05-17-2025 Sodium Chlorid e 0.65 % aerosol,spray Active 2 NMA INTRANASAL Q4H May 17, 2025 12:00am while awake traZODone hydrochloride 100 mg oral tablet (18 sources) Serotonin Reuptake Inhibitor Start: 02-18-2023 traZODone 100 mg oral tablet Dose : 100 mg = 1 tab(s), Oral, qHS, # 90 tab(s), 3 Refill(s), [id number], Insomnia, 168.91, cm, 02/18/23 11:25:00 EDT, Height, kg, 02/18/23 11:25:00 EDT, Dosing Weight Start Date: 02/18/23 Status: Ordered Start: 05-01-2022 traZODone 100 mg oral tablet Dose : 100 mg = 1 tab(s), Oral, qHS, # 90 tab(s), 3 Refill(s), [id number], Insomnia, 167.6, cm, 02/04/22 11:02:00 EDT, Height, kg, 02/04/22 11:02:00 EDT, Dosing Weight Start Date: 05/01/22 Status: Ordered Start: 07-24-2021 traZODone 100 mg oral tablet Dose : 100 mg = 1 tab(s), Oral, qHS, # 90 tab(s), 1 Refill(s), [id number], Insomnia, 166.37, cm, 07/24/21 11:31:00 EDT, Height, kg, 07/24/21 11:31:00 EDT, Dosing Weight Start Date: 07/24/21 Status: Ordered Start: 04-23-2021 traZODone 100 mg oral tablet Dose : 100 mg = 1 tab(s), Oral, qHS, # 90 tab(s), 1 Refill(s), [id number], Insomnia, 167.6, cm, 04/23/21 11:30:00 EDT, [...] Daily, # 90 cap(s), 3 Refill(s), Pharmacy: [facility]/pharmacy #[id number], 166.37, cm, 07/24/21 11:31:00 EDT, Height, kg, 07/24/21 11:31:00 EDT, Dosing Weight Start Date: 09/11/21 Status: Ordered Vitamin D3 400 intl units (1 0 mcg) oral tablet (1 source) Start: 04-23-2021 Vitamin D3 400 intl units (10 mcg) oral tablet Dose : 20 mcg = 2 tab(s), Oral, qDay, # 180 tab(s), 3 Refill(s), Pharmacy: [facility]/pharmacy #[id number], Vitamin D deficiency, 167.6, cm, 04/23/21 11:30:00 EDT, Height, kg, 04/23/21 11:30:00 EDT, Dosing Weight Start Date: 04/23/21 Status: Ordered Vitamin D3 50 mcg (2000 intl units) oral tablet (2 sources) Start: 08-20-2022 Vitamin D3 50 mcg (2000 intl units) oral tablet Dose : 2,000 unit(s) = 1 tab(s), Oral, Daily, dose increase, # 90 tab(s), 3 Refill(s), Pharmacy: [facility]/pharmacy #[id number], Vitamin D deficiency, 167.6, cm, 08/19/22 12:13:00 EST, Height, kg, 08/19/22 12:13:00 EST, Dosing Weight Start Date: 08/20/22 Status: Ordered Completed/Discontinued Medications Medication Drug Class(es) Dates Sig (Normalized) Sig (Original) acetaminophen 325 mg / HYDROcodone bitartrate 5 mg oral tablet (15 sources) Opioid Agonist Start: 07-16-2023 End: 05-17-2025 Hydrocodone-Acetami nophen 5-325 mg tablet Discontinued 1 {tbl} PO AT BEDTIME as needed 0 July 16, 2023 12:00am May 17, 2025 9:58am Start: 07-16-2023 take 1 tablet by ann th at bedtime Hydrocodone-Acetaminophen Active 1 TABLE T PO AT BEDTIME July 16, 2023 12:00am Start: 07-03-2023 End: 07-06-2023 Edgar 325- 5 mg oral tablet Dose = [...] pain/diarrhea, # 120 packet(s), 0 Refill(s), Pharmacy: [facility]/pharmacy #[id number], Diarrhea, 167.6, cm, 02/04/22 11:02:00 EDT, [...] pain/diarrhea, # 120 packet(s), 0 Refill(s), Pharmacy: [facility]/pharmacy #[id number], Diarrhea, 167.6, cm, 02/04/22 11:02:00 EDT, Height, kg, 02/04/22 11:02:00 EDT, Dosing Weight Start Date: 04/03/22 Stop Date: 9/28/22 Status: Ordered clotrimazole 10 mg/ml topical cream (1 source) Azole Antifungal Start: 07-03-2023 clotrimazole 1% topical cream Apply 1 calos, Topical, BID, 0 Refill(s), Cream, 128 Start Date: 07/03/23 Status: Ordered fenofibrate 145 mg oral tablet (15 sources) Peroxisome Proliferator Receptor alpha Agonist Start: [...] Da te Episodic/Chronic Calculus of urinary tract (6 sources) Kidney stone; Translations: [Calculus of kidney] Onset: 05-22-2025 05-17-2025 Episodic Diabetes mellitus with complications (20 sources) Neuropathy due to diabetes mellitus; Translations: [Type 2 diabetes mellitus with diabetic neuropathy, unspecified] Onset: 06-30-2023 02-06-2022 Chronic Comment on above: bowen 2 Diabetes mellitus without complication (10 sources) Diabetes mellitus; Translations: [Type 2 diabetes mellitus without complication] Onset: 06-30-2023 02-22-2020 Chronic Disorders of lipid metabolism (18 sources) Hyperlipidemia; Translations: [Hyperlipidemia, unspecified] 05-10-2019 Chronic E Codes: Fall (14 sources) Fall; Translations: [Unspecified fall, initial encounter] [...] Chronic Inflammatory diseases of female pelvic organs (11 sources) Abscess of labia; Translations: [Abscess of [...] neck 05-17-2020 Episodic Other non-traumatic joint disorders (14 sources) Ankle pain; Translations: [Pain in left [...] 11-15-2019 Episodic Skin and subcutaneous tissue infections (14 sources) Cellulitis of leg, excluding foot; Translations: [Cellulitis of left lower limb] 11-01-2020 Episodic Transient cerebral ischemia (2 sources) Transient cerebral ischemia 04-06-2019 Chronic Urinary tract infections (8 sources) Urinary tract infectious disease; Translations: [Urinary tract infection, site not specified] Onset: 07-01-2023 Episodic Past or Other Problems Problem Classification Problem Date Documented Da te Episodic/Chronic Abdominal pain (3 sources) Flank pain; Translations: [Unspecified abdominal pain] Onset: 01-12-2025 05-17-2025 Episodic Other aftercare (1 source) Other usp (current) drug therapy; Translations: [Other usp (current) drug therapy] Onset: 01-12-2025 Episodic Results Test Name Value Interpretation Reference Range Facility MR/PAT.Srinivasa 05-30-2025 MR/PAT.[facility]Y [facility] Medical Records Department [address] [place] [address] PAT - Anesthesia 05/30/25904 MR#: [id number] Acct: [id number] Name: GUMARO HUFF Rep #: [id number] : 1945 80 From: Shailesh Russell MD PCP: Dr. 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 When Was Last Pacemaker Check QUESTION #4 FULL TEXT: You/Your Family Experience fever (hyperthermia) with Anesthesia Last Oral Intake Last Oral intake: Last Oral Intake NPO since Meds taken in AM with sips of water? Meds patient instructed to take am of surgery PONV PONV - casino gaming inspector: PONV - casino gaming inspector Female Yes 05/29/25 16:00 HX of Motion Sickness No 05/29/25 16:00 HX of N/V After Surgery No 05/29/25 16:00 Non-Smoker Yes 05/29/25 16:00 Duration of Surgery greater Yes 05/29/25 16:00 than 60 minutes Number of Risk Factors 3 05/29/25 16:00 PONV Score Moderate Risk 05/29/25 16:00 Height Weight Height Weight: Anesthesia: Height Weight Height 5 ft 9 in 05/17/25 10:04 Respiratory Assessment Respiratory Assessment - casino gaming inspector: Respiratory Tract Infection Hx - casino gaming inspector Hx Respiratory Tract Infection No 05/29/25 16:00 STOP Sleep Apnea STOP Sleep Apnea - casino gaming inspector: STOP Sleep Apnea - casino gaming inspector Hx Hypertension Yes 05/29/25 16:00 Hx Sleep Apnea No 05/29/25 16:00 CPAP BIPAP Do you snore loudly (louder No 05/29/25 16:00 than talking or can be heard Do you often feel tired/ No 05/29/25 16:00 fatigued/ sleepy during daytime? Has anyone observed you stop No 05/29/25 16:00 breathing during sleep? STOP Results Negative 05/29/25 16:00 QUESTION #5 FULL TEXT : Do you snore loudly (louder than talking or can be heard through closed doors)? 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 Specify any problems Hx of Preganancy in last 3 No 05/29/25 16:00 Months Nurse Filling Out Transfusion DSCHRIBER 05/29/25 16:00 Questions: Date: 05/29/25 05/29/25 16:00 Time: 16:04 05/29/25 16:00 Patient unable to answer at this time (ie. confused, unrespo /Reproduction History /Reproductive History - casino gaming inspector: /Reproductive Hx- casino gaming inspector Hx Now No 05/29/25 16:00 Gestational Age (in weeks): EDC: Hx Hx Para Hx Section SAB No 05/29/25 16:00 [facility] Medical History (Updated 05/29/25 @ 16:12 by Lana Loo) Lives in retirement Wears glasses Wears dentures Diabetes Uses wheelchair Walker as ambulation aid Arthritis Bladder disease History of IBS Former smoker Hypertension Flank pain Kidney stones ESBL (extended spectrum beta-lactamase) producing bacteria infection Hx pulmonary embolism Home Medications ???Medication ???Instructions ???Recorded ???Last Taken ???Type duloxetine 60 mg capsule,delayed 60 mg PO QHS 11/01/20 Unknown Hist ory release losartan 100 mg tablet 100 mg PO DAILY 11/01/20 Unknown H istory metformin 1,000 mg tablet 1,000 mg PO BID 11/01/20 Unknown H istory trazodone 50 mg tablet 25 mg PO QHS 11/01/20 Unknown Hist ory simvastatin 5 mg tablet 5 mg PO QHS 07/16/23 Unknown Histo ry acetaminophen 500 mg tablet 1,000 mg PO TID 05/17/25 Unknown H istory (Tylenol Extra Stre (more content not included)... Normal [facility] Abdomen Single Viewon 2024 Abdomen Single View [facility] Services [address] [place] [address] Abdomen Single View MR#: [id number] Acct: [id number] Name: GUMARO HUFF Rep #: [id number] : 1945 F 80 From: Filippo Breen MD PCP: Dr. Balwinder Alves MD Status: REG CLI Study: Abdomen Single View Date of Exam: 05/17/25 Exam# [id number] Ordering Dr: Dorota James MD PROCEDURE: ABDOMEN SINGLE VIEW 05/17/2025 REASON FOR EXAM: KIDNEY STONE TECHNIQUE: ABDOMEN SINGLE VIEW COMPARISON: CT 03/31/2025 FINDINGS: Clear lung bases. No free air. Nonspecific bowel-gas pattern. Lumbar spine scoliosis and degeneration. Status post cholecystectomy. There is a curvy linear shaped staghorn calculus overlying the right renal shadow, as noted on previous CT measures 3.9 cm in length and about 1.7 cm in cross-section, on CT. No interval change. No left renal stones. No definite ureteral stones. Numerous pelvic phleboliths. RAD/Abdomen Single View IMPRESSION: Lower pole right renal staghorn calculus is redemonstrated. Reading Location: [place] [address] CC: Dr. Dorota James MD; Dr. Balwinder Alves MD Shelving Supervisor: Signed Normal [facility] Absolute lymphocyte countOrd ered By: Dorota James on 05-17-2025 Lymphocytes Auto (Unsp spec) [#/Vol] 1.88 10*3/uL 0.83-4.51 [facility] Absolute neutrophil countOrd ered By: Dorotaismael James on 05-17-2025 Neutrophils (Bld) [#/Vol] 4.3 10*3/uL 2.0-7.7 [facility] Anion gap in Serum or Plasma Ordered By: Dorota James on 05-17-2025 Anion gap [Moles/Vol] 12 mmol/L 02-16 [facility] Automated lymphocyte count a s percentage of total leukocytesOrdered By: Dorota James on 05-17-2025 Lymphocytes/100 WBC Auto (Unsp spec) 27.0 % 19-41 [facility] BUN/creatinine ratioOrdered By: Dorota James on 05-17-2025 Urea nitrogen/Creatinine [Mass ratio] 14.0 mg/mg - [facility] Basic Metabolic Profile (BMP )on 05-17-2025 BUN/CRE 14.0 RATIO Normal 07-24 [facility] Comment on above: Performed By: #### L 100.0100, L500.2500 #### [facility] [address] [place], [place], [id number] GAP 12 Normal 02-16 [facility] Comment on above: Performed By: #### L 100.0100, L500.2500 #### [facility] [address] [place], [address] Potassium [Moles/Vol] 4.7 mmol/L Normal 3.3-5.1 [facility] Comment on above: Performed By: #### L 100.0100, L500.2500 #### [facility] [address] [place], [address] Basophil percentageOrdered B y: Dorota James on 05-17-2024 Basophils/100 WBC (Bld) 0.4 % 0-1 [facility] CBC W/Diff, Automatedon 05-05-2024 Absolute Lymph 1.88 X10 3/uL Normal 0.83-4.51 [facility] Comment on above: Performed By: #### L 100.0100, L500.2500 #### [facility] [address] [place], [address] Absolute Neut 4.3 X10 3/uL Normal 2.0-7.7 [facility] Comment on above: Performed By: #### L 100.0100, L500.2500 #### [facility] [address] [place], [address] Basophils/100 WBC (Bld) 0.4 % Normal 0-1 [facility] Comment on above: Performed By: #### L 100.0100, L500.2500 #### [facility] [address] [place], [address] Eosinophils/100 WBC (Bld) 4.3 % Normal 0-5 [facility] Comment on above: Performed By: #### L 100.0100, L500.2500 #### [facility] [address] [place], [address] Erythrocyte distribution width (RBC) [Ratio] 14.1 % Normal 11.6-14.6 [facility] Comment on above: Performed By: #### L 100.0100, L500.2500 #### [facility] [address] [place], [address] Hematocrit (Bld) [Volume fraction] 39.8 % Normal 37-47 [facility] Comment on above: Performed By: #### L 100.0100, L500.2500 #### [facility] [address] [place], [address] Hemoglobin (Bld) [Mass/Vol] 12.1 g/dL Normal 12.0-15.0 [facility] Comment on above: Performed By: #### L 100.0100, L500.2500 #### [facility] [address] [place], [address] IG% 0.700 Normal 0.0-0.9 [facility] Comment on above: Result Comment: IG% - Immature Granulocytes (promyelocytes, myelocytes and metamyelocytes) > 1% indicates that a LEFT SHIFT is Present. Performed By: #### L 100.0100, L500.2500 #### [facility] [address] [place], [address] Lymphocytes/100 WBC (Bld) 27.0 % Normal 19-41 [facility] Comment on above: Performed By: #### L 100.0100, L500.2500 #### [facility] [address] [place], [address] MCH (RBC) [Entitic mass] 28.7 pg Normal 27.0-32.0 [facility] Comment on above: Performed By: #### L 100.0100, L500.2500 #### [facility] [address] [place], [address] MCHC (RBC) [Mass/Vol] 30.4 g/dL Low 32-36 [facility] Comment on above: Performed By: #### L 100.0100, L500.2500 #### [facility] [address] [place], [address] MCV (RBC) [Entitic vol] 94.5 fL Normal 81-99 [facility] Comment on above: Performed By: #### L 100.0100, L500.2500 #### [facility] [address] [place], [address] Monocytes/100 WBC (Bld) 6.5 % Normal 0-10 [facility] Comment on above: Performed By: #### L 100.0100, L500.2500 #### [facility] [address] [place], [address] Neutrophils/100 WBC (Bld) 61.1 % Normal 47-70 [facility] Comment on above: Performed By: #### L 100.0100, L500.2500 #### [facility] [address] [place], [address] Nucleated RBC (Bld) [#/Vol] 0 10*3/uL Normal 0-5 [facility] Comment on above: Performed By: #### L 100.0100, L500.2500 #### [facility] [address] [place], [address] Platelet mean volume (Bld) [Entitic vol] 8.8 fL Normal 6.2-12.0 [facility] Comment on above: Performed By: #### L 100.0100, L500.2500 #### [facility] [address] [place], [address] Platelets (Bld) [#/Vol] 220 10*3/uL Normal 150-450 [facility] Comment on above: Performed By: #### L 100.0100, L500.2500 #### [facility] [address] [place], [address] RBC (Bld) [#/Vol] 4.21 10*6/uL Normal 4.2-5.4 [facility] Comment on above: Performed By: #### L 100.0100, L500.2500 #### [facility] [address] [place], [address] RDW SD 48.4 fl High 35.1-43.9 [facility] Comment on above: Performed By: #### L 100.0100, L500.2500 #### [facility] [address] [place], [address] WBC (Bld) [#/Vol] 7.0 10*3/uL Normal 4.4-11.0 [facility] Comment on above: Performed By: #### L 100.0100, L500.2500 #### [facility] [address] [place], [address] Carbon dioxide, total [Moles /volume] in Central venous bloodOrdered By: Dorota James on 05-17-2025 CO2 [Moles/Vol] 26.4 mmol/L Normal 21.0-32.0 [facility] Comment on above: Performed By: #### L 100.0100, L500.2500 #### [facility] [address] [place], [address] Chloride assayOrdered By: Manuel James on 05-17-2025 Chloride [Moles/Vol] 99 mmol/L Normal 98-108 [facility] Comment on above: Performed By: #### L 100.0100, L500.2500 #### [facility] [address] [place], [address] Eosinophil percentageOrdered By: Dorota James on 05-17-2025 Eosinophils/100 WBC (Bld) 4.3 % 0-5 [facility] Erythrocyte distribution wid th ratioOrdered By: Dorota James on 05-17-2025 Erythrocyte distribution width (RBC) [Ratio] 14.1 % 11.6-14.6 [facility] Erythrocyte distribution wid th standard deviationOrdered By: Dorota James on 05-17-2025 Erythrocyte distribution width (RBC) [Ratio] 48.4 fl High 35.1-43.9 [facility] Glomerular filtration rate ( GFR) estimation/1.73 sq m using serum, plasma, or whole bOrdered By: Dorota James on 05-17-2025 GFR/1.73 sq M.predicted among non-blacks MDRD (S/P/Bld) [Vol rate/Area] 82 mL/min/{1.73_m2} Normal >60 [facility] Comment on above: mL/min/1.73m2 CKD-EP I Creatinine Equation (2020) Result Comment: mL/m in/1.73m2 CKD-EPI Creatinine Equation (2020) Performed By: #### L 100.0100, L500.2500 #### [facility] [address] [place], [place], [address] Hematocrit Auto (Bld) [Volum e fraction]Ordered By: Dorota James on 05-17-2025 Hematocrit (Bld) [Volume fraction] 39.8 % 37-47 [facility] Hemoglobin measurementOrdere d By: Dorota James on 05-17-2025 Hemoglobin (Bld) [Mass/Vol] 12.1 g/dL 12.0-15.0 [facility] Immature granulocytes/100 WB C Auto (Bld)Ordered By: Dorota James on 05-17-2025 Immature granulocytes/100 WBC (Bld) 0.700 % 0.0-0.9 [facility] Comment on above: IG% - Immature Granu locytes (promyelocytes, myelocytes and metamyelocytes) > 1% indicates that a LEFT SHIFT is Present. Laboratory - Chemistry and C hemistry - challengeOrdered By: Dorota James on 05-17-2025 Bilirubin Ql (U) Negative [facility] Glucose Ql (U) Negative [facility] Ketones Ql (U) Negative [facility] pH (U) 5 [pH] [facility] Specific gravity (U) [Rel density] 1.010 [facility] Urobilinogen (U) [Mass/Vol] Negative [facility] Laboratory - Hematology and Cell countsOrdered By: oDrota James on 05-17-2025 Hemoglobin Ql (U) Negative [facility] Laboratory - UrinalysisOrder ed By: Dorota James on 05-17-2025 Nitrite Ql (U) Positive [facility] Protein Ql (U) Negative [facility] MCV (mean corpuscular volume ) determinationOrdered By: Dorota James on 05-17-2025 MCV (RBC) [Entitic vol] 94.5 fL 81-99 [facility] MR/HUAcarly 05-17-2025 MR/OTILIA [facility] [address], [address] [place] [address] OFFICE VISIT Date of Service: 05/17/25 MR#: [id number] Acct: [id number] Name: GUMARO HUFF Rep #: [id number] : 1945 Provider: Dr. 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 Accompanied by: Daughter Is patient in pain?: Yes (lower back and right side) Pain scale (1-10): 6 Allergies adhesive tape Allergy (Mild, Verified 05/17/25 10:03) blister amoxicillin (From Augmentin) Allergy (Mild, Verified 05/17/25 10:03) Rash ciprofloxacin (From Cipro) Allergy (Mild, Verified 05/17/25 10:03) Rash clavulanic acid (From Augmentin) Allergy (Mild, Verified 05/17/25 10:03) Rash latex Allergy (Mild, Verified 05/17/25 10:03) Other vancomycin Adverse Reaction (Mild, Verified 05/17/25 10:03) red man syndrome sulfamethoxazole (From Bactrim) Adverse Reaction (Verified 05/17/25 10:03) Shortness of breath trimethoprim (From Bactrim) Adverse Reaction (Verified 05/17/25 10:03) Shortness of breath Medications ???Medication ???Instructions ???Recorded ???Confirmed ???Type duloxetine 60 mg capsule,delayed 60 mg PO 11/01/20 05/17/25 History release losartan 100 mg tablet DAILY 11/01/20 05/17/25 History metformin 1,000 mg tablet 1,000 mg PO 11/01/20 05/17/25 Hist ory sitagliptin phosphate 100 mg tablet 100 mg PO DAILY 11/01/20 History trazodone 50 mg tablet 50 mg PO PRN PRN Anxiety 11/01/20 05/17/25 History Alendronate Sodium 70 mg PO QWEEK 11/22/20 05/17/25 H istory simvastatin 5 mg tablet 5 mg PO DAILY 07/16/23 05/17/25 Hi story acetaminophen 500 mg tablet 500 mg PO Q6H PRN 05/17/25 5 History (Tylenol Extra Strength) ascorbic acid (vitamin C) 500 mg mg PO 05/17/25 05/17/25 History capsule boric acid 600 mg vaginal mg vaginal 05/17/25 05/17/25 Histo ry suppository (Azo Boric Acid) cholecalciferol (vitamin D3) 50 50 mcg PO QDAY 05/17/25 05/17/25 H istory mcg (2,000 unit) tablet colestipol 1 gram tablet g PO 05/17/25 05/17/25 History d-mannose 500 mg capsule mg PO 05/17/25 05/17/25 History diclofenac sodium 1 % topical gel topical 05/17/25 05/17/25 History gabapentin 400 mg capsule 400 mg PO TID 05/17/25 05/17/25 Hi story loperamide 2 mg capsule (Imodium 2 mg PO Q6H PRN 05/17/25 05/17/25 History A-D) menthol 0.44 %-zinc oxide 20.6 % 1 applic topical 4-6XD PRN 5 05/17/25 History topical ointment (Calmoseptine) methenamine hippurate 1 gram tablet 1 g PO BID 05/17/25 05/17/25 Hi story oxybutynin chloride 5 mg tablet 5 mg PO QDAY 05/17/25 05/17/25 His tory oxycodone 5 mg tablet 5 mg PO TID PRN 05/17/25 05/17/25 History sodium chloride 0.65 % nasal spray 2 spray intranasal Q4H 05/17/25 05/17/25 History aerosol Have you fallen in the past year?: No Nurse's Note: oxycodone not helping pain anymore. [facility] Medical History (Updated 05/17/25 @ 11:[address] Dorota James MD) Flank pain Kidney stones ESBL (extended spectrum beta-lactamase) producing bacteria infection Closed fracture of left distal fibula Left ankle pain Cataract Hx pulmonary embolism Brain bleed Surgical History Total knee replacement status Social History Smoking Status: Former smoker HPI HPI Urology Chief Complaint: ct follow up Details: GUMARO HUFF, is a 80 F. She is here for follow-up after having a CT scan for further assessment of right stone. She is having right side and back pain into her current pain regimen is not working as well. Urine is still cloudy, no hematuria. She denies fever, chills, nausea or vomiting. ROS Const Constitutional: No chills, fatigue, fever(s), headache(s), night sweats, weakness, weight change, abnormal sleep pattern or change in appetite Eyes Eyes: No change in vision ENT ENT: No headache(s) or dry mouth Resp Respiratory: No cough, chest congestion, shortness of breath or wheezing Cardio Cardiology: Positive for other (No chest pain.); No shortness of breath, irregular heart rhythm or lightheadedness Gastro GI: Positive for other (No nausea.); No abdominal pain, change in bowel habits, constipation, diarrhea or vomiting Musc Musculoskeletal: Positive for abnormal gait (In a wheelchair) and back pain (Right side) Skin Skin: No yellowing of the eye, lesions, itchy eyes, rash or skin ulcer Neuro Neurology: Positive for abnormal gait (In a wheelchair); No confusion, dizziness, weakness, (more content not included)... Normal [facility] Mean corpuscular hemoglobin (MCH) determinationOrdered By: Dorota James on 05-17-2025 MCH (RBC) [Entitic mass] 28.7 pg 27.0-32.0 [facility] Mean corpuscular hemoglobin concentration (MCHC) determinationOrdered By: Dorota James on 05-17-2025 MCHC (RBC) [Mass/Vol] 30.4 g/dL Low 32-36 [facility] Mean platelet volume determi nationOrdered By: Dorota James on 05-17-2025 Platelet mean volume (Bld) [Entitic vol] 8.8 fL 6.2-12.0 [facility] Monocyte percentageOrdered B y: Dorota James on 05-17-2025 Monocytes/100 WBC (Bld) 6.5 % 0-10 [facility] Neutrophil percentageOrdered By: Dorota James on 05-17-2025 Neutrophils/100 WBC (Bld) 61.1 % 47-70 [facility] No Panel InformationOrdered By: Dorota James on 05-17-2025 Urine Leukocytes Positive [facility] Urine Non-Hemolyzed Blood Negative [facility] Nucleated red blood cell per centageOrdered By: Dorota James on 05-17-2025 Nucleated RBC/100 WBC (Bld) [Ratio] 0 % 0-5 [facility] Platelet countOrdered By: Manuel James on 05-17-2025 Platelets (Bld) [#/Vol] 220 10*3/uL 150-450 [facility] Potassium measurement (mass/ volume)Ordered By: Dorota James on 05-17-2025 Potassium (Unsp spec) [Mass/Vol] 4.7 mmol/L 3.3-5.1 [facility] RBC Auto (Bld) [#/Vol]Ordere d By: Dorota James on 05-17-2025 RBC (Bld) [#/Vol] 4.21 10*6/uL 4.2-5.4 [facility] Serum creatinine measurement (mass/volume)Ordered By: Dorota James on 05-17-2025 Creatinine [Mass/Vol] 0.73 mg/dL Normal 0.70-1.20 [facility] Comment on above: Performed By: #### L 100.0100, L500.2500 #### [facility] [address] [place], [place] [address], [address] Serum glucose measurement (m ass/volume)Ordered By: Dorota James on 05-17-2025 Glucose [Mass/Vol] 179 mg/dL High 70-99 [facility] Comment on above: Performed By: #### L 100.0100, L500.2500 #### [facility] [address] [place], [address] Serum or plasma calcium jacqueline urement (mass/volume)Ordered By: Dorota James on 05-17-2025 Calcium [Mass/Vol] 9.5 mg/dL Normal 7.6-11.0 [facility] Comment on above: Performed By: #### L 100.0100, L500.2500 #### [facility] [address] [facility] [place], [address] Serum or plasma urea nitroge n measurement (mass/volume)Ordered By: Dorota James on 05-17-2025 Urea nitrogen [Mass/Vol] 10 mg/dL Normal 4-19 [facility] Comment on above: Performed By: #### L 100.0100, L500.2500 #### [facility] [address] [place], [address] Sodium levelOrdered By: Sarah James on 05-17-2025 Sodium [Moles/Vol] 137 mmol/L Normal 133-145 [facility] Comment on above: Performed By: #### L 100.0100, L500.2500 #### [facility] [address] [facility] [place], [address] White blood cell (WBC) count Ordered By: Dorota James on 05-17-2025 WBC (Bld) [#/Vol] 7.0 10*3/uL 4.4-11.0 [facility] Abdomen/Pelvis without Conto n 03-31-2025 Abdomen/Pelvis without Cont [facility] Services [address] [place] [address] Abdomen/Pelvis without Cont MR#: [id number] Acct: [id number] Name: GUMARO HUFF Rep #: [id number] : 1945 F 80 From: Douglas ceron MD PCP: Dr. Balwinder Alves MD Status: REG CLI Study: Abdomen/Pelvis without Cont Date of Exam: 03/06 04/28 Exam# [id number] Ordering Dr: Dorota James MD PROCEDURE: ABDOMEN/PELVIS [...] Sigmoid diverticulosis. Status post cholecystectomy. Reading Location: [id number] CC: Dr. Dorota James MD; Dr. Balwinder Alves MD Shelving Supervisor: Signed Normal [facility] Anion gap in Serum or Plasma Ordered By: Balwinder Alves on 03-16-2025 Anion gap [Moles/Vol] 11 mmol/L 5-15 [facility] BUN/creatinine ratioOrdered By: Balwinder Alves on 03-16-2025 Urea nitrogen/Creatinine [Mass ratio] 13.7 mg/mg - [facility] Basic Metabolic Profile (BMP )on 03-16-2025 BUN/CRE 13.7 RATIO Normal - [facility] Comment on above: Order Comment: 102-2 Performed By: #### L 500.2500, L100.0100 #### [facility] [address] [place], [address] Calcium [Mass/Vol] 9.6 mg/dL Normal 7.6-11.0 [facility] Comment on above: Order Comment: 102-2 Performed By: #### L 500.2500, L100.0100 #### [facility] [address] [place], [address] Chloride [Moles/Vol] 99 mmol/L Normal 98-108 [facility] Comment on above: Order Comment: 102-2 Performed By: #### L 500.2500, L100.0100 #### [facility] [address] [place], [address] CO2 [Moles/Vol] 28.0 mmol/L Normal 21.0-32.0 [facility] Comment on above: Order Comment: 102-2 Performed By: #### L 500.2500, L100.0100 #### [facility] [address] [place], [address] Creatinine [Mass/Vol] 0.67 mg/dL Low 0.70-1.20 [facility] Comment on above: Order Comment: 102-2 Performed By: #### L 500.2500, L100.0100 #### [facility] [address] [place], [address] GAP 11 Normal 5-15 [facility] Comment on above: Order Comment: 102-2 Performed By: #### L 500.2500, L100.0100 #### [facility] [address] [place], [address] GFR/1.73 sq M.predicted among non-blacks MDRD (S/P/Bld) [Vol rate/Area] 87 mL/min/{1.73_m2} Normal >60 [facility] Comment on above: Order Comment: 102-2 Result Comment: mL/m in/1.73m2 CKD-EPI Creatinine Equation (2020) Performed By: #### L 500.2500, L100.0100 #### [facility] [address] [place], [address] Glucose [Mass/Vol] 222 mg/dL High 70-99 [facility] Comment on above: Order Comment: 102-2 Performed By: #### L 500.2500, L100.0100 #### [facility] [address] [place], [address] Potassium [Moles/Vol] 4.3 mmol/L Normal 3.3-5.1 [facility] Comment on above: Order Comment: 102-2 Performed By: #### L 500.2500, L100.0100 #### [facility] [address] [place], [address] Sodium [Moles/Vol] 139 mmol/L Normal 133-145 [facility] Comment on above: Order Comment: 102-2 Performed By: #### L 500.2500, L100.0100 #### [facility] [address] [place], [address] Urea nitrogen [Mass/Vol] 9 mg/dL Normal 4-19 [facility] Comment on above: Order Comment: 102-2 Performed By: #### L 500.2500, L100.0100 #### [facility] [address] [place], [address] CBC-Complete Blood Cnt No Di ffon 03-16-2025 Erythrocyte distribution width (RBC) [Ratio] 15.1 % High 11.6-14.6 [facility] Comment on above: Order Comment: 102.2 Performed By: #### L 400.0001, #### [facility] [address] [place], [address] Hematocrit (Bld) [Volume fraction] 35.7 % Low 37-47 [facility] Comment on above: Order Comment: 102.2 Performed By: #### L 400.0001, #### [facility] [address] [place], [address] Hemoglobin (Bld) [Mass/Vol] 10.9 g/dL Low 12.0-15.0 [facility] Comment on above: Order Comment: 102.2 Performed By: #### L 400.0001, #### [facility] [address] [place], [address] MCH (RBC) [Entitic mass] 28.8 pg Normal 27.0-32.0 [facility] Comment on above: Order Comment: 102.2 Performed By: #### L 400.0001, #### [facility] [address] [place], [address] MCHC (RBC) [Mass/Vol] 30.5 g/dL Low 32-36 [facility] Comment on above: Order Comment: 102.2 Performed By: #### L 400.0001, #### [facility] [address] [place], [address] MCV (RBC) [Entitic vol] 94.4 fL Normal 81-99 [facility] Comment on above: Order Comment: 102.2 Performed By: #### L 400.0001, #### [facility] [address] [place], [address] Platelet mean volume (Bld) [Entitic vol] 8.6 fL Normal 6.2-12.0 [facility] Comment on above: Order Comment: 102.2 Performed By: #### L 400.0001, .2199 #### [facility] [address] [place], [address] Platelets (Bld) [#/Vol] 187 10*3/uL Normal 150-450 [facility] Comment on above: Order Comment: 102.2 Performed By: #### L 400.0001, .2199 #### [facility] [address] [place], [address] RBC (Bld) [#/Vol] 3.78 10*6/uL Low 4.2-5.4 [facility] Comment on above: Order Comment: 102.2 Performed By: #### L 400.0001, #### [facility] [address] [place], [address] RDW SD 51.7 fl High 35.1-43.9 [facility] Comment on above: Order Comment: 102.2 Performed By: #### L 400.0001, #### [facility] [address] [place], [address] WBC (Bld) [#/Vol] 7.1 10*3/uL Normal 4.4-11.0 [facility] Comment on above: Order Comment: 102.2 Performed By: #### L 400.0001, #### [facility] [address] [place], [address] Carbon dioxide, total [Moles /volume] in Central venous bloodOrdered By: Balwinder Alves on 03-16-2025 CO2 [Moles/Vol] 28.0 mmol/L 21.0-32.0 [facility] Chloride assayOrdered By: Jen Alves on 03-16-2025 Chloride [Moles/Vol] 99 mmol/L 98-108 [facility] Erythrocyte distribution wid th ratioOrdered By: Balwinder Alves on 03-16-2025 Erythrocyte distribution width (RBC) [Ratio] 15.1 % High 11.6-14.6 [facility] Erythrocyte distribution wid th standard deviationOrdered By: Balwinder Alves on 03-16-2025 Erythrocyte distribution width (RBC) [Ratio] 51.7 fl High 35.1-43.9 [facility] Glomerular filtration rate ( GFR) estimation/1.73 sq m using serum, plasma, or whole bOrdered By: Balwinder Alves on 03-16-2025 GFR/1.73 sq M.predicted among non-blacks MDRD (S/P/Bld) [Vol rate/Area] 87 mL/min/{1.73_m2} >60 [facility] Comment on above: mL/min/1.73m2 CKD-EP I Creatinine Equation (2020) Hematocrit Auto (Bld) [Volum e fraction]Ordered By: Balwinder Alves on 03-16-2025 Hematocrit (Bld) [Volume fraction] 35.7 % Low 37-47 [facility] Hemoglobin measurementOrdere d By: Balwinder Alves on 03-16-2025 Hemoglobin (Bld) [Mass/Vol] 10.9 g/dL Low 12.0-15.0 [facility] MCV (mean corpuscular volume ) determinationOrdered By: Balwinder Alves on 03-16-2025 MCV (RBC) [Entitic vol] 94.4 fL 81-99 [facility] Mean corpuscular hemoglobin (MCH) determinationOrdered By: Balwinder Alves on 03-16-2025 MCH (RBC) [Entitic mass] 28.8 pg 27.0-32.0 [facility] Mean corpuscular hemoglobin concentration (MCHC) determinationOrdered By: Balwinder Alves on 03-16-2025 MCHC (RBC) [Mass/Vol] 30.5 g/dL Low 32-36 [facility] Mean platelet volume determi nationOrdered By: Balwinder Alves on 03-16-2025 Platelet mean volume (Bld) [Entitic vol] 8.6 fL 6.2-12.0 [facility] Platelet countOrdered By: Jen Alves on 03-16-2025 Platelets (Bld) [#/Vol] 187 10*3/uL 150-450 [facility] Potassium measurement (mass/ volume)Ordered By: Balwinder Alves on 03-16-2025 Potassium (Unsp spec) [Mass/Vol] 4.3 mmol/L 3.3-5.1 [facility] RBC Auto (Bld) [#/Vol]Ordere d By: Balwinder Alves on 03-16-2025 RBC (Bld) [#/Vol] 3.78 10*6/uL Low 4.2-5.4 [facility] Serum creatinine measurement (mass/volume)Ordered By: Balwinder Alves on 03-16-2025 Creatinine [Mass/Vol] 0.67 mg/dL Low 0.70-1.20 [facility] Serum glucose measurement (m ass/volume)Ordered By: Balwinder Alves on 03-16-2025 Glucose [Mass/Vol] 222 mg/dL High 70-99 [facility] Serum or plasma calcium jacqueline urement (mass/volume)Ordered By: Balwinder Alves on 03-16-2025 Calcium [Mass/Vol] 9.6 mg/dL 7.6-11.0 [facility] Serum or plasma urea nitroge n measurement (mass/volume)Ordered By: Balwinder Alves on 03-16-2025 Urea nitrogen [Mass/Vol] 9 mg/dL 4-19 [facility] Sodium levelOrdered By: Balwinder Alves on 03-16-2025 Sodium [Moles/Vol] 139 mmol/L 133-145 [facility] White blood cell (WBC) count Ordered By: Balwinder Alves on 03-16-2025 WBC (Bld) [#/Vol] 7.1 10*3/uL 4.4-11.0 [facility] Anion gap in Serum or Plasma Ordered By: Balwinder Alves on 03-15-2025 Anion gap [Moles/Vol] 9 mmol/L -15 [facility] BUN/creatinine ratioOrdered By: Balwinder Alves on 03-15-2025 Urea nitrogen/Creatinine [Mass ratio] 13.6 mg/mg - [facility] Basic Metabolic Profile (BMP )on 03-15-2025 BUN/CRE 13.6 RATIO Normal 07-24 [facility] Comment on above: Order Comment: 102-2 Performed By: #### L 500.2500, L100.0100 #### [facility] [place], [address] Calcium [Mass/Vol] 9.6 mg/dL Normal 7.6-11.0 [facility] Comment on above: Order Comment: 102-2 Performed By: #### L 500.2500, L100.0100 #### [facility] [address] [place], [address] Chloride [Moles/Vol] 98 mmol/L Normal 98-108 [facility] Comment on above: Order Comment: 102-2 Performed By: #### L 500.2500, L100.0100 #### [facility] [address] [place], [address] CO2 [Moles/Vol] 30.1 mmol/L Normal 21.0-32.0 [facility] Comment on above: Order Comment: 102-2 Performed By: #### L 500.2500, L100.0100 #### [facility] [address] [place], [address] Creatinine [Mass/Vol] 0.79 mg/dL Normal 0.70-1.20 [facility] Comment on above: Order Comment: 102-2 Performed By: #### L 500.2500, L100.0100 #### [facility] [address] [place], [address] GAP 9 Normal 5-15 [facility] Comment on above: Order Comment: 102-2 Performed By: #### L 500.2500, L100.0100 #### [facility] [address] [place], [address] GFR/1.73 sq M.predicted among non-blacks MDRD (S/P/Bld) [Vol rate/Area] 75 mL/min/{1.73_m2} Normal >60 [facility] Comment on above: Order Comment: 102-2 Result Comment: mL/m in/1.73m2 CKD-EPI Creatinine Equation (2020) Performed By: #### L 500.2500, L100.0100 #### [facility] [address] [place], [address] Glucose [Mass/Vol] 188 mg/dL High 70-99 [facility] Comment on above: Order Comment: 102-2 Performed By: #### L 500.2500, L100.0100 #### [facility] [address] [place], [address] Potassium [Moles/Vol] 4.7 mmol/L Normal 3.3-5.1 [facility] Comment on above: Order Comment: 102-2 Performed By: #### L 500.2500, L100.0100 #### [facility] [address] [place], [address] Sodium [Moles/Vol] 137 mmol/L Normal 133-145 [facility] Comment on above: Order Comment: 102-2 Performed By: #### L 500.2500, L100.0100 #### [facility] [address] [place], [address] Urea nitrogen [Mass/Vol] 11 mg/dL Normal 4-19 [facility] Comment on above: Order Comment: 102-2 Performed By: #### L 500.2500, L100.0100 #### [facility] [address] [place], [address] CBC-Complete Blood Cnt No Di ffon 03-15-2025 Erythrocyte distribution width (RBC) [Ratio] 15.2 % High 11.6-14.6 [facility] Comment on above: Order Comment: 102-2 Performed By: #### L 500.2500, L100.0100 #### [facility] [address] [place], [address] Hematocrit (Bld) [Volume fraction] 36.2 % Low 37-47 [facility] Comment on above: Order Comment: 102-2 Performed By: #### L 500.2500, L100.0100 #### [facility] [address] [place], [address] Hemoglobin (Bld) [Mass/Vol] 11.1 g/dL Low 12.0-15.0 [facility] Comment on above: Order Comment: 102-2 Performed By: #### L 500.2500, L100.0100 #### [facility] [address] [place], [address] MCH (RBC) [Entitic mass] 28.9 pg Normal 27.0-32.0 [facility] Comment on above: Order Comment: 102-2 Performed By: #### L 500.2500, L100.0100 #### [facility] [address] [place], [address] MCHC (RBC) [Mass/Vol] 30.7 g/dL Low 32-36 [facility] Comment on above: Order Comment: 102-2 Performed By: #### L 500.2500, L100.0100 #### [facility] [address] [place], [address] MCV (RBC) [Entitic vol] 94.3 fL Normal 81-99 [facility] Comment on above: Order Comment: 102-2 Performed By: #### L 500.2500, L100.0100 #### [facility] [address] [place], [address] Platelet mean volume (Bld) [Entitic vol] 8.4 fL Normal 6.2-12.0 [facility] Comment on above: Order Comment: 102-2 Performed By: #### L 500.2500, L100.0100 #### [facility] [address] [place], [address] Platelets (Bld) [#/Vol] 177 10*3/uL Normal 150-450 [facility] Comment on above: Order Comment: 102-2 Performed By: #### L 500.2500, L100.0100 #### [facility] [address] [place], [address] RBC (Bld) [#/Vol] 3.84 10*6/uL Low 4.2-5.4 [facility] Comment on above: Order Comment: 102-2 Performed By: #### L 500.2500, L100.0100 #### [facility] [address] [place], [address] RDW SD 52.1 fl High 35.1-43.9 [facility] Comment on above: Order Comment: 102-2 Performed By: #### L 500.2500, L100.0100 #### [facility] [address] [place], [address] WBC (Bld) [#/Vol] 7.1 10*3/uL Normal 4.4-11.0 [facility] Comment on above: Order Comment: 102-2 Performed By: #### L 500.2500, L100.0100 #### [facility] [address] [place], [address] Carbon dioxide, total [Moles /volume] in Central venous bloodOrdered By: Balwinder Alves on 03-15-2025 CO2 [Moles/Vol] 30.1 mmol/L 21.0-32.0 [facility] Chloride assayOrdered By: Jen Alves on 03-15-2025 Chloride [Moles/Vol] 98 mmol/L 98-108 [facility] Erythrocyte distribution wid th ratioOrdered By: Balwinder Alves on 03-15-2025 Erythrocyte distribution width (RBC) [Ratio] 15.2 % High 11.6-14.6 [facility] Erythrocyte distribution wid th standard deviationOrdered By: Balwinder Alves on 03-15-2025 Erythrocyte distribution width (RBC) [Ratio] 52.1 fl High 35.1-43.9 [facility] Glomerular filtration rate ( GFR) estimation/1.73 sq m using serum, plasma, or whole bOrdered By: Balwinder Alves on 03-15-2025 GFR/1.73 sq M.predicted among non-blacks MDRD (S/P/Bld) [Vol rate/Area] 75 mL/min/{1.73_m2} >60 [facility] Comment on above: mL/min/1.73m2 CKD-EP I Creatinine Equation (2020) Hematocrit Auto (Bld) [Volum e fraction]Ordered By: Balwinder Alves on 03-15-2025 Hematocrit (Bld) [Volume fraction] 36.2 % Low 37-47 [facility] Hemoglobin measurementOrdere d By: Balwinder Alves on 03-15-2025 Hemoglobin (Bld) [Mass/Vol] 11.1 g/dL Low 12.0-15.0 [facility] MCV (mean corpuscular volume ) determinationOrdered By: Balwinder Alves on 03-15-2025 MCV (RBC) [Entitic vol] 94.3 fL 81-99 [facility] Mean corpuscular hemoglobin (MCH) determinationOrdered By: Balwinder Alves on 03-15-2025 MCH (RBC) [Entitic mass] 28.9 pg 27.0-32.0 [facility] Mean corpuscular hemoglobin concentration (MCHC) determinationOrdered By: Balwinder Alves on 03-15-2025 MCHC (RBC) [Mass/Vol] 30.7 g/dL Low 32-36 [facility] Mean platelet volume determi nationOrdered By: Balwinder Alves on 03-15-2025 Platelet mean volume (Bld) [Entitic vol] 8.4 fL 6.2-12.0 [facility] Platelet countOrdered By: Jen Alves on 03-15-2025 Platelets (Bld) [#/Vol] 177 10*3/uL 150-450 [facility] Potassium measurement (mass/ volume)Ordered By: Balwinder Alves on 03-15-2025 Potassium (Unsp spec) [Mass/Vol] 4.7 mmol/L 3.3-5.1 [facility] RBC Auto (Bld) [#/Vol]Ordere d By: Balwinder Alves on 03-15-2025 RBC (Bld) [#/Vol] 3.84 10*6/uL Low 4.2-5.4 [facility] Serum creatinine measurement (mass/volume)Ordered By: Balwinder Alves on 03-15-2025 Creatinine [Mass/Vol] 0.79 mg/dL 0.70-1.20 [facility] Serum glucose measurement (m ass/volume)Ordered By: Balwinder Alves on 03-15-2025 Glucose [Mass/Vol] 188 mg/dL High 70-99 [facility] Serum or plasma calcium jacqueline urement (mass/volume)Ordered By: Balwinder Alves on 03-15-2025 Calcium [Mass/Vol] 9.6 mg/dL 7.6-11.0 [facility] Serum or plasma urea nitroge n measurement (mass/volume)Ordered By: Balwinder Alves on 03-15-2025 Urea nitrogen [Mass/Vol] 11 mg/dL 4-19 [facility] Sodium levelOrdered By: Balwinder Alves on 03-15-2025 Sodium [Moles/Vol] 137 mmol/L 133-145 [facility] White blood cell (WBC) count Ordered By: Balwinder Alves on 03-15-2025 WBC (Bld) [#/Vol] 7.1 10*3/uL 4.4-11.0 [facility] Urine Cultureon 03-06-2025 [facility] #1 POSSIBLE E. COLI 0157. UNABLE TO CONFIRM, TESTING DISCONTINUED AT [facility]. Urine Culture Copy of report sent to Infection Control Printer [id number] 03/04/25 1000 ANDREA. Urine Culture RESULTS CALLED TO XAVIER Flowers 03/06/25 Marek2 Lorrie Patterson. REPORT READ BACK BY . Urine Culture Urine Culture ESBL Escherichia coli [place] Count 80,000-100,000 MARKER ESBL producing OrganismA MARKER [...] S Tobramycin Islt PREM <=1 S Normal [facility] Comment on above: Performed By: #### L 500.2500, L100.0100 #### [facility] [address] [place], [address] Bilirubin Test strip Ql (U)O rdered By: Balwinder Alves on 03-02-2025 Bilirubin Ql (U) Negative Negative [facility] Ketones Test strip Ql (U)Ord ered By: Balwinder Alves on 03-02-2025 Ketones Ql (U) Negative Negative [facility] Nitrite Test strip Ql (U)Ord ered By: Balwinder Alves on 03-02-2025 Nitrite Ql (U) Positive High Negative [facility] Protein Test strip Ql (U)Ord ered By: Balwinder Alves on 03-02-2025 Protein Ql (U) 30 mg/dl High Negative [facility] Urinalysis, Routine (Dipstic k)on 03-02-2025 BILIRUBIN URINE Negative Normal Negative [facility] Comment on above: Order Comment: 102-2 Performed By: #### L 500.2500, L100.0100 #### [facility] [address] [place], [address] Clarity (U) Sl. Cloudy Normal Clear [facility] Comment on above: Order Comment: 102-2 Performed By: #### L 500.2500, L100.0100 #### [facility] [address] [place], [address] Color (U) Yellow Normal Yellow [facility] Comment on above: Order Comment: 102-2 Performed By: #### L 500.2500, L100.0100 #### [facility] [address] [place], [address] GLUCOSE, UR Normal Normal Normal [facility] Comment on above: Order Comment: 102-2 Performed By: #### L 500.2500, L100.0100 #### [facility] [address] [place], [address] KETONE UR Negative Normal Negative [facility] Comment on above: Order Comment: 102-2 Performed By: #### L 500.2500, L100.0100 #### [facility] [address] [place], [address] LEUK ESTERASE 500 /ul Abnormal Negative [facility] Comment on above: Order Comment: 102-2 Performed By: #### L 500.2500, L100.0100 #### [facility] [address] [place], [address] Nitrite Ql (U) Positive Abnormal Negative [facility] Comment on above: Order Comment: 102-2 Performed By: #### L 500.2500, L100.0100 #### [facility] [address] [place], [address] OCCULT BLOOD-UR 50 /ul Abnormal Negative [facility] Comment on above: Order Comment: 102-2 Performed By: #### L 500.2500, L100.0100 #### [facility] [address] [place], [address] pH UR 6.0 Normal 5.0 - 8.0 [facility] Comment on above: Order Comment: 102-2 Performed By: #### L 500.2500, L100.0100 #### [facility] [address] [place], [address] PROT DIPSTX 30 mg/dl Abnormal Negative [facility] Comment on above: Order Comment: 102-2 Performed By: #### L 500.2500, L100.0100 #### [facility] [address] [place], [address] SP.GR. DIPSTX 1.010 Normal 1.002-1.030 [facility] Comment on above: Order Comment: 102-2 Performed By: #### L 500.2500, L100.0100 #### [facility] [address] [place], [address] UROBILI Normal Normal Normal [facility] Comment on above: Order Comment: 102-2 Performed By: #### L 500.2500, L100.0100 #### [facility] [address] [place], [address] Urine clarityOrdered By: Javed Alves on 03-02-2025 Clarity (U) Sl. Cloudy Clear [facility] Urine color determinationOrd ered By: Balwinder Alves on 03-02-2025 Color (U) Yellow Yellow [facility] Urine cultureOrdered By: Javed Alves on 03-02-2025 Bacteria identified Cx Nom (U) ESBL Escherichia coli Abnormal [facility] Urine glucose detectionOrder ed By: Balwinder Alves on 03-02-2025 Glucose Ql (U) Normal mg/dl Normal [facility] Urine leukocyte esterase det ection by dipstickOrdered By: Balwinder Alves on 03-02-2025 Leukocyte esterase Test strip Ql (U) 500 /ul High Negative [facility] Urine pHOrdered By: Balwinder blackman on 03-02-2025 pH (U) 6.0 [pH] 5.0 - 8.0 [facility] Urine specific gravity measu rementOrdered By: Balwinder Alves on 03-02-2025 Specific gravity (U) [Rel density] 1.010 1.002-1.030 [facility] Urine urobilinogen measureme ntOrdered By: Balwinder Alves on 03-02-2025 Urobilinogen Ql (U) Normal mg/dl Normal [facility] Urine Cultureon 02-10-2025 [facility] Copy of report sent to Infection Control Printer [id number] 02/09/25 Jamshid MENDEZ. Urine Culture RESULTS CALLED TO AUSTEN GARCIA 02/09/25 08Amari Barrera. REPORT READ BACK SAME. Urine Culture Urine Culture Urine Culture ESBL Escherichia coli [place] Count >100,000 MARKER ESBL producing OrganismA MARKER [...] S Tobramycin Islt PREM <=1 S Normal [facility] Comment on above: Performed By: #### M 100.2200, L400.2010 #### [facility] [address] [place], [address] Bilirubin Test strip Ql (U)O rdered By: Balwinder Alves on 02-07-2025 Bilirubin Ql (U) Negative Negative [facility] Ketones Test strip Ql (U)Ord ered By: Balwinder Alves on 02-07-2025 Ketones Ql (U) Negative Negative [facility] Nitrite Test strip Ql (U)Ord ered By: Balwinder Alves on 02-07-2025 Nitrite Ql (U) Positive High Negative [facility] Protein Test strip Ql (U)Ord ered By: Balwinder Alves on 02-07-2025 Protein Ql (U) 15 mg/dl High Negative [facility] Urinalysis, Routine (Dipstic k)on 02-07-2025 Clarity (U) Clear Normal Clear [facility] Comment on above: Order Comment: 102-2 Performed By: #### L 500.2500, L100.0100 #### [facility] [address] [place], [address] Color (U) Yellow Normal Yellow [facility] Comment on above: Order Comment: 102-2 Performed By: #### L 500.2500, L100.0100 #### [facility] [address] [place], [address] BILIRUBIN URINE Negative Normal Negative [facility] Comment on above: Order Comment: 102-2 Performed By: #### L 500.2500, L100.0100 #### [facility] [address] [place], [address] GLUCOSE, UR Normal Normal Normal [facility] Comment on above: Order Comment: 102-2 Performed By: #### L 500.2500, L100.0100 #### [facility] [address] [place], [address] KETONE UR Negative Normal Negative [facility] Comment on above: Order Comment: 102-2 Performed By: #### L 500.2500, L100.0100 #### [facility] [address] [place], [address] LEUK ESTERASE 500 /ul Abnormal Negative [facility] Comment on above: Order Comment: 102-2 Performed By: #### L 500.2500, L100.0100 #### [facility] [address] [place], [address] Nitrite Ql (U) Positive Abnormal Negative [facility] Comment on above: Order Comment: 102-2 Performed By: #### L 500.2500, L100.0100 #### [facility] [address] [place], [address] OCCULT BLOOD-UR 25 /ul Abnormal Negative [facility] Comment on above: Order Comment: 102-2 Performed By: #### L 500.2500, L100.0100 #### [facility] [address] [place], [address] pH UR 6.5 Normal 5.0 - 8.0 [facility] Comment on above: Order Comment: 102-2 Performed By: #### L 500.2500, L100.0100 #### [facility] [address] [place], [address] PROT DIPSTX 15 mg/dl Abnormal Negative [facility] Comment on above: Order Comment: 102-2 Performed By: #### L 500.2500, L100.0100 #### [facility] [address] [place], [address] SP.GR. DIPSTX 1.005 Normal 1.002-1.030 [facility] Comment on above: Order Comment: 102-2 Performed By: #### L 500.2500, L100.0100 #### [facility] [address] [place], [place], [address] UROBILI Normal Normal Normal [facility] Comment on above: Order Comment: 102-2 Performed By: #### L 500.2500, L100.0100 #### [facility] [address] [place], [address] Urine clarityOrdered By: Javed Alves on 02-07-2025 Clarity (U) Clear Clear [facility] Urine color determinationOrd ered By: Balwinder Alves on 02-07-2025 Color (U) Yellow Yellow [facility] Urine cultureOrdered By: Javed Alves on 02-07-2025 Bacteria identified Cx Nom (U) ESBL Escherichia coli Abnormal [facility] Urine glucose detectionOrder ed By: Balwinder Alves on 02-07-2025 Glucose Ql (U) Normal mg/dl Normal [facility] Urine leukocyte esterase det ection by dipstickOrdered By: Balwinder Alves on 02-07-2025 Leukocyte esterase Test strip Ql (U) 500 /ul High Negative [facility] Urine pHOrdered By: Balwinder blackman on 02-07-2025 pH (U) 6.5 [pH] 5.0 - 8.0 [facility] Urine specific gravity measu rementOrdered By: Balwinder Alves on 02-07-2025 Specific gravity (U) [Rel density] 1.005 1.002-1.030 [facility] Urine urobilinogen measureme ntOrdered By: Balwinder Alves on 02-07-2025 Urobilinogen Ql (U) Normal mg/dl Normal [facility] Urine Cultureon 01-27-2025 [facility] STRAIGHT CATH #1 Possible E.coli 0157. Confirmation testing unable to be performed, test discontinued at [facility]. Urine Culture RESULTS CALLED TO HEATHER Herrera 01/27/25 Nicole Patterson. REPORT READ BACK BY . Urine Culture Copy of report sent to Infection Control Printer [id number] 01/27/25 1041 ESSENCE. Urine Culture ESBL Escherichia coli [place] Count 80,000-100,000 MARKER ESBL producing OrganismA MARKER ESBL producing OrganismA [place] Count 50,000-80,000 Proteus mirabilis Amikacin Islt PREM [...] TMP SMX Islt PREM <=20 S Normal [facility] Comment on above: Performed By: #### L 400.0001, #### [facility] [address] [place], [place], [id number] Urinalysis, Completeon 01-24 BILIRUBIN URINE Negative Normal Negative [facility] Comment on above: Order Comment: STRAI GHT CATH CATHETER SPECIMEN Performed By: #### L 400.0001, #### [facility] [address] [place], [address] Clarity (U) Sl. Cloudy Normal Clear [facility] Comment on above: Order Comment: STRAI GHT CATH CATHETER SPECIMEN Performed By: #### L 400.0001, #### [facility] [address] [place], [address] Color (U) Yellow Normal Yellow [facility] Comment on above: Order Comment: STRAI GHT CATH CATHETER SPECIMEN Performed By: #### L 400.0001, .2199 #### [facility] [address] [place], [address] GLUCOSE, UR Normal Normal Normal [facility] Comment on above: Order Comment: STRAI GHT CATH CATHETER SPECIMEN Performed By: #### L 400.0001, #### [facility] [address] [place], [address] KETONE UR Negative Normal Negative [facility] Comment on above: Order Comment: STRAI GHT CATH CATHETER SPECIMEN Performed By: #### L 400.0001, #### [facility] [address] [place], [address] LEUK ESTERASE 500 /ul Abnormal Negative [facility] Comment on above: Order Comment: STRAI GHT CATH CATHETER SPECIMEN Performed By: #### L 400.0001, #### [facility] [address] [place], [address] Nitrite Ql (U) Positive Abnormal Negative [facility] Comment on above: Order Comment: STRAI GHT CATH CATHETER SPECIMEN Performed By: #### L 400.0001, #### [facility] [address] [place], [address] OCCULT BLOOD-UR 50 /ul Abnormal Negative [facility] Comment on above: Order Comment: STRAI GHT CATH CATHETER SPECIMEN Performed By: #### L 400.0001, #### [facility] [address] [place], [address] pH UR 6.5 Normal 5.0 - 8.0 [facility] Comment on above: Order Comment: STRAI GHT CATH CATHETER SPECIMEN Performed By: #### L 400.0001, #### [facility] [address] [place], [address] PROT DIPSTX 15 mg/dl Abnormal Negative [facility] Comment on above: Order Comment: STRAI GHT CATH CATHETER SPECIMEN Performed By: #### L 400.0001, M100.2200 #### [facility] [address] [place], [address] SP.GR. DIPSTX 1.010 Normal 1.002-1.030 [facility] Comment on above: Order Comment: STRAI GHT CATH CATHETER SPECIMEN Performed By: #### L 400.0001, M100.2200 #### [facility] [address] [place], [address] UROBILI Normal Normal Normal [facility] Comment on above: Order Comment: STRAI GHT CATH CATHETER SPECIMEN Performed By: #### L 400.0001, M100.2200 #### [facility] [address] [place], [address] Bilirubin Test strip Ql (U)O rdered By: Balwinder Alves on 01-23-2025 Bilirubin Ql (U) Negative Negative [facility] Epithelial cells.squamous LM Ql (Urine sed)Ordered By: Balwinder Alves on 01-23-2025 Epithelial cells.squamous LM.HPF (Urine sed) [#/Area] 0 /[HPF] 5-10 [facility] Glucose Ql (U)Ordered By: Jen Alves on 01-23-2025 Urine Glucose (UA) Normal mg/dl Normal [facility] Ketones Test strip Ql (U)Ord ered By: Balwinder Alves on 01-23-2025 Ketones Ql (U) Negative Negative [facility] Microscopic analysis of urin e for red blood cells (RBC)Ordered By: Balwinder Alves on 01-23-2025 Microscopic analysis of urine for red blood cells (RBC) 0-5 SEEN /hpf 0-5 [facility] Urine RBC 0-5 SEEN /hpf 0-5 [facility] Mucus LM Ql (Urine sed)Order ed By: Balwinder Alves on 01-23-2025 Mucus Ql (Urine sed) 0 SEEN /hpf [facility] Nitrite Test strip Ql (U)Ord ered By: Balwinder Alves on 01-23-2025 Nitrite Ql (U) Positive High Negative [facility] Protein Test strip Ql (U)Ord ered By: Balwinder Alves on 01-23-2025 Protein Ql (U) 15 mg/dl High Negative [facility] Squamous epithelial cells de tection in urine sediment by light microscopyOrdered By: Balwinder Alves on 01-23-2025 Epithelial cells.squamous LM Ql (Urine sed) 0-5 SEEN /hpf 5-10 [facility] Urine blood detectionOrdered By: Balwinder Alves on 01-23-2025 Urine Occult Blood 50 /ul High Negative [facility] Urine clarityOrdered By: Javed Alves on 01-23-2025 Clarity (U) Sl. Cloudy Clear [facility] Urine color determinationOrd ered By: Balwinder Alves on 01-23-2025 Color (U) Yellow Yellow [facility] Urine cultureOrdered By: Javed Alves on 01-23-2025 Bacteria identified Cx Nom (U) ESBL Escherichia coli Abnormal [facility] Bacteria identified Cx Nom (U) Proteus mirabilis Abnormal [facility] Urine glucose detectionOrder ed By: Balwinder Alves on 01-23-2025 Glucose Ql (U) Normal mg/dl Normal [facility] Urine leukocyte esterase det ection by dipstickOrdered By: Balwinder Alves on 01-23-2025 Leukocyte esterase Test strip Ql (U) 500 /ul High Negative [facility] Urine pHOrdered By: Balwinder blackman on 01-23-2025 pH (U) 6.5 [pH] 5.0 - 8.0 [facility] Urine sediment bacteria coun t by microscopy (number/high power field)Ordered By: Balwinder Alves on 01-23-2025 Bacteria LM.HPF (Urine sed) [#/Area] 2 /[HPF] None Seen [facility] Urine specific gravity measu rementOrdered By: Balwinder Alves on 01-23-2025 Specific gravity (U) [Rel density] 1.010 1.002-1.030 [facility] Urine urobilinogen measureme ntOrdered By: Balwinder Alves on 01-23-2025 Urobilinogen Ql (U) Normal mg/dl Normal [facility] Urobilinogen Ql (U)Ordered B y: Balwinder Alves on 01-23-2025 Urine Urobilinogen Normal mg/dl Normal [facility] White blood cell countOrdere d By: Balwinder Alves on 01-23-2025 Urine WBC 5-10 SEEN /hpf 0-5 [facility] White blood cell count 5-10 SEEN /hpf 0-5 [facility] Urine Cultureon 01-13-2025 URC #1 POSSIBLE ECOLI 0157. Unable to send to [facility] for confirmation testing due to new [facility] policies regarding serotyping and virulence profiling. Urine Culture Copy of report sent to Infection Control Printer [id number] 01/11/25 3322 ASNIPES. ESBL Escherichia coli [place] Count 50,000-80,000 MARKER ESBL producing OrganismA MARKER ESBL producing OrganismA [place] Count 50,000-80,000 Escherichia coli [place] Count 50,000-80,000 ESBL Escherichia coli: REACTION Proteus [...] TMP SMX Islt PREM <=20 S Normal [facility] Comment on above: Performed By: #### L 400.2010, M100.2200 #### [facility] [address] [place], [place], [phone] Bilirubin Test strip Ql (U)O rdered By: Balwinder Alves on 01-09-2025 Bilirubin Ql (U) Negative Negative [facility] Glucose Ql (U)Ordered By: Jen Alves on 01-09-2025 Urine Glucose (UA) Normal mg/dl Normal [facility] Ketones Test strip Ql (U)Ord ered By: Balwinder Alves on 01-09-2025 Ketones Ql (U) Negative Negative [facility] Nitrite Test strip Ql (U)Ord ered By: Balwinder Alves on 01-09-2025 Nitrite Ql (U) Positive High Negative [facility] Protein Test strip Ql (U)Ord ered By: Balwinder Alves on 01-09-2025 Protein Ql (U) 30 mg/dl High Negative [facility] Urinalysis, Routine (Dipstic k)on 01-09-2025 BILIRUBIN URINE Negative Normal Negative [facility] Comment on above: Order Comment: ALFA TER SPECIMEN Performed By: #### L 400.2010, #### [facility] [address] [place], [address] Clarity (U) Cloudy Normal Clear [facility] Comment on above: Order Comment: ALFA TER SPECIMEN Performed By: #### L 400.2010, #### [facility] [address] [place], [address] Color (U) Yellow Normal Yellow [facility] Comment on above: Order Comment: ALFA TER SPECIMEN Performed By: #### L 400.2010, #### [facility] [address] [place], [address] GLUCOSE, UR Normal Normal Normal [facility] Comment on above: Order Comment: ALFA TER SPECIMEN Performed By: #### L 400.2010, #### [facility] [address] [place], [address] KETONE UR Negative Normal Negative [facility] Comment on above: Order Comment: ALFA TER SPECIMEN Performed By: #### L 400.2011, #### [facility] [address] [place], [address] LEUK ESTERASE 500 /ul Abnormal Negative [facility] Comment on above: Order Comment: ALFA TER SPECIMEN Performed By: #### L 400.2010, #### [facility] [address] [place], [address] Nitrite Ql (U) Positive Abnormal Negative [facility] Comment on above: Order Comment: ALFA TER SPECIMEN Performed By: #### L 400.2010, #### [facility] [address] [place], [address] OCCULT BLOOD-UR 150 /ul Abnormal Negative [facility] Comment on above: Order Comment: ALFA TER SPECIMEN Performed By: #### L 400.2010, #### [facility] [address] [place], [address] pH UR 6.5 Normal 5.0 - 8.0 [facility] Comment on above: Order Comment: ALFA TER SPECIMEN Performed By: #### L 400.2010, #### [facility] [address] [place], [address] PROT DIPSTX 30 mg/dl Abnormal Negative [facility] Comment on above: Order Comment: ALFA TER SPECIMEN Performed By: #### L 400.2010, #### [facility] [address] [place], [address] SP.GR. DIPSTX 1.010 Normal 1.002-1.030 [facility] Comment on above: Order Comment: ALFA TER SPECIMEN Performed By: #### L 400.2010, #### [facility] [address] [place], [address] UROBILI Normal Normal Normal [facility] Comment on above: Order Comment: ALFA TER SPECIMEN Performed By: #### L 400.2010, M100.2200 #### [facility] [place], [address] Urine blood detectionOrdered By: Balwinder Alves on 01-09-2025 Urine Occult Blood 150 /ul High Negative [facility] Urine clarityOrdered By: Javed Alves on 01-09-2025 Clarity (U) Cloudy Clear [facility] Urine color determinationOrd ered By: Balwinder Alves on 01-09-2025 Color (U) Yellow Yellow [facility] Urine cultureOrdered By: Javed Alves on 01-09-2025 Bacteria identified Cx Nom (U) ESBL Escherichia coli Abnormal [facility] Bacteria identified Cx Nom (U) Escherichia coli Abnormal [facility] Bacteria identified Cx Nom (U) Proteus mirabilis Abnormal [facility] Urine glucose detectionOrder ed By: Balwinder Alves on 01-09-2025 Glucose Ql (U) Normal mg/dl Normal [facility] Urine leukocyte esterase det ection by dipstickOrdered By: Balwinder Alves on 01-09-2025 Leukocyte esterase Test strip Ql (U) 500 /ul High Negative [facility] Urine pHOrdered By: Balwinder blackman on 01-09-2025 pH (U) 6.5 [pH] 5.0 - 8.0 [facility] Urine specific gravity measu rementOrdered By: Balwinder Alves on 01-09-2025 Specific gravity (U) [Rel density] 1.010 1.002-1.030 [facility] Urine urobilinogen measureme ntOrdered By: Balwinder Alves on 01-09-2025 Urobilinogen Ql (U) Normal mg/dl Normal [facility] Urobilinogen Ql (U)Ordered B y: Balwinder Alves on 01-09-2025 Urine Urobilinogen Normal mg/dl Normal [facility] Urine Cultureon 01-07-2025 URC #2 Possible E.coli 0157. Unable to send to [facility] for confirmation testing due to new [facility] policies regarding serotyping and virulence profiling. Urine Culture Copy of report sent to Infection Control Printer [id number] 01/06/25 1319 ANDREA. Urine Culture RESULTS CALLED TO TRISH BOYCE 01/06/25 1321 Alesia Barrera. REPORT READ BACK . Proteus mirabilis [place] Count 50,000-80,000 ESBL Escherichia coli ESBL Escherichia [...] <=0.25 Tobramycin Islt PREM <=1 S Normal [facility] Comment on above: Performed By: #### L 400.2199, #### [facility] [address] [place], [place], [id number] Urinalysis, Routine (Dipstic k)on 01-03-2025 BILIRUBIN URINE Negative Normal Negative [facility] Comment on above: Order Comment: CLEAN CATCH Performed By: #### L 400.0001, #### [facility] [address] [facility] [place], [place], [id number] Clarity (U) Sl. Cloudy Normal Clear [facility] Comment on above: Order Comment: CLEAN CATCH Performed By: #### L 400.0001, #### [facility] [address] [place], [address] Color (U) Yellow Normal Yellow [facility] Comment on above: Order Comment: CLEAN CATCH Performed By: #### L 400.0001, M1.0 #### [facility] [address] [place], [address] GLUCOSE, UR Normal Normal Normal [facility] Comment on above: Order Comment: CLEAN CATCH Performed By: #### L 400.0001, .2199 #### [facility] [address] [place], [address] KETONE UR Negative Normal Negative [facility] Comment on above: Order Comment: CLEAN CATCH Performed By: #### L 400.0001, .0 #### [facility] [address] [place], [address] LEUK ESTERASE 500 /ul Abnormal Negative [facility] Comment on above: Order Comment: CLEAN CATCH Performed By: #### L 400.0001, .2199 #### [facility] [address] [place], [address] Nitrite Ql (U) Positive Abnormal Negative [facility] Comment on above: Order Comment: CLEAN CATCH Performed By: #### L 400.0001, M100.0 #### [facility] [address] [place], [address] OCCULT BLOOD-UR 150 /ul Abnormal Negative [facility] Comment on above: Order Comment: CLEAN CATCH Performed By: #### L 400.0001, M1.0 #### [facility] [address] [place], [address] pH UR 6.5 Normal 5.0 - 8.0 [facility] Comment on above: Order Comment: CLEAN CATCH Performed By: #### L 400.0001, M100.2200 #### [facility] [address] [place], [address] PROT DIPSTX 30 mg/dl Abnormal Negative [facility] Comment on above: Order Comment: CLEAN CATCH Performed By: #### L 400.0001, M100.2200 #### [facility] [address] [place], [address] SP.GR. DIPSTX 1.010 Normal 1.002-1.030 [facility] Comment on above: Order Comment: CLEAN CATCH Performed By: #### L 400.0001, M100.2200 #### [facility] [address] [place], [address] UROBILI Normal Normal Normal [facility] Comment on above: Order Comment: CLEAN CATCH Performed By: #### L 400.0001, M100.2200 #### [facility] [address] [place], [address] Bilirubin Test strip Ql (U)O rdered By: Balwinder Alves on 01-02-2025 Bilirubin Ql (U) Negative Negative [facility] Glucose Ql (U)Ordered By: Jen Alves on 01-02-2025 Urine Glucose (UA) Normal mg/dl Normal [facility] Ketones Test strip Ql (U)Ord ered By: Balwinder Alves on 01-02-2025 Ketones Ql (U) Negative Negative [facility] Nitrite Test strip Ql (U)Ord ered By: Balwinder Alves on 01-02-2025 Nitrite Ql (U) Positive High Negative [facility] Protein Test strip Ql (U)Ord ered By: Balwinder Alves on 01-02-2025 Protein Ql (U) 30 mg/dl High Negative [facility] Urine blood detectionOrdered By: Balwinder Alves on 01-02-2025 Urine Occult Blood 150 /ul High Negative [facility] Urine clarityOrdered By: Javed Alves on 01-02-2025 Clarity (U) Sl. Cloudy Clear [facility] Urine color determinationOrd ered By: Balwinder Alves on 01-02-2025 Color (U) Yellow Yellow [facility] Urine cultureOrdered By: Javed Alves on 01-02-2025 Bacteria identified Cx Nom (U) Proteus mirabilis Abnormal [facility] Bacteria identified Cx Nom (U) ESBL Escherichia coli Abnormal [facility] Urine glucose detectionOrder ed By: Balwinder Alves on 01-02-2025 Glucose Ql (U) Normal mg/dl Normal [facility] Urine leukocyte esterase det ection by dipstickOrdered By: Balwinder Alves on 01-02-2025 Leukocyte esterase Test strip Ql (U) 500 /ul High Negative [facility] Urine pHOrdered By: Balwinder blackman on 01-02-2025 pH (U) 6.5 [pH] 5.0 - 8.0 [facility] Urine specific gravity measu rementOrdered By: Balwinder Alves on 01-02-2025 Specific gravity (U) [Rel density] 1.010 1.002-1.030 [facility] Urine urobilinogen measureme ntOrdered By: Balwinder Alves on 01-02-2025 Urobilinogen Ql (U) Normal mg/dl Normal [facility] Urobilinogen Ql (U)Ordered B y: Balwinder Alves on 01-02-2025 Urine Urobilinogen Normal mg/dl Normal [facility] Absolute lymphocyte countOrd ered By: Balwinder Alves on 12-26-2024 Lymphocytes Auto (Unsp spec) [#/Vol] 1.77 10*3/uL 0.83-4.51 [facility] Absolute neutrophil countOrd ered By: Balwinder Alves on 12-26-2024 Neutrophils (Bld) [#/Vol] 4.6 10*3/uL 2.0-7.7 [facility] Anion gap in Serum or Plasma Ordered By: Balwinder Alves on 12-26-2024 Anion gap [Moles/Vol] 9 mmol/L 5- [facility] Automated lymphocyte count a s percentage of total leukocytesOrdered By: Balwinder Alves on 12-26-2024 Lymphocytes/100 WBC Auto (Unsp spec) 24.8 % - [facility] BUN/creatinine ratioOrdered By: Balwinder Alves on 12-26-2024 Urea nitrogen/Creatinine [Mass ratio] 12.2 mg/mg 10- [facility] Basic Metabolic Profile (BMP )on 12-26-2024 BUN/CRE 12.2 RATIO Normal - [facility] Comment on above: Order Comment: 102-2 Performed By: #### L 500.2500, L100.0100 #### [facility] [address] [place], [address] Calcium [Mass/Vol] 9.1 mg/dL Normal 7.6-11.0 [facility] Comment on above: Order Comment: 102-2 Performed By: #### L 500.2500, L100.0100 #### [facility] [address] [place], [address] Chloride [Moles/Vol] 99 mmol/L Normal 98-108 [facility] Comment on above: Order Comment: 102-2 Performed By: #### L 500.2500, L100.0100 #### [facility] [address] [place], [address] CO2 [Moles/Vol] 29.0 mmol/L Normal 21.0-32.0 [facility] Comment on above: Order Comment: 102-2 Performed By: #### L 500.2500, L100.0100 #### [facility] [address] [place], [address] Creatinine [Mass/Vol] 0.67 mg/dL Low 0.70-1.20 [facility] Comment on above: Order Comment: 102-2 Performed By: #### L 500.2500, L100.0100 #### [facility] [address] [place], [address] GAP 9 Normal 5-15 [facility] Comment on above: Order Comment: 102-2 Performed By: #### L 500.2500, L100.0100 #### [facility] [address] [place], [address] GFR/1.73 sq M.predicted among non-blacks MDRD (S/P/Bld) [Vol rate/Area] 88 mL/min/{1.73_m2} Normal >60 [facility] Comment on above: Order Comment: 102-2 Result Comment: mL/m in/1.73m2 CKD-EPI Creatinine Equation (2020) Performed By: #### L 500.2500, L100.0100 #### [facility] [address] [place], [address] Glucose [Mass/Vol] 215 mg/dL High 70-99 [facility] Comment on above: Order Comment: 102-2 Performed By: #### L 500.2500, L100.0100 #### [facility] [address] [place], [address] Potassium [Moles/Vol] 4.6 mmol/L Normal 3.3-5.1 [facility] Comment on above: Order Comment: 102-2 Performed By: #### L 500.2500, L100.0100 #### [facility] [address] [place], [address] Sodium [Moles/Vol] 137 mmol/L Normal 133-145 [facility] Comment on above: Order Comment: 102-2 Performed By: #### L 500.2500, L100.0100 #### [facility] [address] [place], [address] Urea nitrogen [Mass/Vol] 8 mg/dL Normal 4-19 [facility] Comment on above: Order Comment: 102-2 Performed By: #### L 500.2500, L100.0100 #### [facility] [address] [place], [address] Basophil percentageOrdered B y: Balwinder Alves on 12-26-2024 Basophils/100 WBC (Bld) 0.6 % 0-1 [facility] CBC W/Diff, Automatedon 12-04 Absolute Lymph 1.77 X10 3/uL Normal 0.83-4.51 [facility] Comment on above: Order Comment: 102-2 Performed By: #### L 500.2500, L100.0100 #### [facility] [address] [place], [address] Absolute Neut 4.6 X10 3/uL Normal 2.0-7.7 [facility] Comment on above: Order Comment: 102-2 Performed By: #### L 500.2500, L100.0100 #### [facility] [address] [place], [address] Basophils/100 WBC (Bld) 0.6 % Normal 0-1 [facility] Comment on above: Order Comment: 102-2 Performed By: #### L 500.2500, L100.0100 #### [facility] [address] [place], [address] Eosinophils/100 WBC (Bld) 2.9 % Normal 0-5 [facility] Comment on above: Order Comment: 102-2 Performed By: #### L 500.2500, L100.0100 #### [facility] [address] [place], [address] Erythrocyte distribution width (RBC) [Ratio] 13.9 % Normal 11.6-14.6 [facility] Comment on above: Order Comment: 102-2 Performed By: #### L 500.2500, L100.0100 #### [facility] [address] [place], [address] Hematocrit (Bld) [Volume fraction] 35.6 % Low 37-47 [facility] Comment on above: Order Comment: 102-2 Performed By: #### L 500.2500, L100.0100 #### [facility] [address] [place], [address] Hemoglobin (Bld) [Mass/Vol] 10.9 g/dL Low 12.0-15.0 [facility] Comment on above: Order Comment: 102-2 Performed By: #### L 500.2500, L100.0100 #### [facility] [address] [place], [address] IG% 0.700 Normal 0.0-0.9 [facility] Comment on above: Order Comment: 102-2 Result Comment: IG% - Immature Granulocytes (promyelocytes, myelocytes and metamyelocytes) > 1% indicates that a LEFT SHIFT is Present. Performed By: #### L 500.2500, L100.0100 #### [facility] [address] [place], [address] Lymphocytes/100 WBC (Bld) 24.8 % Normal 19-41 [facility] Comment on above: Order Comment: 102-2 Performed By: #### L 500.2500, L100.0100 #### [facility] [address] [place], [address] MCH (RBC) [Entitic mass] 28.8 pg Normal 27.0-32.0 [facility] Comment on above: Order Comment: 102-2 Performed By: #### L 500.2500, L100.0100 #### [facility] [address] [place], [address] MCHC (RBC) [Mass/Vol] 30.6 g/dL Low 32-36 [facility] Comment on above: Order Comment: 102-2 Performed By: #### L 500.2500, L100.0100 #### [facility] [address] [place], [address] MCV (RBC) [Entitic vol] 93.9 fL Normal 81-99 [facility] Comment on above: Order Comment: 102-2 Performed By: #### L 500.2500, L100.0100 #### [facility] [address] [place], [address] Monocytes/100 WBC (Bld) 6.3 % Normal 0-10 [facility] Comment on above: Order Comment: 102-2 Performed By: #### L 500.2500, L100.0100 #### [facility] [address] [place], [address] Neutrophils/100 WBC (Bld) 64.7 % Normal 47-70 [facility] Comment on above: Order Comment: 102-2 Performed By: #### L 500.2500, L100.0100 #### [facility] [address] [place], [address] Nucleated RBC (Bld) [#/Vol] 0 10*3/uL Normal 0-5 [facility] Comment on above: Order Comment: 102-2 Performed By: #### L 500.2500, L100.0100 #### [facility] [address] [place], [address] Platelet mean volume (Bld) [Entitic vol] 8.6 fL Normal 6.2-12.0 [facility] Comment on above: Order Comment: 102-2 Performed By: #### L 500.2500, L100.0100 #### [facility] [address] [place], [address] Platelets (Bld) [#/Vol] 221 10*3/uL Normal 150-450 [facility] Comment on above: Order Comment: 102-2 Performed By: #### L 500.2500, L100.0100 #### [facility] [address] [place], [address] RBC (Bld) [#/Vol] 3.79 10*6/uL Low 4.2-5.4 [facility] Comment on above: Order Comment: 102-2 Performed By: #### L 500.2500, L100.0100 #### [facility] [address] [place], [address] RDW SD 47.6 fl High 35.1-43.9 [facility] Comment on above: Order Comment: 102-2 Performed By: #### L 500.2500, L100.0100 #### [facility] [address] [place], [address] WBC (Bld) [#/Vol] 7.1 10*3/uL Normal 4.4-11.0 [facility] Comment on above: Order Comment: 102-2 Performed By: #### L 500.2500, L100.0100 #### [facility] [address] [place], [place], [id number] Carbon dioxide, total [Moles /volume] in Central venous bloodOrdered By: Balwinder Alves on 12-26-2024 CO2 [Moles/Vol] 29.0 mmol/L 21.0-32.0 [facility] Chloride assayOrdered By: Jen Alves on 12-26-2024 Chloride [Moles/Vol] 99 mmol/L 98-108 [facility] Eosinophil percentageOrdered By: Balwinder Alves on 12-26-2024 Eosinophils/100 WBC (Bld) 2.9 % 0-5 [facility] Erythrocyte distribution wid th (RBC) [Ratio]Ordered By: Balwinder Alves on 12-26-2024 Erythrocyte distribution width (RBC) [Entitic vol] 47.6 fL High 35.1-43.9 [facility] Erythrocyte distribution wid th ratioOrdered By: Balwinder Alves on 12-26-2024 Erythrocyte distribution width (RBC) [Ratio] 13.9 % 11.6-14.6 [facility] Erythrocyte distribution wid th standard deviationOrdered By: Balwinder Alves on 12-26-2024 Erythrocyte distribution width (RBC) [Ratio] 47.6 fl High 35.1-43.9 [facility] GFR/1.73 sq M.predicted philipp g non-blacks MDRD (S/P/Bld) [Vol rate/Area]Ordered By: Balwinder Alves on 12-26-2024 Estimated GFR (MDRD) Non-Af Amer 88 >60 [facility] Comment on above: mL/min/1.73m2 CKD-EP I Creatinine Equation (2020) Glomerular filtration rate ( GFR) estimation/1.73 sq m using serum, plasma, or whole bOrdered By: Balwinder Alves on 12-26-2024 GFR/1.73 sq M.predicted among non-blacks MDRD (S/P/Bld) [Vol rate/Area] 88 mL/min/{1.73_m2} >60 [facility] Comment on above: mL/min/1.73m2 CKD-EP I Creatinine Equation (2020) Hematocrit Auto (Bld) [Volum e fraction]Ordered By: Balwinder Alves on 12-26-2024 Hematocrit (Bld) [Volume fraction] 35.6 % Low 37-47 [facility] Hemoglobin measurementOrdere d By: Balwinder Alves on 12-26-2024 Hemoglobin (Bld) [Mass/Vol] 10.9 g/dL Low 12.0-15.0 [facility] Immature granulocytes/100 WB C Auto (Bld)Ordered By: Balwinder Alves on 12-26-2024 Immature granulocytes/100 WBC (Bld) 0.700 % 0.0-0.9 [facility] Comment on above: IG% - Immature Granu locytes (promyelocytes, myelocytes and metamyelocytes) > 1% indicates that a LEFT SHIFT is Present. Lymphocytes Auto (Unsp spec) [#/Vol]Ordered By: Balwinder Alves on 12-26-2024 Lymphocytes (Bld) [#/Vol] 1.77 10*3/uL 0.83-4.51 [facility] Lymphocytes/100 WBC Auto (Un sp spec)Ordered By: Balwinder Alves on 12-26-2024 Lymphocytes/100 WBC (Bld) 24.8 % 19-41 [facility] MCV (mean corpuscular volume ) determinationOrdered By: Balwinder Alves on 12-26-2024 MCV (RBC) [Entitic vol] 93.9 fL 81-99 [facility] Mean corpuscular hemoglobin (MCH) determinationOrdered By: Balwinder Alves on 12-26-2024 MCH (RBC) [Entitic mass] 28.8 pg 27.0-32.0 [facility] Mean corpuscular hemoglobin concentration (MCHC) determinationOrdered By: Balwinder Alves on 12-26-2024 MCHC (RBC) [Mass/Vol] 30.6 g/dL Low 32-36 [facility] Mean platelet volume determi nationOrdered By: Balwinder Alves on 12-26-2024 Platelet mean volume (Bld) [Entitic vol] 8.6 fL 6.2-12.0 [facility] Monocyte percentageOrdered B y: Balwinder Alves on 12-26-2024 Monocytes/100 WBC (Bld) 6.3 % 0-10 [facility] Neutrophil percentageOrdered By: Balwinder Alves on 12-26-2024 Neutrophils/100 WBC (Bld) 64.7 % 47-70 [facility] Nucleated red blood cell per centageOrdered By: Balwinder Alves on 12-26-2024 Nucleated RBC/100 WBC (Bld) [Ratio] 0 % 0-5 [facility] Platelet countOrdered By: Jen Alves on 12-26-2024 Platelets (Bld) [#/Vol] 221 10*3/uL 150-450 [facility] Potassium (Unsp spec) [Mass/ Vol]Ordered By: Balwinder Alves on 12-26-2024 Potassium [Moles/Vol] 4.6 mmol/L 3.3-5.1 [facility] Potassium measurement (mass/ volume)Ordered By: Balwinder Alves on 12-26-2024 Potassium (Unsp spec) [Mass/Vol] 4.6 mmol/L 3.3-5.1 [facility] RBC Auto (Bld) [#/Vol]Ordere d By: Balwinder Alves on 12-26-2024 RBC (Bld) [#/Vol] 3.79 10*6/uL Low 4.2-5.4 [facility] Serum creatinine measurement (mass/volume)Ordered By: Balwinder Alves on 12-26-2024 Creatinine [Mass/Vol] 0.67 mg/dL Low 0.70-1.20 [facility] Serum glucose measurement (m ass/volume)Ordered By: Balwinder Alves on 12-26-2024 Glucose [Mass/Vol] 215 mg/dL High 70-99 [facility] Serum or plasma calcium jacqueline urement (mass/volume)Ordered By: Balwinder Alves on 12-26-2024 Calcium [Mass/Vol] 9.1 mg/dL 7.6-11.0 [facility] Serum or plasma urea nitroge n measurement (mass/volume)Ordered By: Balwinder Alves on 12-26-2024 Urea nitrogen [Mass/Vol] 8 mg/dL 4-19 [facility] Sodium levelOrdered By: Balwinder Alves on 12-26-2024 Sodium [Moles/Vol] 137 mmol/L 133-145 [facility] White blood cell (WBC) count Ordered By: Balwinder Alves on 12-26-2024 WBC (Bld) [#/Vol] 7.1 10*3/uL 4.4-11.0 [facility] Anion gap in Serum or Plasma Ordered By: Balwinder Alves on 12-16-2024 Anion gap [Moles/Vol] 12 mmol/L 02-16 [facility] BUN/creatinine ratioOrdered By: Balwinder Alves on 12-16-2024 Urea nitrogen/Creatinine [Mass ratio] 12.7 mg/mg - [facility] Basic Metabolic Profile (BMP )on 12-16-2024 BUN/CRE 12.7 RATIO Normal 07-24 [facility] Comment on above: Performed By: #### L 400.0001, #### [facility] [address] [place], [address] Calcium [Mass/Vol] 9.5 mg/dL Normal 7.6-11.0 [facility] Comment on above: Performed By: #### L 400.0001, #### [facility] [address] [place], [address] Chloride [Moles/Vol] 98 mmol/L Normal 98-108 [facility] Comment on above: Performed By: #### L 400.0001, #### [facility] [address] [place], [address] CO2 [Moles/Vol] 26.7 mmol/L Normal 21.0-32.0 [facility] Comment on above: Performed By: #### L 400.0001, #### [facility] [address] [place], [address] Creatinine [Mass/Vol] 0.67 mg/dL Low 0.70-1.20 [facility] Comment on above: Performed By: #### L 400.0001, #### [facility] [address] [place], [address] GAP 12 Normal 5-15 [facility] Comment on above: Performed By: #### L 400.0001, #### [facility] [address] [place], [address] GFR/1.73 sq M.predicted among non-blacks MDRD (S/P/Bld) [Vol rate/Area] 88 mL/min/{1.73_m2} Normal >60 [facility] Comment on above: Result Comment: mL/m in/1.73m2 CKD-EPI Creatinine Equation (2020) Performed By: #### L 400.0001, #### [facility] [address] [place], [address] Glucose [Mass/Vol] 201 mg/dL High 70-99 [facility] Comment on above: Performed By: #### L 400.0001, #### [facility] [address] [place], [address] Potassium [Moles/Vol] 4.6 mmol/L Normal 3.3-5.1 [facility] Comment on above: Performed By: #### L 400.0001, #### [facility] [address] [place], [address] Sodium [Moles/Vol] 137 mmol/L Normal 133-145 [facility] Comment on above: Performed By: #### L 400.0001, #### [facility] [address] [place], [address] Urea nitrogen [Mass/Vol] 8 mg/dL Normal 4-19 [facility] Comment on above: Performed By: #### L 400.0001, #### [facility] [address] [place], [address] CBC-Complete Blood Cnt No Di ffon 12-16-2024 Erythrocyte distribution width (RBC) [Ratio] 13.8 % Normal 11.6-14.6 [facility] Comment on above: Performed By: #### L 400.0001, #### [facility] [address] [place], [address] Hematocrit (Bld) [Volume fraction] 36.2 % Low 37-47 [facility] Comment on above: Performed By: #### L 400.0001, #### [facility] [address] [place], [address] Hemoglobin (Bld) [Mass/Vol] 11.0 g/dL Low 12.0-15.0 [facility] Comment on above: Performed By: #### L 400.0001, #### [facility] [address] [place], [address] MCH (RBC) [Entitic mass] 28.2 pg Normal 27.0-32.0 [facility] Comment on above: Performed By: #### L 400.0001, #### [facility] [address] [place], [address] MCHC (RBC) [Mass/Vol] 30.4 g/dL Low 32-36 [facility] Comment on above: Performed By: #### L 400.0001, #### [facility] [address] [place], [address] MCV (RBC) [Entitic vol] 92.8 fL Normal 81-99 [facility] Comment on above: Performed By: #### L 400.0001, #### [facility] [address] [place], [address] Platelet mean volume (Bld) [Entitic vol] 8.4 fL Normal 6.2-12.0 [facility] Comment on above: Performed By: #### L 400.0001, #### [facility] [address] [place], [address] Platelets (Bld) [#/Vol] 231 10*3/uL Normal 150-450 [facility] Comment on above: Performed By: #### L 400.0001, #### [facility] [address] [place], [address] RBC (Bld) [#/Vol] 3.90 10*6/uL Low 4.2-5.4 [facility] Comment on above: Performed By: #### L 400.0001, #### [facility] [address] [place], [address] RDW SD 47.0 fl High 35.1-43.9 [facility] Comment on above: Performed By: #### L 400.0001, #### [facility] [address] [place], [address] WBC (Bld) [#/Vol] 7.8 10*3/uL Normal 4.4-11.0 [facility] Comment on above: Performed By: #### L 400.0001, #### [facility] [address] [place], [address] Calculated very low density lipoprotein (VLDL) cholesterol measurementOrdered By: Balwinder Alves on 12-16-2024 Calculated very low density lipoprotein (VLDL) cholesterol measurement 32 mg/dL 5-40 [facility] VLDL Cholesterol 32 mg/dL 5-40 [facility] Carbon dioxide, total [Moles /volume] in Central venous bloodOrdered By: Balwinder Alves on 12-16-2024 CO2 [Moles/Vol] 26.7 mmol/L 21.0-32.0 [facility] Chloride assayOrdered By: Jen Alves on 12-16-2024 Chloride [Moles/Vol] 98 mmol/L 98-108 [facility] Erythrocyte distribution wid th (RBC) [Ratio]Ordered By: Balwinder Alves on 12-16-2024 Erythrocyte distribution width (RBC) [Entitic vol] 47.0 fL High 35.1-43.9 [facility] Erythrocyte distribution wid th ratioOrdered By: Balwinder Alves on 12-16-2024 Erythrocyte distribution width (RBC) [Ratio] 13.8 % 11.6-14.6 [facility] Erythrocyte distribution wid th standard deviationOrdered By: Balwinder Alves on 12-16-2024 Erythrocyte distribution width (RBC) [Ratio] 47.0 fl High 35.1-43.9 [facility] GFR/1.73 sq M.predicted philipp g non-blacks MDRD (S/P/Bld) [Vol rate/Area]Ordered By: Balwinder Alves on 12-16-2024 Estimated GFR (MDRD) Non-Af Amer 88 >60 [facility] Comment on above: mL/min/1.73m2 CKD-EP I Creatinine Equation (2020) Glomerular filtration rate ( GFR) estimation/1.73 sq m using serum, plasma, or whole bOrdered By: Balwinder Alves on 12-16-2024 GFR/1.73 sq M.predicted among non-blacks MDRD (S/P/Bld) [Vol rate/Area] 88 mL/min/{1.73_m2} >60 [facility] Comment on above: mL/min/1.73m2 CKD-EP I Creatinine Equation (2020) Hematocrit Auto (Bld) [Volum e fraction]Ordered By: Balwinder Alves on 12-16-2024 Hematocrit (Bld) [Volume fraction] 36.2 % Low 37-47 [facility] Hemoglobin A1con 12-16-2024 HbA1c (Bld) [Mass fraction] 8.4 % Normal <=5.6 [facility] Comment on above: Performed By: #### L 400.0001, M100.2200 #### [facility] [place], [address] Hemoglobin A1c percentageOrd ered By: Balwinder Alves on 12-16-2024 HbA1c (Bld) [Mass fraction] 8.4 % >5.7 [facility] Hemoglobin measurementOrdere d By: Balwinder Alves on 12-16-2024 Hemoglobin (Bld) [Mass/Vol] 11.0 g/dL Low 12.0-15.0 [facility] L506.1001on 12-16-2024 Vitamin D 25-OH 31.6 ng/mL Normal 30-100 [facility] Comment on above: Result Comment: Feli min D Status Deficiency: <20 ng/mL (50nmol/L) Insufficiency: 20-30 ng/mL (50-75 nmol/L) Sufficiency: 30-100 ng/mL (75-250 nmol/L) Toxicity: >100 ng/mL (>250 nmol/L) Performed By: #### L 400.0001, #### [facility] [address] [place], [address] LDL calc ser/plasOrdered By: Balwinder Alves on 12-16-2024 Cholesterol in LDL [Mass/Vol] 22 mg/dL [facility] Comment on above: Urjkaugbqv=897-979 m g/dL & Higher Detx=710 mg/dL or greater LDL Cholesterol, Calculated 22 mg/dL [facility] Comment on above: Djizergogw=973-277 m g/dL & Higher Hjis=425 mg/dL or greater Lipid Profileon 12-16-2024 CHOL:HDL 2.22 Normal [facility] Comment on above: Performed By: #### L 400.0001, #### [facility] [address] [place], [place], [id number] (622) Cholesterol [Mass/Vol] 98 mg/dL Normal <=200 [facility] Comment on above: Result Comment: Chol esterol level, Desirable <200 mg/dL Borderline high cholesterol 200-239 mg/dL High cholesterol >=240 mg/dL Recommendations of the NCEP Adult Treatment Panel for the following risk-cutoff thresholds for the [place] population. Performed By: #### L 400.0001, #### [facility] [address] [place], [address] Cholesterol in HDL [Mass/Vol] 44 mg/dL Normal [facility] Comment on above: Result Comment: Matilde onal Cholesterol Education Program (NCEP) guidelines: <40 mg/dL: Low HDL-cholesterol (major risk factor for CHD) >= 60 mg/dL: High HDL-cholesterol (negative risk factor for CHD) HDL-cholesterol is affected by a number of factors, e.g. smoking, exercise, hormones, sex and age. Performed By: #### L 400.0001, #### [facility] [address] [place], [address] Cholesterol in LDL [Mass/Vol] 22 mg/dL Normal [facility] Comment on above: Result Comment: Bord npkqza=609-554 mg/dL Higher Bfvi=027 mg/dL or greater Performed By: #### L 400.0001, #### [facility] [address] [place], [address] Cholesterol in VLDL [Mass/Vol] 32 mg/dL Normal 5-40 [facility] Comment on above: Performed By: #### L 400.0001, #### [facility] [address] [place], [address] Triglyceride [Mass/Vol] 162 mg/dL Normal [facility] Comment on above: Result Comment: The drugs N-Acetylcysteine and Metamizole may falsely depress this assay. Normal range: <150 mg/dL Borderline High: 150-199 mg/dL High: 200-499 mg/dL Very High: >500 mg/dL Performed By: #### L 400.0001, #### [facility] [address] [place], [address] MCV (mean corpuscular volume ) determinationOrdered By: Balwinder Alves on 12-16-2024 MCV (RBC) [Entitic vol] 92.8 fL 81-99 [facility] Mean corpuscular hemoglobin (MCH) determinationOrdered By: Balwinder Alves on 12-16-2024 MCH (RBC) [Entitic mass] 28.2 pg 27.0-32.0 [facility] Mean corpuscular hemoglobin concentration (MCHC) determinationOrdered By: Balwinder Alves on 12-16-2024 MCHC (RBC) [Mass/Vol] 30.4 g/dL Low 32-36 [facility] Mean platelet volume determi nationOrdered By: Balwinder Alves on 12-16-2024 Platelet mean volume (Bld) [Entitic vol] 8.4 fL 6.2-12.0 [facility] Platelet countOrdered By: Jen Alves on 12-16-2024 Platelets (Bld) [#/Vol] 231 10*3/uL 150-450 [facility] Potassium (Unsp spec) [Mass/ Vol]Ordered By: Balwinder Alves on 12-16-2024 Potassium [Moles/Vol] 4.6 mmol/L 3.3-5.1 [facility] Potassium measurement (mass/ volume)Ordered By: Balwinder Alves on 12-16-2024 Potassium (Unsp spec) [Mass/Vol] 4.6 mmol/L 3.3-5.1 [facility] RBC Auto (Bld) [#/Vol]Ordere d By: Balwinder Alves on 12-16-2024 RBC (Bld) [#/Vol] 3.90 10*6/uL Low 4.2-5.4 [facility] Screening total cholesterol/ high density lipoprotein (HDL) cholesterol ratioOrdered By: Balwinder Alves on 12-16-2024 Cholesterol.total/Jany sterol in HDL [Mass ratio] 2.22 {ratio} [facility] Serum creatinine measurement (mass/volume)Ordered By: Balwinder Alves on 12-16-2024 Creatinine [Mass/Vol] 0.67 mg/dL Low 0.70-1.20 [facility] Serum glucose measurement (m ass/volume)Ordered By: Balwinder Alves on 12-16-2024 Glucose [Mass/Vol] 201 mg/dL High 70-99 [facility] Serum or plasma calcium jacqueline urement (mass/volume)Ordered By: Balwinder Alves on 12-16-2024 Calcium [Mass/Vol] 9.5 mg/dL 7.6-11.0 [facility] Serum or plasma cholesterol in HDL measurement (mass/volume)Ordered By: Balwinder Alves on 12-16-2024 Cholesterol in HDL [Mass/Vol] 44 mg/dL >40 [facility] Comment on above: National Cholesterol Education Program (NCEP) guidelines:<40 mg/dL: Low HDL-cholesterol (major risk factor for CHD)>= 60 mg/dL: High HDL-cholesterol (negative risk factor for CHD)HDL-cholesterol is affected by a number of factors, e.g. smoking, exercise, hormones, sex and age. Serum or plasma cholesterol measurement (mass/volume)Ordered By: Balwinder Alves on 12-16-2024 Cholesterol [Mass/Vol] 98 mg/dL <201 [facility] Comment on above: Cholesterol level, D esirable <200 mg/dLBorderline high cholesterol 200-239 mg/dLHigh cholesterol >=240 mg/dLRecommendations of the NCEP Adult Treatment Panel for the following risk-cutoff thresholds for the [place] population. Serum or plasma urea nitroge n measurement (mass/volume)Ordered By: Balwinder Alves on 12-16-2024 Urea nitrogen [Mass/Vol] 8 mg/dL 4-19 [facility] Sodium levelOrdered By: Balwinder Alves on 12-16-2024 Sodium [Moles/Vol] 137 mmol/L 133-145 [facility] Triglycerides measurementOrd ered By: Balwinder Alves on 12-16-2024 Triglyceride [Mass/Vol] 162 mg/dL <199 [facility] Comment on above: The drugs N-Acetylcy steine and Metamizole may falsely depress this assay. Normal range: <150 mg/dLBorderline High: 150-199 mg/dLHigh: 200-499 mg/dLVery High: >500 mg/dL Vitamin D, 25-hydroxyOrdered By: Balwinder Alves on 12-16-2024 Vitamin D 25-Hydroxy 31.6 ng/mL 30-100 [facility] Comment on above: Vitamin D StatusDefi ciency: <20 ng/mL (50nmol/L)Insufficiency: 20-30 ng/mL (50-75 nmol/L)Sufficiency: 30-100 ng/mL (75-250 nmol/L)Toxicity: >100 ng/mL (>250 nmol/L) White blood cell (WBC) count Ordered By: Balwinder Alves on 12-16-2024 WBC (Bld) [#/Vol] 7.8 10*3/uL 4.4-11.0 [facility] Absolute lymphocyte countOrd ered By: Balwinder Alves on 12-14-2024 Lymphocytes Auto (Unsp spec) [#/Vol] 1.93 10*3/uL 0.83-4.51 [facility] Absolute neutrophil countOrd ered By: Balwinder Alves on 12-14-2024 Neutrophils (Bld) [#/Vol] 4.0 10*3/uL 2.0-7.7 [facility] Anion gap in Serum or Plasma Ordered By: Balwinder Alves on 12-14-2024 Anion gap [Moles/Vol] 11 mmol/L 5- [facility] Automated lymphocyte count a s percentage of total leukocytesOrdered By: Balwinder Alves on 12-14-2024 Lymphocytes/100 WBC Auto (Unsp spec) 28.7 % -41 [facility] BUN/creatinine ratioOrdered By: Balwinder Alves on 12-14-2024 Urea nitrogen/Creatinine [Mass ratio] 10.3 mg/mg 10- [facility] Basic Metabolic Profile (BMP )on 12-14-2024 BUN/CRE 10.3 RATIO Normal - [facility] Comment on above: Order Comment: 102-2 Performed By: #### L 500.2500, L100.0100 #### [facility] [address] [place], [address] Calcium [Mass/Vol] 9.2 mg/dL Normal 7.6-11.0 [facility] Comment on above: Order Comment: 102-2 Performed By: #### L 500.2500, L100.0100 #### [facility] [address] [place], [address] Chloride [Moles/Vol] 101 mmol/L Normal 98-108 [facility] Comment on above: Order Comment: 102-2 Performed By: #### L 500.2500, L100.0100 #### [facility] [address] [place], [address] CO2 [Moles/Vol] 27.6 mmol/L Normal 21.0-32.0 [facility] Comment on above: Order Comment: 102-2 Performed By: #### L 500.2500, L100.0100 #### [facility] [address] [place], [address] Creatinine [Mass/Vol] 0.68 mg/dL Low 0.70-1.20 [facility] Comment on above: Order Comment: 102-2 Performed By: #### L 500.2500, L100.0100 #### [facility] [address] [place], [address] GAP 11 Normal 5-15 [facility] Comment on above: Order Comment: 102-2 Performed By: #### L 500.2500, L100.0100 #### [facility] [address] [place], [address] GFR/1.73 sq M.predicted among non-blacks MDRD (S/P/Bld) [Vol rate/Area] 88 mL/min/{1.73_m2} Normal >60 [facility] Comment on above: Order Comment: 102-2 Result Comment: mL/m in/1.73m2 CKD-EPI Creatinine Equation (2020) Performed By: #### L 500.2500, L100.0100 #### [facility] [address] [place], [address] Glucose [Mass/Vol] 177 mg/dL High 70-99 [facility] Comment on above: Order Comment: 102-2 Performed By: #### L 500.2500, L100.0100 #### [facility] [address] [place], [address] Potassium [Moles/Vol] 4.3 mmol/L Normal 3.3-5.1 [facility] Comment on above: Order Comment: 102-2 Performed By: #### L 500.2500, L100.0100 #### [facility] [address] [place], [address] Sodium [Moles/Vol] 139 mmol/L Normal 133-145 [facility] Comment on above: Order Comment: 102-2 Performed By: #### L 500.2500, L100.0100 #### [facility] [address] [place], [address] Urea nitrogen [Mass/Vol] 7 mg/dL Normal 4-19 [facility] Comment on above: Order Comment: 102-2 Performed By: #### L 500.2500, L100.0100 #### [facility] [address] [place], [address] Basophil percentageOrdered B y: Balwinder Alves on 12-14-2024 Basophils/100 WBC (Bld) 0.3 % 0-1 [facility] CBC W/Diff, Automatedon 12-03 Absolute Lymph 1.93 X10 3/uL Normal 0.83-4.51 [facility] Comment on above: Order Comment: 102-2 Performed By: #### L 500.2500, L100.0100 #### [facility] [address] [place], [address] Absolute Neut 4.0 X10 3/uL Normal 2.0-7.7 [facility] Comment on above: Order Comment: 102-2 Performed By: #### L 500.2500, L100.0100 #### [facility] [address] [place], [address] Basophils/100 WBC (Bld) 0.3 % Normal 0-1 [facility] Comment on above: Order Comment: 102-2 Performed By: #### L 500.2500, L100.0100 #### [facility] [address] [place], [address] Eosinophils/100 WBC (Bld) 3.1 % Normal 0-5 [facility] Comment on above: Order Comment: 102-2 Performed By: #### L 500.2500, L100.0100 #### [facility] [address] [place], [address] Erythrocyte distribution width (RBC) [Ratio] 13.6 % Normal 11.6-14.6 [facility] Comment on above: Order Comment: 102-2 Performed By: #### L 500.2500, L100.0100 #### [facility] [address] [place], [address] Hematocrit (Bld) [Volume fraction] 35.6 % Low 37-47 [facility] Comment on above: Order Comment: 102-2 Performed By: #### L 500.2500, L100.0100 #### [facility] [address] [place], [address] Hemoglobin (Bld) [Mass/Vol] 10.9 g/dL Low 12.0-15.0 [facility] Comment on above: Order Comment: 102-2 Performed By: #### L 500.2500, L100.0100 #### [facility] [address] [place], [address] IG% 1.000 High 0.0-0.9 [facility] Comment on above: Order Comment: 102-2 Result Comment: IG% - Immature Granulocytes (promyelocytes, myelocytes and metamyelocytes) > 1% indicates that a LEFT SHIFT is Present. Performed By: #### L 500.2500, L100.0100 #### [facility] [address] [place], [address] Lymphocytes/100 WBC (Bld) 28.7 % Normal 19-41 [facility] Comment on above: Order Comment: 102-2 Performed By: #### L 500.2500, L100.0100 #### [facility] [address] [place], [address] MCH (RBC) [Entitic mass] 28.2 pg Normal 27.0-32.0 [facility] Comment on above: Order Comment: 102-2 Performed By: #### L 500.2500, L100.0100 #### [facility] [address] [place], [address] MCHC (RBC) [Mass/Vol] 30.6 g/dL Low 32-36 [facility] Comment on above: Order Comment: 102-2 Performed By: #### L 500.2500, L100.0100 #### [facility] [address] [place], [address] MCV (RBC) [Entitic vol] 92.0 fL Normal 81-99 [facility] Comment on above: Order Comment: 102-2 Performed By: #### L 500.2500, L100.0100 #### [facility] [address] [place], [address] Monocytes/100 WBC (Bld) 6.8 % Normal 0-10 [facility] Comment on above: Order Comment: 102-2 Performed By: #### L 500.2500, L100.0100 #### [facility] [address] [place], [address] Neutrophils/100 WBC (Bld) 60.1 % Normal 47-70 [facility] Comment on above: Order Comment: 102-2 Performed By: #### L 500.2500, L100.0100 #### [facility] [address] [place], [address] Nucleated RBC (Bld) [#/Vol] 0 10*3/uL Normal 0-5 [facility] Comment on above: Order Comment: 102-2 Performed By: #### L 500.2500, L100.0100 #### [facility] [address] [place], [address] Platelet mean volume (Bld) [Entitic vol] 8.5 fL Normal 6.2-12.0 [facility] Comment on above: Order Comment: 102-2 Performed By: #### L 500.2500, L100.0100 #### [facility] [address] [place], [address] Platelets (Bld) [#/Vol] 213 10*3/uL Normal 150-450 [facility] Comment on above: Order Comment: 102-2 Performed By: #### L 500.2500, L100.0100 #### [facility] [address] [place], [address] RBC (Bld) [#/Vol] 3.87 10*6/uL Low 4.2-5.4 [facility] Comment on above: Order Comment: 102-2 Performed By: #### L 500.2500, L100.0100 #### [facility] [address] [place], [address] RDW SD 46.1 fl High 35.1-43.9 [facility] Comment on above: Order Comment: 102-2 Performed By: #### L 500.2500, L100.0100 #### [facility] [address] [place], [address] WBC (Bld) [#/Vol] 6.7 10*3/uL Normal 4.4-11.0 [facility] Comment on above: Order Comment: 102-2 Performed By: #### L 500.2500, L100.0100 #### [facility] [address] [place], [address] Calculated very low density lipoprotein (VLDL) cholesterol measurementOrdered By: Balwinder Alves on 12-14-2024 Calculated very low density lipoprotein (VLDL) cholesterol measurement 29 mg/dL 5-40 [facility] VLDL Cholesterol 29 mg/dL 5-40 [facility] Carbon dioxide, total [Moles /volume] in Central venous bloodOrdered By: Balwinder Alves on 12-14-2024 CO2 [Moles/Vol] 27.6 mmol/L 21.0-32.0 [facility] Chloride assayOrdered By: Jen Alves on 12-14-2024 Chloride [Moles/Vol] 101 mmol/L 98-108 [facility] Eosinophil percentageOrdered By: Balwinder Alves on 12-14-2024 Eosinophils/100 WBC (Bld) 3.1 % 0-5 [facility] Erythrocyte distribution wid th (RBC) [Ratio]Ordered By: Balwinder Alves on 12-14-2024 Erythrocyte distribution width (RBC) [Entitic vol] 46.1 fL High 35.1-43.9 [facility] Erythrocyte distribution wid th ratioOrdered By: Balwinder Alves on 12-14-2024 Erythrocyte distribution width (RBC) [Ratio] 13.6 % 11.6-14.6 [facility] Erythrocyte distribution wid th standard deviationOrdered By: Balwinder Alves on 12-14-2024 Erythrocyte distribution width (RBC) [Ratio] 46.1 fl High 35.1-43.9 [facility] GFR/1.73 sq M.predicted philipp g non-blacks MDRD (S/P/Bld) [Vol rate/Area]Ordered By: Balwinder Alves on 12-14-2024 Estimated GFR (MDRD) Non-Af Amer 88 >60 [facility] Comment on above: mL/min/1.73m2 CKD-EP I Creatinine Equation (2020) Glomerular filtration rate ( GFR) estimation/1.73 sq m using serum, plasma, or whole bOrdered By: Balwinder Alves on 12-14-2024 GFR/1.73 sq M.predicted among non-blacks MDRD (S/P/Bld) [Vol rate/Area] 88 mL/min/{1.73_m2} >60 [facility] Comment on above: mL/min/1.73m2 CKD-EP I Creatinine Equation (2020) Hematocrit Auto (Bld) [Volum e fraction]Ordered By: Balwinder Alves on 12-14-2024 Hematocrit (Bld) [Volume fraction] 35.6 % Low 37-47 [facility] Hemoglobin A1con 12-14-2024 HbA1c (Bld) [Mass fraction] 8.6 % Normal <=5.6 [facility] Comment on above: Order Comment: 102-2 Performed By: #### L 500.2500, L100.0100 #### [facility] [address] [place], [address] Hemoglobin A1c percentageOrd ered By: Balwinder Alves on 12-14-2024 HbA1c (Bld) [Mass fraction] 8.6 % >5.7 [facility] Hemoglobin measurementOrdere d By: Balwinder Alves on 12-14-2024 Hemoglobin (Bld) [Mass/Vol] 10.9 g/dL Low 12.0-15.0 [facility] Immature granulocytes/100 WB C Auto (Bld)Ordered By: Balwinder Alves on 12-14-2024 Immature granulocytes/100 WBC (Bld) 1.000 % High 0.0-0.9 [facility] Comment on above: IG% - Immature Granu locytes (promyelocytes, myelocytes and metamyelocytes) > 1% indicates that a LEFT SHIFT is Present. L506.1001on 12-14-2024 Vitamin D 25-OH 31.2 ng/mL Normal 30-100 [facility] Comment on above: Order Comment: 102-2 Result Comment: Feli min D Status Deficiency: <20 ng/mL (50nmol/L) Insufficiency: 20-30 ng/mL (50-75 nmol/L) Sufficiency: 30-100 ng/mL (75-250 nmol/L) Toxicity: >100 ng/mL (>250 nmol/L) Performed By: #### L 500.2500, L100.0100 #### [facility] [address] [place], [address] LDL calc ser/plasOrdered By: Balwinder Alves on 12-14-2024 Cholesterol in LDL [Mass/Vol] 22 mg/dL [facility] Comment on above: Jewveouijj=214-004 m g/dL & Higher Jlmr=236 mg/dL or greater LDL Cholesterol, Calculated 22 mg/dL [facility] Comment on above: Utcxwxvmhi=901-567 m g/dL & Higher Hvlg=663 mg/dL or greater Lipid Profileon 12-14-2024 CHOL:HDL 2.29 Normal [facility] Comment on above: Order Comment: 102-2 Performed By: #### L 500.2500, L100.0100 #### [facility] [address] [place], [address] Cholesterol [Mass/Vol] 91 mg/dL Normal <=200 [facility] Comment on above: Order Comment: 102-2 Result Comment: Chol esterol level, Desirable <200 mg/dL Borderline high cholesterol 200-239 mg/dL High cholesterol >=240 mg/dL Recommendations of the NCEP Adult Treatment Panel for the following risk-cutoff thresholds for the [place] population. Performed By: #### L 500.2500, L100.0100 #### [facility] [address] [place], [address] Cholesterol in HDL [Mass/Vol] 40 mg/dL Normal [facility] Comment on above: Order Comment: 102-2 Result Comment: Matilde onal Cholesterol Education Program (NCEP) guidelines: <40 mg/dL: Low HDL-cholesterol (major risk factor for CHD) >= 60 mg/dL: High HDL-cholesterol (negative risk factor for CHD) HDL-cholesterol is affected by a number of factors, e.g. smoking, exercise, hormones, sex and age. Performed By: #### L 500.2500, L100.0100 #### [facility] [address] [place], [address] Cholesterol in LDL [Mass/Vol] 22 mg/dL Normal [facility] Comment on above: Order Comment: 102-2 Result Comment: Bord iycmpc=613-290 mg/dL Higher Dcly=289 mg/dL or greater Performed By: #### L 500.2500, L100.0100 #### [facility] [address] [place], [address] Cholesterol in VLDL [Mass/Vol] 29 mg/dL Normal 5-40 [facility] Comment on above: Order Comment: 102-2 Performed By: #### L 500.2500, L100.0100 #### [facility] [address] [place], [address] Triglyceride [Mass/Vol] 146 mg/dL Normal [facility] Comment on above: Order Comment: 102-2 Result Comment: The drugs N-Acetylcysteine and Metamizole may falsely depress this assay. Normal range: <150 mg/dL Borderline High: 150-199 mg/dL High: 200-499 mg/dL Very High: >500 mg/dL Performed By: #### L 500.2500, L100.0100 #### [facility] [address] [place], [address] Lymphocytes Auto (Unsp spec) [#/Vol]Ordered By: Balwinder Alves on 12-14-2024 Lymphocytes (Bld) [#/Vol] 1.93 10*3/uL 0.83-4.51 [facility] Lymphocytes/100 WBC Auto (Un sp spec)Ordered By: Balwinder Alves on 12-14-2024 Lymphocytes/100 WBC (Bld) 28.7 % 19-41 [facility] MCV (mean corpuscular volume ) determinationOrdered By: Balwinder Alves on 12-14-2024 MCV (RBC) [Entitic vol] 92.0 fL 81-99 [facility] Mean corpuscular hemoglobin (MCH) determinationOrdered By: Balwinder Alves on 12-14-2024 MCH (RBC) [Entitic mass] 28.2 pg 27.0-32.0 [facility] Mean corpuscular hemoglobin concentration (MCHC) determinationOrdered By: Balwinder Alves on 12-14-2024 MCHC (RBC) [Mass/Vol] 30.6 g/dL Low 32-36 [facility] Mean platelet volume determi nationOrdered By: Balwinder Alves on 12-14-2024 Platelet mean volume (Bld) [Entitic vol] 8.5 fL 6.2-12.0 [facility] Monocyte percentageOrdered B y: Balwinder Alves on 12-14-2024 Monocytes/100 WBC (Bld) 6.8 % 0-10 [facility] Neutrophil percentageOrdered By: Balwinder Alves on 12-14-2024 Neutrophils/100 WBC (Bld) 60.1 % 47-70 [facility] Nucleated red blood cell per centageOrdered By: Balwinder Alves on 12-14-2024 Nucleated RBC/100 WBC (Bld) [Ratio] 0 % 0-5 [facility] Platelet countOrdered By: Jen Alves on 12-14-2024 Platelets (Bld) [#/Vol] 213 10*3/uL 150-450 [facility] Potassium (Unsp spec) [Mass/ Vol]Ordered By: Balwinder Alves on 12-14-2024 Potassium [Moles/Vol] 4.3 mmol/L 3.3-5.1 [facility] Potassium measurement (mass/ volume)Ordered By: Balwinder Alves on 12-14-2024 Potassium (Unsp spec) [Mass/Vol] 4.3 mmol/L 3.3-5.1 [facility] RBC Auto (Bld) [#/Vol]Ordere d By: Balwinder Alves on 12-14-2024 RBC (Bld) [#/Vol] 3.87 10*6/uL Low 4.2-5.4 [facility] Screening total cholesterol/ high density lipoprotein (HDL) cholesterol ratioOrdered By: Balwinder Alves on 12-14-2024 Cholesterol.total/Jany sterol in HDL [Mass ratio] 2.29 {ratio} [facility] Serum creatinine measurement (mass/volume)Ordered By: Balwinder Alves on 12-14-2024 Creatinine [Mass/Vol] 0.68 mg/dL Low 0.70-1.20 [facility] Serum glucose measurement (m ass/volume)Ordered By: Balwinder Alves on 12-14-2024 Glucose [Mass/Vol] 177 mg/dL High 70-99 [facility] Serum or plasma calcium jacqueline urement (mass/volume)Ordered By: Balwinder Alves on 12-14-2024 Calcium [Mass/Vol] 9.2 mg/dL 7.6-11.0 [facility] Serum or plasma cholesterol in HDL measurement (mass/volume)Ordered By: Balwinder Alves on 12-14-2024 Cholesterol in HDL [Mass/Vol] 40 mg/dL >40 [facility] Comment on above: National Cholesterol Education Program (NCEP) guidelines:<40 mg/dL: Low HDL-cholesterol (major risk factor for CHD)>= 60 mg/dL: High HDL-cholesterol (negative risk factor for CHD)HDL-cholesterol is affected by a number of factors, e.g. smoking, exercise, hormones, sex and age. Serum or plasma cholesterol measurement (mass/volume)Ordered By: Balwinder Alves on 12-14-2024 Cholesterol [Mass/Vol] 91 mg/dL <201 [facility] Comment on above: Cholesterol level, D esirable <200 mg/dLBorderline high cholesterol 200-239 mg/dLHigh cholesterol >=240 mg/dLRecommendations of the NCEP Adult Treatment Panel for the following risk-cutoff thresholds for the [place] population. Serum or plasma urea nitroge n measurement (mass/volume)Ordered By: Balwinder Alves on 12-14-2024 Urea nitrogen [Mass/Vol] 7 mg/dL 4-19 [facility] Sodium levelOrdered By: Balwinder Alves on 12-14-2024 Sodium [Moles/Vol] 139 mmol/L 133-145 [facility] Triglycerides measurementOrd ered By: Balwinder Alves on 12-14-2024 Triglyceride [Mass/Vol] 146 mg/dL <199 [facility] Comment on above: The drugs N-Acetylcy steine and Metamizole may falsely depress this assay. Normal range: <150 mg/dLBorderline High: 150-199 mg/dLHigh: 200-499 mg/dLVery High: >500 mg/dL Vitamin D, 25-hydroxyOrdered By: Balwinder Alves on 12-14-2024 Vitamin D 25-Hydroxy 31.2 ng/mL 30-100 [facility] Comment on above: Vitamin D StatusDefi ciency: <20 ng/mL (50nmol/L)Insufficiency: 20-30 ng/mL (50-75 nmol/L)Sufficiency: 30-100 ng/mL (75-250 nmol/L)Toxicity: >100 ng/mL (>250 nmol/L) White blood cell (WBC) count Ordered By: Balwinder Alves on 12-14-2024 WBC (Bld) [#/Vol] 6.7 10*3/uL 4.4-11.0 [facility] Urine Cultureon 10-17-2024 [facility] Copy of report sent to Infection Control Printer [id number] 10/17/24 1000 VSICK. Urine Culture Urine Culture Urine Culture ESBL Escherichia coli [place] Count 80,000-100,000 MARKER ESBL producing OrganismA MARKER ESBL producing OrganismA [place] Count 80,000-100,000 Proteus mirabilis Ampicillin Islt PREM [...] TMP SMX Islt PREM <=20 S Normal [facility] Comment on above: Performed By: #### M 100, L4 #### [facility] [address] [place], [address] Urinalysis, Routine (Dipstic k)on 10-11-2024 BILIRUBIN URINE Negative Normal Negative [facility] Comment on above: Order Comment: CLEAN CATCH Performed By: #### M , L4.2010 #### [facility] [address] [place], [address] Clarity (U) Sl. Cloudy Normal Clear [facility] Comment on above: Order Comment: CLEAN CATCH Performed By: #### M 100.2199, L4 #### [facility] [address] [place], [address] Color (U) Yellow Normal Yellow [facility] Comment on above: Order Comment: CLEAN CATCH Performed By: #### M 100, L400 #### [facility] [address] [place], [address] GLUCOSE, UR Normal Normal Normal [facility] Comment on above: Order Comment: CLEAN CATCH Performed By: #### M 100.2199, L4 #### [facility] [address] [place], [address] KETONE UR Negative Normal Negative [facility] Comment on above: Order Comment: CLEAN CATCH Performed By: #### M , L4 #### [facility] [address] [place], [address] LEUK ESTERASE 500 /ul Abnormal Negative [facility] Comment on above: Order Comment: CLEAN CATCH Performed By: #### M , L4 #### [facility] [address] [place], [address] Nitrite Ql (U) Positive Abnormal Negative [facility] Comment on above: Order Comment: CLEAN CATCH Performed By: #### M , L4 #### [facility] [address] [place], [address] OCCULT BLOOD-UR 50 /ul Abnormal Negative [facility] Comment on above: Order Comment: CLEAN CATCH Performed By: #### M L4 #### [facility] [address] [place], [address] pH UR 6.5 Normal 5.0 - 8.0 [facility] Comment on above: Order Comment: CLEAN CATCH Performed By: #### M , L4 #### [facility] [address] [place], [address] PROT DIPSTX 15 mg/dl Abnormal Negative [facility] Comment on above: Order Comment: CLEAN CATCH Performed By: #### M , L4 #### [facility] [address] [place], [address] SP.GR. DIPSTX 1.010 Normal 1.002-1.030 [facility] Comment on above: Order Comment: CLEAN CATCH Performed By: #### M 100.2200, L400.2010 #### [facility] [address] [place], [address] UROBILI Normal Normal Normal [facility] Comment on above: Order Comment: CLEAN CATCH Performed By: #### M 100.2200, L400.2010 #### [facility] [address] [place], [address] Bilirubin Test strip Ql (U)O rdered By: Balwinder Alves on 10-10-2024 Bilirubin Ql (U) Negative Negative [facility] Glucose Ql (U)Ordered By: Jen Alves on 10-10-2024 Urine Glucose (UA) Normal mg/dl Normal [facility] Ketones Test strip Ql (U)Ord ered By: Balwinder Alves on 10-10-2024 Ketones Ql (U) Negative Negative [facility] Nitrite Test strip Ql (U)Ord ered By: Balwinder Alves on 10-10-2024 Nitrite Ql (U) Positive High Negative [facility] Protein Test strip Ql (U)Ord ered By: Balwinder Alves on 10-10-2024 Protein Ql (U) 15 mg/dl High Negative [facility] Urine blood detectionOrdered By: Balwinder Alves on 10-10-2024 Urine Occult Blood 50 /ul High Negative [facility] Urine clarityOrdered By: Javed Alves on 10-10-2024 Clarity (U) Sl. Cloudy Clear [facility] Urine color determinationOrd ered By: Balwinder Alves on 10-10-2024 Color (U) Yellow Yellow [facility] Urine cultureOrdered By: Javed Alves on 10-10-2024 Bacteria identified Cx Nom (U) ESBL Escherichia coli Abnormal [facility] Bacteria identified Cx Nom (U) Proteus mirabilis Abnormal [facility] Urine leukocyte esterase det ection by dipstickOrdered By: Balwinder Alves on 10-10-2024 Leukocyte esterase Test strip Ql (U) 500 /ul High Negative [facility] Urine pHOrdered By: Balwinder blackman on 10-10-2024 pH (U) 6.5 [pH] 5.0 - 8.0 [facility] Urine specific gravity measu rementOrdered By: Balwinder Alves on 10-10-2024 Specific gravity (U) [Rel density] 1.010 1.002-1.030 [facility] Urobilinogen Ql (U)Ordered B y: Balwinder Alves on 10-10-2024 Urine Urobilinogen Normal mg/dl Normal [facility] Automated blood erythrocyte countOrdered By: Balwinder Alves on 09-14-2024 RBC (Bld) [#/Vol] 3.90 10*6/uL Low 4.2-5.4 [facility] Comment on above: Order Comment: 102.2 Performed By: #### L 400.0001, #### [facility] [address] [place], [address] Automated blood hematocrit ( percentage)Ordered By: Balwinder Alves on 09-14-2024 Hematocrit (Bld) [Volume fraction] 37.7 % Normal 37-47 [facility] Comment on above: Order Comment: 102.2 Performed By: #### L 400.0001, #### [facility] [address] [place], [address] Basic Metabolic Profile (BMP )on 09-14-2024 BUN/CRE 15.5 RATIO Normal 10-20 [facility] Comment on above: Order Comment: 102.2 Performed By: #### L 400.0001, #### [facility] [address] [place], [address] CA,Total 9.4 mg/dL Normal 8.5-10.1 [facility] Comment on above: Order Comment: 102.2 Performed By: #### L 400.0001, #### [facility] [address] [place], [address] EST GFR - AA 102 mL/min Normal >60 [facility] Comment on above: Order Comment: 102.2 Result Comment: Afri can [place] GFR Calc Performed By: #### L 400.0001, M1 #### [facility] [address] [place], [address] GAP 3 Low 5-15 [facility] Comment on above: Order Comment: 102.2 Performed By: #### L 400.0001, #### [facility] [address] [place], [address] GFR/1.73 sq M.predicted among non-blacks MDRD (S/P/Bld) [Vol rate/Area] 84 mL/min/{1.73_m2} Normal >60 [facility] Comment on above: Order Comment: 102.2 Result Comment: Non- GFR Calc Performed By: #### L 400.0001, #### [facility] [address] [place], [address] Blood urea nitrogen (BUN)/cr eatinine ratioOrdered By: Balwinder Alves on 09-14-2024 Urea nitrogen/Creatinine [Mass ratio] 15.5 mg/mg 10- [facility] CBC-Complete Blood Cnt No Di ffon 09-14-2024 RDW SD 48.3 fl High 35.1-43.9 [facility] Comment on above: Order Comment: 102.2 Performed By: #### L 400.0001, #### [facility] [address] [place], [place], [id number] Carbon dioxide measurementOr dered By: Balwinder Alves on 09-14-2024 CO2 [Moles/Vol] 34.0 mmol/L High 21.0-32.0 [facility] Comment on above: Order Comment: 102.2 Performed By: #### L 400.0001, #### [facility] [address] [place], [address] Chloride measurementOrdered By: Balwinder Alves on 09-14-2024 Chloride [Moles/Vol] 103 mmol/L Normal 98-107 [facility] Comment on above: Order Comment: 102.2 Performed By: #### L 400.0001, #### [facility] [address] [place], [place], [id number] Erythrocyte distribution wid th (RBC) [Ratio]Ordered By: Balwinder Alves on 09-14-2024 Erythrocyte distribution width (RBC) [Entitic vol] 48.3 fL High 35.1-43.9 [facility] Erythrocyte distribution wid th ratioOrdered By: Balwinder Alves on 09-14-2024 Erythrocyte distribution width (RBC) [Ratio] 14.0 % Normal 11.6-14.6 [facility] Comment on above: Order Comment: 102.2 Performed By: #### L 400.0001, #### [facility] [address] [place], [address] Estimated glomerular filtrat ion rate (GFR) AmericanOrdered By: Balwinder Alves on 09-14-2024 Estimated GFR (MDRD) Amer 102 mL/min >60 [facility] Comment on above: GFR Calc Glomerular filtration rate ( GFR) estimationOrdered By: Balwinder Alves on 09-14-2024 Estimated GFR (MDRD) Non-Af Amer 84 mL/min >60 [facility] Comment on above: Non- GFR Calc Glucose measurementOrdered B y: Balwinder Alves on 09-14-2024 Glucose [Mass/Vol] 168 mg/dL High 74-106 [facility] Comment on above: Fasting Glucose resu lt greater than or equal to 126 mg/dL suggests DIABETES MELLITUS per A.D.A. criteria. Order Comment: 102.2 Result Comment: Fast ing Glucose result greater than or equal to 126 mg/dL suggests DIABETES MELLITUS per A.D.A. criteria. Performed By: #### L 400.0001, #### [facility] [address] [place], [address] Hemoglobin measurementOrdere d By: Balwinder Alves on 09-14-2024 Hemoglobin (Bld) [Mass/Vol] 11.1 g/dL Low 12.0-15.0 [facility] Comment on above: Order Comment: 102.2 Performed By: #### L 400.0001, #### [facility] [address] [place], [address] MCV (mean corpuscular volume ) determinationOrdered By: Balwinder Alves on 09-14-2024 MCV (RBC) [Entitic vol] 96.7 fL Normal 81-99 [facility] Comment on above: Order Comment: 102.2 Performed By: #### L 400.0001, #### [facility] [address] [place], [address] Mean corpuscular hemoglobin (MCH) determinationOrdered By: Balwinder Alves on 09-14-2024 MCH (RBC) [Entitic mass] 28.5 pg Normal 27.0-32.0 [facility] Comment on above: Order Comment: 102.2 Performed By: #### L 400.0001, #### [facility] [address] [place], [address] Mean corpuscular hemoglobin concentration (MCHC) determinationOrdered By: Balwinder Alves on 09-14-2024 MCHC (RBC) [Mass/Vol] 29.4 g/dL Low 32-36 [facility] Comment on above: Order Comment: 102.2 Performed By: #### L 400.0001, #### [facility] [address] [place], [address] Mean platelet volume determi nationOrdered By: Balwinder Alves on 09-14-2024 Platelet mean volume (Bld) [Entitic vol] 8.2 fL Normal 6.2-12.0 [facility] Comment on above: Order Comment: 102.2 Performed By: #### L 400.0001, #### [facility] [address] [place], [address] Platelet countOrdered By: Jen Alves on 09-14-2024 Platelets (Bld) [#/Vol] 178 10*3/uL Normal 150-450 [facility] Comment on above: Order Comment: 102.2 Performed By: #### L 400.0001, #### [facility] [address] [place], [address] Potassium measurementOrdered By: Balwinder Alves on 09-14-2024 Potassium [Moles/Vol] 4.6 mmol/L Normal 3.5-5.1 [facility] Comment on above: Order Comment: 102.2 Performed By: #### L 400.0001, #### [facility] [address] [place], [address] Serum anion gap measurementO rdered By: Balwinder Alves on 09-14-2024 Anion gap [Moles/Vol] 3 mmol/L Low 5-15 [facility] Serum or plasma calcium jacqueline urement (mass/volume)Ordered By: Balwinder Alves on 09-14-2024 Calcium [Mass/Vol] 9.4 mg/dL 8.5-10.1 [facility] Serum or plasma creatinine m easurement (mass/volume)Ordered By: Balwinder Alves on 09-14-2024 Creatinine [Mass/Vol] 0.71 mg/dL Normal 0.55-1.02 [facility] Comment on above: The validity of the calculated GFR & GFRAA in patients over 70 years has not been determined. Clinical correlation is essential. Order Comment: 102.2 Result Comment: The validity of the calculated GFR GFRAA in patients over 70 years has not been determined. Clinical correlation is essential. Performed By: #### L 400.0001, #### [facility] [address] [place], [address] Serum or plasma urea nitroge n measurement (mass/volume)Ordered By: Balwinder Alves on 09-14-2024 Urea nitrogen [Mass/Vol] 11 mg/dL Normal 7-18 [facility] Comment on above: Order Comment: 102.2 Performed By: #### L 400.0001, #### [facility] [address] [place], [address] Sodium levelOrdered By: Balwinder Alves on 09-14-2024 Sodium [Moles/Vol] 139 mmol/L Normal 136-145 [facility] Comment on above: Order Comment: 102.2 Performed By: #### L 400.0001, M1.0 #### [facility] [address] [place], [address] White blood cell (WBC) count Ordered By: Balwinder Alves on 09-14-2024 WBC (Bld) [#/Vol] 5.6 10*3/uL Normal 4.4-11.0 [facility] Comment on above: Order Comment: 102.2 Performed By: #### L 400.0001, M1 #### [facility] [address] [place] [place], [address] Basic Metabolic Profile (BMP )on 06-14-2024 BUN/CRE 13.6 RATIO Normal 10-20 [facility] Comment on above: Order Comment: 102-2 Performed By: #### L 500.2500, L100.0100 #### [facility] [address] [place], [address] CA,Total 9.5 mg/dL Normal 8.5-10.1 [facility] Comment on above: Order Comment: 102-2 Performed By: #### L 500.2500, L100.0100 #### [facility] [address] [place], [address] Chloride [Moles/Vol] 101 mmol/L Normal 98-107 [facility] Comment on above: Order Comment: 102-2 Performed By: #### L 500.2500, L100.0100 #### [facility] [address] [place], [address] CO2 [Moles/Vol] 30.0 mmol/L Normal 21.0-32.0 [facility] Comment on above: Order Comment: 102-2 Performed By: #### L 500.2500, L100.0100 #### [facility] [address] [place], [address] Creatinine [Mass/Vol] 0.74 mg/dL Normal 0.55-1.02 [facility] Comment on above: Order Comment: 102-2 Result Comment: The validity of the calculated GFR GFRAA in patients over 70 years has not been determined. Clinical correlation is essential. Performed By: #### L 500.2500, L100.0100 #### [facility] [address] [place], [address] EST GFR - AA 98 mL/min Normal >60 [facility] Comment on above: Order Comment: 102-2 Result Comment: Afri can [place]an GFR Calc Performed By: #### L 500.2500, L100.0100 #### [facility] [address] [place], [address] GAP 6 Normal 5-15 [facility] Comment on above: Order Comment: 102-2 Performed By: #### L 500.2500, L100.0100 #### [facility] [address] [place], [address] GFR/1.73 sq M.predicted among non-blacks MDRD (S/P/Bld) [Vol rate/Area] 81 mL/min/{1.73_m2} Normal >60 [facility] Comment on above: Order Comment: 102-2 Result Comment: Non- GFR Calc Performed By: #### L 500.2500, L100.0100 #### [facility] [address] [place], [address] Glucose [Mass/Vol] 157 mg/dL High 74-106 [facility] Comment on above: Order Comment: 102-2 Result Comment: Fast ing Glucose result greater than or equal to 126 mg/dL suggests DIABETES MELLITUS per A.D.A. criteria. Performed By: #### L 500.2500, L100.0100 #### [facility] [address] [place], [address] Potassium [Moles/Vol] 4.1 mmol/L Normal 3.5-5.1 [facility] Comment on above: Order Comment: 102-2 Performed By: #### L 500.2500, L100.0100 #### [facility] [address] [place], [address] Sodium [Moles/Vol] 137 mmol/L Normal 136-145 [facility] Comment on above: Order Comment: 102-2 Performed By: #### L 500.2500, L100.0100 #### [facility] [address] [place], [address] Urea nitrogen [Mass/Vol] 10 mg/dL Normal 7-18 [facility] Comment on above: Order Comment: 102-2 Performed By: #### L 500.2500, L100.0100 #### [facility] [address] [place], [address] CBC[facility] Erythrocyte distribution width (RBC) [Ratio] 14.5 % Normal 11.6-14.6 [facility] Comment on above: Order Comment: 102-2 Performed By: #### L 500.2500, L100.0100 #### [facility] [address] [place], [address] Hematocrit (Bld) [Volume fraction] 36.9 % Low 37-47 [facility] Comment on above: Order Comment: 102-2 Performed By: #### L 500.2500, L100.0100 #### [facility] [address] [place], [address] Hemoglobin (Bld) [Mass/Vol] 11.1 g/dL Low 12.0-15.0 [facility] Comment on above: Order Comment: 102-2 Performed By: #### L 500.2500, L100.0100 #### [facility] [address] [place], [address] MCH (RBC) [Entitic mass] 28.6 pg Normal 27.0-32.0 [facility] Comment on above: Order Comment: 102-2 Performed By: #### L 500.2500, L100.0100 #### [facility] [address] [place], [address] MCHC (RBC) [Mass/Vol] 30.1 g/dL Low 32-36 [facility] Comment on above: Order Comment: 102-2 Performed By: #### L 500.2500, L100.0100 #### [facility] [address] [place], [address] MCV (RBC) [Entitic vol] 95.1 fL Normal 81-99 [facility] Comment on above: Order Comment: 102-2 Performed By: #### L 500.2500, L100.0100 #### [facility] [address] [place], [address] Platelet mean volume (Bld) [Entitic vol] 8.7 fL Normal 6.2-12.0 [facility] Comment on above: Order Comment: 102-2 Performed By: #### L 500.2500, L100.0100 #### [facility] [address] [place], [address] Platelets (Bld) [#/Vol] 165 10*3/uL Normal 150-450 [facility] Comment on above: Order Comment: 102-2 Performed By: #### L 500.2500, L100.0100 #### [facility] [address] [place], [address] RBC (Bld) [#/Vol] 3.88 10*6/uL Low 4.2-5.4 [facility] Comment on above: Order Comment: 102-2 Performed By: #### L 500.2500, L100.0100 #### [facility] [address] [place], [address] RDW SD 50.7 fl High 35.1-43.9 [facility] Comment on above: Order Comment: 102-2 Performed By: #### L 500.2500, L100.0100 #### [facility] [address] [place], [address] WBC (Bld) [#/Vol] 5.4 10*3/uL Normal 4.4-11.0 [facility] Comment on above: Order Comment: 102-2 Performed By: #### L 500.2500, L100.0100 #### [facility] [address] [place], [address] Hemoglobin A1con 06-14-2024 HbA1c (Bld) [Mass fraction] 6.7 % High 3.8-5.6 [facility] Comment on above: Order Comment: 102-2 Result Comment: Norm al < 5.7 % Prediabetic 5.7 - 6.4 % Diabetic >or= 6.5 % Please note range changes. Performed By: #### L 500.2500, L100.0100 #### [facility] [address] [place], [address] Lipid Profileon 06-14-2024 Cholesterol [Mass/Vol] 134 mg/dL Normal 200 [facility] Comment on above: Order Comment: 102-2 Result Comment: <200 mg/dL Desirable 200-240 mg/dL Borderline >240 mg/dL High Risk Performed By: #### L 500.2500, L100.0100 #### [facility] [address] [place], [address] Cholesterol in HDL [Mass/Vol] 66 mg/dL Normal [facility] Comment on above: Order Comment: 102-2 Result Comment: The drugs N-Acetylcysteine and Metamizole may falsely depress this assay. Reference Range HDL <40 mg/dL Low HDL Cholesterol HDL >or= 60 mg/dL High HDL Cholesterol Performed By: #### L 500.2500, L100.0100 #### [facility] [address] [place], [address] Cholesterol in LDL [Mass/Vol] 43 mg/dL Normal 0-130 [facility] Comment on above: Order Comment: 102-2 Performed By: #### L 500.2500, L100.0100 #### [facility] [address] [place], [address] Cholesterol in VLDL [Mass/Vol] 25 mg/dL Normal 5-40 [facility] Comment on above: Order Comment: 102-2 Performed By: #### L 500.2500, L100.0100 #### [facility] [address] [place], [address] Triglyceride [Mass/Vol] 125 mg/dL Normal [facility] Comment on above: Order Comment: 102-2 Result Comment: The drugs N-Acetylcysteine and Metamizole may falsely depress this assay. Serum Triglycerides Reference Interval Normal <150 mg/dL Borderline high 150 - 199 mg/dL High 200 - 499 mg/dL Very High > or = 500 mg/dL Performed By: #### L 500.2500, L100.0100 #### [facility] [address] [place], [address] Vitamin D,25 Hydroxyon 06-14 Vitamin D 25-OH 38.8 ng/mL Normal [facility] Comment on above: Order Comment: 102-2 Result Comment: Feli min D 25(OH) Status Range Deficiency <20 ng/mL (50nmol/L) Insufficiency 20 - 30 ng/mL (50 - 75 nmol/L) Sufficiency 30 - 100 ng/mL (75 - 250 nmol/L) Toxicity >100 ng/mL (>250 nmol/L) Performed By: #### L 500.2500, L100.0100 #### [facility] [address] [place], [address] Basophil percentageOrdered B y: Balwinder Alves on 12-14-2023 Chloride [Moles/Vol] 105 mmol/L 98-107 [facility] Cholesterol [Mass/Vol] 128 mg/dL <200 [facility] Comment on above: <200 mg/dL Desirable 200-240 mg/dL Borderline >240 mg/dL High Risk Glucose [Mass/Vol] 132 mg/dL 74-106 [facility] Comment on above: Fasting Glucose resu lt greater than or equal to 126 mg/dL suggests DIABETES MELLITUS per A.D.A. criteria. Hemoglobin (Bld) [Mass/Vol] 12.5 g/dL 12.0-15.0 [facility] Potassium [Moles/Vol] 4.4 mmol/L 3.5-5.1 [facility] Sodium [Moles/Vol] 142 mmol/L 136-145 [facility] Triglyceride [Mass/Vol] 178 mg/dL <199 [facility] Comment on above: The drugs N-Acetylcy steine and Metamizole may falsely depress this assay.Serum Triglycerides Reference Interval Normal <150 mg/dL Borderline high 150 - 199 mg/dL High 200 - 499 mg/dL Very High > or = 500 mg/dL WBC (Bld) [#/Vol] 4.9 10*3/uL 4.4-11.0 [facility] Determination of erythrocyte mean corpuscular volume (MCV)Ordered By: Balwinder Alves on 12-14-2023 MCV (RBC) [Entitic vol] 92.6 fL 81-99 [facility] Erythrocyte distribution wid th ratioOrdered By: Balwinder Alves on 12-14-2023 Erythrocyte distribution width (RBC) [Ratio] 15.4 % 11.6-14.6 [facility] Erythrocyte distribution wid th standard deviationOrdered By: Balwinder Alves on 12-14-2023 Erythrocyte distribution width (RBC) [Entitic vol] 52.9 fL 35.1-43.9 [facility] Hematocrit Auto (Bld) [Volum e fraction]Ordered By: Balwinder Alves on 12-14-2023 Hematocrit (Bld) [Volume fraction] 41.1 % 37-47 [facility] - Chemistry and C hemistry - challengeOrdered By: Balwinder Alves on 12-14-2023 Cholesterol in HDL [Mass/Vol] 49 mg/dL >40 [facility] Comment on above: The drugs N-Acetylcy steine and Metamizole may falsely depress this assay. Reference Range HDL <40 mg/dL Low HDL Cholesterol HDL >or= 60 mg/dL High HDL Cholesterol Cholesterol in LDL [Mass/Vol] 43 mg/dL 0-130 [facility] CO2 [Moles/Vol] 32.0 mmol/L 21.0-32.0 [facility] Urea nitrogen/Creatinine [Mass ratio] 12.2 mg/mg 10-20 [facility] - Hematology and Cell countsOrdered By: Balwinder Alves on 12-14-2023 MCH (RBC) [Entitic mass] 28.2 pg 27.0-32.0 [facility] MCHC (RBC) [Mass/Vol] 30.4 g/dL 32-36 [facility] Platelet mean volume (Bld) [Entitic vol] 8.5 fL 6.2-12.0 [facility] Platelets (Bld) [#/Vol] 174 10*3/uL 150-450 [facility] No Panel InformationOrdered By: Balwinder Alves on 12-14-2023 Estimated GFR (MDRD) Amer 130 mL/min >60 [facility] Comment on above: GFR Calc Estimated GFR (MDRD) Non-Af Amer 107 mL/min >60 [facility] Comment on above: Non- GFR Calc Vitamin D 25-Hydroxy 42.9 ng/mL [facility] Comment on above: Vitamin D 25(OH) Sta tus Range Deficiency <20 ng/mL (50nmol/L) Insufficiency 20 - 30 ng/mL (50 - 75 nmol/L) Sufficiency 30 - 100 ng/mL (75 - 250 nmol/L) Toxicity >100 ng/mL (>250 nmol/L) VLDL Cholesterol 36 mg/dL 5-40 [facility] RBC Auto (Bld) [#/Vol]Ordere d By: Balwinder Alves on 12-14-2023 RBC (Bld) [#/Vol] 4.44 10*6/uL 4.2-5.4 [facility] Serum or plasma calcium jacqueline urement (mass/volume)Ordered By: Balwinder Alves on 12-14-2023 Calcium [Mass/Vol] 8.9 mg/dL 8.5-10.1 [facility] Serum or plasma creatinine m easurement (mass/volume)Ordered By: Balwinder Alves on 12-14-2023 Creatinine [Mass/Vol] 0.58 mg/dL 0.55-1.02 [facility] Comment on above: The validity of the calculated GFR & GFRAA in patients over 70 years has not been determined. Clinical correlation is essential. Serum or plasma urea nitroge n measurement (mass/volume)Ordered By: Balwinder Alves on 12-14-2023 Urea nitrogen [Mass/Vol] 7 mg/dL 7-18 [facility] Thin prep Papanicolaou smear with manual screeningOrdered By: Balwinder Alves on 12-14-2023 Thin prep Papanicolaou smear with manual screening 5 5-15 [facility] Whole blood hemoglobin A1c/t otal hemoglobin ratio (mass fraction)Ordered By: Balwinder Alves on 12-14-2023 HbA1c (Bld) [Mass fraction] 6.2 % 3.8-5.6 [facility] Comment on above: Normal < 5.7 % Predi abetic 5.7 - 6.4 % Diabetic >or= 6.5 % Please note range changes. Office Visiton 12-09-2023 Follow-up visit [id number] Daria,Joy edwards 1945 F Date Provider Department Center 12/09/2023 [id number], MIA [facility] [place] None No family history on file Level of Service:01369 [place] OFFICE/OUTPATIENT ESTABLISHED LOW MDM 20 MIN Reason for Visit and Comments: Follow-up [798509] - L fibula fx Normal [facility] Progress Noteon 12-09-2023 Progress Note [facility] [address] [place] [address] [place] [id number] Dept: [phone] Dept Gumaro Daria 1945 [id number] 12/09/2023 HISTORY OF PRESENT ILLNESS: Gumaro returns [...] instructed on it (more content not included)... Normal [facility] 36on 10-14-2023 36 Spoke with Beny at [facility] and clarified that Gumaro should bear weight in her boot until next visit and should use walker as needed for balance. Normal [facility] 36 Name of Caller: Gareth at [facility] Contact ask for Gareth Reason Gareth is [...] requesting a call back. Office Name: Ortho Normal [facility] Office Visiton 10-14-2023 Follow-up visit [id number] Joy Huff 1945 F Date Provider Department Center 10/14/2023 [id number], MIA [facility] [place] None No family history on file Level of Service:86677 [place] OFFICE/OUTPATIENT ESTABLISHED LOW MDM 20 MIN Reason for Visit and Comments: Follow-up [201778] - Left distal fibula fx DOI 07/02/23 [facility] Progress Noteon 10-14-2023 Progress Note [facility] [address] [place] [address] [address] [facility] [address] Dept: [phone] Dept Gumaro Huff 1945 [id number] 10/14/2023 HISTORY OF PRESENT ILLNESS: Gumaro returns [...] above p (more content not included)... Normal [facility] Clostridioides difficile nuc leic acid assay by PCROrdered By: Balwinder Alves on 09-23-2023 C. difficile DNA DIGNA+probe Ql (Unsp spec) [facility] Clostridium difficile detect ion by polymerase chain reactionOrdered By: Balwinder Alves on 09-23-2023 C. difficile DNA DIGNA+probe Ql (Unsp spec) [facility] Basophil percentageOrdered B y: Balwinder Alves on 09-14-2023 Chloride [Moles/Vol] 102 mmol/L 98-107 [facility] Glucose [Mass/Vol] 142 mg/dL 74-106 [facility] Comment on above: Fasting Glucose resu lt greater than or equal to 126 mg/dL suggests DIABETES MELLITUS per A.D.A. criteria. Potassium [Moles/Vol] 4.1 mmol/L 3.5-5.1 [facility] Sodium [Moles/Vol] 138 mmol/L 136-145 [facility] WBC (Bld) [#/Vol] 5.9 10*3/uL 4.4-11.0 [facility] Blood erythrocytes count (nu mber/volume)Ordered By: Balwinder Alves on 09-14-2023 RBC (Bld) [#/Vol] 4.96 10*6/uL 4.2-5.4 [facility] Blood hemoglobin measurement (mass/volume)Ordered By: Balwinder Alves on 09-14-2023 Hemoglobin (Bld) [Mass/Vol] 13.3 g/dL 12.0-15.0 [facility] Blood platelet mean volumeOr dered By: Balwinder Alves on 09-14-2023 Platelet mean volume (Bld) [Entitic vol] 8.3 fL 6.2-12.0 [facility] Determination of erythrocyte mean corpuscular volume (MCV)Ordered By: Balwinder Alves on 09-14-2023 MCV (RBC) [Entitic vol] 92.5 fL 81-99 [facility] Hematocrit Auto (Bld) [Volum e fraction]Ordered By: Balwinder Alves on 09-14-2023 Hematocrit (Bld) [Volume fraction] 45.9 % 37-47 [facility] - Chemistry and C hemistry - challengeOrdered By: Balwinder Alves on 09-14-2023 CO2 [Moles/Vol] 31.0 mmol/L 21.0-32.0 [facility] Urea nitrogen/Creatinine [Mass ratio] 10.1 mg/mg 10-20 [facility] - Hematology and Cell countsOrdered By: Balwinder Alves on 09-14-2023 Erythrocyte distribution width (RBC) [Entitic vol] 47.0 fL 35.1-43.9 [facility] Erythrocyte distribution width (RBC) [Ratio] 13.9 % 11.6-14.6 [facility] MCH (RBC) [Entitic mass] 26.8 pg 27.0-32.0 [facility] MCHC Auto (RBC) [Mass/Vol]Or dered By: Balwinder Alves on 09-14-2023 MCHC (RBC) [Mass/Vol] 29.0 g/dL 32-36 [facility] No Panel InformationOrdered By: Balwinder Alves on 09-14-2023 Estimated GFR (MDRD) Amer 125 mL/min >60 [facility] Comment on above: GFR Calc Estimated GFR (MDRD) Non-Af Amer 103 mL/min >60 [facility] Comment on above: Non- GFR Calc Office Visiton 09-14-2023 Follow-up visit [id number] Joy Huff 1945 F Date Provider Department Center 09/14/2023 [id number] UREÑA [facility] [place] [facility] None No family history on file Level of Service:51267 AR OFFICE/OUTPATIENT NEW MODERATE MDM 45-59 MINUTES Reason for Visit and Comments: New Patient [542] - LT distal fibula fx DOI 07/02/23 Normal [facility] Platelets bldOrdered By: Javed Alves on 09-14-2023 Platelets (Bld) [#/Vol] 196 10*3/uL 150-086 [facility] Progress Noteon 09-14-2023 Progress Note [facility] [address] [place] [address] Dept: [phone] Dept Gumaro Huff 1945 [id number] 09/14/2023 HISTORY OF PRESENT ILLNESS: Gumaro is a 78 y.o. female here today for evaluation of her Left distal fibula fx DOI 07/02/23. Patient has been in a walking boot. Patient is diabetic. She is currently in a retirement due to injury. She was supposed to be seen closer to her fx date but her appointments were canceled due to retirement transportation issues. She has been nonweightbearing since her injury. Gumaro states the problem has been present for 3 months est Gumaro states the problem started as the result of a fall, tripped walking into her home. Gumaro has tried or has been treated with the following: walking boot, retirement PT. Review of Systems Surgical Risk Factors: [...] given he (more content not included)... Normal [facility] Serum or plasma calcium jacqueline urement (mass/volume)Ordered By: Balwinder Alves on 09-14-2023 Calcium [Mass/Vol] 8.9 mg/dL 8.5-10.1 [facility] Serum or plasma creatinine m easurement (mass/volume)Ordered By: Balwinder Alves on 09-14-2023 Creatinine [Mass/Vol] 0.59 mg/dL 0.55-1.02 [facility] Comment on above: The validity of the calculated GFR & GFRAA in patients over 70 years has not been determined. Clinical correlation is essential. Serum or plasma urea nitroge n measurement (mass/volume)Ordered By: Balwinder Alves on 09-14-2023 Urea nitrogen [Mass/Vol] 6 mg/dL 7-18 [facility] Thin prep Papanicolaou smear with manual screeningOrdered By: Balwinder Alves on 09-14-2023 Thin prep Papanicolaou smear with manual screening 5 5-15 [facility] XR ANKLE 3+ VIEWS LEFTon XR ANKLE [...] at the lateral malleolar fracture site. Normal [facility] XR FOOT 3+ VIEWS LEFTon 09-04 [...] at the lateral malleolar fracture site. Normal [facility] 36on 09-03-2023 36 Left distal fibula f x doi 07/02/23 she is in a boot. Can only be seen in [place] or [place]. No wads Normal [facility] 36on 09-02-2023 36 Gareth an RN at [facility] called [phone] ext 2008, he states that they just got Gumaro from [place] and they are looking for her to [...] today and then works again tomorrow. Normal [address] 07-17-2023 36 LVM to schedule with Dr. Uerña on Thursday at 1pm in [facility] or 9am in [place] if not already double booked. Normal [facility] .Auto DiffOrdered By: SYSTEM SYSTEM on 07-04-2023 Basophil, Absolute 0.0 103/mcL Normal 0.0-0.2 AO Wo rkflow SS Comment on above: Performed By: #### L IPID, ADIFF, ANEU, CMP, CBC, GFR #### Varun [address] [place], [place] [address] Basophils/100 WBC (Bld) 0.4 % Normal 0.0-2.5 A O Workflow SS Comment on above: Performed By: #### L IPID, ADIFF, ANEU, CMP, CBC, GFR #### [address] [address] Eosinophil, Absolute 0.4 103/mcL Normal 0.0-0.4 AO Workflow SS Comment on above: Performed By: #### L IPID, ADIFF, ANEU, CMP, CBC, GFR #### [address] [address] Eosinophils/100 WBC (Bld) 6.9 % Normal 0.0-7.0 AO Workflow SS Comment on above: Performed By: #### L IPID, ADIFF, ANEU, CMP, CBC, GFR #### [address] [address] Lymphocyte, Absolute 1.7 103/mcL Normal 0.8-3.9 AO Workflow SS Comment on above: Performed By: #### L IPID, ADIFF, ANEU, CMP, CBC, GFR #### [address] [address] Lymphocytes/100 WBC (Bld) 27.3 % Normal 10.0-50.0 AO Workflow SS Comment on above: Performed By: #### L IPID, ADIFF, ANEU, CMP, CBC, GFR #### [address] [address] Monocyte, Absolute 0.4 103/mcL Normal 0.2-1.0 AO Wo rkflow SS Comment on above: Performed By: #### L IPID, ADIFF, ANEU, CMP, CBC, GFR #### [address] [address] Monocytes/100 WBC (Bld) 6.4 % Normal 1.7-13.0 A O Workflow SS Comment on above: Performed By: #### L IPID, ADIFF, ANEU, CMP, CBC, GFR #### [address] [address] Neutrophils/100 WBC (Bld) 59.0 % Normal 37.0-80.0 AO Workflow SS Comment on above: Performed By: #### L IPID, ADIFF, ANEU, CMP, CBC, GFR #### [address] [address] .GFRon 07-04-2023 GFR 93 ml/min/1.73sqm Normal [facility] [place] Comment on above: Result Comment: GFR Population [...] ADIFF, ANEU, CMP, CBC, GFR #### Varun [address] [address] GFR Non- 77 ml/min/1.73sqm Normal [facility] [place] Comment on above: Result Comment: GFR Population [...] ADIFF, ANEU, CMP, CBC, GFR #### Varun [address] [address] .NEUABSOrdered By: SYSTEM SY STEM on 07-04-2023 Neutrophil, Absolute 3.7 103/mcL Normal 2.9-6.2 AO Workflow SS Comment on above: Performed By: #### L IPID, ADIFF, ANEU, CMP, CBC, GFR #### [address] [address] BMPon 07-04-2023 BUN/Creatinine Ratio 14 ratio Normal 7-27 [facility] ([place] Comment on above: Performed By: #### L IPID, ADIFF, ANEU, CMP, CBC, GFR #### [address] [address] BMPOrdered By: SYSTEM SYSTEM on 07-04-2023 Calcium [Mass/Vol] 8.1 mg/dL Low 8.4-10.2 AO ADM SS Comment on above: Performed By: #### L IPID, ADIFF, ANEU, CMP, CBC, GFR #### [place] [address] Chloride [Moles/Vol] 104 mmol/L Normal 98-107 AO A DM SS Comment on above: Performed By: #### L IPID, ADIFF, ANEU, CMP, CBC, GFR #### [place] [id number] CO2 [Moles/Vol] 29 mmol/L Normal 23-31 AO ADM SS Comment on above: Performed By: #### L IPID, ADIFF, ANEU, CMP, CBC, GFR #### [place] [id number] Creatinine [Mass/Vol] 0.73 mg/dL Normal 0.55-1.02 AO ADM SS Comment on above: Performed By: #### L IPID, ADIFF, ANEU, CMP, CBC, GFR #### [place] [id number] Electrolyte Balance 6.0 mEq/L Normal 4.0-15.0 AO AD M SS Comment on above: Performed By: #### L IPID, ADIFF, ANEU, CMP, CBC, GFR #### [place] [id number] Glucose [Mass/Vol] 145 mg/dL High 83-110 AO ADM SS Comment on above: Performed By: #### L IPID, ADIFF, ANEU, CMP, CBC, GFR #### [place] [id number] Potassium [Moles/Vol] 4.9 mmol/L Normal 3.5-5.1 AO ADM SS Comment on above: Performed By: #### L IPID, ADIFF, ANEU, CMP, CBC, GFR #### Varun [place] [id number] Sodium [Moles/Vol] 139 mmol/L Normal 136-145 AO ADM SS Comment on above: Performed By: #### L IPID, ADIFF, ANEU, CMP, CBC, GFR #### Varun [place] [address] Urea nitrogen [Mass/Vol] 10 mg/dL Normal 7-18 AO ADM SS Comment on above: Performed By: #### L IPID, ADIFF, ANEU, CMP, CBC, GFR #### [place] [id number] CBCOrdered By: SYSTEM SYSTEM on 07-04-2023 Erythrocyte distribution width (RBC) [Ratio] 14.2 % Normal 11.5-14.5 AO Workflow SS Comment on above: Performed By: #### L IPID, ADIFF, ANEU, CMP, CBC, GFR #### [place] [id number] Hematocrit (Bld) [Volume fraction] 35.4 % Low 37.0-47.0 AO Workflow SS Comment on above: Performed By: #### L IPID, ADIFF, ANEU, CMP, CBC, GFR #### [place] [address] MCH (RBC) [Entitic mass] 28.7 pg Normal 27.0-31.2 AO Workflow SS Comment on above: Performed By: #### L IPID, ADIFF, ANEU, CMP, CBC, GFR #### [place] [address] MCHC 32.4 G/dL Low 33.0-37.0 AO Workflow SS Comment on above: Performed By: #### L IPID, ADIFF, ANEU, CMP, CBC, GFR #### [place] [id number] MCV (RBC) [Entitic vol] 88.6 fL Normal 80.0-94.0 A O Workflow SS Comment on above: Performed By: #### L IPID, ADIFF, ANEU, CMP, CBC, GFR #### [address] [address] Platelet mean volume (Bld) [Entitic vol] 6.5 fL Low 7.4-10.4 AO Workflow SS Comment on above: Performed By: #### L IPID, ADIFF, ANEU, CMP, CBC, GFR #### [address] [address] CBCon 07-04-2023 Hgb 11.4 G/dL Low 12.0-16.0 [facility] [place] Comment on above: Performed By: #### L IPID, ADIFF, ANEU, CMP, CBC, GFR #### [address] [address] Platelet 165 10 3/mcL Normal 130-400 [facility] [place] Comment on above: Performed By: #### L IPID, ADIFF, ANEU, CMP, CBC, GFR #### [address] [address] RBC 3.99 10 6/mcL Low 4.20-5.40 [facility] [place] Comment on above: Performed By: #### L IPID, ADIFF, ANEU, CMP, CBC, GFR #### [address] [address] WBC 6.3 10 3/mcL Normal 4.6-10.8 [facility] [place] Comment on above: Performed By: #### L IPID, ADIFF, ANEU, CMP, CBC, GFR #### [address] [address] LABORATORYOrdered By: Darwin Diaz on 07-04-2023 Blood Glucose Testing Reason Routine (07/04/23 4:36 PM) [facility] Work Phone: Glucose [Mass/Vol] 125 mg/dL Invalid Interpretation Code 82 - 115 mg/dL [facility] Work Phone: Blood Glucose Testing Reason Routine (07/04/23 10:38 AM) [facility] Work Phone: LABORATORYOrdered By: Loretta Mejia on 07-04-2023 Glucose [Mass/Vol] 140 mg/dL Invalid Interpretation Code 82 - 115 mg/dL [facility] Work Phone: Glucose [Mass/Vol] 139 mg/dL Invalid Interpretation Code 82 - 115 mg/dL [facility] Work Phone: LABORATORYOrdered By: SYSTEM SYSTEM [...] IPID, ADIFF, ANEU, CMP, CBC, GFR #### [address] [address] .Auto Diffon 07-03-2023 Basophil, Absolute 0.0 10 3/mcL Normal 0.0-0.2 [facility] ([place] Comment on above: Performed By: #### L IPID, ADIFF, ANEU, CMP, CBC, GFR #### [address] [address] Basophils/100 WBC (Bld) 0.5 % Normal 0.0-2.5 [facility] ([place]) Comment on above: Performed By: #### L IPID, ADIFF, ANEU, CMP, CBC, GFR #### [address] [address] Eosinophil, Absolute 0.4 10 3/mcL Normal 0.0-0.4 [facility] ([place] Comment on above: Performed By: #### L IPID, ADIFF, ANEU, CMP, CBC, GFR #### [address] [place] [address] Eosinophils/100 WBC (Bld) 6.7 % Normal 0.0-7.0 [facility] [place] Comment on above: Performed By: #### L IPID, ADIFF, ANEU, CMP, CBC, GFR #### [address] [address] Lymphocyte, Absolute 1.8 10 3/mcL Normal 0.8-3.9 [facility] ([place] Comment on above: Performed By: #### L IPID, ADIFF, ANEU, CMP, CBC, GFR #### [address] [address] Lymphocytes/100 WBC (Bld) 31.4 % Normal 10.0-50.0 [facility] [place] Comment on above: Performed By: #### L IPID, ADIFF, ANEU, CMP, CBC, GFR #### [address] [address] Monocyte, Absolute 0.4 10 3/mcL Normal 0.2-1.0 [facility] ([place] Comment on above: Performed By: #### L IPID, ADIFF, ANEU, CMP, CBC, GFR #### [address] [address] Monocytes/100 WBC (Bld) 6.4 % Normal 1.7-13.0 [facility] ([place] Comment on above: Performed By: #### L IPID, ADIFF, ANEU, CMP, CBC, GFR #### [address] [address] Neutrophils/100 WBC (Bld) 55.0 % Normal 37.0-80.0 [facility] [place] Comment on above: Performed By: #### L IPID, ADIFF, ANEU, CMP, CBC, GFR #### [address] [address] .GFRon 07-03-2023 GFR 92 ml/min/1.73sqm Normal [facility] [place] Comment on above: Result Comment: GFR Population [...] IPID, ADIFF, ANEU, CMP, CBC, GFR #### [address] [address] GFR Non- 76 ml/min/1.73sqm Normal [facility] [place] Comment on above: Result Comment: GFR Population [...] IPID, ADIFF, ANEU, CMP, CBC, GFR #### [address] [address] .NEUABSon 07-03-2023 Neutrophil, Absolute 3.2 10 3/mcL Normal 2.9-6.2 [facility] ([place] Comment on above: Performed By: #### L IPID, ADIFF, ANEU, CMP, CBC, GFR #### [address] [address] BMPon 07-03-2023 BUN/Creatinine Ratio 11 ratio Normal 7-27 [facility] ([place] Comment on above: Performed By: #### L IPID, ADIFF, ANEU, CMP, CBC, GFR #### [address] [address] Calcium [Mass/Vol] 8.4 mg/dL Normal 8.4-10.2 [facility] ([place] Comment on above: Performed By: #### L IPID, ADIFF, ANEU, CMP, CBC, GFR #### [address] [address] Chloride [Moles/Vol] 103 mmol/L Normal 98-107 [facility] ([place] Comment on above: Performed By: #### L IPID, ADIFF, ANEU, CMP, CBC, GFR #### [address] [address] CO2 [Moles/Vol] 31 mmol/L Normal 23-31 [facility] [place] Comment on above: Performed By: #### L IPID, ADIFF, ANEU, CMP, CBC, GFR #### [address] [address] Creatinine [Mass/Vol] 0.74 mg/dL Normal 0.55-1.02 [facility] ([place]) Comment on above: Performed By: #### L IPID, ADIFF, ANEU, CMP, CBC, GFR #### [address] [address] Electrolyte Balance 6.0 mEq/L Normal 4.0-15.0 [facility] ([place] Comment on above: Performed By: #### L IPID, ADIFF, ANEU, CMP, CBC, GFR #### [address] [address] Glucose [Mass/Vol] 165 mg/dL High 83-110 [facility] ([place] Comment on above: Performed By: #### L IPID, ADIFF, ANEU, CMP, CBC, GFR #### [address] [address] Potassium [Moles/Vol] 4.6 mmol/L Normal 3.5-5.1 [facility] ([place] Comment on above: Performed By: #### L IPID, ADIFF, ANEU, CMP, CBC, GFR #### [address] [address] Sodium [Moles/Vol] 140 mmol/L Normal 136-145 [facility] ([place] Comment on above: Performed By: #### L IPID, ADIFF, ANEU, CMP, CBC, GFR #### [place] [address] Urea nitrogen [Mass/Vol] 8 mg/dL Normal 7-18 [facility] [place] Comment on above: Performed By: #### L IPID, ADIFF, ANEU, CMP, CBC, GFR #### [place] [address] CBCon 07-03-2023 Erythrocyte distribution width (RBC) [Ratio] 14.4 % Normal 11.5-14.5 [facility] [place] Comment on above: Performed By: #### L IPID, ADIFF, ANEU, CMP, CBC, GFR #### [place] [address] Hematocrit (Bld) [Volume fraction] 36.4 % Low 37.0-47.0 [facility] [place] Comment on above: Performed By: #### L IPID, ADIFF, ANEU, CMP, CBC, GFR #### [place] [address] Hgb 11.6 G/dL Low 12.0-16.0 [facility] [place] Comment on above: Performed By: #### L IPID, ADIFF, ANEU, CMP, CBC, GFR #### [place] [address] MCH (RBC) [Entitic mass] 28.3 pg Normal 27.0-31.2 [facility] [place] Comment on above: Performed By: #### L IPID, ADIFF, ANEU, CMP, CBC, GFR #### [place] [address] MCHC 31.9 G/dL Low 33.0-37.0 [facility] [place] Comment on above: Performed By: #### L IPID, ADIFF, ANEU, CMP, CBC, GFR #### [address] [address] MCV (RBC) [Entitic vol] 88.9 fL Normal 80.0-94.0 [facility] ([place] Comment on above: Performed By: #### L IPID, ADIFF, ANEU, CMP, CBC, GFR #### [address] [address] Platelet 158 10 3/mcL Normal 130-400 [facility] [place] Comment on above: Performed By: #### L IPID, ADIFF, ANEU, CMP, CBC, GFR #### [address] [address] Platelet mean volume (Bld) [Entitic vol] 6.6 fL Low 7.4-10.4 [facility] [place] Comment on above: Performed By: #### L IPID, ADIFF, ANEU, CMP, CBC, GFR #### [address] [address] RBC 4.10 10 6/mcL Low 4.20-5.40 [facility] [place] Comment on above: Performed By: #### L IPID, ADIFF, ANEU, CMP, CBC, GFR #### [address] [address] WBC 5.8 10 3/mcL Normal 4.6-10.8 [facility] [place] Comment on above: Performed By: #### L IPID, ADIFF, ANEU, CMP, CBC, GFR #### [address] [address] LABORATORYOrdered By: Jose Shepard on 07-03-2023 Blood Glucose Testing Reason Routine (07/03/23 9:10 PM) [facility] Work Phone: LABORATORYOrdered By: SYSTEM SYSTEM [...] 07-03-2023 Magnesium [Mass/Vol] 1.8 mg/dL Normal 1.8-2.4 [facility] ([place] Comment on above: Performed By: #### L IPID, ADIFF, ANEU, CMP, CBC, GFR #### [place] [address] .Auto Diffon 07-02-2023 Basophil, Absolute 0.0 10 3/mcL Normal 0.0-0.2 [facility] ([place] Comment on above: Performed By: #### A DIFF, MG, ANEU, GFR, BMP, CBC #### [address] [address] Basophils/100 WBC (Bld) 0.7 % Normal 0.0-2.5 [facility] ([place] Comment on above: Performed By: #### A DIFF, MG, ANEU, GFR, BMP, CBC #### [address] [address] Eosinophil, Absolute 0.3 10 3/mcL Normal 0.0-0.4 [facility] ([place] Comment on above: Performed By: #### A DIFF, MG, ANEU, GFR, BMP, CBC #### [address] [address] Eosinophils/100 WBC (Bld) 5.6 % Normal 0.0-7.0 [facility] [place] Comment on above: Performed By: #### A DIFF, MG, ANEU, GFR, BMP, CBC #### [address] [address] Lymphocyte, Absolute 1.8 10 3/mcL Normal 0.8-3.9 [facility] ([place] Comment on above: Performed By: #### A DIFF, MG, ANEU, GFR, BMP, CBC #### [address] [address] Lymphocytes/100 WBC (Bld) 33.2 % Normal 10.0-50.0 [facility] [place] Comment on above: Performed By: #### A DIFF, MG, ANEU, GFR, BMP, CBC #### [address] [address] Monocyte, Absolute 0.4 10 3/mcL Normal 0.2-1.0 [facility] ([place] Comment on above: Performed By: #### A DIFF, MG, ANEU, GFR, BMP, CBC #### [address] [address] Monocytes/100 WBC (Bld) 7.8 % Normal 1.7-13.0 [facility] ([place] Comment on above: Performed By: #### A DIFF, MG, ANEU, GFR, BMP, CBC #### [address] [address] Neutrophils/100 WBC (Bld) 52.7 % Normal 37.0-80.0 [facility] [place] Comment on above: Performed By: #### A DIFF, MG, ANEU, GFR, BMP, CBC #### [address] [address] .GFRon 07-02-2023 GFR 85 ml/min/1.73sqm Normal [facility] [place] Comment on above: Result Comment: GFR Population [...] IPID, ADIFF, ANEU, CMP, CBC, GFR #### [address] [address] GFR Non- 70 ml/min/1.73sqm Normal [facility] ([place] Comment on above: Result Comment: GFR Population [...] IPID, ADIFF, ANEU, CMP, CBC, GFR #### [address] [address] .NEUABSon 07-02-2023 Neutrophil, Absolute 2.9 10 3/mcL Normal 2.9-6.2 [facility] ([place] Comment on above: Performed By: #### A DIFF, MG, ANEU, GFR, BMP, CBC #### [address] [address] BMPon 07-02-2023 BUN/Creatinine Ratio 11 ratio Normal 7-27 [facility] ([place] Comment on above: Performed By: #### A DIFF, MG, ANEU, GFR, BMP, CBC #### [address] [address] Calcium [Mass/Vol] 8.5 mg/dL Normal 8.4-10.2 [facility] ([place] Comment on above: Performed By: #### A DIFF, MG, ANEU, GFR, BMP, CBC #### [address] [address] Chloride [Moles/Vol] 102 mmol/L Normal 98-107 [facility] ([place] Comment on above: Performed By: #### A DIFF, MG, ANEU, GFR, BMP, CBC #### [place] [address] CO2 [Moles/Vol] 31 mmol/L Normal 23-31 [facility] [place] Comment on above: Performed By: #### A DIFF, MG, ANEU, GFR, BMP, CBC #### [address] [address] Creatinine [Mass/Vol] 0.79 mg/dL Normal 0.55-1.02 [facility] ([place]) Comment on above: Performed By: #### A DIFF, MG, ANEU, GFR, BMP, CBC #### [address] [address] Electrolyte Balance 5.0 mEq/L Normal 4.0-15.0 [facility] ([place] Comment on above: Performed By: #### A DIFF, MG, ANEU, GFR, BMP, CBC #### [address] [address] Glucose [Mass/Vol] 144 mg/dL High 83-110 [facility] ([place] Comment on above: Performed By: #### A DIFF, MG, ANEU, GFR, BMP, CBC #### [address] [address] Potassium [Moles/Vol] 3.9 mmol/L Normal 3.5-5.1 [facility] ([place]) Comment on above: Performed By: #### A DIFF, MG, ANEU, GFR, BMP, CBC #### [address] [address] Sodium [Moles/Vol] 138 mmol/L Normal 136-145 [facility] ([place] Comment on above: Performed By: #### A DIFF, MG, ANEU, GFR, BMP, CBC #### [place] [address] Urea nitrogen [Mass/Vol] 9 mg/dL Normal 7-18 [facility] [place] Comment on above: Performed By: #### A DIFF, MG, ANEU, GFR, BMP, CBC #### [place] [address] CBCon 07-02-2023 Erythrocyte distribution width (RBC) [Ratio] 14.6 % High 11.5-14.5 [facility] [place] Comment on above: Performed By: #### A DIFF, MG, ANEU, GFR, BMP, CBC #### [place] [address] Hematocrit (Bld) [Volume fraction] 35.7 % Low 37.0-47.0 [facility] [place] Comment on above: Performed By: #### A DIFF, MG, ANEU, GFR, BMP, CBC #### [place] [address] Hgb 11.3 G/dL Low 12.0-16.0 [facility] [place] Comment on above: Performed By: #### A DIFF, MG, ANEU, GFR, BMP, CBC #### [place] [address] MCH (RBC) [Entitic mass] 28.1 pg Normal 27.0-31.2 [facility] [place] Comment on above: Performed By: #### A DIFF, MG, ANEU, GFR, BMP, CBC #### [place] [address] MCHC 31.7 G/dL Low 33.0-37.0 [facility] [place] Comment on above: Performed By: #### A DIFF, MG, ANEU, GFR, BMP, CBC #### [address] [address] MCV (RBC) [Entitic vol] 88.6 fL Normal 80.0-94.0 [facility] ([place] Comment on above: Performed By: #### A DIFF, MG, ANEU, GFR, BMP, CBC #### [address] [address] Platelet 159 10 3/mcL Normal 130-400 [facility] [place] Comment on above: Performed By: #### A DIFF, MG, ANEU, GFR, BMP, CBC #### [address] [address] Platelet mean volume (Bld) [Entitic vol] 6.6 fL Low 7.4-10.4 [facility] [place] Comment on above: Performed By: #### A DIFF, MG, ANEU, GFR, BMP, CBC #### [place] [id number] RBC 4.03 10 6/mcL Low 4.20-5.40 [facility] [place] Comment on above: Performed By: #### A DIFF, MG, ANEU, GFR, BMP, CBC #### [address] [address] WBC 5.5 10 3/mcL Normal 4.6-10.8 [facility] [place] Comment on above: Performed By: #### A DIFF, MG, ANEU, GFR, BMP, CBC #### [address] [address] LABORATORYOrdered By: SYSTEM SYSTEM on 07-02-2023 Basophil, [...] 07-02-2023 Magnesium [Mass/Vol] 1.7 mg/dL Low 1.8-2.4 [facility] ([place] Comment on above: Performed By: #### L IPID, ADIFF, ANEU, CMP, CBC, GFR #### [address] [address] .Auto Diffon 07-01-2023 Basophil, Absolute 0.0 10 3/mcL Normal 0.0-0.2 [facility] ([place] Comment on above: Performed By: #### L IPID, ADIFF, ANEU, CMP, CBC, GFR #### [address] [address] Basophils/100 WBC (Bld) 0.5 % Normal 0.0-2.5 [facility] ([place] Comment on above: Performed By: #### L IPID, ADIFF, ANEU, CMP, CBC, GFR #### [address] [address] Eosinophil, Absolute 0.4 10 3/mcL Normal 0.0-0.4 [facility] ([place] Comment on above: Performed By: #### L IPID, ADIFF, ANEU, CMP, CBC, GFR #### [address] [address] Eosinophils/100 WBC (Bld) 5.7 % Normal 0.0-7.0 [facility] [place] Comment on above: Performed By: #### L IPID, ADIFF, ANEU, CMP, CBC, GFR #### [address] [address] Lymphocyte, Absolute 1.9 10 3/mcL Normal 0.8-3.9 [facility] (PR) Comment on above: Performed By: #### L IPID, ADIFF, ANEU, CMP, CBC, GFR #### [address] [address] Lymphocytes/100 WBC (Bld) 28.0 % Normal 10.0-50.0 [facility] ([place]) Comment on above: Performed By: #### L IPID, ADIFF, ANEU, CMP, CBC, GFR #### [address] [address] Monocyte, Absolute 0.5 10 3/mcL Normal 0.2-1.0 [facility] ([place]) Comment on above: Performed By: #### L IPID, ADIFF, ANEU, CMP, CBC, GFR #### [address] [address] Monocytes/100 WBC (Bld) 6.9 % Normal 1.7-13.0 [facility] ([place]) Comment on above: Performed By: #### L IPID, ADIFF, ANEU, CMP, CBC, GFR #### [address] [address] Neutrophils/100 WBC (Bld) 58.9 % Normal 37.0-80.0 [facility] ([place]) Comment on above: Performed By: #### L IPID, ADIFF, ANEU, CMP, CBC, GFR #### [address] [address] .GFRon 07-01-2023 GFR 73 ml/min/1.73sqm Normal [facility] ([place]) Comment on above: Result Comment: GFR Population [...] IPID, ADIFF, ANEU, CMP, CBC, GFR #### [address] [address] GFR Non- 60 ml/min/1.73sqm Normal [facility] ([place]) Comment on above: Result Comment: GFR Population [...] IPID, ADIFF, ANEU, CMP, CBC, GFR #### [address] [address] .NEUABSon 07-01-2023 Neutrophil, Absolute 4.1 10 3/mcL Normal 2.9-6.2 [facility] ([place]) Comment on above: Performed By: #### L IPID, ADIFF, ANEU, CMP, CBC, GFR #### [address] [address] BMPon 07-01-2023 BUN/Creatinine Ratio 12 ratio Normal - [facility] ([place]) Comment on above: Performed By: #### L IPID, ADIFF, ANEU, CMP, CBC, GFR #### [address] [address] Calcium [Mass/Vol] 8.5 mg/dL Normal 8.4-10.2 [facility] ([place]) Comment on above: Performed By: #### L IPID, ADIFF, ANEU, CMP, CBC, GFR #### [address] [address] Chloride [Moles/Vol] 103 mmol/L Normal 98-107 [facility] ([place]) Comment on above: Performed By: #### L IPID, ADIFF, ANEU, CMP, CBC, GFR #### [address] [address] CO2 [Moles/Vol] 32 mmol/L High 23-31 [facility] ([place]) Comment on above: Performed By: #### L IPID, ADIFF, ANEU, CMP, CBC, GFR #### [address] [address] Creatinine [Mass/Vol] 0.90 mg/dL Normal 0.55-1.02 [facility] ([place]) Comment on above: Performed By: #### L IPID, ADIFF, ANEU, CMP, CBC, GFR #### [address] [address] Electrolyte Balance 5.0 mEq/L Normal 4.0-15.0 [facility] ([place]) Comment on above: Performed By: #### L IPID, ADIFF, ANEU, CMP, CBC, GFR #### [address] [address] Glucose [Mass/Vol] 138 mg/dL High 83-110 [facility] ([place]) Comment on above: Performed By: #### L IPID, ADIFF, ANEU, CMP, CBC, GFR #### [address] [address] Potassium [Moles/Vol] 4.0 mmol/L Normal 3.5-5.1 [facility] ([place]) Comment on above: Performed By: #### L IPID, ADIFF, ANEU, CMP, CBC, GFR #### [address] [address] Sodium [Moles/Vol] 140 mmol/L Normal 136-145 [facility] ([place]) Comment on above: Performed By: #### L IPID, ADIFF, ANEU, CMP, CBC, GFR #### [address] [address] Urea nitrogen [Mass/Vol] 11 mg/dL Normal 7-18 [facility] ([place]) Comment on above: Performed By: #### L IPID, ADIFF, ANEU, CMP, CBC, GFR #### [place] [id number] CBCon 07-01-2023 Erythrocyte distribution width (RBC) [Ratio] 14.6 % High 11.5-14.5 [facility] ([place]) Comment on above: Performed By: #### L IPID, ADIFF, ANEU, CMP, CBC, GFR #### [place] [address] Hematocrit (Bld) [Volume fraction] 36.2 % Low 37.0-47.0 [facility] ([place]) Comment on above: Performed By: #### L IPID, ADIFF, ANEU, CMP, CBC, GFR #### [place] [address] Hgb 11.6 G/dL Low 12.0-16.0 [facility] ([place]) Comment on above: Performed By: #### L IPID, ADIFF, ANEU, CMP, CBC, GFR #### [place] [address] MCH (RBC) [Entitic mass] 28.1 pg Normal 27.0-31.2 [facility] ([place]) Comment on above: Performed By: #### L IPID, ADIFF, ANEU, CMP, CBC, GFR #### [place] [address] MCHC 32.0 G/dL Low 33.0-37.0 [facility] ([place]) Comment on above: Performed By: #### L IPID, ADIFF, ANEU, CMP, CBC, GFR #### [place] [address] MCV (RBC) [Entitic vol] 87.8 fL Normal 80.0-94.0 [facility] ([place]) Comment on above: Performed By: #### L IPID, ADIFF, ANEU, CMP, CBC, GFR #### [address] [address] Platelet 170 10 3/mcL Normal 130-400 [facility] ([place]) Comment on above: Performed By: #### L IPID, ADIFF, ANEU, CMP, CBC, GFR #### [address] [address] Platelet mean volume (Bld) [Entitic vol] 6.4 fL Low 7.4-10.4 [facility] ([place]) Comment on above: Performed By: #### L IPID, ADIFF, ANEU, CMP, CBC, GFR #### [address] [address] RBC 4.12 10 6/mcL Low 4.20-5.40 [facility] ([place]) Comment on above: Performed By: #### L IPID, ADIFF, ANEU, CMP, CBC, GFR #### [address] [address] WBC 6.9 10 3/mcL Normal 4.6-10.8 [facility] ([place]) Comment on above: Performed By: #### L IPID, ADIFF, ANEU, CMP, CBC, GFR #### [address] [address] MGon 07-01-2023 Magnesium [Mass/Vol] 1.5 mg/dL Low 1.8-2.4 [facility] (PR) Comment on above: Performed By: #### L IPID, ADIFF, ANEU, CMP, CBC, GFR #### [address] [address] .Auto Diffon 06-30-2023 Basophil, Absolute 0.0 10 3/mcL Normal 0.0-0.2 [facility] ([place]) Comment on above: Performed By: #### L IPID, ADIFF, ANEU, CMP, CBC, GFR #### [address] [address] Basophils/100 WBC (Bld) 0.4 % Normal 0.0-2.5 [facility] ([place]) Comment on above: Performed By: #### L IPID, ADIFF, ANEU, CMP, CBC, GFR #### [address] [address] Eosinophil, Absolute 0.5 10 3/mcL High 0.0-0.4 [facility] ([place]) Comment on above: Performed By: #### L IPID, ADIFF, ANEU, CMP, CBC, GFR #### [address] [address] Eosinophils/100 WBC (Bld) 4.7 % Normal 0.0-7.0 [facility] ([place]) Comment on above: Performed By: #### L IPID, ADIFF, ANEU, CMP, CBC, GFR #### [address] [address] Lymphocyte, Absolute 1.7 10 3/mcL Normal 0.8-3.9 [facility] ([place]) Comment on above: Performed By: #### L IPID, ADIFF, ANEU, CMP, CBC, GFR #### [address] [address] Lymphocytes/100 WBC (Bld) 17.7 % Normal 10.0-50.0 [facility] ([place]) Comment on above: Performed By: #### L IPID, ADIFF, ANEU, CMP, CBC, GFR #### [address] [address] Monocyte, Absolute 0.5 10 3/mcL Normal 0.2-1.0 [facility] ([place]) Comment on above: Performed By: #### L IPID, ADIFF, ANEU, CMP, CBC, GFR #### [address] [address] Monocytes/100 WBC (Bld) 5.4 % Normal 1.7-13.0 [facility] ([place]) Comment on above: Performed By: #### L IPID, ADIFF, ANEU, CMP, CBC, GFR #### [address] [address] Neutrophils/100 WBC (Bld) 71.8 % Normal 37.0-80.0 [facility] ([place]) Comment on above: Performed By: #### L IPID, ADIFF, ANEU, CMP, CBC, GFR #### [address] [address] .GFRon 06-30-2023 GFR 75 ml/min/1.73sqm Normal [facility] ([place]) Comment on above: Result Comment: GFR Population [...] IPID, ADIFF, ANEU, CMP, CBC, GFR #### [address] [address] GFR Non- 62 ml/min/1.73sqm Normal [facility] ([place]) Comment on above: Result Comment: GFR Population [...] IPID, ADIFF, ANEU, CMP, CBC, GFR #### [address] [address] .MDWon 06-30-2023 Monocyte Distribution Width 17.82 Normal 0.00-20.00 [facility] ([place]) Comment on above: Result Comment: For ED adult patients suspected of sepsis, MDW<=20.0 does not rule out sepsis or risk of sepsis Performed By: #### L IPID, ADIFF, ANEU, CMP, CBC, GFR #### [place] [address] .NEUABSon 06-30-2023 Neutrophil, Absolute 7.1 10 3/mcL High 2.9-6.2 [facility] ([place]) Comment on above: Performed By: #### L IPID, ADIFF, ANEU, CMP, CBC, GFR #### [place] [address] BMPon 06-30-2023 BUN/Creatinine Ratio 10 ratio Normal 7-27 [facility] ([place]) Comment on above: Performed By: #### L IPID, ADIFF, ANEU, CMP, CBC, GFR #### [place] [address] Calcium [Mass/Vol] 9.0 mg/dL Normal 8.4-10.2 [facility] ([place]) Comment on above: Performed By: #### L IPID, ADIFF, ANEU, CMP, CBC, GFR #### [place] [address] Chloride [Moles/Vol] 100 mmol/L Normal 98-107 [facility] ([place]) Comment on above: Performed By: #### L IPID, ADIFF, ANEU, CMP, CBC, GFR #### [place] [address] CO2 [Moles/Vol] 33 mmol/L High 23-31 [facility] ([place]) Comment on above: Performed By: #### L IPID, ADIFF, ANEU, CMP, CBC, GFR #### [place] [address] [place], [place] [address] Creatinine [Mass/Vol] 0.88 mg/dL Normal 0.55-1.02 [facility] ([place]) Comment on above: Performed By: #### L IPID, ADIFF, ANEU, CMP, CBC, GFR #### [address] [address] Electrolyte Balance 6.0 mEq/L Normal 4.0-15.0 [facility] ([place]) Comment on above: Performed By: #### L IPID, ADIFF, ANEU, CMP, CBC, GFR #### [address] [address] Glucose [Mass/Vol] 147 mg/dL High 83-110 [facility] ([place]) Comment on above: Performed By: #### L IPID, ADIFF, ANEU, CMP, CBC, GFR #### [address] [address] Potassium [Moles/Vol] 3.8 mmol/L Normal 3.5-5.1 [facility] ([place]) Comment on above: Performed By: #### L IPID, ADIFF, ANEU, CMP, CBC, GFR #### [address] [address] Sodium [Moles/Vol] 139 mmol/L Normal 136-145 [facility] ([place]) Comment on above: Performed By: #### L IPID, ADIFF, ANEU, CMP, CBC, GFR #### [address] [address] Urea nitrogen [Mass/Vol] 9 mg/dL Normal 7-18 [facility] ([place]) Comment on above: Performed By: #### L IPID, ADIFF, ANEU, CMP, CBC, GFR #### [address] [address] CBCon 06-30-2023 Erythrocyte distribution width (RBC) [Ratio] 14.6 % High 11.5-14.5 [facility] ([place]) Comment on above: Performed By: #### L IPID, ADIFF, ANEU, CMP, CBC, GFR #### [address] [address] Hematocrit (Bld) [Volume fraction] 42.0 % Normal 37.0-47.0 [facility] ([place]) Comment on above: Performed By: #### L IPID, ADIFF, ANEU, CMP, CBC, GFR #### [address] [address] Hgb 13.4 G/dL Normal 12.0-16.0 [facility] ([place]) Comment on above: Performed By: #### L IPID, ADIFF, ANEU, CMP, CBC, GFR #### [address] [address] MCH (RBC) [Entitic mass] 28.4 pg Normal 27.0-31.2 [facility] ([place]) Comment on above: Performed By: #### L IPID, ADIFF, ANEU, CMP, CBC, GFR #### [place] [address] MCHC 32.0 G/dL Low 33.0-37.0 [facility] ([place]) Comment on above: Performed By: #### L IPID, ADIFF, ANEU, CMP, CBC, GFR #### [address] [address] MCV (RBC) [Entitic vol] 88.5 fL Normal 80.0-94.0 [facility] ([place]) Comment on above: Performed By: #### L IPID, ADIFF, ANEU, CMP, CBC, GFR #### [address] [address] Platelet 188 10 3/mcL Normal 130-400 [facility] ([place]) Comment on above: Performed By: #### L IPID, ADIFF, ANEU, CMP, CBC, GFR #### [address] [address] Platelet mean volume (Bld) [Entitic vol] 6.2 fL Low 7.4-10.4 [facility] ([place]) Comment on above: Performed By: #### L IPID, ADIFF, ANEU, CMP, CBC, GFR #### [address] [address] RBC 4.74 10 6/mcL Normal 4.20-5.40 [facility] ([place]) Comment on above: Performed By: #### L IPID, ADIFF, ANEU, CMP, CBC, GFR #### [address] [address] WBC 9.9 10 3/mcL Normal 4.6-10.8 [facility] ([place]) Comment on above: Performed By: #### L IPID, ADIFF, ANEU, CMP, CBC, GFR #### [address] [address] LABORATORYOrdered By: SYSTEM SYSTEM on 06-30-2023 Monocyte distribution width Auto (Bld) [Entitic vol] 17.82 1 Invalid Interpretation Code 0.00 - 20.00 AO Workflow SS Comment on above: Result Comment: For ED adult patients suspected of sepsis, MDW<=20.0 does not rule out sepsis or risk of sepsis [facility] 06-30-2023 U Creatinine 90.7 mg/dL Normal 28.0-117.0 [facility] ([place]) Comment on above: Performed By: #### L IPID, ADIFF, ANEU, CMP, CBC, GFR #### [address] [address] U Microalb 1927 mcg/dL Normal [facility] ([place]) Comment on above: Performed By: #### L IPID, ADIFF, ANEU, CMP, CBC, GFR #### [address] [address] U Ratio Alb/Cre 21 mcg/mg Normal 0-30 [facility] ([place]) Comment on above: Performed By: #### L IPID, ADIFF, ANEU, CMP, CBC, GFR #### [address] [address] [facility] XR ANKLE AND FOOT 6 VIEWS [...] Date: 06/30/2023 4:00:26 PM [facility]ing [facility] KNEE 1 OR 2 VIEWS LEFTon [...] Nadir Pat MD Preliminary Report By: Nadir Pta MD Electronically signed By Nadir Pat MD Dictated Date: 06/30/2023 4:00:34 PM Prelim Date: 06/30/2023 4:01:46 PM Sign Date: 06/30/2023 4:01:46 PM Ordering Provider: [facility]ENTEALFONZO [facility]) .Auto Diffon 02-05-2023 Basophil, Absolute 0.1 10 3/mcL Normal 0.0-0.2 [facility] ([place]) Comment on above: Performed By: #### L IPID, ADIFF, ANEU, CMP, CBC, GFR #### [address] [address] Basophils/100 WBC (Bld) 0.7 % Normal 0.0-2.5 [facility] ([place]) Comment on above: Performed By: #### L IPID, ADIFF, ANEU, CMP, CBC, GFR #### [address] [address] Eosinophil, Absolute 0.7 10 3/mcL High 0.0-0.4 [facility] ([place]) Comment on above: Performed By: #### L IPID, ADIFF, ANEU, CMP, CBC, GFR #### [address] [address] Eosinophils/100 WBC (Bld) 8.8 % High 0.0-7.0 [facility] ([place]) Comment on above: Performed By: #### L IPID, ADIFF, ANEU, CMP, CBC, GFR #### [address] [address] Lymphocyte, Absolute 2.8 10 3/mcL Normal 0.8-3.9 [facility] ([place]) Comment on above: Performed By: #### L IPID, ADIFF, ANEU, CMP, CBC, GFR #### [address] [address] Lymphocytes/100 WBC (Bld) 34.0 % Normal 10.0-50.0 [facility] ([place]) Comment on above: Performed By: #### L IPID, ADIFF, ANEU, CMP, CBC, GFR #### [address] [address] Monocyte, Absolute 0.6 10 3/mcL Normal 0.2-1.0 [facility] ([place]) Comment on above: Performed By: #### L IPID, ADIFF, ANEU, CMP, CBC, GFR #### [address] [address] Monocytes/100 WBC (Bld) 7.3 % Normal 1.7-13.0 [facility] ([place]) Comment on above: Performed By: #### L IPID, ADIFF, ANEU, CMP, CBC, GFR #### [address] [address] Neutrophils/100 WBC (Bld) 49.2 % Normal 37.0-80.0 [facility] ([place]) Comment on above: Performed By: #### L IPID, ADIFF, ANEU, CMP, CBC, GFR #### [address] [address] .GFRon 02-05-2023 GFR Non- 63 ml/min/1.73sqm Normal [facility] ([place]) Comment on above: Result Comment: GFR Population [...] IPID, ADIFF, ANEU, CMP, CBC, GFR #### [address] [address] GFR 76 ml/min/1.73sqm Normal [facility] ([place]) Comment on above: Result Comment: GFR Population [...] IPID, ADIFF, ANEU, CMP, CBC, GFR #### [place] [address] .NEUABSon 02-05-2023 Neutrophil, Absolute 4.1 10 3/mcL Normal 2.9-6.2 [facility] ([place]) Comment on above: Performed By: #### L IPID, ADIFF, ANEU, CMP, CBC, GFR #### [place] [address] CBCon 02-05-2023 Erythrocyte distribution width (RBC) [Ratio] 14.1 % Normal 11.5-14.5 [facility] ([place]) Comment on above: Performed By: #### L IPID, ADIFF, ANEU, CMP, CBC, GFR #### [place] [address] Hematocrit (Bld) [Volume fraction] 45.2 % Normal 37.0-47.0 [facility] ([place]) Comment on above: Performed By: #### L IPID, ADIFF, ANEU, CMP, CBC, GFR #### [place] [address] Hgb 14.4 G/dL Normal 12.0-16.0 [facility] ([place]) Comment on above: Performed By: #### L IPID, ADIFF, ANEU, CMP, CBC, GFR #### [place] [address] MCH (RBC) [Entitic mass] 26.9 pg Low 27.0-31.2 [facility] ([place]) Comment on above: Performed By: #### L IPID, ADIFF, ANEU, CMP, CBC, GFR #### [place] [address] MCHC 31.8 G/dL Low 33.0-37.0 [facility] ([place]) Comment on above: Performed By: #### L IPID, ADIFF, ANEU, CMP, CBC, GFR #### [address] [address] MCV (RBC) [Entitic vol] 84.7 fL Normal 80.0-94.0 [facility] ([place]) Comment on above: Performed By: #### L IPID, ADIFF, ANEU, CMP, CBC, GFR #### [address] [address] Platelet 237 10 3/mcL Normal 130-400 [facility] ([place]) Comment on above: Performed By: #### L IPID, ADIFF, ANEU, CMP, CBC, GFR #### [address] [address] Platelet mean volume (Bld) [Entitic vol] 6.5 fL Low 7.4-10.4 [facility] ([place]) Comment on above: Performed By: #### L IPID, ADIFF, ANEU, CMP, CBC, GFR #### [place] [address] RBC 5.34 10 6/mcL Normal 4.20-5.40 [facility] ([place]) Comment on above: Performed By: #### L IPID, ADIFF, ANEU, CMP, CBC, GFR #### [place] [id number] WBC 8.3 10 3/mcL Normal 4.6-10.8 [facility] ([place]) Comment on above: Performed By: #### L IPID, ADIFF, ANEU, CMP, CBC, GFR #### [place] [id number] CMPon 02-05-2023 Albumin Level 3.9 G/dL Normal 3.4-4.8 [facility] ([place]) Comment on above: Performed By: #### L IPID, ADIFF, ANEU, CMP, CBC, GFR #### [address] [address] Albumin/Globulin [Mass ratio] 1.3 {ratio} Normal 1.1-2.5 [facility] ([place]) Comment on above: Performed By: #### L IPID, ADIFF, ANEU, CMP, CBC, GFR #### [address] [address] ALP [Catalytic activity/Vol] 65 U/L Normal 40-135 [facility] ([place]) Comment on above: Performed By: #### L IPID, ADIFF, ANEU, CMP, CBC, GFR #### [address] [address] ALT [Catalytic activity/Vol] 20 U/L Normal 14-59 [facility] ([place]) Comment on above: Performed By: #### L IPID, ADIFF, ANEU, CMP, CBC, GFR #### [address] [address] AST [Catalytic activity/Vol] 19 U/L Normal 10-40 [facility] ([place]) Comment on above: Performed By: #### L IPID, ADIFF, ANEU, CMP, CBC, GFR #### [address] [address] Bili Total 0.7 mg/dL Normal 0.2-1.0 [facility] ([place]) Comment on above: Result Comment: Use of this assay is not recommended for patients undergoing treatment with eltrombopag due to the potential for falsely elevated results. Performed By: #### L IPID, ADIFF, ANEU, CMP, CBC, GFR #### [address] [address] BUN/Creatinine Ratio 14 ratio Normal 7-27 [facility] ([place]) Comment on above: Performed By: #### L IPID, ADIFF, ANEU, CMP, CBC, GFR #### [address] [address] Calcium [Mass/Vol] 10.1 mg/dL Normal 8.4-10.2 [facility] ([place]) Comment on above: Performed By: #### L IPID, ADIFF, ANEU, CMP, CBC, GFR #### [place] [address] Chloride [Moles/Vol] 100 mmol/L Normal 98-107 [facility] ([place]) Comment on above: Performed By: #### L IPID, ADIFF, ANEU, CMP, CBC, GFR #### [place] [address] CO2 [Moles/Vol] 33 mmol/L High 23-31 [facility] ([place]) Comment on above: Performed By: #### L IPID, ADIFF, ANEU, CMP, CBC, GFR #### [place] [address] Creatinine [Mass/Vol] 0.87 mg/dL Normal 0.55-1.02 [facility] ([place]) Comment on above: Performed By: #### L IPID, ADIFF, ANEU, CMP, CBC, GFR #### [place] [address] Electrolyte Balance 8.0 mEq/L Normal 4.0-15.0 [facility] ([place]) Comment on above: Performed By: #### L IPID, ADIFF, ANEU, CMP, CBC, GFR #### [place] [address] Globulin 3.0 G/dL Normal [facility] ([place]) Comment on above: Performed By: #### L IPID, ADIFF, ANEU, CMP, CBC, GFR #### [place] [address] Glucose [Mass/Vol] 127 mg/dL High 83-110 [facility] ([place]) Comment on above: Performed By: #### L IPID, ADIFF, ANEU, CMP, CBC, GFR #### [place] [address] Potassium [Moles/Vol] 4.7 mmol/L Normal 3.5-5.1 [facility] ([place]) Comment on above: Performed By: #### L IPID, ADIFF, ANEU, CMP, CBC, GFR #### [place] [address] [place], [place] [address] Sodium [Moles/Vol] 141 mmol/L Normal 136-145 [facility] ([place]) Comment on above: Performed By: #### L IPID, ADIFF, ANEU, CMP, CBC, GFR #### [place] [address] [place], [place] [address] Total Protein 6.9 G/dL Normal 6.4-8.2 [facility] ([place]) Comment on above: Performed By: #### L IPID, ADIFF, ANEU, CMP, CBC, GFR #### [place] [address] [place], [place] [address] Urea nitrogen [Mass/Vol] 12 mg/dL Normal 7-18 [facility] ([place]) Comment on above: Performed By: #### L IPID, ADIFF, ANEU, CMP, CBC, GFR #### [place] [address] [place], [place] [address] LABORATORYOrdered By: SYSTEM SYSTEM on 02-05-2023 Albumin [...] 02-05-2023 Cholesterol [Mass/Vol] 147 mg/dL Normal 0-200 [facility] ([place]) Comment on above: Result Comment: Chol esterol Reference Interval: Less than 200 Desirable 200-239 Borderline high risk 240 and above High risk Performed By: #### L IPID, ADIFF, ANEU, CMP, CBC, GFR #### [place] [address] [place], [place] [address] Cholesterol in HDL [Mass/Vol] 59 mg/dL Normal 40-60 [facility] ([place]) Comment on above: Performed By: #### L IPID, ADIFF, ANEU, CMP, CBC, GFR #### [place] [address] [place], [place] [address] Cholesterol in LDL [Mass/Vol] 54 mg/dL Normal 0-130 [facility] ([place]) Comment on above: Performed By: #### L IPID, ADIFF, ANEU, CMP, CBC, GFR #### [place] [address] [place], [place] [address] Triglyceride [Mass/Vol] 172 mg/dL High 0-150 [facility] ([place]) Comment on above: Result Comment: Trig lyceride Reference Interval: Less than 150 Normal 150-199 Borderline high risk 200-499 High risk 500 or higher Very high risk Performed By: #### L IPID, ADIFF, ANEU, CMP, CBC, GFR #### [address] [address] LABORATORYOrdered By: Karli Benites on 01-29-2022 Albumin [...] Body height 175.26 cm Balwinder Alves MD [facility] 05-17-2025 10:04-0400 Body mass index (BMI) [Ratio] 39.9 kg/m2 Balwinder Alves MD [facility] 05-17-2025 10:04-0400 Body weight 122.46 kg Balwinder Alves MD [facility] 05-17-2025 10:04-0400 Diastolic blood pressure 90 mm[Hg] Balwinder Alves MD [facility] 05-17-2025 10:04-0400 Heart rate 76 /min Balwinder Alves MD [facility] 05-17-2025 10:04-0400 Systolic blood pressure 150 mm[Hg] Balwinder Alves MD [facility] 02-06-2024 20:00-0400 Body temperature 98 [degF] [facility] 02-06-2024 20:00-0400 Diastolic blood pressure 73 mm[Hg] [facility] 02-06-2024 20:00-0400 Heart rate 68 /min [facility] 02-06-2024 20:00-0400 Respiratory rate 18 /min [facility] 02-06-2024 20:00-0400 SaO2% (BldA) [Mass fraction] 97 % [facility] 02-06-2024 20:00-0400 Systolic blood pressure 173 mm[Hg] [facility] 02-06-2024 15:49-0400 Body height 175.26 cm [facility] 02-06-2024 15:49-0400 Body mass index (BMI) [Ratio] 38.9 kg/m2 [facility] 02-06-2024 15:49-0400 Body weight 119.74 kg [facility] 12-09-2023 10:13-0500 Body weight 120.2 kg Tete Trevino PA Work Phone: [facility] 12-09-2023 10:13-0500 Diastolic blood pressure 66 mm[Hg] Tete Trevino PA Work Phone: [facility] 12-09-2023 10:13-0500 Heart rate 69 /min Tete BenavidesGreat East Energyhiral PA Work Phone: [facility] 12-09-2023 10:13-0500 Systolic blood pressure 190 mm[Hg] Tete BenavidesGreat East Energyler PA Work Phone: [facility] 07-16-2023 10:53-0400 Body height 167.64 cm [employer] Laci Brewer [employer] Work Phone: [facility] 07-16-2023 10:53-0400 Body mass index (BMI) [Ratio] 45.8 kg/m2 [employer] Laci Brewer [employer] Work Phone: [facility] 07-16-2023 10:53-0400 Body weight 128.82 kg [employer] Laci Brewer [employer] Work Phone: [facility] 07-04-2023 19:10-0400 Body temperature 98.24 [degF] ROHAN KAPPER FIELD SALES AGENT-INTERACTIVE ART DIRECTOR [facility] 07-04-2023 19:10-0400 Diastolic Blood Pressure Non-Invasive 46 1 ROHAN TREMAYNEER FIELD SALES AGENT-INTERACTIVE ART DIRECTOR [facility] 07-04-2023 19:10-0400 Heart rate 78 /min ROHAN TREMAYNEER FIELD SALES AGENT-INTERACTIVE ART DIRECTOR [facility] 07-04-2023 19:10-0400 Reason For Taking VItal Signs ROHAN JULY FIELD SALES AGENT-INTERACTIVE ART DIRECTOR [facility] 07-04-2023 19:10-0400 Respiratory rate 18 /min ROHAN CASPERER FIELD SALES AGENT-INTERACTIVE ART DIRECTOR [facility] 07-04-2023 19:10-0400 Systolic Blood Pressure Non-Invasive 142 1 ROHAN CASPERER FIELD SALES AGENT-INTERACTIVE ART DIRECTOR [facility] 07-04-2023 16:39-0400 Diastolic Blood Pressure Non-Invasive 60 1 ROHAN TREMAYNEER FIELD SALES AGENT-INTERACTIVE ART DIRECTOR [facility] 07-04-2023 16:39-0400 Systolic Blood Pressure Non-Invasive 158 1 ROHAN TREMAYNEER FIELD SALES AGENT-INTERACTIVE ART DIRECTOR [facility] 07-04-2023 16:22-0400 Body temperature 97.88 [degF] ROHAN CASPERER FIELD SALES AGENT-INTERACTIVE ART DIRECTOR [facility] 07-04-2023 16:22-0400 Diastolic Blood Pressure Non-Invasive 121 1 ROHAN TREMAYNEER FIELD SALES AGENT-INTERACTIVE ART DIRECTOR [facility] 07-04-2023 16:22-0400 Heart rate 72 /min ROHAN ACSPERER FIELD SALES AGENT-INTERACTIVE ART DIRECTOR [facility] 07-04-2023 16:22-0400 Respiratory rate 20 /min ROHAN KAPPER FIELD SALES AGENT-INTERACTIVE ART DIRECTOR [facility] 07-04-2023 16:22-0400 Systolic Blood Pressure Non-Invasive 152 1 ROHAN KAPPER FIELD SALES AGENT-INTERACTIVE ART DIRECTOR [facility] 07-04-2023 12:17-0400 Body temperature 97.88 [degF] ROHAN KAPPER FIELD SALES AGENT-INTERACTIVE ART DIRECTOR [facility] 07-04-2023 12:17-0400 Heart rate 72 /min ROHAN KAPPER FIELD SALES AGENT-INTERACTIVE ART DIRECTOR [facility] 07-04-2023 12:17-0400 Respiratory rate 20 /min ROHAN KAPPER FIELD SALES AGENT-INTERACTIVE ART DIRECTOR [facility] 07-04-2023 11:20-0400 Heart rate 74 /min ROHAN KAPPER FIELD SALES AGENT-INTERACTIVE ART DIRECTOR [facility] 07-04-2023 07:54-0400 Heart rate 74 /min ROHAN KAPPER FIELD SALES AGENT-INTERACTIVE ART DIRECTOR [facility] 07-04-2023 04:11-0400 Heart rate 82 /min ROHAN KAPPER FIELD SALES AGENT-INTERACTIVE ART DIRECTOR [facility] 07-04-2023 04:11-0400 Reason For Taking VItal Signs ROHAN KAPPER FIELD SALES AGENT-INTERACTIVE ART DIRECTOR [facility] 07-03-2023 23:30-0400 Reason For Taking VItal Signs ROHAN KAPPER FIELD SALES AGENT-INTERACTIVE ART DIRECTOR [facility] 07-03-2023 03:07-0400 Heart rate 78 /min ROHAN KAPPER FIELD SALES AGENT-INTERACTIVE ART DIRECTOR [facility] 07-02-2023 22:59-0400 Heart rate 82 /min ROHAN KAPPER FIELD SALES AGENT-INTERACTIVE ART DIRECTOR [facility] 06-30-2023 18:36-0400 Body height 160 cm ROHAN KAPPER FIELD SALES AGENT-INTERACTIVE ART DIRECTOR [facility] 06-30-2023 18:36-0400 Body weight 128 kg ROHAN KAPPER FIELD SALES AGENT-INTERACTIVE ART DIRECTOR [facility] 06-30-2023 18:36-0400 Body weight 50 kg/m2 ROHAN KAPPER FIELD SALES AGENT-INTERACTIVE ART DIRECTOR [facility] 06-30-2023 15:17-0400 Blood Pressure Location ROHAN KAPPER FIELD SALES AGENT-INTERACTIVE ART DIRECTOR [facility] 06-30-2023 15:17-0400 Blood Pressure Method ROHAN KAPPER FIELD SALES AGENT-INTERACTIVE ART DIRECTOR [facility] Encounters Encounter Date Encounter Type Care Provider Facility Start: 06-08-2025 ambulatory Balwinder Alves Facility: [facility] Start: 05-17-2025 End: 05-17-[address] Dorota James MD -[facility] Work Phone: Start: 05-17-2025 End: 05-17-2025 ambulatory Balwinder Alves MD -[facility] Start: 05-17-2025 End: 05-17-2025 ambulatory Balwinder Alves Facility:[facility] Start: 04-04-2025 Non-patient / Non-visit Dr. Dorota taylor MD -[facility] Work Phone: Start: 03-31-2025 End: 03-31-2025 ambulatory Balwinder Alves MD -Cat Scan [facility] Start: 03-31-2025 End: 03-31-[address] Dorota James MD -Cat Scan [facility] Work Phone: Start: 03-31-2025 End: 03-31-2025 ambulatory Balwinder Alves Facility:[facility] Start: 03-16-2025 ambulatory Balwinder MARSHALL Facil ity:[facility] Start: 03-16-2025 Registered Referred Balwinder Alves MD [facility] Start: 03-15-2025 ambulatory Balwinder MARSHALL Facil ity:[facility] Start: 03-15-2025 Registered Referred Balwinder Fontanez [facility] Start: 03-02-2025 ambulatory Balwinder MARSHALL Facil ity:[facility] Start: 03-02-2025 Registered Referred Balwinder Alves MD [facility] Start: 02-07-2025 End: 02-07-2025 ambulatory Balwinder Alves MD [facility] Work Phone: Start: 02-07-2025 End: 02-07-2025 Departed Referred [facility] Start: 02-07-2025 End: 02-07-2025 ambulatory Balwinder MARSHALL Facility:[facility] Start: 01-23-2025 End: 01-23-2025 ambulatory Balwinder Alves MD [facility] Work Phone: Start: 01-23-2025 End: 01-23-2025 Departed Referred Balwinder [facility]anezJayden [facility] Start: 01-23-2025 End: 01-23-2025 ambulatory Balwinder MARSHALL Facility:[facility] Start: 01-09-2025 End: 01-09-2025 ambulatory Balwinder Alves MD [facility] Work Phone: Start: 01-09-2025 End: 01-09-[address] Balwinder Font[facility]Jayden [facility] Start: 01-09-2025 End: 01-09-2025 ambulatory Balwinder MARSHALL Facility:[facility] Start: 01-02-2025 End: 01-02-2025 ambulatory Balwinder Alves MD [facility] Work Phone: Start: 01-02-2025 End: 01-02-2025 Departed Referred Balwinder Mcgrath [facility] Start: 01-02-2025 Registered Referred Balwinder Fontanez [facility] Start: 01-02-2025 End: 01-02-2025 ambulatory Balwinder MARSHALL Facility:[facility] Start: 12-26-2024 End: 12-26-2024 ambulatory Balwinder Alves MD [facility] Work Phone: Start: 12-26-2024 End: 12-26-2024 [facility] Start: 12-26-2024 Registered Referred Balwinder Alves MD [facility] Start: 12-26-2024 End: 12-26-2024 ambulatory Balwinder MARSHALL Facility:[facility] Start: 12-16-2024 End: 12-16-2024 ambulatory Balwinder Alves MD [facility] Work Phone: Start: 12-16-2024 End: 12-16-2024 Departed Referred Balwinder Alves MD -[facility] Start: 12-16-2024 Registered Referred Balwinder Alves MD [facility] Start: 12-16-2024 End: 12-16-2024 ambulatory Balwinder MARSHALL Facility:[facility] Start: 12-14-2024 End: 12-14-2024 ambulatory Balwinder Alves MD [facility] Work Phone: Start: 12-14-2024 End: 12-14-2024 Departed [facility]erred [facility] Start: 12-14-2024 End: 12-14-2024 ambulatory Balwinder MARSHALL Facility:[facility] Start: 10-10-2024 ambulatory Balwinder MARSHALL Facil ity:[facility] Start: 10-10-2024 Registered Referred Balwinder Alves MD [facility] Start: 09-14-2024 End: 09-14-2024 Departed Referred Balwinder [facility]Jayden [facility] Start: 09-14-2024 End: 09-14-2024 ambulatory Balwinder MARSHALL Facility:[facility] Start: 06-14-2024 End: 06-14-2024 ambulatory Balwinder MARSHALL Facility:[facility] Start: 02-06-2024 End: 02-06-2024 Emergency department patient visit [facility] Work Phone: Start: 12-14-2023 End: 12-14-2023 ambulatory [facility] Work Phone: Start: 12-14-2023 End: 12-14-2023 Departed Referred [facility] Start: 12-09-2023 End: 12-09-2023 ambulatory [facility] Start: 12-09-2023 End: 12-09-2023 Office outpatient visit 15 minutes Tete FITZGERALD Work Phone: [facility] Comment on above: Closed fracture of d istal end of left fibula, unspecified fracture morphology, initial encounter (Primary Dx) Start: 11-16-2023 Orders Only Tete FITZGERALD Work Phone: [facility] Comment on above: Closed fracture of d istal end of left fibula, unspecified fracture morphology, initial encounter (Primary Dx) Start: 10-14-2023 End: 10-14-2023 ambulatory [facility] Start: 10-14-2023 End: 10-14-2023 Office outpatient visit 15 minutes Tete FITZGERALD Work Phone: [facility] Comment on above: Closed fracture of d istal end of left fibula, unspecified fracture morphology, initial encounter; Acute left ankle pain Start: 10-09-2023 Orders Only Tete FITZGERALD Work Phone: [facility] Comment on above: Closed fracture of l eft ankle, initial encounter (Primary Dx) Start: 09-23-2023 End: 09-23-2023 ambulatory [employer] Laci Brewer [employer] Work Phone: [facility] Work Phone: Start: 09-23-2023 End: 09-23-2023 Departed Referred [employer] Laci Brewer [employer] Work Phone: [facility] Start: 09-14-2023 End: 09-14-2023 ambulatory [employer] Laci Brewer [employer] Work Phone: [facility] Work Phone: Start: 09-14-2023 End: 09-14-2023 Departed Referred [employer]Sharon Brewer [employer] Work Phone: [facility] Start: 07-17-2023 Telephone encounter Zander Ureña MD Work Phone: [facility] Comment on above: Other (Appt ) Start: 07-16-2023 End: 07-16-2023 Patient encounter procedure [employer]-Sharon Brewer [employer] Work Phone: [facility] Work Phone: Start: 06-30-2023 End: 07-05-2023 ambulatory LACI BREWER FIELD SALES AGENT-INTERACTIVE ART DIRECTOR Facility:B Start: 06-30-2023 End: 07-04-2023 ambulatory ROHAN MCDOWELL FIELD SALES AGENT-INTERACTIVE ART DIRECTOR Facility:[facility] Start: 06-30-2023 End: 07-04-2023 Observation ROHAN MCDOWELL FIELD SALES AGENT-INTERACTIVE ART DIRECTOR [facility] Start: 02-05-2023 End: 02-06-2023 ambulatory LACI BREWER FIELD SALES AGENT-INTERACTIVE ART DIRECTOR Facility:[facility] Start: 02-05-2023 End: 02-05-2023 Patient encounter procedure LACI MENDOZAHARPAL FIELD SALES AGENT-INTERACTIVE ART DIRECTOR [facility] Start: 01-29-2022 End: 01-29-2022 Patient encounter procedure LACI BREWER FIELD SALES AGENT-INTERACTIVE ART DIRECTOR [facility] Start: 07-17-2021 End: 07-17-2021 Patient encounter procedure LACI MENDOZAHARPAL FIELD SALES AGENT-INTERACTIVE ART DIRECTOR [facility] Procedures Date Procedure Procedure Detail Performing Clinician Start: 05-17-2025 Plain X-ray abdomen Javed Alves MD Start: 03-31-2025 CT of abdomen and pe [...] D[place]TON Start: 09-23-2023 Clostridium difficil e detection [employer] Laci Brewer [employer] Work Phone: Start: 07-16-2023 Radiography of ankle [employer] Laci Brewer [employer] Work Phone: Start: 04-04-2023 Extraction of cataract ROHAN MCDOWELL FIELD SALES AGENT-INTERACTIVE ART DIRECTOR Comment on above: Left side Start: 02-09-2020 Ophthalmic examinati on and evaluation LACI BREWER FIELD SALES AGENT-INTERACTIVE ART DIRECTOR Comment on above: No retinopathy; [facility] Start: 03-22-2007 Arthroplasty of knee RY AN OSMAN FIELD SALES AGENT-INTERACTIVE ART DIRECTOR Comment on above: BILATERAL Start: 03-05-2007 Arthroplasty of knee RY ELSIE BREWER FIELD SALES AGENT-INTERACTIVE ART DIRECTOR Start: 10-05-1968 section LACI Neal TOBYKUNAL FIELD SALES AGENT-INTERACTIVE ART DIRECTOR Cataract (disorder) LACI ROWAN FIELD SALES AGENT-INTERACTIVE ART DIRECTOR Comment on above: Right eye Cholecystectomy LACI BREWER FIELD SALES AGENT-INTERACTIVE ART DIRECTOR Hysterectomy LACI BREWER APR N-INTERACTIVE ART DIRECTOR Miscellaneous (quali fier value) ROHAN JULY FIELD SALES AGENT-INTERACTIVE ART DIRECTOR Comment on above: brain drains from br ain bleed 2013 Renal lithotripsy LACI Ramesh FIELD SALES AGENT-INTERACTIVE ART DIRECTOR Sling, device (physi shauna object) LACI BREWER FIELD SALES AGENT-INTERACTIVE ART DIRECTOR Comment on above: Bladder H/o cystocele Tonsillectomy LACI BREWER AP RN-INTERACTIVE ART DIRECTOR Comment on above: as a teenager Plan of Treatment Date Care Activity Detail Author Start: 06-24-2026 DTaP/Tdap/Td Vaccines (2 - Td or Tdap) DTaP/Tdap/Td Vaccines (2 - Td or Tdap) [facility] Start: 01-23-2025 [facility] Start: 01-23-2025 Bacteria identified in Urine by Culture Urine Culture [facility] Start: 01-09-2025 Urine culture Urine Culture [facility] Start: 01-09-2025 [facility] Start: 01-02-2025 [facility] Start: 01-02-2025 Bacteria identified in Urine by Culture Urine Culture [facility] Start: 01-02-2025 Urine culture [facility] Start: 02-06-2024 [facility] Start: 11-25-2023 End: 11-16-2024 XR Ankle - left 3 Views XR ankle 3+ views left Imaging Routine Closed fracture of distal end of left fibula, unspecified fracture morphology, initial encounter Expected: 11/25/2023, Expires: [facility] Comment on above: Expected: 11/25/2023, Expires: 5 Start: 11-25-2023 End: 11-25-2023 Patient encounter procedure 11/25/2023 10:30 AM EST Office Visit [facility] [address] [place] [id number] Tete Trevino PA [address] [place] [id number] [facility] Start: 10-14-2023 End: 10-09-2024 XR Ankle - left 3 Views XR ankle 3+ views left Imaging Routine Closed fracture of left ankle, initial encounter Expected: 10/14/2023, Expires: 10/09/2024 [facility]: Comment on above: Expected: 10/14/2023, Expires: 5 Start: 10-14-2023 End: 10-14-2023 Patient encounter procedure 10/14/2023 10:00 AM EST Office Visit [facility] [address] [place] [phone] Tete Trevino PA [address] [place] [id number] [facility] Start: 10-05-2023 Medicare Advantage Annual Wellness Visit Medicare Advantage Annual Wellness Visit [facility] Start: 06-05-2023 COVID-19 Vaccine ( season) COVID-19 Vaccine ( season) [facility] Start: 06-05-2023 COVID-19 Vaccine () COVID-19 Vaccine ( season) [facility] Start: 06-05-2023 Influenza vaccination Influenza Vaccine (#1) [facility] Start: 06-03-2021 Zoster Vaccines (3 of 3) Zoster Vaccines (3 of 3) [facility] Start: 2008 Pneumococcal Vaccine: 65+ Years (1 - PCV) Pneumococcal Vaccine: 65+ Years (1 - PCV) [facility] Start: 2003 RSV Immunization aged 60 or older (1 - 1-dose 60+ series) RSV Immunization aged 60 or older (1 - 1-dose 60+ series) [facility] Start: 1993 Zoster Vaccines (1 of 2) Zoster Vaccines (1 of 2) [facility] Start: 1962 DTaP/Tdap/Td Vaccines (1 - Tdap) DTaP/Tdap/Td Vaccines (1 - Tdap) [facility] Start: 1955 Depression Screening Depression Screening [facility] Start: 1945 COVID-19 Vaccine (#1) COVID-19 Vaccine (#1) [facility] Start: 1945 Medicare Advantage Annual Wellness Visit (AWV) Medicare Advantage Annual Wellness Visit (AWV) [facility] Start: 1945 Screening for osteoporosis Bone Density Scan [facility] Basic metabolic 2008 panel with ionized calcium - Serum or Plasma [facility] CBC W Auto Different ial panel - Blood [facility] Electrocardiographic procedure [facility] Patient Education ED Abscess Inc ision And Drainage ED Wound Care After Packing ... [facility] Work Phone: Patient referral [facility] Work Phone: Urine culture [facility] XR Abdomen Single view [facility] Immunizations Immunization Date Immunization Notes Care Provider Fa cility 07-03-2022 influenza virus vacc ine, unspecified formulation LACI BREWER FIELD SALES AGENT-INTERACTIVE ART DIRECTOR [facility] 01-14-2022 SARS-CoV-2 mRNA ([id number] e) vaccine LACI BREWER FIELD SALES AGENT-INTERACTIVE ART DIRECTOR [facility] 06-14-2021 influenza virus vacc ine, unspecified formulation LACI BREWER FIELD SALES AGENT-INTERACTIVE ART DIRECTOR [facility] 04-08-2021 zoster vaccine recombinant LACI BREWER FIELD SALES AGENT-INTERACTIVE ART DIRECTOR [facility] 01-01-2021 SARS-CoV-2 (COVID-19 ) mRNA BNT-162b2 vax LACI BREWER FIELD SALES AGENT-INTERACTIVE ART DIRECTOR [facility] 12-10-2020 SARS-CoV-2 (COVID-19 ) mRNA BNT-162b2 vax LACI BREWER FIELD SALES AGENT-INTERACTIVE ART DIRECTOR [facility] Comment on above: Result Comment: 2020: [id number] 05-06-2020 influenza virus vacc ine, unspecified formulation LACI BREWER FIELD SALES AGENT-INTERACTIVE ART DIRECTOR [facility] 05-06-2020 pneumococcal conjuga te vaccine, 13 valent LACI BREWER FIELD SALES [employer] [facility] 07-06-2019 influenza virus vacc ine, unspecified formulation LACI BREWER FIELD SALES AGENT-INTERACTIVE ART DIRECTOR [facility] 09-03-2018 influenza virus vacc ine, unspecified formulation LACI BREWER FIELD SALES AGENT-INTERACTIVE ART DIRECTOR [facility] 08-05-2018 influenza virus vacc ine, unspecified formulation LACI BREWER FIELD SALES AGENT-INTERACTIVE ART DIRECTOR [facility] 07-04-2018 influenza virus vacc ine, unspecified formulation LACI BREWER FIELD SALES AGENT-INTERACTIVE ART DIRECTOR [facility] 06-04-2018 influenza virus vacc ine, unspecified formulation LACI BREWER FIELD SALES AGENT-[facility] 06-23-2017 influenza virus vacc ine, unspecified formulation LACI BREWER FIELD SALES AGENT-INTERACTIVE ART DIRECTOR [facility] 06-10-2017 influenza virus vacc ine, unspecified formulation LACI BREWER FIELD SALES AGENT-[facility] 06-24-2016 influenza virus vacc ine, unspecified formulation LACI BREWER FIELD SALES AGENT-INTERACTIVE ART DIRECTOR [facility] 06-24-2016 tetanus toxoid, redu chivo diphtheria toxoid, and acellular pertussis vaccine, adsorbed LACI BREWER FIELD SALES AGENT-[facility] 07-17-2015 pneumococcal conjuga te vaccine, 13 valent LACI BREWER FIELD SALES AGENT-[facility] 06-19-2015 influenza virus vacc ine, unspecified formulation LACI BREWER FIELD SALES AGENT-[facility] 09-06-2014 influenza virus vacc ine, unspecified formulation LAIC BREWER FIELD SALES AGENT-INTERACTIVE ART DIRECTOR [facility] 06-08-2013 pneumococcal polysaccharide vaccine, 23 valent LACI BREWER FIELD SALES AGENT-INTERACTIVE ART DIRECTOR [facility] 09-01-2012 influenza virus vacc ine, unspecified formulation LACI OSMAN FIELD SALES AGENT-INTERACTIVE ART DIRECTOR [facility] 05-28-2012 zoster vaccine, live LACI MONTEJO FIELD SALES AGENT-INTERACTIVE ART DIRECTOR [facility] Payers Date Payer Category Payer Medicaid [id number] 2024 Self-pay [id number] 2023 Medicare [employer] [id number] 2023-Present [phone] [address] [place] [address] Medicare HMO [id number] 2023 Medicare [id number] 2023 Unknown [id number] 1945 Unknown [id number] 1943 Unknown [id number] 1943 Unknown [id number] Medicare [id number] Unknown [id number] Unknown [id number] [id number] Unknown [id number] [id number] Unknown [id number] [id number] Unknown [id number] [id number] Unknown [id number] [id number] Unknown [id number] 2.16.840.1.247945.3.579.2.462 Unknown [id number] 2.16.840.1.975984.3.579.2.462 Unknown [id number] 2.16.840.1.603693.3.579.2.462 Unknown [id number] 2.16.840.1.600661.3.579.2.462 Unknown [id number] [id number]2 Unknown [id number] [id number] Unknown [id number] [id number] Unknown [id number] [id number] Unknown [id number] [id number] Unknown [id number] [id number] Unknown [id number] [id number] Social History Date Type Detail Facility Start: 04-06-2019 End: 02-06-2024 Ex-smoker (finding) [facility] Comment on above: Quit in 2014, not ar ound cigarette smoke Start: 1945 Sex Assigned At Female A [facility] Start: 07-16-2023 End: 02-06-2024 Tobacco smoking status AKIS Tobacco smoking consumption unknown [facility] Start: 1945 Sex Assigned At Not on file [facility] Start: 10-14-2023 End: 12-09-2023 Gender identity Not on file [facility] [employer] Start: 10-14-2023 [facility] Start: 10-14-2023 Tobacco use and exposure Smokeless tobacco non-user [facility] Start: 10-14-2023 End: 12-09-2023 History of Social function [facility] Start: 01-04-2025 End: 01-24-2025 Sex Female (finding) [facility] Medical Equipment Procedure Code Equipment Code Equipment Origin al Text Equipment Identifier Dates BD UF SHORT PEN NEEDLE [id number] Start: 08-29-[address] Strips Start: 10-16-2020 Lancets Start: 04-23-2021 BD UF SHORT PEN NEEDLE [id number], 0 Refill(s), 141.8 Start: 08-29-2020 See Instructions , EA=BOX of 100 2x daily testing once touch untra blue dx: diabetes, # 6 EA, 3 Refill(s), Pharmacy: [facility]/pharmacy #[id number], Diabetes, 166.37, cm, 07/24/21 11:31:00 EDT, Height, 134.5, kg, 07/24/21 11:31:00 EDT, Dosing Weight Start: 07-24-2021 See Instructions , EA=BOX OF 100 ONETOUCH DELICA LANCETS FINE, 33 GA TO TEST BID Diabetes R11.9, # 6 EA, 3 Refill(s), Pharmacy: [facility]/pharmacy #[id number], Diabetes, 166.37, cm, 07/24/21 11:31:00 EDT, Height, 134.5, kg, 07/24/21 11:31:00 EDT, Dosing Weight Start: 07-24-2021 See Instructions , Using Twice Daily. ONE BOX OF 100. BD UF 8mm 31 G (short) qs 3 month supply Diabetes Mellitus E11.9, # 2 EA, 0 Refill(s), Pharmacy: [facility]/pharmacy #[id number], 167.6, cm, 11/05/21 9:58:00 EST, Height, 135.4, kg, 11/05/21 9:58:00 EST, Dosing... Start: 12-20-2021 See Instructions , EA=BOX of 100 2x daily testing once touch untra blue dx: diabetes, # 6 EA, 3 Refill(s), Pharmacy: [facility]/pharmacy #[id number], Diabetes, 167.6, cm, 05/20/22 12:08:00 EDT, Height, 134.9, kg, 05/20/22 11:59:00 EDT, Dosing Weight Start: 08-05-2022 See Instructions , EA=BOX OF 100 ONETOUCH DELICA LANCETS FINE, 33 GA TO TEST BID Diabetes R11.9, # 6 EA, 3 Refill(s), Pharmacy: [facility]/pharmacy #[id number], Diabetes, 167.6, cm, 08/19/22 12:13:00 EST, Height, 135.4, kg, 08/19/22 12:13:00 EST, Dosing Weight Start: 09-10-2022 See Instructions , EA=ONE BOX OF 100, BID BD UF 8mm 31 G (short) qs 3 month supply Diabetes Mellitus E11.9, # 2 EA, 3 Refill(s), [id number], 167.6, cm, 11/20/22 11:29:00 EST, Height, 134, kg, 11/20/22 11:29:00 EST, Dosing Weight Start: 11-20-2022 See Instructions , EA=BOX of 100 2x daily testing once touch untra blue dx: diabetes, # 6 EA, 3 Refill(s), [id number], Diabetes, 167.6, cm, 05/20/22 12:08:00 EDT, Height, 134.9, kg, 05/20/22 11:59:00 EDT, Dosing Weight Start: 08-05-2022 See Instructions , EA=BOX OF 100 ONETOUCH DELICA LANCETS FINE, 33 GA TO TEST BID Diabetes R11.9, # 6 EA, 3 Refill(s), Pharmacy: [facility]/pharmacy #[id number], Diabetes, 167.6, cm, 08/19/22 12:13:00 EST, Height, 135.4, kg, 08/19/22 12:13:00 EST, Dosing Weight Start: 09-10-2022 See Instructions , EA=ONE BOX OF 100, BID BD UF 8mm 31 G (short) qs 3 month supply Diabetes Mellitus E11.9, # 2 EA, 3 Refill(s), Pharmacy: [facility]/pharmacy #[id number], 167.6, cm, 11/20/22 11:29:00 EST, Height, 134, kg, 11/20/22 11:29:00 EST, Dosing Weight Start: 11-20-2022 Functional Status Date Assessment Result Facility 07-04-2023 Functional Status Room check performed [facility] 07-04-2023 Functional Status right knee high applied /on [facility] 07-04-2023 Functional Status [facility] 07-04-2023 Functional Status [facility] 07-04-2023 Functional Status Demonstrates C orrect Call Light Use Yes [facility] 07-04-2023 Functional Status Done [facility] 07-04-2023 Functional Status [facility] 07-03-2023 Functional Status Positioning Repositions self [facility] 07-03-2023 Functional Status [facility] 07-03-2023 Functional Status [facility] 07-03-2023 Functional Status [facility] 07-03-2023 Functional Status [facility] 07-03-2023 Functional Status [facility] 07-02-2023 Functional Status [facility] 07-02-2023 Functional Status Max A [facility] 07-01-2023 Functional Status [facility] 07-01-2023 Functional Status Single level home [facility] 07-01-2023 Functional Status [facility] 06-30-2023 Functional Status Sensory Deficits None A [facility] 06-30-2023 Functional Status Activity Rosa tance Independent [facility] Mental Status Date Assessment Result Facility 07-04-2023 Mental Status Orientation Orie nted x 4, Follows simple commands [facility] 07-03-2023 Mental Status [facility] 07-03-2023 Mental Status [facility] 07-03-2023 Mental Status Orientation Asse ssment Oriented x 4 [facility] 07-02-2023 Mental Status [facility] 07-01-2023 Mental Status [facility] Clinical Notes 06-30-2023 to 05-18-2025 Note Date & Type Note Facility 05-18-2025 Radiology Diagnostic study note [facility] Imaging Services [address] [place] [address] Abdomen Single View MR#: [id number] Acct: [id number] Name: GUMARO HUFF Rep #: [id number] : 1945 F 80 From: Gena Breen MD PCP: Dr. Balwinder Alves MD Status: REG CLI Study:Abdomen Single View Date of Exam: 05/17/25 Exam# [id number] Ordering Dr: Dorota James MD PROCEDURE: ABDOMEN SINGLE VIEW 05/17/2025 REASON FOR EXAM: KIDNEY STONE TECHNIQUE: ABDOMEN SINGLE VIEW COMPARISON: CT 03/31/2025 FINDINGS: Clear lung bases. No free air. Nonspecific bowel-gas pattern. Lumbar spine scoliosis and degeneration. Status post cholecystectomy. There is a curvy linear shaped staghorn calculus overlying the right renal shadow, as noted on previous CT measures 3.9 cm in length and about 1.7 cm in cross-section, on CT. No interval change. No left renal stones. No definite ureteral stones. Numerous pelvic phleboliths. RAD/Abdomen Single View IMPRESSION: Lower pole right renal staghorn calculus is redemonstrated. Reading Location: [facility] CC: Dr. Dorota James MD; Dr. Balwinder Alves MD ~ Shelving Supervisor: Signed [facility] 05-17-2025 Evaluation note Diagnosis Onset Date Resolution Flank pain acute May 17, 025 9:40am Staghorn calculus acute May 17, 2025 9:40am Uncontrolled type 2 diabetes mellitus acute May 17 025 9:40am UTI (urinary tract infection) acute May 17 9:40am HTN (hypertension) chronic May 17, 2025 9:40am [facility] Work Phone: 1(333) 103-629706-27-2025 Radiology Diagnostic study note [facility] Imaging Services [address] [place] [address] Abdomen/Pelvis without Cont MR#: [id number] Acct: [id number] Name: GUMARO HUFF Rep #: [id number] : 1945 F 80 From: Adalid Hanna MD PCP: Dr. Balwinder Alves MD Status: REG CLI Study:Abdomen/Pelvis without Cont Date of Exa m: 03/31/25 Exam# [id number] Ordering Dr: Dorota James MD PROCEDURE: ABDOMEN/PELVIS [...] Sigmoid diverticulosis. Status post cholecystectomy. Reading Location: [facility] CC: Dr. Dorota James MD; Dr. Balwinder Alves MD ~ Shelving Supervisor: Signed [facility]05-04-2024 Discharge summary Author Omid Montiel [facility] February 06, 2024 6:02pm Note Date/Time February 06, 2024 4:09pm [facility] Medical Records Department [address] [place] [address] Emergency Department Summary 02/06/24 MR#: [id number] Acct: [id number] Name: GUMARO HUFF Rep #:[id number] : 1945 78 From: Omid Montiel MD PCP: Dr. Balwinder Alves MD Status:REG ER Location: ED HPI History of Present Illness Chief Complaint: Wound Check Narrative Narrative: 78-year-old female past medical history of diabetes presents from group home facility for right labia majora abscess. [...] line because they want to start vancomycin. [facility] Medical History Brain bleed Cataract Closed [...] on antibiotics orally. Disposition is discharged to [facility] in stable condition. History & Record [...] Provider] - 2 Days Laci Brewer NP, [employer] [Non-Staff] - Activity Restrictions/Additional Instructions: Remove packing/have packing removed in 48 hours. Do not leave in longer. Continue vancomycin through your peripheral IV. Disposition Disposition: Retirement Facility Discharge Location: [facility] What to do if you have Problems For any increased pain, shortness of breath, bleeding, nausea or vomiting, chestpain, or any unexpected problems, contact your Primary Care Provider. Call [facility] ([phone]) or report to the closest Emergency Room. Call 911 if necessary. 02/06/24 180 <Electronically signed by Omid Montiel MD> Cosigner Signature (if applicable): CC: Dr. Balwinder Alves MD ~ Signed [facility] Work Phone: 1(739) 456-153403-06-2024 History of Present illness Narrative* LIA Champagne - 12/09/2023 10:30 AM EST Images from the original note were not included. [facility] [address] [place] [address] [place] [phone] Dept: [phone] Dept Gumaro Huff 1945 [id number] 12/09/2023 HISTORY OF PRESENT ILLNESS: Gumaro returns [...] to improve. Electronically signed by LIA Champagne [facility] Department of Orthopedic surgery 12/09/2023 3:43 PM Voice recognition was used for portions of this note and although it was reviewed prior to signing some incorrect words or phrases could be present. documented in this [facility]01-10-2024 History of Present illness Narrative* LIA Champagne - 10/14/2023 10:00 AM EST Images from the original note were not included. [facility] [address] [place] [phone] Dept: [phone] Dept Gumrao Daria 1945 [id number] 10/14/2023 HISTORY OF PRESENT ILLNESS: Gumaro returns [...] with Imaging. Electronically signed by LIA Champagne [facility] Department of Orthopedic surgery 10/14/2023 3:50 PM Voice recognition was used for portions of this note and although it was reviewed prior to signing some incorrect words or phrases could be present. documented in this [facility]11-30-2023 Telephone encounter Note* Telephone Encounter - Kimberly Capellan MA - 09/03/2023 8:53 AM EST Left distal fibula fx doi 07/02/23 she is in a boot. Can only be seen in [place] or [place]. No wads [place] [id number] Miscellaneous Notes* Telephone Encounter - Kimberly Capellan MA - 09/03/2023 8:53 AM EST Left distal fibula fx doi 07/02/23 she is in a boot. Can only be seen in [place] or [place]. No wads * Telephone Encounter - Sammie Lantigua - 09/02/2023 12:08 PM EST Gareth toussaint RN at [facility] called [phone] ext 2008, he states that they just got Gumaro from [place] and they are looking for her to [...] Dr. Ureña on Thursday at 1pm in [facility] or 9am in [place] if not already double booked. documented in this [facility]11-29-2023 Telephone encounter Note* Telephone Encounter - Sammie Lantigua - 09/02/2023 12:08 PM EST Gareth toussaint RN at [facility] called [phone] ext 2008, he states that they just got Gumaro from [place] and they are looking for her to [...] 2:30 today and then works again tomorrow. [id number] Miscellaneous Notes* Telephone Encounter - Sammie Lantigua - 09/02/2023 12:08 PM EST Gareth an RN at [facility] called [phone] ext 2008, he states that they just got Gumaro from [place] and they are looking for her to [...] Dr. Ureña on Thursday at 1pm in [facility] or 9am in [place] if not already double booked. documented in this [facility]10-13-2023 Telephone encounter Note* Telephone Encounter - Billy Araya MA - 07/17/2023 9:27 AM EDT LVM to schedule with Dr. Ureña on Thursday at 1pm in [facility] or 9am in [place] if not already double booked. [id number] Hospital Discharge instructions Patient Education 07/03/2023 14:56:59 Urinary Tract Infection, Adult, Nhef-jn-Vhwt Urinary Tract Infection, Adult A urinary tract [...] Follow these instructions at home: Medicines Take nmko-yts-lazobba and prescription medicines only as told by [...] 03/09/2009 Document Revised: 09/08/2019 Document Reviewed: 03/31/2019 Spring[employer] Patient Education 2020 [employer]. Follow Up Care 06/30/2023 15:11:52 With:LACI BREWER Address: [address] [facility] [place] [address]- [phone] When:3-5 days Comments:Please schedule a Follow up appt with your PCP after d/c. [facility] 09-29-2023 Note Discharge Instructions Thank you for allowing [facility] to assist you with your healthcare needs. The following is importantdischarge information regarding your hospital visit. Your Care Team Heather Hunt APRN Your Diagnosis Ankle pain-swelling Depression Fall Fibula fracture Hypertension Type 2 diabetes mellitus Urinary tract infection What to do next Scheduled Follow-Up Appointments Appointment Type When With Where Contact Lynette HEALY 09/22/2023 11:30 AM LACI GÓMEZ [address] [phone] Follow Up Appointments Follow Up with LACI BREWER When Within 3-5 days Why: Please schedule a Follow up appt with your PCP after d/c. Where: [address] [place] [phone] The Following Activity and Diet Have Been [...] When Why Instructions Last Dose New acetaminophen-hydrocodone (Edgar 325- 5 mg oral tablet) 1 tab(s) [...] Follow these instructions at home: Medicines Take ihsd-qfj-nyjjdcu and prescription medicines only as told by [...] 03/09/2009 Document Revised: 09/08/2019 Document Reviewed: 03/31/2019 [employer] Patient Education 2020 [employer] Additional Information VACCINATE! IT SAVES LIVES! Members of the community who have not yet received the COVID-19 vaccine and would like to receive it can visit one of [facility] vaccine clinics. There are many vaccine clinic locations within the [facility]. For locations and available times, please visit [email or web address].[place].gov/. It is important to note that some COVID mobile vaccine clinics are held outdoors and may be canceled in rainy or stormy conditions. To learn more about pediatric vaccinations (ages 5-11), we invite you to visit the [facility] webpage. https://www.[email or web address].org/pages/[email or web address]-Emgvj-Mqbowdxfjmk-Jsqruajfek-Jhsja-Xqc stions.htmlTo learn more about the COVID-19 vaccine, we invite you to visit the CDC website for a list of frequently asked questions.https://www.cdc.gov/coronavirus/2019-ncov/vaccines/faq.html [employer] Patient Portal Access Instructions: Stay connected with your healthcare team and access your personal medical information anytime with the [employer] Patient Portal. Please follow the directions below to create your [facility] account: 1.Access the email account you provided upon registration to the hospital/physician office.2.Look for an invitation email from [facility].3.Open the email and access the invitation link: AcceptInvitation to [facility].4.Fill in the required correa to create your account. To access your account, visit [employer] (MyBrandz)/[employer]. Click the blue button labeled Access Patient [...] who you will allowto register on the [place] [facility]Exchange[facility] Patient Portal for access to your information. You can also access the [facility] on the [place] [employer] calos. Simply click on Patient Portal and then log into your account. If you would like to receive a full copy of your medical records, please contact the [facility] Medical Records Department by calling [phone], Thursday through Thursday between 8 a.m. and [...] Call your local pharmacy or go to [email or web address] to find one close to you.3.Make use of household items: Use cat litter or old coffee grounds to dispose medications if other options arenot available. Mix your drugs with these household products, seal them in an airtight container andthrow it into the garbage. Call [facility]: [phone] to be sure your drugs can be [...] Patient Education Materials Urinary Tract Infection, Adult, Znnq-qo-Gmld Medication Leaflets My discharge plan and instructions have been reviewed and explained to me and I,GUMARO HUFF understand my current condition and have read and understand these discharge instructions. I have received a written copy of the plan/instructions. If I have questions, I am aware that I should contact my doctor. Patient/Client Hr Manager Signature: Date/Time: Relationship to Patient: Witness Name/Signature: Date/Time: [facility]09-29-2023 Note Date of Service 07/03/2023 Chief Complaint Fibula fracture Subjective 78-year-old female with past medical history significant for HTN, HLD, type 2 diabetes mellitus, morbid obesity. Next Patient presented to [facility] emergency department on 06/30/2023 with left [...] currently. Pain was not well controlled with Edgar alone. Objective Vitals and Measurements T: 36.6 [...] Dr. Roberto, nonweightbearing status for 6 weeks. Edgar for pain. Patient has a documented allergy [...] Time Spent 36 minutes was spent in xssa-ou-ivfi time and coordination of care for this patient, including but not limited to personally gathering history, examining the patient, reviewing labs and images and records, counseling patient and/or family about diagnosis and potential workup if applicable, as detailed above as well as discussing the case with patient's interdisciplinary team where applicable. Digitally Signed by HEATHER HUNT on 07/03/2023 01:33 PM [facility]09-28-2023 Note Date of Service 07/02/2023 Chief Complaint Fall Subjective 78-year-old female with past medical history significant for HTN, HLD, type 2 diabetes mellitus, morbid obesity. Next Patient presented to [facility] emergency department on 06/30/2023 with left [...] Dr. Roberto, nonweightbearing status for 6 weeks. Edgar for pain. Patient has a documented allergy [...] by HEATHER HUNT on 07/02/2023 04:17 PM [facility]09-28-2023 Note. MICRO - Microbiology PROCEDURE: Urine [...] Locations *1: This test was performed at: [facility], [address] [place] [address], [phone] , [facility] ([place])07-01-2023 Note Date of Service 07/01/2023 Chief Complaint [...] - holding off until seen by ortho. *social services aide consulted for discharge planning. *Continue PO pain [...] home medications, discussing plan of care with nursing,nephrology social worker, and therapy, examining patient, collaborating with physician, and documenting in chart. Digitally Signed by ROHAN MCDOWELL on 07/01/2023 04:17 PM [facility]09-26-2023 Note Date of Service 06/30/2023 Chief Complaint Patient fell at home and is complaining of left-sided ankle pain. History of Present Illness Patient is an 78-year-old female, who follows with Laci Brewer CNP with a past medical history significant for hypertension, hyperlipidemia, type 2 diabetes and morbid obesity, presented to [facility] emergency department with the chief complaint of [...] to evaluate and treat. We will consult nephrology social worker for discharge planning. Check CBC [...] PT and OT to evaluate and treat. *social services aide consulted for discharge planning. 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 Appetite Good. Eating Difficulties None. Caffeine intake amount: Occ Coke. Two protein drink daily, it has caffeine of one cup of coffee., 08/19/2022 Substance Abuse Use: Never., 04/06/2019 Tobacco Tobacco Use: Former smoker, quit more than 30 days ago., 04/06/2019 Family History Arthritis: Sister. Asbestosis: Father. Cancer: Mother. Diabetes: Sister. Guillain [place] syndrome: Sister. Heart disease: Sister. Malignant neoplasm [...] by ROHAN MCDOWELL on 06/30/2023 04:51 PM [facility]09-26-2023 Note ORIGINAL EXAMINATION: 3 x-ray views [...] Sign Date: 06/30/2023 4:00:26 PM Ordering Provider: [facility]09-26-2023 Note ORIGINAL EXAMINATION: TWO XRAY [...] Sign Date: 06/30/2023 4:01:46 PM Ordering Provider: [facility]09-26-2023 Evaluation + Plan noteExtracted from: Title:History and Physical Author:ROHAN MCDOWELL APRN-INTERACTIVE ART DIRECTOR Date:06/30/23 1. Ankle pain-swelling Acute, s/p mechanical fall at home *X-ray of left ankle reveals fracture of distal fibula. *Consult Dr. Jose Roberto, orthopedics, for recommendation. *Patient is non weightbearing to left ankle. *Consult placed to PT and OT to evaluate and treat. *social services aide consulted for discharge planning. *Continue PO pain [...] Future Appointments Appointment Date:09/22/2023 11:30:00 AM Scheduled Provider:BALLACI ROWAN Location:[facility] Appointment Type:PC OV [facility] Evaluation + Plan note Future Appointments Appointment Date:07/24/2021 11:30:00 AM Scheduled Provider:LACI BREWER Location:[facility] Appointment Type:PC OV Future Scheduled Tests Laboratory* Vitamin D Level 01/22/21 * Vitamin D Level 11/06/20 [facility] Evaluation + Plan note Future Appointments Appointment Date:02/04/2022 11:00:00 AM Scheduled Provider:LACI BREWER Location:[facility] Appointment Type:PC OV Follow Up [facility] Evaluation + Plan note Future Appointments Appointment Date:02/10/2023 11:30:00 AM Scheduled Provider:LACI BREWER Location:[facility] Appointment Type:PC OV [facility] evaluation note* Diagnosis Onset Date Resolution Status Closed fracture of left distal fibula acute Left ankle pain acute [facility] Work Phone: evaluation note* Diagnosis Closed fracture of left ankle, initial encounter- Primary documented in this encounter [facility] note* Diagnosis Closed fracture of distal end of left fibula, unspecified fracture morphology, initial encounter Acute left ankle pain documented in this encounter [facility]* Diagnosis Closed fracture of distal end of left fibula, unspecified fracture morphology, initial encounter- Primary documented in this encounter [facility] note* Diagnosis Closed fracture of distal end of left fibula, unspecified fracture morphology, initial encounter- Primary documented in this encounter [facility] HealthEvaluation noteNo assessment information availableWRiverview [facility] Work Phone: evaluation note* Diagnosis Onset Date Resolution Status Admit Date Kidney stones acute May 9:40am UTI (urinary tract infection) acute May 17, 2025 9:40am [facility] Work Phone: Hospital course Narrative No data available for this section [facility] Hospital Discharge instructions No data available for this section [facility] Hospital Discharge instructions Additional Instructions Remove packing/have packing removed in 48 hours. Do not leave in longer. Continue vancomycin through your peripheral IV.[facility] Work Phone: Progress note No data available for this section [facility] Reason for referral (narrative)No reason for referral information availableWRiverview [facility] Institute Work Phone: Summary Purpose Family History No Family History Records Found Advance Directives No Advanced Directives Records Found Advance Directive Response Recorded Date/ Time Name of Medical Power of Civil Structural Designer casey laureano February 06, 2024 3:49pm Living Will Yes February 06, 2024 3: 49pm Power of Civil Structural Designer Yes February 06, 2024 3:49pm Chief Complaint and Reason for Visit Chief Complaint LEFT FIBULA Room 1 LABWORK Reason for Visit Closed fracture of l eft distal fibula Left ankle pain Chief Complaint LEFT FIBULA Room 1 LABWORK HALF-WAY LAB WORK Reason for Visit Closed fracture of l eft distal fibula Left ankle pain Chief Complaint LABWORK [facility]-WAY LAB WORK HAL[facility]-WAY LAB WORK Chief Complaint HALF-WAY LAB WOR K wound Chief Complaint Admit Date [facility]-WAY LAB WORK September 14 5:00am [facility]-WAY LAB WORK October 10, 2024 7:30pm HAL[facility]-WAY LAB WORK December 14, 2024 5 :00am LABWORK December 16, 2024 6:1 2am HALF-WAY LAB WORK January 02, 2025 7 :30pm Chief Complaint Admit Date HALF-WAY LAB WORK September 14 5:00am HALF-WAY LAB WORK October 10, 2024 7:30pm HALF-WAY LAB WORK December 14, 2024 5 :00am LABWORK December 16, 2024 6:1 2am HALF-WAY LAB WORK January 02, 2025 7 :30pm LABWORK January 09, 2025 12:4 0pm Chief Complaint Admit Date HALF-WAY LAB WORK September 14 5:00am HALF-WAY LAB WORK October 10, 2024 7:30pm HALF-WAY LAB WORK December 14, 2024 5 :00am LABWORK December 16, 2024 6:1 2am LABWORK December 26, 2024 7:0 8am HALF-WAY LAB WORK January 02, 2025 7 :30pm LABWORK January 09, 2025 12:4 0pm Chief Complaint Admit Date HALF-WAY LAB WORK October 10, 2024 7:30pm HALF-WAY LAB WORK December 14, 2024 5 :00am LABWORK December 16, 2024 6:1 2am LABWORK December 26, 2024 7:0 8am HALF-WAY LAB WORK January 02, 2025 7 :30pm LABWORK January 09, 2025 12:4 0pm HALF-WAY LAB WORK January 23, 2025 1 1:30pm Chief Complaint Admit Date HALF-WAY LAB WORK December 14, 2024 5 :00am LABWORK December 16, 2024 6:1 2am LABWORK December 26, 2024 7:0 8am HALF-WAY LAB WORK January 02, 2025 7 :30pm LABWORK January 09, 2025 12:4 0pm HALF-WAY LAB WORK January 23, 2025 1 1:30pm HALF-WAY LAB WORK February 07, 2025 3:30 am Chief Complaint Admit Date HALF-WAY LAB WORK December 14, 2024 5 :00am LABWORK December 16, 2024 6:1 2am LABWORK December 26, 2024 7:0 8am HALF-WAY LAB WORK January 02, 2025 7 :30pm LABWORK January 09, 2025 12:4 0pm HALF-WAY LAB WORK January 23, 2025 1 1:30pm HALF-WAY LAB WORK February 07, 2025 3:30 am HALF-WAY LAB WORK March 02, 2025 4:3 0am HALF-WAY LAB WORK March 15, 2025 4: 00am KIDNEY STONES March 31, 2025 7:51 am Chief Complaint Admit Date HALF-WAY LAB WORK January 23, 2025 1 1:30pm HALF-WAY LAB WORK February 07, 2025 3:30 am HALF-WAY LAB WORK March 02, 2025 4:3 0am HALF-WAY LAB WORK March 15, 2025 4: 00am HALF-WAY LAB WORK March 16, 2025 5: 00am KIDNEY STONES March 31, 2025 7:[address] follow up May 17, 2025 9: 40am Reason for Visit Admit Date Kidney stones May 17, 2025 9: 40am UTI (urinary tract infection) May 9:40am Chief Complaint Admit Date HALF-WAY LAB WORK January 23, 2025 1 1:30pm HALF-WAY LAB WORK February 07, 2025 3:30 am HALF-WAY LAB WORK March 02, 2025 4:3 0am HALF-WAY LAB WORK March 15, 2025 4: 00am HALF-WAY LAB WORK March 16, 2025 5: 00am KIDNEY STONES March 31, 2025 7:[address] follow up May 17, 2025 9: 40am kidney stone May 17, 2025 10 :31am Reason for Visit Admit Date Flank pain May 17, 2025 9: 40am Staghorn calculus May 17, 2025 9: 40am Uncontrolled type 2 diabetes mellitus Au gabriela 2024 9:40am UTI (urinary tract infection) May 9:40am HTN (hypertension) May 17, 2025 9: 40am Reason for Referral Specialty Diagnoses / Procedures Referred By Contannita t Referred To Contact Physical Therapy Diagnoses Closed fracture of distal end of left fibula, unspecified fracture morphology, initial encounter Procedures AR OFFICE/OUTPATIENT [facility] 60 MINUTES Tete Trevino PA [address] [facility] [place] [address] [place] [id number] Referral ID Status Reason Start Date Expiration Date Visits Requested Visits Authorized [id number] Pending Review Eval and Treat 10/14/2023 04/11/2024 99 99 Additional Source Comments Care Team (unrecognized sect ion and content) Team Status: Active Member Role Status Dates Dr. Joaquin hTomas MD Family Provider Active Laci Brewer [employer], [employer] Primary Care Provider Active Team Status: Inactive Member Role Status Dates Laci Brewer [employer], [employer] Primary Care Provider, Referring Provider Active Prieto Meade MD Attending Provider Active Team Status: Inactive Member Role Status Dates Laci Brewer [employer], [employer] Primary Care Provider Active Dr. 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 Start Date End Date Balwinder Alves MD [address] [facility] [address] [place] [phone] PCP - General Family Medicine 10/14/23 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 Start Date End Date Balwinder Alves MD [address] [facility] [address] [place] [phone] PCP - General Family Medicine 10/14/23 Team Status: Inactive Member Role Status Dates Laci Brewer [employer], [employer] Primary Care Provider Active Balwinder MARSHALL MD [...] 2024 Team Status: Active Member Role Status Mame [...] 2025 Team Status: Active Member Role Status Dates Balwinder MARSHALL MD Primary Care Provider Active Start: March 02, 2025 Balwinder MARSHALL MD Attending Provider Active Start: March 02, 2025 Team Status: Active Member Role/Relationship Status Dates Dr. Balwinder Alves MD Primary Care Provider Active Team Status: Inactive Member Role/Relationship Status Dates Balwinder MARSHALL MD Primary Care Provider Active Start: December 14, 2024 End: December 14, 2024 Balwinder MARSHALL MD Attending Provider Active Start: December 14, 2024 End: December 14, 2024 Team Status: Inactive Member Role/Relationship Status Dates Balwinder MARSHALL MD Primary Care Provider Active Start: December 16, 2024 End: December 16, 2024 Balwinder MARSHALL MD Attending Provider Active Start: December 16, 2024 End: December 16, 2024 Team Status: Inactive Member Role/Relationship Status Dates Balwinder MARSHALL MD Primary Care Provider Active Start: December 26, 2024 End: December 26, 2024 Balwinder MARSHALL MD Attending Provider Active Start: December 26, 2024 End: December 26, 2024 Team Status: Inactive Member Role/Relationship Status Dates Balwinder MARSHALL MD Primary Care Provider Active Start: January 02, 2025 End: January 02, 2025 Balwinedr MARSHALL MD Attending Provider Active Start: January [...] 2025 Team Status: Inactive Member Role/Relationship Status Mame [...] May 17, 2025 End: May 17, 2025 Team Status: Inactive Member Role/Relationship Status Dates Dr. Dorota James MD Attending Provider Active Start: May 17, 2025 End: May 17, 2025 Dr. Dorota James MD Referring Provider Active Start: May 17, 2025 End: May 17, 2025 Dr. Balwinder Alves MD Primary Care Provider Active Start: May 17, 2025 End: May 17, 2025 INFORMATION SOURCE (unrecogn ized section and content) DATE CREATED AUTHOR 07/23/2023 [employer] ([place]) DATE CREATED AUTHOR AUTHOR'S ORGANIZ ATION 12/10/2023 [facility] DATE CREATED AUTHOR AUTHOR'S ORGANIZ ATION 05/30/2025 [facility] Reason for Visit (unrecogniz ed section [...] BE BASED ON THE PRIMARY CLINICAL RECORDS. [facility] [facility]. provides no warranty or guarantee of the accuracy or completeness of information in this document.
[2025-06-01 09:17] LABS: Color, Urine Yellow (Yellow); Glucose, Dipstick Normal (Normal); Ketone-Dipstick Negative (Negative); Leukocyte Esterase-Dipstick 500 /ul (Negative); Nitrite-Dipstick Positive (Negative); Occult Blood-Urine 250 /ul (Negative); Protein-Dipstick 30 mg/dl (Negative); Specific Gravity, Urine 1.015 (1.002-1.030); Urine Bilirubin Dipstick Negative (Negative)
[2025-06-01 09:44] LABS: Cholesterol 123 mg/dL (<=200); Low Density Lipoprotein Calc. 28 mg/dL; Triglycerides 199 mg/dL; Very Low Density Lipoprotein 40 mg/dL (5-40); Vitamin D,25 Hydroxy 31.8 ng/mL (30-100); cholesterol:hdl ratio screen 2.24
== END ==
LOC: OLS.WCC 05:00
PROVIDERS: PCP Family Medicine; Visit Provider Family Medicine
DX: N39.0 Urinary tract infection, site not specified (principal); E11.9 Type 2 diabetes mellitus without complications; E66.01 Morbid (severe) obesity due to excess calories; M85.80 Other specified disorders of bone density and structure, unspecified site; Z79.899 Other long term (current) drug therapy
CPT/HCPCS: 36415; 80061; 81002; 82306; 83036; 87077; 87086; 87088; 87186

== ENCOUNTER → 2025-06-15 | Outpatient (REF) | payer MEDICARE, MEDICAID, SELFPAY ==
[2025-06-15 09:30] LABS: Hematocrit 36.7 % (37-47); Hemoglobin 11.3 g/dL (12.0-15.0); Mean Corp Hgb Conc 30.8 g/dL (32-36); Mean Corpuscular Volume 93.4 fL (81-99); Mean Platelet Vol. 8.3 fl (6.2-12.0); Platelet Count 184 K/mm3 (150-450); RBC Distribution Width CV 14.3 % (11.6-14.6); RBC Distribution Width SD 49.1 fl (35.1-43.9); Red Blood Count 3.93 M/mm3 (4.2-5.4); White Blood Count 6.4 K/mm3 (4.4-11.0)
[2025-06-15 09:40] LABS: Anion Gap 10 (5-15); BUN 10 mg/dL (4-19); BUN/Creat Ratio 13.5 RATIO (10-20); Calcium,Total 9.6 mg/dL (7.6-11.0); Carbon Dioxide 28.8 mmol/L (21.0-32.0); Chloride 99 mmol/L (98-108); Glucose 204 mg/dL (70-99); Potassium 4.6 mmol/L (3.3-5.1)
== END ==
LOC: OLS.WCC 05:00
PROVIDERS: PCP Family Medicine; Visit Provider Family Medicine
DX: G62.9 Polyneuropathy, unspecified (principal)
CPT/HCPCS: 36415; 80048; 85027

== ENCOUNTER → 2025-06-26 04:00 | Outpatient (REF) | payer MEDICARE, MEDICAID, SELFPAY ==
--- OUTSIDE RECORDS SUMMARY | 2025-06-26 03:29 | XMS RPT_ITS | CCD ---
Author Organization [facility] Inform ion [facility] Care Team Providers Care Mini Lab Operator Name Role Phone OSMAN PERDUE, LACI Primary Care Physician [phone] OSMAN PERDUE, LACI Primary Care Unavailabl e OSMAN PERDUE, LACI Attending Unavailabl e OSMAN SHOT LIGHTER-DOOR TO DOOR SALESPERSON, LACI Primary Care Unavailabl e OSMAN SHOT LIGHTER-DOOR TO DOOR SALESPERSON, LACI Attending Unavailabl e JULY PERDUE, ROHAN Romero Attending Unavaila ble OSMAN PERDUE, LACI Primary Care UnavailJOSE FRANCISCO Matos DO Referring Unavailable JOSE ROBERTO DO Consulting Unavailable JULY BENTON-RODRIGO, ROHAN Romero Admitting Unavaila ble Unavailable Primary Care Provider Unavailluisa Brewer SENIOR LEAD DEVELOPER, SENIOR LEAD DEVELOPER-C Laci Primary Care Provider [phone] Osman SENIOR LEAD DEVELOPER, SENIOR LEAD DEVELOPER-C Laci Referring Provider [phone] MD Prieto Meade Attending Provider Dr. Shlomo Umana Attending Provider Balwinder Alves MD Primary Care Provider [phone] ZANDER UREÑA Referring Unavailable TETE TREVINO Attending [...] Provider Erika OLVERA, Dr. Raya Referring Provider Nelson OLVERA, Dr. Balwinder Dominguez Referring Provider Alves OLS, Balwinder K Primary Care Unavailable Alves OLS, Balwinder K Attending Unavailable Alves, Balwinder K Referring Unavailable Alves, Balwinder K Primary Care Unavailable [place] taylor Attending Unavailable Alves OLS, Balwinder K Primary Care Unavailable Alves OLS, Balwinder K Attending Unavailable Alves OLS, Balwinder K Primary Care Unavailable Alves OLS, Balwinder K Attending Unavailable Alves OLS, Balwinder K Primary Care Unavailable Alves OLS, Balwinder K Attending Unavailable [place] taylor Attending Unavailable Dorota James Referring Unavailable Alves, [...] / oxyCODONE; Translations: [acetaminophen-oxyco done] Drug Allergy [facility] (7 sources) Adhesive Tape Allergy to substance 07-05-20 23 REDNESS & BLISTERS [facility] (4 sources) Amoxicillin / Clavulanate; Translations: [amoxicillin-clavula kellie] Drug Allergy Rash [facility] (4 sources) Aspirin; Translations: [aspirin] Drug Allergy Unknown [facility] (20 sources) Ciprofloxacin; Translations: [ciprofloxacin] Drug Allergy 07-05-20 23 Rash [facility] (4 sources) dapagliflozin; Translations: [dapagliflozin] Drug Allergy Rash [facility] (7 sources) Ibuprofen; Translations: [ibuprofen] Drug Allergy 07-05-20 23 [facility] (20 sources) Latex; Translations: [latex] Drug allergy 07-05-20 23 BLISTERS & REDNESS, blisters, Other [facility] Comment on above: BLISTERS (18 sources) Sulfamethoxazole; Translations: [sulfamethoxazole] Drug Allergy 11-01-19 21 Hives, Shortness of breath [facility] (6 sources) Cephalexin; Translations: [cephalexin] Drug Allergy 07-05-20 23 Hives [facility] Comment on above: Immediate rash / hiv es; patient seen in ER after last administration of Keflex (15 sources) Adhesive Tape; Translations: [adhesive tape] Allergy to substance 07-16-20 23 blister [facility] (17 sources) Trimethoprim Drug Allergy 11-01-19 21 Shortness of breath [facility] (3 sources) augmenten Allergy to substance 07-16-[address] [facility] (4 sources) Aluminum aspirin Drug Allergy 07-05-20 Unknown [facility] (4 sources) dapagliflozin Drug Allergy 07-05-20 [facility] (4 sources) Amoxicillin-Pot Clavulanate Drug Allergy 07-05-20 [facility] (4 sources) Diphenhydramine-Acet aminophen Drug Allergy 07-05-20 [facility] (3 sources) Acetaminophen / oxyCODONE Drug Allergy 10-14-19 [facility] (3 sources) Sulfamethoxazole Allergy to substance 11-01-19 [facility] (3 sources) Wound Dressing Adhesive Drug Allergy 07-16-20 [facility] (11 sources) Amoxicillin Drug Allergy 02-06-[address] [facility] (11 sources) Clavulanate Drug Allergy 02-06-[address] [facility] (11 sources) Vancomycin Drug Allergy 02-06-20 red man syndrome [facility] (1 source) Acetaminophen Drug Allergy 05-29-20 [facility] (1 source) Amoxicillin Drug Allergy 05-17-20 [facility] (1 source) Aspirin Drug Allergy 05-29-20 [facility] (1 source) Cephalexin Drug Allergy 05-29-20 [facility] (1 source) Ciprofloxacin Drug Allergy 05-17-20 [facility] (1 source) Clavulanate Drug Allergy 05-17-20 [facility] (1 source) dapagliflozin Drug Allergy 05-29-20 [facility] (1 source) diphenhydrAMINE Drug Allergy 05-29-20 [facility] (1 source) Ibuprofen Drug Allergy 05-29-20 [facility] (1 source) phenyltoloxamine Drug Allergy 05-29-20 [facility] (1 source) Sulfamethoxazole Drug Allergy 05-17-20 [facility] (1 source) Trimethoprim Drug Allergy 05-17-20 [facility] (1 source) Vancomycin Drug Allergy 05-17-20 [facility] Medications Current Medications Medication Drug [...] arm, # 9 mL, 0 Refill(s), Pharmacy: [facility]/pharmacy #[id number], Type 2 diabetes mellitus, 168.91, cm, [...] needed May 17, 2025 12:00am Start: [facility] Extra [facility] 500 MG [...] qDay, # 180 tab(s), 3 Refill(s), Pharmacy: [facility]/pharmacy #[id number], 167.6, cm, 11/20/22 11:29:00 EST, Height, kg, 11/20/22 11:29:00 EST, Dosing Weight Start Date: 11/20/22 Status: Ordered Start: 11-13-2021 calcium (as ca rbonate) 600 mg oral tablet Dose : 1,200 mg = 2 tab(s), Oral, qDay, # 180 tab(s), 3 Refill(s), Pharmacy: [facility]/pharmacy #[id number], 167.6, cm, 11/05/21 9:58:00 EST, Height, [...] TID, # 270 cap(s), 0 Refill(s), Pharmacy: [facility]/pharmacy #[id number], Diabetic neuropathy, 168.91, cm, 02/18/23 11:25:00 EDT, Height, 127.7, kg, 02/18/23 11:25:00 EDT, Dosing Weight Start Date: 06/10/23 Stop Date: 09/08/23 Status: Ordered Start: 11-20-2022 End: 02-18-2023 gabapentin 400 mg oral capsu le Dose : 400 mg = 1 cap(s), Oral, TID, # 270 cap(s), 0 Refill(s), Pharmacy: [facility]/pharmacy #[id number], Diabetic neuropathy, 167.6, cm, 11/20/22 11:29:00 EST, Height, 134, kg, 11/20/22 11:29:00 EST, Dosing Weight Start Date: 11/20/22 Stop Date: 02/18/23 Status: Ordered Start: 10-25-2021 End: 01-23-2022 gabapentin 400 mg oral capsu le Dose : 400 mg = 1 cap(s), Oral, TID, dose change, # 270 cap(s), 0 Refill(s), Pharmacy: [facility]/pharmacy #[id number], Diabetic neuropathy, 166.37, cm, 07/24/21 11:31:00 EDT, Height, 134.5, kg, 07/24/21 11:31:00 EDT, Dosing Weight Start Date: 10/25/21 Stop Date: 01/23/22 Status: Ordered Start: 04-23-2021 End: 07-22-2021 gabapentin 400 mg oral capsu le Dose : 400 mg = 1 cap(s), Oral, TID, dose change, # 270 cap(s), 0 Refill(s), Pharmacy: [facility]/pharmacy #[id number], Diabetic neuropathy, 167.6, cm, 04/23/21 11:30:00 [...] E11.9, # 4 EA, 3 Refill(s), Pharmacy: [facility]/pharmacy #[id number], Diabetes, 166.37, cm, 07/24/21 11:31:00 EDT, Height, kg, 07/24/21 11:31:00 EDT, Dosing Weight Start Date: 07/24/21 Stop Date: 07/19/22 Status: Ordered Start: 05-14-2021 inject 1 dose by sub cutaneous injection twice daily Lantus Solostar Pen 100 units/mL 3 mL Pen Dose : 30 unit(s) =, Subcutaneous, BID, EA=BOX OF 5 PENS diabetes E11.9, # 4 EA, 3 Refill(s), Pharmacy: [facility]/pharmacy #[id number], 167.6, cm, 04/23/21 11:30:00 EDT, Height, [...] Daily, # 90 tab(s), 1 Refill(s), Pharmacy: [facility]/pharmacy #[id number], Hypertension, 168.91, cm, 02/18/23 11:25:00 EDT, Height, kg, 02/18/23 11:25:00 EDT, Dosing Weight Start Date: 02/18/23 Status: Ordered Start: 02-25-2022 losartan 100 m g oral tablet Dose : 100 mg = 1 tab(s), Oral, Daily, # 90 tab(s), 3 Refill(s), Pharmacy: [facility]/pharmacy #[id number], Hypertension, 167.6, cm, 02/04/22 11:02:00 EDT, Height, kg, 02/04/22 11:02:00 EDT, Dosing Weight Start Date: 02/25/22 Status: Ordered Start: 07-24-2021 losartan 100 m g oral tablet Dose : 100 mg = 1 tab(s), Oral, Daily, In absence of PCP, # 90 tab(s), 1 Refill(s), [id number], Hypertension, 166.37, cm, 07/24/21 11:31:00 EDT, Height, kg, 07/24/21 11:31:00 EDT, Dosing Weight Start Date: 07/24/21 Status: Ordered Start: 04-23-2021 losartan 100 m g oral tablet Dose : 100 mg = 1 tab(s), Oral, Daily, In absence of PCP, # 90 tab(s), 1 Refill(s), [id number], Hypertension, 167.6, cm, 04/23/21 11:30:00 EDT, [...] 0 Refill(s), 07/14/23 1:08:00 PM EDT, Pharmacy: [facility]/pharmacy #4605, 160, cm, 06/30/23 18:36:00 EDT, Height, [...] E11.9, # 2 EA, 0 Refill(s), Pharmacy: [facility]/pharmacy #4605, 167.6, cm, 04/23/21 11:30:00 EDT, Height, [...] sites, # 9 mL, 0 Refill(s), Pharmacy: [facility]/pharmacy #4605, Diabetes Diabetes mellitus, 167.6, cm, 11/20/22 [...] qHS, # 90 tab(s), 3 Refill(s), Pharmacy: [facility]/pharmacy #4605, Type 2 diabetes mellitus, 167.6, cm, 08/19/22 12:13:00 EST, Height, kg, 08/19/22 12:13:00 EST, Dosing Weight Start Date: 08/20/22 Status: Ordered Start: 08-28-2021 simvastatin 5 mg oral tablet Dose : 5 mg = 1 tab(s), Oral, qHS, # 90 tab(s), 3 Refill(s), [id number], Type 2 diabetes mellitus, 166.37, cm, [...] qHS, # 90 tab(s), 3 Refill(s), [id number], Insomnia, 168.91, cm, 02/18/23 11:25:00 EDT, Height, kg, 02/18/23 11:25:00 EDT, Dosing Weight Start Date: 02/18/23 Status: Ordered Start: 05-01-2022 traZODone 100 mg oral tablet Dose : 100 mg = 1 tab(s), Oral, qHS, # 90 tab(s), 3 Refill(s), Pharmacy: [facility]/pharmacy #4605, Insomnia, 167.6, cm, 02/04/22 11:02:00 EDT, Height, kg, 02/04/22 11:02:00 EDT, Dosing Weight Start Date: 05/01/22 Status: Ordered Start: 07-24-2021 traZODone 100 mg oral tablet Dose : 100 mg = 1 tab(s), Oral, qHS, # 90 tab(s), 1 Refill(s), [id number], Insomnia, 166.37, cm, 07/24/21 11:31:00 EDT, Height, kg, 07/24/21 11:31:00 EDT, Dosing Weight Start Date: 07/24/21 Status: Ordered Start: 04-23-2021 traZODone 100 mg oral tablet Dose : 100 mg = 1 tab(s), Oral, qHS, # 90 tab(s), 1 Refill(s), [id number], Insomnia, 167.6, cm, 04/23/21 11:30:00 EDT, [...] Daily, # 90 cap(s), 3 Refill(s), [id number], 166.37, cm, 07/24/21 11:31:00 EDT, Height, kg, 07/24/21 11:31:00 EDT, Dosing Weight Start Date: 09/11/21 Status: Ordered Vitamin D3 400 intl units (1 0 mcg) oral tablet (1 source) Start: 04-23-2021 Vitamin D3 400 intl units (10 mcg) oral tablet Dose : 20 mcg = 2 tab(s), Oral, qDay, # 180 tab(s), 3 Refill(s), Pharmacy: [facility]/pharmacy #4605, Vitamin D deficiency, 167.6, cm, 04/23/21 11:30:00 EDT, Height, kg, 04/23/21 11:30:00 EDT, Dosing Weight Start Date: 04/23/21 Status: Ordered Vitamin D3 50 mcg (2000 intl units) oral tablet (2 sources) Start: 08-20-2022 Vitamin D3 50 mcg (2000 intl units) oral tablet Dose : 2,000 unit(s) = 1 tab(s), Oral, Daily, dose increase, # 90 tab(s), 3 Refill(s), Pharmacy: [facility]/pharmacy #4605, Vitamin D deficiency, 167.6, cm, 08/19/22 [...] 16, 2023 12:00am Start: 07-03-2023 End: 07-06-2023 [place] 325- 5 mg oral tablet Dose = [...] pain/diarrhea, # 120 packet(s), 0 Refill(s), Pharmacy: [facility]/pharmacy #4605, Diarrhea, 167.6, cm, 02/04/22 11:02:00 EDT, [...] pain/diarrhea, # 120 packet(s), 0 Refill(s), Pharmacy: [facility]/pharmacy #4605, Diarrhea, 167.6, cm, 02/04/22 11:02:00 EDT, [...] 05-17-2025 Episodic Other aftercare (1 source) Other exterminator termite (current) drug therapy; Translations: [Other exterminator termite (current) drug therapy] Onset: 01-12-2025 Episodic Results Test Name Value Interpretation Reference Range Facility Basic Metabolic Profile (BMP )on 06-15-2025 BUN/CRE 13.5 RATIO Normal 10-20 [facility] Comment on above: Order Comment: 102-2 Performed By: #### L 500.2500, L100.0100 #### [facility] [address] [place], [address] Calcium [Mass/Vol] 9.6 mg/dL Normal 7.6-11.0 [facility] Comment on above: Order Comment: 102-2 Performed By: #### L 500.2500, L100.0100 #### [facility] [address] [place], [address] Chloride [Moles/Vol] 99 mmol/L Normal 98-108 [facility] Comment on above: Order Comment: 102-2 Performed By: #### L 500.2500, L100.0100 #### [facility] [address] [place], [address] CO2 [Moles/Vol] 28.8 mmol/L Normal 21.0-32.0 [facility] Comment on above: Order Comment: 102-2 Performed By: #### L 500.2500, L100.0100 #### [facility] [address] [place], [address] Creatinine [Mass/Vol] 0.71 mg/dL Normal 0.70-1.20 [facility] Comment on above: Order Comment: 102-2 Performed By: #### L 500.2500, L100.0100 #### [facility] [address] [place], [address] GAP 10 Normal 5-15 [facility] Comment on above: Order Comment: 102-2 Performed By: #### L 500.2500, L100.0100 #### [facility] [address] [place], [address] GFR/1.73 sq M.predicted among non-blacks MDRD (S/P/Bld) [Vol rate/Area] 85 mL/min/{1.73_m2} Normal >60 [facility] Comment on above: Order Comment: 102-2 Result Comment: mL/m in/1.73m2 CKD-EPI Creatinine Equation (2020) Performed By: #### L 500.2500, L100.0100 #### [facility] [address] [place], [address] Glucose [Mass/Vol] 204 mg/dL High 70-99 [facility] Comment on above: Order Comment: 102-2 Performed By: #### L 500.2500, L100.0100 #### [facility] [address] [place], [address] Potassium [Moles/Vol] 4.6 mmol/L Normal 3.3-5.1 [facility] Comment on above: Order Comment: 102-2 Performed By: #### L 500.2500, L100.0100 #### [facility] [address] [place], [address] Sodium [Moles/Vol] 138 mmol/L Normal 133-145 [facility] Comment on above: Order Comment: 102-2 Performed By: #### L 500.2500, L100.0100 #### [facility] [address] [place], [address] Urea nitrogen [Mass/Vol] 10 mg/dL Normal 4-19 [facility] Comment on above: Order Comment: 102-2 Performed By: #### L 500.2500, L100.0100 #### [facility] [address] [place], [address] CBC-Complete Blood Cnt No Peggy hawkins 06-15-2025 Erythrocyte distribution width (RBC) [Ratio] 14.3 % Normal 11.6-14.6 [facility] Comment on above: Order Comment: 102.2 Performed By: #### L 400.0001, M1.2199 #### [facility] [address] [place], [address] Hematocrit (Bld) [Volume fraction] 36.7 % Low 37-47 [facility] Comment on above: Order Comment: 102.2 Performed By: #### L 400.0001, M1 #### [facility] [address] [place], [address] Hemoglobin (Bld) [Mass/Vol] 11.3 g/dL Low 12.0-15.0 [facility] Comment on above: Order Comment: 102.2 Performed By: #### L 400.0001, #### [facility] [address] [place], [address] MCH (RBC) [Entitic mass] 28.8 pg Normal 27.0-32.0 [facility] Comment on above: Order Comment: 102.2 Performed By: #### L 400.0001, #### [facility] [address] [place], [address] MCHC (RBC) [Mass/Vol] 30.8 g/dL Low 32-36 [facility] Comment on above: Order Comment: 102.2 Performed By: #### L 400.0001, M1 #### [facility] [address] [place], [address] MCV (RBC) [Entitic vol] 93.4 fL Normal 81-99 [facility] Comment on above: Order Comment: 102.2 Performed By: #### L 400.0001, #### [facility] [address] [place], [address] Platelet mean volume (Bld) [Entitic vol] 8.3 fL Normal 6.2-12.0 [facility] Comment on above: Order Comment: 102.2 Performed By: #### L 400.0001, #### [facility] [address] [place], [address] Platelets (Bld) [#/Vol] 184 10*3/uL Normal 150-450 [facility] Comment on above: Order Comment: 102.2 Performed By: #### L 400.0001, #### [facility] [address] [place], [address] RBC (Bld) [#/Vol] 3.93 10*6/uL Low 4.2-5.4 [facility] Comment on above: Order Comment: 102.2 Performed By: #### L 400.0001, #### [facility] [address] [place], [address] RDW SD 49.1 fl High 35.1-43.9 [facility] Comment on above: Order Comment: 102.2 Performed By: #### L 400.0001, #### [facility] [address] [place], [address] WBC (Bld) [#/Vol] 6.4 10*3/uL Normal 4.4-11.0 [facility] Comment on above: Order Comment: 102.2 Performed By: #### L 400.0001, #### [facility] [address] [place], [address] Urine Cultureon 06-05-2025 [facility] POSSIBLE E.COLI 0157 . UNABLE TO CONFIRM, TESTING DISCONTINUED AT [facility]. Urine Culture [facility] 0904 Lorrie Patterson. REPORT READ BACK BY . Urine Culture Copy of report sent to Infection Control Printer [id number] 06/04/25 0905 [facility]. ESBL Escherichia coli [place] Count 80,000-100,000 MARKER ESBL producing OrganismA MARKER ESBL producing OrganismA Ampicillin Islt PREM >=32 R Ampicillin+Sulbac Islt PREM 16 Cefepime Islt PREM >=32 R cefTRIAXone Islt PREM >=64 R Ciprofloxacin Islt PREM >=4 R B-Lactamase Extended Susc Islt POS Gentamicin Islt PREM <=1 S levoFLOXacin Islt PREM >=8 R Meropenem Islt PREM <=0.25 S Nitrofurantoin Islt PREM <=16 S Pip+Tazo Islt PREM 16 I TMP SMX Islt PREM >=320 R ESBL Escherichia coli: REACTION Amikacin Islt PREM 2 S Eravacycline Islt PREM <=0.12 Imipenem Islt PREM <=0.25 S Tobramycin Islt PREM <=1 S Normal [facility] Comment on above: Performed By: #### L 500.2500, L100.0100 #### [facility] [address] [place], [address] Hemoglobin A1con 06-01-2025 HbA1c (Bld) [Mass fraction] 7.8 % High <=5.6 [facility] Comment on above: Result Comment: Norm al < 5.7 % Prediabetic 5.7 - 6.4 % Diabetic >or= 6.5 % Please note range changes. Performed By: #### L 500.2500, L100.0100 #### [facility] [address] [place], [address] Lipid Profileon 06-01-2025 CHOL:HDL 2.24 Normal [facility] Comment on above: Order Comment: 102-2 Performed By: #### L 500.2500, L100.0100 #### [facility] [address] [place], [address] Cholesterol [Mass/Vol] 123 mg/dL Normal <=200 [facility] Comment on above: Order Comment: 102-2 Result Comment: Chol esterol level, Desirable <200 mg/dL Borderline high cholesterol 200-239 mg/dL High cholesterol >=240 mg/dL Recommendations of the NCEP Adult Treatment Panel for the following risk-cutoff thresholds for the [place] population. Performed By: #### L 500.2500, L100.0100 #### [facility] [address] [place], [address] Cholesterol in HDL [Mass/Vol] 55 mg/dL Normal [facility] Comment on above: Order Comment: 102-2 Result Comment: Matilde onal Cholesterol Education Program (NCEP) guidelines: <40 mg/dL: Low HDL-cholesterol (major risk factor for CHD) >= 60 mg/dL: High HDL-cholesterol (negative risk factor for CHD) HDL-cholesterol is affected by a number of factors, e.g. smoking, exercise, hormones, sex and age. Performed By: #### L 500.2500, L100.0100 #### [facility] [address] [place], [address] Cholesterol in LDL [Mass/Vol] 28 mg/dL Normal [facility] Comment on above: Order Comment: 102-2 Result Comment: Bord ccthks=017-384 mg/dL Higher Oefv=241 mg/dL or greater Friedwald Equation for LDL-C Performed By: #### L 500.2500, L100.0100 #### [facility] [address] [place], [address] Cholesterol in VLDL [Mass/Vol] 40 mg/dL Normal 5-40 [facility] Comment on above: Order Comment: 102-2 Performed By: #### L 500.2500, L100.0100 #### [facility] [address] [place], [address] Triglyceride [Mass/Vol] 199 mg/dL Normal [facility] Comment on above: Order Comment: 102-2 Result Comment: The drugs N-Acetylcysteine and Metamizole may falsely depress this assay. Normal range: <150 mg/dL Borderline High: 150-199 mg/dL High: 200-499 mg/dL Very High: >500 mg/dL Performed By: #### L 500.2500, L100.0100 #### [facility] [address] [place], [address] Urinalysis, Routine (Dipstic k)on 06-01-2025 BILIRUBIN URINE Negative Normal Negative [facility] Comment on above: Order Comment: 102-2 Performed By: #### L 500.2500, L100.0100 #### [facility] [address] [place], [address] Clarity (U) Cloudy Normal Clear [facility] Comment on above: Order Comment: 102-2 Performed By: #### L 500.2500, L100.0100 #### [facility] [address] [place], [address] Color (U) Yellow Normal Yellow [facility] Comment on above: Order Comment: 102-2 Performed By: #### L 500.2500, L100.0100 #### [facility] [address] [place], [address] GLUCOSE, UR Normal Normal Normal [facility] Comment on above: Order Comment: 102-2 Performed By: #### L 500.2500, L100.0100 #### [facility] [address] [place], [address] KETONE UR Negative Normal Negative [facility] Comment on above: Order Comment: 102-2 Performed By: #### L 500.2500, L100.0100 #### [facility] [address] [place], [address] LEUK ESTERASE 500 /ul Abnormal Negative [facility] Comment on above: Order Comment: 102-2 Performed By: #### L 500.2500, L100.0100 #### [facility] [address] [place], [address] Nitrite Ql (U) Positive Abnormal Negative [facility] Comment on above: Order Comment: 102-2 Performed By: #### L 500.2500, L100.0100 #### [facility] [address] [place], [address] OCCULT BLOOD-UR 250 /ul Abnormal Negative [facility] Comment on above: Order Comment: 102-2 Performed By: #### L 500.2500, L100.0100 #### [facility] [address] [place], [address] pH UR 6.0 Normal 5.0 - 8.0 [facility] Comment on above: Order Comment: 102-2 Performed By: #### L 500.2500, L100.0100 #### [facility] [address] [place], [address] PROT DIPSTX 30 mg/dl Abnormal Negative [facility] Comment on above: Order Comment: 102-2 Performed By: #### L 500.2500, L100.0100 #### [facility] [address] [place], [address] SP.GR. DIPSTX 1.015 Normal 1.002-1.030 [facility] Comment on above: Order Comment: 102-2 Performed By: #### L 500.2500, L100.0100 #### [facility] [address] [place], [address] UROBILI Normal Normal Normal [facility] Comment on above: Order Comment: 102-2 Performed By: #### L 500.2500, L100.0100 #### [facility] [address] [place], [address] Vitamin D,25 Hydroxyon 06-01 Vitamin D 25-OH 31.8 ng/mL Normal 30-100 [facility] Comment on above: Order Comment: 102-2 Result Comment: Feli min D Status Deficiency: <20 ng/mL (50nmol/L) Insufficiency: 20-30 ng/mL (50-75 nmol/L) Sufficiency: 30-100 ng/mL (75-250 nmol/L) Toxicity: >100 ng/mL (>250 nmol/L) Performed By: #### L 500.2500, L100.0100 #### [facility] [address] [place], [address] MR/PAT.ANEon 05-30-2025 MR[facility]PAT[facility] Medical Records Department [address] [place] [address] PAT - Anesthesia 05/30/25 0905 MR#: [id number] Acct: [id number] Name: GUMARO HUFF Rep #: [id number] : 1945 80 From: Shailesh Russell MD PCP: Dr. Balwinder Alves MD [place] [facility] [place] C [place] [facility] [place]Assessment Diagnosis/Proposed Procedure Planned Operative Procedure(s): RIGHT ESWL CYSTO RIGHT STENT Anesthesia History Anesthesia History - animal taxonomist: Anesthesia History - animal taxonomist Hx Hospitalization No 05/29/25 16:00 Any Problems [...] take am of surgery PONV PONV - animal taxonomist: PONV - animal taxonomist Female Yes 05/29/25 16:00 HX of Motion [...] 05/17/25 10:04 Respiratory Assessment Respiratory Assessment - animal taxonomist: Respiratory Tract Infection Hx - animal taxonomist Hx Respiratory Tract Infection No 05/29/25 16:00 STOP Sleep Apnea STOP Sleep Apnea - animal taxonomist: STOP Sleep Apnea - animal taxonomist Hx Hypertension Yes 05/29/25 16:00 Hx Sleep [...] Tobacco Use History Tobacco Use History - animal taxonomist: Tobacco Use History - animal taxonomist Tobacco Use Smoking Status Former smoker 05/29/25 16:00 Hx Tobacco Use No 05/29/25 16:00 Years Smoking Packs Smoked per Day Smoking Cessation Date was Yes - quit smoking within 15 05/29/25 16:00 within the last 15 years years Hx Smoking Cessation Date 10/05/13 05/29/25 16:00 Hx Smoking Cessation Counseling Hematologic Medial History Hematologic Hx - animal taxonomist: Hematologic Medical Hx - caregiver services home Hx of Blood Transfusion No 05/29/25 16:00 [...] confused, unrespo /Reproduction History /Reproductive History - animal taxonomist: /Reproductive Hx- animal taxonomist Hx Now No 05/29/25 16:00 Gestational Age (in weeks): EDC: Hx Hx Para Hx Section SAB No 05/29/25 16:00 [facility] Medical History (Updated 05/29/25 @ 16:12 by Lana Loo) [facility] [place] [facility] Wears glasses Wears dentures Diabetes Uses wheelchair [...] Extra Stre (more content not included)... Normal [facility] Abdomen Single Viewon 2024 Abdomen Single View [facility] Imaging Services [address] [place] [address] Abdomen Single View MR#: [id number] Acct: [id number] Name: GUMARO HUFF Rep #: [id number] : 1945 F 80 From: Filippo Barth MD PCP: Dr. Balwinder Alves MD Status: REG CLI Study: Abdomen Single View Date of Exam: 05/17/25 Exam# [id number] Ordering Dr: Dorota James MD PROCEDURE: ABDOMEN [...] renal staghorn calculus is redemonstrated. Reading Location: [place] [address] CC: Dr. Dorota James MD; Dr. Balwinder Alves MD [employer]: Signed Normal [facility] Absolute lymphocyte countOrd ered By: Dorota James on 05-17-2025 Lymphocytes Auto (Unsp spec) [#/Vol] 1.88 10*3/uL 0.83-4.51 [facility] Absolute neutrophil countOrd ered By: Dorota James on 05-17-2025 Neutrophils (Bld) [#/Vol] 4.3 10*3/uL 2.0-7.7 [facility] Anion gap in Serum or Plasma Ordered By: Dorota James on 05-17-2025 Anion gap [Moles/Vol] 12 mmol/L 02-16 [facility] Automated lymphocyte count a s percentage of total leukocytesOrdered By: Dorota James on 05-17-2025 Lymphocytes/100 WBC Auto (Unsp spec) 27.0 % - [facility] BUN/creatinine ratioOrdered By: Dorota James on 05-17-2025 Urea nitrogen/Creatinine [Mass ratio] 14.0 mg/mg 07-24 [facility] Basic Metabolic Profile (BMP )on 05-17-2025 BUN/CRE 14.0 RATIO Normal 07-24 [facility] Comment on above: Performed By: #### L 100.0100, L500.2500 #### [facility] [address] [place], [address] GAP 12 Normal 02-16 [facility] Comment on above: Performed By: #### L 100.0100, L500.2500 #### [facility] [address] [place], [address] Potassium [Moles/Vol] 4.7 mmol/L Normal 3.3-5.1 [facility] Comment on above: Performed By: #### L 100.0100, L500.2500 #### [facility] [address] [place], [address] Basophil percentageOrdered B y: Dorota James on 05-17-2025 Basophils/100 WBC (Bld) 0.4 % 0-1 [facility] CBC W/Diff, Automatedon 05-05 Absolute Lymph 1.88 X10 3/uL Normal 0.83-4.51 [facility] Comment on above: Performed By: #### L 100.0100, L500.2500 #### [facility] [address] [place], [address] Absolute Neut 4.3 X10 3/uL Normal 2.0-7.7 [facility] Comment on above: Performed By: #### L 100.0100, L500.2500 #### [facility] [address] [place], [address] Basophils/100 WBC (Bld) 0.4 % Normal 0-1 [facility] Comment on above: Performed By: #### L 100.0100, L500.2500 #### [facility] [address] [place], [address] Eosinophils/100 WBC (Bld) 4.3 % Normal 0-5 [facility] Comment on above: Performed By: #### L 100.0100, L500.2500 #### [facility] [address] [place], [address] Erythrocyte distribution width (RBC) [Ratio] 14.1 % Normal 11.6-14.6 [facility] Comment on above: Performed By: #### L 100.0100, L500.2500 #### [facility] [address] [place], [address] Hematocrit (Bld) [Volume fraction] 39.8 % Normal 37-47 [facility] Comment on above: Performed By: #### L 100.0100, L500.2500 #### [facility] [address] [place], [address] Hemoglobin (Bld) [Mass/Vol] 12.1 g/dL Normal 12.0-15.0 [facility] Comment on above: Performed By: #### L 100.0100, L500.2500 #### [facility] [address] [place], [address] IG% 0.700 Normal 0.0-0.9 [facility] Comment on above: Result Comment: IG% - Immature Granulocytes (promyelocytes, myelocytes and metamyelocytes) > 1% indicates that a LEFT SHIFT is Present. Performed By: #### L 100.0100, L500.2500 #### [facility] [address] [place], [address] Lymphocytes/100 WBC (Bld) 27.0 % Normal 19-41 [facility] Comment on above: Performed By: #### L 100.0100, L500.2500 #### [facility] [address] [place], [address] MCH (RBC) [Entitic mass] 28.7 pg Normal 27.0-32.0 [facility] Comment on above: Performed By: #### L 100.0100, L500.2500 #### [facility] [address] [place], [address] MCHC (RBC) [Mass/Vol] 30.4 g/dL Low 32-36 [facility] Comment on above: Performed By: #### L 100.0100, L500.2500 #### [facility] [address] [place], [address] MCV (RBC) [Entitic vol] 94.5 fL Normal 81-99 [facility] Comment on above: Performed By: #### L 100.0100, L500.2500 #### [facility] [address] [place], [address] Monocytes/100 WBC (Bld) 6.5 % Normal 0-10 [facility] Comment on above: Performed By: #### L 100.0100, L500.2500 #### [facility] [address] [place], [address] Neutrophils/100 WBC (Bld) 61.1 % Normal 47-70 [facility] Comment on above: Performed By: #### L 100.0100, L500.2500 #### [facility] [address] [place], [address] Nucleated RBC (Bld) [#/Vol] 0 10*3/uL Normal 0-5 [facility] Comment on above: Performed By: #### L 100.0100, L500.2500 #### [facility] [address] [place], [address] Platelet mean volume (Bld) [Entitic vol] 8.8 fL Normal 6.2-12.0 [facility] Comment on above: Performed By: #### L 100.0100, L500.2500 #### [facility] [address] [place], [address] Platelets (Bld) [#/Vol] 220 10*3/uL Normal 150-450 [facility] Comment on above: Performed By: #### L 100.0100, L500.2500 #### [facility] [address] [place], [address] RBC (Bld) [#/Vol] 4.21 10*6/uL Normal 4.2-5.4 [facility] Comment on above: Performed By: #### L 100.0100, L500.2500 #### [facility] [address] [place], [address] RDW SD 48.4 fl High 35.1-43.9 [facility] Comment on above: Performed By: #### L 100.0100, L500.2500 #### [facility] [address] [place], [address] WBC (Bld) [#/Vol] 7.0 10*3/uL Normal 4.4-11.0 [facility] Comment on above: Performed By: #### L 100.0100, L500.2500 #### [facility] [address] [place], [address] Carbon dioxide, total [Moles /volume] in Central venous bloodOrdered By: Dorota James on 05-17-2025 CO2 [Moles/Vol] 26.4 mmol/L Normal 21.0-32.0 [facility] Comment on above: Performed By: #### L 100.0100, L500.2500 #### [facility] [address] [place], [address] Chloride assayOrdered By: Manuel James on 05-17-2025 Chloride [Moles/Vol] 99 mmol/L Normal 98-108 [facility] Comment on above: Performed By: #### L 100.0100, L500.2500 #### [facility] [address] [place], [address] Eosinophil percentageOrdered By: Dorota James on 05-17-2025 Eosinophils/100 WBC (Bld) 4.3 % 0-5 [facility] Erythrocyte distribution wid th ratioOrdered By: Dorota James on 05-17-2025 Erythrocyte distribution width (RBC) [Ratio] 14.1 % 11.6-14.6 [facility] Erythrocyte distribution wid th standard deviationOrdered By: Dorota James on 05-17-2025 Erythrocyte distribution width (RBC) [Ratio] 48.4 fl High 35.1-43.9 [facility] Glomerular filtration rate ( GFR) estimation/1.73 sq m using serum, plasma, or whole bOrdered By: Dorota James on 05-17-2025 GFR/1.73 sq M.predicted among non-blacks MDRD (S/P/Bld) [Vol rate/Area] 82 mL/min/{1.73_m2} Normal >60 [facility] Comment on above: mL/min/1.73m2 CKD-EP I Creatinine Equation (2020) Result Comment: mL/m in/1.73m2 CKD-EPI Creatinine Equation (2020) Performed By: #### L 100.0100, L500.2500 #### [facility] [address] [place], [address] Hematocrit Auto (Bld) [Volum e fraction]Ordered By: Dorota James on 05-17-2025 Hematocrit (Bld) [Volume fraction] 39.8 % 37-47 [facility] Hemoglobin measurementOrdere d By: Dorota James on 05-17-2025 Hemoglobin (Bld) [Mass/Vol] 12.1 g/dL 12.0-15.0 [facility] Immature granulocytes/100 WB C Auto (Bld)Ordered By: Dorota James on 05-17-2025 Immature granulocytes/100 WBC (Bld) 0.700 % 0.0-0.9 [facility] Comment on above: IG% - Immature Granu locytes (promyelocytes, myelocytes and metamyelocytes) > 1% indicates that a LEFT SHIFT is Present. Laboratory - Chemistry and C hemistry - challengeOrdered By: Dorota James on 05-17-2025 Bilirubin Ql (U) Negative [facility] Glucose Ql (U) Negative [facility] Ketones Ql (U) Negative [facility] pH (U) 5 [pH] [facility] Specific gravity (U) [Rel density] 1.010 [facility] Urobilinogen (U) [Mass/Vol] Negative [facility] - Hematology and Cell countsOrdered By: Dorota James on 05-17-2025 Hemoglobin Ql (U) Negative [facility] - UrinalysisOrder ed By: Dorota James on 05-17-2025 Nitrite Ql (U) Positive [facility] Protein Ql (U) Negative [facility] MCV (mean corpuscular volume ) determinationOrdered By: Dorota James on 05-17-2025 MCV (RBC) [Entitic vol] 94.5 fL 81-99 [facility] MR/HUAcarly 05-17-2025 MR/HUA [facility] [address], [address] [place] [address] OFFICE VISIT Date of Service: 05/17/25 MR#: [id number] Acct: [id number] Name: GUMARO HUFF Rep #: [id number] : 1945 Provider: Dr. Dorota Key i, MD Age/Sex: 80/F Location: [facility] Status: Signed Intake Vital Signs 02/06/24 15:49 05/17/25 10:04 Height 5 ft 9 in 5 ft 9 in Weight: 270 lb BMI 39.9 BP 150/90 H Pulse 76 Intake Visit Reasons: ct follow up Chief Complaint: ct follow up Adoption Counselor Required: No Accompanied by: Daughter Is patient [...] Nurse's Note: oxycodone not helping pain anymore. [facility] Medical History (Updated 05/17/25 @ 11:47 by [...] dizziness, weakness, (more content not included)... Normal [facility] Mean corpuscular hemoglobin (MCH) determinationOrdered By: Dorota James on 05-17-2025 MCH (RBC) [Entitic mass] 28.7 pg 27.0-32.0 [facility] Mean corpuscular hemoglobin concentration (MCHC) determinationOrdered By: Dorota James on 05-17-2025 MCHC (RBC) [Mass/Vol] 30.4 g/dL Low 32-36 [facility] Mean platelet volume determi nationOrdered By: Dorota James on 05-17-2025 Platelet mean volume (Bld) [Entitic vol] 8.8 fL 6.2-12.0 [facility] Monocyte percentageOrdered B y: Dorota James on 05-17-2025 Monocytes/100 WBC (Bld) 6.5 % 0-10 [facility] Neutrophil percentageOrdered By: Dorota James on 05-17-2025 Neutrophils/100 WBC (Bld) 61.1 % 47-70 [facility] No Panel InformationOrdered By: Dorota James on 05-17-2025 Urine Leukocytes Positive [facility] Urine Non-Hemolyzed Blood Negative [facility] Nucleated red blood cell per centageOrdered By: Dorota James on 05-17-2025 Nucleated RBC/100 WBC (Bld) [Ratio] 0 % 0-5 [facility] Platelet countOrdered By: Manuel James on 05-17-2025 Platelets (Bld) [#/Vol] 220 10*3/uL 150-450 [facility] Potassium measurement (mass/ volume)Ordered By: Dorota James on 05-17-2025 Potassium (Unsp spec) [Mass/Vol] 4.7 mmol/L 3.3-5.1 [facility] RBC Auto (Bld) [#/Vol]Ordere d By: Dorota James on 05-17-2025 RBC (Bld) [#/Vol] 4.21 10*6/uL 4.2-5.4 [facility] Serum creatinine measurement (mass/volume)Ordered By: Dorota James on 05-17-2025 Creatinine [Mass/Vol] 0.73 mg/dL Normal 0.70-1.20 [facility] Comment on above: Performed By: #### L 100.0100, L500.2500 #### [facility] [address] [place], [address] Serum glucose measurement (m ass/volume)Ordered By: Dorota James on 05-17-2025 Glucose [Mass/Vol] 179 mg/dL High 70-99 [facility] Comment on above: Performed By: #### L 100.0100, L500.2500 #### [facility] [address] [place], [address] Serum or plasma calcium jacqueline urement (mass/volume)Ordered By: Dorota James on 05-17-2025 Calcium [Mass/Vol] 9.5 mg/dL Normal 7.6-11.0 [facility] Comment on above: Performed By: #### L 100.0100, L500.2500 #### [facility] [address] [place], [address] Serum or plasma urea nitroge n measurement (mass/volume)Ordered By: Dorota James on 05-17-2025 Urea nitrogen [Mass/Vol] 10 mg/dL Normal 4-19 [facility] Comment on above: Performed By: #### L 100.0100, L500.2500 #### [facility] [address] [place], [address] Sodium levelOrdered By: Sarah James on 05-17-2025 Sodium [Moles/Vol] 137 mmol/L Normal 133-145 [facility] Comment on above: Performed By: #### L 100.0100, L500.2500 #### [facility] [address] [facility] [place], [address] White blood cell (WBC) count Ordered By: Dorota James on 05-17-2025 WBC (Bld) [#/Vol] 7.0 10*3/uL 4.4-11.0 [facility] Abdomen/Pelvis without Conto n 03-31-2025 Abdomen/Pelvis without Cont [facility] Imaging Services [address] [address] Abdomen/Pelvis without Cont MR#: [id number] Acct: [id number] Name: DARIAGUMARO L Rep #: [id number] : 1945 F 80 From: Douglas ceron MD PCP: Dr. Balwinder Alves MD Status: REG CLI Study: Abdomen/Pelvis without Cont Date of Exam: 03/06 04/28 Exam# [id number] Ordering Dr: Dorota James MD PROCEDURE: ABDOMEN/PELVIS [...] Sigmoid diverticulosis. Status post cholecystectomy. Reading Location: [facility] CC: Dr. Dorota James MD; Dr. Balwinder Alves MD [employer]: Signed Normal [facility] Anion gap in Serum or Plasma Ordered By: Balwinder Alves on 03-16-2025 Anion gap [Moles/Vol] 11 mmol/L 5-15 [facility] BUN/creatinine ratioOrdered By: Balwinder Alves on 03-16-2025 Urea nitrogen/Creatinine [Mass ratio] 13.7 mg/mg 10-20 [facility] Basic Metabolic Profile (BMP )on 03-16-2025 BUN/CRE 13.7 RATIO Normal 10-20 [facility] Comment on above: Order Comment: 102-2 Performed By: #### L 500.2500, L100.0100 #### [facility] [address] [place], [address] Calcium [Mass/Vol] 9.6 mg/dL Normal 7.6-11.0 [facility] Comment on above: Order Comment: 102-2 Performed By: #### L 500.2500, L100.0100 #### [facility] [address] [place], [address] Chloride [Moles/Vol] 99 mmol/L Normal 98-108 [facility] Comment on above: Order Comment: 102-2 Performed By: #### L 500.2500, L100.0100 #### [facility] [address] [place], [address] CO2 [Moles/Vol] 28.0 mmol/L Normal 21.0-32.0 [facility] Comment on above: Order Comment: 102-2 Performed By: #### L 500.2500, L100.0100 #### [facility] [address] [place], [address] Creatinine [Mass/Vol] 0.67 mg/dL Low 0.70-1.20 [facility] Comment on above: Order Comment: 102-2 Performed By: #### L 500.2500, L100.0100 #### [facility] [address] [place], [address] GAP 11 Normal 5-15 [facility] Comment on above: Order Comment: 102-2 Performed By: #### L 500.2500, L100.0100 #### [facility] [address] [place], [address] GFR/1.73 sq M.predicted among non-blacks MDRD (S/P/Bld) [Vol rate/Area] 87 mL/min/{1.73_m2} Normal >60 [facility] Comment on above: Order Comment: 102-2 Result Comment: mL/m in/1.73m2 CKD-EPI Creatinine Equation (2020) Performed By: #### L 500.2500, L100.0100 #### [facility] [address] [place], [address] Glucose [Mass/Vol] 222 mg/dL High 70-99 [facility] Comment on above: Order Comment: 102-2 Performed By: #### L 500.2500, L100.0100 #### [facility] [address] [place], [address] Potassium [Moles/Vol] 4.3 mmol/L Normal 3.3-5.1 [facility] Comment on above: Order Comment: 102-2 Performed By: #### L 500.2500, L100.0100 #### [facility] [address] [place], [address] Sodium [Moles/Vol] 139 mmol/L Normal 133-145 [facility] Comment on above: Order Comment: 102-2 Performed By: #### L 500.2500, L100.0100 #### [facility] [address] [place], [address] Urea nitrogen [Mass/Vol] 9 mg/dL Normal 4-19 [facility] Comment on above: Order Comment: 102-2 Performed By: #### L 500.2500, L100.0100 #### [facility] [address] [place], [address] CBC-Complete Blood Cnt No Di ffon 03-16-2025 Erythrocyte distribution width (RBC) [Ratio] 15.1 % High 11.6-14.6 [facility] Comment on above: Order Comment: 102-2 Performed By: #### L 500.2500, L100.0100 #### [facility] [address] [place], [address] Hematocrit (Bld) [Volume fraction] 35.7 % Low 37-47 [facility] Comment on above: Order Comment: 102-2 Performed By: #### L 500.2500, L100.0100 #### [facility] [address] [place], [address] Hemoglobin (Bld) [Mass/Vol] 10.9 g/dL Low 12.0-15.0 [facility] Comment on above: Order Comment: 102-2 Performed By: #### L 500.2500, L100.0100 #### [facility] [address] [place], [address] MCH (RBC) [Entitic mass] 28.8 pg Normal 27.0-32.0 [facility] Comment on above: Order Comment: 102-2 Performed By: #### L 500.2500, L100.0100 #### [facility] [address] [place], [address] MCHC (RBC) [Mass/Vol] 30.5 g/dL Low 32-36 [facility] Comment on above: Order Comment: 102-2 Performed By: #### L 500.2500, L100.0100 #### [facility] [address] [place], [address] MCV (RBC) [Entitic vol] 94.4 fL Normal 81-99 [facility] Comment on above: Order Comment: 102-2 Performed By: #### L 500.2500, L100.0100 #### [facility] [address] [place], [address] Platelet mean volume (Bld) [Entitic vol] 8.6 fL Normal 6.2-12.0 [facility] Comment on above: Order Comment: 102-2 Performed By: #### L 500.2500, L100.0100 #### [facility] [address] [place], [address] Platelets (Bld) [#/Vol] 187 10*3/uL Normal 150-450 [facility] Comment on above: Order Comment: 102-2 Performed By: #### L 500.2500, L100.0100 #### [facility] [address] [place], [address] RBC (Bld) [#/Vol] 3.78 10*6/uL Low 4.2-5.4 [facility] Comment on above: Order Comment: 102-2 Performed By: #### L 500.2500, L100.0100 #### [facility] [address] [place], [address] RDW SD 51.7 fl High 35.1-43.9 [facility] Comment on above: Order Comment: 102-2 Performed By: #### L 500.2500, L100.0100 #### [facility] [address] [place], [address] WBC (Bld) [#/Vol] 7.1 10*3/uL Normal 4.4-11.0 [facility] Comment on above: Order Comment: 102-2 Performed By: #### L 500.2500, L100.0100 #### [facility] [address] [place], [address] Carbon dioxide, total [Moles /volume] in Central venous bloodOrdered By: Balwinder Alves on 03-16-2025 CO2 [Moles/Vol] 28.0 mmol/L 21.0-32.0 [facility] Chloride assayOrdered By: Jen Alves on 03-16-2025 Chloride [Moles/Vol] 99 mmol/L 98-108 [facility] Erythrocyte distribution wid th ratioOrdered By: Balwinder Alves on 03-16-2025 Erythrocyte distribution width (RBC) [Ratio] 15.1 % High 11.6-14.6 [facility] Erythrocyte distribution wid th standard deviationOrdered By: Balwinder Alves on 03-16-2025 Erythrocyte distribution width (RBC) [Ratio] 51.7 fl High 35.1-43.9 [facility] Glomerular filtration rate ( GFR) estimation/1.73 sq m using serum, plasma, or whole bOrdered By: Balwinder Alves on 03-16-2025 GFR/1.73 sq M.predicted among non-blacks MDRD (S/P/Bld) [Vol rate/Area] 87 mL/min/{1.73_m2} >60 [facility] Comment on above: mL/min/1.73m2 CKD-EP I Creatinine Equation (2020) Hematocrit Auto (Bld) [Volum e fraction]Ordered By: Balwinder Alves on 03-16-2025 Hematocrit (Bld) [Volume fraction] 35.7 % Low 37-47 [facility] Hemoglobin measurementOrdere d By: Balwinder Alves on 03-16-2025 Hemoglobin (Bld) [Mass/Vol] 10.9 g/dL Low 12.0-15.0 [facility] MCV (mean corpuscular volume ) determinationOrdered By: Balwinder Alves on 03-16-2025 MCV (RBC) [Entitic vol] 94.4 fL 81-99 [facility] Mean corpuscular hemoglobin (MCH) determinationOrdered By: Balwinder Alves on 03-16-2025 MCH (RBC) [Entitic mass] 28.8 pg 27.0-32.0 [facility] Mean corpuscular hemoglobin concentration (MCHC) determinationOrdered By: Balwinder Alves on 03-16-2025 MCHC (RBC) [Mass/Vol] 30.5 g/dL Low 32-36 [facility] Mean platelet volume determi nationOrdered By: Balwinder Alves on 03-16-2025 Platelet mean volume (Bld) [Entitic vol] 8.6 fL 6.2-12.0 [facility] Platelet countOrdered By: Jen Alves on 03-16-2025 Platelets (Bld) [#/Vol] 187 10*3/uL 150-450 [facility] Potassium measurement (mass/ volume)Ordered By: Balwinder Alves on 03-16-2025 Potassium (Unsp spec) [Mass/Vol] 4.3 mmol/L 3.3-5.1 [facility] RBC Auto (Bld) [#/Vol]Ordere d By: Balwinder Alves on 03-16-2025 RBC (Bld) [#/Vol] 3.78 10*6/uL Low 4.2-5.4 [facility] Serum creatinine measurement (mass/volume)Ordered By: Balwinder Alves on 03-16-2025 Creatinine [Mass/Vol] 0.67 mg/dL Low 0.70-1.20 [facility] Serum glucose measurement (m ass/volume)Ordered By: Balwinder Alves on 03-16-2025 Glucose [Mass/Vol] 222 mg/dL High 70-99 [facility] Serum or plasma calcium jacqueline urement (mass/volume)Ordered By: Balwinder Alves on 03-16-2025 Calcium [Mass/Vol] 9.6 mg/dL 7.6-11.0 [facility] Serum or plasma urea nitroge n measurement (mass/volume)Ordered By: Balwinder Alves on 03-16-2025 Urea nitrogen [Mass/Vol] 9 mg/dL 4-19 [facility] Sodium levelOrdered By: Balwinder Alves on 03-16-2025 Sodium [Moles/Vol] 139 mmol/L 133-145 [facility] White blood cell (WBC) count Ordered By: Balwinder Alves on 03-16-2025 WBC (Bld) [#/Vol] 7.1 10*3/uL 4.4-11.0 [facility] Anion gap in Serum or Plasma Ordered By: Balwinder Alves on 03-15-2025 Anion gap [Moles/Vol] 9 mmol/L 5-15 [facility] BUN/creatinine ratioOrdered By: Balwinder Alves on 03-15-2025 Urea nitrogen/Creatinine [Mass ratio] 13.6 mg/mg 10- [facility] Basic Metabolic Profile (BMP )on 03-15-2025 BUN/CRE 13.6 RATIO Normal 10- [facility] Comment on above: Order Comment: 102-2 Performed By: #### L 500.2500, L100.0100 #### [facility] [place], [address] Calcium [Mass/Vol] 9.6 mg/dL Normal 7.6-11.0 [facility] Comment on above: Order Comment: 102-2 Performed By: #### L 500.2500, L100.0100 #### [facility] [address] [place], [address] Chloride [Moles/Vol] 98 mmol/L Normal 98-108 [facility] Comment on above: Order Comment: 102-2 Performed By: #### L 500.2500, L100.0100 #### [facility] [address] [place], [address] CO2 [Moles/Vol] 30.1 mmol/L Normal 21.0-32.0 [facility] Comment on above: Order Comment: 102-2 Performed By: #### L 500.2500, L100.0100 #### [facility] [address] [place], [address] Creatinine [Mass/Vol] 0.79 mg/dL Normal 0.70-1.20 [facility] Comment on above: Order Comment: 102-2 Performed By: #### L 500.2500, L100.0100 #### [facility] [address] [place], [address] GAP 9 Normal 5-15 [facility] Comment on above: Order Comment: 102-2 Performed By: #### L 500.2500, L100.0100 #### [facility] [address] [place], [address] GFR/1.73 sq M.predicted among non-blacks MDRD (S/P/Bld) [Vol rate/Area] 75 mL/min/{1.73_m2} Normal >60 [facility] Comment on above: Order Comment: 102-2 Result Comment: mL/m in/1.73m2 CKD-EPI Creatinine Equation (2020) Performed By: #### L 500.2500, L100.0100 #### [facility] [address] [place], [address] Glucose [Mass/Vol] 188 mg/dL High 70-99 [facility] Comment on above: Order Comment: 102-2 Performed By: #### L 500.2500, L100.0100 #### [facility] [address] [place], [address] Potassium [Moles/Vol] 4.7 mmol/L Normal 3.3-5.1 [facility] Comment on above: Order Comment: 102-2 Performed By: #### L 500.2500, L100.0100 #### [facility] [address] [place], [address] Sodium [Moles/Vol] 137 mmol/L Normal 133-145 [facility] Comment on above: Order Comment: 102-2 Performed By: #### L 500.2500, L100.0100 #### [facility] [address] [place], [address] Urea nitrogen [Mass/Vol] 11 mg/dL Normal 4-19 [facility] Comment on above: Order Comment: 102-2 Performed By: #### L 500.2500, L100.0100 #### [facility] [address] [place], [address] CBC-Complete Blood Cnt No Di ffon 03-15-2025 Erythrocyte distribution width (RBC) [Ratio] 15.2 % High 11.6-14.6 [facility] Comment on above: Order Comment: 102-2 Performed By: #### L 500.2500, L100.0100 #### [facility] [address] [place], [address] Hematocrit (Bld) [Volume fraction] 36.2 % Low 37-47 [facility] Comment on above: Order Comment: 102-2 Performed By: #### L 500.2500, L100.0100 #### [facility] [address] [place], [address] Hemoglobin (Bld) [Mass/Vol] 11.1 g/dL Low 12.0-15.0 [facility] Comment on above: Order Comment: 102-2 Performed By: #### L 500.2500, L100.0100 #### [facility] [address] [place], [address] MCH (RBC) [Entitic mass] 28.9 pg Normal 27.0-32.0 [facility] Comment on above: Order Comment: 102-2 Performed By: #### L 500.2500, L100.0100 #### [facility] [address] [place], [address] MCHC (RBC) [Mass/Vol] 30.7 g/dL Low 32-36 [facility] Comment on above: Order Comment: 102-2 Performed By: #### L 500.2500, L100.0100 #### [facility] [address] [place], [address] MCV (RBC) [Entitic vol] 94.3 fL Normal 81-99 [facility] Comment on above: Order Comment: 102-2 Performed By: #### L 500.2500, L100.0100 #### [facility] [address] [place], [address] Platelet mean volume (Bld) [Entitic vol] 8.4 fL Normal 6.2-12.0 [facility] Comment on above: Order Comment: 102-2 Performed By: #### L 500.2500, L100.0100 #### [facility] [address] [place], [address] Platelets (Bld) [#/Vol] 177 10*3/uL Normal 150-450 [facility] Comment on above: Order Comment: 102-2 Performed By: #### L 500.2500, L100.0100 #### [facility] [address] [place], [address] RBC (Bld) [#/Vol] 3.84 10*6/uL Low 4.2-5.4 [facility] Comment on above: Order Comment: 102-2 Performed By: #### L 500.2500, L100.0100 #### [facility] [address] [place], [address] RDW SD 52.1 fl High 35.1-43.9 [facility] Comment on above: Order Comment: 102-2 Performed By: #### L 500.2500, L100.0100 #### [facility] [address] [place], [address] WBC (Bld) [#/Vol] 7.1 10*3/uL Normal 4.4-11.0 [facility] Comment on above: Order Comment: 102-2 Performed By: #### L 500.2500, L100.0100 #### [facility] [address] [place], [address] Carbon dioxide, total [Moles /volume] in Central venous bloodOrdered By: Balwinder Alves on 03-15-2025 CO2 [Moles/Vol] 30.1 mmol/L 21.0-32.0 [facility] Chloride assayOrdered By: Jen Alves on 03-15-2025 Chloride [Moles/Vol] 98 mmol/L 98-108 [facility] Erythrocyte distribution wid th ratioOrdered By: Balwinder Alves on 03-15-2025 Erythrocyte distribution width (RBC) [Ratio] 15.2 % High 11.6-14.6 [facility] Erythrocyte distribution wid th standard deviationOrdered By: Balwinder Alves on 03-15-2025 Erythrocyte distribution width (RBC) [Ratio] 52.1 fl High 35.1-43.9 [facility] Glomerular filtration rate ( GFR) estimation/1.73 sq m using serum, plasma, or whole bOrdered By: Balwinder Alves on 03-15-2025 GFR/1.73 sq M.predicted among non-blacks MDRD (S/P/Bld) [Vol rate/Area] 75 mL/min/{1.73_m2} >60 [facility] Comment on above: mL/min/1.73m2 CKD-EP I Creatinine Equation (2020) Hematocrit Auto (Bld) [Volum e fraction]Ordered By: Balwinder Alves on 03-15-2025 Hematocrit (Bld) [Volume fraction] 36.2 % Low 37-47 [facility] Hemoglobin measurementOrdere d By: Balwinder Alves on 03-15-2025 Hemoglobin (Bld) [Mass/Vol] 11.1 g/dL Low 12.0-15.0 [facility] MCV (mean corpuscular volume ) determinationOrdered By: Balwinder Alves on 03-15-2025 MCV (RBC) [Entitic vol] 94.3 fL 81-99 [facility] Mean corpuscular hemoglobin (MCH) determinationOrdered By: Balwinder Alves on 03-15-2025 MCH (RBC) [Entitic mass] 28.9 pg 27.0-32.0 [facility] Mean corpuscular hemoglobin concentration (MCHC) determinationOrdered By: Balwinder Alves on 03-15-2025 MCHC (RBC) [Mass/Vol] 30.7 g/dL Low 32-36 [facility] Mean platelet volume determi nationOrdered By: Balwinder Alves on 03-15-2025 Platelet mean volume (Bld) [Entitic vol] 8.4 fL 6.2-12.0 [facility] Platelet countOrdered By: Jen Alves on 03-15-2025 Platelets (Bld) [#/Vol] 177 10*3/uL 150-450 [facility] Potassium measurement (mass/ volume)Ordered By: Balwinder Alves on 03-15-2025 Potassium (Unsp spec) [Mass/Vol] 4.7 mmol/L 3.3-5.1 [facility] RBC Auto (Bld) [#/Vol]Ordere d By: Balwinder Alves on 03-15-2025 RBC (Bld) [#/Vol] 3.84 10*6/uL Low 4.2-5.4 [facility] Serum creatinine measurement (mass/volume)Ordered By: Balwinder Alves on 03-15-2025 Creatinine [Mass/Vol] 0.79 mg/dL 0.70-1.20 [facility] Serum glucose measurement (m ass/volume)Ordered By: Balwinder Alves on 03-15-2025 Glucose [Mass/Vol] 188 mg/dL High 70-99 [facility] Serum or plasma calcium jacqueline urement (mass/volume)Ordered By: Balwinder Alves on 03-15-2025 Calcium [Mass/Vol] 9.6 mg/dL 7.6-11.0 [facility] Serum or plasma urea nitroge n measurement (mass/volume)Ordered By: Balwinder Alves on 03-15-2025 Urea nitrogen [Mass/Vol] 11 mg/dL 4-19 [facility] Sodium levelOrdered By: Balwinder Alves on 03-15-2025 Sodium [Moles/Vol] 137 mmol/L 133-145 [facility] White blood cell (WBC) count Ordered By: Balwinder Alves on 03-15-2025 WBC (Bld) [#/Vol] 7.1 10*3/uL 4.4-11.0 [facility] Urine Cultureon 03-06-2025 URC #1 POSSIBLE E. COLI 0157. UNABLE TO CONFIRM, TESTING DISCONTINUED AT [facility]. Urine Culture Copy of report sent to Infection Control Printer [id number] 03/04/25 1000 ANDREA. Urine Culture RESULTS CALLED TO XAVIER Flowers 03/06/25 1412 Lorrie Patterson. REPORT READ BACK BY . Urine Culture Urine Culture ESBL Escherichia coli [place] Count 80,000-100,000 MARKER ESBL producing OrganismA MARKER [...] S Tobramycin Islt PREM <=1 S Normal [facility] Comment on above: Performed By: #### M 100.2200, L400.2010 #### [facility] [address] [place], [address] Bilirubin Test strip Ql (U)O rdered By: Balwinder Alves on 03-02-2025 Bilirubin Ql (U) Negative Negative [facility] Ketones Test strip Ql (U)Ord ered By: Balwinder Alves on 03-02-2025 Ketones Ql (U) Negative Negative [facility] Nitrite Test strip Ql (U)Ord ered By: Balwinder Alves on 03-02-2025 Nitrite Ql (U) Positive High Negative [facility] Protein Test strip Ql (U)Ord ered By: Balwinder Alves on 03-02-2025 Protein Ql (U) 30 mg/dl High Negative [facility] Urinalysis, Routine (Dipstic k)on 03-02-2025 BILIRUBIN URINE Negative Normal Negative [facility] Comment on above: Order Comment: 102-2 Performed By: #### L 500.2500, L100.0100 #### [facility] [address] [place], [address] Clarity (U) Sl. Cloudy Normal Clear [facility] Comment on above: Order Comment: 102-2 Performed By: #### L 500.2500, L100.0100 #### [facility] [address] [place], [address] Color (U) Yellow Normal Yellow [facility] Comment on above: Order Comment: 102-2 Performed By: #### L 500.2500, L100.0100 #### [facility] [address] [place], [address] GLUCOSE, UR Normal Normal Normal [facility] Comment on above: Order Comment: 102-2 Performed By: #### L 500.2500, L100.0100 #### [facility] [address] [place], [address] KETONE UR Negative Normal Negative [facility] Comment on above: Order Comment: 102-2 Performed By: #### L 500.2500, L100.0100 #### [facility] [address] [place], [address] LEUK ESTERASE 500 /ul Abnormal Negative [facility] Comment on above: Order Comment: 102-2 Performed By: #### L 500.2500, L100.0100 #### [facility] [address] [place], [address] Nitrite Ql (U) Positive Abnormal Negative [facility] Comment on above: Order Comment: 102-2 Performed By: #### L 500.2500, L100.0100 #### [facility] [address] [place], [address] OCCULT BLOOD-UR 50 /ul Abnormal Negative [facility] Comment on above: Order Comment: 102-2 Performed By: #### L 500.2500, L100.0100 #### [facility] [address] [place], [address] pH UR 6.0 Normal 5.0 - 8.0 [facility] Comment on above: Order Comment: 102-2 Performed By: #### L 500.2500, L100.0100 #### [facility] [address] [place], [address] PROT DIPSTX 30 mg/dl Abnormal Negative [facility] Comment on above: Order Comment: 102-2 Performed By: #### L 500.2500, L100.0100 #### [facility] [address] [place], [address] SP.GR. DIPSTX 1.010 Normal 1.002-1.030 [facility] Comment on above: Order Comment: 102-2 Performed By: #### L 500.2500, L100.0100 #### [facility] [address] [place], [address] UROBILI Normal Normal Normal [facility] Comment on above: Order Comment: 102-2 Performed By: #### L 500.2500, L100.0100 #### [facility] [address] [place], [address] Urine clarityOrdered By: Javed Alves on 03-02-2025 Clarity (U) Sl. Cloudy Clear [facility] Urine color determinationOrd ered By: Balwinder Alves on 03-02-2025 Color (U) Yellow Yellow [facility] Urine cultureOrdered By: Javed Alves on 03-02-2025 Bacteria identified Cx Nom (U) ESBL Escherichia coli Abnormal [facility] Urine glucose detectionOrder ed By: Balwinder Alves on 03-02-2025 Glucose Ql (U) Normal mg/dl Normal [facility] Urine leukocyte esterase det ection by dipstickOrdered By: Balwinder Alves on 03-02-2025 Leukocyte esterase Test strip Ql (U) 500 /ul High Negative [facility] Urine pHOrdered By: Balwinder blackman on 03-02-2025 pH (U) 6.0 [pH] 5.0 - 8.0 [facility] Urine specific gravity measu rementOrdered By: Balwinder Alves on 03-02-2025 Specific gravity (U) [Rel density] 1.010 1.002-1.030 [facility] Urine urobilinogen measureme ntOrdered By: Balwinder Alves on 03-02-2025 Urobilinogen Ql (U) Normal mg/dl Normal [facility] Urine Cultureon 02-10-2025 URC Copy of report sent to Infection Control Printer [id number] 02/09/25 08Amari MENDEZ. Urine Culture RESULTS CALLED TO AUSTEN GARCIA 02/09/25 0813 Alesia Barrera. REPORT READ BACK SAME. Urine Culture Urine Culture Urine Culture ESBL Escherichia coli [place] Count >100,000 MARKER ESBL producing OrganismA MARKER [...] S Tobramycin Islt PREM <=1 S Normal [facility] Comment on above: Performed By: #### M 100.2199, L4.2010 #### [facility] [address] [place], [address] Bilirubin Test strip Ql (U)O rdered By: Balwinder Alves on 02-07-2025 Bilirubin Ql (U) Negative Negative [facility] Ketones Test strip Ql (U)Ord ered By: Balwinder Alves on 02-07-2025 Ketones Ql (U) Negative Negative [facility] Nitrite Test strip Ql (U)Ord ered By: Balwinder Alves on 02-07-2025 Nitrite Ql (U) Positive High Negative [facility] Protein Test strip Ql (U)Ord ered By: Balwinder Alves on 02-07-2025 Protein Ql (U) 15 mg/dl High Negative [facility] Urinalysis, Routine (Dipstic k)on 02-07-2025 Clarity (U) Clear Normal Clear [facility] Comment on above: Order Comment: CLEAN CATCH Performed By: #### M 100.2199, L4 #### [facility] [address] [place], [address] Color (U) Yellow Normal Yellow [facility] Comment on above: Order Comment: CLEAN CATCH Performed By: #### M 100.2199, L4 #### [facility] [address] [place], [address] BILIRUBIN URINE Negative Normal Negative [facility] Comment on above: Order Comment: CLEAN CATCH Performed By: #### M 100.2199, L400 #### [facility] [address] [place], [address] GLUCOSE, UR Normal Normal Normal [facility] Comment on above: Order Comment: CLEAN CATCH Performed By: #### M 100.0, L400 #### [facility] [address] [place], [address] KETONE UR Negative Normal Negative [facility] Comment on above: Order Comment: CLEAN CATCH Performed By: #### M 100.2199, L4.2010 #### [facility] [address] [place], [address] LEUK ESTERASE 500 /ul Abnormal Negative [facility] Comment on above: Order Comment: CLEAN CATCH Performed By: #### M 100.2199, L4 #### [facility] [address] [place], [address] Nitrite Ql (U) Positive Abnormal Negative [facility] Comment on above: Order Comment: CLEAN CATCH Performed By: #### M , L4 #### [facility] [address] [place], [address] OCCULT BLOOD-UR 25 /ul Abnormal Negative [facility] Comment on above: Order Comment: CLEAN CATCH Performed By: #### M , L4 #### [facility] [address] [place], [address] pH UR 6.5 Normal 5.0 - 8.0 [facility] Comment on above: Order Comment: CLEAN CATCH Performed By: #### M , L4 #### [facility] [address] [place], [address] PROT DIPSTX 15 mg/dl Abnormal Negative [facility] Comment on above: Order Comment: CLEAN CATCH Performed By: #### M , L4 #### [facility] [address] [place], [address] SP.GR. DIPSTX 1.005 Normal 1.002-1.030 [facility] Comment on above: Order Comment: CLEAN CATCH Performed By: #### M , L4 #### [facility] [address] [place], [address] UROBILI Normal Normal Normal [facility] Comment on above: Order Comment: CLEAN CATCH Performed By: #### M 100.1970, L400.2010 #### [facility] [address] [place], [address] Urine clarityOrdered By: Javed Alves on 02-07-2025 Clarity (U) Clear Clear [facility] Urine color determinationOrd ered By: Balwinder Alves on 02-07-2025 Color (U) Yellow Yellow [facility] Urine cultureOrdered By: Javed Alves on 02-07-2025 Bacteria identified Cx Nom (U) ESBL Escherichia coli Abnormal [facility] Urine glucose detectionOrder ed By: Balwinder Alves on 02-07-2025 Glucose Ql (U) Normal mg/dl Normal [facility] Urine leukocyte esterase det ection by dipstickOrdered By: Balwinder Alves on 02-07-2025 Leukocyte esterase Test strip Ql (U) 500 /ul High Negative [facility] Urine pHOrdered By: Balwinder blackman on 02-07-2025 pH (U) 6.5 [pH] 5.0 - 8.0 [facility] Urine specific gravity measu rementOrdered By: Balwinder Alves on 02-07-2025 Specific gravity (U) [Rel density] 1.005 1.002-1.030 [facility] Urine urobilinogen measureme ntOrdered By: Balwinder Alves on 02-07-2025 Urobilinogen Ql (U) Normal mg/dl Normal [facility] Urine Cultureon 01-27-2025 URC STRAIGHT CATH #1 Possible E.coli 0157. Confirmation testing unable to be performed, test discontinued at [facility]. Urine Culture RESULTS CALLED TO HEATHER Herrera 01/27/25 Nicole Patterson. REPORT READ BACK BY . Urine Culture Copy of report sent to Infection Control Printer [id number] 01/27/25 1041 ESSENCE. Urine Culture ESBL Escherichia coli [place] Count 80,000-100,000 MARKER ESBL producing OrganismA MARKER ESBL producing OrganismA [place] Count 50,000-80,000 Proteus mirabilis Amikacin Islt PREM [...] TMP SMX Islt PREM <=20 S Normal [facility] Comment on above: Performed By: #### L 400.0001, #### [facility] [address] [place], [place], [address] Urinalysis, Completeon 01-24 BILIRUBIN URINE Negative Normal Negative [facility] Comment on above: Order Comment: STRAI GHT CATH CATHETER SPECIMEN Performed By: #### L 400.0001, #### [facility] [address] [place], [address] Clarity (U) Sl. Cloudy Normal Clear [facility] Comment on above: Order Comment: STRAI GHT CATH CATHETER SPECIMEN Performed By: #### L 400.0001, #### [facility] [address] [place], [address] Color (U) Yellow Normal Yellow [facility] Comment on above: Order Comment: STRAI GHT CATH CATHETER SPECIMEN Performed By: #### L 400.0001, #### [facility] [address] [place], [address] GLUCOSE, UR Normal Normal Normal [facility] Comment on above: Order Comment: STRAI GHT CATH CATHETER SPECIMEN Performed By: #### L 400.0001, #### [facility] [address] [place], [address] KETONE UR Negative Normal Negative [facility] Comment on above: Order Comment: STRAI GHT CATH CATHETER SPECIMEN Performed By: #### L 400.0001, #### [facility] [address] [place], [address] LEUK ESTERASE 500 /ul Abnormal Negative [facility] Comment on above: Order Comment: STRAI GHT CATH CATHETER SPECIMEN Performed By: #### L 400.0001, #### [facility] [address] [place], [address] Nitrite Ql (U) Positive Abnormal Negative [facility] Comment on above: Order Comment: STRAI GHT CATH CATHETER SPECIMEN Performed By: #### L 400.0001, #### [facility] [address] [place], [address] OCCULT BLOOD-UR 50 /ul Abnormal Negative [facility] Comment on above: Order Comment: STRAI GHT CATH CATHETER SPECIMEN Performed By: #### L 400.0001, #### [facility] [address] [place], [address] pH UR 6.5 Normal 5.0 - 8.0 [facility] Comment on above: Order Comment: STRAI GHT CATH CATHETER SPECIMEN Performed By: #### L 400.0001, #### [facility] [address] [place], [address] PROT DIPSTX 15 mg/dl Abnormal Negative [facility] Comment on above: Order Comment: STRAI GHT CATH CATHETER SPECIMEN Performed By: #### L 400.0001, M100.2200 #### [facility] [address] [place], [address] SP.GR. DIPSTX 1.010 Normal 1.002-1.030 [facility] Comment on above: Order Comment: STRAI GHT CATH CATHETER SPECIMEN Performed By: #### L 400.0001, M100.2200 #### [facility] [address] [place], [address] UROBILI Normal Normal Normal [facility] Comment on above: Order Comment: STRAI GHT CATH CATHETER SPECIMEN Performed By: #### L 400.0001, M100.0 #### [facility] [address] [place], [address] Bilirubin Test strip Ql (U)O rdered By: Balwinder Alves on 01-23-2025 Bilirubin Ql (U) Negative Negative [facility] Epithelial cells.squamous LM Ql (Urine sed)Ordered By: Balwinder Alves on 01-23-2025 Epithelial cells.squamous LM.HPF (Urine sed) [#/Area] 0 /[HPF] 5-10 [facility] Glucose Ql (U)Ordered By: Jen Alves on 01-23-2025 Urine Glucose (UA) Normal mg/dl Normal [facility] Ketones Test strip Ql (U)Ord ered By: Balwinder Alves on 01-23-2025 Ketones Ql (U) Negative Negative [facility] Microscopic analysis of urin e for red blood cells (RBC)Ordered By: Balwinder Alves on 01-23-2025 Microscopic analysis of urine for red blood cells (RBC) 0-5 SEEN /hpf 0-5 [facility] Urine RBC 0-5 SEEN /hpf 0-5 [facility] Mucus LM Ql (Urine sed)Order ed By: Balwinder Alves on 01-23-2025 Mucus Ql (Urine sed) 0 SEEN /hpf [facility] Nitrite Test strip Ql (U)Ord ered By: Balwinder Alves on 01-23-2025 Nitrite Ql (U) Positive High Negative [facility] Protein Test strip Ql (U)Ord ered By: Balwinder Alves on 01-23-2025 Protein Ql (U) 15 mg/dl High Negative [facility] Squamous epithelial cells de tection in urine sediment by light microscopyOrdered By: Balwinder Alves on 01-23-2025 Epithelial cells.squamous LM Ql (Urine sed) 0-5 SEEN /hpf 5-10 [facility] Urine blood detectionOrdered By: Balwinder Alves on 01-23-2025 Urine Occult Blood 50 /ul High Negative [facility] Urine clarityOrdered By: Javed Alves on 01-23-2025 Clarity (U) Sl. Cloudy Clear [facility] Urine color determinationOrd ered By: Balwinder Alves on 01-23-2025 Color (U) Yellow Yellow [facility] Urine cultureOrdered By: Javed Alves on 01-23-2025 Bacteria identified Cx Nom (U) ESBL Escherichia coli Abnormal [facility] Bacteria identified Cx Nom (U) Proteus mirabilis Abnormal [facility] Urine glucose detectionOrder ed By: Balwinder Alves on 01-23-2025 Glucose Ql (U) Normal mg/dl Normal [facility] Urine leukocyte esterase det ection by dipstickOrdered By: Balwinder Alves on 01-23-2025 Leukocyte esterase Test strip Ql (U) 500 /ul High Negative [facility] Urine pHOrdered By: Balwinder blackman on 01-23-2025 pH (U) 6.5 [pH] 5.0 - 8.0 [facility] Urine sediment bacteria coun t by microscopy (number/high power field)Ordered By: Balwinder Alves on 01-23-2025 Bacteria LM.HPF (Urine sed) [#/Area] 2 /[HPF] None Seen [facility] Urine specific gravity measu rementOrdered By: Balwinder Alves on 01-23-2025 Specific gravity (U) [Rel density] 1.010 1.002-1.030 [facility] Urine urobilinogen measureme ntOrdered By: Balwinder Alves on 01-23-2025 Urobilinogen Ql (U) Normal mg/dl Normal [facility] Urobilinogen Ql (U)Ordered B y: Balwinder Alves on 01-23-2025 Urine Urobilinogen Normal mg/dl Normal [facility] White blood cell countOrdere d By: Balwinder Alves on 01-23-2025 Urine WBC 5-10 SEEN /hpf 0-5 [facility] White blood cell count 5-10 SEEN /hpf 0-5 [facility] Urine Cultureon 01-13-2025 URC #1 POSSIBLE ECOLI 0157. Unable to send to [facility] for confirmation testing due to new [facility] policies regarding serotyping and virulence profiling. Urine Culture Copy of report sent to In[facility] Printer [id number] 01/11/25 1618 ASNIPES. ESBL Escherichia coli [place] Count 50,000-80,000 MARKER ESBL producing OrganismA MARKER ESBL producing OrganismA [place] Count 50,000-80,000 Escherichia coli [place] Count 50,000-80,000 ESBL Escherichia coli: REACTION Proteus [...] TMP SMX Islt PREM <=20 S Normal [facility] Comment on above: Performed By: #### L 400.2010, M100.0 #### [facility] [address] [place], [place], [id number] Bilirubin Test strip Ql (U)O rdered By: Balwinder Alves on 01-09-2025 Bilirubin Ql (U) Negative Negative [facility] Glucose Ql (U)Ordered By: Jen Alves on 01-09-2025 Urine Glucose (UA) Normal mg/dl Normal [facility] Ketones Test strip Ql (U)Ord ered By: Balwinder Alves on 01-09-2025 Ketones Ql (U) Negative Negative [facility] Nitrite Test strip Ql (U)Ord ered By: Balwinder Alves on 01-09-2025 Nitrite Ql (U) Positive High Negative [facility] Protein Test strip Ql (U)Ord ered By: Balwinder Alves on 01-09-2025 Protein Ql (U) 30 mg/dl High Negative [facility] Urinalysis, Routine (Dipstic k)on 01-09-2025 BILIRUBIN URINE Negative Normal Negative [facility] Comment on above: Order Comment: ALFA TER SPECIMEN Performed By: #### L 400.2010, #### [facility] [address] [place], [address] Clarity (U) Cloudy Normal Clear [facility] Comment on above: Order Comment: ALFA TER SPECIMEN Performed By: #### L 400.2010, #### [facility] [address] [place], [address] Color (U) Yellow Normal Yellow [facility] Comment on above: Order Comment: ALFA TER SPECIMEN Performed By: #### L 400.2010, #### [facility] [address] [place], [address] GLUCOSE, UR Normal Normal Normal [facility] Comment on above: Order Comment: ALFA TER SPECIMEN Performed By: #### L 400.2010, #### [facility] [address] [place], [address] KETONE UR Negative Normal Negative [facility] Comment on above: Order Comment: ALFA TER SPECIMEN Performed By: #### L 400.2010, #### [facility] [address] [place], [address] LEUK ESTERASE 500 /ul Abnormal Negative [facility] Comment on above: Order Comment: ALFA TER SPECIMEN Performed By: #### L 400.2010, #### [facility] [address] [place], [address] Nitrite Ql (U) Positive Abnormal Negative [facility] Comment on above: Order Comment: ALFA TER SPECIMEN Performed By: #### L 400.2010, #### [facility] [address] [place], [address] OCCULT BLOOD-UR 150 /ul Abnormal Negative [facility] Comment on above: Order Comment: ALFA TER SPECIMEN Performed By: #### L 400.2010, #### [facility] [address] [place], [address] pH UR 6.5 Normal 5.0 - 8.0 [facility] Comment on above: Order Comment: ALFA TER SPECIMEN Performed By: #### L 400.2010, #### [facility] [address] [place], [address] PROT DIPSTX 30 mg/dl Abnormal Negative [facility] Comment on above: Order Comment: ALFA TER SPECIMEN Performed By: #### L 400.2010, #### [facility] [address] [place], [address] SP.GR. DIPSTX 1.010 Normal 1.002-1.030 [facility] Comment on above: Order Comment: ALFA TER SPECIMEN Performed By: #### L 400.2010, #### [facility] [address] [place], [address] UROBILI Normal Normal Normal [facility] Comment on above: Order Comment: ALFA TER SPECIMEN Performed By: #### L 400.2010, #### [facility] [address] [place], [address] Urine blood detectionOrdered By: Balwinder Alves on 01-09-2025 Urine Occult Blood 150 /ul High Negative [facility] Urine clarityOrdered By: Javed Alves on 01-09-2025 Clarity (U) Cloudy Clear [facility] Urine color determinationOrd ered By: Balwinder Alves on 01-09-2025 Color (U) Yellow Yellow [facility] Urine cultureOrdered By: Javed Alves on 01-09-2025 Bacteria identified Cx Nom (U) ESBL Escherichia coli Abnormal [facility] Bacteria identified Cx Nom (U) Escherichia coli Abnormal [facility] Bacteria identified Cx Nom (U) Proteus mirabilis Abnormal [facility] Urine glucose detectionOrder ed By: Balwinder Alves on 01-09-2025 Glucose Ql (U) Normal mg/dl Normal [facility] Urine leukocyte esterase det ection by dipstickOrdered By: Balwinder Alves on 01-09-2025 Leukocyte esterase Test strip Ql (U) 500 /ul High Negative [facility] Urine pHOrdered By: Balwinder blackman on 01-09-2025 pH (U) 6.5 [pH] 5.0 - 8.0 [facility] Urine specific gravity measu rementOrdered By: Balwinder Alves on 01-09-2025 Specific gravity (U) [Rel density] 1.010 1.002-1.030 [facility] Urine urobilinogen measureme ntOrdered By: Balwinder Alves on 01-09-2025 Urobilinogen Ql (U) Normal mg/dl Normal [facility] Urobilinogen Ql (U)Ordered B y: Balwinder Alves on 01-09-2025 Urine Urobilinogen Normal mg/dl Normal [facility] Urine Cultureon 01-07-2025 URC #2 Possible E.coli 0157. Unable to send to [facility] for confirmation testing due to new [facility] policies regarding serotyping and virulence profiling. Urine Culture Copy of report sent to Infection Control [facility]inter [id number] 01/06/25 Eric MENDEZ. Urine Culture RESULTS CALLED TO TRISH BOYCE 01/06/25 1321 Alesia Barrera. REPORT READ BACK . Proteus mirabilis [place] Count 50,000-80,000 ESBL Escherichia coli ESBL Escherichia [...] I Cefepime Islt PREM >=32 cefTRIAXone Islt RPEM >=64 R Ciprofloxacin Islt PREM >=4 R [...] <=0.25 Tobramycin Islt PREM <=1 S Normal [facility] Comment on above: Performed By: #### L 400.2199, #### [facility] [address] [place], [place], [address] Urinalysis, Routine (Dipstic k)on 01-03-2025 BILIRUBIN URINE Negative Normal Negative [facility] Comment on above: Order Comment: CLEAN CATCH Performed By: #### L 400.0001, #### [facility] [address] [place], [address] Clarity (U) Sl. Cloudy Normal Clear [facility] Comment on above: Order Comment: CLEAN CATCH Performed By: #### L 400.0001, #### [facility] [address] [place], [address] Color (U) Yellow Normal Yellow [facility] Comment on above: Order Comment: CLEAN CATCH Performed By: #### L 400.0001, #### [facility] [address] [place], [address] GLUCOSE, UR Normal Normal Normal [facility] Comment on above: Order Comment: CLEAN CATCH Performed By: #### L 400.0001, #### [facility] [address] [place], [address] KETONE UR Negative Normal Negative [facility] Comment on above: Order Comment: CLEAN CATCH Performed By: #### L 400.0001, #### [facility] [address] [place], [address] LEUK ESTERASE 500 /ul Abnormal Negative [facility] Comment on above: Order Comment: CLEAN CATCH Performed By: #### L 400.0001, #### [facility] [address] [place], [address] Nitrite Ql (U) Positive Abnormal Negative [facility] Comment on above: Order Comment: CLEAN CATCH Performed By: #### L 400.0001, #### [facility] [address] [place], [address] OCCULT BLOOD-UR 150 /ul Abnormal Negative [facility] Comment on above: Order Comment: CLEAN CATCH Performed By: #### L 400.0001, #### [facility] [address] [place], [address] pH UR 6.5 Normal 5.0 - 8.0 [facility] Comment on above: Order Comment: CLEAN CATCH Performed By: #### L 400.0001, #### [facility] [address] [place], [address] PROT DIPSTX 30 mg/dl Abnormal Negative [facility] Comment on above: Order Comment: CLEAN CATCH Performed By: #### L 400.0001, #### [facility] [address] [place], [address] SP.GR. DIPSTX 1.010 Normal 1.002-1.030 [facility] Comment on above: Order Comment: CLEAN CATCH Performed By: #### L 400.0001, M1.0 #### [facility] [address] [place], [address] UROBILI Normal Normal Normal [facility] Comment on above: Order Comment: CLEAN CATCH Performed By: #### L 400.0001, M1.2199 #### [facility] [address] [place], [address] Bilirubin Test strip Ql (U)O rdered By: Balwinder Alves on 01-02-2025 Bilirubin Ql (U) Negative Negative [facility] Glucose Ql (U)Ordered By: Jen Alves on 01-02-2025 Urine Glucose (UA) Normal mg/dl Normal [facility] Ketones Test strip Ql (U)Ord ered By: Balwinder Alves on 01-02-2025 Ketones Ql (U) Negative Negative [facility] Nitrite Test strip Ql (U)Ord ered By: Balwinder Alves on 01-02-2025 Nitrite Ql (U) Positive High Negative [facility] Protein Test strip Ql (U)Ord ered By: Balwinder Alves on 01-02-2025 Protein Ql (U) 30 mg/dl High Negative [facility] Urine blood detectionOrdered By: Balwinder Alves on 01-02-2025 Urine Occult Blood 150 /ul High Negative [facility] Urine clarityOrdered By: Javed Alves on 01-02-2025 Clarity (U) Sl. Cloudy Clear [facility] Urine color determinationOrd ered By: Balwinder Alves on 01-02-2025 Color (U) Yellow Yellow [facility] Urine cultureOrdered By: Javed Alves on 01-02-2025 Bacteria identified Cx Nom (U) Proteus mirabilis Abnormal [facility] Bacteria identified Cx Nom (U) ESBL Escherichia coli Abnormal [facility] Urine glucose detectionOrder ed By: Balwinder Alves on 01-02-2025 Glucose Ql (U) Normal mg/dl Normal [facility] Urine leukocyte esterase det ection by dipstickOrdered By: Balwinder Alves on 01-02-2025 Leukocyte esterase Test strip Ql (U) 500 /ul High Negative [facility] Urine pHOrdered By: Balwinder blackman on 01-02-2025 pH (U) 6.5 [pH] 5.0 - 8.0 [facility] Urine specific gravity measu rementOrdered By: Balwinder Alves on 01-02-2025 Specific gravity (U) [Rel density] 1.010 1.002-1.030 [facility] Urine urobilinogen measureme ntOrdered By: Balwinder Alves on 01-02-2025 Urobilinogen Ql (U) Normal mg/dl Normal [facility] Urobilinogen Ql (U)Ordered B y: Balwinder Alves on 01-02-2025 Urine Urobilinogen Normal mg/dl Normal [facility] Absolute lymphocyte countOrd ered By: Balwinder Alves on 12-26-2024 Lymphocytes Auto (Unsp spec) [#/Vol] 1.77 10*3/uL 0.83-4.51 [facility] Absolute neutrophil countOrd ered By: Balwinder Alves on 12-26-2024 Neutrophils (Bld) [#/Vol] 4.6 10*3/uL 2.0-7.7 [facility] Anion gap in Serum or Plasma Ordered By: Balwinder Alves on 12-26-2024 Anion gap [Moles/Vol] 9 mmol/L 5-15 [facility] Automated lymphocyte count a s percentage of total leukocytesOrdered By: Balwinder Alves on 12-26-2024 Lymphocytes/100 WBC Auto (Unsp spec) 24.8 % - [facility] BUN/creatinine ratioOrdered By: Balwinder Alves on 12-26-2024 Urea nitrogen/Creatinine [Mass ratio] 12.2 mg/mg 07-24 [facility] Basic Metabolic Profile (BMP )on 12-26-2024 BUN/CRE 12.2 RATIO Normal 07-24 [facility] Comment on above: Order Comment: 102-2 Performed By: #### L 500.2500, L100.0100 #### [facility] [address] [place], [place] [address], [address] Calcium [Mass/Vol] 9.1 mg/dL Normal 7.6-11.0 [facility] Comment on above: Order Comment: 102-2 Performed By: #### L 500.2500, L100.0100 #### [facility] [address] [place], [address] Chloride [Moles/Vol] 99 mmol/L Normal 98-108 [facility] Comment on above: Order Comment: 102-2 Performed By: #### L 500.2500, L100.0100 #### [facility] [address] [place], [address] CO2 [Moles/Vol] 29.0 mmol/L Normal 21.0-32.0 [facility] Comment on above: Order Comment: 102-2 Performed By: #### L 500.2500, L100.0100 #### [facility] [address] [place], [address] Creatinine [Mass/Vol] 0.67 mg/dL Low 0.70-1.20 [facility] Comment on above: Order Comment: 102-2 Performed By: #### L 500.2500, L100.0100 #### [facility] [address] [place], [address] GAP 9 Normal 5-15 [facility] Comment on above: Order Comment: 102-2 Performed By: #### L 500.2500, L100.0100 #### [facility] [address] [place], [address] GFR/1.73 sq M.predicted among non-blacks MDRD (S/P/Bld) [Vol rate/Area] 88 mL/min/{1.73_m2} Normal >60 [facility] Comment on above: Order Comment: 102-2 Result Comment: mL/m in/1.73m2 CKD-EPI Creatinine Equation (2020) Performed By: #### L 500.2500, L100.0100 #### [facility] [address] [place], [address] Glucose [Mass/Vol] 215 mg/dL High 70-99 [facility] Comment on above: Order Comment: 102-2 Performed By: #### L 500.2500, L100.0100 #### [facility] [address] [place], [address] Potassium [Moles/Vol] 4.6 mmol/L Normal 3.3-5.1 [facility] Comment on above: Order Comment: 102-2 Performed By: #### L 500.2500, L100.0100 #### [facility] [address] [place], [address] Sodium [Moles/Vol] 137 mmol/L Normal 133-145 [facility] Comment on above: Order Comment: 102-2 Performed By: #### L 500.2500, L100.0100 #### [facility] [address] [place], [address] Urea nitrogen [Mass/Vol] 8 mg/dL Normal 4-19 [facility] Comment on above: Order Comment: 102-2 Performed By: #### L 500.2500, L100.0100 #### [facility] [address] [place], [address] Basophil percentageOrdered B y: Balwinder Alves on 12-26-2024 Basophils/100 WBC (Bld) 0.6 % 0-1 [facility] CBC W/Diff, Automatedon 12-04 Absolute Lymph 1.77 X10 3/uL Normal 0.83-4.51 [facility] Comment on above: Order Comment: 102-2 Performed By: #### L 500.2500, L100.0100 #### [facility] [address] [place], [address] Absolute Neut 4.6 X10 3/uL Normal 2.0-7.7 [facility] Comment on above: Order Comment: 102-2 Performed By: #### L 500.2500, L100.0100 #### [facility] [address] [place], [address] Basophils/100 WBC (Bld) 0.6 % Normal 0-1 [facility] Comment on above: Order Comment: 102-2 Performed By: #### L 500.2500, L100.0100 #### [facility] [address] [place], [address] Eosinophils/100 WBC (Bld) 2.9 % Normal 0-5 [facility] Comment on above: Order Comment: 102-2 Performed By: #### L 500.2500, L100.0100 #### [facility] [address] [place], [address] Erythrocyte distribution width (RBC) [Ratio] 13.9 % Normal 11.6-14.6 [facility] Comment on above: Order Comment: 102-2 Performed By: #### L 500.2500, L100.0100 #### [facility] [address] [place], [address] Hematocrit (Bld) [Volume fraction] 35.6 % Low 37-47 [facility] Comment on above: Order Comment: 102-2 Performed By: #### L 500.2500, L100.0100 #### [facility] [address] [place], [address] Hemoglobin (Bld) [Mass/Vol] 10.9 g/dL Low 12.0-15.0 [facility] Comment on above: Order Comment: 102-2 Performed By: #### L 500.2500, L100.0100 #### [facility] [address] [place], [address] IG% 0.700 Normal 0.0-0.9 [facility] Comment on above: Order Comment: 102-2 Result Comment: IG% - Immature Granulocytes (promyelocytes, myelocytes and metamyelocytes) > 1% indicates that a LEFT SHIFT is Present. Performed By: #### L 500.2500, L100.0100 #### [facility] [address] [place], [address] Lymphocytes/100 WBC (Bld) 24.8 % Normal 19-41 [facility] Comment on above: Order Comment: 102-2 Performed By: #### L 500.2500, L100.0100 #### [facility] [address] [place], [address] MCH (RBC) [Entitic mass] 28.8 pg Normal 27.0-32.0 [facility] Comment on above: Order Comment: 102-2 Performed By: #### L 500.2500, L100.0100 #### [facility] [address] [place], [address] MCHC (RBC) [Mass/Vol] 30.6 g/dL Low 32-36 [facility] Comment on above: Order Comment: 102-2 Performed By: #### L 500.2500, L100.0100 #### [facility] [address] [place], [address] MCV (RBC) [Entitic vol] 93.9 fL Normal 81-99 [facility] Comment on above: Order Comment: 102-2 Performed By: #### L 500.2500, L100.0100 #### [facility] [address] [place], [address] Monocytes/100 WBC (Bld) 6.3 % Normal 0-10 [facility] Comment on above: Order Comment: 102-2 Performed By: #### L 500.2500, L100.0100 #### [facility] [address] [place], [address] Neutrophils/100 WBC (Bld) 64.7 % Normal 47-70 [facility] Comment on above: Order Comment: 102-2 Performed By: #### L 500.2500, L100.0100 #### [facility] [address] [place], [address] Nucleated RBC (Bld) [#/Vol] 0 10*3/uL Normal 0-5 [facility] Comment on above: Order Comment: 102-2 Performed By: #### L 500.2500, L100.0100 #### [facility] [address] [place], [address] Platelet mean volume (Bld) [Entitic vol] 8.6 fL Normal 6.2-12.0 [facility] Comment on above: Order Comment: 102-2 Performed By: #### L 500.2500, L100.0100 #### [facility] [address] [place], [address] Platelets (Bld) [#/Vol] 221 10*3/uL Normal 150-450 [facility] Comment on above: Order Comment: 102-2 Performed By: #### L 500.2500, L100.0100 #### [facility] [address] [place], [address] RBC (Bld) [#/Vol] 3.79 10*6/uL Low 4.2-5.4 [facility] Comment on above: Order Comment: 102-2 Performed By: #### L 500.2500, L100.0100 #### [facility] [address] [place], [address] RDW SD 47.6 fl High 35.1-43.9 [facility] Comment on above: Order Comment: 102-2 Performed By: #### L 500.2500, L100.0100 #### [facility] [address] [place], [address] WBC (Bld) [#/Vol] 7.1 10*3/uL Normal 4.4-11.0 [facility] Comment on above: Order Comment: 102-2 Performed By: #### L 500.2500, L100.0100 #### [facility] [address] [place], [address] Carbon dioxide, total [Moles /volume] in Central venous bloodOrdered By: Balwinder Alves on 12-26-2024 CO2 [Moles/Vol] 29.0 mmol/L 21.0-32.0 [facility] Chloride assayOrdered By: Jen Alves on 12-26-2024 Chloride [Moles/Vol] 99 mmol/L 98-108 [facility] Eosinophil percentageOrdered By: Balwinder Alves on 12-26-2024 Eosinophils/100 WBC (Bld) 2.9 % 0-5 [facility] Erythrocyte distribution wid th (RBC) [Ratio]Ordered By: Balwinder Alves on 12-26-2024 Erythrocyte distribution width (RBC) [Entitic vol] 47.6 fL High 35.1-43.9 [facility] Erythrocyte distribution wid th ratioOrdered By: Balwinder Alves on 12-26-2024 Erythrocyte distribution width (RBC) [Ratio] 13.9 % 11.6-14.6 [facility] Erythrocyte distribution wid th standard deviationOrdered By: Balwinder Alves on 12-26-2024 Erythrocyte distribution width (RBC) [Ratio] 47.6 fl High 35.1-43.9 [facility] GFR/1.73 sq M.predicted [place] non-blacks MDRD (S/P/Bld) [Vol rate/Area]Ordered By: Balwinder Alves on 12-26-2024 Estimated GFR (MDRD) Non-Af Amer 88 >60 [facility] Comment on above: mL/min/1.73m2 CKD-EP I Creatinine Equation (2020) Glomerular filtration rate ( GFR) estimation/1.73 sq m using serum, plasma, or whole bOrdered By: Balwinder Alves on 12-26-2024 GFR/1.73 sq M.predicted among non-blacks MDRD (S/P/Bld) [Vol rate/Area] 88 mL/min/{1.73_m2} >60 [facility] Comment on above: mL/min/1.73m2 CKD-EP I Creatinine Equation (2020) Hematocrit Auto (Bld) [Volum e fraction]Ordered By: Balwinder Alves on 12-26-2024 Hematocrit (Bld) [Volume fraction] 35.6 % Low 37-47 [facility] Hemoglobin measurementOrdere d By: Balwinder Alves on 12-26-2024 Hemoglobin (Bld) [Mass/Vol] 10.9 g/dL Low 12.0-15.0 [facility] Immature granulocytes/100 WB C Auto (Bld)Ordered By: Balwinder Alves on 12-26-2024 Immature granulocytes/100 WBC (Bld) 0.700 % 0.0-0.9 [facility] Comment on above: IG% - Immature Granu locytes (promyelocytes, myelocytes and metamyelocytes) > 1% indicates that a LEFT SHIFT is Present. Lymphocytes Auto (Unsp spec) [#/Vol]Ordered By: Balwinder Alves on 12-26-2024 Lymphocytes (Bld) [#/Vol] 1.77 10*3/uL 0.83-4.51 [facility] Lymphocytes/100 WBC Auto (Un sp spec)Ordered By: Balwinder Alves on 12-26-2024 Lymphocytes/100 WBC (Bld) 24.8 % 19-41 [facility] MCV (mean corpuscular volume ) determinationOrdered By: Balwinder Alves on 12-26-2024 MCV (RBC) [Entitic vol] 93.9 fL 81-99 [facility] Mean corpuscular hemoglobin (MCH) determinationOrdered By: Balwinder Alves on 12-26-2024 MCH (RBC) [Entitic mass] 28.8 pg 27.0-32.0 [facility] Mean corpuscular hemoglobin concentration (MCHC) determinationOrdered By: Balwinder Alves on 12-26-2024 MCHC (RBC) [Mass/Vol] 30.6 g/dL Low 32-36 [facility] Mean platelet volume determi nationOrdered By: Balwinder Avles on 12-26-2024 Platelet mean volume (Bld) [Entitic vol] 8.6 fL 6.2-12.0 [facility] Monocyte percentageOrdered B y: Balwinder Alves on 12-26-2024 Monocytes/100 WBC (Bld) 6.3 % 0-10 [facility] Neutrophil percentageOrdered By: Balwinder Alves on 12-26-2024 Neutrophils/100 WBC (Bld) 64.7 % 47-70 [facility] Nucleated red blood cell per centageOrdered By: Balwinder Alves on 12-26-2024 Nucleated RBC/100 WBC (Bld) [Ratio] 0 % 0-5 [facility] Platelet countOrdered By: Jen Alves on 12-26-2024 Platelets (Bld) [#/Vol] 221 10*3/uL 150-450 [facility] Potassium (Unsp spec) [Mass/ Vol]Ordered By: Balwinder Alves on 12-26-2024 Potassium [Moles/Vol] 4.6 mmol/L 3.3-5.1 [facility] Potassium measurement (mass/ volume)Ordered By: Balwinder Alves on 12-26-2024 Potassium (Unsp spec) [Mass/Vol] 4.6 mmol/L 3.3-5.1 [facility] RBC Auto (Bld) [#/Vol]Ordere d By: Balwinder Alves on 12-26-2024 RBC (Bld) [#/Vol] 3.79 10*6/uL Low 4.2-5.4 [facility] Serum creatinine measurement (mass/volume)Ordered By: Balwinder Alves on 12-26-2024 Creatinine [Mass/Vol] 0.67 mg/dL Low 0.70-1.20 [facility] Serum glucose measurement (m ass/volume)Ordered By: Balwinder Alves on 12-26-2024 Glucose [Mass/Vol] 215 mg/dL High 70-99 [facility] Serum or plasma calcium jacqueline urement (mass/volume)Ordered By: Balwinder Alves on 12-26-2024 Calcium [Mass/Vol] 9.1 mg/dL 7.6-11.0 [facility] Serum or plasma urea nitroge n measurement (mass/volume)Ordered By: Balwinder Alves on 12-26-2024 Urea nitrogen [Mass/Vol] 8 mg/dL 4-19 [facility] Sodium levelOrdered By: Balwinder Alves on 12-26-2024 Sodium [Moles/Vol] 137 mmol/L 133-145 [facility] White blood cell (WBC) count Ordered By: Balwinder Alves on 12-26-2024 WBC (Bld) [#/Vol] 7.1 10*3/uL 4.4-11.0 [facility] Anion gap in Serum or Plasma Ordered By: Balwinder Alves on 12-16-2024 Anion gap [Moles/Vol] 12 mmol/L - [facility] BUN/creatinine ratioOrdered By: Balwinder Alves on 12-16-2024 Urea nitrogen/Creatinine [Mass ratio] 12.7 mg/mg 07-24 [facility] Basic Metabolic Profile (BMP )on 12-16-2024 BUN/CRE 12.7 RATIO Normal 07-24 [facility] Comment on above: Performed By: #### L 400.0001, #### [facility] [address] [place], [address] Calcium [Mass/Vol] 9.5 mg/dL Normal 7.6-11.0 [facility] Comment on above: Performed By: #### L 400.0001, #### [facility] [address] [place], [address] Chloride [Moles/Vol] 98 mmol/L Normal 98-108 [facility] Comment on above: Performed By: #### L 400.0001, #### [facility] [address] [place], [address] CO2 [Moles/Vol] 26.7 mmol/L Normal 21.0-32.0 [facility] Comment on above: Performed By: #### L 400.0001, #### [facility] [address] [place], [address] Creatinine [Mass/Vol] 0.67 mg/dL Low 0.70-1.20 [facility] Comment on above: Performed By: #### L 400.0001, #### [facility] [address] [place], [address] GAP 12 Normal 02-16 [facility] Comment on above: Performed By: #### L 400.0001, #### [facility] [address] [place], [address] GFR/1.73 sq M.predicted among non-blacks MDRD (S/P/Bld) [Vol rate/Area] 88 mL/min/{1.73_m2} Normal >60 [facility] Comment on above: Result Comment: mL/m in/1.73m2 CKD-EPI Creatinine Equation (2020) Performed By: #### L 400.0001, #### [facility] [address] [place], [address] Glucose [Mass/Vol] 201 mg/dL High 70-99 [facility] Comment on above: Performed By: #### L 400.0001, #### [facility] [address] [place], [address] Potassium [Moles/Vol] 4.6 mmol/L Normal 3.3-5.1 [facility] Comment on above: Performed By: #### L 400.0001, #### [facility] [address] [place], [address] Sodium [Moles/Vol] 137 mmol/L Normal 133-145 [facility] Comment on above: Performed By: #### L 400.0001, #### [facility] [address] [place], [address] Urea nitrogen [Mass/Vol] 8 mg/dL Normal 4-19 [facility] Comment on above: Performed By: #### L 400.0001, #### [facility] [address] [place], [address] CBC-Complete Blood Cnt No Di ffon 12-16-2024 Erythrocyte distribution width (RBC) [Ratio] 13.8 % Normal 11.6-14.6 [facility] Comment on above: Performed By: #### L 400.0001, #### [facility] [address] [place], [address] Hematocrit (Bld) [Volume fraction] 36.2 % Low 37-47 [facility] Comment on above: Performed By: #### L 400.0001, #### [facility] [address] [place], [address] Hemoglobin (Bld) [Mass/Vol] 11.0 g/dL Low 12.0-15.0 [facility] Comment on above: Performed By: #### L 400.0001, #### [facility] [address] [place], [address] MCH (RBC) [Entitic mass] 28.2 pg Normal 27.0-32.0 [facility] Comment on above: Performed By: #### L 400.0001, #### [facility] [address] [place], [address] MCHC (RBC) [Mass/Vol] 30.4 g/dL Low 32-36 [facility] Comment on above: Performed By: #### L 400.0001, #### [facility] [address] [place], [address] MCV (RBC) [Entitic vol] 92.8 fL Normal 81-99 [facility] Comment on above: Performed By: #### L 400.0001, #### [facility] [address] [place], [address] Platelet mean volume (Bld) [Entitic vol] 8.4 fL Normal 6.2-12.0 [facility] Comment on above: Performed By: #### L 400.0001, #### [facility] [address] [place], [address] Platelets (Bld) [#/Vol] 231 10*3/uL Normal 150-450 [facility] Comment on above: Performed By: #### L 400.0001, M1.2199 #### [facility] [address] [place], [address] RBC (Bld) [#/Vol] 3.90 10*6/uL Low 4.2-5.4 [facility] Comment on above: Performed By: #### L 400.0001, M1.2199 #### [facility] [address] [place], [address] RDW SD 47.0 fl High 35.1-43.9 [facility] Comment on above: Performed By: #### L 400.0001, .0 #### [facility] [address] [place], [address] WBC (Bld) [#/Vol] 7.8 10*3/uL Normal 4.4-11.0 [facility] Comment on above: Performed By: #### L 400.0001, .2199 #### [facility] [address] [place], [address] Calculated very low density lipoprotein (VLDL) cholesterol measurementOrdered By: Balwinder Alves on 12-16-2024 Calculated very low density lipoprotein (VLDL) cholesterol measurement 32 mg/dL 5-40 [facility] VLDL Cholesterol 32 mg/dL 5-40 [facility] Carbon dioxide, total [Moles /volume] in Central venous bloodOrdered By: Balwinder Alves on 12-16-2024 CO2 [Moles/Vol] 26.7 mmol/L 21.0-32.0 [facility] Chloride assayOrdered By: Jen Alves on 12-16-2024 Chloride [Moles/Vol] 98 mmol/L 98-108 [facility] Erythrocyte distribution wid th (RBC) [Ratio]Ordered By: Balwinder Alves on 12-16-2024 Erythrocyte distribution width (RBC) [Entitic vol] 47.0 fL High 35.1-43.9 [facility] Erythrocyte distribution wid th ratioOrdered By: Balwinder Alves on 12-16-2024 Erythrocyte distribution width (RBC) [Ratio] 13.8 % 11.6-14.6 [facility] Erythrocyte distribution wid th standard deviationOrdered By: Balwinder Alves on 12-16-2024 Erythrocyte distribution width (RBC) [Ratio] 47.0 fl High 35.1-43.9 [facility] GFR/1.73 sq M.predicted philipp g non-blacks MDRD (S/P/Bld) [Vol rate/Area]Ordered By: Balwinder Alves on 12-16-2024 Estimated GFR (MDRD) Non-Af Amer 88 >60 [facility] Comment on above: mL/min/1.73m2 CKD-EP I Creatinine Equation (2020) Glomerular filtration rate ( GFR) estimation/1.73 sq m using serum, plasma, or whole bOrdered By: Balwinder Alves on 12-16-2024 GFR/1.73 sq M.predicted among non-blacks MDRD (S/P/Bld) [Vol rate/Area] 88 mL/min/{1.73_m2} >60 [facility] Comment on above: mL/min/1.73m2 CKD-EP I Creatinine Equation (2020) Hematocrit Auto (Bld) [Volum e fraction]Ordered By: Balwinder Alves on 12-16-2024 Hematocrit (Bld) [Volume fraction] 36.2 % Low 37-47 [facility] Hemoglobin A1con 12-16-2024 HbA1c (Bld) [Mass fraction] 8.4 % Normal <=5.6 [facility] Comment on above: Performed By: #### L 400.0001, M100.2200 #### [facility] [address] [place] [address], [id number] Hemoglobin A1c percentageOrd ered By: Balwinder Alves on 12-16-2024 HbA1c (Bld) [Mass fraction] 8.4 % >5.7 [facility] Hemoglobin measurementOrdere d By: Balwinder Alves on 12-16-2024 Hemoglobin (Bld) [Mass/Vol] 11.0 g/dL Low 12.0-15.0 [facility] L506.1001on 12-16-2024 Vitamin D 25-OH 31.6 ng/mL Normal 30-100 [facility] Comment on above: Result Comment: Feli min D Status Deficiency: <20 ng/mL (50nmol/L) Insufficiency: 20-30 ng/mL (50-75 nmol/L) Sufficiency: 30-100 ng/mL (75-250 nmol/L) Toxicity: >100 ng/mL (>250 nmol/L) Performed By: #### L 400.0001, #### [facility] [address], [address] LDL calc ser/plasOrdered By: Balwinder Alves on 12-16-2024 Cholesterol in LDL [Mass/Vol] 22 mg/dL [facility] Comment on above: Buotkgpqhd=090-477 m g/dL & Higher Zofc=676 mg/dL or greater LDL Cholesterol, Calculated 22 mg/dL [facility] Comment on above: Nefgbelngb=344-425 m g/dL & Higher Kigs=217 mg/dL or greater Lipid Profileon 12-16-2024 CHOL:HDL 2.22 Normal [facility] Comment on above: Performed By: #### L 400.0001, #### [facility] [address] [place], [place], [id number] Cholesterol [Mass/Vol] 98 mg/dL Normal <=200 [facility] Comment on above: Result Comment: Chol esterol level, Desirable <200 mg/dL Borderline high cholesterol 200-239 mg/dL High cholesterol >=240 mg/dL Recommendations of the NCEP Adult Treatment Panel for the following risk-cutoff thresholds for the [place] population. Performed By: #### L 400.0001, #### [facility] [address] [place], [address] Cholesterol in HDL [Mass/Vol] 44 mg/dL Normal [facility] Comment on above: Result Comment: Matilde onal Cholesterol Education Program (NCEP) guidelines: <40 mg/dL: Low HDL-cholesterol (major risk factor for CHD) >= 60 mg/dL: High HDL-cholesterol (negative risk factor for CHD) HDL-cholesterol is affected by a number of factors, e.g. smoking, exercise, hormones, sex and age. Performed By: #### L 400.0001, #### [facility] [address] [place], [address] Cholesterol in LDL [Mass/Vol] 22 mg/dL Normal [facility] Comment on above: Result Comment: Bord qghqod=998-349 mg/dL Higher Mhcr=855 mg/dL or greater Performed By: #### L 400.0001, #### [facility] [address] [place], [address] Cholesterol in VLDL [Mass/Vol] 32 mg/dL Normal 5-40 [facility] Comment on above: Performed By: #### L 400.0001, #### [facility] [address] [place], [address] Triglyceride [Mass/Vol] 162 mg/dL Normal [facility] Comment on above: Result Comment: The drugs N-Acetylcysteine and Metamizole may falsely depress this assay. Normal range: <150 mg/dL Borderline High: 150-199 mg/dL High: 200-499 mg/dL Very High: >500 mg/dL Performed By: #### L 400.0001, #### [facility] [address] [place], [address] MCV (mean corpuscular volume ) determinationOrdered By: Balwinder Alves on 12-16-2024 MCV (RBC) [Entitic vol] 92.8 fL 81-99 [facility] Mean corpuscular hemoglobin (MCH) determinationOrdered By: Balwinder Alves on 12-16-2024 MCH (RBC) [Entitic mass] 28.2 pg 27.0-32.0 [facility] Mean corpuscular hemoglobin concentration (MCHC) determinationOrdered By: Balwinder Alves on 12-16-2024 MCHC (RBC) [Mass/Vol] 30.4 g/dL Low 32-36 [facility] Mean platelet volume determi nationOrdered By: Balwinder Alves on 12-16-2024 Platelet mean volume (Bld) [Entitic vol] 8.4 fL 6.2-12.0 [facility] Platelet countOrdered By: Jen Alves on 12-16-2024 Platelets (Bld) [#/Vol] 231 10*3/uL 150-450 [facility] Potassium (Unsp spec) [Mass/ Vol]Ordered By: Balwinder Alves on 12-16-2024 Potassium [Moles/Vol] 4.6 mmol/L 3.3-5.1 [facility] Potassium measurement (mass/ volume)Ordered By: Balwinder Alves on 12-16-2024 Potassium (Unsp spec) [Mass/Vol] 4.6 mmol/L 3.3-5.1 [facility] RBC Auto (Bld) [#/Vol]Ordere d By: Balwinder Alves on 12-16-2024 RBC (Bld) [#/Vol] 3.90 10*6/uL Low 4.2-5.4 [facility] Screening total cholesterol/ high density lipoprotein (HDL) cholesterol ratioOrdered By: Balwinder Alves on 12-16-2024 Cholesterol.total/Jany sterol in HDL [Mass ratio] 2.22 {ratio} [facility] Serum creatinine measurement (mass/volume)Ordered By: Balwinder Alves on 12-16-2024 Creatinine [Mass/Vol] 0.67 mg/dL Low 0.70-1.20 [facility] Serum glucose measurement (m ass/volume)Ordered By: Balwinder Alves on 12-16-2024 Glucose [Mass/Vol] 201 mg/dL High 70-99 [facility] Serum or plasma calcium jacqueline urement (mass/volume)Ordered By: Balwinder Alves on 12-16-2024 Calcium [Mass/Vol] 9.5 mg/dL 7.6-11.0 [facility] Serum or plasma cholesterol in HDL measurement (mass/volume)Ordered By: Balwinder Alves on 12-16-2024 Cholesterol in HDL [Mass/Vol] 44 mg/dL >40 [facility] Comment on above: National Cholesterol Education Program (NCEP) guidelines:<40 mg/dL: Low HDL-cholesterol (major risk factor for CHD)>= 60 mg/dL: High HDL-cholesterol (negative risk factor for CHD)HDL-cholesterol is affected by a number of factors, e.g. smoking, exercise, hormones, sex and age. Serum or plasma cholesterol measurement (mass/volume)Ordered By: Balwinder Alves on 12-16-2024 Cholesterol [Mass/Vol] 98 mg/dL <201 [facility] Comment on above: Cholesterol level, D esirable <200 mg/dLBorderline high cholesterol 200-239 mg/dLHigh cholesterol >=240 mg/dLRecommendations of the NCEP Adult Treatment Panel for the following risk-cutoff thresholds for the [place] population. Serum or plasma urea nitroge n measurement (mass/volume)Ordered By: Balwinder Alves on 12-16-2024 Urea nitrogen [Mass/Vol] 8 mg/dL 4-19 [facility] Sodium levelOrdered By: Balwinder Alves on 12-16-2024 Sodium [Moles/Vol] 137 mmol/L 133-145 [facility] Triglycerides measurementOrd ered By: Balwinder Alves on 12-16-2024 Triglyceride [Mass/Vol] 162 mg/dL <199 [facility] Comment on above: The drugs N-Acetylcy steine and Metamizole may falsely depress this assay. Normal range: <150 mg/dLBorderline High: 150-199 mg/dLHigh: 200-499 mg/dLVery High: >500 mg/dL Vitamin D, 25-hydroxyOrdered By: Balwinder Alves on 12-16-2024 Vitamin D 25-Hydroxy 31.6 ng/mL 30-100 [facility] Comment on above: Vitamin D StatusDefi ciency: <20 ng/mL (50nmol/L)Insufficiency: 20-30 ng/mL (50-75 nmol/L)Sufficiency: 30-100 ng/mL (75-250 nmol/L)Toxicity: >100 ng/mL (>250 nmol/L) White blood cell (WBC) count Ordered By: Balwinder Alves on 12-16-2024 WBC (Bld) [#/Vol] 7.8 10*3/uL 4.4-11.0 [facility] Absolute lymphocyte countOrd ered By: Balwinder Alves on 12-14-2024 Lymphocytes Auto (Unsp spec) [#/Vol] 1.93 10*3/uL 0.83-4.51 [facility] Absolute neutrophil countOrd ered By: Balwinder Alves on 12-14-2024 Neutrophils (Bld) [#/Vol] 4.0 10*3/uL 2.0-7.7 [facility] Anion gap in Serum or Plasma Ordered By: Balwinder Alves on 12-14-2024 Anion gap [Moles/Vol] 11 mmol/L 5-15 [facility] Automated lymphocyte count a s percentage of total leukocytesOrdered By: Balwinder Alves on 12-14-2024 Lymphocytes/100 WBC Auto (Unsp spec) 28.7 % - [facility] BUN/creatinine ratioOrdered By: Balwinder Alves on 12-14-2024 Urea nitrogen/Creatinine [Mass ratio] 10.3 mg/mg - [facility] Basic Metabolic Profile (BMP )on 12-14-2024 BUN/CRE 10.3 RATIO Normal 07-24 [facility] Comment on above: Order Comment: 102-2 Performed By: #### L 500.2500, L100.0100 #### [facility] [address] [place], [address] Calcium [Mass/Vol] 9.2 mg/dL Normal 7.6-11.0 [facility] Comment on above: Order Comment: 102-2 Performed By: #### L 500.2500, L100.0100 #### [facility] [address] [place], [address] Chloride [Moles/Vol] 101 mmol/L Normal 98-108 [facility] Comment on above: Order Comment: 102-2 Performed By: #### L 500.2500, L100.0100 #### [facility] [address] [place], [address] CO2 [Moles/Vol] 27.6 mmol/L Normal 21.0-32.0 [facility] Comment on above: Order Comment: 102-2 Performed By: #### L 500.2500, L100.0100 #### [facility] [address] [place], [address] Creatinine [Mass/Vol] 0.68 mg/dL Low 0.70-1.20 [facility] Comment on above: Order Comment: 102-2 Performed By: #### L 500.2500, L100.0100 #### [facility] [address] [place], [address] GAP 11 Normal 5-15 [facility] Comment on above: Order Comment: 102-2 Performed By: #### L 500.2500, L100.0100 #### [facility] [address] [place], [address] GFR/1.73 sq M.predicted among non-blacks MDRD (S/P/Bld) [Vol rate/Area] 88 mL/min/{1.73_m2} Normal >60 [facility] Comment on above: Order Comment: 102-2 Result Comment: mL/m in/1.73m2 CKD-EPI Creatinine Equation (2020) Performed By: #### L 500.2500, L100.0100 #### [facility] [address] [place], [address] Glucose [Mass/Vol] 177 mg/dL High 70-99 [facility] Comment on above: Order Comment: 102-2 Performed By: #### L 500.2500, L100.0100 #### [facility] [address] [place], [address] Potassium [Moles/Vol] 4.3 mmol/L Normal 3.3-5.1 [facility] Comment on above: Order Comment: 102-2 Performed By: #### L 500.2500, L100.0100 #### [facility] [address] [place], [address] Sodium [Moles/Vol] 139 mmol/L Normal 133-145 [facility] Comment on above: Order Comment: 102-2 Performed By: #### L 500.2500, L100.0100 #### [facility] [address] [place], [address] Urea nitrogen [Mass/Vol] 7 mg/dL Normal 4-19 [facility] Comment on above: Order Comment: 102-2 Performed By: #### L 500.2500, L100.0100 #### [facility] [address] [place], [address] Basophil percentageOrdered B y: Balwinder Alves on 12-14-2024 Basophils/100 WBC (Bld) 0.3 % 0-1 [facility] CBC W/Diff, Automatedon 12-03-2024 Absolute Lymph 1.93 X10 3/uL Normal 0.83-4.51 [facility] Comment on above: Order Comment: 102-2 Performed By: #### L 500.2500, L100.0100 #### [facility] [address] [place], [address] Absolute Neut 4.0 X10 3/uL Normal 2.0-7.7 [facility] Comment on above: Order Comment: 102-2 Performed By: #### L 500.2500, L100.0100 #### [facility] [address] [place], [address] Basophils/100 WBC (Bld) 0.3 % Normal 0-1 [facility] Comment on above: Order Comment: 102-2 Performed By: #### L 500.2500, L100.0100 #### [facility] [address] [place], [address] Eosinophils/100 WBC (Bld) 3.1 % Normal 0-5 [facility] Comment on above: Order Comment: 102-2 Performed By: #### L 500.2500, L100.0100 #### [facility] [address] [place], [address] Erythrocyte distribution width (RBC) [Ratio] 13.6 % Normal 11.6-14.6 [facility] Comment on above: Order Comment: 102-2 Performed By: #### L 500.2500, L100.0100 #### [facility] [address] [place], [address] Hematocrit (Bld) [Volume fraction] 35.6 % Low 37-47 [facility] Comment on above: Order Comment: 102-2 Performed By: #### L 500.2500, L100.0100 #### [facility] [address] [place], [address] Hemoglobin (Bld) [Mass/Vol] 10.9 g/dL Low 12.0-15.0 [facility] Comment on above: Order Comment: 102-2 Performed By: #### L 500.2500, L100.0100 #### [facility] [address] [place], [address] IG% 1.000 High 0.0-0.9 [facility] Comment on above: Order Comment: 102-2 Result Comment: IG% - Immature Granulocytes (promyelocytes, myelocytes and metamyelocytes) > 1% indicates that a LEFT SHIFT is Present. Performed By: #### L 500.2500, L100.0100 #### [facility] [address] [place], [address] Lymphocytes/100 WBC (Bld) 28.7 % Normal 19-41 [facility] Comment on above: Order Comment: 102-2 Performed By: #### L 500.2500, L100.0100 #### [facility] [address] [place], [address] MCH (RBC) [Entitic mass] 28.2 pg Normal 27.0-32.0 [facility] Comment on above: Order Comment: 102-2 Performed By: #### L 500.2500, L100.0100 #### [facility] [address] [place], [address] MCHC (RBC) [Mass/Vol] 30.6 g/dL Low 32-36 [facility] Comment on above: Order Comment: 102-2 Performed By: #### L 500.2500, L100.0100 #### [facility] [address] [place], [address] MCV (RBC) [Entitic vol] 92.0 fL Normal 81-99 [facility] Comment on above: Order Comment: 102-2 Performed By: #### L 500.2500, L100.0100 #### [facility] [address] [place], [address] Monocytes/100 WBC (Bld) 6.8 % Normal 0-10 [facility] Comment on above: Order Comment: 102-2 Performed By: #### L 500.2500, L100.0100 #### [facility] [address] [place], [address] Neutrophils/100 WBC (Bld) 60.1 % Normal 47-70 [facility] Comment on above: Order Comment: 102-2 Performed By: #### L 500.2500, L100.0100 #### [facility] [address] [place], [address] Nucleated RBC (Bld) [#/Vol] 0 10*3/uL Normal 0-5 [facility] Comment on above: Order Comment: 102-2 Performed By: #### L 500.2500, L100.0100 #### [facility] [address] [place], [address] Platelet mean volume (Bld) [Entitic vol] 8.5 fL Normal 6.2-12.0 [facility] Comment on above: Order Comment: 102-2 Performed By: #### L 500.2500, L100.0100 #### [facility] [address] [place], [address] Platelets (Bld) [#/Vol] 213 10*3/uL Normal 150-450 [facility] Comment on above: Order Comment: 102-2 Performed By: #### L 500.2500, L100.0100 #### [facility] [address] [place], [address] RBC (Bld) [#/Vol] 3.87 10*6/uL Low 4.2-5.4 [facility] Comment on above: Order Comment: 102-2 Performed By: #### L 500.2500, L100.0100 #### [facility] [address] [place], [address] RDW SD 46.1 fl High 35.1-43.9 [facility] Comment on above: Order Comment: 102-2 Performed By: #### L 500.2500, L100.0100 #### [facility] [address] [place], [address] WBC (Bld) [#/Vol] 6.7 10*3/uL Normal 4.4-11.0 [facility] Comment on above: Order Comment: 102-2 Performed By: #### L 500.2500, L100.0100 #### [facility] [address] [place], [address] Calculated very low density lipoprotein (VLDL) cholesterol measurementOrdered By: Balwinder Alves on 12-14-2024 Calculated very low density lipoprotein (VLDL) cholesterol measurement 29 mg/dL 5-40 [facility] VLDL Cholesterol 29 mg/dL 5-40 [facility] Carbon dioxide, total [Moles /volume] in Central venous bloodOrdered By: Balwinder Alves on 12-14-2024 CO2 [Moles/Vol] 27.6 mmol/L 21.0-32.0 [facility] Chloride assayOrdered By: Jen Alves on 12-14-2024 Chloride [Moles/Vol] 101 mmol/L 98-108 [facility] Eosinophil percentageOrdered By: Balwinder Alves on 12-14-2024 Eosinophils/100 WBC (Bld) 3.1 % 0-5 [facility] Erythrocyte distribution wid th (RBC) [Ratio]Ordered By: Balwinder Alves on 12-14-2024 Erythrocyte distribution width (RBC) [Entitic vol] 46.1 fL High 35.1-43.9 [facility] Erythrocyte distribution wid th ratioOrdered By: Balwinder Alves on 12-14-2024 Erythrocyte distribution width (RBC) [Ratio] 13.6 % 11.6-14.6 [facility] Erythrocyte distribution wid th standard deviationOrdered By: Balwinder Alves on 12-14-2024 Erythrocyte distribution width (RBC) [Ratio] 46.1 fl High 35.1-43.9 [facility] GFR/1.73 sq M.predicted philipp g non-blacks MDRD (S/P/Bld) [Vol rate/Area]Ordered By: Balwinder Alves on 12-14-2024 Estimated GFR (MDRD) Non-Af Amer 88 >60 [facility] Comment on above: mL/min/1.73m2 CKD-EP I Creatinine Equation (2020) Glomerular filtration rate ( GFR) estimation/1.73 sq m using serum, plasma, or whole bOrdered By: Balwinder Alves on 12-14-2024 GFR/1.73 sq M.predicted among non-blacks MDRD (S/P/Bld) [Vol rate/Area] 88 mL/min/{1.73_m2} >60 [facility] Comment on above: mL/min/1.73m2 CKD-EP I Creatinine Equation (2020) Hematocrit Auto (Bld) [Volum e fraction]Ordered By: Balwinder Alves on 12-14-2024 Hematocrit (Bld) [Volume fraction] 35.6 % Low 37-47 [facility] Hemoglobin A1con 12-14-2024 HbA1c (Bld) [Mass fraction] 8.6 % Normal <=5.6 [facility] Comment on above: Order Comment: 102-2 Performed By: #### L 500.2500, L100.0100 #### [facility] [address] [place] [address], [address] Hemoglobin A1c percentageOrd ered By: Balwinder Alves on 12-14-2024 HbA1c (Bld) [Mass fraction] 8.6 % >5.7 [facility] Hemoglobin measurementOrdere d By: Balwinder Alves on 12-14-2024 Hemoglobin (Bld) [Mass/Vol] 10.9 g/dL Low 12.0-15.0 [facility] Immature granulocytes/100 WB C Auto (Bld)Ordered By: Balwinder Alves on 12-14-2024 Immature granulocytes/100 WBC (Bld) 1.000 % High 0.0-0.9 [facility] Comment on above: IG% - Immature Granu locytes (promyelocytes, myelocytes and metamyelocytes) > 1% indicates that a LEFT SHIFT is Present. L506.1001on 12-14-2024 Vitamin D 25-OH 31.2 ng/mL Normal 30-100 [facility] Comment on above: Order Comment: 102-2 Result Comment: Feli min D Status Deficiency: <20 ng/mL (50nmol/L) Insufficiency: 20-30 ng/mL (50-75 nmol/L) Sufficiency: 30-100 ng/mL (75-250 nmol/L) Toxicity: >100 ng/mL (>250 nmol/L) Performed By: #### L 500.2500, L100.0100 #### [facility] [address] [place], [place], [address] LDL calc ser/plasOrdered By: Balwinder Alves on 12-14-2024 Cholesterol in LDL [Mass/Vol] 22 mg/dL [facility] Comment on above: Mrxqsiromv=293-265 m g/dL & Higher Dlww=972 mg/dL or greater LDL Cholesterol, Calculated 22 mg/dL [facility] Comment on above: Ftxtnjzhnc=767-469 m g/dL & Higher Fcec=924 mg/dL or greater Lipid Profileon 12-14-2024 CHOL:HDL 2.29 Normal [facility] Comment on above: Order Comment: 102-2 Performed By: #### L 500.2500, L100.0100 #### [facility] [address] [place], [place], [address] Cholesterol [Mass/Vol] 91 mg/dL Normal <=200 [facility] Comment on above: Order Comment: 102-2 Result Comment: Chol esterol level, Desirable <200 mg/dL Borderline high cholesterol 200-239 mg/dL High cholesterol >=240 mg/dL Recommendations of the NCEP Adult Treatment Panel for the following risk-cutoff thresholds for the [place] population. Performed By: #### L 500.2500, L100.0100 #### [facility] [address] [place], [address] Cholesterol in HDL [Mass/Vol] 40 mg/dL Normal [facility] Comment on above: Order Comment: 102-2 Result Comment: Matilde onal Cholesterol Education Program (NCEP) guidelines: <40 mg/dL: Low HDL-cholesterol (major risk factor for CHD) >= 60 mg/dL: High HDL-cholesterol (negative risk factor for CHD) HDL-cholesterol is affected by a number of factors, e.g. smoking, exercise, hormones, sex and age. Performed By: #### L 500.2500, L100.0100 #### [facility] [address] [place], [address] Cholesterol in LDL [Mass/Vol] 22 mg/dL Normal [facility] Comment on above: Order Comment: 102-2 Result Comment: Bord bsbnoz=728-891 mg/dL Higher Guje=568 mg/dL or greater Performed By: #### L 500.2500, L100.0100 #### [facility] [address] [place], [address] Cholesterol in VLDL [Mass/Vol] 29 mg/dL Normal 5-40 [facility] Comment on above: Order Comment: 102-2 Performed By: #### L 500.2500, L100.0100 #### [facility] [address] [place], [address] Triglyceride [Mass/Vol] 146 mg/dL Normal [facility] Comment on above: Order Comment: 102-2 Result Comment: The drugs N-Acetylcysteine and Metamizole may falsely depress this assay. Normal range: <150 mg/dL Borderline High: 150-199 mg/dL High: 200-499 mg/dL Very High: >500 mg/dL Performed By: #### L 500.2500, L100.0100 #### [facility] [address] [place], [address] Lymphocytes Auto (Unsp spec) [#/Vol]Ordered By: Balwinder Alves on 12-14-2024 Lymphocytes (Bld) [#/Vol] 1.93 10*3/uL 0.83-4.51 [facility] Lymphocytes/100 WBC Auto (Un sp spec)Ordered By: Balwinder Alves on 12-14-2024 Lymphocytes/100 WBC (Bld) 28.7 % 19-41 [facility] MCV (mean corpuscular volume ) determinationOrdered By: Balwinder Alves on 12-14-2024 MCV (RBC) [Entitic vol] 92.0 fL 81-99 [facility] Mean corpuscular hemoglobin (MCH) determinationOrdered By: Balwinder Alves on 12-14-2024 MCH (RBC) [Entitic mass] 28.2 pg 27.0-32.0 [facility] Mean corpuscular hemoglobin concentration (MCHC) determinationOrdered By: Balwinder Alves on 12-14-2024 MCHC (RBC) [Mass/Vol] 30.6 g/dL Low 32-36 [facility] Mean platelet volume determi nationOrdered By: Balwinder Alves on 12-14-2024 Platelet mean volume (Bld) [Entitic vol] 8.5 fL 6.2-12.0 [facility] Monocyte percentageOrdered B y: Balwinder Alves on 12-14-2024 Monocytes/100 WBC (Bld) 6.8 % 0-10 [facility] Neutrophil percentageOrdered By: Balwinder Alves on 12-14-2024 Neutrophils/100 WBC (Bld) 60.1 % 47-70 [facility] Nucleated red blood cell per centageOrdered By: Balwinder Alves on 12-14-2024 Nucleated RBC/100 WBC (Bld) [Ratio] 0 % 0-5 [facility] Platelet countOrdered By: Jen Alves on 12-14-2024 Platelets (Bld) [#/Vol] 213 10*3/uL 150-450 [facility] Potassium (Unsp spec) [Mass/ Vol]Ordered By: Balwinder Alves on 12-14-2024 Potassium [Moles/Vol] 4.3 mmol/L 3.3-5.1 [facility] Potassium measurement (mass/ volume)Ordered By: Balwinder Alves on 12-14-2024 Potassium (Unsp spec) [Mass/Vol] 4.3 mmol/L 3.3-5.1 [facility] RBC Auto (Bld) [#/Vol]Ordere d By: Balwinder Alves on 12-14-2024 RBC (Bld) [#/Vol] 3.87 10*6/uL Low 4.2-5.4 [facility] Screening total cholesterol/ high density lipoprotein (HDL) cholesterol ratioOrdered By: Balwinder Alves on 12-14-2024 Cholesterol.total/Jany sterol in HDL [Mass ratio] 2.29 {ratio} [facility] Serum creatinine measurement (mass/volume)Ordered By: Balwinder Alves on 12-14-2024 Creatinine [Mass/Vol] 0.68 mg/dL Low 0.70-1.20 [facility] Serum glucose measurement (m ass/volume)Ordered By: Balwinder Alves on 12-14-2024 Glucose [Mass/Vol] 177 mg/dL High 70-99 [facility] Serum or plasma calcium jacqueline urement (mass/volume)Ordered By: Balwinder Alves on 12-14-2024 Calcium [Mass/Vol] 9.2 mg/dL 7.6-11.0 [facility] Serum or plasma cholesterol in HDL measurement (mass/volume)Ordered By: Balwinder Alves on 12-14-2024 Cholesterol in HDL [Mass/Vol] 40 mg/dL >40 [facility] Comment on above: National Cholesterol Education Program (NCEP) guidelines:<40 mg/dL: Low HDL-cholesterol (major risk factor for CHD)>= 60 mg/dL: High HDL-cholesterol (negative risk factor for CHD)HDL-cholesterol is affected by a number of factors, e.g. smoking, exercise, hormones, sex and age. Serum or plasma cholesterol measurement (mass/volume)Ordered By: Balwinder Alves on 12-14-2024 Cholesterol [Mass/Vol] 91 mg/dL <201 [facility] Comment on above: Cholesterol level, D esirable <200 mg/dLBorderline high cholesterol 200-239 mg/dLHigh cholesterol >=240 mg/dLRecommendations of the NCEP Adult Treatment Panel for the following risk-cutoff thresholds for the [place] population. Serum or plasma urea nitroge n measurement (mass/volume)Ordered By: Balwinder Alves on 2025 Urea nitrogen [Mass/Vol] 7 mg/dL 4-19 [facility] Sodium levelOrdered By: Balwinder Alves on 12-14-2024 Sodium [Moles/Vol] 139 mmol/L 133-145 [facility] Triglycerides measurementOrd ered By: Balwinder Alves on 12-14-2024 Triglyceride [Mass/Vol] 146 mg/dL <199 [facility] Comment on above: The drugs N-Acetylcy steine and Metamizole may falsely depress this assay. Normal range: <150 mg/dLBorderline High: 150-199 mg/dLHigh: 200-499 mg/dLVery High: >500 mg/dL Vitamin D, 25-hydroxyOrdered By: Balwinder Alves on 12-14-2024 Vitamin D 25-Hydroxy 31.2 ng/mL 30-100 [facility] Comment on above: Vitamin D StatusDefi ciency: <20 ng/mL (50nmol/L)Insufficiency: 20-30 ng/mL (50-75 nmol/L)Sufficiency: 30-100 ng/mL (75-250 nmol/L)Toxicity: >100 ng/mL (>250 nmol/L) White blood cell (WBC) count Ordered By: Balwinder Alves on 12-14-2024 WBC (Bld) [#/Vol] 6.7 10*3/uL 4.4-11.0 [facility] Urine Cultureon 10-17-2024 [facility] Copy of report sent to Infection Control Printer [id number] 10/17/24 1000 VSICK. Urine Culture Urine Culture Urine Culture ESBL Escherichia coli [place] Count 80,000-100,000 MARKER ESBL producing OrganismA MARKER ESBL producing OrganismA [place] Count 80,000-100,000 Proteus mirabilis Ampicillin Islt PREM [...] TMP SMX Islt PREM <=20 S Normal [facility] Comment on above: Performed By: #### M 100.2199, L4.2010 #### [facility] [address] [place], [address] Urinalysis, Routine (Dipstic k)on 10-11-2024 BILIRUBIN URINE Negative Normal Negative [facility] Comment on above: Order Comment: CLEAN CATCH Performed By: #### M .2199, L4 #### [facility] [address] [place], [address] Clarity (U) Sl. Cloudy Normal Clear [facility] Comment on above: Order Comment: CLEAN CATCH Performed By: #### M 100.2199, L4 #### [facility] [address] [place], [address] Color (U) Yellow Normal Yellow [facility] Comment on above: Order Comment: CLEAN CATCH Performed By: #### M 100.2199, L4 #### [facility] [address] [place], [address] GLUCOSE, UR Normal Normal Normal [facility] Comment on above: Order Comment: CLEAN CATCH Performed By: #### M 100.0, L400 #### [facility] [address] [place], [address] KETONE UR Negative Normal Negative [facility] Comment on above: Order Comment: CLEAN CATCH Performed By: #### M , #### [facility] [address] [place], [address] LEUK ESTERASE 500 /ul Abnormal Negative [facility] Comment on above: Order Comment: CLEAN CATCH Performed By: #### M 100, L4 #### [facility] [address] [place], [address] Nitrite Ql (U) Positive Abnormal Negative [facility] Comment on above: Order Comment: CLEAN CATCH Performed By: #### M , #### [facility] [address] [place], [address] OCCULT BLOOD-UR 50 /ul Abnormal Negative [facility] Comment on above: Order Comment: CLEAN CATCH Performed By: #### M L4 #### [facility] [address] [place], [address] pH UR 6.5 Normal 5.0 - 8.0 [facility] Comment on above: Order Comment: CLEAN CATCH Performed By: #### M , L4 #### [facility] [address] [place], [address] PROT DIPSTX 15 mg/dl Abnormal Negative [facility] Comment on above: Order Comment: CLEAN CATCH Performed By: #### M , L4 #### [facility] [address] [place], [address] SP.GR. DIPSTX 1.010 Normal 1.002-1.030 [facility] Comment on above: Order Comment: CLEAN CATCH Performed By: #### M , L4 #### [facility] [address] [place], [address] UROBILI Normal Normal Normal [facility] Comment on above: Order Comment: CLEAN CATCH Performed By: #### M 100.2200, L400.2010 #### [facility] [place], [address] Bilirubin Test strip Ql (U)O rdered By: Balwinder Alves on 10-10-2024 Bilirubin Ql (U) Negative Negative [facility] Glucose Ql (U)Ordered By: Jen Alves on 10-10-2024 Urine Glucose (UA) Normal mg/dl Normal [facility] Ketones Test strip Ql (U)Ord ered By: Balwinder Alves on 10-10-2024 Ketones Ql (U) Negative Negative [facility] Nitrite Test strip Ql (U)Ord ered By: Balwinder Alves on 10-10-2024 Nitrite Ql (U) Positive High Negative [facility] Protein Test strip Ql (U)Ord ered By: Balwinder Alves on 10-10-2024 Protein Ql (U) 15 mg/dl High Negative [facility] Urine blood detectionOrdered By: Balwinder Alves on 10-10-2024 Urine Occult Blood 50 /ul High Negative [facility] Urine clarityOrdered By: Javed Alves on 10-10-2024 Clarity (U) Sl. Cloudy Clear [facility] Urine color determinationOrd ered By: Balwinder Alves on 10-10-2024 Color (U) Yellow Yellow [facility] Urine cultureOrdered By: Javed Alves on 10-10-2024 Bacteria identified Cx Nom (U) ESBL Escherichia coli Abnormal [facility] Bacteria identified Cx Nom (U) Proteus mirabilis Abnormal [facility] Urine leukocyte esterase det ection by dipstickOrdered By: Balwinder Alves on 10-10-2024 Leukocyte esterase Test strip Ql (U) 500 /ul High Negative [facility] Urine pHOrdered By: Balwinder blackman on 10-10-2024 pH (U) 6.5 [pH] 5.0 - 8.0 [facility] Urine specific gravity measu rementOrdered By: Balwinder Alves on 10-10-2024 Specific gravity (U) [Rel density] 1.010 1.002-1.030 [facility] Urobilinogen Ql (U)Ordered B y: Balwinder Alves on 10-10-2024 Urine Urobilinogen Normal mg/dl Normal [facility] Automated blood erythrocyte countOrdered By: Balwinder Alves on 09-14-2024 RBC (Bld) [#/Vol] 3.90 10*6/uL Low 4.2-5.4 [facility] Comment on above: Order Comment: 102.2 Performed By: #### L 400.0001, #### [facility] [address] [place], [address] Automated blood hematocrit ( percentage)Ordered By: Balwinder Alves on 09-14-2024 Hematocrit (Bld) [Volume fraction] 37.7 % Normal 37-47 [facility] Comment on above: Order Comment: 102.2 Performed By: #### L 400.0001, #### [facility] [address] [place], [address] Basic Metabolic Profile (BMP )on 09-14-2024 BUN/CRE 15.5 RATIO Normal 10-20 [facility] Comment on above: Order Comment: 102.2 Performed By: #### L 400.0001, #### [facility] [address] [place], [address] CA,Total 9.4 mg/dL Normal 8.5-10.1 [facility] Comment on above: Order Comment: 102.2 Performed By: #### L 400.0001, #### [facility] [address] [place], [address] EST GFR - AA 102 mL/min Normal >60 [facility] Comment on above: Order Comment: 102.2 Result Comment: Afri can English GFR Calc Performed By: #### L 400.0001, #### [facility] [address] [place], [address] GAP 3 Low 5-15 [facility] Comment on above: Order Comment: 102.2 Performed By: #### L 400.0001, #### [facility] [address] [place], [address] GFR/1.73 sq M.predicted among non-blacks MDRD (S/P/Bld) [Vol rate/Area] 84 mL/min/{1.73_m2} Normal >60 [facility] Comment on above: Order Comment: 102.2 Result Comment: Non- GFR Calc Performed By: #### L 400.0001, #### [facility] [address] [place], [address] Blood urea nitrogen (BUN)/cr eatinine ratioOrdered By: Balwinder Alves on 09-14-2024 Urea nitrogen/Creatinine [Mass ratio] 15.5 mg/mg - [facility] CBC-Complete Blood Cnt No Di ffon 09-14-2024 RDW SD 48.3 fl High 35.1-43.9 [facility] Comment on above: Order Comment: 102.2 Performed By: #### L 400.0001, #### [facility] [address] [place], [address] Carbon dioxide measurementOr dered By: Balwinder Alves on 09-14-2024 CO2 [Moles/Vol] 34.0 mmol/L High 21.0-32.0 [facility] Comment on above: Order Comment: 102.2 Performed By: #### L 400.0001, #### [facility] [address] [place], [address] Chloride measurementOrdered By: Balwinder Alves on 09-14-2024 Chloride [Moles/Vol] 103 mmol/L Normal 98-107 [facility] Comment on above: Order Comment: 102.2 Performed By: #### L 400.0001, #### [facility] [address] [place], [address] Erythrocyte distribution wid th (RBC) [Ratio]Ordered By: Balwinder Alves on 09-14-2024 Erythrocyte distribution width (RBC) [Entitic vol] 48.3 fL High 35.1-43.9 [facility] Erythrocyte distribution wid th ratioOrdered By: Balwinder Alves on 09-14-2024 Erythrocyte distribution width (RBC) [Ratio] 14.0 % Normal 11.6-14.6 [facility] Comment on above: Order Comment: 102.2 Performed By: #### L 400.0001, #### [facility] [address] [place], [place], [id number] Estimated glomerular filtrat ion rate (GFR) AmericanOrdered By: Balwinder Alves on 09-14-2024 Estimated GFR (MDRD) Amer 102 mL/min >60 [facility] Comment on above: GFR Calc Glomerular filtration rate ( GFR) estimationOrdered By: Balwinder Alves on 09-14-2024 Estimated GFR (MDRD) Non-Af Amer 84 mL/min >60 [facility] Comment on above: Non- GFR Calc Glucose measurementOrdered B y: Balwinder Alves on 09-14-2024 Glucose [Mass/Vol] 168 mg/dL High 74-106 [facility] Comment on above: Fasting Glucose resu lt greater than or equal to 126 mg/dL suggests DIABETES MELLITUS per A.D.A. criteria. Order Comment: 102.2 Result Comment: Fast ing Glucose result greater than or equal to 126 mg/dL suggests DIABETES MELLITUS per A.D.A. criteria. Performed By: #### L 400.0001, #### [facility] [address] [place], [place], [id number] Hemoglobin measurementOrdere d By: Balwinder Alves on 09-14-2024 Hemoglobin (Bld) [Mass/Vol] 11.1 g/dL Low 12.0-15.0 [facility] Comment on above: Order Comment: 102.2 Performed By: #### L 400.0001, #### [facility] [address] [place], [place], [id number] MCV (mean corpuscular volume ) determinationOrdered By: Balwinder Alves on 09-14-2024 MCV (RBC) [Entitic vol] 96.7 fL Normal 81-99 [facility] Comment on above: Order Comment: 102.2 Performed By: #### L 400.0001, #### [facility] [address] [place], [address] Mean corpuscular hemoglobin (MCH) determinationOrdered By: Balwinder Alves on 09-14-2024 MCH (RBC) [Entitic mass] 28.5 pg Normal 27.0-32.0 [facility] Comment on above: Order Comment: 102.2 Performed By: #### L 400.0001, #### [facility] [address] [place], [address] Mean corpuscular hemoglobin concentration (MCHC) determinationOrdered By: Balwinder Alves on 09-14-2024 MCHC (RBC) [Mass/Vol] 29.4 g/dL Low 32-36 [facility] Comment on above: Order Comment: 102.2 Performed By: #### L 400.0001, #### [facility] [address] [place], [address] Mean platelet volume determi nationOrdered By: Balwinder Alves on 09-14-2024 Platelet mean volume (Bld) [Entitic vol] 8.2 fL Normal 6.2-12.0 [facility] Comment on above: Order Comment: 102.2 Performed By: #### L 400.0001, #### [facility] [address] [place], [address] Platelet countOrdered By: Jen Alves on 09-14-2024 Platelets (Bld) [#/Vol] 178 10*3/uL Normal 150-450 [facility] Comment on above: Order Comment: 102.2 Performed By: #### L 400.0001, #### [facility] [address] [place], [address] Potassium measurementOrdered By: Balwinder Alves on 09-14-2024 Potassium [Moles/Vol] 4.6 mmol/L Normal 3.5-5.1 [facility] Comment on above: Order Comment: 102.2 Performed By: #### L 400.0001, #### [facility] [address] [place], [address] Serum anion gap measurementO rdered By: Balwinder Alves on 09-14-2024 Anion gap [Moles/Vol] 3 mmol/L Low 5-15 [facility] Serum or plasma calcium jacqueline urement (mass/volume)Ordered By: Balwinder Alves on 09-14-2024 Calcium [Mass/Vol] 9.4 mg/dL 8.5-10.1 [facility] Serum or plasma creatinine m easurement (mass/volume)Ordered By: Balwinder Alves on 09-14-2024 Creatinine [Mass/Vol] 0.71 mg/dL Normal 0.55-1.02 [facility] Comment on above: The validity of the calculated GFR & GFRAA in patients over 70 years has not been determined. Clinical correlation is essential. Order Comment: 102.2 Result Comment: The validity of the calculated GFR GFRAA in patients over 70 years has not been determined. Clinical correlation is essential. Performed By: #### L 400.0001, #### [facility] [address] [place], [address] Serum or plasma urea nitroge n measurement (mass/volume)Ordered By: Balwinder Alves on 09-14-2024 Urea nitrogen [Mass/Vol] 11 mg/dL Normal 7-18 [facility] Comment on above: Order Comment: 102.2 Performed By: #### L 400.0001, #### [facility] [address] [place], [address] Sodium levelOrdered By: Balwinder Alves on 09-14-2024 Sodium [Moles/Vol] 139 mmol/L Normal 136-145 [facility] Comment on above: Order Comment: 102.2 Performed By: #### L 400.0001, #### [facility] [address] [place], [place], [address] White blood cell (WBC) count Ordered By: Balwinder Alves on 09-14-2024 WBC (Bld) [#/Vol] 5.6 10*3/uL Normal 4.4-11.0 [facility] Comment on above: Order Comment: 102.2 Performed By: #### L 400.0001, #### [facility] [address] [place] [place], [address] Basophil percentageOrdered B y: Balwinder Alves on 12-14-2023 Chloride [Moles/Vol] 105 mmol/L 98-107 [facility] Cholesterol [Mass/Vol] 128 mg/dL <200 [facility] Comment on above: <200 mg/dL Desirable 200-240 mg/dL Borderline >240 mg/dL High Risk Glucose [Mass/Vol] 132 mg/dL 74-106 [facility] Comment on above: Fasting Glucose resu lt greater than or equal to 126 mg/dL suggests DIABETES MELLITUS per A.D.A. criteria. Hemoglobin (Bld) [Mass/Vol] 12.5 g/dL 12.0-15.0 [facility] Potassium [Moles/Vol] 4.4 mmol/L 3.5-5.1 [facility] Sodium [Moles/Vol] 142 mmol/L 136-145 [facility] Triglyceride [Mass/Vol] 178 mg/dL <199 [facility] Comment on above: The drugs N-Acetylcy steine and Metamizole may falsely depress this assay.Serum Triglycerides Reference Interval Normal <150 mg/dL Borderline high 150 - 199 mg/dL High 200 - 499 mg/dL Very High > or = 500 mg/dL WBC (Bld) [#/Vol] 4.9 10*3/uL 4.4-11.0 [facility] Determination of erythrocyte mean corpuscular volume (MCV)Ordered By: Balwinder Alves on 12-14-2023 MCV (RBC) [Entitic vol] 92.6 fL 81-99 [facility] Erythrocyte distribution wid th ratioOrdered By: Balwinder Alves on 12-14-2023 Erythrocyte distribution width (RBC) [Ratio] 15.4 % 11.6-14.6 [facility] Erythrocyte distribution wid th standard deviationOrdered By: Balwinder Alves on 12-14-2023 Erythrocyte distribution width (RBC) [Entitic vol] 52.9 fL 35.1-43.9 [facility] Hematocrit Auto (Bld) [Volum e fraction]Ordered By: Balwinder Alves on 12-14-2023 Hematocrit (Bld) [Volume fraction] 41.1 % 37-47 [facility] - Chemistry and C hemistry - challengeOrdered By: Balwinder Alves on 12-14-2023 Cholesterol in HDL [Mass/Vol] 49 mg/dL >40 [facility] Comment on above: The drugs N-Acetylcy steine and Metamizole may falsely depress this assay. Reference Range HDL <40 mg/dL Low HDL Cholesterol HDL >or= 60 mg/dL High HDL Cholesterol Cholesterol in LDL [Mass/Vol] 43 mg/dL 0-130 [facility] CO2 [Moles/Vol] 32.0 mmol/L 21.0-32.0 [facility] Urea nitrogen/Creatinine [Mass ratio] 12.2 mg/mg 10-20 [facility] Laboratory - Hematology and Cell countsOrdered By: Balwinder Alves on 12-14-2023 MCH (RBC) [Entitic mass] 28.2 pg 27.0-32.0 [facility] MCHC (RBC) [Mass/Vol] 30.4 g/dL 32-36 [facility] Platelet mean volume (Bld) [Entitic vol] 8.5 fL 6.2-12.0 [facility] Platelets (Bld) [#/Vol] 174 10*3/uL 150-450 [facility] No Panel InformationOrdered By: Balwinder Alves on 12-14-2023 Estimated GFR (MDRD) Amer 130 mL/min >60 [facility] Comment on above: GFR Calc Estimated GFR (MDRD) Non-Af Amer 107 mL/min >60 [facility] Comment on above: Non- GFR Calc Vitamin D 25-Hydroxy 42.9 ng/mL [facility] Comment on above: Vitamin D 25(OH) Sta tus Range Deficiency <20 ng/mL (50nmol/L) Insufficiency 20 - 30 ng/mL (50 - 75 nmol/L) Sufficiency 30 - 100 ng/mL (75 - 250 nmol/L) Toxicity >100 ng/mL (>250 nmol/L) VLDL Cholesterol 36 mg/dL 5-40 [facility] RBC Auto (Bld) [#/Vol]Ordere d By: Balwinder Alves on 12-14-2023 RBC (Bld) [#/Vol] 4.44 10*6/uL 4.2-5.4 [facility] Serum or plasma calcium jacqueline urement (mass/volume)Ordered By: Balwinder Alves on 12-14-2023 Calcium [Mass/Vol] 8.9 mg/dL 8.5-10.1 [facility] Serum or plasma creatinine m easurement (mass/volume)Ordered By: Balwinder Alves on 12-14-2023 Creatinine [Mass/Vol] 0.58 mg/dL 0.55-1.02 [facility] Comment on above: The validity of the calculated GFR & GFRAA in patients over 70 years has not been determined. Clinical correlation is essential. Serum or plasma urea nitroge n measurement (mass/volume)Ordered By: Balwinder Alves on 12-14-2023 Urea nitrogen [Mass/Vol] 7 mg/dL 7-18 [facility] Thin prep Papanicolaou smear with manual screeningOrdered By: Balwinder Alves on 12-14-2023 Thin prep Papanicolaou smear with manual screening 5 5-15 [facility] Whole blood hemoglobin A1c/t otal hemoglobin ratio (mass fraction)Ordered By: Balwinder Alves on 12-14-2023 HbA1c (Bld) [Mass fraction] 6.2 % 3.8-5.6 [facility] Comment on above: Normal < 5.7 % Predi abetic 5.7 - 6.4 % Diabetic >or= 6.5 % Please note range changes. Office Visiton 12-09-2023 Follow-up visit [id number] Joy Huff 1945 F Date Provider Department Center 12/09/2023 [id number], MIA [facility] OR None No family history on file Level of Service:40848 ND OFFICE/OUTPATIENT ESTABLISHED LOW MDM 20 MIN Reason for Visit and Comments: Follow-up [664696] - L fibula fx Normal [facility] Progress Noteon 12-09-2023 Progress Note [facility] [address] [place] [address] [place] [id number] Dept: [phone] Dept Gumaro Huff 1945 [id number] 12/09/2023 HISTORY OF PRESENT ILLNESS: Gumaro returns [...] on it (more content not included)... [facility] 36on 10-14-2023 36 Spoke with Beny at [facility] and clarified that Gumaro should bear weight in her boot until next visit and should use walker as needed for balance. [facility] 36 Name of Caller: Gareth at [facility] Contact ask for Gareth Reason" Gareth is calling after looking at the [...] a call back. Office Name: Ortho [facility] Office Visiton 10-14-2023 Follow-up visit [id number] Daria,Joy edwards 1945 F Date Provider Department Center 10/14/2023 TETE ALMAGUER [facility] OR None No family history on file Level of Service:58530 ND OFFICE/OUTPATIENT ESTABLISHED LOW MDM 20 MIN Reason for Visit and Comments: Follow-up [500024] - Left distal fibula fx DOI 07/02/23 [facility] Progress Noteon 10-14-2023 Progress Note [facility] [address] [place] [address] [place] [id number] Dept: [phone] Dept Gumaro Huff 1945 [id number] 10/14/2023 HISTORY OF PRESENT ILLNESS: Gumaro returns [...] above p (more content not included)... Normal [facility] Clostridioides difficile nuc leic acid assay by PCROrdered By: Balwinder Alves on 09-23-2023 C. difficile DNA DIGNA+probe Ql (Unsp spec) [facility] Clostridium difficile detect ion by polymerase chain reactionOrdered By: Balwinder Alves on 09-23-2023 C. difficile DNA DIGNA+probe Ql (Unsp spec) [facility] Basophil percentageOrdered B y: Balwinder Alves on 09-14-2023 Chloride [Moles/Vol] 102 mmol/L 98-107 [facility] Glucose [Mass/Vol] 142 mg/dL 74-106 [facility] Comment on above: Fasting Glucose resu lt greater than or equal to 126 mg/dL suggests DIABETES MELLITUS per A.D.A. criteria. Potassium [Moles/Vol] 4.1 mmol/L 3.5-5.1 [facility] Sodium [Moles/Vol] 138 mmol/L 136-145 [facility] WBC (Bld) [#/Vol] 5.9 10*3/uL 4.4-11.0 [facility] Blood erythrocytes count (nu mber/volume)Ordered By: Balwinder Alves on 09-14-2023 RBC (Bld) [#/Vol] 4.96 10*6/uL 4.2-5.4 [facility] Blood hemoglobin measurement (mass/volume)Ordered By: Balwinder Alves on 09-14-2023 Hemoglobin (Bld) [Mass/Vol] 13.3 g/dL 12.0-15.0 [facility] Blood platelet mean volumeOr dered By: Balwinder Alves on 09-14-2023 Platelet mean volume (Bld) [Entitic vol] 8.3 fL 6.2-12.0 [facility] Determination of erythrocyte mean corpuscular volume (MCV)Ordered By: Balwinder Alves on 09-14-2023 MCV (RBC) [Entitic vol] 92.5 fL 81-99 [facility] Hematocrit Auto (Bld) [Volum e fraction]Ordered By: Balwinder Alves on 09-14-2023 Hematocrit (Bld) [Volume fraction] 45.9 % 37-47 [facility] - Chemistry and C hemistry - challengeOrdered By: Balwinder Alves on 09-14-2023 CO2 [Moles/Vol] 31.0 mmol/L 21.0-32.0 [facility] Urea nitrogen/Creatinine [Mass ratio] 10.1 mg/mg 10-20 [facility] - Hematology and Cell countsOrdered By: Balwinder Alves on 09-14-2023 Erythrocyte distribution width (RBC) [Entitic vol] 47.0 fL 35.1-43.9 [facility] Erythrocyte distribution width (RBC) [Ratio] 13.9 % 11.6-14.6 [facility] MCH (RBC) [Entitic mass] 26.8 pg 27.0-32.0 [facility] MCHC Auto (RBC) [Mass/Vol]Or dered By: Balwinder Alves on 09-14-2023 MCHC (RBC) [Mass/Vol] 29.0 g/dL 32-36 [facility] No Panel InformationOrdered By: Balwinder Alves on 09-14-2023 Estimated GFR (MDRD) Amer 125 mL/min >60 [facility] Comment on above: GFR Calc Estimated GFR (MDRD) Non-Af Amer 103 mL/min >60 [facility] Comment on above: Non- GFR Calc Office Visiton 09-14-2023 Follow-up visit [id number] Joy Huff 1945 F Date Provider Department Center 09/14/2023 [id number] GRIGGS [facility] [place] [facility] [place] None No family history on file Level of Service:43661 ND OFFICE/OUTPATIENT NEW MODERATE MDM 45-59 MINUTES Reason for Visit and Comments: New Patient [542] - LT distal fibula fx DOI 07/02/23 Normal [facility] Platelets bldOrdered By: Javed Alves on 09-14-2023 Platelets (Bld) [#/Vol] 196 10*3/uL 150-450 [facility] Progress Noteon 09-14-2023 Progress Note [facility] [address] [facility] [address] Dept: [phone] Dept Gumaro Huff 1945 [id number] 09/14/2023 HISTORY OF PRESENT ILLNESS: Gumaro is a 78 y.o. female here today for evaluation of her Left distal fibula fx DOI 07/02/23. Patient has been in a walking boot. Patient is diabetic. She is [place] in [place] [facility] due to injury. She was supposed to be seen closer to her fx date but her appointments were canceled due to [place] [facility] transportation issues. She has been nonweightbearing since her injury. Gumaro states the problem has been present for 3 months est Gumaro states the problem started as the result of a fall, tripped walking into her home. Gumaro has tried or has been treated with the following: walking boot, [place] [facility] PT. Review of Systems Surgical Risk Factors: [...] he (more content not included)... Normal [facility] Serum or plasma calcium jacqueline urement (mass/volume)Ordered By: Balwinder Alves on 09-14-2023 Calcium [Mass/Vol] 8.9 mg/dL 8.5-10.1 [facility] Serum or plasma creatinine m easurement (mass/volume)Ordered By: Balwinder Alves on 09-14-2023 Creatinine [Mass/Vol] 0.59 mg/dL 0.55-1.02 [facility] Comment on above: The validity of the calculated GFR & GFRAA in patients over 70 years has not been determined. Clinical correlation is essential. Serum or plasma urea nitroge n measurement (mass/volume)Ordered By: Balwinder Alves on 09-14-2023 Urea nitrogen [Mass/Vol] 6 mg/dL 7-18 [facility] Thin prep Papanicolaou smear with manual screeningOrdered By: Balwinder Alves on 09-14-2023 Thin prep Papanicolaou smear with manual screening 5 5-15 [facility] XR ANKLE 3+ VIEWS LEFTon XR [...] the lateral malleolar fracture site. Normal [facility] XR FOOT 3+ VIEWS LEFTon 12-1 XR FOOT 3+ VIEWS LEFT 3 nonweightbearing [...] the lateral malleolar fracture site. Normal [facility] 36on 09-03-2023 36 Left distal fibula f x doi 07/02/23 she is in a boot. Can only be seen in [place] or [place]. No wads Normal [place] [address]on 09-02-2023 36 Gareth an RN at [facility] called [phone] ext [phone], he states that they just got Gumaro from [place] and they are looking for her to [...] and then works again tomorrow. Normal [facility] 36on 07-17-2023 36 LVM to schedule with Dr. Ureña on Thursday at 1pm in [place] or 9am in [place] if not already double booked. Normal [facility] .Auto DiffOrdered By: SYSTEM SYSTEM on 07-04-2023 Basophil, Absolute 0.0 103/mcL Normal 0.0-0.2 AO Wo rkflow [facility] Comment on above: Performed By: #### L IPID, ADIFF, ANEU, CMP, CBC, GFR #### [address] [address] Basophils/100 WBC (Bld) 0.4 % Normal 0.0-2.5 A O [facility] Comment on above: Performed By: #### L IPID, ADIFF, ANEU, CMP, CBC, GFR #### [address] [address] Eosinophil, Absolute 0.4 103/mcL Normal 0.0-0.4 [facility] Comment on above: Performed By: #### L IPID, ADIFF, ANEU, CMP, CBC, GFR #### [address] [address] Eosinophils/100 WBC (Bld) 6.9 % Normal 0.0-7.0 [facility] Comment on above: Performed By: #### L IPID, ADIFF, ANEU, CMP, CBC, GFR #### [address] [address] Lymphocyte, Absolute 1.7 103/mcL Normal 0.8-3.9 [facility] Comment on above: Performed By: #### L IPID, ADIFF, ANEU, CMP, CBC, GFR #### [address] [address] Lymphocytes/100 WBC (Bld) 27.3 % Normal 10.0-50.0 [facility] Comment on above: Performed By: #### L IPID, ADIFF, ANEU, CMP, CBC, GFR #### [address] [address] Monocyte, Absolute 0.4 103/mcL Normal 0.2-1.0 AO Wo rkflow [facility] Comment on above: Performed By: #### L IPID, ADIFF, ANEU, CMP, CBC, GFR #### Varun [address] [address] Monocytes/100 WBC (Bld) 6.4 % Normal 1.7-13.0 A O Workflow [facility] Comment on above: Performed By: #### L IPID, ADIFF, ANEU, CMP, CBC, GFR #### [address] [address] Neutrophils/100 WBC (Bld) 59.0 % Normal 37.0-80.0 [facility] Comment on above: Performed By: #### L IPID, ADIFF, ANEU, CMP, CBC, GFR #### [address] [address] .GFRon 07-04-2023 GFR 93 ml/min/1.73sqm Normal [facility] ([place]) Comment on above: Result Comment: GFR Population [...] IPID, ADIFF, ANEU, CMP, CBC, GFR #### [address] [address] GFR Non- 77 ml/min/1.73sqm Normal [facility] ([place]) Comment on above: Result Comment: GFR Population [...] IPID, ADIFF, ANEU, CMP, CBC, GFR #### [address] [address] .NEUABSOrdered By: SYSTEM SY STEM on 07-04-2023 Neutrophil, Absolute 3.7 103/mcL Normal 2.9-6.2 [facility] Comment on above: Performed By: #### L IPID, ADIFF, ANEU, CMP, CBC, GFR #### [address] [address] BMPon 07-04-2023 BUN/Creatinine Ratio 14 ratio Normal 7-27 [facility] ([place]) Comment on above: Performed By: #### L IPID, ADIFF, ANEU, CMP, CBC, GFR #### [address] [address] BMPOrdered By: SYSTEM SYSTEM on 07-04-2023 Calcium [Mass/Vol] 8.1 mg/dL Low 8.4-10.2 AO [facility] Comment on above: Performed By: #### L IPID, ADIFF, ANEU, CMP, CBC, GFR #### [address] [address] Chloride [Moles/Vol] 104 mmol/L Normal 98-107 AO A DM SS Comment on above: Performed By: #### L IPID, ADIFF, ANEU, CMP, CBC, GFR #### [address] [address] CO2 [Moles/Vol] 29 mmol/L Normal 23-31 AO ADM SS Comment on above: Performed By: #### L IPID, ADIFF, ANEU, CMP, CBC, GFR #### [address] [address] Creatinine [Mass/Vol] 0.73 mg/dL Normal 0.55-1.02 AO [facility] Comment on above: Performed By: #### L IPID, ADIFF, ANEU, CMP, CBC, GFR #### [address] [address] Electrolyte Balance 6.0 mEq/L Normal 4.0-15.0 AO AD M SS Comment on above: Performed By: #### L IPID, ADIFF, ANEU, CMP, CBC, GFR #### [address] [address] Glucose [Mass/Vol] 145 mg/dL High 83-110 AO [facility]M [facility] Comment on above: Performed By: #### L IPID, ADIFF, ANEU, CMP, CBC, GFR #### Varun [address] [address] Potassium [Moles/Vol] 4.9 mmol/L Normal 3.5-5.1 AO [facility]M [facility] Comment on above: Performed By: #### L IPID, ADIFF, ANEU, CMP, CBC, GFR #### [address] [address] Sodium [Moles/Vol] 139 mmol/L Normal 136-145 AO ADM SS Comment on above: Performed By: #### L IPID, ADIFF, ANEU, CMP, CBC, GFR #### [address] [address] Urea nitrogen [Mass/Vol] 10 mg/dL Normal 7-18 AO ADM SS Comment on above: Performed By: #### L IPID, ADIFF, ANEU, CMP, CBC, GFR #### Varun [address] [address] CBCOrdered By: SYSTEM SYSTEM on 07-04-2023 Erythrocyte distribution width (RBC) [Ratio] 14.2 % Normal 11.5-14.5 [facility] Comment on above: Performed By: #### L IPID, ADIFF, ANEU, CMP, CBC, GFR #### Varun [address] [address] Hematocrit (Bld) [Volume fraction] 35.4 % Low 37.0-47.0 [facility] Workflow [facility] Comment on above: Performed By: #### L IPID, ADIFF, ANEU, CMP, CBC, GFR #### [address] [address] MCH (RBC) [Entitic mass] 28.7 pg Normal 27.0-31.2 [facility] Workflow [facility] Comment on above: Performed By: #### L IPID, ADIFF, ANEU, CMP, CBC, GFR #### [address] [address] MCHC 32.4 G/dL Low 33.0-37.0 AO Workflow SS Comment on above: Performed By: #### L IPID, ADIFF, ANEU, CMP, CBC, GFR #### [address] [address] MCV (RBC) [Entitic vol] 88.6 fL Normal 80.0-94.0 A O Workflow SS Comment on above: Performed By: #### L IPID, ADIFF, ANEU, CMP, CBC, GFR #### [address] [address] Platelet mean volume (Bld) [Entitic vol] 6.5 fL Low 7.4-10.4 [facility] Workflow [facility] Comment on above: Performed By: #### L IPID, ADIFF, ANEU, CMP, CBC, GFR #### [address] [address] CBCon 07-04-2023 Hgb 11.4 G/dL Low 12.0-16.0 [facility] ([place]) Comment on above: Performed By: #### L IPID, ADIFF, ANEU, CMP, CBC, GFR #### [address] [address] Platelet 165 10 3/mcL Normal 130-400 [facility] ([place]) Comment on above: Performed By: #### L IPID, ADIFF, ANEU, CMP, CBC, GFR #### [address] [address] RBC 3.99 10 6/mcL Low 4.20-5.40 [facility] ([place]) Comment on above: Performed By: #### L IPID, ADIFF, ANEU, CMP, CBC, GFR #### [facility] [address] [place], [place] [address] WBC 6.3 10 3/mcL Normal 4.6-10.8 [facility] ([place]) Comment on above: Performed By: #### L IPID, ADIFF, ANEU, CMP, CBC, GFR #### [facility] [address] [place], [place] [address] LABORATORYOrdered By: Darwin Diaz on 07-04-2023 Blood Glucose Testing Reason Routine (07/04/23 4:36 PM) [facility] Work Phone: Glucose [Mass/Vol] 125 mg/dL Invalid Interpretation Code 82 - 115 mg/dL [facility] Work Phone: Blood Glucose Testing Reason Routine (07/04/23 10:38 AM) [facility] Work Phone: LABORATORYOrdered By: Loretta Mejia on 07-04-2023 Glucose [Mass/Vol] 140 mg/dL Invalid Interpretation Code 82 - 115 mg/dL [facility] Work Phone: Glucose [Mass/Vol] 139 mg/dL Invalid Interpretation Code 82 - 115 mg/dL [facility] Work Phone: LABORATORYOrdered By: SYSTEM SYSTEM on [...] ADIFF, ANEU, CMP, CBC, GFR #### Varun [address] [address] .Auto Diffon 07-03-2023 Basophil, Absolute 0.0 10 3/mcL Normal 0.0-0.2 [facility]) Comment on above: Performed By: #### L IPID, ADIFF, ANEU, CMP, CBC, GFR #### [address] [address] Basophils/100 WBC (Bld) 0.5 % Normal 0.0-2.5 [facility] ([place]) Comment on above: Performed By: #### L IPID, ADIFF, ANEU, CMP, CBC, GFR #### [address] [address] Eosinophil, Absolute 0.4 10 3/mcL Normal 0.0-0.4 [facility] ([place]) Comment on above: Performed By: #### L IPID, ADIFF, ANEU, CMP, CBC, GFR #### [address] [address] Eosinophils/100 WBC (Bld) 6.7 % Normal 0.0-7.0 [facility] ([place]) Comment on above: Performed By: #### L IPID, ADIFF, ANEU, CMP, CBC, GFR #### [address] [address] Lymphocyte, Absolute 1.8 10 3/mcL Normal 0.8-3.9 [facility] ([place]) Comment on above: Performed By: #### L IPID, ADIFF, ANEU, CMP, CBC, GFR #### [address] [address] Lymphocytes/100 WBC (Bld) 31.4 % Normal 10.0-50.0 [facility] ([place]) Comment on above: Performed By: #### L IPID, ADIFF, ANEU, CMP, CBC, GFR #### [address] [address] Monocyte, Absolute 0.4 10 3/mcL Normal 0.2-1.0 [facility] ([place]) Comment on above: Performed By: #### L IPID, ADIFF, ANEU, CMP, CBC, GFR #### [address] [address] Monocytes/100 WBC (Bld) 6.4 % Normal 1.7-13.0 [facility] ([place]) Comment on above: Performed By: #### L IPID, ADIFF, ANEU, CMP, CBC, GFR #### [address] [address] Neutrophils/100 WBC (Bld) 55.0 % Normal 37.0-80.0 [facility] ([place]) Comment on above: Performed By: #### L IPID, ADIFF, ANEU, CMP, CBC, GFR #### [address] [address] .GFRon 07-03-2023 GFR 92 ml/min/1.73sqm Normal [facility] ([place]) Comment on above: Result Comment: GFR Population [...] IPID, ADIFF, ANEU, CMP, CBC, GFR #### [place] [id number] [place], [place] [address] GFR Non- 76 ml/min/1.73sqm Normal [facility] ([place]) Comment on above: Result Comment: GFR Population [...] IPID, ADIFF, ANEU, CMP, CBC, GFR #### [address] [address] .NEUABSon 07-03-2023 Neutrophil, Absolute 3.2 10 3/mcL Normal 2.9-6.2 [facility] ([place]) Comment on above: Performed By: #### L IPID, ADIFF, ANEU, CMP, CBC, GFR #### [address] [address] BMPon 07-03-2023 BUN/Creatinine Ratio 11 ratio Normal 7-27 [facility] ([place]) Comment on above: Performed By: #### L IPID, ADIFF, ANEU, CMP, CBC, GFR #### [address] [address] Calcium [Mass/Vol] 8.4 mg/dL Normal 8.4-10.2 [facility] ([place]) Comment on above: Performed By: #### L IPID, ADIFF, ANEU, CMP, CBC, GFR #### [address] [address] Chloride [Moles/Vol] 103 mmol/L Normal 98-107 [facility] ([place]) Comment on above: Performed By: #### L IPID, ADIFF, ANEU, CMP, CBC, GFR #### [address] [address] CO2 [Moles/Vol] 31 mmol/L Normal 23-31 [facility] ([place]) Comment on above: Performed By: #### L IPID, ADIFF, ANEU, CMP, CBC, GFR #### [address] [address] Creatinine [Mass/Vol] 0.74 mg/dL Normal 0.55-1.02 [facility] ([place]) Comment on above: Performed By: #### L IPID, ADIFF, ANEU, CMP, CBC, GFR #### [address] [address] Electrolyte Balance 6.0 mEq/L Normal 4.0-15.0 [facility] ([place]) Comment on above: Performed By: #### L IPID, ADIFF, ANEU, CMP, CBC, GFR #### [address] [address] Glucose [Mass/Vol] 165 mg/dL High 83-110 [facility] ([place]) Comment on above: Performed By: #### L IPID, ADIFF, ANEU, CMP, CBC, GFR #### [address] [address] Potassium [Moles/Vol] 4.6 mmol/L Normal 3.5-5.1 [facility] ([place]) Comment on above: Performed By: #### L IPID, ADIFF, ANEU, CMP, CBC, GFR #### [address] [address] Sodium [Moles/Vol] 140 mmol/L Normal 136-145 [facility] ([place]) Comment on above: Performed By: #### L IPID, ADIFF, ANEU, CMP, CBC, GFR #### [address] [address] Urea nitrogen [Mass/Vol] 8 mg/dL Normal 7-18 [facility] ([place]) Comment on above: Performed By: #### L IPID, ADIFF, ANEU, CMP, CBC, GFR #### [address] [address] CBCon 07-03-2023 Erythrocyte distribution width (RBC) [Ratio] 14.4 % Normal 11.5-14.5 [facility] ([place]) Comment on above: Performed By: #### L IPID, ADIFF, ANEU, CMP, CBC, GFR #### [address] [address] Hematocrit (Bld) [Volume fraction] 36.4 % Low 37.0-47.0 [facility] ([place]) Comment on above: Performed By: #### L IPID, ADIFF, ANEU, CMP, CBC, GFR #### [address] [address] Hgb 11.6 G/dL Low 12.0-16.0 [facility] ([place]) Comment on above: Performed By: #### L IPID, ADIFF, ANEU, CMP, CBC, GFR #### [address] [address] MCH (RBC) [Entitic mass] 28.3 pg Normal 27.0-31.2 [facility] ([place]) Comment on above: Performed By: #### L IPID, ADIFF, ANEU, CMP, CBC, GFR #### [place] [address] MCHC 31.9 G/dL Low 33.0-37.0 [facility] ([place]) Comment on above: Performed By: #### L IPID, ADIFF, ANEU, CMP, CBC, GFR #### [place] [address] MCV (RBC) [Entitic vol] 88.9 fL Normal 80.0-94.0 [facility] [place]) Comment on above: Performed By: #### L IPID, ADIFF, ANEU, CMP, CBC, GFR #### [address] [address] Platelet 158 10 3/mcL Normal 130-400 [facility] ([place]) Comment on above: Performed By: #### L IPID, ADIFF, ANEU, CMP, CBC, GFR #### [address] [address] Platelet mean volume (Bld) [Entitic vol] 6.6 fL Low 7.4-10.4 [facility] ([place]) Comment on above: Performed By: #### L IPID, ADIFF, ANEU, CMP, CBC, GFR #### [place] [address] RBC 4.10 10 6/mcL Low 4.20-5.40 [facility] ([place]) Comment on above: Performed By: #### L IPID, ADIFF, ANEU, CMP, CBC, GFR #### [facility] [address] [place], [place] [address] WBC 5.8 10 3/mcL Normal 4.6-10.8 [facility] ([place]) Comment on above: Performed By: #### L IPID, ADIFF, ANEU, CMP, CBC, GFR #### [facility] [address] [place], [place] [address] LABORATORYOrdered By: Jose Shepard on 07-03-2023 Blood Glucose Testing Reason Routine (07/03/23 9:10 PM) [facility] Work Phone: LABORATORYOrdered By: SYSTEM SYSTEM on [...] 07-03-2023 Magnesium [Mass/Vol] 1.8 mg/dL Normal 1.8-2.4 [facility] ([place]) Comment on above: Performed By: #### L IPID, ADIFF, ANEU, CMP, CBC, GFR #### Varun [place] [id number] .Auto Diffon 07-02-2023 Basophil, Absolute 0.0 10 3/mcL Normal 0.0-0.2 [facility] ([place]) Comment on above: Performed By: #### A DIFF, MG, ANEU, GFR, BMP, CBC #### [address] [address] Basophils/100 WBC (Bld) 0.7 % Normal 0.0-2.5 [facility] ([place]) Comment on above: Performed By: #### A DIFF, MG, ANEU, GFR, BMP, CBC #### [address] [address] Eosinophil, Absolute 0.3 10 3/mcL Normal 0.0-0.4 [facility] ([place]) Comment on above: Performed By: #### A DIFF, MG, ANEU, GFR, BMP, CBC #### [address] [address] Eosinophils/100 WBC (Bld) 5.6 % Normal 0.0-7.0 [facility] ([place]) Comment on above: Performed By: #### A DIFF, MG, ANEU, GFR, BMP, CBC #### [address] [address] Lymphocyte, Absolute 1.8 10 3/mcL Normal 0.8-3.9 [facility] ([place]) Comment on above: Performed By: #### A DIFF, MG, ANEU, GFR, BMP, CBC #### [address] [id number] Lymphocytes/100 WBC (Bld) 33.2 % Normal 10.0-50.0 [facility] ([place]) Comment on above: Performed By: #### A DIFF, MG, ANEU, GFR, BMP, CBC #### [address] [address] Monocyte, Absolute 0.4 10 3/mcL Normal 0.2-1.0 [facility] ([place]) Comment on above: Performed By: #### A DIFF, MG, ANEU, GFR, BMP, CBC #### [address] [address] Monocytes/100 WBC (Bld) 7.8 % Normal 1.7-13.0 [facility] ([place]) Comment on above: Performed By: #### A DIFF, MG, ANEU, GFR, BMP, CBC #### [address] [address] Neutrophils/100 WBC (Bld) 52.7 % Normal 37.0-80.0 [facility] ([place]) Comment on above: Performed By: #### A DIFF, MG, ANEU, GFR, BMP, CBC #### [address] [address] .GFRon 07-02-2023 GFR 85 ml/min/1.73sqm Normal [facility] ([place]) Comment on above: Result Comment: GFR Population [...] IPID, ADIFF, ANEU, CMP, CBC, GFR #### [address] [address] GFR Non- 70 ml/min/1.73sqm Normal [facility] ([place]) Comment on above: Result Comment: GFR Population [...] IPID, ADIFF, ANEU, CMP, CBC, GFR #### [address] [address] .NEUABSon 07-02-2023 Neutrophil, Absolute 2.9 10 3/mcL Normal 2.9-6.2 [facility] ([place]) Comment on above: Performed By: #### A DIFF, MG, ANEU, GFR, BMP, CBC #### [address] [address] BMPon 07-02-2023 BUN/Creatinine Ratio 11 ratio Normal 7-27 [facility] ([place]) Comment on above: Performed By: #### A DIFF, MG, ANEU, GFR, BMP, CBC #### [address] [address] Calcium [Mass/Vol] 8.5 mg/dL Normal 8.4-10.2 [facility] ([place]) Comment on above: Performed By: #### A DIFF, MG, ANEU, GFR, BMP, CBC #### [address] [address] Chloride [Moles/Vol] 102 mmol/L Normal 98-107 [facility] ([place]) Comment on above: Performed By: #### A DIFF, MG, ANEU, GFR, BMP, CBC #### [address] [address] CO2 [Moles/Vol] 31 mmol/L Normal 23-31 [facility] ([place]) Comment on above: Performed By: #### A DIFF, MG, ANEU, GFR, BMP, CBC #### [address] [address] Creatinine [Mass/Vol] 0.79 mg/dL Normal 0.55-1.02 formerly [facility] ([place]) Comment on above: Performed By: #### A DIFF, MG, ANEU, GFR, BMP, CBC #### [address] [address] Electrolyte Balance 5.0 mEq/L Normal 4.0-15.0 [facility]ly [facility] ([place]) Comment on above: Performed By: #### A DIFF, MG, ANEU, GFR, BMP, CBC #### [address] [address] Glucose [Mass/Vol] 144 mg/dL High 83-110 [facility] ([place]) Comment on above: Performed By: #### A DIFF, MG, ANEU, GFR, BMP, CBC #### [address] [address] Potassium [Moles/Vol] 3.9 mmol/L Normal 3.5-5.1 [facility] ([place]) Comment on above: Performed By: #### A DIFF, MG, ANEU, GFR, BMP, CBC #### [address] [address] Sodium [Moles/Vol] 138 mmol/L Normal 136-145 [facility] ([place]) Comment on above: Performed By: #### A DIFF, MG, ANEU, GFR, BMP, CBC #### [address] [address] Urea nitrogen [Mass/Vol] 9 mg/dL Normal 7-18 [facility] ([place]) Comment on above: Performed By: #### A DIFF, MG, ANEU, GFR, BMP, CBC #### [address] [address] CBCon 07-02-2023 Erythrocyte distribution width (RBC) [Ratio] 14.6 % High 11.5-14.5 [facility] ([place]) Comment on above: Performed By: #### A DIFF, MG, ANEU, GFR, BMP, CBC #### [address] [address] Hematocrit (Bld) [Volume fraction] 35.7 % Low 37.0-47.0 [facility] ([place]) Comment on above: Performed By: #### A DIFF, MG, ANEU, GFR, BMP, CBC #### [address] [address] Hgb 11.3 G/dL Low 12.0-16.0 [facility] ([place]) Comment on above: Performed By: #### A DIFF, MG, ANEU, GFR, BMP, CBC #### [address] [address] MCH (RBC) [Entitic mass] 28.1 pg Normal 27.0-31.2 [facility] ([place]) Comment on above: Performed By: #### A DIFF, MG, ANEU, GFR, BMP, CBC #### [place] [address] MCHC 31.7 G/dL Low 33.0-37.0 [facility] ([place]) Comment on above: Performed By: #### A DIFF, MG, ANEU, GFR, BMP, CBC #### [address] [address] MCV (RBC) [Entitic vol] 88.6 fL Normal 80.0-94.0 [facility] ([place]) Comment on above: Performed By: #### A DIFF, MG, ANEU, GFR, BMP, CBC #### [address] [address] Platelet 159 10 3/mcL Normal 130-400 [facility] ([place]) Comment on above: Performed By: #### A DIFF, MG, ANEU, GFR, BMP, CBC #### [address] [address] Platelet mean volume (Bld) [Entitic vol] 6.6 fL Low 7.4-10.4 [facility] ([place]) Comment on above: Performed By: #### A DIFF, MG, ANEU, GFR, BMP, CBC #### [place] [id number] RBC 4.03 10 6/mcL Low 4.20-5.40 [facility] ([place]) Comment on above: Performed By: #### A DIFF, MG, ANEU, GFR, BMP, CBC #### [place] [id number] WBC 5.5 10 3/mcL Normal 4.6-10.8 [facility] ([place]) Comment on above: Performed By: #### A DIFF, MG, ANEU, GFR, BMP, CBC #### [place] [id number] [place], [place] [address] LABORATORYOrdered By: SYSTEM SYSTEM on 07-02-2023 Basophil, [...] 07-02-2023 Magnesium [Mass/Vol] 1.7 mg/dL Low 1.8-2.4 [facility] ([place]) Comment on above: Performed By: #### L IPID, ADIFF, ANEU, CMP, CBC, GFR #### [address] [address] .Auto Diffon 07-01-2023 Basophil, Absolute 0.0 10 3/mcL Normal 0.0-0.2 [facility] ([place]) Comment on above: Performed By: #### L IPID, ADIFF, ANEU, CMP, CBC, GFR #### [address] [address] Basophils/100 WBC (Bld) 0.5 % Normal 0.0-2.5 [facility] ([place]) Comment on above: Performed By: #### L IPID, ADIFF, ANEU, CMP, CBC, GFR #### [address] [address] Eosinophil, Absolute 0.4 10 3/mcL Normal 0.0-0.4 [facility] ([place]) Comment on above: Performed By: #### L IPID, ADIFF, ANEU, CMP, CBC, GFR #### [address] [address] Eosinophils/100 WBC (Bld) 5.7 % Normal 0.0-7.0 [facility] ([place]) Comment on above: Performed By: #### L IPID, ADIFF, ANEU, CMP, CBC, GFR #### [address] [address] Lymphocyte, Absolute 1.9 10 3/mcL Normal 0.8-3.9 [facility] ([place]) Comment on above: Performed By: #### L IPID, ADIFF, ANEU, CMP, CBC, GFR #### [address] [address] Lymphocytes/100 WBC (Bld) 28.0 % Normal 10.0-50.0 [facility] ([place]) Comment on above: Performed By: #### L IPID, ADIFF, ANEU, CMP, CBC, GFR #### [address] [address] Monocyte, Absolute 0.5 10 3/mcL Normal 0.2-1.0 [facility] ([place]) Comment on above: Performed By: #### L IPID, ADIFF, ANEU, CMP, CBC, GFR #### [address] [address] Monocytes/100 WBC (Bld) 6.9 % Normal 1.7-13.0 [facility] ([place]) Comment on above: Performed By: #### L IPID, ADIFF, ANEU, CMP, CBC, GFR #### [address] [address] Neutrophils/100 WBC (Bld) 58.9 % Normal 37.0-80.0 [facility] ([place]) Comment on above: Performed By: #### L IPID, ADIFF, ANEU, CMP, CBC, GFR #### [address] [address] .GFRon 07-01-2023 GFR 73 ml/min/1.73sqm Normal [facility] ([place]) Comment on above: Result Comment: GFR Population [...] IPID, ADIFF, ANEU, CMP, CBC, GFR #### [address] [address] GFR Non- 60 ml/min/1.73sqm Normal [facility] ([place]) Comment on above: Result Comment: GFR Population [...] IPID, ADIFF, ANEU, CMP, CBC, GFR #### [address] [address] .NEUABSon 07-01-2023 Neutrophil, Absolute 4.1 10 3/mcL Normal 2.9-6.2 [facility] ([place]) Comment on above: Performed By: #### L IPID, ADIFF, ANEU, CMP, CBC, GFR #### [address] [address] BMPon 07-01-2023 BUN/Creatinine Ratio 12 ratio Normal 7-27 [facility] ([place]) Comment on above: Performed By: #### L IPID, ADIFF, ANEU, CMP, CBC, GFR #### [address] [address] Calcium [Mass/Vol] 8.5 mg/dL Normal 8.4-10.2 [facility] ([place]) Comment on above: Performed By: #### L IPID, ADIFF, ANEU, CMP, CBC, GFR #### [address] [address] Chloride [Moles/Vol] 103 mmol/L Normal 98-107 [facility] ([place]) Comment on above: Performed By: #### L IPID, ADIFF, ANEU, CMP, CBC, GFR #### [address] [address] CO2 [Moles/Vol] 32 mmol/L High 23-31 [facility] ([place]) Comment on above: Performed By: #### L IPID, ADIFF, ANEU, CMP, CBC, GFR #### [address] [address] Creatinine [Mass/Vol] 0.90 mg/dL Normal 0.55-1.02 [facility] ([place]) Comment on above: Performed By: #### L IPID, ADIFF, ANEU, CMP, CBC, GFR #### [address] [address] Electrolyte Balance 5.0 mEq/L Normal 4.0-15.0 [facility] ([place]) Comment on above: Performed By: #### L IPID, ADIFF, ANEU, CMP, CBC, GFR #### [address] [address] Glucose [Mass/Vol] 138 mg/dL High 83-110 [facility] ([place]) Comment on above: Performed By: #### L IPID, ADIFF, ANEU, CMP, CBC, GFR #### [address] [address] Potassium [Moles/Vol] 4.0 mmol/L Normal 3.5-5.1 [facility] ([place]) Comment on above: Performed By: #### L IPID, ADIFF, ANEU, CMP, CBC, GFR #### [address] [address] Sodium [Moles/Vol] 140 mmol/L Normal 136-145 [facility] ([place]) Comment on above: Performed By: #### L IPID, ADIFF, ANEU, CMP, CBC, GFR #### [address] [address] Urea nitrogen [Mass/Vol] 11 mg/dL Normal 7-18 [facility] ([place]) Comment on above: Performed By: #### L IPID, ADIFF, ANEU, CMP, CBC, GFR #### [address] [address] CBCon 07-01-2023 Erythrocyte distribution width (RBC) [Ratio] 14.6 % High 11.5-14.5 [facility] ([place]) Comment on above: Performed By: #### L IPID, ADIFF, ANEU, CMP, CBC, GFR #### [address] [address] Hematocrit (Bld) [Volume fraction] 36.2 % Low 37.0-47.0 [facility] ([place]) Comment on above: Performed By: #### L IPID, ADIFF, ANEU, CMP, CBC, GFR #### [address] [address] Hgb 11.6 G/dL Low 12.0-16.0 [facility] ([place]) Comment on above: Performed By: #### L IPID, ADIFF, ANEU, CMP, CBC, GFR #### [address] [address] MCH (RBC) [Entitic mass] 28.1 pg Normal 27.0-31.2 [facility] ([place]) Comment on above: Performed By: #### L IPID, ADIFF, ANEU, CMP, CBC, GFR #### [address] [address] MCHC 32.0 G/dL Low 33.0-37.0 [facility] ([place]) Comment on above: Performed By: #### L IPID, ADIFF, ANEU, CMP, CBC, GFR #### [place] [address] MCV (RBC) [Entitic vol] 87.8 fL Normal 80.0-94.0 [facility] ([place]) Comment on above: Performed By: #### L IPID, ADIFF, ANEU, CMP, CBC, GFR #### [place] [address] Platelet 170 10 3/mcL Normal 130-400 [facility] ([place]) Comment on above: Performed By: #### L IPID, ADIFF, ANEU, CMP, CBC, GFR #### [address] [address] Platelet mean volume (Bld) [Entitic vol] 6.4 fL Low 7.4-10.4 [facility] ([place]) Comment on above: Performed By: #### L IPID, ADIFF, ANEU, CMP, CBC, GFR #### [address] [address] RBC 4.12 10 6/mcL Low 4.20-5.40 [facility] ([place]) Comment on above: Performed By: #### L IPID, ADIFF, ANEU, CMP, CBC, GFR #### [address] [address] WBC 6.9 10 3/mcL Normal 4.6-10.8 [facility] ([place]) Comment on above: Performed By: #### L IPID, ADIFF, ANEU, CMP, CBC, GFR #### [address] [address] MGon 07-01-2023 Magnesium [Mass/Vol] 1.5 mg/dL Low 1.8-2.4 [facility] ([place]) Comment on above: Performed By: #### L IPID, ADIFF, ANEU, CMP, CBC, GFR #### [address] [address] .Auto Diffon 06-30-2023 Basophil, Absolute 0.0 10 3/mcL Normal 0.0-0.2 [facility] ([place]) Comment on above: Performed By: #### L IPID, ADIFF, ANEU, CMP, CBC, GFR #### [address] [address] Basophils/100 WBC (Bld) 0.4 % Normal 0.0-2.5 [facility] ([place]) Comment on above: Performed By: #### L IPID, ADIFF, ANEU, CMP, CBC, GFR #### [address] [address] Eosinophil, Absolute 0.5 10 3/mcL High 0.0-0.4 [facility] ([place]) Comment on above: Performed By: #### L IPID, ADIFF, ANEU, CMP, CBC, GFR #### [address] [address] Eosinophils/100 WBC (Bld) 4.7 % Normal 0.0-7.0 [facility] ([place]) Comment on above: Performed By: #### L IPID, ADIFF, ANEU, CMP, CBC, GFR #### [address] [address] Lymphocyte, Absolute 1.7 10 3/mcL Normal 0.8-3.9 [facility] ([place]) Comment on above: Performed By: #### L IPID, ADIFF, ANEU, CMP, CBC, GFR #### [address] [address] Lymphocytes/100 WBC (Bld) 17.7 % Normal 10.0-50.0 [facility] ([place]) Comment on above: Performed By: #### L IPID, ADIFF, ANEU, CMP, CBC, GFR #### [address] [address] Monocyte, Absolute 0.5 10 3/mcL Normal 0.2-1.0 [facility] ([place]) Comment on above: Performed By: #### L IPID, ADIFF, ANEU, CMP, CBC, GFR #### [address] [address] Monocytes/100 WBC (Bld) 5.4 % Normal 1.7-13.0 [facility] [place]) Comment on above: Performed By: #### L IPID, ADIFF, ANEU, CMP, CBC, GFR #### [address] [address] Neutrophils/100 WBC (Bld) 71.8 % Normal 37.0-80.0 [facility] ([place]) Comment on above: Performed By: #### L IPID, ADIFF, ANEU, CMP, CBC, GFR #### [address] [address] .GFRon 06-30-2023 GFR 75 ml/min/1.73sqm Normal [facility] ([place]) Comment on above: Result Comment: GFR Population [...] IPID, ADIFF, ANEU, CMP, CBC, GFR #### [address] [address] GFR Non- 62 ml/min/1.73sqm Normal [facility] ([place]) Comment on above: Result Comment: GFR Population [...] IPID, ADIFF, ANEU, CMP, CBC, GFR #### [address] [address] .MDWon 06-30-2023 Monocyte Distribution Width 17.82 Normal 0.00-20.00 [facility] ([place]) Comment on above: Result Comment: For ED adult patients suspected of sepsis, MDW<=20.0 does not rule out sepsis or risk of sepsis Performed By: #### L IPID, ADIFF, ANEU, CMP, CBC, GFR #### [address] [address] .NEUABSon 06-30-2023 Neutrophil, Absolute 7.1 10 3/mcL High 2.9-6.2 [facility] ([place]) Comment on above: Performed By: #### L IPID, ADIFF, ANEU, CMP, CBC, GFR #### [address] [address] BMPon 06-30-2023 BUN/Creatinine Ratio 10 ratio Normal 7-27 [facility] ([place]) Comment on above: Performed By: #### L IPID, ADIFF, ANEU, CMP, CBC, GFR #### [address] [address] Calcium [Mass/Vol] 9.0 mg/dL Normal 8.4-10.2 [facility] ([place]) Comment on above: Performed By: #### L IPID, ADIFF, ANEU, CMP, CBC, GFR #### [address] [address] Chloride [Moles/Vol] 100 mmol/L Normal 98-107 [facility] ([place]) Comment on above: Performed By: #### L IPID, ADIFF, ANEU, CMP, CBC, GFR #### [address] [address] CO2 [Moles/Vol] 33 mmol/L High 23-31 [facility] ([place]) Comment on above: Performed By: #### L IPID, ADIFF, ANEU, CMP, CBC, GFR #### [address] [address] Creatinine [Mass/Vol] 0.88 mg/dL Normal 0.55-1.02 [facility] ([place]) Comment on above: Performed By: #### L IPID, ADIFF, ANEU, CMP, CBC, GFR #### [address] [address] Electrolyte Balance 6.0 mEq/L Normal 4.0-15.0 [facility] ([place]) Comment on above: Performed By: #### L IPID, ADIFF, ANEU, CMP, CBC, GFR #### [address] [address] Glucose [Mass/Vol] 147 mg/dL High 83-110 [facility] ([place]) Comment on above: Performed By: #### L IPID, ADIFF, ANEU, CMP, CBC, GFR #### [address] [address] Potassium [Moles/Vol] 3.8 mmol/L Normal 3.5-5.1 [facility] ([place]) Comment on above: Performed By: #### L IPID, ADIFF, ANEU, CMP, CBC, GFR #### [address] [address] Sodium [Moles/Vol] 139 mmol/L Normal 136-145 [facility] ([place]) Comment on above: Performed By: #### L IPID, ADIFF, ANEU, CMP, CBC, GFR #### [place] [address] Urea nitrogen [Mass/Vol] 9 mg/dL Normal 7-18 [facility] ([place]) Comment on above: Performed By: #### L IPID, ADIFF, ANEU, CMP, CBC, GFR #### [place] [address] CBCon 06-30-2023 Erythrocyte distribution width (RBC) [Ratio] 14.6 % High 11.5-14.5 [facility] ([place]) Comment on above: Performed By: #### L IPID, ADIFF, ANEU, CMP, CBC, GFR #### [place] [address] Hematocrit (Bld) [Volume fraction] 42.0 % Normal 37.0-47.0 [facility] ([place]) Comment on above: Performed By: #### L IPID, ADIFF, ANEU, CMP, CBC, GFR #### [place] [address] Hgb 13.4 G/dL Normal 12.0-16.0 [facility] ([place]) Comment on above: Performed By: #### L IPID, ADIFF, ANEU, CMP, CBC, GFR #### [place] [address] MCH (RBC) [Entitic mass] 28.4 pg Normal 27.0-31.2 [facility] ([place]) Comment on above: Performed By: #### L IPID, ADIFF, ANEU, CMP, CBC, GFR #### [place] [address] MCHC 32.0 G/dL Low 33.0-37.0 [facility] ([place]) Comment on above: Performed By: #### L IPID, ADIFF, ANEU, CMP, CBC, GFR #### Varun [place] [address] [place], [place] [address] MCV (RBC) [Entitic vol] 88.5 fL Normal 80.0-94.0 [facility] [place] Comment on above: Performed By: #### L IPID, ADIFF, ANEU, CMP, CBC, GFR #### [address] [address] Platelet 188 10 3/mcL Normal 130-400 [facility] ([place]) Comment on above: Performed By: #### L IPID, ADIFF, ANEU, CMP, CBC, GFR #### [address] [address] Platelet mean volume (Bld) [Entitic vol] 6.2 fL Low 7.4-10.4 [facility] ([place]) Comment on above: Performed By: #### L IPID, ADIFF, ANEU, CMP, CBC, GFR #### [address] [address] RBC 4.74 10 6/mcL Normal 4.20-5.40 [facility] ([place]) Comment on above: Performed By: #### L IPID, ADIFF, ANEU, CMP, CBC, GFR #### [address] [address] WBC 9.9 10 3/mcL Normal 4.6-10.8 [facility] ([place]) Comment on above: Performed By: #### L IPID, ADIFF, ANEU, CMP, CBC, GFR #### [address] [address] LABORATORYOrdered By: SYSTEM SYSTEM on 06-30-2023 Monocyte distribution width Auto (Bld) [Entitic vol] 17.82 1 Invalid Interpretation Code 0.00 - 20.00 AO Workflow SS Comment on above: Result Comment: For ED adult patients suspected of sepsis, MDW<=20.0 does not rule out sepsis or risk of sepsis James 06-30-2023 U Creatinine 90.7 mg/dL Normal 28.0-117.0 [facility] ([place]) Comment on above: Performed By: #### L IPID, ADIFF, ANEU, CMP, CBC, GFR #### [address] [place], [place] [address] U Microalb 1927 mcg/dL Normal [facility] ([place]) Comment on above: Performed By: #### L IPID, ADIFF, ANEU, CMP, CBC, GFR #### [facility] [address] [place], [place] [address] U Ratio Alb/Cre 21 mcg/mg Normal 0-30 [facility] ([place]) Comment on above: Performed By: #### L IPID, ADIFF, ANEU, CMP, CBC, GFR #### [place] [id number] [place], [place] [address] XR ANKLE AND FOOT 6 VIEWS LE FTon 06-30-2023 XR ANKLE AND FOOT 6 VIEWS [...] Date: 06/30/2023 4:00:26 PM Ordering Provider: VICENTE Valadez [facility] ([place]) XR KNEE 1 OR 2 VIEWS LEFTon 06-30-2023 XR KNEE 1 OR 2 VIEWS LEFT ORIGINAL EXAMINATION: TWO XRAY VIEWS OF THE LEFT KNEE9/ 3:58 pm COMPARISON: 03/22/2020. HISTORY: ORDERING SYSTEM [...] Date: 06/30/2023 4:01:46 PM Ordering Provider: VICENTE Valadez [facility] ([place]) .Auto Diffon 02-05-2023 Basophil, Absolute 0.1 10 3/mcL Normal 0.0-0.2 [facility] ([place]) Comment on above: Performed By: #### L IPID, ADIFF, ANEU, CMP, CBC, GFR #### [address] [address] Basophils/100 WBC (Bld) 0.7 % Normal 0.0-2.5 [facility] [place] Comment on above: Performed By: #### L IPID, ADIFF, ANEU, CMP, CBC, GFR #### [address] [address] Eosinophil, Absolute 0.7 10 3/mcL High 0.0-0.4 [facility] ([place]) Comment on above: Performed By: #### L IPID, ADIFF, ANEU, CMP, CBC, GFR #### [address] [address] Eosinophils/100 WBC (Bld) 8.8 % High 0.0-7.0 [facility] ([place]) Comment on above: Performed By: #### L IPID, ADIFF, ANEU, CMP, CBC, GFR #### [address] [address] Lymphocyte, Absolute 2.8 10 3/mcL Normal 0.8-3.9 [facility] ([place]) Comment on above: Performed By: #### L IPID, ADIFF, ANEU, CMP, CBC, GFR #### [address] [address] Lymphocytes/100 WBC (Bld) 34.0 % Normal 10.0-50.0 [facility] ([place]) Comment on above: Performed By: #### L IPID, ADIFF, ANEU, CMP, CBC, GFR #### [address] [address] Monocyte, Absolute 0.6 10 3/mcL Normal 0.2-1.0 [facility] ([place]) Comment on above: Performed By: #### L IPID, ADIFF, ANEU, CMP, CBC, GFR #### [address] [address] Monocytes/100 WBC (Bld) 7.3 % Normal 1.7-13.0 [facility] ([place]) Comment on above: Performed By: #### L IPID, ADIFF, ANEU, CMP, CBC, GFR #### [address] [address] Neutrophils/100 WBC (Bld) 49.2 % Normal 37.0-80.0 [facility] ([place]) Comment on above: Performed By: #### L IPID, ADIFF, ANEU, CMP, CBC, GFR #### [address] [address] .GFRon 02-05-2023 GFR Non- 63 ml/min/1.73sqm Normal [facility] ([place]) Comment on above: Result Comment: GFR Population [...] IPID, ADIFF, ANEU, CMP, CBC, GFR #### [address] [address] GFR 76 ml/min/1.73sqm Normal [facility] ([place]) Comment on above: Result Comment: GFR Population [...] IPID, ADIFF, ANEU, CMP, CBC, GFR #### [address] [address] .NEUABSon 02-05-2023 Neutrophil, Absolute 4.1 10 3/mcL Normal 2.9-6.2 [facility] ([place] Comment on above: Performed By: #### L IPID, ADIFF, ANEU, CMP, CBC, GFR #### [address] [address] CBCon 02-05-2023 Erythrocyte distribution width (RBC) [Ratio] 14.1 % Normal 11.5-14.5 [facility] ([place]) Comment on above: Performed By: #### L IPID, ADIFF, ANEU, CMP, CBC, GFR #### [address] [address] Hematocrit (Bld) [Volume fraction] 45.2 % Normal 37.0-47.0 [facility] ([place]) Comment on above: Performed By: #### L IPID, ADIFF, ANEU, CMP, CBC, GFR #### [address] [address] Hgb 14.4 G/dL Normal 12.0-16.0 [facility] ([place]) Comment on above: Performed By: #### L IPID, ADIFF, ANEU, CMP, CBC, GFR #### [place] [address] MCH (RBC) [Entitic mass] 26.9 pg Low 27.0-31.2 [facility] ([place]) Comment on above: Performed By: #### L IPID, ADIFF, ANEU, CMP, CBC, GFR #### [place] [address] MCHC 31.8 G/dL Low 33.0-37.0 [facility] ([place]) Comment on above: Performed By: #### L IPID, ADIFF, ANEU, CMP, CBC, GFR #### [address] [address] MCV (RBC) [Entitic vol] 84.7 fL Normal 80.0-94.0 [facility] [place] Comment on above: Performed By: #### L IPID, ADIFF, ANEU, CMP, CBC, GFR #### [address] [address] Platelet 237 10 3/mcL Normal 130-400 [facility] ([place]) Comment on above: Performed By: #### L IPID, ADIFF, ANEU, CMP, CBC, GFR #### [address] [address] Platelet mean volume (Bld) [Entitic vol] 6.5 fL Low 7.4-10.4 [facility] ([place]) Comment on above: Performed By: #### L IPID, ADIFF, ANEU, CMP, CBC, GFR #### [place] [id number] RBC 5.34 10 6/mcL Normal 4.20-5.40 [facility] ([place]) Comment on above: Performed By: #### L IPID, ADIFF, ANEU, CMP, CBC, GFR #### [address] [address] WBC 8.3 10 3/mcL Normal 4.6-10.8 [facility] ([place]) Comment on above: Performed By: #### L IPID, ADIFF, ANEU, CMP, CBC, GFR #### [address] [address] CMPon 02-05-2023 Albumin Level 3.9 G/dL Normal 3.4-4.8 [facility] ([place]) Comment on above: Performed By: #### L IPID, ADIFF, ANEU, CMP, CBC, GFR #### [address] [address] Albumin/Globulin [Mass ratio] 1.3 {ratio} Normal 1.1-2.5 [facility] ([place]) Comment on above: Performed By: #### L IPID, ADIFF, ANEU, CMP, CBC, GFR #### [address] [address] ALP [Catalytic activity/Vol] 65 U/L Normal 40-135 [facility] ([place]) Comment on above: Performed By: #### L IPID, ADIFF, ANEU, CMP, CBC, GFR #### [address] [address] ALT [Catalytic activity/Vol] 20 U/L Normal 14-59 [facility] ([place]) Comment on above: Performed By: #### L IPID, ADIFF, ANEU, CMP, CBC, GFR #### [address] [address] AST [Catalytic activity/Vol] 19 U/L Normal 10-40 [facility] ([place]) Comment on above: Performed By: #### L IPID, ADIFF, ANEU, CMP, CBC, GFR #### [address] [address] Bili Total 0.7 mg/dL Normal 0.2-1.0 [facility] [facility] ([place]) Comment on above: Result Comment: Use of this assay is not recommended for patients undergoing treatment with eltrombopag due to the potential for falsely elevated results. Performed By: #### L IPID, ADIFF, ANEU, CMP, CBC, GFR #### [address] [address] BUN/Creatinine Ratio 14 ratio Normal 7-27 [facility] ([place]) Comment on above: Performed By: #### L IPID, ADIFF, ANEU, CMP, CBC, GFR #### [address] [address] Calcium [Mass/Vol] 10.1 mg/dL Normal 8.4-10.2 Formerly [facility], [facility] ([place]) Comment on above: Performed By: #### L IPID, ADIFF, ANEU, CMP, CBC, GFR #### [address] [address] Chloride [Moles/Vol] 100 mmol/L Normal 98-107 [facility] ([place]) Comment on above: Performed By: #### L IPID, ADIFF, ANEU, CMP, CBC, GFR #### [place] [address] CO2 [Moles/Vol] 33 mmol/L High 23-31 [facility] ([place]) Comment on above: Performed By: #### L IPID, ADIFF, ANEU, CMP, CBC, GFR #### [address] [address] Creatinine [Mass/Vol] 0.87 mg/dL Normal 0.55-1.02 formerly [facility] ([place]) Comment on above: Performed By: #### L IPID, ADIFF, ANEU, CMP, CBC, GFR #### [address] [address] Electrolyte Balance 8.0 mEq/L Normal 4.0-15.0 Formerly [facility] ([place]) Comment on above: Performed By: #### L IPID, ADIFF, ANEU, CMP, CBC, GFR #### [address] [address] Globulin 3.0 G/dL Normal [facility] ([place]) Comment on above: Performed By: #### L IPID, ADIFF, ANEU, CMP, CBC, GFR #### [address] [address] Glucose [Mass/Vol] 127 mg/dL High 83-110 Formerly [facility], [facility] ([place]) Comment on above: Performed By: #### L IPID, ADIFF, ANEU, CMP, CBC, GFR #### [address] [address] Potassium [Moles/Vol] 4.7 mmol/L Normal 3.5-5.1 formerly [facility] ([place]) Comment on above: Performed By: #### L IPID, ADIFF, ANEU, CMP, CBC, GFR #### [address] [address] Sodium [Moles/Vol] 141 mmol/L Normal 136-145 Formerly [facility], [facility] ([place]) Comment on above: Performed By: #### L IPID, ADIFF, ANEU, CMP, CBC, GFR #### [address] [address] Total Protein 6.9 G/dL Normal 6.4-8.2 On license of [facility]) Comment on above: Performed By: #### L IPID, ADIFF, ANEU, CMP, CBC, GFR #### [address] [address] Urea nitrogen [Mass/Vol] 12 mg/dL Normal 7-18 [facility] ([place]) Comment on above: Performed By: #### L IPID, ADIFF, ANEU, CMP, CBC, GFR #### [address] [address] LABORATORYOrdered By: SYSTEM SYSTEM on 02-05-2023 Albumin [...] 02-05-2023 Cholesterol [Mass/Vol] 147 mg/dL Normal 0-200 [facility] ([place]) Comment on above: Result Comment: Chol esterol Reference Interval: Less than 200 Desirable 200-239 Borderline high risk 240 and above High risk Performed By: #### L IPID, ADIFF, ANEU, CMP, CBC, GFR #### [address] [address] Cholesterol in HDL [Mass/Vol] 59 mg/dL Normal 40-60 [facility] ([place]) Comment on above: Performed By: #### L IPID, ADIFF, ANEU, CMP, CBC, GFR #### [address] [address] Cholesterol in LDL [Mass/Vol] 54 mg/dL Normal 0-130 [facility] ([place]) Comment on above: Performed By: #### L IPID, ADIFF, ANEU, CMP, CBC, GFR #### [address] [address] Triglyceride [Mass/Vol] 172 mg/dL High 0-150 [facility] ([place]) Comment on above: Result Comment: Trig lyceride Reference Interval: Less than 150 Normal 150-199 Borderline high risk 200-499 High risk 500 or higher Very high risk Performed By: #### L IPID, ADIFF, ANEU, CMP, CBC, GFR #### [address] [address] LABORATORYOrdered By: Karli Benites on 01-29-2022 Albumin [...] Body height 175.26 cm Balwinder Alves MD [facility] 05-17-2025 10:04-0400 Body mass index (BMI) [Ratio] 39.9 kg/m2 Balwinder Alves MD [facility] 05-17-2025 10:04-0400 Body weight 122.46 kg Balwinder Alves MD [facility] 05-17-2025 10:04-0400 Diastolic blood pressure 90 mm[Hg] Balwinder Alves MD [facility] 05-17-2025 10:04-0400 Heart rate 76 /min Balwinder Alves MD [facility] 05-17-2025 10:04-0400 Systolic blood pressure 150 mm[Hg] Balwinder Alves MD [facility] 02-06-2024 20:00-0400 Body temperature 98 [degF] [facility] 02-06-2024 20:00-0400 Diastolic blood pressure 73 mm[Hg] [facility] 02-06-2024 20:00-0400 Heart rate 68 /min [facility] 02-06-2024 20:00-0400 Respiratory rate 18 /min [facility] 02-06-2024 20:00-0400 SaO2% (BldA) [Mass fraction] 97 % [facility] 02-06-2024 20:00-0400 Systolic blood pressure 173 mm[Hg] [facility] 02-06-2024 15:49-0400 Body height 175.26 cm [facility] 02-06-2024 15:49-0400 Body mass index (BMI) [Ratio] 38.9 kg/m2 [facility] 02-06-2024 15:49-0400 Body weight 119.74 kg [facility] 12-09-2023 10:13-0500 Body weight 120.2 kg Tete FITZGERALD Work Phone: [facility] 12-09-2023 10:13-0500 Diastolic blood pressure 66 mm[Hg] Tete FITZGERALD Work Phone: [facility] 12-09-2023 10:13-0500 Heart rate 69 /min Tete FITZGERALD Work Phone: [facility] 12-09-2023 10:13-0500 Systolic blood pressure 190 mm[Hg] Tete Trevino PA Work Phone: [facility] [employer] 07-16-2023 10:53-0400 Body height 167.64 cm SENIOR LEAD DEVELOPER-C Laci Beltranharpal SENIOR LEAD DEVELOPER Work Phone: [facility] 07-16-2023 10:53-0400 Body mass index (BMI) [Ratio] 45.8 kg/m2 SENIOR LEAD DEVELOPER-C Laci Beltranharpal SENIOR LEAD DEVELOPER Work Phone: [facility] 07-16-2023 10:53-0400 Body weight 128.82 kg SENIOR LEAD DEVELOPER-C Laci Beltranharpal SENIOR LEAD DEVELOPER Work Phone: [facility] 07-04-2023 19:10-0400 Body temperature 98.24 [degF] ROHAN MCDOWELL SHOT LIGHTER-DOOR TO DOOR SALESPERSON [facility] 07-04-2023 19:10-0400 Diastolic Blood Pressure Non-Invasive 46 1 ROHAN MCDOWELL SH[employer] LIGH[employer] SALESPERSON [facility] 07-04-2023 19:10-0400 Heart rate 78 /min ROHAN MCDOWELL SH[employer] LIGHTER-[employer]OR TO [employer] SALESPERSON [facility] 07-04-2023 19:10-0400 Reason For Taking VItal Signs ROHAN MCDOWELL SHOT LIGHTER-[employer] TO [employer] SALESPERSON [facility] 07-04-2023 19:10-0400 Respiratory rate 18 /min ROHAN MCDOWELL SH[employer] LIGHTER-[employer] TO [employer] SALESPERSON [facility] 07-04-2023 19:10-0400 Systolic Blood Pressure Non-Invasive 142 1 ROHAN MCDOWELL SHOT LIGHTER-[employer]OR TO [employer]OR SALESPERSON [facility] 07-04-2023 16:39-0400 Diastolic Blood Pressure Non-Invasive 60 1 ROHAN MCDOWELL SHOT LIGHTER-DOOR TO DOOR SALESPERSON [facility] 07-04-2023 16:39-0400 Systolic Blood Pressure Non-Invasive 158 1 ROHAN KAPPER SHOT LIGHTER-DOOR TO DOOR SALESPERSON [facility] 07-04-2023 16:22-0400 Body temperature 97.88 [degF] ROHAN KAPPER SHOT LIGHTER-DOOR TO DOOR SALESPERSON [facility] 07-04-2023 16:22-0400 Diastolic Blood Pressure Non-Invasive 121 1 ROHAN KAPPER SHOT LIGHTER-DOOR TO [employer]OR SALESPERSON [facility] 07-04-2023 16:22-0400 Heart rate 72 /min ROHAN KAPPER SHOT LIGHTER-DOOR TO [employer]OR SALESPERSON [facility] 07-04-2023 16:22-0400 Respiratory rate 20 /min ROHAN KAPPER SHOT LIGHTER-DOOR TO DOOR SALESPERSON [facility] 07-04-2023 16:22-0400 Systolic Blood Pressure Non-Invasive 152 1 ROHAN KAPPER SHOT LIGHTER-DOOR TO [employer]OR SALESPERSON [facility] 07-04-2023 12:17-0400 Body temperature 97.88 [degF] ROHAN KAPPER SHOT LIGHTER-DOOR TO DOOR SALESPERSON [facility] 07-04-2023 12:17-0400 Heart rate 72 /min ROHAN KAPPER SHOT LIGHTER-DOOR TO DOOR SALESPERSON [facility] 07-04-2023 12:17-0400 Respiratory rate 20 /min ROHAN KAPPER SHOT LIGHTER-DOOR TO DOOR SALESPERSON [facility] 07-04-2023 11:20-0400 Heart rate 74 /min ROHAN KAPPER SH[employer] LIGH[employer] TO [employer] SALESPERSON [facility] 07-04-2023 07:54-0400 Heart rate 74 /min ROHAN KAPPER SH[employer] LIGH[employer] TO [employer] SALESPERSON [facility] 07-04-2023 04:11-0400 Heart rate 82 /min ROHAN KAPPER [employer] LIGH[employer] TO [employer] SALESPERSON [facility] 07-04-2023 04:11-0400 Reason For Taking VItal Signs ROHAN KAPPER SH[employer] LIGH[employer] TO [employer] SALESPERSON [facility] 07-03-2023 23:30-0400 Reason For Taking VItal Signs ROHAN KAPPER SH[employer] LIGH[employer] TO [employer] SALESPERSON [facility] 07-03-2023 03:07-0400 Heart rate 78 /min ROHAN KAPPER SH[employer] LIGH[employer] TO [employer] SALESPERSON [facility] 07-02-2023 22:59-0400 Heart rate 82 /min ROHAN KAPPER SHOT LIGHTER-[employer]OR TO [employer] SALESPERSON [facility] 06-30-2023 18:36-0400 Body height 160 cm ROHANFelipa CASPERER SHOT LIGHTER-DOOR TO DOOR SALESPERSON [facility] 06-30-2023 18:36-0400 Body weight 128 kg ROHAN KAPPER SH[employer] L[employer] SALESPERSON [facility] 06-30-2023 18:36-0400 Body weight 50 kg/m2 ROHAN KAPPER SH[employer] LIGH[employer] SALESPERSON [facility] 06-30-2023 15:17-0400 Blood Pressure Location ROHAN KAPPER SH[employer] LIGHTER-[employer]OR TO [employer] SALESPERSON [facility] 06-30-2023 15:17-0400 Blood Pressure Method ROHAN KAPPER SHOT LIGHTER-DOOR TO [employer] SALESPERSON [facility] Encounters Encounter Date Encounter Type Care Provider Facility Start: 06-15-2025 ambulatory Balwinder MARSHALL Facil ity:[facility] Start: 06-01-2025 ambulatory Balwinder MARSHALL Facil ity:[facility] Start: 05-25-2025 ambulatory Dorota James Facility: [facility] Start: 05-17-2025 End: 05-17-[address] Dorota James MD -[facility] Work Phone: Start: 05-17-2025 End: 05-17-2025 ambulatory Balwinder Alves MD -[facility] Start: 05-17-2025 End: 05-17-2025 ambulatory Balwinder Alves Facility:[facility] Start: 04-04-2025 Non-patient / Non-visit Dr. Dorota taylor MD -[facility] Work Phone: Start: 03-31-2025 End: 03-31-2025 ambulatory Balwinder Alves MD -Cat [facility] Start: 03-31-2025 End: 03-31-[address] Dorota James MD -Cat Scan [facility] Work Phone: Start: 03-31-2025 End: 03-31-2025 ambulatory Balwinder Alves Facility:[facility] Start: 03-16-2025 ambulatory Balwinder MARSHALL Facil ity:[facility] Start: 03-16-2025 Registered Referred Balwinder Alves MD [facility] Start: 03-15-2025 ambulatory Balwinder MARSHALL Facil ity:[facility] Start: 03-15-2025 Registered Referred Balwinder Alves MD [facility] Start: 03-02-2025 ambulatory Balwinder Alves OLS Facil ity:[facility] Start: 03-02-2025 Registered Referred Balwinder Alves MD [facility] Start: 02-07-2025 End: 02-07-2025 ambulatory Balwinder Alves MD [facility] Work Phone: Start: 02-07-2025 End: 02-07-2025 [facility] Start: 02-07-2025 End: 02-07-2025 ambulatory Balwinder MARSHALL Facility:[facility] Start: 01-23-2025 End: 01-23-2025 ambulatory Balwinder Alves MD [facility] Work Phone: Start: 01-23-2025 End: 01-23-2025 [facility] Start: 01-23-2025 End: 01-23-2025 ambulatory Balwinder Alves OLS Facility:[facility] Start: 01-09-2025 End: 01-09-2025 ambulatory Balwinder Alves MD [facility] Work Phone: Start: 01-09-2025 End: 01-09-[address] [facility] Start: 01-09-2025 End: 01-09-2025 ambulatory Balwinder MARSHALL Facility:[facility] Start: 01-02-2025 End: 01-02-2025 ambulatory Balwinder Alves MD [facility] Work Phone: Start: 01-02-2025 End: 01-02-2025 Departed Ref[facility] Start: 01-02-2025 Registered Referred Balwinder Alves MD [facility] Start: 01-02-2025 End: 01-02-2025 ambulatory Balwinder MARSHALL Facility:[facility] Start: 12-26-2024 End: 12-26-2024 ambulatory Balwinder Alves MD [facility] Work Phone: Start: 12-26-2024 End: 12-26-2024 [facility]ed [facility] Start: 12-26-2024 Registered Referred Balwinder Fontanez [facility] Start: 12-26-2024 End: 12-26-2024 ambulatory Balwinder MARSHALL Facility:[facility] Start: 12-16-2024 End: 12-16-2024 ambulatory Balwinder Alves MD [facility] Work Phone: Start: 12-16-2024 End: 12-16-2024 [facility] Start: 12-16-2024 Registered Referred Balwinder Fontanez [facility] Start: 12-16-2024 End: 12-16-2024 ambulatory Balwinder Alves OLS Facility:[facility] Start: 12-14-2024 End: 12-14-2024 ambulatory Balwinder Alves MD [facility] Work Phone: Start: 12-14-2024 End: 12-14-2024 Departed Referred [facility] Start: 12-14-2024 End: 12-14-2024 ambulatory Balwinder MARSHALL Facility:[facility] Start: 10-10-2024 ambulatory Balwinder MARSHALL Facil ity:[facility] Start: 10-10-2024 Registered Referred Balwinder Alves MD [facility] Start: 09-14-2024 End: 09-14-2024 Departed Referred [facility] Start: 09-14-2024 End: 09-14-2024 ambulatory Balwinder MARSHALL Facility:[facility] Start: 02-06-2024 End: 02-06-2024 Emergency department patient visit [facility] Work Phone: Start: 12-14-2023 End: 12-14-2023 ambulatory [facility] Work Phone: Start: 12-14-2023 End: 12-14-2023 Departed Referred [facility] Start: 12-09-2023 End: 12-09-2023 ambulatory [facility] Start: 12-09-2023 End: 12-09-2023 Office outpatient visit 15 minutes Tete FITZGERALD Work Phone: [facility] Comment on above: Closed fracture of d istal end of left fibula, unspecified fracture morphology, initial encounter (Primary Dx) Start: 11-16-2023 Orders Only Tete FITZGERALD Work Phone: [facility] Comment on above: Closed fracture of d istal end of left fibula, unspecified fracture morphology, initial encounter (Primary Dx) Start: 10-14-2023 End: 10-14-2023 ambulatory [facility] Start: 10-14-2023 End: 10-14-2023 Office outpatient visit 15 minutes Tete FITZGERALD Work Phone: [facility] Comment on above: Closed fracture of d istal end of left fibula, unspecified fracture morphology, initial encounter; Acute left ankle pain Start: 10-09-2023 Orders Only Tete FITZGERALD Work Phone: [facility] Comment on above: Closed fracture of l eft ankle, initial encounter (Primary Dx) Start: 09-23-2023 End: 09-23-2023 ambulatory SENIOR LEAD DEVELOPER-C Laci Brewer SENIOR LEAD DEVELOPER Work Phone: [facility] Work Phone: Start: 09-23-2023 End: 09-23-2023 Departed Referred SENIOR LEAD DEVELOPER-C Laci Brewer SENIOR LEAD DEVELOPER Work Phone: [facility] Start: 09-14-2023 End: 09-14-2023 ambulatory SENIOR LEAD DEVELOPER-C Laci Beltrantes SENIOR LEAD DEVELOPER Work Phone: [facility] Work Phone: Start: 09-14-2023 End: 09-14-2023 Departed Referred SENIOR LEAD DEVELOPER-C Laci Brewer SENIOR LEAD DEVELOPER Work Phone: [facility] Start: 07-17-2023 Telephone encounter Zander Ureña MD Work Phone: [facility] Comment on above: Other (Appt ) Start: 07-16-2023 End: 07-16-2023 Patient encounter procedure SENIOR LEAD DEVELOPER-C Laci Brewer SENIOR LEAD DEVELOPER Work Phone: [facility] Work Phone: Start: 06-30-2023 End: 07-05-2023 ambulatory LACI BELTRANTES SHOT LIGHTER-DOOR TO DOOR SALESPERSON Facility:B Start: 06-30-2023 End: 07-04-2023 ambulatory ROHAN MCDOWELL SHOT LIGHTER-DOOR TO DOOR SALESPERSON Facility:[facility] Start: 06-30-2023 End: 07-04-2023 Observation ROHAN MCDOWELL SHOT LIGHTER-DOOR TO DOOR SALESPERSON [facility] Start: 02-05-2023 End: 02-06-2023 ambulatory LACI BELTRANTES SHOT LIGHTER-DOOR TO DOOR SALESPERSON Facility:[facility] Start: 02-05-2023 End: 02-05-2023 Patient encounter procedure LACI BREWER SHOT LIGHTER-DOOR TO DOOR SALESPERSON [facility] Start: 01-29-2022 End: 01-29-2022 Patient encounter procedure LACI BREWER SHOT LIGHTER-DOOR TO DOOR SALESPERSON [facility] Start: 07-17-2021 End: 07-17-2021 Patient encounter procedure LACI BREWER SHOT LIGHTER-DOOR TO DOOR SALESPERSON [facility] Procedures Date Procedure Procedure Detail [...] DUTTON Start: 09-23-2023 Clostridium difficil e detection SENIOR LEAD DEVELOPER-C Laci Beltranharpal SENIOR LEAD DEVELOPER Work Phone: Start: 07-16-2023 Radiography of ankle SENIOR LEAD DEVELOPER -C Laci Brewer SENIOR LEAD DEVELOPER Work Phone: Start: 04-04-2023 Extraction of cataract ROHAN MCDOWELL SHOT LIGHTER-DOOR TO DOOR SALESPERSON Comment on above: Left side Start: 02-09-2020 Ophthalmic examinati on and evaluation LACI BREWER SHOT LIGHTER-DOOR TO DOOR SALESPERSON Comment on above: No retinopathy; [facility] Start: 03-22-2007 Arthroplasty of knee RY AN BALTES SHOT LIGHTER-DOOR TO DOOR SALESPERSON Comment on above: BILATERAL Start: 03-05-2007 Arthroplasty of knee RY AN BALTES SHOT LIGHTER-DOOR TO DOOR SALESPERSON Start: 10-05-1968 section LACI GUERRA SHOT LIGHTER-DOOR TO DOOR SALESPERSON Cataract (disorder) LACI ROWAN SHOT LIGHTER-DOOR TO DOOR SALESPERSON Comment on above: Right eye Cholecystectomy LACI BREWER SHOT LIGHTER-DOOR TO DOOR SALESPERSON Hysterectomy LACI BREWER APR N-DOOR TO DOOR SALESPERSON Miscellaneous (quali fier value) ROHAN MCDOWELL SHOT LIGHTER-DOOR TO DOOR SALESPERSON Comment on above: brain drains from br ain bleed 2013 Renal lithotripsy LACI DIAZ S SHOT LIGHTER-DOOR TO DOOR SALESPERSON Sling, device (physi shauna object) LACI BREWER SHOT LIGHTER-DOOR TO DOOR SALESPERSON Comment on above: Bladder H/o cystocele Tonsillectomy LACI BREWER AP RN-DOOR TO DOOR SALESPERSON Comment on above: as a teenager Plan of Treatment Date Care Activity Detail Author Start: 06-24-2026 DTaP/Tdap/Td Vaccines (2 - Td or Tdap) DTaP/Tdap/Td Vaccines (2 - Td or Tdap) [facility] Start: 01-23-2025 [facility] Start: 01-23-2025 Bacteria identified in Urine by Culture Urine Culture [facility] Start: 01-09-2025 Urine culture Urine Culture [facility] Start: 01-09-2025 [facility] Start: 01-02-2025 [facility] Start: 01-02-2025 Bacteria identified in Urine by Culture Urine Culture [facility] Start: 01-02-2025 Urine culture [facility] Start: 02-06-2024 [facility] Start: 11-25-2023 End: 11-16-2024 XR Ankle - left 3 Views XR ankle 3+ views left Imaging Routine Closed fracture of distal end of left fibula, unspecified fracture morphology, initial encounter Expected: 11/25/2023, Expires: 11/16/2024 [facility] Work Phone: Comment on above: Expected: 11/25/2023, Expires: Start: 11-25-2023 End: 11-25-2023 Patient encounter procedure 11/25/2023 10:30 AM EST Office Visit [facility] [address] [place] [phone] Tete Trevino PA [address] [place] [address] [facility] Start: 10-14-2023 End: 10-09-2024 XR Ankle - left 3 Views XR ankle 3+ views left Imaging Routine Closed fracture of left ankle, initial encounter Expected: 10/14/2023, Expires: 10/09/2024 [facility] Work Phone: Comment on above: Expected: 10/14/2023, Expires: Start: 10-14-2023 End: 10-14-2023 Patient encounter procedure 10/14/2023 10:00 AM EST Office Visit [facility] [address] [place] [phone] Tete Trevino PA [address] [place] [address] [facility] Start: 10-05-2023 Medicare Advantage Annual Wellness Visit Medicare Advantage Annual Wellness Visit [facility] Start: 06-05-2023 COVID-19 Vaccine ( season) COVID-19 Vaccine ( season) [facility] Start: 06-05-2023 COVID-19 Vaccine ( season) COVID-19 Vaccine ( season) [facility] Start: 06-05-2023 Influenza vaccination Influenza Vaccine (#1) [facility] Start: 06-03-2021 Zoster Vaccines (3 of 3) Zoster Vaccines (3 of 3) [facility] Start: 2008 Pneumococcal Vaccine: 65+ Years (1 - PCV) Pneumococcal Vaccine: 65+ Years (1 - PCV) [facility] Start: 2003 RSV Immunization aged 60 or older (1 - 1-dose 60+ series) RSV Immunization aged 60 or older (1 - 1-dose 60+ series) [facility] Start: 1993 Zoster Vaccines (1 of 2) Zoster Vaccines (1 of 2) [facility] Start: 1962 DTaP/Tdap/Td Vaccines (1 - Tdap) DTaP/Tdap/Td Vaccines (1 - Tdap) [facility] Start: 1955 Depression Screening Depression Screening [facility] Start: 1943 COVID-19 Vaccine (#1) COVID-19 Vaccine (#1) [facility] Start: 1943 Medicare Advantage Annual Wellness Visit (AWV) Medicare Advantage Annual Wellness Visit (AWV) [facility] Start: 1943 Screening for osteoporosis Bone Density Scan [facility] Basic metabolic 2008 panel with ionized calcium - Serum or Plasma [facility] CBC W Auto Different ial panel - Blood [facility] Electrocardiographic procedure [facility] Patient Education ED Abscess Inc ision And Drainage ED Wound Care After Packing ... [facility] Work Phone: Patient referral [facility] Work Phone: Urine culture [facility] XR Abdomen Single view [facility] Immunizations Immunization Date Immunization Notes Care Provider Fa cility 07-03-2022 influenza virus vacc ine, unspecified formulation LACI BREWER SHOT LIGHTER-DOOR TO DOOR SALESPERSON [facility] 01-14-2022 SARS-CoV-2 mRNA ([id number] e) vaccine LACI BREWER SHOT LIGHTER-DOOR TO DOOR SALESPERSON [facility] 06-14-2021 influenza virus vacc ine, unspecified formulation LACI BREWER SHOT LIGHTER-DOOR TO DOOR SALESPERSON [facility] 04-08-2021 zoster vaccine recombinant LACI BREWER SHOT LIGHTER-DOOR TO DOOR SALESPERSON [facility] 01-01-2021 SARS-CoV-2 (COVID-19 ) mRNA BNT-162b2 vax LACI BREWER SHOT LIGHTER-DOOR TO DOOR SALESPERSON [facility] 12-10-2020 SARS-CoV-2 (COVID-19 ) mRNA BNT-162b2 vax LACI BREWER SHOT LIGHTER-DOOR TO DOOR SALESPERSON [facility] Comment on above: Result Comment: 2020: [id number] 05-06-2020 influenza virus vacc ine, unspecified formulation LACI BALHARPAL SHOT LIGHTER-DOOR TO DOOR SALESPERSON [facility] 05-06-2020 pneumococcal conjuga te vaccine, 13 valent LACI BREWER SHOT LIGHTER-DOOR TO DOOR SALESPERSON [facility] 07-06-2019 influenza virus vacc ine, unspecified formulation LACI BREWER [facility] 09-03-2018 influenza virus vacc ine, unspecified formulation LACI BREWER [facility] 08-05-2018 influenza virus vacc ine, unspecified formulation LACI BREWER SHOT [facility] 07-04-2018 influenza virus vacc ine, unspecified formulation [facility] 06-04-2018 influenza virus vacc ine, unspecified formulation [facility] 06-23-2017 influenza virus vacc ine, unspecified formulation [facility] 06-10-2017 influenza virus vacc ine, unspecified formulation [facility] 06-24-2016 influenza virus vacc ine, unspecified formulation [facility] 06-24-2016 tetanus toxoid, redu chivo diphtheria toxoid, and acellular pertussis vaccine, adsorbed [facility] 07-17-2015 pneumococcal conjuga te vaccine, 13 valent LACI BREWER [employer] [facility] 06-19-2015 influenza virus vacc ine, unspecified formulation LACI BREWER [employer] [facility] 09-06-2014 influenza virus vacc ine, unspecified formulation LACI BREWER [employer] [facility] 06-08-2013 pneumococcal polysaccharide vaccine, 23 valent LACI BREWER [employer] [facility] 09-01-2012 influenza virus vacc ine, unspecified formulation LACI BREWER [employer] [facility] 05-28-2012 zoster vaccine, live LACI MONTEJO [employer] [employer] [facility] Payers Date Payer Category Payer Medicaid [id number] 2024 Self-pay [id number] 2023 Medicare [facility] [employer] [id number] 2023-Present [phone] [address] [place] [address] Medicare HMO [id number] 2023 Medicare [id number] 2023 Unknown [id number] 1945 Unknown [id number] [id number] 1945 Unknown [id number] 2..840.1.978039.3.579.2.627 1945 Unknown [id number] 2.16840.1.880933.3.579.2.627 Medicare [id number] Unknown [id number] 2.16.840.1.129379.3.579.2.462 Unknown [id number] 2.16840.1.421284.3.579.2.462 Unknown [id number] 2.840.1.021818.3.579.2.462 Unknown [id number] 2.840.1.902369.3.579.2.462 Unknown [id number] 2.840.1.545004.3.579.2.462 Unknown [id number] 2.840.1.417463.3.579.2.462 Unknown [id number] 2.840.1.618153.3.579.2.462 Unknown [id number] 2.840.1.914009.3.579.2.462 Unknown [id number] 2.840.1.950886.3.579.2.462 Unknown [id number] 2.840.1.352546.3.579.2.462 Unknown [id number] 2.840.1.556599.3.579.2.462 Unknown [id number] 2.840.1.370262.3.579.2.462 Unknown [id number] 2.16840.1.660128.3.579.2.462 Unknown [id number] 2.16840.1.857243.3.579.2.462 Unknown [id number] 2.840.1.634035.3.579.2.462 Unknown [id number] 2.16.840.1.546470.3.579.2.462 Unknown [id number] 2.16.840.1.871979.3.579.2.462 Unknown [id number] 2.16.840.1.659889.3.579.2.462 Social History Date Type Detail Facility Start: 04-06-2019 End: 02-06-2024 Ex-smoker (finding) [facility] Comment on above: Quit in 2014, not ar ound cigarette smoke Start: 1945 Sex Assigned At Female A [facility] Start: 07-16-2023 End: 02-06-2024 Tobacco smoking status [facility] Tobacco smoking consumption unknown [facility] Start: 1945 Sex Assigned At Not on file [facility] Start: 10-14-2023 End: 12-09-2023 Gender identity Not on file [facility] Start: 10-14-2023 Tobacco smoking stat us KSIS Never smoked tobacco [facility] Start: 10-14-2023 Tobacco use and exposure Smokeless tobacco non-user [facility] Start: 10-14-2023 End: 12-09-2023 History of Social function [facility] Start: 01-04-2025 End: 01-24-2025 Sex Female (finding) [facility] Medical Equipment Procedure Code Equipment Code Equipment Origin al Text Equipment Identifier Dates BD UF SHORT PEN NEEDLE [id number] Start: 08-29-[address] Strips Start: 10-16-2020 Lancets Start: 04-23-2021 BD UF SHORT PEN NEEDLE [id number], 0 Refill(s), 141.8 Start: 08-29-2020 See Instructions , EA=BOX of 100 2x daily testing once touch untra blue dx: diabetes, # 6 EA, 3 Refill(s), Pharmacy: [facility]/pharmacy #[id number], Diabetes, 166.37, cm, 07/24/21 11:31:00 EDT, Height, 134.5, kg, 07/24/21 11:31:00 EDT, Dosing Weight Start: 07-24-2021 See Instructions , EA=BOX OF 100 ONETOUCH DELICA LANCETS FINE, 33 GA TO TEST BID Diabetes R11.9, # 6 EA, 3 Refill(s), Pharmacy: [facility]/pharmacy #[id number], Diabetes, 166.37, cm, 07/24/21 11:31:00 EDT, Height, 134.5, kg, 07/24/21 11:31:00 EDT, Dosing Weight Start: 07-24-2021 See Instructions , Using Twice Daily. ONE BOX OF 100. BD UF 8mm 31 G (short) qs 3 month supply Diabetes Mellitus E11.9, # 2 EA, 0 Refill(s), Pharmacy: [facility]/pharmacy #[id number], 167.6, cm, 11/05/21 9:58:00 EST, Height, 135.4, kg, 11/05/21 9:58:00 EST, Dosing... Start: 12-20-2021 See Instructions , EA=BOX of 100 2x daily testing once touch untra blue dx: diabetes, # 6 EA, 3 Refill(s), Pharmacy: [facility]/pharmacy #[id number], Diabetes, 167.6, cm, 05/20/22 12:08:00 EDT, Height, 134.9, kg, 05/20/22 11:59:00 EDT, Dosing Weight Start: 08-05-2022 See Instructions , EA=BOX OF 100 ONETOUCH DELICA LANCETS FINE, 33 GA TO TEST BID Diabetes R11.9, # 6 EA, 3 Refill(s), Pharmacy: [facility]/pharmacy #[id number], Diabetes, 167.6, cm, 08/19/22 12:13:00 EST, Height, 135.4, kg, 08/19/22 12:13:00 EST, Dosing Weight Start: 09-10-2022 See Instructions , EA=ONE BOX OF 100, BID BD UF 8mm 31 G (short) qs 3 month supply Diabetes Mellitus E11.9, # 2 EA, 3 Refill(s), Pharmacy: [facility]/pharmacy #[id number], 167.6, cm, 11/20/22 11:29:00 EST, Height, 134, kg, 11/20/22 11:29:00 EST, Dosing Weight Start: 11-20-2022 See Instructions , EA=BOX of 100 2x daily testing once touch untra blue dx: diabetes, # 6 EA, 3 Refill(s), Pharmacy: [facility]/pharmacy #[id number], Diabetes, 167.6, cm, 05/20/22 12:08:00 EDT, Height, 134.9, kg, 05/20/22 11:59:00 EDT, Dosing Weight Start: 08-05-2022 See Instructions , EA=BOX OF 100 ONETOUCH DELICA LANCETS FINE, 33 GA TO TEST BID Diabetes R11.9, # 6 EA, 3 Refill(s), Pharmacy: [facility]/pharmacy #[id number], Diabetes, 167.6, cm, 08/19/22 12:13:00 EST, Height, 135.4, kg, 08/19/22 12:13:00 EST, Dosing Weight Start: 09-10-2022 See Instructions , EA=ONE BOX OF 100, BID BD UF 8mm 31 G (short) qs 3 month supply Diabetes Mellitus E11.9, # 2 EA, 3 Refill(s), Pharmacy: [facility]/pharmacy #[id number], 167.6, cm, 11/20/22 11:29:00 EST, Height, 134, kg, 11/20/22 11:29:00 EST, Dosing Weight Start: 11-20-2022 Functional Status Date Assessment Result Facility 07-04-2023 Functional Status Room check performed [facility] 07-04-2023 Functional Status right knee high applied /on [facility] 07-04-2023 Functional Status [facility] 07-04-2023 Functional Status [facility] 07-04-2023 Functional Status Demonstrates C orrect Call Light Use Yes [facility] 07-04-2023 Functional Status Done [facility] 07-04-2023 Functional Status [facility] 07-03-2023 Functional Status Positioning Repositions self [facility] 07-03-2023 Functional Status [facility] 07-03-2023 Functional Status [facility] 07-03-2023 Functional Status [facility] 07-03-2023 Functional Status [facility] 07-03-2023 Functional Status [facility] 07-02-2023 Functional Status [facility] 07-02-2023 Functional Status [facility] Functional Status [facility] 07-01-2023 Functional Status Single level home [facility] 07-01-2023 Functional Status [facility] 06-30-2023 Functional Status Sensory Deficits None A [facility] 06-30-2023 Functional Status Activity Rosa tance Independent [facility] Mental Status Date Assessment Result Facility 07-04-2023 Mental Status Orientation Orie nted x 4, Follows simple commands [facility] 07-03-2023 Mental Status [facility] Mental Status Orientation Asse ssment Oriented x 4 [facility] 07-02-2023 Mental Status [facility] 07-01-2023 Mental Status [facility] Clinical Notes 06-30-2023 to 05-18-2025 Note Date & Type Note Facility 05-18-2025 Radiology Diagnostic study note [facility] Imaging Services [address] [place], [place] [address] Abdomen Single View MR#: [id number] Acct: [id number] Name: GUMARO HUFF Rep #: [id number] : 1945 F 80 From: Gena Barth MD PCP: Dr. Balwinder Alves MD Status: REG CLI Study:Abdomen Single View Date of Exam: 05/17/25 Exam# [id number] Ordering Dr: Dorota James MD PROCEDURE: ABDOMEN [...] renal staghorn calculus is redemonstrated. Reading Location: [place] [address] CC: Dr. Dorota James MD; Dr. Balwinder Alves MD ~ Can[employer] Goods Fabricator: Signed [facility] 05-17-2025 Evaluation note Diagnosis Onset Date Resolution Flank pain acute May 17, 2 025 9:40am Staghorn calculus acute May 17, 2025 9:40am Uncontrolled type 2 diabetes mellitus acute May 17, 2 025 9:40am UTI (urinary tract infection) acute May 17 9:40am HTN (hypertension) chronic May 17, 2025 9:40am [facility] Work Phone: [phone]) 138-931506-27-2025 Radiology Diagnostic study note [facility] Imaging Services [address] [place], [place] [address] Abdomen/Pelvis without Cont MR#: [id number] Acct: [id number] Name: GUMARO HUFF Rep #: [id number] : 1945 F 80 From: Adalid Hanna MD PCP: Dr. Balwinder Alves MD Status: REG CLI Study:Abdomen/Pelvis without Cont Date of Exa m: 03/31/25 Exam# [id number] Ordering Dr: Dorota James MD PROCEDURE: ABDOMEN/PELVIS [...] Sigmoid diverticulosis. Status post cholecystectomy. Reading Location: [id number] CC: Dr. Dorota James MD; Dr. Balwinder Alves MD ~ [employer] Fabricator: Signed [facility]05-04-2024 Discharge summary Author Omid Montiel [facility] February 06, 2024 6:02pm Note Date/Time February 06, 2024 4:09pm [facility] Medical Records Department [address] [place] [address] Emergency Department Summary 02/06/24 MR#: [id number] Acct: [id number] Name: GUMARO HUFF Rep #:[id number] : 1945 78 From: Omid Montiel MD PCP: Dr. Balwinder Alves MD Status:[facility] Location: ED HPI History of Present Illness Chief Complaint: Wound Check Narrative Narrative: 78-year-old female past medical history of diabetes presents from halfway facility for right labia majora abscess. She states it has been there for approximately [address] Alves at the facility had lanced the area, but her daughter reports that it was "deep". It was not deep enough to take a packing. She has been on doxycycline and Keflex, but there has been a reaccumulation of fluid and the right labia has become more swollen. She presents for incision and drainage of the area again, and reportedly needs a PICC line because they want to start vancomycin. [facility] Medical History Brain bleed Cataract [...] on antibiotics orally. Disposition is discharged to [facility] in stable condition. History & Record Review [...] Provider] - 2 Days Laci Brewer NP, SENIOR LEAD DEVELOPER-C [Non-Staff] - Activity Restrictions/Additional Instructions: Remove packing/have packing removed in 48 hours. Do not leave in longer. Continue vancomycin through your peripheral IV. Disposition Disposition: Half-Way Facility Discharge Location: [facility] What to do if you have Problems For any increased pain, shortness of breath, bleeding, nausea or vomiting, chestpain, or any unexpected problems, contact your Primary Care Provider. Call [employer] [facility] ([phone]) or report to the closest Emergency Room. Call 911 if necessary. 02/06/24 9710 <Electronically signed by Omid Montiel MD> Cosigner Signature (if applicable): CC: Dr. Balwinder Alves MD ~ Signed [facility] Work Phone: [phone]) 402-371803-06-2024 History of Present illness Narrative* LIA Champagne - 12/09/2023 10:30 AM EST Images from the original note were not included. [facility] [address] [place] [address] [place] [phone] Dept: [phone] Dept Gumaro Huff 1945 [id number] 12/09/2023 HISTORY OF PRESENT ILLNESS: Gumaro returns [...] to improve. Electronically signed by LIA Champagne [facility] Department of Orthopedic surgery 12/09/2023 3:43 PM Voice recognition was used for portions of this note and although it was reviewed prior to signing some incorrect words or phrases could be present. documented in this [facility]01-10-2024 History of Present illness Narrative* LIA Champagne - 10/14/2023 10:00 AM EST Images from the original note were not included. [facility] [address] [place] [address] [address] [facility] [address] Dept: [phone] Dept Gumaro Huff 1945 [id number] 10/14/2023 HISTORY OF PRESENT ILLNESS: Gumaro returns [...] with Imaging. Electronically signed by LIA Champagne [facility] Department of Orthopedic surgery 10/14/2023 3:50 PM Voice recognition was used for portions of this note and although it was reviewed prior to signing some incorrect words or phrases could be present. documented in this [facility] [id number] Telephone encounter Note* Telephone Encounter - Kimberly Capellan MA - 09/03/2023 8:53 AM EST Left distal fibula fx doi 07/02/23 she is in a boot. Can only be seen in [place] or [place]. No wads [id number] Miscellaneous Notes* Telephone Encounter - Kimberly Capellan MA - 09/03/2023 8:53 AM EST Left distal fibula fx doi 07/02/23 she is in a boot. Can only be seen in [place] or [place]. No wads * Telephone Encounter - Sammie Lantigua - 09/02/2023 12:08 PM EST Gareth an RN at [facility] called [phone] ext 2008, he states that they just got Gumaro from [place] and they are looking for her to [...] [facility] or 9am in [place] if not already double booked. documented in this [facility]11-29-2023 Telephone encounter Note* Telephone Encounter - Sammie Lantigua - 09/02/2023 12:08 PM EST Gareth toussaint RN at [facility] called [phone] ext 2008, he states that they just got Gumaro from [place] and they are looking for her to [...] today and then works again tomorrow. [id number] Miscellaneous Notes* Telephone Encounter - Sammie Lantigua - 09/02/2023 12:08 PM EST Gareth toussaint RN at [facility] called [phone] ext 2008, he states that they just got Gumaro from [place] and they are looking for her to [...] [facility] or 9am in [place] if not already double booked. documented in this encounterSSumma Health [place] [id number] Telephone encounter Note* Telephone Encounter - Billy Araya MA - 07/17/2023 9:27 AM EDT LVM to schedule with Dr. Ureña on Thursday at 1pm in [facility] or 9am in [place] if not already double booked. [facility] [id number] Hospital Discharge instructions Patient Education 07/03/2023 14:56:59 Urinary Tract Infection, Adult, Waas-kh-Tgnc Urinary Tract Infection, Adult A urinary tract [...] Follow these instructions at home: Medicines Take bgtw-aiz-fntfodk and prescription medicines only as told by [...] 03/09/2009 Document Revised: 09/08/2019 Document Reviewed: 03/31/2019 [employer]ystems Patient Education 2020 [employer]. Follow Up Care 06/30/2023 15:11:52 With:LACI BREWER Address: [address] [place] [address] [phone] When:3-5 days Comments:Please schedule a Follow up appt with your PCP after d/c. [facility] 09-29-2023 Note Discharge Instructions Thank you for allowing [employer] to assist you with your healthcare needs. The following is importantdischarge information regarding your hospital visit. Your Care Team Heather Hunt APRN Your Diagnosis Ankle pain-swelling Depression Fall Fibula fracture Hypertension Type 2 diabetes mellitus Urinary tract infection What to do next Scheduled Follow-Up Appointments Appointment Type [facility] With [facility] 11[facility]30 AM LACI GÓMEZ [address] [phone] Follow Up Appointments Follow Up with LACI BREWER When Within 3-5 days Why: Please schedule a Follow up appt with your PCP after d/c. Where: [address] [place] [address] [phone] The Following Activity and Diet Have Been [...] When Why Instructions Last Dose New acetaminophen-hydrocodone ([place] 325- 5 mg oral tablet) 1 tab(s) [...] Follow these instructions at home: Medicines Take gszo-wqk-wjaaojq and prescription medicines only as told by [...] 03/09/2009 Document Revised: 09/08/2019 Document Reviewed: 03/31/2019 [employer] Patient Education 2020 [employer]. Additional Information VACCINATE! IT SAVES LIVES! Members of the community who have not yet received the COVID-19 vaccine and would like to receive it can visit one of [facility] vaccine clinics. There are many vaccine clinic locations within the [facility]. For locations and available times, please visit [email or web address].[place].gov/. It is important to note that some COVID mobile vaccine clinics are held outdoors and may be canceled in rainy or stormy conditions. To learn more about pediatric vaccinations (ages 5-11), we invite you to visit the [facility] webpage. [email or web address].[email or web address].org/pages/[email or web address]-[email or web address]-Mlazp-[email or web address] stions.htmlTo learn more about the COVID-19 vaccine, we invite you to visit the CDC website for a list of frequently asked questions.https://www.cdc.gov/coronavirus/2019-ncov/vaccines/faq.html [facility] [employer] Patient Portal Access Instructions: Stay connected with your healthcare team and access your personal medical information anytime with the [facility] Patient Portal. Please follow the directions below to create your [facility] account: 1.Access the email account you provided upon registration to the hospital/physician office.2.Look for an invitation email from [facility].3.Open the email and access the invitation link: AcceptInvitation to [facility].4.Fill in the required correa to create your account. To access your account, visit [email or web address]. Click the blue button labeled "Access Patient Portal" and then log in with the username and password that you created in the steps above. You will be able to view your test results, lab results, a summary of your visits, upcoming appointments and more. There is also a convenient messaging option where you can send secure messages to your p [employer]. In addition, you will have the ability to download any documents or summaries to your computer and/or send the information securely to a physician. Remember that your healthcare information is confidential, so carefully consider who you will allowto register on the [facility] [employer] Patient Portal for access to your information. You can also access the [facility] Patient Portal on the [employer] [employer] calos. Simply click on "Patient Portal" and then log into your account. If you would like to receive a full copy of your medical records, please contact the [facility] Medical Records Department by calling [phone], Thursday through Thursday between 8 a.m. and [...] Call your local pharmacy or go to http://Sw[employer].Webinar.ru/1N0Ju5c to find one close to you.3.Make use of household items: Use cat litter or old coffee grounds to dispose medications if other options arenot available. Mix your drugs with these household products, seal them in an airtight container andthrow it into the garbage. Call [facility]: [phone] to be sure your drugs can be [...] Patient Education Materials Urinary Tract Infection, Adult, Tjtg-mm-Dehj Medication Leaflets My discharge plan and instructions have been reviewed and explained to me and I,GUMARO HUFF understand my current condition and have read and understand these discharge instructions. I have received a written copy of the plan/instructions. If I have questions, I am aware that I should contact my doctor. Patient/Rail Bonder Signature: Date/Time: Relationship to Patient: Witness Name/Signature: Date/Time: [facility]09-29-2023 Note Date of Service 07/03/2023 Chief Complaint Fibula fracture Subjective 78-year-old female with past medical history significant for HTN, HLD, type 2 diabetes mellitus, morbid obesity. Next Patient presented to [facility] emergency department on 06/30/2023 with left [...] currently. Pain was not well controlled with [place] alone. Objective Vitals and Measurements T: 36.6 [...] Dr. Roberto, nonweightbearing status for 6 weeks. [place] for pain. Patient has a documented allergy [...] Time Spent 36 minutes was spent in ksro-kb-nrsu time and coordination of care for this patient, including but not limited to personally gathering history, examining the patient, reviewing labs and images and records, counseling patient and/or family about diagnosis and potential workup if applicable, as detailed above as well as discussing the case with patient's interdisciplinary team where applicable. Digitally Signed by HEATHER HUNT on 07/03/2023 01:33 PM [facility]09-28-2023 Note Date of Service 07/02/2023 Chief Complaint Fall Subjective 78-year-old female with past medical history significant for HTN, HLD, type 2 diabetes mellitus, morbid obesity. Next Patient presented to [facility] emergency department on 06/30/2023 with left [...] Dr. Roberto, nonweightbearing status for 6 weeks. [place] for pain. Patient has a documented allergy [...] by HEATHER HUNT on 07/02/2023 04:17 PM [facility]09-28-2023 Note. MICRO - Microbiology PROCEDURE: Urine Culture [...] Locations *1: This test was performed at: [facility], [address] [place] [address], [phone] , [facility] ([place])07-01-2023 Note Date of Service 07/01/2023 Chief Complaint [...] Patient states that she has been to [facility] before and would be willing to go [...] - holding off until seen by ortho. *public services librarian consulted for discharge planning. *Continue PO pain [...] home medications, discussing plan of care with nursing,medical social consultant, and therapy, examining patient, collaborating with physician, and documenting in chart. Digitally Signed by ROHAN MCDOWELL on 07/01/2023 04:17 PM [facility]09-26-2023 Note Date of Service 06/30/2023 Chief Complaint [...] to evaluate and treat. We will consult medical social consultant for discharge planning. Check CBC and BMP [...] PT and OT to evaluate and treat. *public services librarian consulted for discharge planning. *Continue PO pain [...] 04/06/2019 Use: Never., 04/06/2019 Home/Environment Self Primary Hearing Therapy Director:., 04/06/2019 Nutrition/Health Type of diet: Regular. Appetite Good. Eating Difficulties None. Caffeine intake amount: Occ Coke. Two protein drink daily, it has caffeine of one cup of coffee., 08/19/2022 Substance Abuse Use: Never., 04/06/2019 Tobacco Tobacco Use: Former smoker, quit more than 30 days ago., 04/06/2019 Family History Arthritis: Sister. Asbestosis: Father. Cancer: Mother. Diabetes: Sister. Guillain [place] syndrome: Sister. Heart disease: Sister. Malignant neoplasm [...] by ROHAN MCDOWELL on 06/30/2023 04:51 PM [facility]09-26-2023 Note ORIGINAL EXAMINATION: 3 x-ray views of [...] Sign Date: 06/30/2023 4:00:26 PM Ordering Provider: [address]26-2023 Note ORIGINAL EXAMINATION: TWO XRAY VIEWS [...] Sign Date: 06/30/2023 4:01:46 PM Ordering Provider: [address]26-2023 Evaluation + Plan noteExtracted from: Title:History and Physical Author:ROHAN MCDOWELL APRN-DOOR TO DOOR SALESPERSON Date:06/30/23 1. Ankle pain-swelling Acute, s/p mechanical fall at home *X-ray of left ankle reveals fracture of distal fibula. *Consult Dr. Jose Roberto, orthopedics, for recommendation. *Patient is non weightbearing to left ankle. *Consult placed to PT and OT to evaluate and treat. *public services librarian consulted for discharge planning. *Continue PO pain [...] Appointment Date:09/22/2023 11:30:00 AM Scheduled Provider:LACI BREWER Location:[facility] Appointment Type: OV [facility] Evaluation + Plan note Future Appointments Appointment Date:07/24/2021 11:30:00 AM Scheduled Provider:LACI BREWER Location:[facility] Appointment Type:PC OV Future Scheduled Tests Laboratory* Vitamin D Level 01/22/21 * Vitamin D Level 11/06/20 [facility] Evaluation + Plan note Future Appointments Appointment Date:02/04/2022 11:00:00 AM Scheduled Provider:LACI BREWER Location:[facility] Appointment Type:PC OV Follow Up [facility] Evaluation + Plan note Future Appointments Appointment Date:02/10/2023 11:30:00 AM Scheduled Provider:LACI BREWER Location:[facility] Appointment Type:PC OV [facility] Evaluation note* Diagnosis Onset Date Resolution Status Closed fracture of left distal fibula acute Left ankle pain acute [facility] Work Phone: Evaluation note* Diagnosis Closed fracture of left ankle, initial encounter- [facility] Diagnosis Closed fracture of distal end of left fibula, unspecified fracture morphology, initial encounter Acute left ankle pain documented in this encounter [facility]* Diagnosis Closed fracture of distal end of left fibula, unspecified fracture morphology, initial encounter- Primary documented in this encounter [facility]* Diagnosis Closed fracture of distal end of left fibula, unspecified fracture morphology, initial encounter- Primary documented in this encounter [facility] noteNo assessment information availableWLouis [facility] Work Phone: Evaluation note* Diagnosis Onset Date Resolution Status Admit Date Kidney stones acute May 9:40am UTI (urinary tract infection) acute May 17, 2025 9:40am [facility] Work Phone: Hospital course Narrative No data available for this section [facility] Discharge instructions No data available for this section [facility] Discharge instructions Additional Instructions Remove packing/have packing removed in 48 hours. Do not leave in longer. Continue vancomycin through your peripheral IV.[facility] Work Phone: Progress note No data available for this section [facility] Reason for referral (narrative)No reason for referral information availableWLou[facility] Work Phone: Summary Purpose Family History No Family History Records Found Advance Directives No Advanced Directives Records Found Advance Directive Response Recorded Date/ Time Name of Medical Power of Lithoduplicator Operator casey laureano February 06, 2024 3:49pm Living Will Yes February 06, 2024 3: 49pm Power of Lithoduplicator Operator Yes February 06, 2024 3:49pm Chief Complaint and Reason for Visit Chief Complaint LEFT FIBULA Room 1 LABWORK Reason for Visit Closed fracture of l eft distal fibula Left ankle pain Chief Complaint LEFT FIBULA Room 1 LABWORK ALF LAB WORK Reason for Visit Closed fracture of l eft distal fibula Left ankle pain Chief Complaint LABWORK ALF LAB WORK ALF LAB WORK Chief Complaint ALF LAB WOR K wound Chief Complaint Admit Date ALF LAB WORK September 14 5:00am ALF LAB WORK October 10, 2024 7:30pm ALF LAB WORK December 14, 2024 5 :00am LABWORK December 16, 2024 6:1 2am ALF LAB WORK January 02, 2025 7 :30pm Chief Complaint Admit Date ALF LAB WORK September 14 5:00am ALF LAB WORK October 10, 2024 7:30pm ALF LAB WORK December 14, 2024 5 :00am LABWORK December 16, 2024 6:1 2am ALF LAB WORK January 02, 2025 7 :30pm LABWORK January 09, 2025 12:4 0pm Chief Complaint Admit Date ALF LAB WORK September 14 5:00am ALF LAB WORK October 10, 2024 7:30pm ALF LAB WORK December 14, 2024 5 :00am LABWORK December 16, 2024 6:1 2am LABWORK December 26, 2024 7:0 8am ALF LAB WORK January 02, 2025 7 :30pm LABWORK January 09, 2025 12:4 0pm Chief Complaint Admit Date ALF LAB WORK October 10, 2024 7:30pm ALF LAB WORK December 14, 2024 5 :00am LABWORK December 16, 2024 6:1 2am LABWORK December 26, 2024 7:0 8am ALF LAB WORK January 02, 2025 7 :30pm LABWORK January 09, 2025 12:4 0pm ALF LAB WORK January 23, 2025 1 1:30pm Chief Complaint Admit Date ALF LAB WORK December 14, 2024 5 :00am LABWORK December 16, 2024 6:1 2am LABWORK December 26, 2024 7:0 8am ALF LAB WORK January 02, 2025 7 :30pm LABWORK January 09, 2025 12:4 0pm ALF LAB WORK January 23, 2025 1 1:30pm ALF LAB WORK February 07, 2025 3:30 am Chief Complaint Admit Date ALF LAB WORK December 14, 2024 5 :00am LABWORK December 16, 2024 6:1 2am LABWORK December 26, 2024 7:0 8am ALF LAB WORK January 02, 2025 7 :30pm LABWORK January 09, 2025 12:4 0pm ALF LAB WORK January 23, 2025 1 1:30pm ALF LAB WORK February 07, 2025 3:30 am ALF LAB WORK March 02, 2025 4:3 0am ALF LAB WORK March 15, 2025 4: 00am KIDNEY STONES March 31, 2025 7:51 am Chief Complaint Admit Date ALF LAB WORK January 23, 2025 1 1:30pm ALF LAB WORK February 07, 2025 3:30 am ALF LAB WORK March 02, 2025 4:3 0am ALF LAB WORK March 15, 2025 4: 00am ALF LAB WORK March 16, 2025 5: 00am KIDNEY STONES March 31, 2025 7:[address] follow up May 17, 2025 9: 40am Reason for Visit Admit Date Kidney stones May 17, 2025 9: 40am UTI (urinary tract infection) May 9:40am Chief Complaint Admit Date ALF LAB WORK January 23, 2025 1 1:30pm ALF LAB WORK February 07, 2025 3:30 am ALF LAB WORK March 02, 2025 4:3 0am ALF LAB WORK March 15, 2025 4: 00am ALF LAB WORK March 16, 2025 5: 00am [...] Specialty Diagnoses / Procedures Referred By Edson madison Referred To Contact Physical Therapy Diagnoses Closed fracture of distal end of left fibula, unspecified fracture morphology, initial encounter Procedures ND OFFICE/OUTPATIENT NEW HIGH MDM 60 MINUTES Tete Trevino PA [address] [facility] [address] [place] [address] Referral ID Status Reason Start Date Expiration Date Visits Requested Visits Authorized [id number] Pending Review Eval and Treat 10/14/2023 04/11/2024 99 99 Additional Source Comments Care Team (unrecognized sect ion and content) Team Status: Active Member Role Status Dates Dr. Joaquin Thomas MD Family Provider Active Laci Brewer SENIOR LEAD DEVELOPER, SENIOR LEAD DEVELOPER-C Primary Care Provider Active Team Status: Inactive Member Role Status Dates Laci Brewer SENIOR LEAD DEVELOPER, SENIOR LEAD DEVELOPER-C Primary Care Provider, Referring Provider Active Prieto Meade MD Attending Provider Active Team Status: Inactive Member Role Status Dates Laci Brewer SENIOR LEAD DEVELOPER, SENIOR LEAD DEVELOPER-C Primary Care Provider Active Dr. Shlomo Umana MD Attending Provider Active Team Status: Inactive Member Role Status Dates Laci Brewer SENIOR LEAD DEVELOPER, SENIOR LEAD DEVELOPER-C Primary Care Provider Active Balwinder MARSHALL MD Attending Provider Active Mini Lab Operator Relationship Specialty Start Date End Date Balwinder Alves MD [address] [place] [phone] PCP - General Family Medicine 10/14/23 Mini Lab Operator Relationship Specialty Start Date End Date Balwinder Alves MD [address] [facility] [address] [place] [phone] PCP - General Family Medicine 10/14/23 Mini Lab Operator Relationship Specialty Start Date End Date Balwinder Alves MD [address] [facility] [address] [place] [phone] PCP - General Family Medicine 10/14/23 Team Status: Inactive Member Role Status Dates Laci Brewer SENIOR LEAD DEVELOPER, SENIOR LEAD DEVELOPER-C Primary Care Provider Active Balwinder MARSHALL MD [...] section and content) DATE CREATED AUTHOR 07/23/2023 [facility] ([place] DATE CREATED AUTHOR AUTHOR'S ORGANIZ ATION 12/10/2023 [facility] DATE CREATED AUTHOR AUTHOR'S ORGANIZ ATION 06/17/2025 [facility] Reason for Visit (unrecogniz ed section [...] BE BASED ON THE PRIMARY CLINICAL RECORDS. [employer] provides no warranty or guarantee of the accuracy or completeness of information in this document.
[2025-06-26 09:14] LABS: Hematocrit 37.3 % (37-47); Hemoglobin 11.4 g/dL (12.0-15.0); Mean Corp Hgb Conc 30.6 g/dL (32-36); Mean Corpuscular Volume 94.7 fL (81-99); Mean Platelet Vol. 9.0 fl (6.2-12.0); Platelet Count 197 K/mm3 (150-450); RBC Distribution Width CV 14.5 % (11.6-14.6); RBC Distribution Width SD 50.1 fl (35.1-43.9); Red Blood Count 3.94 M/mm3 (4.2-5.4); White Blood Count 7.7 K/mm3 (4.4-11.0)
[2025-06-26 09:47] LABS: AST(SGOT) 12 U/L (<=31); Alanine Aminotransfer ALT/SGPT 5 U/L (<=34); Albumin, Serum 3.6 g/dL (3.4-4.8); Alkaline Phosphatase 63 U/L (35-104); Anion Gap 11 (5-15); BUN 9 mg/dL (4-19); BUN/Creat Ratio 13.0 RATIO (10-20); Bilirubin, Direct 0.12 mg/dL (0.00-0.30); Calcium,Total 9.5 mg/dL (7.6-11.0); Carbon Dioxide 29.0 mmol/L (21.0-32.0); Chloride 96 mmol/L (98-108); Globulin 2.7 g/dL (2.2-4.2); Glucose 207 mg/dL (70-99); Potassium 4.7 mmol/L (3.3-5.1)
== END ==
LOC: OLS.WCC 04:00
PROVIDERS: PCP Family Medicine; Referring Provider Family Medicine; Visit Provider Family Medicine
DX: Z79.899 Other long term (current) drug therapy (principal)
CPT/HCPCS: 80048; 80076; 85027

== ENCOUNTER → 2025-07-03 | Outpatient (REF) | payer MEDICARE, MEDICAID, SELFPAY ==
[2025-07-03 08:30] LABS: Hematocrit 35.9 % (37-47); Hemoglobin 11.2 g/dL (12.0-15.0); Mean Corp Hgb Conc 31.2 g/dL (32-36); Mean Corpuscular Volume 94.5 fL (81-99); Mean Platelet Vol. 8.9 fl (6.2-12.0); Platelet Count 165 K/mm3 (150-450); RBC Distribution Width CV 14.7 % (11.6-14.6); RBC Distribution Width SD 50.7 fl (35.1-43.9); Red Blood Count 3.80 M/mm3 (4.2-5.4); White Blood Count 7.2 K/mm3 (4.4-11.0)
[2025-07-03 08:51] LABS: AST(SGOT) 13 U/L (<=31); Alanine Aminotransfer ALT/SGPT 12 U/L (<=34); Albumin, Serum 3.4 g/dL (3.4-4.8); Alkaline Phosphatase 73 U/L (35-104); Anion Gap 10 (5-15); BUN 9 mg/dL (4-19); BUN/Creat Ratio 12.2 RATIO (10-20); Bilirubin, Direct 0.10 mg/dL (0.00-0.30); Calcium,Total 9.2 mg/dL (7.6-11.0); Carbon Dioxide 28.0 mmol/L (21.0-32.0); Chloride 101 mmol/L (98-108); Globulin 2.5 g/dL (2.2-4.2); Glucose 169 mg/dL (70-99); Potassium 4.6 mmol/L (3.3-5.1)
== END ==
LOC: OLS.WCC 05:00
PROVIDERS: PCP Family Medicine; Visit Provider Family Medicine
DX: N39.0 Urinary tract infection, site not specified (principal); E11.9 Type 2 diabetes mellitus without complications; I10 Essential (primary) hypertension; E78.6 Lipoprotein deficiency
CPT/HCPCS: 80048; 80076; 85027

== ENCOUNTER 2025-07-06 10:41 | Day surgery (SDC) | payer MEDICARE, MEDICAID, SELFPAY ==
--- NOTE | 2025-05-30 09:05 | PAT.ANESEVAL ---
Pre-Assessment Diagnosis/Proposed Procedure Planned Operative Procedure(s): RIGHT ESWL CYSTO RIGHT STENT Anesthesia History Anesthesia History - legal document assistant: Anesthesia History - legal document assistant Hx Hospitalization No 05/29/25 16:00 Any Problems With Anesthesia No 05/29/25 16:00 Cholinesterase deficiency No 05/29/25 16:00 You/Your Family Experience No 05/29/25 16:00 fever (hyperthermia) with Relationship Recent Exposure to Contagious Disease Does patient have nerve No 05/29/25 16:00 stimulator Patient instructed to have device shut off --Does patient have Pacemaker or ICD? When Was Last Pacemaker Check QUESTION #4 FULL TEXT: You/Your Family Experience fever (hyperthermia) with Anesthesia Last Oral Intake Last Oral intake: Last Oral Intake NPO since Meds taken in AM with sips of water? Meds patient instructed to take am of surgery PONV PONV - legal document assistant: PONV - legal document assistant Female Yes 05/29/25 16:00 HX of Motion Sickness No 05/29/25 16:00 HX of N/V After Surgery No 05/29/25 16:00 Non-Smoker Yes 05/29/25 16:00 Duration of Surgery greater Yes 05/29/25 16:00 than 60 minutes Number of Risk Factors 3 05/29/25 16:00 PONV Score Moderate Risk 05/29/25 16:00 Height & Weight Height & Weight: Anesthesia: Height & Weight Height 5 ft 9 in 05/17/25 10:04 Respiratory Assessment Respiratory Assessment - legal document assistant: Respiratory Tract Infection Hx - legal document assistant Hx Respiratory Tract Infection No 05/29/25 16:00 STOP Sleep Apnea STOP Sleep Apnea - legal document assistant: STOP Sleep Apnea - legal document assistant Hx Hypertension Yes 05/29/25 16:00 Hx Sleep Apnea No 05/29/25 16:00 CPAP BIPAP Do you snore loudly (louder No 05/29/25 16:00 than talking or can be heard Do you often feel tired/ No 05/29/25 16:00 fatigued/ sleepy during daytime? Has anyone observed you stop No 05/29/25 16:00 breathing during sleep? STOP Results Negative 05/29/25 16:00 QUESTION #5 FULL TEXT : Do you snore loudly (louder than talking or can be heard through closed doors)? Tobacco Use History Tobacco Use History - legal document assistant: Tobacco Use History - legal document assistant Tobacco Use Smoking Status Former smoker 05/29/25 16:00 Hx Tobacco Use No 05/29/25 16:00 Years Smoking Packs Smoked per Day Smoking Cessation Date was Yes - quit smoking within 15 05/29/25 16:00 within the last 15 years years Hx Smoking Cessation Date 10/05/13 05/29/25 16:00 Hx Smoking Cessation Counseling Hematologic Medial History Hematologic Hx - legal document assistant: Hematologic Medical Hx - engineering documentation specialist Hx of Blood Transfusion No 05/29/25 16:00 Hx of Transfusion in last 3 No 05/29/25 16:00 Months Date of Last Transfusion (if within last 3 months) Ever experience any problems No 05/29/25 16:00 with transfusion(s)? Specify any problems Hx of Preganancy in last 3 No 05/29/25 16:00 Months Nurse Filling Out Transfusion DSCHRIBER 05/29/25 16:00 & Questions: Date: 05/29/25 05/29/25 16:00 Time: 16:04 05/29/25 16:00 Patient unable to answer at this time (ie. confused, unrespo /Reproduction History /Reproductive History - legal document assistant: /Reproductive Hx- legal document assistant Hx Now No 05/29/25 16:00 Gestational Age (in weeks): EDC: Hx Hx Para Hx Section SAB No 05/29/25 16:00 PFSH Medical History (Updated 05/29/25 @ 16:12 by Lana Loo) Lives in snf Wears glasses Wears dentures Diabetes Uses wheelchair Walker as ambulation aid Arthritis Bladder disease History of IBS Former smoker Hypertension Flank pain Kidney stones ESBL (extended spectrum beta-lactamase) producing bacteria infection Hx pulmonary embolism Home Medications ?Medication ?Instructions ?Recorded ?Last Taken ?Type duloxetine 60 mg capsule,delayed 60 mg PO QHS 11/01/20 Unknown History release losartan 100 mg tablet 100 mg PO DAILY 11/01/20 Unknown History metformin 1,000 mg tablet 1,000 mg PO BID 11/01/20 Unknown History trazodone 50 mg tablet 25 mg PO QHS 11/01/20 Unknown History simvastatin 5 mg tablet 5 mg PO QHS 07/16/23 Unknown History acetaminophen 500 mg tablet 1,000 mg PO TID 05/17/25 Unknown History (Tylenol Extra Strength) ascorbic acid (vitamin C) 500 mg 500 mg PO DAILY 05/17/25 Unknown History capsule boric acid 600 mg vaginal 600 mg vaginal TUFR 05/17/25 Unknown History suppository (Azo Boric Acid) cholecalciferol (vitamin D3) 50 50 mcg PO QDAY 05/17/25 Unknown History mcg (2,000 unit) tablet colestipol 1 gram tablet 2 g PO BID 05/17/25 Unknown History d-mannose 500 mg capsule 1,000 mg PO BID 05/17/25 Unknown History diclofenac sodium 1 % topical gel 2 g topical BID 05/17/25 Unknown History gabapentin 400 mg capsule 400 mg PO TID 05/17/25 Unknown History loperamide 2 mg capsule (Imodium 2 mg PO Q6H PRN diarrhea 05/17/25 Unknown History A-D) methenamine hippurate 1 gram tablet 1 g PO BID 05/17/25 Unknown History oxybutynin chloride 5 mg tablet 5 mg PO QHS 05/17/25 Unknown History oxycodone 5 mg tablet 5 mg PO Q6H PRN pain 05/17/25 Unknown History dulaglutide 3 mg/0.5 mL 3 mg subcut TU 05/29/25 Unknown History subcutaneous pen injector ([facility]) Allergy/AdvReac Type Severity Reaction Status Date / Time adhesive tape Allergy Mild blister Verified 05/17/25 10:03 amoxicillin (From Augmentin) Allergy Mild Rash Verified 05/17/25 10:03 ciprofloxacin (From Cipro) Allergy Mild Rash Verified 05/17/25 10:03 clavulanic acid (From Allergy Mild Rash Verified 05/17/25 10:03 Augmentin) latex Allergy Mild Other Verified 05/17/25 10:03 acetaminophen (From Allergy Unknown PT UNSURE Verified 05/29/25 15:43 Percogesic) OF REACTION aspirin (ASA) Allergy Unknown PT UNSURE Verified 05/29/25 15:43 OF REACTION cephalexin (From Keflex) Allergy Unknown PT UNSURE Verified 05/29/25 15:43 OF REACTION dapagliflozin (From Farxiga) Allergy Unknown PT UNSURE Verified 05/29/25 15:43 OF REACTION diphenhydramine (From Allergy Unknown PT UNSURE Verified 05/29/25 15:43 Percogesic) OF REACTION ibuprofen Allergy Unknown PT UNSURE Verified 05/29/25 15:43 OF REACTION phenyltoloxamine (From Allergy Unknown PT UNSURE Verified 05/29/25 15:43 Percogesic) OF REACTION vancomycin AdvReac Mild red man Verified 05/17/25 10:03 syndrome sulfamethoxazole (From AdvReac Shortness Verified 05/17/25 10:03 Bactrim) of breath trimethoprim (From Bactrim) AdvReac Shortness Verified 05/17/25 10:03 of breath Surgical History (Updated 05/29/25 @ 16:12 by Lana Loo) Hx of brain surgery Hx of hysterectomy Hx of total knee arthroplasty Hx of total knee arthroplasty Social History Smoking Status: Former smoker Audit: Pertinent Findings Pertinent Findings EKG Perinent findings: May 17, 2025. Sinus rhythm. Right bundle branch block. Prolonged QT interval. Recommendation Anesthesia Recommendation Anesthesia recommendation: OPTIMIZED for anesthesia
[2025-07-06] VITALS (10 sets, daily range): BP systolic 158–183; BP diastolic 74–94; PULSE 71–85; RESP 16–18; TEMP 36.3–36.7; O2SAT 93–99; BMI 41.3
[2025-07-06] MEDS: Lactated Ringers 1,000 ML 15 ML IV ×2 (11:46→14:45)
--- NOTE | 2025-07-06 12:11 | PCM.HP.BLA ---
History and Physical Date of Admission: 07/06/25 Date of Service: 06/30/25 MR#: [id number] Acct: [id number] Name: GUMARO BUSTAMANTE Rep #: [id number] : 1945 Provider: Dr. Dorota James MD Age/Sex: 80/F Location: [facility] [place] Status: Signed Intake Vital Signs 05/17/2510:04 06/30/2510:21 Height 5 ft 9 in 5 ft 9 in Weight: 278 lb BMI 41.0 BP 124/78 H Pulse 78 Temp 97.9 F Intake Visit Reasons: Pre-op Urine C&S/sign consent Chief Complaint: pre-op Accompanied by: Caregiver Is patient in pain?: No Allergies adhesive tape Allergy (Mild, Verified 07/06/25 11:21) blister amoxicillin (From Augmentin) Allergy (Mild, Verified 07/06/25 11:21) Rash ciprofloxacin (From Cipro) Allergy (Mild, Verified 07/06/25 11:21) Rash clavulanic acid (From Augmentin) Allergy (Mild, Verified 07/06/25 11:21) Rash latex Allergy (Mild, Verified 07/06/25 11:21) Other aspirin (ASA) Allergy (Unknown, Verified 07/06/25 11:21) PT UNSURE OF REACTION cephalexin (From Keflex) Allergy (Unknown, Verified 07/06/25 11:21) PT UNSURE OF REACTION dapagliflozin (From Farxiga) Allergy (Unknown, Verified 07/06/25 11:21) PT UNSURE OF REACTION diphenhydramine (From Percogesic) Allergy (Unknown, Verified 07/06/25 11:21) PT UNSURE OF REACTION ibuprofen Allergy (Unknown, Verified 07/06/25 11:21) PT UNSURE OF REACTION phenyltoloxamine (From Percogesic) Allergy (Unknown, Verified 07/06/25 11:21) PT UNSURE OF REACTION vancomycin Adverse Reaction (Mild, Verified 07/06/25 11:21) red man syndrome sulfamethoxazole (From Bactrim) Adverse Reaction (Verified 07/06/25 11:21) Shortness of breath trimethoprim (From Bactrim) Adverse Reaction (Verified 07/06/25 11:21) Shortness of breath Medications ?Medication ?Instructions ?Recorded ?Confirmed ?Type duloxetine 60 mg capsule,delayed 60 mg PO QHS 11/01/20 07/06/25 History release losartan 100 mg tablet 100 mg PO DAILY 11/01/20 07/06/25 History metformin 1,000 mg tablet 1,000 mg PO BID 11/01/20 07/06/25 History trazodone 50 mg tablet 25 mg PO QHS 11/01/20 07/06/25 History simvastatin 5 mg tablet 5 mg PO QHS 07/16/23 07/06/25 History acetaminophen 500 mg tablet 1,000 mg PO TID 05/17/25 07/06/25 History (Tylenol Extra Strength) ascorbic acid (vitamin C) 500 mg 500 mg PO DAILY 05/17/25 07/06/25 History capsule boric acid 600 mg vaginal 600 mg vaginal TUFR 05/17/25 07/06/25 History suppository (Azo Boric Acid) cholecalciferol (vitamin D3) 50 50 mcg PO QDAY 05/17/25 07/06/25 History mcg (2,000 unit) tablet colestipol 1 gram tablet 2 g PO BID 05/17/25 07/06/25 History d-mannose 500 mg capsule 1,000 mg PO BID 05/17/25 07/06/25 History diclofenac sodium 1 % topical gel 2 g topical BID 05/17/25 06/30/25 History gabapentin 400 mg capsule 400 mg PO TID 05/17/25 07/06/25 History loperamide 2 mg capsule (Imodium 2 mg PO Q6H PRN diarrhea 05/17/25 07/06/25 History A-D) methenamine hippurate 1 gram tablet 1 g PO BID 05/17/25 07/06/25 History oxybutynin chloride 5 mg tablet 5 mg PO QHS 05/17/25 07/06/25 History oxycodone 5 mg tablet 5 mg PO Q6H PRN pain 05/17/25 07/06/25 History dulaglutide 3 mg/0.5 mL 3 mg subcut TU 05/29/25 07/06/25 History subcutaneous pen injector (Trulicity) Have you fallen in the past year?: No Nurse's Note: Patient doing well today. [facility] Medical History H/O echocardiogram History of ESBL E. coli infection Lives in alf Wears glasses Wears dentures Diabetes Uses wheelchair Walker as ambulation aid Arthritis Bladder disease History of IBS Former smoker Hypertension Flank pain Kidney stones ESBL (extended spectrum beta-lactamase) producing bacteria infection Hx pulmonary embolism Surgical History Hx of brain surgery Hx of hysterectomy Hx of total knee arthroplasty Hx of total knee arthroplasty Social History Smoking Status: Former smoker HPI HPI Urology Chief Complaint: pre-op Details: GUMARO BUSTAMANTE, is a 80 F. The patient is here for preoperative history and physical prior to cystoscopy with right ureteral stent insertion, right renal extracorporal shockwave lithotripsy. There are no new symptoms since the last visit. The procedure, recovery and expectations were explained. The risks, benefits and alternatives were discussed, including but not limited to, the risks of anesthesia, bleeding, infection, injury, pain and the need for further intervention. We have discussed the risk of exposure to and/or potential harm posed by the COVID-19 virus with having a surgery/procedure at this time. A joint decision was made at this time to proceed with the scheduled surgery/procedure as indicated on the consent form. ROS Const Constitutional: No chills, fatigue, fever(s), headache(s), night sweats, weakness, weight change, abnormal sleep pattern or change in appetite Eyes Eyes: No change in vision ENT ENT: No headache(s) or dry mouth Resp Respiratory: No cough, chest congestion, shortness of breath or wheezing Cardio Cardiology: Positive for other (No chest pain.); No shortness of breath, irregular heart rhythm or lightheadedness Gastro GI: Positive for other (No nausea.); No abdominal pain, change in bowel habits, constipation, diarrhea or vomiting Genitourinary-Female: Positive for side pain Musc Musculoskeletal: No abnormal gait (In a wheelchair) Skin Skin: No yellowing of the eye, lesions, itchy eyes, rash or skin ulcer Neuro Neurology: No abnormal gait (In a wheelchair), confusion, dizziness, weakness, headache(s) or memory loss Psych Psychiatric: No abnormal sleep pattern, No change in appetite, No confusion and No memory loss Endo Endocrine: No fatigue, increased thirst/drinking or weight change Aller/Imm Allergy/Immunologic: No itchy eyes or wheezing Kenney/Lymp Hematologic/Lymphatic: No easy bleeding, easy bruising or enlarged lymph nodes Exam Const General: cooperative, healthy appearing, comfortable and no acute distress [facility] Head: normocephalic and atraumatic Ears: hearing grossly normal bilaterally and external ears normal Nose: external nose normal Eyes General: appearance normal, both eyes and all related structures Neck Neck: normal visual inspection and trachea midline Chest Chest palpation & inspection: normal inspection of the chest Resp Effort & Inspection: normal respiratory effort, able to speak in complete sentences and symmetric chest movement Cardio Rate: regular rate GI Inspection: normal to inspection Palpation: soft and nontender General: CVA tenderness (Mild) on the right Skin General: no rashes or lesions noted Neuro General: patient alert, patient awake, patient oriented x3 and CN's II-XI intact bilaterally Extrem General: normal to inspection Psych Appearance: grossly normal and well kempt Mental Status: mental status grossly normal Results POC UA Auto w/o Microscopy Office Urine Color YELLOW Last Edit by Siena Lr on 06/30/25 10:36 Office Urine Clarity ? Last Edit by Siena Lr on 06/30/25 10:36 Office Urine Glucose Negative Last Edit by Siena Lr on 06/30/25 10:36 Office Urine Ketones Negative Last Edit by Siena Lr on 06/30/25 10:36 Office Urine Bilirubin Negative Last Edit by Siena Lr on 06/30/25 10:36 Office Urine Urobilinogen 0.2 mg/dL Last Edit by Siena Lr on 06/30/25 10:36 Off Ur Spec Lander 1.010 Last Edit by Siena Lr on 06/30/25 10:36 Office Urine pH 5.5 Last Edit by Siena Lr on 06/30/25 10:36 Office Urine Protein Positive Last Edit by Siena Lr on 06/30/25 10:36 Office Urine Blood Trace Last Edit by Siena Lr on 06/30/25 10:36 25 Siena Lr 06/30/25 10:36 Office Urine Blood Hemolyzed ? Last Edit by Siena Lr on 06/30/25 10:36 Office Urine Nitrate Negative Last Edit by Siena Lr on 06/30/25 10:36 Off Ur Leukocytes Positive Last Edit by Siena Lr on 06/30/25 10:36 500 Siena Lr 06/30/25 10:36 Coding Level of Care Code Off vis,est,level 4 Diagnoses Staghorn calculus N20.0 UTI (urinary tract infection) N39.0 Flank pain R10.9 HTN (hypertension) I10 Uncontrolled type 2 diabetes mellitus E11.65 Assessment and Plan Assessment and Plan (1) Staghorn calculus: Status: Acute (2) UTI (urinary tract infection): Status: Acute (3) Flank pain: Status: Acute (4) HTN (hypertension): Status: Chronic (5) Uncontrolled type 2 diabetes mellitus: Status: Acute Orders: Orders POC UA Auto w/o Microscopy 06/30/25 N39.0 - Urinary tract infection, site not specified Plan Urine culture Continue antibiotics per infectious disease Cardiac optimization has been obtained Proceed with surgical intervention as scheduled Clinical Quality Measures Falls Risk Screening/Assistive Devices Have you fallen in the past year?: No 07/06/25 1216 <Electronically signed by Dorota James MD> Date Dorota James MD
--- NOTE | 2025-07-06 12:17 | DCINST_ITS ---
Discharge Instructions Diet Discharge Diet: No restrictions Activity Discharge Activity: Return to Normal Activity Dressing / Incision Call your doctor if your incision/area has: Sudden Increased Bleeding Call your doctor if you observe: Fever of 101 or Higher, Inability to urinate and Inability to have a bowel movement Follow Up Care Please Follow Up With: Dorota James MD Test Results: Test results from this visit will be discussed in further detail at your follow- up appointment, if applicable. Discharge Plan Admission Attending Provider: Dorota James Primary Care Provider: Haresh Damon Instructions Print Language: [place] Islander Discharge Orders/Prescriptions Prescriptions: New phenazopyridine 200 mg tablet 200 mg PO TID PRN (Reason: pain) Qty: 30 3RF tramadol 50 mg tablet 50 mg PO Q8H PRN (Reason: pain) 3 Days Qty: 10 0RF Continued simvastatin 5 mg tablet 5 mg PO QHS acetaminophen [Tylenol Extra Strength] 500 mg tablet 1,000 mg PO TID ascorbic acid (vitamin C) 500 mg capsule 500 mg PO DAILY Azo Boric Acid 600 mg suppository 600 mg vaginal TUFR colestipol 1 gram tablet 2 g PO BID d-mannose 500 mg capsule 1,000 mg PO BID diclofenac sodium 1 % gel 2 g topical BID gabapentin 400 mg capsule 400 mg PO TID loperamide [Imodium A-D] 2 mg capsule 2 mg PO Q6H PRN (Reason: diarrhea) methenamine hippurate 1 gram tablet 1 g PO BID oxybutynin chloride 5 mg tablet 5 mg PO QHS oxycodone 5 mg tablet 5 mg PO Q6H PRN (Reason: pain) cholecalciferol (vitamin D3) 50 mcg (2,000 unit) tablet 50 mcg PO QDAY trazodone 50 MG tablet 25 mg PO QHS metformin 1,000 MG tablet 1,000 mg PO BID losartan 100 MG tablet 100 mg PO DAILY duloxetine 60 MG capsule,delayed release(DR/EC) 60 mg PO QHS Trulicity 3 mg/0.5 mL pen injector 3 mg subcut TU Referrals / Follow Up: Haresh Damon MD [Primary Care Provider, Family Practice] Disposition Disposition (needs filled in before D/C Order can be placed): Home, Self Care
--- NOTE | 2025-07-06 12:24 | OP.PCM_ITS ---
Operative Report (Standard) Operative Information Date of Procedure: 07/06/25 Pre-Operative Diagnosis: Right renal calculus, urinary tract infection Post-Operative Diagnosis: Same Surgery/Procedure Performed: Cystoscopy with right ureteral stent insertion, right renal extracorporeal shockwave lithotripsy engineering project manager: No Type of Anesthesia: General RN Documented Start/Stop Times: Operation Date: 07/06/25 12:35 Case Time Into Pre-Op 07/06/25 10:52 Anesthesia Start 07/06/25 12:55 Into Room 07/06/25 12:55 Out of Pre-Op 07/06/25 12:57 Procedure Start 07/06/25 13:12 Procedure Start Time: 13:12 Procedure Stop Time: 13:58 Select all DRAINS/GRAFTS/IMPLANTS that apply: Drains Drain details: 6 Ivorian by 28 cm JJ stent Estimated Blood Loss: <5cc Specimen collected: No Description of surgery: The patient is an 80-year-old female with recurrent resistant urinary tract infections who was found to have a large right renal calculus. She now presents for surgical intervention. Informed consent was obtained. The patient was taken to the operating room and placed on the operating room table. Anesthesia monitored the head, neck, airway, IV access and vital signs throughout the case. Once anesthesia was appropriate administered, she was placed into dorsolithotomy position and was prepped and draped in usual sterile fashion. The cystoscope was inserted through the urethra under direct visualization into the urinary bladder. Cystoscopy revealed no evidence of mass, erythema, ulceration or foreign body. The right ureteral orifice was intubated with a 0.035 Glidewire which advanced into the renal pelvis is seen on fluoroscopy beyond the level of the stone. A 6 Ivorian 28 cm JJ stent was placed over the wire with good positioning in the renal pelvis as well as the urinary bladder. Her bladder was then emptied and the cystoscope was removed. She was repositioned on the table for better access to her large right stone. 3000 shocks were applied to the stone which appeared to be fragmented at the conclusion of the case. She was then awakened and taken to the recovery room in good condition. There were no complications during this procedure. Surgical Findings: Large right renal stone Complications Complications: No Admit VTE Documentation VTE Present on Admission: Yes VTE Mechan Device Prophylaxis: SCD's VTE Pharm Prophylaxis ordered?: No Reason prophylaxis not ordered: Treatment Not Indicated
--- NOTE | 2025-07-06 12:43 | PRE.ANES_ITS ---
ASA Classification* ASA Classification ASA Classification: 3 Assessment & Plan Anesthesia* Anesthesia Assessment Anesthesia Assessment: Discussed sedation and/or anesthesia options, risks, benefits, and alternatives with patient/parents/legal guardian/POA. Questions invited. The patient/parents/legal guardian/POA seems to understand and agrees to proceed with anesthesia plan. Reviewed the physical assessment, medical history, allergy history and patient home medications list prior to surgery/procedure/anesthetic and documented any changes. Performed airway and anesthesia risk assessments. Anesthesia Type Anesthesia Type: General History Source History Obtained from:: Patient and Chart Anesthesia Focused Assessment* Temperature: 98.1 F Pulse Rate: 76 Blood Pressure: 158/76 Respiratory Rate: 18 Pulse Ox: 97 Oxygen Delivery Method: Room Air Airway Assessment Mouth opens: >3 cm Mallampati Score: IV Teeth Condition: Dentures (Patient has full upper dentures. They are out.) and Partial (Patient has lower partial dentures which are out. Rest of the teeth are tight.) Neck Range of motion (ROM): Limited ROM (Somewhat Decreased) Labs Anesthesia Preop lab: CBC WBC, (4.4-11.0) 7.2 K/mm3 07/03/25, 07:00 RBC, (4.2-5.4) 3.80 M/mm3 L 07/03/25, 07:00 Hgb, (12.0-15.0) 11.2 g/dL L 07/03/25, 07:00 Hct, (37-47) 35.9 % L 07/03/25, 07:00 Plt Count, (150-450) 165 K/mm3 07/03/25, 07:00 CHEMISTRY Potassium, (3.3-5.1) 4.6 mmol/L 07/03/25, 07:00 Sodium, (133-145) 139 mmol/L 07/03/25, 07:00 BUN, (4-19) 9 mg/dL 07/03/25, 07:00 Creatinine, (0.70-1.20) 0.70 mg/dL 07/03/25, 07:00 Glucose, (70-99) 169 mg/dL H 07/03/25, 07:00 POC Glucose, (74-106) 133 mg/dL H Today, 11:33 COAG Pre-Assessment Diagnosis/Proposed Procedure Planned Operative Procedure(s): RIGHT ESWL CYSTO RIGHT STENT Anesthesia History Anesthesia History - project management instructor: Anesthesia History - project management instructor Hx Hospitalization No 06/28/25 08:30 Any Problems With Anesthesia No 06/28/25 08:30 Cholinesterase deficiency No 06/28/25 08:30 You/Your Family Experience No 06/28/25 08:30 fever (hyperthermia) with Relationship Recent Exposure to Contagious No 07/06/25 11:24 Disease Does patient have nerve No 06/28/25 08:30 stimulator Patient instructed to have device shut off --Does patient have Pacemaker No 07/06/25 11:24 or ICD? When Was Last Pacemaker Check QUESTION #4 FULL TEXT: You/Your Family Experience fever (hyperthermia) with Anesthesia Last Oral Intake Last Oral intake: Last Oral Intake NPO since 07:00 07/06/25 11:24 Meds taken in AM with sips of Yes 07/06/25 11:24 water? Meds patient instructed to Tylenol, colestipol, 07/06/25 11:24 take am of surgery gabapentin, losartan Any additional information?: Yes Meds taken in AM with sips of water?: Yes PONV PONV - project management instructor: PONV - project management instructor Female Yes 06/28/25 08:30 HX of Motion Sickness No 06/28/25 08:30 HX of N/V After Surgery No 06/28/25 08:30 Non-Smoker Yes 06/28/25 08:30 Duration of Surgery greater Yes 06/28/25 08:30 than 60 minutes Number of Risk Factors 3 06/28/25 08:30 PONV Score Moderate Risk 06/28/25 08:30 Height & Weight Height & Weight: Anesthesia: Height & Weight Height 5 ft 9 in 07/06/25 11:24 Weight: 127 kg 07/06/25 11:24 Body Mass Index (BMI) 41.3 07/06/25 11:24 Respiratory Assessment Respiratory Assessment - project management instructor: Respiratory Tract Infection Hx - project management instructor Hx Respiratory Tract Infection No 06/28/25 08:30 STOP Sleep Apnea STOP Sleep Apnea - project management instructor: STOP Sleep Apnea - project management instructor Hx Hypertension Yes 06/28/25 08:30 Hx Sleep Apnea No 06/28/25 08:30 CPAP BIPAP Do you snore loudly (louder No 06/28/25 08:30 than talking or can be heard Do you often feel tired/ No 06/28/25 08:30 fatigued/ sleepy during daytime? Has anyone observed you stop No 06/28/25 08:30 breathing during sleep? STOP Results Negative 06/28/25 08:30 QUESTION #5 FULL TEXT : Do you snore loudly (louder than talking or can be heard through closed doors)? Tobacco Use History Tobacco Use History - project management instructor: Tobacco Use History - project management instructor Tobacco Use Smoking Status Former smoker 06/28/25 08:30 Hx Tobacco Use No 06/28/25 08:30 Years Smoking Packs Smoked per Day Smoking Cessation Date was Yes - quit smoking within 15 06/28/25 08:30 within the last 15 years years Hx Smoking Cessation Date 10/05/13 06/28/25 08:30 Hx Smoking Cessation Counseling Hematologic Medial History Hematologic Hx - project management instructor: Hematologic Medical Hx - author Hx of Blood Transfusion No 06/28/25 08:30 Hx of Transfusion in last 3 No 06/28/25 08:30 Months Date of Last Transfusion (if within last 3 months) Ever experience any problems No 06/28/25 08:30 with transfusion(s)? Specify any problems Hx of Preganancy in last 3 No 06/28/25 08:30 Months Nurse Filling Out Transfusion [facility] 06/28/25 08:30 & Questions: Date: 06/28/25 06/28/25 08:30 Time: 08:30 06/28/25 08:30 Patient unable to answer at this time (ie. confused, unrespo /Reproduction History /Reproductive History - project management instructor: /Reproductive Hx- project management instructor Hx Now No 06/28/25 08:30 Gestational Age (in weeks): EDC: Hx Hx Para Hx Section SAB No 06/28/25 08:30 Active Medications Active Medications: Current Medications Generic Name Dose Route Start Last Admin Trade Name Freq PRN Reason Stop Dose Admin Lactated Ringer's 1,000 mls @ 15 mls/hr 07/06/25 11:00 07/06/25 11:46 IV 15 mls/hr .Q48H ELENA Administration Sodium Chloride 10 - 40 ml 07/06/25 11:36 0.9% Saline Lock 10 Ml Syringe IV UD PRN Open End PICC Flush Sodium Chloride 10 - 40 ml 07/06/25 11:36 0.9 % Nacl (Sterile) Posiflush 10 Ml IV UD PRN Port access or dressing change [facility] Medical History H/O echocardiogram History of ESBL E. coli infection Lives in shelter Wears glasses Wears dentures Diabetes Uses wheelchair Walker as ambulation aid Arthritis Bladder disease History of IBS Former smoker Hypertension Flank pain Kidney stones ESBL (extended spectrum beta-lactamase) producing bacteria infection Hx pulmonary embolism Home Medications ?Medication ?Instructions ?Recorded ?Last Taken ?Type duloxetine 60 mg capsule,delayed 60 mg PO QHS 11/01/20 07/05/25 History release losartan 100 mg tablet 100 mg PO DAILY 11/01/2011/29 History metformin 1,000 mg tablet 1,000 mg PO BID 11/01/2010/29 History trazodone 50 mg tablet 25 mg PO QHS 11/01/20 History simvastatin 5 mg tablet 5 mg PO QHS 07/16/23 5 History acetaminophen 500 mg tablet 1,000 mg PO TID 05/17/25 1 History (Tylenol Extra Strength) ascorbic acid (vitamin C) 500 mg 500 mg PO DAILY 05/1707/05/25 History capsule boric acid 600 mg vaginal 600 mg vaginal TUFR 05/17/25 07/05/25 History suppository (Azo Boric Acid) cholecalciferol (vitamin D3) 50 50 mcg PO QDAY 5 07/05/25 History mcg (2,000 unit) tablet colestipol 1 gram tablet 2 g PO BID 05/17/25 07/06/25 History d-mannose 500 mg capsule 1,000 mg PO BID 05/17/2510/29 History diclofenac sodium 1 % topical gel 2 g topical BID 05/05 12/27 Unknown History gabapentin 400 mg capsule 400 mg PO TID 05/17/2507/06 History loperamide 2 mg capsule (Imodium 2 mg PO Q6H PRN diarr hea 05/17/25 Unknown History A-D) methenamine hippurate 1 gram tablet 1 g PO BID 5 07/05/25 History oxybutynin chloride 5 mg tablet 5 mg PO QHS 05/17/25 1 History oxycodone 5 mg tablet 5 mg PO Q6H PRN pain 5 07/05/25 History dulaglutide 3 mg/0.5 mL 3 mg subcut TU 05/29/2506/06 History subcutaneous pen injector (Trulicity) phenazopyridine 200 mg tablet 200 mg PO TID PRN pain # 30 tabs 07/06/25 Unknown Rx tramadol 50 mg tablet 50 mg PO Q8H PRN pain 3 days #10 07/06/25 Unknown Rx tabs Allergy/AdvReac Type Severity Reaction Status Date / Time adhesive tape Allergy Mild blister Verified 07/06/25 11:21 amoxicillin (From Augmentin) Allergy Mild Rash Verified 07/06/25 11:21 ciprofloxacin (From Cipro) Allergy Mild Rash Verified 07/06/25 11:21 clavulanic acid (From Allergy Mild Rash Verified 07/06/25 11:21 Augmentin) latex Allergy Mild Other Verified 07/06/25 11:21 aspirin (ASA) Allergy Unknown PT UNSURE Verified 07/06/25 11:21 OF REACTION cephalexin (From Keflex) Allergy Unknown PT UNSURE Verified 07/06/25 11:21 OF REACTION dapagliflozin (From Farxiga) Allergy Unknown PT UNSURE Verified 07/06/25 11:21 OF REACTION diphenhydramine (From Allergy Unknown PT UNSURE Verified 07/06/25 11:21 Percogesic) OF REACTION ibuprofen Allergy Unknown PT UNSURE Verified 07/06/25 11:21 OF REACTION phenyltoloxamine (From Allergy Unknown PT UNSURE Verified 07/06/25 11:21 Percogesic) OF REACTION vancomycin AdvReac Mild red man Verified 07/06/25 11:21 syndrome sulfamethoxazole (From AdvReac Shortness Verified 07/06/25 11:21 Bactrim) of breath trimethoprim (From Bactrim) AdvReac Shortness Verified 07/06/25 11:21 of breath Surgical History Hx of brain surgery Hx of hysterectomy Hx of total knee arthroplasty Hx of total knee arthroplasty Social History Smoking Status: Former smoker Review of Systems (Anesthesia) ROS Narrative System reviewed and no additional complaints, except as documented.
--- NOTE | 2025-07-06 14:19 | PCM.POST.ANE ---
Anesthesia: Postop Eval I Current Vital Signs Temperature: 97.3 F Pulse Rate: 74 Blood Pressure: 167/83 Respiratory Rate: 16 Pulse Ox: 94 Oxygen Delivery Method: Room Air Assessment Airway patent: Yes Spontaneous unlabored respirations: Yes Mental status: Awake nausea: No Vomiting: No Anesthesia Complication: No Fluid Hydration Crystalloid volume administer (ml): 600 Total IV fluid infused: 600 Progress Note Anesthesia document: Postop Eval 1 completed: Yes
[2025-07-06] MEDS: 0.9 % NaCl (Sterile) Posiflush 10 mL IV (16:06)
--- NOTE | 2025-07-06 16:16 | PCM.POSTANE2 ---
Anesthesia Postop Eval I Sum Postop Eval Completion status Anesthesia document: Postop Eval 1 completed: Yes Anesthesia Postop Eval I Summary Anesthesia Postop Eval I Summary: Anesthesia Postop Eval I: Assessment Summary Airway patent Yes 07/06/25 14:20 [email or web address] Spontaneous unlabored Yes 07/06/25 14:20 [email or web address] respirations Mental status Awake 07/06/25 14:20 [email or web address] nausea No 07/06/25 14:20 [email or web address] Vomiting No 07/06/25 14:20 [email or web address] Anesthesia Postop Eval I: Fluid Summary Crystalloid volume administer 600 07/06/25 14:20 [email or web address] (ml) Colloids volume administered ( ml) Blood Product volume administered (ml) Total IV fluid infused 600 07/06/25 14:20 [email or web address] Anesthesia Postop Eval I: Summary Notes Anesthesia Complication No 07/06/25 14:20 [email or web address] Anesthesia Complication Comment: Post-operative progress note Anesthesia: Postop Eval II Evaluation Mental status: Awake Pain Level: 2 nausea: No Vomiting: No
== END 2025-07-06 16:16 | disposition home or self-care (01) ==
LOC: SDC 10:42 → AC 10:45
PROVIDERS: PCP Family Medicine; Referring Provider Urology; Visit Provider Urology
PROC: (CPT 50590; principal; 2025-07-06 12:25)
DX: N20.0 Calculus of kidney (principal); E11.9 Type 2 diabetes mellitus without complications; N39.0 Urinary tract infection, site not specified; I10 Essential (primary) hypertension; Z79.84 Long term (current) use of oral hypoglycemic drugs; Z87.891 Personal history of nicotine dependence; Z79.899 Other long term (current) drug therapy; Z79.85 Long-term (current) use of injectable non-insulin antidiabetic drugs
CPT/HCPCS: 50590; 52332; 00873; 82962; C1769; A4216; C2617; J2405

== ENCOUNTER → 2025-07-10 | Outpatient (REF) | payer MEDICARE, MEDICAID, SELFPAY ==
[2025-07-10 07:38] LABS: Hematocrit 35.7 % (37-47); Hemoglobin 11.1 g/dL (12.0-15.0); Mean Corp Hgb Conc 31.1 g/dL (32-36); Mean Corpuscular Volume 93.9 fL (81-99); Mean Platelet Vol. 9.0 fl (6.2-12.0); Platelet Count 164 K/mm3 (150-450); RBC Distribution Width CV 14.6 % (11.6-14.6); RBC Distribution Width SD 49.8 fl (35.1-43.9); Red Blood Count 3.80 M/mm3 (4.2-5.4); White Blood Count 7.1 K/mm3 (4.4-11.0)
[2025-07-10 07:50] LABS: AST(SGOT) 9 U/L (<=31); Alanine Aminotransfer ALT/SGPT < 5 U/L (<=34); Albumin, Serum 3.4 g/dL (3.4-4.8); Alkaline Phosphatase 58 U/L (35-104); Anion Gap 9 (5-15); BUN 11 mg/dL (4-19); BUN/Creat Ratio 15.3 RATIO (10-20); Bilirubin, Direct 0.14 mg/dL (0.00-0.30); Calcium,Total 9.1 mg/dL (7.6-11.0); Carbon Dioxide 27.6 mmol/L (21.0-32.0); Chloride 101 mmol/L (98-108); Globulin 2.5 g/dL (2.2-4.2); Glucose 184 mg/dL (70-99); Potassium 4.5 mmol/L (3.3-5.1)
== END ==
LOC: OLS.WCC 06:15
PROVIDERS: PCP Family Medicine; Referring Provider Family Medicine; Visit Provider Family Medicine
DX: Z79.899 Other long term (current) drug therapy (principal)
CPT/HCPCS: 80048; 80076; 85027

== ENCOUNTER → 2025-07-24 05:00 | Outpatient (REF) | payer MEDICARE, MEDICAID, SELFPAY ==
--- OUTSIDE RECORDS SUMMARY | 2025-07-24 04:10 | XMS RPT_ITS | CCD ---
Author Organization [facility] Inform ion [facility] Care Team Providers Care Healthcare Economics Consultant Name Role Phone OSMAN PERDUE, LACI Primary Care Physician [phone] OSMAN PERDUE, LACI Primary Care Unavailabl e OSMAN PERDUE, LACI Attending Unavailabl e OSMAN ENVELOPE FOLDER-QUARRY PLUG AND FEATHER DRILLER, LACI Primary Care Unavailabl e OSMAN ENVELOPE FOLDER-QUARRY PLUG AND FEATHER DRILLER, LACI Attending Unavailabl e JULY PERDUE, ROHAN Romero Attending Unavaila ble OSMAN PERDUE, LACI Primary Care UnavailJOSE FRANCISCO Matos DO Referring Unavailable JOSE ROBERTO DO Consulting Unavailable JULY BENTON-RODRIGO, ROHAN Romero Admitting Unavaila ble Unavailable Primary Care Provider Unavailluisa Brewer SPECIAL EVENTS DIRECTOR, SPECIAL EVENTS DIRECTOR-C Laci Primary Care Provider [phone] Osman SPECIAL EVENTS DIRECTOR, SPECIAL EVENTS DIRECTOR-C Laci Referring Provider [id number] MD Prieto Meade Attending Provider Dr. Shlomo Umana Attending Provider Balwinder Alves MD Primary Care Provider [phone] ZANDER UREÑA Referring Unavailable TETE TREVINO Attending [...] Unavailable Dr. Balwinder Alves MD Attending Provider [phone] Balwinder Alves MD Primary Care Provider UnavailBalwinder Christensen MD Attending Provider Unavailable Balwinder Alves MD Primary Care Provider Unavailastrid Alves MD, Balwinder Dominguez Attending Provider Unavailable [...] Provider Dr. Balwinder Alves MD Referring Provider Nelson OLVERA, Balwinder Dominguez Primary Care Physician Unavail able Nelson OLVERA, Balwinder Dominguez Attending Physician Unavailluisa Alves MD, Balwinder Dominguez Referring Provider Unavailable Dr. Dorota James MD Attending Physician Nelson OLVERA, Dr. Balwinder Dominguez Primary Care Physician Erika OLVERA, Dr. Raya Nurse Practitioner Alves OLS, Balwinder K Primary Care Unavailable Alves OLS, Balwinder K Attending Unavailable Dorota James Attending Unavailable Alves, Balwinder K Primary Care Unavailable Alves, Balwinder K Referring Unavailable Alves, Balwinder K Primary Care Unavailable Dorota James Referring Unavailable Dorota James Attending Unavailable Dorota James Consulting Unavailable Alves OLS, Balwinder K Primary Care Unavailable Alves OLS, Balwinder K Referring Unavailable Dorota James Attending Unavailable Dorota James Referring Unavailable Dorota James [...] K Primary Care Unavailable Alves, Balwinder K Primary Care Unavailable Alves OLS, Balwinder K Attending Unavailable Alves OLS, Balwinder K Referring Unavailable Dorota James Referring Unavailable BreenesDorota blanco Attending Unavailable Alves, Balwinder K Primary Care [...] Primary Care Unavailable Dorota James Attending Unavailable Erika, Dorota Referring Unavailable Allergies Allergy Classification Reported Allergen(s) Allergy Type Date of Onset Reaction(s) Facility (4 sources) Acetaminophen / oxyCODONE; Translations: [acetaminophen-oxyco done] Drug Allergy [facility] (7 sources) Adhesive Tape Allergy to substance 07-05-20 REDNESS & BLISTERS [facility] (4 sources) Amoxicillin / Clavulanate; Translations: [amoxicillin-clavula kellie] Drug Allergy [facility] (6 sources) Aspirin; Translations: [aspirin] Drug Allergy 06-28-20 25 Unknown, PT UNSURE OF REACTION [facility] (20 sources) Ciprofloxacin; Translations: [ciprofloxacin] Drug Allergy 07-05-20 Rash [facility] (4 sources) dapagliflozin; Translations: [dapagliflozin] Drug Allergy [facility] (9 sources) Ibuprofen; Translations: [ibuprofen] Drug Allergy 07-05-20 23 PT UNSURE OF REACTION [facility] (20 sources) Latex; Translations: [latex] Drug allergy 07-05-20 23 BLISTERS & REDNESS, blisters, Other [facility] Comment on above: BLISTERS (20 sources) Sulfamethoxazole; Translations: [sulfamethoxazole] Drug Allergy 11-01-19 21 Hives, Shortness of breath [facility] (8 sources) Cephalexin; Translations: [cephalexin] Drug Allergy 07-05-20 23 Hives [facility] Comment on above: Immediate rash / hiv es; patient seen in ER after last administration of Keflex (17 sources) Adhesive Tape; Translations: [adhesive tape] Allergy to substance 07-16-20 23 blister [facility] (19 sources) Trimethoprim Drug Allergy 11-01-19 21 Shortness of breath [facility] (3 sources) augmenten Allergy to substance 07-16-20 [facility] (4 sources) Aluminum aspirin Drug Allergy 07-05-20 23 Unknown [facility] (4 sources) dapagliflozin Drug Allergy 07-05-20 23 [facility] (4 sources) Amoxicillin-Pot Clavulanate Drug Allergy 07-05-20 23 [facility] (4 sources) Diphenhydramine-Acet aminophen Drug Allergy 07-05-20 23 [facility] (3 sources) Acetaminophen / oxyCODONE Drug Allergy 10-14-19 24 [facility] (3 sources) Sulfamethoxazole Allergy to substance 11-01-19 21 [facility] (3 sources) Wound Dressing Adhesive Drug Allergy 07-16-20 23 [facility] (13 sources) Amoxicillin Drug Allergy 02-06-20 24 Rash [facility] (13 sources) Clavulanate Drug Allergy 02-06-20 24 [facility] (13 sources) Vancomycin Drug Allergy 02-06-20 24 red man syndrome [facility] (1 source) Acetaminophen Drug Allergy 06-28-20 25 PT UNSURE OF REACTION [facility] (2 sources) dapagliflozin Drug Allergy 06-28-20 25 PT UNSURE OF REACTION [facility] (2 sources) diphenhydrAMINE Drug Allergy 06-28-20 25 PT UNSURE OF REACTION [facility] (2 sources) phenyltoloxamine Drug Allergy 06-28-20 PT UNSURE OF REACTION [facility] (1 source) Acetaminophen Drug Allergy 06-28-20 [facility] (1 source) Amoxicillin Drug Allergy 07-06-20 [facility] (1 source) Aspirin Drug Allergy 07-06-20 [facility] (1 source) Cephalexin Drug Allergy 07-06-20 [facility] (1 source) Ciprofloxacin Drug Allergy 07-06-20 [facility] (1 source) Clavulanate Drug Allergy 07-06-20 [facility] (1 source) dapagliflozin Drug Allergy 07-06-20 [facility] (1 source) diphenhydrAMINE Drug Allergy 07-06-20 [facility] (1 source) Ibuprofen Drug Allergy 07-06-20 [facility] (1 source) phenyltoloxamine Drug Allergy 07-06-20 [facility] (1 source) Sulfamethoxazole Drug Allergy 07-06-20 [facility] (1 source) Trimethoprim Drug Allergy 07-06-20 [facility] (1 source) Vancomycin Drug Allergy 07-06-20 [facility] Medications Current Medications [...] mL, 0 Refill(s), Pharmacy: [facility]/pharmacy #[id number], Type 2 diabetes mellitus, 168.91, cm, 02/18/23 11:25:00 EDT, Height, kg, 02/18/23 11:25:00 EDT, Dosing Weight Start Date: 05/19/23 Stop Date: 08/17/23 Status: Ordered acetaminophen 500 mg oral tablet (15 sources) Start: 05-17-2025 take 2 tablets by mouth three times daily Start: 05-17-2025 take 1 tablet by ann th every six hours as needed Acetaminophen (Tylenol Extra Strength) 500 mg tablet Active 500 mg PO EVERY 6 HOURS as needed May 17, 2025 12:00am Start: 07-22-[address] 500 MG tablet [...] 1:00am ascorbic acid 500 mg oral capsule (4 sources) Vitamin C Start: 05-17-2025 take 1 capsule by mo [facility] once daily Boric Acid (Azo Boric Acid) 600 mg suppository (4 sources) Start: 05-17-2025 Start: 05-17-2025 Boric Acid (Az o Boric [...] tab(s), 3 Refill(s), Pharmacy: [facility]/pharmacy #[id number], 167.6, cm, 11/20/22 11:29:00 EST, Height, kg, [...] Status: Ordered cholecalciferol 0.05 mg oral tablet (12 sources) Vitamin D Start: 05-17-2025 take 1 tablet by ann th once daily Start: 08-05-2023 cholecalcifero l (Vitamin D-3) 50 [...] Active colestipol hydrochloride 1000 mg oral tablet (4 sources) Bile Acid Sequestrant Start: 05-17-2025 D-Mannose (4 sources) Start: 05-17-2025 take 1 capsule by mouth twice daily Start: 05-17-2025 take 1 capsule by mouth once D -Mannose 500 mg capsule Active mg PO May 17, 2025 12:00am diclofenac sodium 0.01 mg/mg topical gel (4 sources) Nonsteroidal Anti-inflammatory Drug Start: 05-17-2025 apply 2 g topically twice daily Start: 05-17-2025 Diclofenac Sod ium 1 % gel Active TOPICAL May 17, 2025 12:00am Dulaglutide (2 sources) GLP-1 Receptor Agonist Start: 05-29-2025 DULoxetine 60 mg delayed release oral capsule (20 sources) Serotonin and Norepinephrine Reuptake Inhibitor Start: 11-01-2020 take 1 capsule by mouth at bedtime furosemide 20 mg oral tablet (1 source) Loop Diuretic Start: 04-23-2021 furosemide 20 mg oral tablet Dose : 20 mg = 1 tab(s), Oral, qDay, PRN Swelling, # 30 tab(s), 0 Refill(s) Start Date: 04/23/21 Status: Ordered gabapentin 400 mg oral capsule (20 sources) Anti-epileptic Agent Start: 05-17-2025 take 1 capsule by mouth three times daily Start: 06-10-2023 End: 09-08-2023 gabapentin 400 mg [...] E11.9, # 4 EA, 3 Refill(s), [id number], 167.6, cm, 04/23/21 11:30:00 EDT, Height, kg, 04/23/21 11:30:00 EDT, Dosing Weight Start Date: 05/14/21 Status: Ordered loperamide hydrochloride 2 mg oral capsule (4 sources) Opioid Agonist Start: 05-17-2025 take 1 capsule by mouth every six hours as needed for diarrhea losartan potassium 100 mg oral tablet (20 sources) Angiotensin 2 Receptor Ysabel Start: 02-18-2023 losartan 100 mg oral tablet Dose : 100 mg = 1 tab(s), Oral, Daily, # 90 tab(s), 1 Refill(s), [id number], Hypertension, 168.91, cm, 02/18/23 11:25:00 EDT, Height, kg, 02/18/23 11:25:00 EDT, Dosing Weight Start Date: 02/18/23 Status: Ordered Start: 02-25-2022 losartan 100 m g oral tablet Dose : 100 mg = 1 tab(s), Oral, Daily, # 90 tab(s), 3 Refill(s), [id number], Hypertension, 167.6, cm, 02/04/22 11:02:00 EDT, Height, kg, 02/04/22 11:02:00 EDT, Dosing Weight Start Date: 02/25/22 Status: Ordered Start: 11-01-2020 losartan 100 m g oral tablet Dose : 100 mg = 1 tab(s), Oral, Daily, In absence of PCP, # 90 tab(s), 1 Refill(s), Pharmacy: [facility]/pharmacy #[id number], Hypertension, 166.37, cm, 07/24/21 11:31:00 EDT, Height, kg, 07/24/21 11:31:00 EDT, Dosing Weight Start Date: 07/24/21 Status: Ordered Start: 11-01-2020 Losartan 100 M G tablet Active DAILY November 01, 2020 1:00am metFORMIN hydrochloride 1000 mg oral tablet (20 sources) Biguanide Start: 07-24-2020 take 1 tablet by mouth twice daily methenamine hippurate 1000 mg oral tablet (4 sources) Start: 05-17-2025 naproxen 250 mg oral tablet (1 source) [...] Ordered oxybutynin chloride 5 mg oral tablet (4 sources) Cholinergic Muscarinic Antagonist Start: 05-17-2025 take 1 tablet by mouth at bedtime oxyCODONE hydrochloride 5 mg oral tablet (4 sources) Opioid Agonist Start: 05-17-2025 take 1 tablet by mouth every six hours as needed for pain Start: 05-17-2025 take 1 tablet by ann th three times daily as needed Oxycodone 5 [...] EDT, Dosi... Start Date: 04/23/21 Status: Ordered phenazopyridine hydrochloride 200 mg oral tablet (1 source) Start: 07-06-2025 take 1 tablet by mouth three times daily as needed for pain 0.25 mg, 0.5 mg dose 1.5 ml semaglutide 1.34 mg/ml pen injector (1 source) Start: 11-20-2022 End: 02-18-2023 Ozempic 2 mg/1.5 mL (0.25 mg or 0.5 mg dose) subcutaneous solution 1 mg, Subcutaneous, qWeek, 3 boxes, 12 needles rotate injection sites, # 9 mL, 0 Refill(s), Pharmacy: [facility]/pharmacy #[id number], Diabetes Diabetes mellitus, 167.6, cm, 11/20/22 11:29:00 EST, Height, kg, 11/20/22 11:29:00 EST, Dosing Weight Start Date: 11/20/22 Stop Date: 02/18/23 Status: Ordered simvastatin 5 mg oral tablet (19 sources) HMG-CoA Reductase Inhibitor Start: 07-16-2023 take 1 tablet by mouth at bedtime Start: 08-20-2022 simvastatin 5 mg oral tablet [...] Dosing Weight Start Date: 08/28/21 Status: Ordered traMADol hydrochloride 50 mg oral tablet (1 source) Opioid Agonist Start: 07-06-2025 take 1 tablet by mouth every eight hours as needed for pain traZODone hydrochloride 100 mg oral tablet (20 sources) Serotonin Reuptake Inhibitor Start: 02-18-2023 traZODone 100 mg oral tablet Dose : 100 mg = 1 tab(s), Oral, qHS, # 90 tab(s), 3 Refill(s), [id number], Insomnia, 168.91, cm, 02/18/23 11:25:00 [...] # 90 tab(s), 1 Refill(s), [id number], Insomnia, 166.37, cm, 07/24/21 11:31:00 EDT, Height, kg, 07/24/21 11:31:00 EDT, Dosing Weight Start Date: 07/24/21 Status: Ordered Start: 04-23-2021 traZODone 100 mg oral tablet Dose : 100 mg = 1 tab(s), Oral, qHS, # 90 tab(s), 1 Refill(s), [id number], Insomnia, 167.6, cm, 04/23/21 11:30:00 EDT, Height, kg, 04/23/21 11:30:00 EDT, Dosing Weight Start Date: 04/23/21 Status: Ordered Start: 11-01-2020 Start: 11-01-2020 Trazodone 50 M G tablet [...] # 90 cap(s), 3 Refill(s), [id number], 166.37, cm, 07/24/21 11:31:00 EDT, [...] CENTER/pharmacy #[id number], Vitamin D deficiency, 167.6, cm, 08/19/22 12:13:00 EST, Height, kg, 08/19/22 12:13:00 EST, Dosing Weight Start Date: 08/20/22 Status: Ordered Completed/Discontinued Medications Medication Drug Class(es) Dates Sig (Normalized) Sig (Original) acetaminophen 325 mg / HYDROcodone bitartrate 5 mg oral tablet (17 sources) Opioid Agonist Start: 07-16-2023 End: 05-17-2025 Hydrocodone-Acetami nophen 5-325 mg tablet Discontinued 1 {tbl} PO AT BEDTIME as needed 0 July 16, 2023 12:00am May 17, 2025 9:58am Start: 07-16-2023 take 1 tablet by ann th at bedtime Hydrocodone-Acetaminophen Active 1 TABLE T PO AT BEDTIME July 16, 2023 12:00am Start: 07-03-2023 End: 07-06-2023 Delphia 325- 5 mg oral tablet Dose = [...] Status: Ordered fenofibrate 145 mg oral tablet (17 sources) Peroxisome Proliferator Receptor alpha Agonist Start: 11-01-2020 End: 07-16-2023 take 1 tablet by mouth once daily Fenofibrate Nanocrystallized 145 MG tablet Discontinued 145 mg PO DAILY November 01, 2020 1:00am July 16, 2023 10:59am menthol 0.0044 mg/mg / zinc oxide 0.206 mg/mg topical ointment (4 sources) Start: 05-17-2025 End: 05-29-2025 Menthol-Zinc Oxide (Calmoseptine) 0.44-20.6 % ointment Discontinued 1 NMA TOPICAL 4 to 6 times per day as needed May 17, 2025 12:00am May 29, 2025 3:48pm Start: 05-17-2025 Menthol-Zinc O xide (Calmoseptine) 0.44-20.6 % ointment Active 1 NMA TOPICAL 4 to 6 times per day as needed May 17, 2025 12:00am SITagliptin 100 mg oral tablet (19 sources) Dipeptidyl Peptidase 4 Inhibitor Start: 11-01-2020 End: 05-29-2025 take 1 tablet by mouth once daily Sitagliptin Phosphate 100 MG tablet Discontinued 100 mg PO DAILY November 01, 2020 1:00am May 29, 2025 3:50pm sodium chloride 0.111 meq/ml nasal spray (4 sources) Start: 05-17-2025 End: 05-29-2025 Sodium Chloride 0.65 % aerosol,spray Discontinued 2 NMA INTRANASAL Q4H May 17, 2025 12:00am May 29, 2025 3:50pm while awake triamcinolone acetonide 1 mg/ml topical cream (2 [...] Da te Episodic/Chronic Calculus of urinary tract (13 sources) Kidney stone; Translations: [Calculus of kidney] Onset: 07-12-2025 05-17-2025 Episodic Diabetes mellitus with complications (20 sources) Neuropathy due to diabetes mellitus; Translations: [Type 2 diabetes mellitus with diabetic neuropathy, unspecified] Onset: 06-30-2023 02-06-2022 Chronic Comment on above: bowen 2 Diabetes mellitus without complication (10 sources) Diabetes mellitus; Translations: [Type 2 diabetes mellitus without complication] Onset: 06-30-2023 02-22-2020 Chronic Disorders of lipid metabolism (20 sources) Hyperlipidemia; Translations: [Hyperlipidemia, unspecified] 05-10-2019 Chronic E Codes: Fall (16 sources) Fall; Translations: [Unspecified fall, initial encounter] [...] Chronic Inflammatory diseases of female pelvic organs (13 sources) Abscess of labia; Translations: [Abscess of vulva] 02-06-2024 Episodic Mood disorders (7 sources) Depressive disorder; Translations: [Major depressive disorder] Onset: 06-30-2023 11-15-2019 Chronic Neoplasms of unspecified nature or uncertain behavior (4 sources) Neoplasm of uncertain behavior of neck 05-15-2020 Episodic Osteoarthritis (4 sources) Osteoarthritis of multiple joints 11-15-2019 Chronic Other aftercare (2 sources) Other manager terminal (current) drug therapy; Translations: [Other manager terminal (current) drug therapy] Onset: 07-10-2025 Episodic Other bone disease and musculoskeletal deformities (4 sources) Osteopenia 01-22-2021 Episodic Other bone disease and musculoskeletal deformities (1 source) Other specified disorders of bone density and structure, unspecified site; Translations: [Other specified disorders of bone density and structure, unspecified site] Onset: 07-14-2025 Episodic Other nervous system disorders (4 sources) Disorder of the peripheral nervous system 01-10-2016 Chronic Other nervous system disorders (1 source) Polyneuropathy, unspecified; Translations: [Polyneuropathy, unspecified] Onset: 07-01-2025 Chronic Other non-epithelial cancer of skin (4 sources) Basal cell carcinoma of neck 05-17-2020 Episodic Other non-traumatic joint disorders (16 sources) Ankle pain; Translations: [Pain in left [...] Chronic Other nutritional; endocrine; and metabolic disorders (3 sources) Morbid (severe) obesity due to excess calories; Translations: [Morbid (severe) obesity due to excess calories] Onset: 06-30-2023 Chronic Pulmonary heart disease (2 sources) Pulmonary embolism 12-27-2015 Episodic Residual codes; unclassified (4 sources) Insomnia 11-15-2019 Episodic Skin and subcutaneous tissue infections (16 sources) Cellulitis of leg, excluding foot; Translations: [Cellulitis of left lower limb] 11-01-2020 Episodic Transient cerebral ischemia (2 sources) Transient cerebral ischemia 04-06-2019 Chronic Urinary tract infections (14 sources) Urinary tract infectious disease; Translations: [Urinary tract infection, site not specified] Onset: 07-01-2023 Episodic Past or Other Problems Problem Classification Problem Date Documented Da te Episodic/Chronic Abdominal pain (8 sources) Flank pain; Translations: [Unspecified abdominal pain] Onset: 01-12-2025 05-17-2025 Episodic Results Test Name Value Interpretation Reference Range Facility Basic Metabolic Profile (BMP )on 07-10-2025 BUN/CRE 15.3 RATIO Normal 10-20 [facility] Comment on above: Performed By: #### L 500.2500, L100.0100 #### [facility] [address] [place], [address] Calcium [Mass/Vol] 9.1 mg/dL Normal 7.6-11.0 [facility] Comment on above: Performed By: #### L 500.2500, L100.0100 #### [facility] [address] [place], [address] Chloride [Moles/Vol] 101 mmol/L Normal 98-108 [facility] Comment on above: Performed By: #### L 500.2500, L100.0100 #### [facility] [address] [place], [address] CO2 [Moles/Vol] 27.6 mmol/L Normal 21.0-32.0 [facility] Comment on above: Performed By: #### L 500.2500, L100.0100 #### [facility] [address] [place], [address] Creatinine [Mass/Vol] 0.72 mg/dL Normal 0.70-1.20 [facility] Comment on above: Performed By: #### L 500.2500, L100.0100 #### [facility] [address] [place], [address] GAP 9 Normal 5-15 [facility] Comment on above: Performed By: #### L 500.2500, L100.0100 #### [facility] [address] [place], [address] GFR/1.73 sq M.predicted among non-blacks MDRD (S/P/Bld) [Vol rate/Area] 84 mL/min/{1.73_m2} Normal >60 [facility] Comment on above: Result Comment: mL/m in/1.73m2 CKD-EPI Creatinine Equation (2020) Performed By: #### L 500.2500, L100.0100 #### [facility] [address] [place], [address] Glucose [Mass/Vol] 184 mg/dL High 70-99 [facility] Comment on above: Performed By: #### L 500.2500, L100.0100 #### [facility] [address] [place], [address] Potassium [Moles/Vol] 4.5 mmol/L Normal 3.3-5.1 [facility] Comment on above: Performed By: #### L 500.2500, L100.0100 #### [facility] [address] [place], [address] Sodium [Moles/Vol] 138 mmol/L Normal 133-145 [facility] Comment on above: Performed By: #### L 500.2500, L100.0100 #### [facility] [address] [place], [address] Urea nitrogen [Mass/Vol] 11 mg/dL Normal 4-19 [facility] Comment on above: Performed By: #### L 500.2500, L100.0100 #### [facility] [address] [place], [address] CBC-Complete Blood Cnt No Di ffon 07-10-2025 Erythrocyte distribution width (RBC) [Ratio] 14.6 % Normal 11.6-14.6 [facility] Comment on above: Performed By: #### L 500.2500, L100.0100 #### [facility] [address] [place], [address] Hematocrit (Bld) [Volume fraction] 35.7 % Low 37-47 [facility] Comment on above: Performed By: #### L 500.2500, L100.0100 #### [facility] [address] [place], [address] Hemoglobin (Bld) [Mass/Vol] 11.1 g/dL Low 12.0-15.0 [facility] Comment on above: Performed By: #### L 500.2500, L100.0100 #### [facility] [address] [place], [address] MCH (RBC) [Entitic mass] 29.2 pg Normal 27.0-32.0 [facility] Comment on above: Performed By: #### L 500.2500, L100.0100 #### [facility] [address] [place], [address] MCHC (RBC) [Mass/Vol] 31.1 g/dL Low 32-36 [facility] Comment on above: Performed By: #### L 500.2500, L100.0100 #### [facility] [address] [place], [address] MCV (RBC) [Entitic vol] 93.9 fL Normal 81-99 [facility] Comment on above: Performed By: #### L 500.2500, L100.0100 #### [facility] [address] [place], [address] Platelet mean volume (Bld) [Entitic vol] 9.0 fL Normal 6.2-12.0 [facility] Comment on above: Performed By: #### L 500.2500, L100.0100 #### [facility] [address] [place], [address] Platelets (Bld) [#/Vol] 164 10*3/uL Normal 150-450 [facility] Comment on above: Performed By: #### L 500.2500, L100.0100 #### [facility] [address] [place], [address] RBC (Bld) [#/Vol] 3.80 10*6/uL Low 4.2-5.4 [facility] Comment on above: Performed By: #### L 500.2500, L100.0100 #### [facility] [address] [place], [address] RDW SD 49.8 fl High 35.1-43.9 [facility] Comment on above: Performed By: #### L 500.2500, L100.0100 #### [facility] [address] [place], [address] WBC (Bld) [#/Vol] 7.1 10*3/uL Normal 4.4-11.0 [facility] Comment on above: Performed By: #### L 500.2500, L100.0100 #### [facility] [address] [place], [address] Liver Profileon 07-10-2025 Albumin [Mass/Vol] 3.4 g/dL Normal 3.4-4.8 [facility] Comment on above: Performed By: #### L 500.2500, L100.0100 #### [facility] [facility] [address] [place], [address] ALK PHOS 58 U/L Normal 35-104 [facility] Comment on above: Performed By: #### L 500.2500, L100.0100 #### [facility] [address] [place], [address] ALT [Catalytic activity/Vol] U/L Normal <=34 [facility] Comment on above: Performed By: #### L 500.2500, L100.0100 #### [facility] [address] [place], [address] AST [Catalytic activity/Vol] 9 U/L Normal <=31 [facility] Comment on above: Performed By: #### L 500.2500, L100.0100 #### [facility] [address] [place], [address] Bilirubin [Mass/Vol] 0.30 mg/dL Normal 0.00-1.30 [facility] Comment on above: Performed By: #### L 500.2500, L100.0100 #### [facility] [address] [place], [address] Bilirubin.direct [Mass/Vol] 0.14 mg/dL Normal 0.00-0.30 [facility] Comment on above: Performed By: #### L 500.2500, L100.0100 #### [facility] [address] [place], [address] Globulin (S) [Mass/Vol] 2.5 g/dL Normal 2.2-4.2 [facility] Comment on above: Performed By: #### L 500.2500, L100.0100 #### [facility] [address] [place], [address] T PROT 5.9 g/dL Normal 5.9-8.4 [facility] Comment on above: Performed By: #### L 500.2500, L100.0100 #### [facility] [address] [place], [address] Bedside Glucoseon 07-06-2025 FINGERSTICK GLU 133 mg/dL High 74-106 [facility] Comment on above: Result Comment: ALEX BLUE OF PATIENT CARE PER NURSING PROTOCOL Performed By: #### L 500.2500, L100.0100 #### [facility] [address] [place], [address] Discharge Instructionon Discharge Instruction [facility] Medical Records Department [address] [place] [address] Instructions for Home/Discharge Instructions 07/06/25 1217 MR#: [id number] Acct: [id number] Name: GUMARO HUFF Rep #: [id number] : 1945 80 From: Dorota James MD PCP: Dr. Balwinder Alves MD Status:REG [facility] [place] Discharge Instructions Diet Discharge Diet: No restrictions Activity Discharge Activity: Return to Normal Activity Dressing / Incision Call your doctor if your incision/area has: Sudden Increased Bleeding Call your doctor if you observe: Fever of 101 or Higher, Inability to urinate and Inability to have a bowel movement Follow Up Care Please Follow Up With: Dorota James MD Test Results: Test results from this visit will be discussed in further detail at your follow-up appointment, if applicable. Discharge Plan Admission Attending Provider: Dorota James Primary Care Provider: Balwinder Alves Instructions Print Language: Sammarinese Discharge Orders/Prescriptions Prescriptions: New phenazopyridine 200 mg tablet 200 mg PO TID PRN (Reason: pain) Qty: 30 3RF tramadol 50 mg tablet 50 mg PO Q8H PRN (Reason: pain) 3 Days Qty: 10 0RF Continued simvastatin 5 mg tablet 5 mg PO QHS acetaminophen [Tylenol Extra Strength] 500 mg tablet 1,000 mg PO TID ascorbic acid (vitamin C) 500 mg capsule 500 mg PO DAILY Azo Boric Acid 600 mg suppository 600 mg vaginal TUFR colestipol 1 gram tablet 2 g PO BID d-mannose 500 mg capsule 1,000 mg PO BID diclofenac sodium 1 % gel 2 g topical BID gabapentin 400 mg capsule 400 mg PO TID loperamide [Imodium A-D] 2 mg capsule 2 mg PO Q6H PRN (Reason: diarrhea) methenamine hippurate 1 gram tablet 1 g PO BID oxybutynin chloride 5 mg tablet 5 mg PO QHS oxycodone 5 mg tablet 5 mg PO Q6H PRN (Reason: pain) cholecalciferol (vitamin D3) 50 mcg (2,000 unit) tablet 50 mcg PO QDAY trazodone 50 MG tablet 25 mg PO QHS metformin 1,000 MG tablet 1,000 mg PO BID losartan 100 MG tablet 100 mg PO DAILY duloxetine 60 MG capsule,delayed release(DR/EC) 60 mg PO QHS Trulicity 3 mg/0.5 mL pen injector 3 mg subcut TU Referrals / Follow Up: Balwinder Alves MD [Primary Care Provider, Family Practice] Disposition Disposition (needs filled in before D/C Order can be placed): Home, Self Care 07/06/25 1224 Dorota James MD CC: Dr. Balwinder Alves MD Signed [facility] deOrdered By: Dorota James on 07-06-2025 Glucose [Mass/Vol] 133 mg/dL High 74-106 [facility] Comment on above: MANAGEMENT OF PATIEN T CARE PER NURSING PROTOCOL MR/POSTOP.ANEon 07-06-2025 MR/POSTOP.[facility] Medical Records Department [address] [place] [address] Anesthesia Postop Eval I 07/06/25 1419 MR#: [id number] Acct: [id number] Name: ROBBYGUMARO Rep #: [id number] : 1945 80 From: Gerry Brown PCP: Dr. Balwinder Alves MD Status:REG SD Y Race: C Location: [place] [address] Anesthesia: Postop Eval I Current Vital Signs Temperature: 97.3 F Pulse Rate: 74 Blood Pressure: 167/83 Respiratory Rate: 16 Pulse Ox: 94 Oxygen Delivery Method: Room Air Assessment Airway patent: Yes Spontaneous unlabored respirations: Yes Mental status: Awake nausea: No Vomiting: No Anesthesia Complication: No Fluid Hydration Crystalloid volume administer (ml): 600 Total IV fluid infused: 600 Progress Note Anesthesia document: Postop Eval 1 completed: Yes 07/06/25 1420 Date Gerry Lee Signature: Date CC: Signed [facility] [id number] 07-06-2025 MR/POSTOPAN2 [facility] Medical Records Department [address] [place] [address] Anesthesia Postop Eval II 07/06/25 1616 MR#: [id number] Acct: [id number] Name: GUMARO HUFF Rep #: [id number] : 1945 80 From: Arcenio King BENCH MACHINE OPERATOR PCP: Dr. Balwinder Alves MD Status:REG SDC Y Race: C Location: [place] [address] Anesthesia Postop Eval I Sum Postop Eval Completion status Anesthesia document: Postop Eval 1 completed: Yes Anesthesia Postop Eval I Summary Anesthesia Postop Eval I Summary: Anesthesia Postop Eval I: Assessment Summary Airway patent Yes 07/06/25 14:20 [email or web address] Spontaneous unlabored Yes 07/06/25 14:20 [email or web address] respirations Mental status Awake 07/06/25 14:20 [email or web address] nausea No 07/06/25 14:20 [email or web address] Vomiting No 07/06/25 14:20 [email or web address] Anesthesia Postop Eval I: Fluid Summary Crystalloid volume administer 600 07/06/25 14:20 [email or web address] (ml) Colloids volume administered ( ml) Blood Product volume administered (ml) Total IV fluid infused 600 07/06/25 14:20 [email or web address] Anesthesia Postop Eval I: Summary Notes Anesthesia Complication No 07/06/25 14:20 [email or web address] Anesthesia Complication Comment: Post-operative progress note Anesthesia: Postop Eval II Evaluation Mental status: Awake Pain Level: 2 nausea: No Vomiting: No 07/06/25 1616 Date Arcenio King BENCH MACHINE OPERATOR Cosigner Signature: Date CC: Signed Normal [facility] Operative Reporton Operative Report [facility] Medical Records Department [address] [place] [address] Operative Report 07/06/25 1224 MR#: [id number] Acct: [id number] Name: GUMARO HUFF Rep #: [id number] : 1945 80 From: Dorota James MD PCP: Dr. Balwinder Alves MD Status:REG [facility] [place] Location: [place] [address] Operative Report (Standard) Operative Information Date of Procedure: 07/06/25 Pre-Operative Diagnosis: Right renal calculus, urinary tract infection Post-Operative Diagnosis: Same Surgery/Procedure Performed: Cystoscopy with right ureteral stent insertion, right renal extracorporeal shockwave lithotripsy broom builder: No Type of Anesthesia: General RN Documented Start/Stop Times: Operation Date: 07/06/25 12:35 Case Time Into Pre-Op 07/06/25 10:52 Anesthesia Start 07/06/25 12:55 Into Room 07/06/25 12:55 Out of Pre-Op 07/06/25 12:57 Procedure Start 07/06/25 13:12 Procedure Start Time: 13:12 Procedure Stop Time: 13:58 Select all DRAINS/GRAFTS/IMPLANTS that apply: Drains Drain details: 6 Serbian by 28 cm JJ stent Estimated Blood Loss: <5cc Specimen collected: No Description of surgery: The patient is an 80-year-old female with recurrent resistant urinary tract infections who was found to have a large right renal calculus. She now presents for surgical intervention. Informed consent was obtained. The patient was taken to the operating room and placed on the operating room table. Anesthesia monitored the head, neck, airway, IV access and vital signs throughout the case. Once anesthesia was appropriate administered, she was placed into dorsolithotomy position and was prepped and draped in usual sterile fashion. The cystoscope was inserted through the urethra under direct visualization into the urinary bladder. Cystoscopy revealed no evidence of mass, erythema, ulceration or foreign body. The right ureteral orifice was intubated with a 0.035 Glidewire which advanced into the renal pelvis is seen on fluoroscopy beyond the level of the stone. A 6 Serbian 28 cm JJ stent was placed over the wire with good positioning in the renal pelvis as well as the urinary bladder. Her bladder was then emptied and the cystoscope was removed. She was repositioned on the table for better access to her large right stone. 3000 shocks were applied to the stone which appeared to be fragmented at the conclusion of the case. She was then awakened and taken to the recovery room in good condition. There were no complications during this procedure. Surgical Findings: Large right renal stone Complications Complications: No Admit VTE Documentation VTE Present on Admission: Yes VTE Mechan Device Prophylaxis: SCD's VTE Pharm Prophylaxis ordered?: No Reason prophylaxis not ordered: Treatment Not Indicated 07/06/25 1404 Cosigner Signature (if applicable): CC: Dr. Dorota James MD; Dr. Balwinder Alves MD Signed Normal [facility] Anion gap in Serum or Plasma Ordered By: Balwinder Alves on 07-03-2025 Anion gap [Moles/Vol] 10 mmol/L 02-16 [facility] Automated blood erythrocyte countOrdered By: Balwinder Alves on 07-03-2025 RBC (Bld) [#/Vol] 3.80 10*6/uL Low 4.2-5.4 [facility] Comment on above: Order Comment: 102.2 Performed By: #### L 500.2500, L500.3400, L100.0500 #### [facility] [address] [place], [address] Automated blood hematocrit ( percentage)Ordered By: Balwinder Alves on 07-03-2025 Hematocrit (Bld) [Volume fraction] 35.9 % Low 37-47 [facility] Comment on above: Order Comment: 102.2 Performed By: #### L 500.2500, L500.3400, L100.0500 #### [facility] [address] [place], [address] BUN/creatinine ratioOrdered By: Balwinder Alves on 07-03-2025 Urea nitrogen/Creatinine [Mass ratio] 12.2 mg/mg 07-24 [facility] Basic Metabolic Profile (BMP )on 07-03-2025 BUN/CRE 12.2 RATIO Normal 07-24 [facility] Comment on above: Order Comment: 102.2 Performed By: #### L 500.2500, L500.3400, L100.0500 #### [facility] [address] [place], [address] GAP 10 Normal 02-16 [facility] Comment on above: Order Comment: 102.2 Performed By: #### L 500.2500, L500.3400, L100.0500 #### [facility] [address] [place], [address] Potassium [Moles/Vol] 4.6 mmol/L Normal 3.3-5.1 [facility] Comment on above: Order Comment: 102.2 Performed By: #### L 500.2500, L500.3400, L100.0500 #### [facility] [address] [place], [address] Bilirubin directOrdered By: Balwinder Alves on 07-03-2025 Bilirubin.direct [Mass/Vol] 0.10 mg/dL Normal 0.00-0.30 [facility] Comment on above: Order Comment: 102.2 Performed By: #### L 500.2500, L500.3400, L100.0500 #### [facility] [address] [place], [address] Bilirubin, totalOrdered By: Balwinder Alves on 07-03-2025 Bilirubin [Mass/Vol] 0.24 mg/dL Normal 0.00-1.30 [facility] Comment on above: Order Comment: 102.2 Performed By: #### L 500.2500, L500.3400, L100.0500 #### [facility] [address] [place], [address] CBC-Complete Blood Cnt No Di ffon 07-03-2025 RDW SD 50.7 fl High 35.1-43.9 [facility] Comment on above: Order Comment: 102.2 Performed By: #### L 500.2500, L500.3400, L100.0500 #### [facility] [address] [place], [address] Carbon dioxide, total [Moles /volume] in Central venous bloodOrdered By: Balwinder Alves on 07-03-2025 CO2 [Moles/Vol] 28.0 mmol/L Normal 21.0-32.0 [facility] Comment on above: Order Comment: 102.2 Performed By: #### L 500.2500, L500.3400, L100.0500 #### [facility] [address] [place], [address] Chloride assayOrdered By: Jen Alves on 07-03-2025 Chloride [Moles/Vol] 101 mmol/L Normal 98-108 [facility] Comment on above: Order Comment: 102.2 Performed By: #### L 500.2500, L500.3400, L100.0500 #### [facility] [address] [place], [address] Erythrocyte distribution wid th ratioOrdered By: Balwinder Alves on 07-03-2025 Erythrocyte distribution width (RBC) [Ratio] 14.7 % High 11.6-14.6 [facility] Comment on above: Order Comment: 102.2 Performed By: #### L 500.2500, L500.3400, L100.0500 #### [facility] [address] [place], [address] Erythrocyte distribution wid th standard deviationOrdered By: Balwinder Alves on 07-03-2025 Erythrocyte distribution width (RBC) [Ratio] 50.7 fl High 35.1-43.9 [facility] Glomerular filtration rate ( GFR) estimation/1.73 sq m using serum, plasma, or whole bOrdered By: Balwinder Alves on 07-03-2025 GFR/1.73 sq M.predicted among non-blacks MDRD (S/P/Bld) [Vol rate/Area] 86 mL/min/{1.73_m2} Normal >60 [facility] Comment on above: mL/min/1.73m2 CKD-EP I Creatinine Equation (2020) Order Comment: 102.2 Result Comment: mL/m in/1.73m2 CKD-EPI Creatinine Equation (2020) Performed By: #### L 500.2500, L500.3400, L100.0500 #### [facility] [address] [place], [address] Hemoglobin measurementOrdere d By: Balwinder Alves on 07-03-2025 Hemoglobin (Bld) [Mass/Vol] 11.2 g/dL Low 12.0-15.0 [facility] Comment on above: Order Comment: 102.2 Performed By: #### L 500.2500, L500.3400, L100.0500 #### [facility] [address] [place], [address] Liver Profileon 07-03-2025 ALK PHOS 73 U/L Normal 35-104 [facility] Comment on above: Order Comment: 102.2 Performed By: #### L 500.2500, L500.3400, L100.0500 #### [facility] [address] [place], [address] T PROT 5.9 g/dL Normal 5.9-8.4 [facility] Comment on above: Order Comment: 102.2 Performed By: #### L 500.2500, L500.3400, L100.0500 #### [facility] [address] [place], [address] Liver ProfileOrdered By: Javed Alves on 07-03-2025 AST [Catalytic activity/Vol] 13 U/L Normal <=31 [facility] Comment on above: Order Comment: 102.2 Performed By: #### L 500.2500, L500.3400, L100.0500 #### [facility] [address] [place], [address] MCV (mean corpuscular volume ) determinationOrdered By: Balwinder Alves on 07-03-2025 MCV (RBC) [Entitic vol] 94.5 fL Normal 81-99 [facility] Comment on above: Order Comment: 102.2 Performed By: #### L 500.2500, L500.3400, L100.0500 #### [facility] [address] [place], [address] Mean corpuscular hemoglobin (MCH) determinationOrdered By: Balwinder Alves on 07-03-2025 MCH (RBC) [Entitic mass] 29.5 pg Normal 27.0-32.0 [facility] Comment on above: Order Comment: 102.2 Performed By: #### L 500.2500, L500.3400, L100.0500 #### [facility] [address] [place], [address] Mean corpuscular hemoglobin concentration (MCHC) determinationOrdered By: Balwinder Alves on 07-03-2025 MCHC (RBC) [Mass/Vol] 31.2 g/dL Low 32-36 [facility] Comment on above: Order Comment: 102.2 Performed By: #### L 500.2500, L500.3400, L100.0500 #### [facility] [address] [place], [address] Mean platelet volume determi nationOrdered By: Balwinder Alves on 07-03-2025 Platelet mean volume (Bld) [Entitic vol] 8.9 fL Normal 6.2-12.0 [facility] Comment on above: Order Comment: 102.2 Performed By: #### L 500.2500, L500.3400, L100.0500 #### [facility] [address] [place], [address] Platelet countOrdered By: Jen Alves on 07-03-2025 Platelets (Bld) [#/Vol] 165 10*3/uL Normal 150-450 [facility] Comment on above: Order Comment: 102.2 Performed By: #### L 500.2500, L500.3400, L100.0500 #### [facility] [address] [place], [address] Potassium measurement (mass/ volume)Ordered By: Balwinder Alves on 07-03-2025 Potassium (Unsp spec) [Mass/Vol] 4.6 mmol/L 3.3-5.1 [facility] Serum creatinine measurement (mass/volume)Ordered By: Balwinder Alves on 07-03-2025 Creatinine [Mass/Vol] 0.70 mg/dL Normal 0.70-1.20 [facility] Comment on above: Order Comment: 102.2 Performed By: #### L 500.2500, L500.3400, L100.0500 #### [facility] [address] [place], [address] Serum globulin measurementOr dered By: Balwinder Alves on 07-03-2025 Globulin (S) [Mass/Vol] 2.5 g/dL Normal 2.2-4.2 [facility] Comment on above: Order Comment: 102.2 Performed By: #### L 500.2500, L500.3400, L100.0500 #### [facility] [address] [place], [address] Serum glucose measurement (m ass/volume)Ordered By: Balwinder Alves on 07-03-2025 Glucose [Mass/Vol] 169 mg/dL High 70-99 [facility] Comment on above: Order Comment: 102.2 Performed By: #### L 500.2500, L500.3400, L100.0500 #### [facility] [address] [place], [address] Serum or plasma alanine galan otransferase (ALT) measurementOrdered By: Balwinder Alves on 07-03-2025 ALT [Catalytic activity/Vol] 12 U/L Normal <=34 [facility] Comment on above: Order Comment: 102.2 Performed By: #### L 500.2500, L500.3400, L100.0500 #### [facility] [address] [place], [address] Serum or plasma albumin jacqueline urement (mass/volume)Ordered By: Balwinder Alves on 07-03-2025 Albumin [Mass/Vol] 3.4 g/dL Normal 3.4-4.8 [facility] Comment on above: Order Comment: 102.2 Performed By: #### L 500.2500, L500.3400, L100.0500 #### [facility] [address] [place], [address] Serum or plasma alkaline marva sphatase measurementOrdered By: Balwinder Alves on 07-03-2025 ALP [Catalytic activity/Vol] 73 U/L 35-104 [facility] Serum or plasma calcium jacqueline urement (mass/volume)Ordered By: Balwinder Alves on 07-03-2025 Calcium [Mass/Vol] 9.2 mg/dL Normal 7.6-11.0 [facility] Comment on above: Order Comment: 102.2 Performed By: #### L 500.2500, L500.3400, L100.0500 #### [facility] [address] [place], [address] Serum or plasma urea nitroge n measurement (mass/volume)Ordered By: Balwinder Alves on 07-03-2025 Urea nitrogen [Mass/Vol] 9 mg/dL Normal 4-19 [facility] Comment on above: Order Comment: 102.2 Performed By: #### L 500.2500, L500.3400, L100.0500 #### [facility] [address] [place], [address] Sodium levelOrdered By: Balwinder Alves on 07-03-2025 Sodium [Moles/Vol] 139 mmol/L Normal 133-145 [facility] Comment on above: Order Comment: 102.2 Performed By: #### L 500.2500, L500.3400, L100.0500 #### [facility] [address] [place], [address] Total proteinOrdered By: Javed Alves on 07-03-2025 Protein [Mass/Vol] 5.9 g/dL 5.9-8.4 [facility] White blood cell (WBC) count Ordered By: Balwinder Alves on 07-03-2025 WBC (Bld) [#/Vol] 7.2 10*3/uL Normal 4.4-11.0 [facility] Comment on above: Order Comment: 102.2 Performed By: #### L 500.2500, L500.3400, L100.0500 #### [facility] [address] [place], [address] Laboratory - Chemistry and C hemistry - challengeOrdered By: Dorota James on 06-30-2025 Bilirubin Ql (U) Negative [facility] Glucose Ql (U) Negative [facility] Ketones Ql (U) Negative [facility] pH (U) 5.5 [pH] [facility] Specific gravity (U) [Rel density] 1.010 [facility] Urobilinogen (U) [Mass/Vol] 0.5522005 mg/dL [facility] Laboratory - Hematology and Cell countsOrdered By: Dorota James on 06-30-2025 Hemoglobin Ql (U) Trace [facility] Comment on above: 25 Laboratory - Specimen inform ationOrdered By: Dorota James on 06-30-2025 Color (U) YELLOW [facility] Laboratory - UrinalysisOrder ed By: Dorota James on 06-30-2025 Nitrite Ql (U) Negative [facility] Protein Ql (U) Positive [facility] MR/Jayme 06-30-2025 /HUA [facility] [address] [place] [address], [address] [place] [address] OFFICE VISIT Date of Service: 06/30/25 MR#: [id number] Acct: [id number] Name: GUMARO HUFF Rep #: [id number] : 1945 Provider: Dr. Dorota Key i, MD Age/Sex: 80/F Location: [facility] [place] Status: Signed Intake Vital Signs 05/17/25 10:04 06/30/25 10:21 Height 5 ft 9 in 5 ft 9 in Weight: 278 lb BMI 41.0 BP 124/78 H Pulse 78 Temp 97.9 F Intake Visit Reasons: Pre-op Urine C S/sign consent Chief Complaint: pre-op Accompanied by: Caregiver Is patient in pain?: No Allergies adhesive tape Allergy (Mild, Verified 07/06/25 11:21) blister amoxicillin (From Augmentin) Allergy (Mild, Verified 07/06/25 11:21) Rash ciprofloxacin (From Cipro) Allergy (Mild, Verified 07/06/25 11:21) Rash clavulanic acid (From Augmentin) Allergy (Mild, Verified 07/06/25 11:21) Rash latex Allergy (Mild, Verified 07/06/25 11:21) Other aspirin (ASA) Allergy (Unknown, Verified 07/06/25 11:21) PT UNSURE OF REACTION cephalexin (From Keflex) Allergy (Unknown, Verified 07/06/25 11:21) PT UNSURE OF REACTION dapagliflozin (From Farxiga) Allergy (Unknown, Verified 07/06/25 11:21) PT UNSURE OF REACTION diphenhydramine (From Percogesic) Allergy (Unknown, Verified 07/06/25 11:21) PT UNSURE OF REACTION ibuprofen Allergy (Unknown, Verified 07/06/25 11:21) PT UNSURE OF REACTION phenyltoloxamine (From Percogesic) Allergy (Unknown, Verified 07/06/25 11:21) PT UNSURE OF REACTION vancomycin Adverse Reaction (Mild, Verified 07/06/25 11:21) red man syndrome sulfamethoxazole (From Bactrim) Adverse Reaction (Verified 07/06/25 11:21) Shortness of breath trimethoprim (From Bactrim) Adverse Reaction (Verified 07/06/25 11:21) Shortness of breath Medications ???Medication ???Instructions ???Recorded ???Confirmed ???Type duloxetine 60 mg capsule,delayed 60 mg PO QHS 11/01/20 07/06/25 His tory release losartan 100 mg tablet 100 mg PO DAILY 11/01/20 07/06/25 History metformin 1,000 mg tablet 1,000 mg PO BID 11/01/20 07/06/25 History trazodone 50 mg tablet 25 mg PO QHS 11/01/20 07/06/25 His tory simvastatin 5 mg tablet 5 mg PO QHS 07/16/23 07/06/25 Hist ory acetaminophen 500 mg tablet 1,000 mg PO TID 05/17/25 07/06/25 History (Tylenol Extra Strength) ascorbic acid (vitamin C) 500 mg 500 mg PO DAILY 05/17/25 07/06/25 History capsule boric acid 600 mg vaginal 600 mg vaginal TUFR 05/17/2507/06 History suppository (Azo Boric Acid) cholecalciferol (vitamin D3) 50 50 mcg PO QDAY 05/17/25 07/06/25 H istory mcg (2,000 unit) tablet colestipol 1 gram tablet 2 g PO BID 05/17/25 07/06/25 Histo ry d-mannose 500 mg capsule 1,000 mg PO BID 05/17/25 07/06/25 History diclofenac sodium 1 % topical gel 2 g topical BID 05/17/25 06/30/25 History gabapentin 400 mg capsule 400 mg PO TID 05/17/25 07/06/25 Hi story loperamide 2 mg capsule (Imodium 2 mg PO Q6H PRN diarrhea 05/17/25 07/06/25 History A-D) methenamine hippurate 1 gram tablet 1 g PO BID 05/17/25 07/06/25 Hi story oxybutynin chloride 5 mg tablet 5 mg PO QHS 05/17/25 07/06/25 Hist ory oxycodone 5 mg tablet 5 mg PO Q6H PRN pain 05/17/2511/29 History dulaglutide 3 mg/0.5 mL 3 mg subcut TU 05/29/25 07/06/25 H istory subcutaneous pen injector (Trulicity) Have you fallen in the past year?: No Nurse's Note: Patient doing well today. [facility] Medical History H/O echocardiogram History of ESBL E. coli infection Lives in senior living Wears glasses Wears dentures Diabetes Uses wheelchair Walker as ambulation aid Arthritis Bladder disease History of IBS Former smoker Hypertension Flank pain Kidney stones ESBL (extended spectrum beta-lactamase) producing bacteria infection Hx pulmonary embolism Surgical History Hx of brain surgery Hx of hysterectomy Hx of total knee arthroplasty Hx of total knee arthroplasty Social History Smoking Status: Former smoker HPI HPI Urology Chief Complaint: pre-op Details: GUMARO HUFF, is a 80 F. The patient is here for preoperative history and physical prior to cystoscopy with right ureteral stent insertion, right renal extracorporal shockwave lithotripsy. There are no new symptoms since the last visit. The procedure, recovery and expectations were explained. The risks, benefits and alternatives were discussed, including but not limited to, the risks of anesthesia, bleeding, infection, injury, pain and the need for further intervention. We have discussed the risk of exposure to and/or potential harm posed by the COVID-19 virus with having a surgery/procedure a (more content not included)... Normal [facility] No Panel InformationOrdered By: Dorota James on 06-30-2025 Urine Leukocytes Positive [facility] Comment on above: 500 Anion gap in Serum or Plasma Ordered By: Balwinder Alves on 06-26-2025 Anion gap [Moles/Vol] 11 mmol/L 02-16 [facility] BUN/creatinine ratioOrdered By: Balwinder Alves on 06-26-2025 Urea nitrogen/Creatinine [Mass ratio] 13.0 mg/mg 07-24 [facility] Basic Metabolic Profile (BMP )on 06-26-2025 BUN/CRE 13.0 RATIO Normal 07-24 [facility] Comment on above: Order Comment: 102.2 Performed By: #### L 500.2500, L500.3400, L100.0500 #### [facility] [address] [place], [address] Calcium [Mass/Vol] 9.5 mg/dL Normal 7.6-11.0 [facility] Comment on above: Order Comment: 102.2 Performed By: #### L 500.2500, L500.3400, L100.0500 #### [facility] [address] [place], [address] Chloride [Moles/Vol] 96 mmol/L Low 98-108 [facility] Comment on above: Order Comment: 102.2 Performed By: #### L 500.2500, L500.3400, L100.0500 #### [facility] [address] [place], [address] CO2 [Moles/Vol] 29.0 mmol/L Normal 21.0-32.0 [facility] Comment on above: Order Comment: 102.2 Performed By: #### L 500.2500, L500.3400, L100.0500 #### [facility] [address] [place], [address] Creatinine [Mass/Vol] 0.69 mg/dL Low 0.70-1.20 [facility] Comment on above: Order Comment: 102.2 Performed By: #### L 500.2500, L500.3400, L100.0500 #### [facility] [address] [place], [address] GAP 11 Normal 5-15 [facility] Comment on above: Order Comment: 102.2 Performed By: #### L 500.2500, L500.3400, L100.0500 #### [facility] [address] [place], [address] GFR/1.73 sq M.predicted among non-blacks MDRD (S/P/Bld) [Vol rate/Area] 87 mL/min/{1.73_m2} Normal >60 [facility] Comment on above: Order Comment: 102.2 Result Comment: mL/m in/1.73m2 CKD-EPI Creatinine Equation (2020) Performed By: #### L 500.2500, L500.3400, L100.0500 #### [facility] [address] [place], [address] Glucose [Mass/Vol] 207 mg/dL High 70-99 [facility] Comment on above: Order Comment: 102.2 Performed By: #### L 500.2500, L500.3400, L100.0500 #### [facility] [address] [place], [address] Potassium [Moles/Vol] 4.7 mmol/L Normal 3.3-5.1 [facility] Comment on above: Order Comment: 102.2 Performed By: #### L 500.2500, L500.3400, L100.0500 #### [facility] [address] [place], [address] Sodium [Moles/Vol] 136 mmol/L Normal 133-145 [facility] Comment on above: Order Comment: 102.2 Performed By: #### L 500.2500, L500.3400, L100.0500 #### [facility] [address] [place], [address] Urea nitrogen [Mass/Vol] 9 mg/dL Normal 4-19 [facility] Comment on above: Order Comment: 102.2 Performed By: #### L 500.2500, L500.3400, L100.0500 #### [facility] [address] [place], [address] Bilirubin directOrdered By: Balwinder Alves on 06-26-2025 Bilirubin.direct [Mass/Vol] 0.12 mg/dL 0.00-0.30 [facility] Bilirubin, totalOrdered By: Balwinder Alves on 06-26-2025 Bilirubin [Mass/Vol] 0.26 mg/dL 0.00-1.30 [facility] CBC-Complete Blood Cnt No Di ffon 06-26-2025 Erythrocyte distribution width (RBC) [Ratio] 14.5 % Normal 11.6-14.6 [facility] Comment on above: Order Comment: 102.2 Performed By: #### L 500.2500, L500.3400, L100.0500 #### [facility] [address] [place], [address] Hematocrit (Bld) [Volume fraction] 37.3 % Normal 37-47 [facility] Comment on above: Order Comment: 102.2 Performed By: #### L 500.2500, L500.3400, L100.0500 #### [facility] [address] [place], [address] Hemoglobin (Bld) [Mass/Vol] 11.4 g/dL Low 12.0-15.0 [facility] Comment on above: Order Comment: 102.2 Performed By: #### L 500.2500, L500.3400, L100.0500 #### [facility] [address] [place], [address] MCH (RBC) [Entitic mass] 28.9 pg Normal 27.0-32.0 [facility] Comment on above: Order Comment: 102.2 Performed By: #### L 500.2500, L500.3400, L100.0500 #### [facility] [address] [place], [address] MCHC (RBC) [Mass/Vol] 30.6 g/dL Low 32-36 [facility] Comment on above: Order Comment: 102.2 Performed By: #### L 500.2500, L500.3400, L100.0500 #### [facility] [address] [place], [address] MCV (RBC) [Entitic vol] 94.7 fL Normal 81-99 [facility] Comment on above: Order Comment: 102.2 Performed By: #### L 500.2500, L500.3400, L100.0500 #### [facility] [address] [place], [address] Platelet mean volume (Bld) [Entitic vol] 9.0 fL Normal 6.2-12.0 [facility] Comment on above: Order Comment: 102.2 Performed By: #### L 500.2500, L500.3400, L100.0500 #### [facility] [address] [place], [address] Platelets (Bld) [#/Vol] 197 10*3/uL Normal 150-450 [facility] Comment on above: Order Comment: 102.2 Performed By: #### L 500.2500, L500.3400, L100.0500 #### [facility] [address] [place], [address] RBC (Bld) [#/Vol] 3.94 10*6/uL Low 4.2-5.4 [facility] Comment on above: Order Comment: 102.2 Performed By: #### L 500.2500, L500.3400, L100.0500 #### [facility] [address] [place], [address] RDW SD 50.1 fl High 35.1-43.9 [facility] Comment on above: Order Comment: 102.2 Performed By: #### L 500.2500, L500.3400, L100.0500 #### [facility] [address] [place], [address] WBC (Bld) [#/Vol] 7.7 10*3/uL Normal 4.4-11.0 [facility] Comment on above: Order Comment: 102.2 Performed By: #### L 500.2500, L500.3400, L100.0500 #### [facility] [address] [place], [address] Carbon dioxide, total [Moles /volume] in Central venous bloodOrdered By: Balwinder Alves on 06-26-2025 CO2 [Moles/Vol] 29.0 mmol/L 21.0-32.0 [facility] Chloride assayOrdered By: Jen Alves on 06-26-2025 Chloride [Moles/Vol] 96 mmol/L Low 98-108 [facility] Erythrocyte distribution wid th ratioOrdered By: Balwinder Alves on 06-26-2025 Erythrocyte distribution width (RBC) [Ratio] 14.5 % 11.6-14.6 [facility] Erythrocyte distribution wid th standard deviationOrdered By: Balwinder Alves on 06-26-2025 Erythrocyte distribution width (RBC) [Ratio] 50.1 fl High 35.1-43.9 [facility] Glomerular filtration rate ( GFR) estimation/1.73 sq m using serum, plasma, or whole bOrdered By: Balwinder Alves on 06-26-2025 GFR/1.73 sq M.predicted among non-blacks MDRD (S/P/Bld) [Vol rate/Area] 87 mL/min/{1.73_m2} >60 [facility] Comment on above: mL/min/1.73m2 CKD-EP I Creatinine Equation (2020) Hematocrit Auto (Bld) [Volum e fraction]Ordered By: Balwinder Alves on 06-26-2025 Hematocrit (Bld) [Volume fraction] 37.3 % 37-47 [facility] Hemoglobin measurementOrdere d By: Balwinder Alves on 06-26-2025 Hemoglobin (Bld) [Mass/Vol] 11.4 g/dL Low 12.0-15.0 [facility] - Chemistry and C hemistry - challengeOrdered By: Balwinder Alves on 06-26-2025 AST [Catalytic activity/Vol] 12 U/L <32 [facility] Liver Profileon 06-26-2025 Albumin [Mass/Vol] 3.6 g/dL Normal 3.4-4.8 [facility] Comment on above: Order Comment: 102.2 Performed By: #### L 500.2500, L500.3400, L100.0500 #### [facility] [address] [place], [address] ALK PHOS 63 U/L Normal 35-104 [facility] Comment on above: Order Comment: 102.2 Performed By: #### L 500.2500, L500.3400, L100.0500 #### [facility] [address] [place], [address] ALT [Catalytic activity/Vol] 5 U/L Normal <=34 [facility] Comment on above: Order Comment: 102.2 Performed By: #### L 500.2500, L500.3400, L100.0500 #### [facility] [address] [place], [address] AST [Catalytic activity/Vol] 12 U/L Normal <=31 [facility] Comment on above: Order Comment: 102.2 Performed By: #### L 500.2500, L500.3400, L100.0500 #### [facility] [address] [place], [address] Bilirubin [Mass/Vol] 0.26 mg/dL Normal 0.00-1.30 [facility] Comment on above: Order Comment: 102.2 Performed By: #### L 500.2500, L500.3400, L100.0500 #### [facility] [address] [place], [address] Bilirubin.direct [Mass/Vol] 0.12 mg/dL Normal 0.00-0.30 [facility] Comment on above: Order Comment: 102.2 Performed By: #### L 500.2500, L500.3400, L100.0500 #### [facility] [address] [place], [address] Globulin (S) [Mass/Vol] 2.7 g/dL Normal 2.2-4.2 [facility] Comment on above: Order Comment: 102.2 Performed By: #### L 500.2500, L500.3400, L100.0500 #### [facility] [address] [place], [address] T PROT 6.3 g/dL Normal 5.9-8.4 [facility] Comment on above: Order Comment: 102.2 Performed By: #### L 500.2500, L500.3400, L100.0500 #### [facility] [address] [place], [address] MCV (mean corpuscular volume ) determinationOrdered By: Balwinder Alves on 06-26-2025 MCV (RBC) [Entitic vol] 94.7 fL 81-99 [facility] Mean corpuscular hemoglobin (MCH) determinationOrdered By: Balwinder Alves on 06-26-2025 MCH (RBC) [Entitic mass] 28.9 pg 27.0-32.0 [facility] Mean corpuscular hemoglobin concentration (MCHC) determinationOrdered By: Balwinder Alves on 06-26-2025 MCHC (RBC) [Mass/Vol] 30.6 g/dL Low 32-36 [facility] Mean platelet volume determi nationOrdered By: Balwinder Alves on 06-26-2025 Platelet mean volume (Bld) [Entitic vol] 9.0 fL 6.2-12.0 [facility] Platelet countOrdered By: Jen Alves on 06-26-2025 Platelets (Bld) [#/Vol] 197 10*3/uL 150-450 [facility] Potassium measurement (mass/ volume)Ordered By: Balwinder Alves on 06-26-2025 Potassium (Unsp spec) [Mass/Vol] 4.7 mmol/L 3.3-5.1 [facility] RBC Auto (Bld) [#/Vol]Ordere d By: Balwinder Alves on 06-26-2025 RBC (Bld) [#/Vol] 3.94 10*6/uL Low 4.2-5.4 [facility] Serum creatinine measurement (mass/volume)Ordered By: Balwinder Alves on 06-26-2025 Creatinine [Mass/Vol] 0.69 mg/dL Low 0.70-1.20 [facility] Serum globulin measurementOr dered By: Balwinder Alves on 06-26-2025 Globulin (S) [Mass/Vol] 2.7 g/dL 2.2-4.2 [facility] Serum glucose measurement (m ass/volume)Ordered By: Balwinder Alves on 06-26-2025 Glucose [Mass/Vol] 207 mg/dL High 70-99 [facility] Serum or plasma alanine galan otransferase (ALT) measurementOrdered By: Balwinder Alves on 06-26-2025 ALT [Catalytic activity/Vol] 5 U/L <35 [facility] Serum or plasma albumin jacqueline urement (mass/volume)Ordered By: Balwinder Alves on 06-26-2025 Albumin [Mass/Vol] 3.6 g/dL 3.4-4.8 [facility] Serum or plasma alkaline marva sphatase measurementOrdered By: Balwinder Alves on 06-26-2025 ALP [Catalytic activity/Vol] 63 U/L 35-104 [facility] Serum or plasma calcium jacqueline urement (mass/volume)Ordered By: Balwinder Alves on 06-26-2025 Calcium [Mass/Vol] 9.5 mg/dL 7.6-11.0 [facility] Serum or plasma urea nitroge n measurement (mass/volume)Ordered By: Balwinder Alves on 06-26-2025 Urea nitrogen [Mass/Vol] 9 mg/dL - [facility] Sodium levelOrdered By: Balwinder Alves on 06-26-2025 Sodium [Moles/Vol] 136 mmol/L 133-145 [facility] Total proteinOrdered By: Javed Alves on 06-26-2025 Protein [Mass/Vol] 6.3 g/dL 5.9-8.4 [facility] White blood cell (WBC) count Ordered By: Balwinder Alves on 06-26-2025 WBC (Bld) [#/Vol] 7.7 10*3/uL 4.4-11.0 [facility] Anion gap in Serum or Plasma Ordered By: Balwinder Alves on 06-15-2025 Anion gap [Moles/Vol] 10 mmol/L 02-16 [facility] BUN/creatinine ratioOrdered By: Balwinder Alves on 06-15-2025 Urea nitrogen/Creatinine [Mass ratio] 13.5 mg/mg 07-24 [facility] Basic Metabolic Profile (BMP )on 06-15-2025 BUN/CRE 13.5 RATIO Normal 07-24 [facility] Comment on above: Order Comment: 102-2 Performed By: #### L 500.2500, L100.0100 #### [facility] [address] [place], [address] Calcium [Mass/Vol] 9.6 mg/dL Normal 7.6-11.0 [facility] Comment on above: Order Comment: 102-2 Performed By: #### L 500.2500, L100.0100 #### [facility] [address] [place], [address] Chloride [Moles/Vol] 99 mmol/L Normal 98-108 [facility] Comment on above: Order Comment: 102-2 Performed By: #### L 500.2500, L100.0100 #### [facility] [address] [place], [address] CO2 [Moles/Vol] 28.8 mmol/L Normal 21.0-32.0 [facility] Comment on above: Order Comment: 102-2 Performed By: #### L 500.2500, L100.0100 #### [facility] [address] [place], [address] Creatinine [Mass/Vol] 0.71 mg/dL Normal 0.70-1.20 [facility] Comment on above: Order Comment: 102-2 Performed By: #### L 500.2500, L100.0100 #### [facility] [address] [place], [address] GAP 10 Normal 5-15 [facility] Comment on above: Order Comment: 102-2 Performed By: #### L 500.2500, L100.0100 #### [facility] [address] [place], [address] GFR/1.73 sq M.predicted among non-blacks MDRD (S/P/Bld) [Vol rate/Area] 85 mL/min/{1.73_m2} Normal >60 [facility] Comment on above: Order Comment: 102-2 Result Comment: mL/m in/1.73m2 CKD-EPI Creatinine Equation (2020) Performed By: #### L 500.2500, L100.0100 #### [facility] [address] [place], [address] Glucose [Mass/Vol] 204 mg/dL High 70-99 [facility] Comment on above: Order Comment: 102-2 Performed By: #### L 500.2500, L100.0100 #### [facility] [address] [place], [address] Potassium [Moles/Vol] 4.6 mmol/L Normal 3.3-5.1 [facility] Comment on above: Order Comment: 102-2 Performed By: #### L 500.2500, L100.0100 #### [facility] [address] [place], [address] Sodium [Moles/Vol] 138 mmol/L Normal 133-145 [facility] Comment on above: Order Comment: 102-2 Performed By: #### L 500.2500, L100.0100 #### [facility] [address] [place], [address] Urea nitrogen [Mass/Vol] 10 mg/dL Normal 4-19 [facility] Comment on above: Order Comment: 102-2 Performed By: #### L 500.2500, L100.0100 #### [facility] [address] [place], [address] CBC-Complete Blood Cnt No Di ffon 06-15-2025 Erythrocyte distribution width (RBC) [Ratio] 14.3 % Normal 11.6-14.6 [facility] Comment on above: Order Comment: 102-2 Performed By: #### L 500.2500, L100.0100 #### [facility] [address] [place], [address] Hematocrit (Bld) [Volume fraction] 36.7 % Low 37-47 [facility] Comment on above: Order Comment: 102-2 Performed By: #### L 500.2500, L100.0100 #### [facility] [address] [place], [address] Hemoglobin (Bld) [Mass/Vol] 11.3 g/dL Low 12.0-15.0 [facility] Comment on above: Order Comment: 102-2 Performed By: #### L 500.2500, L100.0100 #### [facility] [address] [place], [address] MCH (RBC) [Entitic mass] 28.8 pg Normal 27.0-32.0 [facility] Comment on above: Order Comment: 102-2 Performed By: #### L 500.2500, L100.0100 #### [facility] [address] [place], [address] MCHC (RBC) [Mass/Vol] 30.8 g/dL Low 32-36 [facility] Comment on above: Order Comment: 102-2 Performed By: #### L 500.2500, L100.0100 #### [facility] [address] [place], [address] MCV (RBC) [Entitic vol] 93.4 fL Normal 81-99 [facility] Comment on above: Order Comment: 102-2 Performed By: #### L 500.2500, L100.0100 #### [facility] [address] [place], [address] Platelet mean volume (Bld) [Entitic vol] 8.3 fL Normal 6.2-12.0 [facility] Comment on above: Order Comment: 102-2 Performed By: #### L 500.2500, L100.0100 #### [facility] [address] [place], [address] Platelets (Bld) [#/Vol] 184 10*3/uL Normal 150-450 [facility] Comment on above: Order Comment: 102-2 Performed By: #### L 500.2500, L100.0100 #### [facility] [address] [place], [address] RBC (Bld) [#/Vol] 3.93 10*6/uL Low 4.2-5.4 [facility] Comment on above: Order Comment: 102-2 Performed By: #### L 500.2500, L100.0100 #### [facility] [address] [place], [address] RDW SD 49.1 fl High 35.1-43.9 [facility] Comment on above: Order Comment: 102-2 Performed By: #### L 500.2500, L100.0100 #### [facility] [address] [place], [address] WBC (Bld) [#/Vol] 6.4 10*3/uL Normal 4.4-11.0 [facility] Comment on above: Order Comment: 102-2 Performed By: #### L 500.2500, L100.0100 #### [facility] [address] [place], [address] Carbon dioxide, total [Moles /volume] in Central venous bloodOrdered By: Balwinder Alves on 06-15-2025 CO2 [Moles/Vol] 28.8 mmol/L 21.0-32.0 [facility] Chloride assayOrdered By: Jen Alves on 06-15-2025 Chloride [Moles/Vol] 99 mmol/L 98-108 [facility] Erythrocyte distribution wid th ratioOrdered By: Balwinder Alves on 06-15-2025 Erythrocyte distribution width (RBC) [Ratio] 14.3 % 11.6-14.6 [facility] Erythrocyte distribution wid th standard deviationOrdered By: Balwinder Alves on 06-15-2025 Erythrocyte distribution width (RBC) [Ratio] 49.1 fl High 35.1-43.9 [facility] Glomerular filtration rate ( GFR) estimation/1.73 sq m using serum, plasma, or whole bOrdered By: Balwinder Alves on 06-15-2025 GFR/1.73 sq M.predicted among non-blacks MDRD (S/P/Bld) [Vol rate/Area] 85 mL/min/{1.73_m2} >60 [facility] Comment on above: mL/min/1.73m2 CKD-EP I Creatinine Equation (2020) Hematocrit Auto (Bld) [Volum e fraction]Ordered By: Balwinder Alves on 06-15-2025 Hematocrit (Bld) [Volume fraction] 36.7 % Low 37-47 [facility] Hemoglobin measurementOrdere d By: Balwinder Alves on 06-15-2025 Hemoglobin (Bld) [Mass/Vol] 11.3 g/dL Low 12.0-15.0 [facility] MCV (mean corpuscular volume ) determinationOrdered By: Balwinder Alves on 06-15-2025 MCV (RBC) [Entitic vol] 93.4 fL 81-99 [facility] Mean corpuscular hemoglobin (MCH) determinationOrdered By: Balwinder Alves on 06-15-2025 MCH (RBC) [Entitic mass] 28.8 pg 27.0-32.0 [facility] Mean corpuscular hemoglobin concentration (MCHC) determinationOrdered By: Balwinder Alves on 06-15-2025 MCHC (RBC) [Mass/Vol] 30.8 g/dL Low 32-36 [facility] Mean platelet volume determi nationOrdered By: Balwinder Alves on 06-15-2025 Platelet mean volume (Bld) [Entitic vol] 8.3 fL 6.2-12.0 [facility] Platelet countOrdered By: Jen Alves on 06-15-2025 Platelets (Bld) [#/Vol] 184 10*3/uL 150-450 [facility] Potassium measurement (mass/ volume)Ordered By: Balwinder Alves on 06-15-2025 Potassium (Unsp spec) [Mass/Vol] 4.6 mmol/L 3.3-5.1 [facility] RBC Auto (Bld) [#/Vol]Ordere d By: Balwinder Alves on 06-15-2025 RBC (Bld) [#/Vol] 3.93 10*6/uL Low 4.2-5.4 [facility] Serum creatinine measurement (mass/volume)Ordered By: Balwinder Alves on 06-15-2025 Creatinine [Mass/Vol] 0.71 mg/dL 0.70-1.20 [facility] Serum glucose measurement (m ass/volume)Ordered By: Balwinder Alves on 06-15-2025 Glucose [Mass/Vol] 204 mg/dL High 70-99 [facility] Serum or plasma calcium jacqueline urement (mass/volume)Ordered By: Balwinder Alves on 06-15-2025 Calcium [Mass/Vol] 9.6 mg/dL 7.6-11.0 [facility] Serum or plasma urea nitroge n measurement (mass/volume)Ordered By: Balwinder Alves on 06-15-2025 Urea nitrogen [Mass/Vol] 10 mg/dL 4-19 [facility] Sodium levelOrdered By: Balwinder Alves on 06-15-2025 Sodium [Moles/Vol] 138 mmol/L 133-145 [facility] White blood cell (WBC) count Ordered By: Balwinder Alves on 06-15-2025 WBC (Bld) [#/Vol] 6.4 10*3/uL 4.4-11.0 [facility] Urine Cultureon 06-05-2025 [facility] POSSIBLE E.COLI 0157 . UNABLE TO CONFIRM, TESTING DISCONTINUED AT [facility]. Urine Culture [facility]25 0904 Lorrie Patterson. REPORT READ BACK BY . Urine Culture Copy of report sent to Infection Control Printer [id number] 06/04/25 0905 ESSENCE. ESBL Escherichia coli [place] Count 80,000-100,000 MARKER ESBL producing OrganismA MARKER [...] S Tobramycin Islt PREM <=1 S Normal [facility] Comment on above: Performed By: #### L 100.0500, L500.2500 #### [facility] [address] [place], [address] Calculated very low density lipoprotein (VLDL) cholesterol measurementOrdered By: Balwinder Alves on 06-01-2025 Calculated very low density lipoprotein (VLDL) cholesterol measurement 40 mg/dL 5-40 [facility] Hemoglobin A1c percentageOrd ered By: Balwinder Alves on 06-01-2025 HbA1c (Bld) [Mass fraction] 7.8 % High <=5.6 [facility] Comment on above: Normal < 5.7 % Predi abetic 5.7 - 6.4 % Diabetic >or= 6.5 % Please note range changes. Result Comment: Norm al < 5.7 % Prediabetic 5.7 - 6.4 % Diabetic >or= 6.5 % Please note range changes. Performed By: #### L 100.0500, L500.2500 #### [facility] [address] [place], [address] LDL calc ser/plasOrdered By: Balwinder Alves on 06-01-2025 Cholesterol in LDL [Mass/Vol] 28 mg/dL Normal [facility] Comment on above: Ydvqxdmrmz=951-368 m g/dL & Higher Kiik=197 mg/dL or greaterFriedwald Equation for LDL-C Order Comment: 102.2 Result Comment: Bord kmvzlp=231-099 mg/dL Higher Wvrd=511 mg/dL or greater Friedwald Equation for LDL-C Performed By: #### L 100.0500, L500.2500 #### [facility] [address] [place], [address] Lipid Profileon 06-01-2025 CHOL:HDL 2.24 Normal [facility] Comment on above: Order Comment: 102.2 Performed By: #### L 100.0500, L500.2500 #### [facility] [address] [place], [address] Cholesterol in VLDL [Mass/Vol] 40 mg/dL Normal 5-40 [facility] Comment on above: Order Comment: 102.2 Performed By: #### L 100.0500, L500.2500 #### [facility] [address] [place], [address] Screening total cholesterol/ high density lipoprotein (HDL) cholesterol ratioOrdered By: Balwinder Alves on 06-01-2025 Cholesterol.total/Jany sterol in HDL [Mass ratio] 2.24 {ratio} [facility] Serum or plasma cholesterol in HDL measurement (mass/volume)Ordered By: Balwinder Alves on 06-01-2025 Cholesterol in HDL [Mass/Vol] 55 mg/dL Normal [facility] Comment on above: National Cholesterol Education Program (NCEP) guidelines:<40 mg/dL: Low HDL-cholesterol (major risk factor for CHD)>= 60 mg/dL: High HDL-cholesterol (negative risk factor for CHD)HDL-cholesterol is affected by a number of factors, e.g. smoking, exercise, hormones, sex and age. Order Comment: 102.2 Result Comment: Matilde onal Cholesterol Education Program (NCEP) guidelines: <40 mg/dL: Low HDL-cholesterol (major risk factor for CHD) >= 60 mg/dL: High HDL-cholesterol (negative risk factor for CHD) HDL-cholesterol is affected by a number of factors, e.g. smoking, exercise, hormones, sex and age. Performed By: #### L 100.0500, L500.2500 #### [facility] [address] [facility] [id number] Serum or plasma cholesterol measurement (mass/volume)Ordered By: Balwinder Alves on 06-01-2025 Cholesterol [Mass/Vol] 123 mg/dL Normal <=200 [facility] Comment on above: Cholesterol level, D esirable <200 mg/dLBorderline high cholesterol 200-239 mg/dLHigh cholesterol >=240 mg/dLRecommendations of the NCEP Adult Treatment Panel for the following risk-cutoff thresholds for the [place] population. Order Comment: 102.2 Result Comment: Chol esterol level, Desirable <200 mg/dL Borderline high cholesterol 200-239 mg/dL High cholesterol >=240 mg/dL Recommendations of the NCEP Adult Treatment Panel for the following risk-cutoff thresholds for the [place] population. Performed By: #### L 100.0500, L500.2500 #### [facility] [address] [facility] [id number] Triglycerides measurementOrd ered By: Balwinder Alves on 06-01-2025 Triglyceride [Mass/Vol] 199 mg/dL Normal [facility] Comment on above: The drugs N-Acetylcy steine and Metamizole may falsely depress this assay. Normal range: <150 mg/dLBorderline High: 150-199 mg/dLHigh: 200-499 mg/dLVery High: >500 mg/dL Order Comment: 102.2 Result Comment: The drugs N-Acetylcysteine and Metamizole may falsely depress this assay. Normal range: <150 mg/dL Borderline High: 150-199 mg/dL High: 200-499 mg/dL Very High: >500 mg/dL Performed By: #### L 100.0500, L500.2500 #### [facility] [address] [place], [address] Urinalysis, Routine (Dipstic k)on 06-01-2025 BILIRUBIN URINE Negative Normal Negative [facility] Comment on above: Order Comment: 102.2 Performed By: #### L 100.0500, L500.2500 #### [facility] [address] [place], [address] Clarity (U) Cloudy Normal Clear [facility] Comment on above: Order Comment: 102.2 Performed By: #### L 100.0500, L500.2500 #### [facility] [address] [place], [address] Color (U) Yellow Normal Yellow [facility] Comment on above: Order Comment: 102.2 Performed By: #### L 100.0500, L500.2500 #### [facility] [address] [place], [address] GLUCOSE, UR Normal Normal Normal [facility] Comment on above: Order Comment: 102.2 Performed By: #### L 100.0500, L500.2500 #### [facility] [address] [place], [address] KETONE UR Negative Normal Negative [facility] Comment on above: Order Comment: 102.2 Performed By: #### L 100.0500, L500.2500 #### [facility] [address] [place], [address] LEUK ESTERASE 500 /ul Abnormal Negative [facility] Comment on above: Order Comment: 102.2 Performed By: #### L 100.0500, L500.2500 #### [facility] [address] [place], [address] Nitrite Ql (U) Positive Abnormal Negative [facility] Comment on above: Order Comment: 102.2 Performed By: #### L 100.0500, L500.2500 #### [facility] [address] [place], [address] OCCULT BLOOD-UR 250 /ul Abnormal Negative [facility] Comment on above: Order Comment: 102.2 Performed By: #### L 100.0500, L500.2500 #### [facility] [address] [place], [address] pH UR 6.0 Normal 5.0 - 8.0 [facility] Comment on above: Order Comment: 102.2 Performed By: #### L 100.0500, L500.2500 #### [facility] [address] [place], [address] PROT DIPSTX 30 mg/dl Abnormal Negative [facility] Comment on above: Order Comment: 102.2 Performed By: #### L 100.0500, L500.2500 #### [facility] [address] [place], [address] SP.GR. DIPSTX 1.015 Normal 1.002-1.030 [facility] Comment on above: Order Comment: 102.2 Performed By: #### L 100.0500, L500.2500 #### [facility] [address] [place], [address] UROBILI Normal Normal Normal [facility] Comment on above: Order Comment: 102.2 Performed By: #### L 100.0500, L500.2500 #### [facility] [address] [place], [address] Vitamin D,25 Hydroxyon 06-01 Vitamin D 25-OH 31.8 ng/mL Normal 30-100 [facility] Comment on above: Order Comment: 102.2 Result Comment: Feli min D Status Deficiency: <20 ng/mL (50nmol/L) Insufficiency: 20-30 ng/mL (50-75 nmol/L) Sufficiency: 30-100 ng/mL (75-250 nmol/L) Toxicity: >100 ng/mL (>250 nmol/L) Performed By: #### L 100.0500, L500.2500 #### [facility] [address] [place] [place], [address] Bilirubin Test strip Ql (U)O rdered By: Balwinder Alves on 05-31-2025 Bilirubin Ql (U) Negative Negative [facility] Ketones Test strip Ql (U)Ord ered By: Balwinder Alves on 05-31-2025 Ketones Ql (U) Negative Negative [facility] Nitrite Test strip Ql (U)Ord ered By: Balwinder Alves on 05-31-2025 Nitrite Ql (U) Positive High Negative [facility] Protein Test strip Ql (U)Ord ered By: Balwinder Alves on 05-31-2025 Protein Ql (U) 30 mg/dl High Negative [facility] Urine clarityOrdered By: Javed Alves on 05-31-2025 Clarity (U) Cloudy Clear [facility] Urine color determinationOrd ered By: Balwinder Alves on 05-31-2025 Color (U) Yellow Yellow [facility] Urine cultureOrdered By: Javed Alves on 05-31-2025 Bacteria identified Cx Nom (U) ESBL Escherichia coli Abnormal [facility] Urine glucose detectionOrder ed By: Balwinder Alves on 05-31-2025 Glucose Ql (U) Normal mg/dl Normal [facility] Urine leukocyte esterase det ection by dipstickOrdered By: Balwinder Alves on 05-31-2025 Leukocyte esterase Test strip Ql (U) 500 /ul High Negative [facility] Urine pHOrdered By: Balwinder blackman on 05-31-2025 pH (U) 6.0 [pH] 5.0 - 8.0 [facility] Urine specific gravity measu rementOrdered By: Balwinder Alves on 05-31-2025 Specific gravity (U) [Rel density] 1.015 1.002-1.030 [facility] Urine urobilinogen measureme ntOrdered By: Balwinder Alves on 05-31-2025 Urobilinogen Ql (U) Normal mg/dl Normal [facility] MR/PATXin 05-30-2025 MR/PATRACHEL [facility] Medical Records Department [address] [place] [address] PAT - Anesthesia 05/30/25904 MR#: [id number] Acct: [id number] Name: GUMARO HUFF Rep #: [id number] : 1945 80 From: Shailesh Russell MD PCP: Dr. Balwinder Alves MD Status:PRE SD Y Race: C Location: [facility] [place] Pre-Assessment Diagnosis/Proposed Procedure Planned Operative Procedure(s): RIGHT ESWL CYSTO RIGHT STENT Anesthesia History Anesthesia History - design architect: Anesthesia History - design architect Hx Hospitalization No 05/29/25 16:00 Any Problems [...] take am of surgery PONV PONV - design architect: PONV - design architect Female Yes 05/29/25 16:00 HX of Motion [...] 05/17/25 10:04 Respiratory Assessment Respiratory Assessment - design architect: Respiratory Tract Infection Hx - design architect Hx Respiratory Tract Infection No 05/29/25 16:00 STOP Sleep Apnea STOP Sleep Apnea - design architect: STOP Sleep Apnea - design architect Hx Hypertension Yes 05/29/25 16:00 Hx Sleep [...] Tobacco Use History Tobacco Use History - design architect: Tobacco Use History - design architect Tobacco Use Smoking Status Former smoker 05/29/25 16:00 Hx Tobacco Use No 05/29/25 16:00 Years Smoking Packs Smoked per Day Smoking Cessation Date was Yes - quit smoking within 15 05/29/25 16:00 within the last 15 years years Hx Smoking Cessation Date 10/05/13 05/29/25 16:00 Hx Smoking Cessation Counseling Hematologic Medial History Hematologic Hx - design architect: 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 Normal [facility] Abdomen Single Viewon 2024 Abdomen Single View [facility] Imaging Services [address] [place] [address] Abdomen Single View MR#: [id number] Acct: [id number] Name: GUMARO HUFF Rep #: [id number] : 1945 F 80 From: Filippo Barth MD PCP: Dr. Balwinder Alves MD Status: REG CLI Study: Abdomen Single View Date of Exam: 05/17/25 Exam# [id number] Ordering Dr: Dorota James MD PROCEDURE: ABDOMEN [...] renal staghorn calculus is redemonstrated. Reading Location: [place] [address] CC: Dr. Dorota James MD; Dr. Balwinder Alves MD Support Associate: Signed Normal [facility] Absolute lymphocyte countOrd ered By: Dorota James on 05-17-2025 Lymphocytes Auto (Unsp spec) [#/Vol] 1.88 10*3/uL 0.83-4.51 [facility] Absolute neutrophil countOrd ered By: Dorota James on 05-17-2025 Neutrophils (Bld) [#/Vol] 4.3 10*3/uL 2.0-7.7 [facility] Anion gap in Serum or Plasma Ordered By: Dorota James on 05-17-2025 Anion gap [Moles/Vol] 12 mmol/L 02-16 [facility] Automated lymphocyte count a s percentage of total leukocytesOrdered By: Dorota James on 05-17-2025 Lymphocytes/100 WBC Auto (Unsp spec) 27.0 % [facility] BUN/creatinine ratioOrdered By: Dorota James on 05-17-2025 Urea nitrogen/Creatinine [Mass ratio] 14.0 mg/mg 07-24 [facility] Basic Metabolic Profile (BMP )on 05-17-2025 BUN/CRE 14.0 RATIO Normal 07-24 [facility] Comment on above: Performed By: #### L 100.0100, L500.2500 #### [facility] [address] [place], [address] GAP 12 Normal 02-16 [facility] Comment on above: Performed By: #### L 100.0100, L500.2500 #### [facility] [address] [place], [address] Potassium [Moles/Vol] 4.7 mmol/L Normal 3.3-5.1 [facility] Comment on above: Performed By: #### L 100.0100, L500.2500 #### [facility] [address] [place], [address] Basophil percentageOrdered B y: Dorota James on 05-17-2025 Basophils/100 WBC (Bld) 0.4 % 0-1 [facility] CBC W/Diff, Automatedon 05-05 Absolute Lymph 1.88 X10 3/uL Normal 0.83-4.51 [facility] Comment on above: Performed By: #### L 100.0100, L500.2500 #### [facility] [address] [place], [address] Absolute Neut 4.3 X10 3/uL Normal 2.0-7.7 [facility] Comment on above: Performed By: #### L 100.0100, L500.2500 #### [facility] [address] [place], [address] Basophils/100 WBC (Bld) 0.4 % Normal 0-1 [facility] Comment on above: Performed By: #### L 100.0100, L500.2500 #### [facility] [address] [place], [address] Eosinophils/100 WBC (Bld) 4.3 % Normal 0-5 [facility] Comment on above: Performed By: #### L 100.0100, L500.2500 #### [facility] [address] [place], [address] Erythrocyte distribution width (RBC) [Ratio] 14.1 % Normal 11.6-14.6 [facility] Comment on above: Performed By: #### L 100.0100, L500.2500 #### [facility] [address] [place], [address] Hematocrit (Bld) [Volume fraction] 39.8 % Normal 37-47 [facility] Comment on above: Performed By: #### L 100.0100, L500.2500 #### [facility] [address] [place], [address] Hemoglobin (Bld) [Mass/Vol] 12.1 g/dL Normal 12.0-15.0 [facility] Comment on above: Performed By: #### L 100.0100, L500.2500 #### [facility] [address] [place], [address] IG% 0.700 Normal 0.0-0.9 [facility] Comment on above: Result Comment: IG% - Immature Granulocytes (promyelocytes, myelocytes and metamyelocytes) > 1% indicates that a LEFT SHIFT is Present. Performed By: #### L 100.0100, L500.2500 #### [facility] [address] [place], [address] Lymphocytes/100 WBC (Bld) 27.0 % Normal 19-41 [facility] Comment on above: Performed By: #### L 100.0100, L500.2500 #### [facility] [address] [place], [address] MCH (RBC) [Entitic mass] 28.7 pg Normal 27.0-32.0 [facility] Comment on above: Performed By: #### L 100.0100, L500.2500 #### [facility] [address] [place], [address] MCHC (RBC) [Mass/Vol] 30.4 g/dL Low 32-36 [facility] Comment on above: Performed By: #### L 100.0100, L500.2500 #### [facility] [address] [place], [address] MCV (RBC) [Entitic vol] 94.5 fL Normal 81-99 [facility] Comment on above: Performed By: #### L 100.0100, L500.2500 #### [facility] [address] [place], [address] Monocytes/100 WBC (Bld) 6.5 % Normal 0-10 [facility] Comment on above: Performed By: #### L 100.0100, L500.2500 #### [facility] [address] [place], [address] Neutrophils/100 WBC (Bld) 61.1 % Normal 47-70 [facility] Comment on above: Performed By: #### L 100.0100, L500.2500 #### [facility] [address] [place], [address] Nucleated RBC (Bld) [#/Vol] 0 10*3/uL Normal 0-5 [facility] Comment on above: Performed By: #### L 100.0100, L500.2500 #### [facility] [address] [place], [address] Platelet mean volume (Bld) [Entitic vol] 8.8 fL Normal 6.2-12.0 [facility] Comment on above: Performed By: #### L 100.0100, L500.2500 #### [facility] [address] [place], [address] Platelets (Bld) [#/Vol] 220 10*3/uL Normal 150-450 [facility] Comment on above: Performed By: #### L 100.0100, L500.2500 #### [facility] [address] [place], [address] RBC (Bld) [#/Vol] 4.21 10*6/uL Normal 4.2-5.4 [facility] Comment on above: Performed By: #### L 100.0100, L500.2500 #### [facility] [address] [place], [address] RDW SD 48.4 fl High 35.1-43.9 [facility] Comment on above: Performed By: #### L 100.0100, L500.2500 #### [facility] [address] [place], [address] WBC (Bld) [#/Vol] 7.0 10*3/uL Normal 4.4-11.0 [facility] Comment on above: Performed By: #### L 100.0100, L500.2500 #### [facility] [address] [place], [address] Carbon dioxide, total [Moles /volume] in Central venous bloodOrdered By: Dorota James on 05-17-2025 CO2 [Moles/Vol] 26.4 mmol/L Normal 21.0-32.0 [facility] Comment on above: Performed By: #### L 100.0100, L500.2500 #### [facility] [address] [place], [address] Chloride assayOrdered By: Manuel James on 05-17-2025 Chloride [Moles/Vol] 99 mmol/L Normal 98-108 [facility] Comment on above: Performed By: #### L 100.0100, L500.2500 #### [facility] [address] [place], [address] Eosinophil percentageOrdered By: Dorota James on 05-17-2025 Eosinophils/100 WBC (Bld) 4.3 % 0-5 [facility] Erythrocyte distribution wid th ratioOrdered By: Dorotaismael James on 05-17-2025 Erythrocyte distribution width (RBC) [Ratio] 14.1 % 11.6-14.6 [facility] Erythrocyte distribution wid th standard deviationOrdered By: Dorotaismael James on 05-17-2025 Erythrocyte distribution width (RBC) [Ratio] 48.4 fl High 35.1-43.9 [facility] Glomerular filtration rate ( GFR) estimation/1.73 sq m using serum, plasma, or whole bOrdered By: Dorota James on 05-17-2025 GFR/1.73 sq M.predicted among non-blacks MDRD (S/P/Bld) [Vol rate/Area] 82 mL/min/{1.73_m2} Normal >60 [facility] Comment on above: mL/min/1.73m2 CKD-EP I Creatinine Equation (2020) Result Comment: mL/m in/1.73m2 CKD-EPI Creatinine Equation (2020) Performed By: #### L 100.0100, L500.2500 #### [facility] [address] [place], [place], [address] Hematocrit Auto (Bld) [Volum e fraction]Ordered By: Dorota James on 05-17-2025 Hematocrit (Bld) [Volume fraction] 39.8 % 37-47 [facility] Hemoglobin measurementOrdere d By: Dorota James on 05-17-2025 Hemoglobin (Bld) [Mass/Vol] 12.1 g/dL 12.0-15.0 [facility] Immature granulocytes/100 WB C Auto (Bld)Ordered By: Dorota James on 05-17-2025 Immature granulocytes/100 WBC (Bld) 0.700 % 0.0-0.9 [facility] Comment on above: IG% - Immature Granu locytes (promyelocytes, myelocytes and metamyelocytes) > 1% indicates that a LEFT SHIFT is Present. Laboratory - Chemistry and C hemistry - challengeOrdered By: Dorota James on 05-17-2025 Bilirubin Ql (U) Negative [facility] Glucose Ql (U) Negative [facility] Ketones Ql (U) Negative [facility] pH (U) 5 [pH] [facility] Specific gravity (U) [Rel density] 1.010 [facility] Urobilinogen (U) [Mass/Vol] Negative [facility] Laboratory - Hematology and Cell countsOrdered By: Dorota James on 05-17-2025 Hemoglobin Ql (U) Negative [facility] Laboratory - UrinalysisOrder ed By: Dorota James on 05-17-2025 Nitrite Ql (U) Positive [facility] Protein Ql (U) Negative [facility] MCV (mean corpuscular volume ) determinationOrdered By: Dorota James on 05-17-2025 MCV (RBC) [Entitic vol] 94.5 fL 81-99 [facility] MR/Jayme 05-17-2025 /HUA [facility] [address], [address] [place] [address] OFFICE VISIT Date of Service: 05/17/25 MR#: [id number] Acct: [id number] Name: GUMARO HUFF Rep #: [id number] : 1945 Provider: Dr. 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 [facility] Medical History (Updated 05/17/25 @ 11:47 [...] dizziness, weakness, (more content not included)... Normal [facility] Mean corpuscular hemoglobin (MCH) determinationOrdered By: Dorota James on 05-17-2025 MCH (RBC) [Entitic mass] 28.7 pg 27.0-32.0 [facility] Mean corpuscular hemoglobin concentration (MCHC) determinationOrdered By: Dorota James on 05-17-2025 MCHC (RBC) [Mass/Vol] 30.4 g/dL Low 32-36 [facility] Mean platelet volume determi nationOrdered By: Dorota James on 05-17-2025 Platelet mean volume (Bld) [Entitic vol] 8.8 fL 6.2-12.0 [facility] Monocyte percentageOrdered B y: Dorota James on 05-17-2025 Monocytes/100 WBC (Bld) 6.5 % 0-10 [facility] Neutrophil percentageOrdered By: Dorota James on 05-17-2025 Neutrophils/100 WBC (Bld) 61.1 % 47-70 [facility] No Panel InformationOrdered By: Dorota James on 05-17-2025 Urine Leukocytes Positive [facility] Urine Non-Hemolyzed Blood Negative [facility] Nucleated red blood cell per centageOrdered By: Dorota James on 05-17-2025 Nucleated RBC/100 WBC (Bld) [Ratio] 0 % 0-5 [facility] Platelet countOrdered By: Manuel James on 05-17-2025 Platelets (Bld) [#/Vol] 220 10*3/uL 150-450 [facility] Potassium measurement (mass/ volume)Ordered By: Dorota James on 05-17-2025 Potassium (Unsp spec) [Mass/Vol] 4.7 mmol/L 3.3-5.1 [facility] RBC Auto (Bld) [#/Vol]Ordere d By: Dorota James on 05-17-2025 RBC (Bld) [#/Vol] 4.21 10*6/uL 4.2-5.4 [facility] Serum creatinine measurement (mass/volume)Ordered By: Dorota James on 05-17-2025 Creatinine [Mass/Vol] 0.73 mg/dL Normal 0.70-1.20 [facility] Comment on above: Performed By: #### L 100.0100, L500.2500 #### [facility] [address] [place], [place], [id number] Serum glucose measurement (m ass/volume)Ordered By: Dorota James on 05-17-2025 Glucose [Mass/Vol] 179 mg/dL High 70-99 [facility] Comment on above: Performed By: #### L 100.0100, L500.2500 #### [facility] [address] [place], [address] Serum or plasma calcium jacqueline urement (mass/volume)Ordered By: Dorota James on 05-17-2025 Calcium [Mass/Vol] 9.5 mg/dL Normal 7.6-11.0 [facility] Comment on above: Performed By: #### L 100.0100, L500.2500 #### [facility] [address] [place], [address] Serum or plasma urea nitroge n measurement (mass/volume)Ordered By: Dorota James on 05-17-2025 Urea nitrogen [Mass/Vol] 10 mg/dL Normal 4-19 [facility] Comment on above: Performed By: #### L 100.0100, L500.2500 #### [facility] [address] [facility] [place], [address] Sodium levelOrdered By: Sarah James on 05-17-2025 Sodium [Moles/Vol] 137 mmol/L Normal 133-145 [facility] Comment on above: Performed By: #### L 100.0100, L500.2500 #### [facility] [address] [facility] [place], [address] White blood cell (WBC) count Ordered By: Dorota James on 05-17-2025 WBC (Bld) [#/Vol] 7.0 10*3/uL 4.4-11.0 [facility] Abdomen/Pelvis without Conto n 03-31-2025 Abdomen/Pelvis without Cont [facility] [address] [place] [address] Abdomen/Pelvis without Cont MR#: [id number] Acct: [id number] Name: GUMARO HUFF Rep #: [id number] : 1945 F 80 From: Douglas ceron MD PCP: Dr. Balwinder Alves MD Status: [facility] CLI Study: Abdomen/Pelvis without Cont Date of Exam: 03/06 04/28 Exam# [id number] Ordering Dr: Dorota James MD PROCEDURE: ABDOMEN/PELVIS [...] Sigmoid diverticulosis. Status post cholecystectomy. Reading Location: [id number] CC: Dr. Dorota James MD; Dr. Balwinder Alves MD Support Associate: Signed Normal [facility] Anion gap in Serum or Plasma Ordered By: Balwinder Alves on 03-16-2025 Anion gap [Moles/Vol] 11 mmol/L 02-16 [facility] BUN/creatinine ratioOrdered By: Balwinder Alves on 03-16-2025 Urea nitrogen/Creatinine [Mass ratio] 13.7 mg/mg - [facility] Basic Metabolic Profile (BMP )on 03-16-2025 BUN/CRE 13.7 RATIO Normal - [facility] Comment on above: Order Comment: 102.2 Performed By: #### L 100.0500, L500.2500 #### [facility] [address] [place], [place], [id number] Calcium [Mass/Vol] 9.6 mg/dL Normal 7.6-11.0 [facility] Comment on above: Order Comment: 102.2 Performed By: #### L 100.0500, L500.2500 #### [facility] [address] [place], [address] Chloride [Moles/Vol] 99 mmol/L Normal 98-108 [facility] Comment on above: Order Comment: 102.2 Performed By: #### L 100.0500, L500.2500 #### [facility] [address] [place], [address] CO2 [Moles/Vol] 28.0 mmol/L Normal 21.0-32.0 [facility] Comment on above: Order Comment: 102.2 Performed By: #### L 100.0500, L500.2500 #### [facility] [address] [place], [address] Creatinine [Mass/Vol] 0.67 mg/dL Low 0.70-1.20 [facility] Comment on above: Order Comment: 102.2 Performed By: #### L 100.0500, L500.2500 #### [facility] [address] [place], [address] GAP 11 Normal 5-15 [facility] Comment on above: Order Comment: 102.2 Performed By: #### L 100.0500, L500.2500 #### [facility] [address] [place], [address] GFR/1.73 sq M.predicted among non-blacks MDRD (S/P/Bld) [Vol rate/Area] 87 mL/min/{1.73_m2} Normal >60 [facility] Comment on above: Order Comment: 102.2 Result Comment: mL/m in/1.73m2 CKD-EPI Creatinine Equation (2020) Performed By: #### L 100.0500, L500.2500 #### [facility] [address] [place], [address] Glucose [Mass/Vol] 222 mg/dL High 70-99 [facility] Comment on above: Order Comment: 102.2 Performed By: #### L 100.0500, L500.2500 #### [facility] [address] [place], [address] Potassium [Moles/Vol] 4.3 mmol/L Normal 3.3-5.1 [facility] Comment on above: Order Comment: 102.2 Performed By: #### L 100.0500, L500.2500 #### [facility] [address] [place], [address] Sodium [Moles/Vol] 139 mmol/L Normal 133-145 [facility] Comment on above: Order Comment: 102.2 Performed By: #### L 100.0500, L500.2500 #### [facility] [address] [place], [address] Urea nitrogen [Mass/Vol] 9 mg/dL Normal 4-19 [facility] Comment on above: Order Comment: 102.2 Performed By: #### L 100.0500, L500.2500 #### [facility] [address] [place], [address] CBC-Complete Blood Cnt No Di ffon 03-16-2025 Erythrocyte distribution width (RBC) [Ratio] 15.1 % High 11.6-14.6 [facility] Comment on above: Order Comment: 102.2 Performed By: #### L 100.0500, L500.2500 #### [facility] [address] [place], [address] Hematocrit (Bld) [Volume fraction] 35.7 % Low 37-47 [facility] Comment on above: Order Comment: 102.2 Performed By: #### L 100.0500, L500.2500 #### [facility] [address] [place], [address] Hemoglobin (Bld) [Mass/Vol] 10.9 g/dL Low 12.0-15.0 [facility] Comment on above: Order Comment: 102.2 Performed By: #### L 100.0500, L500.2500 #### [facility] [address] [place], [address] MCH (RBC) [Entitic mass] 28.8 pg Normal 27.0-32.0 [facility] Comment on above: Order Comment: 102.2 Performed By: #### L 100.0500, L500.2500 #### [facility] [address] [place], [address] MCHC (RBC) [Mass/Vol] 30.5 g/dL Low 32-36 [facility] Comment on above: Order Comment: 102.2 Performed By: #### L 100.0500, L500.2500 #### [facility] [address] [place], [address] MCV (RBC) [Entitic vol] 94.4 fL Normal 81-99 [facility] Comment on above: Order Comment: 102.2 Performed By: #### L 100.0500, L500.2500 #### [facility] [address] [place], [address] Platelet mean volume (Bld) [Entitic vol] 8.6 fL Normal 6.2-12.0 [facility] Comment on above: Order Comment: 102.2 Performed By: #### L 100.0500, L500.2500 #### [facility] [address] [place], [address] Platelets (Bld) [#/Vol] 187 10*3/uL Normal 150-450 [facility] Comment on above: Order Comment: 102.2 Performed By: #### L 100.0500, L500.2500 #### [facility] [address] [place], [address] RBC (Bld) [#/Vol] 3.78 10*6/uL Low 4.2-5.4 [facility] Comment on above: Order Comment: 102.2 Performed By: #### L 100.0500, L500.2500 #### [facility] [address] [place], [address] RDW SD 51.7 fl High 35.1-43.9 [facility] Comment on above: Order Comment: 102.2 Performed By: #### L 100.0500, L500.2500 #### [facility] [address] [place], [address] WBC (Bld) [#/Vol] 7.1 10*3/uL Normal 4.4-11.0 [facility] Comment on above: Order Comment: 102.2 Performed By: #### L 100.0500, L500.2500 #### [facility] [address] [place], [address] Carbon dioxide, total [Moles /volume] in Central venous bloodOrdered By: Balwinder Alves on 03-16-2025 CO2 [Moles/Vol] 28.0 mmol/L 21.0-32.0 [facility] Chloride assayOrdered By: Jen Alves on 03-16-2025 Chloride [Moles/Vol] 99 mmol/L 98-108 [facility] Erythrocyte distribution wid th ratioOrdered By: Balwinder Alves on 03-16-2025 Erythrocyte distribution width (RBC) [Ratio] 15.1 % High 11.6-14.6 [facility] Erythrocyte distribution wid th standard deviationOrdered By: Balwinder Alves on 03-16-2025 Erythrocyte distribution width (RBC) [Ratio] 51.7 fl High 35.1-43.9 [facility] Glomerular filtration rate ( GFR) estimation/1.73 sq m using serum, plasma, or whole bOrdered By: Balwinder Alves on 03-16-2025 GFR/1.73 sq M.predicted among non-blacks MDRD (S/P/Bld) [Vol rate/Area] 87 mL/min/{1.73_m2} >60 [facility] Comment on above: mL/min/1.73m2 CKD-EP I Creatinine Equation (2020) Hematocrit Auto (Bld) [Volum e fraction]Ordered By: Balwinder Alves on 03-16-2025 Hematocrit (Bld) [Volume fraction] 35.7 % Low 37-47 [facility] Hemoglobin measurementOrdere d By: Balwinder Alves on 03-16-2025 Hemoglobin (Bld) [Mass/Vol] 10.9 g/dL Low 12.0-15.0 [facility] MCV (mean corpuscular volume ) determinationOrdered By: Balwinder Alves on 03-16-2025 MCV (RBC) [Entitic vol] 94.4 fL 81-99 [facility] Mean corpuscular hemoglobin (MCH) determinationOrdered By: Balwinder Alves on 03-16-2025 MCH (RBC) [Entitic mass] 28.8 pg 27.0-32.0 [facility] Mean corpuscular hemoglobin concentration (MCHC) determinationOrdered By: Balwinder Alves on 03-16-2025 MCHC (RBC) [Mass/Vol] 30.5 g/dL Low 32-36 [facility] Mean platelet volume determi nationOrdered By: Balwinder Alves on 03-16-2025 Platelet mean volume (Bld) [Entitic vol] 8.6 fL 6.2-12.0 [facility] Platelet countOrdered By: Jen Alves on 03-16-2025 Platelets (Bld) [#/Vol] 187 10*3/uL 150-450 [facility] Potassium measurement (mass/ volume)Ordered By: Balwinder Alves on 03-16-2025 Potassium (Unsp spec) [Mass/Vol] 4.3 mmol/L 3.3-5.1 [facility] RBC Auto (Bld) [#/Vol]Ordere d By: Balwinder Alves on 03-16-2025 RBC (Bld) [#/Vol] 3.78 10*6/uL Low 4.2-5.4 [facility] Serum creatinine measurement (mass/volume)Ordered By: Balwinder Alves on 03-16-2025 Creatinine [Mass/Vol] 0.67 mg/dL Low 0.70-1.20 [facility] Serum glucose measurement (m ass/volume)Ordered By: Balwinder Alves on 03-16-2025 Glucose [Mass/Vol] 222 mg/dL High 70-99 [facility] Serum or plasma calcium jacqueline urement (mass/volume)Ordered By: Balwinder Alves on 03-16-2025 Calcium [Mass/Vol] 9.6 mg/dL 7.6-11.0 [facility] Serum or plasma urea nitroge n measurement (mass/volume)Ordered By: Balwinder Alves on 03-16-2025 Urea nitrogen [Mass/Vol] 9 mg/dL 4-19 [facility] Sodium levelOrdered By: Balwinder Alves on 03-16-2025 Sodium [Moles/Vol] 139 mmol/L 133-145 [facility] White blood cell (WBC) count Ordered By: Balwinder Alves on 03-16-2025 WBC (Bld) [#/Vol] 7.1 10*3/uL 4.4-11.0 [facility] Anion gap in Serum or Plasma Ordered By: Balwinder Alves on 03-15-2025 Anion gap [Moles/Vol] 9 mmol/L 5-15 [facility] BUN/creatinine ratioOrdered By: Balwinder Alves on 03-15-2025 Urea nitrogen/Creatinine [Mass ratio] 13.6 mg/mg 10- [facility] Basic Metabolic Profile (BMP )on 03-15-2025 BUN/CRE 13.6 RATIO Normal - [facility] Comment on above: Order Comment: 102.2 Performed By: #### L 100.0500, L500.2500 #### [facility] [address] [place], [address] Calcium [Mass/Vol] 9.6 mg/dL Normal 7.6-11.0 [facility] Comment on above: Order Comment: 102.2 Performed By: #### L 100.0500, L500.2500 #### [facility] [address] [place], [address] Chloride [Moles/Vol] 98 mmol/L Normal 98-108 [facility] Comment on above: Order Comment: 102.2 Performed By: #### L 100.0500, L500.2500 #### [facility] [address] [place], [address] CO2 [Moles/Vol] 30.1 mmol/L Normal 21.0-32.0 [facility] Comment on above: Order Comment: 102.2 Performed By: #### L 100.0500, L500.2500 #### [facility] [address] [place], [address] Creatinine [Mass/Vol] 0.79 mg/dL Normal 0.70-1.20 [facility] Comment on above: Order Comment: 102.2 Performed By: #### L 100.0500, L500.2500 #### [facility] [address] [place], [address] GAP 9 Normal 5-15 [facility] Comment on above: Order Comment: 102.2 Performed By: #### L 100.0500, L500.2500 #### [facility] [address] [place], [address] GFR/1.73 sq M.predicted among non-blacks MDRD (S/P/Bld) [Vol rate/Area] 75 mL/min/{1.73_m2} Normal >60 [facility] Comment on above: Order Comment: 102.2 Result Comment: mL/m in/1.73m2 CKD-EPI Creatinine Equation (2020) Performed By: #### L 100.0500, L500.2500 #### [facility] [address] [place], [address] Glucose [Mass/Vol] 188 mg/dL High 70-99 [facility] Comment on above: Order Comment: 102.2 Performed By: #### L 100.0500, L500.2500 #### [facility] [address] [place], [address] Potassium [Moles/Vol] 4.7 mmol/L Normal 3.3-5.1 [facility] Comment on above: Order Comment: 102.2 Performed By: #### L 100.0500, L500.2500 #### [facility] [address] [place], [address] Sodium [Moles/Vol] 137 mmol/L Normal 133-145 [facility] Comment on above: Order Comment: 102.2 Performed By: #### L 100.0500, L500.2500 #### [facility] [address] [place], [address] Urea nitrogen [Mass/Vol] 11 mg/dL Normal 4-19 [facility] Comment on above: Order Comment: 102.2 Performed By: #### L 100.0500, L500.2500 #### [facility] [address] [place], [address] CBC-Complete Blood Cnt No Di ffon 03-15-2025 Erythrocyte distribution width (RBC) [Ratio] 15.2 % High 11.6-14.6 [facility] Comment on above: Order Comment: 102.2 Performed By: #### L 100.0500, L500.2500 #### [facility] [address] [place], [address] Hematocrit (Bld) [Volume fraction] 36.2 % Low 37-47 [facility] Comment on above: Order Comment: 102.2 Performed By: #### L 100.0500, L500.2500 #### [facility] [address] [place], [address] Hemoglobin (Bld) [Mass/Vol] 11.1 g/dL Low 12.0-15.0 [facility] Comment on above: Order Comment: 102.2 Performed By: #### L 100.0500, L500.2500 #### [facility] [address] [place], [address] MCH (RBC) [Entitic mass] 28.9 pg Normal 27.0-32.0 [facility] Comment on above: Order Comment: 102.2 Performed By: #### L 100.0500, L500.2500 #### [facility] [address] [place], [address] MCHC (RBC) [Mass/Vol] 30.7 g/dL Low 32-36 [facility] Comment on above: Order Comment: 102.2 Performed By: #### L 100.0500, L500.2500 #### [facility] [address] [place], [address] MCV (RBC) [Entitic vol] 94.3 fL Normal 81-99 [facility] Comment on above: Order Comment: 102.2 Performed By: #### L 100.0500, L500.2500 #### [facility] [address] [place], [address] Platelet mean volume (Bld) [Entitic vol] 8.4 fL Normal 6.2-12.0 [facility] Comment on above: Order Comment: 102.2 Performed By: #### L 100.0500, L500.2500 #### [facility] [address] [place], [address] Platelets (Bld) [#/Vol] 177 10*3/uL Normal 150-450 [facility] Comment on above: Order Comment: 102.2 Performed By: #### L 100.0500, L500.2500 #### [facility] [address] [place], [address] RBC (Bld) [#/Vol] 3.84 10*6/uL Low 4.2-5.4 [facility] Comment on above: Order Comment: 102.2 Performed By: #### L 100.0500, L500.2500 #### [facility] [address] [place], [address] RDW SD 52.1 fl High 35.1-43.9 [facility] Comment on above: Order Comment: 102.2 Performed By: #### L 100.0500, L500.2500 #### [facility] [address] [place], [place], [address] WBC (Bld) [#/Vol] 7.1 10*3/uL Normal 4.4-11.0 [facility] Comment on above: Order Comment: 102.2 Performed By: #### L 100.0500, L500.2500 #### [facility] [address] [place], [place], [address] Carbon dioxide, total [Moles /volume] in Central venous bloodOrdered By: Balwinder Alves on 03-15-2025 CO2 [Moles/Vol] 30.1 mmol/L 21.0-32.0 [facility] Chloride assayOrdered By: Jen Alves on 03-15-2025 Chloride [Moles/Vol] 98 mmol/L 98-108 [facility] Erythrocyte distribution wid th ratioOrdered By: Balwinder Alves on 03-15-2025 Erythrocyte distribution width (RBC) [Ratio] 15.2 % High 11.6-14.6 [facility] Erythrocyte distribution wid th standard deviationOrdered By: Balwinder Alves on 03-15-2025 Erythrocyte distribution width (RBC) [Ratio] 52.1 fl High 35.1-43.9 [facility] Glomerular filtration rate ( GFR) estimation/1.73 sq m using serum, plasma, or whole bOrdered By: Balwinder Alves on 03-15-2025 GFR/1.73 sq M.predicted among non-blacks MDRD (S/P/Bld) [Vol rate/Area] 75 mL/min/{1.73_m2} >60 [facility] Comment on above: mL/min/1.73m2 CKD-EP I Creatinine Equation (2020) Hematocrit Auto (Bld) [Volum e fraction]Ordered By: Balwinder Alves on 03-15-2025 Hematocrit (Bld) [Volume fraction] 36.2 % Low 37-47 [facility] Hemoglobin measurementOrdere d By: Balwinder Alves on 03-15-2025 Hemoglobin (Bld) [Mass/Vol] 11.1 g/dL Low 12.0-15.0 [facility] MCV (mean corpuscular volume ) determinationOrdered By: Balwinder Alves on 03-15-2025 MCV (RBC) [Entitic vol] 94.3 fL 81-99 [facility] Mean corpuscular hemoglobin (MCH) determinationOrdered By: Balwinder Alves on 03-15-2025 MCH (RBC) [Entitic mass] 28.9 pg 27.0-32.0 [facility] Mean corpuscular hemoglobin concentration (MCHC) determinationOrdered By: Balwinder Alves on 03-15-2025 MCHC (RBC) [Mass/Vol] 30.7 g/dL Low 32-36 [facility] Mean platelet volume determi nationOrdered By: Balwinder Alves on 03-15-2025 Platelet mean volume (Bld) [Entitic vol] 8.4 fL 6.2-12.0 [facility] Platelet countOrdered By: Jen Alves on 03-15-2025 Platelets (Bld) [#/Vol] 177 10*3/uL 150-450 [facility] Potassium measurement (mass/ volume)Ordered By: Balwinder Alves on 03-15-2025 Potassium (Unsp spec) [Mass/Vol] 4.7 mmol/L 3.3-5.1 [facility] RBC Auto (Bld) [#/Vol]Ordere d By: Balwinder Alves on 03-15-2025 RBC (Bld) [#/Vol] 3.84 10*6/uL Low 4.2-5.4 [facility] Serum creatinine measurement (mass/volume)Ordered By: Balwinder Alves on 03-15-2025 Creatinine [Mass/Vol] 0.79 mg/dL 0.70-1.20 [facility] Serum glucose measurement (m ass/volume)Ordered By: Balwinder Alves on 03-15-2025 Glucose [Mass/Vol] 188 mg/dL High 70-99 [facility] Serum or plasma calcium jacqueline urement (mass/volume)Ordered By: Balwinder Alves on 03-15-2025 Calcium [Mass/Vol] 9.6 mg/dL 7.6-11.0 [facility] Serum or plasma urea nitroge n measurement (mass/volume)Ordered By: Balwinder Alves on 03-15-2025 Urea nitrogen [Mass/Vol] 11 mg/dL 4-19 [facility] Sodium levelOrdered By: Balwinder Alves on 03-15-2025 Sodium [Moles/Vol] 137 mmol/L 133-145 [facility] White blood cell (WBC) count Ordered By: Balwinder Alves on 03-15-2025 WBC (Bld) [#/Vol] 7.1 10*3/uL 4.4-11.0 [facility] Urine Cultureon 03-06-2025 [facility]RC #1 POSSIBLE E. COLI 0157. UNABLE TO CONFIRM, TESTING DISCONTINUED AT [facility]. Urine Culture Copy of report sent to Infection Control Printer MS#[id number] 03/04/25 1000 ANDREA. Urine Culture RESULTS CALLED TO XAVIER Flowers 03/06/25 1412 Lorrie Patterson. REPORT READ BACK BY . Urine Culture Urine Culture ESBL Escherichia coli [place] Count 80,000-100,000 MARKER ESBL producing OrganismA MARKER [...] S Tobramycin Islt PREM <=1 S Normal [facility] Comment on above: Performed By: #### L 500.2500, L500.3400, L100.0500 #### [facility] [address] [place], [place] [address] [place], [address] Bilirubin Test strip Ql (U)O rdered By: Balwinder Alves on 03-02-2025 Bilirubin Ql (U) Negative Negative [facility] Ketones Test strip Ql (U)Ord ered By: Balwinder Alves on 03-02-2025 Ketones Ql (U) Negative Negative [facility] Nitrite Test strip Ql (U)Ord ered By: Balwinder Alves on 03-02-2025 Nitrite Ql (U) Positive High Negative [facility] Protein Test strip Ql (U)Ord ered By: Balwinder Alves on 03-02-2025 Protein Ql (U) 30 mg/dl High Negative [facility] Urinalysis, Routine (Dipstic k)on 03-02-2025 BILIRUBIN URINE Negative Normal Negative [facility] Comment on above: Order Comment: 102.2 Performed By: #### L 100.0500, L500.2500 #### [facility] [address] [place], [address] Clarity (U) Sl. Cloudy Normal Clear [facility] Comment on above: Order Comment: 102.2 Performed By: #### L 100.0500, L500.2500 #### [facility] [address] [place], [address] Color (U) Yellow Normal Yellow [facility] Comment on above: Order Comment: 102.2 Performed By: #### L 100.0500, L500.2500 #### [facility] [address] [place], [address] GLUCOSE, UR Normal Normal Normal [facility] Comment on above: Order Comment: 102.2 Performed By: #### L 100.0500, L500.2500 #### [facility] [address] [place], [address] KETONE UR Negative Normal Negative [facility] Comment on above: Order Comment: 102.2 Performed By: #### L 100.0500, L500.2500 #### [facility] [address] [place], [address] LEUK ESTERASE 500 /ul Abnormal Negative [facility] Comment on above: Order Comment: 102.2 Performed By: #### L 100.0500, L500.2500 #### [facility] [address] [place], [address] Nitrite Ql (U) Positive Abnormal Negative [facility] Comment on above: Order Comment: 102.2 Performed By: #### L 100.0500, L500.2500 #### [facility] [address] [place], [address] OCCULT BLOOD-UR 50 /ul Abnormal Negative [facility] Comment on above: Order Comment: 102.2 Performed By: #### L 100.0500, L500.2500 #### [facility] [address] [place], [address] pH UR 6.0 Normal 5.0 - 8.0 [facility] Comment on above: Order Comment: 102.2 Performed By: #### L 100.0500, L500.2500 #### [facility] [address] [place], [address] PROT DIPSTX 30 mg/dl Abnormal Negative [facility] Comment on above: Order Comment: 102.2 Performed By: #### L 100.0500, L500.2500 #### [facility] [address] [place], [address] SP.GR. DIPSTX 1.010 Normal 1.002-1.030 [facility] Comment on above: Order Comment: 102.2 Performed By: #### L 100.0500, L500.2500 #### [facility] [address] [place], [address] UROBILI Normal Normal Normal [facility] Comment on above: Order Comment: 102.2 Performed By: #### L 100.0500, L500.2500 #### [facility] [address] [place], [address] Urine clarityOrdered By: Javed Alves on 03-02-2025 Clarity (U) Sl. Cloudy Clear [facility] Urine color determinationOrd ered By: Balwinder Alves on 03-02-2025 Color (U) Yellow Yellow [facility] Urine cultureOrdered By: Javed Alves on 03-02-2025 Bacteria identified Cx Nom (U) ESBL Escherichia coli Abnormal [facility] Urine glucose detectionOrder ed By: Balwinder Alves on 03-02-2025 Glucose Ql (U) Normal mg/dl Normal [facility] Urine leukocyte esterase det ection by dipstickOrdered By: Balwinder Alves on 03-02-2025 Leukocyte esterase Test strip Ql (U) 500 /ul High Negative [facility] Urine pHOrdered By: Balwinder blackman on 03-02-2025 pH (U) 6.0 [pH] 5.0 - 8.0 [facility] Urine specific gravity measu rementOrdered By: Balwinder Alves on 03-02-2025 Specific gravity (U) [Rel density] 1.010 1.002-1.030 [facility] Urine urobilinogen measureme ntOrdered By: Balwinder Alves on 03-02-2025 Urobilinogen Ql (U) Normal mg/dl Normal [facility] Urine Cultureon 02-10-2025 [facility] Copy of report sent to Infection Control Printer [id number] 02/09/25 0890 ANDREA. Urine Culture RESULTS CALLED TO AUSTEN GARCIA 02/09/25 0813 Alesia Barrera. REPORT READ BACK SAME. Urine Culture Urine Culture Urine Culture ESBL Escherichia coli [place] Count >100,000 MARKER ESBL producing OrganismA MARKER [...] S Tobramycin Islt PREM <=1 S Normal [facility] Comment on above: Performed By: #### L 500.2500, L500.3400, L100.0500 #### [facility] [address] [place], [address] Bilirubin Test strip Ql (U)O rdered By: Balwinder Alves on 02-07-2025 Bilirubin Ql (U) Negative Negative [facility] Ketones Test strip Ql (U)Ord ered By: Balwinder Alves on 02-07-2025 Ketones Ql (U) Negative Negative [facility] Nitrite Test strip Ql (U)Ord ered By: Balwinder Alves on 02-07-2025 Nitrite Ql (U) Positive High Negative [facility] Protein Test strip Ql (U)Ord ered By: Balwinder Alves on 02-07-2025 Protein Ql (U) 15 mg/dl High Negative [facility] Urinalysis, Routine (Dipstic k)on 02-07-2025 Clarity (U) Clear Normal Clear [facility] Comment on above: Order Comment: 102.2 Performed By: #### L 500.2500, L500.3400, L100.0500 #### [facility] [address] [place], [address] Color (U) Yellow Normal Yellow [facility] Comment on above: Order Comment: 102.2 Performed By: #### L 500.2500, L500.3400, L100.0500 #### [facility] [address] [place], [address] BILIRUBIN URINE Negative Normal Negative [facility] Comment on above: Order Comment: 102.2 Performed By: #### L 500.2500, L500.3400, L100.0500 #### [facility] [address] [place], [address] GLUCOSE, UR Normal Normal Normal [facility] Comment on above: Order Comment: 102.2 Performed By: #### L 500.2500, L500.3400, L100.0500 #### [facility] [address] [place], [address] KETONE UR Negative Normal Negative [facility] Comment on above: Order Comment: 102.2 Performed By: #### L 500.2500, L500.3400, L100.0500 #### [facility] [address] [place], [address] LEUK ESTERASE 500 /ul Abnormal Negative [facility] Comment on above: Order Comment: 102.2 Performed By: #### L 500.2500, L500.3400, L100.0500 #### [facility] [address] [place], [address] Nitrite Ql (U) Positive Abnormal Negative [facility] Comment on above: Order Comment: 102.2 Performed By: #### L 500.2500, L500.3400, L100.0500 #### [facility] [address] [place], [address] OCCULT BLOOD-UR 25 /ul Abnormal Negative [facility] Comment on above: Order Comment: 102.2 Performed By: #### L 500.2500, L500.3400, L100.0500 #### [facility] [address] [place], [address] pH UR 6.5 Normal 5.0 - 8.0 [facility] Comment on above: Order Comment: 102.2 Performed By: #### L 500.2500, L500.3400, L100.0500 #### [facility] [address] [place], [address] PROT DIPSTX 15 mg/dl Abnormal Negative [facility] Comment on above: Order Comment: 102.2 Performed By: #### L 500.2500, L500.3400, L100.0500 #### [facility] [address] [place], [address] SP.GR. DIPSTX 1.005 Normal 1.002-1.030 [facility] Comment on above: Order Comment: 102.2 Performed By: #### L 500.2500, L500.3400, L100.0500 #### [facility] [address] [place], [address] UROBILI Normal Normal Normal [facility] Comment on above: Order Comment: 102.2 Performed By: #### L 500.2500, L500.3400, L100.0500 #### [facility] [address] [place], [address] Urine clarityOrdered By: Javed Alves on 02-07-2025 Clarity (U) Clear Clear [facility] Urine color determinationOrd ered By: Balwinder Alves on 02-07-2025 Color (U) Yellow Yellow [facility] Urine cultureOrdered By: Javed Alves on 02-07-2025 Bacteria identified Cx Nom (U) ESBL Escherichia coli Abnormal [facility] Urine glucose detectionOrder ed By: Balwinder Alves on 02-07-2025 Glucose Ql (U) Normal mg/dl Normal [facility] Urine leukocyte esterase det ection by dipstickOrdered By: Balwinder Alves on 02-07-2025 Leukocyte esterase Test strip Ql (U) 500 /ul High Negative [facility] Urine pHOrdered By: Balwinder blackman on 02-07-2025 pH (U) 6.5 [pH] 5.0 - 8.0 [facility] Urine specific gravity measu rementOrdered By: Balwinder Alves on 02-07-2025 Specific gravity (U) [Rel density] 1.005 1.002-1.030 [facility] Urine urobilinogen measureme ntOrdered By: Balwinder Alves on 02-07-2025 Urobilinogen Ql (U) Normal mg/dl Normal [facility] Urine Cultureon 01-27-2025 [facility] STRAIGHT CATH #1 Possible E.coli 0157. Confirmation testing unable to be performed, test discontinued at [facility]. Urine Culture RESULTS CALLED TO HEATHER Herrera 01/27/25 Nicole Patterson. REPORT READ BACK BY . Urine Culture Copy of report sent to Infection Control Printer [id number] 01/27/25 1041 ESSENCE. Urine Culture ESBL Escherichia coli [place] Count 80,000-100,000 MARKER ESBL producing OrganismA MARKER ESBL producing OrganismA [place] Count 50,000-80,000 Proteus mirabilis Amikacin Islt PREM [...] TMP SMX Islt PREM <=20 S Normal [facility] Comment on above: Performed By: #### L 500.2500, L500.3400, L100.0500 #### [facility] [address] [place], [address] Urinalysis, Completeon 01-24 BILIRUBIN URINE Negative Normal Negative [facility] Comment on above: Order Comment: 102.2 Performed By: #### L 500.2500, L500.3400, L100.0500 #### [facility] [address] [place], [address] Clarity (U) Sl. Cloudy Normal Clear [facility] Comment on above: Order Comment: 102.2 Performed By: #### L 500.2500, L500.3400, L100.0500 #### [facility] [address] [place], [address] Color (U) Yellow Normal Yellow [facility] Comment on above: Order Comment: 102.2 Performed By: #### L 500.2500, L500.3400, L100.0500 #### [facility] [address] [place], [address] GLUCOSE, UR Normal Normal Normal [facility] Comment on above: Order Comment: 102.2 Performed By: #### L 500.2500, L500.3400, L100.0500 #### [facility] [address] [place], [address] KETONE UR Negative Normal Negative [facility] Comment on above: Order Comment: 102.2 Performed By: #### L 500.2500, L500.3400, L100.0500 #### [facility] [address] [place], [address] LEUK ESTERASE 500 /ul Abnormal Negative [facility] Comment on above: Order Comment: 102.2 Performed By: #### L 500.2500, L500.3400, L100.0500 #### [facility] [address] [place], [address] Nitrite Ql (U) Positive Abnormal Negative [facility] Comment on above: Order Comment: 102.2 Performed By: #### L 500.2500, L500.3400, L100.0500 #### [facility] [address] [place], [address] OCCULT BLOOD-UR 50 /ul Abnormal Negative [facility] Comment on above: Order Comment: 102.2 Performed By: #### L 500.2500, L500.3400, L100.0500 #### [facility] [address] [place], [address] pH UR 6.5 Normal 5.0 - 8.0 [facility] Comment on above: Order Comment: 102.2 Performed By: #### L 500.2500, L500.3400, L100.0500 #### [facility] [address] [place], [address] PROT DIPSTX 15 mg/dl Abnormal Negative [facility] Comment on above: Order Comment: 102.2 Performed By: #### L 500.2500, L500.3400, L100.0500 #### [facility] [address] [place], [address] SP.GR. DIPSTX 1.010 Normal 1.002-1.030 [facility] Comment on above: Order Comment: 102.2 Performed By: #### L 500.2500, L500.3400, L100.0500 #### [facility] [address] [place], [address] UROBILI Normal Normal Normal [facility] Comment on above: Order Comment: 102.2 Performed By: #### L 500.2500, L500.3400, L100.0500 #### [facility] [address] [place], [address] Bilirubin Test strip Ql (U)O rdered By: Balwinder Alves on 01-23-2025 Bilirubin Ql (U) Negative Negative [facility] Epithelial cells.squamous LM Ql (Urine sed)Ordered By: Balwinder Alves on 01-23-2025 Epithelial cells.squamous LM.HPF (Urine sed) [#/Area] 0 /[HPF] 5-10 [facility] Glucose Ql (U)Ordered By: Jen Alves on 01-23-2025 Urine Glucose (UA) Normal mg/dl Normal [facility] Ketones Test strip Ql (U)Ord ered By: Balwinder Alves on 01-23-2025 Ketones Ql (U) Negative Negative [facility] Microscopic analysis of urin e for red blood cells (RBC)Ordered By: Balwinder Alves on 01-23-2025 Microscopic analysis of urine for red blood cells (RBC) 0-5 SEEN /hpf 0-5 [facility] Urine RBC 0-5 SEEN /hpf 0-5 [facility] Mucus LM Ql (Urine sed)Order ed By: Balwinder Alves on 01-23-2025 Mucus Ql (Urine sed) 0 SEEN /hpf [facility] Nitrite Test strip Ql (U)Ord ered By: Balwinder Alves on 01-23-2025 Nitrite Ql (U) Positive High Negative [facility] Protein Test strip Ql (U)Ord ered By: Balwinder Alvse on 01-23-2025 Protein Ql (U) 15 mg/dl High Negative [facility] Squamous epithelial cells de tection in urine sediment by light microscopyOrdered By: Balwinder Alves on 01-23-2025 Epithelial cells.squamous LM Ql (Urine sed) 0-5 SEEN /hpf 5-10 [facility] Urine blood detectionOrdered By: Balwinder Alves on 01-23-2025 Urine Occult Blood 50 /ul High Negative [facility] Urine clarityOrdered By: Javed Alves on 01-23-2025 Clarity (U) Sl. Cloudy Clear [facility] Urine color determinationOrd ered By: Balwinder Alves on 01-23-2025 Color (U) Yellow Yellow [facility] Urine cultureOrdered By: Javed Alves on 01-23-2025 Bacteria identified Cx Nom (U) ESBL Escherichia coli Abnormal [facility] Bacteria identified Cx Nom (U) Proteus mirabilis Abnormal [facility] Urine glucose detectionOrder ed By: Balwinder Alves on 01-23-2025 Glucose Ql (U) Normal mg/dl Normal [facility] Urine leukocyte esterase det ection by dipstickOrdered By: Balwinder Alves on 01-23-2025 Leukocyte esterase Test strip Ql (U) 500 /ul High Negative [facility] Urine pHOrdered By: Balwinder blackman on 01-23-2025 pH (U) 6.5 [pH] 5.0 - 8.0 [facility] Urine sediment bacteria coun t by microscopy (number/high power field)Ordered By: Balwinder Alves on 01-23-2025 Bacteria LM.HPF (Urine sed) [#/Area] 2 /[HPF] None Seen [facility] Urine specific gravity measu rementOrdered By: Balwinder Alves on 01-23-2025 Specific gravity (U) [Rel density] 1.010 1.002-1.030 [facility] Urine urobilinogen measureme ntOrdered By: Balwinder Alves on 01-23-2025 Urobilinogen Ql (U) Normal mg/dl Normal [facility] Urobilinogen Ql (U)Ordered B y: Balwinder Alves on 01-23-2025 Urine Urobilinogen Normal mg/dl Normal [facility] White blood cell countOrdere d By: Balwinder Alves on 01-23-2025 Urine WBC 5-10 SEEN /hpf 0-5 [facility] White blood cell count 5-10 SEEN /hpf 0-5 [facility] Urine Cultureon 01-13-2025 [facility] #1 POSSIBLE ECOLI 0157. Unable to send to [facility] for confirmation testing due to new [facility] policies regarding serotyping and virulence profiling. Urine Culture Copy of report sent to Infection Control Printer [id number] 01/11/25 5918 ASNIPES. ESBL Escherichia coli [place] Count 50,000-80,000 MARKER ESBL producing OrganismA MARKER ESBL producing OrganismA [place] Count 50,000-80,000 Escherichia coli [place] Count 50,000-80,000 ESBL Escherichia coli: REACTION Proteus [...] TMP SMX Islt PREM <=20 S Normal [facility] Comment on above: Performed By: #### L 500.2500, L500.3400, L100.0500 #### [facility] [address] [place], [address] Bilirubin Test strip Ql (U)O rdered By: Balwinder Alves on 01-09-2025 Bilirubin Ql (U) Negative Negative [facility] Glucose Ql (U)Ordered By: Jen Alves on 01-09-2025 Urine Glucose (UA) Normal mg/dl Normal [facility] Ketones Test strip Ql (U)Ord ered By: Balwinder Alves on 01-09-2025 Ketones Ql (U) Negative Negative [facility] Nitrite Test strip Ql (U)Ord ered By: Balwinder Alves on 01-09-2025 Nitrite Ql (U) Positive High Negative [facility] Protein Test strip Ql (U)Ord ered By: Balwinder Alves on 01-09-2025 Protein Ql (U) 30 mg/dl High Negative [facility] Urinalysis, Routine (Dipstic k)on 01-09-2025 BILIRUBIN URINE Negative Normal Negative [facility] Comment on above: Order Comment: 102.2 Performed By: #### L 500.2500, L500.3400, L100.0500 #### [facility] [address] [place], [address] Clarity (U) Cloudy Normal Clear [facility] Comment on above: Order Comment: 102.2 Performed By: #### L 500.2500, L500.3400, L100.0500 #### [facility] [address] [place], [address] Color (U) Yellow Normal Yellow [facility] Comment on above: Order Comment: 102.2 Performed By: #### L 500.2500, L500.3400, L100.0500 #### [facility] [address] [place], [address] GLUCOSE, UR Normal Normal Normal [facility] Comment on above: Order Comment: 102.2 Performed By: #### L 500.2500, L500.3400, L100.0500 #### [facility] [address] [place], [address] KETONE UR Negative Normal Negative [facility] Comment on above: Order Comment: 102.2 Performed By: #### L 500.2500, L500.3400, L100.0500 #### [facility] [address] [place], [address] LEUK ESTERASE 500 /ul Abnormal Negative [facility] Comment on above: Order Comment: 102.2 Performed By: #### L 500.2500, L500.3400, L100.0500 #### [facility] [address] [place], [address] Nitrite Ql (U) Positive Abnormal Negative [facility] Comment on above: Order Comment: 102.2 Performed By: #### L 500.2500, L500.3400, L100.0500 #### [facility] [address] [place], [address] OCCULT BLOOD-UR 150 /ul Abnormal Negative [facility] Comment on above: Order Comment: 102.2 Performed By: #### L 500.2500, L500.3400, L100.0500 #### [facility] [address] [place], [address] pH UR 6.5 Normal 5.0 - 8.0 [facility] Comment on above: Order Comment: 102.2 Performed By: #### L 500.2500, L500.3400, L100.0500 #### [facility] [address] [place], [address] PROT DIPSTX 30 mg/dl Abnormal Negative [facility] Comment on above: Order Comment: 102.2 Performed By: #### L 500.2500, L500.3400, L100.0500 #### [facility] [address] [place], [address] SP.GR. DIPSTX 1.010 Normal 1.002-1.030 [facility] Comment on above: Order Comment: 102.2 Performed By: #### L 500.2500, L500.3400, L100.0500 #### [facility] [address] [place], [address] UROBILI Normal Normal Normal [facility] Comment on above: Order Comment: 102.2 Performed By: #### L 500.2500, L500.3400, L100.0500 #### [facility] [place], [address] Urine blood detectionOrdered By: Balwinder Alves on 01-09-2025 Urine Occult Blood 150 /ul High Negative [facility] Urine clarityOrdered By: Javed Alves on 01-09-2025 Clarity (U) Cloudy Clear [facility] Urine color determinationOrd ered By: Balwinder Alves on 01-09-2025 Color (U) Yellow Yellow [facility] Urine cultureOrdered By: Javed Alves on 01-09-2025 Bacteria identified Cx Nom (U) ESBL Escherichia coli Abnormal [facility] Bacteria identified Cx Nom (U) Escherichia coli Abnormal [facility] Bacteria identified Cx Nom (U) Proteus mirabilis Abnormal [facility] Urine glucose detectionOrder ed By: Balwinder Alves on 01-09-2025 Glucose Ql (U) Normal mg/dl Normal [facility] Urine leukocyte esterase det ection by dipstickOrdered By: Balwinder Alves on 01-09-2025 Leukocyte esterase Test strip Ql (U) 500 /ul High Negative [facility] Urine pHOrdered By: Balwinder blackman on 01-09-2025 pH (U) 6.5 [pH] 5.0 - 8.0 [facility] Urine specific gravity measu rementOrdered By: Balwinder Alves on 01-09-2025 Specific gravity (U) [Rel density] 1.010 1.002-1.030 [facility] Urine urobilinogen measureme ntOrdered By: Balwinder Alves on 01-09-2025 Urobilinogen Ql (U) Normal mg/dl Normal [facility] Urobilinogen Ql (U)Ordered B y: Balwinder Alves on 01-09-2025 Urine Urobilinogen Normal mg/dl Normal [facility] Urine Cultureon 01-07-2025 [facility] #2 Possible E.coli 0157. Unable to send to [facility] for confirmation testing due to new [facility] policies regarding serotyping and virulence profiling. Urine Culture Copy of report sent to Infection Control Printer [id number] 01/06/25 1319 ASNIPES. Urine Culture RESULTS CALLED TO TRISH BOYCE 01/06/25 1321 Alesia Barrera. REPORT READ BACK . Proteus mirabilis [place] Count 50,000-80,000 ESBL Escherichia coli ESBL Escherichia [...] <=0.25 Tobramycin Islt PREM <=1 S Normal [facility] Comment on above: Performed By: #### L 500.2500, L500.3400, L100.0500 #### [facility] [address] [place], [address] Urinalysis, Routine (Dipstic k)on 01-03-2025 BILIRUBIN URINE Negative Normal Negative [facility] Comment on above: Order Comment: 102.2 Performed By: #### L 500.2500, L500.3400, L100.0500 #### [facility] [address] [place], [address] Clarity (U) Sl. Cloudy Normal Clear [facility] Comment on above: Order Comment: 102.2 Performed By: #### L 500.2500, L500.3400, L100.0500 #### [facility] [address] [place], [address] Color (U) Yellow Normal Yellow [facility] Comment on above: Order Comment: 102.2 Performed By: #### L 500.2500, L500.3400, L100.0500 #### [facility] [address] [place], [address] GLUCOSE, UR Normal Normal Normal [facility] Comment on above: Order Comment: 102.2 Performed By: #### L 500.2500, L500.3400, L100.0500 #### [facility] [address] [place], [address] KETONE UR Negative Normal Negative [facility] Comment on above: Order Comment: 102.2 Performed By: #### L 500.2500, L500.3400, L100.0500 #### [facility] [address] [place], [address] LEUK ESTERASE 500 /ul Abnormal Negative [facility] Comment on above: Order Comment: 102.2 Performed By: #### L 500.2500, L500.3400, L100.0500 #### [facility] [address] [place], [address] Nitrite Ql (U) Positive Abnormal Negative [facility] Comment on above: Order Comment: 102.2 Performed By: #### L 500.2500, L500.3400, L100.0500 #### [facility] [address] [place], [address] OCCULT BLOOD-UR 150 /ul Abnormal Negative [facility] Comment on above: Order Comment: 102.2 Performed By: #### L 500.2500, L500.3400, L100.0500 #### [facility] [address] [place], [address] pH UR 6.5 Normal 5.0 - 8.0 [facility] Comment on above: Order Comment: 102.2 Performed By: #### L 500.2500, L500.3400, L100.0500 #### [facility] [address] [place], [address] PROT DIPSTX 30 mg/dl Abnormal Negative [facility] Comment on above: Order Comment: 102.2 Performed By: #### L 500.2500, L500.3400, L100.0500 #### [facility] [address] [place], [address] SP.GR. DIPSTX 1.010 Normal 1.002-1.030 [facility] Comment on above: Order Comment: 102.2 Performed By: #### L 500.2500, L500.3400, L100.0500 #### [facility] [address] [place], [address] UROBILI Normal Normal Normal [facility] Comment on above: Order Comment: 102.2 Performed By: #### L 500.2500, L500.3400, L100.0500 #### [facility] [address] [place], [address] Bilirubin Test strip Ql (U)O rdered By: Balwinder Alves on 01-02-2025 Bilirubin Ql (U) Negative Negative [facility] Glucose Ql (U)Ordered By: Jen Alves on 01-02-2025 Urine Glucose (UA) Normal mg/dl Normal [facility] Ketones Test strip Ql (U)Ord ered By: Balwinder Alves on 01-02-2025 Ketones Ql (U) Negative Negative [facility] Nitrite Test strip Ql (U)Ord ered By: Balwinder Alves on 01-02-2025 Nitrite Ql (U) Positive High Negative [facility] Protein Test strip Ql (U)Ord ered By: Balwinder Alves on 01-02-2025 Protein Ql (U) 30 mg/dl High Negative [facility] Urine blood detectionOrdered By: Balwinder Alves on 01-02-2025 Urine Occult Blood 150 /ul High Negative [facility] Urine clarityOrdered By: Javed Alves on 01-02-2025 Clarity (U) Sl. Cloudy Clear [facility] Urine color determinationOrd ered By: Balwinder Alves on 01-02-2025 Color (U) Yellow Yellow [facility] Urine cultureOrdered By: Javed Alves on 01-02-2025 Bacteria identified Cx Nom (U) Proteus mirabilis Abnormal [facility] Bacteria identified Cx Nom (U) ESBL Escherichia coli Abnormal [facility] Urine glucose detectionOrder ed By: Balwinder Alves on 01-02-2025 Glucose Ql (U) Normal mg/dl Normal [facility] Urine leukocyte esterase det ection by dipstickOrdered By: Balwinder Alves on 01-02-2025 Leukocyte esterase Test strip Ql (U) 500 /ul High Negative [facility] Urine pHOrdered By: Balwinder blackman on 01-02-2025 pH (U) 6.5 [pH] 5.0 - 8.0 [facility] Urine specific gravity measu rementOrdered By: Balwinder Alves on 01-02-2025 Specific gravity (U) [Rel density] 1.010 1.002-1.030 [facility] Urine urobilinogen measureme ntOrdered By: Balwinder Alves on 01-02-2025 Urobilinogen Ql (U) Normal mg/dl Normal [facility] Urobilinogen Ql (U)Ordered B y: Balwinder Alves on 01-02-2025 Urine Urobilinogen Normal mg/dl Normal [facility] Absolute lymphocyte countOrd ered By: Balwinder Alves on 12-26-2024 Lymphocytes Auto (Unsp spec) [#/Vol] 1.77 10*3/uL 0.83-4.51 [facility] Absolute neutrophil countOrd ered By: Balwinder Alves on 12-26-2024 Neutrophils (Bld) [#/Vol] 4.6 10*3/uL 2.0-7.7 [facility] Anion gap in Serum or Plasma Ordered By: Balwinder Alves on 12-26-2024 Anion gap [Moles/Vol] 9 mmol/L 5-15 [facility] Automated lymphocyte count a s percentage of total leukocytesOrdered By: Balwinder Alves on 12-26-2024 Lymphocytes/100 WBC Auto (Unsp spec) 24.8 % 19-41 [facility] BUN/creatinine ratioOrdered By: Balwinder Alves on 12-26-2024 Urea nitrogen/Creatinine [Mass ratio] 12.2 mg/mg 10- [facility] Basic Metabolic Profile (BMP )on 12-26-2024 BUN/CRE 12.2 RATIO Normal - [facility] Comment on above: Order Comment: 102-2 Performed By: #### L 500.2500, L100.0100 #### [facility] [address] [place], [address] Calcium [Mass/Vol] 9.1 mg/dL Normal 7.6-11.0 [facility] Comment on above: Order Comment: 102-2 Performed By: #### L 500.2500, L100.0100 #### [facility] [address] [place], [address] Chloride [Moles/Vol] 99 mmol/L Normal 98-108 [facility] Comment on above: Order Comment: 102-2 Performed By: #### L 500.2500, L100.0100 #### [facility] [address] [place], [address] CO2 [Moles/Vol] 29.0 mmol/L Normal 21.0-32.0 [facility] Comment on above: Order Comment: 102-2 Performed By: #### L 500.2500, L100.0100 #### [facility] [address] [place], [address] Creatinine [Mass/Vol] 0.67 mg/dL Low 0.70-1.20 [facility] Comment on above: Order Comment: 102-2 Performed By: #### L 500.2500, L100.0100 #### [facility] [address] [place], [address] GAP 9 Normal 5-15 [facility] Comment on above: Order Comment: 102-2 Performed By: #### L 500.2500, L100.0100 #### [facility] [address] [place], [address] GFR/1.73 sq M.predicted among non-blacks MDRD (S/P/Bld) [Vol rate/Area] 88 mL/min/{1.73_m2} Normal >60 [facility] Comment on above: Order Comment: 102-2 Result Comment: mL/m in/1.73m2 CKD-EPI Creatinine Equation (2020) Performed By: #### L 500.2500, L100.0100 #### [facility] [address] [place], [address] Glucose [Mass/Vol] 215 mg/dL High 70-99 [facility] Comment on above: Order Comment: 102-2 Performed By: #### L 500.2500, L100.0100 #### [facility] [address] [place], [address] Potassium [Moles/Vol] 4.6 mmol/L Normal 3.3-5.1 [facility] Comment on above: Order Comment: 102-2 Performed By: #### L 500.2500, L100.0100 #### [facility] [address] [place], [address] Sodium [Moles/Vol] 137 mmol/L Normal 133-145 [facility] Comment on above: Order Comment: 102-2 Performed By: #### L 500.2500, L100.0100 #### [facility] [address] [place], [address] Urea nitrogen [Mass/Vol] 8 mg/dL Normal 4-19 [facility] Comment on above: Order Comment: 102-2 Performed By: #### L 500.2500, L100.0100 #### [facility] [address] [place], [address] Basophil percentageOrdered B y: Balwinder Alves on 12-26-2024 Basophils/100 WBC (Bld) 0.6 % 0-1 [facility] CBC W/Diff, Automatedon 03-2 -2024 Absolute Lymph 1.77 X10 3/uL Normal 0.83-4.51 [facility] Comment on above: Order Comment: 102-2 Performed By: #### L 500.2500, L100.0100 #### [facility] [address] [place], [address] Absolute Neut 4.6 X10 3/uL Normal 2.0-7.7 [facility] Comment on above: Order Comment: 102-2 Performed By: #### L 500.2500, L100.0100 #### [facility] [address] [place], [address] Basophils/100 WBC (Bld) 0.6 % Normal 0-1 [facility] Comment on above: Order Comment: 102-2 Performed By: #### L 500.2500, L100.0100 #### [facility] [address] [place], [address] Eosinophils/100 WBC (Bld) 2.9 % Normal 0-5 [facility] Comment on above: Order Comment: 102-2 Performed By: #### L 500.2500, L100.0100 #### [facility] [address] [place], [address] Erythrocyte distribution width (RBC) [Ratio] 13.9 % Normal 11.6-14.6 [facility] Comment on above: Order Comment: 102-2 Performed By: #### L 500.2500, L100.0100 #### [facility] [address] [place], [address] Hematocrit (Bld) [Volume fraction] 35.6 % Low 37-47 [facility] Comment on above: Order Comment: 102-2 Performed By: #### L 500.2500, L100.0100 #### [facility] [address] [place], [address] Hemoglobin (Bld) [Mass/Vol] 10.9 g/dL Low 12.0-15.0 [facility] Comment on above: Order Comment: 102-2 Performed By: #### L 500.2500, L100.0100 #### [facility] [address] [place], [address] IG% 0.700 Normal 0.0-0.9 [facility] Comment on above: Order Comment: 102-2 Result Comment: IG% - Immature Granulocytes (promyelocytes, myelocytes and metamyelocytes) > 1% indicates that a LEFT SHIFT is Present. Performed By: #### L 500.2500, L100.0100 #### [facility] [address] [place], [address] Lymphocytes/100 WBC (Bld) 24.8 % Normal 19-41 [facility] Comment on above: Order Comment: 102-2 Performed By: #### L 500.2500, L100.0100 #### [facility] [address] [place], [address] MCH (RBC) [Entitic mass] 28.8 pg Normal 27.0-32.0 [facility] Comment on above: Order Comment: 102-2 Performed By: #### L 500.2500, L100.0100 #### [facility] [address] [place], [address] MCHC (RBC) [Mass/Vol] 30.6 g/dL Low 32-36 [facility] Comment on above: Order Comment: 102-2 Performed By: #### L 500.2500, L100.0100 #### [facility] [address] [place], [address] MCV (RBC) [Entitic vol] 93.9 fL Normal 81-99 [facility] Comment on above: Order Comment: 102-2 Performed By: #### L 500.2500, L100.0100 #### [facility] [address] [place], [address] Monocytes/100 WBC (Bld) 6.3 % Normal 0-10 [facility] Comment on above: Order Comment: 102-2 Performed By: #### L 500.2500, L100.0100 #### [facility] [address] [place], [address] Neutrophils/100 WBC (Bld) 64.7 % Normal 47-70 [facility] Comment on above: Order Comment: 102-2 Performed By: #### L 500.2500, L100.0100 #### [facility] [address] [place], [address] Nucleated RBC (Bld) [#/Vol] 0 10*3/uL Normal 0-5 [facility] Comment on above: Order Comment: 102-2 Performed By: #### L 500.2500, L100.0100 #### [facility] [address] [place], [address] Platelet mean volume (Bld) [Entitic vol] 8.6 fL Normal 6.2-12.0 [facility] Comment on above: Order Comment: 102-2 Performed By: #### L 500.2500, L100.0100 #### [facility] [address] [place], [address] Platelets (Bld) [#/Vol] 221 10*3/uL Normal 150-450 [facility] Comment on above: Order Comment: 102-2 Performed By: #### L 500.2500, L100.0100 #### [facility] [address] [place], [address] RBC (Bld) [#/Vol] 3.79 10*6/uL Low 4.2-5.4 [facility] Comment on above: Order Comment: 102-2 Performed By: #### L 500.2500, L100.0100 #### [facility] [address] [place], [address] RDW SD 47.6 fl High 35.1-43.9 [facility] Comment on above: Order Comment: 102-2 Performed By: #### L 500.2500, L100.0100 #### [facility] [address] [place], [address] WBC (Bld) [#/Vol] 7.1 10*3/uL Normal 4.4-11.0 [facility] Comment on above: Order Comment: 102-2 Performed By: #### L 500.2500, L100.0100 #### [facility] [address] [place], [address] Carbon dioxide, total [Moles /volume] in Central venous bloodOrdered By: Balwinder Alves on 12-26-2024 CO2 [Moles/Vol] 29.0 mmol/L 21.0-32.0 [facility] Chloride assayOrdered By: Jen Alves on 12-26-2024 Chloride [Moles/Vol] 99 mmol/L 98-108 [facility] Eosinophil percentageOrdered By: Balwinder Alves on 12-26-2024 Eosinophils/100 WBC (Bld) 2.9 % 0-5 [facility] Erythrocyte distribution wid th (RBC) [Ratio]Ordered By: Balwinder Alves on 12-26-2024 Erythrocyte distribution width (RBC) [Entitic vol] 47.6 fL High 35.1-43.9 [facility] Erythrocyte distribution wid th ratioOrdered By: Balwinder Alves on 12-26-2024 Erythrocyte distribution width (RBC) [Ratio] 13.9 % 11.6-14.6 [facility] Erythrocyte distribution wid th standard deviationOrdered By: Balwinder Alves on 12-26-2024 Erythrocyte distribution width (RBC) [Ratio] 47.6 fl High 35.1-43.9 [facility] GFR/1.73 sq M.predicted [place] non-blacks MDRD (S/P/Bld) [Vol rate/Area]Ordered By: Balwinder Alves on 12-26-2024 Estimated GFR (MDRD) Non-Af Amer 88 >60 [facility] Comment on above: mL/min/1.73m2 CKD-EP I Creatinine Equation (2020) Glomerular filtration rate ( GFR) estimation/1.73 sq m using serum, plasma, or whole bOrdered By: Balwinder Alves on 12-26-2024 GFR/1.73 sq M.predicted among non-blacks MDRD (S/P/Bld) [Vol rate/Area] 88 mL/min/{1.73_m2} >60 [facility] Comment on above: mL/min/1.73m2 CKD-EP I Creatinine Equation (2020) Hematocrit Auto (Bld) [Volum e fraction]Ordered By: Balwinder Alves on 12-26-2024 Hematocrit (Bld) [Volume fraction] 35.6 % Low 37-47 [facility] Hemoglobin measurementOrdere d By: Balwinder Alves on 12-26-2024 Hemoglobin (Bld) [Mass/Vol] 10.9 g/dL Low 12.0-15.0 [facility] Immature granulocytes/100 WB C Auto (Bld)Ordered By: Balwinder Alves on 12-26-2024 Immature granulocytes/100 WBC (Bld) 0.700 % 0.0-0.9 [facility] Comment on above: IG% - Immature Granu locytes (promyelocytes, myelocytes and metamyelocytes) > 1% indicates that a LEFT SHIFT is Present. Lymphocytes Auto (Unsp spec) [#/Vol]Ordered By: Balwinder Alves on 12-26-2024 Lymphocytes (Bld) [#/Vol] 1.77 10*3/uL 0.83-4.51 [facility] Lymphocytes/100 WBC Auto (Un sp spec)Ordered By: Balwinder Alves on 12-26-2024 Lymphocytes/100 WBC (Bld) 24.8 % 19-41 [facility] MCV (mean corpuscular volume ) determinationOrdered By: Balwinder Alves on 12-26-2024 MCV (RBC) [Entitic vol] 93.9 fL 81-99 [facility] Mean corpuscular hemoglobin (MCH) determinationOrdered By: Balwinder Alves on 12-26-2024 MCH (RBC) [Entitic mass] 28.8 pg 27.0-32.0 [facility] Mean corpuscular hemoglobin concentration (MCHC) determinationOrdered By: Balwinder Alves on 12-26-2024 MCHC (RBC) [Mass/Vol] 30.6 g/dL Low 32-36 [facility] Mean platelet volume determi nationOrdered By: Balwinder Alves on 12-26-2024 Platelet mean volume (Bld) [Entitic vol] 8.6 fL 6.2-12.0 [facility] Monocyte percentageOrdered B y: Balwinder Alves on 12-26-2024 Monocytes/100 WBC (Bld) 6.3 % 0-10 [facility] Neutrophil percentageOrdered By: Balwinder Alves on 12-26-2024 Neutrophils/100 WBC (Bld) 64.7 % 47-70 [facility] Nucleated red blood cell per centageOrdered By: Balwinder Alves on 12-26-2024 Nucleated RBC/100 WBC (Bld) [Ratio] 0 % 0-5 [facility] Platelet countOrdered By: Jen Alves on 12-26-2024 Platelets (Bld) [#/Vol] 221 10*3/uL 150-450 [facility] Potassium (Unsp spec) [Mass/ Vol]Ordered By: Balwinder Alves on 12-26-2024 Potassium [Moles/Vol] 4.6 mmol/L 3.3-5.1 [facility] Potassium measurement (mass/ volume)Ordered By: Balwinder Alves on 12-26-2024 Potassium (Unsp spec) [Mass/Vol] 4.6 mmol/L 3.3-5.1 [facility] RBC Auto (Bld) [#/Vol]Ordere d By: Balwinder Alves on 12-26-2024 RBC (Bld) [#/Vol] 3.79 10*6/uL Low 4.2-5.4 [facility] Serum creatinine measurement (mass/volume)Ordered By: Balwinder Alves on 12-26-2024 Creatinine [Mass/Vol] 0.67 mg/dL Low 0.70-1.20 [facility] Serum glucose measurement (m ass/volume)Ordered By: Balwinder Alves on 12-26-2024 Glucose [Mass/Vol] 215 mg/dL High 70-99 [facility] Serum or plasma calcium jacqueline urement (mass/volume)Ordered By: Balwinder Alves on 12-26-2024 Calcium [Mass/Vol] 9.1 mg/dL 7.6-11.0 [facility] Serum or plasma urea nitroge n measurement (mass/volume)Ordered By: Balwinder Alves on 12-26-2024 Urea nitrogen [Mass/Vol] 8 mg/dL - [facility] Sodium levelOrdered By: Balwinder Alves on 12-26-2024 Sodium [Moles/Vol] 137 mmol/L 133-145 [facility] White blood cell (WBC) count Ordered By: Balwinder Alves on 12-26-2024 WBC (Bld) [#/Vol] 7.1 10*3/uL 4.4-11.0 [facility] Anion gap in Serum or Plasma Ordered By: Balwinder Alves on 12-16-2024 Anion gap [Moles/Vol] 12 mmol/L 02-16 [facility] BUN/creatinine ratioOrdered By: Balwinder Alves on 12-16-2024 Urea nitrogen/Creatinine [Mass ratio] 12.7 mg/mg 07-24 [facility] Basic Metabolic Profile (BMP )on 12-16-2024 BUN/CRE 12.7 RATIO Normal 07-24 [facility] Comment on above: Performed By: #### L 500.2500, L100.0100 #### [facility] [address] [place], [address] Calcium [Mass/Vol] 9.5 mg/dL Normal 7.6-11.0 [facility] Comment on above: Performed By: #### L 500.2500, L100.0100 #### [facility] [address] [place], [address] Chloride [Moles/Vol] 98 mmol/L Normal 98-108 [facility] Comment on above: Performed By: #### L 500.2500, L100.0100 #### [facility] [address] [place], [address] CO2 [Moles/Vol] 26.7 mmol/L Normal 21.0-32.0 [facility] Comment on above: Performed By: #### L 500.2500, L100.0100 #### [facility] [address] [place], [address] Creatinine [Mass/Vol] 0.67 mg/dL Low 0.70-1.20 [facility] Comment on above: Performed By: #### L 500.2500, L100.0100 #### [facility] [address] [place], [address] GAP 12 Normal 5-15 [facility] Comment on above: Performed By: #### L 500.2500, L100.0100 #### [facility] [address] [place], [address] GFR/1.73 sq M.predicted among non-blacks MDRD (S/P/Bld) [Vol rate/Area] 88 mL/min/{1.73_m2} Normal >60 [facility] Comment on above: Result Comment: mL/m in/1.73m2 CKD-EPI Creatinine Equation (2020) Performed By: #### L 500.2500, L100.0100 #### [facility] [address] [place], [address] Glucose [Mass/Vol] 201 mg/dL High 70-99 [facility] Comment on above: Performed By: #### L 500.2500, L100.0100 #### [facility] [address] [place], [address] Potassium [Moles/Vol] 4.6 mmol/L Normal 3.3-5.1 [facility] Comment on above: Performed By: #### L 500.2500, L100.0100 #### [facility] [address] [place], [address] Sodium [Moles/Vol] 137 mmol/L Normal 133-145 [facility] Comment on above: Performed By: #### L 500.2500, L100.0100 #### [facility] [address] [place], [address] Urea nitrogen [Mass/Vol] 8 mg/dL Normal 4-19 [facility] Comment on above: Performed By: #### L 500.2500, L100.0100 #### [facility] [address] [place], [address] CBC-Complete Blood Cnt No Di ffon 12-16-2024 Erythrocyte distribution width (RBC) [Ratio] 13.8 % Normal 11.6-14.6 [facility] Comment on above: Performed By: #### L 500.2500, L501.9985, L500.4100, L100.0500, L506.1001 #### [facility] [address] [place], [address] Hematocrit (Bld) [Volume fraction] 36.2 % Low 37-47 [facility] Comment on above: Performed By: #### L 500.2500, L501.9985, L500.4100, L100.0500, L506.1001 #### [facility] [address] [place], [address] Hemoglobin (Bld) [Mass/Vol] 11.0 g/dL Low 12.0-15.0 [facility] Comment on above: Performed By: #### L 500.2500, L501.9985, L500.4100, L100.0500, L506.1001 #### [facility] [address] [place], [address] MCH (RBC) [Entitic mass] 28.2 pg Normal 27.0-32.0 [facility] Comment on above: Performed By: #### L 500.2500, L501.9985, L500.4100, L100.0500, L506.1001 #### [facility] [address] [place], [address] MCHC (RBC) [Mass/Vol] 30.4 g/dL Low 32-36 [facility] Comment on above: Performed By: #### L 500.2500, L501.9985, L500.4100, L100.0500, L506.1001 #### [facility] [address] [place], [address] MCV (RBC) [Entitic vol] 92.8 fL Normal 81-99 [facility] Comment on above: Performed By: #### L 500.2500, L501.9985, L500.4100, L100.0500, L506.1001 #### [facility] [address] [place], [address] Platelet mean volume (Bld) [Entitic vol] 8.4 fL Normal 6.2-12.0 [facility] Comment on above: Performed By: #### L 500.2500, L501.9985, L500.4100, L100.0500, L506.1001 #### [facility] [address] [place], [address] Platelets (Bld) [#/Vol] 231 10*3/uL Normal 150-450 [facility] Comment on above: Performed By: #### L 500.2500, L501.9985, L500.4100, L100.0500, L506.1001 #### [facility] [address] [place], [address] RBC (Bld) [#/Vol] 3.90 10*6/uL Low 4.2-5.4 [facility] Comment on above: Performed By: #### L 500.2500, L501.9985, L500.4100, L100.0500, L506.1001 #### [facility] [address] [place], [address] RDW SD 47.0 fl High 35.1-43.9 [facility] Comment on above: Performed By: #### L 500.2500, L501.9985, L500.4100, L100.0500, L506.1001 #### [facility] [address] [place], [address] WBC (Bld) [#/Vol] 7.8 10*3/uL Normal 4.4-11.0 [facility] Comment on above: Performed By: #### L 500.2500, L501.9985, L500.4100, L100.0500, L506.1001 #### [facility] [address] [place], [address] Calculated very low density lipoprotein (VLDL) cholesterol measurementOrdered By: Balwinder Alves on 12-16-2024 Calculated very low density lipoprotein (VLDL) cholesterol measurement 32 mg/dL 5-40 [facility] VLDL Cholesterol 32 mg/dL 5-40 [facility] Carbon dioxide, total [Moles /volume] in Central venous bloodOrdered By: Balwinder Alves on 12-16-2024 CO2 [Moles/Vol] 26.7 mmol/L 21.0-32.0 [facility] Chloride assayOrdered By: Jen Alves on 12-16-2024 Chloride [Moles/Vol] 98 mmol/L 98-108 [facility] Erythrocyte distribution wid th (RBC) [Ratio]Ordered By: Balwinder Alves on 12-16-2024 Erythrocyte distribution width (RBC) [Entitic vol] 47.0 fL High 35.1-43.9 [facility] Erythrocyte distribution wid th ratioOrdered By: Balwinder Alves on 12-16-2024 Erythrocyte distribution width (RBC) [Ratio] 13.8 % 11.6-14.6 [facility] Erythrocyte distribution wid th standard deviationOrdered By: Balwinder Alves on 12-16-2024 Erythrocyte distribution width (RBC) [Ratio] 47.0 fl High 35.1-43.9 [facility] GFR/1.73 sq M.predicted [place] non-blacks MDRD (S/P/Bld) [Vol rate/Area]Ordered By: Balwinder Alves on 12-16-2024 Estimated GFR (MDRD) Non-Af Amer 88 >60 [facility] Comment on above: mL/min/1.73m2 CKD-EP I Creatinine Equation (2020) Glomerular filtration rate ( GFR) estimation/1.73 sq m using serum, plasma, or whole bOrdered By: Balwinder Alves on 12-16-2024 GFR/1.73 sq M.predicted among non-blacks MDRD (S/P/Bld) [Vol rate/Area] 88 mL/min/{1.73_m2} >60 [facility] Comment on above: mL/min/1.73m2 CKD-EP I Creatinine Equation (2020) Hematocrit Auto (Bld) [Volum e fraction]Ordered By: Balwinder Alves on 12-16-2024 Hematocrit (Bld) [Volume fraction] 36.2 % Low 37-47 [facility] Hemoglobin A1con 12-16-2024 HbA1c (Bld) [Mass fraction] 8.4 % Normal <=5.6 [facility] Comment on above: Performed By: #### L 500.2500, L100.0100 #### [facility] [address] [place], [place], [id number] Hemoglobin A1c percentageOrd ered By: Balwinder Alves on 12-16-2024 HbA1c (Bld) [Mass fraction] 8.4 % >5.7 [facility] Hemoglobin measurementOrdere d By: Balwinder Alves on 12-16-2024 Hemoglobin (Bld) [Mass/Vol] 11.0 g/dL Low 12.0-15.0 [facility] L506.1001on 12-16-2024 Vitamin D 25-OH 31.6 ng/mL Normal 30-100 [facility] Comment on above: Result Comment: Feli min D Status Deficiency: <20 ng/mL (50nmol/L) Insufficiency: 20-30 ng/mL (50-75 nmol/L) Sufficiency: 30-100 ng/mL (75-250 nmol/L) Toxicity: >100 ng/mL (>250 nmol/L) Performed By: #### L 500.2500, L100.0100 #### [facility] [address] [place], [address] LDL calc ser/plasOrdered By: Balwinder Alves on 12-16-2024 Cholesterol in LDL [Mass/Vol] 22 mg/dL [facility] Comment on above: Wjiurxiquy=441-026 m g/dL & Higher Svbm=019 mg/dL or greater LDL Cholesterol, Calculated 22 mg/dL [facility] Comment on above: Jixjmdebro=238-709 m g/dL & Higher Hjcd=745 mg/dL or greater Lipid Profileon 12-16-2024 CHOL:HDL 2.22 Normal [facility] Comment on above: Performed By: #### L 500.2500, L100.0100 #### [facility] [address] [place], [address] Cholesterol [Mass/Vol] 98 mg/dL Normal <=200 [facility] Comment on above: Result Comment: Chol esterol level, Desirable <200 mg/dL Borderline high cholesterol 200-239 mg/dL High cholesterol >=240 mg/dL Recommendations of the NCEP Adult Treatment Panel for the following risk-cutoff thresholds for the [place] population. Performed By: #### L 500.2500, L100.0100 #### [facility] [address] [place], [address] Cholesterol in HDL [Mass/Vol] 44 mg/dL Normal [facility] Comment on above: Result Comment: Matilde onal Cholesterol Education Program (NCEP) guidelines: <40 mg/dL: Low HDL-cholesterol (major risk factor for CHD) >= 60 mg/dL: High HDL-cholesterol (negative risk factor for CHD) HDL-cholesterol is affected by a number of factors, e.g. smoking, exercise, hormones, sex and age. Performed By: #### L 500.2500, L100.0100 #### [facility] [address] [place], [address] Cholesterol in LDL [Mass/Vol] 22 mg/dL Normal [facility] Comment on above: Result Comment: Bord mktufi=151-225 mg/dL Higher Ynih=818 mg/dL or greater Performed By: #### L 500.2500, L100.0100 #### [facility] [address] [place], [address] Cholesterol in VLDL [Mass/Vol] 32 mg/dL Normal 5-40 [facility] Comment on above: Performed By: #### L 500.2500, L100.0100 #### [facility] [address] [place], [address] Triglyceride [Mass/Vol] 162 mg/dL Normal [facility] Comment on above: Result Comment: The drugs N-Acetylcysteine and Metamizole may falsely depress this assay. Normal range: <150 mg/dL Borderline High: 150-199 mg/dL High: 200-499 mg/dL Very High: >500 mg/dL Performed By: #### L 500.2500, L100.0100 #### [facility] [address] [place], [address] MCV (mean corpuscular volume ) determinationOrdered By: Balwinder Alves on 12-16-2024 MCV (RBC) [Entitic vol] 92.8 fL 81-99 [facility] Mean corpuscular hemoglobin (MCH) determinationOrdered By: Balwinder Alves on 12-16-2024 MCH (RBC) [Entitic mass] 28.2 pg 27.0-32.0 [facility] Mean corpuscular hemoglobin concentration (MCHC) determinationOrdered By: Balwinder Alves on 12-16-2024 MCHC (RBC) [Mass/Vol] 30.4 g/dL Low 32-36 [facility] Mean platelet volume determi nationOrdered By: Balwinder Alves on 12-16-2024 Platelet mean volume (Bld) [Entitic vol] 8.4 fL 6.2-12.0 [facility] Platelet countOrdered By: Jen Alves on 12-16-2024 Platelets (Bld) [#/Vol] 231 10*3/uL 150-450 [facility] Potassium (Unsp spec) [Mass/ Vol]Ordered By: Balwinder Alves on 12-16-2024 Potassium [Moles/Vol] 4.6 mmol/L 3.3-5.1 [facility] Potassium measurement (mass/ volume)Ordered By: Balwinder Alves on 12-16-2024 Potassium (Unsp spec) [Mass/Vol] 4.6 mmol/L 3.3-5.1 [facility] RBC Auto (Bld) [#/Vol]Ordere d By: Balwinder Alves on 12-16-2024 RBC (Bld) [#/Vol] 3.90 10*6/uL Low 4.2-5.4 [facility] Screening total cholesterol/ high density lipoprotein (HDL) cholesterol ratioOrdered By: Balwinder Alves on 12-16-2024 Cholesterol.total/Jany sterol in HDL [Mass ratio] 2.22 {ratio} [facility] Serum creatinine measurement (mass/volume)Ordered By: Balwinder Alves on 12-16-2024 Creatinine [Mass/Vol] 0.67 mg/dL Low 0.70-1.20 [facility] Serum glucose measurement (m ass/volume)Ordered By: Balwinder Alves on 12-16-2024 Glucose [Mass/Vol] 201 mg/dL High 70-99 [facility] Serum or plasma calcium jacqueline urement (mass/volume)Ordered By: Balwinder Alves on 12-16-2024 Calcium [Mass/Vol] 9.5 mg/dL 7.6-11.0 [facility] Serum or plasma cholesterol in HDL measurement (mass/volume)Ordered By: Balwinder Alves on 12-16-2024 Cholesterol in HDL [Mass/Vol] 44 mg/dL >40 [facility] Comment on above: National Cholesterol Education Program (NCEP) guidelines:<40 mg/dL: Low HDL-cholesterol (major risk factor for CHD)>= 60 mg/dL: High HDL-cholesterol (negative risk factor for CHD)HDL-cholesterol is affected by a number of factors, e.g. smoking, exercise, hormones, sex and age. Serum or plasma cholesterol measurement (mass/volume)Ordered By: Balwinder Alves on 12-16-2024 Cholesterol [Mass/Vol] 98 mg/dL <201 [facility] Comment on above: Cholesterol level, D esirable <200 mg/dLBorderline high cholesterol 200-239 mg/dLHigh cholesterol >=240 mg/dLRecommendations of the NCEP Adult Treatment Panel for the following risk-cutoff thresholds for the [place] population. Serum or plasma urea nitroge n measurement (mass/volume)Ordered By: Balwinder Alves on 12-16-2024 Urea nitrogen [Mass/Vol] 8 mg/dL 4-19 [facility] Sodium levelOrdered By: Balwinder Alves on 12-16-2024 Sodium [Moles/Vol] 137 mmol/L 133-145 [facility] Triglycerides measurementOrd ered By: Balwinder Alves on 12-16-2024 Triglyceride [Mass/Vol] 162 mg/dL <199 [facility] Comment on above: The drugs N-Acetylcy steine and Metamizole may falsely depress this assay. Normal range: <150 mg/dLBorderline High: 150-199 mg/dLHigh: 200-499 mg/dLVery High: >500 mg/dL Vitamin D, 25-hydroxyOrdered By: Balwinder Alves on 12-16-2024 Vitamin D 25-Hydroxy 31.6 ng/mL 30-100 [facility] Comment on above: Vitamin D StatusDefi ciency: <20 ng/mL (50nmol/L)Insufficiency: 20-30 ng/mL (50-75 nmol/L)Sufficiency: 30-100 ng/mL (75-250 nmol/L)Toxicity: >100 ng/mL (>250 nmol/L) White blood cell (WBC) count Ordered By: Balwinder Alves on 12-16-2024 WBC (Bld) [#/Vol] 7.8 10*3/uL 4.4-11.0 [facility] Absolute lymphocyte countOrd ered By: Balwinder Alves on 12-14-2024 Lymphocytes Auto (Unsp spec) [#/Vol] 1.93 10*3/uL 0.83-4.51 [facility] Absolute neutrophil countOrd ered By: Balwinder Alves on 12-14-2024 Neutrophils (Bld) [#/Vol] 4.0 10*3/uL 2.0-7.7 [facility] Anion gap in Serum or Plasma Ordered By: Balwinder Alves on 12-14-2024 Anion gap [Moles/Vol] 11 mmol/L 5-15 [facility] Automated lymphocyte count a s percentage of total leukocytesOrdered By: Balwinder Alves on 12-14-2024 Lymphocytes/100 WBC Auto (Unsp spec) 28.7 % 19-41 [facility] BUN/creatinine ratioOrdered By: Balwinder Alvse on 12-14-2024 Urea nitrogen/Creatinine [Mass ratio] 10.3 mg/mg 10-20 [facility] Basic Metabolic Profile (BMP )on 12-14-2024 BUN/CRE 10.3 RATIO Normal 10-20 [facility] Comment on above: Order Comment: 102.2 Performed By: #### L 500.2500, L500.3400, L100.0500 #### [facility] [address] [place], [address] Calcium [Mass/Vol] 9.2 mg/dL Normal 7.6-11.0 [facility] Comment on above: Order Comment: 102.2 Performed By: #### L 500.2500, L500.3400, L100.0500 #### [facility] [address] [place], [address] Chloride [Moles/Vol] 101 mmol/L Normal 98-108 [facility] Comment on above: Order Comment: 102.2 Performed By: #### L 500.2500, L500.3400, L100.0500 #### [facility] [address] [place], [address] CO2 [Moles/Vol] 27.6 mmol/L Normal 21.0-32.0 [facility] Comment on above: Order Comment: 102.2 Performed By: #### L 500.2500, L500.3400, L100.0500 #### [facility] [address] [place], [address] Creatinine [Mass/Vol] 0.68 mg/dL Low 0.70-1.20 [facility] Comment on above: Order Comment: 102.2 Performed By: #### L 500.2500, L500.3400, L100.0500 #### [facility] [address] [place], [address] GAP 11 Normal 5-15 [facility] Comment on above: Order Comment: 102.2 Performed By: #### L 500.2500, L500.3400, L100.0500 #### [facility] [address] [place], [address] GFR/1.73 sq M.predicted among non-blacks MDRD (S/P/Bld) [Vol rate/Area] 88 mL/min/{1.73_m2} Normal >60 [facility] Comment on above: Order Comment: 102.2 Result Comment: mL/m in/1.73m2 CKD-EPI Creatinine Equation (2020) Performed By: #### L 500.2500, L500.3400, L100.0500 #### [facility] [address] [place], [address] Glucose [Mass/Vol] 177 mg/dL High 70-99 [facility] Comment on above: Order Comment: 102.2 Performed By: #### L 500.2500, L500.3400, L100.0500 #### [facility] [address] [place], [address] Potassium [Moles/Vol] 4.3 mmol/L Normal 3.3-5.1 [facility] Comment on above: Order Comment: 102.2 Performed By: #### L 500.2500, L500.3400, L100.0500 #### [facility] [address] [place], [address] Sodium [Moles/Vol] 139 mmol/L Normal 133-145 [facility] Comment on above: Order Comment: 102.2 Performed By: #### L 500.2500, L500.3400, L100.0500 #### [facility] [address] [place], [address] Urea nitrogen [Mass/Vol] 7 mg/dL Normal 4-19 [facility] Comment on above: Order Comment: 102.2 Performed By: #### L 500.2500, L500.3400, L100.0500 #### [facility] [address] [place], [address] Basophil percentageOrdered B y: Balwinder Alves on 12-14-2024 Basophils/100 WBC (Bld) 0.3 % 0-1 [facility] CBC W/Diff, Automatedon -10 06-2024 Absolute Lymph 1.93 X10 3/uL Normal 0.83-4.51 [facility] Comment on above: Order Comment: 102.2 Performed By: #### L 500.2500, L500.3400, L100.0500 #### [facility] [address] [place], [address] Absolute Neut 4.0 X10 3/uL Normal 2.0-7.7 [facility] Comment on above: Order Comment: 102.2 Performed By: #### L 500.2500, L500.3400, L100.0500 #### [facility] [address] [place], [address] Basophils/100 WBC (Bld) 0.3 % Normal 0-1 [facility] Comment on above: Order Comment: 102.2 Performed By: #### L 500.2500, L500.3400, L100.0500 #### [facility] [address] [place], [address] Eosinophils/100 WBC (Bld) 3.1 % Normal 0-5 [facility] Comment on above: Order Comment: 102.2 Performed By: #### L 500.2500, L500.3400, L100.0500 #### [facility] [address] [place], [address] Erythrocyte distribution width (RBC) [Ratio] 13.6 % Normal 11.6-14.6 [facility] Comment on above: Order Comment: 102.2 Performed By: #### L 500.2500, L500.3400, L100.0500 #### [facility] [address] [place], [address] Hematocrit (Bld) [Volume fraction] 35.6 % Low 37-47 [facility] Comment on above: Order Comment: 102.2 Performed By: #### L 500.2500, L500.3400, L100.0500 #### [facility] [address] [place], [address] Hemoglobin (Bld) [Mass/Vol] 10.9 g/dL Low 12.0-15.0 [facility] Comment on above: Order Comment: 102.2 Performed By: #### L 500.2500, L500.3400, L100.0500 #### [facility] [address] [place], [address] IG% 1.000 High 0.0-0.9 [facility] Comment on above: Order Comment: 102.2 Result Comment: IG% - Immature Granulocytes (promyelocytes, myelocytes and metamyelocytes) > 1% indicates that a LEFT SHIFT is Present. Performed By: #### L 500.2500, L500.3400, L100.0500 #### [facility] [address] [place], [address] Lymphocytes/100 WBC (Bld) 28.7 % Normal 19-41 [facility] Comment on above: Order Comment: 102.2 Performed By: #### L 500.2500, L500.3400, L100.0500 #### [facility] [address] [place], [address] MCH (RBC) [Entitic mass] 28.2 pg Normal 27.0-32.0 [facility] Comment on above: Order Comment: 102.2 Performed By: #### L 500.2500, L500.3400, L100.0500 #### [facility] [address] [place], [address] MCHC (RBC) [Mass/Vol] 30.6 g/dL Low 32-36 [facility] Comment on above: Order Comment: 102.2 Performed By: #### L 500.2500, L500.3400, L100.0500 #### [facility] [address] [place], [address] MCV (RBC) [Entitic vol] 92.0 fL Normal 81-99 [facility] Comment on above: Order Comment: 102.2 Performed By: #### L 500.2500, L500.3400, L100.0500 #### [facility] [address] [place], [address] Monocytes/100 WBC (Bld) 6.8 % Normal 0-10 [facility] Comment on above: Order Comment: 102.2 Performed By: #### L 500.2500, L500.3400, L100.0500 #### [facility] [address] [place], [address] Neutrophils/100 WBC (Bld) 60.1 % Normal 47-70 [facility] Comment on above: Order Comment: 102.2 Performed By: #### L 500.2500, L500.3400, L100.0500 #### [facility] [address] [place], [address] Nucleated RBC (Bld) [#/Vol] 0 10*3/uL Normal 0-5 [facility] Comment on above: Order Comment: 102.2 Performed By: #### L 500.2500, L500.3400, L100.0500 #### [facility] [address] [place], [address] Platelet mean volume (Bld) [Entitic vol] 8.5 fL Normal 6.2-12.0 [facility] Comment on above: Order Comment: 102.2 Performed By: #### L 500.2500, L500.3400, L100.0500 #### [facility] [address] [place], [address] Platelets (Bld) [#/Vol] 213 10*3/uL Normal 150-450 [facility] Comment on above: Order Comment: 102.2 Performed By: #### L 500.2500, L500.3400, L100.0500 #### [facility] [address] [place], [address] RBC (Bld) [#/Vol] 3.87 10*6/uL Low 4.2-5.4 [facility] Comment on above: Order Comment: 102.2 Performed By: #### L 500.2500, L500.3400, L100.0500 #### [facility] [address] [place], [address] RDW SD 46.1 fl High 35.1-43.9 [facility] Comment on above: Order Comment: 102.2 Performed By: #### L 500.2500, L500.3400, L100.0500 #### [facility] [address] [place], [address] WBC (Bld) [#/Vol] 6.7 10*3/uL Normal 4.4-11.0 [facility] Comment on above: Order Comment: 102.2 Performed By: #### L 500.2500, L500.3400, L100.0500 #### [facility] [address] [place], [address] Calculated very low density lipoprotein (VLDL) cholesterol measurementOrdered By: Balwinder Alves on 12-14-2024 Calculated very low density lipoprotein (VLDL) cholesterol measurement 29 mg/dL 5-40 [facility] VLDL Cholesterol 29 mg/dL 5-40 [facility] Carbon dioxide, total [Moles /volume] in Central venous bloodOrdered By: Balwinder Alves on 12-14-2024 CO2 [Moles/Vol] 27.6 mmol/L 21.0-32.0 [facility] Chloride assayOrdered By: Jen Alves on 12-14-2024 Chloride [Moles/Vol] 101 mmol/L 98-108 [facility] Eosinophil percentageOrdered By: Balwinder Alves on 12-14-2024 Eosinophils/100 WBC (Bld) 3.1 % 0-5 [facility] Erythrocyte distribution wid th (RBC) [Ratio]Ordered By: Balwinder Alves on 12-14-2024 Erythrocyte distribution width (RBC) [Entitic vol] 46.1 fL High 35.1-43.9 [facility] Erythrocyte distribution wid th ratioOrdered By: Balwinder Alves on 12-14-2024 Erythrocyte distribution width (RBC) [Ratio] 13.6 % 11.6-14.6 [facility] Erythrocyte distribution wid th standard deviationOrdered By: Balwinder Alves on 12-14-2024 Erythrocyte distribution width (RBC) [Ratio] 46.1 fl High 35.1-43.9 [facility] GFR/1.73 sq M.predicted ph[place] non-blacks MDRD (S/P/Bld) [Vol rate/Area]Ordered By: Balwinder Alves on 12-14-2024 Estimated GFR (MDRD) Non-Af Amer 88 >60 [facility] Comment on above: mL/min/1.73m2 CKD-EP I Creatinine Equation (2020) Glomerular filtration rate ( GFR) estimation/1.73 sq m using serum, plasma, or whole bOrdered By: Balwinder Alves on 12-14-2024 GFR/1.73 sq M.predicted among non-blacks MDRD (S/P/Bld) [Vol rate/Area] 88 mL/min/{1.73_m2} >60 [facility] Comment on above: mL/min/1.73m2 CKD-EP I Creatinine Equation (2020) Hematocrit Auto (Bld) [Volum e fraction]Ordered By: Balwinder Alves on 12-14-2024 Hematocrit (Bld) [Volume fraction] 35.6 % Low 37-47 [facility] Hemoglobin A1con 12-14-2024 HbA1c (Bld) [Mass fraction] 8.6 % Normal <=5.6 [facility] Comment on above: Order Comment: 102.2 Performed By: #### L 500.2500, L500.3400, L100.0500 #### [facility] [address] [place], [address] Hemoglobin A1c percentageOrd ered By: Balwinder Alves on 12-14-2024 HbA1c (Bld) [Mass fraction] 8.6 % >5.7 [facility] Hemoglobin measurementOrdere d By: Balwinder Alves on 12-14-2024 Hemoglobin (Bld) [Mass/Vol] 10.9 g/dL Low 12.0-15.0 [facility] Immature granulocytes/100 WB C Auto (Bld)Ordered By: Balwinder Alves on 12-14-2024 Immature granulocytes/100 WBC (Bld) 1.000 % High 0.0-0.9 [facility] Comment on above: IG% - Immature Granu locytes (promyelocytes, myelocytes and metamyelocytes) > 1% indicates that a LEFT SHIFT is Present. L506.1001on 12-14-2024 Vitamin D 25-OH 31.2 ng/mL Normal 30-100 [facility] Comment on above: Order Comment: 102.2 Result Comment: Feli min D Status Deficiency: <20 ng/mL (50nmol/L) Insufficiency: 20-30 ng/mL (50-75 nmol/L) Sufficiency: 30-100 ng/mL (75-250 nmol/L) Toxicity: >100 ng/mL (>250 nmol/L) Performed By: #### L 500.2500, L500.3400, L100.0500 #### [facility] [address], [address] LDL calc ser/plasOrdered By: Balwinder Alves on 12-14-2024 Cholesterol in LDL [Mass/Vol] 22 mg/dL [facility] Comment on above: Vtpsjwukrr=464-889 m g/dL & Higher Nllj=762 mg/dL or greater LDL Cholesterol, Calculated 22 mg/dL [facility] Comment on above: Wxnvxslkdw=953-145 m g/dL & Higher Umjs=366 mg/dL or greater Lipid Profileon 12-14-2024 CHOL:HDL 2.29 Normal [facility] Comment on above: Order Comment: 102.2 Performed By: #### L 500.2500, L500.3400, L100.0500 #### [facility] [address] [place], [address] Cholesterol [Mass/Vol] 91 mg/dL Normal <=200 [facility] Comment on above: Order Comment: 102.2 Result Comment: Chol esterol level, Desirable <200 mg/dL Borderline high cholesterol 200-239 mg/dL High cholesterol >=240 mg/dL Recommendations of the NCEP Adult Treatment Panel for the following risk-cutoff thresholds for the [place] population. Performed By: #### L 500.2500, L500.3400, L100.0500 #### [facility] [address] [place], [address] Cholesterol in HDL [Mass/Vol] 40 mg/dL Normal [facility] Comment on above: Order Comment: 102.2 Result Comment: Matilde onal Cholesterol Education Program (NCEP) guidelines: <40 mg/dL: Low HDL-cholesterol (major risk factor for CHD) >= 60 mg/dL: High HDL-cholesterol (negative risk factor for CHD) HDL-cholesterol is affected by a number of factors, e.g. smoking, exercise, hormones, sex and age. Performed By: #### L 500.2500, L500.3400, L100.0500 #### [facility] [address] [place], [address] Cholesterol in LDL [Mass/Vol] 22 mg/dL Normal [facility] Comment on above: Order Comment: 102.2 Result Comment: Bord bgubsf=861-275 mg/dL Higher Ewvq=646 mg/dL or greater Performed By: #### L 500.2500, L500.3400, L100.0500 #### [facility] [address] [place], [address] Cholesterol in VLDL [Mass/Vol] 29 mg/dL Normal 5-40 [facility] Comment on above: Order Comment: 102.2 Performed By: #### L 500.2500, L500.3400, L100.0500 #### [facility] [address] [place], [address] Triglyceride [Mass/Vol] 146 mg/dL Normal [facility] Comment on above: Order Comment: 102.2 Result Comment: The drugs N-Acetylcysteine and Metamizole may falsely depress this assay. Normal range: <150 mg/dL Borderline High: 150-199 mg/dL High: 200-499 mg/dL Very High: >500 mg/dL Performed By: #### L 500.2500, L500.3400, L100.0500 #### [facility] [address] [place], [address] Lymphocytes Auto (Unsp spec) [#/Vol]Ordered By: Balwinder Alves on 12-14-2024 Lymphocytes (Bld) [#/Vol] 1.93 10*3/uL 0.83-4.51 [facility] Lymphocytes/100 WBC Auto (Un sp spec)Ordered By: Balwinder Alves on 12-14-2024 Lymphocytes/100 WBC (Bld) 28.7 % 19-41 [facility] MCV (mean corpuscular volume ) determinationOrdered By: Balwinedr Alves on 12-14-2024 MCV (RBC) [Entitic vol] 92.0 fL 81-99 [facility] Mean corpuscular hemoglobin (MCH) determinationOrdered By: Balwinder Alves on 12-14-2024 MCH (RBC) [Entitic mass] 28.2 pg 27.0-32.0 [facility] Mean corpuscular hemoglobin concentration (MCHC) determinationOrdered By: Balwinder Alves on 12-14-2024 MCHC (RBC) [Mass/Vol] 30.6 g/dL Low 32-36 [facility] Mean platelet volume determi nationOrdered By: Balwinder Alves on 12-14-2024 Platelet mean volume (Bld) [Entitic vol] 8.5 fL 6.2-12.0 [facility] Monocyte percentageOrdered B y: Balwinder Alves on 12-14-2024 Monocytes/100 WBC (Bld) 6.8 % 0-10 [facility] Neutrophil percentageOrdered By: Balwinder Alves on 12-14-2024 Neutrophils/100 WBC (Bld) 60.1 % 47-70 [facility] Nucleated red blood cell per centageOrdered By: Balwinder Alves on 12-14-2024 Nucleated RBC/100 WBC (Bld) [Ratio] 0 % 0-5 [facility] Platelet countOrdered By: Jen Alves on 12-14-2024 Platelets (Bld) [#/Vol] 213 10*3/uL 150-450 [facility] Potassium (Unsp spec) [Mass/ Vol]Ordered By: Balwinder Alves on 12-14-2024 Potassium [Moles/Vol] 4.3 mmol/L 3.3-5.1 [facility] Potassium measurement (mass/ volume)Ordered By: Balwinder Alves on 12-14-2024 Potassium (Unsp spec) [Mass/Vol] 4.3 mmol/L 3.3-5.1 [facility] RBC Auto (Bld) [#/Vol]Ordere d By: Balwinder Alves on 12-14-2024 RBC (Bld) [#/Vol] 3.87 10*6/uL Low 4.2-5.4 [facility] Screening total cholesterol/ high density lipoprotein (HDL) cholesterol ratioOrdered By: Balwinder Alves on 12-14-2024 Cholesterol.total/Jany sterol in HDL [Mass ratio] 2.29 {ratio} [facility] Serum creatinine measurement (mass/volume)Ordered By: Balwinder Alves on 12-14-2024 Creatinine [Mass/Vol] 0.68 mg/dL Low 0.70-1.20 [facility] Serum glucose measurement (m ass/volume)Ordered By: Balwinder Alves on 12-14-2024 Glucose [Mass/Vol] 177 mg/dL High 70-99 [facility] Serum or plasma calcium jacqueline urement (mass/volume)Ordered By: Balwinder Alves on 12-14-2024 Calcium [Mass/Vol] 9.2 mg/dL 7.6-11.0 [facility] Serum or plasma cholesterol in HDL measurement (mass/volume)Ordered By: Balwinder Alves on 12-14-2024 Cholesterol in HDL [Mass/Vol] 40 mg/dL >40 [facility] Comment on above: National Cholesterol Education Program (NCEP) guidelines:<40 mg/dL: Low HDL-cholesterol (major risk factor for CHD)>= 60 mg/dL: High HDL-cholesterol (negative risk factor for CHD)HDL-cholesterol is affected by a number of factors, e.g. smoking, exercise, hormones, sex and age. Serum or plasma cholesterol measurement (mass/volume)Ordered By: Balwinder Alves on 12-14-2024 Cholesterol [Mass/Vol] 91 mg/dL <201 [facility] Comment on above: Cholesterol level, D esirable <200 mg/dLBorderline high cholesterol 200-239 mg/dLHigh cholesterol >=240 mg/dLRecommendations of the NCEP Adult Treatment Panel for the following risk-cutoff thresholds for the [place] population. Serum or plasma urea nitroge n measurement (mass/volume)Ordered By: Balwinder Alves on 12-14-2024 Urea nitrogen [Mass/Vol] 7 mg/dL 4-19 [facility] Sodium levelOrdered By: Balwinder Alves on 12-14-2024 Sodium [Moles/Vol] 139 mmol/L 133-145 [facility] Triglycerides measurementOrd ered By: Balwinder Alves on 12-14-2024 Triglyceride [Mass/Vol] 146 mg/dL <199 [facility] Comment on above: The drugs N-Acetylcy steine and Metamizole may falsely depress this assay. Normal range: <150 mg/dLBorderline High: 150-199 mg/dLHigh: 200-499 mg/dLVery High: >500 mg/dL Vitamin D, 25-hydroxyOrdered By: Balwinder Alves on 12-14-2024 Vitamin D 25-Hydroxy 31.2 ng/mL 30-100 [facility] Comment on above: Vitamin D StatusDefi ciency: <20 ng/mL (50nmol/L)Insufficiency: 20-30 ng/mL (50-75 nmol/L)Sufficiency: 30-100 ng/mL (75-250 nmol/L)Toxicity: >100 ng/mL (>250 nmol/L) White blood cell (WBC) count Ordered By: Balwinder Alves on 12-14-2024 WBC (Bld) [#/Vol] 6.7 10*3/uL 4.4-11.0 [facility] Urine Cultureon 10-17-2024 [facility] Copy of report sent to Infection Control Printer [id number] 10/17/24 1000 VSICK. Urine Culture Urine Culture Urine Culture ESBL Escherichia coli [place] Count 80,000-100,000 MARKER ESBL producing OrganismA MARKER ESBL producing OrganismA [place] Count 80,000-100,000 Proteus mirabilis Ampicillin Islt PREM [...] TMP SMX Islt PREM <=20 S Normal [facility] Comment on above: Performed By: #### L 500.2500, L500.3400, L100.0500 #### [facility] [address] [place], [place], [id number] Urinalysis, Routine (Dipstic k)on 10-11-2024 BILIRUBIN URINE Negative Normal Negative [facility] Comment on above: Order Comment: 102.2 Performed By: #### L 500.2500, L500.3400, L100.0500 #### [facility] [address] [place], [address] Clarity (U) Sl. Cloudy Normal Clear [facility] Comment on above: Order Comment: 102.2 Performed By: #### L 500.2500, L500.3400, L100.0500 #### [facility] [address] [place], [address] Color (U) Yellow Normal Yellow [facility] Comment on above: Order Comment: 102.2 Performed By: #### L 500.2500, L500.3400, L100.0500 #### [facility] [address] [place], [address] GLUCOSE, UR Normal Normal Normal [facility] Comment on above: Order Comment: 102.2 Performed By: #### L 500.2500, L500.3400, L100.0500 #### [facility] [address] [place], [address] KETONE UR Negative Normal Negative [facility] Comment on above: Order Comment: 102.2 Performed By: #### L 500.2500, L500.3400, L100.0500 #### [facility] [address] [place], [address] LEUK ESTERASE 500 /ul Abnormal Negative [facility] Comment on above: Order Comment: 102.2 Performed By: #### L 500.2500, L500.3400, L100.0500 #### [facility] [address] [place], [address] Nitrite Ql (U) Positive Abnormal Negative [facility] Comment on above: Order Comment: 102.2 Performed By: #### L 500.2500, L500.3400, L100.0500 #### [facility] [address] [place], [address] OCCULT BLOOD-UR 50 /ul Abnormal Negative [facility] Comment on above: Order Comment: 102.2 Performed By: #### L 500.2500, L500.3400, L100.0500 #### [facility] [address] [place], [address] pH UR 6.5 Normal 5.0 - 8.0 [facility] Comment on above: Order Comment: 102.2 Performed By: #### L 500.2500, L500.3400, L100.0500 #### [facility] [address] [place], [address] PROT DIPSTX 15 mg/dl Abnormal Negative [facility] Comment on above: Order Comment: 102.2 Performed By: #### L 500.2500, L500.3400, L100.0500 #### [facility] [address] [place], [address] SP.GR. DIPSTX 1.010 Normal 1.002-1.030 [facility] Comment on above: Order Comment: 102.2 Performed By: #### L 500.2500, L500.3400, L100.0500 #### [facility] [address] [place], [address] UROBILI Normal Normal Normal [facility] Comment on above: Order Comment: 102.2 Performed By: #### L 500.2500, L500.3400, L100.0500 #### [facility] [address] [place], [address] Bilirubin Test strip Ql (U)O rdered By: Balwinder Alves on 10-10-2024 Bilirubin Ql (U) Negative Negative [facility] Glucose Ql (U)Ordered By: Jen Alves on 10-10-2024 Urine Glucose (UA) Normal mg/dl Normal [facility] Ketones Test strip Ql (U)Ord ered By: Balwinder Alves on 10-10-2024 Ketones Ql (U) Negative Negative [facility] Nitrite Test strip Ql (U)Ord ered By: Balwinder Alves on 10-10-2024 Nitrite Ql (U) Positive High Negative [facility] Protein Test strip Ql (U)Ord ered By: Balwinder Alves on 10-10-2024 Protein Ql (U) 15 mg/dl High Negative [facility] Urine blood detectionOrdered By: Balwinder Alves on 10-10-2024 Urine Occult Blood 50 /ul High Negative [facility] Urine clarityOrdered By: Javed Alves on 10-10-2024 Clarity (U) Sl. Cloudy Clear [facility] Urine color determinationOrd ered By: Balwinder Alves on 10-10-2024 Color (U) Yellow Yellow [facility] Urine cultureOrdered By: Javed Alves on 10-10-2024 Bacteria identified Cx Nom (U) ESBL Escherichia coli Abnormal [facility] Bacteria identified Cx Nom (U) Proteus mirabilis Abnormal [facility] Urine leukocyte esterase det ection by dipstickOrdered By: Balwinder Alves on 10-10-2024 Leukocyte esterase Test strip Ql (U) 500 /ul High Negative [facility] Urine pHOrdered By: Balwinder blackman on 10-10-2024 pH (U) 6.5 [pH] 5.0 - 8.0 [facility] Urine specific gravity measu rementOrdered By: Balwinder Alves on 10-10-2024 Specific gravity (U) [Rel density] 1.010 1.002-1.030 [facility] Urobilinogen Ql (U)Ordered B y: Balwinder Alves on 10-10-2024 Urine Urobilinogen Normal mg/dl Normal [facility] Automated blood erythrocyte countOrdered By: Balwinder Alves on 09-14-2024 RBC (Bld) [#/Vol] 3.90 10*6/uL Low 4.2-5.4 [facility] Comment on above: Order Comment: 102.2 Performed By: #### L 100.0500, L500.2500 #### [facility] [address] [place], [address] Automated blood hematocrit ( percentage)Ordered By: Balwinder Alves on 09-14-2024 Hematocrit (Bld) [Volume fraction] 37.7 % Normal 37-47 [facility] Comment on above: Order Comment: 102.2 Performed By: #### L 100.0500, L500.2500 #### [facility] [address] [place], [address] Basic Metabolic Profile (BMP )on 09-14-2024 BUN/CRE 15.5 RATIO Normal 10-20 [facility] Comment on above: Order Comment: 102.2 Performed By: #### L 100.0500, L500.2500 #### [facility] [address] [place], [address] CA,Total 9.4 mg/dL Normal 8.5-10.1 [facility] Comment on above: Order Comment: 102.2 Performed By: #### L 100.0500, L500.2500 #### [facility] [address] [place], [address] EST GFR - AA 102 mL/min Normal >60 [facility] Comment on above: Order Comment: 102.2 Result Comment: Afri can [place] GFR Calc Performed By: #### L 100.0500, L500.2500 #### [facility] [address] [place], [address] GAP 3 Low 5-15 [facility] Comment on above: Order Comment: 102.2 Performed By: #### L 100.0500, L500.2500 #### [facility] [address] [place], [address] GFR/1.73 sq M.predicted among non-blacks MDRD (S/P/Bld) [Vol rate/Area] 84 mL/min/{1.73_m2} Normal >60 [facility] Comment on above: Order Comment: 102.2 Result Comment: Non- GFR Calc Performed By: #### L 100.0500, L500.2500 #### [facility] [address] [place], [address] Blood urea nitrogen (BUN)/cr eatinine ratioOrdered By: Balwinder Alves on 09-14-2024 Urea nitrogen/Creatinine [Mass ratio] 15.5 mg/mg 10-20 [facility] CBC-Complete Blood Cnt No Di ffon 09-14-2024 RDW SD 48.3 fl High 35.1-43.9 [facility] Comment on above: Order Comment: 102.2 Performed By: #### L 100.0500, L500.2500 #### [facility] [address] [place], [address] Carbon dioxide measurementOr dered By: Balwinder Alves on 09-14-2024 CO2 [Moles/Vol] 34.0 mmol/L High 21.0-32.0 [facility] Comment on above: Order Comment: 102.2 Performed By: #### L 100.0500, L500.2500 #### [facility] [address] [place], [address] Chloride measurementOrdered By: Balwinder Alves on 09-14-2024 Chloride [Moles/Vol] 103 mmol/L Normal 98-107 [facility] Comment on above: Order Comment: 102.2 Performed By: #### L 100.0500, L500.2500 #### [facility] [address] [place], [address] Erythrocyte distribution wid th (RBC) [Ratio]Ordered By: Balwinder Alves on 09-14-2024 Erythrocyte distribution width (RBC) [Entitic vol] 48.3 fL High 35.1-43.9 [facility] Erythrocyte distribution wid th ratioOrdered By: Balwinder Alves on 09-14-2024 Erythrocyte distribution width (RBC) [Ratio] 14.0 % Normal 11.6-14.6 [facility] Comment on above: Order Comment: 102.2 Performed By: #### L 100.0500, L500.2500 #### [facility] [address] [place], [place], [id number] Estimated glomerular filtrat ion rate (GFR) AmericanOrdered By: Balwinder Alves on 09-14-2024 Estimated GFR (MDRD) Amer 102 mL/min >60 [facility] Comment on above: GFR Calc Glomerular filtration rate ( GFR) estimationOrdered By: Balwinder Alves on 09-14-2024 Estimated GFR (MDRD) Non-Af Amer 84 mL/min >60 [facility] Comment on above: Non- GFR Calc Glucose measurementOrdered B y: Balwinder Alves on 09-14-2024 Glucose [Mass/Vol] 168 mg/dL High 74-106 [facility] Comment on above: Fasting Glucose resu lt greater than or equal to 126 mg/dL suggests DIABETES MELLITUS per A.D.A. criteria. Order Comment: 102.2 Result Comment: Fast ing Glucose result greater than or equal to 126 mg/dL suggests DIABETES MELLITUS per A.D.A. criteria. Performed By: #### L 100.0500, L500.2500 #### [facility] [address] [place], [address] Hemoglobin measurementOrdere d By: Balwinder Alves on 09-14-2024 Hemoglobin (Bld) [Mass/Vol] 11.1 g/dL Low 12.0-15.0 [facility] Comment on above: Order Comment: 102.2 Performed By: #### L 100.0500, L500.2500 #### [facility] [address] [place], [address] MCV (mean corpuscular volume ) determinationOrdered By: Balwinder Alves on 09-14-2024 MCV (RBC) [Entitic vol] 96.7 fL Normal 81-99 [facility] Comment on above: Order Comment: 102.2 Performed By: #### L 100.0500, L500.2500 #### [facility] [address] [place], [address] Mean corpuscular hemoglobin (MCH) determinationOrdered By: Balwinder Alves on 09-14-2024 MCH (RBC) [Entitic mass] 28.5 pg Normal 27.0-32.0 [facility] Comment on above: Order Comment: 102.2 Performed By: #### L 100.0500, L500.2500 #### [facility] [address] [place], [address] Mean corpuscular hemoglobin concentration (MCHC) determinationOrdered By: Balwinder Alves on 09-14-2024 MCHC (RBC) [Mass/Vol] 29.4 g/dL Low 32-36 [facility] Comment on above: Order Comment: 102.2 Performed By: #### L 100.0500, L500.2500 #### [facility] [address] [place], [address] Mean platelet volume determi nationOrdered By: Balwinder Alves on 09-14-2024 Platelet mean volume (Bld) [Entitic vol] 8.2 fL Normal 6.2-12.0 [facility] Comment on above: Order Comment: 102.2 Performed By: #### L 100.0500, L500.2500 #### [facility] [address] [place], [address] Platelet countOrdered By: Jen Alves on 09-14-2024 Platelets (Bld) [#/Vol] 178 10*3/uL Normal 150-450 [facility] Comment on above: Order Comment: 102.2 Performed By: #### L 100.0500, L500.2500 #### [facility] [address] [place], [address] Potassium measurementOrdered By: Balwinder Alves on 09-14-2024 Potassium [Moles/Vol] 4.6 mmol/L Normal 3.5-5.1 [facility] Comment on above: Order Comment: 102.2 Performed By: #### L 100.0500, L500.2500 #### [facility] [address] [place], [address] Serum anion gap measurementO rdered By: Balwinder Alves on 09-14-2024 Anion gap [Moles/Vol] 3 mmol/L Low 5-15 [facility] Serum or plasma calcium jacqueline urement (mass/volume)Ordered By: Balwinder Alves on 09-14-2024 Calcium [Mass/Vol] 9.4 mg/dL 8.5-10.1 [facility] Serum or plasma creatinine m easurement (mass/volume)Ordered By: Balwinder Alves on 09-14-2024 Creatinine [Mass/Vol] 0.71 mg/dL Normal 0.55-1.02 [facility] Comment on above: The validity of the calculated GFR & GFRAA in patients over 70 years has not been determined. Clinical correlation is essential. Order Comment: 102.2 Result Comment: The validity of the calculated GFR GFRAA in patients over 70 years has not been determined. Clinical correlation is essential. Performed By: #### L 100.0500, L500.2500 #### [facility] [address] [place], [address] Serum or plasma urea nitroge n measurement (mass/volume)Ordered By: Balwinder Alves on 09-14-2024 Urea nitrogen [Mass/Vol] 11 mg/dL Normal 7-18 [facility] Comment on above: Order Comment: 102.2 Performed By: #### L 100.0500, L500.2500 #### [facility] [address] [place], [address] Sodium levelOrdered By: Balwinder Alves on 09-14-2024 Sodium [Moles/Vol] 139 mmol/L Normal 136-145 [facility] Comment on above: Order Comment: 102.2 Performed By: #### L 100.0500, L500.2500 #### [facility] [address] [place], [address] White blood cell (WBC) count Ordered By: Balwinder Alves on 09-14-2024 WBC (Bld) [#/Vol] 5.6 10*3/uL Normal 4.4-11.0 [facility] Comment on above: Order Comment: 102.2 Performed By: #### L 100.0500, L500.2500 #### [facility] [address] [place], [address] Basophil percentageOrdered B y: Balwinder Alves on 12-14-2023 Chloride [Moles/Vol] 105 mmol/L 98-107 [facility] Cholesterol [Mass/Vol] 128 mg/dL <200 [facility] Comment on above: <200 mg/dL Desirable 200-240 mg/dL Borderline >240 mg/dL High Risk Glucose [Mass/Vol] 132 mg/dL 74-106 [facility] Comment on above: Fasting Glucose resu lt greater than or equal to 126 mg/dL suggests DIABETES MELLITUS per A.D.A. criteria. Hemoglobin (Bld) [Mass/Vol] 12.5 g/dL 12.0-15.0 [facility] Potassium [Moles/Vol] 4.4 mmol/L 3.5-5.1 [facility] Sodium [Moles/Vol] 142 mmol/L 136-145 [facility] Triglyceride [Mass/Vol] 178 mg/dL <199 [facility] Comment on above: The drugs N-Acetylcy steine and Metamizole may falsely depress this assay.Serum Triglycerides Reference Interval Normal <150 mg/dL Borderline high 150 - 199 mg/dL High 200 - 499 mg/dL Very High > or = 500 mg/dL WBC (Bld) [#/Vol] 4.9 10*3/uL 4.4-11.0 [facility] Determination of erythrocyte mean corpuscular volume (MCV)Ordered By: Balwinder Alves on 12-14-2023 MCV (RBC) [Entitic vol] 92.6 fL 81-99 [facility] Erythrocyte distribution wid th ratioOrdered By: Balwinder Alves on 12-14-2023 Erythrocyte distribution width (RBC) [Ratio] 15.4 % 11.6-14.6 [facility] Erythrocyte distribution wid th standard deviationOrdered By: Balwinder Alves on 12-14-2023 Erythrocyte distribution width (RBC) [Entitic vol] 52.9 fL 35.1-43.9 [facility] Hematocrit Auto (Bld) [Volum e fraction]Ordered By: Balwinder Alves on 12-14-2023 Hematocrit (Bld) [Volume fraction] 41.1 % 37-47 [facility] - Chemistry and C hemistry - challengeOrdered By: Balwinder Alves on 12-14-2023 Cholesterol in HDL [Mass/Vol] 49 mg/dL >40 [facility] Comment on above: The drugs N-Acetylcy steine and Metamizole may falsely depress this assay. Reference Range HDL <40 mg/dL Low HDL Cholesterol HDL >or= 60 mg/dL High HDL Cholesterol Cholesterol in LDL [Mass/Vol] 43 mg/dL 0-130 [facility] CO2 [Moles/Vol] 32.0 mmol/L 21.0-32.0 [facility] Urea nitrogen/Creatinine [Mass ratio] 12.2 mg/mg 10-20 [facility] - Hematology and Cell countsOrdered By: Balwinder Alves on 12-14-2023 MCH (RBC) [Entitic mass] 28.2 pg 27.0-32.0 [facility] MCHC (RBC) [Mass/Vol] 30.4 g/dL 32-36 [facility] Platelet mean volume (Bld) [Entitic vol] 8.5 fL 6.2-12.0 [facility] Platelets (Bld) [#/Vol] 174 10*3/uL 150-450 [facility] No Panel InformationOrdered By: Balwinder Alves on 12-14-2023 Estimated GFR (MDRD) Amer 130 mL/min >60 [facility] Comment on above: GFR Calc Estimated GFR (MDRD) Non-Af Amer 107 mL/min >60 [facility] Comment on above: Non- GFR Calc Vitamin D 25-Hydroxy 42.9 ng/mL [facility] Comment on above: Vitamin D 25(OH) Sta tus Range Deficiency <20 ng/mL (50nmol/L) Insufficiency 20 - 30 ng/mL (50 - 75 nmol/L) Sufficiency 30 - 100 ng/mL (75 - 250 nmol/L) Toxicity >100 ng/mL (>250 nmol/L) VLDL Cholesterol 36 mg/dL 5-40 [facility] RBC Auto (Bld) [#/Vol]Ordere d By: Balwinder Alves on 12-14-2023 RBC (Bld) [#/Vol] 4.44 10*6/uL 4.2-5.4 [facility] Serum or plasma calcium jacqueline urement (mass/volume)Ordered By: Balwinder Alves on 12-14-2023 Calcium [Mass/Vol] 8.9 mg/dL 8.5-10.1 [facility] Serum or plasma creatinine m easurement (mass/volume)Ordered By: Balwinder Alves on 12-14-2023 Creatinine [Mass/Vol] 0.58 mg/dL 0.55-1.02 [facility] Comment on above: The validity of the calculated GFR & GFRAA in patients over 70 years has not been determined. Clinical correlation is essential. Serum or plasma urea nitroge n measurement (mass/volume)Ordered By: Balwinder Alves on 12-14-2023 Urea nitrogen [Mass/Vol] 7 mg/dL 7-18 [facility] Thin prep Papanicolaou smear with manual screeningOrdered By: Balwinder Alves on 12-14-2023 Thin prep Papanicolaou smear with manual screening 5 5-15 [facility] Whole blood hemoglobin A1c/t otal hemoglobin ratio (mass fraction)Ordered By: Balwinder Alves on 12-14-2023 HbA1c (Bld) [Mass fraction] 6.2 % 3.8-5.6 [facility] Comment on above: Normal < 5.7 % Predi abetic 5.7 - 6.4 % Diabetic >or= 6.5 % Please note range changes. Office Visiton 12-09-2023 Follow-up visit [id number] Joy Huff [place] 1945 F Date Provider Department Center 12/09/2023 [id number], [facility] OR None No family history on file Level of Service:[id number] [place] OFFICE/OUTPATIENT ESTABLISHED LOW MDM 20 MIN Reason for Visit and Comments: Follow-up [355747] - L fibula fx Normal [employer] [facility] Progress Noteon 12-09-2023 Progress Note [facility] [address] [place] [address] [place] [id number] Dept: [phone] Dept [place] 1945 [id number] 12/09/2023 HISTORY OF PRESENT ILLNESS: Gumaro returns [...] instructed on it (more content not included)... [facility] 36on 10-14-2023 36 Spoke with Beny at [facility] and clarified that Gumaro should bear weight in her boot until next visit and should use walker as needed for balance. [facility] 36 Name of Caller: Gareth at [facility] Contact ask for Gareth Reason" Gareth is [...] requesting a call back. Office Name: [facility] Office Visiton 10-14-2023 Follow-up visit [id number] oJy Huff [place] 1945 F Date Provider Department Center 10/14/2023 [id number], [facility] OR None No family history on file Level of Service:[id number] [place] OFFICE/OUTPATIENT ESTABLISHED LOW MDM 20 MIN Reason for Visit and Comments: Follow-up [140713] - Left distal fibula fx DOI 07/02/23 [facility] Progress Noteon 10-14-2023 Progress Note [facility] [facility] [address] [facility] [address] Dept: [phone] Dept Gumaro Huff 1945 [id number] 10/14/2023 HISTORY OF PRESENT ILLNESS: Gumaro returns [...] the above p (more content not included)... [facility] Clostridioides difficile nuc leic acid assay by PCROrdered By: Balwinder Alves on 09-23-2023 C. difficile DNA DIGNA+probe Ql (Unsp spec) [facility] Clostridium difficile detect ion by polymerase chain reactionOrdered By: Balwinder Alves on 09-23-2023 C. difficile DNA DIGNA+probe Ql (Unsp spec) [facility] Basophil percentageOrdered B y: Balwinder Alves on 09-14-2023 Chloride [Moles/Vol] 102 mmol/L 98-107 [facility] Glucose [Mass/Vol] 142 mg/dL 74-106 [facility] Comment on above: Fasting Glucose resu lt greater than or equal to 126 mg/dL suggests DIABETES MELLITUS per A.D.A. criteria. Potassium [Moles/Vol] 4.1 mmol/L 3.5-5.1 [facility] Sodium [Moles/Vol] 138 mmol/L 136-145 [facility] WBC (Bld) [#/Vol] 5.9 10*3/uL 4.4-11.0 [facility] Blood erythrocytes count (nu mber/volume)Ordered By: Balwinder Alves on 09-14-2023 RBC (Bld) [#/Vol] 4.96 10*6/uL 4.2-5.4 [facility] Blood hemoglobin measurement (mass/volume)Ordered By: Balwinder Alves on 09-14-2023 Hemoglobin (Bld) [Mass/Vol] 13.3 g/dL 12.0-15.0 [facility] Blood platelet mean volumeOr dered By: Balwinder Alves on 09-14-2023 Platelet mean volume (Bld) [Entitic vol] 8.3 fL 6.2-12.0 [facility] Determination of erythrocyte mean corpuscular volume (MCV)Ordered By: Balwinder Alves on 09-14-2023 MCV (RBC) [Entitic vol] 92.5 fL 81-99 [facility] Hematocrit Auto (Bld) [Volum e fraction]Ordered By: Balwinder Alves on 09-14-2023 Hematocrit (Bld) [Volume fraction] 45.9 % 37-47 [facility] Laboratory - Chemistry and C hemistry - challengeOrdered By: Balwinder Alves on 09-14-2023 CO2 [Moles/Vol] 31.0 mmol/L 21.0-32.0 [facility] Urea nitrogen/Creatinine [Mass ratio] 10.1 mg/mg 10-20 [facility] Laboratory - Hematology and Cell countsOrdered By: Balwinder Alves on 09-14-2023 Erythrocyte distribution width (RBC) [Entitic vol] 47.0 fL 35.1-43.9 [facility] Erythrocyte distribution width (RBC) [Ratio] 13.9 % 11.6-14.6 [facility] MCH (RBC) [Entitic mass] 26.8 pg 27.0-32.0 [facility] MCHC Auto (RBC) [Mass/Vol]Or dered By: Balwinder Alves on 09-14-2023 MCHC (RBC) [Mass/Vol] 29.0 g/dL 32-36 [facility] No Panel InformationOrdered By: Balwinder Alves on 09-14-2023 Estimated GFR (MDRD) Amer 125 mL/min >60 [facility] Comment on above: GFR Calc Estimated GFR (MDRD) Non-Af Amer 103 mL/min >60 [facility] Comment on above: Non- GFR Calc Office Visiton 09-14-2023 Follow-up visit [id number] Joy Huff blair 1945 F Date Provider Department Center 09/14/2023 [id number]-GANIRZANDER GRIGGS [facility] None No family history on file Level of Service:01013 [place] OFFICE/OUTPATIENT NEW MODERATE MDM 45-59 MINUTES Reason for Visit and Comments: New Patient [542] - LT distal fibula fx DOI 07/02/23 Normal [facility] Platelets bldOrdered By: Javed Alves on 09-14-2023 Platelets (Bld) [#/Vol] 196 10*3/uL 150-450 [facility] Progress Noteon 09-14-2023 Progress Note [facility] [address] [place] [address] Dept: [phone] Dept Gumaro [place] 1945 [id number] 09/14/2023 HISTORY OF PRESENT ILLNESS: Gumaro is a 78 y.o. female here today for evaluation of her Left distal fibula fx DOI 07/02/23. Patient has been in a walking boot. Patient is diabetic. She is currently in a senior living due to injury. She was supposed to be seen closer to her fx date but her appointments were canceled due to senior living transportation issues. She has been nonweightbearing since her injury. Gumaro states the problem has been present for 3 months est Gumaro states the problem started as the result of a fall, tripped walking into her home. Gumaro has tried or has been treated with the following: walking boot, senior living PT. Review of Systems Surgical Risk Factors: [...] given he (more content not included)... Normal [facility] Serum or plasma calcium jacqueline urement (mass/volume)Ordered By: Balwinder Alves on 09-14-2023 Calcium [Mass/Vol] 8.9 mg/dL 8.5-10.1 [facility] Serum or plasma creatinine m easurement (mass/volume)Ordered By: Balwinder Alves on 09-14-2023 Creatinine [Mass/Vol] 0.59 mg/dL 0.55-1.02 [facility] Comment on above: The validity of the calculated GFR & GFRAA in patients over 70 years has not been determined. Clinical correlation is essential. Serum or plasma urea nitroge n measurement (mass/volume)Ordered By: Balwinder Alves on 09-14-2023 Urea nitrogen [Mass/Vol] 6 mg/dL 7-18 [facility] Thin prep Papanicolaou smear with manual screeningOrdered By: Balwinder Alves on 09-14-2023 Thin prep Papanicolaou smear with manual screening 5 5-15 [facility] XR ANKLE 3+ VIEWS [...] at the lateral malleolar fracture site. Normal [facility] XR FOOT 3+ VIEWS LEFTon 09-04 XR [...] at the lateral malleolar fracture site. Normal [facility] 36on 09-03-2023 36 Left distal fibula f x doi 07/02/23 she is in a boot. Can only be seen in [place] or bath. No wads [facility] 36on 09-02-2023 36 Gareth an RN at [facility] called [phone] ext [phone], he states that they just got Gumaro from [place] and they are looking for her to [...] 2:30 today and then works again tomorrow. [facility] 36 07-17-2023 36 LVM to schedule with Dr. Ureña on Thursday at 1pm in [facility] or 9am in [place] if not already double booked. Normal [facility] .Auto DiffOrdered By: SYSTEM SYSTEM on 07-04-2023 Basophil, Absolute 0.0 103/mcL Normal 0.0-0.2 AO Wo rkflow SS Comment on above: Performed By: #### L IPID, ADIFF, ANEU, CMP, CBC, GFR #### [address] [address] Basophils/100 WBC (Bld) 0.4 % Normal 0.0-2.5 A O Workflow SS Comment on above: Performed By: #### L IPID, ADIFF, ANEU, CMP, CBC, GFR #### [address] [address] Eosinophil, Absolute 0.4 103/mcL Normal 0.0-0.4 AO Workflow SS Comment on above: Performed By: #### L IPID, ADIFF, ANEU, CMP, CBC, GFR #### [address] [address] Eosinophils/100 WBC (Bld) 6.9 % Normal 0.0-7.0 AO Workflow SS Comment on above: Performed By: #### L IPID, ADIFF, ANEU, CMP, CBC, GFR #### Sudhir [address] [address] Lymphocyte, Absolute 1.7 103/mcL Normal 0.8-3.9 AO Workflow SS Comment on above: Performed By: #### L IPID, ADIFF, ANEU, CMP, CBC, GFR #### [address] [address] Lymphocytes/100 WBC (Bld) 27.3 % Normal 10.0-50.0 AO Workflow SS Comment on above: Performed By: #### L IPID, ADIFF, ANEU, CMP, CBC, GFR #### [address] [address] Monocyte, Absolute 0.4 103/mcL Normal 0.2-1.0 AO Wo rkflow SS Comment on above: Performed By: #### L IPID, ADIFF, ANEU, CMP, CBC, GFR #### [address] [address] Monocytes/100 WBC (Bld) 6.4 % Normal 1.7-13.0 A O Workflow SS Comment on above: Performed By: #### L IPID, ADIFF, ANEU, CMP, CBC, GFR #### [address] [address] Neutrophils/100 WBC (Bld) 59.0 % Normal 37.0-80.0 AO Workflow SS Comment on above: Performed By: #### L IPID, ADIFF, ANEU, CMP, CBC, GFR #### [address] [address] .GFRon 07-04-2023 GFR 93 ml/min/1.73sqm Normal [facility] ([place]) Comment on above: Result Comment: GFR Population [...] IPID, ADIFF, ANEU, CMP, CBC, GFR #### [address] [address] GFR Non- 77 ml/min/1.73sqm Normal [facility] ([place]) Comment on above: Result Comment: GFR Population [...] IPID, ADIFF, ANEU, CMP, CBC, GFR #### [address] [address] .NEUABSOrdered By: SYSTEM SY STEM on 07-04-2023 Neutrophil, Absolute 3.7 103/mcL Normal 2.9-6.2 AO Workflow SS Comment on above: Performed By: #### L IPID, ADIFF, ANEU, CMP, CBC, GFR #### [address] [address] BMPon 07-04-2023 BUN/Creatinine Ratio 14 ratio Normal 7-27 [facility] ([place]) Comment on above: Performed By: #### L IPID, ADIFF, ANEU, CMP, CBC, GFR #### [address] [address] BMPOrdered By: SYSTEM SYSTEM on 07-04-2023 Calcium [Mass/Vol] 8.1 mg/dL Low 8.4-10.2 AO ADM SS Comment on above: Performed By: #### L IPID, ADIFF, ANEU, CMP, CBC, GFR #### [address] [address] Chloride [Moles/Vol] 104 mmol/L Normal 98-107 AO A DM SS Comment on above: Performed By: #### L IPID, ADIFF, ANEU, CMP, CBC, GFR #### [address] [address] CO2 [Moles/Vol] 29 mmol/L Normal 23-31 AO ADM SS Comment on above: Performed By: #### L IPID, ADIFF, ANEU, CMP, CBC, GFR #### [address] [address] Creatinine [Mass/Vol] 0.73 mg/dL Normal 0.55-1.02 AO ADM SS Comment on above: Performed By: #### L IPID, ADIFF, ANEU, CMP, CBC, GFR #### [address] [address] Electrolyte Balance 6.0 mEq/L Normal 4.0-15.0 AO AD M SS Comment on above: Performed By: #### L IPID, ADIFF, ANEU, CMP, CBC, GFR #### [address] [address] Glucose [Mass/Vol] 145 mg/dL High 83-110 AO ADM SS Comment on above: Performed By: #### L IPID, ADIFF, ANEU, CMP, CBC, GFR #### [address] [address] Potassium [Moles/Vol] 4.9 mmol/L Normal 3.5-5.1 AO ADM SS Comment on above: Performed By: #### L IPID, ADIFF, ANEU, CMP, CBC, GFR #### [address] [address] Sodium [Moles/Vol] 139 mmol/L Normal 136-145 AO ADM SS Comment on above: Performed By: #### L IPID, ADIFF, ANEU, CMP, CBC, GFR #### [address] [address] Urea nitrogen [Mass/Vol] 10 mg/dL Normal 7-18 AO ADM SS Comment on above: Performed By: #### L IPID, ADIFF, ANEU, CMP, CBC, GFR #### Sud[facility] [place] [id number] CBCOrdered By: SYSTEM SYSTEM on 07-04-2023 Erythrocyte distribution width (RBC) [Ratio] 14.2 % Normal 11.5-14.5 AO Workflow SS Comment on above: Performed By: #### L IPID, ADIFF, ANEU, CMP, CBC, GFR #### Sudhir [place] [id number] Hematocrit (Bld) [Volume fraction] 35.4 % Low 37.0-47.0 AO Workflow SS Comment on above: Performed By: #### L IPID, ADIFF, ANEU, CMP, CBC, GFR #### Sud[facility] [place] [id number] MCH (RBC) [Entitic mass] 28.7 pg Normal 27.0-31.2 AO Workflow SS Comment on above: Performed By: #### L IPID, ADIFF, ANEU, CMP, CBC, GFR #### [place] [address] MCHC 32.4 G/dL Low 33.0-37.0 AO Workflow SS Comment on above: Performed By: #### L IPID, ADIFF, ANEU, CMP, CBC, GFR #### [facility] [place] [id number] MCV (RBC) [Entitic vol] 88.6 fL Normal 80.0-94.0 A O Workflow SS Comment on above: Performed By: #### L IPID, ADIFF, ANEU, CMP, CBC, GFR #### [address] [address] Platelet mean volume (Bld) [Entitic vol] 6.5 fL Low 7.4-10.4 AO Workflow SS Comment on above: Performed By: #### L IPID, ADIFF, ANEU, CMP, CBC, GFR #### [place] [place] [address] CBCon 07-04-2023 Hgb 11.4 G/dL Low 12.0-16.0 [facility] ([place]) Comment on above: Performed By: #### L IPID, ADIFF, ANEU, CMP, CBC, GFR #### [facility] [address] [place], [place] [address] Platelet 165 10 3/mcL Normal 130-400 [facility] ([place]) Comment on above: Performed By: #### L IPID, ADIFF, ANEU, CMP, CBC, GFR #### [place] [address] [place], [place] [address] RBC 3.99 10 6/mcL Low 4.20-5.40 [facility] ([place]) Comment on above: Performed By: #### L IPID, ADIFF, ANEU, CMP, CBC, GFR #### [place] [address] [place], [place] [address] WBC 6.3 10 3/mcL Normal 4.6-10.8 [facility] ([place]) Comment on above: Performed By: #### L IPID, ADIFF, ANEU, CMP, CBC, GFR #### [place] [address] [place], [place] [address] LABORATORYOrdered By: Darwin Diaz on 07-04-2023 Blood Glucose Testing Reason Routine (07/04/23 4:36 PM) [facility] Work Phone: Glucose [Mass/Vol] 125 mg/dL Invalid Interpretation Code 82 - 115 mg/dL [facility] Work Phone: Blood Glucose Testing Reason Routine (07/04/23 10:38 AM) [facility] Work Phone: LABORATORYOrdered By: Loretta Mejia on 07-04-2023 Glucose [Mass/Vol] 140 mg/dL Invalid Interpretation Code 82 - 115 mg/dL [facility] Work Phone: Glucose [Mass/Vol] 139 mg/dL Invalid Interpretation Code 82 - 115 mg/dL [facility] Work Phone: LABORATORYOrdered By: SYSTEM SYSTEM on [...] IPID, ADIFF, ANEU, CMP, CBC, GFR #### [address] [address] .Auto Diffon 07-03-2023 Basophil, Absolute 0.0 10 3/mcL Normal 0.0-0.2 [facility] ([place]) Comment on above: Performed By: #### L IPID, ADIFF, ANEU, CMP, CBC, GFR #### [address] [address] Basophils/100 WBC (Bld) 0.5 % Normal 0.0-2.5 A [facility] ([place]) Comment on above: Performed By: #### L IPID, ADIFF, ANEU, CMP, CBC, GFR #### [address] [address] Eosinophil, Absolute 0.4 10 3/mcL Normal 0.0-0.4 [facility] ([place] Comment on above: Performed By: #### L IPID, ADIFF, ANEU, CMP, CBC, GFR #### [address] [address] Eosinophils/100 WBC (Bld) 6.7 % Normal 0.0-7.0 [facility] ([place]) Comment on above: Performed By: #### L IPID, ADIFF, ANEU, CMP, CBC, GFR #### [address] [address] Lymphocyte, Absolute 1.8 10 3/mcL Normal 0.8-3.9 [facility] ([place] Comment on above: Performed By: #### L IPID, ADIFF, ANEU, CMP, CBC, GFR #### [address] [address] Lymphocytes/100 WBC (Bld) 31.4 % Normal 10.0-50.0 [facility] ([place]) Comment on above: Performed By: #### L IPID, ADIFF, ANEU, CMP, CBC, GFR #### [address] [address] Monocyte, Absolute 0.4 10 3/mcL Normal 0.2-1.0 [facility] ([place]) Comment on above: Performed By: #### L IPID, ADIFF, ANEU, CMP, CBC, GFR #### [address] [address] Monocytes/100 WBC (Bld) 6.4 % Normal 1.7-13.0 [facility] ([place]) Comment on above: Performed By: #### L IPID, ADIFF, ANEU, CMP, CBC, GFR #### [address] [address] Neutrophils/100 WBC (Bld) 55.0 % Normal 37.0-80.0 [facility] ([place]) Comment on above: Performed By: #### L IPID, ADIFF, ANEU, CMP, CBC, GFR #### [address] [address] .GFRon 07-03-2023 GFR 92 ml/min/1.73sqm Normal [facility] ([place]) Comment on above: Result Comment: GFR Population [...] IPID, ADIFF, ANEU, CMP, CBC, GFR #### [address] [address] GFR Non- 76 ml/min/1.73sqm Normal [facility] ([place]) Comment on above: Result Comment: GFR Population [...] IPID, ADIFF, ANEU, CMP, CBC, GFR #### [address] [address] .NEUABSon 07-03-2023 Neutrophil, Absolute 3.2 10 3/mcL Normal 2.9-6.2 [facility] [place] Comment on above: Performed By: #### L IPID, ADIFF, ANEU, CMP, CBC, GFR #### [address] [address] BMPon 07-03-2023 BUN/Creatinine Ratio 11 ratio Normal 7-27 [facility] ([place]) Comment on above: Performed By: #### L IPID, ADIFF, ANEU, CMP, CBC, GFR #### [address] [address] Calcium [Mass/Vol] 8.4 mg/dL Normal 8.4-10.2 [facility] ([place]) Comment on above: Performed By: #### L IPID, ADIFF, ANEU, CMP, CBC, GFR #### [address] [address] Chloride [Moles/Vol] 103 mmol/L Normal 98-107 [facility] ([place]) Comment on above: Performed By: #### L IPID, ADIFF, ANEU, CMP, CBC, GFR #### [address] [address] CO2 [Moles/Vol] 31 mmol/L Normal 23-31 [facility] ([place]) Comment on above: Performed By: #### L IPID, ADIFF, ANEU, CMP, CBC, GFR #### [address] [address] Creatinine [Mass/Vol] 0.74 mg/dL Normal 0.55-1.02 [facility] ([place]) Comment on above: Performed By: #### L IPID, ADIFF, ANEU, CMP, CBC, GFR #### [address] [address] Electrolyte Balance 6.0 mEq/L Normal 4.0-15.0 [facility] ([place]) Comment on above: Performed By: #### L IPID, ADIFF, ANEU, CMP, CBC, GFR #### [address] [address] Glucose [Mass/Vol] 165 mg/dL High 83-110 [facility] ([place]) Comment on above: Performed By: #### L IPID, ADIFF, ANEU, CMP, CBC, GFR #### [address] [address] Potassium [Moles/Vol] 4.6 mmol/L Normal 3.5-5.1 [facility] ([place]) Comment on above: Performed By: #### L IPID, ADIFF, ANEU, CMP, CBC, GFR #### [address] [address] Sodium [Moles/Vol] 140 mmol/L Normal 136-145 [facility] ([place]) Comment on above: Performed By: #### L IPID, ADIFF, ANEU, CMP, CBC, GFR #### [address] [address] Urea nitrogen [Mass/Vol] 8 mg/dL Normal 7-18 [facility] ([place]) Comment on above: Performed By: #### L IPID, ADIFF, ANEU, CMP, CBC, GFR #### [address] [address] CBCon 07-03-2023 Erythrocyte distribution width (RBC) [Ratio] 14.4 % Normal 11.5-14.5 [facility] ([place] Comment on above: Performed By: #### L IPID, ADIFF, ANEU, CMP, CBC, GFR #### [place] [address] Hematocrit (Bld) [Volume fraction] 36.4 % Low 37.0-47.0 [facility] ([place] Comment on above: Performed By: #### L IPID, ADIFF, ANEU, CMP, CBC, GFR #### [address] [address] Hgb 11.6 G/dL Low 12.0-16.0 [facility] ([place]) Comment on above: Performed By: #### L IPID, ADIFF, ANEU, CMP, CBC, GFR #### [address] [address] MCH (RBC) [Entitic mass] 28.3 pg Normal 27.0-31.2 [facility] ([place]) Comment on above: Performed By: #### L IPID, ADIFF, ANEU, CMP, CBC, GFR #### [place] [address] MCHC 31.9 G/dL Low 33.0-37.0 [facility] ([place] Comment on above: Performed By: #### L IPID, ADIFF, ANEU, CMP, CBC, GFR #### [address] [address] MCV (RBC) [Entitic vol] 88.9 fL Normal 80.0-94.0 A [facility] ([place]) Comment on above: Performed By: #### L IPID, ADIFF, ANEU, CMP, CBC, GFR #### [place] [address] Platelet 158 10 3/mcL Normal 130-400 [facility] ([place] Comment on above: Performed By: #### L IPID, ADIFF, ANEU, CMP, CBC, GFR #### [address] [address] Platelet mean volume (Bld) [Entitic vol] 6.6 fL Low 7.4-10.4 [facility] ([place]) Comment on above: Performed By: #### L IPID, ADIFF, ANEU, CMP, CBC, GFR #### [address] [address] RBC 4.10 10 6/mcL Low 4.20-5.40 [facility] ([place]) Comment on above: Performed By: #### L IPID, ADIFF, ANEU, CMP, CBC, GFR #### [place] [address] [place], [place] [address] WBC 5.8 10 3/mcL Normal 4.6-10.8 [facility] ([place] Comment on above: Performed By: #### L IPID, ADIFF, ANEU, CMP, CBC, GFR #### [address] [address] LABORATORYOrdered By: Jose Shepard on 07-03-2023 Blood Glucose Testing Reason Routine (07/03/23 9:10 PM) [facility] Work Phone: LABORATORYOrdered By: SYSTEM SYSTEM on [...] 07-03-2023 Magnesium [Mass/Vol] 1.8 mg/dL Normal 1.8-2.4 [facility] ([place]) Comment on above: Performed By: #### L IPID, ADIFF, ANEU, CMP, CBC, GFR #### [address] [address] .Auto Diffon 07-02-2023 Basophil, Absolute 0.0 10 3/mcL Normal 0.0-0.2 [facility] ([place] Comment on above: Performed By: #### A DIFF, MG, ANEU, GFR, BMP, CBC #### [address] [address] Basophils/100 WBC (Bld) 0.7 % Normal 0.0-2.5 A [facility] ([place] Comment on above: Performed By: #### A DIFF, MG, ANEU, GFR, BMP, CBC #### [address] [address] Eosinophil, Absolute 0.3 10 3/mcL Normal 0.0-0.4 [facility] ([place] Comment on above: Performed By: #### A DIFF, MG, ANEU, GFR, BMP, CBC #### [address] [address] Eosinophils/100 WBC (Bld) 5.6 % Normal 0.0-7.0 [facility] ([place] Comment on above: Performed By: #### A DIFF, MG, ANEU, GFR, BMP, CBC #### [address] [address] Lymphocyte, Absolute 1.8 10 3/mcL Normal 0.8-3.9 [facility] ([place] Comment on above: Performed By: #### A DIFF, MG, ANEU, GFR, BMP, CBC #### [address] [address] Lymphocytes/100 WBC (Bld) 33.2 % Normal 10.0-50.0 [facility] ([place] Comment on above: Performed By: #### A DIFF, MG, ANEU, GFR, BMP, CBC #### [address] [address] Monocyte, Absolute 0.4 10 3/mcL Normal 0.2-1.0 [facility] ([place] Comment on above: Performed By: #### A DIFF, MG, ANEU, GFR, BMP, CBC #### [address] [address] Monocytes/100 WBC (Bld) 7.8 % Normal 1.7-13.0 A [facility] ([place] Comment on above: Performed By: #### A DIFF, MG, ANEU, GFR, BMP, CBC #### [address] [address] Neutrophils/100 WBC (Bld) 52.7 % Normal 37.0-80.0 [facility] ([place] Comment on above: Performed By: #### A DIFF, MG, ANEU, GFR, BMP, CBC #### [address] [address] .GFRon 07-02-2023 GFR 85 ml/min/1.73sqm Normal [facility] ([place] Comment on above: Result Comment: GFR Population [...] IPID, ADIFF, ANEU, CMP, CBC, GFR #### [address] [address] GFR Non- 70 ml/min/1.73sqm Normal [facility] ([place] Comment on above: Result Comment: GFR Population [...] IPID, ADIFF, ANEU, CMP, CBC, GFR #### [address] [address] .NEUABSon 07-02-2023 Neutrophil, Absolute 2.9 10 3/mcL Normal 2.9-6.2 [facility] [place] Comment on above: Performed By: #### A DIFF, MG, ANEU, GFR, BMP, CBC #### [address] [address] BMPon 07-02-2023 BUN/Creatinine Ratio 11 ratio Normal 7-27 [facility] ([place] Comment on above: Performed By: #### A DIFF, MG, ANEU, GFR, BMP, CBC #### [address] [address] Calcium [Mass/Vol] 8.5 mg/dL Normal 8.4-10.2 [facility] ([place]) Comment on above: Performed By: #### A DIFF, MG, ANEU, GFR, BMP, CBC #### [address] [address] Chloride [Moles/Vol] 102 mmol/L Normal 98-107 [facility] ([place] Comment on above: Performed By: #### A DIFF, MG, ANEU, GFR, BMP, CBC #### [address] [address] CO2 [Moles/Vol] 31 mmol/L Normal 23-31 [facility] ([place] Comment on above: Performed By: #### A DIFF, MG, ANEU, GFR, BMP, CBC #### [address] [address] Creatinine [Mass/Vol] 0.79 mg/dL Normal 0.55-1.02 [facility] ([place]) Comment on above: Performed By: #### A DIFF, MG, ANEU, GFR, BMP, CBC #### [place] [address] Electrolyte Balance 5.0 mEq/L Normal 4.0-15.0 [facility] ([place]) Comment on above: Performed By: #### A DIFF, MG, ANEU, GFR, BMP, CBC #### [place] [address] Glucose [Mass/Vol] 144 mg/dL High 83-110 [facility] ([place]) Comment on above: Performed By: #### A DIFF, MG, ANEU, GFR, BMP, CBC #### [address] [address] Potassium [Moles/Vol] 3.9 mmol/L Normal 3.5-5.1 [facility] ([place]) Comment on above: Performed By: #### A DIFF, MG, ANEU, GFR, BMP, CBC #### [address] [address] Sodium [Moles/Vol] 138 mmol/L Normal 136-145 [facility] ([place]) Comment on above: Performed By: #### A DIFF, MG, ANEU, GFR, BMP, CBC #### [place] [address] Urea nitrogen [Mass/Vol] 9 mg/dL Normal 7-18 [facility] ([place]) Comment on above: Performed By: #### A DIFF, MG, ANEU, GFR, BMP, CBC #### [address] [address] CBCon 07-02-2023 Erythrocyte distribution width (RBC) [Ratio] 14.6 % High 11.5-14.5 [facility] ([place]) Comment on above: Performed By: #### A DIFF, MG, ANEU, GFR, BMP, CBC #### [place] [id number] Hematocrit (Bld) [Volume fraction] 35.7 % Low 37.0-47.0 [facility] ([place] Comment on above: Performed By: #### A DIFF, MG, ANEU, GFR, BMP, CBC #### [place] [address] Hgb 11.3 G/dL Low 12.0-16.0 [facility] ([place] Comment on above: Performed By: #### A DIFF, MG, ANEU, GFR, BMP, CBC #### [place] [address] MCH (RBC) [Entitic mass] 28.1 pg Normal 27.0-31.2 [facility] ([place] Comment on above: Performed By: #### A DIFF, MG, ANEU, GFR, BMP, CBC #### [place] [id number] MCHC 31.7 G/dL Low 33.0-37.0 [facility] ([place] Comment on above: Performed By: #### A DIFF, MG, ANEU, GFR, BMP, CBC #### [place] [id number] MCV (RBC) [Entitic vol] 88.6 fL Normal 80.0-94.0 A [facility] ([place] Comment on above: Performed By: #### A DIFF, MG, ANEU, GFR, BMP, CBC #### [address] [address] Platelet 159 10 3/mcL Normal 130-400 [facility] ([place] Comment on above: Performed By: #### A DIFF, MG, ANEU, GFR, BMP, CBC #### [place] [address] [place], [place] [address] Platelet mean volume (Bld) [Entitic vol] 6.6 fL Low 7.4-10.4 [facility] ([place] Comment on above: Performed By: #### A DIFF, MG, ANEU, GFR, BMP, CBC #### [place] [address] [place], [place] [address] RBC 4.03 10 6/mcL Low 4.20-5.40 [facility] ([place] Comment on above: Performed By: #### A DIFF, MG, ANEU, GFR, BMP, CBC #### [place] [address] [place], [place] [address] WBC 5.5 10 3/mcL Normal 4.6-10.8 [facility] ([place]) Comment on above: Performed By: #### A DIFF, MG, ANEU, GFR, BMP, CBC #### [address] [address] LABORATORYOrdered By: SYSTEM SYSTEM on 07-02-2023 Basophil, [...] 07-02-2023 Magnesium [Mass/Vol] 1.7 mg/dL Low 1.8-2.4 [facility] ([place]) Comment on above: Performed By: #### L IPID, ADIFF, ANEU, CMP, CBC, GFR #### [address] [address] .Auto Diffon 07-01-2023 Basophil, Absolute 0.0 10 3/mcL Normal 0.0-0.2 [facility] ([place]) Comment on above: Performed By: #### L IPID, ADIFF, ANEU, CMP, CBC, GFR #### [address] [address] Basophils/100 WBC (Bld) 0.5 % Normal 0.0-2.5 A [facility] ([place]) Comment on above: Performed By: #### L IPID, ADIFF, ANEU, CMP, CBC, GFR #### [address] [address] Eosinophil, Absolute 0.4 10 3/mcL Normal 0.0-0.4 [facility] ([place] Comment on above: Performed By: #### L IPID, ADIFF, ANEU, CMP, CBC, GFR #### [address] [address] Eosinophils/100 WBC (Bld) 5.7 % Normal 0.0-7.0 [facility] ([place]) Comment on above: Performed By: #### L IPID, ADIFF, ANEU, CMP, CBC, GFR #### [address] [address] Lymphocyte, Absolute 1.9 10 3/mcL Normal 0.8-3.9 [facility] ([place] Comment on above: Performed By: #### L IPID, ADIFF, ANEU, CMP, CBC, GFR #### [address] [address] Lymphocytes/100 WBC (Bld) 28.0 % Normal 10.0-50.0 [facility] ([place]) Comment on above: Performed By: #### L IPID, ADIFF, ANEU, CMP, CBC, GFR #### [address] [address] Monocyte, Absolute 0.5 10 3/mcL Normal 0.2-1.0 [facility] ([place]) Comment on above: Performed By: #### L IPID, ADIFF, ANEU, CMP, CBC, GFR #### [address] [address] Monocytes/100 WBC (Bld) 6.9 % Normal 1.7-13.0 A [facility] ([place]) Comment on above: Performed By: #### L IPID, ADIFF, ANEU, CMP, CBC, GFR #### [address] [address] Neutrophils/100 WBC (Bld) 58.9 % Normal 37.0-80.0 [facility] ([place]) Comment on above: Performed By: #### L IPID, ADIFF, ANEU, CMP, CBC, GFR #### [address] [address] .GFRon 07-01-2023 GFR 73 ml/min/1.73sqm Normal [facility] ([place]) Comment on above: Result Comment: GFR Population [...] IPID, ADIFF, ANEU, CMP, CBC, GFR #### [address] [address] GFR Non- 60 ml/min/1.73sqm Normal [facility] ([place]) Comment on above: Result Comment: GFR Population [...] IPID, ADIFF, ANEU, CMP, CBC, GFR #### [address] [address] .NEUABSon 07-01-2023 Neutrophil, Absolute 4.1 10 3/mcL Normal 2.9-6.2 [facility] [place] Comment on above: Performed By: #### L IPID, ADIFF, ANEU, CMP, CBC, GFR #### [address] [address] BMPon 07-01-2023 BUN/Creatinine Ratio 12 ratio Normal 7-27 [facility] ([place]) Comment on above: Performed By: #### L IPID, ADIFF, ANEU, CMP, CBC, GFR #### [address] [address] Calcium [Mass/Vol] 8.5 mg/dL Normal 8.4-10.2 [facility] ([place]) Comment on above: Performed By: #### L IPID, ADIFF, ANEU, CMP, CBC, GFR #### [address] [address] Chloride [Moles/Vol] 103 mmol/L Normal 98-107 [facility] ([place]) Comment on above: Performed By: #### L IPID, ADIFF, ANEU, CMP, CBC, GFR #### [address] [address] CO2 [Moles/Vol] 32 mmol/L High 23-31 [facility] ([place]) Comment on above: Performed By: #### L IPID, ADIFF, ANEU, CMP, CBC, GFR #### [address] [address] Creatinine [Mass/Vol] 0.90 mg/dL Normal 0.55-1.02 [facility] ([place]) Comment on above: Performed By: #### L IPID, ADIFF, ANEU, CMP, CBC, GFR #### [address] [address] Electrolyte Balance 5.0 mEq/L Normal 4.0-15.0 [facility] ([place]) Comment on above: Performed By: #### L IPID, ADIFF, ANEU, CMP, CBC, GFR #### [address] [address] Glucose [Mass/Vol] 138 mg/dL High 83-110 [facility] ([place]) Comment on above: Performed By: #### L IPID, ADIFF, ANEU, CMP, CBC, GFR #### [address] [address] Potassium [Moles/Vol] 4.0 mmol/L Normal 3.5-5.1 [facility] ([place]) Comment on above: Performed By: #### L IPID, ADIFF, ANEU, CMP, CBC, GFR #### [address] [address] Sodium [Moles/Vol] 140 mmol/L Normal 136-145 [facility] ([place]) Comment on above: Performed By: #### L IPID, ADIFF, ANEU, CMP, CBC, GFR #### [address] [address] Urea nitrogen [Mass/Vol] 11 mg/dL Normal 7-18 [facility] ([place]) Comment on above: Performed By: #### L IPID, ADIFF, ANEU, CMP, CBC, GFR #### [address] [address] CBCon 07-01-2023 Erythrocyte distribution width (RBC) [Ratio] 14.6 % High 11.5-14.5 [facility] ([place]) Comment on above: Performed By: #### L IPID, ADIFF, ANEU, CMP, CBC, GFR #### [address] [address] Hematocrit (Bld) [Volume fraction] 36.2 % Low 37.0-47.0 [facility] ([place]) Comment on above: Performed By: #### L IPID, ADIFF, ANEU, CMP, CBC, GFR #### [address] [address] Hgb 11.6 G/dL Low 12.0-16.0 [facility] ([place]) Comment on above: Performed By: #### L IPID, ADIFF, ANEU, CMP, CBC, GFR #### [address] [address] MCH (RBC) [Entitic mass] 28.1 pg Normal 27.0-31.2 [facility] ([place]) Comment on above: Performed By: #### L IPID, ADIFF, ANEU, CMP, CBC, GFR #### [place] [address] MCHC 32.0 G/dL Low 33.0-37.0 [facility] ([place]) Comment on above: Performed By: #### L IPID, ADIFF, ANEU, CMP, CBC, GFR #### [address] [address] MCV (RBC) [Entitic vol] 87.8 fL Normal 80.0-94.0 A [facility] ([place]) Comment on above: Performed By: #### L IPID, ADIFF, ANEU, CMP, CBC, GFR #### [address] [address] Platelet 170 10 3/mcL Normal 130-400 [facility] ([place]) Comment on above: Performed By: #### L IPID, ADIFF, ANEU, CMP, CBC, GFR #### [address] [address] Platelet mean volume (Bld) [Entitic vol] 6.4 fL Low 7.4-10.4 [facility] ([place]) Comment on above: Performed By: #### L IPID, ADIFF, ANEU, CMP, CBC, GFR #### [address] [address] RBC 4.12 10 6/mcL Low 4.20-5.40 [facility] ([place]) Comment on above: Performed By: #### L IPID, ADIFF, ANEU, CMP, CBC, GFR #### [address] [address] WBC 6.9 10 3/mcL Normal 4.6-10.8 [facility] ([place]) Comment on above: Performed By: #### L IPID, ADIFF, ANEU, CMP, CBC, GFR #### [address] [address] MGon 07-01-2023 Magnesium [Mass/Vol] 1.5 mg/dL Low 1.8-2.4 [facility] ([place]) Comment on above: Performed By: #### L IPID, ADIFF, ANEU, CMP, CBC, GFR #### [address] [address] .Auto Diffon 06-30-2023 Basophil, Absolute 0.0 10 3/mcL Normal 0.0-0.2 [facility] ([place]) Comment on above: Performed By: #### L IPID, ADIFF, ANEU, CMP, CBC, GFR #### [address] [address] Basophils/100 WBC (Bld) 0.4 % Normal 0.0-2.5 A [facility] ([place]) Comment on above: Performed By: #### L IPID, ADIFF, ANEU, CMP, CBC, GFR #### [address] [address] Eosinophil, Absolute 0.5 10 3/mcL High 0.0-0.4 [facility] [place] Comment on above: Performed By: #### L IPID, ADIFF, ANEU, CMP, CBC, GFR #### [address] [address] Eosinophils/100 WBC (Bld) 4.7 % Normal 0.0-7.0 [facility] ([place]) Comment on above: Performed By: #### L IPID, ADIFF, ANEU, CMP, CBC, GFR #### [address] [address] Lymphocyte, Absolute 1.7 10 3/mcL Normal 0.8-3.9 [facility] [place] Comment on above: Performed By: #### L IPID, ADIFF, ANEU, CMP, CBC, GFR #### [address] [address] Lymphocytes/100 WBC (Bld) 17.7 % Normal 10.0-50.0 [facility] ([place]) Comment on above: Performed By: #### L IPID, ADIFF, ANEU, CMP, CBC, GFR #### [address] [address] Monocyte, Absolute 0.5 10 3/mcL Normal 0.2-1.0 [facility] ([place]) Comment on above: Performed By: #### L IPID, ADIFF, ANEU, CMP, CBC, GFR #### [address] [address] Monocytes/100 WBC (Bld) 5.4 % Normal 1.7-13.0 [facility] ([place]) Comment on above: Performed By: #### L IPID, ADIFF, ANEU, CMP, CBC, GFR #### [address] [address] Neutrophils/100 WBC (Bld) 71.8 % Normal 37.0-80.0 [facility] ([place]) Comment on above: Performed By: #### L IPID, ADIFF, ANEU, CMP, CBC, GFR #### [address] [address] .GFRon 06-30-2023 GFR 75 ml/min/1.73sqm Normal [facility] ([place]) Comment on above: Result Comment: GFR Population [...] IPID, ADIFF, ANEU, CMP, CBC, GFR #### [address] [address] GFR Non- 62 ml/min/1.73sqm Normal [facility] ([place]) Comment on above: Result Comment: GFR Population [...] IPID, ADIFF, ANEU, CMP, CBC, GFR #### [address] [address] .MDWon 06-30-2023 Monocyte Distribution Width 17.82 Normal 0.00-20.00 [facility] ([place]) Comment on above: Result Comment: For ED adult patients suspected of sepsis, MDW<=20.0 does not rule out sepsis or risk of sepsis Performed By: #### L IPID, ADIFF, ANEU, CMP, CBC, GFR #### [address] [address] .NEUABSon 06-30-2023 Neutrophil, Absolute 7.1 10 3/mcL High 2.9-6.2 [facility] [place] Comment on above: Performed By: #### L IPID, ADIFF, ANEU, CMP, CBC, GFR #### [address] [address] BMPon 06-30-2023 BUN/Creatinine Ratio 10 ratio Normal 7-27 [facility] ([place]) Comment on above: Performed By: #### L IPID, ADIFF, ANEU, CMP, CBC, GFR #### [address] [address] Calcium [Mass/Vol] 9.0 mg/dL Normal 8.4-10.2 [facility] ([place]) Comment on above: Performed By: #### L IPID, ADIFF, ANEU, CMP, CBC, GFR #### [address] [address] Chloride [Moles/Vol] 100 mmol/L Normal 98-107 [facility] ([place]) Comment on above: Performed By: #### L IPID, ADIFF, ANEU, CMP, CBC, GFR #### [address] [address] CO2 [Moles/Vol] 33 mmol/L High 23-31 [facility] ([place]) Comment on above: Performed By: #### L IPID, ADIFF, ANEU, CMP, CBC, GFR #### [address] [address] Creatinine [Mass/Vol] 0.88 mg/dL Normal 0.55-1.02 [facility] ([place]) Comment on above: Performed By: #### L IPID, ADIFF, ANEU, CMP, CBC, GFR #### [address] [address] Electrolyte Balance 6.0 mEq/L Normal 4.0-15.0 [facility] ([place]) Comment on above: Performed By: #### L IPID, ADIFF, ANEU, CMP, CBC, GFR #### [address] [address] Glucose [Mass/Vol] 147 mg/dL High 83-110 [facility] ([place]) Comment on above: Performed By: #### L IPID, ADIFF, ANEU, CMP, CBC, GFR #### [address] [address] Potassium [Moles/Vol] 3.8 mmol/L Normal 3.5-5.1 [facility] ([place]) Comment on above: Performed By: #### L IPID, ADIFF, ANEU, CMP, CBC, GFR #### [address] [address] Sodium [Moles/Vol] 139 mmol/L Normal 136-145 [facility] ([place]) Comment on above: Performed By: #### L IPID, ADIFF, ANEU, CMP, CBC, GFR #### [address] [address] Urea nitrogen [Mass/Vol] 9 mg/dL Normal 7-18 [facility] ([place]) Comment on above: Performed By: #### L IPID, ADIFF, ANEU, CMP, CBC, GFR #### [address] [address] CBCon 06-30-2023 Erythrocyte distribution width (RBC) [Ratio] 14.6 % High 11.5-14.5 [facility] ([place]) Comment on above: Performed By: #### L IPID, ADIFF, ANEU, CMP, CBC, GFR #### [address] [address] Hematocrit (Bld) [Volume fraction] 42.0 % Normal 37.0-47.0 [facility] ([place]) Comment on above: Performed By: #### L IPID, ADIFF, ANEU, CMP, CBC, GFR #### [address] [address] Hgb 13.4 G/dL Normal 12.0-16.0 [facility] ([place]) Comment on above: Performed By: #### L IPID, ADIFF, ANEU, CMP, CBC, GFR #### [address] [address] MCH (RBC) [Entitic mass] 28.4 pg Normal 27.0-31.2 [facility] ([place]) Comment on above: Performed By: #### L IPID, ADIFF, ANEU, CMP, CBC, GFR #### [address] [address] MCHC 32.0 G/dL Low 33.0-37.0 [facility] ([place]) Comment on above: Performed By: #### L IPID, ADIFF, ANEU, CMP, CBC, GFR #### [address] [address] MCV (RBC) [Entitic vol] 88.5 fL Normal 80.0-94.0 A [facility] ([place]) Comment on above: Performed By: #### L IPID, ADIFF, ANEU, CMP, CBC, GFR #### [place] [id number] Platelet 188 10 3/mcL Normal 130-400 [facility] ([place]) Comment on above: Performed By: #### L IPID, ADIFF, ANEU, CMP, CBC, GFR #### [address] [address] Platelet mean volume (Bld) [Entitic vol] 6.2 fL Low 7.4-10.4 [facility] ([place]) Comment on above: Performed By: #### L IPID, ADIFF, ANEU, CMP, CBC, GFR #### [address] [address] RBC 4.74 10 6/mcL Normal 4.20-5.40 [facility] ([place]) Comment on above: Performed By: #### L IPID, ADIFF, ANEU, CMP, CBC, GFR #### [address] [address] WBC 9.9 10 3/mcL Normal 4.6-10.8 [facility] ([place]) Comment on above: Performed By: #### L IPID, ADIFF, ANEU, CMP, CBC, GFR #### [address] [address] LABORATORYOrdered By: SYSTEM SYSTEM on 06-30-2023 Monocyte distribution width Auto (Bld) [Entitic vol] 17.82 1 Invalid Interpretation Code 0.00 - 20.00 AO Workflow SS Comment on above: Result Comment: For ED adult patients suspected of sepsis, MDW<=20.0 does not rule out sepsis or risk of sepsis [facility] U Creatinine 90.7 mg/dL Normal 28.0-117.0 [facility] ([place]) Comment on above: Performed By: #### L IPID, ADIFF, ANEU, CMP, CBC, GFR #### [address] [address] U Microalb 1927 mcg/dL Normal [facility] ([place]) Comment on above: Performed By: #### L IPID, ADIFF, ANEU, CMP, CBC, GFR #### [address] [address] U Ratio Alb/Cre 21 mcg/mg Normal 0-30 [facility] ([place]) Comment on above: Performed By: #### L IPID, ADIFF, ANEU, CMP, CBC, GFR #### [address] [address] [facility] ANKLE AND FOOT 6 [...] Date: 06/30/2023 4:00:26 PM Ordering Provider: VICENTEALFONZO MARROQUINCARNEGIEALFONZO [facility] ([place] XR KNEE 1 OR 2 VIEWS LEFTon [...] 4:01:46 PM Ordering Provider: VICENTE MC [facility] ([place]) .Auto Diffon 02-05-2023 Basophil, Absolute 0.1 10 3/mcL Normal 0.0-0.2 [facility] Comment on above: Performed By: #### L IPID, ADIFF, ANEU, CMP, CBC, GFR #### [address] [address] Basophils/100 WBC (Bld) 0.7 % Normal 0.0-2.5 A [facility] ([place]) Comment on above: Performed By: #### L IPID, ADIFF, ANEU, CMP, CBC, GFR #### [address] [address] Eosinophil, Absolute 0.7 10 3/mcL High 0.0-0.4 [facility] [place] Comment on above: Performed By: #### L IPID, ADIFF, ANEU, CMP, CBC, GFR #### [address] [address] Eosinophils/100 WBC (Bld) 8.8 % High 0.0-7.0 [facility] ([place]) Comment on above: Performed By: #### L IPID, ADIFF, ANEU, CMP, CBC, GFR #### [address] [address] Lymphocyte, Absolute 2.8 10 3/mcL Normal 0.8-3.9 [facility] [place] Comment on above: Performed By: #### L IPID, ADIFF, ANEU, CMP, CBC, GFR #### [address] [address] Lymphocytes/100 WBC (Bld) 34.0 % Normal 10.0-50.0 [facility] ([place]) Comment on above: Performed By: #### L IPID, ADIFF, ANEU, CMP, CBC, GFR #### [address] [address] Monocyte, Absolute 0.6 10 3/mcL Normal 0.2-1.0 [facility] ([place]) Comment on above: Performed By: #### L IPID, ADIFF, ANEU, CMP, CBC, GFR #### [address] [address] Monocytes/100 WBC (Bld) 7.3 % Normal 1.7-13.0 [facility] ([place]) Comment on above: Performed By: #### L IPID, ADIFF, ANEU, CMP, CBC, GFR #### [address] [address] Neutrophils/100 WBC (Bld) 49.2 % Normal 37.0-80.0 [facility] ([place]) Comment on above: Performed By: #### L IPID, ADIFF, ANEU, CMP, CBC, GFR #### [address] [address] .GFRon 02-05-2023 GFR Non- 63 ml/min/1.73sqm Normal [facility] ([place]) Comment on above: Result Comment: GFR Population [...] IPID, ADIFF, ANEU, CMP, CBC, GFR #### [address] [address] GFR 76 ml/min/1.73sqm Normal [facility] ([place] Comment on above: Result Comment: GFR Population [...] IPID, ADIFF, ANEU, CMP, CBC, GFR #### [address] [address] .NEUABSon 02-05-2023 Neutrophil, Absolute 4.1 10 3/mcL Normal 2.9-6.2 [facility] [place] Comment on above: Performed By: #### L IPID, ADIFF, ANEU, CMP, CBC, GFR #### [address] [address] CBCon 02-05-2023 Erythrocyte distribution width (RBC) [Ratio] 14.1 % Normal 11.5-14.5 [facility] ([place]) Comment on above: Performed By: #### L IPID, ADIFF, ANEU, CMP, CBC, GFR #### [place] [address] Hematocrit (Bld) [Volume fraction] 45.2 % Normal 37.0-47.0 [facility] ([place]) Comment on above: Performed By: #### L IPID, ADIFF, ANEU, CMP, CBC, GFR #### [place] [address] Hgb 14.4 G/dL Normal 12.0-16.0 [facility] ([place]) Comment on above: Performed By: #### L IPID, ADIFF, ANEU, CMP, CBC, GFR #### [address] [address] MCH (RBC) [Entitic mass] 26.9 pg Low 27.0-31.2 [facility] ([place]) Comment on above: Performed By: #### L IPID, ADIFF, ANEU, CMP, CBC, GFR #### [place] [address] MCHC 31.8 G/dL Low 33.0-37.0 [facility] ([place]) Comment on above: Performed By: #### L IPID, ADIFF, ANEU, CMP, CBC, GFR #### [address] [address] MCV (RBC) [Entitic vol] 84.7 fL Normal 80.0-94.0 A [facility] ([place]) Comment on above: Performed By: #### L IPID, ADIFF, ANEU, CMP, CBC, GFR #### [address] [address] Platelet 237 10 3/mcL Normal 130-400 [facility] ([place]) Comment on above: Performed By: #### L IPID, ADIFF, ANEU, CMP, CBC, GFR #### [address] [address] Platelet mean volume (Bld) [Entitic vol] 6.5 fL Low 7.4-10.4 [facility] ([place]) Comment on above: Performed By: #### L IPID, ADIFF, ANEU, CMP, CBC, GFR #### [place] [address] RBC 5.34 10 6/mcL Normal 4.20-5.40 [facility] ([place]) Comment on above: Performed By: #### L IPID, ADIFF, ANEU, CMP, CBC, GFR #### [place] [address] WBC 8.3 10 3/mcL Normal 4.6-10.8 [facility] ([place]) Comment on above: Performed By: #### L IPID, ADIFF, ANEU, CMP, CBC, GFR #### [place] [address] CMPon 02-05-2023 Albumin Level 3.9 G/dL Normal 3.4-4.8 [facility] ([place]) Comment on above: Performed By: #### L IPID, ADIFF, ANEU, CMP, CBC, GFR #### [place] [address] Albumin/Globulin [Mass ratio] 1.3 {ratio} Normal 1.1-2.5 [facility] ([place]) Comment on above: Performed By: #### L IPID, ADIFF, ANEU, CMP, CBC, GFR #### [place] [address] ALP [Catalytic activity/Vol] 65 U/L Normal 40-135 [facility] ([place]) Comment on above: Performed By: #### L IPID, ADIFF, ANEU, CMP, CBC, GFR #### [place] [phone] ALT [Catalytic activity/Vol] 20 U/L Normal 14-59 [facility] ([place]) Comment on above: Performed By: #### L IPID, ADIFF, ANEU, CMP, CBC, GFR #### [address] [address] AST [Catalytic activity/Vol] 19 U/L Normal 10-40 [facility] ([place]) Comment on above: Performed By: #### L IPID, ADIFF, ANEU, CMP, CBC, GFR #### [address] [address] Bili Total 0.7 mg/dL Normal 0.2-1.0 [facility] ([place]) Comment on above: Result Comment: Use of this assay is not recommended for patients undergoing treatment with eltrombopag due to the potential for falsely elevated results. Performed By: #### L IPID, ADIFF, ANEU, CMP, CBC, GFR #### [address] [address] BUN/Creatinine Ratio 14 ratio Normal 7-27 [facility] ([place]) Comment on above: Performed By: #### L IPID, ADIFF, ANEU, CMP, CBC, GFR #### [address] [address] Calcium [Mass/Vol] 10.1 mg/dL Normal 8.4-10.2 [facility] ([place]) Comment on above: Performed By: #### L IPID, ADIFF, ANEU, CMP, CBC, GFR #### [address] [address] Chloride [Moles/Vol] 100 mmol/L Normal 98-107 [facility] ([place]) Comment on above: Performed By: #### L IPID, ADIFF, ANEU, CMP, CBC, GFR #### [address] [address] CO2 [Moles/Vol] 33 mmol/L High 23-31 [facility] ([place]) Comment on above: Performed By: #### L IPID, ADIFF, ANEU, CMP, CBC, GFR #### [address] [address] Creatinine [Mass/Vol] 0.87 mg/dL Normal 0.55-1.02 [facility] ([place]) Comment on above: Performed By: #### L IPID, ADIFF, ANEU, CMP, CBC, GFR #### [address] [address] Electrolyte Balance 8.0 mEq/L Normal 4.0-15.0 [facility] ([place]) Comment on above: Performed By: #### L IPID, ADIFF, ANEU, CMP, CBC, GFR #### [place] [address] Globulin 3.0 G/dL Normal [facility] ([place]) Comment on above: Performed By: #### L IPID, ADIFF, ANEU, CMP, CBC, GFR #### [place] [address] Glucose [Mass/Vol] 127 mg/dL High 83-110 [facility] ([place]) Comment on above: Performed By: #### L IPID, ADIFF, ANEU, CMP, CBC, GFR #### [address] [address] Potassium [Moles/Vol] 4.7 mmol/L Normal 3.5-5.1 [facility] ([place] Comment on above: Performed By: #### L IPID, ADIFF, ANEU, CMP, CBC, GFR #### [address] [address] Sodium [Moles/Vol] 141 mmol/L Normal 136-145 [facility] ([place]) Comment on above: Performed By: #### L IPID, ADIFF, ANEU, CMP, CBC, GFR #### [address] [address] Total Protein 6.9 G/dL Normal 6.4-8.2 [facility] ([place]) Comment on above: Performed By: #### L IPID, ADIFF, ANEU, CMP, CBC, GFR #### [place] [address] [place], [place] [address] Urea nitrogen [Mass/Vol] 12 mg/dL Normal 7-18 [facility] ([place] Comment on above: Performed By: #### L IPID, ADIFF, ANEU, CMP, CBC, GFR #### [facility] [address] [place], [place] [address] LABORATORYOrdered By: SYSTEM SYSTEM on 02-05-2023 Albumin [...] 147 mg/dL Normal 0-200 [facility] [place] Comment on above: Result Comment: Chol esterol Reference Interval: Less than 200 Desirable 200-239 Borderline high risk 240 and above High risk Performed By: #### L IPID, ADIFF, ANEU, CMP, CBC, GFR #### [place] [address] [place], [place] [address] Cholesterol in HDL [Mass/Vol] 59 mg/dL Normal 40-60 [facility] ([place]) Comment on above: Performed By: #### L IPID, ADIFF, ANEU, CMP, CBC, GFR #### [facility] [address] [place], [place] [address] Cholesterol in LDL [Mass/Vol] 54 mg/dL Normal 0-130 [facility] ([place]) Comment on above: Performed By: #### L IPID, ADIFF, ANEU, CMP, CBC, GFR #### [place] [address] [place], [place] [address] Triglyceride [Mass/Vol] 172 mg/dL High 0-150 A [facility] ([place]) Comment on above: Result Comment: Trig lyceride Reference Interval: Less than 150 Normal 150-199 Borderline high risk 200-499 High risk 500 or higher Very high risk Performed By: #### L IPID, ADIFF, ANEU, CMP, CBC, GFR #### [facility] [address] [place], [place] [address] LABORATORYOrdered By: Karli Benites on 01-29-2022 Albumin [...] Time Vital Sign Value Performing Clinician Facility 07-06-2025 15:25-0400 Body temperature 97.3 [degF] Balwinder Alves MD [facility] 07-06-2025 15:25-0400 Diastolic blood pressure 79 mm[Hg] Balwinder Alves MD [facility] 07-06-2025 15:25-0400 Heart rate 72 /min Balwinder Alves MD [facility] 07-06-2025 15:25-0400 Respiratory rate 16 /min Balwinder Alves MD [facility] 07-06-2025 15:25-0400 SaO2% (BldA) [Mass fraction] 93 % Balwinder Alves MD [facility] 07-06-2025 15:25-0400 Systolic blood pressure 165 mm[Hg] Balwinder Alves MD [facility] 07-06-2025 14:45-0400 Inhaled oxygen flow rate 2 L/min Balwinder Alves MD [facility] 07-06-2025 11:24-0400 Body height 175.26 cm Balwinder Alves MD [facility] 07-06-2025 11:24-0400 Body mass index (BMI) [Ratio] 41.3 kg/m2 Balwinder Alves MD [facility] 07-06-2025 11:24-0400 Body weight 127 kg Balwinder Alves MD [facility] 06-30-2025 10:21-0400 Body height 175.26 cm Balwinder Alves MD [facility] 06-30-2025 10:21-0400 Body mass index (BMI) [Ratio] 41 kg/m2 Balwinder Alves MD [facility] 06-30-2025 10:21-0400 Body temperature 97.9 [degF] Balwinder Alves MD [facility] 06-30-2025 10:21-0400 Body weight 126.09 kg Balwinder Alves MD [facility] 06-30-2025 10:21-0400 Diastolic blood pressure 78 mm[Hg] Balwinder Alves MD [facility] 06-30-2025 10:21-0400 Heart rate 78 /min Balwinder Alves MD [facility] 06-30-2025 10:21-0400 Systolic blood pressure 124 mm[Hg] Balwinder Alves MD [facility] 05-17-2025 10:04-0400 Body height 175.26 cm Balwinder Alves MD [facility] 05-17-2025 10:04-0400 Body mass index (BMI) [Ratio] 39.9 kg/m2 Balwinder Alves MD [facility] 05-17-2025 10:04-0400 Body weight 122.46 kg Balwinder Alves MD [facility] 05-17-2025 10:04-0400 Diastolic blood pressure 90 mm[Hg] Balwinder Alves MD [facility] 05-17-2025 10:04-0400 Heart rate 76 /min Balwinder Alves MD [place] [facility] 05-17-2025 10:04-0400 Systolic blood pressure 150 mm[Hg] Balwinder Alves MD [facility] 02-06-2024 20:00-0400 Body temperature 98 [degF] [facility] 02-06-2024 20:00-0400 Diastolic blood pressure 73 mm[Hg] [facility] 02-06-2024 20:00-0400 Heart rate 68 /min [facility] 02-06-2024 20:00-0400 Respiratory rate 18 /min [facility] 02-06-2024 20:00-0400 SaO2% (BldA) [Mass fraction] 97 % [facility] 02-06-2024 20:00-0400 Systolic blood pressure 173 mm[Hg] [facility] 02-06-2024 15:49-0400 Body height 175.26 cm [facility] 02-06-2024 15:49-0400 Body mass index (BMI) [Ratio] 38.9 kg/m2 [facility] 02-06-2024 15:49-0400 Body weight 119.74 kg [facility] 12-09-2023 10:13-0500 Body weight 120.2 kg Tete Trevino PA Work Phone: [facility] 12-09-2023 10:13-0500 Diastolic blood pressure 66 mm[Hg] Tete Trevino PA Work Phone: [facility] 12-09-2023 10:13-0500 Heart rate 69 /min Tete Trevino PA Work Phone: [facility] 12-09-2023 10:13-0500 Systolic blood pressure 190 mm[Hg] Tete Trevino PA Work Phone: [facility] 07-16-2023 10:53-0400 Body height 167.64 cm SPECIAL EVENTS DIRECTOR-C Laci Brewer SPECIAL EVENTS DIRECTOR Work Phone: [facility] 07-16-2023 10:53-0400 Body mass index (BMI) [Ratio] 45.8 kg/m2 SPECIAL EVENTS DIRECTOR-C Laci Brewer SPECIAL EVENTS DIRECTOR Work Phone: [facility] 07-16-2023 10:53-0400 Body weight 128.82 kg SPECIAL EVENTS DIRECTOR-C Laci Brewer SPECIAL EVENTS DIRECTOR Work Phone: [facility] 07-04-2023 19:10-0400 Body temperature 98.24 [degF] ROHAN MCDOWELL [employer] [facility] 07-04-2023 19:10-0400 Diastolic Blood Pressure Non-Invasive 46 1 ROHAN MCDOWELL [employer] [facility] 07-04-2023 19:10-0400 Heart rate 78 /min ROHAN MCDOWELL EN[employer]ELOPE [employer] [facility] 07-04-2023 19:10-0400 Reason For Taking VItal Signs ROHAN MCDOWELL ENVELOPE [employer] [facility] 07-04-2023 19:10-0400 Respiratory rate 18 /min ROHAN KAPPER EN[employer]ELOPE [employer] [facility] 07-04-2023 19:10-0400 Systolic Blood Pressure Non-Invasive 142 1 ROHAN KAPPER [employer] [facility] 07-04-2023 16:39-0400 Diastolic Blood Pressure Non-Invasive 60 1 ROHAN KAPPER [employer]OPE [employer] [facility] 07-04-2023 16:39-0400 Systolic Blood Pressure Non-Invasive 158 1 ROHAN KAPPER [employer]OPE [employer] [facility] 07-04-2023 16:22-0400 Body temperature 97.88 [degF] ROHAN KAPPER [employer]OPE [employer] [facility] 07-04-2023 16:22-0400 Diastolic Blood Pressure Non-Invasive 121 1 ROHAN KAPPER [employer] [facility] 07-04-2023 16:22-0400 Heart rate 72 /min ROHAN KAPPER ENVELOPE [employer] [facility] 07-04-2023 16:22-0400 Respiratory rate 20 /min ROHAN KAPPER ENVELOPE [employer] [facility] 07-04-2023 16:22-0400 Systolic Blood Pressure Non-Invasive 152 1 ROHAN KAPPER [employer] [facility] 07-04-2023 12:17-0400 Body temperature 97.88 [degF] ROHAN KAPPER EN[employer]ELOPE [employer] [facility] 07-04-2023 12:17-0400 Heart rate 72 /min ROHAN KAPPER ENVELOPE [employer] [facility] 07-04-2023 12:17-0400 Respiratory rate 20 /min ROHAN KAPPER ENVELOPE [employer] [facility] 07-04-2023 11:20-0400 Heart rate 74 /min ROHAN KAPPER [employer]EL[employer] [facility] 07-04-2023 07:54-0400 Heart rate 74 /min ROHAN KAPPER ENVELOPE [employer] [facility] 07-04-2023 04:11-0400 Heart rate 82 /min ROHAN KAPPER ENVELOPE [employer] [facility] 07-04-2023 04:11-0400 Reason For Taking VItal Signs ROHAN KAPPER ENVELOPE [employer] [facility] 07-03-2023 23:30-0400 Reason For Taking VItal Signs ROHAN KAPPER ENVELOPE [employer] [facility] 07-03-2023 03:07-0400 Heart rate 78 /min ROHAN KAPPER EN[employer]ELOPE [employer] [facility] 07-02-2023 22:59-0400 Heart rate 82 /min ROHAN KAPPER ENVELOPE [employer] [facility] 06-30-2023 18:36-0400 Body height 160 cm ROHAN KAPPER [employer] [facility] 06-30-2023 18:36-0400 Body weight 128 kg ROHAN KAPPER EN[employer] [facility] 06-30-2023 18:36-0400 Body weight 50 kg/m2 ROHAN KAPPER EN[employer]OPE [employer] [facility] 06-30-2023 15:17-0400 Blood Pressure Location ROHAN KAPPER [employer] [facility] 06-30-2023 15:170400 Blood Pressure Method ROHAN MCDOWELL [employer]EL[employer] [facility] Encounters Encounter Date Encounter Type Care Provider Facility Start: 07-10-2025 ambulatory Balwinder Alves Facility: [facility] Start: 07-06-2025 ambulatory Balwinder Alves Facility: [facility] Start: 07-06-2025 Non-patient / Non-visit Dr. Dorota taylor MD -[facility] Start: 07-06-2025 End: 07-06-2025 Admission to same day surgery center Dr. Dorota James MD [facility] Start: 07-06-2025 End: 07-06-2025 ambulatory Balwinder Alves MD [facility] Start: 07-03-2025 ambulatory Balwinder Alves OLS Facil ity:[facility] Start: 07-03-2025 Registered Referred Balwinder Alves MD [facility] Start: 06-30-2025 End: 06-30-[address] Dorota James MD -[facility] Work Phone: Start: 06-30-2025 End: 06-30-2025 ambulatory Balwinder Alves MD [facility] Start: 06-26-2025 ambulatory Balwinder Alves OLS Facil ity:[facility] Start: 06-26-2025 Registered Referred Balwinder Alves MD [facility] Start: 06-15-2025 ambulatory Balwinder Alves Facility: [facility] Start: 06-15-2025 Registered Referred Balwinder Alves MD [facility] Start: 06-01-2025 Registered Referred Balwinder Alves MD [facility] Start: 06-01-2025 End: 06-01-2025 ambulatory Balwinder Alves Facility:[facility] Start: 05-17-2025 End: 05-17-[address] Dorota James MD -[facility] Work Phone: Start: 05-17-2025 End: 05-17-2025 ambulatory Balwinder Alves MD -[facility] Start: 05-17-2025 End: 05-17-2025 ambulatory Dorota James Facility:[facility] Start: 04-04-2025 Non-patient / Non-visit Dr. Dorota taylor MD -[facility] Work Phone: Start: 03-31-2025 End: 03-31-2025 ambulatory Balwinder Alves MD -Cat Scan [facility] Start: 03-31-2025 End: 03-31-[address] Dorota James MD -Cat [facility] Work Phone: Start: 03-31-2025 End: 03-31-2025 ambulatory Balwinder Alves Facility:[facility] Start: 03-16-2025 ambulatory Balwinder MARSHALL Facil ity:[facility] Start: 03-16-2025 Registered Referred Balwinder Alves MD [facility] Start: 03-15-2025 ambulatory Balwinder MARSHALL Facil ity:[facility] Start: 03-15-2025 Registered Referred Balwinder Alves MD [facility] Start: 03-02-2025 ambulatory Balwinder MARSHALL Facil ity:[facility] Start: 03-02-2025 Registered Referred Balwinder Alves MD [facility] Start: 02-07-2025 End: 02-07-2025 ambulatory Balwinder Alves MD [facility] Work Phone: Start: 02-07-2025 End: 02-07-2025 Departed [facility] Start: 02-07-2025 End: 02-07-2025 ambulatory Balwinder MARSHALL Facility:[facility] Start: 01-23-2025 End: 01-23-2025 ambulatory Balwinder Alves MD [facility] Work Phone: Start: 01-23-2025 End: 01-23-2025 Departed [facility] Start: 01-23-2025 End: 01-23-2025 ambulatory Balwinder MARSHALL Facility:[facility] Start: 01-09-2025 End: 01-09-2025 ambulatory Balwinder Alves MD [facility] Work Phone: Start: 01-09-2025 End: 01-09-[address] Balwinder Alves MD [facility] Start: 01-09-2025 End: 01-09-2025 ambulatory Balwinder Alves Facility:[facility] Start: 01-02-2025 End: 01-02-2025 ambulatory Balwinder Alves MD [facility] Work Phone: Start: 01-02-2025 End: 01-02-2025 Departed Referred [facility]inder [facility] Start: 01-02-2025 Registered Referred Balwinder Alves MD [facility] Start: 01-02-2025 End: 01-02-2025 ambulatory Balwinder MARSHALL Facility:[facility] Start: 12-26-2024 End: 12-26-2024 ambulatory Balwinder Alves MD [facility] Work Phone: Start: 12-26-2024 End: 12-26-2024 Dep[facility]ed [facility] Start: 12-26-2024 Registered Referred Balwinder Fontanez [facility] Start: 12-26-2024 End: 12-26-2024 ambulatory Balwinder MARSHALL Facility:[facility] Start: 12-16-2024 End: 12-16-2024 ambulatory Balwinder Alves MD [facility] Work Phone: Start: 12-16-2024 End: 12-16-2024 Departed Referred Balwinder Alves MD -[facility] Start: 12-16-2024 Registered Referred Balwinder Alves MD - [facility] Start: 12-16-2024 End: 12-16-2024 ambulatory Balwinder MARSHALL Facility:[facility] Start: 12-14-2024 End: 12-14-2024 ambulatory Balwinder Alves MD [facility] Work Phone: Start: 12-14-2024 End: 12-14-2024 Departed Referred Balwinder [facility]Jayden [facility] Start: 12-14-2024 End: 12-14-2024 ambulatory Balwinder MARSHALL Facility:[facility] Start: 10-10-2024 ambulatory Balwinder MARSHALL Facil ity:[facility] Start: 10-10-2024 Registered Referred Balwinder Alves MD [facility] Start: 09-14-2024 End: 09-14-2024 Departed Referred Balwinder Alves MD [facility] Start: 09-14-2024 End: 09-14-2024 ambulatory Balwinder Alves OLS Facility:[facility] Start: 02-06-2024 End: 02-06-2024 Emergency department patient visit [facility] Work Phone: Start: 12-14-2023 End: 12-14-2023 ambulatory [facility] Work Phone: Start: 12-14-2023 End: 12-14-2023 Departed Referred [facility] Start: 12-09-2023 End: 12-09-[address] [facility] Start: 12-09-2023 End: 12-09-2023 Office outpatient visit 15 minutes Tete FITZGERALD Work Phone: [facility] Comment on above: Closed fracture of d istal end of left fibula, unspecified fracture morphology, initial encounter (Primary Dx) Start: 11-16-2023 Orders Only Tete FITZGERALD Work Phone: [facility] Comment on above: Closed fracture of d istal end of left fibula, unspecified fracture morphology, initial encounter (Primary Dx) Start: 10-14-2023 End: 10-14-[address] [facility] Start: 10-14-2023 End: 10-14-2023 Office outpatient visit 15 minutes Tete FITZGERALD Work Phone: [facility] Comment on above: Closed fracture of d istal end of left fibula, unspecified fracture morphology, initial encounter; Acute left ankle pain Start: 10-09-2023 Orders Only Tete FITZGERALD Work Phone: [facility] Comment on above: Closed fracture of l eft ankle, initial encounter (Primary Dx) Start: 09-23-2023 End: 09-23-2023 ambulatory SPECIAL EVENTS DIRECTOR-C Laci Brewer SPECIAL EVENTS DIRECTOR Work Phone: [facility] Work Phone: Start: 09-23-2023 End: 09-23-2023 Departed Referred SPECIAL EVENTS DIRECTOR-C Laci Brewer SPECIAL EVENTS DIRECTOR Work Phone: [facility] Start: 09-14-2023 End: 09-14-2023 ambulatory SPECIAL EVENTS DIRECTOR-C Laci Osman SPECIAL EVENTS DIRECTOR Work Phone: [facility] Work Phone: Start: 09-14-2023 End: 09-14-2023 Departed Referred SPECIAL EVENTS DIRECTOR-C Laci Brewer SPECIAL EVENTS DIRECTOR Work Phone: [facility] Start: 07-17-2023 Telephone encounter Zander Ureña MD Work Phone: [facility] Comment on above: Other (Appt ) Start: 07-16-2023 End: 07-16-2023 Patient encounter procedure SPECIAL EVENTS DIRECTOR-C Laci Brewer SPECIAL EVENTS DIRECTOR Work Phone: [facility] Work Phone: Start: 06-30-2023 End: 07-05-2023 ambulatory LACI KELLYTES [employer] Facility:B Start: 06-30-2023 End: 07-04-2023 ambulatory ROHAN MCDOWELL [employer] Facility:[facility] Start: 06-30-2023 End: 07-04-2023 Observation ROHAN MCDOWELL [employer]ELOPE [employer]ER [facility] Start: 02-05-2023 End: 02-06-2023 ambulatory LACI BALTES [employer] Facility:[facility] Start: 02-05-2023 End: 02-05-2023 Patient encounter procedure LACI BELTRANTES ENVELOPE [employer] [facility] Start: 01-29-2022 End: 01-29-2022 Patient encounter procedure LACI BALTES [employer]ELOPE [employer] [facility] Start: 07-17-2021 End: 07-17-2021 Patient encounter procedure LACI BREWER [employer]ELOPE [employer] [facility] Procedures Date Procedure Procedure Detail Performing Clinician Start: 07-06-2025 Extracorporeal shock wave lithotripsy Balwinder Alves MD Start: 06-01-2025 Vitamin D, 25-hydrox y measurement Balwinder Alves MD Comment on above: Vitamin D StatusDefi ciency: <20 ng/mL (50nmol/L)Insufficiency: 20-30 ng/mL (50-75 nmol/L)Sufficiency: 30-100 ng/mL (75-250 nmol/L)Toxicity: >100 ng/mL (>250 nmol/L) Start: 05-31-2025 Urnls dip stick/tabl et reagent auto microscopy Balwinder Alves MD Start: 05-31-2025 Urine culture Balwinder savage MD Start: 05-17-2025 Plain X-ray abdomen Javed Alves MD Start: 03-31-2025 CT of abdomen and pe lvis without contrast Balwinder Alves MD Start: 03-02-2025 Urine culture Balwidner savage MD Start: 03-02-2025 Urnls dip stick/tabl [...] MD Start: 12-09-2023 Follow-up visit Follow-up TETE ERIC NATO Start: 09-23-2023 Clostridium difficil e detection SPECIAL EVENTS DIRECTOR-C Laci Beltranwinnie SPECIAL EVENTS DIRECTOR Work Phone: Start: 07-16-2023 Radiography of ankle SPECIAL EVENTS DIRECTOR -C Laci Brewer SPECIAL EVENTS DIRECTOR Work Phone: Start: 04-04-2023 Extraction of cataract ROHAN MCDOWELL [employer] Comment on above: Left side Start: 02-09-2020 Ophthalmic examinati on and evaluation LACI BREWER [employer] Comment on above: No retinopathy; [facility] Start: 03-22-2007 Arthroplasty of knee RY AN BALTES [employer] Comment on above: BILATERAL Start: 03-05-2007 Arthroplasty of knee RY AN BALTES [employer] Start: 10-05-1968 section LACI GUERRA ENVELOPE [employer] Cataract (disorder) LACI ROWAN ENVELOPE [employer]LLER Comment on above: Right eye Cholecystectomy LACI BREWER ENVELOPE [employer]LL[employer] Hysterectomy LACI BREWER APR N-[employer] Miscellaneous (quali fier value) ROHAN MCDOWELL ENVELOPE [employer]LLER Comment on above: brain drains from br ain bleed 2013 Renal lithotripsy LACI Ramesh EN[employer]ELOPE [employer] Sling, device (physi shauna object) LACI BREWER ENVELOPE [employer]ER Comment on above: Bladder H/o cystocele Tonsillectomy LACI BAUGH RN-[employer] Comment on above: as a teenager Plan of Treatment Date Care Activity Detail Author Start: 06-24-2026 DTaP/Tdap/Td Vaccines (2 - Td or Tdap) DTaP/Tdap/Td Vaccines (2 - Td or Tdap) [facility] Start: 07-06-2025 Patient discharge [facility] Start: 07-06-2025 Peripherally inserted central catheter care [facility] Start: 07-03-2025 Registered Referred Registered [facility] Start: 05-17-2025 Electrocardiographic procedure [facility] Start: 01-23-2025 [facility] Start: 01-23-2025 Bacteria identified in Urine by Culture Urine Culture [facility] Start: 01-09-2025 Urine culture Urine Culture [facility] Start: 01-09-2025 [facility] Start: 01-02-2025 [facility] Start: 01-02-2025 Bacteria identified in Urine by Culture Urine Culture [facility] Start: 01-02-2025 Urine culture [facility] Start: 02-06-2024 [facility] Start: 11-25-2023 End: 11-16-2024 XR Ankle - left 3 Views XR ankle 3+ views left Imaging Routine Closed fracture of distal end of left fibula, unspecified fracture morphology, initial encounter Expected: 11/25/2023, Expires: 11/16/2024 [facility] Work Phone: Comment on above: Expected: 11/25/2023, Expires: Start: 11-25-2023 End: 11-25-2023 Patient encounter procedure 11/25/2023 10:30 AM EST Office Visit [facility] [address] [facility] [place] [address] [place] [address] Tete Trevino PA [address] [facility] [place] [address] [place] [address] [facility] Start: 10-14-2023 End: 10-09-2024 XR Ankle - left 3 Views XR ankle 3+ views left Imaging Routine Closed fracture of left ankle, initial encounter Expected: 10/14/2023, Expires: 10/09/2024 [facility] Work Phone: Comment on above: Expected: 10/14/2023, Expires: Start: 10-14-2023 End: 10-14-2023 Patient encounter procedure 10/14/2023 10:00 AM EST Office Visit [facility] [address] [facility] [place] [address] [place] [id number] Tete Trevino PA [address] [facility] [place] [address] [place], [place] [id number] [facility] Start: 10-05-2023 Medicare Advantage Annual Wellness Visit Medicare Advantage Annual Wellness Visit [facility] Start: 06-05-2023 COVID-19 Vaccine ( season) COVID-19 Vaccine ( season) [facility] Start: 06-05-2023 COVID-19 Vaccine ( season) COVID-19 Vaccine ( season) [facility] Start: 06-05-2023 Influenza vaccination Influenza Vaccine (#1) [facility] Start: 06-03-2021 Zoster Vaccines (3 of 3) Zoster Vaccines (3 of 3) [facility] Start: 2008 Pneumococcal Vaccine: 65+ Years (1 - PCV) Pneumococcal Vaccine: 65+ Years (1 - PCV) [facility] Start: 2003 RSV Immunization aged 60 or older (1 - 1-dose 60+ series) RSV Immunization aged 60 or older (1 - 1-dose 60+ series) [facility] Start: 1993 Zoster Vaccines (1 of 2) Zoster Vaccines (1 of 2) [facility] Start: 1962 DTaP/Tdap/Td Vaccines (1 - Tdap) DTaP/Tdap/Td Vaccines (1 - Tdap) [facility] Start: 1955 Depression Screening Depression Screening [facility] Start: 1943 COVID-19 Vaccine (#1) COVID-19 Vaccine (#1) [facility] Start: 1943 Medicare Advantage Annual Wellness Visit (AWV) Medicare Advantage Annual Wellness Visit (AWV) [facility] Start: 1943 Screening for osteoporosis Bone Density Scan [facility] Basic metabolic 2008 panel with ionized calcium - Serum or Plasma [facility] CBC W Auto Different ial panel - Blood [facility] Patient Education ED Abscess Inc ision And Drainage ED Wound Care After Packing ... [facility] Work Phone: Patient referral [facility] Work Phone: Urine culture [facility] XR Abdomen Single view [facility] [place] [place] Immunizations Immunization Date Immunization Notes Care Provider Fa [facility] 07-03-2022 influenza virus vacc ine, unspecified formulation LACI BREWER [employer] [facility] 01-14-2022 SARS-CoV-2 mRNA (ycvbxpurodr-enmn-oielrh e) vaccine LACI BREWER ENVELOPE [employer]LL[employer] [facility] 06-14-2021 influenza virus vacc ine, unspecified formulation LACI BREWER ENVELOPE [employer]RILLER [facility] 04-08-2021 zoster vaccine recombinant LACI BREWER ENVELOPE [employer] [facility] 01-01-2021 SARS-CoV-2 (COVID-19 ) mRNA BNT-162b2 vax LACI BREWER [employer]ELOPE [employer] [facility] 12-10-2020 SARS-CoV-2 (COVID-19 ) mRNA BNT-162b2 vax LACI BREWER ENVELOPE [employer] [facility] Comment on above: Result Comment: 2020: [id number] 05-06-2020 influenza virus vacc ine, unspecified formulation LACI BREWER ENVEL[employer] [facility] 05-06-2020 pneumococcal conjuga te vaccine, 13 valent LACI BREWER ENVELOPE [employer] [facility] 07-06-2019 influenza virus vacc ine, unspecified formulation LACI BREWER ENVELOPE [employer] [facility] 09-03-2018 influenza virus vacc ine, unspecified formulation LACI BREWER ENVELOPE FOLDER-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 DRILLER [facility] 08-05-2018 influenza virus vacc ine, unspecified formulation LACI BREWER ENVELOPE [employer]OLDER[employer]QUARRY PLUG AND FEATHER DRILLER [facility] 07-04-2018 influenza virus vacc ine, unspecified formulation LACI BREWER ENVELOPE FOLDER-QUARRY PLUG AND FEATHER DRILLER [facility] 06-04-2018 influenza virus vacc ine, unspecified formulation LACI BREWER ENVELOPE FOLDER-QUARRY PLUG AND FEATHER DRILLER [facility] 06-23-2017 influenza virus vacc ine, unspecified formulation LACI BREWER ENVELOPE FOLDER-QUARRY PLUG AND FEATHER DRILLER [facility] 06-10-2017 influenza virus vacc ine, unspecified formulation LACI OSMAN ENVELOPE FOLDER-QUARRY PLUG AND FEATHER DRILLER [facility] 06-24-2016 influenza virus vacc ine, unspecified formulation LACI BREWER ENVELOPE [employer]DER[employer]QUARRY PLUG AND FEATHER DRILLER [facility] 06-24-2016 tetanus toxoid, redu chivo diphtheria toxoid, and acellular pertussis vaccine, adsorbed LACI OSMAN [employer]VEL[employer]QUARRY [employer]UG [employer] FEATHER DRILLER [facility] 07-17-2015 pneumococcal conjuga te vaccine, 13 valent LACI BREWER ENVEL[employer]DER[employer]QUARRY [employer]UG [employer] FEATHER DRILLER [facility] 06-19-2015 influenza virus vacc ine, unspecified formulation LACI OSMAN ENVELOPE FOLDER[employer]QUARRY PLUG AND FEATHER DRILLER [facility] 09-06-2014 influenza virus vacc ine, unspecified formulation LACI BREWER ENVELOPE [employer]QUARRY PLUG AND FEATHER DRILLER [facility] 06-08-2013 pneumococcal polysaccharide vaccine, 23 valent LACI BREWER ENVELOPE FOLDER[employer]QUARRY PLUG AND FEATHER DRILLER [facility] 09-01-2012 influenza virus vacc ine, unspecified formulation LACI BREWER ENVELOPE [employer]QUARRY PLUG [employer] FEATHER DRILLER [facility] 05-28-2012 zoster vaccine, live LACI KOREY KUNAL ENVELOPE F[employer]QUARRY [employer]UG [employer] FEATHER DRILLER [facility] Payers Date Payer Category Payer Medicaid [id number] 2024 Self-pay [id number] 2023 Medicare [employer] [id number] 2023-Present [phone] [address] [place] [address] Medicare HMO [id number] 2023 Medicare [id number] 2023 Unknown [id number] 1945 Unknown [id number] [id number]7 1945 Unknown [id number] 2.16.840.1.141645.3.579.2.627 1945 Unknown [id number] 2.16.840.1.313995.3.579.2.627 Medicare [id number] Unknown [id number] 2.16.840.1.550664.3.579.2.462 Unknown [id number] 2.16.840.1.816490.3.579.2.462 Unknown [id number] 2.16.840.1.871818.3.579.2.462 Unknown [id number] 2.16.840.1.215090.3.579.2.462 Unknown [id number] 2.16.840.1.478888.3.579.2.462 Unknown [id number] 2.16.840.1.828557.3.579.2.462 Unknown [id number] 2.16.840.1.362704.3.579.2.462 Unknown [id number] 2.16.840.1.779762.3.579.2.462 Unknown [id number] 2.16.840.1.683253.3.579.2.462 Unknown [id number] 2.16.840.1.053707.3.579.2.462 Unknown [id number] 2.16.840.1.322995.3.579.2.462 Unknown [id number] 2.16.840.1.148219.3.579.2.462 Unknown [id number] 2.16.840.1.763388.3.579.2.462 Unknown [id number] 2.16.840.1.087411.3.579.2.462 Unknown [id number] 2.16.840.1.253595.3.579.2.462 Unknown [id number] 2.16.840.1.145844.3.579.2.462 Unknown [id number] 2.16.840.1.822949.3.579.2.462 Unknown [id number] 2.16.840.1.285494.3.579.2.462 Unknown [id number] 2.16.840.1.310335.3.579.2.462 Unknown [id number] 2.16.840.1.363777.3.579.2.462 Unknown [id number] 2.16.840.1.323106.3.579.2.462 Unknown [id number] 2.16.840.1.079424.3.579.2.462 Unknown [id number] 2.16.840.1.426680.3.579.2.462 Social History Date Type Detail Facility Start: 04-06-2019 End: 06-28-2025 Ex-smoker (finding) [facility] Comment on above: Quit in 2014, not ar ound cigarette smoke Start: 1945 Sex Assigned At Female A [facility] Start: 07-16-2023 End: 02-06-2024 Tobacco smoking status SCIS Tobacco smoking consumption unknown [facility] Start: 1945 Sex Assigned At Not on file [facility] Start: 10-14-2023 End: 12-09-2023 Gender identity Not on file [facility] Start: 10-14-2023 Tobacco smoking stat us NHIS Never smoked tobacco [facility] Start: 10-14-2023 Tobacco use and exposure Smokeless tobacco non-user [facility] Start: 10-14-2023 End: 12-09-2023 History of Social function [facility] Start: 01-04-2025 End: 01-24-2025 Sex Female (finding) [facility] Medical Equipment Procedure Code Equipment Code Equipment Origin al Text Equipment Identifier Dates BD UF SHORT PEN NEEDLE [id number] Start: 08-29-[address] Strips Start: 10-16-2020 Lancets Start: 04-23-2021 BD UF SHORT PEN NEEDLE [id number], 0 Refill(s), 141.8 Start: 08-29-2020 See Instructions [...] E11.9, # 2 EA, 3 Refill(s), [id number], 167.6, cm, 11/20/22 11:29:00 EST, Height, 134, kg, 11/20/22 11:29:00 EST, Dosing Weight Start: 11-20-2022 See Instructions , EA=BOX of 100 2x daily testing once touch untra blue dx: diabetes, # 6 EA, 3 Refill(s), [id number], Diabetes, 167.6, cm, 05/20/22 12:08:00 EDT, [...] 11/20/22 11:29:00 EST, Dosing Weight Start: 11-20-2022 Goals Date Patient Goal Desired Activity /State Functional Status Date Assessment Result Facility 07-04-2023 Functional Status Room check performed [facility] 07-04-2023 Functional Status right knee high applied /on [facility] 07-04-2023 Functional Status [facility] 07-04-2023 Functional Status [facility] 07-04-2023 Functional Status Demonstrates C orrect Call Light Use Yes [facility] 07-04-2023 Functional Status Done [facility] 07-04-2023 Functional Status [facility] 07-03-2023 Functional Status Positioning Repositions self [facility] 07-03-2023 Functional Status [facility] 07-03-2023 Functional Status [facility] 07-03-2023 Functional Status [facility] 07-03-2023 Functional Status [facility] 07-03-2023 Functional Status [facility] 07-02-2023 Functional Status [facility] 07-02-2023 Functional Status Max A [facility] 07-01-2023 Functional Status [facility] 07-01-2023 Functional Status Single level home [facility] 07-01-2023 Functional Status [facility] 06-30-2023 Functional Status Sensory Deficits None [facility] 06-30-2023 Functional Status Activity Rosa tance Independent [facility] Mental Status Date Assessment Result Facility 07-06-2025 Cognitive function Voice/Name [facility] [place] [place] Work Phone: 07-04-2023 Mental Status Orientation Orie nted x 4, Follows simple commands [facility] 07-03-[address] [facility] 07-03-[address] [facility] 07-03-2023 Mental Status Orientation Asse ssment Oriented x 4 [facility] 07-02-2023 Mental Status [facility] 07-01-20[address] Mental [address] [facility] Clinical Notes 06-30-2023 to 07-06-2025 Note Date & Type Note Facility 07-06-2025 Consult note [facility] 07-06-2025 Consult note Note Date/Time July 06, 2025 12:50pm [facility] Medical Records Department [address] [place] [id number] Pre-Anesthesia Evaluation 07/06/25 1243 MR#: [id number] Acct: [id number] Name: GUMARO HUFF Rep #:[id number] : 1945 80 From: Shailesh Russell MD PCP: Dr. Balwinder Alves MD Status:REG [facility] [place] [facility] Y Race: C Location: [place] [address] ASA Classification* ASA Classification ASA Classification: 3 Assessment & Plan Anesthesia* Anesthesia Assessment Anesthesia Assessment: Discussed sedation and/or anesthesia options, risks, benefits, and alternatives with patient/parents/legal guardian/POA. Questions invited. The patient/parents/legal guardian/POA seems to understand and agrees to proceedwith anesthesia plan. Reviewed the physical assessment, medical history, allergy history and patient home medications list prior to surgery/procedure/anesthetic and documented any changes. Performed airway and anesthesia risk assessments. Anesthesia Type Anesthesia Type: General History Source History Obtained from:: Patient and Chart Anesthesia Focused Assessment* Temperature: 98.1 F Pulse Rate: 76 Blood Pressure: 158/76 Respiratory Rate: 18 Pulse Ox: 97 Oxygen Delivery Method: Room Air Airway Assessment Mouth opens: >3 cm Mallampati Score: IV Teeth Condition: Dentures (Patient has full upper dentures. They are out.) and Partial (Patient has lower partial dentures which are out. Rest of the teeth are tight.) Neck Range of motion (ROM): Limited ROM (Somewhat Decreased) Labs Anesthesia Preop lab: CBC WBC, (4.4-11.0) 7.2 K/mm3 07/03/25, 07:00 RBC, (4.2-5.4) 3.80 M/mm3 L 07/03/25, 07:00 Hgb, (12.0-15.0) 11.2 g/dL L 07/03/25, 07:00 Hct, (37-47) 35.9 % L 07/03/25, 07:00 Plt Count, (150-450) 165 K/mm3 07/03/25, 07:00 CHEMISTRY Potassium, (3.3-5.1) 4.6 mmol/L 07/03/25, 07:00 Sodium, (133-145) 139 mmol/L 07/03/25, 07:00 BUN, (4-19) 9 mg/dL 07/03/25, 07:00 Creatinine, (0.70-1.20) 0.70 mg/dL 07/03/25, 07:00 Glucose, (70-99) 169 mg/dL H 07/03/25, 07:00 POC Glucose, (74-106) 133 mg/dL H Today, 11:33 COAG Pre-Assessment Diagnosis/Proposed Procedure Planned Operative Procedure(s): RIGHT ESWL CYSTO RIGHT STENT Anesthesia History Anesthesia History - design architect: Anesthesia History - design architect Hx Hospitalization No 06/28/25 08:30 Any Problems With Anesthesia No 06/28/25 08:30 Cholinesterase deficiency No 06/28/25 08:30 You/Your Family Experience No 06/28/25 08:30 fever (hyperthermia) with Relationship Recent Exposure to Contagious No 07/06/25 11:24 Disease Does patient have nerve No 06/28/25 08:30 stimulator Patient instructed to have device shut off --Does patient have Pacemaker No 07/06/25 11:24 or ICD? When Was Last Pacemaker Check QUESTION #4 FULL TEXT: You/Your Family Experience fever (hyperthermia) with Anesthesia Last Oral Intake Last Oral intake: Last Oral Intake NPO since 07:00 07/06/25 11:24 Meds taken in AM with sips of Yes 07/06/25 11:24 water? Meds patient instructed to Tylenol, colestipol, 07/06/25 11:24 take am of surgery gabapentin, losartan Any additional information?: Yes Meds taken in AM with sips of water?: Yes PONV PONV - design architect: PONV - design architect Female Yes 06/28/25 08:30 HX of Motion Sickness No 06/28/25 08:30 HX of N/V After Surgery No 06/28/25 08:30 Non-Smoker Yes 06/28/25 08:30 Duration of Surgery greater Yes 06/28/25 08:30 than 60 minutes Number of Risk Factors 3 06/28/25 08:30 PONV Score Moderate Risk 06/28/25 08:30 Height & Weight Height & Weight: Anesthesia: Height & Weight Height 5 ft 9 in 07/06/25 11:24 Weight: 127 kg 07/06/25 11:24 Body Mass Index (BMI) 41.3 07/06/25 11:24 Respiratory Assessment Respiratory Assessment - design architect: Respiratory Tract Infection Hx - design architect Hx Respiratory Tract Infection No 06/28/25 08:30 STOP Sleep Apnea STOP Sleep Apnea - design architect: STOP Sleep Apnea - design architect Hx Hypertension Yes 06/28/25 08:30 Hx Sleep Apnea No 06/28/25 08:30 CPAP BIPAP Do you snore loudly (louder No 06/28/25 08:30 than talking or can be heard Do you often feel tired/ No 06/28/25 08:30 fatigued/ sleepy during daytime? Has anyone observed you stop No 06/28/25 08:30 breathing during sleep? STOP Results Negative 06/28/25 08:30 QUESTION #5 FULL TEXT : Do you snore loudly (louder than talking or can be heard through closed doors)? 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 Specify any problems Hx of Preganancy in last 3 No 06/28/25 08:30 Months Nurse Filling Out Transfusion EHCHINO 06/28/25 08:30 & Questions: Date: 06/28/25 06/28/25 08:30 Time: 08:30 06/28/25 08:30 Patient unable to answer at this time (ie. confused, unrespo /Reproduction History /Reproductive History - design architect: /Reproductive Hx- design architect Hx Now No 06/28/25 08:30 Gestational Age (in weeks): EDC: Hx Hx Para Hx Section SAB No 06/28/25 08:30 Active Medications Active Medications: Current Medications Generic Name Dose Route Start Last Admin Trade Name Freq PRN Reason Stop Dose Admin Lactated Ringer's 1,000 mls @ 15 mls/hr 07/06/25 11:00 07/06/25 11:46 IV 15 mls/hr .Q48H ELENA Administration Sodium Chloride 10 - 40 ml 07/06/25 11:36 0.9% Saline Lock 10 Ml Syringe IV UD PRN Open End PICC Flush Sodium Chloride 10 - 40 ml 07/06/25 11:36 0.9 % Nacl (Sterile) Posiflush 10 Ml IV UD PRN Port access or dressing change PFSH Medical History H/O echocardiogram History of ESBL E. coli infection Lives in senior living Wears glasses Wears dentures Diabetes Uses wheelchair Walker as ambulation aid Arthritis Bladder disease History of IBS Former smoker Hypertension Flank pain Kidney stones ESBL (extended spectrum beta-lactamase) producing bacteria infection Hx pulmonary embolism Home Medications ?Medication ?Instructions ?Recorded ?Last Taken ?Type duloxetine 60 mg capsule,delayed 60 mg PO QHS 11/01/20 07/05/25 History release losartan 100 mg tablet 100 mg PO DAILY 11/01/2011/29 History metformin 1,000 mg tablet 1,000 mg PO BID 11/01/2010/29 History trazodone 50 mg tablet 25 mg PO QHS 11/01/20 History simvastatin 5 mg tablet 5 mg PO QHS 07/16/23 5 History acetaminophen 500 mg tablet 1,000 mg PO TID 05/17/25 1 History (Tylenol Extra Strength) ascorbic acid (vitamin C) 500 mg 500 mg PO DAILY 05/1707/05/25 History capsule boric acid 600 mg vaginal 600 mg vaginal TUFR 05/17/25 07/05/25 History suppository (Azo Boric Acid) cholecalciferol (vitamin D3) 50 50 mcg PO QDAY 5 07/05/25 History mcg (2,000 unit) tablet colestipol 1 gram tablet 2 g PO BID 05/17/25 07/06/25 History d-mannose 500 mg capsule 1,000 mg PO BID 05/17/2510/29 History diclofenac sodium 1 % topical gel 2 g topical BID 05/05 12/27 Unknown History gabapentin 400 mg capsule 400 mg PO TID 05/17/2507/06 History loperamide 2 mg capsule (Imodium 2 mg PO Q6H PRN diarr hea 05/17/25 Unknown History A-D) methenamine hippurate 1 gram tablet 1 g PO BID 5 07/05/25 History oxybutynin chloride 5 mg tablet 5 mg PO QHS 05/17/25 1 History oxycodone 5 mg tablet 5 mg PO Q6H PRN pain 5 07/05/25 History dulaglutide 3 mg/0.5 mL 3 mg subcut TU 05/29/2506/06 History subcutaneous pen injector (Trulicity) phenazopyridine 200 mg tablet 200 mg PO TID PRN pain # 30 tabs 07/06/25 Unknown Rx tramadol 50 mg tablet 50 mg PO Q8H PRN pain 3 days #10 07/06/25 Unknown Rx tabs Allergy/AdvReac Type Severity Reaction Status Date / Time adhesive tape Allergy Mild blister Verified 07/06/25 11:21 amoxicillin (From Augmentin) Allergy Mild Rash Verified 07/06/25 11:21 ciprofloxacin (From Cipro) Allergy Mild Rash Verified 07/06/25 11:21 clavulanic acid (From Allergy Mild Rash Verified 07/06/25 11:21 Augmentin) latex Allergy Mild Other Verified 07/06/25 11:21 aspirin (ASA) Allergy Unknown PT UNSURE Verified 07/06/25 11:21 OF REACTION cephalexin (From Keflex) Allergy Unknown PT UNSURE Verified 07/06/25 11:21 OF REACTION dapagliflozin (From Farxiga) Allergy Unknown PT UNSURE Verified 07/06/25 11:21 OF REACTION diphenhydramine (From Allergy Unknown PT UNSURE Verified 07/06/25 11:21 Percogesic) OF REACTION ibuprofen Allergy Unknown PT UNSURE Verified 07/06/25 11:21 OF REACTION phenyltoloxamine (From Allergy Unknown PT UNSURE Verified 07/06/25 11:21 Percogesic) OF REACTION vancomycin AdvReac Mild red man Verified 07/06/25 11:21 syndrome sulfamethoxazole (From AdvReac Shortness Verified 07/06/25 11:21 Bactrim) of breath trimethoprim (From Bactrim) AdvReac Shortness Verified 07/06/25 11:21 of breath Surgical History Hx of brain surgery Hx of hysterectomy Hx of total knee arthroplasty Hx of total knee arthroplasty Social History Smoking Status: Former smoker Review of Systems (Anesthesia) ROS Narrative System reviewed and no additional complaints, except as documented. 07/06/25 1250 <Electronically signed by Shailesh grissom MD> Date _ Shailesh Russell MD Cosigner Signature: Date CC: ~ Signed [facility] Work Phone: 1(979) 958-346510-02-2025 Discharge summary Author Dorota James [facility] Note Date/Time July 06, 2025 12 :24pm [facility] Medical Records Department [address] [place] [address] Instructions for Home/Discharge Instructions 07/06/25 1217 MR#: [id number] Acct: [id number] Name: GUMARO HUFF Rep #:[id number] : 1945 80 From: Dorota Torres PCP: Dr. Balwinder Alves MD Status:REG [facility] [place] Discharge Instructions Diet Discharge Diet: No restrictions Activity Discharge Activity: Return to Normal Activity Dressing / Incision Call your doctor if your incision/area has: Sudden Increased Bleeding Call your doctor if you observe: Fever of 101 or Higher, Inability to urinate and Inability to have a bowel movement Follow Up Care Please Follow Up With: Dorota James MD Test Results: Test results from this visit will be discussed in further detail at your follow- up appointment, if applicable. Discharge Plan Admission Attending Provider: Dorota James Primary Care Provider: Balwinder Alves Instructions Print Language: Sammarinese Discharge Orders/Prescriptions Prescriptions: New phenazopyridine 200 mg tablet 200 mg PO TID PRN (Reason: pain) Qty: 30 3RF tramadol 50 mg tablet 50 mg PO Q8H PRN (Reason: pain) 3 Days Qty: 10 0RF Continued simvastatin 5 mg tablet 5 mg PO QHS acetaminophen [Tylenol Extra Strength] 500 mg tablet 1,000 mg PO TID ascorbic acid (vitamin C) 500 mg capsule 500 mg PO DAILY Azo Boric Acid 600 mg suppository 600 mg vaginal TUFR colestipol 1 gram tablet 2 g PO BID d-mannose 500 mg capsule 1,000 mg PO BID diclofenac sodium 1 % gel 2 g topical BID gabapentin 400 mg capsule 400 mg PO TID loperamide [Imodium A-D] 2 mg capsule 2 mg PO Q6H PRN (Reason: diarrhea) methenamine hippurate 1 gram tablet 1 g PO BID oxybutynin chloride 5 mg tablet 5 mg PO QHS oxycodone 5 mg tablet 5 mg PO Q6H PRN (Reason: pain) cholecalciferol (vitamin D3) 50 mcg (2,000 unit) tablet 50 mcg PO QDAY trazodone 50 MG tablet 25 mg PO QHS metformin 1,000 MG tablet 1,000 mg PO BID losartan 100 MG tablet 100 mg PO DAILY duloxetine 60 MG capsule,delayed release(DR/EC) 60 mg PO QHS Trulicity 3 mg/0.5 mL pen injector 3 mg subcut TU Referrals / Follow Up: Balwinder Alves MD [Primary Care Provider, Family Practice] Disposition Disposition (needs filled in before D/C Order can be placed): Home, Self Care 07/06/25 1224<Electronically signed by Dorota James MD>Dorota James MD CC: Dr. Balwinder Alves MD ~ Signed [facility] Work Phone: 1(985) 927-429510-02-2025 Consult note [facility] Medical Records Department [address] [place] [address] Anesthesia Postop Eval I 07/06/25 1419 MR#: [id number] Acct: [id number] Name: GUMARO HUFF Rep #:[id number] : 1945 80 From: Gerry Brown PCP: Dr. Balwinder Alves MD Status:REG [facility] Y Race: C Location: [place] [address] Anesthesia: Postop Eval I Current Vital Signs Temperature: 97.3 F Pulse Rate: 74 Blood Pressure: 167/83 Respiratory Rate: 16 Pulse Ox: 94 Oxygen Delivery Method: Room Air Assessment Airway patent: Yes Spontaneous unlabored respirations: Yes Mental status: Awake nausea: No Vomiting: No Anesthesia Complication: No Fluid Hydration Crystalloid volume administer (ml): 600 Total IV fluid infused: 600 Progress Note Anesthesia document: Postop Eval 1 completed: Yes 07/06/25 1420 > Date _ Gerry Lee Signature: Date CC: ~ Signed [facility]10-02-2025 History and physical note Author Dorota James [facility] Note Date/Time July 06, 2025 12 :17pm [facility] Medical Records Department [address] [place] [address] History & Physical Exam 07/06/25 1211 MR#: [id number] Acct: [id number] Name: GUMARO HUFF Rep #:[id number] : 1945 80 From: Dorota Torres PCP: Dr. Balwinder Alves MD Status:[facility] Location: [place] [address]1 History and Physical Date of Admission: 07/06/25 Date of Service: 06/30/25 MR#: [id number] Acct: [id number] Name: GUMARO HUFF Rep #: [id number] : 1945 Provider: Dr. Dorota James MD Age/Sex: 80/F Location: [facility] [place] Status: Signed Intake Vital Signs 05/17/2510:04 06/30/2510:21 Height 5 ft 9 in 5 ft 9 in Weight: 278 lb BMI 41.0 BP 124/78 H Pulse 78 Temp 97.9 F Intake Visit Reasons: Pre-op Urine C&S/sign consent Chief Complaint: pre-op Accompanied by: Caregiver Is patient in pain?: No Allergies adhesive tape Allergy (Mild, Verified 07/06/25 11:21) blister amoxicillin (From Augmentin) Allergy (Mild, Verified 07/06/25 11:21) Rash ciprofloxacin (From Cipro) Allergy (Mild, Verified 07/06/25 11:21) Rash clavulanic acid (From Augmentin) Allergy (Mild, Verified 07/06/25 11:21) Rash latex Allergy (Mild, Verified 07/06/25 11:21) Other aspirin (ASA) Allergy (Unknown, Verified 07/06/25 11:21) PT UNSURE OF REACTION cephalexin (From Keflex) Allergy (Unknown, Verified 07/06/25 11:21) PT UNSURE OF REACTION dapagliflozin (From Farxiga) Allergy (Unknown, Verified 07/06/25 11:21) PT UNSURE OF REACTION diphenhydramine (From Percogesic) Allergy (Unknown, Verified 07/06/25 11:21) PT UNSURE OF REACTION ibuprofen Allergy (Unknown, Verified 07/06/25 11:21) PT UNSURE OF REACTION phenyltoloxamine (From Percogesic) Allergy (Unknown, Verified 07/06/25 11:21) PT UNSURE OF REACTION vancomycin Adverse Reaction (Mild, Verified 07/06/25 11:21) red man syndrome sulfamethoxazole (From Bactrim) Adverse Reaction (Verified 07/06/25 11:21) Shortness of breath trimethoprim (From Bactrim) Adverse Reaction (Verified 07/06/25 11:21) Shortness of breath Medications ?Medication ?Instructions ?Recorded ?Confirmed ?Type duloxetine 60 mg capsule,delayed 60 mg PO QHS 11/01/20 07/06/25 History release losartan 100 mg tablet 100 mg PO DAILY 11/01/20 07/06/25 Histor y metformin 1,000 mg tablet 1,000 mg PO BID 11/01/20 07/06/25 Histor y trazodone 50 mg tablet 25 mg PO QHS 11/01/20 07/06/25 History simvastatin 5 mg tablet 5 mg PO QHS 07/16/23 07/06/25 History acetaminophen 500 mg tablet 1,000 mg PO TID 05/17/25 07/06/25 Histor y (Tylenol Extra Strength) ascorbic acid (vitamin C) 500 mg 500 mg PO DAILY 05/17/25 07/06/25 Histor y capsule boric acid 600 mg vaginal 600 mg vaginal TUFR 05/17/25 07/06/25 Hi story suppository (Azo Boric Acid) cholecalciferol (vitamin D3) 50 50 mcg PO QDAY 05/17/25 07/06/25 History mcg (2,000 unit) tablet colestipol 1 gram tablet 2 g PO BID 05/17/25 07/06/25 History d-mannose 500 mg capsule 1,000 mg PO BID 05/17/25 07/06/25 Histor y diclofenac sodium 1 % topical gel 2 g topical BID 05/17/25 06/30/25 Histor y gabapentin 400 mg capsule 400 mg PO TID 05/17/25 07/06/25 History loperamide 2 mg capsule (Imodium 2 mg PO Q6H PRN diarrhea 05/17/25 History A-D) methenamine hippurate 1 gram tablet 1 g PO BID 05/17/25 07/06/25 History oxybutynin chloride 5 mg tablet 5 mg PO QHS 05/17/25 07/06/25 History oxycodone 5 mg tablet 5 mg PO Q6H PRN pain 05/17/25 07/06/25 H istory dulaglutide 3 mg/0.5 mL 3 mg subcut TU 05/29/25 07/06/25 History subcutaneous pen injector (Trulicity) Have you fallen in the past year?: No Nurse's Note: Patient doing well today. PFSH Medical History H/O echocardiogram History of ESBL E. coli infection Lives in senior living Wears glasses Wears dentures Diabetes Uses wheelchair Walker as ambulation aid Arthritis Bladder disease History of IBS Former smoker Hypertension Flank pain Kidney stones ESBL (extended spectrum beta-lactamase) producing bacteria infection Hx pulmonary embolism Surgical History Hx of brain surgery Hx of hysterectomy Hx of total knee arthroplasty Hx of total knee arthroplasty Social History Smoking Status: Former smoker HPI HPI Urology Chief Complaint: pre-op Details: GUMARO HUFF, is a 80 F. The patient is here for preoperative history and physical prior to cystoscopy with right ureteral stent insertion, right renal extracorporal shockwave lithotripsy. There are no new symptoms since the last visit. The procedure, recovery and expectations were explained. The risks, benefits andalternatives were discussed, including but not limited to, the risks of anesthesia, bleeding, infection, injury, pain and the need for further intervention. We have discussed the risk of exposure to and/or potential harm posed by the COVID-19 virus with having a surgery/procedure at this time. A joint decision was made at this time to proceed with the scheduled surgery/procedure as indicated on the consent form. ROS Const Constitutional: No chills, fatigue, fever(s), [...] in bowel habits, constipation, diarrhea or vomiting Genitourinary-Female: Positive for side pain Musc Musculoskeletal: No abnormal gait (In a wheelchair) Skin Skin: No yellowing of the eye, lesions, itchy eyes, rash or skin ulcer Neuro Neurology: No abnormal gait (In a wheelchair), confusion, dizziness, weakness, headache(s) or memory loss Psych Psychiatric: No abnormal sleep pattern, No change in appetite, No confusion and No memory loss Endo Endocrine: No fatigue, increased thirst/drinking or weight change Aller/Imm Allergy/Immunologic: No itchy eyes or wheezing Kenney/Lymp Hematologic/Lymphatic: No easy bleeding, easy bruising or enlarged lymph nodes Exam Const General: cooperative, healthy appearing, comfortable and no acute distress HENMT Head: normocephalic and atraumatic Ears: hearing grossly normal bilaterally and external ears normal Nose: external nose normal Eyes General: appearance normal, both eyes and all related structures Neck Neck: normal visual inspection and trachea midline Chest Chest palpation & inspection: normal inspection of the chest Resp Effort & Inspection: normal respiratory effort, able to speak in complete sentences and symmetric chest movement Cardio Rate: regular rate GI Inspection: normal to inspection Palpation: soft and nontender General: CVA tenderness (Mild) on the right Skin General: no rashes or lesions noted Neuro General: patient alert, patient awake, patient oriented x3 and CN's II-XI intactbilaterally Extrem General: normal to inspection Psych Appearance: grossly normal and well kempt Mental Status: mental status grossly normal Results POC UA Auto w/o Microscopy Office Urine Color YELLOW Last Edit by Siena Lr on 06/30/25 10:36 Office Urine Clarity ? Last Edit by Siena Lr on 06/30/25 10:36 Office Urine Glucose Negative Last Edit by Siena Lr on 06/30/25 10:36 Office Urine Ketones Negative Last Edit by Siena Lr on 06/30/25 10:36 Office Urine Bilirubin Negative Last Edit by Siena Lr on 06/30/25 10:36 Office Urine Urobilinogen 0.2 mg/dL Last Edit by Siena Lr on 06/30/25 10:36 Off Ur Spec [place] 1.010 Last Edit by Siena Lr on 06/30/25 10:36 Office Urine pH 5.5 Last Edit by Siena Lr on 06/30/25 10:36 Office Urine Protein Positive Last Edit by Siena Lr on 06/30/25 10:36 Office Urine Blood Trace Last Edit by Siena Lr on 06/30/25 10:36 25 Siena Be 06/30/25 10:36 Office Urine Blood Hemolyzed ? Last Edit by Siena Lr on 06/30/25 10:36 Office Urine Nitrate Negative Last Edit by Siena Lr on 06/30/25 10:36 Off Ur Leukocytes Positive Last Edit by Siena Lr on 06/30/25 10:36 500 Siena Lr 06/30/25 10:36 Coding Level of Care Code Off vis,est,level 4 Diagnoses Staghorn calculus N20.0 UTI (urinary tract infection) N39.0 Flank pain R10.9 HTN (hypertension) I10 Uncontrolled type 2 diabetes mellitus E11.65 Assessment and Plan Assessment and Plan (1) Staghorn calculus: Status: Acute (2) UTI (urinary tract infection): Status: Acute (3) Flank pain: Status: Acute (4) HTN (hypertension): Status: Chronic (5) Uncontrolled type 2 diabetes mellitus: Status: Acute Orders: Orders POC UA Auto w/o Microscopy 06/30/25 N39.0 - Urinary tract infection, site not specified Plan Urine culture Continue antibiotics per infectious disease Cardiac optimization has been obtained Proceed with surgical intervention as scheduled Clinical Quality Measures Falls Risk Screening/Assistive Devices Have you fallen in the past year?: No 07/06/25 1216 <Electronically signed by Dorota James MD> Date Dorota James MD 07/06/25 1217 <Electronically signed by Dorota James MD> Cosigner Signature (if applicable): CC: Dr. Dorota James MD; Dr. Balwinder Alves MD~ Signed ADDENDUM by Dr. Dorota James MD on 07/06/25 at 1217 Addendum I have examined the patient and the H&P has been reviewed. There are no clinicalchanges since date of exam. 07/06/25 1217<Electronically signed by Dorota James MD> Cosigner Signature (if applicable): cc: Dr. Dorota James MD; Dr. Balwinder Alves MD ~* Signed [facility] Work Phone: 1(102) 785-485710-02-2025 Procedure note [facility] Medical Records Department [address] [place] [address] Operative Report 07/06/25 1224 MR#: [id number] Acct: [id number] Name: GUMARO HUFF Rep #:[id number] : 1945 80 From: Dorota Torres PCP: Dr. Balwinder Alves MD Status:[facility] Location: [place] [address] Operative Report (Standard) Operative Information Date of Procedure: 07/06/25 Pre-Operative Diagnosis: Right renal calculus, urinary tract infection Post-Operative Diagnosis: Same Surgery/Procedure Performed: Cystoscopy with right ureteral stent insertion, right renal extracorporeal shockwave lithotripsy broom builder: No Type of Anesthesia: General RN Documented Start/Stop Times: Operation Date: 07/06/25 12:35 Case Time Into Pre-Op 07/06/25 10:52 Anesthesia Start 07/06/25 12:55 Into Room 07/06/25 12:55 Out of Pre-Op 07/06/25 12:57 Procedure Start 07/06/25 13:12 Procedure Start Time: 13:12 Procedure Stop Time: 13:58 Select all DRAINS/GRAFTS/IMPLANTS that apply: Drains Drain details: 6 Serbian by 28 cm JJ stent Estimated Blood Loss: <5cc Specimen collected: No Description of surgery: The patient is an 80-year-old female with recurrent resistant urinary tract infections who was found to have a large right renal calculus. She now presentsfor surgical intervention. Informed consent was obtained. The patient was taken to the operating room and placed on the operating room table. Sharmin schmitz monitored the head, neck, airway, IV access and vital signs throughout the case. Once anesthesia was appropriate administered, she was placed into dorsolithotomy position and was prepped and draped in usual sterile fashion. The cystoscope was inserted through the urethra under direct visualization into the urinary bladder. Cystoscopy revealed no evidence of mass, erythema, ulceration or foreign body. The right ureteral orifice was intubated with a 0.035 Glidewire which advanced into therenal pelvis is seen on fluoroscopy beyond the level of the stone. A 6 Serbian 28 cm JJ stent was placed over the wire with good positioning in the renal pelvis as well as the urinary bladder. Her bladder was then emptied and the cystoscope was removed. She was repositioned on the table for better access to her large right stone. 3000 shocks were applied to the stone which appeared to be fragmented at the conclusion of the case. She was then awakened and taken to the recovery room ingood condition. There were no complications during this procedure. Surgical Findings: Large right renal stone Complications Complications: No Admit VTE Documentation VTE Present on Admission: Yes VTE Mechan Device Prophylaxis: SCD's VTE Pharm Prophylaxis ordered?: No Reason prophylaxis not ordered: Treatment Not Indicated 07/06/25 1404 Cosigner Signature (if applicable): CC: Dr. Dorota James MD; Dr. Balwinder Alves MD~ Signed [facility]10-02-2025 Consult note [facility] Medical Records Department [address] [place] [id number] Pre-Anesthesia Evaluation 07/06/25 1243 MR#: [id number] Acct: [id number] Name: GUMARO HUFF Rep #:[id number] : 1945 80 From: Shailesh Russell MD PCP: Dr. Balwinder Alves MD Status:[facility] [place] Y Race: C Location: [place] [address]- ASA Classification* ASA Classification ASA Classification: 3 Assessment & Plan Anesthesia* Anesthesia Assessment Anesthesia Assessment: Discussed sedation and/or anesthesia options, risks, benefits, and alternatives with patient/parents/legal guardian/POA. Questions invited. The patient/parents/legal guardian/POA seems to understand and agrees to proceedwith anesthesia plan. Reviewed the physical assessment, medical history, allergy history and patient home medications list prior to surgery/procedure/anesthetic and documented any changes. Performed airway and anesthesia risk assessments. Anesthesia Type Anesthesia Type: General History Source History Obtained from:: Patient and Chart Anesthesia Focused Assessment* Temperature: 98.1 F Pulse Rate: 76 Blood Pressure: 158/76 Respiratory Rate: 18 Pulse Ox: 97 Oxygen Delivery Method: Room Air Airway Assessment Mouth opens: >3 cm Mallampati Score: IV Teeth Condition: Dentures (Patient has full upper dentures. They are out.) and Partial (Patient haslower partial dentures which are out. Rest of the teeth are tight.) Neck Range of motion (ROM): Limited ROM (Somewhat Decreased) Labs Anesthesia Preop lab: CBC WBC, (4.4-11.0) 7.2 K/mm3 07/03/25, 07:00 RBC, (4.2-5.4) 3.80 M/mm3 L 07/03/25, 07:00 Hgb, (12.0-15.0) 11.2 g/dL L 07/03/25, 07:00 Hct, (37-47) 35.9 % L 07/03/25, 07:00 Plt Count, (150-450) 165 K/mm3 07/03/25, 07:00 CHEMISTRY Potassium, (3.3-5.1) 4.6 mmol/L 07/03/25, 07:00 Sodium, (133-145) 139 mmol/L 07/03/25, 07:00 BUN, (4-19) 9 mg/dL 07/03/25, 07:00 Creatinine, (0.70-1.20) 0.70 mg/dL 07/03/25, 07:00 Glucose, (70-99) 169 mg/dL H 07/03/25, 07:00 POC Glucose, (74-106) 133 mg/dL H Today, 11:33 COAG Pre-Assessment Diagnosis/Proposed Procedure Planned Operative Procedure(s): RIGHT ESWL CYSTO RIGHT STENT Anesthesia History Anesthesia History - design architect: Anesthesia History - design architect Hx Hospitalization No 06/28/25 08:30 Any Problems With Anesthesia No 06/28/25 08:30 Cholinesterase deficiency No 06/28/25 08:30 You/Your Family Experience No 06/28/25 08:30 fever (hyperthermia) with Relationship Recent Exposure to Contagious No 07/06/25 11:24 Disease Does patient have nerve No 06/28/25 08:30 stimulator Patient instructed to have device shut off --Does patient have Pacemaker No 07/06/25 11:24 or ICD? When Was Last Pacemaker Check QUESTION #4 FULL TEXT: You/Your Family Experience fever (hyperthermia) with Anesthesia Last Oral Intake Last Oral intake: Last Oral Intake NPO since 07:00 07/06/25 11:24 Meds taken in AM with sips of Yes 07/06/25 11:24 water? Meds patient instructed to Tylenol, colestipol, 07/06/25 11:24 take am of surgery gabapentin, losartan Any additional information?: Yes Meds taken in AM with sips of water?: Yes PONV PONV - design architect: PONV - design architect Female Yes 06/28/25 08:30 HX of Motion Sickness No 06/28/25 08:30 HX of N/V After Surgery No 06/28/25 08:30 Non-Smoker Yes 06/28/25 08:30 Duration of Surgery greater Yes 06/28/25 08:30 than 60 minutes Number of Risk Factors 3 06/28/25 08:30 PONV Score Moderate Risk 06/28/25 08:30 Height & Weight Height & Weight: Anesthesia: Height & Weight Height 5 ft 9 in 07/06/25 11:24 Weight: 127 kg 07/06/25 11:24 Body Mass Index (BMI) 41.3 07/06/25 11:24 Respiratory Assessment Respiratory Assessment - design architect: Respiratory Tract Infection Hx - design architect Hx Respiratory Tract Infection No 06/28/25 08:30 STOP Sleep Apnea STOP Sleep Apnea - design architect: STOP Sleep Apnea - design architect Hx Hypertension Yes 06/28/25 08:30 Hx Sleep Apnea No 06/28/25 08:30 CPAP BIPAP Do you snore loudly (louder No 06/28/25 08:30 than talking or can be heard Do you often feel tired/ No 06/28/25 08:30 fatigued/ sleepy during daytime? Has anyone observed you stop No 06/28/25 08:30 breathing during sleep? STOP Results Negative 06/28/25 08:30 QUESTION #5 FULL TEXT : Do you snore loudly (louder than talking or can be heard through closeddoors)? 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 Specify any problems Hx of Preganancy in last 3 No 06/28/25 08:30 Months Nurse Filling Out Transfusion VLEHMAN 06/28/25 08:30 & Questions: Date: 06/28/25 06/28/25 08:30 Time: 08:30 06/28/25 08:30 Patient unable to answer at this time (ie. confused, unrespo /Reproduction History /Reproductive History - design architect: /Reproductive Hx- design architect Hx Now No 06/28/25 08:30 Gestational Age (in weeks): EDC: Hx Hx Para Hx Section SAB No 06/28/25 08:30 Active Medications Active Medications: Current Medications Generic Name Dose Route Start Last Admin Trade Name Freq PRN Reason Stop Dose Admin Lactated Ringer's 1,000 mls @ 15 mls/hr 07/06/25 11:00 07/06/25 11:46 IV 15 mls/hr .Q48H ELENA Administration Sodium Chloride 10 - 40 ml 07/06/25 11:36 0.9% Saline Lock 10 Ml Syringe IV UD PRN Open End PICC Flush Sodium Chloride 10 - 40 ml 07/06/25 11:36 0.9 % Nacl (Sterile) Posiflush 10 Ml IV UD PRN Port access or dressing change PFSH Medical History H/O echocardiogram History of ESBL E. coli infection Lives in senior living Wears glasses Wears dentures Diabetes Uses wheelchair Walker as ambulation aid Arthritis Bladder disease History of IBS Former smoker Hypertension Flank pain Kidney stones ESBL (extended spectrum beta-lactamase) producing bacteria infection Hx pulmonary embolism Home Medications ?Medication ?Instructions ?Recorded ?Last Taken ?Type duloxetine 60 mg capsule,delayed 60 mg PO QHS 11/01/20 07/05/25 History release losartan 100 mg tablet 100 mg PO DAILY 11/01/2011/29 History metformin 1,000 mg tablet 1,000 mg PO BID 11/01/2010/29 History trazodone 50 mg tablet 25 mg PO QHS 11/01/20 History simvastatin 5 mg tablet 5 mg PO QHS 07/16/23 5 History acetaminophen 500 mg tablet 1,000 mg PO TID 05/17/25 1 History (Tylenol Extra Strength) ascorbic acid (vitamin C) 500 mg 500 mg PO DAILY 05/1707/05/25 History capsule boric acid 600 mg vaginal 600 mg vaginal TUFR 05/17/25 07/05/25 History suppository (Azo Boric Acid) cholecalciferol (vitamin D3) 50 50 mcg PO QDAY 5 07/05/25 History mcg (2,000 unit) tablet colestipol 1 gram tablet 2 g PO BID 05/17/25 07/06/25 History d-mannose 500 mg capsule 1,000 mg PO BID 05/17/2510/29 History diclofenac sodium 1 % topical gel 2 g topical BID 05/05 12/27 Unknown History gabapentin 400 mg capsule 400 mg PO TID 05/17/2507/06 History loperamide 2 mg capsule (Imodium 2 mg PO Q6H PRN diarr hea 05/17/25 Unknown History A-D) methenamine hippurate 1 gram tablet 1 g PO BID 5 07/05/25 History oxybutynin chloride 5 mg tablet 5 mg PO QHS 05/17/25 1 History oxycodone 5 mg tablet 5 mg PO Q6H PRN pain 5 07/05/25 History dulaglutide 3 mg/0.5 mL 3 mg subcut TU 05/29/2506/06 History subcutaneous pen injector (Trulicity) phenazopyridine 200 mg tablet 200 mg PO TID PRN pain # 30 tabs 10/02/25 Unknown Rx tramadol 50 mg tablet 50 mg PO Q8H PRN pain 3 days #10 07/06/25 Unknown Rx tabs Allergy/AdvReac Type Severity Reaction Status Date / Time adhesive tape Allergy Mild blister Verified 07/06/25 11:21 amoxicillin (From Augmentin) Allergy Mild Rash Verified 07/06/25 11:21 ciprofloxacin (From Cipro) Allergy Mild Rash Verified 07/06/25 11:21 clavulanic acid (From Allergy Mild Rash Verified 07/06/25 11:21 Augmentin) latex Allergy Mild Other Verified 07/06/25 11:21 aspirin (ASA) Allergy Unknown PT UNSURE Verified 07/06/25 11:21 OF REACTION cephalexin (From Keflex) Allergy Unknown PT UNSURE Verified 07/06/25 11:21 OF REACTION dapagliflozin (From Farxiga) Allergy Unknown PT UNSURE Verified 07/06/25 11:21 OF REACTION diphenhydramine (From Allergy Unknown PT UNSURE Verified 07/06/25 11:21 Percogesic) OF REACTION ibuprofen Allergy Unknown PT UNSURE Verified 07/06/25 11:21 OF REACTION phenyltoloxamine (From Allergy Unknown PT UNSURE Verified 07/06/25 11:21 Percogesic) OF REACTION vancomycin AdvReac Mild red man Verified 07/06/25 11:21 syndrome sulfamethoxazole (From AdvReac Shortness Verified 07/06/25 11:21 Bactrim) of breath trimethoprim (From Bactrim) AdvReac Shortness Verified 07/06/25 11:21 of breath Surgical History Hx of brain surgery Hx of hysterectomy Hx of total knee arthroplasty Hx of total knee arthroplasty Social History Smoking Status: Former smoker Review of Systems (Anesthesia) ROS Narrative System reviewed and no additional complaints, except as documented. 07/06/25 1250 jaciel OLVERA> Date _ Shailesh Russell MD Cosigner Signature: Date CC: ~ Signed [facility]10-02-2025 Discharge summary [facility] Medical Records Department [address] [place] [address] Instructions for Home/Discharge Instructions 07/06/25 1217 MR#: [id number] Acct: [id number] Name: GUMARO HUFF Rep #:[id number] : 1945 80 From: Dorota Torres PCP: Dr. Balwinder Alves MD Status:[facility] [place] Discharge Instructions Diet Discharge Diet: No restrictions Activity Discharge Activity: Return to Normal Activity Dressing / Incision Call your doctor if your incision/area has: Sudden Increased Bleeding Call your doctor if you observe: Fever of 101 or Higher, Inability to urinate and Inability to havea bowel movement Follow Up Care Please Follow Up With: Dorota James MD Test Results: Test results from this visit will be discussed in further detail at your follow- up appointment, if applicable. Discharge Plan Admission Attending Provider: Dorota James Primary Care Provider: Balwinder Alves Instructions Print Language: Sammarinese Discharge Orders/Prescriptions Prescriptions: New phenazopyridine 200 mg tablet 200 mg PO TID PRN (Reason: pain) Qty: 30 3RF tramadol 50 mg tablet 50 mg PO Q8H PRN (Reason: pain) 3 Days Qty: 10 0RF Continued simvastatin 5 mg tablet 5 mg PO QHS acetaminophen [Tylenol Extra Strength] 500 mg tablet 1,000 mg PO TID ascorbic acid (vitamin C) 500 mg capsule 500 mg PO DAILY Azo Boric Acid 600 mg suppository 600 mg vaginal TUFR colestipol 1 gram tablet 2 g PO BID d-mannose 500 mg capsule 1,000 mg PO BID diclofenac sodium 1 % gel 2 g topical BID gabapentin 400 mg capsule 400 mg PO TID loperamide [Imodium A-D] 2 mg capsule 2 mg PO Q6H PRN (Reason: diarrhea) methenamine hippurate 1 gram tablet 1 g PO BID oxybutynin chloride 5 mg tablet 5 mg PO QHS oxycodone 5 mg tablet 5 mg PO Q6H PRN (Reason: pain) cholecalciferol (vitamin D3) 50 mcg (2,000 unit) tablet 50 mcg PO QDAY trazodone 50 MG tablet 25 mg PO QHS metformin 1,000 MG tablet 1,000 mg PO BID losartan 100 MG tablet 100 mg PO DAILY duloxetine 60 MG capsule,delayed release(DR/EC) 60 mg PO QHS Trulicity 3 mg/0.5 mL pen injector 3 mg subcut TU Referrals / Follow Up: Balwinder Alves MD [Primary Care Provider, Family Practice] Disposition Disposition (needs filled in before D/C Order can be placed): Home, Self Care 07/06/25 1224Dorota James MD CC: Dr. Balwinder Alves MD ~ Signed [facility]10-02-2025 History and physical note [facility] Medical Records Department [address] [place] [address] History & Physical Exam 07/06/25 1211 MR#: [id number] Acct: [id number] Name: GUMARO HUFF [place] Rep #:[id number] : 1945 80 From: Dorota Torres PCP: Dr. Balwinder Alves MD Status:[facility] Location: [place] [address] History and Physical Date of Admission: 07/06/25 Date of Service: 06/30/25 MR#: [id number] Acct: [id number] Name: GUMARO HUFF [place] Rep #: [id number] : 1945 Provider: Dr. Dorota James MD Age/Sex: 80/F Location: [facility] [place] Status: Signed Intake Vital Signs 05/17/2510:04 06/30/2510:21 Height 5 ft 9 in 5 ft 9 in Weight: 278 lb BMI 41.0 BP 124/78 H Pulse 78 Temp 97.9 F Intake Visit Reasons: Pre-op Urine C&S/sign consent Chief Complaint: pre-op Accompanied by: Caregiver Is patient in pain?: No Allergies adhesive tape Allergy (Mild, Verified 07/06/25 11:21) blister amoxicillin (From Augmentin) Allergy (Mild, Verified 07/06/25 11:21) Rash ciprofloxacin (From Cipro) Allergy (Mild, Verified 07/06/25 11:21) Rash clavulanic acid (From Augmentin) Allergy (Mild, Verified 07/06/25 11:21) Rash latex Allergy (Mild, Verified 07/06/25 11:21) Other aspirin (ASA) Allergy (Unknown, Verified 07/06/25 11:21) PT UNSURE OF REACTION cephalexin (From Keflex) Allergy (Unknown, Verified 07/06/25 11:21) PT UNSURE OF REACTION dapagliflozin (From Farxiga) Allergy (Unknown, Verified 07/06/25 11:21) PT UNSURE OF REACTION diphenhydramine (From Percogesic) Allergy (Unknown, Verified 07/06/25 11:21) PT UNSURE OF REACTION ibuprofen Allergy (Unknown, Verified 07/06/25 11:21) PT UNSURE OF REACTION phenyltoloxamine (From Percogesic) Allergy (Unknown, Verified 07/06/25 11:21) PT UNSURE OF REACTION vancomycin Adverse Reaction (Mild, Verified 07/06/25 11:21) red man syndrome sulfamethoxazole (From Bactrim) Adverse Reaction (Verified 07/06/25 11:21) Shortness of breath trimethoprim (From Bactrim) Adverse Reaction (Verified 07/06/25 11:21) Shortness of breath Medications ?Medication ?Instructions ?Recorded ?Confirmed ?Type duloxetine 60 mg capsule,delayed 60 mg PO QHS 11/01/20 07/06/25 History release losartan 100 mg tablet 100 mg PO DAILY 11/01/20 07/06/25 Histor y metformin 1,000 mg tablet 1,000 mg PO BID 11/01/20 07/06/25 Histor y trazodone 50 mg tablet 25 mg PO QHS 11/01/20 07/06/25 History simvastatin 5 mg tablet 5 mg PO QHS 07/16/23 07/06/25 History acetaminophen 500 mg tablet 1,000 mg PO TID 05/17/25 07/06/25 Histor y (Tylenol Extra Strength) ascorbic acid (vitamin C) 500 mg 500 mg PO DAILY 05/17/25 07/06/25 Histor y capsule boric acid 600 mg vaginal 600 mg vaginal TUFR 05/17/25 07/06/25 Hi story suppository (Azo Boric Acid) cholecalciferol (vitamin D3) 50 50 mcg PO QDAY 05/17/25 07/06/25 History mcg (2,000 unit) tablet colestipol 1 gram tablet 2 g PO BID 05/17/25 07/06/25 History d-mannose 500 mg capsule 1,000 mg PO BID 05/17/25 07/06/25 Histor y diclofenac sodium 1 % topical gel 2 g topical BID 05/17/25 06/30/25 Histor y gabapentin 400 mg capsule 400 mg PO TID 05/17/25 07/06/25 History loperamide 2 mg capsule (Imodium 2 mg PO Q6H PRN diarrhea 05/17/25 History A-D) methenamine hippurate 1 gram tablet 1 g PO BID 05/17/25 07/06/25 History oxybutynin chloride 5 mg tablet 5 mg PO QHS 05/17/25 07/06/25 History oxycodone 5 mg tablet 5 mg PO Q6H PRN pain 05/17/25 07/06/25 H istory dulaglutide 3 mg/0.5 mL 3 mg subcut TU 05/29/25 07/06/25 History subcutaneous pen injector (Trulicity) Have you fallen in the past year?: No Nurse's Note: Patient doing well today. [facility] Medical History H/O echocardiogram History of ESBL E. coli infection Lives in senior living Wears glasses Wears dentures Diabetes Uses wheelchair Walker as ambulation aid Arthritis Bladder disease History of IBS Former smoker Hypertension Flank pain Kidney stones ESBL (extended spectrum beta-lactamase) producing bacteria infection Hx pulmonary embolism Surgical History Hx of brain surgery Hx of hysterectomy Hx of total knee arthroplasty Hx of total knee arthroplasty Social History Smoking Status: Former smoker HPI HPI Urology Chief Complaint: pre-op Details: GUMARO HUFF, is a 80 F. The patient is here for preoperative history and physical prior to cystoscopy with right ureteral stent insertion, right renal extracorporal shockwave lithotripsy. There are no new symptoms since the last visit. The procedure, recovery and expectations were explained. The risks, benefits andalternatives were discussed, including but not limited to, the risks of anesthesia, bleeding, infection, injury, pain and the need for further intervention. We have discussed the risk of exposure to and/or potential harm posed by the COVID-19 virus with having a surgery/procedure at this time. A joint decision was made at this time to proceed with the scheduled surgery/procedure as indicated on the consent form. ROS Const Constitutional: No chills, fatigue, fever(s), [...] in bowel habits, constipation, diarrhea or vomiting Genitourinary-Female: Positive for side pain Musc Musculoskeletal: No abnormal gait (In a wheelchair) Skin Skin: No yellowing of the eye, lesions, itchy eyes, rash or skin ulcer Neuro Neurology: No abnormal gait (In a wheelchair), confusion, dizziness, weakness, headache(s) or memory loss Psych Psychiatric: No abnormal sleep pattern, No change in appetite, No confusion and No memory loss Endo Endocrine: No fatigue, increased thirst/drinking or weight change Aller/Imm Allergy/Immunologic: No itchy eyes or wheezing Kenney/Lymp Hematologic/Lymphatic: No easy bleeding, easy bruising or enlarged lymph nodes Exam Const General: cooperative, healthy appearing, comfortable and no acute distress [facility] Head: normocephalic and atraumatic Ears: hearing grossly normal bilaterally and external ears normal Nose: external nose normal Eyes General: appearance normal, both eyes and all related structures Neck Neck: normal visual inspection and trachea midline Chest Chest palpation & inspection: normal inspection of the chest Resp Effort & Inspection: normal respiratory effort, able to speak in complete sentences and symmetric chest movement Cardio Rate: regular rate GI Inspection: normal to inspection Palpation: soft and nontender General: CVA tenderness (Mild) on the right Skin General: no rashes or lesions noted Neuro General: patient alert, patient awake, patient oriented x3 and CN's II-XI intactbilaterally Extrem General: normal to inspection Psych Appearance: grossly normal and well kempt Mental Status: mental status grossly normal Results POC UA Auto w/o Microscopy Office Urine Color YELLOW Last Edit by Siena Lr on 06/30/25 10:36 Office Urine Clarity ? Last Edit by Siena Lr on 06/30/25 10:36 Office Urine Glucose Negative Last Edit by Siena rL on 06/30/25 10:36 Office Urine Ketones Negative Last Edit by Siena Lr on 06/30/25 10:36 Office Urine Bilirubin Negative Last Edit by Siena Lr on 06/30/25 10:36 Office Urine Urobilinogen 0.2 mg/dL Last Edit by Siena Lr on 06/30/25 10:36 Off Ur Spec [place] 1.010 Last Edit by Siena Lr on 06/30/25 10:36 Office Urine pH 5.5 Last Edit by Siena Lr on 06/30/25 10:36 Office Urine Protein Positive Last Edit by Siena Lr on 06/30/25 10:36 Office Urine Blood Trace Last Edit by Siena Lr on 06/30/25 10:36 25 Sienaastrid Lr 06/30/25 10:36 Office Urine Blood Hemolyzed ? Last Edit by Siena Lr on 06/30/25 10:36 Office Urine Nitrate Negative Last Edit by Siena Lr on 06/30/25 10:36 Off Ur Leukocytes Positive Last Edit by Siena Lr on 06/30/25 10:36 500 Siena Lr 06/30/25 10:36 Coding Level of Care Code Off vis,est,level 4 Diagnoses Staghorn calculus N20.0 UTI (urinary tract infection) N39.0 Flank pain R10.9 HTN (hypertension) I10 Uncontrolled type 2 diabetes mellitus E11.65 Assessment and Plan Assessment and Plan (1) Staghorn calculus: Status: Acute (2) UTI (urinary tract infection): Status: Acute (3) Flank pain: Status: Acute (4) HTN (hypertension): Status: Chronic (5) Uncontrolled type 2 diabetes mellitus: Status: Acute Orders: Orders POC UA Auto w/o Microscopy 06/30/25 N39.0 - Urinary tract infection, site not specified Plan Urine culture Continue antibiotics per infectious disease Cardiac optimization has been obtained Proceed with surgical intervention as scheduled Clinical Quality Measures Falls Risk Screening/Assistive Devices Have you fallen in the past year?: No 07/06/25 1216 Date Dorota James MD 07/06/25 1217 Cosigner Signature (if applicable): CC: Dr. Dorota James MD; Dr. Balwinder Alves MD~ Signed ADDENDUM by Dr. Dorota James MD on 07/06/25 at 1217 Addendum I have examined the patient and the H&P has been reviewed. There are no clinicalchanges since date of exam. 07/06/251216 Cosigner Signature (if applicable): cc: Dr. Dorota James MD; Dr. Balwinder Alves MD ~* Signed [facility]10-02-2025 [facility] Medical Records Department [address] [place] [address] History Physical Exam 07/06/25 1211 MR#: [id number] Acct: [id number] Name: GUMARO HUFF Ewa Rep #: [id number] : 1945 80 From: Dorota James MD PCP: Dr. Balwinder Alves MD Status:[facility] Location: [place] [address] History and Physical Date of Admission: 07/06/25 Date of Service: 06/30/25 MR#: [id number] Acct: [id number] Name: JOY HUFFBLAIR Mcneil Rep #: [id number] : 1945 Provider: Dr. Dorota James MD Age/Sex: 80/F Location: [facility] [place] Status: Signed Intake Vital Signs 05/17/2510:04 06/30/2510:21 Height 5 ft 9 in 5 ft 9 in Weight: 278 lb BMI 41.0 BP 124/78 H Pulse 78 Temp 97.9 F Intake Visit Reasons: Pre-op Urine C S/sign consent Chief Complaint: pre-op Accompanied by: Caregiver Is patient in pain?: No Allergies adhesive tape Allergy (Mild, Verified 07/06/25 11:21) blister amoxicillin (From Augmentin) Allergy (Mild, Verified 07/06/25 11:21) Rash ciprofloxacin (From Cipro) Allergy (Mild, Verified 07/06/25 11:21) Rash clavulanic acid (From Augmentin) Allergy (Mild, Verified 07/06/25 11:21) Rash latex Allergy (Mild, Verified 07/06/25 11:21) Other aspirin (ASA) Allergy (Unknown, Verified 07/06/25 11:21) PT UNSURE OF REACTION cephalexin (From Keflex) Allergy (Unknown, Verified 07/06/25 11:21) PT UNSURE OF REACTION dapagliflozin (From Farxiga) Allergy (Unknown, Verified 07/06/25 11:21) PT UNSURE OF REACTION diphenhydramine (From Percogesic) Allergy (Unknown, Verified 07/06/25 11:21) PT UNSURE OF REACTION ibuprofen Allergy (Unknown, Verified 07/06/25 11:21) PT UNSURE OF REACTION phenyltoloxamine (From Percogesic) Allergy (Unknown, Verified 07/06/25 11:21) PT UNSURE OF REACTION vancomycin Adverse Reaction (Mild, Verified 07/06/25 11:21) red man syndrome sulfamethoxazole (From Bactrim) Adverse Reaction (Verified 07/06/25 11:21) Shortness of breath trimethoprim (From Bactrim) Adverse Reaction (Verified 07/06/25 11:21) Shortness of breath Medications ???Medication ???Instructions ???Recorded ???Confirmed ???Type duloxetine 60 mg capsule,delayed 60 mg PO QHS 11/01/20 07/06/25 History release losartan 100 mg tablet 100 mg PO DAILY 11/01/20 07/06/25 History metformin 1,000 mg tablet 1,000 mg PO BID 11/01/20 07/06/25 History trazodone 50 mg tablet 25 mg PO QHS 11/01/20 07/06/25 History simvastatin 5 mg tablet 5 mg PO QHS 07/16/23 07/06/25 History acetaminophen 500 mg tablet 1,000 mg PO TID 05/17/25 07/06/25 History (Tylenol Extra Strength) ascorbic acid (vitamin C) 500 mg 500 mg PO DAILY 05/17/25 07/06/25 History capsule boric acid 600 mg vaginal 600 mg vaginal TUFR 05/17/25 07/06/25 History suppository (Azo Boric Acid) cholecalciferol (vitamin D3) 50 50 mcg PO QDAY 05/17/25 07/06/25 History mcg (2,000 unit) tablet colestipol 1 gram tablet 2 g PO BID 05/17/25 07/06/25 History d-mannose 500 mg capsule 1,000 mg PO BID 05/17/25 07/06/25 History diclofenac sodium 1 % topical gel 2 g topical BID 05/17/25 06/30/25 History gabapentin 400 mg capsule 400 mg PO TID 05/17/25 07/06/25 History loperamide 2 mg capsule (Imodium 2 mg PO Q6H PRN diarrhea 05/17/25 07/06/25 History A-D) methenamine hippurate 1 gram tablet 1 g PO BID 05/17/25 07/06/25 History oxybutynin chloride 5 mg tablet 5 mg PO QHS 05/17/25 07/06/25 History oxycodone 5 mg tablet 5 mg PO Q6H PRN pain 05/17/25 07/06/25 History dulaglutide 3 mg/0.5 mL 3 mg subcut TU 05/29/25 07/06/25 History subcutaneous pen injector (Trulicity) Have you fallen in the past year?: No Nurse's Note: Patient doing well today. PFSH Medical History H/O echocardiogram History of ESBL E. coli infection Lives in senior living Wears glasses Wears dentures Diabetes Uses wheelchair Walker as ambulation aid Arthritis Bladder disease History of IBS Former smoker Hypertension Flank pain Kidney stones ESBL (extended spectrum beta-lactamase) producing bacteria infection Hx pulmonary embolism Surgical History Hx of brain surgery Hx of hysterectomy Hx of total knee arthroplasty Hx of total knee arthroplasty Social History Smoking Status: Former smoker HPI HPI Urology Chief Complaint: pre-op Details: GUMARO HUFF, is a 80 F. The patient is here for preoperative history and physical prior to cystoscopy with right ureteral stent insertion, right renal extracorporal shockw (more content not included)... [facility]08-14-2025 Radiology Diagnostic study note [facility] Imaging Services [address] [place] [address] Abdomen Single View MR#: [id number] Acct: [id number] Name: GUMARO HUFF Rep #: [id number] : 1945 F 80 From: Gena Barth MD PCP: Dr. Balwinder Alves MD Status: REG CLI Study:Abdomen Single View Date of Exam: 05/17/25 Exam# [id number] Ordering Dr: Dorota James MD PROCEDURE: ABDOMEN [...] renal staghorn calculus is redemonstrated. Reading Location: [place] [address] CC: Dr. Dorota James MD; Dr. Balwinder Alves MD ~ Support Associate: Signed [facility]08-13-2025 Evaluation note* Diagnosis Onset Date Resolution Status Admit Date Flank pain acute May 17, 025 9:40am Staghorn calculus acute May 17, 2025 9:40am Uncontrolled type 2 diabetes mellitus acute May 17 9:40am UTI (urinary tract infection) acute May 17, 2025 9:40am HTN (hypertension) chronic May 17, 2025 9:40am [facility] Work Phone: 1(537) 382-662008-13-2025 Evaluation note* Diagnosis Onset Date Resolution Status Admit Date Flank pain acute [place] 13th, 2 025 9:40am Staghorn calculus acute May 17, 2025 9:40am Uncontrolled type 2 diabetes mellitus acute May 17 9:40am UTI (urinary tract infection) acute May 17, 2025 9:40am HTN (hypertension) chronic May 17, 2025 9:40am UTI (urinary tract infection) acute June 30, 2025 10:09am [facility] Work Phone: 1(791) 504-913908-13-2025 Evaluation note* Diagnosis Onset Date Resolution Status Admit Date Flank pain acute May 17, 2 025 9:40am Staghorn calculus acute May 17, 2025 9:40am Uncontrolled type 2 diabetes mellitus acute May 17 9:40am UTI (urinary tract infection) acute May 17, 2025 9:40am HTN (hypertension) chronic May 17, 2025 9:40am Flank pain acute June 10:09am Staghorn calculus acute 2024 10:09am Uncontrolled type 2 diabetes mellitus acute June 30, 2025 10:09am UTI (urinary tract infection) acute June 30, 2025 10:09am HTN (hypertension) chronic 2024 10:09am [facility] Work Phone: 1(762) 472-856606-27-2025 Radiology Diagnostic study note [facility] Imaging Services [address] [place], [place] [id number] Abdomen/Pelvis without Cont MR#: [id number] Acct: [id number] Name: GUMARO HUFF Rep #: [id number] : 1945 F 80 From: Adalid Hanna MD PCP: Dr. Balwinder Alves MD Status: REG CLI Study:Abdomen/Pelvis without Cont Date of Exa m: 03/31/25 Exam# [id number] Ordering Dr: Dorota James MD PROCEDURE: ABDOMEN/PELVIS [...] Sigmoid diverticulosis. Status post cholecystectomy. Reading Location: [id number] CC: Dr. Dorota James MD; Dr. Balwinder Alves MD ~ Support Associate: Signed [facility]05-04-2024 Discharge summary Author Omid Montiel [facility] February 06, 2024 6:02pm Note Date/Time February 06, 2024 4:09pm [facility] Medical Records Department [address] [place] [address] Emergency Department Summary 02/06/24 MR#: [id number] Acct: [id number] Name: GUMARO HUFF Rep #:[id number] : 1945 78 From: Omid Montiel MD [...] line because they want to start vancomycin. [facility] Medical History Brain bleed Cataract Closed fracture [...] on antibiotics orally. Disposition is discharged to [facility] in stable condition. History & Record [...] Provider] - 2 Days Laci Brewer NP, SPECIAL EVENTS DIRECTOR-C [Non-Staff] - Activity Restrictions/Additional Instructions: Remove packing/have packing removed in 48 hours. Do not leave in longer. Continue vancomycin through your peripheral IV. Disposition Disposition: Care Home Facility Discharge Location: [facility] What to do if you have Problems For any increased pain, shortness of breath, bleeding, nausea or vomiting, chestpain, or any unexpected problems, contact your Primary Care Provider. Call Clinical Data Registry ([phone]) or report to the closest Emergency Room. Call 911 if necessary. 02/06/24 1802 <Electronically signed by Omid Montiel MD> Cosigner Signature (if applicable): CC: Dr. Balwinder Alves MD ~ Signed [facility] Work Phone: 1(672) 201-341003-06-2024 History of Present illness Narrative* LIA Champagne - 12/09/2023 10:30 AM EST Images from the original note were not included. [facility] [address] [place] [address] [place] [id number] Dept: [phone] Dept Gumaro Huff 1945 [id number] 12/09/2023 HISTORY OF PRESENT ILLNESS: Gumaro returns [...] to improve. Electronically signed by LIA Champagne [facility] Department of Orthopedic surgery 12/09/2023 3:43 PM Voice recognition was used for portions of this note and although it was reviewed prior to signing some incorrect words or phrases could be present. documented in this [facility]01-10-2024 History of Present illness Narrative* LIA Champagne - 10/14/2023 10:00 AM EST Images from the original note were not included. [facility] [address] [place] [address] [address] [facility] [id number] Dept: [phone] Dept Gumaro Huff 1945 [id number] 10/14/2023 HISTORY OF PRESENT ILLNESS: Gumaro returns [...] with Imaging. Electronically signed by LIA Champagne [facility] Department of Orthopedic surgery 10/14/2023 3:50 PM Voice recognition was used for portions of this note and although it was reviewed prior to signing some incorrect words or phrases could be present. documented in this encounterSHolzer Health [id number] Telephone encounter Note* Telephone Encounter - Kimberly Capellan MA - 09/03/2023 8:53 AM EST Left distal fibula fx doi 07/02/23 she is in a boot. Can only be seen in [place] or [place]. No wads [id number] Miscellaneous Notes* Telephone Encounter - Kimberly Capellan MA - 09/03/2023 8:53 AM EST Left distal fibula fx doi 07/02/23 she is in a boot. Can only be seen in [place] or [place]. No wads * Telephone Encounter - Sammie Lantigua - 09/02/2023 12:08 PM EST Gareth an RN at [facility] called [phone] ext 2008, he states that they just got Gumaro from [place] and they are looking for her to [...] requesting a call back, he works until :30 today and then works again tomorrow. * Telephone Encounter - Billy Araya MA - 07/17/2023 9:27 AM EDT LVM to schedule with Dr. Ureña on Thursday at 1pm in [facility] or 9am in [place] if not already double booked. documented in this [facility]11-29-2023 Telephone encounter Note* Telephone Encounter - Sammie Lantigua - 09/02/2023 12:08 PM EST Gareth toussaint RN at [facility] called [phone] ext 2008, he states that they just got Gumaro from [place] and they are looking for her to [...] 2:30 today and then works again tomorrow. [facility] [id number] Miscellaneous Notes* Telephone Encounter - Sammie Lantigua - 09/02/2023 12:08 PM EST Gareth toussaint RN at [facility] called [phone] ext 2008, he states that they just got Gumaro from [place] and they are looking for her to [...] Dr. Ureña on Thursday at 1pm in [facility] or 9am in [place] if not already double booked. documented in this encounterSHolzer Health [id number] Telephone encounter Note* Telephone Encounter - Billy Araya MA - 07/17/2023 9:27 AM EDT LVM to schedule with Dr. Ureña on Thursday at 1pm in [facility] or 9am in [place] if not already double booked. [facility] [id number] Hospital Discharge instructions Patient Education 07/03/2023 14:56:59 Urinary Tract Infection, Adult, Etfj-mh-Ojwt Urinary Tract Infection, Adult A urinary tract [...] Follow these instructions at home: Medicines Take ncie-wkm-snqbhwh and prescription medicines only as told by [...] 03/09/2009 Document Revised: 09/08/2019 Document Reviewed: 03/31/2019 [employer] Patient Education 2020 [employer]. Follow Up Care 06/30/2023 15:11:52 With:LACI BREWER Address: [address] [place] [address] [phone] When:3-5 days Comments:Please schedule a Follow up appt with your PCP after d/c. [facility] 09-29-2023 Note Discharge Instructions Thank you for allowing [facility] to assist you with your healthcare needs. The following is importantdischarge information regarding your hospital visit. Your Care Team Heather Hunt APRN Your Diagnosis Ankle pain-swelling Depression Fall Fibula fracture Hypertension Type 2 diabetes mellitus Urinary tract infection What to do next Scheduled Follow-Up Appointments Appointment Type When With Where [facility]/22/2023 11:30 AM EST LACI BREWER [address] [phone] Follow Up Appointments Follow Up with LACI BREWER When Within 3-5 days Why: Please schedule a Follow up appt with your PCP after d/c. Where: [address] [place] [address] [phone] The Following Activity and Diet Have Been [...] When Why Instructions Last Dose New acetaminophen-hydrocodone (Delphia 325- 5 mg oral tablet) 1 tab(s) [...] Follow these instructions at home: Medicines Take smmm-cdv-pdlklkm and prescription medicines only as told by [...] 03/09/2009 Document Revised: 09/08/2019 Document Reviewed: 03/31/2019 [employer] Patient Education 2020 [employer]. Additional Information VACCINATE! IT SAVES LIVES! Members of the community who have not yet received the COVID-19 vaccine and would like to receive it can visit one of [facility] vaccine clinics. There are many vaccine clinic locations within the [facility]. For locations and available times, please visit [email or web address].coronavirus.[place].gov/. It is important to note that some COVID mobile vaccine clinics are held outdoors and may be canceled in rainy or stormy conditions. To learn more about pediatric vaccinations (ages 5-11), we invite you to visit the [facility] webpage. https://www.[email or web address].org/pages/[email or web address]-Tuqzr-Ddekjgnkpmb-Prxbxsblle-[email or web address]-[email or web address] stions.htmlTo learn more about the COVID-19 vaccine, we invite you to visit the CDC website for a list of frequently asked questions.https://www.cdc.gov/coronavirus/2019-ncov/vaccines/faq.html [facility] Patient Portal Access Instructions: Stay connected with your healthcare team and access your personal medical information anytime with the [facility] Patient Portal. Please follow the directions below to create your [facility] account: 1.Access the email account you provided upon registration to the hospital/physician office.2.Look for an invitation email from [facility].3.Open the email and access the invitation link: AcceptInvitation to [facility].4.Fill in the required correa to create your account. To access your account, visit [email or web address]. Click the blue button labeled "Access Patient [...] who you will allowto register on the [facility] Patient Portal for access to your information. You can also access the [facility] Patient Portal on the [facility] calos. Simply click on "Patient Portal" and then log into your account. If you would like to receive a full copy of your medical records, please contact the [facility] Medical Records Department by calling [phone], Thursday through Thursday between 8 a.m. and [...] Call your local pharmacy or go to [email or web address]/[email or web address] to find one close to you.3.Make use of household items: Use cat litter or old coffee grounds to dispose medications if other options arenot available. Mix your drugs with these household products, seal them in an airtight container andthrow it into the garbage. Call [facility]: [phone] to be sure your drugs can be [...] Patient Education Materials Urinary Tract Infection, Adult, Bdnd-pl-Ntga Medication Leaflets My discharge plan and instructions have been reviewed and explained to me and I,GUMARO HUFF understand my current condition and have read and understand these discharge instructions. I have received a written copy of the plan/instructions. If I have questions, I am aware that I should contact my doctor. Patient/Professor Of Counseling Signature: Date/Time: Relationship to Patient: Witness Name/Signature: Date/Time: [facility]09-29-2023 Note Date of Service 07/03/2023 Chief Complaint Fibula fracture Subjective 78-year-old female with past medical history significant for HTN, HLD, type 2 diabetes mellitus, morbid obesity. Next Patient presented to [facility] emergency department on 06/30/2023 with [...] currently. Pain was not well controlled with Delphia alone. Objective Vitals and Measurements T: 36.6 [...] Dr. Roberto, nonweightbearing status for 6 weeks. Delphia for pain. Patient has a documented allergy [...] Time Spent 36 minutes was spent in hewj-rb-zqwd time and coordination of care for this patient, including but not limited to personally gathering history, examining the patient, reviewing labs and images and records, counseling patient and/or family about diagnosis and potential workup if applicable, as detailed above as well as discussing the case with patient's interdisciplinary team where applicable. Digitally Signed by HEATHER HUNT on 07/03/2023 01:33 PM [facility]09-28-2023 Note Date of Service 07/02/2023 Chief Complaint Fall Subjective 78-year-old female with past medical history significant for HTN, HLD, type 2 diabetes mellitus, morbid obesity. Next Patient presented to [facility] emergency department on 06/30/2023 with [...] Dr. Roberto, nonweightbearing status for 6 weeks. Delphia for pain. Patient has a documented allergy [...] by HEATHER HUNT on 07/02/2023 04:17 PM [facility] [facility] Note. MICRO - Microbiology PROCEDURE: Urine Culture [...] Locations *1: This test was performed at: [facility], [address] [place] [address], [id number] , [facility] ([place])07-01-2023 Note Date of Service 07/01/2023 Chief Complaint [...] Patient states that she has been to [facility] before and would be willing to go [...] - holding off until seen by ortho. *on site services specialist consulted for discharge planning. *Continue PO pain [...] medications, discussing plan of care with nursing,social insurance administrator, and therapy, examining patient, collaborating with physician, and documenting in chart. Digitally Signed by ROHAN MCDOWELL on 07/01/2023 04:17 PM [facility]09-26-2023 Note Date of Service 06/30/2023 Chief Complaint Patient fell at home and is complaining of left-sided ankle pain. History of Present Illness Patient is an 78-year-old female, who follows with Laci Brewer CNP with a past medical history significant for hypertension, hyperlipidemia, type 2 diabetes and morbid obesity, presented to [facility] emergency department with the chief complaint [...] evaluate and treat. We will consult social insurance administrator for discharge planning. Check CBC and [...] PT and OT to evaluate and treat. *on site services specialist consulted for discharge planning. *Continue PO pain [...] 04/06/2019 Use: Never., 04/06/2019 Home/Environment Self Primary Cottrell Operator:., 04/06/2019 Nutrition/Health Type of diet: Regular. Appetite Good. Eating Difficulties None. Caffeine intake amount: Occ Coke. Two protein drink daily, it has caffeine of one cup of coffee., 08/19/2022 Substance Abuse Use: Never., 04/06/2019 Tobacco Tobacco Use: Former smoker, quit more than 30 days ago., 04/06/2019 Family History Arthritis: Sister. Asbestosis: Father. Cancer: Mother. Diabetes: Sister. Guillain [place] syndrome: Sister. Heart disease: Sister. Malignant neoplasm [...] by ROHAN MCDOWELL on 06/30/2023 04:51 PM [facility]09-26-2023 Note ORIGINAL EXAMINATION: 3 x-ray views of [...] Sign Date: 06/30/2023 4:00:26 PM Ordering Provider: [address]26-2023 Note ORIGINAL EXAMINATION: TWO XRAY VIEWS [...] Sign Date: 06/30/2023 4:01:46 PM Ordering Provider: [address]26-2023 Evaluation + Plan noteExtracted from: Title:History and Physical Author:ROHAN MCDOWELL APRN-[employer] Date:06/30/23 1. Ankle pain-swelling Acute, s/p mechanical fall at home *X-ray of left ankle reveals fracture of distal fibula. *Consult Dr. Jose Roberto, orthopedics, for recommendation. *Patient is non weightbearing to left ankle. *Consult placed to PT and OT to evaluate and treat. *on site services specialist consulted for discharge planning. *Continue PO pain [...] Appointment Date:09/22/2023 11:30:00 AM Scheduled Provider:LACI BREWER Location:[facility] [place] Appointment Type:PC [facility] Consult note Author Gerry Brown [facility] Note Date/Time July 06, 2025 2: 20pm [facility] Medical Records Department [address] [place] [address] Anesthesia Postop Eval I 07/06/25 1419 MR#: [id number] Acct: [id number] Name: GUMARO HUFF Rep #:[id number] : 1945 80 From: Gerry Brown PCP: Dr. Balwinder Alves MD Status:REG SDC Y Race: C Location: [place] [address] Anesthesia: Postop Eval I Current Vital Signs Temperature: 97.3 F Pulse Rate: 74 Blood Pressure: 167/83 Respiratory Rate: 16 Pulse Ox: 94 Oxygen Delivery Method: Room Air Assessment Airway patent: Yes Spontaneous unlabored respirations: Yes Mental status: Awake nausea: No Vomiting: No Anesthesia Complication: No Fluid Hydration Crystalloid volume administer (ml): 600 Total IV fluid infused: 600 Progress Note Anesthesia document: Postop Eval 1 completed: Yes 07/06/25 1420 <Electronically signed by Gerry Brown > Date _ Gerry Lee Signature: Date CC: ~ Signed [facility] Work Phone: Consult note Author Arcenio King [facility] Note Date/Time July 06, 2025 4: 16pm [facility] Medical Records Department [address] [place] [address] Anesthesia Postop Eval II 07/06/25 1616 MR#: [id number] Acct: [id number] Name: GUMARO HUFF Ewa Rep #:[id number] : 1945 80 From: Arcenio MARCIAL PCP: Dr. Balwinder Alves MD Status:REG [facility] Y Race: C Location: [place] [address] Anesthesia Postop Eval I Sum Postop Eval Completion status Anesthesia document: Postop Eval 1 completed: Yes Anesthesia Postop Eval I Summary Anesthesia Postop Eval I Summary: Anesthesia Postop Eval I: Assessment Summary Airway patent Yes 07/06/25 14:20 [email or web address] Spontaneous unlabored Yes 07/06/25 14:20 [email or web address] respirations Mental status Awake 07/06/25 14:20 [email or web address] nausea No 07/06/25 14:20 [email or web address] Vomiting No 07/06/25 14:20 [email or web address] Anesthesia Postop Eval I: Fluid Summary Crystalloid volume administer 600 07/06/25 14:20 [email or web address] (ml) Colloids volume administered ( ml) Blood Product volume administered (ml) Total IV fluid infused 600 07/06/25 14:20 [email or web address] Anesthesia Postop Eval I: Summary Notes Anesthesia Complication No 07/06/25 14:20 [email or web address] Anesthesia Complication Comment: Post-operative progress note Anesthesia: Postop Eval II Evaluation Mental status: Awake Pain Level: 2 nausea: No Vomiting: No 07/06/25 1616 <Electronically signed by Arcenio King CRNA> Date _ Arcenio King CRNA Cosigner Signature: Date CC: ~ Signed [facility] Work Phone: Evaluation + Plan note Future Appointments Appointment Date:07/24/2021 11:30:00 AM Scheduled Provider:LACI BREWER Location:[facility] [place] Appointment Type: OV Future Scheduled Tests Laboratory* Vitamin D Level 01/22/21 * Vitamin D Level 11/06/20 [facility] Evaluation + Plan note Future Appointments Appointment Date:02/04/2022 11:00:00 AM Scheduled Provider:LACI BREWER Location:[facility] [place] Appointment Type: OV Follow Up [facility] evaluation + Plan note Future Appointments Appointment Date:02/10/2023 11:30:00 AM Scheduled Provider:LACI BREWER Location:[facility] [place] Appointment Type:PC OV [facility] evaluation note* Diagnosis Onset Date Resolution Status Closed fracture of left distal fibula acute Left ankle pain acute [facility] Work Phone: evaluation note* Diagnosis Closed fracture of left ankle, initial encounter- Primary [facility] Diagnosis Closed fracture of distal end of left fibula, unspecified fracture morphology, initial encounter Acute left ankle pain documented in this encounter [facility]* Diagnosis Closed fracture of distal end of left fibula, unspecified fracture morphology, initial encounter- [facility] Closed fracture of distal end of left fibula, unspecified fracture morphology, initial encounter- Primary [facility] Work Phone: Evaluation note* Diagnosis Onset Date Resolution Status Admit Date Kidney stones acute May 9:40am UTI (urinary tract infection) acute May 17, 2025 9:40am [facility] Work Phone: Hospital course Narrative No data available for this section [facility] Hospital Discharge instructions No data available for this section [facility] Hospital Discharge instructions Additional Instructions Remove packing/have packing removed in 48 hours. Do not leave in longer. Continue vancomycin through your peripheral IV.[facility] Work Phone: Progress note No data available for this section [facility] Reason for referral (narrative)No reason for referral information [facility] Work Phone: Summary Purpose Family History No Family History Records Found Advance Directives No Advanced Directives Records Found Advance Directive Response Recorded Date/ Time Name of Medical Power of Director Of Curriculum And Instruction casey laureano February 06, 2024 3:49pm Living Will Yes February 06, 2024 3: 49pm Power of Director Of Curriculum And Instruction Yes February 06, 2024 3:49pm Advance Directive Response Recorded Date/ Time Do you have a Healthcare Power of Director Of Curriculum And Instruction? No June 28, 2025 8:30am Chief Complaint and Reason for Visit Chief Complaint LEFT FIBULA Room 1 LABWORK Reason for Visit Closed fracture of l eft distal fibula Left ankle pain Chief Complaint LEFT FIBULA Room 1 LABWORK PENITENTIARY LAB WORK Reason for Visit Closed fracture of l eft distal fibula Left ankle pain Chief Complaint LABWORK PENITENTIARY LAB WORK PENITENTIARY LAB WORK Chief Complaint PENITENTIARY LAB WOR K wound Chief Complaint Admit Date PENITENTIARY LAB WORK September 14 5:00am PENITENTIARY LAB WORK October 10, 2024 7:30pm PENITENTIARY LAB WORK December 14, 2024 5 :00am LABWORK December 16, 2024 6:1 2am PENITENTIARY LAB WORK January 02, 2025 7 :30pm Chief Complaint Admit Date PENITENTIARY LAB WORK September 14 5:00am PENITENTIARY LAB WORK October 10, 2024 7:30pm PENITENTIARY LAB WORK December 14, 2024 5 :00am LABWORK December 16, 2024 6:1 2am PENITENTIARY LAB WORK January 02, 2025 7 :30pm LABWORK January 09, 2025 12:4 0pm Chief Complaint Admit Date PENITENTIARY LAB WORK September 14 5:00am PENITENTIARY LAB WORK October 10, 2024 7:30pm PENITENTIARY LAB WORK December 14, 2024 5 :00am LABWORK December 16, 2024 6:1 2am LABWORK December 26, 2024 7:0 8am PENITENTIARY LAB WORK January 02, 2025 7 :30pm LABWORK January 09, 2025 12:4 0pm Chief Complaint Admit Date PENITENTIARY LAB WORK October 10, 2024 7:30pm PENITENTIARY LAB WORK December 14, 2024 5 :00am LABWORK December 16, 2024 6:1 2am LABWORK December 26, 2024 7:0 8am PENITENTIARY LAB WORK January 02, 2025 7 :30pm LABWORK January 09, 2025 12:4 0pm PENITENTIARY LAB WORK January 23, 2025 1 1:30pm Chief Complaint Admit Date PENITENTIARY LAB WORK December 14, 2024 5 :00am LABWORK December 16, 2024 6:1 2am LABWORK December 26, 2024 7:0 8am PENITENTIARY LAB WORK January 02, 2025 7 :30pm LABWORK January 09, 2025 12:4 0pm PENITENTIARY LAB WORK January 23, 2025 1 1:30pm PENITENTIARY LAB WORK February 07, 2025 3:30 am Chief Complaint Admit Date PENITENTIARY LAB WORK December 14, 2024 5 :00am LABWORK December 16, 2024 6:1 2am LABWORK December 26, 2024 7:0 8am PENITENTIARY LAB WORK January 02, 2025 7 :30pm LABWORK January 09, 2025 12:4 0pm PENITENTIARY LAB WORK January 23, 2025 1 1:30pm PENITENTIARY LAB WORK February 07, 2025 3:30 am PENITENTIARY LAB WORK March 02, 2025 4:3 0am PENITENTIARY LAB WORK March 15, 2025 4: 00am KIDNEY STONES March 31, 2025 7:51 am Chief Complaint Admit Date PENITENTIARY LAB WORK January 23, 2025 1 1:30pm PENITENTIARY LAB WORK February 07, 2025 3:30 am PENITENTIARY LAB WORK March 02, 2025 4:3 0am PENITENTIARY LAB WORK March 15, 2025 4: 00am PENITENTIARY LAB WORK March 16, 2025 5: 00am KIDNEY STONES March 31, 2025 7:[address] follow up May 17, 2025 9: 40am Reason for Visit Admit Date Kidney stones May 17, 2025 9: 40am UTI (urinary tract infection) May 9:40am Chief Complaint Admit Date PENITENTIARY LAB WORK January 23, 2025 1 1:30pm PENITENTIARY LAB WORK February 07, 2025 3:30 am PENITENTIARY LAB WORK March 02, 2025 4:3 0am PENITENTIARY LAB WORK March 15, 2025 4: 00am PENITENTIARY LAB WORK March 16, 2025 5: 00am [...] HTN (hypertension) May 17, 2025 9: 40am Chief Complaint Admit Date PENITENTIARY LAB WORK March 15, 2025 4: 00am PENITENTIARY LAB WORK March 16, 2025 5: 00am KIDNEY STONES March 31, 2025 7:[address] follow up May 17, 2025 9: 40am kidney stone May 17, 2025 10 :31am PENITENTIARY LAB WORK June 01, 2025 5:00am PENITENTIARY LAB WORK June 15 5:00am PENITENTIARY LAB WORK June 26 4:00am Pre-op Urine C&S/sign consent June 30, 2025 10:09am Reason for Visit Admit Date Flank pain May 17, 2025 9: 40am Staghorn calculus May 17, 2025 9: 40am Uncontrolled type 2 diabetes mellitus [facility] 2024 9:40am UTI (urinary tract infection) May 9:40am HTN (hypertension) May 17, 2025 9: 40am UTI (urinary tract infection) June 30, 2025 10:09am Chief Complaint Admit Date PENITENTIARY LAB WORK March 15, 2025 4: 00am PENITENTIARY LAB WORK March 16, 2025 5: 00am KIDNEY STONES March 31, 2025 7:[address] follow up May 17, 2025 9: 40am kidney stone May 17, 2025 10 :31am PENITENTIARY LAB WORK June 01, 2025 5:00am PENITENTIARY LAB WORK June 15 5:00am PENITENTIARY LAB WORK June 26 4:00am Pre-op Urine C&S/sign consent June 30, 2025 10:09am Right ESWL- Cysto, Right stent insertion July 06, 2025 10:41am Right ESWL- Cysto, Right stent insertion July 06, 2025 12:11pm Reason for Visit Admit Date Flank pain May 17, 2025 9: 40am Staghorn calculus May 17, 2025 9: 40am Uncontrolled type 2 diabetes mellitus [facility] 2024 9:40am UTI (urinary tract infection) May 9:40am HTN (hypertension) May 17, 2025 9: 40am Flank pain June 30, 2025 10:09am Staghorn calculus June 30, 2025 10:09am Uncontrolled type 2 diabetes mellitus Se ptember 2024 10:09am UTI (urinary tract infection) June 30, 2025 10:09am HTN (hypertension) June 30, 2025 10:09am Reason for Referral Specialty Diagnoses / Procedures Referred By Edson madison Referred To Contact Physical Therapy Diagnoses Closed fracture of distal end of left fibula, unspecified fracture morphology, initial encounter Procedures [place] OFFICE/OUTPATIENT NEW HIGH MDM 60 MINUTES Tete Trevino PA [address] [address] Referral ID Status Reason Start Date Expiration Date Visits Requested Visits Authorized [id number] Pending Review Eval and Treat 10/14/2023 04/11/2024 99 99 Additional Source Comments Care Team (unrecognized sect ion and content) Team Status: Active Member Role Status Dates Dr. Joaquin Thomas MD Family Provider Active Laci Brewer SPECIAL EVENTS DIRECTOR, SPECIAL EVENTS DIRECTOR-C Primary Care Provider Active Team Status: Inactive Member Role Status Dates Laci Brewer SPECIAL EVENTS DIRECTOR, SPECIAL EVENTS DIRECTOR-C Primary Care Provider, Referring Provider Active Prieto Meade MD Attending Provider Active Team Status: Inactive Member Role Status Dates Laci Brewer SPECIAL EVENTS DIRECTOR, SPECIAL EVENTS DIRECTOR-C Primary Care Provider Active Dr. Shlomo Umana MD Attending Provider Active Team Status: Inactive Member Role Status Dates Laci Brewer SPECIAL EVENTS DIRECTOR, SPECIAL EVENTS DIRECTOR-C Primary Care Provider Active Balwinder MARSHALL MD Attending Provider Active Healthcare Economics Consultant Relationship Specialty Start Date End Date Balwinder Alves MD [address] [place] [phone] PCP - General Family Medicine 10/14/23 Healthcare Economics Consultant Relationship Specialty Start Date End Date Balwinder Alves MD [address] [place] [phone] PCP - General Family Medicine 10/14/23 Healthcare Economics Consultant Relationship Specialty Start Date End Date Balwinder Alves MD [address] [place] [phone] PCP - General Family Medicine 10/14/23 Team Status: Inactive Member Role Status Dates Laci Brewer SPECIAL EVENTS DIRECTOR, SPECIAL EVENTS DIRECTOR-C Primary Care Provider Active Balwinder MARSHALL [...] 2025 Team Status: Active Member Role/Relationship Status Mame MARSHALL MD Primary [...] Provider Active Start: March 02, 2025 Balwinder MASRHALL MD Attending Provider Active Start: March 02, [...] 2025 End: May 17, 2025 Team Status: Active Member Role/Relationship Status Dates Dr. Balwinder Alves MD Primary care physician Active Team Status: Active Member Role/Relationship Status Dates Balwinder MARSHALL MD Primary care physician Active Start: March 15, 2025 Balwinder MARSHALL MD Attending physician Active Start: March 15, 2025 Balwinder MARSHLAL MD Referring Provider Active Start: March 15, 2025 Team Status: Active Member Role/Relationship Status Dates Balwinder MARSHALL MD Primary care physician Active Start: March 16, 2025 Balwinder MARSHALL MD Attending physician Active Start: March 16, 2025 Team Status: Inactive Member Role/Relationship Status Dates Dr. oDrota James MD Attending physician Active Start: March 31, 2025 End: March 31, 2025 Dr. Dorota James MD Referring Provider Active Start: March 31, 2025 End: March 31, 2025 Dr. Balwinder Alves MD Primary care physician Active Start: March 31, 2025 End: March 31, 2025 Team Status: Inactive Member Role/Relationship Status Dates Dr. Balwinder Alves MD Primary care physician Active Start: April 04, 2025 Dr. Dorota James MD Attending physician Active Start: April 04, 2025 Team Status: Inactive Member Role/Relationship Status Dates Dr. Balwinder Alves MD Primary care physician Active Start: May 17, 2025 End: May 17, 2025 Dr. Balwinder Alves MD Referring Provider Active Start: May 17, 2025 End: May 17, 2025 Dr. Dorota James MD Attending physician Active Start: May 17, 2025 End: May 17, 2025 Team Status: Inactive Member Role/Relationship Status Dates Dr. Dorota James MD Attending physician Active Start: May 17, 2025 End: May 17, 2025 Dr. Dorota James MD Referring Provider Active Start: May 17, 2025 End: May 17, 2025 Dr. Balwinder Alves MD Primary care physician Active Start: May 17, 2025 End: May 17, 2025 Team Status: Active Member Role/Relationship Status Dates Dr. Balwinder Alves MD Primary care physician Active Start: June 01, 2025 Balwinder MARSHALL MD Attending physician Active Start: June 01, 2025 Team Status: Active Member Role/Relationship Status Dates Dr. Balwinder Alves MD Primary care physician Active Start: June 15, 2025 Balwinder MARSHALL MD Attending physician Active Start: June 15, 2025 Team Status: Active Member Role/Relationship Status Dates Balwinder MARSHALL MD Primary care physician Active Start: June 26, 2025 Balwinder MARSHALL MD Attending physician Active Start: June 26, 2025 Balwinder MARSHALL MD Referring Provider Active Start: June 26, 2025 Team Status: Inactive Member Role/Relationship Status Dates Balwinder MARSHALL MD Primary care physician Active Start: June 30, 2025 End: June 30, 2025 Balwinder MARSHALL MD Referring Provider Active Start: June 30, 2025 End: June 30, 2025 Dr. Dorota James MD Attending physician Active Start: June 30, 2025 End: June 30, 2025 Team Status: Active Member Role/Relationship Status Dates Balwinder MARSHALL MD Primary care physician Active Start: July 03, 2025 Balwinder MARSHALL MD Attending physician Active Start: July 03, 2025 Team Status: Inactive Member Role/Relationship Status Dates Dr. Dorota James MD Attending physician Active Start: July 06, 2025 End: July 06, 2025 Dr. Dorota James MD Referring Provider Active Start: July 06, 2025 End: July 06, 2025 Dr. Balwinder Alves MD Primary care physician Active Start: July 06, 2025 End: July 06, 2025 Team Status: Active Member Role/Relationship Status Dates Dr. Dorota James MD Attending physician Active Start: July 06, 2025 Dr. Dorota James MD Referring Provider Active Start: July 06, 2025 Dr. Dorota James MD Nurse Practitioner Active Start: July 06, 2025 Dr. Balwinder Alves MD Primary care physician Active Start: July 06, 2025 INFORMATION SOURCE (unrecogn ized section and content) DATE CREATED AUTHOR 07/23/2023 [employer] ([place]) DATE CREATED AUTHOR AUTHOR'S ORGANIZ ATION 12/10/2023 [facility] DATE CREATED AUTHOR AUTHOR'S ORGANIZ ATION 07/14/2025 [facility] Reason for Visit (unrecogniz ed section and [...] BE BASED ON THE PRIMARY CLINICAL RECORDS. [employer] provides no warranty or guarantee of the accuracy or completeness of information in this document.
[2025-07-24 08:19] LABS: Hematocrit 34.0 % (37-47); Hemoglobin 10.5 g/dL (12.0-15.0); Mean Corp Hgb Conc 30.9 g/dL (32-36); Mean Corpuscular Volume 94.7 fL (81-99); Mean Platelet Vol. 8.5 fl (6.2-12.0); Platelet Count 231 K/mm3 (150-450); RBC Distribution Width CV 14.6 % (11.6-14.6); RBC Distribution Width SD 50.7 fl (35.1-43.9); Red Blood Count 3.59 M/mm3 (4.2-5.4); White Blood Count 6.8 K/mm3 (4.4-11.0)
[2025-07-24 08:32] LABS: AST(SGOT) 9 U/L (<=31); Alanine Aminotransfer ALT/SGPT < 5 U/L (<=34); Albumin, Serum 3.3 g/dL (3.4-4.8); Alkaline Phosphatase 68 U/L (35-104); Anion Gap 8 (5-15); BUN 6 mg/dL (4-19); BUN/Creat Ratio 9.0 RATIO (10-20); Bilirubin, Direct 0.13 mg/dL (0.00-0.30); Calcium,Total 9.1 mg/dL (7.6-11.0); Carbon Dioxide 29.9 mmol/L (21.0-32.0); Chloride 101 mmol/L (98-108); Globulin 2.8 g/dL (2.2-4.2); Glucose 176 mg/dL (70-99); Potassium 4.4 mmol/L (3.3-5.1)
== END ==
LOC: OLS.WCC 05:00
PROVIDERS: PCP Family Medicine; Visit Provider Family Medicine
DX: Z79.899 Other long term (current) drug therapy (principal)
CPT/HCPCS: 36415; 80048; 80076; 85027

== ENCOUNTER → 2025-07-31 | Outpatient (CLI) | payer MEDICARE, MEDICAID, SELFPAY ==
--- NOTE | 2025-07-31 09:53 | CT_ITS ---
PROCEDURE: ABDOMEN/PELVIS WITHOUT CONT 07/31/2025 REASON FOR EXAM: KIDNEY STONES, POST ESWL SURGICAL PLANNING Right ureteral stent. TECHNIQUE: Procedure Code: CTABDPEL Modality: CT Procedure: ABDOMEN/PELVIS WITHOUT CONT Noncontrast technique limits evaluation of the abdominal and pelvic viscera. Coronal and Sagittal reconstruction series were provided. One or more dose reduction techniques were used (e.g., Automated exposure control, adjustment of the mA and/or kV according to patient size, use of iterative reconstruction technique). RADIATION DOSE SUMMARY: CTDlvol: 31.76 mGy DLP: 1650.43 mGycm COMPARISON: Prior study dated March 31, 2025. FINDINGS: Lung bases: Mild increased markings at the lung bases suggestive of linear atelectasis and/or scarring. Coronary artery calcification. Liver: Normal size. No obvious mass. Gallbladder: Surgically absent. Spleen: Normal size. Pancreas: Diffuse fatty atrophy. Adrenals: Unremarkable Kidneys: A right-sided double-J stent catheter is seen with the tip in the inferior pole calyx. The distal tip is seen within the urinary bladder. No evidence of hydronephrosis. Bladder: Unremarkable Reproductive Organs: Prior hysterectomy. Adnexal regions are unremarkable. Bowel: Colonic diverticulosis without diverticulitis. Appendix: The appendix is not identified. There is no inflammatory process identified in the right lower quadrant to suggest appendicitis. Lymph nodes: Unremarkable. Vasculature: Mild diffuse atherosclerotic calcifications are noted. Peritoneum / Retroperitoneum: Unremarkable Bones: Degenerative changes of the spine. CT/Abdomen/Pelvis without Cont IMPRESSION: Status post removal of the right-sided staghorn calculus. A right-sided double -J stent catheter is seen. No evidence of hydronephrosis. Reading Location: [id number]
== END | disposition home or self-care (01) ==
LOC: CT 09:50
PROVIDERS: PCP Family Medicine; Referring Provider Urology; Visit Provider Urology
DX: N20.0 Calculus of kidney (principal)
CPT/HCPCS: 74176

== ENCOUNTER → 2025-08-22 03:45 | Outpatient (REF) | payer MEDICARE, MEDICAID, SELFPAY ==
[2025-08-22 08:31] LABS: Glucose, Dipstick Normal (Normal); Ketone-Dipstick Negative (Negative); Leukocyte Esterase-Dipstick 500 /ul (Negative); Nitrite-Dipstick Positive (Negative); Occult Blood-Urine 150 /ul (Negative); Protein-Dipstick 15 mg/dl (Negative); Specific Gravity, Urine 1.010 (1.002-1.030); Urine Bilirubin Dipstick Negative (Negative)
--- OUTSIDE RECORDS SUMMARY | 2025-08-22 08:34 | XMS RPT_ITS | CCD ---
Author Organization [facility] Inform ion [facility] Care Team Providers Care Yard Worker Name Role Phone OSMAN PERDUE, LACI Primary Care Physician [phone] OSMAN PERDUE, LACI Primary Care Unavailabl e OSMAN PERDUE, LACI Attending Unavailabl e OSMAN MANDATE RETAIL SERVICE MERCHANDISER-SENIOR HOUSEKEEPER, LACI Primary Care Unavailabl e OSMAN MANDATE RETAIL SERVICE MERCHANDISER-SENIOR HOUSEKEEPER, LACI Attending Unavailabl e JULY PERDUE, ROHAN Romero Attending Unavaila ble OSMAN PERDUE, LACI Primary Care UnavailJOSE FRANCISCO Matos DO Referring Unavailable JOSE ROBERTO DO Consulting Unavailable JULY BENTON-RODRIGO, ROHAN Romero Admitting Unavaila ble Unavailable Primary Care Provider Unavailluisa Brewer TANK STORAGE SUPERVISOR, TANK STORAGE SUPERVISOR-C Laci Primary Care Provider [phone] Osman TANK STORAGE SUPERVISOR, TANK STORAGE SUPERVISOR-C Laci Referring Provider [id number] MD Prieto Meade Attending Provider Dr. Shlomo Umana Attending Provider Balwinder Alves MD Primary Care Provider [id number] [phone] ZANDER UREÑA Referring Unavailable TETE TREVINO Attending [...] Provider UnavailBalwinder Christensen MD Attending Provider Unavailable Nelson OLVERA, Balwinder Dominguez Referring Provider Unavailable Dr. Droota James MD Attending Provider Erika OLVERA, Dr. Raya Referring Provider Dr. Balwinder Alves MD Primary Care Provider Nelson OLVERA, Balwinder Dominguez Primary Care Provider Unavaila jerri Alves MD, Balwinder Dominguez Attending Provider Unavailable Nelson OLVERA, Balwinder Dominguez Referring Provider Unavailable Dr. Dorota James MD Attending Provider Dr. Dorota James MD Referring Provider Nelson OLVERA, Dr. Balwinder Dominguez Referring Provider Nelson OLVERA, Balwinder Dominguez Primary Care Physician Unavail herman Alves MD, Balwinder Dominguez Attending Physician Unavailluisa Alves MD, Balwinder Dominguez Referring Provider Unavailable Dr. Dorota James MD Attending Physician Nelson OLVERA, Dr. Balwinder Dominguez Primary Care Physician Erika OLVERA, Dr. Raya Nurse Practitioner Dr. Balwinder Alves MD Primary Care Physician Erika OLVERA, Dr. Raya Attending Physician Erika OLVERA, Dr. Raya Referring Provider Balwinder Alves MD Attending Physician UnavailBalwinder Greenfield MD Primary Care Physician Unavail Balwinder Vogel MD Referring Provider Unavailable Alves OLS, Balwinder K Primary Care [...] Unavailable Alves OLS, Balwinder K Referring Unavailable Alves, Balwinder K Primary Care Unavailable Dorota James Referring Unavailable Dorota James Attending Unavailable Alves, Balwinder K Primary Care Unavailable Dorota James Referring Unavailable Dorota James Attending Unavailable Alves, Balwinder K Attending Unavailable Alves OLS, Balwinder K Primary Care Unavailable Alves, Balwinder K Primary Care Unavailable Alves OLS, Balwinder K Attending Unavailable Alves, Balwinder K Primary Care Unavailable Wyneski, Dorota Referring Unavailable Wyneski, Dorota Attending Unavailable Alves OLS, Balwinder K Attending [...] Unavailable Alves, Balwinder K Primary Care Unavailable Wyneski, Dorota Consulting Unavailable Wyneski, Dorota Referring Unavailable Wyneski, Dorota Attending Unavailable Wyneski, Dorota Attending Unavailable Alves OLS, Balwinder K Primary Care Unavailable Alves OLS, Balwinder K Referring Unavailable Alves, Balwinder K Primary Care Unavailable Alves, Balwinder K Referring Unavailable Wyneski, Dorota Attending Unavailable Alves OLS, Balwinder K Attending Unavailable Alves OLS, Balwinder K Primary Care Unavailable Alves OLS, Balwinder K Referring Unavailable Alves, Balwinder K Primary Care Unavailable Alves OLS, Balwinder K Attending Unavailable Alves OLS, Balwinder K Primary Care Unavailable Alves OLS, Balwinder K Attending Unavailable Alves, Balwinder K Primary Care Unavailable Alves, Balwinder K Referring Unavailable Wyneski, Dorota Attending Unavailable Alves OLS, Balwinder K Primary [...] / oxyCODONE; Translations: [acetaminophen-oxyco done] Drug Allergy [facility] (7 sources) Adhesive Tape Allergy to substance 07-05-20 REDNESS & BLISTERS [facility] (4 sources) Amoxicillin / Clavulanate; Translations: [amoxicillin-clavula kellie] Drug Allergy Rash [facility] (7 sources) Aspirin; Translations: [aspirin] Drug Allergy 06-28-20 25 Unknown, PT UNSURE OF REACTION [facility] (20 sources) Ciprofloxacin; Translations: [ciprofloxacin] Drug Allergy 07-05-20 Rash [facility] (4 sources) dapagliflozin; Translations: [dapagliflozin] Drug Allergy Rash [facility] (10 sources) Ibuprofen; Translations: [ibuprofen] Drug Allergy 07-05-20 23 PT UNSURE OF REACTION [facility] (20 sources) Latex; Translations: [latex] Drug allergy 07-05-20 23 BLISTERS & REDNESS, blisters, Other [facility] Comment on above: BLISTERS (20 sources) Sulfamethoxazole; Translations: [sulfamethoxazole] Drug Allergy 11-01-19 21 Hives, Shortness of breath [facility] (9 sources) Cephalexin; Translations: [cephalexin] Drug Allergy 07-05-20 23 Hives [facility] [place] Comment on above: Immediate rash / hiv es; patient seen in ER after last administration of Keflex (18 sources) Adhesive Tape; Translations: [adhesive tape] Allergy to substance 07-16-20 23 blister [facility] (20 sources) Trimethoprim Drug Allergy 11-01-19 21 Shortness of breath [facility] (3 sources) augmenten Allergy to substance 07-16-20 23 [facility] (4 sources) Aluminum aspirin Drug Allergy 07-05-20 23 Unknown [facility] (4 sources) dapagliflozin Drug Allergy 07-05-20 23 Rash [facility] (4 sources) Amoxicillin-Pot Clavulanate Drug Allergy 07-05-20 23 Rash [facility] (4 sources) Diphenhydramine-Acet aminophen Drug Allergy 07-05-20 23 [facility] (3 sources) Acetaminophen / oxyCODONE Drug Allergy 10-14-19 24 [facility] (3 sources) Sulfamethoxazole Allergy to substance 11-01-19 21 [facility] (3 sources) Wound Dressing Adhesive Drug Allergy 07-16-20 [facility] (14 sources) Amoxicillin Drug Allergy 02-06-20 Rash [facility] (14 sources) Clavulanate Drug Allergy 02-06-20 Rash [facility] (14 sources) Vancomycin Drug Allergy 02-06-20 red man syndrome [facility] (1 source) Acetaminophen Drug Allergy 06-28-20 PT UNSURE OF REACTION [facility] (3 sources) dapagliflozin Drug Allergy 06-28-20 PT UNSURE OF REACTION [facility] (3 sources) diphenhydrAMINE Drug Allergy 06-28-20 PT UNSURE OF REACTION [facility] (3 sources) phenyltoloxamine Drug Allergy 06-28-20 PT UNSURE OF REACTION [facility] (1 source) Acetaminophen Drug Allergy 06-28-20 [facility] (1 source) Amoxicillin Drug Allergy 08-11-20 [facility] (1 source) Aspirin Drug Allergy 08-11-20 [facility] (1 source) Cephalexin Drug Allergy 08-11-20 [facility] (1 source) Ciprofloxacin Drug Allergy 08-11-20 [facility] (1 source) Clavulanate Drug Allergy 08-11-20 [facility] (1 source) dapagliflozin Drug Allergy 08-11-20 [facility] (1 source) diphenhydrAMINE Drug Allergy 08-11-20 [facility] (1 source) Ibuprofen Drug Allergy 08-11-20 [facility] (1 source) phenyltoloxamine Drug Allergy 08-11-20 [facility] (1 source) Sulfamethoxazole Drug Allergy 08-11-20 [facility] (1 source) Trimethoprim Drug Allergy 08-11-20 [facility] (1 source) Vancomycin Drug Allergy 07-06-20 [facility] [...] arm, # 9 mL, 0 Refill(s), Pharmacy: [facility]/pharmacy #[id number], Type 2 diabetes mellitus, 168.91, cm, 02/18/23 11:25:00 EDT, Height, kg, 02/18/23 11:25:00 EDT, Dosing Weight Start Date: 05/19/23 Stop Date: 08/17/23 Status: Ordered acetaminophen 500 mg oral tablet (16 sources) Start: 05-17-2025 take 2 tablets by mouth three times daily Start: 05-17-2025 take 1 tablet by ann every six hours as needed Acetaminophen (Tylenol Extra Strength) 500 mg tablet Active 500 mg PO EVERY 6 HOURS as needed May 17, 2025 12:00am Start: 07-22-2023 [facility] Pain Relief Extra St 500 [...] 1:00am ascorbic acid 500 mg oral capsule (5 sources) Vitamin C Start: 05-17-2025 take [address] [facility] once daily Boric Acid (Azo Boric Acid) 600 mg suppository (5 sources) Start: 05-17-2025 Start: 05-17-2025 Boric Acid [...] qDay, # 180 tab(s), 3 Refill(s), Pharmacy: [facility]/pharmacy #[id number], 167.6, cm, 11/20/22 11:29:00 EST, Height, kg, 11/20/22 11:29:00 EST, Dosing Weight Start Date: 11/20/22 Status: Ordered Start: 11-13-2021 calcium (as ca rbonate) 600 mg oral tablet Dose : 1,200 mg = 2 tab(s), Oral, qDay, # 180 tab(s), 3 Refill(s), Pharmacy: [facility]/pharmacy #[id number], 167.6, cm, 11/05/21 9:58:00 EST, Height, kg, 11/05/21 9:58:00 EST, Dosing Weight Start Date: 11/13/21 Status: Ordered cholecalciferol 0.05 mg oral tablet (13 sources) Vitamin D Start: 05-17-2025 take 1 [...] Active colestipol hydrochloride 1000 mg oral tablet (5 sources) Bile Acid Sequestrant Start: 05-17-2025 D-Mannose (5 sources) Start: 05-17-2025 take 1 capsule by mouth twice daily Start: 05-17-2025 take 1 capsule by mouth once D -Mannose 500 mg capsule Active mg PO May 17, 2025 12:00am diclofenac sodium 0.01 mg/mg topical gel (5 sources) Nonsteroidal Anti-inflammatory Drug Start: 05-17-2025 apply 2 g topically twice daily Start: 05-17-2025 Diclofenac Sod ium 1 % gel Active TOPICAL May 17, 2025 12:00am Dulaglutide (3 sources) GLP-1 Receptor Agonist Start: 05-29-2025 DULoxetine [...] TID, # 270 cap(s), 0 Refill(s), Pharmacy: [facility]/pharmacy #[id number], Diabetic neuropathy, 168.91, cm, 02/18/23 11:25:00 EDT, Height, 127.7, kg, 02/18/23 11:25:00 EDT, Dosing Weight Start Date: 06/10/23 Stop Date: 09/08/23 Status: Ordered Start: 11-20-2022 End: 02-18-2023 gabapentin 400 mg oral capsu le Dose : 400 mg = 1 cap(s), Oral, TID, # 270 cap(s), 0 Refill(s), Pharmacy: [facility]/pharmacy #[id number], Diabetic neuropathy, 167.6, cm, 11/20/22 11:29:00 EST, Height, 134, kg, 11/20/22 11:29:00 EST, Dosing Weight Start Date: 11/20/22 Stop Date: 02/18/23 Status: Ordered Start: 10-25-2021 End: 01-23-2022 gabapentin 400 mg oral capsu le Dose : 400 mg = 1 cap(s), Oral, TID, dose change, # 270 cap(s), 0 Refill(s), [id number], Diabetic neuropathy, 166.37, cm, 07/24/21 11:31:00 EDT, Height, 134.5, kg, 07/24/21 11:31:00 EDT, Dosing Weight Start Date: 10/25/21 Stop Date: 01/23/22 Status: Ordered Start: 04-23-2021 End: 07-22-2021 gabapentin 400 mg oral capsu le Dose : 400 mg = 1 cap(s), Oral, TID, dose change, # 270 cap(s), 0 Refill(s), [id number], Diabetic neuropathy, 167.6, cm, 04/23/21 11:30:00 [...] E11.9, # 4 EA, 3 Refill(s), Pharmacy: [facility]/pharmacy #[id number], Diabetes, 166.37, cm, 07/24/21 11:31:00 EDT, Height, kg, 07/24/21 11:31:00 EDT, Dosing Weight Start Date: 07/24/21 Stop Date: 07/19/22 Status: Ordered Start: 05-14-2021 inject 1 dose by sub cutaneous injection twice daily Lantus Solostar Pen 100 units/mL 3 mL Pen Dose : 30 unit(s) =, Subcutaneous, BID, EA=BOX OF 5 PENS diabetes E11.9, # 4 EA, 3 Refill(s), Pharmacy: [facility]/pharmacy #[id number], 167.6, cm, 04/23/21 11:30:00 EDT, Height, kg, 04/23/21 11:30:00 EDT, Dosing Weight Start Date: 05/14/21 Status: Ordered loperamide hydrochloride 2 mg oral capsule (5 sources) Opioid Agonist Start: 05-17-2025 take 1 capsule by mouth every six hours as needed for diarrhea losartan potassium 100 mg oral tablet (20 sources) Angiotensin 2 Receptor Ysabel Start: 02-18-2023 losartan 100 mg oral tablet Dose : 100 mg = 1 tab(s), Oral, Daily, # 90 tab(s), 1 Refill(s), Pharmacy: [facility]/pharmacy #[id number], Hypertension, 168.91, cm, 02/18/23 11:25:00 EDT, Height, kg, 02/18/23 11:25:00 EDT, Dosing Weight Start Date: 02/18/23 Status: Ordered Start: 11-01-2020 losartan 100 m g oral tablet Dose : 100 mg = 1 tab(s), Oral, Daily, # 90 tab(s), 3 Refill(s), Pharmacy: [facility]/pharmacy #[id number], Hypertension, 167.6, cm, 02/04/22 11:02:00 EDT, Height, kg, 02/04/22 11:02:00 EDT, Dosing Weight Start Date: 02/25/22 Status: Ordered Start: 11-01-2020 Losartan 100 M G tablet Active DAILY November 01, 2020 1:00am metFORMIN hydrochloride 1000 mg oral tablet (20 sources) Biguanide Start: 07-24-2020 take 1 tablet by mouth twice daily methenamine hippurate 1000 mg oral tablet (5 sources) Start: 05-17-2025 naproxen 250 mg oral tablet (1 source) Nonsteroidal Anti-inflammatory Drug Start: 07-04-2023 End: 07-14-2023 naproxen 250 mg oral tablet Dose : 250 mg = 1 tab(s), Oral, BID, X 10 day(s), # 20 tab(s), 0 Refill(s), 07/14/23 1:08:00 PM EDT, [id number], 160, cm, 06/30/23 18:36:00 EDT, Height, kg, 06/30/23 18:36:00 EDT, Dosing Weight Start Date: 07/04/23 Stop Date: 07/14/23 Status: Ordered oxybutynin chloride 5 mg oral tablet (5 sources) Cholinergic Muscarinic Antagonist Start: 05-17-2025 take 1 tablet by mouth at bedtime oxyCODONE hydrochloride 5 mg oral tablet (5 sources) Opioid Agonist Start: 05-17-2025 take 1 tablet by mouth every six hours as needed for pain Start: 05-17-2025 take 1 tablet by ann three times daily as needed Oxycodone 5 [...] E11.9, # 2 EA, 0 Refill(s), Pharmacy: [facility]/pharmacy #[id number], 167.6, cm, 04/23/21 11:30:00 EDT, Height, 133.2, kg, 04/23/21 11:30:00 EDT, Dosi... Start Date: 04/23/21 Status: Ordered phenazopyridine hydrochloride 200 mg oral tablet (2 sources) Start: 07-06-2025 take 1 tablet by mouth three times daily as needed for pain 0.25 mg, 0.5 mg dose 1.5 ml semaglutide 1.34 mg/ml pen injector (1 source) Start: 11-20-2022 End: 02-18-2023 Ozempic 2 mg/1.5 mL (0.25 mg or 0.5 mg dose) subcutaneous solution 1 mg, Subcutaneous, qWeek, 3 boxes, 12 needles rotate injection sites, # 9 mL, 0 Refill(s), Pharmacy: [facility]/pharmacy #[id number], Diabetes Diabetes mellitus, 167.6, cm, 11/20/22 11:29:00 EST, Height, kg, 11/20/22 11:29:00 EST, Dosing Weight Start Date: 11/20/22 Stop Date: 02/18/23 Status: Ordered simvastatin 5 mg oral tablet (20 sources) HMG-CoA Reductase Inhibitor Start: 07-16-2023 take 1 tablet by mouth at bedtime Start: 08-20-2022 simvastatin 5 mg oral tablet Dose : 5 mg = 1 tab(s), Oral, qHS, # 90 tab(s), 3 Refill(s), Pharmacy: [facility]/pharmacy #[id number], Type 2 diabetes mellitus, 167.6, cm, 08/19/22 12:13:00 EST, Height, kg, 08/19/22 12:13:00 EST, Dosing Weight Start Date: 08/20/22 Status: Ordered Start: 08-28-2021 simvastatin 5 mg oral tablet Dose : 5 mg = 1 tab(s), Oral, qHS, # 90 tab(s), 3 Refill(s), Pharmacy: [facility]/pharmacy #[id number], Type 2 diabetes mellitus, 166.37, cm, 07/24/21 11:31:00 EDT, Height, kg, 07/24/21 11:31:00 EDT, Dosing Weight Start Date: 08/28/21 Status: Ordered traMADol hydrochloride 50 mg oral tablet (2 sources) Opioid Agonist Start: 07-06-2025 take 1 tablet by mouth every eight hours as needed for pain traZODone hydrochloride 100 mg oral tablet (20 sources) Serotonin Reuptake Inhibitor Start: 02-18-2023 traZODone 100 mg oral tablet Dose : 100 mg = 1 tab(s), Oral, qHS, # 90 tab(s), 3 Refill(s), [id number], Insomnia, 168.91, cm, 02/18/23 11:25:00 EDT, Height, kg, 02/18/23 11:25:00 EDT, Dosing Weight Start Date: 02/18/23 Status: Ordered Start: 05-01-2022 traZODone 100 mg oral tablet Dose : 100 mg = 1 tab(s), Oral, qHS, # 90 tab(s), 3 Refill(s), Pharmacy: [facility]/pharmacy #[id number], Insomnia, 167.6, cm, 02/04/22 11:02:00 EDT, Height, kg, 02/04/22 11:02:00 EDT, Dosing Weight Start Date: 05/01/22 Status: Ordered Start: 07-24-2021 traZODone 100 mg oral tablet Dose : 100 mg = 1 tab(s), Oral, qHS, # 90 tab(s), 1 Refill(s), Pharmacy: [facility]/pharmacy #[id number], Insomnia, 166.37, cm, 07/24/21 11:31:00 EDT, Height, kg, 07/24/21 11:31:00 EDT, Dosing Weight Start Date: 07/24/21 Status: Ordered Start: 04-23-2021 traZODone 100 mg oral tablet Dose : 100 mg = 1 tab(s), Oral, qHS, # 90 tab(s), 1 Refill(s), Pharmacy: [facility]/pharmacy #[id number], Insomnia, 167.6, cm, 04/23/21 11:30:00 EDT, [...] Daily, # 90 cap(s), 3 Refill(s), [id number], 166.37, cm, 07/24/21 11:31:00 EDT, Height, kg, 07/24/21 11:31:00 EDT, Dosing Weight Start Date: 09/11/21 Status: Ordered Vitamin D3 400 intl units (1 0 mcg) oral tablet (1 source) Start: 04-23-2021 Vitamin D3 400 intl units (10 mcg) oral tablet Dose : 20 mcg = 2 tab(s), Oral, qDay, # 180 tab(s), 3 Refill(s), Pharmacy: [facility]/pharmacy #[id number], Vitamin D deficiency, 167.6, cm, 04/23/21 11:30:00 EDT, Height, kg, 04/23/21 11:30:00 EDT, Dosing Weight Start Date: 04/23/21 Status: Ordered Vitamin D3 50 mcg (2000 intl units) oral tablet (2 sources) Start: 08-20-2022 Vitamin D3 50 mcg (2000 intl units) oral tablet Dose : 2,000 unit(s) = 1 tab(s), Oral, Daily, dose increase, # 90 tab(s), 3 Refill(s), [id number], Vitamin D deficiency, 167.6, cm, 08/19/22 12:13:00 EST, Height, kg, 08/19/22 12:13:00 EST, Dosing Weight Start Date: 08/20/22 Status: Ordered Completed/Discontinued Medications Medication Drug Class(es) Dates Sig (Normalized) Sig (Original) acetaminophen 325 mg / HYDROcodone bitartrate 5 mg oral tablet (18 sources) Opioid Agonist Start: 07-16-2023 End: 05-17-2025 Hydrocodone-Acetami nophen 5-325 mg tablet Discontinued 1 {tbl} PO AT BEDTIME as needed 0 July 16, 2023 12:00am May 17, 2025 9:58am Start: 07-16-2023 take 1 tablet by ann th at bedtime Hydrocodone-Acetaminophen Active 1 TABLE T PO AT BEDTIME July 16, 2023 12:00am Start: 07-03-2023 End: 07-06-2023 [place] 325- 5 mg oral tablet Dose = [...] pain/diarrhea, # 120 packet(s), 0 Refill(s), Pharmacy: [facility]/pharmacy #[id number], Diarrhea, 167.6, cm, 02/04/22 11:02:00 [...] pain/diarrhea, # 120 packet(s), 0 Refill(s), Pharmacy: [facility]/pharmacy #[id number], Diarrhea, 167.6, cm, 02/04/22 11:02:00 EDT, Height, kg, 02/04/22 11:02:00 EDT, Dosing Weight Start Date: 04/03/22 Stop Date: 07/02/22 Status: Ordered clotrimazole 10 mg/ml topical cream (1 source) Azole Antifungal Start: 07-03-2023 clotrimazole 1% topical cream Apply 1 calos, Topical, BID, 0 Refill(s), Cream, 128 Start Date: 07/03/23 Status: Ordered fenofibrate 145 mg oral tablet (18 sources) Peroxisome Proliferator Receptor alpha Agonist Start: 11-01-2020 End: 07-16-2023 take 1 tablet by mouth once daily Fenofibrate Nanocrystallized 145 MG tablet Discontinued 145 mg PO DAILY November 01, 2020 1:00am July 16, 2023 10:59am menthol 0.0044 mg/mg / zinc oxide 0.206 mg/mg topical ointment (5 sources) Start: 05-17-2025 End: 05-29-2025 Menthol-Zinc Oxide (Calmoseptine) 0.44-20.6 % ointment Discontinued 1 NMA TOPICAL 4 to 6 times per day as needed May 17, 2025 12:00am May 29, 2025 3:48pm Start: 05-17-2025 Menthol-Zinc O xide (Calmoseptine) 0.44-20.6 % ointment Active 1 NMA TOPICAL 4 to 6 times per day as needed May 17, 2025 12:00am SITagliptin 100 mg oral tablet (20 sources) Dipeptidyl Peptidase 4 Inhibitor Start: 11-01-2020 End: 05-29-2025 take 1 tablet by mouth once daily Sitagliptin Phosphate 100 MG tablet Discontinued 100 mg PO DAILY November 01, 2020 1:00am May 29, 2025 3:50pm sodium chloride 0.111 meq/ml nasal spray (5 sources) Start: 05-17-2025 End: 05-29-2025 Sodium Chloride [...] Da te Episodic/Chronic Calculus of urinary tract (17 sources) Kidney stone; Translations: [Calculus of kidney] Onset: 08-08-2025 05-17-2025 Episodic Diabetes mellitus with complications (20 [...] [Hyperlipidemia, unspecified] 05-10-2019 Chronic E Codes: Fall (17 sources) Fall; Translations: [Unspecified fall, initial encounter] [...] Chronic Inflammatory diseases of female pelvic organs (14 sources) Abscess of labia; Translations: [Abscess of vulva] 02-06-2024 Episodic Mood disorders (7 sources) Depressive disorder; Translations: [Major depressive disorder] Onset: 06-30-2023 11-15-2019 Chronic Neoplasms of unspecified nature or uncertain behavior (4 sources) Neoplasm of uncertain behavior of neck 05-15-2020 Episodic Osteoarthritis (4 sources) Osteoarthritis of multiple joints 11-15-2019 Chronic Other aftercare (2 sources) Other ski maker wood (current) drug therapy; Translations: [Other ski maker wood (current) drug therapy] Onset: 08-04-2025 Episodic Other bone disease and musculoskeletal deformities [...] source) Polyneuropathy, unspecified; Translations: [Polyneuropathy, unspecified] Onset: 08-04-2025 Chronic Other non-epithelial cancer of skin (4 sources) Basal cell carcinoma of neck 05-17-2020 Episodic Other non-traumatic joint disorders (17 sources) Ankle pain; Translations: [Pain in left [...] 11-15-2019 Episodic Skin and subcutaneous tissue infections (17 sources) Cellulitis of leg, excluding foot; Translations: [Cellulitis of left lower limb] 11-01-2020 Episodic Transient cerebral ischemia (2 sources) Transient cerebral ischemia 04-06-2019 Chronic Urinary tract infections (17 sources) Urinary tract infectious disease; Translations: [Urinary tract infection, site not specified] Onset: 07-01-2023 Episodic Past or Other Problems Problem Classification Problem Date Documented Da te Episodic/Chronic Abdominal pain (11 sources) Flank pain; Translations: [Unspecified abdominal pain] Onset: 01-12-2025 05-17-2025 Episodic Results Test Name Value Interpretation Reference Range Facility Abdomen/Pelvis without Conto n 07-31-2025 Abdomen/Pelvis without Cont [facility] [address] [place] [address] Abdomen/Pelvis without Cont MR#: [id number] Acct: [id number] Name: GUMARO HUFF Rep #: [id number] : 1945 F 80 From: Douglas ceron MD PCP: Dr. Balwinder Alves MD Status: REG CLI Study: Abdomen/Pelvis without Cont Date of Exam: 07/06 04/28 Exam# [id number] Ordering Dr: Dorota James MD PROCEDURE: ABDOMEN/PELVIS WITHOUT CONT 07/31/2025 REASON FOR EXAM: KIDNEY STONES, POST ESWL SURGICAL PLANNING Right ureteral stent. TECHNIQUE: Procedure Code: CTABDPEL Modality: CT Procedure: ABDOMEN/PELVIS WITHOUT CONT Noncontrast technique limits evaluation of the abdominal and pelvic viscera. Coronal and Sagittal reconstruction series were provided. One or more dose reduction techniques were used (e.g., Automated exposure control, adjustment of the mA and/or kV according to patient size, use of iterative reconstruction technique). RADIATION DOSE SUMMARY: CTDlvol: 31.76 mGy DLP: 1650.43 mGycm COMPARISON: Prior study dated March 31, 2025. FINDINGS: Lung bases: Mild increased markings at the lung bases suggestive of linear atelectasis and/or scarring. Coronary artery calcification. Liver: Normal size. No obvious mass. Gallbladder: Surgically absent. Spleen: Normal size. Pancreas: Diffuse fatty atrophy. Adrenals: Unremarkable Kidneys: A right-sided double-J stent catheter is seen with the tip in the inferior pole calyx. The distal tip is seen within the urinary bladder. No evidence of hydronephrosis. Bladder: Unremarkable Reproductive Organs: Prior hysterectomy. Adnexal regions are unremarkable. Bowel: Colonic diverticulosis without diverticulitis. Appendix: The appendix is not identified. There is no inflammatory process identified in the right lower quadrant to suggest appendicitis. Lymph nodes: Unremarkable. Vasculature: Mild diffuse atherosclerotic calcifications are noted. Peritoneum / Retroperitoneum: Unremarkable Bones: Degenerative changes of the spine. CT/Abdomen/Pelvis without Cont IMPRESSION: Status post removal of the right-sided staghorn calculus. A right-sided double-J stent catheter is seen. No evidence of hydronephrosis. Reading Location: [id number] CC: Dr. Dorota James MD; Dr. Balwinder Alves MD Experimental Machinist: Signed Normal [facility] Anion gap in Serum or Plasma Ordered By: Balwinder Alves on 07-24-2025 Anion gap [Moles/Vol] 8 mmol/L - [facility] BUN/creatinine ratioOrdered By: Balwinder Alves on 07-24-2025 Urea nitrogen/Creatinine [Mass ratio] 9.0 mg/mg Low 07-24 [facility] Basic Metabolic Profile (BMP )on 07-24-2025 BUN/CRE 9.0 RATIO Low 07-24 [facility] Comment on above: Order Comment: 102.2 Performed By: #### M , #### [facility] [address] [place], [address] Calcium [Mass/Vol] 9.1 mg/dL Normal 7.6-11.0 [facility] Comment on above: Order Comment: 102.2 Performed By: #### M , #### [facility] [address] [place], [address] Chloride [Moles/Vol] 101 mmol/L Normal 98-108 [facility] Comment on above: Order Comment: 102.2 Performed By: #### M 100, #### [facility] [address] [place], [address] CO2 [Moles/Vol] 29.9 mmol/L Normal 21.0-32.0 [facility] Comment on above: Order Comment: 102.2 Performed By: #### M 100, #### [facility] [address] [place], [address] Creatinine [Mass/Vol] 0.68 mg/dL Low 0.70-1.20 [facility] Comment on above: Order Comment: 102.2 Performed By: #### M , #### [facility] [address] [place], [address] GAP 8 Normal 5-15 [facility] Comment on above: Order Comment: 102.2 Performed By: #### M , #### [facility] [address] [place], [address] GFR/1.73 sq M.predicted among non-blacks MDRD (S/P/Bld) [Vol rate/Area] 87 mL/min/{1.73_m2} Normal >60 [facility] Comment on above: Order Comment: 102.2 Result Comment: mL/m in/1.73m2 CKD-EPI Creatinine Equation (2020) Performed By: #### M , #### [facility] [address] [place], [address] Glucose [Mass/Vol] 176 mg/dL High 70-99 [facility] Comment on above: Order Comment: 102.2 Performed By: #### M , #### [facility] [address] [place], [address] Potassium [Moles/Vol] 4.4 mmol/L Normal 3.3-5.1 [facility] Comment on above: Order Comment: 102.2 Performed By: #### M , L4 #### [facility] [address] [place], [address] Sodium [Moles/Vol] 139 mmol/L Normal 133-145 [facility] Comment on above: Order Comment: 102.2 Performed By: #### M 0, #### [facility] [address] [place], [address] Urea nitrogen [Mass/Vol] 6 mg/dL Normal 4-19 [facility] Comment on above: Order Comment: 102.2 Performed By: #### M 100.2199, #### [facility] [address] [place], [address] Bilirubin directOrdered By: Balwinder Alves on 07-24-2025 Bilirubin.direct [Mass/Vol] 0.13 mg/dL 0.00-0.30 [facility] Bilirubin, totalOrdered By: Balwinder Alves on 07-24-2025 Bilirubin [Mass/Vol] 0.28 mg/dL 0.00-1.30 [facility] CBC-Complete Blood Cnt No Di ffon 07-24-2025 Erythrocyte distribution width (RBC) [Ratio] 14.6 % Normal 11.6-14.6 [facility] Comment on above: Order Comment: 102.2 Performed By: #### M , L4 #### [facility] [address] [place], [address] Hematocrit (Bld) [Volume fraction] 34.0 % Low 37-47 [facility] Comment on above: Order Comment: 102.2 Performed By: #### M 100.2199, L4 #### [facility] [address] [place], [address] Hemoglobin (Bld) [Mass/Vol] 10.5 g/dL Low 12.0-15.0 [facility] Comment on above: Order Comment: 102.2 Performed By: #### M 100.2199, L4 #### [facility] [address] [place], [address] MCH (RBC) [Entitic mass] 29.2 pg Normal 27.0-32.0 [facility] Comment on above: Order Comment: 102.2 Performed By: #### M , .2010 #### [facility] [address] [place], [address] MCHC (RBC) [Mass/Vol] 30.9 g/dL Low 32-36 [facility] Comment on above: Order Comment: 102.2 Performed By: #### M , .2010 #### [facility] [address] [place], [address] MCV (RBC) [Entitic vol] 94.7 fL Normal 81-[address] [facility] Comment on above: Order Comment: 102.2 Performed By: #### M , .2010 #### [facility] [address] [place], [address] Platelet mean volume (Bld) [Entitic vol] 8.5 fL Normal 6.2-12.0 [facility] Comment on above: Order Comment: 102.2 Performed By: #### M , L4.2010 #### [facility] [address] [place], [address] Platelets (Bld) [#/Vol] 231 10*3/uL Normal 150-450 [facility] Comment on above: Order Comment: 102.2 Performed By: #### M , L4 #### [facility] [address] [place], [address] RBC (Bld) [#/Vol] 3.59 10*6/uL Low 4.2-5.4 [facility] Comment on above: Order Comment: 102.2 Performed By: #### M , L4.2010 #### [facility] [address] [place], [address] RDW SD 50.7 fl High 35.1-43.9 [facility] Comment on above: Order Comment: 102.2 Performed By: #### M 0, L4.2010 #### [facility] [address] [place], [place], [address] WBC (Bld) [#/Vol] 6.8 10*3/uL Normal 4.4-11.0 [facility] Comment on above: Order Comment: 102.2 Performed By: #### M 100.2200, L4.2010 #### [facility] [address] [place], [address] Carbon dioxide, total [Moles /volume] in Central venous bloodOrdered By: Balwinder Alves on 07-24-2025 CO2 [Moles/Vol] 29.9 mmol/L 21.0-32.0 [facility] Chloride assayOrdered By: Jen Alves on 07-24-2025 Chloride [Moles/Vol] 101 mmol/L 98-108 [facility] Erythrocyte distribution wid th ratioOrdered By: Balwinder Alves on 07-24-2025 Erythrocyte distribution width (RBC) [Ratio] 14.6 % 11.6-14.6 [facility] Erythrocyte distribution wid th standard deviationOrdered By: Balwinder Alves on 07-24-2025 Erythrocyte distribution width (RBC) [Ratio] 50.7 fl High 35.1-43.9 [facility] Glomerular filtration rate ( GFR) estimation/1.73 sq m using serum, plasma, or whole bOrdered By: Balwinder Alves on 07-24-2025 GFR/1.73 sq M.predicted among non-blacks MDRD (S/P/Bld) [Vol rate/Area] 87 mL/min/{1.73_m2} >60 [facility] Comment on above: mL/min/1.73m2 CKD-EP I Creatinine Equation (2020) Hematocrit Auto (Bld) [Volum e fraction]Ordered By: Balwinder Alves on 07-24-2025 Hematocrit (Bld) [Volume fraction] 34.0 % Low 37-47 [facility] Hemoglobin measurementOrdere d By: Balwinder Alves on 07-24-2025 Hemoglobin (Bld) [Mass/Vol] 10.5 g/dL Low 12.0-15.0 [facility] - Chemistry and C hemistry - challengeOrdered By: Balwinder Alves on 07-24-2025 AST [Catalytic activity/Vol] 9 U/L <32 [facility] Liver Profileon 07-24-2025 Albumin [Mass/Vol] 3.3 g/dL Low 3.4-4.8 [facility] Comment on above: Order Comment: 102.2 Performed By: #### M 100.2199, .2010 #### [facility] [address] [place], [address] ALK PHOS 68 U/L Normal 35-104 [facility] Comment on above: Order Comment: 102.2 Performed By: #### M , #### [facility] [address] [place], [address] ALT [Catalytic activity/Vol] U/L Normal <=34 [facility] Comment on above: Order Comment: 102.2 Performed By: #### M , #### [facility] [address] [place], [address] AST [Catalytic activity/Vol] 9 U/L Normal <=31 [facility] Comment on above: Order Comment: 102.2 Performed By: #### M , #### [facility] [address] [place], [address] Bilirubin [Mass/Vol] 0.28 mg/dL Normal 0.00-1.30 [facility] Comment on above: Order Comment: 102.2 Performed By: #### M , L4 #### [facility] [address] [place], [address] Bilirubin.direct [Mass/Vol] 0.13 mg/dL Normal 0.00-0.30 [facility] Comment on above: Order Comment: 102.2 Performed By: #### M , L4 #### [facility] [address] [place], [address] Globulin (S) [Mass/Vol] 2.8 g/dL Normal 2.2-4.[address] [facility] Comment on above: Order Comment: 102.2 Performed By: #### M 100.2200, L400.2010 #### [facility] [address] [place], [address] T PROT 6.1 g/dL Normal 5.9-8.4 [facility] Comment on above: Order Comment: 102.2 Performed By: #### M 100.2200, L400.2010 #### [facility] [address] [place], [address] MCV (mean corpuscular volume ) determinationOrdered By: Balwinder Alves on 07-24-2025 MCV (RBC) [Entitic vol] 94.7 fL 81-99 [facility] Mean corpuscular hemoglobin (MCH) determinationOrdered By: Balwinder Alves on 07-24-2025 MCH (RBC) [Entitic mass] 29.2 pg 27.0-32.0 [facility] Mean corpuscular hemoglobin concentration (MCHC) determinationOrdered By: Balwinder Alves on 07-24-2025 MCHC (RBC) [Mass/Vol] 30.9 g/dL Low 32-36 [facility] Mean platelet volume determi nationOrdered By: Balwinder Alves on 07-24-2025 Platelet mean volume (Bld) [Entitic vol] 8.5 fL 6.2-12.0 [facility] Platelet countOrdered By: Jen Alves on 07-24-2025 Platelets (Bld) [#/Vol] 231 10*3/uL 150-450 [facility] Potassium measurement (mass/ volume)Ordered By: Balwinder Alves on 07-24-2025 Potassium (Unsp spec) [Mass/Vol] 4.4 mmol/L 3.3-5.1 [facility] RBC Auto (Bld) [#/Vol]Ordere d By: Balwinder Alves on 07-24-2025 RBC (Bld) [#/Vol] 3.59 10*6/uL Low 4.2-5.4 [facility] Serum creatinine measurement (mass/volume)Ordered By: Balwinder Alves on 07-24-2025 Creatinine [Mass/Vol] 0.68 mg/dL Low 0.70-1.20 [facility] Serum globulin measurementOr dered By: Balwinder Alves on 07-24-2025 Globulin (S) [Mass/Vol] 2.8 g/dL 2.2-4.[address] [facility] Serum glucose measurement (m ass/volume)Ordered By: Balwinder Alves on 07-24-2025 Glucose [Mass/Vol] 176 mg/dL High 70-99 [facility] Serum or plasma alanine galan otransferase (ALT) measurementOrdered By: Balwinder Alves on 07-24-2025 ALT [Catalytic activity/Vol] U/L <35 [facility] Serum or plasma albumin jacqueline urement (mass/volume)Ordered By: Balwinder Alves on 07-24-2025 Albumin [Mass/Vol] 3.3 g/dL Low 3.4-4.8 [facility] Serum or plasma alkaline marva sphatase measurementOrdered By: Balwinder Alves on 07-24-2025 ALP [Catalytic activity/Vol] 68 U/L 35-104 [facility] Serum or plasma calcium jacqueline urement (mass/volume)Ordered By: Balwinder Alves on 07-24-2025 Calcium [Mass/Vol] 9.1 mg/dL 7.6-11.0 [facility] Serum or plasma urea nitroge n measurement (mass/volume)Ordered By: Balwinder Alves on 07-24-2025 Urea nitrogen [Mass/Vol] 6 mg/dL 4-19 [facility] Sodium levelOrdered By: Balwinder Alves on 07-24-2025 Sodium [Moles/Vol] 139 mmol/L 133-145 [facility] Total proteinOrdered By: Javed Alves on 07-24-2025 Protein [Mass/Vol] 6.1 g/dL 5.9-8.4 [facility] White blood cell (WBC) count Ordered By: Balwinder Avles on 07-24-2025 WBC (Bld) [#/Vol] 6.8 10*3/uL 4.4-11.0 [facility] Anion gap in Serum or Plasma Ordered By: Balwinder Alves on 07-10-2025 Anion gap [Moles/Vol] 9 mmol/L - [facility] BUN/creatinine ratioOrdered By: Balwinder Alves on 07-10-2025 Urea nitrogen/Creatinine [Mass ratio] 15.3 mg/mg - [facility] Basic Metabolic Profile (BMP )on 07-10-2025 BUN/CRE 15.3 RATIO Normal 07-24 [facility] Comment on above: Performed By: #### L 500.2500, L100.0100 #### [facility] [address] [place], [address] Calcium [Mass/Vol] 9.1 mg/dL Normal 7.6-11.0 [facility] Comment on above: Performed By: #### L 500.2500, L100.0100 #### [facility] [address] [place], [address] Chloride [Moles/Vol] 101 mmol/L Normal 98-108 [facility] Comment on above: Performed By: #### L 500.2500, L100.0100 #### [facility] [address] [place], [address] CO2 [Moles/Vol] 27.6 mmol/L Normal 21.0-32.0 [facility] Comment on above: Performed By: #### L 500.2500, L100.0100 #### [facility] [address] [place], [address] Creatinine [Mass/Vol] 0.72 mg/dL Normal 0.70-1.20 [facility] Comment on above: Performed By: #### L 500.2500, L100.0100 #### [facility] [address] [place], [address] GAP 9 Normal - [facility] Comment on above: Performed By: #### L 500.2500, L100.0100 #### [facility] [address] [place], [address] GFR/1.73 sq M.predicted among non-blacks MDRD (S/P/Bld) [Vol rate/Area] 84 mL/min/{1.73_m2} Normal >60 [facility] Comment on above: Result Comment: mL/m in/1.73m2 CKD-EPI Creatinine Equation (2020) Performed By: #### L 500.2500, L100.0100 #### [facility] [address] [place], [address] Glucose [Mass/Vol] 184 mg/dL High 70-99 [facility] Comment on above: Performed By: #### L 500.2500, L100.0100 #### [facility] [address] [place], [address] Potassium [Moles/Vol] 4.5 mmol/L Normal 3.3-5.1 [facility] Comment on above: Performed By: #### L 500.2500, L100.0100 #### [facility] [address] [place], [address] Sodium [Moles/Vol] 138 mmol/L Normal 133-145 [facility] Comment on above: Performed By: #### L 500.2500, L100.0100 #### [facility] [address] [place], [address] Urea nitrogen [Mass/Vol] 11 mg/dL Normal 4-19 [facility] Comment on above: Performed By: #### L 500.2500, L100.0100 #### [facility] [address] [place], [address] Bilirubin directOrdered By: Balwinder Alves on 07-10-2025 Bilirubin.direct [Mass/Vol] 0.14 mg/dL 0.00-0.30 [facility] Bilirubin, totalOrdered By: Balwinder Alves on 07-10-2025 Bilirubin [Mass/Vol] 0.30 mg/dL 0.00-1.30 [facility] CBC-Complete Blood Cnt No Di ffon 07-10-2025 Erythrocyte distribution width (RBC) [Ratio] 14.6 % Normal 11.6-14.6 [facility] Comment on above: Performed By: #### L 500.2500, L100.0100 #### [facility] [address] [place], [address] Hematocrit (Bld) [Volume fraction] 35.7 % Low 37-47 [facility] Comment on above: Performed By: #### L 500.2500, L100.0100 #### [facility] [address] [place], [address] Hemoglobin (Bld) [Mass/Vol] 11.1 g/dL Low 12.0-15.0 [facility] Comment on above: Performed By: #### L 500.2500, L100.0100 #### [facility] [address] [place], [address] MCH (RBC) [Entitic mass] 29.2 pg Normal 27.0-32.0 [facility] Comment on above: Performed By: #### L 500.2500, L100.0100 #### [facility] [address] [place], [address] MCHC (RBC) [Mass/Vol] 31.1 g/dL Low 32-36 [facility] Comment on above: Performed By: #### L 500.2500, L100.0100 #### [facility] [address] [place], [address] MCV (RBC) [Entitic vol] 93.9 fL Normal 81-[address] [facility] Comment on above: Performed By: #### L 500.2500, L100.0100 #### [facility] [address] [place], [address] Platelet mean volume (Bld) [Entitic vol] 9.0 fL Normal 6.2-12.0 [facility] Comment on above: Performed By: #### L 500.2500, L100.0100 #### [facility] [address] [place], [address] Platelets (Bld) [#/Vol] 164 10*3/uL Normal 150-450 [facility] Comment on above: Performed By: #### L 500.2500, L100.0100 #### [facility] [address] [place], [address] RBC (Bld) [#/Vol] 3.80 10*6/uL Low 4.2-5.4 [facility] Comment on above: Performed By: #### L 500.2500, L100.0100 #### [facility] [address] [place], [address] RDW SD 49.8 fl High 35.1-43.9 [facility] Comment on above: Performed By: #### L 500.2500, L100.0100 #### [facility] [address] [place], [address] WBC (Bld) [#/Vol] 7.1 10*3/uL Normal 4.4-11.0 [facility] Comment on above: Performed By: #### L 500.2500, L100.0100 #### [facility] [address] [place], [address] Carbon dioxide, total [Moles /volume] in Central venous bloodOrdered By: Balwinder Alves on 07-10-2025 CO2 [Moles/Vol] 27.6 mmol/L 21.0-32.0 [facility] Chloride assayOrdered By: Jen Alves on 07-10-2025 Chloride [Moles/Vol] 101 mmol/L 98-108 [facility] Erythrocyte distribution wid th ratioOrdered By: Balwinder Alves on 07-10-2025 Erythrocyte distribution width (RBC) [Ratio] 14.6 % 11.6-14.6 [facility] Erythrocyte distribution wid th standard deviationOrdered By: Balwinder Alves on 07-10-2025 Erythrocyte distribution width (RBC) [Ratio] 49.8 fl High 35.1-43.9 [facility] Glomerular filtration rate ( GFR) estimation/1.73 sq m using serum, plasma, or whole bOrdered By: Balwinder Alves on 07-10-2025 GFR/1.73 sq M.predicted among non-blacks MDRD (S/P/Bld) [Vol rate/Area] 84 mL/min/{1.73_m2} >60 [facility] Comment on above: mL/min/1.73m2 CKD-EP I Creatinine Equation (2020) Hematocrit Auto (Bld) [Volum e fraction]Ordered By: Balwinder Alves on 07-10-2025 Hematocrit (Bld) [Volume fraction] 35.7 % Low 37-47 [facility] Hemoglobin measurementOrdere d By: Balwinder Alves on 07-10-2025 Hemoglobin (Bld) [Mass/Vol] 11.1 g/dL Low 12.0-15.0 [facility] - Chemistry and C hemistry - challengeOrdered By: Balwinder Alves on 07-10-2025 AST [Catalytic activity/Vol] 9 U/L <32 [facility] Liver Profileon 07-10-2025 Albumin [Mass/Vol] 3.4 g/dL Normal 3.4-4.8 [facility] Comment on above: Performed By: #### L 500.2500, L100.0100 #### [facility] [address] [place], [address] ALK PHOS 58 U/L Normal 35-104 [facility] Comment on above: Performed By: #### L 500.2500, L100.0100 #### [facility] [address] [place], [address] ALT [Catalytic activity/Vol] U/L Normal <=34 [facility] Comment on above: Performed By: #### L 500.2500, L100.0100 #### [facility] [address] [place], [address] AST [Catalytic activity/Vol] 9 U/L Normal <=31 [facility] Comment on above: Performed By: #### L 500.2500, L100.0100 #### [facility] [address] [place], [address] Bilirubin [Mass/Vol] 0.30 mg/dL Normal 0.00-1.30 [facility] Comment on above: Performed By: #### L 500.2500, L100.0100 #### [facility] [address] [place], [address] Bilirubin.direct [Mass/Vol] 0.14 mg/dL Normal 0.00-0.30 [facility] Comment on above: Performed By: #### L 500.2500, L100.0100 #### [facility] [address] [place], [address] Globulin (S) [Mass/Vol] 2.5 g/dL Normal 2.2-4.2 [facility] Comment on above: Performed By: #### L 500.2500, L100.0100 #### [facility] [address] [place], [address] T PROT 5.9 g/dL Normal 5.9-8.4 [facility] Comment on above: Performed By: #### L 500.2500, L100.0100 #### [facility] [address] [place], [address] MCV (mean corpuscular volume ) determinationOrdered By: Balwinder Alves on 07-10-2025 MCV (RBC) [Entitic vol] 93.9 fL 81-[address] [facility] Mean corpuscular hemoglobin (MCH) determinationOrdered By: Balwinder Alves on 07-10-2025 MCH (RBC) [Entitic mass] 29.2 pg 27.0-32.0 [facility] Mean corpuscular hemoglobin concentration (MCHC) determinationOrdered By: Balwinder Alves on 07-10-2025 MCHC (RBC) [Mass/Vol] 31.1 g/dL Low 32-36 [facility] Mean platelet volume determi nationOrdered By: Balwinder Alves on 07-10-2025 Platelet mean volume (Bld) [Entitic vol] 9.0 fL 6.2-12.0 [facility] Platelet countOrdered By: Jen Alves on 07-10-2025 Platelets (Bld) [#/Vol] 164 10*3/uL 150-450 [facility] Potassium measurement (mass/ volume)Ordered By: Balwinder Alves on 07-10-2025 Potassium (Unsp spec) [Mass/Vol] 4.5 mmol/L 3.3-5.1 [facility] RBC Auto (Bld) [#/Vol]Ordere d By: Balwinder Alves on 07-10-2025 RBC (Bld) [#/Vol] 3.80 10*6/uL Low 4.2-5.4 [facility] Serum creatinine measurement (mass/volume)Ordered By: Balwinder Alves on 07-10-2025 Creatinine [Mass/Vol] 0.72 mg/dL 0.70-1.20 [facility] Serum globulin measurementOr dered By: Balwinder Alves on 07-10-2025 Globulin (S) [Mass/Vol] 2.5 g/dL 2.2-4.[address] [facility] Serum glucose measurement (m ass/volume)Ordered By: Balwinder Alves on 07-10-2025 Glucose [Mass/Vol] 184 mg/dL High 70-99 [facility] Serum or plasma alanine galan otransferase (ALT) measurementOrdered By: Balwinder Alves on 07-10-2025 ALT [Catalytic activity/Vol] U/L <35 [facility] Serum or plasma albumin jacqueline urement (mass/volume)Ordered By: Balwinder Alves on 07-10-2025 Albumin [Mass/Vol] 3.4 g/dL 3.4-4.8 [facility] Serum or plasma alkaline marva sphatase measurementOrdered By: Balwinder Alves on 07-10-2025 ALP [Catalytic activity/Vol] 58 U/L 35-104 [facility] Serum or plasma calcium jacqueline urement (mass/volume)Ordered By: Balwinder Alves on 07-10-2025 Calcium [Mass/Vol] 9.1 mg/dL 7.6-11.0 [facility] Serum or plasma urea nitroge n measurement (mass/volume)Ordered By: Balwinder Alves on 07-10-2025 Urea nitrogen [Mass/Vol] 11 mg/dL 4-19 [facility] Sodium levelOrdered By: Balwinder Alves on 07-10-2025 Sodium [Moles/Vol] 138 mmol/L 133-145 [facility] Total proteinOrdered By: Javed Alves on 07-10-2025 Protein [Mass/Vol] 5.9 g/dL 5.9-8.4 [facility] White blood cell (WBC) count Ordered By: Balwinder Alves on 07-10-2025 WBC (Bld) [#/Vol] 7.1 10*3/uL 4.4-11.0 [facility] Bedside Glucoseon 07-06-2025 FINGERSTICK GLU 133 mg/dL High 74-106 [facility] Comment on above: Result Comment: ALEX GEMENT OF PATIENT CARE PER NURSING PROTOCOL Performed By: #### L 500.2500, L100.0100 #### [facility] Laboratory [address] [place], [address] Discharge Instructionon Discharge Instruction [facility] Medical Records Department [address] [place] [address] Instructions for Home/Discharge Instructions 07/06/25 1217 MR#: [id number] Acct: [id number] Name: GUMARO HUFF Rep #: [id number] : 1945 80 From: Dorota James MD PCP: Dr. Balwinder Alves MD Status:REG [facility] Discharge Instructions Diet Discharge Diet: No restrictions [...] Care Provider: Balwinder Alves Instructions Print Language: Jamaican Discharge Orders/Prescriptions Prescriptions: New phenazopyridine 200 mg [...] MD CC: Dr. Balwinder Alves MD Signed Normal [facility] Gl[facility] deOrdered By: Dorota James on 07-06-2025 Glucose [Mass/Vol] 133 mg/dL High 74-106 [facility] Comment on above: MANAGEMENT OF PATIEN T CARE PER NURSING PROTOCOL MR/POSTOP.Srinivasa 07-06-2025 [facility] Medical Records Department [address] [place] [address] Anesthesia Postop Eval I 07/06/25 1419 MR#: [id number] Acct: [id number] Name: GUMARO HUFF Rep #: [id number] : 1945 80 From: Gerry Brown PCP: Dr. Balwinder Alves MD Status:REG [facility] Y Race: C Location: [place] [address] Anesthesia: Postop Eval I Current Vital Signs [...] 1 completed: Yes 07/06/25 1420 Date Gerry Yousifignhussein Signature: Date CC: Signed Normal [facility] MR/[id number] 07-06-2025 [facility] Medical Records Department [address] [place] [address] Anesthesia Postop Eval II 07/06/25 1616 MR#: [id number] Acct: [id number] Name: GUMARO HUFF Rep #: [id number] : 1945 80 From: Arcenio King CRNA PCP: Dr. Balwinder Alves MD Status:REG [facility] Y Race: C Location: [place] [address] Anesthesia Postop Eval I Sum Postop Eval [...] Vomiting: No 07/06/25 1616 Date Arcenio King FRONT END MANAGER Cosigner Signature: Date CC: Signed Normal [facility] Operative Reporton 5 Operative Report [facility] Medical Records Department [address] [place] [address] Operative Report 07/06/25 1224 MR#: [id number] Acct: [id number] Name: GUMARO HUFF Rep #: [id number] : 1945 80 From: oDrota James MD PCP: Dr. Balwinder Alves MD Status:[facility] Location: [place] [address] Operative Report (Standard) Operative Information Date of Procedure: 07/06/25 Pre-Operative Diagnosis: Right renal calculus, urinary tract infection Post-Operative Diagnosis: Same Surgery/Procedure Performed: Cystoscopy with right ureteral stent insertion, right renal extracorporeal shockwave lithotripsy feather stitcher: No Type of Anesthesia: General RN Documented Start/Stop Times: Operation Date: 07/06/25 12:35 Case Time Into Pre-Op 07/06/25 10:52 Anesthesia Start 07/06/25 12:55 Into Room 07/06/25 12:55 Out of Pre-Op 07/06/25 12:57 Procedure Start 10/02/25 13:12 Procedure Start Time: 13:12 Procedure Stop Time: 13:58 Select all DRAINS/GRAFTS/IMPLANTS that apply: Drains Drain details: 6 Beninese by 28 cm JJ stent Estimated Blood [...] the level of the stone. A 6 Beninese 28 cm JJ stent was placed over [...] MD; Dr. Balwinder Alves MD Signed Normal [facility] Anion gap in Serum or Plasma Ordered By: Balwinder Alves on 07-03-2025 Anion gap [Moles/Vol] 10 mmol/L 5-15 [facility] Automated blood erythrocyte countOrdered By: Balwinder Alves on 07-03-2025 RBC (Bld) [#/Vol] 3.80 10*6/uL Low 4.2-5.4 [facility] Comment on above: Order Comment: 102.2 Performed By: #### L 100.0500, L500.2500 #### [facility] Laboratory [address] [place], [address] Automated blood hematocrit ( percentage)Ordered By: Balwinder Alves on 07-03-2025 Hematocrit (Bld) [Volume fraction] 35.9 % Low 37-47 [facility] Comment on above: Order Comment: 102.2 Performed By: #### L 100.0500, L500.2500 #### [facility] Laboratory [address], [address] BUN/creatinine ratioOrdered By: Balwinder Alves on 07-03-2025 Urea nitrogen/Creatinine [Mass ratio] 12.2 mg/mg 10-20 [facility] Basic Metabolic Profile (BMP )on 07-03-2025 BUN/CRE 12.2 RATIO Normal 10-20 [facility] Comment on above: Order Comment: 102.2 Performed By: #### L 100.0500, L500.2500 #### [facility] Laboratory [address] [place], [address] GAP 10 Normal 5-15 [facility] Comment on above: Order Comment: 102.2 Performed By: #### L 100.0500, L500.2500 #### [facility] Laboratory [address] [place], [address] Potassium [Moles/Vol] 4.6 mmol/L Normal 3.3-5.1 [facility] Comment on above: Order Comment: 102.2 Performed By: #### L 100.0500, L500.2500 #### [facility] Laboratory [address] [place], [address] Bilirubin directOrdered By: Balwinder Alves on 07-03-2025 Bilirubin.direct [Mass/Vol] 0.10 mg/dL Normal 0.00-0.30 [facility] Comment on above: Order Comment: 102.2 Performed By: #### L 100.0500, L500.2500 #### [facility] Laboratory [address] [place], [address] Bilirubin, totalOrdered By: Balwinder Alves on 07-03-2025 Bilirubin [Mass/Vol] 0.24 mg/dL Normal 0.00-1.30 [facility] Comment on above: Order Comment: 102.2 Performed By: #### L 100.0500, L500.2500 #### [facility] Laboratory [address] [place], [address] CBC-Complete Blood Cnt No Di ffon 07-03-2025 RDW SD 50.7 fl High 35.1-43.9 [facility] Comment on above: Order Comment: 102.2 Performed By: #### L 100.0500, L500.2500 #### [facility] Laboratory [address] [place], [address] Carbon dioxide, total [Moles /volume] in Central venous bloodOrdered By: Balwinder Alves on 07-03-2025 CO2 [Moles/Vol] 28.0 mmol/L Normal 21.0-32.0 [facility] Comment on above: Order Comment: 102.2 Performed By: #### L 100.0500, L500.2500 #### [facility] Laboratory [address] [place], [address] Chloride assayOrdered By: Jen Alves on 07-03-2025 Chloride [Moles/Vol] 101 mmol/L Normal 98-108 [facility] Comment on above: Order Comment: 102.2 Performed By: #### L 100.0500, L500.2500 #### [facility] Laboratory [address] [place], [address] Erythrocyte distribution wid th ratioOrdered By: Balwinder Alves on 07-03-2025 Erythrocyte distribution width (RBC) [Ratio] 14.7 % High 11.6-14.6 [facility] Comment on above: Order Comment: 102.2 Performed By: #### L 100.0500, L500.2500 #### [facility] Laboratory [address] [place], [address] Erythrocyte distribution wid th standard deviationOrdered By: Balwinder Alves on 07-03-2025 Erythrocyte distribution width (RBC) [Ratio] 50.7 fl High 35.1-43.9 [facility] Glomerular filtration rate ( GFR) estimation/1.73 sq m using serum, plasma, or whole bOrdered By: Balwinder Alves on 07-03-2025 GFR/1.73 sq M.predicted among non-blacks MDRD (S/P/Bld) [Vol rate/Area] 86 mL/min/{1.73_m2} Normal >60 [facility] Comment on above: mL/min/1.73m2 CKD-EP I Creatinine Equation (2020) Order Comment: 102.2 Result Comment: mL/m in/1.73m2 CKD-EPI Creatinine Equation (2020) Performed By: #### L 100.0500, L500.2500 #### [facility] Laboratory [address] [place], [address] Hemoglobin measurementOrdere d By: Balwinder Alves on 07-03-2025 Hemoglobin (Bld) [Mass/Vol] 11.2 g/dL Low 12.0-15.0 [facility] Comment on above: Order Comment: 102.2 Performed By: #### L 100.0500, L500.2500 #### [facility] Laboratory [address] [place], [address] Liver Profileon 07-03-2025 ALK PHOS 73 U/L Normal 35-104 [facility] Comment on above: Order Comment: 102.2 Performed By: #### L 100.0500, L500.2500 #### [facility] Laboratory [address] [place], [address] T PROT 5.9 g/dL Normal 5.9-8.4 [facility] Comment on above: Order Comment: 102.2 Performed By: #### L 100.0500, L500.2500 #### [facility] Laboratory [address] [place], [address] Liver ProfileOrdered By: Javed Alves on 07-03-2025 AST [Catalytic activity/Vol] 13 U/L Normal <=31 [facility] Comment on above: Order Comment: 102.2 Performed By: #### L 100.0500, L500.2500 #### [facility] Laboratory [address] [place], [address] MCV (mean corpuscular volume ) determinationOrdered By: Balwinder Alves on 07-03-2025 MCV (RBC) [Entitic vol] 94.5 fL Normal 81-[address] [facility] Comment on above: Order Comment: 102.2 Performed By: #### L 100.0500, L500.2500 #### [facility] Laboratory [address] [place], [address] Mean corpuscular hemoglobin (MCH) determinationOrdered By: Balwinder Alves on 07-03-2025 MCH (RBC) [Entitic mass] 29.5 pg Normal 27.0-32.0 [facility] Comment on above: Order Comment: 102.2 Performed By: #### L 100.0500, L500.2500 #### [facility] Laboratory [address] [place], [address] Mean corpuscular hemoglobin concentration (MCHC) determinationOrdered By: Balwinder Alves on 07-03-2025 MCHC (RBC) [Mass/Vol] 31.2 g/dL Low 32-36 [facility] Comment on above: Order Comment: 102.2 Performed By: #### L 100.0500, L500.2500 #### [facility] Laboratory [address] [place], [address] Mean platelet volume determi nationOrdered By: Balwinder Alves on 07-03-2025 Platelet mean volume (Bld) [Entitic vol] 8.9 fL Normal 6.2-12.0 [facility] Comment on above: Order Comment: 102.2 Performed By: #### L 100.0500, L500.2500 #### [facility] Laboratory [address] [place], [address] Platelet countOrdered By: Jen Alves on 07-03-2025 Platelets (Bld) [#/Vol] 165 10*3/uL Normal 150-450 [facility] Comment on above: Order Comment: 102.2 Performed By: #### L 100.0500, L500.2500 #### [facility] Laboratory [address] [place], [address] Potassium measurement (mass/ volume)Ordered By: Balwinder Alves on 07-03-2025 Potassium (Unsp spec) [Mass/Vol] 4.6 mmol/L 3.3-5.1 [facility] Serum creatinine measurement (mass/volume)Ordered By: Balwinder Alves on 07-03-2025 Creatinine [Mass/Vol] 0.70 mg/dL Normal 0.70-1.20 [facility] Comment on above: Order Comment: 102.2 Performed By: #### L 100.0500, L500.2500 #### [facility] Laboratory [address] [place], [address] Serum globulin measurementOr dered By: Balwinder Alves on 07-03-2025 Globulin (S) [Mass/Vol] 2.5 g/dL Normal 2.2-4.2 [facility] Comment on above: Order Comment: 102.2 Performed By: #### L 100.0500, L500.2500 #### [facility] Laboratory [address] [place], [address] Serum glucose measurement (m ass/volume)Ordered By: Balwinder Alves on 07-03-2025 Glucose [Mass/Vol] 169 mg/dL High 70-99 [facility] Comment on above: Order Comment: 102.2 Performed By: #### L 100.0500, L500.2500 #### [facility] Laboratory [address] [place], [address] Serum or plasma alanine galan otransferase (ALT) measurementOrdered By: Balwinder Alves on 07-03-2025 ALT [Catalytic activity/Vol] 12 U/L Normal <=34 [facility] Comment on above: Order Comment: 102.2 Performed By: #### L 100.0500, L500.2500 #### [facility] Laboratory [address] [place], [address] Serum or plasma albumin jacqueline urement (mass/volume)Ordered By: Balwinder Alves on 07-03-2025 Albumin [Mass/Vol] 3.4 g/dL Normal 3.4-4.8 [facility] Comment on above: Order Comment: 102.2 Performed By: #### L 100.0500, L500.2500 #### [facility] Laboratory [address] [place], [address] Serum or plasma alkaline marva sphatase measurementOrdered By: Balwinder Alves on 07-03-2025 ALP [Catalytic activity/Vol] 73 U/L 35-104 [facility] Serum or plasma calcium jacqueline urement (mass/volume)Ordered By: Balwinder Alves on 07-03-2025 Calcium [Mass/Vol] 9.2 mg/dL Normal 7.6-11.0 [facility] Comment on above: Order Comment: 102.2 Performed By: #### L 100.0500, L500.2500 #### [facility] Laboratory [address] [place], [address] Serum or plasma urea nitroge n measurement (mass/volume)Ordered By: Balwinder Alves on 07-03-2025 Urea nitrogen [Mass/Vol] 9 mg/dL Normal 4-19 [facility] Comment on above: Order Comment: 102.2 Performed By: #### L 100.0500, L500.2500 #### [facility] Laboratory [address] [place], [address] Sodium levelOrdered By: Balwinder Alves on 07-03-2025 Sodium [Moles/Vol] 139 mmol/L Normal 133-145 [facility] Comment on above: Order Comment: 102.2 Performed By: #### L 100.0500, L500.2500 #### [facility] Laboratory [address] [place], [place], [address] Total proteinOrdered By: Javed Alves on 07-03-2025 Protein [Mass/Vol] 5.9 g/dL 5.9-8.4 [facility] White blood cell (WBC) count Ordered By: Balwinder Alves on 07-03-2025 WBC (Bld) [#/Vol] 7.2 10*3/uL Normal 4.4-11.0 [facility] Comment on above: Order Comment: 102.2 Performed By: #### L 100.0500, L500.2500 #### [facility] Laboratory [address] [place], [place], [address] Laboratory - Chemistry and C hemistry - challengeOrdered By: Dorota Jaems on 06-30-2025 Bilirubin Ql (U) Negative [facility] Glucose Ql (U) Negative [facility] Ketones Ql (U) Negative [facility] pH (U) 5.5 [pH] [facility] Specific gravity (U) [Rel density] 1.010 [facility] Urobilinogen (U) [Mass/Vol] 0.8839025 mg/dL [facility] Laboratory - Hematology and Cell countsOrdered By: Dorota James on 06-30-2025 Hemoglobin Ql (U) Trace [facility] Comment on above: 25 Laboratory - Specimen inform ationOrdered By: Dorota James on 06-30-2025 Color (U) YELLOW [facility] Laboratory - UrinalysisOrder ed By: Dorota James on 06-30-2025 Nitrite Ql (U) Negative [facility] Protein Ql (U) Positive [facility] MR/BMSBud 06-30-2025 MR/BMSLEWIS [facility] [address], [address] [place] [address] OFFICE VISIT Date of Service: 06/30/25 MR#: [id number] Acct: [id number] Name: GUMARO HUFF Rep #: [id number] : 1945 Provider: Dr. Dorota Key i, MD Age/Sex: 80/F Location: [facility] Status: Signed Intake Vital Signs 05/17/25 10:04 [...] No Nurse's Note: Patient doing well today. [facility] Medical History H/O echocardiogram History of ESBL E. coli infection Lives in skilled nursing Wears glasses Wears dentures Diabetes Uses wheelchair [...] surgery/procedure a (more content not included)... Normal [facility] No Panel InformationOrdered By: Dorota James on 06-30-2025 Urine Leukocytes Positive [facility] Comment on above: 500 Anion gap in Serum or Plasma Ordered By: Balwinder Alves on 06-26-2025 Anion gap [Moles/Vol] 11 mmol/L 02-16 [facility] BUN/creatinine ratioOrdered By: Balwinder Alves on 06-26-2025 Urea nitrogen/Creatinine [Mass ratio] 13.0 mg/mg 07-24 [facility] Basic Metabolic Profile (BMP )on 06-26-2025 BUN/CRE 13.0 RATIO Normal 07-24 [facility] Comment on above: Order Comment: 102.2 Performed By: #### L 500.2500, L500.3400, L100.0500 #### [facility] Laboratory [address] [place], [address] Calcium [Mass/Vol] 9.5 mg/dL Normal 7.6-11.0 [facility] Comment on above: Order Comment: 102.2 Performed By: #### L 500.2500, L500.3400, L100.0500 #### [facility] Laboratory [address] [place] [place], [address] Chloride [Moles/Vol] 96 mmol/L Low 98-108 [facility] Comment on above: Order Comment: 102.2 Performed By: #### L 500.2500, L500.3400, L100.0500 #### [facility] Laboratory [address], [address] CO2 [Moles/Vol] 29.0 mmol/L Normal 21.0-32.0 [facility] Comment on above: Order Comment: 102.2 Performed By: #### L 500.2500, L500.3400, L100.0500 #### [facility] Laboratory [address] [place], [address] Creatinine [Mass/Vol] 0.69 mg/dL Low 0.70-1.20 [facility] Comment on above: Order Comment: 102.2 Performed By: #### L 500.2500, L500.3400, L100.0500 #### [facility] Laboratory [address] [place], [address] GAP 11 Normal 5-15 [facility] Comment on above: Order Comment: 102.2 Performed By: #### L 500.2500, L500.3400, L100.0500 #### [facility] Laboratory [address] [place], [address] GFR/1.73 sq M.predicted among non-blacks MDRD (S/P/Bld) [Vol rate/Area] 87 mL/min/{1.73_m2} Normal >60 [facility] Comment on above: Order Comment: 102.2 Result Comment: mL/m in/1.73m2 CKD-EPI Creatinine Equation (2020) Performed By: #### L 500.2500, L500.3400, L100.0500 #### [facility] Laboratory [address] [place], [address] Glucose [Mass/Vol] 207 mg/dL High 70-99 [facility] Comment on above: Order Comment: 102.2 Performed By: #### L 500.2500, L500.3400, L100.0500 #### [facility] Laboratory [address] [place], [address] Potassium [Moles/Vol] 4.7 mmol/L Normal 3.3-5.1 [facility] Comment on above: Order Comment: 102.2 Performed By: #### L 500.2500, L500.3400, L100.0500 #### [facility] Laboratory [address] [place], [address] Sodium [Moles/Vol] 136 mmol/L Normal 133-145 [facility] Comment on above: Order Comment: 102.2 Performed By: #### L 500.2500, L500.3400, L100.0500 #### [facility] Laboratory [address] [place], [address] Urea nitrogen [Mass/Vol] 9 mg/dL Normal 4-19 [facility] Comment on above: Order Comment: 102.2 Performed By: #### L 500.2500, L500.3400, L100.0500 #### [facility] Laboratory [address] [place], [address] Bilirubin directOrdered By: Balwinder Alves on 06-26-2025 Bilirubin.direct [Mass/Vol] 0.12 mg/dL 0.00-0.30 [facility] Bilirubin, totalOrdered By: Balwinder Alves on 06-26-2025 Bilirubin [Mass/Vol] 0.26 mg/dL 0.00-1.30 [facility] CBC-Complete Blood Cnt No Di ffon 06-26-2025 Erythrocyte distribution width (RBC) [Ratio] 14.5 % Normal 11.6-14.6 [facility] Comment on above: Order Comment: 102.2 Performed By: #### L 500.2500, L500.3400, L100.0500 #### [facility] Laboratory [address] [place], [address] Hematocrit (Bld) [Volume fraction] 37.3 % Normal 37-47 [facility] Comment on above: Order Comment: 102.2 Performed By: #### L 500.2500, L500.3400, L100.0500 #### [facility] Laboratory [address] [place], [address] Hemoglobin (Bld) [Mass/Vol] 11.4 g/dL Low 12.0-15.0 [facility] Comment on above: Order Comment: 102.2 Performed By: #### L 500.2500, L500.3400, L100.0500 #### [facility] Laboratory [address] [place], [address] MCH (RBC) [Entitic mass] 28.9 pg Normal 27.0-32.0 [facility] Comment on above: Order Comment: 102.2 Performed By: #### L 500.2500, L500.3400, L100.0500 #### [facility] Laboratory [address] [place], [address] MCHC (RBC) [Mass/Vol] 30.6 g/dL Low 32-36 [facility] Comment on above: Order Comment: 102.2 Performed By: #### L 500.2500, L500.3400, L100.0500 #### [facility] Laboratory [address] [place], [address] MCV (RBC) [Entitic vol] 94.7 fL Normal 81-[address] [facility] Comment on above: Order Comment: 102.2 Performed By: #### L 500.2500, L500.3400, L100.0500 #### [facility] [address] [place], [address] Platelet mean volume (Bld) [Entitic vol] 9.0 fL Normal 6.2-12.0 [facility] Comment on above: Order Comment: 102.2 Performed By: #### L 500.2500, L500.3400, L100.0500 #### [facility] Laboratory [address] [place], [address] Platelets (Bld) [#/Vol] 197 10*3/uL Normal 150-450 [facility] Comment on above: Order Comment: 102.2 Performed By: #### L 500.2500, L500.3400, L100.0500 #### [facility] [address] [place], [address] RBC (Bld) [#/Vol] 3.94 10*6/uL Low 4.2-5.4 [facility] Comment on above: Order Comment: 102.2 Performed By: #### L 500.2500, L500.3400, L100.0500 #### [facility] [address] [place], [address] RDW SD 50.1 fl High 35.1-43.9 [facility] Comment on above: Order Comment: 102.2 Performed By: #### L 500.2500, L500.3400, L100.0500 #### [facility] [address] [place], [address] WBC (Bld) [#/Vol] 7.7 10*3/uL Normal 4.4-11.0 [facility] Comment on above: Order Comment: 102.2 Performed By: #### L 500.2500, L500.3400, L100.0500 #### [facility] [address] [place], [address] Carbon dioxide, total [Moles /volume] in Central venous bloodOrdered By: Balwinder Alves on 06-26-2025 CO2 [Moles/Vol] 29.0 mmol/L 21.0-32.0 [facility] Chloride assayOrdered By: Jen Alves on 06-26-2025 Chloride [Moles/Vol] 96 mmol/L Low 98-108 [facility] Erythrocyte distribution wid th ratioOrdered By: Balwinder Alves on 06-26-2025 Erythrocyte distribution width (RBC) [Ratio] 14.5 % 11.6-14.6 [facility] Erythrocyte distribution wid th standard deviationOrdered By: Balwinder Alves on 06-26-2025 Erythrocyte distribution width (RBC) [Ratio] 50.1 fl High 35.1-43.9 [facility] Glomerular filtration rate ( GFR) estimation/1.73 sq m using serum, plasma, or whole bOrdered By: Balwinder Alves on 06-26-2025 GFR/1.73 sq M.predicted among non-blacks MDRD (S/P/Bld) [Vol rate/Area] 87 mL/min/{1.73_m2} >60 [facility] Comment on above: mL/min/1.73m2 CKD-EP I Creatinine Equation (2020) Hematocrit Auto (Bld) [Volum e fraction]Ordered By: Balwinder Alves on 06-26-2025 Hematocrit (Bld) [Volume fraction] 37.3 % 37-47 [facility] Hemoglobin measurementOrdere d By: Balwinder Alves on 06-26-2025 Hemoglobin (Bld) [Mass/Vol] 11.4 g/dL Low 12.0-15.0 [facility] - Chemistry and C hemistry - challengeOrdered By: Balwinder Alves on 06-26-2025 AST [Catalytic activity/Vol] 12 U/L <32 [facility] Liver Profileon 06-26-2025 Albumin [Mass/Vol] 3.6 g/dL Normal 3.4-4.8 [facility] Comment on above: Order Comment: 102.2 Performed By: #### L 500.2500, L500.3400, L100.0500 #### [facility] [address] [place], [address] ALK PHOS 63 U/L Normal 35-104 [facility] Comment on above: Order Comment: 102.2 Performed By: #### L 500.2500, L500.3400, L100.0500 #### [facility] [address] [place], [address] ALT [Catalytic activity/Vol] 5 U/L Normal <=34 [facility] Comment on above: Order Comment: 102.2 Performed By: #### L 500.2500, L500.3400, L100.0500 #### [facility] [address] [place], [address] AST [Catalytic activity/Vol] 12 U/L Normal <=31 [facility] Comment on above: Order Comment: 102.2 Performed By: #### L 500.2500, L500.3400, L100.0500 #### [facility] [address] [place], [address] Bilirubin [Mass/Vol] 0.26 mg/dL Normal 0.00-1.30 [facility] Comment on above: Order Comment: 102.2 Performed By: #### L 500.2500, L500.3400, L100.0500 #### [facility] [address] [place], [address] Bilirubin.direct [Mass/Vol] 0.12 mg/dL Normal 0.00-0.30 [facility] Comment on above: Order Comment: 102.2 Performed By: #### L 500.2500, L500.3400, L100.0500 #### [facility] [address] [place], [address] Globulin (S) [Mass/Vol] 2.7 g/dL Normal 2.2-4.2 [facility] Comment on above: Order Comment: 102.2 Performed By: #### L 500.2500, L500.3400, L100.0500 #### [facility] [address] [place], [address] T PROT 6.3 g/dL Normal 5.9-8.4 [facility] Comment on above: Order Comment: 102.2 Performed By: #### L 500.2500, L500.3400, L100.0500 #### [facility] [address] [place], [address] MCV (mean corpuscular volume ) determinationOrdered By: Balwinder Alves on 06-26-2025 MCV (RBC) [Entitic vol] 94.7 fL 81-99 [facility] Mean corpuscular hemoglobin (MCH) determinationOrdered By: Balwinder Alves on 06-26-2025 MCH (RBC) [Entitic mass] 28.9 pg 27.0-32.0 [facility] Mean corpuscular hemoglobin concentration (MCHC) determinationOrdered By: Balwinder Alves on 06-26-2025 MCHC (RBC) [Mass/Vol] 30.6 g/dL Low 32-36 [facility] Mean platelet volume determi nationOrdered By: Balwinder Alves on 06-26-2025 Platelet mean volume (Bld) [Entitic vol] 9.0 fL 6.2-12.0 [facility] Platelet countOrdered By: Jen Alves on 06-26-2025 Platelets (Bld) [#/Vol] 197 10*3/uL 150-450 [facility] Potassium measurement (mass/ volume)Ordered By: Balwinder Alves on 06-26-2025 Potassium (Unsp spec) [Mass/Vol] 4.7 mmol/L 3.3-5.1 [facility] RBC Auto (Bld) [#/Vol]Ordere d By: Balwinder Alves on 06-26-2025 RBC (Bld) [#/Vol] 3.94 10*6/uL Low 4.2-5.4 [facility] Serum creatinine measurement (mass/volume)Ordered By: Balwinder Alves on 06-26-2025 Creatinine [Mass/Vol] 0.69 mg/dL Low 0.70-1.20 [facility] Serum globulin measurementOr dered By: Balwinder Alves on 06-26-2025 Globulin (S) [Mass/Vol] 2.7 g/dL 2.2-4.2 [facility] Serum glucose measurement (m ass/volume)Ordered By: Balwinder Alves on 06-26-2025 Glucose [Mass/Vol] 207 mg/dL High 70-99 [facility] Serum or plasma alanine galan otransferase (ALT) measurementOrdered By: Balwinder Alves on 06-26-2025 ALT [Catalytic activity/Vol] 5 U/L <35 [facility] Serum or plasma albumin jacqueline urement (mass/volume)Ordered By: Balwinder Alves on 06-26-2025 Albumin [Mass/Vol] 3.6 g/dL 3.4-4.8 [facility] Serum or plasma alkaline marva sphatase measurementOrdered By: Balwinder Alves on 06-26-2025 ALP [Catalytic activity/Vol] 63 U/L 35-104 [facility] Serum or plasma calcium jacqueline urement (mass/volume)Ordered By: Balwinder Alves on 06-26-2025 Calcium [Mass/Vol] 9.5 mg/dL 7.6-11.0 [facility] Serum or plasma urea nitroge n measurement (mass/volume)Ordered By: Balwinder Alves on 06-26-2025 Urea nitrogen [Mass/Vol] 9 mg/dL 4-19 [facility] Sodium levelOrdered By: Balwinder Alves on 06-26-2025 Sodium [Moles/Vol] 136 mmol/L 133-145 [facility] Total proteinOrdered By: Javed Alves on 06-26-2025 Protein [Mass/Vol] 6.3 g/dL 5.9-8.4 [facility] White blood cell (WBC) count Ordered By: Balwinder Alves on 06-26-2025 WBC (Bld) [#/Vol] 7.7 10*3/uL 4.4-11.0 [facility] Anion gap in Serum or Plasma Ordered By: Balwinder Alves on 06-15-2025 Anion gap [Moles/Vol] 10 mmol/L 5-15 [facility] BUN/creatinine ratioOrdered By: Balwinder Alves on 06-15-2025 Urea nitrogen/Creatinine [Mass ratio] 13.5 mg/mg 10- [facility] Basic Metabolic Profile (BMP )on 06-15-2025 BUN/CRE 13.5 RATIO Normal - [facility] Comment on above: Order Comment: 102-2 Performed By: #### L 500.2500, L100.0100 #### [facility] [place], [address] Calcium [Mass/Vol] 9.6 mg/dL Normal 7.6-11.0 [facility] Comment on above: Order Comment: 102-2 Performed By: #### L 500.2500, L100.0100 #### [facility] [address] [place], [address] Chloride [Moles/Vol] 99 mmol/L Normal 98-108 [facility] Comment on above: Order Comment: 102-2 Performed By: #### L 500.2500, L100.0100 #### [facility] [address] [place], [address] CO2 [Moles/Vol] 28.8 mmol/L Normal 21.0-32.0 [facility] Comment on above: Order Comment: 102-2 Performed By: #### L 500.2500, L100.0100 #### [facility] [address] [place], [address] Creatinine [Mass/Vol] 0.71 mg/dL Normal 0.70-1.20 [facility] Comment on above: Order Comment: 102-2 Performed By: #### L 500.2500, L100.0100 #### [facility] [address] [place], [address] GAP 10 Normal 5-15 [facility] Comment on above: Order Comment: 102-2 Performed By: #### L 500.2500, L100.0100 #### [facility] [address] [place], [address] GFR/1.73 sq M.predicted among non-blacks MDRD (S/P/Bld) [Vol rate/Area] 85 mL/min/{1.73_m2} Normal >60 [facility] Comment on above: Order Comment: 102-2 Result Comment: mL/m in/1.73m2 CKD-EPI Creatinine Equation (2020) Performed By: #### L 500.2500, L100.0100 #### [facility] [address] [place], [address] Glucose [Mass/Vol] 204 mg/dL High 70-99 [facility] Comment on above: Order Comment: 102-2 Performed By: #### L 500.2500, L100.0100 #### [facility] [address] [place], [address] Potassium [Moles/Vol] 4.6 mmol/L Normal 3.3-5.1 [facility] Comment on above: Order Comment: 102-2 Performed By: #### L 500.2500, L100.0100 #### [facility] [address] [place], [address] Sodium [Moles/Vol] 138 mmol/L Normal 133-145 [facility] Comment on above: Order Comment: 102-2 Performed By: #### L 500.2500, L100.0100 #### [facility] [address] [place], [address] Urea nitrogen [Mass/Vol] 10 mg/dL Normal 4-19 [facility] Comment on above: Order Comment: 102-2 Performed By: #### L 500.2500, L100.0100 #### [facility] [address] [place], [address] CBC-Complete Blood Cnt No Di ffon 06-15-2025 Erythrocyte distribution width (RBC) [Ratio] 14.3 % Normal 11.6-14.6 [facility] Comment on above: Order Comment: 102-2 Performed By: #### L 500.2500, L100.0100 #### [facility] [address] [place], [address] Hematocrit (Bld) [Volume fraction] 36.7 % Low 37-47 [facility] Comment on above: Order Comment: 102-2 Performed By: #### L 500.2500, L100.0100 #### [facility] [address] [place], [address] Hemoglobin (Bld) [Mass/Vol] 11.3 g/dL Low 12.0-15.0 [facility] Comment on above: Order Comment: 102-2 Performed By: #### L 500.2500, L100.0100 #### [facility] [address] [place], [address] MCH (RBC) [Entitic mass] 28.8 pg Normal 27.0-32.0 [facility] Comment on above: Order Comment: 102-2 Performed By: #### L 500.2500, L100.0100 #### [facility] [address] [place], [address] MCHC (RBC) [Mass/Vol] 30.8 g/dL Low 32-36 [facility] Comment on above: Order Comment: 102-2 Performed By: #### L 500.2500, L100.0100 #### [facility] [address] [place], [address] MCV (RBC) [Entitic vol] 93.4 fL Normal 81-99 [facility] Comment on above: Order Comment: 102-2 Performed By: #### L 500.2500, L100.0100 #### [facility] [address] [place], [address] Platelet mean volume (Bld) [Entitic vol] 8.3 fL Normal 6.2-12.0 [facility] Comment on above: Order Comment: 102-2 Performed By: #### L 500.2500, L100.0100 #### [facility] [address] [place], [address] Platelets (Bld) [#/Vol] 184 10*3/uL Normal 150-450 [facility] Comment on above: Order Comment: 102-2 Performed By: #### L 500.2500, L100.0100 #### [facility] [address] [place], [address] RBC (Bld) [#/Vol] 3.93 10*6/uL Low 4.2-5.4 [facility] Comment on above: Order Comment: 102-2 Performed By: #### L 500.2500, L100.0100 #### [facility] [address] [place], [address] RDW SD 49.1 fl High 35.1-43.9 [facility] Comment on above: Order Comment: 102-2 Performed By: #### L 500.2500, L100.0100 #### [facility] [address] [place], [address] WBC (Bld) [#/Vol] 6.4 10*3/uL Normal 4.4-11.0 [facility] Comment on above: Order Comment: 102-2 Performed By: #### L 500.2500, L100.0100 #### [facility] [address] [place], [address] Carbon dioxide, total [Moles /volume] in Central venous bloodOrdered By: Balwinder Alves on 06-15-2025 CO2 [Moles/Vol] 28.8 mmol/L 21.0-32.0 [facility] Chloride assayOrdered By: Jen Alves on 06-15-2025 Chloride [Moles/Vol] 99 mmol/L 98-108 [facility] Erythrocyte distribution wid th ratioOrdered By: Balwinder Alves on 06-15-2025 Erythrocyte distribution width (RBC) [Ratio] 14.3 % 11.6-14.6 [facility] Erythrocyte distribution wid th standard deviationOrdered By: Balwinder Alves on 06-15-2025 Erythrocyte distribution width (RBC) [Ratio] 49.1 fl High 35.1-43.9 [facility] Glomerular filtration rate ( GFR) estimation/1.73 sq m using serum, plasma, or whole bOrdered By: Balwinder Alves on 06-15-2025 GFR/1.73 sq M.predicted among non-blacks MDRD (S/P/Bld) [Vol rate/Area] 85 mL/min/{1.73_m2} >60 [facility] Comment on above: mL/min/1.73m2 CKD-EP I Creatinine Equation (2020) Hematocrit Auto (Bld) [Volum e fraction]Ordered By: Balwinder Alves on 06-15-2025 Hematocrit (Bld) [Volume fraction] 36.7 % Low 37-47 [facility] Hemoglobin measurementOrdere d By: Balwinder Alves on 06-15-2025 Hemoglobin (Bld) [Mass/Vol] 11.3 g/dL Low 12.0-15.0 [facility] MCV (mean corpuscular volume ) determinationOrdered By: Balwinder Alves on 06-15-2025 MCV (RBC) [Entitic vol] 93.4 fL 81-[address] [facility] Mean corpuscular hemoglobin (MCH) determinationOrdered By: Balwinder Alves on 06-15-2025 MCH (RBC) [Entitic mass] 28.8 pg 27.0-32.0 [facility] Mean corpuscular hemoglobin concentration (MCHC) determinationOrdered By: Balwinder Alves on 06-15-2025 MCHC (RBC) [Mass/Vol] 30.8 g/dL Low 32-36 [facility] Mean platelet volume determi nationOrdered By: Balwinder Alves on 06-15-2025 Platelet mean volume (Bld) [Entitic vol] 8.3 fL 6.2-12.0 [facility] Platelet countOrdered By: Jen Alves on 06-15-2025 Platelets (Bld) [#/Vol] 184 10*3/uL 150-450 [facility] Potassium measurement (mass/ volume)Ordered By: Balwinder Alves on 06-15-2025 Potassium (Unsp spec) [Mass/Vol] 4.6 mmol/L 3.3-5.1 [facility] RBC Auto (Bld) [#/Vol]Ordere d By: Balwinder Alves on 06-15-2025 RBC (Bld) [#/Vol] 3.93 10*6/uL Low 4.2-5.4 [facility] Serum creatinine measurement (mass/volume)Ordered By: Balwinder Alves on 06-15-2025 Creatinine [Mass/Vol] 0.71 mg/dL 0.70-1.20 [facility] Serum glucose measurement (m ass/volume)Ordered By: Balwinder Alves on 06-15-2025 Glucose [Mass/Vol] 204 mg/dL High 70-99 [facility] Serum or plasma calcium jacqueline urement (mass/volume)Ordered By: Balwinder Alves on 06-15-2025 Calcium [Mass/Vol] 9.6 mg/dL 7.6-11.0 [facility] Serum or plasma urea nitroge n measurement (mass/volume)Ordered By: Balwinder Alves on 06-15-2025 Urea nitrogen [Mass/Vol] 10 mg/dL 4-19 [facility] Sodium levelOrdered By: Balwinder Alves on 06-15-2025 Sodium [Moles/Vol] 138 mmol/L 133-145 [facility] White blood cell (WBC) count Ordered By: Balwinder Alves on 06-15-2025 WBC (Bld) [#/Vol] 6.4 10*3/uL 4.4-11.0 [facility] Urine Cultureon 06-05-2025 [facility] POSSIBLE E.COLI 0157 . UNABLE TO CONFIRM, TESTING DISCONTINUED AT [facility]. Urine Culture [facility] 0904 Lorrie Patterson. REPORT READ BACK BY . Urine Culture Copy of report sent to Infection Control Printer [id number] 06/04/25 0977 ESSENCE. ESBL Escherichia coli [place] Count 80,000-100,000 MARKER ESBL producing OrganismA MARKER [...] [facility] [place], [address] Calculated very low density lipoprotein (VLDL) cholesterol measurementOrdered By: Balwinder Alves on 06-01-2025 Calculated very low density lipoprotein (VLDL) cholesterol measurement 40 mg/dL [facility] Hemoglobin A1c percentageOrd ered By: Balwinder Alves on 06-01-2025 HbA1c (Bld) [Mass fraction] 7.8 % High <=5.6 [facility] Comment on above: Normal < 5.7 % Predi abetic 5.7 - 6.4 % Diabetic >or= 6.5 % Please note range changes. Result Comment: Norm al < 5.7 % Prediabetic 5.7 - 6.4 % Diabetic >or= 6.5 % Please note range changes. Performed By: #### M 100.2200, L4 #### [facility] [address] [place], [place], [address] LDL calc ser/plasOrdered By: Balwinder Alves on 06-01-2025 Cholesterol in LDL [Mass/Vol] 28 mg/dL Normal [facility] Comment on above: Flewqjqakp=483-765 m g/dL & Higher Xnhd=962 mg/dL or greaterFriedwald Equation for LDL-C Order Comment: 102.2 Result Comment: Bord pcrahm=984-548 mg/dL Higher Yanl=847 mg/dL or greater Friedwald Equation for LDL-C Performed By: #### M 100.2200, L4 #### [facility] [address] [place], [place], [address] Lipid Profileon 06-01-2025 CHOL:HDL 2.24 Normal [facility] Comment on above: Order Comment: 102.2 Performed By: #### M 100.2200, L4 #### [facility] [address] [place], [address] Cholesterol in VLDL [Mass/Vol] 40 mg/dL Normal [facility] Comment on above: Order Comment: 102.2 Performed By: #### M 100.2200, L4 #### [facility] [address] [place], [place], [address] Screening total cholesterol/ high density lipoprotein (HDL) cholesterol ratioOrdered By: Balwinder Alves on 06-01-2025 Cholesterol.total/Jany sterol in HDL [Mass ratio] 2.24 {ratio} [facility] Serum or plasma cholesterol in HDL measurement (mass/volume)Ordered By: Balwinder Alves on 06-01-2025 Cholesterol in HDL [Mass/Vol] 55 mg/dL Normal [facility] [...] hormones, sex and age. Performed By: #### M 100.2200, L400.2010 #### [facility] [address] [place], [place], [address] Serum or plasma cholesterol measurement (mass/volume)Ordered By: Balwinder Alves on 06-01-2025 Cholesterol [Mass/Vol] 123 mg/dL Normal <=200 [facility] Comment on above: Cholesterol level, D esirable <200 mg/dLBorderline high cholesterol 200-239 mg/dLHigh cholesterol >=240 mg/dLRecommendations of the NCEP Adult Treatment Panel for the following risk-cutoff thresholds for the [place] population. Order Comment: 102.2 Result Comment: Chol esterol level, Desirable <200 mg/dL Borderline high cholesterol 200-239 mg/dL High cholesterol >=240 mg/dL Recommendations of the NCEP Adult Treatment Panel for the following risk-cutoff thresholds for the [place] population. Performed By: #### M 100.2200, L400.2010 #### [facility] [address] [place], [address] Triglycerides measurementOrd ered By: Balwinder Alves on 06-01-2025 Triglyceride [Mass/Vol] 199 mg/dL Normal [facility] Comment on above: The drugs N-Acetylcy steine and Metamizole may falsely depress this assay. Normal range: <150 mg/dLBorderline High: 150-199 mg/dLHigh: 200-499 mg/dLVery High: >500 mg/dL Order Comment: 102.2 Result Comment: The drugs N-Acetylcysteine and Metamizole may falsely depress this assay. Normal range: <150 mg/dL Borderline High: 150-199 mg/dL High: 200-499 mg/dL Very High: >500 mg/dL Performed By: #### M 100.0, L400.2010 #### [facility] [address] [place], [address] Urinalysis, Routine (Dipstic k)on 06-01-2025 BILIRUBIN URINE Negative Normal Negative [facility] Comment on above: Order Comment: 102-2 Performed By: #### L 500.2500, L100.0100 #### [facility] [address] [place], [address] Clarity (U) Cloudy Normal Clear [facility] Comment on above: Order Comment: 102-2 Performed By: #### L 500.2500, L100.0100 #### [facility] [address] [place], [address] Color (U) Yellow Normal Yellow [facility] Comment on above: Order Comment: 102-2 Performed By: #### L 500.2500, L100.0100 #### [facility] [address] [place], [address] GLUCOSE, UR Normal Normal Normal [facility] Comment on above: Order Comment: 102-2 Performed By: #### L 500.2500, L100.0100 #### [facility] [address] [place], [address] KETONE UR Negative Normal Negative [facility] Comment on above: Order Comment: 102-2 Performed By: #### L 500.2500, L100.0100 #### [facility] [address] [place], [address] LEUK ESTERASE 500 /ul Abnormal Negative [facility] Comment on above: Order Comment: 102-2 Performed By: #### L 500.2500, L100.0100 #### [facility] [address] [place], [address] Nitrite Ql (U) Positive Abnormal Negative [facility] Comment on above: Order Comment: 102-2 Performed By: #### L 500.2500, L100.0100 #### [facility] [address] [place], [address] OCCULT BLOOD-UR 250 /ul Abnormal Negative [facility] Comment on above: Order Comment: 102-2 Performed By: #### L 500.2500, L100.0100 #### [facility] [address] [place], [address] pH UR 6.0 Normal 5.0 - 8.0 [facility] Comment on above: Order Comment: 102-2 Performed By: #### L 500.2500, L100.0100 #### [facility] [address] [place], [address] PROT DIPSTX 30 mg/dl Abnormal Negative [facility] Comment on above: Order Comment: 102-2 Performed By: #### L 500.2500, L100.0100 #### [facility] [address] [place], [address] SP.GR. DIPSTX 1.015 Normal 1.002-1.030 [facility] Comment on above: Order Comment: 102-2 Performed By: #### L 500.2500, L100.0100 #### [facility] [address] [place], [address] UROBILI Normal Normal Normal [facility] Comment on above: Order Comment: 102-2 Performed By: #### L 500.2500, L100.0100 #### [facility] [address] [place], [address] Vitamin D,25 Hydroxyon 06-01 Vitamin D 25-OH 31.8 ng/mL Normal 30-100 [facility] Comment on above: Order Comment: 102.2 Result Comment: Feli min D Status Deficiency: <20 ng/mL (50nmol/L) Insufficiency: 20-30 ng/mL (50-75 nmol/L) Sufficiency: 30-100 ng/mL (75-250 nmol/L) Toxicity: >100 ng/mL (>250 nmol/L) Performed By: #### M 100.2200, L400.2010 #### [facility] [address] [place], [place], [address] Bilirubin Test strip Ql (U)O rdered By: Balwinder Alves on 05-31-2025 Bilirubin Ql (U) Negative Negative [facility] Ketones Test strip Ql (U)Ord ered By: Balwinder Alves on 05-31-2025 Ketones Ql (U) Negative Negative [facility] Nitrite Test strip Ql (U)Ord ered By: Balwinder Alves on 05-31-2025 Nitrite Ql (U) Positive High Negative [facility] Protein Test strip Ql (U)Ord ered By: Balwinder Alves on 05-31-2025 Protein Ql (U) 30 mg/dl High Negative [facility] Urine clarityOrdered By: Javed Alves on 05-31-2025 Clarity (U) Cloudy Clear [facility] Urine color determinationOrd ered By: Balwinder Alves on 05-31-2025 Color (U) Yellow Yellow [facility] Urine cultureOrdered By: Javed Alves on 05-31-2025 Bacteria identified Cx Nom (U) ESBL Escherichia coli Abnormal [facility] Urine glucose detectionOrder ed By: Balwinder Alves on 05-31-2025 Glucose Ql (U) Normal mg/dl Normal [facility] [...] Specific gravity (U) [Rel density] 1.015 1.002-1.030 [facility] Urine urobilinogen measureme ntOrdered By: Balwinder Alves on 05-31-2025 Urobilinogen Ql (U) Normal mg/dl Normal [facility] MR/PAT.ANEon 05-30-2025 MR/PAT.ANE [facility] Medical Records Department [address] [place] [address] PAT - Anesthesia 05/30/25904 MR#: [id number] Acct: [id number] Name: GUMARO HUFF Rep #: [id number] : 1945 80 From: Shailesh Russell MD PCP: Dr. Balwinder Alves MD Status:PRE [facility] Y Race: C Location: [facility] Pre-Assessment Diagnosis/Proposed Procedure Planned Operative Procedure(s): RIGHT ESWL CYSTO RIGHT STENT Anesthesia History Anesthesia History - certified credit counselor: Anesthesia History - certified credit counselor Hx Hospitalization No 05/29/25 16:00 Any Problems [...] take am of surgery PONV PONV - certified credit counselor: PONV - certified credit counselor Female Yes 05/29/25 16:00 HX of Motion [...] 05/17/25 10:04 Respiratory Assessment Respiratory Assessment - certified credit counselor: Respiratory Tract Infection Hx - certified credit counselor Hx Respiratory Tract Infection No 05/29/25 16:00 STOP Sleep Apnea STOP Sleep Apnea - certified credit counselor: STOP Sleep Apnea - certified credit counselor Hx Hypertension Yes 05/29/25 16:00 Hx Sleep [...] Tobacco Use History Tobacco Use History - certified credit counselor: Tobacco Use History - certified credit counselor Tobacco Use Smoking Status Former smoker 05/29/25 16:00 Hx Tobacco Use No 05/29/25 16:00 Years Smoking Packs Smoked per Day Smoking Cessation Date was Yes - quit smoking within 15 05/29/25 16:00 within the last 15 years years Hx Smoking Cessation Date 10/05/13 05/29/25 16:00 Hx Smoking Cessation Counseling Hematologic Medial History Hematologic Hx - certified credit counselor: 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 Normal [facility] Abdomen Single Viewon 2024 Abdomen Single View [facility] Imaging Services [address] [place], [place] [address] Abdomen Single View MR#: [id number] Acct: [id number] Name: GUMARO HUFF Rep #: [id number] : 1945 F 80 From: Filippo Barth MD PCP: Dr. Balwinder Alves MD Status: REG CLI Study: Abdomen Single View Date of Exam: 05/17/25 Exam# [id number] Ordering Dr: Dorota James MD PROCEDURE: ABDOMEN [...] renal staghorn calculus is redemonstrated. Reading Location: [place] [address] CC: Dr. Dorota James MD; Dr. Balwinder Alves MD Experimental Machinist: Signed Normal [facility] Absolute lymphocyte countOrd ered By: Dorota James on 05-17-2025 Lymphocytes Auto (Unsp spec) [#/Vol] 1.88 10*3/uL 0.83-4.51 [facility] Absolute neutrophil countOrd ered By: Dorotaismael James on 05-17-2025 Neutrophils (Bld) [#/Vol] 4.3 10*3/uL 2.0-7.7 [facility] Anion gap in Serum or Plasma Ordered By: Dorota James on 05-17-2025 Anion gap [Moles/Vol] 12 mmol/L 02-16 [facility] Automated lymphocyte count a s percentage of total leukocytesOrdered By: Dorota James on 05-17-2025 Lymphocytes/100 WBC Auto (Unsp spec) 27.0 % - [facility] BUN/creatinine ratioOrdered By: Dorota James on 05-17-2025 Urea nitrogen/Creatinine [Mass ratio] 14.0 mg/mg 07-24 [facility] Basic Metabolic Profile (BMP )on 05-17-2025 BUN/CRE 14.0 RATIO Normal 07-24 [facility] Comment on above: Performed By: #### L 500.2500, L500.3400, L100.0500 #### [facility] [address] [place], [address] GAP 12 Normal 02-16 [facility] Comment on above: Performed By: #### L 500.2500, L500.3400, L100.0500 #### [facility] [address] [place], [address] Potassium [Moles/Vol] 4.7 mmol/L Normal 3.3-5.1 [facility] Comment on above: Performed By: #### L 500.2500, L500.3400, L100.0500 #### [facility] [address] [place], [address] Basophil percentageOrdered B y: Dorota James on 05-17-2025 Basophils/100 WBC (Bld) 0.4 % 0-[address] [facility] CBC W/Diff, Automatedon 05-05 Absolute Lymph 1.88 X10 3/uL Normal 0.83-4.51 [facility] Comment on above: Performed By: #### L 100.0500, L500.2500 #### [facility] [address] [place], [address] Absolute Neut 4.3 X10 3/uL Normal 2.0-7.7 [facility] Comment on above: Performed By: #### L 100.0500, L500.2500 #### [facility] [address] [place], [address] Basophils/100 WBC (Bld) 0.4 % Normal 0-[address] [facility] Comment on above: Performed By: #### L 100.0500, L500.2500 #### [facility] [address] [place], [address] Eosinophils/100 WBC (Bld) 4.3 % Normal 0-5 [facility] Comment on above: Performed By: #### L 100.0500, L500.2500 #### [facility] [address] [place], [address] Erythrocyte distribution width (RBC) [Ratio] 14.1 % Normal 11.6-14.6 [facility] Comment on above: Performed By: #### L 100.0500, L500.2500 #### [facility] [address] [place], [address] Hematocrit (Bld) [Volume fraction] 39.8 % Normal 37-47 [facility] Comment on above: Performed By: #### L 100.0500, L500.2500 #### [facility] [address] [place], [address] Hemoglobin (Bld) [Mass/Vol] 12.1 g/dL Normal 12.0-15.0 [facility] Comment on above: Performed By: #### L 100.0500, L500.2500 #### [facility] [address] [place], [address] IG% 0.700 Normal 0.0-0.9 [facility] Comment on above: Result Comment: IG% - Immature Granulocytes (promyelocytes, myelocytes and metamyelocytes) > 1% indicates that a LEFT SHIFT is Present. Performed By: #### L 100.0500, L500.2500 #### [facility] [address] [place], [address] Lymphocytes/100 WBC (Bld) 27.0 % Normal 19-41 [facility] Comment on above: Performed By: #### L 100.0500, L500.2500 #### [facility] [address] [place], [address] MCH (RBC) [Entitic mass] 28.7 pg Normal 27.0-32.0 [facility] Comment on above: Performed By: #### L 100.0500, L500.2500 #### [facility] [address] [place], [address] MCHC (RBC) [Mass/Vol] 30.4 g/dL Low 32-36 [facility] Comment on above: Performed By: #### L 100.0500, L500.2500 #### [facility] [address] [place], [address] MCV (RBC) [Entitic vol] 94.5 fL Normal 81-[address] [facility] Comment on above: Performed By: #### L 100.0500, L500.2500 #### [facility] [address] [place], [address] Monocytes/100 WBC (Bld) 6.5 % Normal 0-[address] [facility] Comment on above: Performed By: #### L 100.0500, L500.2500 #### [facility] [address] [place], [address] Neutrophils/100 WBC (Bld) 61.1 % Normal 47-70 [facility] Comment on above: Performed By: #### L 100.0500, L500.2500 #### [facility] [address] [place], [address] Nucleated RBC (Bld) [#/Vol] 0 10*3/uL Normal 0-5 [facility] Comment on above: Performed By: #### L 100.0500, L500.2500 #### [facility] [address] [place], [address] Platelet mean volume (Bld) [Entitic vol] 8.8 fL Normal 6.2-12.0 [facility] Comment on above: Performed By: #### L 100.0500, L500.2500 #### [facility] [address] [place], [address] Platelets (Bld) [#/Vol] 220 10*3/uL Normal 150-450 [facility] Comment on above: Performed By: #### L 100.0500, L500.2500 #### [facility] [address] [place], [address] RBC (Bld) [#/Vol] 4.21 10*6/uL Normal 4.2-5.4 [facility] Comment on above: Performed By: #### L 100.0500, L500.2500 #### [facility] [address] [place], [address] RDW SD 48.4 fl High 35.1-43.9 [facility] Comment on above: Performed By: #### L 100.0500, L500.2500 #### [facility] [address] [place], [address] WBC (Bld) [#/Vol] 7.0 10*3/uL Normal 4.4-11.0 [facility] Comment on above: Performed By: #### L 100.0500, L500.2500 #### [facility] [address] [place], [address] Carbon dioxide, total [Moles /volume] in Central venous bloodOrdered By: Dorota James on 05-17-2025 CO2 [Moles/Vol] 26.4 mmol/L Normal 21.0-32.0 [facility] Comment on above: Performed By: #### L 500.2500, L500.3400, L100.0500 #### [facility] [address] [place], [address] Chloride assayOrdered By: Manuel James on 05-17-2025 Chloride [Moles/Vol] 99 mmol/L Normal 98-108 [facility] Comment on above: Performed By: #### L 500.2500, L500.3400, L100.0500 #### [facility] [address] [place], [address] Eosinophil percentageOrdered By: Dorota James on 05-17-2025 Eosinophils/100 WBC (Bld) 4.3 % 0-5 [facility] Erythrocyte distribution wid th ratioOrdered By: Dorota James on 05-17-2025 Erythrocyte distribution width (RBC) [Ratio] 14.1 % 11.6-14.6 [facility] Erythrocyte distribution wid th standard deviationOrdered By: Dorota James on 05-17-2025 Erythrocyte distribution width (RBC) [Ratio] 48.4 fl High 35.1-43.9 [facility] Glomerular filtration rate ( GFR) estimation/1.73 sq m using serum, plasma, or whole bOrdered By: Dorota James on 05-17-2025 GFR/1.73 sq M.predicted among non-blacks MDRD (S/P/Bld) [Vol rate/Area] 82 mL/min/{1.73_m2} Normal >60 [facility] Comment on above: mL/min/1.73m2 CKD-EP I Creatinine Equation (2020) Result Comment: mL/m in/1.73m2 CKD-EPI Creatinine Equation (2020) Performed By: #### L 500.2500, L500.3400, L100.0500 #### [facility] [address] [place], [address] Hematocrit Auto (Bld) [Volum e fraction]Ordered By: Dorota James on 05-17-2025 Hematocrit (Bld) [Volume fraction] 39.8 % 37-47 [facility] Hemoglobin measurementOrdere d By: Dorota James on 05-17-2025 Hemoglobin (Bld) [Mass/Vol] 12.1 g/dL 12.0-15.0 [facility] James on 05-17-2025 Bilirubin Ql (U) Negative [facility] Glucose Ql (U) Negative [facility] Ketones Ql (U) Negative [facility] pH (U) 5 [pH] [facility] Specific gravity (U) [Rel density] 1.010 [facility] Urobilinogen (U) [Mass/Vol] Negative [facility] - Hematology and Cell countsOrdered By: Dorota James on 05-17-2025 Hemoglobin Ql (U) Negative [facility] - UrinalysisOrder ed By: Dorota James on 05-17-2025 Nitrite Ql (U) Positive [facility] Protein Ql (U) Negative [facility] MCV (mean corpuscular volume ) determinationOrdered By: Dorota James on 05-17-2025 MCV (RBC) [Entitic vol] 94.5 fL 81-[address] [facility] MR/Deangelo 05-17-2025 MR/OTILIA [facility] [address], [address] [place] [address] OFFICE VISIT Date of Service: 05/17/25 MR#: [id number] Acct: [id number] Name: GUMARO HUFF Rep #: [id number] : 1945 Provider: Dr. 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 [facility] Medical History (Updated 05/17/25 @ 11:47 by [...] dizziness, weakness, (more content not included)... Normal [facility] Mean corpuscular hemoglobin (MCH) determinationOrdered By: Dorota James on 05-17-2025 MCH (RBC) [Entitic mass] 28.7 pg 27.0-32.0 [facility] Mean corpuscular hemoglobin concentration (MCHC) determinationOrdered By: Dorota James on 05-17-2025 MCHC (RBC) [Mass/Vol] 30.4 g/dL Low 32-36 [facility] Mean platelet volume determi nationOrdered By: Dorota James on 05-17-2025 Platelet mean volume (Bld) [Entitic vol] 8.8 fL 6.2-12.0 [facility] Monocyte percentageOrdered B y: Dorota James on 05-17-2025 Monocytes/100 WBC (Bld) 6.5 % 0-[address] [facility] Neutrophil percentageOrdered By: Dorota James on 05-17-2025 Neutrophils/100 WBC (Bld) 61.1 % 47-70 [facility] No Panel InformationOrdered By: Dorota James on 05-17-2025 Urine Leukocytes Positive [facility] Urine Non-Hemolyzed Blood Negative [facility] Nucleated red blood cell per centageOrdered By: Dorota James on 05-17-2025 Nucleated RBC/100 WBC (Bld) [Ratio] 0 % 0-5 [facility] Platelet countOrdered By: Manuel James on 05-17-2025 Platelets (Bld) [#/Vol] 220 10*3/uL 150-450 [facility] Potassium measurement (mass/ volume)Ordered By: Dorota James on 05-17-2025 Potassium (Unsp spec) [Mass/Vol] 4.7 mmol/L 3.3-5.1 [facility] RBC Auto (Bld) [#/Vol]Ordere d By: Dorota James on 05-17-2025 RBC (Bld) [#/Vol] 4.21 10*6/uL 4.2-5.4 [facility] Serum creatinine measurement (mass/volume)Ordered By: Dorota James on 05-17-2025 Creatinine [Mass/Vol] 0.73 mg/dL Normal 0.70-1.20 [facility] Comment on above: Performed By: #### L 500.2500, L500.3400, L100.0500 #### [facility] [address] [place], [address] Serum glucose measurement (m ass/volume)Ordered By: Dorota James on 05-17-2025 Glucose [Mass/Vol] 179 mg/dL High 70-99 [facility] Comment on above: Performed By: #### L 500.2500, L500.3400, L100.0500 #### [facility] [address] [place], [address] Serum or plasma calcium jacqueline urement (mass/volume)Ordered By: Dorota James on 05-17-2025 Calcium [Mass/Vol] 9.5 mg/dL Normal 7.6-11.0 [facility] Comment on above: Performed By: #### L 500.2500, L500.3400, L100.0500 #### [facility] [address] [place], [address] Serum or plasma urea nitroge n measurement (mass/volume)Ordered By: Dorota James on 05-17-2025 Urea nitrogen [Mass/Vol] 10 mg/dL Normal 4-19 [facility] Comment on above: Performed By: #### L 500.2500, L500.3400, L100.0500 #### [facility] [address] [place], [address] Sodium levelOrdered By: Sarah James on 05-17-2025 Sodium [Moles/Vol] 137 mmol/L Normal 133-145 [facility] Comment on above: Performed By: #### L 500.2500, L500.3400, L100.0500 #### [facility] [address] [place], [address] White blood cell (WBC) count Ordered By: Dorota James on 05-17-2025 WBC (Bld) [#/Vol] 7.0 10*3/uL 4.4-11.0 [facility] Abdomen/Pelvis without Conto n 03-31-2025 Abdomen/Pelvis without Cont [facility] Imaging Services [address] [place] [address] Abdomen/Pelvis without Cont MR#: [id number] Acct: [id number] Name: GUMARO HUFF Rep #: [id number] : 1945 F 80 From: Douglas ceron MD PCP: Dr. Balwinder Alves MD Status: REG CLI Study: Abdomen/Pelvis without Cont Date of Exam: 03/06 04/28 Exam# [id number] Ordering Dr: Dorota James MD PROCEDURE: ABDOMEN/PELVIS [...] Sigmoid diverticulosis. Status post cholecystectomy. Reading Location: [id number] CC: Dr. Dorota James MD; Dr. Balwinder Alves MD Experimental Machinist: Signed Normal [facility] Anion gap in Serum or Plasma Ordered By: Balwinder Alves on 03-16-2025 Anion gap [Moles/Vol] 11 mmol/L - [facility] BUN/creatinine ratioOrdered By: Balwinder Alves on 03-16-2025 Urea nitrogen/Creatinine [Mass ratio] 13.7 mg/mg - [facility] Basic Metabolic Profile (BMP )on 03-16-2025 BUN/CRE 13.7 RATIO Normal - [facility] Comment on above: Order Comment: 102-2 Performed By: #### L 500.2500, L100.0100 #### [facility] [address] [place], [address] Calcium [Mass/Vol] 9.6 mg/dL Normal 7.6-11.0 [facility] Comment on above: Order Comment: 102-2 Performed By: #### L 500.2500, L100.0100 #### [facility] [address] [place], [address] Chloride [Moles/Vol] 99 mmol/L Normal 98-108 [facility] Comment on above: Order Comment: 102-2 Performed By: #### L 500.2500, L100.0100 #### [facility] [address] [place], [address] CO2 [Moles/Vol] 28.0 mmol/L Normal 21.0-32.0 [facility] Comment on above: Order Comment: 102-2 Performed By: #### L 500.2500, L100.0100 #### [facility] [address] [place], [address] Creatinine [Mass/Vol] 0.67 mg/dL Low 0.70-1.20 [facility] Comment on above: Order Comment: 102-2 Performed By: #### L 500.2500, L100.0100 #### [facility] [address] [place], [address] GAP 11 Normal 5-15 [facility] Comment on above: Order Comment: 102-2 Performed By: #### L 500.2500, L100.0100 #### [facility] [address] [place], [address] GFR/1.73 sq M.predicted among non-blacks MDRD (S/P/Bld) [Vol rate/Area] 87 mL/min/{1.73_m2} Normal >60 [facility] Comment on above: Order Comment: 102-2 Result Comment: mL/m in/1.73m2 CKD-EPI Creatinine Equation (2020) Performed By: #### L 500.2500, L100.0100 #### [facility] [address] [place], [address] Glucose [Mass/Vol] 222 mg/dL High 70-99 [facility] Comment on above: Order Comment: 102-2 Performed By: #### L 500.2500, L100.0100 #### [facility] [address] [place], [address] Potassium [Moles/Vol] 4.3 mmol/L Normal 3.3-5.1 [facility] Comment on above: Order Comment: 102-2 Performed By: #### L 500.2500, L100.0100 #### [facility] [address] [place], [address] Sodium [Moles/Vol] 139 mmol/L Normal 133-145 [facility] Comment on above: Order Comment: 102-2 Performed By: #### L 500.2500, L100.0100 #### [facility] [address] [place], [address] Urea nitrogen [Mass/Vol] 9 mg/dL Normal 4-19 [facility] Comment on above: Order Comment: 102-2 Performed By: #### L 500.2500, L100.0100 #### [facility] [address] [place], [address] CBC-Complete Blood Cnt No Di ffon 03-16-2025 Erythrocyte distribution width (RBC) [Ratio] 15.1 % High 11.6-14.6 [facility] Comment on above: Order Comment: 102-2 Performed By: #### L 500.2500, L100.0100 #### [facility] [address] [place], [address] Hematocrit (Bld) [Volume fraction] 35.7 % Low 37-47 [facility] Comment on above: Order Comment: 102-2 Performed By: #### L 500.2500, L100.0100 #### [facility] [address] [place], [address] Hemoglobin (Bld) [Mass/Vol] 10.9 g/dL Low 12.0-15.0 [facility] Comment on above: Order Comment: 102-2 Performed By: #### L 500.2500, L100.0100 #### [facility] [address] [place], [address] MCH (RBC) [Entitic mass] 28.8 pg Normal 27.0-32.0 [facility] Comment on above: Order Comment: 102-2 Performed By: #### L 500.2500, L100.0100 #### [facility] [address] [place], [address] MCHC (RBC) [Mass/Vol] 30.5 g/dL Low 32-36 [facility] Comment on above: Order Comment: 102-2 Performed By: #### L 500.2500, L100.0100 #### [facility] [address] [place], [address] MCV (RBC) [Entitic vol] 94.4 fL Normal 81-99 [facility] Comment on above: Order Comment: 102-2 Performed By: #### L 500.2500, L100.0100 #### [facility] [address] [place], [address] Platelet mean volume (Bld) [Entitic vol] 8.6 fL Normal 6.2-12.0 [facility] Comment on above: Order Comment: 102-2 Performed By: #### L 500.2500, L100.0100 #### [facility] [address] [place], [address] Platelets (Bld) [#/Vol] 187 10*3/uL Normal 150-450 [facility] Comment on above: Order Comment: 102-2 Performed By: #### L 500.2500, L100.0100 #### [facility] [address] [place], [address] RBC (Bld) [#/Vol] 3.78 10*6/uL Low 4.2-5.4 [facility] Comment on above: Order Comment: 102-2 Performed By: #### L 500.2500, L100.0100 #### [facility] [address] [place], [address] RDW SD 51.7 fl High 35.1-43.9 [facility] Comment on above: Order Comment: 102-2 Performed By: #### L 500.2500, L100.0100 #### [facility] [address] [place], [address] WBC (Bld) [#/Vol] 7.1 10*3/uL Normal 4.4-11.0 [facility] Comment on above: Order Comment: 102-2 Performed By: #### L 500.2500, L100.0100 #### [facility] [address] [place], [address] Carbon dioxide, total [Moles /volume] in Central venous bloodOrdered By: Balwinder Alves on 03-16-2025 CO2 [Moles/Vol] 28.0 mmol/L 21.0-32.0 [facility] Chloride assayOrdered By: Jen Alves on 03-16-2025 Chloride [Moles/Vol] 99 mmol/L 98-108 [facility] Erythrocyte distribution wid th ratioOrdered By: Balwinder Alves on 03-16-2025 Erythrocyte distribution width (RBC) [Ratio] 15.1 % High 11.6-14.6 [facility] Erythrocyte distribution wid th standard deviationOrdered By: Balwinder Alves on 03-16-2025 Erythrocyte distribution width (RBC) [Ratio] 51.7 fl High 35.1-43.9 [facility] Glomerular filtration rate ( GFR) estimation/1.73 sq m using serum, plasma, or whole bOrdered By: Balwinder Alves on 03-16-2025 GFR/1.73 sq M.predicted among non-blacks MDRD (S/P/Bld) [Vol rate/Area] 87 mL/min/{1.73_m2} >60 [facility] Comment on above: mL/min/1.73m2 CKD-EP I Creatinine Equation (2020) Hematocrit Auto (Bld) [Volum e fraction]Ordered By: Balwinder Alves on 03-16-2025 Hematocrit (Bld) [Volume fraction] 35.7 % Low 37-47 [facility] Hemoglobin measurementOrdere d By: Balwinder Alves on 03-16-2025 Hemoglobin (Bld) [Mass/Vol] 10.9 g/dL Low 12.0-15.0 [facility] MCV (mean corpuscular volume ) determinationOrdered By: Balwinder Alves on 03-16-2025 MCV (RBC) [Entitic vol] 94.4 fL 81-99 [facility] Mean corpuscular hemoglobin (MCH) determinationOrdered By: Balwinder Alves on 03-16-2025 MCH (RBC) [Entitic mass] 28.8 pg 27.0-32.0 [facility] Mean corpuscular hemoglobin concentration (MCHC) determinationOrdered By: Balwinder Alves on 03-16-2025 MCHC (RBC) [Mass/Vol] 30.5 g/dL Low 32-36 [facility] Mean platelet volume determi nationOrdered By: Balwinder Alves on 03-16-2025 Platelet mean volume (Bld) [Entitic vol] 8.6 fL 6.2-12.0 [facility] Platelet countOrdered By: Jen Alves on 03-16-2025 Platelets (Bld) [#/Vol] 187 10*3/uL 150-450 [facility] Potassium measurement (mass/ volume)Ordered By: Balwinder Alves on 03-16-2025 Potassium (Unsp spec) [Mass/Vol] 4.3 mmol/L 3.3-5.1 [facility] RBC Auto (Bld) [#/Vol]Ordere d By: Balwinder Alves on 03-16-2025 RBC (Bld) [#/Vol] 3.78 10*6/uL Low 4.2-5.4 [facility] Serum creatinine measurement (mass/volume)Ordered By: Balwinder Alves on 03-16-2025 Creatinine [Mass/Vol] 0.67 mg/dL Low 0.70-1.20 [facility] Serum glucose measurement (m ass/volume)Ordered By: Balwinder Alves on 03-16-2025 Glucose [Mass/Vol] 222 mg/dL High 70-99 [facility] Serum or plasma calcium jacqueline urement (mass/volume)Ordered By: Balwinder Alves on 03-16-2025 Calcium [Mass/Vol] 9.6 mg/dL 7.6-11.0 [facility] Serum or plasma urea nitroge n measurement (mass/volume)Ordered By: Balwinder Alves on 03-16-2025 Urea nitrogen [Mass/Vol] 9 mg/dL 4- [facility] Sodium levelOrdered By: Balwinder Alves on 03-16-2025 Sodium [Moles/Vol] 139 mmol/L 133-145 [facility] White blood cell (WBC) count Ordered By: Balwinder Alves on 03-16-2025 WBC (Bld) [#/Vol] 7.1 10*3/uL 4.4-11.0 [facility] Anion gap in Serum or Plasma Ordered By: Balwinder Alves on 03-15-2025 Anion gap [Moles/Vol] 9 mmol/L - [facility] BUN/creatinine ratioOrdered By: Balwinder Alves on 03-15-2025 Urea nitrogen/Creatinine [Mass ratio] 13.6 mg/mg 10- [facility] Basic Metabolic Profile (BMP )on 03-15-2025 BUN/CRE 13.6 RATIO Normal -20 [facility] Comment on above: Order Comment: 102.2 Performed By: #### L 100.0500, L500.2500 #### [facility] [address] [place], [address] Calcium [Mass/Vol] 9.6 mg/dL Normal 7.6-11.0 [facility] Comment on above: Order Comment: 102.2 Performed By: #### L 100.0500, L500.2500 #### [facility] [address] [place], [address] Chloride [Moles/Vol] 98 mmol/L Normal 98-108 [facility] Comment on above: Order Comment: 102.2 Performed By: #### L 100.0500, L500.2500 #### [facility] [address] [place], [address] CO2 [Moles/Vol] 30.1 mmol/L Normal 21.0-32.0 [facility] Comment on above: Order Comment: 102.2 Performed By: #### L 100.0500, L500.2500 #### [facility] [address] [place], [address] Creatinine [Mass/Vol] 0.79 mg/dL Normal 0.70-1.20 [facility] Comment on above: Order Comment: 102.2 Performed By: #### L 100.0500, L500.2500 #### [facility] [address] [place], [address] GAP 9 Normal 5-15 [facility] Comment on above: Order Comment: 102.2 Performed By: #### L 100.0500, L500.2500 #### [facility] [address] [place], [address] GFR/1.73 sq M.predicted among non-blacks MDRD (S/P/Bld) [Vol rate/Area] 75 mL/min/{1.73_m2} Normal >60 [facility] Comment on above: Order Comment: 102.2 Result Comment: mL/m in/1.73m2 CKD-EPI Creatinine Equation (2020) Performed By: #### L 100.0500, L500.2500 #### [facility] [address] [place], [address] Glucose [Mass/Vol] 188 mg/dL High 70-99 [facility] Comment on above: Order Comment: 102.2 Performed By: #### L 100.0500, L500.2500 #### [facility] [address] [place], [address] Potassium [Moles/Vol] 4.7 mmol/L Normal 3.3-5.1 [facility] Comment on above: Order Comment: 102.2 Performed By: #### L 100.0500, L500.2500 #### [facility] [address] [place], [address] Sodium [Moles/Vol] 137 mmol/L Normal 133-145 [facility] Comment on above: Order Comment: 102.2 Performed By: #### L 100.0500, L500.2500 #### [facility] [address] [place], [address] Urea nitrogen [Mass/Vol] 11 mg/dL Normal 4-19 [facility] Comment on above: Order Comment: 102.2 Performed By: #### L 100.0500, L500.2500 #### [facility] [address] [place], [address] CBC-Complete Blood Cnt No Di ffon 03-15-2025 Erythrocyte distribution width (RBC) [Ratio] 15.2 % High 11.6-14.6 [facility] Comment on above: Order Comment: 102.2 Performed By: #### L 100.0500, L500.2500 #### [facility] [address] [place], [address] Hematocrit (Bld) [Volume fraction] 36.2 % Low 37-47 [facility] Comment on above: Order Comment: 102.2 Performed By: #### L 100.0500, L500.2500 #### [facility] [address] [place], [address] Hemoglobin (Bld) [Mass/Vol] 11.1 g/dL Low 12.0-15.0 [facility] Comment on above: Order Comment: 102.2 Performed By: #### L 100.0500, L500.2500 #### [facility] [address] [place], [address] MCH (RBC) [Entitic mass] 28.9 pg Normal 27.0-32.0 [facility] Comment on above: Order Comment: 102.2 Performed By: #### L 100.0500, L500.2500 #### [facility] [address] [place], [address] MCHC (RBC) [Mass/Vol] 30.7 g/dL Low 32-36 [facility] Comment on above: Order Comment: 102.2 Performed By: #### L 100.0500, L500.2500 #### [facility] [address] [place], [address] MCV (RBC) [Entitic vol] 94.3 fL Normal 81-[address] [facility] Comment on above: Order Comment: 102.2 Performed By: #### L 100.0500, L500.2500 #### [facility] [address] [place], [address] Platelet mean volume (Bld) [Entitic vol] 8.4 fL Normal 6.2-12.0 [facility] Comment on above: Order Comment: 102.2 Performed By: #### L 100.0500, L500.2500 #### [facility] [address] [place], [address] Platelets (Bld) [#/Vol] 177 10*3/uL Normal 150-450 [facility] Comment on above: Order Comment: 102.2 Performed By: #### L 100.0500, L500.2500 #### [facility] [address] [place], [address] RBC (Bld) [#/Vol] 3.84 10*6/uL Low 4.2-5.4 [facility] Comment on above: Order Comment: 102.2 Performed By: #### L 100.0500, L500.2500 #### [facility] [address] [place], [address] RDW SD 52.1 fl High 35.1-43.9 [facility] Comment on above: Order Comment: 102.2 Performed By: #### L 100.0500, L500.2500 #### [facility] [address] [place], [address] WBC (Bld) [#/Vol] 7.1 10*3/uL Normal 4.4-11.0 [facility] Comment on above: Order Comment: 102.2 Performed By: #### L 100.0500, L500.2500 #### [facility] [address] [place], [address] Carbon dioxide, total [Moles /volume] in Central venous bloodOrdered By: Balwinder Alves on 03-15-2025 CO2 [Moles/Vol] 30.1 mmol/L 21.0-32.0 [facility] Chloride assayOrdered By: Jen Alves on 03-15-2025 Chloride [Moles/Vol] 98 mmol/L 98-108 [facility] Erythrocyte distribution wid th ratioOrdered By: Balwinder Alves on 03-15-2025 Erythrocyte distribution width (RBC) [Ratio] 15.2 % High 11.6-14.6 [facility] Erythrocyte distribution wid th standard deviationOrdered By: Balwinder Alves on 03-15-2025 Erythrocyte distribution width (RBC) [Ratio] 52.1 fl High 35.1-43.9 [facility] Glomerular filtration rate ( GFR) estimation/1.73 sq m using serum, plasma, or whole bOrdered By: Balwinder Alves on 03-15-2025 GFR/1.73 sq M.predicted among non-blacks MDRD (S/P/Bld) [Vol rate/Area] 75 mL/min/{1.73_m2} >60 [facility] Comment on above: mL/min/1.73m2 CKD-EP I Creatinine Equation (2020) Hematocrit Auto (Bld) [Volum e fraction]Ordered By: Balwinder Alves on 03-15-2025 Hematocrit (Bld) [Volume fraction] 36.2 % Low 37-47 [facility] Hemoglobin measurementOrdere d By: Balwinder Alves on 03-15-2025 Hemoglobin (Bld) [Mass/Vol] 11.1 g/dL Low 12.0-15.0 [facility] MCV (mean corpuscular volume ) determinationOrdered By: Balwinder Alves on 03-15-2025 MCV (RBC) [Entitic vol] 94.3 fL 81-[address] [facility] Mean corpuscular hemoglobin (MCH) determinationOrdered By: Balwinder Alves on 03-15-2025 MCH (RBC) [Entitic mass] 28.9 pg 27.0-32.0 [facility] Mean corpuscular hemoglobin concentration (MCHC) determinationOrdered By: Balwinder Alves on 03-15-2025 MCHC (RBC) [Mass/Vol] 30.7 g/dL Low 32-36 [facility] Mean platelet volume determi nationOrdered By: Balwinder Alves on 03-15-2025 Platelet mean volume (Bld) [Entitic vol] 8.4 fL 6.2-12.0 [facility] Platelet countOrdered By: Jen Alves on 03-15-2025 Platelets (Bld) [#/Vol] 177 10*3/uL 150-450 [facility] Potassium measurement (mass/ volume)Ordered By: Balwinder Alves on 03-15-2025 Potassium (Unsp spec) [Mass/Vol] 4.7 mmol/L 3.3-5.1 [facility] RBC Auto (Bld) [#/Vol]Ordere d By: Balwinder Alves on 03-15-2025 RBC (Bld) [#/Vol] 3.84 10*6/uL Low 4.2-5.4 [facility] Serum creatinine measurement (mass/volume)Ordered By: Balwinder Alves on 03-15-2025 Creatinine [Mass/Vol] 0.79 mg/dL 0.70-1.20 [facility] Serum glucose measurement (m ass/volume)Ordered By: Balwinder Alves on 03-15-2025 Glucose [Mass/Vol] 188 mg/dL High 70-99 [facility] Serum or plasma calcium jacqueline urement (mass/volume)Ordered By: Balwinder Alves on 03-15-2025 Calcium [Mass/Vol] 9.6 mg/dL 7.6-11.0 [facility] Serum or plasma urea nitroge n measurement (mass/volume)Ordered By: Balwinder Alves on 03-15-2025 Urea nitrogen [Mass/Vol] 11 mg/dL 4-19 [facility] Sodium levelOrdered By: Balwinder Alves on 03-15-2025 Sodium [Moles/Vol] 137 mmol/L 133-145 [facility] White blood cell (WBC) count Ordered By: Balwinder Alves on 03-15-2025 WBC (Bld) [#/Vol] 7.1 10*3/uL 4.4-11.0 [facility] Urine Cultureon 03-06-2025 [facility] #1 POSSIBLE E. COLI 0157. UNABLE TO CONFIRM, TESTING DISCONTINUED AT [facility]. Urine Culture Copy of report sent to Infection Control Printer [id number] 03/04/25 1000 ANDREA. Urine Culture RESULTS CALLED TO XAVIER Flowers 03/06/25 Nayana Patterson. REPORT READ BACK BY . Urine Culture Urine Culture ESBL Escherichia coli [place] Count 80,000-100,000 MARKER ESBL producing OrganismA MARKER [...] [facility] [address] [place], [address] Bilirubin Test strip Ql (U)O rdered By: [...] [facility] [address] [place], [address] Clarity (U) Sl. Cloudy Normal Clear [facility] Comment on above: Order Comment: 102.2 Performed By: #### L 100.0500, L500.2500 #### [facility] [address] [place], [address] Color (U) Yellow Normal Yellow [facility] Comment on above: Order Comment: 102.2 Performed By: #### L 100.0500, L500.2500 #### [facility] [address] [place], [address] GLUCOSE, UR Normal Normal Normal [facility] Comment on above: Order Comment: 102.2 Performed By: #### L 100.0500, L500.2500 #### [facility] [address] [place], [address] KETONE UR Negative Normal Negative [facility] Comment on above: Order Comment: 102.2 Performed By: #### L 100.0500, L500.2500 #### [facility] [address] [place], [address] LEUK ESTERASE 500 /ul Abnormal Negative [facility] Comment on above: Order Comment: 102.2 Performed By: #### L 100.0500, L500.2500 #### [facility] [address] [place], [address] Nitrite Ql (U) Positive Abnormal Negative [facility] Comment on above: Order Comment: 102.2 Performed By: #### L 100.0500, L500.2500 #### [facility] [address] [place], [address] OCCULT BLOOD-UR 50 /ul Abnormal Negative [facility] Comment on above: Order Comment: 102.2 Performed By: #### L 100.0500, L500.2500 #### [facility] [address] [place], [address] pH UR 6.0 Normal 5.0 - 8.0 [facility] Comment on above: Order Comment: 102.2 Performed By: #### L 100.0500, L500.2500 #### [facility] [address] [place], [address] PROT DIPSTX 30 mg/dl Abnormal Negative [facility] Comment on above: Order Comment: 102.2 Performed By: #### L 100.0500, L500.2500 #### [facility] [address] [place], [address] SP.GR. DIPSTX 1.010 Normal 1.002-1.030 [facility] Comment on above: Order Comment: 102.2 Performed By: #### L 100.0500, L500.2500 #### [facility] [address] [place], [address] UROBILI Normal Normal Normal [facility] Comment on above: Order Comment: 102.2 Performed By: #### L 100.0500, L500.2500 #### [facility] [address] [place], [address] Urine clarityOrdered By: Javed Alves on 03-02-2025 [...] 03-02-2025 Urobilinogen Ql (U) Normal mg/dl Normal [facility] Urine Cultureon 02-10-2025 URC Copy of report sent to Infection Control Printer [id number] 02/09/25 Jamshid MENDEZ. Urine Culture RESULTS CALLED TO AUSTEN GARCIA 02/09/25 08Amari Barrera. REPORT READ BACK SAME. Urine Culture Urine Culture Urine Culture ESBL Escherichia coli [place] Count >100,000 MARKER ESBL producing OrganismA MARKER [...] [facility] [address] [place], [place], [id number] Bilirubin Test strip Ql (U)O rdered By: [...] [facility] [address] [place], [address] Color (U) Yellow Normal Yellow [facility] Comment on above: Order Comment: 102.2 Performed By: #### L 100.0500, L500.2500 #### [facility] [address] [place], [address] BILIRUBIN URINE Negative Normal Negative [facility] Comment on above: Order Comment: 102.2 Performed By: #### L 100.0500, L500.2500 #### [facility] [address] [place], [address] GLUCOSE, UR Normal Normal Normal [facility] Comment on above: Order Comment: 102.2 Performed By: #### L 100.0500, L500.2500 #### [facility] [address] [place], [address] KETONE UR Negative Normal Negative [facility] Comment on above: Order Comment: 102.2 Performed By: #### L 100.0500, L500.2500 #### [facility] [address] [place], [address] LEUK ESTERASE 500 /ul Abnormal Negative [facility] Comment on above: Order Comment: 102.2 Performed By: #### L 100.0500, L500.2500 #### [facility] [address] [place], [address] Nitrite Ql (U) Positive Abnormal Negative [facility] Comment on above: Order Comment: 102.2 Performed By: #### L 100.0500, L500.2500 #### [facility] [address] [place], [address] OCCULT BLOOD-UR 25 /ul Abnormal Negative [facility] Comment on above: Order Comment: 102.2 Performed By: #### L 100.0500, L500.2500 #### [facility] [address] [place], [address] pH UR 6.5 Normal 5.0 - 8.0 [facility] Comment on above: Order Comment: 102.2 Performed By: #### L 100.0500, L500.2500 #### [facility] [address] [place], [address] PROT DIPSTX 15 mg/dl Abnormal Negative [facility] Comment on above: Order Comment: 102.2 Performed By: #### L 100.0500, L500.2500 #### [facility] [address] [place], [address] SP.GR. DIPSTX 1.005 Normal 1.002-1.030 [facility] Comment on above: Order Comment: 102.2 Performed By: #### L 100.0500, L500.2500 #### [facility] [address] [place], [address] UROBILI Normal Normal Normal [facility] Comment on above: Order Comment: 102.2 Performed By: #### L 100.0500, L500.2500 #### [facility] [address] [place], [address] Urine clarityOrdered By: Javed Alves on 02-07-2025 [...] 02-07-2025 Urobilinogen Ql (U) Normal mg/dl Normal [facility] Urine Cultureon 01-27-2025 URC STRAIGHT CATH #1 Possible E.coli 0157. Confirmation testing unable to be performed, test discontinued at [facility]. Urine Culture RESULTS CALLED TO HEATHER Herrera 01/27/25 Nicole Patterson. REPORT READ BACK BY . Urine Culture Copy of report sent to Infection Control Printer [id number] 01/27/25 1041 ESSENCE. Urine Culture ESBL Escherichia coli Holland Count 80,000-100,000 MARKER ESBL producing OrganismA MARKER ESBL producing OrganismA [place] Count 50,000-80,000 Proteus mirabilis Amikacin Islt PREM [facility] [address] [place], [address] Urinalysis, Completeon 01-24 BILIRUBIN URINE Negative Normal Negative [facility] Comment on above: Order Comment: 102.2 Performed By: #### L 100.0500, L500.2500 #### [facility] [address] [place], [address] Clarity (U) Sl. Cloudy Normal Clear [facility] Comment on above: Order Comment: 102.2 Performed By: #### L 100.0500, L500.2500 #### [facility] [address] [place], [address] Color (U) Yellow Normal Yellow [facility] Comment on above: Order Comment: 102.2 Performed By: #### L 100.0500, L500.2500 #### [facility] [address] [place], [address] GLUCOSE, UR Normal Normal Normal [facility] Comment on above: Order Comment: 102.2 Performed By: #### L 100.0500, L500.2500 #### [facility] [address] [place], [address] KETONE UR Negative Normal Negative [facility] Comment on above: Order Comment: 102.2 Performed By: #### L 100.0500, L500.2500 #### [facility] [address] [place], [address] LEUK ESTERASE 500 /ul Abnormal Negative [facility] Comment on above: Order Comment: 102.2 Performed By: #### L 100.0500, L500.2500 #### [facility] [address] [place], [address] Nitrite Ql (U) Positive Abnormal Negative [facility] Comment on above: Order Comment: 102.2 Performed By: #### L 100.0500, L500.2500 #### [facility] [address] [place], [address] OCCULT BLOOD-UR 50 /ul Abnormal Negative [facility] Comment on above: Order Comment: 102.2 Performed By: #### L 100.0500, L500.2500 #### [facility] [address] [place], [address] pH UR 6.5 Normal 5.0 - 8.0 [facility] Comment on above: Order Comment: 102.2 Performed By: #### L 100.0500, L500.2500 #### [facility] [address] [place], [address] PROT DIPSTX 15 mg/dl Abnormal Negative [facility] Comment on above: Order Comment: 102.2 Performed By: #### L 100.0500, L500.2500 #### [facility] [address] [place], [address] SP.GR. DIPSTX 1.010 Normal 1.002-1.030 [facility] Comment on above: Order Comment: 102.2 Performed By: #### L 100.0500, L500.2500 #### [facility] [address] [place], [address] UROBILI Normal Normal Normal [facility] Comment on above: Order Comment: 102.2 Performed By: #### L 100.0500, L500.2500 #### [facility] [address] [place], [address] Bilirubin Test strip Ql (U)O rdered By: Balwinder Alves on 01-23-2025 Bilirubin Ql (U) Negative Negative [facility] Epithelial cells.squamous LM Ql (Urine sed)Ordered By: Balwinder Alves on 01-23-2025 Epithelial cells.squamous LM.HPF (Urine sed) [#/Area] 0 /[HPF] 5-10 [facility] Glucose Ql (U)Ordered By: Jen Alves on 01-23-2025 Urine Glucose (UA) Normal mg/dl Normal [facility] Ketones Test strip Ql (U)Ord ered [...] Mucus Ql (Urine sed) 0 SEEN /hpf [facility] Nitrite Test strip Ql (U)Ord ered [...] Urine Occult Blood 50 /ul High Negative [facility] Urine clarityOrdered By: Javed Alves [...] 01-23-2025 Urobilinogen Ql (U) Normal mg/dl Normal [facility] Urobilinogen Ql (U)Ordered B y: Balwinder Alves on 01-23-2025 Urine Urobilinogen Normal mg/dl Normal [facility] White blood cell countOrdere d By: [...] sent to Infection [facility] Printer [id number] 01/11/25 4326 ASNIPES. ESBL Escherichia coli Holland Count 50,000-80,000 MARKER ESBL producing OrganismA MARKER ESBL producing OrganismA Holland Count 50,000-80,000 Escherichia coli Holland Count 50,000-80,000 ESBL Escherichia coli: REACTION Proteus [...] By: #### L 500.2500, L500.3400, L100.0500 #### [facility] [address] [place], [address] Bilirubin Test strip Ql (U)O rdered By: Balwinder Alves on 01-09-2025 Bilirubin Ql (U) Negative Negative [facility] Glucose Ql (U)Ordered By: Jen Alves on 01-09-2025 Urine Glucose (UA) Normal mg/dl Normal [facility] Ketones Test strip Ql (U)Ord ered [...] By: #### L 500.2500, L500.3400, L100.0500 #### [facility] [address] [place], [address] Clarity (U) Cloudy Normal Clear [facility] Comment on above: Order Comment: 102.2 Performed By: #### L 500.2500, L500.3400, L100.0500 #### [facility] [address] [place], [address] Color (U) Yellow Normal Yellow [facility] Comment on above: Order Comment: 102.2 Performed By: #### L 500.2500, L500.3400, L100.0500 #### [facility] [address] [place], [address] GLUCOSE, UR Normal Normal Normal [facility] Comment on above: Order Comment: 102.2 Performed By: #### L 500.2500, L500.3400, L100.0500 #### [facility] [address] [place], [address] KETONE UR Negative Normal Negative [facility] Comment on above: Order Comment: 102.2 Performed By: #### L 500.2500, L500.3400, L100.0500 #### [facility] [address] [place], [address] LEUK ESTERASE 500 /ul Abnormal Negative [facility] Comment on above: Order Comment: 102.2 Performed By: #### L 500.2500, L500.3400, L100.0500 #### [facility] [address] [place], [address] Nitrite Ql (U) Positive Abnormal Negative [facility] Comment on above: Order Comment: 102.2 Performed By: #### L 500.2500, L500.3400, L100.0500 #### [facility] [address] [place], [address] OCCULT BLOOD-UR 150 /ul Abnormal Negative [facility] Comment on above: Order Comment: 102.2 Performed By: #### L 500.2500, L500.3400, L100.0500 #### [facility] [address] [place], [address] pH UR 6.5 Normal 5.0 - 8.0 [facility] Comment on above: Order Comment: 102.2 Performed By: #### L 500.2500, L500.3400, L100.0500 #### [facility] [address] [place], [address] PROT DIPSTX 30 mg/dl Abnormal Negative [facility] Comment on above: Order Comment: 102.2 Performed By: #### L 500.2500, L500.3400, L100.0500 #### [facility] [address] [place], [address] SP.GR. DIPSTX 1.010 Normal 1.002-1.030 [facility] Comment on above: Order Comment: 102.2 Performed By: #### L 500.2500, L500.3400, L100.0500 #### [facility] [address] [place], [place], [id number] UROBILI Normal Normal Normal [facility] Comment on above: Order Comment: 102.2 Performed By: #### L 500.2500, L500.3400, L100.0500 #### [facility] [address] [place], [place], [id number] Urine blood detectionOrdered By: Balwinder Alves on 01-09-2025 Urine Occult Blood 150 /ul High Negative [facility] Urine clarityOrdered By: Javed Alves [...] 01-09-2025 Urobilinogen Ql (U) Normal mg/dl Normal [facility] Urobilinogen Ql (U)Ordered B y: Balwinder Alves on 01-09-2025 Urine Urobilinogen Normal mg/dl Normal [facility] Urine Cultureon 01-07-2025 URC #2 Possible E.coli 0157. Unable to send to [facility] for confirmation testing due to new [facility] policies regarding serotyping and virulence profiling. Urine Culture Copy of report sent to Infection Control Printer [id number] 01/06/25 131Shannan MENDEZ. Urine Culture RESULTS CALLED TO TRISH BOYCE 01/06/25 1321 Alesia Barrera. REPORT READ BACK . Proteus mirabilis Holland Count 50,000-80,000 ESBL Escherichia coli ESBL Escherichia [...] on above: Performed By: #### M 100.2200, L4.2010 #### [facility] [address] [place], [address] Urinalysis, Routine (Dipstic k)on 01-03-2025 BILIRUBIN URINE Negative Normal Negative [facility] Comment on above: Order Comment: CLEAN CATCH Performed By: #### M 100.2200, L400.2010 #### [facility] [address] [place], [address] Clarity (U) Sl. Cloudy Normal Clear [facility] Comment on above: Order Comment: CLEAN CATCH Performed By: #### M 100.2199, L4 #### [facility] [address] [place], [address] Color (U) Yellow Normal Yellow [facility] Comment on above: Order Comment: CLEAN CATCH Performed By: #### M 100.2199, L4 #### [facility] [address] [place], [address] GLUCOSE, UR Normal Normal Normal [facility] Comment on above: Order Comment: CLEAN CATCH Performed By: #### M , L4 #### [facility] [address] [place], [address] KETONE UR Negative Normal Negative [facility] Comment on above: Order Comment: CLEAN CATCH Performed By: #### M , L4 #### [facility] [address] [place], [address] LEUK ESTERASE 500 /ul Abnormal Negative [facility] Comment on above: Order Comment: CLEAN CATCH Performed By: #### M , L4 #### [facility] [address] [place], [address] Nitrite Ql (U) Positive Abnormal Negative [facility] Comment on above: Order Comment: CLEAN CATCH Performed By: #### M 100.2199, L4 #### [facility] [address] [place], [address] OCCULT BLOOD-UR 150 /ul Abnormal Negative [facility] Comment on above: Order Comment: CLEAN CATCH Performed By: #### M , L4 #### [facility] [address] [place], [address] pH UR 6.5 Normal 5.0 - 8.0 [facility] Comment on above: Order Comment: CLEAN CATCH Performed By: #### M 100.2200, L400.2010 #### [facility] [address] [place], [address] PROT DIPSTX 30 mg/dl Abnormal Negative [facility] Comment on above: Order Comment: CLEAN CATCH Performed By: #### M 100.2200, L400.2010 #### [facility] [address] [place], [address] SP.GR. DIPSTX 1.010 Normal 1.002-1.030 [facility] Comment on above: Order Comment: CLEAN CATCH Performed By: #### M 100.2200, L400.2010 #### [facility] [address] [place], [address] UROBILI Normal Normal Normal [facility] Comment on above: Order Comment: CLEAN CATCH Performed By: #### M 100.2200, L400.2010 #### [facility] [address] [place], [address] Bilirubin Test strip Ql (U)O rdered By: Balwinder Alves on 01-02-2025 Bilirubin Ql (U) Negative Negative [facility] Glucose Ql (U)Ordered By: Jen Alves on 01-02-2025 Urine Glucose (UA) Normal mg/dl Normal [facility] Ketones Test strip Ql (U)Ord ered [...] Urine Occult Blood 150 /ul High Negative [facility] Urine clarityOrdered By: Javed Alves [...] 01-02-2025 Urobilinogen Ql (U) Normal mg/dl Normal [facility] Urobilinogen Ql (U)Ordered B y: Balwinder Alves on 01-02-2025 Urine Urobilinogen Normal mg/dl Normal [facility] Absolute lymphocyte countOrd ered By: Balwinder Alves on 12-26-2024 Lymphocytes Auto (Unsp spec) [#/Vol] 1.77 10*3/uL 0.83-4.51 [facility] Absolute neutrophil countOrd ered By: Balwinder Alves on 12-26-2024 Neutrophils (Bld) [#/Vol] 4.6 10*3/uL 2.0-7.7 [facility] Anion gap in Serum or Plasma Ordered By: Balwinder Alves on 12-26-2024 Anion gap [Moles/Vol] 9 mmol/L 5-15 [facility] Automated lymphocyte count a s percentage of total leukocytesOrdered By: Balwinder Alves on 12-26-2024 Lymphocytes/100 WBC Auto (Unsp spec) 24.8 % 19-41 [facility] BUN/creatinine [...] [facility] [address] [place], [address] Calcium [Mass/Vol] 9.1 mg/dL Normal 7.6-11.0 [facility] Comment on above: Order Comment: 102-2 Performed By: #### L 500.2500, L100.0100 #### [facility] [address] [place], [address] Chloride [Moles/Vol] 99 mmol/L Normal 98-108 [facility] Comment on above: Order Comment: 102-2 Performed By: #### L 500.2500, L100.0100 #### [facility] [address] [place], [address] CO2 [Moles/Vol] 29.0 mmol/L Normal 21.0-32.0 [facility] Comment on above: Order Comment: 102-2 Performed By: #### L 500.2500, L100.0100 #### [facility] [address] [place], [address] Creatinine [Mass/Vol] 0.67 mg/dL Low 0.70-1.20 [facility] Comment on above: Order Comment: 102-2 Performed By: #### L 500.2500, L100.0100 #### [facility] [address] [place], [address] GAP 9 Normal 5-15 [facility] Comment on above: Order Comment: 102-2 Performed By: #### L 500.2500, L100.0100 #### [facility] [address] [place], [address] GFR/1.73 sq M.predicted among non-blacks MDRD (S/P/Bld) [Vol rate/Area] 88 mL/min/{1.73_m2} Normal >60 [facility] Comment on above: Order Comment: 102-2 Result Comment: mL/m in/1.73m2 CKD-EPI Creatinine Equation (2020) Performed By: #### L 500.2500, L100.0100 #### [facility] [address] [place], [address] Glucose [Mass/Vol] 215 mg/dL High 70-99 [facility] Comment on above: Order Comment: 102-2 Performed By: #### L 500.2500, L100.0100 #### [facility] [address] [place], [address] Potassium [Moles/Vol] 4.6 mmol/L Normal 3.3-5.1 [facility] Comment on above: Order Comment: 102-2 Performed By: #### L 500.2500, L100.0100 #### [facility] [address] [place], [address] Sodium [Moles/Vol] 137 mmol/L Normal 133-145 [facility] Comment on above: Order Comment: 102-2 Performed By: #### L 500.2500, L100.0100 #### [facility] [address] [place], [address] Urea nitrogen [Mass/Vol] 8 mg/dL Normal 4-19 [facility] Comment on above: Order Comment: 102-2 Performed By: #### L 500.2500, L100.0100 #### [facility] [address] [place], [address] Basophil percentageOrdered B y: Balwinder Alves on 12-26-2024 Basophils/100 WBC (Bld) 0.6 % 0-[address] [facility] CBC W/Diff, Automatedon 03-2 Absolute Lymph 1.77 X10 3/uL Normal 0.83-4.51 [facility] Comment on above: Order Comment: 102-2 Performed By: #### L 500.2500, L100.0100 #### [facility] [address] [place], [address] Absolute Neut 4.6 X10 3/uL Normal 2.0-7.7 [facility] Comment on above: Order Comment: 102-2 Performed By: #### L 500.2500, L100.0100 #### [facility] [address] [place], [address] Basophils/100 WBC (Bld) 0.6 % Normal 0-[address] [facility] Comment on above: Order Comment: 102-2 Performed By: #### L 500.2500, L100.0100 #### [facility] [address] [place], [address] Eosinophils/100 WBC (Bld) 2.9 % Normal 0-5 [facility] Comment on above: Order Comment: 102-2 Performed By: #### L 500.2500, L100.0100 #### [facility] [address] [place], [address] Erythrocyte distribution width (RBC) [Ratio] 13.9 % Normal 11.6-14.6 [facility] Comment on above: Order Comment: 102-2 Performed By: #### L 500.2500, L100.0100 #### [facility] [address] [place], [address] Hematocrit (Bld) [Volume fraction] 35.6 % Low 37-47 [facility] Comment on above: Order Comment: 102-2 Performed By: #### L 500.2500, L100.0100 #### [facility] [address] [place], [address] Hemoglobin (Bld) [Mass/Vol] 10.9 g/dL Low 12.0-15.0 [facility] Comment on above: Order Comment: 102-2 Performed By: #### L 500.2500, L100.0100 #### [facility] [address] [place], [address] IG% 0.700 Normal 0.0-0.9 [facility] Comment on above: Order Comment: 102-2 Result Comment: IG% - Immature Granulocytes (promyelocytes, myelocytes and metamyelocytes) > 1% indicates that a LEFT SHIFT is Present. Performed By: #### L 500.2500, L100.0100 #### [facility] [address] [place], [address] Lymphocytes/100 WBC (Bld) 24.8 % Normal 19-41 [facility] Comment on above: Order Comment: 102-2 Performed By: #### L 500.2500, L100.0100 #### [facility] [address] [place], [address] MCH (RBC) [Entitic mass] 28.8 pg Normal 27.0-32.0 [facility] Comment on above: Order Comment: 102-2 Performed By: #### L 500.2500, L100.0100 #### [facility] [address] [place], [address] MCHC (RBC) [Mass/Vol] 30.6 g/dL Low 32-36 [facility] Comment on above: Order Comment: 102-2 Performed By: #### L 500.2500, L100.0100 #### [facility] [address] [place], [address] MCV (RBC) [Entitic vol] 93.9 fL Normal 81-99 [facility] Comment on above: Order Comment: 102-2 Performed By: #### L 500.2500, L100.0100 #### [facility] [address] [place], [address] Monocytes/100 WBC (Bld) 6.3 % Normal 0-[address] [facility] Comment on above: Order Comment: 102-2 Performed By: #### L 500.2500, L100.0100 #### [facility] [address] [place], [address] Neutrophils/100 WBC (Bld) 64.7 % Normal 47-70 [facility] Comment on above: Order Comment: 102-2 Performed By: #### L 500.2500, L100.0100 #### [facility] [address] [place], [address] Nucleated RBC (Bld) [#/Vol] 0 10*3/uL Normal 0-5 [facility] Comment on above: Order Comment: 102-2 Performed By: #### L 500.2500, L100.0100 #### [facility] [address] [place], [address] Platelet mean volume (Bld) [Entitic vol] 8.6 fL Normal 6.2-12.0 [facility] Comment on above: Order Comment: 102-2 Performed By: #### L 500.2500, L100.0100 #### [facility] [address] [place], [address] Platelets (Bld) [#/Vol] 221 10*3/uL Normal 150-450 [facility] Comment on above: Order Comment: 102-2 Performed By: #### L 500.2500, L100.0100 #### [facility] [address] [place], [address] RBC (Bld) [#/Vol] 3.79 10*6/uL Low 4.2-5.4 [facility] Comment on above: Order Comment: 102-2 Performed By: #### L 500.2500, L100.0100 #### [facility] [address] [place], [address] RDW SD 47.6 fl High 35.1-43.9 [facility] Comment on above: Order Comment: 102-2 Performed By: #### L 500.2500, L100.0100 #### [facility] [address] [place], [address] WBC (Bld) [#/Vol] 7.1 10*3/uL Normal 4.4-11.0 [facility] Comment on above: Order Comment: 102-2 Performed By: #### L 500.2500, L100.0100 #### [facility] [address] [place], [address] Carbon dioxide, total [Moles /volume] in Central venous bloodOrdered By: Balwinder Alves on 12-26-2024 CO2 [Moles/Vol] 29.0 mmol/L 21.0-32.0 [facility] Chloride assayOrdered By: Jen Alves on 12-26-2024 Chloride [Moles/Vol] 99 mmol/L 98-108 [facility] Eosinophil percentageOrdered By: Balwinder Alves on [...] granulocytes/100 WB C Auto (Bld)Ordered By: Balwinder Avles on 12-26-2024 Immature granulocytes/100 WBC (Bld) 0.700 [...] [Entitic vol] 93.9 fL 81-[address] [facility] Mean corpuscular hemoglobin (MCH) determinationOrdered By: Balwinder Alves on 12-26-2024 MCH (RBC) [Entitic mass] 28.8 pg 27.0-32.0 [facility] Mean corpuscular hemoglobin concentration (MCHC) determinationOrdered By: Balwinder Alves on 12-26-2024 MCHC (RBC) [Mass/Vol] 30.6 g/dL Low 32-36 [facility] Mean platelet volume determi nationOrdered By: Balwinder Alves on 12-26-2024 Platelet mean volume (Bld) [Entitic vol] 8.6 fL 6.2-12.0 [facility] Monocyte percentageOrdered B y: Balwinder Alves on 12-26-2024 Monocytes/100 WBC (Bld) 6.3 % 0-[address] [facility] Neutrophil percentageOrdered By: Balwinder Alves on [...] on 12-26-2024 Potassium [Moles/Vol] 4.6 mmol/L 3.3-5.1 [facility] Potassium measurement (mass/ volume)Ordered By: Balwinder Alves on 12-26-2024 Potassium (Unsp spec) [Mass/Vol] 4.6 mmol/L 3.3-5.1 [facility] RBC Auto (Bld) [#/Vol]Ordere d By: Balwinder Alves on 12-26-2024 RBC (Bld) [#/Vol] 3.79 10*6/uL Low 4.2-5.4 [facility] Serum creatinine measurement (mass/volume)Ordered By: Balwinder Alves on 12-26-2024 Creatinine [Mass/Vol] 0.67 mg/dL Low 0.70-1.20 [facility] Serum glucose measurement (m ass/volume)Ordered By: Balwinder Alves on 12-26-2024 Glucose [Mass/Vol] 215 mg/dL High 70-99 [facility] Serum or plasma calcium jacqueline urement (mass/volume)Ordered By: Balwinder Alves on 12-26-2024 Calcium [Mass/Vol] 9.1 mg/dL 7.6-11.0 [facility] Serum or plasma urea nitroge n measurement (mass/volume)Ordered By: Balwinder Alves on 12-26-2024 Urea nitrogen [Mass/Vol] 8 mg/dL 4- [facility] Sodium levelOrdered By: Balwinder Alves on 12-26-2024 Sodium [Moles/Vol] 137 mmol/L 133-145 [facility] White blood cell (WBC) count Ordered By: Balwinder Alves on 12-26-2024 WBC (Bld) [#/Vol] 7.1 10*3/uL 4.4-11.0 [facility] Anion gap in Serum or Plasma Ordered By: Balwinder Alves on 12-16-2024 Anion gap [Moles/Vol] 12 mmol/L - [facility] BUN/creatinine ratioOrdered By: Balwinder Alves on 12-16-2024 Urea nitrogen/Creatinine [Mass ratio] 12.7 mg/mg - [facility] Basic Metabolic Profile (BMP )on 12-16-2024 BUN/CRE 12.7 RATIO Normal 07-24 [facility] Comment on above: Performed By: #### M .2199, L4 #### [facility] [address] [place], [address] Calcium [Mass/Vol] 9.5 mg/dL Normal 7.6-11.0 [facility] Comment on above: Performed By: #### M .2199, L4 #### [facility] [address] [place], [address] Chloride [Moles/Vol] 98 mmol/L Normal 98-108 [facility] Comment on above: Performed By: #### M 100.2199, L4 #### [facility] [address] [place], [address] CO2 [Moles/Vol] 26.7 mmol/L Normal 21.0-32.0 [facility] Comment on above: Performed By: #### M 100.2199, L4 #### [facility] [address] [place], [address] Creatinine [Mass/Vol] 0.67 mg/dL Low 0.70-1.20 [facility] Comment on above: Performed By: #### M , #### [facility] [address] [place], [address] GAP 12 Normal 5-15 [facility] Comment on above: Performed By: #### M , #### [facility] [address] [place], [address] GFR/1.73 sq M.predicted among non-blacks MDRD (S/P/Bld) [Vol rate/Area] 88 mL/min/{1.73_m2} Normal >60 [facility] Comment on above: Result Comment: mL/m in/1.73m2 CKD-EPI Creatinine Equation (2020) Performed By: #### M , #### [facility] [address] [place], [address] Glucose [Mass/Vol] 201 mg/dL High 70-99 [facility] Comment on above: Performed By: #### M , #### [facility] [address] [place], [address] Potassium [Moles/Vol] 4.6 mmol/L Normal 3.3-5.1 [facility] Comment on above: Performed By: #### M , L4 #### [facility] [address] [place], [address] Sodium [Moles/Vol] 137 mmol/L Normal 133-145 [facility] Comment on above: Performed By: #### M , L4 #### [facility] [address] [place], [address] Urea nitrogen [Mass/Vol] 8 mg/dL Normal 4-19 [facility] Comment on above: Performed By: #### M 100.2200, L400.2010 #### [facility] [address] [place], [address] CBC-Complete Blood Cnt No Di ffon 12-16-2024 Erythrocyte distribution width (RBC) [Ratio] 13.8 % Normal 11.6-14.6 [facility] Comment on above: Performed By: #### L 500.2500, L501.9985, L500.4100, L100.0500, L506.1001 #### [facility] [address] [place], [address] Hematocrit (Bld) [Volume fraction] 36.2 % Low 37-47 [facility] Comment on above: Performed By: #### L 500.2500, L501.9985, L500.4100, L100.0500, L506.1001 #### [facility] [address] [place], [address] Hemoglobin (Bld) [Mass/Vol] 11.0 g/dL Low 12.0-15.0 [facility] Comment on above: Performed By: #### L 500.2500, L501.9985, L500.4100, L100.0500, L506.1001 #### [facility] [address] [place], [address] MCH (RBC) [Entitic mass] 28.2 pg Normal 27.0-32.0 [facility] Comment on above: Performed By: #### L 500.2500, L501.9985, L500.4100, L100.0500, L506.1001 #### [facility] [address] [place], [address] MCHC (RBC) [Mass/Vol] 30.4 g/dL Low 32-36 [facility] Comment on above: Performed By: #### L 500.2500, L501.9985, L500.4100, L100.0500, L506.1001 #### [facility] [address] [place], [address] MCV (RBC) [Entitic vol] 92.8 fL Normal 81-[address] [facility] Comment on above: Performed By: #### L 500.2500, L501.9985, L500.4100, L100.0500, L506.1001 #### [facility] [address] [place], [address] Platelet mean volume (Bld) [Entitic vol] 8.4 fL Normal 6.2-12.0 [facility] Comment on above: Performed By: #### L 500.2500, L501.9985, L500.4100, L100.0500, L506.1001 #### [facility] [address] [place], [address] Platelets (Bld) [#/Vol] 231 10*3/uL Normal 150-450 [facility] Comment on above: Performed By: #### L 500.2500, L501.9985, L500.4100, L100.0500, L506.1001 #### [facility] [address] [place], [address] RBC (Bld) [#/Vol] 3.90 10*6/uL Low 4.2-5.4 [facility] Comment on above: Performed By: #### L 500.2500, L501.9985, L500.4100, L100.0500, L506.1001 #### [facility] [address] [place], [address] RDW SD 47.0 fl High 35.1-43.9 [facility] Comment on above: Performed By: #### L 500.2500, L501.9985, L500.4100, L100.0500, L506.1001 #### [facility] [address] [place], [address] WBC (Bld) [#/Vol] 7.8 10*3/uL Normal 4.4-11.0 [facility] Comment on above: Performed By: #### L 500.2500, L501.9985, L500.4100, L100.0500, L506.1001 #### [facility] [address] [place], [address] Calculated very low density lipoprotein (VLDL) cholesterol [...] on 12-16-2024 Chloride [Moles/Vol] 98 mmol/L 98-108 [facility] Erythrocyte distribution wid th (RBC) [Ratio]Ordered [...] on above: Performed By: #### M 100.2200, L4.2010 #### [facility] [address] [place], [place], [id number] Hemoglobin A1c percentageOrd ered By: Balwinder Alves [...] [facility] [address] [place], [place], [id number] LDL calc ser/plasOrdered By: Balwinder Alves on 12-16-2024 Cholesterol in LDL [Mass/Vol] 22 mg/dL [facility] Comment on above: Akrfjtkyre=549-747 m g/dL & Higher Ngpl=974 mg/dL or greater LDL Cholesterol, Calculated 22 mg/dL [facility] Comment on above: Vkwjsohnzj=903-418 m g/dL & Higher Bzfq=378 mg/dL or greater Lipid Profileon 12-16-2024 CHOL:HDL 2.22 Normal [facility] Comment on above: Performed By: #### M .2199, #### [facility] [address] [place], [address] Cholesterol [Mass/Vol] 98 mg/dL Normal <=200 [facility] Comment on above: Result Comment: Chol esterol level, Desirable <200 mg/dL Borderline high cholesterol 200-239 mg/dL High cholesterol >=240 mg/dL Recommendations of the NCEP Adult Treatment Panel for the following risk-cutoff thresholds for the [place] population. Performed By: #### M , L4 #### [facility] [address] [place], [address] Cholesterol in HDL [Mass/Vol] 44 mg/dL Normal [facility] Comment on above: Result Comment: Matilde onal Cholesterol Education Program (NCEP) guidelines: <40 mg/dL: Low HDL-cholesterol (major risk factor for CHD) >= 60 mg/dL: High HDL-cholesterol (negative risk factor for CHD) HDL-cholesterol is affected by a number of factors, e.g. smoking, exercise, hormones, sex and age. Performed By: #### M .2199, L4 #### [facility] [address] [place], [address] Cholesterol in LDL [Mass/Vol] 22 mg/dL Normal [facility] Comment on above: Result Comment: Bord ducatb=110-751 mg/dL Higher Qaoa=007 mg/dL or greater Performed By: #### M 100.2199, L4 #### [facility] [address] [place], [address] Cholesterol in VLDL [Mass/Vol] 32 mg/dL Normal 5-40 [facility] Comment on above: Performed By: #### M 100.2200, L4.2010 #### [facility] [address] [place], [place], [address] Triglyceride [Mass/Vol] 162 mg/dL Normal [facility] Comment on above: Result Comment: The drugs N-Acetylcysteine and Metamizole may falsely depress this assay. Normal range: <150 mg/dL Borderline High: 150-199 mg/dL High: 200-499 mg/dL Very High: >500 mg/dL Performed By: #### M 100.2200, L400.2010 #### [facility] [address] [place], [place], [address] MCV (mean corpuscular volume ) determinationOrdered By: Balwinder Alves on 12-16-2024 MCV (RBC) [Entitic vol] 92.8 fL 81-99 [facility] Mean corpuscular hemoglobin (MCH) determinationOrdered By: Balwinder Alves on 12-16-2024 MCH (RBC) [Entitic mass] 28.2 pg 27.0-32.0 [facility] Mean corpuscular hemoglobin concentration (MCHC) determinationOrdered By: Balwinder Alves on 12-16-2024 MCHC (RBC) [Mass/Vol] 30.4 g/dL Low 32-36 [facility] Mean platelet volume determi nationOrdered By: Balwinder Alves on 12-16-2024 Platelet mean volume (Bld) [Entitic vol] 8.4 fL 6.2-12.0 [facility] Platelet countOrdered By: Jen Alves on 12-16-2024 Platelets (Bld) [#/Vol] 231 10*3/uL 150-450 [facility] Potassium (Unsp spec) [Mass/ Vol]Ordered By: Balwinder Alves on 12-16-2024 Potassium [Moles/Vol] 4.6 mmol/L 3.3-5.1 [facility] Potassium measurement (mass/ volume)Ordered By: Balwinder Alves on 12-16-2024 Potassium (Unsp spec) [Mass/Vol] 4.6 mmol/L 3.3-5.1 [facility] RBC Auto (Bld) [#/Vol]Ordere d By: Balwinder Alves on 12-16-2024 RBC (Bld) [#/Vol] 3.90 10*6/uL Low 4.2-5.4 [facility] Screening total cholesterol/ high density lipoprotein (HDL) cholesterol ratioOrdered By: Balwinder Alves on 12-16-2024 Cholesterol.total/Jany sterol in HDL [Mass ratio] 2.22 {ratio} [facility] Serum creatinine measurement (mass/volume)Ordered By: Balwinder Alves on 12-16-2024 Creatinine [Mass/Vol] 0.67 mg/dL Low 0.70-1.20 [facility] Serum glucose measurement (m ass/volume)Ordered By: Balwinder Alves on 12-16-2024 Glucose [Mass/Vol] 201 mg/dL High 70-99 [facility] Serum or plasma calcium jacqueline urement (mass/volume)Ordered By: Balwinder Alves on 12-16-2024 Calcium [Mass/Vol] 9.5 mg/dL 7.6-11.0 [facility] Serum or plasma cholesterol in [...] on 12-16-2024 Cholesterol [Mass/Vol] 98 mg/dL <201 [facility] Comment on above: Cholesterol level, D esirable <200 mg/dLBorderline high cholesterol 200-239 mg/dLHigh cholesterol >=240 mg/dLRecommendations of the NCEP Adult Treatment Panel for the following risk-cutoff thresholds for the [place] population. Serum or plasma urea nitroge n measurement (mass/volume)Ordered By: Balwinder Alves on 12-16-2024 Urea nitrogen [Mass/Vol] 8 mg/dL 4-19 [facility] Sodium levelOrdered By: Balwinder Alves on 12-16-2024 Sodium [Moles/Vol] 137 mmol/L 133-145 [facility] Triglycerides measurementOrd ered By: Balwinder Alves on 12-16-2024 Triglyceride [Mass/Vol] 162 mg/dL <199 [facility] Comment on above: The drugs N-Acetylcy steine and Metamizole may falsely depress this assay. Normal range: <150 mg/dLBorderline High: 150-199 mg/dLHigh: 200-499 mg/dLVery High: >500 mg/dL Vitamin D, 25-hydroxyOrdered By: Balwinder Alves on 12-16-2024 Vitamin D 25-Hydroxy 31.6 ng/mL 30-100 [facility] Comment on above: Vitamin D StatusDefi ciency: <20 ng/mL (50nmol/L)Insufficiency: 20-30 ng/mL (50-75 nmol/L)Sufficiency: 30-100 ng/mL (75-250 nmol/L)Toxicity: >100 ng/mL (>250 nmol/L) White blood cell (WBC) count Ordered By: Balwinder Alves on 12-16-2024 WBC (Bld) [#/Vol] 7.8 10*3/uL 4.4-11.0 [facility] Absolute lymphocyte countOrd ered By: [...] 12-14-2024 Anion gap [Moles/Vol] 11 mmol/L 5-15 [facility] Automated lymphocyte count a s percentage of total leukocytesOrdered By: Balwinder Alves on 12-14-2024 Lymphocytes/100 WBC Auto (Unsp spec) 28.7 % - [facility] BUN/creatinine ratioOrdered By: Balwinder Alves on 12-14-2024 Urea nitrogen/Creatinine [Mass ratio] 10.3 mg/mg - [facility] Basic Metabolic Profile (BMP )on 12-14-2024 BUN/CRE 10.3 RATIO Normal 07-24 [facility] Comment on above: Order Comment: 102.2 Performed By: #### L 100.0500, L500.2500 #### [facility] [address] [place], [address] Calcium [Mass/Vol] 9.2 mg/dL Normal 7.6-11.0 [facility] Comment on above: Order Comment: 102.2 Performed By: #### L 100.0500, L500.2500 #### [facility] [address] [place], [address] Chloride [Moles/Vol] 101 mmol/L Normal 98-108 [facility] Comment on above: Order Comment: 102.2 Performed By: #### L 100.0500, L500.2500 #### [facility] [address] [place], [address] CO2 [Moles/Vol] 27.6 mmol/L Normal 21.0-32.0 [facility] Comment on above: Order Comment: 102.2 Performed By: #### L 100.0500, L500.2500 #### [facility] [address] [place], [address] Creatinine [Mass/Vol] 0.68 mg/dL Low 0.70-1.20 [facility] Comment on above: Order Comment: 102.2 Performed By: #### L 100.0500, L500.2500 #### [facility] [address] [place], [address] GAP 11 Normal 5-15 [facility] Comment on above: Order Comment: 102.2 Performed By: #### L 100.0500, L500.2500 #### [facility] [address] [place], [address] GFR/1.73 sq M.predicted among non-blacks MDRD (S/P/Bld) [Vol rate/Area] 88 mL/min/{1.73_m2} Normal >60 [facility] Comment on above: Order Comment: 102.2 Result Comment: mL/m in/1.73m2 CKD-EPI Creatinine Equation (2020) Performed By: #### L 100.0500, L500.2500 #### [facility] [address] [place], [address] Glucose [Mass/Vol] 177 mg/dL High 70-99 [facility] Comment on above: Order Comment: 102.2 Performed By: #### L 100.0500, L500.2500 #### [facility] [address] [place], [address] Potassium [Moles/Vol] 4.3 mmol/L Normal 3.3-5.1 [facility] Comment on above: Order Comment: 102.2 Performed By: #### L 100.0500, L500.2500 #### [facility] [address] [place], [address] Sodium [Moles/Vol] 139 mmol/L Normal 133-145 [facility] Comment on above: Order Comment: 102.2 Performed By: #### L 100.0500, L500.2500 #### [facility] [address] [place], [address] Urea nitrogen [Mass/Vol] 7 mg/dL Normal 4-19 [facility] Comment on above: Order Comment: 102.2 Performed By: #### L 100.0500, L500.2500 #### [facility] [address] [place], [address] Basophil percentageOrdered B y: Balwinder Nelson on 12-14-2024 Basophils/100 WBC (Bld) 0.3 % 0-[address] [facility] CBC W/Diff, Automatedon 12-03 Absolute Lymph 1.93 X10 3/uL Normal 0.83-4.51 [facility] Comment on above: Order Comment: 102.2 Performed By: #### L 100.0500, L500.2500 #### [facility] [address] [place], [address] Absolute Neut 4.0 X10 3/uL Normal 2.0-7.7 [facility] Comment on above: Order Comment: 102.2 Performed By: #### L 100.0500, L500.2500 #### [facility] [address] [place], [address] Basophils/100 WBC (Bld) 0.3 % Normal 0-[address] [facility] Comment on above: Order Comment: 102.2 Performed By: #### L 100.0500, L500.2500 #### [facility] [address] [place], [address] Eosinophils/100 WBC (Bld) 3.1 % Normal 0-5 [facility] Comment on above: Order Comment: 102.2 Performed By: #### L 100.0500, L500.2500 #### [facility] [address] [place], [address] Erythrocyte distribution width (RBC) [Ratio] 13.6 % Normal 11.6-14.6 [facility] Comment on above: Order Comment: 102.2 Performed By: #### L 100.0500, L500.2500 #### [facility] [address] [place], [address] Hematocrit (Bld) [Volume fraction] 35.6 % Low 37-47 [facility] Comment on above: Order Comment: 102.2 Performed By: #### L 100.0500, L500.2500 #### [facility] [address] [place], [address] Hemoglobin (Bld) [Mass/Vol] 10.9 g/dL Low 12.0-15.0 [facility] Comment on above: Order Comment: 102.2 Performed By: #### L 100.0500, L500.2500 #### [facility] [address], [address] IG% 1.000 High 0.0-0.9 [facility] Comment on above: Order Comment: 102.2 Result Comment: IG% - Immature Granulocytes (promyelocytes, myelocytes and metamyelocytes) > 1% indicates that a LEFT SHIFT is Present. Performed By: #### L 100.0500, L500.2500 #### [facility] [address] [place], [address] Lymphocytes/100 WBC (Bld) 28.7 % Normal 19-41 [facility] Comment on above: Order Comment: 102.2 Performed By: #### L 100.0500, L500.2500 #### [facility] [address] [place], [address] MCH (RBC) [Entitic mass] 28.2 pg Normal 27.0-32.0 [facility] Comment on above: Order Comment: 102.2 Performed By: #### L 100.0500, L500.2500 #### [facility] [address] [place], [address] MCHC (RBC) [Mass/Vol] 30.6 g/dL Low 32-36 [facility] Comment on above: Order Comment: 102.2 Performed By: #### L 100.0500, L500.2500 #### [facility] [address] [place], [address] MCV (RBC) [Entitic vol] 92.0 fL Normal 81-[address] [facility] Comment on above: Order Comment: 102.2 Performed By: #### L 100.0500, L500.2500 #### [facility] [address] [place], [address] Monocytes/100 WBC (Bld) 6.8 % Normal 0-[address] [facility] Comment on above: Order Comment: 102.2 Performed By: #### L 100.0500, L500.2500 #### [facility] [address] [place], [address] Neutrophils/100 WBC (Bld) 60.1 % Normal 47-70 [facility] Comment on above: Order Comment: 102.2 Performed By: #### L 100.0500, L500.2500 #### [facility] [address] [place], [address] Nucleated RBC (Bld) [#/Vol] 0 10*3/uL Normal 0-5 [facility] Comment on above: Order Comment: 102.2 Performed By: #### L 100.0500, L500.2500 #### [facility] [address] [place], [address] Platelet mean volume (Bld) [Entitic vol] 8.5 fL Normal 6.2-12.0 [facility] Comment on above: Order Comment: 102.2 Performed By: #### L 100.0500, L500.2500 #### [facility] [address] [place], [address] Platelets (Bld) [#/Vol] 213 10*3/uL Normal 150-450 [facility] Comment on above: Order Comment: 102.2 Performed By: #### L 100.0500, L500.2500 #### [facility] [address] [place], [address] RBC (Bld) [#/Vol] 3.87 10*6/uL Low 4.2-5.4 [facility] Comment on above: Order Comment: 102.2 Performed By: #### L 100.0500, L500.2500 #### [facility] [address] [place], [address] RDW SD 46.1 fl High 35.1-43.9 [facility] Comment on above: Order Comment: 102.2 Performed By: #### L 100.0500, L500.2500 #### [facility] [address] [place], [place], [address] WBC (Bld) [#/Vol] 6.7 10*3/uL Normal 4.4-11.0 [facility] Comment on above: Order Comment: 102.2 Performed By: #### L 100.0500, L500.2500 #### [facility] [address] [place], [place], [id number] Calculated very low density lipoprotein (VLDL) cholesterol [...] on 12-14-2024 Chloride [Moles/Vol] 101 mmol/L 98-108 [facility] Eosinophil percentageOrdered By: Balwinder Alves on [...] [facility] [place], [address] Hemoglobin A1c percentageOrd ered By: Balwinder Alves [...] [facility] [address] [place], [address] LDL calc ser/plasOrdered By: Balwinder Alves on 12-14-2024 Cholesterol in LDL [Mass/Vol] 22 mg/dL [facility] Comment on above: Vvjhfywscd=313-022 m g/dL & Higher Bhwc=430 mg/dL or greater LDL Cholesterol, Calculated 22 mg/dL [facility] Comment on above: Qlsoqfmgtc=610-161 m g/dL & Higher Ggpy=088 mg/dL or greater Lipid Profileon 12-14-2024 CHOL:HDL 2.29 Normal [facility] Comment on above: Order Comment: 102.2 Performed By: #### L 100.0500, L500.2500 #### [facility] [address] [place], [address] Cholesterol [Mass/Vol] 91 mg/dL Normal <=200 [facility] Comment on above: Order Comment: 102.2 Result Comment: Chol esterol level, Desirable <200 mg/dL Borderline high cholesterol 200-239 mg/dL High cholesterol >=240 mg/dL Recommendations of the NCEP Adult Treatment Panel for the following risk-cutoff thresholds for the [place] population. Performed By: #### L 100.0500, L500.2500 #### [facility] [address] [place], [address] Cholesterol in HDL [Mass/Vol] 40 mg/dL Normal [...] [facility] [address] [place], [address] Cholesterol in LDL [Mass/Vol] 22 mg/dL Normal [facility] Comment on above: Order Comment: 102.2 Result Comment: Bord xzrqwp=079-282 mg/dL Higher Uwjb=162 mg/dL or greater Performed By: #### L 100.0500, L500.2500 #### [facility] [address] [place], [address] Cholesterol in VLDL [Mass/Vol] 29 mg/dL Normal 5-40 [facility] Comment on above: Order Comment: 102.2 Performed By: #### L 100.0500, L500.2500 #### [facility] [address] [place], [address] Triglyceride [Mass/Vol] 146 mg/dL Normal [facility] Comment on above: Order Comment: 102.2 Result Comment: The drugs N-Acetylcysteine and Metamizole may falsely depress this assay. Normal range: <150 mg/dL Borderline High: 150-199 mg/dL High: 200-499 mg/dL Very High: >500 mg/dL Performed By: #### L 100.0500, L500.2500 #### [facility] [address] [place], [address] Lymphocytes Auto (Unsp spec) [#/Vol]Ordered By: Balwinder [...] (RBC) [Entitic vol] 92.0 fL 81-[address] [facility] Mean corpuscular hemoglobin (MCH) determinationOrdered By: Balwinder Alves on 12-14-2024 MCH (RBC) [Entitic mass] 28.2 pg 27.0-32.0 [facility] Mean corpuscular hemoglobin concentration (MCHC) determinationOrdered By: Balwinder Alves on 12-14-2024 MCHC (RBC) [Mass/Vol] 30.6 g/dL Low 32-36 [facility] Mean platelet volume determi nationOrdered By: Balwinder Alves on 12-14-2024 Platelet mean volume (Bld) [Entitic vol] 8.5 fL 6.2-12.0 [facility] Monocyte percentageOrdered B y: Balwinder Alves on 12-14-2024 Monocytes/100 WBC (Bld) 6.8 % 0-[address] [facility] Neutrophil percentageOrdered By: Balwinder Alves on [...] on 12-14-2024 Potassium [Moles/Vol] 4.3 mmol/L 3.3-5.1 [facility] Potassium measurement (mass/ volume)Ordered By: Balwinder Alves on 12-14-2024 Potassium (Unsp spec) [Mass/Vol] 4.3 mmol/L 3.3-5.1 [facility] RBC Auto (Bld) [#/Vol]Ordere d By: Balwinder Alves on 12-14-2024 RBC (Bld) [#/Vol] 3.87 10*6/uL Low 4.2-5.4 [facility] Screening total cholesterol/ high density lipoprotein (HDL) cholesterol ratioOrdered By: Balwinder Alves on 12-14-2024 Cholesterol.total/Jany sterol in HDL [Mass ratio] 2.29 {ratio} [facility] Serum creatinine measurement (mass/volume)Ordered By: Balwinder Alves on 12-14-2024 Creatinine [Mass/Vol] 0.68 mg/dL Low 0.70-1.20 [facility] Serum glucose measurement (m ass/volume)Ordered By: Balwinder Alves on 12-14-2024 Glucose [Mass/Vol] 177 mg/dL High 70-99 [facility] Serum or plasma calcium jacqueline urement (mass/volume)Ordered By: Balwinder Alves on 12-14-2024 Calcium [Mass/Vol] 9.2 mg/dL 7.6-11.0 [facility] Serum or plasma cholesterol in [...] on 12-14-2024 Cholesterol [Mass/Vol] 91 mg/dL <201 [facility] Comment on above: Cholesterol level, D esirable <200 mg/dLBorderline high cholesterol 200-239 mg/dLHigh cholesterol >=240 mg/dLRecommendations of the NCEP Adult Treatment Panel for the following risk-cutoff thresholds for the [place] population. Serum or plasma urea nitroge n measurement (mass/volume)Ordered By: Balwinder Alves on 12-14-2024 Urea nitrogen [Mass/Vol] 7 mg/dL 4-19 [facility] Sodium levelOrdered By: Balwinder Alves on 12-14-2024 Sodium [Moles/Vol] 139 mmol/L 133-145 [facility] Triglycerides measurementOrd ered By: Balwinder Alves on 12-14-2024 Triglyceride [Mass/Vol] 146 mg/dL <[address] [facility] Comment on above: The drugs N-Acetylcy steine and Metamizole may falsely depress this assay. Normal range: <150 mg/dLBorderline High: 150-199 mg/dLHigh: 200-499 mg/dLVery High: >500 mg/dL Vitamin D, 25-hydroxyOrdered By: Balwinder Alves on 12-14-2024 Vitamin D 25-Hydroxy 31.2 ng/mL 30-[address] [facility] Comment on above: Vitamin D StatusDefi ciency: <20 ng/mL (50nmol/L)Insufficiency: 20-30 ng/mL (50-75 nmol/L)Sufficiency: 30-100 ng/mL (75-250 nmol/L)Toxicity: >100 ng/mL (>250 nmol/L) White blood cell (WBC) count Ordered By: Balwinder Alves on 12-14-2024 WBC (Bld) [#/Vol] 6.7 10*3/uL 4.4-11.0 [facility] Urine Cultureon 10-17-2024 [facility]RC Copy of report sent to Infection Control Printer [id number] 10/17/24 1000 VSICK. Urine Culture Urine Culture Urine Culture ESBL Escherichia coli Holland Count 80,000-100,000 MARKER ESBL producing OrganismA MARKER ESBL producing OrganismA [place] Count 80,000-100,000 Proteus mirabilis Ampicillin Islt PREM [...] Amikacin Islt PREM 2 S Doxycycline Islt PERM 2 S Eravacycline Islt PREM <=0.12 Imipenem [...] [facility] [address] [place], [address] Urinalysis, Routine (Dipstic k)on 10-11-2024 BILIRUBIN URINE Negative Normal Negative [facility] Comment on above: Order Comment: 102.2 Performed By: #### L 100.0500, L500.2500 #### [facility] [address] [place], [address] Clarity (U) Sl. Cloudy Normal Clear [facility] Comment on above: Order Comment: 102.2 Performed By: #### L 100.0500, L500.2500 #### [facility] [address] [place], [address] Color (U) Yellow Normal Yellow [facility] Comment on above: Order Comment: 102.2 Performed By: #### L 100.0500, L500.2500 #### [facility] [address] [place], [address] GLUCOSE, UR Normal Normal Normal [facility] Comment on above: Order Comment: 102.2 Performed By: #### L 100.0500, L500.2500 #### [facility] [address] [place] [place], [address] KETONE UR Negative Normal Negative [facility] Comment on above: Order Comment: 102.2 Performed By: #### L 100.0500, L500.2500 #### [facility] [address] [place], [address] LEUK ESTERASE 500 /ul Abnormal Negative [facility] Comment on above: Order Comment: 102.2 Performed By: #### L 100.0500, L500.2500 #### [facility] [address] [place], [address] Nitrite Ql (U) Positive Abnormal Negative [facility] Comment on above: Order Comment: 102.2 Performed By: #### L 100.0500, L500.2500 #### [facility] [address] [place], [address] OCCULT BLOOD-UR 50 /ul Abnormal Negative [facility] Comment on above: Order Comment: 102.2 Performed By: #### L 100.0500, L500.2500 #### [facility] [address] [place], [address] pH UR 6.5 Normal 5.0 - 8.0 [facility] Comment on above: Order Comment: 102.2 Performed By: #### L 100.0500, L500.2500 #### [facility] [address] [place], [address] PROT DIPSTX 15 mg/dl Abnormal Negative [facility] Comment on above: Order Comment: 102.2 Performed By: #### L 100.0500, L500.2500 #### [facility] [address] [place], [address] SP.GR. DIPSTX 1.010 Normal 1.002-1.030 [facility] Comment on above: Order Comment: 102.2 Performed By: #### L 100.0500, L500.2500 #### [facility] [address] [place], [address] UROBILI Normal Normal Normal [facility] Comment on above: Order Comment: 102.2 Performed By: #### L 100.0500, L500.2500 #### [facility] [address] [place], [address] Bilirubin Test strip Ql (U)O rdered By: Balwinder Alves on 10-10-2024 Bilirubin Ql (U) Negative Negative [facility] Glucose Ql (U)Ordered By: Jen Alves on 10-10-2024 Urine Glucose (UA) Normal mg/dl Normal [facility] Ketones Test strip Ql (U)Ord ered [...] Urine Occult Blood 50 /ul High Negative [facility] Urine clarityOrdered By: Javed Alves [...] on 10-10-2024 Urine Urobilinogen Normal mg/dl Normal [facility] Automated blood erythrocyte countOrdered By: Balwinder Alves on 09-14-2024 RBC (Bld) [#/Vol] 3.90 10*6/uL Low 4.2-5.4 [facility] Comment on above: Order Comment: 102.2 Performed By: #### L 100.0500, L500.2500 #### [facility] [place], [address] Automated blood hematocrit ( percentage)Ordered By: Balwinder Alves on 09-14-2024 Hematocrit (Bld) [Volume fraction] 37.7 % Normal 37-47 [facility] Comment on above: Order Comment: 102.2 Performed By: #### L 100.0500, L500.2500 #### [facility] [address] [place], [address] Basic Metabolic Profile (BMP )on 09-14-2024 BUN/CRE 15.5 RATIO Normal 10-20 [facility] Comment on above: Order Comment: 102.2 Performed By: #### L 100.0500, L500.2500 #### [facility] [address] [place], [address] CA,Total 9.4 mg/dL Normal 8.5-10.1 [facility] Comment on above: Order Comment: 102.2 Performed By: #### L 100.0500, L500.2500 #### [facility] [address] [place], [address] EST GFR - AA 102 mL/min Normal >60 [facility] Comment on above: Order Comment: 102.2 Result Comment: Afri can [place] GFR Calc Performed By: #### L 100.0500, L500.2500 #### [facility] [address] [place], [address] GAP 3 Low 5-15 [facility] Comment on above: Order Comment: 102.2 Performed By: #### L 100.0500, L500.2500 #### [facility] [address] [place], [address] GFR/1.73 sq M.predicted among non-blacks MDRD (S/P/Bld) [Vol rate/Area] 84 mL/min/{1.73_m2} Normal >60 [facility] Comment on above: Order Comment: 102.2 Result Comment: Non- GFR Calc Performed By: #### L 100.0500, L500.2500 #### [facility] [address] [place], [address] Blood urea nitrogen (BUN)/cr eatinine ratioOrdered By: Balwinder Alves on 09-14-2024 Urea nitrogen/Creatinine [Mass ratio] 15.5 mg/mg 10- [facility] CBC-Complete Blood Cnt No Di ffon 09-14-2024 RDW SD 48.3 fl High 35.1-43.9 [facility] Comment on above: Order Comment: 102.2 Performed By: #### L 100.0500, L500.2500 #### [facility] [address] [place], [address] Carbon dioxide measurementOr dered By: Balwinder Alves on 09-14-2024 CO2 [Moles/Vol] 34.0 mmol/L High 21.0-32.0 [facility] Comment on above: Order Comment: 102.2 Performed By: #### L 100.0500, L500.2500 #### [facility] [address] [place], [address] Chloride measurementOrdered By: Balwinder Alves on 09-14-2024 Chloride [Moles/Vol] 103 mmol/L Normal 98-107 [facility] Comment on above: Order Comment: 102.2 Performed By: #### L 100.0500, L500.2500 #### [facility] [address] [place], [address] Erythrocyte distribution wid th (RBC) [Ratio]Ordered By: [...] [facility] [address] [place], [address] Estimated glomerular filtrat ion rate (GFR) AmericanOrdered [...] 09-14-2024 Glucose [Mass/Vol] 168 mg/dL High 74-106 [facility] Comment on above: Fasting Glucose resu lt greater than or equal to 126 mg/dL suggests DIABETES MELLITUS per A.D.A. criteria. Order Comment: 102.2 Result Comment: Fast ing Glucose result greater than or equal to 126 mg/dL suggests DIABETES MELLITUS per A.D.A. criteria. Performed By: #### L 100.0500, L500.2500 #### [facility] [address] [place], [address] Hemoglobin measurementOrdere d By: Balwinder Alves on 09-14-2024 Hemoglobin (Bld) [Mass/Vol] 11.1 g/dL Low 12.0-15.0 [facility] Comment on above: Order Comment: 102.2 Performed By: #### L 100.0500, L500.2500 #### [facility] [address] [facility] [place], [address] MCV (mean corpuscular volume ) determinationOrdered By: Balwinder Alves on 09-14-2024 MCV (RBC) [Entitic vol] 96.7 fL Normal 81-[address] [facility] Comment on above: Order Comment: 102.2 Performed By: #### L 100.0500, L500.2500 #### [facility] [address] [place], [address] Mean corpuscular hemoglobin (MCH) determinationOrdered By: Balwinder Alves on 09-14-2024 MCH (RBC) [Entitic mass] 28.5 pg Normal 27.0-32.0 [facility] Comment on above: Order Comment: 102.2 Performed By: #### L 100.0500, L500.2500 #### [facility] [address] [place], [address] Mean corpuscular hemoglobin concentration (MCHC) determinationOrdered By: Balwinder Alves on 09-14-2024 MCHC (RBC) [Mass/Vol] 29.4 g/dL Low 32-36 [facility] Comment on above: Order Comment: 102.2 Performed By: #### L 100.0500, L500.2500 #### [facility] [address] [place], [address] Mean platelet volume determi nationOrdered By: Balwinder Alves on 09-14-2024 Platelet mean volume (Bld) [Entitic vol] 8.2 fL Normal 6.2-12.0 [facility] Comment on above: Order Comment: 102.2 Performed By: #### L 100.0500, L500.2500 #### [facility] [address] [place], [address] Platelet countOrdered By: Jen Alves on 09-14-2024 Platelets (Bld) [#/Vol] 178 10*3/uL Normal 150-450 [facility] Comment on above: Order Comment: 102.2 Performed By: #### L 100.0500, L500.2500 #### [facility] [address] [place], [address] Potassium measurementOrdered By: Balwinder Alves on 09-14-2024 Potassium [Moles/Vol] 4.6 mmol/L Normal 3.5-5.1 [facility] Comment on above: Order Comment: 102.2 Performed By: #### L 100.0500, L500.2500 #### [facility] [address] [place], [address] Serum anion gap measurementO rdered By: Balwinder Alves on 09-14-2024 Anion gap [Moles/Vol] 3 mmol/L Low 5-15 [facility] Serum or plasma calcium jacqueline urement (mass/volume)Ordered By: Balwinder Alves on 12-11-2024 Calcium [Mass/Vol] 9.4 mg/dL 8.5-10.1 [facility] Serum or plasma creatinine m easurement (mass/volume)Ordered By: Balwinder Alves on 09-14-2024 Creatinine [Mass/Vol] 0.71 mg/dL Normal 0.55-1.02 [facility] Comment on above: The validity of [...] [facility] [address] [place], [address] Serum or plasma urea nitroge n measurement (mass/volume)Ordered By: Balwinder Alves on 09-14-2024 Urea nitrogen [Mass/Vol] 11 mg/dL Normal 7-18 [facility] Comment on above: Order Comment: 102.2 Performed By: #### L 100.0500, L500.2500 #### [facility] [address] [place], [address] Sodium levelOrdered By: Balwinder Alves on 09-14-2024 Sodium [Moles/Vol] 139 mmol/L Normal 136-145 [facility] Comment on above: Order Comment: 102.2 Performed By: #### L 100.0500, L500.2500 #### [facility] [address] [place], [address] White blood cell (WBC) count Ordered By: Balwinder Alves on 09-14-2024 WBC (Bld) [#/Vol] 5.6 10*3/uL Normal 4.4-11.0 [facility] Comment on above: Order Comment: 102.2 Performed By: #### L 100.0500, L500.2500 #### [facility] [address] [place], [address] Basophil percentageOrdered B y: Balwinder Alves on 03-11-2024 Chloride [Moles/Vol] 105 mmol/L 98-107 [facility] Cholesterol [Mass/Vol] 128 mg/dL <200 [facility] Comment on above: <200 mg/dL Desirable 200-240 mg/dL Borderline >240 mg/dL High Risk Glucose [Mass/Vol] 132 mg/dL 74-106 [facility] Comment on above: Fasting Glucose resu lt greater than or equal to 126 mg/dL suggests DIABETES MELLITUS per A.D.A. criteria. Hemoglobin (Bld) [Mass/Vol] 12.5 g/dL 12.0-15.0 [facility] Potassium [Moles/Vol] 4.4 mmol/L 3.5-5.1 [facility] Sodium [Moles/Vol] 142 mmol/L 136-145 [facility] Triglyceride [Mass/Vol] 178 mg/dL <[address] [facility] Comment on above: The drugs N-Acetylcy steine and Metamizole may falsely depress this assay.Serum Triglycerides Reference Interval Normal <150 mg/dL Borderline high 150 - 199 mg/dL High 200 - 499 mg/dL Very High > or = 500 mg/dL WBC (Bld) [#/Vol] 4.9 10*3/uL 4.4-11.0 [facility] Determination of erythrocyte mean corpuscular volume (MCV)Ordered By: Balwinder Alves on 12-14-2023 MCV (RBC) [Entitic vol] 92.6 fL 81-99 [facility] Erythrocyte distribution wid th ratioOrdered By: [...] Center MCHC (RBC) [Mass/Vol] 30.4 g/dL 32-36 [facility] Platelet mean volume (Bld) [Entitic vol] [...] GFR Calc Vitamin D 25-Hydroxy 42.9 ng/mL [facility] Comment on above: Vitamin D 25(OH) [...] 12-14-2023 RBC (Bld) [#/Vol] 4.44 10*6/uL 4.2-5.4 [facility] Serum or plasma calcium jacqueline urement (mass/volume)Ordered By: Balwinder Alves on 12-14-2023 Calcium [Mass/Vol] 8.9 mg/dL 8.5-10.1 [facility] Serum or plasma creatinine m easurement (mass/volume)Ordered By: Balwinder Alves on 12-14-2023 Creatinine [Mass/Vol] 0.58 mg/dL 0.55-1.02 [facility] Comment on above: The validity of [...] range changes. Office Visiton 12-09-2023 Follow-up visit [id number] Dowell,Joy edwards 1945 F Date Provider Department Center 12/09/2023 TETE ALMAGUER [facility] OR None No family history on file Level of Service:11659 CT OFFICE/OUTPATIENT ESTABLISHED LOW MDM 20 MIN Reason for Visit and Comments: Follow-up [220158] - L fibula fx Normal [facility] Progress Noteon 12-09-2023 Progress Note [facility] [address] [place] [address] [place] [id number] Dept: [phone] Dept Gumaro Daria 1945 [id number] 12/09/2023 HISTORY OF PRESENT ILLNESS: Gumaro returns [...] on it (more content not included)... Normal [facility] 36on 10-14-2023 36 Spoke with Beny at [facility] and clarified that Gumaro should bear weight in her boot until next visit and should use walker as needed for balance. Normal [facility] 36 Name of Caller: Gareth at [facility] Contact ask for Gareth Reason" Gareth is [...] a call back. Office Name: Ortho Normal [facility] Office Visiton 10-14-2023 Follow-up visit [id number] Joy Huff 1945 F Date Provider Department Center 10/14/2023 [id number], [facility] OR None No family history on file Level of Service:37836 CT OFFICE/OUTPATIENT ESTABLISHED LOW MDM 20 MIN Reason for Visit and Comments: Follow-up [027033] - Left distal fibula fx DOI 07/02/23 Progress Noteon 10-14-2023 Progress Note [facility] [address] [place] [address] [place] [id number] Dept: [phone] Dept Gumaro Huff 1945 [id number] 10/14/2023 HISTORY OF PRESENT ILLNESS: Gumaro returns [...] above p (more content not included)... Normal [facility] Clostridioides difficile nuc leic acid [...] on 09-14-2023 Chloride [Moles/Vol] 102 mmol/L 98-107 [facility] Glucose [Mass/Vol] 142 mg/dL 74-106 [facility] Comment on above: Fasting Glucose resu lt greater than or equal to 126 mg/dL suggests DIABETES MELLITUS per A.D.A. criteria. Potassium [Moles/Vol] 4.1 mmol/L 3.5-5.1 [facility] Sodium [Moles/Vol] 138 mmol/L 136-145 [facility] WBC (Bld) [#/Vol] 5.9 10*3/uL 4.4-11.0 [facility] Blood erythrocytes count (nu mber/volume)Ordered By: Balwinder Alves on 09-14-2023 RBC (Bld) [#/Vol] 4.96 10*6/uL 4.2-5.4 [facility] Blood hemoglobin measurement (mass/volume)Ordered By: Balwinder [...] [Entitic vol] 92.5 fL 81-[address] [facility] Hematocrit Auto (Bld) [Volum e fraction]Ordered [...] 09-14-2023 MCHC (RBC) [Mass/Vol] 29.0 g/dL 32-36 [facility] No Panel InformationOrdered By: Balwinder Alves on 09-14-2023 Estimated GFR (MDRD) Amer 125 mL/min >60 [facility] Comment on above: GFR Calc Estimated GFR (MDRD) Non-Af Amer 103 mL/min >60 [facility] Comment on above: Non- GFR Calc Office Visiton 09-14-2023 Follow-up visit [id number] Joy Huff 1945 F Date Provider Department Center 09/14/2023 [id number] UREÑA [facility] None No family history on file Level of Service:86643 CT OFFICE/OUTPATIENT NEW MODERATE MDM 45-59 MINUTES Reason for Visit and Comments: New Patient [542] - LT distal fibula fx DOI 07/02/23 Normal [facility] Platelets bldOrdered By: Javed Alves on 09-14-2023 Platelets (Bld) [#/Vol] 196 10*3/uL 150-450 [facility] Progress Noteon 09-14-2023 Progress Note [facility] [address] [facility] [address] [facility] [phone] Dept: [phone] Dept Gumaro Huff 1945 [id number] 09/14/2023 HISTORY OF PRESENT ILLNESS: Gumaro is [...] given he (more content not included)... Normal [facility] Serum or plasma calcium jacqueline urement (mass/volume)Ordered By: Balwinder Alves on 09-14-2023 Calcium [Mass/Vol] 8.9 mg/dL 8.5-10.1 [facility] Serum or plasma creatinine m easurement (mass/volume)Ordered By: Balwinder Alves on 09-14-2023 Creatinine [Mass/Vol] 0.59 mg/dL 0.55-1.02 [facility] Comment on above: The validity of [...] at the lateral malleolar fracture site. Normal [facility] XR FOOT 3+ VIEWS LEFTon 09-04 XR [...] at the lateral malleolar fracture site. Normal [facility] 36on 09-03-2023 36 Left distal fibula f x doi 07/02/23 she is in a boot. Can only be seen in [place] or [place]. No wads Normal [facility] 36on 09-02-2023 36 Gareth an RN at [facility] called [phone] ext [phone], he states that they just got Gumaro from [place] and they are looking for her to [...] today and then works again tomorrow. Normal [place] [address]on 07-17-2023 36 LVM to schedule with Dr. Ureña on Thursday at 1pm in [facility] or 9am in [place] if not already double booked. Normal [facility] .Auto DiffOrdered By: SYSTEM SYSTEM on 07-04-2023 Basophil, Absolute 0.0 103/mcL Normal 0.0-0.2 AO Wo rkflow SS Comment on above: Performed By: #### L IPID, ADIFF, ANEU, CMP, CBC, GFR #### Varun [address] [address] Basophils/100 WBC (Bld) 0.4 % Normal 0.0-2.5 A O Workflow SS Comment on above: Performed By: #### L IPID, ADIFF, ANEU, CMP, CBC, GFR #### [address] [address] Eosinophil, Absolute 0.4 103/mcL Normal 0.0-0.4 AO Workflow SS Comment on above: Performed By: #### L IPID, ADIFF, ANEU, CMP, CBC, GFR #### [address] [address] Eosinophils/100 WBC (Bld) 6.9 % Normal 0.0-7.0 AO Workflow SS Comment on above: Performed By: #### L IPID, ADIFF, ANEU, CMP, CBC, GFR #### [address] [address] Lymphocyte, Absolute 1.7 103/mcL Normal 0.8-3.9 AO Workflow SS Comment on above: Performed By: #### L IPID, ADIFF, ANEU, CMP, CBC, GFR #### [address] [address] Lymphocytes/100 WBC (Bld) 27.3 % Normal 10.0-50.0 AO Workflow SS Comment on above: Performed By: #### L IPID, ADIFF, ANEU, CMP, CBC, GFR #### [address] [address] Monocyte, Absolute 0.4 103/mcL Normal 0.2-1.0 AO Wo rkflow SS Comment on above: Performed By: #### L IPID, ADIFF, ANEU, CMP, CBC, GFR #### [address] [address] Monocytes/100 WBC (Bld) 6.4 % Normal 1.7-13.0 A O Workflow SS Comment on above: Performed By: #### L IPID, ADIFF, ANEU, CMP, CBC, GFR #### [address] [address] Neutrophils/100 WBC (Bld) 59.0 % Normal 37.0-80.0 AO Workflow SS Comment on above: Performed By: #### L IPID, ADIFF, ANEU, CMP, CBC, GFR #### [address] [address] .GFRon 07-04-2023 GFR 93 ml/min/1.73sqm Normal [facility] ([place]) Comment on above: Result Comment: GFR [...] IPID, ADIFF, ANEU, CMP, CBC, GFR #### [address] [address] GFR Non- 77 ml/min/1.73sqm Normal [facility] ([place]) Comment on above: Result Comment: GFR [...] IPID, ADIFF, ANEU, CMP, CBC, GFR #### [address] [address] .NEUABSOrdered By: SYSTEM SY STEM on 07-04-2023 Neutrophil, Absolute 3.7 103/mcL Normal 2.9-6.2 AO Workflow SS Comment on above: Performed By: #### L IPID, ADIFF, ANEU, CMP, CBC, GFR #### [address] [address] BMPon 07-04-2023 BUN/Creatinine Ratio 14 ratio Normal 7-27 [facility] ([place]) Comment on above: Performed By: #### L IPID, ADIFF, ANEU, CMP, CBC, GFR #### [place] [id number] BMPOrdered By: SYSTEM SYSTEM on 07-04-2023 Calcium [Mass/Vol] 8.1 mg/dL Low 8.4-10.2 AO ADM SS Comment on above: Performed By: #### L IPID, ADIFF, ANEU, CMP, CBC, GFR #### [address] [address] Chloride [Moles/Vol] 104 mmol/L Normal 98-107 AO A DM SS Comment on above: Performed By: #### L IPID, ADIFF, ANEU, CMP, CBC, GFR #### [address] [address] CO2 [Moles/Vol] 29 mmol/L Normal 23-31 AO ADM SS Comment on above: Performed By: #### L IPID, ADIFF, ANEU, CMP, CBC, GFR #### [address] [address] Creatinine [Mass/Vol] 0.73 mg/dL Normal 0.55-1.02 AO ADM SS Comment on above: Performed By: #### L IPID, ADIFF, ANEU, CMP, CBC, GFR #### [address] [address] Electrolyte Balance 6.0 mEq/L Normal 4.0-15.0 AO AD M SS Comment on above: Performed By: #### L IPID, ADIFF, ANEU, CMP, CBC, GFR #### [address] [address] Glucose [Mass/Vol] 145 mg/dL High 83-110 AO ADM SS Comment on above: Performed By: #### L IPID, ADIFF, ANEU, CMP, CBC, GFR #### [place] [address] Potassium [Moles/Vol] 4.9 mmol/L Normal 3.5-5.1 AO ADM SS Comment on above: Performed By: #### L IPID, ADIFF, ANEU, CMP, CBC, GFR #### [place] [address] Sodium [Moles/Vol] 139 mmol/L Normal 136-145 AO ADM SS Comment on above: Performed By: #### L IPID, ADIFF, ANEU, CMP, CBC, GFR #### [place] [address] Urea nitrogen [Mass/Vol] 10 mg/dL Normal 7-18 AO ADM SS Comment on above: Performed By: #### L IPID, ADIFF, ANEU, CMP, CBC, GFR #### [place] [address] CBCOrdered By: SYSTEM SYSTEM on 07-04-2023 Erythrocyte distribution width (RBC) [Ratio] 14.2 % Normal 11.5-14.5 AO Workflow SS Comment on above: Performed By: #### L IPID, ADIFF, ANEU, CMP, CBC, GFR #### [place] [address] Hematocrit (Bld) [Volume fraction] 35.4 % Low 37.0-47.0 AO Workflow SS Comment on above: Performed By: #### L IPID, ADIFF, ANEU, CMP, CBC, GFR #### [place] [address] MCH (RBC) [Entitic mass] 28.7 pg Normal 27.0-31.2 AO Workflow SS Comment on above: Performed By: #### L IPID, ADIFF, ANEU, CMP, CBC, GFR #### [place] [address] MCHC 32.4 G/dL Low 33.0-37.0 AO Workflow SS Comment on above: Performed By: #### L IPID, ADIFF, ANEU, CMP, CBC, GFR #### [address] [address] MCV (RBC) [Entitic vol] 88.6 fL Normal 80.0-94.0 A O Workflow SS Comment on above: Performed By: #### L IPID, ADIFF, ANEU, CMP, CBC, GFR #### [address] [address] Platelet mean volume (Bld) [Entitic vol] 6.5 fL Low 7.4-10.4 AO Workflow SS Comment on above: Performed By: #### L IPID, ADIFF, ANEU, CMP, CBC, GFR #### [address] [address] CBCon 07-04-2023 Hgb 11.4 G/dL Low 12.0-16.0 [facility] ([place]) Comment on above: Performed By: #### L IPID, ADIFF, ANEU, CMP, CBC, GFR #### [address] [address] Platelet 165 10 3/mcL Normal 130-400 [facility] ([place]) Comment on above: Performed By: #### L IPID, ADIFF, ANEU, CMP, CBC, GFR #### [address] [address] RBC 3.99 10 6/mcL Low 4.20-5.40 [facility] ([place]) Comment on above: Performed By: #### L IPID, ADIFF, ANEU, CMP, CBC, GFR #### [address] [address] WBC 6.3 10 3/mcL Normal 4.6-10.8 [facility] ([place]) Comment on above: Performed By: #### L IPID, ADIFF, ANEU, CMP, CBC, GFR #### [address] [address] LABORATORYOrdered By: Darwin Diaz on 07-04-2023 Blood Glucose Testing Reason Routine (07/04/23 4:36 PM) [facility] Work Phone: Glucose [Mass/Vol] 125 mg/dL Invalid Interpretation Code 82 - 115 mg/dL [facility] Work Phone: Blood Glucose Testing Reason Routine (07/04/23 10:38 AM) [facility] Work Phone: LABORATORYOrdered By: Loretta Mejia on 07-04-2023 Glucose [Mass/Vol] 140 mg/dL Invalid Interpretation Code 82 - 115 mg/dL [facility] Work Phone: Glucose [Mass/Vol] 139 mg/dL Invalid Interpretation Code 82 - 115 mg/dL [facility] Work Phone: LABORATORYOrdered By: SYSTEM SYSTEM [...] IPID, ADIFF, ANEU, CMP, CBC, GFR #### [address] [address] .Auto Diffon 07-03-2023 Basophil, Absolute 0.0 10 3/mcL Normal 0.0-0.2 [facility] ([place]) Comment on above: Performed By: #### L IPID, ADIFF, ANEU, CMP, CBC, GFR #### [address] [address] Basophils/100 WBC (Bld) 0.5 % Normal 0.0-2.5 A [facility] ([place]) Comment on above: Performed By: #### L IPID, ADIFF, ANEU, CMP, CBC, GFR #### [address] [address] Eosinophil, Absolute 0.4 10 3/mcL Normal 0.0-0.4 [facility] ([place]) Comment on above: Performed By: #### L IPID, ADIFF, ANEU, CMP, CBC, GFR #### [address] [address] Eosinophils/100 WBC (Bld) 6.7 % Normal 0.0-7.0 [facility] ([place]) Comment on above: Performed By: #### L IPID, ADIFF, ANEU, CMP, CBC, GFR #### [address] [address] Lymphocyte, Absolute 1.8 10 3/mcL Normal 0.8-3.9 [facility] ([place]) Comment on above: Performed By: #### L IPID, ADIFF, ANEU, CMP, CBC, GFR #### [address] [address] Lymphocytes/100 WBC (Bld) 31.4 % Normal 10.0-50.0 [facility] ([place]) Comment on above: Performed By: #### L IPID, ADIFF, ANEU, CMP, CBC, GFR #### [address] [address] Monocyte, Absolute 0.4 10 3/mcL Normal 0.2-1.0 [facility] ([place]) Comment on above: Performed By: #### L IPID, ADIFF, ANEU, CMP, CBC, GFR #### [address] [address] Monocytes/100 WBC (Bld) 6.4 % Normal 1.7-13.0 A [facility] ([place]) Comment on above: Performed By: #### L IPID, ADIFF, ANEU, CMP, CBC, GFR #### [address] [address] Neutrophils/100 WBC (Bld) 55.0 % Normal 37.0-80.0 [facility] ([place]) Comment on above: Performed By: #### L IPID, ADIFF, ANEU, CMP, CBC, GFR #### [address] [address] .GFRon 07-03-2023 GFR 92 ml/min/1.73sqm Normal [facility] ([place]) Comment on above: Result Comment: GFR [...] IPID, ADIFF, ANEU, CMP, CBC, GFR #### [address] [address] GFR Non- 76 ml/min/1.73sqm Normal [facility] ([place]) Comment on above: Result Comment: GFR [...] IPID, ADIFF, ANEU, CMP, CBC, GFR #### [address] [address] .NEUABSon 07-03-2023 Neutrophil, Absolute 3.2 10 3/mcL Normal 2.9-6.2 [facility] ([place]) Comment on above: Performed By: #### L IPID, ADIFF, ANEU, CMP, CBC, GFR #### [address] [address] BMPon 07-03-2023 BUN/Creatinine Ratio 11 ratio Normal 7-27 [facility] ([place]) Comment on above: Performed By: #### L IPID, ADIFF, ANEU, CMP, CBC, GFR #### [address] [address] Calcium [Mass/Vol] 8.4 mg/dL Normal 8.4-10.2 Counts include 234 beds at the [facility] ([place]) Comment on above: Performed By: #### L IPID, ADIFF, ANEU, CMP, CBC, GFR #### [address] [address] Chloride [Moles/Vol] 103 mmol/L Normal 98-107 [facility] ([place]) Comment on above: Performed By: #### L IPID, ADIFF, ANEU, CMP, CBC, GFR #### [address] [address] CO2 [Moles/Vol] 31 mmol/L Normal 23-31 [facility] ([place]) Comment on above: Performed By: #### L IPID, ADIFF, ANEU, CMP, CBC, GFR #### [address] [address] Creatinine [Mass/Vol] 0.74 mg/dL Normal 0.55-1.02 [facility] ([place]) Comment on above: Performed By: #### L IPID, ADIFF, ANEU, CMP, CBC, GFR #### [address] [address] Electrolyte Balance 6.0 mEq/L Normal 4.0-15.0 [facility] ([place]) Comment on above: Performed By: #### L IPID, ADIFF, ANEU, CMP, CBC, GFR #### [address] [address] Glucose [Mass/Vol] 165 mg/dL High 83-110 Counts include 234 beds at the [facility] ([place]) Comment on above: Performed By: #### L IPID, ADIFF, ANEU, CMP, CBC, GFR #### [address] [address] Potassium [Moles/Vol] 4.6 mmol/L Normal 3.5-5.1 [facility] ([place]) Comment on above: Performed By: #### L IPID, ADIFF, ANEU, CMP, CBC, GFR #### [address] [address] Sodium [Moles/Vol] 140 mmol/L Normal 136-145 Counts include 234 beds at the [facility] ([place]) Comment on above: Performed By: #### L IPID, ADIFF, ANEU, CMP, CBC, GFR #### [address] [address] Urea nitrogen [Mass/Vol] 8 mg/dL Normal 7-18 [facility] ([place]) Comment on above: Performed By: #### L IPID, ADIFF, ANEU, CMP, CBC, GFR #### [address] [address] CBCon 07-03-2023 Erythrocyte distribution width (RBC) [Ratio] 14.4 % Normal 11.5-14.5 [facility]) Comment on above: Performed By: #### L IPID, ADIFF, ANEU, CMP, CBC, GFR #### [address] [address] Hematocrit (Bld) [Volume fraction] 36.4 % Low 37.0-47.0 [facility] ([place]) Comment on above: Performed By: #### L IPID, ADIFF, ANEU, CMP, CBC, GFR #### [address] [address] Hgb 11.6 G/dL Low 12.0-16.0 [facility] ([place]) Comment on above: Performed By: #### L IPID, ADIFF, ANEU, CMP, CBC, GFR #### [address] [address] MCH (RBC) [Entitic mass] 28.3 pg Normal 27.0-31.2 [facility] ([place]) Comment on above: Performed By: #### L IPID, ADIFF, ANEU, CMP, CBC, GFR #### [address] [address] MCHC 31.9 G/dL Low 33.0-37.0 [facility] ([place]) Comment on above: Performed By: #### L IPID, ADIFF, ANEU, CMP, CBC, GFR #### [address] [address] MCV (RBC) [Entitic vol] 88.9 fL Normal 80.0-94.0 A [facility] ([place]) Comment on above: Performed By: #### L IPID, ADIFF, ANEU, CMP, CBC, GFR #### [address] [address] Platelet 158 10 3/mcL Normal 130-400 [facility] ([place]) Comment on above: Performed By: #### L IPID, ADIFF, ANEU, CMP, CBC, GFR #### [address] [address] Platelet mean volume (Bld) [Entitic vol] 6.6 fL Low 7.4-10.4 [facility] ([place]) Comment on above: Performed By: #### L IPID, ADIFF, ANEU, CMP, CBC, GFR #### [address] [address] RBC 4.10 10 6/mcL Low 4.20-5.40 [facility] ([place]) Comment on above: Performed By: #### L IPID, ADIFF, ANEU, CMP, CBC, GFR #### [address] [address] WBC 5.8 10 3/mcL Normal 4.6-10.8 [facility] ([place]) Comment on above: Performed By: #### L IPID, ADIFF, ANEU, CMP, CBC, GFR #### [address] [address] LABORATORYOrdered By: Jose Shepard on 07-03-2023 Blood Glucose Testing Reason Routine (07/03/23 9:10 PM) [facility] Work Phone: LABORATORYOrdered By: SYSTEM SYSTEM [...] [Mass/Vol] 1.8 mg/dL Normal 1.8-2.4 [facility] ([place]) Comment on above: Performed By: #### L IPID, ADIFF, ANEU, CMP, CBC, GFR #### [address] [address] .Auto Diffon 07-02-2023 Basophil, Absolute 0.0 10 3/mcL Normal 0.0-0.2 [facility] ([place]) Comment on above: Performed By: #### A DIFF, MG, ANEU, GFR, BMP, CBC #### [address] [address] Basophils/100 WBC (Bld) 0.7 % Normal 0.0-2.5 A [facility] ([place]) Comment on above: Performed By: #### A DIFF, MG, ANEU, GFR, BMP, CBC #### [address] [address] Eosinophil, Absolute 0.3 10 3/mcL Normal 0.0-0.4 [facility] ([place]) Comment on above: Performed By: #### A DIFF, MG, ANEU, GFR, BMP, CBC #### [address] [address] Eosinophils/100 WBC (Bld) 5.6 % Normal 0.0-7.0 [facility] ([place]) Comment on above: Performed By: #### A DIFF, MG, ANEU, GFR, BMP, CBC #### [address] [address] Lymphocyte, Absolute 1.8 10 3/mcL Normal 0.8-3.9 [facility] ([place]) Comment on above: Performed By: #### A DIFF, MG, ANEU, GFR, BMP, CBC #### [address] [address] Lymphocytes/100 WBC (Bld) 33.2 % Normal 10.0-50.0 [facility] ([place]) Comment on above: Performed By: #### A DIFF, MG, ANEU, GFR, BMP, CBC #### [address] [address] Monocyte, Absolute 0.4 10 3/mcL Normal 0.2-1.0 [facility] ([place]) Comment on above: Performed By: #### A DIFF, MG, ANEU, GFR, BMP, CBC #### [address] [address] Monocytes/100 WBC (Bld) 7.8 % Normal 1.7-13.0 [facility] ([place]) Comment on above: Performed By: #### A DIFF, MG, ANEU, GFR, BMP, CBC #### [address] [address] Neutrophils/100 WBC (Bld) 52.7 % Normal 37.0-80.0 [facility] ([place]) Comment on above: Performed By: #### A DIFF, MG, ANEU, GFR, BMP, CBC #### [address] [address] .GFRon 07-02-2023 GFR 85 ml/min/1.73sqm Normal [facility] ([place]) Comment on above: Result Comment: GFR [...] IPID, ADIFF, ANEU, CMP, CBC, GFR #### [address] [address] GFR Non- 70 ml/min/1.73sqm Normal [facility] ([place]) Comment on above: Result Comment: GFR [...] IPID, ADIFF, ANEU, CMP, CBC, GFR #### [address] [address] .NEUABSon 07-02-2023 Neutrophil, Absolute 2.9 10 3/mcL Normal 2.9-6.2 [facility] ([place]) Comment on above: Performed By: #### A DIFF, MG, ANEU, GFR, BMP, CBC #### [address] [address] BMPon 07-02-2023 BUN/Creatinine Ratio 11 ratio Normal 7-27 [facility] ([place]) Comment on above: Performed By: #### A DIFF, MG, ANEU, GFR, BMP, CBC #### [address] [address] Calcium [Mass/Vol] 8.5 mg/dL Normal 8.4-10.2 Counts include 234 beds at the [facility] ([place]) Comment on above: Performed By: #### A DIFF, MG, ANEU, GFR, BMP, CBC #### [address] [address] Chloride [Moles/Vol] 102 mmol/L Normal 98-107 [facility] ([place]) Comment on above: Performed By: #### A DIFF, MG, ANEU, GFR, BMP, CBC #### [address] [address] CO2 [Moles/Vol] 31 mmol/L Normal 23-31 [facility] ([place]) Comment on above: Performed By: #### A DIFF, MG, ANEU, GFR, BMP, CBC #### [address] [address] Creatinine [Mass/Vol] 0.79 mg/dL Normal 0.55-1.02 [facility] ([place]) Comment on above: Performed By: #### A DIFF, MG, ANEU, GFR, BMP, CBC #### [address] [address] Electrolyte Balance 5.0 mEq/L Normal 4.0-15.0 [facility] ([place]) Comment on above: Performed By: #### A DIFF, MG, ANEU, GFR, BMP, CBC #### [address] [address] Glucose [Mass/Vol] 144 mg/dL High 83-110 Counts include 234 beds at the [facility] ([place] Comment on above: Performed By: #### A DIFF, MG, ANEU, GFR, BMP, CBC #### [address] [address] Potassium [Moles/Vol] 3.9 mmol/L Normal 3.5-5.1 [facility] ([place]) Comment on above: Performed By: #### A DIFF, MG, ANEU, GFR, BMP, CBC #### [address] [address] Sodium [Moles/Vol] 138 mmol/L Normal 136-145 Counts include 234 beds at the [facility] ([place] Comment on above: Performed By: #### A DIFF, MG, ANEU, GFR, BMP, CBC #### [place] [id number] Urea nitrogen [Mass/Vol] 9 mg/dL Normal 7-18 [facility] ([place]) Comment on above: Performed By: #### A DIFF, MG, ANEU, GFR, BMP, CBC #### [place] [id number] CBCon 07-02-2023 Erythrocyte distribution width (RBC) [Ratio] 14.6 % High 11.5-14.5 [facility] ([place]) Comment on above: Performed By: #### A DIFF, MG, ANEU, GFR, BMP, CBC #### [place] [phone] Hematocrit (Bld) [Volume fraction] 35.7 % Low 37.0-47.0 [facility] ([place]) Comment on above: Performed By: #### A DIFF, MG, ANEU, GFR, BMP, CBC #### [address] [address] Hgb 11.3 G/dL Low 12.0-16.0 [facility] ([place]) Comment on above: Performed By: #### A DIFF, MG, ANEU, GFR, BMP, CBC #### [address] [address] MCH (RBC) [Entitic mass] 28.1 pg Normal 27.0-31.2 [facility] ([place]) Comment on above: Performed By: #### A DIFF, MG, ANEU, GFR, BMP, CBC #### [place] [phone] MCHC 31.7 G/dL Low 33.0-37.0 [facility] ([place]) Comment on above: Performed By: #### A DIFF, MG, ANEU, GFR, BMP, CBC #### [address] [address] MCV (RBC) [Entitic vol] 88.6 fL Normal 80.0-94.0 A [facility] ([place]) Comment on above: Performed By: #### A DIFF, MG, ANEU, GFR, BMP, CBC #### [address] [address] Platelet 159 10 3/mcL Normal 130-400 [facility] ([place]) Comment on above: Performed By: #### A DIFF, MG, ANEU, GFR, BMP, CBC #### [address] [address] Platelet mean volume (Bld) [Entitic vol] 6.6 fL Low 7.4-10.4 [facility] ([place]) Comment on above: Performed By: #### A DIFF, MG, ANEU, GFR, BMP, CBC #### [address] [address] RBC 4.03 10 6/mcL Low 4.20-5.40 [facility] ([place]) Comment on above: Performed By: #### A DIFF, MG, ANEU, GFR, BMP, CBC #### [address] [address] WBC 5.5 10 3/mcL Normal 4.6-10.8 [facility] ([place]) Comment on above: Performed By: #### A DIFF, MG, ANEU, GFR, BMP, CBC #### [address] [address] LABORATORYOrdered By: SYSTEM SYSTEM on 07-02-2023 Basophil, [...] [Mass/Vol] 1.7 mg/dL Low 1.8-2.4 [facility] ([place]) Comment on above: Performed By: #### L IPID, ADIFF, ANEU, CMP, CBC, GFR #### [address] [address] .Auto Diffon 07-01-2023 Basophil, Absolute 0.0 10 3/mcL Normal 0.0-0.2 [facility] ([place]) Comment on above: Performed By: #### L IPID, ADIFF, ANEU, CMP, CBC, GFR #### [address] [address] Basophils/100 WBC (Bld) 0.5 % Normal 0.0-2.5 A [facility] ([place]) Comment on above: Performed By: #### L IPID, ADIFF, ANEU, CMP, CBC, GFR #### [address] [address] Eosinophil, Absolute 0.4 10 3/mcL Normal 0.0-0.4 [facility] ([place]) Comment on above: Performed By: #### L IPID, ADIFF, ANEU, CMP, CBC, GFR #### [address] [address] Eosinophils/100 WBC (Bld) 5.7 % Normal 0.0-7.0 [facility] ([place]) Comment on above: Performed By: #### L IPID, ADIFF, ANEU, CMP, CBC, GFR #### [address] [address] Lymphocyte, Absolute 1.9 10 3/mcL Normal 0.8-3.9 [facility] ([place]) Comment on above: Performed By: #### L IPID, ADIFF, ANEU, CMP, CBC, GFR #### [address] [address] Lymphocytes/100 WBC (Bld) 28.0 % Normal 10.0-50.0 [facility] ([place]) Comment on above: Performed By: #### L IPID, ADIFF, ANEU, CMP, CBC, GFR #### [address] [address] Monocyte, Absolute 0.5 10 3/mcL Normal 0.2-1.0 [facility] ([place]) Comment on above: Performed By: #### L IPID, ADIFF, ANEU, CMP, CBC, GFR #### [address] [address] Monocytes/100 WBC (Bld) 6.9 % Normal 1.7-13.0 A [facility] ([place]) Comment on above: Performed By: #### L IPID, ADIFF, ANEU, CMP, CBC, GFR #### [address] [address] Neutrophils/100 WBC (Bld) 58.9 % Normal 37.0-80.0 [facility] ([place]) Comment on above: Performed By: #### L IPID, ADIFF, ANEU, CMP, CBC, GFR #### [address] [address] .GFRon 07-01-2023 GFR 73 ml/min/1.73sqm Normal [facility] ([place]) Comment on above: Result Comment: GFR [...] IPID, ADIFF, ANEU, CMP, CBC, GFR #### [address] [address] GFR Non- 60 ml/min/1.73sqm Normal [facility] ([place]) Comment on above: Result Comment: GFR [...] IPID, ADIFF, ANEU, CMP, CBC, GFR #### [address] [address] .NEUABSon 07-01-2023 Neutrophil, Absolute 4.1 10 3/mcL Normal 2.9-6.2 [facility] ([place]) Comment on above: Performed By: #### L IPID, ADIFF, ANEU, CMP, CBC, GFR #### [address] [address] BMPon 07-01-2023 BUN/Creatinine Ratio 12 ratio Normal 04-30 [facility] ([place]) Comment on above: Performed By: #### L IPID, ADIFF, ANEU, CMP, CBC, GFR #### [address] [address] Calcium [Mass/Vol] 8.5 mg/dL Normal 8.4-10.2 Counts include 234 beds at the [facility] ([place]) Comment on above: Performed By: #### L IPID, ADIFF, ANEU, CMP, CBC, GFR #### [address] [address] Chloride [Moles/Vol] 103 mmol/L Normal 98-107 [facility] ([place]) Comment on above: Performed By: #### L IPID, ADIFF, ANEU, CMP, CBC, GFR #### [address] [address] CO2 [Moles/Vol] 32 mmol/L High 23-31 [facility] ([place]) Comment on above: Performed By: #### L IPID, ADIFF, ANEU, CMP, CBC, GFR #### [address] [address] Creatinine [Mass/Vol] 0.90 mg/dL Normal 0.55-1.02 [facility] ([place]) Comment on above: Performed By: #### L IPID, ADIFF, ANEU, CMP, CBC, GFR #### [address] [address] Electrolyte Balance 5.0 mEq/L Normal 4.0-15.0 [facility] ([place]) Comment on above: Performed By: #### L IPID, ADIFF, ANEU, CMP, CBC, GFR #### [address] [address] Glucose [Mass/Vol] 138 mg/dL High 83-110 Counts include 234 beds at the [facility] ([place]) Comment on above: Performed By: #### L IPID, ADIFF, ANEU, CMP, CBC, GFR #### [address] [address] Potassium [Moles/Vol] 4.0 mmol/L Normal 3.5-5.1 [facility] ([place]) Comment on above: Performed By: #### L IPID, ADIFF, ANEU, CMP, CBC, GFR #### [address] [address] Sodium [Moles/Vol] 140 mmol/L Normal 136-145 Counts include 234 beds at the [facility] ([place]) Comment on above: Performed By: #### L IPID, ADIFF, ANEU, CMP, CBC, GFR #### [place] [id number] Urea nitrogen [Mass/Vol] 11 mg/dL Normal 7-18 [facility] ([place]) Comment on above: Performed By: #### L IPID, ADIFF, ANEU, CMP, CBC, GFR #### [place] [address] CBCon 07-01-2023 Erythrocyte distribution width (RBC) [Ratio] 14.6 % High 11.5-14.5 [facility] ([place]) Comment on above: Performed By: #### L IPID, ADIFF, ANEU, CMP, CBC, GFR #### [place] [address] Hematocrit (Bld) [Volume fraction] 36.2 % Low 37.0-47.0 [facility] ([place]) Comment on above: Performed By: #### L IPID, ADIFF, ANEU, CMP, CBC, GFR #### [place] [address] Hgb 11.6 G/dL Low 12.0-16.0 [facility] ([place]) Comment on above: Performed By: #### L IPID, ADIFF, ANEU, CMP, CBC, GFR #### [place] [id number] MCH (RBC) [Entitic mass] 28.1 pg Normal 27.0-31.2 [facility] ([place]) Comment on above: Performed By: #### L IPID, ADIFF, ANEU, CMP, CBC, GFR #### [place] [address] MCHC 32.0 G/dL Low 33.0-37.0 [facility] ([place]) Comment on above: Performed By: #### L IPID, ADIFF, ANEU, CMP, CBC, GFR #### [place] [phone] MCV (RBC) [Entitic vol] 87.8 fL Normal 80.0-94.0 A [facility] ([place]) Comment on above: Performed By: #### L IPID, ADIFF, ANEU, CMP, CBC, GFR #### [address] [address] Platelet 170 10 3/mcL Normal 130-400 [facility] ([place]) Comment on above: Performed By: #### L IPID, ADIFF, ANEU, CMP, CBC, GFR #### [address] [address] Platelet mean volume (Bld) [Entitic vol] 6.4 fL Low 7.4-10.4 [facility] ([place]) Comment on above: Performed By: #### L IPID, ADIFF, ANEU, CMP, CBC, GFR #### [address] [address] RBC 4.12 10 6/mcL Low 4.20-5.40 [facility] ([place]) Comment on above: Performed By: #### L IPID, ADIFF, ANEU, CMP, CBC, GFR #### [address] [address] WBC 6.9 10 3/mcL Normal 4.6-10.8 [facility] ([place]) Comment on above: Performed By: #### L IPID, ADIFF, ANEU, CMP, CBC, GFR #### [address] [address] MGon 07-01-2023 Magnesium [Mass/Vol] 1.5 mg/dL Low 1.8-2.4 [facility] ([place]) Comment on above: Performed By: #### L IPID, ADIFF, ANEU, CMP, CBC, GFR #### [address] [address] .Auto Diffon 06-30-2023 Basophil, Absolute 0.0 10 3/mcL Normal 0.0-0.2 [facility] ([place]) Comment on above: Performed By: #### L IPID, ADIFF, ANEU, CMP, CBC, GFR #### [address] [address] Basophils/100 WBC (Bld) 0.4 % Normal 0.0-2.5 A [facility] ([place]) Comment on above: Performed By: #### L IPID, ADIFF, ANEU, CMP, CBC, GFR #### [address] [address] Eosinophil, Absolute 0.5 10 3/mcL High 0.0-0.4 [facility] ([place]) Comment on above: Performed By: #### L IPID, ADIFF, ANEU, CMP, CBC, GFR #### [address] [address] Eosinophils/100 WBC (Bld) 4.7 % Normal 0.0-7.0 [facility] ([place]) Comment on above: Performed By: #### L IPID, ADIFF, ANEU, CMP, CBC, GFR #### [address] [address] Lymphocyte, Absolute 1.7 10 3/mcL Normal 0.8-3.9 [facility] ([place]) Comment on above: Performed By: #### L IPID, ADIFF, ANEU, CMP, CBC, GFR #### [address] [address] Lymphocytes/100 WBC (Bld) 17.7 % Normal 10.0-50.0 [facility] ([place]) Comment on above: Performed By: #### L IPID, ADIFF, ANEU, CMP, CBC, GFR #### [address] [address] Monocyte, Absolute 0.5 10 3/mcL Normal 0.2-1.0 [facility] ([place]) Comment on above: Performed By: #### L IPID, ADIFF, ANEU, CMP, CBC, GFR #### [address] [address] Monocytes/100 WBC (Bld) 5.4 % Normal 1.7-13.0 A [facility] ([place]) Comment on above: Performed By: #### L IPID, ADIFF, ANEU, CMP, CBC, GFR #### [address] [address] Neutrophils/100 WBC (Bld) 71.8 % Normal 37.0-80.0 [facility] ([place]) Comment on above: Performed By: #### L IPID, ADIFF, ANEU, CMP, CBC, GFR #### [address] [address] .GFRon 06-30-2023 GFR 75 ml/min/1.73sqm Normal [facility] ([place]) Comment on above: Result Comment: GFR [...] IPID, ADIFF, ANEU, CMP, CBC, GFR #### [address] [address] GFR Non- 62 ml/min/1.73sqm Normal [facility] ([place]) Comment on above: Result Comment: GFR [...] IPID, ADIFF, ANEU, CMP, CBC, GFR #### [address] [address] .MDWon 06-30-2023 Monocyte Distribution Width 17.82 Normal 0.00-20.00 [facility] ([place]) Comment on above: Result Comment: For ED adult patients suspected of sepsis, MDW<=20.0 does not rule out sepsis or risk of sepsis Performed By: #### L IPID, ADIFF, ANEU, CMP, CBC, GFR #### [address] [address] .NEUABSon 06-30-2023 Neutrophil, Absolute 7.1 10 3/mcL High 2.9-6.2 [facility] ([place]) Comment on above: Performed By: #### L IPID, ADIFF, ANEU, CMP, CBC, GFR #### [place] [address] BMPon 06-30-2023 BUN/Creatinine Ratio 10 ratio Normal 7-27 [facility]) Comment on above: Performed By: #### L IPID, ADIFF, ANEU, CMP, CBC, GFR #### [address] [address] Calcium [Mass/Vol] 9.0 mg/dL Normal 8.4-10.2 Counts include 234 beds at the [facility] ([place]) Comment on above: Performed By: #### L IPID, ADIFF, ANEU, CMP, CBC, GFR #### [address] [address] Chloride [Moles/Vol] 100 mmol/L Normal 98-107 [facility] ([place]) Comment on above: Performed By: #### L IPID, ADIFF, ANEU, CMP, CBC, GFR #### [place] [address] CO2 [Moles/Vol] 33 mmol/L High 23-31 [facility] ([place]) Comment on above: Performed By: #### L IPID, ADIFF, ANEU, CMP, CBC, GFR #### [address] [address] Creatinine [Mass/Vol] 0.88 mg/dL Normal 0.55-1.02 [facility] ([place]) Comment on above: Performed By: #### L IPID, ADIFF, ANEU, CMP, CBC, GFR #### [address] [address] Electrolyte Balance 6.0 mEq/L Normal 4.0-15.0 [facility] ([place]) Comment on above: Performed By: #### L IPID, ADIFF, ANEU, CMP, CBC, GFR #### [address] [address] Glucose [Mass/Vol] 147 mg/dL High 83-110 Counts include 234 beds at the [facility] ([place]) Comment on above: Performed By: #### L IPID, ADIFF, ANEU, CMP, CBC, GFR #### [address] [address] Potassium [Moles/Vol] 3.8 mmol/L Normal 3.5-5.1 [facility] ([place]) Comment on above: Performed By: #### L IPID, ADIFF, ANEU, CMP, CBC, GFR #### [address] [address] Sodium [Moles/Vol] 139 mmol/L Normal 136-145 Counts include 234 beds at the [facility] ([place]) Comment on above: Performed By: #### L IPID, ADIFF, ANEU, CMP, CBC, GFR #### [address] [address] Urea nitrogen [Mass/Vol] 9 mg/dL Normal 7-18 [facility] ([place]) Comment on above: Performed By: #### L IPID, ADIFF, ANEU, CMP, CBC, GFR #### [address] [address] CBCon 06-30-2023 Erythrocyte distribution width (RBC) [Ratio] 14.6 % High 11.5-14.5 [facility] ([place]) Comment on above: Performed By: #### L IPID, ADIFF, ANEU, CMP, CBC, GFR #### [address] [address] Hematocrit (Bld) [Volume fraction] 42.0 % Normal 37.0-47.0 [facility] ([place]) Comment on above: Performed By: #### L IPID, ADIFF, ANEU, CMP, CBC, GFR #### [address] [address] Hgb 13.4 G/dL Normal 12.0-16.0 [facility] ([place]) Comment on above: Performed By: #### L IPID, ADIFF, ANEU, CMP, CBC, GFR #### [address] [address] MCH (RBC) [Entitic mass] 28.4 pg Normal 27.0-31.2 [facility] ([place]) Comment on above: Performed By: #### L IPID, ADIFF, ANEU, CMP, CBC, GFR #### [address] [address] MCHC 32.0 G/dL Low 33.0-37.0 [facility] ([place]) Comment on above: Performed By: #### L IPID, ADIFF, ANEU, CMP, CBC, GFR #### [address] [address] MCV (RBC) [Entitic vol] 88.5 fL Normal 80.0-94.0 [facility] ([place]) Comment on above: Performed By: #### L IPID, ADIFF, ANEU, CMP, CBC, GFR #### [address] [address] Platelet 188 10 3/mcL Normal 130-400 [facility] ([place]) Comment on above: Performed By: #### L IPID, ADIFF, ANEU, CMP, CBC, GFR #### [address] [address] Platelet mean volume (Bld) [Entitic vol] 6.2 fL Low 7.4-10.4 [facility] ([place]) Comment on above: Performed By: #### L IPID, ADIFF, ANEU, CMP, CBC, GFR #### [address] [address] RBC 4.74 10 6/mcL Normal 4.20-5.40 [facility] ([place]) Comment on above: Performed By: #### L IPID, ADIFF, ANEU, CMP, CBC, GFR #### [address] [address] WBC 9.9 10 3/mcL Normal 4.6-10.8 [facility] ([place]) Comment on above: Performed By: #### L IPID, ADIFF, ANEU, CMP, CBC, GFR #### [address] [address] LABORATORYOrdered By: SYSTEM SYSTEM on 06-30-2023 Monocyte distribution width Auto (Bld) [Entitic vol] 17.82 1 Invalid Interpretation Code 0.00 - 20.00 AO Workflow SS Comment on above: Result Comment: For ED adult patients suspected of sepsis, MDW<=20.0 does not rule out sepsis or risk of sepsis [facility] 06-30-2023 U Creatinine 90.7 mg/dL Normal 28.0-117.0 [facility] ([place]) Comment on above: Performed By: #### L IPID, ADIFF, ANEU, CMP, CBC, GFR #### [address] [address] U Microalb 1927 mcg/dL Normal [facility] ([place]) Comment on above: Performed By: #### L IPID, ADIFF, ANEU, CMP, CBC, GFR #### [address] [address] U Ratio Alb/Cre 21 mcg/mg Normal 0-30 [facility]) Comment on above: Performed By: #### L IPID, ADIFF, ANEU, CMP, CBC, GFR #### [address] [address] XR ANKLE [facility] XR ANKLE AND FOOT 6 VIEWS [...] 06/30/2023 4:00:26 PM Ordering Provider: VICENTE MC [facility] ([place]) XR KNEE 1 OR 2 [...] 06/30/2023 4:01:46 PM Ordering Provider: VICENTE Valadez [facility] ([place]) .Auto Diffon 02-05-2023 Basophil, Absolute 0.1 10 3/mcL Normal 0.0-0.2 [facility] ([place]) Comment on above: Performed By: #### L IPID, ADIFF, ANEU, CMP, CBC, GFR #### [address] [address] Basophils/100 WBC (Bld) 0.7 % Normal 0.0-2.5 A [facility] ([place]) Comment on above: Performed By: #### L IPID, ADIFF, ANEU, CMP, CBC, GFR #### [address] [address] Eosinophil, Absolute 0.7 10 3/mcL High 0.0-0.4 [facility] ([place]) Comment on above: Performed By: #### L IPID, ADIFF, ANEU, CMP, CBC, GFR #### [address] [address] Eosinophils/100 WBC (Bld) 8.8 % High 0.0-7.0 [facility] ([place]) Comment on above: Performed By: #### L IPID, ADIFF, ANEU, CMP, CBC, GFR #### [address] [address] Lymphocyte, Absolute 2.8 10 3/mcL Normal 0.8-3.9 [facility] ([place]) Comment on above: Performed By: #### L IPID, ADIFF, ANEU, CMP, CBC, GFR #### [address] [address] Lymphocytes/100 WBC (Bld) 34.0 % Normal 10.0-50.0 [facility] ([place]) Comment on above: Performed By: #### L IPID, ADIFF, ANEU, CMP, CBC, GFR #### [address] [address] Monocyte, Absolute 0.6 10 3/mcL Normal 0.2-1.0 [facility] ([place]) Comment on above: Performed By: #### L IPID, ADIFF, ANEU, CMP, CBC, GFR #### [address] [address] Monocytes/100 WBC (Bld) 7.3 % Normal 1.7-13.0 A [facility] ([place]) Comment on above: Performed By: #### L IPID, ADIFF, ANEU, CMP, CBC, GFR #### [address] [address] Neutrophils/100 WBC (Bld) 49.2 % Normal 37.0-80.0 [facility] ([place]) Comment on above: Performed By: #### L IPID, ADIFF, ANEU, CMP, CBC, GFR #### [address] [address] .GFRon 02-05-2023 GFR Non- 63 ml/min/1.73sqm Normal [facility] ([place]) Comment on above: Result Comment: GFR [...] IPID, ADIFF, ANEU, CMP, CBC, GFR #### [address] [address] GFR 76 ml/min/1.73sqm Normal [facility] ([place]) Comment on above: Result Comment: GFR [...] IPID, ADIFF, ANEU, CMP, CBC, GFR #### [place] [id number] .NEUABSon 02-05-2023 Neutrophil, Absolute 4.1 10 3/mcL Normal 2.9-6.2 [facility] ([place]) Comment on above: Performed By: #### L IPID, ADIFF, ANEU, CMP, CBC, GFR #### [place] [address] CBCon 02-05-2023 Erythrocyte distribution width (RBC) [Ratio] 14.1 % Normal 11.5-14.5 [facility] ([place]) Comment on above: Performed By: #### L IPID, ADIFF, ANEU, CMP, CBC, GFR #### [place] [address] Hematocrit (Bld) [Volume fraction] 45.2 % Normal 37.0-47.0 [facility] ([place]) Comment on above: Performed By: #### L IPID, ADIFF, ANEU, CMP, CBC, GFR #### [place] [address] Hgb 14.4 G/dL Normal 12.0-16.0 [facility] ([place]) Comment on above: Performed By: #### L IPID, ADIFF, ANEU, CMP, CBC, GFR #### [place] [id number] MCH (RBC) [Entitic mass] 26.9 pg Low 27.0-31.2 [facility] ([place]) Comment on above: Performed By: #### L IPID, ADIFF, ANEU, CMP, CBC, GFR #### [address] [address] MCHC 31.8 G/dL Low 33.0-37.0 [facility] ([place]) Comment on above: Performed By: #### L IPID, ADIFF, ANEU, CMP, CBC, GFR #### [address] [address] MCV (RBC) [Entitic vol] 84.7 fL Normal 80.0-94.0 A [facility] ([place]) Comment on above: Performed By: #### L IPID, ADIFF, ANEU, CMP, CBC, GFR #### [address] [address] Platelet 237 10 3/mcL Normal 130-400 [facility] ([place]) Comment on above: Performed By: #### L IPID, ADIFF, ANEU, CMP, CBC, GFR #### [place] [id number] Platelet mean volume (Bld) [Entitic vol] 6.5 fL Low 7.4-10.4 [facility] ([place]) Comment on above: Performed By: #### L IPID, ADIFF, ANEU, CMP, CBC, GFR #### [address] [address] RBC 5.34 10 6/mcL Normal 4.20-5.40 [facility] ([place]) Comment on above: Performed By: #### L IPID, ADIFF, ANEU, CMP, CBC, GFR #### [address] [address] WBC 8.3 10 3/mcL Normal 4.6-10.8 [facility] ([place]) Comment on above: Performed By: #### L IPID, ADIFF, ANEU, CMP, CBC, GFR #### [address] [address] CMPon 02-05-2023 Albumin Level 3.9 G/dL Normal 3.4-4.8 [facility] ([place]) Comment on above: Performed By: #### L IPID, ADIFF, ANEU, CMP, CBC, GFR #### [address] [address] Albumin/Globulin [Mass ratio] 1.3 {ratio} Normal 1.1-2.5 [facility] ([place]) Comment on above: Performed By: #### L IPID, ADIFF, ANEU, CMP, CBC, GFR #### [address] [address] ALP [Catalytic activity/Vol] 65 U/L Normal 40-135 [facility] ([place]) Comment on above: Performed By: #### L IPID, ADIFF, ANEU, CMP, CBC, GFR #### [address] [address] ALT [Catalytic activity/Vol] 20 U/L Normal 14-59 [facility] ([place]) Comment on above: Performed By: #### L IPID, ADIFF, ANEU, CMP, CBC, GFR #### [address] [address] AST [Catalytic activity/Vol] 19 U/L Normal 10-40 [facility] ([place]) Comment on above: Performed By: #### L IPID, ADIFF, ANEU, CMP, CBC, GFR #### [address] [address] Bili Total 0.7 mg/dL Normal 0.2-1.0 [facility] ([place]) Comment on above: Result Comment: Use of this assay is not recommended for patients undergoing treatment with eltrombopag due to the potential for falsely elevated results. Performed By: #### L IPID, ADIFF, ANEU, CMP, CBC, GFR #### [address] [address] BUN/Creatinine Ratio 14 ratio Normal 7-27 [facility] ([place]) Comment on above: Performed By: #### L IPID, ADIFF, ANEU, CMP, CBC, GFR #### [address] [address] Calcium [Mass/Vol] 10.1 mg/dL Normal 8.4-10.2 Counts include 234 beds at the [facility] ([place]) Comment on above: Performed By: #### L IPID, ADIFF, ANEU, CMP, CBC, GFR #### [address] [address] Chloride [Moles/Vol] 100 mmol/L Normal 98-107 [facility] ([place]) Comment on above: Performed By: #### L IPID, ADIFF, ANEU, CMP, CBC, GFR #### [address] [address] CO2 [Moles/Vol] 33 mmol/L High 23-31 [facility] ([place]) Comment on above: Performed By: #### L IPID, ADIFF, ANEU, CMP, CBC, GFR #### [place] [address] Creatinine [Mass/Vol] 0.87 mg/dL Normal 0.55-1.02 [facility] ([place]) Comment on above: Performed By: #### L IPID, ADIFF, ANEU, CMP, CBC, GFR #### [address] [address] Electrolyte Balance 8.0 mEq/L Normal 4.0-15.0 [facility] ([place]) Comment on above: Performed By: #### L IPID, ADIFF, ANEU, CMP, CBC, GFR #### [address] [address] Globulin 3.0 G/dL Normal [facility] ([place]) Comment on above: Performed By: #### L IPID, ADIFF, ANEU, CMP, CBC, GFR #### [address] [address] Glucose [Mass/Vol] 127 mg/dL High 83-110 Counts include 234 beds at the [facility] ([place]) Comment on above: Performed By: #### L IPID, ADIFF, ANEU, CMP, CBC, GFR #### [address] [address] Potassium [Moles/Vol] 4.7 mmol/L Normal 3.5-5.1 [facility] ([place]) Comment on above: Performed By: #### L IPID, ADIFF, ANEU, CMP, CBC, GFR #### [place] [address] [place], [place] [address] Sodium [Moles/Vol] 141 mmol/L Normal 136-145 Counts include 234 beds at the [facility] ([place]) Comment on above: Performed By: #### L IPID, ADIFF, ANEU, CMP, CBC, GFR #### [address] [address] Total Protein 6.9 G/dL Normal 6.4-8.2 [facility] ([place]) Comment on above: Performed By: #### L IPID, ADIFF, ANEU, CMP, CBC, GFR #### [place] [address] [place], [place] [address] Urea nitrogen [Mass/Vol] 12 mg/dL Normal 7-18 [facility] ([place]) Comment on above: Performed By: #### L IPID, ADIFF, ANEU, CMP, CBC, GFR #### [address] [address] LABORATORYOrdered By: SYSTEM SYSTEM on 02-05-2023 Albumin [...] [Mass/Vol] 147 mg/dL Normal 0-200 [facility] ([place]) Comment on above: Result Comment: Chol esterol Reference Interval: Less than 200 Desirable 200-239 Borderline high risk 240 and above High risk Performed By: #### L IPID, ADIFF, ANEU, CMP, CBC, GFR #### [place] [address] [place], [place] [address] Cholesterol in HDL [Mass/Vol] 59 mg/dL Normal 40-60 [facility] ([place]) Comment on above: Performed By: #### L IPID, ADIFF, ANEU, CMP, CBC, GFR #### [place] [id number] [place], [place] [address] Cholesterol in LDL [Mass/Vol] 54 mg/dL Normal 0-130 [facility] ([place]) Comment on above: Performed By: #### L IPID, ADIFF, ANEU, CMP, CBC, GFR #### [place] [address] [place], [place] [address] Triglyceride [Mass/Vol] 172 mg/dL High 0-150 A [facility] ([place]) Comment on above: Result Comment: Trig lyceride Reference Interval: Less than 150 Normal 150-199 Borderline high risk 200-499 High risk 500 or higher Very high risk Performed By: #### L IPID, ADIFF, ANEU, CMP, CBC, GFR #### [place] [id number] [place], [place] [address] LABORATORYOrdered By: Karli Benites on 01-29-2022 Albumin [...] Body temperature 97.3 [degF] Balwinder Alves MD [facility] 07-06-2025 15:25-0400 Diastolic blood pressure 79 mm[Hg] Balwinder Alves MD [facility] 07-06-2025 15:25-0400 Heart rate 72 /min Balwinder Alves MD [facility] 07-06-2025 15:25-0400 Respiratory rate 16 /min Balwinder Alves MD [facility] 07-06-2025 15:25-0400 SaO2% (BldA) [Mass fraction] 93 % Balwinder Alves MD [facility] 07-06-2025 15:25-0400 Systolic blood pressure 165 mm[Hg] Balwinder Alves MD [facility] 07-06-2025 14:45-0400 Inhaled oxygen flow rate 2 L/min Balwinder Alves MD [facility] 07-06-2025 11:240400 Body height 175.26 cm Balwinder Alves MD [facility] 07-06-2025 11:240400 Body mass index (BMI) [Ratio] 41.3 kg/m2 Balwinder Alves MD [facility] 07-06-2025 11:240400 Body weight 127 kg Balwinder Alves MD [facility] 06-30-2025 10:0400 Body height 175.26 cm Balwinder Alves MD [facility] 06-30-2025 10:21-0400 Body mass index (BMI) [Ratio] 41 kg/m2 Balwinder Alves MD [facility] 06-30-2025 10:21-0400 Body temperature 97.9 [degF] Balwinder Alves MD [facility] 06-30-2025 10:21-0400 Body weight 126.09 kg Balwinder Alves MD [facility] 06-30-2025 10:21-0400 Diastolic blood pressure 78 mm[Hg] Balwinder Alves MD [facility] 06-30-2025 10:21-0400 Heart rate 78 /min Balwinder Alves MD [facility] 06-30-2025 10:21-0400 Systolic blood pressure 124 mm[Hg] Balwinder Alves MD [facility] 05-17-2025 10:04-0400 Body height 175.26 cm Balwinder Alves MD [facility] 05-17-2025 10:04-0400 Body mass index (BMI) [Ratio] 39.9 kg/m2 Balwinder Alves MD [facility] 05-17-2025 10:04-0400 Body weight 122.46 kg Balwinder Alves MD [facility] 05-17-2025 10:04-0400 Diastolic blood pressure 90 mm[Hg] Balwinder Alves MD [facility] 05-17-2025 10:04-0400 Heart rate 76 /min Balwinder Alves MD [facility] 05-17-2025 10:04-0400 Systolic blood pressure 150 mm[Hg] Balwinder Alves MD [facility] 02-06-2024 20:00-0400 Body temperature 98 [degF] [facility] 02-06-2024 20:00-0400 Diastolic blood pressure 73 mm[Hg] [facility] 02-06-2024 20:00-0400 Heart rate 68 /min [facility] 02-06-2024 20:00-0400 Respiratory rate 18 /min [facility] 02-06-2024 20:00-0400 SaO2% (BldA) [Mass fraction] 97 % [facility] 02-06-2024 20:00-0400 Systolic blood pressure 173 mm[Hg] [facility] 02-06-2024 15:49-0400 Body height 175.26 cm [facility] 02-06-2024 15:49-0400 Body mass index (BMI) [Ratio] 38.9 kg/m2 [facility] 02-06-2024 15:49-0400 Body weight 119.74 kg [facility] 12-09-2023 10:13-0500 Body weight 120.2 kg Tete Trevino PA Work Phone: [facility] 12-09-2023 10:13-0500 Diastolic blood pressure 66 mm[Hg] Tete BenavidesVipVentaler PA Work Phone: [facility] 12-09-2023 10:13-0500 Heart rate 69 /min Tete BenavidesVipVentaler PA Work Phone: [facility] 12-09-2023 10:13-0500 Systolic blood pressure 190 mm[Hg] Tete BenavidesVipVentaler PA Work Phone: [facility] 07-16-2023 10:53-0400 Body height 167.64 cm [employer] Laci Brewer [employer]PER[employer]OR Work Phone: [facility] 07-16-2023 10:53-0400 Body mass index (BMI) [Ratio] 45.8 kg/m2 [employer] Laci Brewer [employer] SUPERVISOR Work Phone: [facility] 07-16-2023 10:53-0400 Body weight 128.82 kg [employer] SUPER[employer] Laci Brewer [employer] SUPERVISOR Work Phone: [facility] 07-04-2023 19:10-0400 Body temperature 98.24 [degF] ROHAN MCDOWELL [employer]SEK[employer] [facility] 07-04-2023 19:10-0400 Diastolic Blood Pressure Non-Invasive 46 1 ROHAN TREMAYNEER [employer] [facility] 07-04-2023 19:10-0400 Heart rate 78 /min ROHAN TREMAYNEER [employer] [facility] 07-04-2023 19:10-0400 Reason For Taking VItal Signs ROHAN JULY [employer] [facility] 07-04-2023 19:10-0400 Respiratory rate 18 /min ROHAN TREMAYNEER [employer]ICE [employer] [facility] 07-04-2023 19:10-0400 Systolic Blood Pressure Non-Invasive 142 1 ROHAN CASPERER [employer]IOR HOU[employer]KEE[employer] [facility] 07-04-2023 16:39-0400 Diastolic Blood Pressure Non-Invasive 60 1 ROHAN KAPPER [employer]ICE [employer]IOR HOU[employer] [facility] 07-04-2023 16:39-0400 Systolic Blood Pressure Non-Invasive 158 1 ROHAN TREMAYNEER [employer]IOR [employer] [facility] 07-04-2023 16:22-0400 Body temperature 97.88 [degF] ROHAN CASPERER [employer] [facility] 07-04-2023 16:22-0400 Diastolic Blood Pressure Non-Invasive 121 1 ROHAN TREMAYNEER [employer] [facility] 07-04-2023 16:22-0400 Heart rate 72 /min ROHAN KAPPER [employer]ICE [employer]IOR [employer] [facility] 07-04-2023 16:22-0400 Respiratory rate 20 /min ROHAN KAPPER [employer]IOR [employer] [facility] 07-04-2023 16:22-0400 Systolic Blood Pressure Non-Invasive 152 1 ROHAN KAPPER [employer]IOR HOU[employer] [facility] 07-04-2023 12:17-0400 Body temperature 97.88 [degF] ROHAN KAPPER [employer] [facility] 07-04-2023 12:17-0400 Heart rate 72 /min ROHAN KAPPER [employer]IOR [employer] [facility] 07-04-2023 12:17-0400 Respiratory rate 20 /min ROHAN KAPPER [employer]ICE [employer] [facility] 07-04-2023 11:20-0400 Heart rate 74 /min ROHAN KAPPER [employer]IOR HOU[employer] [facility] 07-04-2023 07:54-0400 Heart rate 74 /min ROHAN KAPPER [employer]IOR [employer] [facility] 07-04-2023 04:11-0400 Heart rate 82 /min ROHAN KAPPER [employer]IOR [employer] [facility] 07-04-2023 04:11-0400 Reason For Taking VItal Signs ROHAN KAPPER [employer] [facility] 07-03-2023 23:30-0400 Reason For Taking VItal Signs ROHAN KAPPER [employer] [facility] 07-03-2023 03:07-0400 Heart rate 78 /min ROHAN KAPPER [employer] [facility] 07-02-2023 22:59-0400 Heart rate 82 /min ROHAN KAPPER [employer] [facility] 06-30-2023 18:36-0400 Body height 160 cm ROHAN KAPPER [employer] [facility] 06-30-2023 18:36-0400 Body weight 128 kg ROHAN KAPPER [employer] [facility] 06-30-2023 18:36-0400 Body weight 50 kg/m2 ROHAN KAPPER [employer]IOR [employer] [facility] 06-30-2023 15:17-0400 Blood Pressure Location ROHAN KAPPER [employer] [facility] 06-30-2023 15:17-0400 Blood Pressure Method ROHAN KAPPER [employer] [facility] Encounters Encounter Date Encounter Type Care Provider Facility Start: 08-11-2025 End: 08-11-2025 ambulatory Balwinder Alves Facility:[facility] Start: 07-31-2025 End: 07-31-2025 ambulatory Balwinder Alves Facility:[facility] Start: 07-24-2025 ambulatory Balwindre MARSHALL Facil ity:[facility] Start: 07-10-2025 Registered Referred Balwinder Alves MD - [facility] Start: 07-10-2025 End: 07-10-2025 ambulatory Balwinder MARSHALL Facility:[facility] Start: 07-06-2025 ambulatory Balwinder Alves Facility: [facility] Start: 07-06-2025 Non-patient / Non-visit Dr. Dorota taylor MD -[facility] Start: 07-06-2025 End: 07-06-2025 Admission to same day surgery center Dr. Dorota James MD [facility] Start: 07-06-2025 End: 07-06-2025 ambulatory Balwinder Alves MD [facility] Start: 07-03-2025 Registered Referred Balwinder Alves MD - [facility] Start: 07-03-2025 End: 07-03-2025 ambulatory Balwinder MARSHALL Facility:[facility] Start: 06-30-2025 End: 06-30-[address] Dorota James MD -[facility] Work Phone: Start: 06-30-2025 End: 06-30-2025 ambulatory Balwinder Alves MD -[facility] Start: 06-26-2025 ambulatory Balwinder Alves O[facility] Facil ity:[facility] Start: 06-26-2025 Registered Referred Balwinder Alves MD [facility] Start: 06-15-2025 Registered Referred Balwinder Alves MD [facility] Start: 06-15-2025 End: 06-15-2025 ambulatory Balwinder Alves Facility:[facility] Start: 06-01-2025 End: 06-01-[address] Balwinder Alves MD Work Phone: [facility] Start: 06-01-2025 End: 06-01-2025 Departed Referred Balwinder Alves MD [facility] Start: 06-01-2025 Registered Referred Balwinder Alves MD [facility] Start: 06-01-2025 End: 06-01-2025 ambulatory Balwinder Alves Facility:[facility] Start: 05-17-2025 End: 05-17-[address] Dorota James MD -[facility] Work Phone: Start: 05-17-2025 End: 05-17-2025 ambulatory Balwinder Alves MD -[facility] Start: 05-17-2025 End: 05-17-2025 ambulatory Balwinder Alves Facility:[facility] Start: 04-04-2025 Non-patient / Non-visit Dr. Dorota taylor MD -[facility] Work Phone: Start: 03-31-2025 End: 03-31-2025 ambulatory Balwinder Alves MD -Cat Scan [facility] Start: 03-31-2025 End: 03-31-[address] Dorota James MD -Cat Scan [facility] Work Phone: Start: 03-31-2025 End: 03-31-2025 ambulatory Balwinder Alves Facility:[facility] Start: 03-16-2025 Registered Referred Balwinder Fontanez [facility] Start: 03-16-2025 End: 03-16-2025 ambulatory Balwinder MARSHALL Facility:[facility] Start: 03-15-2025 Registered Referred Balwinder Alves MD [facility] Start: 03-15-2025 End: 03-15-2025 ambulatory Balwinder MARSHALL Facility:[facility] Start: 03-02-2025 ambulatory Balwinder MARSHALL Facil ity:[facility] Start: 03-02-2025 Registered Referred Balwinder Alves MD [facility] Start: 02-07-2025 End: 02-07-2025 ambulatory Balwinder Alves MD [facility] Work Phone: Start: 02-07-2025 End: 02-07-2025 Departed Referred Balwinder FontanezJayden [facility] Start: 02-07-2025 End: 02-07-2025 ambulatory Balwinder MARSHALL Facility:[facility] Start: 01-23-2025 End: 01-23-2025 ambulatory Balwinder Alves MD [facility] Work Phone: Start: 01-23-2025 End: 01-23-2025 Departed Referred Balwinder FontanezJayden [facility] Start: 01-23-2025 End: 01-23-2025 ambulatory Balwinder MARSHALL Facility:[facility] Start: 01-09-2025 End: 01-09-2025 ambulatory Balwinder Alves MD [facility] Work Phone: Start: 01-09-2025 End: 01-09-[address] [facility] Start: 01-09-2025 End: 01-09-2025 ambulatory Balwinder Alves Facility:[facility] Start: 01-02-2025 End: 01-02-2025 ambulatory Balwinder Alves MD [facility] Work Phone: Start: 01-02-2025 End: 01-02-2025 Departed Referred Balwinder Mcgrath [facility] Start: 01-02-2025 Registered Referred Balwinder Fontanez [facility] Start: 01-02-2025 End: 01-02-2025 ambulatory Balwinder MARSHLAL Facility:[facility] Start: 12-26-2024 End: 12-26-2024 ambulatory Balwinder Alves MD [facility] Work Phone: Start: 12-26-2024 End: 12-26-2024 [facility] Start: 12-26-2024 Registered Referred Balwinder Alves MD [facility] Start: 12-26-2024 End: 12-26-2024 ambulatory Balwinder MARSHALL Facility:[facility] Start: 12-16-2024 End: 12-16-2024 ambulatory Balwinder Alves MD [facility] Work Phone: Start: 12-16-2024 End: 12-16-2024 Departed Referred Balwinder Alves MD -[facility] Start: 12-16-2024 Registered Referred Balwinder Alves MD - [facility] Start: 12-16-2024 End: 12-16-2024 ambulatory Balwinder MARSHALL Facility:[facility] Start: 12-14-2024 End: 12-14-2024 ambulatory Balwinder Alves MD [facility] Work Phone: Start: 12-14-2024 End: 12-14-2024 Departed Referred Balwinder Alves MD [facility] Start: 12-14-2024 End: 12-14-2024 ambulatory Balwinder MARSHALL Facility:[facility] Start: 10-10-2024 ambulatory Balwinder MARSHALL Facil ity:[facility] Start: 10-10-2024 Registered Referred Balwinder Alves MD [facility] Start: 09-14-2024 End: 09-14-2024 Departed Referred Balwinder FontanezJayden [facility] Start: 09-14-2024 End: 09-14-2024 ambulatory Balwinder MARSHALL Facility:[facility] Start: 02-06-2024 End: 02-06-2024 Emergency department patient visit [facility] Work Phone: Start: 12-14-2023 End: 12-14-2023 ambulatory [facility] Work Phone: Start: 12-14-2023 End: 12-14-2023 Departed Referred [facility] Start: 12-09-2023 End: 12-09-2023 ambulatory [facility] Start: 12-09-2023 End: 12-09-2023 Office outpatient visit 15 minutes Tete Carloshiral FITZGERALD Work Phone: [facility] Comment on above: Closed fracture of d istal end of left fibula, unspecified fracture morphology, initial encounter (Primary Dx) Start: 11-16-2023 Orders Only Tete FITZGERALD Work Phone: [facility] Comment on above: Closed fracture of d istal end of left fibula, unspecified fracture morphology, initial encounter (Primary Dx) Start: 10-14-2023 End: 10-14-2023 ambulatory [facility] Start: 10-14-2023 End: 10-14-2023 Office outpatient visit 15 minutes Tete FITZGERALD Work Phone: [facility] Comment on above: Closed fracture of d istal end of left fibula, unspecified fracture morphology, initial encounter; Acute left ankle pain Start: 10-09-2023 Orders Only Tete FITZGERALD Work Phone: [facility] Comment on above: Closed fracture of l eft ankle, initial encounter (Primary Dx) Start: 09-23-2023 End: 09-23-2023 ambulatory TANK STORAGE SUPERVISOR-C Laci Brewer TANK STORAGE SUPERVISOR Work Phone: [facility] Work Phone: Start: 09-23-2023 End: 09-23-2023 Departed Referred TANK STORAGE SUPERVISOR-C Laci Brewer TANK STORAGE SUPERVISOR Work Phone: [facility] Start: 09-14-2023 End: 09-14-2023 ambulatory TANK STORAGE SUPERVISOR-C Laci Brewer TANK STORAGE SUPERVISOR Work Phone: [facility] Work Phone: Start: 09-14-2023 End: 09-14-2023 Departed Referred TANK STORAGE SUPERVISOR-Sharon Brewer TANK STORAGE SUPERVISOR Work Phone: [facility] Start: 07-17-2023 Telephone encounter Zander Ureña MD Work Phone: [facility] Comment on above: Other (Appt ) Start: 07-16-2023 End: 07-16-2023 Patient encounter procedure TANK STORAGE SUPERVISOR-Sharon Brewer TANK STORAGE SUPERVISOR Work Phone: [facility] Work Phone: Start: 06-30-2023 End: 07-05-2023 ambulatory LACI BREWER MANDATE RETAIL SERVICE MERCHANDISER-SENIOR HOUSEKEEPER Facility:B Start: 06-30-2023 End: 07-04-2023 ambulatory ROHAN MCDOWELL MANDATE RETAIL SERVICE MERCHANDISER-SENIOR HOUSEKEEPER Facility:[facility] Start: 06-30-2023 End: 07-04-2023 Observation ROHAN MCDOWELL MANDATE RETAIL SERVICE MERCHANDISER-SENIOR HOUSEKEEPER [facility] Start: 02-05-2023 End: 02-06-2023 ambulatory LACI BELTRANHARPAL MANDATE RETAIL SERVICE MERCHANDISER-SENIOR HOUSEKEEPER Facility:[facility] Start: 02-05-2023 End: 02-05-2023 Patient encounter procedure LACI BELTRANHARPAL MANDATE RETAIL SERVICE MERCHANDISER-SENIOR HOUSEKEEPER [facility] Start: 01-29-2022 End: 01-29-2022 Patient encounter procedure LACI BELTRANHARPAL MANDATE RETAIL SERVICE MERCHANDISER-SENIOR HOUSEKEEPER [facility] Start: 07-17-2021 End: 07-17-2021 Patient encounter procedure LACI BELTRANHARPAL MANDATE RETAIL SERVICE MERCHANDISER-SENIOR HOUSEKEEPER [facility] Procedures Date Procedure Procedure Detail [...] DUTTON Start: 09-23-2023 Clostridium difficil e detection TANK STORAGE SUPERVISOR-C Laci Beltranharpal TANK STORAGE SUPERVISOR Work Phone: Start: 07-16-2023 Radiography of ankle TANK STORAGE SUPERVISOR -C Laci Brewer TANK STORAGE SUPERVISOR Work Phone: Start: 04-04-2023 Extraction of cataract ROHAN MCDOWELL MANDATE RETAIL SERVICE MERCHANDISER-SENIOR HOUSEKEEPER Comment on above: Left side Start: 02-09-2020 Ophthalmic examinati on and evaluation LACI BREWER MANDATE RETAIL SERVICE MERCHANDISER-SENIOR HOUSEKEEPER Comment on above: No retinopathy; [facility] Start: 03-22-2007 Arthroplasty of knee RY AN BALTES MANDATE RETAIL SERVICE MERCHANDISER-SENIOR HOUSEKEEPER Comment on above: BILATERAL Start: 03-05-2007 Arthroplasty of knee RY AN BALTES MANDATE RETAIL SERVICE MERCHANDISER-SENIOR HOUSEKEEPER Start: 10-05-1968 section LACI GUERRA MANDATE RETAIL SERVICE MERCHANDISER-SENIOR HOUSEKEEPER Cataract (disorder) LACI ROWAN MANDATE RETAIL SERVICE MERCHANDISER-SENIOR HOUSEKEEPER Comment on above: Right eye Cholecystectomy LACI BREWER MANDATE RETAIL SERVICE MERCHANDISER-SENIOR HOUSEKEEPER Hysterectomy LACI BREWER APR N-SENIOR HOUSEKEEPER Miscellaneous (quali fier value) ROHAN MCDOWELL MANDATE RETAIL SERVICE MERCHANDISER-SENIOR HOUSEKEEPER Comment on above: brain drains from br ain bleed 2013 Renal lithotripsy LACI DIAZ S MANDATE RETAIL SERVICE MERCHANDISER-SENIOR HOUSEKEEPER Sling, device (physi shauna object) LACI BREWER MANDATE RETAIL SERVICE MERCHANDISER-SENIOR HOUSEKEEPER Comment on above: Bladder H/o cystocele Tonsillectomy LACI BREWER AP RN-SENIOR HOUSEKEEPER Comment on above: as a teenager Plan of Treatment Date Care Activity Detail Author Start: 06-24-2026 DTaP/Tdap/Td Vaccines (2 - Td or Tdap) DTaP/Tdap/Td Vaccines (2 - Td or Tdap) [facility] Start: 07-31-2025 CT of abdomen and pelvis without contrast Abdomen/Pelvis without Cont [facility] Start: 07-31-2025 Patient encounter procedure Registered Clinical -Cat Scan [facility] Work Phone: Start: 07-24-2025 Registered Referred Registered Referred -[facility] Start: 07-06-2025 Anes lithotrp xtrcorp shock wave w/o water bath ANESTH KIDNEY STONE DESTRUCT [facility] Start: 07-06-2025 Cystoscopic insertion of ureteric stent CYSTOSCOPY AND TREATMENT [facility] Start: 07-06-2025 Extracorporeal shockwave lithotripsy of calculus of kidney FRAGMENTING OF KIDNEY STONE [facility] Start: 07-06-2025 Patient discharge [facility] Start: 07-06-2025 Peripherally inserted central catheter care [facility] Start: 07-03-2025 Registered Referred Registered Referred -[facility] Start: 05-17-2025 Electrocardiographic procedure [facility] Start: 01-23-2025 [facility] Start: 01-23-2025 Bacteria identified in Urine by Culture Urine Culture [facility] Start: 01-09-2025 Urine culture Urine Culture [facility] Start: 01-09-2025 [facility] Start: 01-02-2025 [facility] Start: 01-02-2025 Bacteria identified in Urine by Culture Urine Culture [facility] Start: 01-02-2025 Urine culture [facility] Start: 02-06-2024 [facility] Start: 11-25-2023 End: 11-16-2024 XR Ankle - left 3 Views XR ankle 3+ views left Imaging Routine Closed fracture of distal end of left fibula, unspecified fracture morphology, initial encounter Expected: 11/25/2023, Expires: 11/16/2024 [facility] Work Phone: Comment on above: Expected: 11/25/2023, Expires: Start: 11-25-2023 End: 11-25-2023 Patient encounter procedure 11/25/2023 10:30 AM EST Office Visit [facility] [address] [place] [address] [place] [id number] Tete Trevino PA [address] [facility] [address] [place], [place] [address] [facility] Start: 10-14-2023 End: 10-09-2024 XR Ankle - left 3 Views XR ankle 3+ views left Imaging Routine Closed fracture of left ankle, initial encounter Expected: 10/14/2023, Expires: 10/09/2024 [facility] Work Phone: Comment on above: Expected: 10/14/2023, Expires: Start: 10-14-2023 End: 10-14-2023 Patient encounter procedure 10/14/2023 10:00 AM EST Office Visit [facility] [address] [facility] [address] [place] [id number] Tete Trevino PA [address] [facility] [address] [place], [place] [id number] [facility] Start: 10-05-2023 Medicare Advantage Annual Wellness Visit Medicare Advantage Annual Wellness Visit [facility] Start: 06-05-2023 COVID-19 Vaccine ( season) COVID-19 Vaccine ( season) [facility] Start: 06-05-2023 COVID-19 Vaccine ( season) COVID-19 Vaccine ( season) [facility] Start: 06-05-2023 Influenza vaccination Influenza Vaccine (#1) [facility] Start: 06-03-2021 Zoster Vaccines (3 of 3) Zoster Vaccines (3 of 3) [facility] Start: 2008 Pneumococcal Vaccine: 65+ Years (1 - PCV) Pneumococcal Vaccine: 65+ Years (1 - PCV) [facility] Start: 2003 RSV Immunization aged 60 or older (1 - 1-dose 60+ series) RSV Immunization aged 60 or older (1 - 1-dose 60+ series) [facility] Start: 1993 Zoster Vaccines (1 of 2) Zoster Vaccines (1 of 2) [facility] Start: 1962 DTaP/Tdap/Td Vaccines (1 - Tdap) DTaP/Tdap/Td Vaccines (1 - Tdap) [facility] Start: 1955 Depression Screening Depression Screening [facility] Start: 1943 COVID-19 Vaccine (#1) COVID-19 Vaccine (#1) [facility] Start: 1943 Medicare Advantage Annual Wellness Visit (AWV) Medicare Advantage Annual Wellness Visit (AWV) [facility] Start: 1943 Screening for osteoporosis Bone Density Scan [facility] Basic metabolic 2008 panel with ionized calcium - Serum or Plasma [facility] CBC W Auto Different ial panel - Blood [facility] Patient Education ED Abscess Inc ision And Drainage ED Wound Care After Packing ... [facility] Work Phone: Patient referral [facility] Work Phone: Urine culture [facility] XR Abdomen Single view [facility] Immunizations Immunization Date Immunization Notes Care Provider Fa cili 07-03-2022 influenza virus vacc ine, unspecified formulation LACI BREWER MANDATE RETAIL SERVICE MERCHANDISER-SENIOR HOUSEKEEPER [facility] 01-14-2022 SARS-CoV-2 mRNA (ozddzkdllyj-evns-udnjyw e) vaccine LACI BREWER MANDATE RETAIL SERVICE MERCHANDISER-SENIOR HOUSEKEEPER [facility] 06-14-2021 influenza virus vacc ine, unspecified formulation LACI BREWER MANDATE RETAIL SERVICE MERCHANDISER-SENIOR HOUSEKEEPER [facility] 04-08-2021 zoster vaccine recombinant LACI BREWER MANDATE RETAIL SERVICE MERCHANDISER-SENIOR HOUSEKEEPER [facility] 01-01-2021 SARS-CoV-2 (COVID-19 ) mRNA BNT-162b2 vax LACI BREWER MANDATE RETAIL SERVICE MERCHANDISER-SENIOR HOUSEKEEPER [facility] 12-10-2020 SARS-CoV-2 (COVID-19 ) mRNA BNT-162b2 vax LACI BREWER MANDATE RETAIL SERVICE MERCHANDISER-SENIOR HOUSEKEEPER [facility] Comment on above: Result Comment: 2020: [id number] 05-06-2020 influenza virus vacc ine, unspecified formulation LACI BREWER MANDATE RETAIL SERVICE MERCHANDISER-SENIOR HOUSEKEEPER [facility] 05-06-2020 pneumococcal conjuga te vaccine, 13 valent LACI BREWER MANDATE RETAIL SERVICE MERCHANDISER-SENIOR HOUSEKEEPER [facility] 07-06-2019 influenza virus vacc ine, unspecified formulation LACI BREWER MANDATE RETAIL SERVICE MERCHANDISER-SENIOR HOUSEKEEPER [facility] 09-03-2018 influenza virus vacc ine, unspecified formulation LACI BREWER MANDATE RETAIL SERVICE MERCHANDISER-SENIOR HOUSEKEEPER [facility] 08-05-2018 influenza virus vacc ine, unspecified formulation LACI BREWER MANDATE RETAIL SERVICE MERCHANDISER-SENIOR HOUSEKEEPER [facility] 07-04-2018 influenza virus vacc ine, unspecified formulation LACI BREWER MANDATE RETAIL SERVICE MERCHANDISER-SENIOR HOUSEKEEPER [facility] 06-04-2018 influenza virus vacc ine, unspecified formulation LACI OSMAN MANDATE RETAIL SERVICE MERCHANDISER-SENIOR HOUSEKEEPER [facility] 06-23-2017 influenza virus vacc ine, unspecified formulation LACI OSMAN MANDATE RETAIL SERVICE MERCHANDISER-SENIOR HOUSEKEEPER [facility] 06-10-2017 influenza virus vacc ine, unspecified formulation LACI OSMAN MANDATE RETAIL SERVICE MERCHANDISER-SENIOR HOUSEKEEPER [facility] 06-24-2016 influenza virus vacc ine, unspecified formulation LACI BREWER MANDATE RETAIL SERVICE MERCHANDISER-SENIOR HOUSEKEEPER [facility] 06-24-2016 tetanus toxoid, redu chivo diphtheria toxoid, and acellular pertussis vaccine, adsorbed LACI BREWER MANDATE RETAIL SERVICE [facility] 07-17-2015 pneumococcal conjuga te vaccine, 13 valent LACI BREWER MANDATE RETAIL SERVICE [facility] 06-19-2015 influenza virus vacc ine, unspecified formulation LACI BREWER MANDATE RETAIL SERVICE [facility] 09-06-2014 influenza virus vacc ine, unspecified formulation LACI BREWER MANDATE RETAIL SERVICE [facility] 06-08-2013 pneumococcal polysaccharide vaccine, 23 valent LACI BREWER MANDATE RETAIL SERVICE MERCHANDISER-[employer]ENIOR HOUSEKEEPER [facility] 09-01-2012 influenza virus vacc ine, unspecified formulation LACI BREWER MANDATE RETAIL SERVICE [facility] 05-28-2012 zoster vaccine, live LACI MONTEJO MANDATE RETAIL SERVICE MERCHANDISER-SENIOR HOUSEKEEPER [facility] Payers Date Payer Category Payer Medicaid [id number] 2024 Self-pay [id number] 2023 [facility] [employer] [employer] [id number] 2023-[facility] [phone] [address] [place] [address] Medicare HMO [id number] 2023 Medicare [id number] 2023 Unknown [id number] 1945 Unknown [id number] [id number] 1943 Unknown [id number] 2..840.1.687077.3.579.2.627 1945 Unknown [id number] 2..840.1.927984.3.579.2.627 Medicare [id number] Unknown [id number] 2.16.840.1.018348.3.579.2.462 Unknown [id number] 2.16.840.1.721496.3.579.2.462 Unknown [id number] 2.16.840.1.427931.3.579.2.462 Unknown [id number] 2.16.840.1.711279.3.579.2.462 Unknown [id number] 2.16.840.1.195437.3.579.2.462 Unknown [id number] 2.16.840.1.283870.3.579.2.462 Unknown [id number] 2.16.840.1.893772.3.579.2.462 Unknown [id number] 2.16.840.1.444872.3.579.2.462 Unknown [id number] 2.16.840.1.762854.3.579.2.462 Unknown [id number] 2.16.840.1.384256.3.579.2.462 Unknown [id number] 2.16.840.1.122566.3.579.2.462 Unknown [id number] 2.16.840.1.630291.3.579.2.462 Unknown [id number] 2.16.840.1.567304.3.579.2.462 Unknown [id number] 2.16.840.1.323497.3.579.2.462 Unknown [id number] 2.16.840.1.005366.3.579.2.462 Unknown [id number] 2.16.840.1.536320.3.579.2.462 Unknown [id number] 2.16.840.1.745682.3.579.2.462 Unknown [id number] 2.16.840.1.691460.3.579.2.462 Unknown [id number] 2.16.840.1.529871.3.579.2.462 Unknown [id number] 2.16.840.1.478812.3.579.2.462 Unknown [id number] 2.16.840.1.930206.3.579.2.462 Unknown [id number] 2.16.840.1.210597.3.579.2.462 Unknown [id number] 2.16.840.1.791783.3.579.2.462 Unknown [id number] 2.16.840.1.920826.3.579.2.462 Unknown [id number] 2.16.840.1.326141.3.579.2.462 Unknown [id number] 2.16.840.1.209021.3.579.2.462 Social History Date Type Detail Facility Start: 04-06-2019 End: 06-28-2025 Ex-smoker (finding) [facility] Comment on above: Quit in 2014, not ar ound cigarette smoke Start: 1945 Sex Assigned At Female A [facility] Start: 07-16-2023 End: 02-06-2024 Tobacco smoking status NMIS Tobacco smoking consumption unknown [facility] Start: 1945 Sex Assigned At Not on file [facility] Start: 10-14-2023 End: 12-09-2023 Gender identity Not on file [facility] Start: 10-14-2023 Tobacco smoking stat us NMIS Never smoked tobacco [facility] Start: 10-14-2023 Tobacco use and exposure Smokeless tobacco non-user [facility] Start: 10-14-2023 End: 12-09-2023 History of Social function [facility] Start: 01-04-2025 End: 01-24-2025 Sex Female (finding) [facility] Medical Equipment Procedure Code Equipment Code Equipment Origin al Text Equipment Identifier Dates Lithotripsy, [id number] ([id number]) Polymeric uret eral stent ([id number] FDA Start: 07-06-2025 BD UF SHORT PEN NEEDLE [id number] Start: 08-29-[address] Strips Start: 10-16-2020 Lancets Start: 04-23-2021 BD UF SHORT PEN NEEDLE [id number], 0 Refill(s), 141.8 Start: 08-29-2020 See Instructions , EA=BOX of 100 2x daily testing once touch untra blue dx: diabetes, # 6 EA, 3 Refill(s), Pharmacy: [facility] #[id number], Diabetes, 166.37, cm, 07/24/21 11:31:00 EDT, Height, 134.5, kg, 07/24/21 11:31:00 EDT, Dosing Weight Start: 07-24-2021 See Instructions , EA=BOX OF 100 ONETOUCH DELICA LANCETS FINE, 33 GA TO TEST BID Diabetes R11.9, # 6 EA, 3 Refill(s), Pharmacy: [facility] #[id number], Diabetes, 166.37, cm, 07/24/21 11:31:00 EDT, Height, 134.5, kg, 07/24/21 11:31:00 EDT, Dosing Weight Start: 07-24-2021 See Instructions , Using Twice Daily. ONE BOX OF 100. BD UF 8mm 31 G (short) qs 3 month supply Diabetes Mellitus E11.9, # 2 EA, 0 Refill(s), Pharmacy: [facility]/pharmacy #[id number], 167.6, cm, 11/05/21 9:58:00 EST, Height, 135.4, kg, 11/05/21 9:58:00 EST, Dosing... Start: 12-20-2021 See Instructions , EA=BOX of 100 2x daily testing once touch untra blue dx: diabetes, # 6 EA, 3 Refill(s), Pharmacy: [facility]/pharmacy #[id number], Diabetes, 167.6, cm, 05/20/22 12:08:00 EDT, Height, 134.9, kg, 05/20/22 11:59:00 EDT, Dosing Weight Start: 08-05-2022 See Instructions , EA=BOX OF 100 ONETOUCH HENRI SPRINGER FINE, 33 GA TO TEST BID Diabetes R11.9, # 6 EA, 3 Refill(s), Pharmacy: [facility]/pharmacy #[id number], Diabetes, 167.6, cm, 08/19/22 12:13:00 EST, Height, 135.4, kg, 08/19/22 12:13:00 EST, Dosing Weight Start: 09-10-2022 See Instructions , EA=ONE BOX OF 100, BID BD UF 8mm 31 G (short) qs 3 month supply Diabetes Mellitus E11.9, # 2 EA, 3 Refill(s), Pharmacy: [facility]/pharmacy #[id number], 167.6, cm, 11/20/22 11:29:00 EST, Height, 134, kg, 11/20/22 11:29:00 EST, Dosing Weight Start: 11-20-2022 See Instructions , EA=BOX of 100 2x daily testing once touch untra blue dx: diabetes, # 6 EA, 3 Refill(s), Pharmacy: [facility]/pharmacy #[id number], Diabetes, 167.6, cm, 05/20/22 12:08:00 EDT, Height, 134.9, kg, 05/20/22 11:59:00 EDT, Dosing Weight Start: 08-05-2022 See Instructions , EA=BOX OF 100 ONETOUCH DELLEIF LANCETS FINE, 33 GA TO TEST BID Diabetes R11.9, # 6 EA, 3 Refill(s), Pharmacy: [facility]/pharmacy #[id number], Diabetes, 167.6, cm, 08/19/22 12:13:00 EST, Height, 135.4, kg, 08/19/22 12:13:00 EST, Dosing Weight Start: 09-10-2022 See Instructions , EA=ONE BOX OF 100, BID BD UF 8mm 31 G (short) qs 3 month supply Diabetes Mellitus E11.9, # 2 EA, 3 Refill(s), Pharmacy: [facility]/pharmacy #[id number], 167.6, cm, 11/20/22 11:29:00 EST, Height, 134, kg, 11/20/22 11:29:00 EST, Dosing Weight Start: 11-20-2022 Goals Date Patient Goal Desired Activity /State Functional Status Date Assessment Result Facility 07-04-2023 Functional Status Room check performed [facility] 07-04-2023 Functional Status right knee high applied /on [facility] 07-04-2023 Functional Status [facility] 07-04-2023 Functional Status [facility] 07-04-2023 Functional Status Demonstrates C orrect Call Light Use Yes [facility] 07-04-2023 Functional Status Done [facility] 07-04-2023 Functional Status [facility] 07-03-2023 Functional Status Positioning Repositions self [facility] 07-03-2023 Functional Status [facility] 07-03-2023 Functional Status [facility] 07-03-2023 Functional Status [facility] 07-03-2023 Functional Status [facility] 07-03-2023 Functional Status [facility] 07-02-2023 Functional Status [facility] 07-02-2023 Functional Status Max A [facility] 07-01-2023 Functional Status [facility] 07-01-2023 Functional Status Single level home [facility] 07-01-2023 Functional Status [facility] 06-30-2023 Functional Status Sensory Deficits None A [facility] 06-30-2023 Functional Status Activity Rosa tance Independent [facility] Mental Status Date Assessment Result Facility 07-06-2025 Cognitive function Voice/Name [facility] Work Phone: 07-04-2023 Mental Status Orientation Orie nted x 4, Follows simple commands [facility] 07-03-2023 Mental Status [facility] 07-03-2023 [facility] 07-03-2023 Mental Status Orientation Asse ssment Oriented x 4 [facility] 07-02-2023 Mental Status [facility] 07-01-2023 Mental Status [facility] Clinical Notes 06-30-2023 to 07-06-2025 Note Date & Type Note Facility 07-06-2025 Consult note [facility] 07-06-2025 Consult note Note Date/Time July 06, 2025 12:50pm [facility] Medical Records Department [address] [place] [address] Pre-Anesthesia Evaluation 07/06/25 1243 MR#: [id number] Acct: [id number] Name: GUMARO HUFF Rep #:[id number] : 1945 80 From: Shailesh Russell MD PCP: Dr. Balwinder Alves MD Status:REG SDC Y Race: C Location: [place] [address] ASA Classification* ASA Classification ASA Classification: 3 [...] RIGHT STENT Anesthesia History Anesthesia History - certified credit counselor: Anesthesia History - certified credit counselor Hx Hospitalization No 06/28/25 08:30 Any Problems [...] sips of water?: Yes PONV PONV - certified credit counselor: PONV - certified credit counselor Female Yes 06/28/25 08:30 HX of Motion [...] 07/06/25 11:24 Respiratory Assessment Respiratory Assessment - certified credit counselor: Respiratory Tract Infection Hx - certified credit counselor Hx Respiratory Tract Infection No 06/28/25 08:30 STOP Sleep Apnea STOP Sleep Apnea - certified credit counselor: STOP Sleep Apnea - certified credit counselor Hx Hypertension Yes 06/28/25 08:30 Hx Sleep [...] Tobacco Use History Tobacco Use History - certified credit counselor: Tobacco Use History - certified credit counselor Tobacco Use Smoking Status Former smoker 06/28/25 08:30 Hx Tobacco Use No 06/28/25 08:30 Years Smoking Packs Smoked per Day Smoking Cessation Date was Yes - quit smoking within 15 06/28/25 08:30 within the last 15 years years Hx Smoking Cessation Date 10/05/13 06/28/25 08:30 Hx Smoking Cessation Counseling Hematologic Medial History Hematologic Hx - certified credit counselor: 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 coli infection Lives in skilled nursing Wears glasses Wears dentures Diabetes Uses wheelchair [...] MD Cosigner Signature: Date CC: ~ Signed [facility] Work Phone: 1(769) 596-126710-02-2025 Discharge summary Author Dorota James [facility] Note Date/Time July 06, 2025 12 :24pm [facility] Medical Records Department [address] [place] [address] Instructions for Home/Discharge Instructions 07/06/25 1217 MR#: [id number] Acct: [id number] Name: GUMARO HUFF Rep #:[id number] : 1945 80 From: Dorota Torres PCP: Dr. Baliwnder Alves MD Status:REG [facility] Discharge Instructions Diet Discharge Diet: No restrictions [...] Care Provider: Balwinder Alves Instructions Print Language: Jamaican Discharge Orders/Prescriptions Prescriptions: New phenazopyridine 200 mg [...] [facility] Work Phone: 1(919) 707-518110-02-2025 Consult note [facility] Medical Records Department [address] [place] [address] Anesthesia Postop Eval I 07/06/25 1419 MR#: [id number] Acct: [id number] Name: GUMARO HUFF Rep #:[id number] : 1945 80 From: Gerry Brown PCP: Dr. Balwinder Alves MD Status:REG SDC Y Race: C Location: [place] [address] Anesthesia: Postop Eval I Current Vital Signs [...] Gerry Lee Signature: Date CC: ~ Signed [facility]10-02-2025 History and physical note Author Dorota James [facility] Note Date/Time July 06, 2025 12 :17pm [facility] Medical Records Department [address] [place] [address] History & Physical Exam 07/06/25 1211 MR#: [id number] Acct: [id number] Name: GUMARO HUFF Rep #:[id number] : 1945 80 From: Dorota Torres PCP: Dr. Balwinder Alves MD Status:[facility] Location: [place] [address] History and Physical Date of Admission: 07/06/25 Date of Service: 06/30/25 MR#: [id number] Acct: [id number] Name: GUMARO HUFF Rep #: [id number] : 1945 Provider: Dr. Dorota James MD Age/Sex: 80/F Location: [facility] Status: Signed Intake Vital Signs 05/17/2510:04 06/30/2510:21 [...] No Nurse's Note: Patient doing well today. [facility] Medical History H/O echocardiogram History of ESBL E. coli infection Lives in skilled nursing Wears glasses Wears dentures Diabetes Uses wheelchair [...] healthy appearing, comfortable and no acute distress [facility] Head: normocephalic and atraumatic Ears: hearing grossly [...] Office Urine Color YELLOW Last Edit by Sienaastrid Lr on 06/30/25 10:36 Office Urine Clarity ? Last Edit by Sienaastrid Lr on 06/30/25 10:36 Office Urine Glucose Negative Last Edit by Siena Lr on 06/30/25 10:36 Office Urine Ketones Negative Last Edit by Siena Lr on 06/30/25 10:36 Office Urine Bilirubin Negative Last Edit by Siena Lr on 06/30/25 10:36 Office Urine Urobilinogen 0.2 mg/dL Last Edit by Siena Lr on 06/30/25 10:36 Off Ur Spec [place] 1.010 Last Edit by Siena Lr on 06/30/25 10:36 Office Urine pH 5.5 Last Edit by Sienaastrid Lr on 06/30/25 10:36 Office Urine Protein Positive Last Edit by Siena Lr on 06/30/25 10:36 Office Urine Blood Trace Last Edit by Siena Lr on 06/30/25 10:36 25 Siena Chuon 06/30/25 10:36 Office Urine Blood Hemolyzed ? Last Edit by Sienaastrid Lr on 06/30/25 10:36 Office Urine Nitrate Negative Last Edit by Siena Lr on 06/30/25 10:36 Off Ur Leukocytes Positive Last Edit by Siena Lr on 06/30/25 10:36 500 Sienaastrid Lr 06/30/25 10:36 Coding Level of Care [...] you fallen in the past year?: No 07/06/256 <Electronically signed by Dorota James MD> Date Dorota James MD 07/06/251216 <Electronically signed by Dorota James MD> Cosigner Signature (if applicable): CC: Dr. Dorota James MD; Dr. Balwinder Alves MD~ Signed ADDENDUM by Dr. Dorota James MD on 07/06/25 at 1217 Addendum I have examined the patient and the H&P has been reviewed. There are no clinicalchanges since date of exam. 07/06/251216<Electronically signed by Dorota James MD> Cosigner Signature (if applicable): cc: Dr. Dorota James MD; Dr. Balwinder Alves MD ~* Signed [facility] Work Phone: 1(763) 445-985910-02-2025 Procedure note [facility] Medical Records Department [address] [place] [address] Operative Report 07/06/25 1224 MR#: [id number] Acct: [id number] Name: GUMARO HUFF Rep #:[id number] : 1945 80 From: Dorota Torres PCP: Dr. Balwinder Alves MD Status:[facility] Location: [place] [address] Operative Report (Standard) Operative Information Date of Procedure: 07/06/25 Pre-Operative Diagnosis: Right renal calculus, urinary tract infection Post-Operative Diagnosis: Same Surgery/Procedure Performed: Cystoscopy with right ureteral stent insertion, right renal extracorporeal shockwave lithotripsy feather stitcher: No Type of Anesthesia: General RN Documented Start/Stop Times: Operation Date: 07/06/25 12:35 Case Time Into Pre-Op 07/06/25 10:52 Anesthesia Start 07/06/25 12:55 Into Room 07/06/25 12:55 Out of Pre-Op 07/06/25 12:57 Procedure Start 07/06/25 13:12 Procedure Start Time: 13:12 Procedure Stop Time: 13:58 Select all DRAINS/GRAFTS/IMPLANTS that apply: Drains Drain details: 6 Beninese by 28 cm JJ stent Estimated Blood [...] the level of the stone. A 6 Beninese 28 cm JJ stent was placed over [...] James MD; Dr. Balwinder Alves MD~ Signed [facility]10-02-2025 Consult note [facility] Medical Records Department [address] [place] [address] Pre-Anesthesia Evaluation 07/06/25 1243 MR#: [id number] Acct: [id number] Name: GUMARO HUFF Rep #:[id number] : 1945 80 From: Shailesh Russell MD PCP: Dr. Balwinder Alves MD Status:REG SDC Y Race: C Location: [place] [address] ASA Classification* ASA Classification ASA Classification: 3 [...] RIGHT STENT Anesthesia History Anesthesia History - certified credit counselor: Anesthesia History - certified credit counselor Hx Hospitalization No 06/28/25 08:30 Any Problems [...] sips of water?: Yes PONV PONV - certified credit counselor: PONV - certified credit counselor Female Yes 06/28/25 08:30 HX of Motion [...] 07/06/25 11:24 Respiratory Assessment Respiratory Assessment - certified credit counselor: Respiratory Tract Infection Hx - certified credit counselor Hx Respiratory Tract Infection No 06/28/25 08:30 STOP Sleep Apnea STOP Sleep Apnea - certified credit counselor: STOP Sleep Apnea - certified credit counselor Hx Hypertension Yes 06/28/25 08:30 Hx Sleep [...] Tobacco Use History Tobacco Use History - certified credit counselor: Tobacco Use History - certified credit counselor Tobacco Use Smoking Status Former smoker 06/28/25 08:30 Hx Tobacco Use No 06/28/25 08:30 Years Smoking Packs Smoked per Day Smoking Cessation Date was Yes - quit smoking within 15 06/28/25 08:30 within the last 15 years years Hx Smoking Cessation Date 10/05/13 06/28/25 08:30 Hx Smoking Cessation Counseling Hematologic Medial History Hematologic Hx - certified credit counselor: Hematologic 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 coli infection Lives in skilled nursing Wears glasses Wears dentures Diabetes Uses wheelchair [...] additional complaints, except as documented. 07/06/25 1250 la MD> Date _ Shailesh Russell MD Cosigner Signature: Date CC: ~ Signed [facility]10-02-2025 Discharge summary [facility] Medical Records Department [address] [place] [address] Instructions for Home/Discharge Instructions 07/06/25 1217 MR#: [id number] Acct: [id number] Name: GUMARO HUFF Rep #:[id number] : 1945 80 From: Dorota Torres PCP: Dr. Balwinder Alves MD Status:REG [facility] Discharge Instructions Diet Discharge Diet: No restrictions [...] Care Provider: Balwinder Alves Instructions Print Language: Jamaican Discharge Orders/Prescriptions Prescriptions: New phenazopyridine 200 mg [...] ~ Signed [facility]10-02-2025 History and physical note [facility] Medical Records Department [address] [place] [address] History & Physical Exam 07/06/25 1211 MR#: [id number] Acct: [id number] Name: GUMARO HUFF Rep #:[id number] : 1945 80 From: Dorota Torres PCP: Dr. Balwinder Alves MD Status:[facility] Location: [place] [address] History and Physical Date of Admission: 07/06/25 Date of Service: 06/30/25 MR#: [id number] Acct: [id number] Name: GUMARO HUFF Ewa Rep #: [id number] : 1945 Provider: Dr. Dorota James MD Age/Sex: 80/F Location: [facility] Status: Signed Intake Vital Signs 05/17/2510:04 06/30/2510:21 [...] No Nurse's Note: Patient doing well today. [facility] Medical History H/O echocardiogram History of ESBL E. coli infection Lives in skilled nursing Wears glasses Wears dentures Diabetes Uses wheelchair [...] Lr on 06/30/25 10:36 Off Ur Spec [place] 1.010 Last Edit by Siena Lr on 06/30/25 10:36 Office Urine pH 5.5 Last Edit by Siena Lr on 06/30/25 10:36 Office Urine Protein Positive Last Edit by Siena Lr on 06/30/25 10:36 Office Urine Blood Trace Last Edit by Siena Lr on 06/30/25 10:36 25 Siena Lr 06/30/25 10:36 Office Urine Blood Hemolyzed [...] you fallen in the past year?: No 07/06/256 Date Dorota James MD 07/06/257 Cosigner Signature (if applicable): CC: Dr. Dorota James MD; Dr. Balwinder Alves MD~ Signed ADDENDUM by Dr. Dorota James MD on 07/06/25 at 1217 Addendum I have examined the patient and the H&P has been reviewed. There are no clinicalchanges since date of exam. 07/06/257 Cosigner Signature (if applicable): cc: Dr. Dorota James MD; Dr. Balwinder Alves MD ~* Signed [facility]10-02-2025 [facility] Medical Records Department [address] [place] [address] History Physical Exam 07/06/25 1211 MR#: [id number] Acct: [id number] Name: GUMARO HUFF Rep #: [id number] : 1945 80 From: Dorota James MD PCP: Dr. Balwinder Alves MD Status:[facility] Location: [place] [address] History and Physical Date of Admission: 07/06/25 Date of Service: 06/30/25 MR#: [id number] Acct: [id number] Name: GUMARO HUFF Rep #: [id number] : 1945 Provider: Dr. Dorota James MD Age/Sex: 80/F Location: [facility] Status: Signed Intake Vital Signs 05/17/2510:04 06/30/2510:21 [...] No Nurse's Note: Patient doing well today. [facility] Medical History H/O echocardiogram History of ESBL E. coli infection Lives in skilled nursing Wears glasses Wears dentures Diabetes Uses wheelchair [...] renal extracorporal shockw (more content not included)... [facility]08-14-2025 Radiology Diagnostic study note [facility] Imaging Services [address] [place], [place] [id number] Abdomen Single View MR#: [id number] Acct: [id number] Name: GUMARO HUFF Rep #: [id number] : 1945 F 80 From: Gena Barth MD PCP: Dr. Balwinder Alves MD Status: REG CLI Study:Abdomen Single View Date of Exam: 05/17/25 Exam# [id number] Ordering Dr: Dorota James MD PROCEDURE: ABDOMEN [...] renal staghorn calculus is redemonstrated. Reading Location: [place] [address] CC: Dr. Dorota James MD; Dr. Balwinder Alves MD ~ Experimental Machinist: Signed [facility]08-13-2025 Evaluation note* Diagnosis Onset Date Resolution Status Admit Date Flank pain acute May 17, 025 9:40am Staghorn calculus acute May 17, 2025 9:40am Uncontrolled type 2 diabetes mellitus acute May 17 9:40am UTI (urinary tract infection) acute May 17, 2025 9:40am HTN (hypertension) chronic May 17, 2025 9:40am [facility] Work Phone: 1(228) 416-830508-13-2025 Evaluation note* Diagnosis Onset Date Resolution Status Admit Date Flank pain acute May 17, 025 9:40am Staghorn calculus acute May 17, 2025 9:40am Uncontrolled type 2 diabetes mellitus acute May 17 9:40am UTI (urinary tract infection) acute May 17, 2025 9:40am HTN (hypertension) chronic May 17, 2025 9:40am UTI (urinary tract infection) acute June 30, 2025 10:09am [facility] Work Phone: 1(789) 770-149108-13-2025 Evaluation note* Diagnosis Onset Date Resolution Status [...] 2025 10:09am HTN (hypertension) chronic 2024 10:09am [facility] Work Phone: 1(383) 489-208206-27-2025 Radiology Diagnostic study note [facility] Imaging Services [address] [place] [address] Abdomen/Pelvis without Cont MR#: [id number] Acct: [id number] Name: GUMARO HUFF Rep #: [id number] : 1945 F 80 From: Adalid Hanna MD PCP: Dr. Balwinder Alves MD Status: REG CLI Study:Abdomen/Pelvis without Cont Date of Exa m: 03/31/25 Exam# [id number] Ordering Dr: Dorota James MD PROCEDURE: ABDOMEN/PELVIS [...] Sigmoid diverticulosis. Status post cholecystectomy. Reading Location: [id number] CC: Dr. Dorota Jmaes MD; Dr. Balwinder Alves MD ~ Experimental Machinist: Signed [facility]05-04-2024 Discharge summary Author Omid Montiel [facility] February 06, 2024 6:02pm Note Date/Time February 06, 2024 4:09pm [facility] Medical Records Department [address] [place] [address] Emergency Department Summary 02/06/24 MR#: [id number] Acct: [id number] Name: GUMARO HUFF Rep #:[id number] : 1945 78 From: Omid Montiel MD PCP: Dr. Balwinder Alves MD Status:REG ER Location: ED HPI History of Present Illness Chief Complaint: Wound Check Narrative Narrative: 78-year-old female past medical history of diabetes presents from long term facility for right labia majora abscess. She [...] line because they want to start vancomycin. [facility] Medical History Brain bleed Cataract Closed fracture [...] on antibiotics orally. Disposition is discharged to [facility] in stable condition. History & [...] Care Provider] - 2 Days Laci Brewer TANK STORAGE SUPERVISOR, TANK STORAGE SUPERVISOR-C [Non-Staff] - Activity Restrictions/Additional Instructions: Remove packing/have packing removed in 48 hours. Do not leave in longer. Continue vancomycin through your peripheral IV. Disposition Disposition: Snf Facility Discharge Location: [facility] What to do if you have Problems For any increased pain, shortness of breath, bleeding, nausea or vomiting, chestpain, or any unexpected problems, contact your Primary Care Provider. Call [facility] ([phone]) or report to the closest Emergency Room. Call 911 if necessary. 02/06/24 180 <Electronically signed by Omid Montiel MD> Cosigner Signature (if applicable): CC: Dr. Balwinder Alves MD ~ Signed [facility] Work Phone: 1(461) 583-839403-06-2024 History of Present illness Narrative* LIA Champagne - 12/09/2023 10:30 AM EST Images from the original note were not included. [facility] [address] [place] [address] [place] [phone] Dept: [phone] Dept Gumaro Huff 1945 [id number] 12/09/2023 HISTORY OF PRESENT ILLNESS: Gumaro returns [...] to improve. Electronically signed by LIA Champagne [facility] Department of Orthopedic surgery 12/09/2023 3:43 PM Voice recognition was used for portions of this note and although it was reviewed prior to signing some incorrect words or phrases could be present. documented in this [facility]01-10-2024 History of Present illness Narrative* LIA Champagne - 10/14/2023 10:00 AM EST Images from the original note were not included. [facility] [address] [place] [address] [place] [phone] Dept: [phone] Dept Gumaro Daria 1945 [id number] 10/14/2023 HISTORY OF PRESENT ILLNESS: Gumaro returns [...] with Imaging. Electronically signed by LIA Champagne [facility] Department of Orthopedic surgery 10/14/2023 3:50 PM Voice recognition was used for portions of this note and although it was reviewed prior to signing some incorrect words or phrases could be present. documented in this [facility]SUpper [facility] [id number] Telephone encounter Note* Telephone Encounter - Kimberly Capellan MA - 09/03/2023 8:53 AM EST Left distal fibula fx doi 07/02/23 she is in a boot. Can only be seen in [place] or [place]. No wads [id number] Miscellaneous Notes* Telephone Encounter - Kimberly Capellan MA - 09/03/2023 8:53 AM EST Left distal fibula fx doi 07/02/23 she is in a boot. Can only be seen in [place] or [place]. No wads * Telephone Encounter - Sammie Lantigua - 09/02/2023 12:08 PM EST Gareth an RN at [facility] called [phone] ext 2008, he states that they just got Gumaro from [place] and they are looking for her to [...] Dr. Ureña on Thursday at 1pm in [facility] or 9am in [place] if not already double booked. documented in this [facility]11-29-2023 Telephone encounter Note* Telephone Encounter - Sammie Lantigua - 09/02/2023 12:08 PM EST Gareth an RN at [facility] called [phone] ext 2008, he states that they just got Gumaro from [place] and they are looking for her to [...] 2:30 today and then works again tomorrow. [id number] Miscellaneous Notes* Telephone Encounter - Sammie Lantigua - 09/02/2023 12:08 PM EST Gareth an RN at [facility] called [phone] ext 2008, he states that they just got Gumaro from [place] and they are looking for her to [...] Dr. Ureña on Thursday at 1pm in [facility] or 9am in [place] if not already double booked. documented in this encounterSUpper Valley Medical [id number] Telephone encounter Note* Telephone Encounter - Billy Araya MA - 07/17/2023 9:27 AM EDT LVM to schedule with Dr. Ureña on Thursday at 1pm in [facility] or 9am in [place] if not already double booked. [id number] Hospital Discharge instructions Patient Education 07/03/2023 14:56:59 Urinary Tract Infection, Adult, Nfnm-ro-Vtae Urinary Tract Infection, Adult A urinary tract [...] Follow these instructions at home: Medicines Take pfnc-ket-xvusdly and prescription medicines only as told by [...] 03/09/2009 Document Revised: 09/08/2019 Document Reviewed: 03/31/2019 [employer] Patient Education 2020 [employer]. Follow Up Care 06/30/2023 15:11:52 With:LACI BREWER Address: [address] [place] [phone]- [phone] When:3-5 days Comments:Please schedule a Follow up appt with your PCP after d/c. [facility] 09-29-2023 Note Discharge Instructions Thank you for allowing [facility] to assist you with your healthcare needs. The following is importantdischarge information regarding your hospital visit. Your Care Team Heather Hunt APRN Your Diagnosis Ankle pain-swelling Depression Fall Fibula fracture Hypertension Type 2 diabetes mellitus Urinary tract infection What to do next Scheduled Follow-Up Appointments Appointment Type When With Where [facility] 11:30 AM LACI GÓMEZ [address] [phone] Follow Up Appointments Follow Up with LACI BREWER When Within 3-5 days Why: Please schedule a Follow up appt with your PCP after d/c. Where: [address] [facility] [place] [address]- [phone] The Following Activity and Diet Have Been [...] When Why Instructions Last Dose New acetaminophen-hydrocodone ([place] 325- 5 mg oral tablet) 1 tab(s) [...] Follow these instructions at home: Medicines Take fdde-vnt-qevglbx and prescription medicines only as told by [...] Document Reviewed: 03/31/2019 Elsevier Patient Education 2020 [employer] Additional Information VACCINATE! IT SAVES LIVES! Members of the community who have not yet received the COVID-19 vaccine and would like to receive it can visit one of [facility] vaccine clinics. There are many vaccine clinic locations within the [facility]. For locations and available times, please visit [email or web address] It is important to note that some COVID mobile vaccine clinics are held outdoors and may be canceled in rainy or stormy conditions. To learn more about pediatric vaccinations (ages 5-11), we invite you to visit the [employer] webpage. [email or web address].[email or web address]/pages/[email or web address]-Rhhhd-Bicwlfvmwor-Ynqwmjinpu-Fotpl-Tzg stions.htmlTo learn more about the COVID-19 vaccine, we invite you to visit the CDC website for a list of frequently asked questions.https://www.cdc.gov/coronavirus/2019-ncov/vaccines/faq.html [facility] Patient Portal Access Instructions: Stay connected with your healthcare team and access your personal medical information anytime with the [facility] Patient Portal. Please follow the directions below to create your [facility] account: 1.Access the email account you provided upon registration to the hospital/physician office.2.Look for an invitation email from [facility].3.Open the email and access the invitation link: [facility]Invitation to [facility].4.Fill in the required correa to create your account. To access your account, visit [employer] SocialOneChart. Click the blue button labeled "Access Patient [...] who you will allowto register on the [facility] Patient Portal for access to your information. You can also access the [facility] Patient Portal on the [facility] calos. Simply click on "Patient Portal" and then log into your account. If you would like to receive a full copy of your medical records, please contact the [facility] Medical Records Department by calling [phone], Thursday through Thursday between 8 a.m. and [...] Call your local pharmacy or go to [email or web address]/1K1Rm2h to find one close to you.3.Make use of household items: Use cat litter or old coffee grounds to dispose medications if other options arenot available. Mix your drugs with these household products, seal them in an airtight container andthrow it into the garbage. Call [facility]: [phone] to be sure your drugs can be [...] Patient Education Materials Urinary Tract Infection, Adult, Nygs-gw-Nktu Medication Leaflets My discharge plan and instructions have been reviewed and explained to me and I,DARIA GUMARO Ewa understand my current condition and have read and understand these discharge instructions. I have received a written copy of the plan/instructions. If I have questions, I am aware that I should contact my doctor. Patient/Quality Control Tester Signature: Date/Time: Relationship to Patient: Witness Name/Signature: Date/Time: [facility]09-29-2023 Note Date of Service 07/03/2023 Chief Complaint Fibula fracture Subjective 78-year-old female with past medical history significant for HTN, HLD, type 2 diabetes mellitus, morbid obesity. Next Patient presented to [facility] emergency department on 06/30/2023 with left ankle [...] currently. Pain was not well controlled with [place] alone. Objective Vitals and Measurements T: 36.6 [...] Dr. Roberto, nonweightbearing status for 6 weeks. [place] for pain. Patient has a documented allergy [...] Time Spent 36 minutes was spent in [id number] time and coordination of care for this patient, including but not limited to personally gathering history, examining the patient, reviewing labs and images and records, counseling patient and/or family about diagnosis and potential workup if applicable, as detailed above as well as discussing the case with patient's interdisciplinary team where applicable. Digitally Signed by HEATHER HUNT on 07/03/2023 01:33 PM [facility]09-28-2023 Note Date of Service 07/02/2023 Chief Complaint Fall Subjective 78-year-old female with past medical history significant for HTN, HLD, type 2 diabetes mellitus, morbid obesity. Next Patient presented to [facility] emergency department on 06/30/2023 with left ankle [...] Dr. Roberto, nonweightbearing status for 6 weeks. [place] for pain. Patient has a documented allergy [...] by HEATHER HUNT on 07/02/2023 04:17 PM [facility]09-28-2023 Note. MICRO - Microbiology PROCEDURE: Urine [...] Locations *1: This test was performed at: [facility], [address] [place] [address], [id number]- , [facility] ([place])07-01-2023 Note Date of Service 07/01/2023 Chief [...] - holding off until seen by ortho. *mountain services manager consulted for discharge planning. *Continue [...] home medications, discussing plan of care with nursing,manager social responsibility, and therapy, examining patient, collaborating with physician, and documenting in chart. Digitally Signed by ROHAN MCDOWELL on 07/01/2023 04:17 PM [facility]09-26-2023 Note Date of Service 06/30/2023 Chief Complaint Patient fell at home and is complaining of left-sided ankle pain. History of Present Illness Patient is an 78-year-old female, who follows with Laci Brewer CNP with a past medical history significant for hypertension, hyperlipidemia, type 2 diabetes and morbid obesity, presented to [facility] emergency department with the chief complaint [...] to evaluate and treat. We will consult manager social responsibility for discharge planning. Check CBC and BMP [...] PT and OT to evaluate and treat. *mountain services manager consulted for discharge planning. *Continue [...] 04/06/2019 Use: Never., 04/06/2019 Home/Environment Self Primary Medical Laboratory Scientist:., 04/06/2019 Nutrition/Health Type of diet: Regular. Appetite Good. Eating Difficulties None. Caffeine intake amount: Occ Coke. Two protein drink daily, it has caffeine of one cup of coffee., 08/19/2022 Substance Abuse Use: Never., 04/06/2019 Tobacco Tobacco Use: Former smoker, quit more than 30 days ago., 04/06/2019 Family History Arthritis: Sister. Asbestosis: Father. Cancer: Mother. Diabetes: Sister. Guillain [place] syndrome: Sister. Heart disease: Sister. Malignant neoplasm [...] by ROHAN MCDOWELL on 06/30/2023 04:51 PM [facility]09-26-2023 Note ORIGINAL EXAMINATION: 3 x-ray views [...] Sign Date: 06/30/2023 4:00:26 PM Ordering Provider: [place] [id number] Note ORIGINAL EXAMINATION: TWO XRAY VIEWS OF [...] Sign Date: 06/30/2023 4:01:46 PM Ordering Provider: [facility]09-26-2023 Evaluation + Plan noteExtracted from: Title:History and Physical Author:ROHAN MCDOWELL APRN-SENIOR HOUSEKEEPER Date:06/30/23 1. Ankle pain-swelling Acute, s/p mechanical fall at home *X-ray of left ankle reveals fracture of distal fibula. *Consult Dr. Jose Roberto, orthopedics, for recommendation. *Patient is non weightbearing to left ankle. *Consult placed to PT and OT to evaluate and treat. *mountain services manager consulted for discharge planning. *Continue [...] Appointment Date:09/22/2023 11:30:00 AM Scheduled Provider:LACI BREWER APRN-SENIOR HOUSEKEEPER Location:[facility] Appointment Type:PC OV [facility] Consult note Author Gerry Brown [facility] Note Date/Time July 06, 2025 2: 20pm [facility] Medical Records Department [address] [place] [address] Anesthesia Postop Eval I 07/06/25 1419 MR#: [id number] Acct: [id number] Name: GUMARO HUFF Rep #:[id number] : 1945 80 From: Gerry Brown PCP: Dr. Balwinder Alves MD Status:REG SDC Y Race: C Location: [place] [address] Anesthesia: Postop Eval I Current Vital Signs [...] by Gerry Brown > Date _ Gerry Brown Cosigner Signature: Date CC: ~ Signed [facility] Work Phone: Consult note Author Arcenio Bronaugh [facility] Note Date/Time July 06, 2025 4: 16pm [facility] Medical Records Department [address] [place] [id number] Anesthesia Postop Eval II 07/06/25 1616 MR#: [id number] Acct: [id number] Name: GUMARO HUFF Rep #:[id number] : 1945 80 From: Arcenio MARCIAL PCP: Dr. Balwinder Alves MD Status:REG LATONYA Y Race: C Location: [place] [address] Anesthesia Postop Eval I Sum Postop Eval [...] CRNA Cosigner Signature: Date CC: ~ Signed [facility] Work Phone: Evaluation + Plan note Future Appointments Appointment Date:07/24/2021 11:30:00 AM Scheduled Provider:LACI BREWER Location:[facility] Appointment Type:PC OV Future Scheduled Tests Laboratory* Vitamin D Level 01/22/21 * Vitamin D Level 11/06/20 [facility] Evaluation + Plan note Future Appointments Appointment Date:02/04/2022 11:00:00 AM Scheduled Provider:LACI BREWER Location:[facility] Appointment Type:PC OV Follow Up [facility] Evaluation + Plan note Future Appointments Appointment Date:02/10/2023 11:30:00 AM Scheduled Provider:LACI BREWER Location:[facility] Appointment Type:PC OV [facility] Evaluation note* Diagnosis Onset Date Resolution Status Closed fracture of left distal fibula acute Left ankle pain acute [facility] Work Phone: Evaluation note* Diagnosis Closed fracture of left ankle, initial encounter- Primary documented in this encounter [facility]* Diagnosis Closed fracture of distal end of left fibula, unspecified fracture morphology, initial encounter Acute left ankle pain documented in this encounter [facility]* Diagnosis Closed fracture of distal end of left fibula, unspecified fracture morphology, initial encounter- Primary documented in this encounter [facility]* Diagnosis Closed fracture of distal end of left fibula, unspecified fracture morphology, initial encounter- Primary documented in this encounter [facility] noteNo assessment information availableWSt. [facility] Work Phone: Evaluation note* Diagnosis Onset Date Resolution Status Admit Date Kidney stones acute May 9:40am UTI (urinary tract infection) acute May 17, 2025 9:40am [facility] Work Phone: Hospital course Narrative No data available for this section [facility] Hospital Discharge instructions No data available for this section [facility] Discharge instructions Additional Instructions Remove packing/have packing removed in 48 hours. Do not leave in longer. Continue vancomycin through your peripheral IV.[facility] Work Phone: Progress note No data available for this section [facility] Reason for referral (narrative)No reason for referral information availableWSt. Vincent Hospital Work Phone: Summary Purpose Family History No Family History Records Found Advance Directives No Advanced Directives Records Found Advance Directive Response Recorded Date/ Time Name of Medical Power of Weigher And Grader casey laureano February 06, 2024 3:49pm Living Will Yes February 06, 2024 3: 49pm Power of Weigher And Grader Yes February 06, 2024 3:49pm Advance Directive Response Recorded Date/ Time Do you have a Healthcare Power of Weigher And Grader? No June 28, 2025 8:30am Chief Complaint and Reason for Visit Chief Complaint LEFT FIBULA Room 1 LABWORK Reason for Visit Closed fracture of l eft distal fibula Left ankle pain Chief Complaint LEFT FIBULA Room 1 LABWORK [facility] LAB WORK Reason for Visit Closed fracture of l eft distal fibula Left ankle pain Chief Complaint LABWORK [facility] LAB WORK [facility] Chief Complaint [facility] K wound Chief Complaint Admit Date [facility] September 14 5:00am [facility] October 10, 2024 7:30pm [facility] December 14, 2024 5 :00am LABWORK December 16, 2024 6:1 2am [facility] January 02, 2025 7 :30pm Chief Complaint Admit Date [facility] WORK September 14 5:00am [facility] October 10, 2024 7:30pm [facility] December 14, 2024 5 :00am LABWORK December 16, 2024 6:1 2am [facility] January 02, 2025 7 :30pm LABWORK January 09, 2025 12:4 0pm Chief Complaint Admit Date [facility] WORK September 14 5:00am [facility] October 10, 2024 7:30pm [facility] December 14, 2024 5 :00am LABWORK December 16, 2024 6:1 2am LABWORK December 26, 2024 7:0 8am [facility] WORK January 02, 2025 7 :30pm LABWORK January 09, 2025 12:4 0pm Chief Complaint Admit Date [facility] WORK October 10, 2024 7:30pm [facility] December 14, 2024 5 :00am LABWORK December 16, 2024 6:1 2am LABWORK December 26, 2024 7:0 8am [facility] WORK January 02, 2025 7 :30pm LABWORK January 09, 2025 12:4 0pm [facility] WORK January 23, 2025 1 1:30pm Chief Complaint Admit Date [facility] WORK December 14, 2024 5 :00am LABWORK December 16, 2024 6:1 2am LABWORK December 26, 2024 7:0 8am [facility] WORK January 02, 2025 7 :30pm LABWORK January 09, 2025 12:4 0pm [facility] WORK January 23, 2025 1 1:30pm [facility] February 07, 2025 3:30 am Chief Complaint Admit Date [facility] WORK December 14, 2024 5 :00am LABWORK December 16, 2024 6:1 2am LABWORK December 26, 2024 7:0 8am [facility] WORK January 02, 2025 7 :30pm LABWORK January 09, 2025 12:4 0pm [facility] WORK January 23, 2025 1 1:30pm [facility] February 07, 2025 3:30 am [facility] March 02, 2025 4:3 0am [facility] March 15, 2025 4: 00am KIDNEY STONES March 31, 2025 7:51 am Chief Complaint Admit Date [facility] January 23, 2025 1 1:30pm [facility] February 07, 2025 3:30 am [facility] March 02, 2025 4:3 0am [facility] March 15, 2025 4: 00am [facility] March 16, 2025 5: 00am KIDNEY STONES March 31, 2025 7:[address] follow up May 17, 2025 9: 40am Reason for Visit Admit Date Kidney stones May 17, 2025 9: 40am UTI (urinary tract infection) May 9:40am Chief Complaint Admit Date [facility] WORK January 23, 2025 1 1:30pm [facility] February 07, 2025 3:30 am [facility] March 02, 2025 4:3 0am [facility] March 15, 2025 4: 00am [facility] March 16, 2025 5: 00am [...] 2025 9: 40am Chief Complaint Admit Date [facility] March 15, 2025 4: 00am [facility] March 16, 2025 5: 00am KIDNEY STONES March 31, 2025 7:[address] follow up May 17, 2025 9: 40am kidney stone May 17, 2025 10 :31am [facility] June 01, 2025 5:00am [facility] June 15 5:00am [facility] June 26 4:00am Pre-op Urine C&S/sign consent June 30, 2025 10:09am Reason for Visit Admit Date Flank pain May 17, 2025 9: 40am Staghorn calculus May 17, 2025 9: 40am Uncontrolled type 2 diabetes mellitus [facility] 2024 9:40am UTI (urinary tract infection) May 9:40am HTN (hypertension) May 17, 2025 9: 40am UTI (urinary tract infection) June 30, 2025 10:09am Chief Complaint Admit Date [facility] March 15, 2025 4: 00am [facility] March 16, 2025 5: 00am KIDNEY STONES March 31, 2025 7:[address] follow up May 17, 2025 9: 40am kidney stone May 17, 2025 10 :31am [facility] June 01, 2025 5:00am [facility] June 15 5:00am [facility] June 26 4:00am Pre-op Urine C&S/sign consent June 30, 2025 10:09am Right ESWL- Cysto, Right stent insertion July 06, 2025 10:41am Right ESWL- Cysto, Right stent insertion July 06, 2025 12:11pm Reason for Visit Admit Date Flank pain May 17, 2025 9: 40am Staghorn calculus May 17, 2025 9: 40am Uncontrolled type 2 diabetes mellitus [facility] 2024 9:40am UTI (urinary tract infection) May 9:40am HTN (hypertension) May 17, 2025 9: 40am Flank pain June 30, 2025 10:09am Staghorn calculus June 30, 2025 10:09am Uncontrolled type 2 diabetes mellitus Se ptember 2024 10:09am UTI (urinary tract infection) June 30, 2025 10:09am HTN (hypertension) June 30, 2025 10:09am Chief Complaint Admit Date ct follow up May 17, 2025 9: 40am kidney stone May 17, 2025 10 :31am [facility] WORK June 01, 2025 5:00am [facility] June 15 5:00am [facility] June 26 4:00am Pre-op Urine C&S/sign consent June 30, 2025 10:09am [facility] July 03 5:00am Right ESWL- Cysto, Right stent insertion July 06, 2025 10:41am Right ESWL- Cysto, Right stent insertion July 06, 2025 12:11pm [facility] July 10, 2025 6:15am [facility] July 31, 2025 9 :48am Reason for Referral Specialty Diagnoses / Procedures Referred By Contac t Referred To Contact Physical Therapy Diagnoses Closed fracture of distal end of left fibula, unspecified fracture morphology, initial encounter Procedures CT OFFICE/OUTPATIENT [facility] 60 MINUTES Tete Trevino PA [address] [place] [id number] Referral ID Status Reason Start Date Expiration Date Visits Requested Visits Authorized [id number] Pending Review Eval and Treat 10/14/2023 04/11/2024 99 99 Additional Source Comments Care Team (unrecognized sect ion and content) Team Status: Active Member Role Status Dates Dr. Joaquin Thomas MD Family Provider Active Laci Brewer TANK STORAGE SUPERVISOR, TANK STORAGE SUPERVISOR-C Primary Care Provider Active Team Status: Inactive Member Role Status Dates Laci Brewer TANK STORAGE SUPERVISOR, TANK STORAGE SUPERVISOR-C Primary Care Provider, Referring Provider Active Prieto Meade MD Attending Provider Active Team Status: Inactive Member Role Status Dates Laci Brewer TANK STORAGE SUPERVISOR, TANK STORAGE SUPERVISOR-C Primary Care Provider Active Dr. 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 Balwidner Alves MD Primary care physician Active Start: [...] care physician Active Start: July 06, 2025 Team Status: Inactive Member Role/Relationship Status [...] care physician Active Start: June 01, 2025 End: June 01, 2025 Balwinder MARSHALL MD Attending physician Active Start: June 01, 2025 End: June 01, 2025 Team Status: Active Member [...] care physician Active Start: July 06, 2025 Team Status: Active Member Role/Relationship Status Dates Dr. Balwinder Alves MD Primary care physician Active Start: July 10, 2025 Balwinder MARSHALL MD Attending physician Active Start: July 10, 2025 Balwinder MARSHALL MD Referring Provider Active Start: July 10, 2025 Team Status: Active Member Role/Relationship Status Dates Dr. Balwinder Alves MD Primary care physician Active Start: July 24, 2025 Balwinder MARSHALL MD Attending physician Active Start: July 24, 2025 Team Status: Active Member Role/Relationship Status Dates Dr. Balwinder Alves MD Primary care physician Active Start: July 31, 2025 Dr. Dorota James MD Attending physician Active Start: July 31, 2025 Dr. Dorota James MD Referring Provider Active Start: July 31, 2025 INFORMATION SOURCE (unrecogn ized section and content) DATE CREATED AUTHOR 07/23/2023 [facility] DATE CREATED AUTHOR AUTHOR'S ORGANIZ ATION 12/10/2023 [facility] DATE CREATED AUTHOR AUTHOR'S ORGANIZ ATION 08/14/2025 [facility] Reason for Visit (unrecogniz ed [...] BE BASED ON THE PRIMARY CLINICAL RECORDS. [employer] provides no warranty or guarantee of the accuracy or completeness of information in this document.
[2025-08-22 08:38] LABS: Color, Urine Yellow (Yellow)
== END ==
LOC: OLS.WCC 03:45
PROVIDERS: PCP Family Medicine; Visit Provider Family Medicine
DX: N39.0 Urinary tract infection, site not specified (principal)
CPT/HCPCS: 81002; 87077; 87086; 87088; 87186

== ENCOUNTER → 2025-09-14 05:00 | Outpatient (REF) | payer SELFPAY ==
--- OUTSIDE RECORDS SUMMARY | 2025-09-14 03:12 | XMS RPT_ITS | CCD ---
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 Teacher Name Role Phone OSMAN PERDUE, LACI Primary Care Physician [phone] OSMAN PERDUE, LACI Primary Care Unavailabl e OSMAN PERDUE, LACI Attending Unavailabl e OSMAN AGENCY OPERATOR-FIELD KILN BURNER, LACI Primary Care Unavailabl e OSMAN AGENCY OPERATOR-FIELD KILN BURNER, LACI Attending Unavailabl e JULY PERDUE, ROHAN Romero Attending Unavaila ble OSMAN PERDUE, LACI Primary Care UnavailJOSE FRANCISCO Matos DO Referring Unavailable JOSE ROBERTO DO Consulting Unavailable JULY BENTON-RODRIGO, ROHAN Romero Admitting Unavaila ble Unavailable Primary Care Provider Unavailluisa Brewer SAUSAGE LINKER, SAUSAGE LINKER-C Laci Primary Care Provider [phone] Osman SAUSAGE LINKER, SAUSAGE LINKER-C Laci Referring Provider [id number] [phone] MD Prieto Meade Attending Provider [phone] Dr. Shlomo Umana Attending Provider [phone] Balwinder Alves MD Primary Care Provider [phone] ZANDER UREÑA Referring Unavailable TETE TREVINO Attending [...] / oxyCODONE; Translations: [acetaminophen-oxyco done] Drug Allergy [facility] (7 sources) Adhesive Tape Allergy to substance 07-05-20 REDNESS & BLISTERS [facility] (4 sources) Amoxicillin / Clavulanate; Translations: [amoxicillin-clavula kellie] Drug Allergy Rash [facility] (7 sources) Aspirin; Translations: [aspirin] Drug Allergy 06-28-20 25 Unknown, PT UNSURE OF REACTION [facility] (20 sources) Ciprofloxacin; Translations: [ciprofloxacin] Drug Allergy 07-05-20 Rash [facility] (4 sources) dapagliflozin; Translations: [dapagliflozin] Drug Allergy Rash [facility] (10 sources) Ibuprofen; Translations: [ibuprofen] Drug Allergy 07-05-20 23 PT UNSURE OF REACTION [facility] (20 sources) Latex; Translations: [latex] Drug allergy 07-05-20 23 BLISTERS & REDNESS, blisters, Other [facility] Comment on above: BLISTERS (20 sources) Sulfamethoxazole; Translations: [sulfamethoxazole] Drug Allergy 11-01-19 21 Hives, Shortness of breath [facility] (9 sources) Cephalexin; Translations: [cephalexin] Drug Allergy 07-05-20 23 Hives [facility] Comment on above: Immediate rash / hiv es; patient seen in ER after last administration of Keflex (18 sources) Adhesive Tape; Translations: [adhesive tape] Allergy to substance 07-16-20 23 blister [facility] (20 sources) Trimethoprim Drug Allergy 11-01-19 21 Shortness of breath [facility] (3 sources) augmenten Allergy to substance 07-16-20 23 [facility] (4 sources) Aluminum aspirin Drug Allergy 07-05-20 23 Unknown [facility] (4 sources) dapagliflozin Drug Allergy 07-05-20 23 Rash [facility] (4 sources) Amoxicillin-Pot Clavulanate Drug Allergy 07-05-20 23 Rash [facility] (4 sources) Diphenhydramine-Acet aminophen Drug Allergy 07-05-20 23 [facility] (3 sources) Acetaminophen / oxyCODONE Drug Allergy 10-14-19 24 [facility] (3 sources) Sulfamethoxazole Allergy to substance 11-01-19 21 [facility] (3 sources) Wound Dressing Adhesive Drug Allergy 07-16-20 [facility] (14 sources) Amoxicillin Drug Allergy 02-06-20 Rash [facility] (14 sources) Clavulanate Drug Allergy 02-06-20 Rash [facility] (14 sources) Vancomycin Drug Allergy 02-06-20 red man syndrome [facility] (1 source) Acetaminophen Drug Allergy 06-28-20 PT UNSURE OF REACTION [facility] (3 sources) dapagliflozin Drug Allergy 06-28-20 PT UNSURE OF REACTION [facility] (3 sources) diphenhydrAMINE Drug Allergy 06-28-20 PT UNSURE OF REACTION [facility] (3 sources) phenyltoloxamine Drug Allergy 06-28-20 PT UNSURE OF REACTION [facility] (1 source) Acetaminophen Drug Allergy 06-28-20 [facility] Repository (1 source) Amoxicillin Drug Allergy 08-11-20 [facility] Repository (1 source) Aspirin Drug Allergy 08-11-20 [facility] Rep[facility] (1 source) Cephalexin Drug Allergy 08-11-20 [facility] Rep[facility] (1 source) Ciprofloxacin Drug Allergy 08-11-20 [facility] Rep[facility] (1 source) Clavulanate Drug Allergy 08-11-20 [facility] Rep[facility] (1 source) dapagliflozin Drug Allergy 08-11-20 [facility] Rep[facility] (1 source) diphenhydrAMINE Drug Allergy 08-11-20 [facility] Rep[facility] (1 source) Ibuprofen Drug Allergy 08-11-20 [facility] Rep[facility] (1 source) phenyltoloxamine Drug Allergy 08-11-20 [facility] Rep[facility] (1 source) Sulfamethoxazole Drug Allergy 08-11-20 [facility] Rep[facility] (1 source) Trimethoprim Drug Allergy 08-11-20 [facility] Rep[facility] (1 source) Vancomycin Drug Allergy 07-06-20 [facility] Repository Medications Current Medications Medication Drug [...] arm, # 9 mL, 0 Refill(s), Pharmacy: [facility]/pharmacy #[id number], Type 2 diabetes mellitus, 168.91, cm, 02/18/23 [...] needed May 17, 2025 12:00am Start: 07-22-2023 [facility] Pain Relief Extra St 500 MG [...] Start: 05-17-2025 take 1 capsule by mo [facility] once daily Boric Acid (Azo Boric [...] qDay, # 180 tab(s), 3 Refill(s), Pharmacy: [facility]/pharmacy #[id number], 167.6, cm, 11/20/22 11:29:00 EST, Height, kg, 11/20/22 11:29:00 EST, Dosing Weight Start Date: 11/20/22 Status: Ordered Start: 11-13-2021 calcium (as ca rbonate) 600 mg oral tablet Dose : 1,200 mg = 2 tab(s), Oral, qDay, # 180 tab(s), 3 Refill(s), Pharmacy: [facility]/pharmacy #[id number], 167.6, cm, 11/05/21 9:58:00 EST, [...] TID, # 270 cap(s), 0 Refill(s), Pharmacy: [facility]/pharmacy #[id number], Diabetic neuropathy, 168.91, cm, 02/18/23 11:25:00 EDT, Height, 127.7, kg, 02/18/23 11:25:00 EDT, Dosing Weight Start Date: 06/10/23 Stop Date: 09/08/23 Status: Ordered Start: 11-20-2022 End: 02-18-2023 gabapentin 400 mg oral capsu le Dose : 400 mg = 1 cap(s), Oral, TID, # 270 cap(s), 0 Refill(s), Pharmacy: [facility]/pharmacy #[id number], Diabetic neuropathy, 167.6, cm, 11/20/22 11:29:00 EST, Height, 134, kg, 11/20/22 11:29:00 EST, Dosing Weight Start Date: 11/20/22 Stop Date: 02/18/23 Status: Ordered Start: 10-25-2021 End: 01-23-2022 gabapentin 400 mg oral capsu le Dose : 400 mg = 1 cap(s), Oral, TID, dose change, # 270 cap(s), 0 Refill(s), [id number], Diabetic neuropathy, 166.37, cm, 07/24/21 11:31:00 EDT, Height, 134.5, kg, 07/24/21 11:31:00 EDT, Dosing Weight Start Date: 10/25/21 Stop Date: 01/23/22 Status: Ordered Start: 04-23-2021 End: 07-22-2021 gabapentin 400 mg oral capsu le Dose : 400 mg = 1 cap(s), Oral, TID, dose change, # 270 cap(s), 0 Refill(s), [id number], Diabetic neuropathy, 167.6, cm, 04/23/21 [...] E11.9, # 4 EA, 3 Refill(s), Pharmacy: [facility]/pharmacy #[id number], Diabetes, 166.37, cm, 07/24/21 11:31:00 EDT, Height, kg, 07/24/21 11:31:00 EDT, Dosing Weight Start Date: 07/24/21 Stop Date: 07/19/22 Status: Ordered Start: 05-14-2021 inject 1 dose by sub cutaneous injection twice daily Lantus Solostar Pen 100 units/mL 3 mL Pen Dose : 30 unit(s) =, Subcutaneous, BID, EA=BOX OF 5 PENS diabetes E11.9, # 4 EA, 3 Refill(s), Pharmacy: [facility]/pharmacy #[id number], 167.6, cm, 04/23/21 11:30:00 EDT, [...] Daily, # 90 tab(s), 1 Refill(s), Pharmacy: [facility]/pharmacy #[id number], Hypertension, 168.91, cm, 02/18/23 11:25:00 EDT, Height, kg, 02/18/23 11:25:00 EDT, Dosing Weight Start Date: 02/18/23 Status: Ordered Start: 11-01-2020 losartan 100 m g oral tablet Dose : 100 mg = 1 tab(s), Oral, Daily, # 90 tab(s), 3 Refill(s), Pharmacy: [facility]/pharmacy #[id number], Hypertension, 167.6, cm, 02/04/22 11:02:00 [...] Refill(s), 07/14/23 1:08:00 PM EDT, [id number], 160, cm, 06/30/23 18:36:00 EDT, [...] E11.9, # 2 EA, 0 Refill(s), Pharmacy: [facility]/pharmacy #[id number], 167.6, cm, 04/23/21 11:30:00 EDT, [...] sites, # 9 mL, 0 Refill(s), Pharmacy: [facility]/pharmacy #4605, Diabetes Diabetes mellitus, 167.6, cm, [...] # 90 tab(s), 3 Refill(s), Pharmacy: [facility]/pharmacy #[id number], Type 2 diabetes mellitus, 167.6, cm, 08/19/22 12:13:00 EST, Height, kg, 08/19/22 12:13:00 EST, Dosing Weight Start Date: 08/20/22 Status: Ordered Start: 08-28-2021 simvastatin 5 mg oral tablet Dose : 5 mg = 1 tab(s), Oral, qHS, # 90 tab(s), 3 Refill(s), Pharmacy: [facility]/pharmacy #4605, Type 2 diabetes mellitus, 166.37, [...] # 90 tab(s), 3 Refill(s), [id number], Insomnia, 168.91, cm, 02/18/23 11:25:00 EDT, Height, kg, 02/18/23 11:25:00 EDT, Dosing Weight Start Date: 02/18/23 Status: Ordered Start: 05-01-2022 traZODone 100 mg oral tablet Dose : 100 mg = 1 tab(s), Oral, qHS, # 90 tab(s), 3 Refill(s), Pharmacy: [facility]/pharmacy #[id number], Insomnia, 167.6, cm, 02/04/22 11:02:00 EDT, Height, kg, 02/04/22 11:02:00 EDT, Dosing Weight Start Date: 05/01/22 Status: Ordered Start: 07-24-2021 traZODone 100 mg oral tablet Dose : 100 mg = 1 tab(s), Oral, qHS, # 90 tab(s), 1 Refill(s), Pharmacy: [facility]/pharmacy #[id number], Insomnia, 166.37, cm, 07/24/21 11:31:00 EDT, Height, kg, 07/24/21 11:31:00 EDT, Dosing Weight Start Date: 07/24/21 Status: Ordered Start: 04-23-2021 traZODone 100 mg oral tablet Dose : 100 mg = 1 tab(s), Oral, qHS, # 90 tab(s), 1 Refill(s), Pharmacy: [facility]/pharmacy #4605, Insomnia, 167.6, cm, 04/23/21 11:30:00 [...] Daily, # 90 cap(s), 3 Refill(s), [facility], 166.37, cm, 07/24/21 11:31:00 EDT, Height, kg, 07/24/21 11:31:00 EDT, Dosing Weight Start Date: 09/11/21 Status: Ordered Vitamin D3 400 intl units (1 0 mcg) oral tablet (1 source) Start: 04-23-2021 Vitamin D3 400 intl units (10 mcg) oral tablet Dose : 20 mcg = 2 tab(s), Oral, qDay, # 180 tab(s), 3 Refill(s), Pharmacy: [facility]/pharmacy #4605, Vitamin D deficiency, 167.6, cm, 04/23/21 11:30:00 EDT, Height, kg, 04/23/21 11:30:00 EDT, Dosing Weight Start Date: 04/23/21 Status: Ordered Vitamin D3 50 mcg (2000 intl units) oral tablet (2 sources) Start: 08-20-2022 Vitamin D3 50 mcg (2000 intl units) oral tablet Dose : 2,000 unit(s) = 1 tab(s), Oral, Daily, dose increase, # 90 tab(s), 3 Refill(s), [id number], Vitamin D deficiency, 167.6, cm, [...] 16, 2023 12:00am Start: 07-03-2023 End: 07-06-2023 [place] 325- 5 mg oral tablet Dose = [...] pain/diarrhea, # 120 packet(s), 0 Refill(s), Pharmacy: [facility]/pharmacy #4605, Diarrhea, 167.6, cm, 02/04/22 11:02:00 [...] pain/diarrhea, # 120 packet(s), 0 Refill(s), Pharmacy: [facility]/pharmacy #4605, Diarrhea, 167.6, cm, 02/04/22 11:02:00 [...] 11-15-2019 Chronic Other aftercare (2 sources) 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 Balwinder Alves MD Status: REG CLI Study: Abdomen/Pelvis without Cont Date of Exam: 07/06 04/28 Exam# [id number] Ordering Dr: Dorota James MD PROCEDURE: ABDOMEN/PELVIS [...] seen. No evidence of hydronephrosis. Reading Location: [id number] CC: Dr. Dorota James MD; Dr. Balwinder Alves MD Photo Lab Specialist: Signed Normal [facility] Anion gap in Serum or Plasma Ordered By: Balwinder Alves on 07-24-2025 Anion gap [Moles/Vol] 8 mmol/L - [facility] BUN/creatinine ratioOrdered By: Balwinder Alves on 07-24-2025 Urea nitrogen/Creatinine [Mass ratio] 9.0 mg/mg Low 07-24 [facility] Basic Metabolic Profile (BMP )on 07-24-2025 BUN/CRE 9.0 RATIO Low 07-24 [facility] Comment on above: Order Comment: 102.2 Performed By: #### M , #### [facility] [address] [place], [address] Calcium [Mass/Vol] 9.1 mg/dL Normal 7.6-11.0 [facility] Comment on above: Order Comment: 102.2 Performed By: #### M , #### [facility] [address] [place], [address] Chloride [Moles/Vol] 101 mmol/L Normal 98-108 [facility] Comment on above: Order Comment: 102.2 Performed By: #### M 100, #### [facility] [address] [place], [address] CO2 [Moles/Vol] 29.9 mmol/L Normal 21.0-32.0 [facility] Comment on above: Order Comment: 102.2 Performed By: #### M 100, #### [facility] [address] [place], [address] Creatinine [Mass/Vol] 0.68 mg/dL Low 0.70-1.20 [facility] Comment on above: Order Comment: 102.2 Performed By: #### M , #### [facility] [address] [place], [address] GAP 8 Normal 5-15 [facility] Comment on above: Order Comment: 102.2 Performed By: #### M , #### [facility] [address] [place], [address] GFR/1.73 sq M.predicted among non-blacks MDRD (S/P/Bld) [Vol rate/Area] 87 mL/min/{1.73_m2} Normal >60 [facility] Comment on above: Order Comment: 102.2 Result Comment: mL/m in/1.73m2 CKD-EPI Creatinine Equation (2020) Performed By: #### M , #### [facility] [address] [place], [address] Glucose [Mass/Vol] 176 mg/dL High 70-99 [facility] Comment on above: Order Comment: 102.2 Performed By: #### M , #### [facility] [address] [place], [address] Potassium [Moles/Vol] 4.4 mmol/L Normal 3.3-5.1 [facility] Comment on above: Order Comment: 102.2 Performed By: #### M , L4 #### [facility] [address] [place], [address] Sodium [Moles/Vol] 139 mmol/L Normal 133-145 [facility] Comment on above: Order Comment: 102.2 Performed By: #### M 0, #### [facility] [address] [place], [address] Urea nitrogen [Mass/Vol] 6 mg/dL Normal 4-19 [facility] Comment on above: Order Comment: 102.2 Performed By: #### M 100.2199, #### [facility] [address] [place], [address] Bilirubin directOrdered By: Balwinder Alves on 07-24-2025 Bilirubin.direct [Mass/Vol] 0.13 mg/dL 0.00-0.30 [facility] Bilirubin, totalOrdered By: Balwinder Alvse on 07-24-2025 Bilirubin [Mass/Vol] 0.28 mg/dL 0.00-1.30 [facility] CBC-Complete Blood Cnt No Di ffon 07-24-2025 Erythrocyte distribution width (RBC) [Ratio] 14.6 % Normal 11.6-14.6 [facility] Comment on above: Order Comment: 102.2 Performed By: #### M , L4 #### [facility] [address] [place], [address] Hematocrit (Bld) [Volume fraction] 34.0 % Low 37-47 [facility] Comment on above: Order Comment: 102.2 Performed By: #### M 100.2199, L4 #### [facility] [address] [place], [address] Hemoglobin (Bld) [Mass/Vol] 10.5 g/dL Low 12.0-15.0 [facility] Comment on above: Order Comment: 102.2 Performed By: #### M 100.2199, L4 #### [facility] [address] [place], [address] MCH (RBC) [Entitic mass] 29.2 pg Normal 27.0-32.0 [facility] Comment on above: Order Comment: 102.2 Performed By: #### M , .2010 #### [facility] [address] [place], [address] MCHC (RBC) [Mass/Vol] 30.9 g/dL Low 32-36 [facility] Comment on above: Order Comment: 102.2 Performed By: #### M , .2010 #### [facility] [address] [place], [address] MCV (RBC) [Entitic vol] 94.7 fL Normal 81-99 [facility] Comment on above: Order Comment: 102.2 Performed By: #### M , .2010 #### [facility] [address] [place], [address] Platelet mean volume (Bld) [Entitic vol] 8.5 fL Normal 6.2-12.0 [facility] Comment on above: Order Comment: 102.2 Performed By: #### M , L4.2010 #### [facility] [address] [place], [address] Platelets (Bld) [#/Vol] 231 10*3/uL Normal 150-450 [facility] Comment on above: Order Comment: 102.2 Performed By: #### M , L4 #### [facility] [address] [place], [address] RBC (Bld) [#/Vol] 3.59 10*6/uL Low 4.2-5.4 [facility] Comment on above: Order Comment: 102.2 Performed By: #### M , L4.2010 #### [facility] [address] [place], [address] RDW SD 50.7 fl High 35.1-43.9 [facility] Comment on above: Order Comment: 102.2 Performed By: #### M 0, L4.2010 #### [facility] [address] [place], [place], [address] WBC (Bld) [#/Vol] 6.8 10*3/uL Normal 4.4-11.0 [facility] Comment on above: Order Comment: 102.2 Performed By: #### M 100.2200, L4.2010 #### [facility] [address] [place], [address] Carbon dioxide, total [Moles /volume] in Central venous bloodOrdered By: Balwinder Alves on 07-24-2025 CO2 [Moles/Vol] 29.9 mmol/L 21.0-32.0 [facility] Chloride assayOrdered By: Jen Alves on 07-24-2025 Chloride [Moles/Vol] 101 mmol/L 98-108 [facility] Erythrocyte distribution wid th ratioOrdered By: Balwinder Alves on 07-24-2025 Erythrocyte distribution width (RBC) [Ratio] 14.6 % 11.6-14.6 [facility] Erythrocyte distribution wid th standard deviationOrdered By: Balwinder Alves on 07-24-2025 Erythrocyte distribution width (RBC) [Ratio] 50.7 fl High 35.1-43.9 [facility] Glomerular filtration rate ( GFR) estimation/1.73 sq m using serum, plasma, or whole bOrdered By: Balwinder Alves on 07-24-2025 GFR/1.73 sq M.predicted among non-blacks MDRD (S/P/Bld) [Vol rate/Area] 87 mL/min/{1.73_m2} >60 [facility] Comment on above: mL/min/1.73m2 CKD-EP I Creatinine Equation (2020) Hematocrit Auto (Bld) [Volum e fraction]Ordered By: Balwinder Alves on 07-24-2025 Hematocrit (Bld) [Volume fraction] 34.0 % Low 37-47 [facility] Hemoglobin measurementOrdere d By: Balwinder Alves on 07-24-2025 Hemoglobin (Bld) [Mass/Vol] 10.5 g/dL Low 12.0-15.0 [facility] Laboratory - Chemistry and C hemistry - challengeOrdered By: Balwinder Alves on 07-24-2025 AST [Catalytic activity/Vol] 9 U/L <32 [facility] Liver Profileon 07-24-2025 Albumin [Mass/Vol] 3.3 g/dL Low 3.4-4.8 [facility] Comment on above: Order Comment: 102.2 Performed By: #### M 100.2199, .2010 #### [facility] [address] [place], [address] ALK PHOS 68 U/L Normal 35-104 [facility] Comment on above: Order Comment: 102.2 Performed By: #### M , #### [facility] [address] [place], [address] ALT [Catalytic activity/Vol] U/L Normal <=34 [facility] Comment on above: Order Comment: 102.2 Performed By: #### M , #### [facility] [address] [place], [address] AST [Catalytic activity/Vol] 9 U/L Normal <=31 [facility] Comment on above: Order Comment: 102.2 Performed By: #### M , #### [facility] [address] [place], [address] Bilirubin [Mass/Vol] 0.28 mg/dL Normal 0.00-1.30 [facility] Comment on above: Order Comment: 102.2 Performed By: #### M , L4 #### [facility] [address] [place], [address] Bilirubin.direct [Mass/Vol] 0.13 mg/dL Normal 0.00-0.30 [facility] Comment on above: Order Comment: 102.2 Performed By: #### M , L4 #### [facility] [address] [place], [address] Globulin (S) [Mass/Vol] 2.8 g/dL Normal 2.2-4.2 [facility] Comment on above: Order Comment: 102.2 Performed By: #### M 100.2200, L400.2010 #### [facility] [address] [place], [address] T PROT 6.1 g/dL Normal 5.9-8.4 [facility] Comment on above: Order Comment: 102.2 Performed By: #### M 100.2200, L400.2010 #### [facility] [address] [place], [address] MCV (mean corpuscular volume ) determinationOrdered By: Balwinder Alves on 07-24-2025 MCV (RBC) [Entitic vol] 94.7 fL 81-99 [facility] Mean corpuscular hemoglobin (MCH) determinationOrdered By: Balwinder Alves on 07-24-2025 MCH (RBC) [Entitic mass] 29.2 pg 27.0-32.0 [facility] Mean corpuscular hemoglobin concentration (MCHC) determinationOrdered By: Balwinder Alves on 07-24-2025 MCHC (RBC) [Mass/Vol] 30.9 g/dL Low 32-36 [facility] Mean platelet volume determi nationOrdered By: Balwinder Alves on 07-24-2025 Platelet mean volume (Bld) [Entitic vol] 8.5 fL 6.2-12.0 [facility] Platelet countOrdered By: Jen Alves on 07-24-2025 Platelets (Bld) [#/Vol] 231 10*3/uL 150-450 [facility] Potassium measurement (mass/ volume)Ordered By: Balwinder Alves on 07-24-2025 Potassium (Unsp spec) [Mass/Vol] 4.4 mmol/L 3.3-5.1 [facility] RBC Auto (Bld) [#/Vol]Ordere d By: Balwinder Alves on 07-24-2025 RBC (Bld) [#/Vol] 3.59 10*6/uL Low 4.2-5.4 [facility] Serum creatinine measurement (mass/volume)Ordered By: Balwinder Alves on 07-24-2025 Creatinine [Mass/Vol] 0.68 mg/dL Low 0.70-1.20 [facility] Serum globulin measurementOr dered By: Balwinder Alves on 07-24-2025 Globulin (S) [Mass/Vol] 2.8 g/dL 2.2-4.2 [facility] Serum glucose measurement (m ass/volume)Ordered By: Balwinder Alves on 07-24-2025 Glucose [Mass/Vol] 176 mg/dL High 70-99 [facility] Serum or plasma alanine galan otransferase (ALT) measurementOrdered By: Balwinder Alves on 07-24-2025 ALT [Catalytic activity/Vol] U/L <35 [facility] Serum or plasma albumin jacqueline urement (mass/volume)Ordered By: Balwinder Alves on 07-24-2025 Albumin [Mass/Vol] 3.3 g/dL Low 3.4-4.8 [facility] Serum or plasma alkaline marva sphatase measurementOrdered By: Balwinder Alves on 07-24-2025 ALP [Catalytic activity/Vol] 68 U/L 35-104 [facility] Serum or plasma calcium jacqueline urement (mass/volume)Ordered By: Balwinder Alves on 07-24-2025 Calcium [Mass/Vol] 9.1 mg/dL 7.6-11.0 [facility] Serum or plasma urea nitroge n measurement (mass/volume)Ordered By: Balwinder Alves on 07-24-2025 Urea nitrogen [Mass/Vol] 6 mg/dL 4-19 [facility] Sodium levelOrdered By: Balwinder Alves on 07-24-2025 Sodium [Moles/Vol] 139 mmol/L 133-145 [facility] Total proteinOrdered By: Javed Alves on 07-24-2025 Protein [Mass/Vol] 6.1 g/dL 5.9-8.4 [facility] White blood cell (WBC) count Ordered By: Balwinder Alves on 07-24-2025 WBC (Bld) [#/Vol] 6.8 10*3/uL 4.4-11.0 [facility] Anion gap in Serum or Plasma Ordered By: Balwinder Alves on 07-10-2025 Anion gap [Moles/Vol] 9 mmol/L - [facility] BUN/creatinine ratioOrdered By: Balwinder Alves on 07-10-2025 Urea nitrogen/Creatinine [Mass ratio] 15.3 mg/mg - [facility] Basic Metabolic Profile (BMP )on 07-10-2025 BUN/CRE 15.3 RATIO Normal 07-24 [facility] Comment on above: Performed By: #### L 500.2500, L100.0100 #### [facility] Laboratory [address] [place], [address] Calcium [Mass/Vol] 9.1 mg/dL Normal 7.6-11.0 [facility] Comment on above: Performed By: #### L 500.2500, L100.0100 #### [facility] [address] [place], [address] Chloride [Moles/Vol] 101 mmol/L Normal 98-108 [facility] Comment on above: Performed By: #### L 500.2500, L100.0100 #### [facility] [address] [place], [address] CO2 [Moles/Vol] 27.6 mmol/L Normal 21.0-32.0 [facility] Comment on above: Performed By: #### L 500.2500, L100.0100 #### [facility] [address] [place], [address] Creatinine [Mass/Vol] 0.72 mg/dL Normal 0.70-1.20 [facility] Comment on above: Performed By: #### L 500.2500, L100.0100 #### [facility] [address] [place], [address] GAP 9 Normal - [facility] Comment on above: Performed By: #### L 500.2500, L100.0100 #### [facility] [address] [place], [address] GFR/1.73 sq M.predicted among non-blacks MDRD (S/P/Bld) [Vol rate/Area] 84 mL/min/{1.73_m2} Normal >60 [facility] Comment on above: Result Comment: mL/m in/1.73m2 CKD-EPI Creatinine Equation (2020) Performed By: #### L 500.2500, L100.0100 #### [facility] [address] [place], [address] Glucose [Mass/Vol] 184 mg/dL High 70-99 [facility] Comment on above: Performed By: #### L 500.2500, L100.0100 #### [facility] [address] [place], [address] Potassium [Moles/Vol] 4.5 mmol/L Normal 3.3-5.1 [facility] Comment on above: Performed By: #### L 500.2500, L100.0100 #### [facility] [address] [place], [address] Sodium [Moles/Vol] 138 mmol/L Normal 133-145 [facility] Comment on above: Performed By: #### L 500.2500, L100.0100 #### [facility] [address] [place], [address] Urea nitrogen [Mass/Vol] 11 mg/dL Normal 4-19 [facility] Comment on above: Performed By: #### L 500.2500, L100.0100 #### [facility] [address] [place], [address] Bilirubin directOrdered By: Balwinder Alves on 07-10-2025 Bilirubin.direct [Mass/Vol] 0.14 mg/dL 0.00-0.30 [facility] Bilirubin, totalOrdered By: Balwinder Alves on 07-10-2025 Bilirubin [Mass/Vol] 0.30 mg/dL 0.00-1.30 [facility] CBC-Complete Blood Cnt No Di ffon 07-10-2025 Erythrocyte distribution width (RBC) [Ratio] 14.6 % Normal 11.6-14.6 [facility] Comment on above: Performed By: #### L 500.2500, L100.0100 #### [facility] [address] [place], [address] Hematocrit (Bld) [Volume fraction] 35.7 % Low 37-47 [facility] Comment on above: Performed By: #### L 500.2500, L100.0100 #### [facility] [address] [place], [address] Hemoglobin (Bld) [Mass/Vol] 11.1 g/dL Low 12.0-15.0 [facility] Comment on above: Performed By: #### L 500.2500, L100.0100 #### [facility] [address] [place], [address] MCH (RBC) [Entitic mass] 29.2 pg Normal 27.0-32.0 [facility] Comment on above: Performed By: #### L 500.2500, L100.0100 #### [facility] [address] [place], [address] MCHC (RBC) [Mass/Vol] 31.1 g/dL Low 32-36 [facility] Comment on above: Performed By: #### L 500.2500, L100.0100 #### [facility] [address] [place], [address] MCV (RBC) [Entitic vol] 93.9 fL Normal 81-99 [facility] Comment on above: Performed By: #### L 500.2500, L100.0100 #### [facility] [address] [place], [address] Platelet mean volume (Bld) [Entitic vol] 9.0 fL Normal 6.2-12.0 [facility] Comment on above: Performed By: #### L 500.2500, L100.0100 #### [facility] Laboratory [address] [place], [address] Platelets (Bld) [#/Vol] 164 10*3/uL Normal 150-450 [facility] Comment on above: Performed By: #### L 500.2500, L100.0100 #### [facility] [address] [place], [address] RBC (Bld) [#/Vol] 3.80 10*6/uL Low 4.2-5.4 [facility] Comment on above: Performed By: #### L 500.2500, L100.0100 #### [facility] Laboratory [address] [place], [address] RDW SD 49.8 fl High 35.1-43.9 [facility] Comment on above: Performed By: #### L 500.2500, L100.0100 #### [facility] [address] [place], [address] WBC (Bld) [#/Vol] 7.1 10*3/uL Normal 4.4-11.0 [facility] Comment on above: Performed By: #### L 500.2500, L100.0100 #### [facility] [address] [place], [address] Carbon dioxide, total [Moles /volume] in Central venous bloodOrdered By: Balwinder Alves on 07-10-2025 CO2 [Moles/Vol] 27.6 mmol/L 21.0-32.0 [facility] Chloride assayOrdered By: Jen Alves on 07-10-2025 Chloride [Moles/Vol] 101 mmol/L 98-108 [facility] Erythrocyte distribution wid th ratioOrdered By: Balwinder Alves on 07-10-2025 Erythrocyte distribution width (RBC) [Ratio] 14.6 % 11.6-14.6 [facility] Erythrocyte distribution wid th standard deviationOrdered By: Balwinder Alves on 07-10-2025 Erythrocyte distribution width (RBC) [Ratio] 49.8 fl High 35.1-43.9 [facility] Glomerular filtration rate ( GFR) estimation/1.73 sq m using serum, plasma, or whole bOrdered By: Balwinder Alves on 07-10-2025 GFR/1.73 sq M.predicted among non-blacks MDRD (S/P/Bld) [Vol rate/Area] 84 mL/min/{1.73_m2} >60 [facility] Comment on above: mL/min/1.73m2 CKD-EP I Creatinine Equation (2020) Hematocrit Auto (Bld) [Volum e fraction]Ordered By: Balwinder Alves on 07-10-2025 Hematocrit (Bld) [Volume fraction] 35.7 % Low 37-47 [facility] Hemoglobin measurementOrdere d By: Balwinder Alves on 07-10-2025 Hemoglobin (Bld) [Mass/Vol] 11.1 g/dL Low 12.0-15.0 [facility] Laboratory - Chemistry and C hemistry - challengeOrdered By: Balwinder Alves on 07-10-2025 AST [Catalytic activity/Vol] 9 U/L <32 [facility] Liver Profileon 07-10-2025 Albumin [Mass/Vol] 3.4 g/dL Normal 3.4-4.8 [facility] Comment on above: Performed By: #### L 500.2500, L100.0100 #### [facility] Laboratory [address] [place], [address] ALK PHOS 58 U/L Normal 35-104 [facility] Comment on above: Performed By: #### L 500.2500, L100.0100 #### [facility] [address] [place], [address] ALT [Catalytic activity/Vol] U/L Normal <=34 [facility] Comment on above: Performed By: #### L 500.2500, L100.0100 #### [facility] Laboratory [address] [place], [address] AST [Catalytic activity/Vol] 9 U/L Normal <=31 [facility] Comment on above: Performed By: #### L 500.2500, L100.0100 #### [facility] Laboratory [address] [place], [address] Bilirubin [Mass/Vol] 0.30 mg/dL Normal 0.00-1.30 [facility] Comment on above: Performed By: #### L 500.2500, L100.0100 #### [facility] Laboratory [address] [place], [address] Bilirubin.direct [Mass/Vol] 0.14 mg/dL Normal 0.00-0.30 [facility] Comment on above: Performed By: #### L 500.2500, L100.0100 #### [facility] Laboratory [address] [place], [address] Globulin (S) [Mass/Vol] 2.5 g/dL Normal 2.2-4.2 [facility] Comment on above: Performed By: #### L 500.2500, L100.0100 #### [facility] [address] [place], [address] T PROT 5.9 g/dL Normal 5.9-8.4 [facility] Comment on above: Performed By: #### L 500.2500, L100.0100 #### [facility] [address] [place], [address] MCV (mean corpuscular volume ) determinationOrdered By: Balwinder Alves on 07-10-2025 MCV (RBC) [Entitic vol] 93.9 fL 81-99 [facility] Mean corpuscular hemoglobin (MCH) determinationOrdered By: Balwinder Alves on 07-10-2025 MCH (RBC) [Entitic mass] 29.2 pg 27.0-32.0 [facility] Mean corpuscular hemoglobin concentration (MCHC) determinationOrdered By: Balwinder Alves on 07-10-2025 MCHC (RBC) [Mass/Vol] 31.1 g/dL Low 32-36 [facility] Mean platelet volume determi nationOrdered By: Balwinder Alves on 07-10-2025 Platelet mean volume (Bld) [Entitic vol] 9.0 fL 6.2-12.0 [facility] Platelet countOrdered By: Jen Alves on 07-10-2025 Platelets (Bld) [#/Vol] 164 10*3/uL 150-450 [facility] Potassium measurement (mass/ volume)Ordered By: Balwinder Alves on 07-10-2025 Potassium (Unsp spec) [Mass/Vol] 4.5 mmol/L 3.3-5.1 [facility] RBC Auto (Bld) [#/Vol]Ordere d By: Balwinder Alves on 07-10-2025 RBC (Bld) [#/Vol] 3.80 10*6/uL Low 4.2-5.4 [facility] Serum creatinine measurement (mass/volume)Ordered By: Balwinder Alves on 07-10-2025 Creatinine [Mass/Vol] 0.72 mg/dL 0.70-1.20 [facility] Serum globulin measurementOr dered By: Balwinder Alves on 07-10-2025 Globulin (S) [Mass/Vol] 2.5 g/dL 2.2-4.2 [facility] Serum glucose measurement (m ass/volume)Ordered By: Balwinder Alves on 07-10-2025 Glucose [Mass/Vol] 184 mg/dL High 70-99 [facility] Serum or plasma alanine galan otransferase (ALT) measurementOrdered By: Balwinder Alves on 07-10-2025 ALT [Catalytic activity/Vol] U/L <35 [facility] Serum or plasma albumin jacqueline urement (mass/volume)Ordered By: Balwinder Alves on 07-10-2025 Albumin [Mass/Vol] 3.4 g/dL 3.4-4.8 [facility] Serum or plasma alkaline marva sphatase measurementOrdered By: Balwinder Alves on 07-10-2025 ALP [Catalytic activity/Vol] 58 U/L 35-104 [facility] Serum or plasma calcium jacqueline urement (mass/volume)Ordered By: Balwinder Alves on 07-10-2025 Calcium [Mass/Vol] 9.1 mg/dL 7.6-11.0 [facility] Serum or plasma urea nitroge n measurement (mass/volume)Ordered By: Balwinder Alves on 07-10-2025 Urea nitrogen [Mass/Vol] 11 mg/dL 4-19 [facility] Sodium levelOrdered By: Balwinder Alves on 07-10-2025 Sodium [Moles/Vol] 138 mmol/L 133-145 [facility] Total proteinOrdered By: Javed Alves on 07-10-2025 Protein [Mass/Vol] 5.9 g/dL 5.9-8.4 [facility] White blood cell (WBC) count Ordered By: Balwinder Alves on 07-10-2025 WBC (Bld) [#/Vol] 7.1 10*3/uL 4.4-11.0 [facility] Bedside Glucoseon 07-06-2025 FINGERSTICK GLU 133 mg/dL High 74-106 [facility] Comment on above: Result Comment: ALEX GEMENT OF PATIENT CARE PER NURSING PROTOCOL Performed By: #### L 500.2500, L100.0100 #### [facility] Laboratory [address] [place], [address] Discharge Instructionon Discharge Instruction [facility] Medical Records Department [address] [place] [address] Instructions for Home/Discharge Instructions 07/06/25 1217 MR#: [id number] Acct: [id number] Name: GUMARO HUFF Rep #: [id number] : 1945 80 From: Dorota James MD PCP: Dr. Balwinder Alves MD [place] [place] Instructions Diet Discharge Diet: No restrictions [...] Care Provider: Balwinder Alves Instructions Print Language: Belarusian Discharge Orders/Prescriptions Prescriptions: New phenazopyridine 200 mg [...] CC: Dr. Balwinder Alves MD Signed Normal [facility] Glucose [facility] deOrdered By: Dorota James on 07-06-2025 Glucose [Mass/Vol] 133 mg/dL High 74-106 [facility] Comment on above: MANAGEMENT OF PATIEN T CARE PER NURSING PROTOCOL MR/POSTOP.Srinivasa 07-06-2025 MR/POSTOP.[facility] Medical Records Department [address] [place] [address] Anesthesia Postop Eval I 07/06/25 1419 MR#: [id number] Acct: [id number] Name: GUMARO HUFF Rep #: [id number] : 1945 80 From: Gerry Brown PCP: Dr. Balwinder Alves MD Status:[facility] [place] Y Race: C Location: [place] [address] Anesthesia: Postop Eval I Current Vital Signs [...] Gerry Yousifignhussein Signature: Date CC: Signed Normal [facility] MR/TKNTZHDD4th 07-06-2025 [facility] Medical Records Department [address] [place] [address] Anesthesia Postop Eval II 07/06/25 1616 MR#: [id number] Acct: [id number] Name: GUMARO HUFF Rep #: [id number] : 1945 80 From: Arcenio King CRNA PCP: Dr. Balwinder Alves MD Status:[facility] [place] Y Race: C Location: [place] [address] Anesthesia Postop Eval I Sum Postop Eval [...] Vomiting: No 07/06/25 1616 Date Arcenio King OYSTERMAN Cosigner Signature: Date CC: Signed Normal [facility] Operative Reporton 5 Operative Report [facility] Medical Records Department [address] [place] [id number] Operative Report 07/06/25 1224 MR#: [id number] Acct: [id number] Name: GUMARO HUFF Rep #: [id number] : 1945 80 From: Dorota [place] MD PCP: Dr. Balwinder Alves MD Status:[facility] Location: [place] [address] Operative Report (Standard) Operative Information Date of Procedure: 07/06/25 Pre-Operative Diagnosis: Right renal calculus, urinary tract infection Post-Operative Diagnosis: Same Surgery/Procedure Performed: Cystoscopy with right ureteral stent insertion, right renal extracorporeal shockwave lithotripsy mobility manager: No Type of Anesthesia: General RN Documented Start/Stop Times: Operation Date: 07/06/25 12:35 Case Time Into Pre-Op 07/06/25 10:52 Anesthesia Start 07/06/25 12:55 Into Room 07/06/25 12:55 Out of Pre-Op 07/06/25 12:57 Procedure Start 10/02/25 13:12 Procedure Start Time: 13:12 Procedure Stop Time: 13:58 Select all DRAINS/GRAFTS/IMPLANTS that apply: Drains Drain details: 6 Gambian by 28 cm JJ stent Estimated Blood [...] the level of the stone. A 6 Gambian 28 cm JJ stent was placed over [...] MD; Dr. Balwinder Alves MD Signed Normal [facility] Anion gap in Serum or Plasma Ordered By: Balwinder Alves on 07-03-2025 Anion gap [Moles/Vol] 10 mmol/L 5-15 [facility] Automated blood erythrocyte countOrdered By: Balwinder Alves on 07-03-2025 RBC (Bld) [#/Vol] 3.80 10*6/uL Low 4.2-5.4 [facility] Comment on above: Order Comment: 102.2 Performed By: #### L 100.0500, L500.2500 #### [facility] Laboratory [address] [place], [address] Automated blood hematocrit ( percentage)Ordered By: Balwinder Alves on 07-03-2025 Hematocrit (Bld) [Volume fraction] 35.9 % Low 37-47 [facility] Comment on above: Order Comment: 102.2 Performed By: #### L 100.0500, L500.2500 #### [facility] Laboratory [address] [place], [address] BUN/creatinine ratioOrdered By: Balwinder Alves on 07-03-2025 Urea nitrogen/Creatinine [Mass ratio] 12.2 mg/mg 10-20 [facility] Basic Metabolic Profile (BMP )on 07-03-2025 BUN/CRE 12.2 RATIO Normal 10-20 [facility] Comment on above: Order Comment: 102.2 Performed By: #### L 100.0500, L500.2500 #### [facility] Laboratory [address] [place], [address] GAP 10 Normal 5-15 [facility] Comment on above: Order Comment: 102.2 Performed By: #### L 100.0500, L500.2500 #### [facility] Laboratory [address] [place], [address] Potassium [Moles/Vol] 4.6 mmol/L Normal 3.3-5.1 [facility] Comment on above: Order Comment: 102.2 Performed By: #### L 100.0500, L500.2500 #### [facility] Laboratory [address] [place], [address] Bilirubin directOrdered By: Balwinder Alves on 07-03-2025 Bilirubin.direct [Mass/Vol] 0.10 mg/dL Normal 0.00-0.30 [facility] Comment on above: Order Comment: 102.2 Performed By: #### L 100.0500, L500.2500 #### [facility] Laboratory [address] [place], [address] Bilirubin, totalOrdered By: Balwinder Alves on 07-03-2025 Bilirubin [Mass/Vol] 0.24 mg/dL Normal 0.00-1.30 [facility] Comment on above: Order Comment: 102.2 Performed By: #### L 100.0500, L500.2500 #### [facility] Laboratory [address] [place], [address] CBC-Complete Blood Cnt No Di ffon 07-03-2025 RDW SD 50.7 fl High 35.1-43.9 [facility] Comment on above: Order Comment: 102.2 Performed By: #### L 100.0500, L500.2500 #### [facility] Laboratory [address] [place], [address] Carbon dioxide, total [Moles /volume] in Central venous bloodOrdered By: Balwinder Alves on 07-03-2025 CO2 [Moles/Vol] 28.0 mmol/L Normal 21.0-32.0 [facility] Comment on above: Order Comment: 102.2 Performed By: #### L 100.0500, L500.2500 #### [facility] Laboratory [address] [place], [address] Chloride assayOrdered By: Jen Alves on 07-03-2025 Chloride [Moles/Vol] 101 mmol/L Normal 98-108 [facility] Comment on above: Order Comment: 102.2 Performed By: #### L 100.0500, L500.2500 #### [facility] Laboratory [address] [place], [address] Erythrocyte distribution wid th ratioOrdered By: Balwinder Alves on 07-03-2025 Erythrocyte distribution width (RBC) [Ratio] 14.7 % High 11.6-14.6 [facility] Comment on above: Order Comment: 102.2 Performed By: #### L 100.0500, L500.2500 #### [facility] Laboratory [address] [place], [address] Erythrocyte distribution wid th standard deviationOrdered By: Balwinder Alves on 07-03-2025 Erythrocyte distribution width (RBC) [Ratio] 50.7 fl High 35.1-43.9 [facility] Glomerular filtration rate ( GFR) estimation/1.73 sq m using serum, plasma, or whole bOrdered By: Balwinder Alves on 07-03-2025 GFR/1.73 sq M.predicted among non-blacks MDRD (S/P/Bld) [Vol rate/Area] 86 mL/min/{1.73_m2} Normal >60 [facility] Comment on above: mL/min/1.73m2 CKD-EP I Creatinine Equation (2020) Order Comment: 102.2 Result Comment: mL/m in/1.73m2 CKD-EPI Creatinine Equation (2020) Performed By: #### L 100.0500, L500.2500 #### [facility] Laboratory [address] [place], [address] Hemoglobin measurementOrdere d By: Balwinder Alves on 07-03-2025 Hemoglobin (Bld) [Mass/Vol] 11.2 g/dL Low 12.0-15.0 [facility] Comment on above: Order Comment: 102.2 Performed By: #### L 100.0500, L500.2500 #### [facility] Laboratory [address] [place], [address] Liver Profileon 07-03-2025 ALK PHOS 73 U/L Normal 35-104 [facility] Comment on above: Order Comment: 102.2 Performed By: #### L 100.0500, L500.2500 #### [facility] Laboratory [address] [place], [address] T PROT 5.9 g/dL Normal 5.9-8.4 [facility] Comment on above: Order Comment: 102.2 Performed By: #### L 100.0500, L500.2500 #### [facility] Laboratory [address] [place], [address] Liver ProfileOrdered By: Javed Alves on 07-03-2025 AST [Catalytic activity/Vol] 13 U/L Normal <=31 [facility] Comment on above: Order Comment: 102.2 Performed By: #### L 100.0500, L500.2500 #### [facility] Laboratory [address] [place], [address] MCV (mean corpuscular volume ) determinationOrdered By: Balwinder Alves on 07-03-2025 MCV (RBC) [Entitic vol] 94.5 fL Normal 81-99 [facility] Comment on above: Order Comment: 102.2 Performed By: #### L 100.0500, L500.2500 #### [facility] [address] [place], [address] Mean corpuscular hemoglobin (MCH) determinationOrdered By: Balwinder Alves on 07-03-2025 MCH (RBC) [Entitic mass] 29.5 pg Normal 27.0-32.0 [facility] Comment on above: Order Comment: 102.2 Performed By: #### L 100.0500, L500.2500 #### [facility] [address] [place], [address] Mean corpuscular hemoglobin concentration (MCHC) determinationOrdered By: Balwinder Alves on 07-03-2025 MCHC (RBC) [Mass/Vol] 31.2 g/dL Low 32-36 [facility] Comment on above: Order Comment: 102.2 Performed By: #### L 100.0500, L500.2500 #### [facility] [address] [place], [address] Mean platelet volume determi nationOrdered By: Balwinder Alves on 07-03-2025 Platelet mean volume (Bld) [Entitic vol] 8.9 fL Normal 6.2-12.0 [facility] Comment on above: Order Comment: 102.2 Performed By: #### L 100.0500, L500.2500 #### [facility] [address] [place], [address] Platelet countOrdered By: Jen Alves on 07-03-2025 Platelets (Bld) [#/Vol] 165 10*3/uL Normal 150-450 [facility] Comment on above: Order Comment: 102.2 Performed By: #### L 100.0500, L500.2500 #### [facility] [address] [place] [place], [address] Potassium measurement (mass/ volume)Ordered By: Balwinder Alves on 07-03-2025 Potassium (Unsp spec) [Mass/Vol] 4.6 mmol/L 3.3-5.1 [facility] Serum creatinine measurement (mass/volume)Ordered By: Balwinder Alves on 07-03-2025 Creatinine [Mass/Vol] 0.70 mg/dL Normal 0.70-1.20 [facility] Comment on above: Order Comment: 102.2 Performed By: #### L 100.0500, L500.2500 #### [facility] [address] [place], [address] Serum globulin measurementOr dered By: Balwinder Alves on 07-03-2025 Globulin (S) [Mass/Vol] 2.5 g/dL Normal 2.2-4.2 [facility] Comment on above: Order Comment: 102.2 Performed By: #### L 100.0500, L500.2500 #### [facility] [address] [place], [address] Serum glucose measurement (m ass/volume)Ordered By: Balwinder Alves on 07-03-2025 Glucose [Mass/Vol] 169 mg/dL High 70-99 [facility] Comment on above: Order Comment: 102.2 Performed By: #### L 100.0500, L500.2500 #### [facility] [address] [place], [address] Serum or plasma alanine galan otransferase (ALT) measurementOrdered By: Balwinder Alves on 07-03-2025 ALT [Catalytic activity/Vol] 12 U/L Normal <=34 [facility] Comment on above: Order Comment: 102.2 Performed By: #### L 100.0500, L500.2500 #### [facility] [address] [place], [address] Serum or plasma albumin jacqueline urement (mass/volume)Ordered By: Balwinder Alves on 07-03-2025 Albumin [Mass/Vol] 3.4 g/dL Normal 3.4-4.8 [facility] Comment on above: Order Comment: 102.2 Performed By: #### L 100.0500, L500.2500 #### [facility] [address] [place], [address] Serum or plasma alkaline marva sphatase measurementOrdered By: Balwinder Alves on 07-03-2025 ALP [Catalytic activity/Vol] 73 U/L 35-104 [facility] Serum or plasma calcium jacqueline urement (mass/volume)Ordered By: Balwinder Alves on 07-03-2025 Calcium [Mass/Vol] 9.2 mg/dL Normal 7.6-11.0 [facility] Comment on above: Order Comment: 102.2 Performed By: #### L 100.0500, L500.2500 #### [facility] [address] [place], [address] Serum or plasma urea nitroge n measurement (mass/volume)Ordered By: Balwinder Alves on 07-03-2025 Urea nitrogen [Mass/Vol] 9 mg/dL Normal 4-19 [facility] Comment on above: Order Comment: 102.2 Performed By: #### L 100.0500, L500.2500 #### [facility] [address] [place], [address] Sodium levelOrdered By: Balwinder Alves on 07-03-2025 Sodium [Moles/Vol] 139 mmol/L Normal 133-145 [facility] Comment on above: Order Comment: 102.2 Performed By: #### L 100.0500, L500.2500 #### [facility] [address] [place], [place], [address] Total proteinOrdered By: Javed Alves on 07-03-2025 Protein [Mass/Vol] 5.9 g/dL 5.9-8.4 [facility] White blood cell (WBC) count Ordered By: Balwinder Alves on 07-03-2025 WBC (Bld) [#/Vol] 7.2 10*3/uL Normal 4.4-11.0 [facility] Comment on above: Order Comment: 102.2 Performed By: #### L 100.0500, L500.2500 #### [facility] [address] [place], [place], [address] Laboratory - Chemistry and C hemistry - challengeOrdered By: Dorota James on 06-30-2025 Bilirubin Ql (U) Negative [facility] Glucose Ql (U) Negative [facility] Ketones Ql (U) Negative [facility] pH (U) 5.5 [pH] [facility] Specific gravity (U) [Rel density] 1.010 [facility] Urobilinogen (U) [Mass/Vol] 0.3270942 mg/dL [facility] Laboratory - Hematology and Cell countsOrdered By: Dorota James on 06-30-2025 Hemoglobin Ql (U) Trace [facility] Comment on above: 25 Laboratory - Specimen inform ationOrdered By: Dorota James on 06-30-2025 Color (U) YELLOW [facility] Laboratory - UrinalysisOrder ed By: Dorota James on 06-30-2025 Nitrite Ql (U) Negative [facility] Protein Ql (U) Positive [facility] MR/BMSBud 06-30-2025 [facility] [address] [facility], [address] [place] [address] OFFICE VISIT Date of Service: 06/30/25 MR#: [id number] Acct: [id number] Name: GUMARO HUFF Rep #: [id number] : 1945 Provider: Dr. Dorota Key i, [...] No Nurse's Note: Patient doing well today. [facility] Medical History H/O echocardiogram History of ESBL E. coli infection Lives in long term Wears glasses Wears dentures Diabetes Uses wheelchair [...] surgery/procedure a (more content not included)... Normal [facility] No Panel InformationOrdered By: Dorota James on 06-30-2025 Urine Leukocytes Positive [facility] Comment on above: 500 Anion gap in Serum or Plasma Ordered By: Balwinder Alves on 06-26-2025 Anion gap [Moles/Vol] 11 mmol/L 02-16 [facility] BUN/creatinine ratioOrdered By: Balwinder Alves on 06-26-2025 Urea nitrogen/Creatinine [Mass ratio] 13.0 mg/mg 07-24 [facility] Basic Metabolic Profile (BMP )on 06-26-2025 BUN/CRE 13.0 RATIO Normal 07-24 [facility] Comment on above: Order Comment: 102.2 Performed By: #### L 500.2500, L500.3400, L100.0500 #### [facility] [address] [place], [address] Calcium [Mass/Vol] 9.5 mg/dL Normal 7.6-11.0 [facility] Comment on above: Order Comment: 102.2 Performed By: #### L 500.2500, L500.3400, L100.0500 #### [facility] [address] [place], [address] Chloride [Moles/Vol] 96 mmol/L Low 98-108 [facility] Comment on above: Order Comment: 102.2 Performed By: #### L 500.2500, L500.3400, L100.0500 #### [facility] [address] [place], [address] CO2 [Moles/Vol] 29.0 mmol/L Normal 21.0-32.0 [facility] Comment on above: Order Comment: 102.2 Performed By: #### L 500.2500, L500.3400, L100.0500 #### [facility] [address] [place], [address] Creatinine [Mass/Vol] 0.69 mg/dL Low 0.70-1.20 [facility] Comment on above: Order Comment: 102.2 Performed By: #### L 500.2500, L500.3400, L100.0500 #### [facility] [address] [place], [address] GAP 11 Normal 5-15 [facility] Comment on above: Order Comment: 102.2 Performed By: #### L 500.2500, L500.3400, L100.0500 #### [facility] [address] [place], [address] GFR/1.73 sq M.predicted among non-blacks MDRD (S/P/Bld) [Vol rate/Area] 87 mL/min/{1.73_m2} Normal >60 [facility] Comment on above: Order Comment: 102.2 Result Comment: mL/m in/1.73m2 CKD-EPI Creatinine Equation (2020) Performed By: #### L 500.2500, L500.3400, L100.0500 #### [facility] [address] [place], [address] Glucose [Mass/Vol] 207 mg/dL High 70-99 [facility] Comment on above: Order Comment: 102.2 Performed By: #### L 500.2500, L500.3400, L100.0500 #### [facility] [address] [place], [address] Potassium [Moles/Vol] 4.7 mmol/L Normal 3.3-5.1 [facility] Comment on above: Order Comment: 102.2 Performed By: #### L 500.2500, L500.3400, L100.0500 #### [facility] [address] [place], [address] Sodium [Moles/Vol] 136 mmol/L Normal 133-145 [facility] Comment on above: Order Comment: 102.2 Performed By: #### L 500.2500, L500.3400, L100.0500 #### [facility] [address] [place], [address] Urea nitrogen [Mass/Vol] 9 mg/dL Normal 4-19 [facility] Comment on above: Order Comment: 102.2 Performed By: #### L 500.2500, L500.3400, L100.0500 #### [facility] [address] [place], [address] Bilirubin directOrdered By: Balwinder Alves on 06-26-2025 Bilirubin.direct [Mass/Vol] 0.12 mg/dL 0.00-0.30 [facility] Bilirubin, totalOrdered By: Balwinder Alves on 06-26-2025 Bilirubin [Mass/Vol] 0.26 mg/dL 0.00-1.30 [facility] CBC-Complete Blood Cnt No Di ffon 06-26-2025 Erythrocyte distribution width (RBC) [Ratio] 14.5 % Normal 11.6-14.6 [facility] Comment on above: Order Comment: 102.2 Performed By: #### L 500.2500, L500.3400, L100.0500 #### [facility] [address] [place], [address] Hematocrit (Bld) [Volume fraction] 37.3 % Normal 37-47 [facility] Comment on above: Order Comment: 102.2 Performed By: #### L 500.2500, L500.3400, L100.0500 #### [facility] [address] [place], [address] Hemoglobin (Bld) [Mass/Vol] 11.4 g/dL Low 12.0-15.0 [facility] Comment on above: Order Comment: 102.2 Performed By: #### L 500.2500, L500.3400, L100.0500 #### [facility] [address] [place], [address] MCH (RBC) [Entitic mass] 28.9 pg Normal 27.0-32.0 [facility] Comment on above: Order Comment: 102.2 Performed By: #### L 500.2500, L500.3400, L100.0500 #### [facility] [address] [place], [address] MCHC (RBC) [Mass/Vol] 30.6 g/dL Low 32-36 [facility] Comment on above: Order Comment: 102.2 Performed By: #### L 500.2500, L500.3400, L100.0500 #### [facility] [address] [place], [address] MCV (RBC) [Entitic vol] 94.7 fL Normal 81-99 [facility] Comment on above: Order Comment: 102.2 Performed By: #### L 500.2500, L500.3400, L100.0500 #### [facility] [address] [place], [address] Platelet mean volume (Bld) [Entitic vol] 9.0 fL Normal 6.2-12.0 [facility] Comment on above: Order Comment: 102.2 Performed By: #### L 500.2500, L500.3400, L100.0500 #### [facility] [address] [place], [address] Platelets (Bld) [#/Vol] 197 10*3/uL Normal 150-450 [facility] Comment on above: Order Comment: 102.2 Performed By: #### L 500.2500, L500.3400, L100.0500 #### [facility] [address] [place], [address] RBC (Bld) [#/Vol] 3.94 10*6/uL Low 4.2-5.4 [facility] Comment on above: Order Comment: 102.2 Performed By: #### L 500.2500, L500.3400, L100.0500 #### [facility] [address] [place], [address] RDW SD 50.1 fl High 35.1-43.9 [facility] Comment on above: Order Comment: 102.2 Performed By: #### L 500.2500, L500.3400, L100.0500 #### [facility] [address] [place], [address] WBC (Bld) [#/Vol] 7.7 10*3/uL Normal 4.4-11.0 [facility] Comment on above: Order Comment: 102.2 Performed By: #### L 500.2500, L500.3400, L100.0500 #### [facility] [address] [place], [address] Carbon dioxide, total [Moles /volume] in Central venous bloodOrdered By: Balwinder Alves on 06-26-2025 CO2 [Moles/Vol] 29.0 mmol/L 21.0-32.0 [facility] Chloride assayOrdered By: Jen Alves on 06-26-2025 Chloride [Moles/Vol] 96 mmol/L Low 98-108 [facility] Erythrocyte distribution wid th ratioOrdered By: Balwinder Alves on 06-26-2025 Erythrocyte distribution width (RBC) [Ratio] 14.5 % 11.6-14.6 [facility] Erythrocyte distribution wid th standard deviationOrdered By: Balwinder Alves on 06-26-2025 Erythrocyte distribution width (RBC) [Ratio] 50.1 fl High 35.1-43.9 [facility] Glomerular filtration rate ( GFR) estimation/1.73 sq m using serum, plasma, or whole bOrdered By: Balwinder Alves on 06-26-2025 GFR/1.73 sq M.predicted among non-blacks MDRD (S/P/Bld) [Vol rate/Area] 87 mL/min/{1.73_m2} >60 [facility] Comment on above: mL/min/1.73m2 CKD-EP I Creatinine Equation (2020) Hematocrit Auto (Bld) [Volum e fraction]Ordered By: Balwinder Alves on 06-26-2025 Hematocrit (Bld) [Volume fraction] 37.3 % 37-47 [facility] Hemoglobin measurementOrdere d By: Balwinder Alves on 06-26-2025 Hemoglobin (Bld) [Mass/Vol] 11.4 g/dL Low 12.0-15.0 [facility] Laboratory - Chemistry and C hemistry - challengeOrdered By: Balwinder Alves on 06-26-2025 AST [Catalytic activity/Vol] 12 U/L <32 [facility] Liver Profileon 06-26-2025 Albumin [Mass/Vol] 3.6 g/dL Normal 3.4-4.8 [facility] Comment on above: Order Comment: 102.2 Performed By: #### L 500.2500, L500.3400, L100.0500 #### [facility] [address] [place], [address] ALK PHOS 63 U/L Normal 35-104 [facility] Comment on above: Order Comment: 102.2 Performed By: #### L 500.2500, L500.3400, L100.0500 #### [facility] [address] [place], [address] ALT [Catalytic activity/Vol] 5 U/L Normal <=34 [facility] Comment on above: Order Comment: 102.2 Performed By: #### L 500.2500, L500.3400, L100.0500 #### [facility] [address] [place], [address] AST [Catalytic activity/Vol] 12 U/L Normal <=31 [facility] Comment on above: Order Comment: 102.2 Performed By: #### L 500.2500, L500.3400, L100.0500 #### [facility] [address] [place], [address] Bilirubin [Mass/Vol] 0.26 mg/dL Normal 0.00-1.30 [facility] Comment on above: Order Comment: 102.2 Performed By: #### L 500.2500, L500.3400, L100.0500 #### [facility] [address] [place], [address] Bilirubin.direct [Mass/Vol] 0.12 mg/dL Normal 0.00-0.30 [facility] Comment on above: Order Comment: 102.2 Performed By: #### L 500.2500, L500.3400, L100.0500 #### [facility] [address] [place], [address] Globulin (S) [Mass/Vol] 2.7 g/dL Normal 2.2-4.2 [facility] Comment on above: Order Comment: 102.2 Performed By: #### L 500.2500, L500.3400, L100.0500 #### [facility] [address] [place], [address] T PROT 6.3 g/dL Normal 5.9-8.4 [facility] Comment on above: Order Comment: 102.2 Performed By: #### L 500.2500, L500.3400, L100.0500 #### [facility] [address] [place], [address] MCV (mean corpuscular volume ) determinationOrdered By: Balwinder Alves on 06-26-2025 MCV (RBC) [Entitic vol] 94.7 fL 81-99 [facility] Mean corpuscular hemoglobin (MCH) determinationOrdered By: Balwinder Alves on 06-26-2025 MCH (RBC) [Entitic mass] 28.9 pg 27.0-32.0 [facility] Mean corpuscular hemoglobin concentration (MCHC) determinationOrdered By: Balwinder Alves on 06-26-2025 MCHC (RBC) [Mass/Vol] 30.6 g/dL Low 32-36 [facility] Mean platelet volume determi nationOrdered By: Balwinder Alves on 06-26-2025 Platelet mean volume (Bld) [Entitic vol] 9.0 fL 6.2-12.0 [facility] Platelet countOrdered By: Jen Alves on 06-26-2025 Platelets (Bld) [#/Vol] 197 10*3/uL 150-450 [facility] Potassium measurement (mass/ volume)Ordered By: Balwinder Alves on 06-26-2025 Potassium (Unsp spec) [Mass/Vol] 4.7 mmol/L 3.3-5.1 [facility] RBC Auto (Bld) [#/Vol]Ordere d By: Balwinder Alves on 06-26-2025 RBC (Bld) [#/Vol] 3.94 10*6/uL Low 4.2-5.4 [facility] Serum creatinine measurement (mass/volume)Ordered By: Balwinder Alves on 06-26-2025 Creatinine [Mass/Vol] 0.69 mg/dL Low 0.70-1.20 [facility] Serum globulin measurementOr dered By: Balwinder Alves on 06-26-2025 Globulin (S) [Mass/Vol] 2.7 g/dL 2.2-4.2 [facility] Serum glucose measurement (m ass/volume)Ordered By: Balwinder Alves on 06-26-2025 Glucose [Mass/Vol] 207 mg/dL High 70-99 [facility] Serum or plasma alanine galan otransferase (ALT) measurementOrdered By: Balwinder Alves on 06-26-2025 ALT [Catalytic activity/Vol] 5 U/L <35 [facility] Serum or plasma albumin jacqueline urement (mass/volume)Ordered By: Balwinder Alves on 06-26-2025 Albumin [Mass/Vol] 3.6 g/dL 3.4-4.8 [facility] Serum or plasma alkaline marva sphatase measurementOrdered By: Balwinder Alves on 06-26-2025 ALP [Catalytic activity/Vol] 63 U/L 35-104 [facility] Serum or plasma calcium jacqueline urement (mass/volume)Ordered By: Balwinder Alves on 06-26-2025 Calcium [Mass/Vol] 9.5 mg/dL 7.6-11.0 [facility] Serum or plasma urea nitroge n measurement (mass/volume)Ordered By: Balwinder Alves on 06-26-2025 Urea nitrogen [Mass/Vol] 9 mg/dL 4-19 [facility] Sodium levelOrdered By: Balwinder Alves on 06-26-2025 Sodium [Moles/Vol] 136 mmol/L 133-145 [facility] Total proteinOrdered By: Javed Alves on 06-26-2025 Protein [Mass/Vol] 6.3 g/dL 5.9-8.4 [facility] White blood cell (WBC) count Ordered By: Balwinder Alves on 06-26-2025 WBC (Bld) [#/Vol] 7.7 10*3/uL 4.4-11.0 [facility] Anion gap in Serum or Plasma Ordered By: Balwinder Alves on 06-15-2025 Anion gap [Moles/Vol] 10 mmol/L 5-15 [facility] BUN/creatinine ratioOrdered By: Balwinder Alves on 06-15-2025 Urea nitrogen/Creatinine [Mass ratio] 13.5 mg/mg 10- [facility] Basic Metabolic Profile (BMP )on 06-15-2025 BUN/CRE 13.5 RATIO Normal - [facility] Comment on above: Order Comment: 102-2 Performed By: #### L 500.2500, L100.0100 #### [facility] [place], [address] Calcium [Mass/Vol] 9.6 mg/dL Normal 7.6-11.0 [facility] Comment on above: Order Comment: 102-2 Performed By: #### L 500.2500, L100.0100 #### [facility] [address] [place], [address] Chloride [Moles/Vol] 99 mmol/L Normal 98-108 [facility] Comment on above: Order Comment: 102-2 Performed By: #### L 500.2500, L100.0100 #### [facility] [address] [place], [address] CO2 [Moles/Vol] 28.8 mmol/L Normal 21.0-32.0 [facility] Comment on above: Order Comment: 102-2 Performed By: #### L 500.2500, L100.0100 #### [facility] [address] [place], [address] Creatinine [Mass/Vol] 0.71 mg/dL Normal 0.70-1.20 [facility] Comment on above: Order Comment: 102-2 Performed By: #### L 500.2500, L100.0100 #### [facility] [address] [place], [address] GAP 10 Normal 5-15 [facility] Comment on above: Order Comment: 102-2 Performed By: #### L 500.2500, L100.0100 #### [facility] [address] [place], [address] GFR/1.73 sq M.predicted among non-blacks MDRD (S/P/Bld) [Vol rate/Area] 85 mL/min/{1.73_m2} Normal >60 [facility] Comment on above: Order Comment: 102-2 Result Comment: mL/m in/1.73m2 CKD-EPI Creatinine Equation (2020) Performed By: #### L 500.2500, L100.0100 #### [facility] [address] [place], [address] Glucose [Mass/Vol] 204 mg/dL High 70-99 [facility] Comment on above: Order Comment: 102-2 Performed By: #### L 500.2500, L100.0100 #### [facility] [address] [place], [address] Potassium [Moles/Vol] 4.6 mmol/L Normal 3.3-5.1 [facility] Comment on above: Order Comment: 102-2 Performed By: #### L 500.2500, L100.0100 #### [facility] [address] [place], [address] Sodium [Moles/Vol] 138 mmol/L Normal 133-145 [facility] Comment on above: Order Comment: 102-2 Performed By: #### L 500.2500, L100.0100 #### [facility] [address] [place], [address] Urea nitrogen [Mass/Vol] 10 mg/dL Normal 4-19 [facility] Comment on above: Order Comment: 102-2 Performed By: #### L 500.2500, L100.0100 #### [facility] [address] [place], [address] CBC-Complete Blood Cnt No Di ffon 06-15-2025 Erythrocyte distribution width (RBC) [Ratio] 14.3 % Normal 11.6-14.6 [facility] [facility] Comment on above: Order Comment: 102-2 Performed By: #### L 500.2500, L100.0100 #### [facility] [address] [place], [address] Hematocrit (Bld) [Volume fraction] 36.7 % Low 37-47 [facility] Comment on above: Order Comment: 102-2 Performed By: #### L 500.2500, L100.0100 #### [facility] [address] [place], [address] Hemoglobin (Bld) [Mass/Vol] 11.3 g/dL Low 12.0-15.0 [facility] Comment on above: Order Comment: 102-2 Performed By: #### L 500.2500, L100.0100 #### [facility] [address] [place], [address] MCH (RBC) [Entitic mass] 28.8 pg Normal 27.0-32.0 [facility] Comment on above: Order Comment: 102-2 Performed By: #### L 500.2500, L100.0100 #### [facility] [address] [place], [address] MCHC (RBC) [Mass/Vol] 30.8 g/dL Low 32-36 [facility] Comment on above: Order Comment: 102-2 Performed By: #### L 500.2500, L100.0100 #### [facility] [address] [place], [address] MCV (RBC) [Entitic vol] 93.4 fL Normal 81-99 [facility] Comment on above: Order Comment: 102-2 Performed By: #### L 500.2500, L100.0100 #### [facility] [address] [place], [address] Platelet mean volume (Bld) [Entitic vol] 8.3 fL Normal 6.2-12.0 [facility] Comment on above: Order Comment: 102-2 Performed By: #### L 500.2500, L100.0100 #### [facility] [address] [place], [address] Platelets (Bld) [#/Vol] 184 10*3/uL Normal 150-450 [facility] Comment on above: Order Comment: 102-2 Performed By: #### L 500.2500, L100.0100 #### [facility] [address] [place], [address] RBC (Bld) [#/Vol] 3.93 10*6/uL Low 4.2-5.4 [facility] Comment on above: Order Comment: 102-2 Performed By: #### L 500.2500, L100.0100 #### [facility] [address] [place], [address] RDW SD 49.1 fl High 35.1-43.9 [facility] Comment on above: Order Comment: 102-2 Performed By: #### L 500.2500, L100.0100 #### [facility] [address] [place], [address] WBC (Bld) [#/Vol] 6.4 10*3/uL Normal 4.4-11.0 [facility] Comment on above: Order Comment: 102-2 Performed By: #### L 500.2500, L100.0100 #### [facility] [address] [place], [address] Carbon dioxide, total [Moles /volume] in Central venous bloodOrdered By: Balwinder Alves on 06-15-2025 CO2 [Moles/Vol] 28.8 mmol/L 21.0-32.0 [facility] Chloride assayOrdered By: Jen Alves on 06-15-2025 Chloride [Moles/Vol] 99 mmol/L 98-108 [facility] Erythrocyte distribution wid th ratioOrdered By: Balwinder Alves on 06-15-2025 Erythrocyte distribution width (RBC) [Ratio] 14.3 % 11.6-14.6 [facility] Erythrocyte distribution wid th standard deviationOrdered By: Balwinder Alves on 06-15-2025 Erythrocyte distribution width (RBC) [Ratio] 49.1 fl High 35.1-43.9 [facility] Glomerular filtration rate ( GFR) estimation/1.73 sq m using serum, plasma, or whole bOrdered By: Balwinder Alves on 06-15-2025 GFR/1.73 sq M.predicted among non-blacks MDRD (S/P/Bld) [Vol rate/Area] 85 mL/min/{1.73_m2} >60 [facility] Comment on above: mL/min/1.73m2 CKD-EP I Creatinine Equation (2020) Hematocrit Auto (Bld) [Volum e fraction]Ordered By: Balwinder Alves on 06-15-2025 Hematocrit (Bld) [Volume fraction] 36.7 % Low 37-47 [facility] Hemoglobin measurementOrdere d By: Balwinder Alves on 06-15-2025 Hemoglobin (Bld) [Mass/Vol] 11.3 g/dL Low 12.0-15.0 [facility] MCV (mean corpuscular volume ) determinationOrdered By: Balwinder Alves on 06-15-2025 MCV (RBC) [Entitic vol] 93.4 fL 81-99 [facility] Mean corpuscular hemoglobin (MCH) determinationOrdered By: Balwinder Alves on 06-15-2025 MCH (RBC) [Entitic mass] 28.8 pg 27.0-32.0 [facility] Mean corpuscular hemoglobin concentration (MCHC) determinationOrdered By: Balwinder Alves on 06-15-2025 MCHC (RBC) [Mass/Vol] 30.8 g/dL Low 32-36 [facility] Mean platelet volume determi nationOrdered By: Balwinder Alves on 06-15-2025 Platelet mean volume (Bld) [Entitic vol] 8.3 fL 6.2-12.0 [facility] Platelet countOrdered By: Jen Alves on 06-15-2025 Platelets (Bld) [#/Vol] 184 10*3/uL 150-450 [facility] Potassium measurement (mass/ volume)Ordered By: Balwinder Alves on 06-15-2025 Potassium (Unsp spec) [Mass/Vol] 4.6 mmol/L 3.3-5.1 [facility] RBC Auto (Bld) [#/Vol]Ordere d By: Balwinder Alves on 06-15-2025 RBC (Bld) [#/Vol] 3.93 10*6/uL Low 4.2-5.4 [facility] Serum creatinine measurement (mass/volume)Ordered By: Balwinder Alves on 06-15-2025 Creatinine [Mass/Vol] 0.71 mg/dL 0.70-1.20 [facility] Serum glucose measurement (m ass/volume)Ordered By: Balwinder Alves on 06-15-2025 Glucose [Mass/Vol] 204 mg/dL High 70-99 [facility] Serum or plasma calcium jacqueline urement (mass/volume)Ordered By: Balwinder Alves on 06-15-2025 Calcium [Mass/Vol] 9.6 mg/dL 7.6-11.0 [facility] Serum or plasma urea nitroge n measurement (mass/volume)Ordered By: Balwinder Alves on 06-15-2025 Urea nitrogen [Mass/Vol] 10 mg/dL 4-19 [facility] Sodium levelOrdered By: Balwinder Alves on 06-15-2025 Sodium [Moles/Vol] 138 mmol/L 133-145 [facility] White blood cell (WBC) count Ordered By: Balwinder Alves on 06-15-2025 WBC (Bld) [#/Vol] 6.4 10*3/uL 4.4-11.0 [facility] Urine Cultureon 06-05-2025 [facility] POSSIBLE E.COLI 0157 . UNABLE TO CONFIRM, TESTING DISCONTINUED AT [facility]. Urine Culture [facility] 0904 Lorrie Patterson. REPORT READ BACK BY . Urine Culture Copy of report sent to Infection Control Printer [id number] 06/04/25 0903 ESSENCE. ESBL Escherichia coli [place] Count 80,000-100,000 MARKER ESBL producing OrganismA MARKER [...] S Tobramycin Islt PREM <=1 S Normal [facility] Comment on above: Performed By: #### L 500.2500, L100.0100 #### [facility] [place], [address] Calculated very low density lipoprotein (VLDL) cholesterol measurementOrdered By: Balwinder Alves on 06-01-2025 Calculated very low density lipoprotein (VLDL) cholesterol measurement 40 mg/dL [facility] Hemoglobin A1c percentageOrd ered By: Balwinder Alves on 06-01-2025 HbA1c (Bld) [Mass fraction] 7.8 % High <=5.6 [facility] Comment on above: Normal < 5.7 % Predi abetic 5.7 - 6.4 % Diabetic >or= 6.5 % Please note range changes. Result Comment: Norm al < 5.7 % Prediabetic 5.7 - 6.4 % Diabetic >or= 6.5 % Please note range changes. Performed By: #### M 100.2200, L4 #### [facility] [address] [place], [place], [address] LDL calc ser/plasOrdered By: Balwinder Alves on 06-01-2025 Cholesterol in LDL [Mass/Vol] 28 mg/dL Normal [facility] Comment on above: Alvtsvmcmm=566-320 m g/dL & Higher Tbqr=757 mg/dL or greaterFriedwald Equation for LDL-C Order Comment: 102.2 Result Comment: Bord pmxcmg=801-887 mg/dL Higher Gufg=367 mg/dL or greater Friedwald Equation for LDL-C Performed By: #### M 100.2200, L4 #### [facility] [address] [place], [place], [address] Lipid Profileon 06-01-2025 CHOL:HDL 2.24 Normal [facility] Comment on above: Order Comment: 102.2 Performed By: #### M 100.2200, L4 #### [facility] [address] [place], [address] Cholesterol in VLDL [Mass/Vol] 40 mg/dL Normal [facility] Comment on above: Order Comment: 102.2 Performed By: #### M 100.2200, L4 #### [facility] [address] [place], [place], [address] Screening total cholesterol/ high density lipoprotein (HDL) cholesterol ratioOrdered By: Balwinder Alves on 06-01-2025 Cholesterol.total/Jany sterol in HDL [Mass ratio] 2.24 {ratio} [facility] Serum or plasma cholesterol in HDL measurement (mass/volume)Ordered By: Balwinder Alves on 06-01-2025 Cholesterol in HDL [Mass/Vol] 55 mg/dL Normal [facility] Comment on above: National Cholesterol Education [...] Performed By: #### M 100.2200, L400.2010 #### [facility] [address] [place], [place], [address] Serum or plasma cholesterol measurement (mass/volume)Ordered By: Balwinder Alves on 06-01-2025 Cholesterol [Mass/Vol] 123 mg/dL Normal <=200 [facility] Comment on above: Cholesterol level, D esirable <200 mg/dLBorderline high cholesterol 200-239 mg/dLHigh cholesterol >=240 mg/dLRecommendations of the NCEP Adult Treatment Panel for the following risk-cutoff thresholds for the [place] population. Order Comment: 102.2 Result Comment: Chol esterol level, Desirable <200 mg/dL Borderline high cholesterol 200-239 mg/dL High cholesterol >=240 mg/dL Recommendations of the NCEP Adult Treatment Panel for the following risk-cutoff thresholds for the [place] population. Performed By: #### M 100.2200, L400.2010 #### [facility] [address] [place], [address] Triglycerides measurementOrd ered By: Balwinder Alves on 06-01-2025 Triglyceride [Mass/Vol] 199 mg/dL Normal [facility] Comment on above: The [...] Performed By: #### M 100.0, L400.2010 #### [facility] [address] [place], [address] Urinalysis, Routine (Dipstic k)on 06-01-2025 BILIRUBIN URINE Negative Normal Negative [facility] Comment on above: Order Comment: 102-2 Performed By: #### L 500.2500, L100.0100 #### [facility] [address] [place], [address] Clarity (U) Cloudy Normal Clear [facility] Comment on above: Order Comment: 102-2 Performed By: #### L 500.2500, L100.0100 #### [facility] [address] [place], [address] Color (U) Yellow Normal Yellow [facility] Comment on above: Order Comment: 102-2 Performed By: #### L 500.2500, L100.0100 #### [facility] [address] [place], [address] GLUCOSE, UR Normal Normal Normal [facility] Comment on above: Order Comment: 102-2 Performed By: #### L 500.2500, L100.0100 #### [facility] [address] [place], [address] KETONE UR Negative Normal Negative [facility] Comment on above: Order Comment: 102-2 Performed By: #### L 500.2500, L100.0100 #### [facility] [address] [place], [address] LEUK ESTERASE 500 /ul Abnormal Negative [facility] Comment on above: Order Comment: 102-2 Performed By: #### L 500.2500, L100.0100 #### [facility] [address] [place], [address] Nitrite Ql (U) Positive Abnormal Negative [facility] Comment on above: Order Comment: 102-2 Performed By: #### L 500.2500, L100.0100 #### [facility] [address] [place], [address] OCCULT BLOOD-UR 250 /ul Abnormal Negative [facility] Comment on above: Order Comment: 102-2 Performed By: #### L 500.2500, L100.0100 #### [facility] [address] [place], [address] pH UR 6.0 Normal 5.0 - 8.0 [facility] Comment on above: Order Comment: 102-2 Performed By: #### L 500.2500, L100.0100 #### [facility] [address] [place], [address] PROT DIPSTX 30 mg/dl Abnormal Negative [facility] Comment on above: Order Comment: 102-2 Performed By: #### L 500.2500, L100.0100 #### [facility] [address] [place], [address] SP.GR. DIPSTX 1.015 Normal 1.002-1.030 [facility] Comment on above: Order Comment: 102-2 Performed By: #### L 500.2500, L100.0100 #### [facility] [address] [place], [address] UROBILI Normal Normal Normal [facility] Comment on above: Order Comment: 102-2 Performed By: #### L 500.2500, L100.0100 #### [facility] [address] [place], [address] Vitamin D,25 Hydroxyon 06-01 Vitamin D 25-OH 31.8 ng/mL Normal 30-100 [facility] Comment on above: Order Comment: 102.2 Result Comment: Feli min D Status Deficiency: <20 ng/mL (50nmol/L) Insufficiency: 20-30 ng/mL (50-75 nmol/L) Sufficiency: 30-100 ng/mL (75-250 nmol/L) Toxicity: >100 ng/mL (>250 nmol/L) Performed By: #### M 100.2200, L400.2010 #### [facility] [address] [place], [place], [address] Bilirubin Test strip Ql (U)O rdered By: Balwinder Alves on 05-31-2025 Bilirubin Ql (U) Negative Negative [facility] Ketones Test strip Ql (U)Ord ered By: Balwinder Alves on 05-31-2025 Ketones Ql (U) Negative Negative [facility] Nitrite Test strip Ql (U)Ord ered By: Balwinder Alves on 05-31-2025 Nitrite Ql (U) Positive High Negative [facility] Protein Test strip Ql (U)Ord ered By: Balwinder Alves on 05-31-2025 Protein Ql (U) 30 mg/dl High Negative [facility] Urine clarityOrdered By: Javed Alves on 05-31-2025 Clarity (U) Cloudy Clear [facility] Urine color determinationOrd ered By: Balwinder Alves on 05-31-2025 Color (U) Yellow Yellow [facility] Urine cultureOrdered By: Javed Alves on 05-31-2025 Bacteria identified Cx Nom (U) ESBL Escherichia coli Abnormal [facility] Urine glucose detectionOrder ed By: Balwinder Alves on 05-31-2025 Glucose Ql (U) Normal mg/dl Normal [facility] Urine leukocyte esterase det ection by dipstickOrdered By: Balwinder Alves on 05-31-2025 Leukocyte esterase Test strip Ql (U) 500 /ul High Negative [facility] Urine pHOrdered By: Balwinder blackman on 05-31-2025 pH (U) 6.0 [pH] 5.0 - 8.0 [facility] Urine specific gravity measu rementOrdered By: Balwinder Alves on 05-31-2025 Specific gravity (U) [Rel density] 1.015 1.002-1.030 [facility] Urine urobilinogen measureme ntOrdered By: Balwinder Alves on 05-31-2025 Urobilinogen Ql (U) Normal mg/dl Normal [facility] MR/PAT.ANEon 05-30-2025 MR/PAT.ANE [facility] Medical Records Department [address] [place] [address] PAT - Anesthesia 05/30/25904 MR#: [id number] Acct: [id number] Name: GUMARO HUFF Rep #: [id number] : 1945 80 From: Shailesh Russell MD PCP: Dr. 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 worker Female Yes 05/29/25 16:00 HX of Motion [...] 05/17/25 10:04 Respiratory Assessment Respiratory Assessment - 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 worker: Respiratory Tract Infection Hx - 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 worker Hx Respiratory Tract Infection No 05/29/25 16:00 STOP Sleep Apnea STOP Sleep Apnea - 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 worker: STOP Sleep Apnea - 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 worker Hx Hypertension Yes 05/29/25 16:00 Hx Sleep [...] Tobacco Use History Tobacco Use History - 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 worker: Tobacco Use History - 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 worker Tobacco Use Smoking Status Former smoker 05/29/25 16:00 Hx Tobacco Use No 05/29/25 16:00 Years Smoking Packs Smoked per Day Smoking Cessation Date was Yes - quit smoking within 15 05/29/25 16:00 within the last 15 years years Hx Smoking Cessation Date 10/05/13 05/29/25 16:00 Hx Smoking Cessation Counseling Hematologic Medial History Hematologic Hx - 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 Normal [facility] Abdomen Single Viewon 2024 Abdomen Single View [facility] Imaging Services [address] [place], [place] [address] Abdomen Single View MR#: [id number] Acct: [id number] Name: GUMARO HUFF Rep #: [id number] : 1945 F 80 From: Filippo Barth MD PCP: Dr. Balwinder Alves MD Status: REG CLI Study: Abdomen Single View Date of Exam: 05/17/25 Exam# [id number] Ordering Dr: Dorota James MD PROCEDURE: ABDOMEN [...] renal staghorn calculus is redemonstrated. Reading Location: [place] [address] CC: Dr. Dorota James MD; Dr. Balwinder Alves MD Photo Lab Specialist: Signed Normal [facility] Absolute lymphocyte countOrd ered By: Dorota James on 05-17-2025 Lymphocytes Auto (Unsp spec) [#/Vol] 1.88 10*3/uL 0.83-4.51 [facility] Absolute neutrophil countOrd ered By: Dorotaismael James on 05-17-2025 Neutrophils (Bld) [#/Vol] 4.3 10*3/uL 2.0-7.7 [facility] Anion gap in Serum or Plasma Ordered By: Dorota James on 05-17-2025 Anion gap [Moles/Vol] 12 mmol/L 02-16 [facility] Automated lymphocyte count a s percentage of total leukocytesOrdered By: Dorota James on 05-17-2025 Lymphocytes/100 WBC Auto (Unsp spec) 27.0 % - [facility] BUN/creatinine ratioOrdered By: Dorota James on 05-17-2025 Urea nitrogen/Creatinine [Mass ratio] 14.0 mg/mg 07-24 [facility] Basic Metabolic Profile (BMP )on 05-17-2025 BUN/CRE 14.0 RATIO Normal 07-24 [facility] Comment on above: Performed By: #### L 500.2500, L500.3400, L100.0500 #### [facility] [address] [place], [address] GAP 12 Normal 02-16 [facility] Comment on above: Performed By: #### L 500.2500, L500.3400, L100.0500 #### [facility] [address] [place], [address] Potassium [Moles/Vol] 4.7 mmol/L Normal 3.3-5.1 [facility] Comment on above: Performed By: #### L 500.2500, L500.3400, L100.0500 #### [facility] [address] [place], [address] Basophil percentageOrdered B y: Dorota James on 05-17-2025 Basophils/100 WBC (Bld) 0.4 % 0-1 [facility] CBC W/Diff, Automatedon 05-05 Absolute Lymph 1.88 X10 3/uL Normal 0.83-4.51 [facility] Comment on above: Performed By: #### L 100.0500, L500.2500 #### [facility] [address] [place], [address] Absolute Neut 4.3 X10 3/uL Normal 2.0-7.7 [facility] Comment on above: Performed By: #### L 100.0500, L500.2500 #### [facility] [address] [place], [address] Basophils/100 WBC (Bld) 0.4 % Normal 0-1 [facility] Comment on above: Performed By: #### L 100.0500, L500.2500 #### [facility] [address] [place], [address] Eosinophils/100 WBC (Bld) 4.3 % Normal 0-5 [facility] Comment on above: Performed By: #### L 100.0500, L500.2500 #### [facility] [address] [place], [address] Erythrocyte distribution width (RBC) [Ratio] 14.1 % Normal 11.6-14.6 [facility] Comment on above: Performed By: #### L 100.0500, L500.2500 #### [facility] [address] [place], [address] Hematocrit (Bld) [Volume fraction] 39.8 % Normal 37-47 [facility] Comment on above: Performed By: #### L 100.0500, L500.2500 #### [facility] [address] [place], [address] Hemoglobin (Bld) [Mass/Vol] 12.1 g/dL Normal 12.0-15.0 [facility] Comment on above: Performed By: #### L 100.0500, L500.2500 #### [facility] [address] [place], [address] IG% 0.700 Normal 0.0-0.9 [facility] Comment on above: Result Comment: IG% - Immature Granulocytes (promyelocytes, myelocytes and metamyelocytes) > 1% indicates that a LEFT SHIFT is Present. Performed By: #### L 100.0500, L500.2500 #### [facility] [address] [place], [address] Lymphocytes/100 WBC (Bld) 27.0 % Normal 19-41 [facility] Comment on above: Performed By: #### L 100.0500, L500.2500 #### [facility] [address] [place], [address] MCH (RBC) [Entitic mass] 28.7 pg Normal 27.0-32.0 [facility] Comment on above: Performed By: #### L 100.0500, L500.2500 #### [facility] [address] [place], [address] MCHC (RBC) [Mass/Vol] 30.4 g/dL Low 32-36 [facility] Comment on above: Performed By: #### L 100.0500, L500.2500 #### [facility] [address] [place], [address] MCV (RBC) [Entitic vol] 94.5 fL Normal 81-99 [facility] Comment on above: Performed By: #### L 100.0500, L500.2500 #### [facility] [address] [place], [address] Monocytes/100 WBC (Bld) 6.5 % Normal 0-10 [facility] Comment on above: Performed By: #### L 100.0500, L500.2500 #### [facility] [facility] [address] [place], [address] Neutrophils/100 WBC (Bld) 61.1 % Normal 47-70 [facility] Comment on above: Performed By: #### L 100.0500, L500.2500 #### [facility] [address] [place], [address] Nucleated RBC (Bld) [#/Vol] 0 10*3/uL Normal 0-5 [facility] Comment on above: Performed By: #### L 100.0500, L500.2500 #### [facility] [address] [place], [address] Platelet mean volume (Bld) [Entitic vol] 8.8 fL Normal 6.2-12.0 [facility] Comment on above: Performed By: #### L 100.0500, L500.2500 #### [facility] [address] [place], [address] Platelets (Bld) [#/Vol] 220 10*3/uL Normal 150-450 [facility] Comment on above: Performed By: #### L 100.0500, L500.2500 #### [facility] [address] [place], [address] RBC (Bld) [#/Vol] 4.21 10*6/uL Normal 4.2-5.4 [facility] Comment on above: Performed By: #### L 100.0500, L500.2500 #### [facility] [address] [place], [address] RDW SD 48.4 fl High 35.1-43.9 [facility] Comment on above: Performed By: #### L 100.0500, L500.2500 #### [facility] [address] [place], [address] WBC (Bld) [#/Vol] 7.0 10*3/uL Normal 4.4-11.0 [facility] Comment on above: Performed By: #### L 100.0500, L500.2500 #### [facility] [address] [place], [address] Carbon dioxide, total [Moles /volume] in Central venous bloodOrdered By: Dorota James on 05-17-2025 CO2 [Moles/Vol] 26.4 mmol/L Normal 21.0-32.0 [facility] Comment on above: Performed By: #### L 500.2500, L500.3400, L100.0500 #### [facility] [address] [place], [address] Chloride assayOrdered By: Manuel James on 05-17-2025 Chloride [Moles/Vol] 99 mmol/L Normal 98-108 [facility] Comment on above: Performed By: #### L 500.2500, L500.3400, L100.0500 #### [facility] [address] [place], [address] Eosinophil percentageOrdered By: Dorota James on 05-17-2025 Eosinophils/100 WBC (Bld) 4.3 % 0-5 [facility] Erythrocyte distribution wid th ratioOrdered By: Dorota James on 05-17-2025 Erythrocyte distribution width (RBC) [Ratio] 14.1 % 11.6-14.6 [facility] Erythrocyte distribution wid th standard deviationOrdered By: Dorota James on 05-17-2025 Erythrocyte distribution width (RBC) [Ratio] 48.4 fl High 35.1-43.9 [facility] Glomerular filtration rate ( GFR) estimation/1.73 sq m using serum, plasma, or whole bOrdered By: Dorota James on 05-17-2025 GFR/1.73 sq M.predicted among non-blacks MDRD (S/P/Bld) [Vol rate/Area] 82 mL/min/{1.73_m2} Normal >60 [facility] Comment on above: mL/min/1.73m2 CKD-EP I Creatinine Equation (2020) Result Comment: mL/m in/1.73m2 CKD-EPI Creatinine Equation (2020) Performed By: #### L 500.2500, L500.3400, L100.0500 #### [facility] [address] [place], [address] Hematocrit Auto (Bld) [Volum e fraction]Ordered By: Dorota James on 05-17-2025 Hematocrit (Bld) [Volume fraction] 39.8 % 37-47 [facility] Hemoglobin measurementOrdere d By: Dorota James on 05-17-2025 Hemoglobin (Bld) [Mass/Vol] 12.1 g/dL 12.0-15.0 [facility] Immature granulocytes/100 WB C Auto (Bld)Ordered By: Dorota James on 05-17-2025 Immature granulocytes/100 WBC (Bld) 0.700 % 0.0-0.9 [facility] Comment on above: IG% - Immature Granu locytes (promyelocytes, myelocytes and metamyelocytes) > 1% indicates that a LEFT SHIFT is Present. Laboratory - Chemistry and C hemistry - challengeOrdered By: Dorota James on 05-17-2025 Bilirubin Ql (U) Negative [facility] Glucose Ql (U) Negative [facility] Ketones Ql (U) Negative [facility] pH (U) 5 [pH] [facility] Specific gravity (U) [Rel density] 1.010 [facility] Urobilinogen (U) [Mass/Vol] Negative [facility] Laboratory - Hematology and Cell countsOrdered By: Dorota James on 05-17-2025 Hemoglobin Ql (U) Negative [facility] Laboratory - UrinalysisOrder ed By: Dorota James on 05-17-2025 Nitrite Ql (U) Positive [facility] Protein Ql (U) Negative [facility] MCV (mean corpuscular volume ) determinationOrdered By: Dorota James on 05-17-2025 MCV (RBC) [Entitic vol] 94.5 fL 81-99 [facility] MR/Deangelo 05-17-2025 MR/OTIL[facility] [address], [address] [place] [address] OFFICE VISIT Date of Service: 05/17/25 MR#: [id number] Acct: [id number] Name: GUMARO HUFF Rep #: [id number] : 1945 Provider: Dr. 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 [facility] Medical History (Updated 05/17/25 @ [...] dizziness, weakness, (more content not included)... Normal [facility] Mean corpuscular hemoglobin (MCH) determinationOrdered By: Dorota James on 05-17-2025 MCH (RBC) [Entitic mass] 28.7 pg 27.0-32.0 [facility] Mean corpuscular hemoglobin concentration (MCHC) determinationOrdered By: Dorota James on 05-17-2025 MCHC (RBC) [Mass/Vol] 30.4 g/dL Low 32-36 [facility] Mean platelet volume determi nationOrdered By: Dorota James on 05-17-2025 Platelet mean volume (Bld) [Entitic vol] 8.8 fL 6.2-12.0 [facility] Monocyte percentageOrdered B y: Dorota James on 05-17-2025 Monocytes/100 WBC (Bld) 6.5 % 0-10 [facility] Neutrophil percentageOrdered By: Dorota James on 05-17-2025 Neutrophils/100 WBC (Bld) 61.1 % 47-70 [facility] No Panel InformationOrdered By: Dorota James on 05-17-2025 Urine Leukocytes Positive [facility] Urine Non-Hemolyzed Blood Negative [facility] Nucleated red blood cell per centageOrdered By: Dorota James on 05-17-2025 Nucleated RBC/100 WBC (Bld) [Ratio] 0 % 0-5 [facility] Platelet countOrdered By: Manuel James on 05-17-2025 Platelets (Bld) [#/Vol] 220 10*3/uL 150-450 [facility] Potassium measurement (mass/ volume)Ordered By: Dorota James on 05-17-2025 Potassium (Unsp spec) [Mass/Vol] 4.7 mmol/L 3.3-5.1 [facility] RBC Auto (Bld) [#/Vol]Ordere d By: oDrota James on 05-17-2025 RBC (Bld) [#/Vol] 4.21 10*6/uL 4.2-5.4 [facility] Serum creatinine measurement (mass/volume)Ordered By: Dorota James on 05-17-2025 Creatinine [Mass/Vol] 0.73 mg/dL Normal 0.70-1.20 [facility] Comment on above: Performed By: #### L 500.2500, L500.3400, L100.0500 #### [facility] [address] [place], [address] Serum glucose measurement (m ass/volume)Ordered By: Dorota James on 05-17-2025 Glucose [Mass/Vol] 179 mg/dL High 70-99 [facility] Comment on above: Performed By: #### L 500.2500, L500.3400, L100.0500 #### [facility] [address] [place], [address] Serum or plasma calcium jacqueline urement (mass/volume)Ordered By: Dorota James on 05-17-2025 Calcium [Mass/Vol] 9.5 mg/dL Normal 7.6-11.0 [facility] Comment on above: Performed By: #### L 500.2500, L500.3400, L100.0500 #### [facility] [address] [place], [address] Serum or plasma urea nitroge n measurement (mass/volume)Ordered By: Dorota James on 05-17-2025 Urea nitrogen [Mass/Vol] 10 mg/dL Normal 4-19 [facility] Comment on above: Performed By: #### L 500.2500, L500.3400, L100.0500 #### [facility] [address] [place], [address] Sodium levelOrdered By: Sarah James on 05-17-2025 Sodium [Moles/Vol] 137 mmol/L Normal 133-145 [facility] Comment on above: Performed By: #### L 500.2500, L500.3400, L100.0500 #### [facility] [address] [place], [address] White blood cell (WBC) count Ordered By: Dorota James on 05-17-2025 WBC (Bld) [#/Vol] 7.0 10*3/uL 4.4-11.0 [facility] Abdomen/Pelvis without Conto n 03-31-2025 Abdomen/Pelvis without Cont [facility] [address] [place] [address] Abdomen/Pelvis without Cont MR#: [id number] Acct: [id number] Name: GUMARO HUFF Rep #: [id number] : 1945 F 80 From: Douglas ceron MD PCP: Dr. Balwinder Alves MD Status: REG CLI Study: Abdomen/Pelvis without Cont Date of Exam: 03/06 04/28 Exam# [id number] Ordering Dr: Dorota James MD PROCEDURE: ABDOMEN/PELVIS [...] Sigmoid diverticulosis. Status post cholecystectomy. Reading Location: [id number] CC: Dr. Dorota James MD; Dr. Balwinder Alves MD Photo Lab Specialist: Signed Normal [facility] Anion gap in Serum or Plasma Ordered By: Balwinder Alves on 03-16-2025 Anion gap [Moles/Vol] 11 mmol/L - [facility] BUN/creatinine ratioOrdered By: Balwinder Alves on 03-16-2025 Urea nitrogen/Creatinine [Mass ratio] 13.7 mg/mg - [facility] Basic Metabolic Profile (BMP )on 03-16-2025 BUN/CRE 13.7 RATIO Normal - [facility] Comment on above: Order Comment: 102-2 Performed By: #### L 500.2500, L100.0100 #### [facility] [address] [place], [address] Calcium [Mass/Vol] 9.6 mg/dL Normal 7.6-11.0 [facility] Comment on above: Order Comment: 102-2 Performed By: #### L 500.2500, L100.0100 #### [facility] [address] [place], [address] Chloride [Moles/Vol] 99 mmol/L Normal 98-108 [facility] Comment on above: Order Comment: 102-2 Performed By: #### L 500.2500, L100.0100 #### [facility] [address] [place], [address] CO2 [Moles/Vol] 28.0 mmol/L Normal 21.0-32.0 [facility] Comment on above: Order Comment: 102-2 Performed By: #### L 500.2500, L100.0100 #### [facility] [address] [place], [address] Creatinine [Mass/Vol] 0.67 mg/dL Low 0.70-1.20 [facility] Comment on above: Order Comment: 102-2 Performed By: #### L 500.2500, L100.0100 #### [facility] [address] [place], [address] GAP 11 Normal 5-15 [facility] Comment on above: Order Comment: 102-2 Performed By: #### L 500.2500, L100.0100 #### [facility] [address] [place], [address] GFR/1.73 sq M.predicted among non-blacks MDRD (S/P/Bld) [Vol rate/Area] 87 mL/min/{1.73_m2} Normal >60 [facility] Comment on above: Order Comment: 102-2 Result Comment: mL/m in/1.73m2 CKD-EPI Creatinine Equation (2020) Performed By: #### L 500.2500, L100.0100 #### [facility] [address] [place], [address] Glucose [Mass/Vol] 222 mg/dL High 70-99 [facility] Comment on above: Order Comment: 102-2 Performed By: #### L 500.2500, L100.0100 #### [facility] [address] [place], [address] Potassium [Moles/Vol] 4.3 mmol/L Normal 3.3-5.1 [facility] Comment on above: Order Comment: 102-2 Performed By: #### L 500.2500, L100.0100 #### [facility] [address] [place], [address] Sodium [Moles/Vol] 139 mmol/L Normal 133-145 [facility] Comment on above: Order Comment: 102-2 Performed By: #### L 500.2500, L100.0100 #### [facility] [address] [place], [address] Urea nitrogen [Mass/Vol] 9 mg/dL Normal 4-19 [facility] Comment on above: Order Comment: 102-2 Performed By: #### L 500.2500, L100.0100 #### [facility] [address] [place], [address] CBC-Complete Blood Cnt No Di ffon 03-16-2025 Erythrocyte distribution width (RBC) [Ratio] 15.1 % High 11.6-14.6 [facility] Comment on above: Order Comment: 102-2 Performed By: #### L 500.2500, L100.0100 #### [facility] [address] [place], [address] Hematocrit (Bld) [Volume fraction] 35.7 % Low 37-47 [facility] Comment on above: Order Comment: 102-2 Performed By: #### L 500.2500, L100.0100 #### [facility] [address] [place], [address] Hemoglobin (Bld) [Mass/Vol] 10.9 g/dL Low 12.0-15.0 [facility] Comment on above: Order Comment: 102-2 Performed By: #### L 500.2500, L100.0100 #### [facility] [address] [place], [address] MCH (RBC) [Entitic mass] 28.8 pg Normal 27.0-32.0 [facility] Comment on above: Order Comment: 102-2 Performed By: #### L 500.2500, L100.0100 #### [facility] [address] [place], [address] MCHC (RBC) [Mass/Vol] 30.5 g/dL Low 32-36 [facility] Comment on above: Order Comment: 102-2 Performed By: #### L 500.2500, L100.0100 #### [facility] [address] [place], [address] MCV (RBC) [Entitic vol] 94.4 fL Normal 81-99 [facility] Comment on above: Order Comment: 102-2 Performed By: #### L 500.2500, L100.0100 #### [facility] [address] [place], [address] Platelet mean volume (Bld) [Entitic vol] 8.6 fL Normal 6.2-12.0 [facility] Comment on above: Order Comment: 102-2 Performed By: #### L 500.2500, L100.0100 #### [facility] [address] [place], [address] Platelets (Bld) [#/Vol] 187 10*3/uL Normal 150-450 [facility] Comment on above: Order Comment: 102-2 Performed By: #### L 500.2500, L100.0100 #### [facility] [address] [place], [address] RBC (Bld) [#/Vol] 3.78 10*6/uL Low 4.2-5.4 [facility] Comment on above: Order Comment: 102-2 Performed By: #### L 500.2500, L100.0100 #### [facility] [address] [place], [address] RDW SD 51.7 fl High 35.1-43.9 [facility] Comment on above: Order Comment: 102-2 Performed By: #### L 500.2500, L100.0100 #### [facility] [address] [place], [address] WBC (Bld) [#/Vol] 7.1 10*3/uL Normal 4.4-11.0 [facility] Comment on above: Order Comment: 102-2 Performed By: #### L 500.2500, L100.0100 #### [facility] [address] [place], [address] Carbon dioxide, total [Moles /volume] in Central venous bloodOrdered By: Balwinder Alves on 03-16-2025 CO2 [Moles/Vol] 28.0 mmol/L 21.0-32.0 [facility] Chloride assayOrdered By: Jen Alves on 03-16-2025 Chloride [Moles/Vol] 99 mmol/L 98-108 [facility] Erythrocyte distribution wid th ratioOrdered By: Balwinder Alves on 03-16-2025 Erythrocyte distribution width (RBC) [Ratio] 15.1 % High 11.6-14.6 [facility] Erythrocyte distribution wid th standard deviationOrdered By: Balwinder Alves on 03-16-2025 Erythrocyte distribution width (RBC) [Ratio] 51.7 fl High 35.1-43.9 [facility] Glomerular filtration rate ( GFR) estimation/1.73 sq m using serum, plasma, or whole bOrdered By: Balwinder Alves on 03-16-2025 GFR/1.73 sq M.predicted among non-blacks MDRD (S/P/Bld) [Vol rate/Area] 87 mL/min/{1.73_m2} >60 [facility] Comment on above: mL/min/1.73m2 CKD-EP I Creatinine Equation (2020) Hematocrit Auto (Bld) [Volum e fraction]Ordered By: Balwinder Alves on 03-16-2025 Hematocrit (Bld) [Volume fraction] 35.7 % Low 37-47 [facility] Hemoglobin measurementOrdere d By: Balwinder Alves on 03-16-2025 Hemoglobin (Bld) [Mass/Vol] 10.9 g/dL Low 12.0-15.0 [facility] MCV (mean corpuscular volume ) determinationOrdered By: Balwinder Alves on 03-16-2025 MCV (RBC) [Entitic vol] 94.4 fL 81-99 [facility] Mean corpuscular hemoglobin (MCH) determinationOrdered By: Balwinder Alves on 03-16-2025 MCH (RBC) [Entitic mass] 28.8 pg 27.0-32.0 [facility] Mean corpuscular hemoglobin concentration (MCHC) determinationOrdered By: Balwinder Alves on 03-16-2025 MCHC (RBC) [Mass/Vol] 30.5 g/dL Low 32-36 [facility] Mean platelet volume determi nationOrdered By: Balwinder Alves on 03-16-2025 Platelet mean volume (Bld) [Entitic vol] 8.6 fL 6.2-12.0 [facility] Platelet countOrdered By: Jen Alves on 03-16-2025 Platelets (Bld) [#/Vol] 187 10*3/uL 150-450 [facility] Potassium measurement (mass/ volume)Ordered By: Balwinder Alves on 03-16-2025 Potassium (Unsp spec) [Mass/Vol] 4.3 mmol/L 3.3-5.1 [facility] RBC Auto (Bld) [#/Vol]Ordere d By: Balwinder Alves on 03-16-2025 RBC (Bld) [#/Vol] 3.78 10*6/uL Low 4.2-5.4 [facility] Serum creatinine measurement (mass/volume)Ordered By: Balwinder Alves on 03-16-2025 Creatinine [Mass/Vol] 0.67 mg/dL Low 0.70-1.20 [facility] Serum glucose measurement (m ass/volume)Ordered By: Balwinder Alves on 03-16-2025 Glucose [Mass/Vol] 222 mg/dL High 70-99 [facility] Serum or plasma calcium jacqueline urement (mass/volume)Ordered By: Balwinder Alves on 03-16-2025 Calcium [Mass/Vol] 9.6 mg/dL 7.6-11.0 [facility] Serum or plasma urea nitroge n measurement (mass/volume)Ordered By: Balwinder Alves on 03-16-2025 Urea nitrogen [Mass/Vol] 9 mg/dL 4- [facility] Sodium levelOrdered By: Balwinder Alves on 03-16-2025 Sodium [Moles/Vol] 139 mmol/L 133-145 [facility] White blood cell (WBC) count Ordered By: Balwinder Alves on 03-16-2025 WBC (Bld) [#/Vol] 7.1 10*3/uL 4.4-11.0 [facility] Anion gap in Serum or Plasma Ordered By: Balwinder Alves on 03-15-2025 Anion gap [Moles/Vol] 9 mmol/L - [facility] BUN/creatinine ratioOrdered By: Balwinder Alves on 03-15-2025 Urea nitrogen/Creatinine [Mass ratio] 13.6 mg/mg 10- [facility] Basic Metabolic Profile (BMP )on 03-15-2025 BUN/CRE 13.6 RATIO Normal -20 [facility] Comment on above: Order Comment: 102.2 Performed By: #### L 100.0500, L500.2500 #### [facility] [address] [place], [address] Calcium [Mass/Vol] 9.6 mg/dL Normal 7.6-11.0 [facility] Comment on above: Order Comment: 102.2 Performed By: #### L 100.0500, L500.2500 #### [facility] [address] [place], [address] Chloride [Moles/Vol] 98 mmol/L Normal 98-108 [facility] Comment on above: Order Comment: 102.2 Performed By: #### L 100.0500, L500.2500 #### [facility] [address] [place], [address] CO2 [Moles/Vol] 30.1 mmol/L Normal 21.0-32.0 [facility] Comment on above: Order Comment: 102.2 Performed By: #### L 100.0500, L500.2500 #### [facility] [address] [place], [address] Creatinine [Mass/Vol] 0.79 mg/dL Normal 0.70-1.20 [facility] Comment on above: Order Comment: 102.2 Performed By: #### L 100.0500, L500.2500 #### [facility] [address] [place], [address] GAP 9 Normal 5-15 [facility] Comment on above: Order Comment: 102.2 Performed By: #### L 100.0500, L500.2500 #### [facility] [address] [place], [address] GFR/1.73 sq M.predicted among non-blacks MDRD (S/P/Bld) [Vol rate/Area] 75 mL/min/{1.73_m2} Normal >60 [facility] Comment on above: Order Comment: 102.2 Result Comment: mL/m in/1.73m2 CKD-EPI Creatinine Equation (2020) Performed By: #### L 100.0500, L500.2500 #### [facility] [address] [place], [address] Glucose [Mass/Vol] 188 mg/dL High 70-99 [facility] Comment on above: Order Comment: 102.2 Performed By: #### L 100.0500, L500.2500 #### [facility] [address] [place], [address] Potassium [Moles/Vol] 4.7 mmol/L Normal 3.3-5.1 [facility] Comment on above: Order Comment: 102.2 Performed By: #### L 100.0500, L500.2500 #### [facility] [address] [place], [address] Sodium [Moles/Vol] 137 mmol/L Normal 133-145 [facility] Comment on above: Order Comment: 102.2 Performed By: #### L 100.0500, L500.2500 #### [facility] [address] [place], [address] Urea nitrogen [Mass/Vol] 11 mg/dL Normal 4-19 [facility] Comment on above: Order Comment: 102.2 Performed By: #### L 100.0500, L500.2500 #### [facility] [address] [place], [address] CBC-Complete Blood Cnt No Di ffon 03-15-2025 Erythrocyte distribution width (RBC) [Ratio] 15.2 % High 11.6-14.6 [facility] Comment on above: Order Comment: 102.2 Performed By: #### L 100.0500, L500.2500 #### [facility] [address] [place], [address] Hematocrit (Bld) [Volume fraction] 36.2 % Low 37-47 [facility] Comment on above: Order Comment: 102.2 Performed By: #### L 100.0500, L500.2500 #### [facility] [address] [place], [address] Hemoglobin (Bld) [Mass/Vol] 11.1 g/dL Low 12.0-15.0 [facility] Comment on above: Order Comment: 102.2 Performed By: #### L 100.0500, L500.2500 #### [facility] [address] [place], [address] MCH (RBC) [Entitic mass] 28.9 pg Normal 27.0-32.0 [facility] Comment on above: Order Comment: 102.2 Performed By: #### L 100.0500, L500.2500 #### [facility] [address] [place], [address] MCHC (RBC) [Mass/Vol] 30.7 g/dL Low 32-36 [facility] Comment on above: Order Comment: 102.2 Performed By: #### L 100.0500, L500.2500 #### [facility] [address] [place], [address] MCV (RBC) [Entitic vol] 94.3 fL Normal 81-99 [facility] Comment on above: Order Comment: 102.2 Performed By: #### L 100.0500, L500.2500 #### [facility] [address] [place], [address] Platelet mean volume (Bld) [Entitic vol] 8.4 fL Normal 6.2-12.0 [facility] Comment on above: Order Comment: 102.2 Performed By: #### L 100.0500, L500.2500 #### [facility] [address] [place], [address] Platelets (Bld) [#/Vol] 177 10*3/uL Normal 150-450 [facility] Comment on above: Order Comment: 102.2 Performed By: #### L 100.0500, L500.2500 #### [facility] [address] [place], [address] RBC (Bld) [#/Vol] 3.84 10*6/uL Low 4.2-5.4 [facility] Comment on above: Order Comment: 102.2 Performed By: #### L 100.0500, L500.2500 #### [facility] [address] [place], [address] RDW SD 52.1 fl High 35.1-43.9 [facility] Comment on above: Order Comment: 102.2 Performed By: #### L 100.0500, L500.2500 #### [facility] [address] [place], [address] WBC (Bld) [#/Vol] 7.1 10*3/uL Normal 4.4-11.0 [facility] Comment on above: Order Comment: 102.2 Performed By: #### L 100.0500, L500.2500 #### [facility] [address] [place], [address] Carbon dioxide, total [Moles /volume] in Central venous bloodOrdered By: Balwinder Alves on 03-15-2025 CO2 [Moles/Vol] 30.1 mmol/L 21.0-32.0 [facility] Chloride assayOrdered By: Jen Alves on 03-15-2025 Chloride [Moles/Vol] 98 mmol/L 98-108 [facility] Erythrocyte distribution wid th ratioOrdered By: Balwinder Alves on 03-15-2025 Erythrocyte distribution width (RBC) [Ratio] 15.2 % High 11.6-14.6 [facility] Erythrocyte distribution wid th standard deviationOrdered By: Balwinder Alves on 03-15-2025 Erythrocyte distribution width (RBC) [Ratio] 52.1 fl High 35.1-43.9 [facility] Glomerular filtration rate ( GFR) estimation/1.73 sq m using serum, plasma, or whole bOrdered By: Balwinder Alves on 03-15-2025 GFR/1.73 sq M.predicted among non-blacks MDRD (S/P/Bld) [Vol rate/Area] 75 mL/min/{1.73_m2} >60 [facility] Comment on above: mL/min/1.73m2 CKD-EP I Creatinine Equation (2020) Hematocrit Auto (Bld) [Volum e fraction]Ordered By: Balwinder Alves on 03-15-2025 Hematocrit (Bld) [Volume fraction] 36.2 % Low 37-47 [facility] Hemoglobin measurementOrdere d By: Balwinder Alves on 03-15-2025 Hemoglobin (Bld) [Mass/Vol] 11.1 g/dL Low 12.0-15.0 [facility] MCV (mean corpuscular volume ) determinationOrdered By: Balwinder Alves on 03-15-2025 MCV (RBC) [Entitic vol] 94.3 fL 81-99 [facility] Mean corpuscular hemoglobin (MCH) determinationOrdered By: Balwinder Alves on 03-15-2025 MCH (RBC) [Entitic mass] 28.9 pg 27.0-32.0 [facility] Mean corpuscular hemoglobin concentration (MCHC) determinationOrdered By: Balwinder Alves on 03-15-2025 MCHC (RBC) [Mass/Vol] 30.7 g/dL Low 32-36 [facility] Mean platelet volume determi nationOrdered By: Balwinder Alves on 03-15-2025 Platelet mean volume (Bld) [Entitic vol] 8.4 fL 6.2-12.0 [facility] Platelet countOrdered By: Jen Alves on 03-15-2025 Platelets (Bld) [#/Vol] 177 10*3/uL 150-450 [facility] Potassium measurement (mass/ volume)Ordered By: Balwinder Alves on 03-15-2025 Potassium (Unsp spec) [Mass/Vol] 4.7 mmol/L 3.3-5.1 [facility] RBC Auto (Bld) [#/Vol]Ordere d By: Balwinder Alves on 03-15-2025 RBC (Bld) [#/Vol] 3.84 10*6/uL Low 4.2-5.4 [facility] Serum creatinine measurement (mass/volume)Ordered By: Balwinder Alves on 03-15-2025 Creatinine [Mass/Vol] 0.79 mg/dL 0.70-1.20 [facility] Serum glucose measurement (m ass/volume)Ordered By: Balwinder Alves on 03-15-2025 Glucose [Mass/Vol] 188 mg/dL High 70-99 [facility] Serum or plasma calcium jacqueline urement (mass/volume)Ordered By: Balwinder Alves on 03-15-2025 Calcium [Mass/Vol] 9.6 mg/dL 7.6-11.0 [facility] Serum or plasma urea nitroge n measurement (mass/volume)Ordered By: Balwinder Alves on 03-15-2025 Urea nitrogen [Mass/Vol] 11 mg/dL 4-19 [facility] Sodium levelOrdered By: Balwinder Alves on 03-15-2025 Sodium [Moles/Vol] 137 mmol/L 133-145 [facility] White blood cell (WBC) count Ordered By: Balwinder Alves on 03-15-2025 WBC (Bld) [#/Vol] 7.1 10*3/uL 4.4-11.0 [facility] Urine Cultureon 03-06-2025 [facility] #1 POSSIBLE E. COLI 0157. UNABLE TO CONFIRM, TESTING DISCONTINUED AT [facility]. Urine Culture Copy of report sent to Infection Control Printer [id number] 03/04/25 1000 ANDREA. Urine Culture RESULTS CALLED TO XAVIER Flowers 03/06/25 Nayana Patterson. REPORT READ BACK BY . Urine Culture Urine Culture ESBL Escherichia coli [place] Count 80,000-100,000 MARKER ESBL producing OrganismA MARKER [...] S Tobramycin Islt PREM <=1 S Normal [facility] Comment on above: Performed By: #### L 100.0500, L500.2500 #### [facility] [address] [place], [address] Bilirubin Test strip Ql (U)O rdered By: Balwinder Alves on 03-02-2025 Bilirubin Ql (U) Negative Negative [facility] Ketones Test strip Ql (U)Ord ered By: Balwinder Alves on 03-02-2025 Ketones Ql (U) Negative Negative [facility] Nitrite Test strip Ql (U)Ord ered By: Balwinder Alves on 03-02-2025 Nitrite Ql (U) Positive High Negative [facility] Protein Test strip Ql (U)Ord ered By: Balwinder Alves on 03-02-2025 Protein Ql (U) 30 mg/dl High Negative [facility] Urinalysis, Routine (Dipstic k)on 03-02-2025 BILIRUBIN URINE Negative Normal Negative [facility] Comment on above: Order Comment: 102.2 Performed By: #### L 100.0500, L500.2500 #### [facility] [address] [place], [address] Clarity (U) Sl. Cloudy Normal Clear [facility] Comment on above: Order Comment: 102.2 Performed By: #### L 100.0500, L500.2500 #### [facility] [address] [place], [address] Color (U) Yellow Normal Yellow [facility] Comment on above: Order Comment: 102.2 Performed By: #### L 100.0500, L500.2500 #### [facility] [address] [place], [address] GLUCOSE, UR Normal Normal Normal [facility] Comment on above: Order Comment: 102.2 Performed By: #### L 100.0500, L500.2500 #### [facility] [address] [place], [address] KETONE UR Negative Normal Negative [facility] Comment on above: Order Comment: 102.2 Performed By: #### L 100.0500, L500.2500 #### [facility] [address] [place], [address] LEUK ESTERASE 500 /ul Abnormal Negative [facility] Comment on above: Order Comment: 102.2 Performed By: #### L 100.0500, L500.2500 #### [facility] [address] [place], [address] Nitrite Ql (U) Positive Abnormal Negative [facility] Comment on above: Order Comment: 102.2 Performed By: #### L 100.0500, L500.2500 #### [facility] [address] [place], [address] OCCULT BLOOD-UR 50 /ul Abnormal Negative [facility] Comment on above: Order Comment: 102.2 Performed By: #### L 100.0500, L500.2500 #### [facility] [address] [place], [address] pH UR 6.0 Normal 5.0 - 8.0 [facility] Comment on above: Order Comment: 102.2 Performed By: #### L 100.0500, L500.2500 #### [facility] [address] [place], [address] PROT DIPSTX 30 mg/dl Abnormal Negative [facility] Comment on above: Order Comment: 102.2 Performed By: #### L 100.0500, L500.2500 #### [facility] [address] [place], [address] SP.GR. DIPSTX 1.010 Normal 1.002-1.030 [facility] Comment on above: Order Comment: 102.2 Performed By: #### L 100.0500, L500.2500 #### [facility] [address] [place], [address] UROBILI Normal Normal Normal [facility] Comment on above: Order Comment: 102.2 Performed By: #### L 100.0500, L500.2500 #### [facility] [address] [place], [address] Urine clarityOrdered By: Javed Alves on 03-02-2025 Clarity (U) Sl. Cloudy Clear [facility] Urine color determinationOrd ered By: Balwinder Alves on 03-02-2025 Color (U) Yellow Yellow [facility] Urine cultureOrdered By: Javed Alves on 03-02-2025 Bacteria identified Cx Nom (U) ESBL Escherichia coli Abnormal [facility] Urine glucose detectionOrder ed By: Balwinder Alevs on 03-02-2025 Glucose Ql (U) Normal mg/dl Normal [facility] Urine leukocyte esterase det ection by dipstickOrdered By: Balwinder Alves on 03-02-2025 Leukocyte esterase Test strip Ql (U) 500 /ul High Negative [facility] Urine pHOrdered By: Balwinder blackman on 03-02-2025 pH (U) 6.0 [pH] 5.0 - 8.0 [facility] Urine specific gravity measu rementOrdered By: Balwinder Alves on 03-02-2025 Specific gravity (U) [Rel density] 1.010 1.002-1.030 [facility] Urine urobilinogen measureme ntOrdered By: Balwinder Alves on 03-02-2025 Urobilinogen Ql (U) Normal mg/dl Normal [facility] Urine Cultureon 02-10-2025 [facility] Copy of report sent to Infection Control Printer [id number] 02/09/25 Jamshid MENDEZ. Urine Culture RESULTS CALLED TO AUSTEN GARCIA 02/09/25 08Amari Barrera. REPORT READ BACK SAME. Urine Culture Urine Culture Urine Culture ESBL Escherichia coli [place] Count >100,000 MARKER ESBL producing OrganismA MARKER [...] S Tobramycin Islt PREM <=1 S Normal [facility] Comment on above: Performed By: #### L 100.0500, L500.2500 #### [facility] [address] [place], [place], [id number] Bilirubin Test strip Ql (U)O rdered By: Balwinder Alves on 02-07-2025 Bilirubin Ql (U) Negative Negative [facility] Ketones Test strip Ql (U)Ord ered By: Balwinder Alves on 02-07-2025 Ketones Ql (U) Negative Negative [facility] Nitrite Test strip Ql (U)Ord ered By: Balwinder Alves on 02-07-2025 Nitrite Ql (U) Positive High Negative [facility] Protein Test strip Ql (U)Ord ered By: Balwinder Alves on 02-07-2025 Protein Ql (U) 15 mg/dl High Negative [facility] Urinalysis, Routine (Dipstic k)on 02-07-2025 Clarity (U) Clear Normal Clear [facility] Comment on above: Order Comment: 102.2 Performed By: #### L 100.0500, L500.2500 #### [facility] [address] [place], [address] Color (U) Yellow Normal Yellow [facility] Comment on above: Order Comment: 102.2 Performed By: #### L 100.0500, L500.2500 #### [facility] [address] [place], [address] BILIRUBIN URINE Negative Normal Negative [facility] Comment on above: Order Comment: 102.2 Performed By: #### L 100.0500, L500.2500 #### [facility] [address] [place], [address] GLUCOSE, UR Normal Normal Normal [facility] Comment on above: Order Comment: 102.2 Performed By: #### L 100.0500, L500.2500 #### [facility] [address] [place], [address] KETONE UR Negative Normal Negative [facility] Comment on above: Order Comment: 102.2 Performed By: #### L 100.0500, L500.2500 #### [facility] [address] [place], [address] LEUK ESTERASE 500 /ul Abnormal Negative [facility] Comment on above: Order Comment: 102.2 Performed By: #### L 100.0500, L500.2500 #### [facility] [address] [place], [address] Nitrite Ql (U) Positive Abnormal Negative [facility] Comment on above: Order Comment: 102.2 Performed By: #### L 100.0500, L500.2500 #### [facility] [address] [place], [address] OCCULT BLOOD-UR 25 /ul Abnormal Negative [facility] Comment on above: Order Comment: 102.2 Performed By: #### L 100.0500, L500.2500 #### [facility] [address] [place], [address] pH UR 6.5 Normal 5.0 - 8.0 [facility] Comment on above: Order Comment: 102.2 Performed By: #### L 100.0500, L500.2500 #### [facility] [address] [place], [address] PROT DIPSTX 15 mg/dl Abnormal Negative [facility] Comment on above: Order Comment: 102.2 Performed By: #### L 100.0500, L500.2500 #### [facility] [address] [place], [address] SP.GR. DIPSTX 1.005 Normal 1.002-1.030 [facility] Comment on above: Order Comment: 102.2 Performed By: #### L 100.0500, L500.2500 #### [facility] [address] [place], [address] UROBILI Normal Normal Normal [facility] Comment on above: Order Comment: 102.2 Performed By: #### L 100.0500, L500.2500 #### [facility] [address] [place], [address] Urine clarityOrdered By: Javed Alves on 02-07-2025 Clarity (U) Clear Clear [facility] Urine color determinationOrd ered By: Balwinder Alves on 02-07-2025 Color (U) Yellow Yellow [facility] Urine cultureOrdered By: Javed Alves on 02-07-2025 Bacteria identified Cx Nom (U) ESBL Escherichia coli Abnormal [facility] Urine glucose detectionOrder ed By: Balwinder Alves on 02-07-2025 Glucose Ql (U) Normal mg/dl Normal [facility] Urine leukocyte esterase det ection by dipstickOrdered By: Balwinder Alves on 02-07-2025 Leukocyte esterase Test strip Ql (U) 500 /ul High Negative [facility] Urine pHOrdered By: Balwinder blackman on 02-07-2025 pH (U) 6.5 [pH] 5.0 - 8.0 [facility] Urine specific gravity measu rementOrdered By: Balwinder Alves on 02-07-2025 Specific gravity (U) [Rel density] 1.005 1.002-1.030 [facility] Urine urobilinogen measureme ntOrdered By: Balwinder Alves on 02-07-2025 Urobilinogen Ql (U) Normal mg/dl Normal [facility] Urine Cultureon 01-27-2025 [facility] STRAIGHT CATH #1 Possible E.coli 0157. Confirmation testing unable to be performed, test discontinued at [facility]. Urine Culture RESULTS CALLED TO HEATHER Herrera 01/27/25 Nicole Patterson. REPORT READ BACK BY . Urine Culture Copy of report sent to Infection Control Printer [id number] 01/27/25 1041 ESSENCE. Urine Culture ESBL Escherichia coli [place] Count 80,000-100,000 MARKER ESBL producing OrganismA MARKER ESBL producing OrganismA [place] Count 50,000-80,000 Proteus mirabilis Amikacin Islt PREM [...] TMP SMX Islt PREM <=20 S Normal [facility] Comment on above: Performed By: #### L 100.0500, L500.2500 #### [facility] [address] [place], [address] Urinalysis, Completeon 01-24 BILIRUBIN URINE Negative Normal Negative [facility] Comment on above: Order Comment: 102.2 Performed By: #### L 100.0500, L500.2500 #### [facility] [address] [place], [address] Clarity (U) Sl. Cloudy Normal Clear [facility] Comment on above: Order Comment: 102.2 Performed By: #### L 100.0500, L500.2500 #### [facility] [address] [place], [address] Color (U) Yellow Normal Yellow [facility] Comment on above: Order Comment: 102.2 Performed By: #### L 100.0500, L500.2500 #### [facility] [address] [place], [address] GLUCOSE, UR Normal Normal Normal [facility] Comment on above: Order Comment: 102.2 Performed By: #### L 100.0500, L500.2500 #### [facility] [address] [place], [address] KETONE UR Negative Normal Negative [facility] Comment on above: Order Comment: 102.2 Performed By: #### L 100.0500, L500.2500 #### [facility] [address] [place], [address] LEUK ESTERASE 500 /ul Abnormal Negative [facility] Comment on above: Order Comment: 102.2 Performed By: #### L 100.0500, L500.2500 #### [facility] [address] [place], [address] Nitrite Ql (U) Positive Abnormal Negative [facility] Comment on above: Order Comment: 102.2 Performed By: #### L 100.0500, L500.2500 #### [facility] [address] [place], [address] OCCULT BLOOD-UR 50 /ul Abnormal Negative [facility] Comment on above: Order Comment: 102.2 Performed By: #### L 100.0500, L500.2500 #### [facility] [address] [place], [address] pH UR 6.5 Normal 5.0 - 8.0 [facility] Comment on above: Order Comment: 102.2 Performed By: #### L 100.0500, L500.2500 #### [facility] [address] [place], [address] PROT DIPSTX 15 mg/dl Abnormal Negative [facility] Comment on above: Order Comment: 102.2 Performed By: #### L 100.0500, L500.2500 #### [facility] [address] [place], [address] SP.GR. DIPSTX 1.010 Normal 1.002-1.030 [facility] Comment on above: Order Comment: 102.2 Performed By: #### L 100.0500, L500.2500 #### [facility] [address] [place], [address] UROBILI Normal Normal Normal [facility] Comment on above: Order Comment: 102.2 Performed By: #### L 100.0500, L500.2500 #### [facility] [address] [place], [address] Bilirubin Test strip Ql (U)O rdered By: Balwinder Alves on 01-23-2025 Bilirubin Ql (U) Negative Negative [facility] Epithelial cells.squamous LM Ql (Urine sed)Ordered By: Balwinder Alves on 01-23-2025 Epithelial cells.squamous LM.HPF (Urine sed) [#/Area] 0 /[HPF] 5-10 [facility] Glucose Ql (U)Ordered By: Jen Alves on 01-23-2025 Urine Glucose (UA) Normal mg/dl Normal [facility] Ketones Test strip Ql (U)Ord ered By: Balwinder Alves on 01-23-2025 Ketones Ql (U) Negative Negative [facility] Microscopic analysis of urin e for red blood cells (RBC)Ordered By: Balwinder Alves on 01-23-2025 Microscopic analysis of urine for red blood cells (RBC) 0-5 SEEN /hpf 0-5 [facility] Urine RBC 0-5 SEEN /hpf 0-5 [facility] Mucus LM Ql (Urine sed)Order ed By: Balwinder Alves on 01-23-2025 Mucus Ql (Urine sed) 0 SEEN /hpf [facility] Nitrite Test strip Ql (U)Ord ered By: Balwinder Alves on 01-23-2025 Nitrite Ql (U) Positive High Negative [facility] Protein Test strip Ql (U)Ord ered By: Balwinder Alves on 01-23-2025 Protein Ql (U) 15 mg/dl High Negative [facility] Squamous epithelial cells de tection in urine sediment by light microscopyOrdered By: Balwinder Alves on 01-23-2025 Epithelial cells.squamous LM Ql (Urine sed) 0-5 SEEN /hpf 5-10 [facility] Urine blood detectionOrdered By: Balwinder Alves on 01-23-2025 Urine Occult Blood 50 /ul High Negative [facility] Urine clarityOrdered By: Javed Alves on 01-23-2025 Clarity (U) Sl. Cloudy Clear [facility] Urine color determinationOrd ered By: Balwinder Alves on 01-23-2025 Color (U) Yellow Yellow [facility] Urine cultureOrdered By: Javed Alves on 01-23-2025 Bacteria identified Cx Nom (U) ESBL Escherichia coli Abnormal [facility] Bacteria identified Cx Nom (U) Proteus mirabilis Abnormal [facility] Urine glucose detectionOrder ed By: Balwinder Alves on 01-23-2025 Glucose Ql (U) Normal mg/dl Normal [facility] Urine leukocyte esterase det ection by dipstickOrdered By: Balwinder Alves on 01-23-2025 Leukocyte esterase Test strip Ql (U) 500 /ul High Negative [facility] Urine pHOrdered By: Balwinder blackman on 01-23-2025 pH (U) 6.5 [pH] 5.0 - 8.0 [facility] Urine sediment bacteria coun t by microscopy (number/high power field)Ordered By: Balwinder Alves on 01-23-2025 Bacteria LM.HPF (Urine sed) [#/Area] 2 /[HPF] None Seen [facility] Urine specific gravity measu rementOrdered By: Balwinder Alves on 01-23-2025 Specific gravity (U) [Rel density] 1.010 1.002-1.030 [facility] Urine urobilinogen measureme ntOrdered By: Balwinder Alves on 01-23-2025 Urobilinogen Ql (U) Normal mg/dl Normal [facility] Urobilinogen Ql (U)Ordered B y: Balwinder Alves on 01-23-2025 Urine Urobilinogen Normal mg/dl Normal [facility] White blood cell countOrdere d By: Balwinder Alves on 01-23-2025 Urine WBC 5-10 SEEN /hpf 0-5 [facility] White blood cell count 5-10 SEEN /hpf 0-5 [facility] Urine Cultureon 01-13-2025 URC #1 POSSIBLE ECOLI 0157. Unable to send to [facility] Laboratory for confirmation testing due to new [facility] policies regarding serotyping and virulence profiling. Urine Culture Copy of report sent to Infection Control Printer [id number] 01/11/25 [id number] ASNIPES. ESBL Escherichia coli [place] Count 50,000-80,000 MARKER ESBL producing OrganismA MARKER ESBL producing OrganismA [place] Count 50,000-80,000 Escherichia coli [place] Count 50,000-80,000 ESBL Escherichia coli: REACTION Proteus [...] TMP SMX Islt PREM <=20 S Normal [facility] Comment on above: Performed By: #### L 500.2500, L500.3400, L100.0500 #### [facility] Laboratory [address] [place], [address] Bilirubin Test strip Ql (U)O rdered By: Balwinder Alves on 01-09-2025 Bilirubin Ql (U) Negative Negative [facility] Glucose Ql (U)Ordered By: Jen Alves on 01-09-2025 Urine Glucose (UA) Normal mg/dl Normal [facility] Ketones Test strip Ql (U)Ord ered By: Balwinder Alves on 01-09-2025 Ketones Ql (U) Negative Negative [facility] Nitrite Test strip Ql (U)Ord ered By: Balwinder Alves on 01-09-2025 Nitrite Ql (U) Positive High Negative [facility] Protein Test strip Ql (U)Ord ered By: Balwinder Alves on 01-09-2025 Protein Ql (U) 30 mg/dl High Negative [facility] Urinalysis, Routine (Dipstic k)on 01-09-2025 BILIRUBIN URINE Negative Normal Negative [facility] Comment on above: Order Comment: 102.2 Performed By: #### L 500.2500, L500.3400, L100.0500 #### [facility] [address] [place], [address] Clarity (U) Cloudy Normal Clear [facility] Comment on above: Order Comment: 102.2 Performed By: #### L 500.2500, L500.3400, L100.0500 #### [facility] [address] [place], [address] Color (U) Yellow Normal Yellow [facility] Comment on above: Order Comment: 102.2 Performed By: #### L 500.2500, L500.3400, L100.0500 #### [facility] [address] [place], [address] GLUCOSE, UR Normal Normal Normal [facility] Comment on above: Order Comment: 102.2 Performed By: #### L 500.2500, L500.3400, L100.0500 #### [facility] [address] [place], [address] KETONE UR Negative Normal Negative [facility] Comment on above: Order Comment: 102.2 Performed By: #### L 500.2500, L500.3400, L100.0500 #### [facility] [address] [place], [address] LEUK ESTERASE 500 /ul Abnormal Negative [facility] Comment on above: Order Comment: 102.2 Performed By: #### L 500.2500, L500.3400, L100.0500 #### [facility] [address] [place], [address] Nitrite Ql (U) Positive Abnormal Negative [facility] Comment on above: Order Comment: 102.2 Performed By: #### L 500.2500, L500.3400, L100.0500 #### [facility] [address] [place], [address] OCCULT BLOOD-UR 150 /ul Abnormal Negative [facility] Comment on above: Order Comment: 102.2 Performed By: #### L 500.2500, L500.3400, L100.0500 #### [facility] [address] [place], [address] pH UR 6.5 Normal 5.0 - 8.0 [facility] Comment on above: Order Comment: 102.2 Performed By: #### L 500.2500, L500.3400, L100.0500 #### [facility] [address] [place], [address] PROT DIPSTX 30 mg/dl Abnormal Negative [facility] Comment on above: Order Comment: 102.2 Performed By: #### L 500.2500, L500.3400, L100.0500 #### [facility] [address] [place], [address] SP.GR. DIPSTX 1.010 Normal 1.002-1.030 [facility] Comment on above: Order Comment: 102.2 Performed By: #### L 500.2500, L500.3400, L100.0500 #### [facility] [address] [place], [place], [id number] UROBILI Normal Normal Normal [facility] Comment on above: Order Comment: 102.2 Performed By: #### L 500.2500, L500.3400, L100.0500 #### [facility] [address] [place], [place], [id number] Urine blood detectionOrdered By: Balwinder Alves on 01-09-2025 Urine Occult Blood 150 /ul High Negative [facility] Urine clarityOrdered By: Javed Alves on 01-09-2025 Clarity (U) Cloudy Clear [facility] Urine color determinationOrd ered By: Balwinder Alves on 01-09-2025 Color (U) Yellow Yellow [facility] Urine cultureOrdered By: Javed Alves on 01-09-2025 Bacteria identified Cx Nom (U) ESBL Escherichia coli Abnormal [facility] Bacteria identified Cx Nom (U) Escherichia coli Abnormal [facility] Bacteria identified Cx Nom (U) Proteus mirabilis Abnormal [facility] Urine glucose detectionOrder ed By: Balwinder Alves on 01-09-2025 Glucose Ql (U) Normal mg/dl Normal [facility] Urine leukocyte esterase det ection by dipstickOrdered By: Balwinder Alves on 01-09-2025 Leukocyte esterase Test strip Ql (U) 500 /ul High Negative [facility] Urine pHOrdered By: Balwinder blackman on 01-09-2025 pH (U) 6.5 [pH] 5.0 - 8.0 [facility] Urine specific gravity measu rementOrdered By: Balwinder Alves on 01-09-2025 Specific gravity (U) [Rel density] 1.010 1.002-1.030 [facility] Urine urobilinogen measureme ntOrdered By: Balwinder Alves on 01-09-2025 Urobilinogen Ql (U) Normal mg/dl Normal [facility] Urobilinogen Ql (U)Ordered B y: Balwinder Alves on 01-09-2025 Urine Urobilinogen Normal mg/dl Normal [facility] Urine Cultureon 01-07-2025 URC #2 Possible E.coli 0157. Unable to send to [facility] Laboratory for confirmation testing due to new [facility] policies regarding serotyping and virulence profiling. Urine Culture Copy of report sent to Infection Control Printer [id number] 01/06/25 131Shannan MENDEZ. Urine Culture RESULTS CALLED TO TRISH BOYCE 01/06/25 1321 Alesia Barrera. REPORT READ BACK . Proteus mirabilis [place] Count 50,000-80,000 ESBL Escherichia coli ESBL Escherichia [...] <=0.25 Tobramycin Islt PREM <=1 S Normal [facility] Comment on above: Performed By: #### M 100.2200, L4.2010 #### [facility] Laboratory [address] [place], [address] Urinalysis, Routine (Dipstic k)on 01-03-2025 BILIRUBIN URINE Negative Normal Negative [facility] Comment on above: Order Comment: CLEAN CATCH Performed By: #### M 100.2200, L400.2010 #### [facility] [address] [place], [address] Clarity (U) Sl. Cloudy Normal Clear [facility] Comment on above: Order Comment: CLEAN CATCH Performed By: #### M 100.2199, L4 #### [facility] [address] [place], [address] Color (U) Yellow Normal Yellow [facility] Comment on above: Order Comment: CLEAN CATCH Performed By: #### M 100.2199, L4 #### [facility] [address] [place], [address] GLUCOSE, UR Normal Normal Normal [facility] Comment on above: Order Comment: CLEAN CATCH Performed By: #### M , L4 #### [facility] [address] [place], [address] KETONE UR Negative Normal Negative [facility] Comment on above: Order Comment: CLEAN CATCH Performed By: #### M , L4 #### [facility] [address] [place], [address] LEUK ESTERASE 500 /ul Abnormal Negative [facility] Comment on above: Order Comment: CLEAN CATCH Performed By: #### M , L4 #### [facility] [address] [place], [address] Nitrite Ql (U) Positive Abnormal Negative [facility] Comment on above: Order Comment: CLEAN CATCH Performed By: #### M 100.2199, L4 #### [facility] [address] [place], [address] OCCULT BLOOD-UR 150 /ul Abnormal Negative [facility] Comment on above: Order Comment: CLEAN CATCH Performed By: #### M , L4 #### [facility] [address] [place], [address] pH UR 6.5 Normal 5.0 - 8.0 [facility] Comment on above: Order Comment: CLEAN CATCH Performed By: #### M 100.2200, L400.2010 #### [facility] [address] [place], [address] PROT DIPSTX 30 mg/dl Abnormal Negative [facility] Comment on above: Order Comment: CLEAN CATCH Performed By: #### M 100.2200, L400.2010 #### [facility] [address] [place], [address] SP.GR. DIPSTX 1.010 Normal 1.002-1.030 [facility] Comment on above: Order Comment: CLEAN CATCH Performed By: #### M 100.2200, L400.2010 #### [facility] [address] [place], [address] UROBILI Normal Normal Normal [facility] Comment on above: Order Comment: CLEAN CATCH Performed By: #### M 100.2200, L400.2010 #### [facility] [address] [place], [address] Bilirubin Test strip Ql (U)O rdered By: Balwinder Alves on 01-02-2025 Bilirubin Ql (U) Negative Negative [facility] Glucose Ql (U)Ordered By: Jen Alves on 01-02-2025 Urine Glucose (UA) Normal mg/dl Normal [facility] Ketones Test strip Ql (U)Ord ered By: Balwinder Alves on 01-02-2025 Ketones Ql (U) Negative Negative [facility] Nitrite Test strip Ql (U)Ord ered By: Balwinder Alves on 01-02-2025 Nitrite Ql (U) Positive High Negative [facility] Protein Test strip Ql (U)Ord ered By: Balwinder Alves on 01-02-2025 Protein Ql (U) 30 mg/dl High Negative [facility] Urine blood detectionOrdered By: Balwinder Alves on 01-02-2025 Urine Occult Blood 150 /ul High Negative [facility] Urine clarityOrdered By: Javed Alves on 01-02-2025 Clarity (U) Sl. Cloudy Clear [facility] Urine color determinationOrd ered By: Balwinder Alves on 01-02-2025 Color (U) Yellow Yellow [facility] Urine cultureOrdered By: Javed Alves on 01-02-2025 Bacteria identified Cx Nom (U) Proteus mirabilis Abnormal [facility] Bacteria identified Cx Nom (U) ESBL Escherichia coli Abnormal [facility] Urine glucose detectionOrder ed By: Balwinder Alves on 01-02-2025 Glucose Ql (U) Normal mg/dl Normal [facility] Urine leukocyte esterase det ection by dipstickOrdered By: Balwinder Alves on 01-02-2025 Leukocyte esterase Test strip Ql (U) 500 /ul High Negative [facility] Urine pHOrdered By: Balwinder blackman on 01-02-2025 pH (U) 6.5 [pH] 5.0 - 8.0 [facility] Urine specific gravity measu rementOrdered By: Balwinder Alves on 01-02-2025 Specific gravity (U) [Rel density] 1.010 1.002-1.030 [facility] Urine urobilinogen measureme ntOrdered By: Balwinder Alves on 01-02-2025 Urobilinogen Ql (U) Normal mg/dl Normal [facility] Urobilinogen Ql (U)Ordered B y: Balwinder Alves on 01-02-2025 Urine Urobilinogen Normal mg/dl Normal [facility] Absolute lymphocyte countOrd ered By: Balwinder Alves on 12-26-2024 Lymphocytes Auto (Unsp spec) [#/Vol] 1.77 10*3/uL 0.83-4.51 [facility] Absolute neutrophil countOrd ered By: Balwinder Alves on 12-26-2024 Neutrophils (Bld) [#/Vol] 4.6 10*3/uL 2.0-7.7 [facility] Anion gap in Serum or Plasma Ordered By: Balwinder Alves on 12-26-2024 Anion gap [Moles/Vol] 9 mmol/L 5-15 [facility] Automated lymphocyte count a s percentage of total leukocytesOrdered By: Balwinder Alves on 12-26-2024 Lymphocytes/100 WBC Auto (Unsp spec) 24.8 % 19-41 [facility] BUN/creatinine ratioOrdered By: Balwinder Alves on 12-26-2024 Urea nitrogen/Creatinine [Mass ratio] 12.2 mg/mg - [facility] Basic Metabolic Profile (BMP )on 12-26-2024 BUN/CRE 12.2 RATIO Normal 07-24 [facility] Comment on above: Order Comment: 102-2 Performed By: #### L 500.2500, L100.0100 #### [facility] [address] [place], [address] Calcium [Mass/Vol] 9.1 mg/dL Normal 7.6-11.0 [facility] Comment on above: Order Comment: 102-2 Performed By: #### L 500.2500, L100.0100 #### [facility] [address] [place], [address] Chloride [Moles/Vol] 99 mmol/L Normal 98-108 [facility] Comment on above: Order Comment: 102-2 Performed By: #### L 500.2500, L100.0100 #### [facility] [address] [place], [address] CO2 [Moles/Vol] 29.0 mmol/L Normal 21.0-32.0 [facility] Comment on above: Order Comment: 102-2 Performed By: #### L 500.2500, L100.0100 #### [facility] [address] [place], [address] Creatinine [Mass/Vol] 0.67 mg/dL Low 0.70-1.20 [facility] Comment on above: Order Comment: 102-2 Performed By: #### L 500.2500, L100.0100 #### [facility] [address] [place], [address] GAP 9 Normal 5-15 [facility] Comment on above: Order Comment: 102-2 Performed By: #### L 500.2500, L100.0100 #### [facility] [address] [place], [address] GFR/1.73 sq M.predicted among non-blacks MDRD (S/P/Bld) [Vol rate/Area] 88 mL/min/{1.73_m2} Normal >60 [facility] Comment on above: Order Comment: 102-2 Result Comment: mL/m in/1.73m2 CKD-EPI Creatinine Equation (2020) Performed By: #### L 500.2500, L100.0100 #### [facility] [address] [place], [address] Glucose [Mass/Vol] 215 mg/dL High 70-99 [facility] Comment on above: Order Comment: 102-2 Performed By: #### L 500.2500, L100.0100 #### [facility] [address] [place], [address] Potassium [Moles/Vol] 4.6 mmol/L Normal 3.3-5.1 [facility] Comment on above: Order Comment: 102-2 Performed By: #### L 500.2500, L100.0100 #### [facility] [address] [place], [address] Sodium [Moles/Vol] 137 mmol/L Normal 133-145 [facility] Comment on above: Order Comment: 102-2 Performed By: #### L 500.2500, L100.0100 #### [facility] [address] [place], [address] Urea nitrogen [Mass/Vol] 8 mg/dL Normal 4-19 [facility] Comment on above: Order Comment: 102-2 Performed By: #### L 500.2500, L100.0100 #### [facility] [address] [place], [address] Basophil percentageOrdered B y: Balwinder Alves on 12-26-2024 Basophils/100 WBC (Bld) 0.6 % 0-1 [facility] CBC W/Diff, Automatedon 03-2 Absolute Lymph 1.77 X10 3/uL Normal 0.83-4.51 [facility] Comment on above: Order Comment: 102-2 Performed By: #### L 500.2500, L100.0100 #### [facility] [address] [place], [address] Absolute Neut 4.6 X10 3/uL Normal 2.0-7.7 [facility] Comment on above: Order Comment: 102-2 Performed By: #### L 500.2500, L100.0100 #### [facility] [address] [place], [address] Basophils/100 WBC (Bld) 0.6 % Normal 0-1 [facility] Comment on above: Order Comment: 102-2 Performed By: #### L 500.2500, L100.0100 #### [facility] [address] [place], [address] Eosinophils/100 WBC (Bld) 2.9 % Normal 0-5 [facility] Comment on above: Order Comment: 102-2 Performed By: #### L 500.2500, L100.0100 #### [facility] [address] [place], [address] Erythrocyte distribution width (RBC) [Ratio] 13.9 % Normal 11.6-14.6 [facility] Comment on above: Order Comment: 102-2 Performed By: #### L 500.2500, L100.0100 #### [facility] [address] [place], [address] Hematocrit (Bld) [Volume fraction] 35.6 % Low 37-47 [facility] Comment on above: Order Comment: 102-2 Performed By: #### L 500.2500, L100.0100 #### [facility] [address] [place], [address] Hemoglobin (Bld) [Mass/Vol] 10.9 g/dL Low 12.0-15.0 [facility] Comment on above: Order Comment: 102-2 Performed By: #### L 500.2500, L100.0100 #### [facility] [address] [place], [address] IG% 0.700 Normal 0.0-0.9 [facility] Comment on above: Order Comment: 102-2 Result Comment: IG% - Immature Granulocytes (promyelocytes, myelocytes and metamyelocytes) > 1% indicates that a LEFT SHIFT is Present. Performed By: #### L 500.2500, L100.0100 #### [facility] [address] [place], [address] Lymphocytes/100 WBC (Bld) 24.8 % Normal 19-41 [facility] Comment on above: Order Comment: 102-2 Performed By: #### L 500.2500, L100.0100 #### [facility] [address] [place], [address] MCH (RBC) [Entitic mass] 28.8 pg Normal 27.0-32.0 [facility] Comment on above: Order Comment: 102-2 Performed By: #### L 500.2500, L100.0100 #### [facility] [address] [place], [address] MCHC (RBC) [Mass/Vol] 30.6 g/dL Low 32-36 [facility] Comment on above: Order Comment: 102-2 Performed By: #### L 500.2500, L100.0100 #### [facility] [address] [place], [address] MCV (RBC) [Entitic vol] 93.9 fL Normal 81-99 [facility] Comment on above: Order Comment: 102-2 Performed By: #### L 500.2500, L100.0100 #### [facility] [address] [place], [address] Monocytes/100 WBC (Bld) 6.3 % Normal 0-10 [facility] Comment on above: Order Comment: 102-2 Performed By: #### L 500.2500, L100.0100 #### [facility] [address] [place], [address] Neutrophils/100 WBC (Bld) 64.7 % Normal 47-70 [facility] Comment on above: Order Comment: 102-2 Performed By: #### L 500.2500, L100.0100 #### [facility] [address] [place], [address] Nucleated RBC (Bld) [#/Vol] 0 10*3/uL Normal 0-5 [facility] Comment on above: Order Comment: 102-2 Performed By: #### L 500.2500, L100.0100 #### [facility] [address] [place], [address] Platelet mean volume (Bld) [Entitic vol] 8.6 fL Normal 6.2-12.0 [facility] Comment on above: Order Comment: 102-2 Performed By: #### L 500.2500, L100.0100 #### [facility] [address] [place], [address] Platelets (Bld) [#/Vol] 221 10*3/uL Normal 150-450 [facility] Comment on above: Order Comment: 102-2 Performed By: #### L 500.2500, L100.0100 #### [facility] [address] [place], [address] RBC (Bld) [#/Vol] 3.79 10*6/uL Low 4.2-5.4 [facility] Comment on above: Order Comment: 102-2 Performed By: #### L 500.2500, L100.0100 #### [facility] [address] [place], [address] RDW SD 47.6 fl High 35.1-43.9 [facility] Comment on above: Order Comment: 102-2 Performed By: #### L 500.2500, L100.0100 #### [facility] [address] [place], [address] WBC (Bld) [#/Vol] 7.1 10*3/uL Normal 4.4-11.0 [facility] Comment on above: Order Comment: 102-2 Performed By: #### L 500.2500, L100.0100 #### [facility] [address] [place], [address] Carbon dioxide, total [Moles /volume] in Central venous bloodOrdered By: Balwinder Alves on 12-26-2024 CO2 [Moles/Vol] 29.0 mmol/L 21.0-32.0 [facility] Chloride assayOrdered By: Jen Alves on 12-26-2024 Chloride [Moles/Vol] 99 mmol/L 98-108 [facility] Eosinophil percentageOrdered By: Balwinder Alves on 12-26-2024 Eosinophils/100 WBC (Bld) 2.9 % 0-5 [facility] Erythrocyte distribution wid th (RBC) [Ratio]Ordered By: Balwinder Alves on 12-26-2024 Erythrocyte distribution width (RBC) [Entitic vol] 47.6 fL High 35.1-43.9 [facility] Erythrocyte distribution wid th ratioOrdered By: Balwinder Alves on 12-26-2024 Erythrocyte distribution width (RBC) [Ratio] 13.9 % 11.6-14.6 [facility] Erythrocyte distribution wid th standard deviationOrdered By: Balwinder Alves on 12-26-2024 Erythrocyte distribution width (RBC) [Ratio] 47.6 fl High 35.1-43.9 [facility] GFR/1.73 sq M.predicted [place] non-blacks MDRD (S/P/Bld) [Vol rate/Area]Ordered By: Balwinder Alves on 12-26-2024 Estimated GFR (MDRD) Non-Af Amer 88 >60 [facility] Comment on above: mL/min/1.73m2 CKD-EP I Creatinine Equation (2020) Glomerular filtration rate ( GFR) estimation/1.73 sq m using serum, plasma, or whole bOrdered By: Balwinder Alves on 12-26-2024 GFR/1.73 sq M.predicted among non-blacks MDRD (S/P/Bld) [Vol rate/Area] 88 mL/min/{1.73_m2} >60 [facility] Comment on above: mL/min/1.73m2 CKD-EP I Creatinine Equation (2020) Hematocrit Auto (Bld) [Volum e fraction]Ordered By: Balwinder Alves on 12-26-2024 Hematocrit (Bld) [Volume fraction] 35.6 % Low 37-47 [facility] Hemoglobin measurementOrdere d By: Balwinder Alves on 12-26-2024 Hemoglobin (Bld) [Mass/Vol] 10.9 g/dL Low 12.0-15.0 [facility] Immature granulocytes/100 WB C Auto (Bld)Ordered By: Balwinder Alves on 12-26-2024 Immature granulocytes/100 WBC (Bld) 0.700 % 0.0-0.9 [facility] Comment on above: IG% - Immature Granu locytes (promyelocytes, myelocytes and metamyelocytes) > 1% indicates that a LEFT SHIFT is Present. Lymphocytes Auto (Unsp spec) [#/Vol]Ordered By: Balwinder Alves on 12-26-2024 Lymphocytes (Bld) [#/Vol] 1.77 10*3/uL 0.83-4.51 [facility] Lymphocytes/100 WBC Auto (Un sp spec)Ordered By: Balwinder Alves on 12-26-2024 Lymphocytes/100 WBC (Bld) 24.8 % 19-41 [facility] MCV (mean corpuscular volume ) determinationOrdered By: Balwinder Alves on 12-26-2024 MCV (RBC) [Entitic vol] 93.9 fL 81-99 [facility] Mean corpuscular hemoglobin (MCH) determinationOrdered By: Balwinder Alves on 12-26-2024 MCH (RBC) [Entitic mass] 28.8 pg 27.0-32.0 [facility] Mean corpuscular hemoglobin concentration (MCHC) determinationOrdered By: Balwinder Alves on 12-26-2024 MCHC (RBC) [Mass/Vol] 30.6 g/dL Low 32-36 [facility] Mean platelet volume determi nationOrdered By: Balwinder Alves on 12-26-2024 Platelet mean volume (Bld) [Entitic vol] 8.6 fL 6.2-12.0 [facility] Monocyte percentageOrdered B y: Balwinder Alves on 12-26-2024 Monocytes/100 WBC (Bld) 6.3 % 0-10 [facility] Neutrophil percentageOrdered By: Balwinder Alves on 12-26-2024 Neutrophils/100 WBC (Bld) 64.7 % 47-70 [facility] Nucleated red blood cell per centageOrdered By: Balwinder Alves on 12-26-2024 Nucleated RBC/100 WBC (Bld) [Ratio] 0 % 0-5 [facility] Platelet countOrdered By: Jen Alves on 12-26-2024 Platelets (Bld) [#/Vol] 221 10*3/uL 150-450 [facility] Potassium (Unsp spec) [Mass/ Vol]Ordered By: Balwinder Alves on 12-26-2024 Potassium [Moles/Vol] 4.6 mmol/L 3.3-5.1 [facility] Potassium measurement (mass/ volume)Ordered By: Balwinder Alves on 12-26-2024 Potassium (Unsp spec) [Mass/Vol] 4.6 mmol/L 3.3-5.1 [facility] RBC Auto (Bld) [#/Vol]Ordere d By: Balwinder Alves on 12-26-2024 RBC (Bld) [#/Vol] 3.79 10*6/uL Low 4.2-5.4 [facility] Serum creatinine measurement (mass/volume)Ordered By: Balwinder Alves on 12-26-2024 Creatinine [Mass/Vol] 0.67 mg/dL Low 0.70-1.20 [facility] Serum glucose measurement (m ass/volume)Ordered By: Balwinder Alves on 12-26-2024 Glucose [Mass/Vol] 215 mg/dL High 70-99 [facility] Serum or plasma calcium jacqueline urement (mass/volume)Ordered By: Balwinder Alves on 12-26-2024 Calcium [Mass/Vol] 9.1 mg/dL 7.6-11.0 [facility] Serum or plasma urea nitroge n measurement (mass/volume)Ordered By: Balwinder Alves on 12-26-2024 Urea nitrogen [Mass/Vol] 8 mg/dL 4- [facility] Sodium levelOrdered By: Balwinder Alves on 12-26-2024 Sodium [Moles/Vol] 137 mmol/L 133-145 [facility] White blood cell (WBC) count Ordered By: Balwinder Alves on 12-26-2024 WBC (Bld) [#/Vol] 7.1 10*3/uL 4.4-11.0 [facility] Anion gap in Serum or Plasma Ordered By: Balwinder Alves on 12-16-2024 Anion gap [Moles/Vol] 12 mmol/L - [facility] BUN/creatinine ratioOrdered By: Balwinder Alves on 12-16-2024 Urea nitrogen/Creatinine [Mass ratio] 12.7 mg/mg - [facility] Basic Metabolic Profile (BMP )on 12-16-2024 BUN/CRE 12.7 RATIO Normal 07-24 [facility] Comment on above: Performed By: #### M .2199, L4 #### [facility] [address] [place], [address] Calcium [Mass/Vol] 9.5 mg/dL Normal 7.6-11.0 [facility] Comment on above: Performed By: #### M .2199, L4 #### [facility] [address] [place], [address] Chloride [Moles/Vol] 98 mmol/L Normal 98-108 [facility] Comment on above: Performed By: #### M 100.2199, L4 #### [facility] [address] [place], [address] CO2 [Moles/Vol] 26.7 mmol/L Normal 21.0-32.0 [facility] Comment on above: Performed By: #### M 100.2199, L4 #### [facility] [address] [place], [address] Creatinine [Mass/Vol] 0.67 mg/dL Low 0.70-1.20 [facility] Comment on above: Performed By: #### M , #### [facility] [address] [place], [address] GAP 12 Normal 5-15 [facility] Comment on above: Performed By: #### M , #### [facility] [address] [place], [address] GFR/1.73 sq M.predicted among non-blacks MDRD (S/P/Bld) [Vol rate/Area] 88 mL/min/{1.73_m2} Normal >60 [facility] Comment on above: Result Comment: mL/m in/1.73m2 CKD-EPI Creatinine Equation (2020) Performed By: #### M , #### [facility] [address] [place], [address] Glucose [Mass/Vol] 201 mg/dL High 70-99 [facility] Comment on above: Performed By: #### M , #### [facility] [address] [place], [address] Potassium [Moles/Vol] 4.6 mmol/L Normal 3.3-5.1 [facility] Comment on above: Performed By: #### M , L4 #### [facility] [address] [place], [address] Sodium [Moles/Vol] 137 mmol/L Normal 133-145 [facility] Comment on above: Performed By: #### M , L4 #### [facility] [address] [place], [address] Urea nitrogen [Mass/Vol] 8 mg/dL Normal 4-19 [facility] Comment on above: Performed By: #### M 100.2200, L400.2010 #### [facility] [address] [place], [address] CBC-Complete Blood Cnt No Di ffon 12-16-2024 Erythrocyte distribution width (RBC) [Ratio] 13.8 % Normal 11.6-14.6 [facility] Comment on above: Performed By: #### L 500.2500, L501.9985, L500.4100, L100.0500, L506.1001 #### [facility] [address] [place], [address] Hematocrit (Bld) [Volume fraction] 36.2 % Low 37-47 [facility] Comment on above: Performed By: #### L 500.2500, L501.9985, L500.4100, L100.0500, L506.1001 #### [facility] [address] [place], [address] Hemoglobin (Bld) [Mass/Vol] 11.0 g/dL Low 12.0-15.0 [facility] Comment on above: Performed By: #### L 500.2500, L501.9985, L500.4100, L100.0500, L506.1001 #### [facility] [address] [place], [address] MCH (RBC) [Entitic mass] 28.2 pg Normal 27.0-32.0 [facility] Comment on above: Performed By: #### L 500.2500, L501.9985, L500.4100, L100.0500, L506.1001 #### [facility] [address] [place], [address] MCHC (RBC) [Mass/Vol] 30.4 g/dL Low 32-36 [facility] Comment on above: Performed By: #### L 500.2500, L501.9985, L500.4100, L100.0500, L506.1001 #### [facility] [address] [place], [address] MCV (RBC) [Entitic vol] 92.8 fL Normal 81-99 [facility] Comment on above: Performed By: #### L 500.2500, L501.9985, L500.4100, L100.0500, L506.1001 #### [facility] [address] [place], [address] Platelet mean volume (Bld) [Entitic vol] 8.4 fL Normal 6.2-12.0 [facility] Comment on above: Performed By: #### L 500.2500, L501.9985, L500.4100, L100.0500, L506.1001 #### [facility] [address] [place], [address] Platelets (Bld) [#/Vol] 231 10*3/uL Normal 150-450 [facility] Comment on above: Performed By: #### L 500.2500, L501.9985, L500.4100, L100.0500, L506.1001 #### [facility] [address] [place], [address] RBC (Bld) [#/Vol] 3.90 10*6/uL Low 4.2-5.4 [facility] Comment on above: Performed By: #### L 500.2500, L501.9985, L500.4100, L100.0500, L506.1001 #### [facility] [address] [place], [address] RDW SD 47.0 fl High 35.1-43.9 [facility] Comment on above: Performed By: #### L 500.2500, L501.9985, L500.4100, L100.0500, L506.1001 #### [facility] [address] [place], [address] WBC (Bld) [#/Vol] 7.8 10*3/uL Normal 4.4-11.0 [facility] Comment on above: Performed By: #### L 500.2500, L501.9985, L500.4100, L100.0500, L506.1001 #### [facility] [address] [facility] [place], [address] Calculated very low density lipoprotein (VLDL) cholesterol measurementOrdered By: Balwinder Alves on 12-16-2024 Calculated very low density lipoprotein (VLDL) cholesterol measurement 32 mg/dL 5-40 [facility] VLDL Cholesterol 32 mg/dL 5-40 [facility] Carbon dioxide, total [Moles /volume] in Central venous bloodOrdered By: Balwinder Alves on 12-16-2024 CO2 [Moles/Vol] 26.7 mmol/L 21.0-32.0 [facility] Chloride assayOrdered By: Jen Alves on 12-16-2024 Chloride [Moles/Vol] 98 mmol/L 98-108 [facility] Erythrocyte distribution wid th (RBC) [Ratio]Ordered By: Balwinder Alves on 12-16-2024 Erythrocyte distribution width (RBC) [Entitic vol] 47.0 fL High 35.1-43.9 [facility] Erythrocyte distribution wid th ratioOrdered By: Balwinder Alves on 12-16-2024 Erythrocyte distribution width (RBC) [Ratio] 13.8 % 11.6-14.6 [facility] Erythrocyte distribution wid th standard deviationOrdered By: Balwinder Alves on 12-16-2024 Erythrocyte distribution width (RBC) [Ratio] 47.0 fl High 35.1-43.9 [facility] GFR/1.73 sq M.predicted ph[place] non-blacks MDRD (S/P/Bld) [Vol rate/Area]Ordered By: Balwinder Alves on 12-16-2024 Estimated GFR (MDRD) Non-Af Amer 88 >60 [facility] Comment on above: mL/min/1.73m2 CKD-EP I Creatinine Equation (2020) Glomerular filtration rate ( GFR) estimation/1.73 sq m using serum, plasma, or whole bOrdered By: Balwinder Alves on 12-16-2024 GFR/1.73 sq M.predicted among non-blacks MDRD (S/P/Bld) [Vol rate/Area] 88 mL/min/{1.73_m2} >60 [facility] Comment on above: mL/min/1.73m2 CKD-EP I Creatinine Equation (2020) Hematocrit Auto (Bld) [Volum e fraction]Ordered By: Balwinder Alves on 12-16-2024 Hematocrit (Bld) [Volume fraction] 36.2 % Low 37-47 [facility] Hemoglobin A1con 12-16-2024 HbA1c (Bld) [Mass fraction] 8.4 % Normal <=5.6 [facility] Comment on above: Performed By: #### M 100.2200, L4.2010 #### [facility] [address] [place], [place], [id number] Hemoglobin A1c percentageOrd ered By: Balwinder Alves on 12-16-2024 HbA1c (Bld) [Mass fraction] 8.4 % >5.7 [facility] Hemoglobin measurementOrdere d By: Balwinder Alves on 12-16-2024 Hemoglobin (Bld) [Mass/Vol] 11.0 g/dL Low 12.0-15.0 [facility] L506.1001on 12-16-2024 Vitamin D 25-OH 31.6 ng/mL Normal 30-100 [facility] Comment on above: Result Comment: Feli min D Status Deficiency: <20 ng/mL (50nmol/L) Insufficiency: 20-30 ng/mL (50-75 nmol/L) Sufficiency: 30-100 ng/mL (75-250 nmol/L) Toxicity: >100 ng/mL (>250 nmol/L) Performed By: #### M 100.2200, L400.2010 #### [facility] [address] [place], [place], [id number] LDL calc ser/plasOrdered By: Balwinder Alves on 12-16-2024 Cholesterol in LDL [Mass/Vol] 22 mg/dL [facility] Comment on above: Oaiktzxoqd=182-115 m g/dL & Higher Qiho=148 mg/dL or greater LDL Cholesterol, Calculated 22 mg/dL [facility] Comment on above: Vwlqrubybu=517-854 m g/dL & Higher Fsox=095 mg/dL or greater Lipid Profileon 12-16-2024 CHOL:HDL 2.22 Normal [facility] Comment on above: Performed By: #### M .2199, #### [facility] [address] [place], [address] Cholesterol [Mass/Vol] 98 mg/dL Normal <=200 [facility] Comment on above: Result Comment: Chol esterol level, Desirable <200 mg/dL Borderline high cholesterol 200-239 mg/dL High cholesterol >=240 mg/dL Recommendations of the NCEP Adult Treatment Panel for the following risk-cutoff thresholds for the [place] population. Performed By: #### M , L4 #### [facility] [address] [place], [address] Cholesterol in HDL [Mass/Vol] 44 mg/dL Normal [facility] Comment on above: Result Comment: Matilde onal Cholesterol Education Program (NCEP) guidelines: <40 mg/dL: Low HDL-cholesterol (major risk factor for CHD) >= 60 mg/dL: High HDL-cholesterol (negative risk factor for CHD) HDL-cholesterol is affected by a number of factors, e.g. smoking, exercise, hormones, sex and age. Performed By: #### M .2199, L4 #### [facility] [address] [place], [address] Cholesterol in LDL [Mass/Vol] 22 mg/dL Normal [facility] Comment on above: Result Comment: Bord leohbt=105-326 mg/dL Higher Efsk=092 mg/dL or greater Performed By: #### M 100.2199, L4 #### [facility] [address] [place], [address] Cholesterol in VLDL [Mass/Vol] 32 mg/dL Normal 5-40 [facility] Comment on above: Performed By: #### M 100.2200, L4.2010 #### [facility] [address] [place], [place], [address] Triglyceride [Mass/Vol] 162 mg/dL Normal [facility] Comment on above: Result Comment: The drugs N-Acetylcysteine and Metamizole may falsely depress this assay. Normal range: <150 mg/dL Borderline High: 150-199 mg/dL High: 200-499 mg/dL Very High: >500 mg/dL Performed By: #### M 100.2200, L400.2010 #### [facility] [address] [place], [place], [address] MCV (mean corpuscular volume ) determinationOrdered By: Balwinder Alves on 12-16-2024 MCV (RBC) [Entitic vol] 92.8 fL 81-99 [facility] Mean corpuscular hemoglobin (MCH) determinationOrdered By: Balwinder Alves on 12-16-2024 MCH (RBC) [Entitic mass] 28.2 pg 27.0-32.0 [facility] Mean corpuscular hemoglobin concentration (MCHC) determinationOrdered By: Balwinder Alves on 12-16-2024 MCHC (RBC) [Mass/Vol] 30.4 g/dL Low 32-36 [facility] Mean platelet volume determi nationOrdered By: Balwinder Alves on 12-16-2024 Platelet mean volume (Bld) [Entitic vol] 8.4 fL 6.2-12.0 [facility] Platelet countOrdered By: Jen Alves on 12-16-2024 Platelets (Bld) [#/Vol] 231 10*3/uL 150-450 [facility] Potassium (Unsp spec) [Mass/ Vol]Ordered By: Balwinder Alves on 12-16-2024 Potassium [Moles/Vol] 4.6 mmol/L 3.3-5.1 [facility] Potassium measurement (mass/ volume)Ordered By: Balwinder Alves on 12-16-2024 Potassium (Unsp spec) [Mass/Vol] 4.6 mmol/L 3.3-5.1 [facility] RBC Auto (Bld) [#/Vol]Ordere d By: Balwinder Alves on 12-16-2024 RBC (Bld) [#/Vol] 3.90 10*6/uL Low 4.2-5.4 [facility] Screening total cholesterol/ high density lipoprotein (HDL) cholesterol ratioOrdered By: Balwinder Alves on 12-16-2024 Cholesterol.total/Jany sterol in HDL [Mass ratio] 2.22 {ratio} [facility] Serum creatinine measurement (mass/volume)Ordered By: Balwinder Alves on 12-16-2024 Creatinine [Mass/Vol] 0.67 mg/dL Low 0.70-1.20 [facility] Serum glucose measurement (m ass/volume)Ordered By: Balwinder Alves on 12-16-2024 Glucose [Mass/Vol] 201 mg/dL High 70-99 [facility] Serum or plasma calcium jacqueline urement (mass/volume)Ordered By: Balwinder Alves on 12-16-2024 Calcium [Mass/Vol] 9.5 mg/dL 7.6-11.0 [facility] Serum or plasma cholesterol in HDL measurement (mass/volume)Ordered By: Balwinder Alves on 12-16-2024 Cholesterol in HDL [Mass/Vol] 44 mg/dL >40 [facility] Comment on above: National Cholesterol Education [...] the following risk-cutoff thresholds for the [place] population. Serum or plasma urea nitroge n measurement (mass/volume)Ordered By: Balwinder Alves on 12-16-2024 Urea nitrogen [Mass/Vol] 8 mg/dL 4-19 [facility] Sodium levelOrdered By: Balwinder Alves on 12-16-2024 Sodium [Moles/Vol] 137 mmol/L 133-145 [facility] Triglycerides measurementOrd ered By: Balwinder Alves on 12-16-2024 Triglyceride [Mass/Vol] 162 mg/dL <199 [facility] Comment on above: The drugs N-Acetylcy steine and Metamizole may falsely depress this assay. Normal range: <150 mg/dLBorderline High: 150-199 mg/dLHigh: 200-499 mg/dLVery High: >500 mg/dL Vitamin D, 25-hydroxyOrdered By: Balwinder Alves on 12-16-2024 Vitamin D 25-Hydroxy 31.6 ng/mL 30-100 [facility] Comment on above: Vitamin D StatusDefi ciency: <20 ng/mL (50nmol/L)Insufficiency: 20-30 ng/mL (50-75 nmol/L)Sufficiency: 30-100 ng/mL (75-250 nmol/L)Toxicity: >100 ng/mL (>250 nmol/L) White blood cell (WBC) count Ordered By: Balwinder Alves on 12-16-2024 WBC (Bld) [#/Vol] 7.8 10*3/uL 4.4-11.0 [facility] Absolute lymphocyte countOrd ered By: Balwinder Alves on 12-14-2024 Lymphocytes Auto (Unsp spec) [#/Vol] 1.93 10*3/uL 0.83-4.51 [facility] Absolute neutrophil countOrd ered By: Balwinder Alves on 12-14-2024 Neutrophils (Bld) [#/Vol] 4.0 10*3/uL 2.0-7.7 [facility] Anion gap in Serum or Plasma Ordered By: Balwinder Alves on 12-14-2024 Anion gap [Moles/Vol] 11 mmol/L 5-15 [facility] Automated lymphocyte count a s percentage of total leukocytesOrdered By: Balwinder Alves on 12-14-2024 Lymphocytes/100 WBC Auto (Unsp spec) 28.7 % - [facility] BUN/creatinine ratioOrdered By: Balwinder Alves on 12-14-2024 Urea nitrogen/Creatinine [Mass ratio] 10.3 mg/mg - [facility] Basic Metabolic Profile (BMP )on 12-14-2024 BUN/CRE 10.3 RATIO Normal 07-24 [facility] Comment on above: Order Comment: 102.2 Performed By: #### L 100.0500, L500.2500 #### [facility] [address] [place], [address] Calcium [Mass/Vol] 9.2 mg/dL Normal 7.6-11.0 [facility] Comment on above: Order Comment: 102.2 Performed By: #### L 100.0500, L500.2500 #### [facility] [address] [place], [address] Chloride [Moles/Vol] 101 mmol/L Normal 98-108 [facility] Comment on above: Order Comment: 102.2 Performed By: #### L 100.0500, L500.2500 #### [facility] [address] [place], [address] CO2 [Moles/Vol] 27.6 mmol/L Normal 21.0-32.0 [facility] Comment on above: Order Comment: 102.2 Performed By: #### L 100.0500, L500.2500 #### [facility] [address] [place], [address] Creatinine [Mass/Vol] 0.68 mg/dL Low 0.70-1.20 [facility] Comment on above: Order Comment: 102.2 Performed By: #### L 100.0500, L500.2500 #### [facility] [address] [place], [address] GAP 11 Normal 5-15 [facility] Comment on above: Order Comment: 102.2 Performed By: #### L 100.0500, L500.2500 #### [facility] [address] [place], [address] GFR/1.73 sq M.predicted among non-blacks MDRD (S/P/Bld) [Vol rate/Area] 88 mL/min/{1.73_m2} Normal >60 [facility] Comment on above: Order Comment: 102.2 Result Comment: mL/m in/1.73m2 CKD-EPI Creatinine Equation (2020) Performed By: #### L 100.0500, L500.2500 #### [facility] [address] [place], [address] Glucose [Mass/Vol] 177 mg/dL High 70-99 [facility] Comment on above: Order Comment: 102.2 Performed By: #### L 100.0500, L500.2500 #### [facility] [address] [place], [address] Potassium [Moles/Vol] 4.3 mmol/L Normal 3.3-5.1 [facility] Comment on above: Order Comment: 102.2 Performed By: #### L 100.0500, L500.2500 #### [facility] [address] [place], [address] Sodium [Moles/Vol] 139 mmol/L Normal 133-145 [facility] Comment on above: Order Comment: 102.2 Performed By: #### L 100.0500, L500.2500 #### [facility] [address] [place], [address] Urea nitrogen [Mass/Vol] 7 mg/dL Normal 4-19 [facility] Comment on above: Order Comment: 102.2 Performed By: #### L 100.0500, L500.2500 #### [facility] [address] [place], [address] Basophil percentageOrdered B y: Balwinder Nelson on 12-14-2024 Basophils/100 WBC (Bld) 0.3 % 0-1 [facility] CBC W/Diff, Automatedon 12-03 Absolute Lymph 1.93 X10 3/uL Normal 0.83-4.51 [facility] Comment on above: Order Comment: 102.2 Performed By: #### L 100.0500, L500.2500 #### [facility] [address] [place], [address] Absolute Neut 4.0 X10 3/uL Normal 2.0-7.7 [facility] Comment on above: Order Comment: 102.2 Performed By: #### L 100.0500, L500.2500 #### [facility] [address] [place], [address] Basophils/100 WBC (Bld) 0.3 % Normal 0-1 [facility] [facility] Comment on above: Order Comment: 102.2 Performed By: #### L 100.0500, L500.2500 #### [facility] [address] [place], [address] Eosinophils/100 WBC (Bld) 3.1 % Normal 0-5 [facility] Comment on above: Order Comment: 102.2 Performed By: #### L 100.0500, L500.2500 #### [facility] [address] [place], [address] Erythrocyte distribution width (RBC) [Ratio] 13.6 % Normal 11.6-14.6 [facility] Comment on above: Order Comment: 102.2 Performed By: #### L 100.0500, L500.2500 #### [facility] [address] [place], [address] Hematocrit (Bld) [Volume fraction] 35.6 % Low 37-47 [facility] Comment on above: Order Comment: 102.2 Performed By: #### L 100.0500, L500.2500 #### [facility] [address] [place], [address] Hemoglobin (Bld) [Mass/Vol] 10.9 g/dL Low 12.0-15.0 [facility] Comment on above: Order Comment: 102.2 Performed By: #### L 100.0500, L500.2500 #### [facility] [address] [place], [address] IG% 1.000 High 0.0-0.9 [facility] Comment on above: Order Comment: 102.2 Result Comment: IG% - Immature Granulocytes (promyelocytes, myelocytes and metamyelocytes) > 1% indicates that a LEFT SHIFT is Present. Performed By: #### L 100.0500, L500.2500 #### [facility] [address] [place], [address] Lymphocytes/100 WBC (Bld) 28.7 % Normal 19-41 [facility] Comment on above: Order Comment: 102.2 Performed By: #### L 100.0500, L500.2500 #### [facility] [address] [place], [address] MCH (RBC) [Entitic mass] 28.2 pg Normal 27.0-32.0 [facility] Comment on above: Order Comment: 102.2 Performed By: #### L 100.0500, L500.2500 #### [facility] [address] [place], [address] MCHC (RBC) [Mass/Vol] 30.6 g/dL Low 32-36 [facility] Comment on above: Order Comment: 102.2 Performed By: #### L 100.0500, L500.2500 #### [facility] [address] [place], [address] MCV (RBC) [Entitic vol] 92.0 fL Normal 81-99 [facility] Comment on above: Order Comment: 102.2 Performed By: #### L 100.0500, L500.2500 #### [facility] [address] [place], [address] Monocytes/100 WBC (Bld) 6.8 % Normal 0-10 [facility] Comment on above: Order Comment: 102.2 Performed By: #### L 100.0500, L500.2500 #### [facility] [address] [place], [address] Neutrophils/100 WBC (Bld) 60.1 % Normal 47-70 [facility] Comment on above: Order Comment: 102.2 Performed By: #### L 100.0500, L500.2500 #### [facility] [address] [place], [address] Nucleated RBC (Bld) [#/Vol] 0 10*3/uL Normal 0-5 [facility] Comment on above: Order Comment: 102.2 Performed By: #### L 100.0500, L500.2500 #### [facility] [address] [place], [address] Platelet mean volume (Bld) [Entitic vol] 8.5 fL Normal 6.2-12.0 [facility] Comment on above: Order Comment: 102.2 Performed By: #### L 100.0500, L500.2500 #### [facility] [address] [place], [address] Platelets (Bld) [#/Vol] 213 10*3/uL Normal 150-450 [facility] Comment on above: Order Comment: 102.2 Performed By: #### L 100.0500, L500.2500 #### [facility] [address] [place], [address] RBC (Bld) [#/Vol] 3.87 10*6/uL Low 4.2-5.4 [facility] Comment on above: Order Comment: 102.2 Performed By: #### L 100.0500, L500.2500 #### [facility] [address] [place], [address] RDW SD 46.1 fl High 35.1-43.9 [facility] Comment on above: Order Comment: 102.2 Performed By: #### L 100.0500, L500.2500 #### [facility] [address] [place], [place], [address] WBC (Bld) [#/Vol] 6.7 10*3/uL Normal 4.4-11.0 [facility] Comment on above: Order Comment: 102.2 Performed By: #### L 100.0500, L500.2500 #### [facility] [address] [facility] [address] [place], [place], [id number] Calculated very low density lipoprotein (VLDL) cholesterol measurementOrdered By: Balwinder Alves on 12-14-2024 Calculated very low density lipoprotein (VLDL) cholesterol measurement 29 mg/dL 5-40 [facility] VLDL Cholesterol 29 mg/dL 5-40 [facility] Carbon dioxide, total [Moles /volume] in Central venous bloodOrdered By: Balwinder Alves on 12-14-2024 CO2 [Moles/Vol] 27.6 mmol/L 21.0-32.0 [facility] Chloride assayOrdered By: Jen Alves on 12-14-2024 Chloride [Moles/Vol] 101 mmol/L 98-108 [facility] Eosinophil percentageOrdered By: Balwinder Alves on 12-14-2024 Eosinophils/100 WBC (Bld) 3.1 % 0-5 [facility] Erythrocyte distribution wid th (RBC) [Ratio]Ordered By: Balwinder Alves on 12-14-2024 Erythrocyte distribution width (RBC) [Entitic vol] 46.1 fL High 35.1-43.9 [facility] Erythrocyte distribution wid th ratioOrdered By: Balwinder Alves on 12-14-2024 Erythrocyte distribution width (RBC) [Ratio] 13.6 % 11.6-14.6 [facility] Erythrocyte distribution wid th standard deviationOrdered By: Balwinder Alves on 12-14-2024 Erythrocyte distribution width (RBC) [Ratio] 46.1 fl High 35.1-43.9 [facility] GFR/1.73 sq M.predicted philipp g non-blacks MDRD (S/P/Bld) [Vol rate/Area]Ordered By: Balwinder Alves on 12-14-2024 Estimated GFR (MDRD) Non-Af Amer 88 >60 [facility] Comment on above: mL/min/1.73m2 CKD-EP I Creatinine Equation (2020) Glomerular filtration rate ( GFR) estimation/1.73 sq m using serum, plasma, or whole bOrdered By: Balwinder Alves on 12-14-2024 GFR/1.73 sq M.predicted among non-blacks MDRD (S/P/Bld) [Vol rate/Area] 88 mL/min/{1.73_m2} >60 [facility] Comment on above: mL/min/1.73m2 CKD-EP I Creatinine Equation (2020) Hematocrit Auto (Bld) [Volum e fraction]Ordered By: Balwinder Alves on 12-14-2024 Hematocrit (Bld) [Volume fraction] 35.6 % Low 37-47 [facility] Hemoglobin A1con 12-14-2024 HbA1c (Bld) [Mass fraction] 8.6 % Normal <=5.6 [facility] Comment on above: Order Comment: 102.2 Performed By: #### L 100.0500, L500.2500 #### [facility] [place], [address] Hemoglobin A1c percentageOrd ered By: Balwinder Alves on 12-14-2024 HbA1c (Bld) [Mass fraction] 8.6 % >5.7 [facility] Hemoglobin measurementOrdere d By: Balwinder Alves on 12-14-2024 Hemoglobin (Bld) [Mass/Vol] 10.9 g/dL Low 12.0-15.0 [facility] Immature granulocytes/100 WB C Auto (Bld)Ordered By: Balwinder Alves on 12-14-2024 Immature granulocytes/100 WBC (Bld) 1.000 % High 0.0-0.9 [facility] Comment on above: IG% - Immature Granu locytes (promyelocytes, myelocytes and metamyelocytes) > 1% indicates that a LEFT SHIFT is Present. L506.1001on 12-14-2024 Vitamin D 25-OH 31.2 ng/mL Normal 30-100 [facility] Comment on above: Order Comment: 102.2 Result Comment: Feli min D Status Deficiency: <20 ng/mL (50nmol/L) Insufficiency: 20-30 ng/mL (50-75 nmol/L) Sufficiency: 30-100 ng/mL (75-250 nmol/L) Toxicity: >100 ng/mL (>250 nmol/L) Performed By: #### L 100.0500, L500.2500 #### [facility] [address] [place], [address] LDL calc ser/plasOrdered By: Balwinder Alves on 12-14-2024 Cholesterol in LDL [Mass/Vol] 22 mg/dL [facility] Comment on above: Gfdobcczaq=466-003 m g/dL & Higher Jmlz=867 mg/dL or greater LDL Cholesterol, Calculated 22 mg/dL [facility] Comment on above: Fdijwarbgx=050-568 m g/dL & Higher Ukxz=945 mg/dL or greater Lipid Profileon 12-14-2024 CHOL:HDL 2.29 Normal [facility] Comment on above: Order Comment: 102.2 Performed By: #### L 100.0500, L500.2500 #### [facility] [address] [place], [address] Cholesterol [Mass/Vol] 91 mg/dL Normal <=200 [facility] Comment on above: Order Comment: 102.2 Result Comment: Chol esterol level, Desirable <200 mg/dL Borderline high cholesterol 200-239 mg/dL High cholesterol >=240 mg/dL Recommendations of the NCEP Adult Treatment Panel for the following risk-cutoff thresholds for the [place] population. Performed By: #### L 100.0500, L500.2500 #### [facility] [address] [place], [address] Cholesterol in HDL [Mass/Vol] 40 mg/dL Normal [facility] Comment on above: Order Comment: 102.2 Result Comment: Matilde onal Cholesterol Education Program (NCEP) guidelines: <40 mg/dL: Low HDL-cholesterol (major risk factor for CHD) >= 60 mg/dL: High HDL-cholesterol (negative risk factor for CHD) HDL-cholesterol is affected by a number of factors, e.g. smoking, exercise, hormones, sex and age. Performed By: #### L 100.0500, L500.2500 #### [facility] [address] [place], [address] Cholesterol in LDL [Mass/Vol] 22 mg/dL Normal [facility] Comment on above: Order Comment: 102.2 Result Comment: Bord wqucfc=696-501 mg/dL Higher Jnme=995 mg/dL or greater Performed By: #### L 100.0500, L500.2500 #### [facility] [address] [place], [address] Cholesterol in VLDL [Mass/Vol] 29 mg/dL Normal 5-40 [facility] Comment on above: Order Comment: 102.2 Performed By: #### L 100.0500, L500.2500 #### [facility] [address] [place], [address] Triglyceride [Mass/Vol] 146 mg/dL Normal [facility] Comment on above: Order Comment: 102.2 Result Comment: The drugs N-Acetylcysteine and Metamizole may falsely depress this assay. Normal range: <150 mg/dL Borderline High: 150-199 mg/dL High: 200-499 mg/dL Very High: >500 mg/dL Performed By: #### L 100.0500, L500.2500 #### [facility] [address] [place], [address] Lymphocytes Auto (Unsp spec) [#/Vol]Ordered By: Balwinder Alves on 12-14-2024 Lymphocytes (Bld) [#/Vol] 1.93 10*3/uL 0.83-4.51 [facility] Lymphocytes/100 WBC Auto (Un sp spec)Ordered By: Balwinder Alves on 12-14-2024 Lymphocytes/100 WBC (Bld) 28.7 % 19-41 [facility] MCV (mean corpuscular volume ) determinationOrdered By: Balwinder Alves on 12-14-2024 MCV (RBC) [Entitic vol] 92.0 fL 81-99 [facility] Mean corpuscular hemoglobin (MCH) determinationOrdered By: Balwinder Alves on 12-14-2024 MCH (RBC) [Entitic mass] 28.2 pg 27.0-32.0 [facility] Mean corpuscular hemoglobin concentration (MCHC) determinationOrdered By: Balwinder Alves on 12-14-2024 MCHC (RBC) [Mass/Vol] 30.6 g/dL Low 32-36 [facility] Mean platelet volume determi nationOrdered By: Balwinder Alves on 12-14-2024 Platelet mean volume (Bld) [Entitic vol] 8.5 fL 6.2-12.0 [facility] Monocyte percentageOrdered B y: Balwinder Alves on 12-14-2024 Monocytes/100 WBC (Bld) 6.8 % 0-10 [facility] Neutrophil percentageOrdered By: Balwinder Alves on 12-14-2024 Neutrophils/100 WBC (Bld) 60.1 % 47-70 [facility] Nucleated red blood cell per centageOrdered By: Balwinder Alves on 12-14-2024 Nucleated RBC/100 WBC (Bld) [Ratio] 0 % 0-5 [facility] Platelet countOrdered By: Jen Alves on 12-14-2024 Platelets (Bld) [#/Vol] 213 10*3/uL 150-450 [facility] Potassium (Unsp spec) [Mass/ Vol]Ordered By: Balwinder Alves on 12-14-2024 Potassium [Moles/Vol] 4.3 mmol/L 3.3-5.1 [facility] Potassium measurement (mass/ volume)Ordered By: Balwinder Alves on 12-14-2024 Potassium (Unsp spec) [Mass/Vol] 4.3 mmol/L 3.3-5.1 [facility] RBC Auto (Bld) [#/Vol]Ordere d By: Balwinder Alves on 12-14-2024 RBC (Bld) [#/Vol] 3.87 10*6/uL Low 4.2-5.4 [facility] Screening total cholesterol/ high density lipoprotein (HDL) cholesterol ratioOrdered By: Balwinder Alves on 12-14-2024 Cholesterol.total/Jany sterol in HDL [Mass ratio] 2.29 {ratio} [facility] Serum creatinine measurement (mass/volume)Ordered By: Balwinder Alves on 12-14-2024 Creatinine [Mass/Vol] 0.68 mg/dL Low 0.70-1.20 [facility] Serum glucose measurement (m ass/volume)Ordered By: Balwinder Alves on 12-14-2024 Glucose [Mass/Vol] 177 mg/dL High 70-99 [facility] Serum or plasma calcium jacqueline urement (mass/volume)Ordered By: Balwinder Alves on 12-14-2024 Calcium [Mass/Vol] 9.2 mg/dL 7.6-11.0 [facility] Serum or plasma cholesterol in HDL measurement (mass/volume)Ordered By: Balwinder Alves on 12-14-2024 Cholesterol in HDL [Mass/Vol] 40 mg/dL >40 [facility] Comment on above: National Cholesterol Education [...] the following risk-cutoff thresholds for the [place] population. Serum or plasma urea nitroge n measurement (mass/volume)Ordered By: Balwinder Alves on 12-14-2024 Urea nitrogen [Mass/Vol] 7 mg/dL 4-19 [facility] Sodium levelOrdered By: Balwinder Alves on 12-14-2024 Sodium [Moles/Vol] 139 mmol/L 133-145 [facility] Triglycerides measurementOrd ered By: Balwinder Alves on 12-14-2024 Triglyceride [Mass/Vol] 146 mg/dL <199 [facility] Comment on above: The [...] (Bld) [#/Vol] 6.7 10*3/uL 4.4-11.0 [facility] Urine Cultureon 10-17-2024 [facility] Copy of report sent to Infection Control Printer [id number] 10/17/24 1000 VSICK. Urine Culture Urine Culture Urine Culture ESBL Escherichia coli [place] Count 80,000-100,000 MARKER ESBL producing OrganismA MARKER ESBL producing OrganismA [place] Count 80,000-100,000 Proteus mirabilis Ampicillin Islt PREM [...] TMP SMX Islt PREM <=20 S Normal [facility] Comment on above: Performed By: #### L 100.0500, L500.2500 #### [facility] [address] [place], [address] Urinalysis, Routine (Dipstic k)on 10-11-2024 BILIRUBIN URINE Negative Normal Negative [facility] Comment on above: Order Comment: 102.2 Performed By: #### L 100.0500, L500.2500 #### [facility] [address] [place], [address] Clarity (U) Sl. Cloudy Normal Clear [facility] Comment on above: Order Comment: 102.2 Performed By: #### L 100.0500, L500.2500 #### [facility] [address] [place], [address] Color (U) Yellow Normal Yellow [facility] Comment on above: Order Comment: 102.2 Performed By: #### L 100.0500, L500.2500 #### [facility] [address] [place], [address] GLUCOSE, UR Normal Normal Normal [facility] Comment on above: Order Comment: 102.2 Performed By: #### L 100.0500, L500.2500 #### [facility] [address] [place], [address] KETONE UR Negative Normal Negative [facility] Comment on above: Order Comment: 102.2 Performed By: #### L 100.0500, L500.2500 #### [facility] [address] [place], [address] LEUK ESTERASE 500 /ul Abnormal Negative [facility] Comment on above: Order Comment: 102.2 Performed By: #### L 100.0500, L500.2500 #### [facility] [address] [place], [address] Nitrite Ql (U) Positive Abnormal Negative [facility] Comment on above: Order Comment: 102.2 Performed By: #### L 100.0500, L500.2500 #### [facility] [address] [place], [address] OCCULT BLOOD-UR 50 /ul Abnormal Negative [facility] Comment on above: Order Comment: 102.2 Performed By: #### L 100.0500, L500.2500 #### [facility] [address] [place], [address] pH UR 6.5 Normal 5.0 - 8.0 [facility] Comment on above: Order Comment: 102.2 Performed By: #### L 100.0500, L500.2500 #### [facility] [address] [place], [address] PROT DIPSTX 15 mg/dl Abnormal Negative [facility] Comment on above: Order Comment: 102.2 Performed By: #### L 100.0500, L500.2500 #### [facility] [address] [place], [address] SP.GR. DIPSTX 1.010 Normal 1.002-1.030 [facility] Comment on above: Order Comment: 102.2 Performed By: #### L 100.0500, L500.2500 #### [facility] [address] [place], [address] UROBILI Normal Normal Normal [facility] Comment on above: Order Comment: 102.2 Performed By: #### L 100.0500, L500.2500 #### [facility] [address] [place], [address] Bilirubin Test strip Ql (U)O rdered By: Balwinder Alves on 10-10-2024 Bilirubin Ql (U) Negative Negative [facility] Glucose Ql (U)Ordered By: Jen Alves on 10-10-2024 Urine Glucose (UA) Normal mg/dl Normal [facility] Ketones Test strip Ql (U)Ord ered By: Balwinder Alves on 10-10-2024 Ketones Ql (U) Negative Negative [facility] Nitrite Test strip Ql (U)Ord ered By: Balwinder Alves on 10-10-2024 Nitrite Ql (U) Positive High Negative [facility] Protein Test strip Ql (U)Ord ered By: Balwinder Alves on 10-10-2024 Protein Ql (U) 15 mg/dl High Negative [facility] Urine blood detectionOrdered By: Balwinder Alves on 10-10-2024 Urine Occult Blood 50 /ul High Negative [facility] Urine clarityOrdered By: Javed Alves on 10-10-2024 Clarity (U) Sl. Cloudy Clear [facility] Urine color determinationOrd ered By: Balwinder Alves on 10-10-2024 Color (U) Yellow Yellow [facility] Urine cultureOrdered By: Javed Alves on 10-10-2024 Bacteria identified Cx Nom (U) ESBL Escherichia coli Abnormal [facility] Bacteria identified Cx Nom (U) Proteus mirabilis Abnormal [facility] Urine leukocyte esterase det ection by dipstickOrdered By: Balwinder Alves on 10-10-2024 Leukocyte esterase Test strip Ql (U) 500 /ul High Negative [facility] Urine pHOrdered By: Balwinder blackman on 10-10-2024 pH (U) 6.5 [pH] 5.0 - 8.0 [facility] Urine specific gravity measu rementOrdered By: Balwinder Alves on 10-10-2024 Specific gravity (U) [Rel density] 1.010 1.002-1.030 [facility] Urobilinogen Ql (U)Ordered B y: Balwinder Alves on 10-10-2024 Urine Urobilinogen Normal mg/dl Normal [facility] Automated blood erythrocyte countOrdered By: Balwinder Alves on 09-14-2024 RBC (Bld) [#/Vol] 3.90 10*6/uL Low 4.2-5.4 [facility] Comment on above: Order Comment: 102.2 Performed By: #### L 100.0500, L500.2500 #### [facility] [place], [address] Automated blood hematocrit ( percentage)Ordered By: Balwinder Alves on 09-14-2024 Hematocrit (Bld) [Volume fraction] 37.7 % Normal 37-47 [facility] Comment on above: Order Comment: 102.2 Performed By: #### L 100.0500, L500.2500 #### [facility] [address] [place], [address] Basic Metabolic Profile (BMP )on 09-14-2024 BUN/CRE 15.5 RATIO Normal 10-20 [facility] Comment on above: Order Comment: 102.2 Performed By: #### L 100.0500, L500.2500 #### [facility] [address] [place], [address] CA,Total 9.4 mg/dL Normal 8.5-10.1 [facility] Comment on above: Order Comment: 102.2 Performed By: #### L 100.0500, L500.2500 #### [facility] [address] [place], [address] EST GFR - AA 102 mL/min Normal >60 [facility] Comment on above: Order Comment: 102.2 Result Comment: Afri can [place] GFR Calc Performed By: #### L 100.0500, L500.2500 #### [facility] [address] [place], [address] GAP 3 Low 5-15 [facility] Comment on above: Order Comment: 102.2 Performed By: #### L 100.0500, L500.2500 #### [facility] [address] [place], [address] GFR/1.73 sq M.predicted among non-blacks MDRD (S/P/Bld) [Vol rate/Area] 84 mL/min/{1.73_m2} Normal >60 [facility] Comment on above: Order Comment: 102.2 Result Comment: Non- GFR Calc Performed By: #### L 100.0500, L500.2500 #### [facility] [address] [place], [address] Blood urea nitrogen (BUN)/cr eatinine ratioOrdered By: Balwinder Alves on 09-14-2024 Urea nitrogen/Creatinine [Mass ratio] 15.5 mg/mg 10- [facility] CBC-Complete Blood Cnt No Di ffon 09-14-2024 RDW SD 48.3 fl High 35.1-43.9 [facility] Comment on above: Order Comment: 102.2 Performed By: #### L 100.0500, L500.2500 #### [facility] [address] [place], [address] Carbon dioxide measurementOr dered By: Balwinder Alves on 09-14-2024 CO2 [Moles/Vol] 34.0 mmol/L High 21.0-32.0 [facility] Comment on above: Order Comment: 102.2 Performed By: #### L 100.0500, L500.2500 #### [facility] [address] [place], [address] Chloride measurementOrdered By: Balwinder Alves on 09-14-2024 Chloride [Moles/Vol] 103 mmol/L Normal 98-107 [facility] Comment on above: Order Comment: 102.2 Performed By: #### L 100.0500, L500.2500 #### [facility] [address] [place], [address] Erythrocyte distribution wid th (RBC) [Ratio]Ordered By: Balwinder Alves on 09-14-2024 Erythrocyte distribution width (RBC) [Entitic vol] 48.3 fL High 35.1-43.9 [facility] Erythrocyte distribution wid th ratioOrdered By: Balwinder Alves on 09-14-2024 Erythrocyte distribution width (RBC) [Ratio] 14.0 % Normal 11.6-14.6 [facility] Comment on above: Order Comment: 102.2 Performed By: #### L 100.0500, L500.2500 #### [facility] [address] [place], [address] Estimated glomerular filtrat ion rate (GFR) AmericanOrdered By: Balwinder Alves on 09-14-2024 Estimated GFR (MDRD) Amer 102 mL/min >60 [facility] Comment on above: GFR Calc Glomerular filtration rate ( GFR) estimationOrdered By: Balwinder Alves on 09-14-2024 Estimated GFR (MDRD) Non-Af Amer 84 mL/min >60 [facility] Comment on above: Non- GFR Calc Glucose measurementOrdered B y: Balwinder Alves on 09-14-2024 Glucose [Mass/Vol] 168 mg/dL High 74-106 [facility] Comment on above: Fasting Glucose resu lt greater than or equal to 126 mg/dL suggests DIABETES MELLITUS per A.D.A. criteria. Order Comment: 102.2 Result Comment: Fast ing Glucose result greater than or equal to 126 mg/dL suggests DIABETES MELLITUS per A.D.A. criteria. Performed By: #### L 100.0500, L500.2500 #### [facility] [address] [place], [address] Hemoglobin measurementOrdere d By: Balwinder Alves on 09-14-2024 Hemoglobin (Bld) [Mass/Vol] 11.1 g/dL Low 12.0-15.0 [facility] Comment on above: Order Comment: 102.2 Performed By: #### L 100.0500, L500.2500 #### [facility] [address] [place], [address] MCV (mean corpuscular volume ) determinationOrdered By: Balwinder Alves on 09-14-2024 MCV (RBC) [Entitic vol] 96.7 fL Normal 81-99 [facility] Comment on above: Order Comment: 102.2 Performed By: #### L 100.0500, L500.2500 #### [facility] [address] [place], [address] Mean corpuscular hemoglobin (MCH) determinationOrdered By: Balwinder Alves on 09-14-2024 MCH (RBC) [Entitic mass] 28.5 pg Normal 27.0-32.0 [facility] Comment on above: Order Comment: 102.2 Performed By: #### L 100.0500, L500.2500 #### [facility] [address] [place], [address] Mean corpuscular hemoglobin concentration (MCHC) determinationOrdered By: Balwinder Alves on 09-14-2024 MCHC (RBC) [Mass/Vol] 29.4 g/dL Low 32-36 [facility] Comment on above: Order Comment: 102.2 Performed By: #### L 100.0500, L500.2500 #### [facility] [address] [place], [address] Mean platelet volume determi nationOrdered By: Balwinder Alves on 09-14-2024 Platelet mean volume (Bld) [Entitic vol] 8.2 fL Normal 6.2-12.0 [facility] Comment on above: Order Comment: 102.2 Performed By: #### L 100.0500, L500.2500 #### [facility] [address] [place], [address] Platelet countOrdered By: Jen Alves on 09-14-2024 Platelets (Bld) [#/Vol] 178 10*3/uL Normal 150-450 [facility] Comment on above: Order Comment: 102.2 Performed By: #### L 100.0500, L500.2500 #### [facility] [address] [place], [address] Potassium measurementOrdered By: Balwinder Alves on 09-14-2024 Potassium [Moles/Vol] 4.6 mmol/L Normal 3.5-5.1 [facility] Comment on above: Order Comment: 102.2 Performed By: #### L 100.0500, L500.2500 #### [facility] [address] [place], [address] Serum anion gap measurementO rdered By: Balwinder Alves on 09-14-2024 Anion gap [Moles/Vol] 3 mmol/L Low 5-15 [facility] Serum or plasma calcium jacqueline urement (mass/volume)Ordered By: Balwinder Alves on 12-11-2024 Calcium [Mass/Vol] 9.4 mg/dL 8.5-10.1 [facility] Serum or plasma creatinine m easurement (mass/volume)Ordered By: Balwinder Alves on 09-14-2024 Creatinine [Mass/Vol] 0.71 mg/dL Normal 0.55-1.02 [facility] Comment on above: The validity of the calculated GFR & GFRAA in patients over 70 years has not been determined. Clinical correlation is essential. Order Comment: 102.2 Result Comment: The validity of the calculated GFR GFRAA in patients over 70 years has not been determined. Clinical correlation is essential. Performed By: #### L 100.0500, L500.2500 #### [facility] [address] [place], [address] Serum or plasma urea nitroge n measurement (mass/volume)Ordered By: Balwinder Alves on 09-14-2024 Urea nitrogen [Mass/Vol] 11 mg/dL Normal 7-18 [facility] Comment on above: Order Comment: 102.2 Performed By: #### L 100.0500, L500.2500 #### [facility] [address] [place], [address] Sodium levelOrdered By: Balwinder Alves on 09-14-2024 Sodium [Moles/Vol] 139 mmol/L Normal 136-145 [facility] Comment on above: Order Comment: 102.2 Performed By: #### L 100.0500, L500.2500 #### [facility] [address] [place], [address] White blood cell (WBC) count Ordered By: Balwinder Alves on 09-14-2024 WBC (Bld) [#/Vol] 5.6 10*3/uL Normal 4.4-11.0 [facility] Comment on above: Order Comment: 102.2 Performed By: #### L 100.0500, L500.2500 #### [facility] [address] [place], [address] Basophil percentageOrdered B y: Balwinder Alves on 03-11-2024 Chloride [Moles/Vol] 105 mmol/L 98-107 [facility] Cholesterol [Mass/Vol] 128 mg/dL <200 [facility] Comment on above: <200 mg/dL Desirable 200-240 mg/dL Borderline >240 mg/dL High Risk Glucose [Mass/Vol] 132 mg/dL 74-106 [facility] Comment on above: Fasting Glucose resu lt greater than or equal to 126 mg/dL suggests DIABETES MELLITUS per A.D.A. criteria. Hemoglobin (Bld) [Mass/Vol] 12.5 g/dL 12.0-15.0 [facility] Potassium [Moles/Vol] 4.4 mmol/L 3.5-5.1 [facility] Sodium [Moles/Vol] 142 mmol/L 136-145 [facility] Triglyceride [Mass/Vol] 178 mg/dL <199 [facility] Comment on above: The drugs N-Acetylcy steine and Metamizole may falsely depress this assay.Serum Triglycerides Reference Interval Normal <150 mg/dL Borderline high 150 - 199 mg/dL High 200 - 499 mg/dL Very High > or = 500 mg/dL WBC (Bld) [#/Vol] 4.9 10*3/uL 4.4-11.0 [facility] Determination of erythrocyte mean corpuscular volume (MCV)Ordered By: Balwinder Alves on 12-14-2023 MCV (RBC) [Entitic vol] 92.6 fL 81-99 [facility] Erythrocyte distribution wid th ratioOrdered By: Balwinder Alves on 12-14-2023 Erythrocyte distribution width (RBC) [Ratio] 15.4 % 11.6-14.6 [facility] Erythrocyte distribution wid th standard deviationOrdered By: Balwinder Alves on 12-14-2023 Erythrocyte distribution width (RBC) [Entitic vol] 52.9 fL 35.1-43.9 [facility] Hematocrit Auto (Bld) [Volum e fraction]Ordered By: Balwinder Alves on 12-14-2023 Hematocrit (Bld) [Volume fraction] 41.1 % 37-47 [facility] - Chemistry and C hemistry - challengeOrdered By: Balwinder Alves on 12-14-2023 Cholesterol in HDL [Mass/Vol] 49 mg/dL >40 [facility] Comment on above: The drugs N-Acetylcy steine and Metamizole may falsely depress this assay. Reference Range HDL <40 mg/dL Low HDL Cholesterol HDL >or= 60 mg/dL High HDL Cholesterol Cholesterol in LDL [Mass/Vol] 43 mg/dL 0-130 [facility] CO2 [Moles/Vol] 32.0 mmol/L 21.0-32.0 [facility] Urea nitrogen/Creatinine [Mass ratio] 12.2 mg/mg 10-20 [facility] - Hematology and Cell countsOrdered By: Balwinder Alves on 12-14-2023 MCH (RBC) [Entitic mass] 28.2 pg 27.0-32.0 [facility] MCHC (RBC) [Mass/Vol] 30.4 g/dL 32-36 [facility] Platelet mean volume (Bld) [Entitic vol] 8.5 fL 6.2-12.0 [facility] Platelets (Bld) [#/Vol] 174 10*3/uL 150-450 [facility] No Panel InformationOrdered By: Balwinder Alves on 12-14-2023 Estimated GFR (MDRD) Amer 130 mL/min >60 [facility] Comment on above: GFR Calc Estimated GFR (MDRD) Non-Af Amer 107 mL/min >60 [facility] Comment on above: Non- GFR Calc Vitamin D 25-Hydroxy 42.9 ng/mL [facility] Comment on above: Vitamin D 25(OH) Sta tus Range Deficiency <20 ng/mL (50nmol/L) Insufficiency 20 - 30 ng/mL (50 - 75 nmol/L) Sufficiency 30 - 100 ng/mL (75 - 250 nmol/L) Toxicity >100 ng/mL (>250 nmol/L) VLDL Cholesterol 36 mg/dL 5-40 [facility] RBC Auto (Bld) [#/Vol]Ordere d By: Balwinder Alves on 12-14-2023 RBC (Bld) [#/Vol] 4.44 10*6/uL 4.2-5.4 [facility] Serum or plasma calcium jacqueline urement (mass/volume)Ordered By: Balwinder Alves on 12-14-2023 Calcium [Mass/Vol] 8.9 mg/dL 8.5-10.1 [facility] Serum or plasma creatinine m easurement (mass/volume)Ordered By: Balwinder Alves on 12-14-2023 Creatinine [Mass/Vol] 0.58 mg/dL 0.55-1.02 [facility] Comment on above: The validity of the calculated GFR & GFRAA in patients over 70 years has not been determined. Clinical correlation is essential. Serum or plasma urea nitroge n measurement (mass/volume)Ordered By: Balwinder Alves on 12-14-2023 Urea nitrogen [Mass/Vol] 7 mg/dL 7-18 [facility] Thin prep Papanicolaou smear with manual screeningOrdered By: Balwinder Alves on 12-14-2023 Thin prep Papanicolaou smear with manual screening 5 5-15 [facility] Whole blood hemoglobin A1c/t otal hemoglobin ratio (mass fraction)Ordered By: Balwinder Alves on 12-14-2023 HbA1c (Bld) [Mass fraction] 6.2 % 3.8-5.6 [facility] Comment on above: Normal < 5.7 % Predi abetic 5.7 - 6.4 % Diabetic >or= 6.5 % Please note range changes. Office Visiton 12-09-2023 Follow-up visit [id number] [place],Joy edwards 1945 F Date Provider Department Center 12/09/2023 [facility] OR None No family history on file Level of Service:72524 [place] OFFICE/OUTPATIENT ESTABLISHED LOW MDM 20 MIN Reason for Visit and Comments: Follow-up [501856] - L fibula fx Normal [facility] Progress Noteon 12-09-2023 Progress Note [facility] [address] [place] [address] [place] [id number] Dept: [phone] Dept Gumaro Daria 1945 [id number] 12/09/2023 HISTORY OF PRESENT ILLNESS: Gumaro returns [...] on it (more content not included)... Normal [facility] 36on 10-14-2023 36 Spoke with Beny at [facility] and clarified that Gumaro should bear weight in her boot until next visit and should use walker as needed for balance. Normal [facility] 36 Name of Caller: Gareth at [facility] Contact ask for Gareth Reason Gareth [...] a call back. Office Name: Ortho Normal [facility] Office Visiton 10-14-2023 Follow-up visit [id number] Joy Huff 1945 F Date Provider Department Center 10/14/2023 [id number], [facility] OR None No family history on file Level of Service:78469 [place] OFFICE/OUTPATIENT ESTABLISHED LOW MDM 20 MIN Reason for Visit and Comments: Follow-up [259188] - Left distal fibula fx DOI 07/02/[address] [facility] Progress Noteon 10-14-2023 Progress Note [facility] [address] [place] [address] [place] [id number] Dept: [phone] Dept Gmuaro Huff 1945 [id number] 10/14/2023 HISTORY OF PRESENT ILLNESS: Gumaro returns [...] physical therapy can resume at the facility. Gumrao was instructed to be partial weight bearing [...] above p (more content not included)... Normal [facility] Clostridioides difficile nuc leic acid assay by PCROrdered By: Balwinder Alves on 09-23-2023 C. difficile DNA DIGNA+probe Ql (Unsp spec) [facility] Clostridium difficile detect ion by polymerase chain reactionOrdered By: Balwinder Alves on 09-23-2023 C. difficile DNA DIGNA+probe Ql (Unsp spec) [facility] Basophil percentageOrdered B y: Balwinder Alves on 09-14-2023 Chloride [Moles/Vol] 102 mmol/L 98-107 [facility] Glucose [Mass/Vol] 142 mg/dL 74-106 [facility] Comment on above: Fasting Glucose resu lt greater than or equal to 126 mg/dL suggests DIABETES MELLITUS per A.D.A. criteria. Potassium [Moles/Vol] 4.1 mmol/L 3.5-5.1 [facility] Sodium [Moles/Vol] 138 mmol/L 136-145 [facility] WBC (Bld) [#/Vol] 5.9 10*3/uL 4.4-11.0 [facility] Blood erythrocytes count (nu mber/volume)Ordered By: Balwinder Alves on 09-14-2023 RBC (Bld) [#/Vol] 4.96 10*6/uL 4.2-5.4 [facility] Blood hemoglobin measurement (mass/volume)Ordered By: Balwinder Alves on 09-14-2023 Hemoglobin (Bld) [Mass/Vol] 13.3 g/dL 12.0-15.0 [facility] Blood platelet mean volumeOr dered By: Balwinder Alves on 09-14-2023 Platelet mean volume (Bld) [Entitic vol] 8.3 fL 6.2-12.0 [facility] Determination of erythrocyte mean corpuscular volume (MCV)Ordered By: Balwinder Alves on 09-14-2023 MCV (RBC) [Entitic vol] 92.5 fL 81-99 [facility] Hematocrit Auto (Bld) [Volum e fraction]Ordered By: Balwinder Alves on 09-14-2023 Hematocrit (Bld) [Volume fraction] 45.9 % 37-47 [facility] Laboratory - Chemistry and C hemistry - challengeOrdered By: Balwinder Alves on 09-14-2023 CO2 [Moles/Vol] 31.0 mmol/L 21.0-32.0 [facility] Urea nitrogen/Creatinine [Mass ratio] 10.1 mg/mg 10-20 [facility] Laboratory - Hematology and Cell countsOrdered By: Balwinder Alves on 09-14-2023 Erythrocyte distribution width (RBC) [Entitic vol] 47.0 fL 35.1-43.9 [facility] Erythrocyte distribution width (RBC) [Ratio] 13.9 % 11.6-14.6 [facility] MCH (RBC) [Entitic mass] 26.8 pg 27.0-32.0 [facility] MCHC Auto (RBC) [Mass/Vol]Or dered By: Balwinder Alves on 09-14-2023 MCHC (RBC) [Mass/Vol] 29.0 g/dL 32-36 [facility] No Panel InformationOrdered By: Balwinder Alves on 09-14-2023 Estimated GFR (MDRD) Amer 125 mL/min >60 [facility] Comment on above: GFR Calc Estimated GFR (MDRD) Non-Af Amer 103 mL/min >60 [facility] Comment on above: Non- GFR Calc Office Visiton 09-14-2023 Follow-up visit [id number] Joy Huff 1945 F Date Provider Department Center 09/14/2023 [id number] UREÑA [facility] None No family history on file Level of Service:81001 [place] OFFICE/OUTPATIENT NEW MODERATE MDM 45-59 MINUTES Reason for Visit and Comments: New Patient [542] - LT distal fibula fx DOI 07/02/23 Normal [facility] Platelets bldOrdered By: Javed Alves on 09-14-2023 Platelets (Bld) [#/Vol] 196 10*3/uL 150-450 [facility] Progress Noteon 09-14-2023 Progress Note [facility] [address] [facility] [facility] [address] [facility] [address] Dept: [phone] Dept Gumaro Huff 1945 [id number] 09/14/2023 HISTORY OF PRESENT ILLNESS: Gumaro is [...] he (more content not included)... Normal [facility] Serum or plasma calcium jacqueline urement (mass/volume)Ordered By: Balwinder Alves on 09-14-2023 Calcium [Mass/Vol] 8.9 mg/dL 8.5-10.1 [facility] Serum or plasma creatinine m easurement (mass/volume)Ordered By: Balwinder Alves on 09-14-2023 Creatinine [Mass/Vol] 0.59 mg/dL 0.55-1.02 [facility] Comment on above: The validity of the calculated GFR & GFRAA in patients over 70 years has not been determined. Clinical correlation is essential. Serum or plasma urea nitroge n measurement (mass/volume)Ordered By: Balwinder Alves on 09-14-2023 Urea nitrogen [Mass/Vol] 6 mg/dL 7-18 [facility] Thin prep Papanicolaou smear with manual screeningOrdered By: Balwinder Alves on 09-14-2023 Thin prep Papanicolaou smear with manual screening 5 5-15 [facility] XR ANKLE 3+ VIEWS LEFTon XR [...] the lateral malleolar fracture site. Normal [facility] XR FOOT 3+ VIEWS LEFTon 09-04 [...] the lateral malleolar fracture site. Normal [facility] 36on 09-03-2023 36 Left distal fibula f x doi 07/02/23 she is in a boot. [place] be seen in [place] or [place]. No wads Normal [facility] 36on 09-02-2023 36 Gareth an RN at [facility] called [phone] ext [phone], he states that they just got Gumaro from [place] and they are looking for her to [...] today and then works again tomorrow. Normal [place] [address]on 07-17-2023 36 LVM to schedule with Dr. Ureña on Thursday at 1pm in [facility] or 9am in [place] if not already double booked. Normal [facility] .Auto DiffOrdered By: SYSTEM SYSTEM on 07-04-2023 Basophil, Absolute 0.0 103/mcL Normal 0.0-0.2 AO Wo rkflow SS Comment on above: Performed By: #### L IPID, ADIFF, ANEU, CMP, CBC, GFR #### Varun [address] [address] Basophils/100 WBC (Bld) 0.4 % Normal 0.0-2.5 A O Workflow SS Comment on above: Performed By: #### L IPID, ADIFF, ANEU, CMP, CBC, GFR #### [address] [address] Eosinophil, Absolute 0.4 103/mcL Normal 0.0-0.4 AO Workflow SS Comment on above: Performed By: #### L IPID, ADIFF, ANEU, CMP, CBC, GFR #### [address] [address] Eosinophils/100 WBC (Bld) 6.9 % Normal 0.0-7.0 AO Workflow SS Comment on above: Performed By: #### L IPID, ADIFF, ANEU, CMP, CBC, GFR #### [address] [address] Lymphocyte, Absolute 1.7 103/mcL Normal 0.8-3.9 AO Workflow SS Comment on above: Performed By: #### L IPID, ADIFF, ANEU, CMP, CBC, GFR #### [address] [address] Lymphocytes/100 WBC (Bld) 27.3 % Normal 10.0-50.0 AO Workflow SS Comment on above: Performed By: #### L IPID, ADIFF, ANEU, CMP, CBC, GFR #### [address] [address] Monocyte, Absolute 0.4 103/mcL Normal 0.2-1.0 AO Wo rkflow SS Comment on above: Performed By: #### L IPID, ADIFF, ANEU, CMP, CBC, GFR #### [address] [address] Monocytes/100 WBC (Bld) 6.4 % Normal 1.7-13.0 A O Workflow SS Comment on above: Performed By: #### L IPID, ADIFF, ANEU, CMP, CBC, GFR #### [address] [address] Neutrophils/100 WBC (Bld) 59.0 % Normal 37.0-80.0 AO Workflow SS Comment on above: Performed By: #### L IPID, ADIFF, ANEU, CMP, CBC, GFR #### [address] [address] .GFRon 07-04-2023 GFR 93 ml/min/1.73sqm Normal [facility] ([place]) Comment on above: Result Comment: GFR Population [...] IPID, ADIFF, ANEU, CMP, CBC, GFR #### [address] [address] GFR Non- 77 ml/min/1.73sqm Normal [facility] ([place]) Comment on above: Result Comment: GFR Population [...] IPID, ADIFF, ANEU, CMP, CBC, GFR #### [address] [address] .NEUABSOrdered By: SYSTEM SY STEM on 07-04-2023 Neutrophil, Absolute 3.7 103/mcL Normal 2.9-6.2 AO Workflow SS Comment on above: Performed By: #### L IPID, ADIFF, ANEU, CMP, CBC, GFR #### [address] [address] BMPon 07-04-2023 BUN/Creatinine Ratio 14 ratio Normal 7-27 [facility] ([place]) Comment on above: Performed By: #### L IPID, ADIFF, ANEU, CMP, CBC, GFR #### [place] [id number] BMPOrdered By: SYSTEM SYSTEM on 07-04-2023 Calcium [Mass/Vol] 8.1 mg/dL Low 8.4-10.2 AO ADM SS Comment on above: Performed By: #### L IPID, ADIFF, ANEU, CMP, CBC, GFR #### [address] [address] Chloride [Moles/Vol] 104 mmol/L Normal 98-107 AO A DM SS Comment on above: Performed By: #### L IPID, ADIFF, ANEU, CMP, CBC, GFR #### [address] [address] CO2 [Moles/Vol] 29 mmol/L Normal 23-31 AO ADM SS Comment on above: Performed By: #### L IPID, ADIFF, ANEU, CMP, CBC, GFR #### [address] [address] Creatinine [Mass/Vol] 0.73 mg/dL Normal 0.55-1.02 AO ADM SS Comment on above: Performed By: #### L IPID, ADIFF, ANEU, CMP, CBC, GFR #### [address] [address] Electrolyte Balance 6.0 mEq/L Normal 4.0-15.0 AO AD M SS Comment on above: Performed By: #### L IPID, ADIFF, ANEU, CMP, CBC, GFR #### [address] [address] Glucose [Mass/Vol] 145 mg/dL High 83-110 AO ADM SS Comment on above: Performed By: #### L IPID, ADIFF, ANEU, CMP, CBC, GFR #### [place] [address] Potassium [Moles/Vol] 4.9 mmol/L Normal 3.5-5.1 AO ADM SS Comment on above: Performed By: #### L IPID, ADIFF, ANEU, CMP, CBC, GFR #### [place] [address] Sodium [Moles/Vol] 139 mmol/L Normal 136-145 AO ADM SS Comment on above: Performed By: #### L IPID, ADIFF, ANEU, CMP, CBC, GFR #### [place] [address] Urea nitrogen [Mass/Vol] 10 mg/dL Normal 7-18 AO ADM SS Comment on above: Performed By: #### L IPID, ADIFF, ANEU, CMP, CBC, GFR #### [place] [address] CBCOrdered By: SYSTEM SYSTEM on 07-04-2023 Erythrocyte distribution width (RBC) [Ratio] 14.2 % Normal 11.5-14.5 AO Workflow SS Comment on above: Performed By: #### L IPID, ADIFF, ANEU, CMP, CBC, GFR #### [place] [address] Hematocrit (Bld) [Volume fraction] 35.4 % Low 37.0-47.0 AO Workflow SS Comment on above: Performed By: #### L IPID, ADIFF, ANEU, CMP, CBC, GFR #### [place] [address] MCH (RBC) [Entitic mass] 28.7 pg Normal 27.0-31.2 AO Workflow SS Comment on above: Performed By: #### L IPID, ADIFF, ANEU, CMP, CBC, GFR #### [place] [address] MCHC 32.4 G/dL Low 33.0-37.0 AO Workflow SS Comment on above: Performed By: #### L IPID, ADIFF, ANEU, CMP, CBC, GFR #### [address] [address] MCV (RBC) [Entitic vol] 88.6 fL Normal 80.0-94.0 A O Workflow SS Comment on above: Performed By: #### L IPID, ADIFF, ANEU, CMP, CBC, GFR #### [place] [id number] [place], [place] [address] Platelet mean volume (Bld) [Entitic vol] 6.5 fL Low 7.4-10.4 AO Workflow SS Comment on above: Performed By: #### L IPID, ADIFF, ANEU, CMP, CBC, GFR #### [address] [address] CBCon 07-04-2023 Hgb 11.4 G/dL Low 12.0-16.0 [facility] ([place]) Comment on above: Performed By: #### L IPID, ADIFF, ANEU, CMP, CBC, GFR #### [address] [address] Platelet 165 10 3/mcL Normal 130-400 [facility] ([place]) Comment on above: Performed By: #### L IPID, ADIFF, ANEU, CMP, CBC, GFR #### [address] [address] RBC 3.99 10 6/mcL Low 4.20-5.40 [facility] ([place]) Comment on above: Performed By: #### L IPID, ADIFF, ANEU, CMP, CBC, GFR #### [address] [address] WBC 6.3 10 3/mcL Normal 4.6-10.8 [facility] ([place]) Comment on above: Performed By: #### L IPID, ADIFF, ANEU, CMP, CBC, GFR #### [address] [address] LABORATORYOrdered By: Darwin Diaz on 07-04-2023 Blood Glucose Testing Reason Routine (07/04/23 4:36 PM) [facility] Work Phone: Glucose [Mass/Vol] 125 mg/dL Invalid Interpretation Code 82 - 115 mg/dL [facility] Work Phone: Blood Glucose Testing Reason Routine (07/04/23 10:38 AM) [facility] Work Phone: LABORATORYOrdered By: Loretta Mejia on 07-04-2023 Glucose [Mass/Vol] 140 mg/dL Invalid Interpretation Code 82 - 115 mg/dL [facility] Work Phone: Glucose [Mass/Vol] 139 mg/dL Invalid Interpretation Code 82 - 115 mg/dL [facility] Work Phone: LABORATORYOrdered By: SYSTEM SYSTEM on [...] IPID, ADIFF, ANEU, CMP, CBC, GFR #### [address] [address] .Auto Diffon 07-03-2023 Basophil, Absolute 0.0 10 3/mcL Normal 0.0-0.2 [facility] ([place]) Comment on above: Performed By: #### L IPID, ADIFF, ANEU, CMP, CBC, GFR #### [address] [address] Basophils/100 WBC (Bld) 0.5 % Normal 0.0-2.5 A [facility] ([place]) Comment on above: Performed By: #### L IPID, ADIFF, ANEU, CMP, CBC, GFR #### [address] [address] Eosinophil, Absolute 0.4 10 3/mcL Normal 0.0-0.4 [facility] ([place]) Comment on above: Performed By: #### L IPID, ADIFF, ANEU, CMP, CBC, GFR #### [address] [address] Eosinophils/100 WBC (Bld) 6.7 % Normal 0.0-7.0 [facility] ([place]) Comment on above: Performed By: #### L IPID, ADIFF, ANEU, CMP, CBC, GFR #### [address] [address] Lymphocyte, Absolute 1.8 10 3/mcL Normal 0.8-3.9 [facility] ([place]) Comment on above: Performed By: #### L IPID, ADIFF, ANEU, CMP, CBC, GFR #### [address] [address] Lymphocytes/100 WBC (Bld) 31.4 % Normal 10.0-50.0 [facility] ([place]) Comment on above: Performed By: #### L IPID, ADIFF, ANEU, CMP, CBC, GFR #### [address] [address] Monocyte, Absolute 0.4 10 3/mcL Normal 0.2-1.0 [facility] ([place]) Comment on above: Performed By: #### L IPID, ADIFF, ANEU, CMP, CBC, GFR #### [address] [address] Monocytes/100 WBC (Bld) 6.4 % Normal 1.7-13.0 A [facility] ([place]) Comment on above: Performed By: #### L IPID, ADIFF, ANEU, CMP, CBC, GFR #### [address] [address] Neutrophils/100 WBC (Bld) 55.0 % Normal 37.0-80.0 [facility] ([place]) Comment on above: Performed By: #### L IPID, ADIFF, ANEU, CMP, CBC, GFR #### [address] [address] .GFRon 07-03-2023 GFR 92 ml/min/1.73sqm Normal [facility] ([place]) Comment on above: Result Comment: GFR Population [...] IPID, ADIFF, ANEU, CMP, CBC, GFR #### [address] [address] GFR Non- 76 ml/min/1.73sqm Normal [facility] ([place]) Comment on above: Result Comment: GFR Population [...] IPID, ADIFF, ANEU, CMP, CBC, GFR #### [address] [address] .NEUABSon 07-03-2023 Neutrophil, Absolute 3.2 10 3/mcL Normal 2.9-6.2 [facility] ([place]) Comment on above: Performed By: #### L IPID, ADIFF, ANEU, CMP, CBC, GFR #### [address] [address] BMPon 07-03-2023 BUN/Creatinine Ratio 11 ratio Normal 7-27 [facility] ([place]) Comment on above: Performed By: #### L IPID, ADIFF, ANEU, CMP, CBC, GFR #### [address] [address] Calcium [Mass/Vol] 8.4 mg/dL Normal 8.4-10.2 [facility] ([place]) Comment on above: Performed By: #### L IPID, ADIFF, ANEU, CMP, CBC, GFR #### [address] [address] Chloride [Moles/Vol] 103 mmol/L Normal 98-107 [facility] ([place]) Comment on above: Performed By: #### L IPID, ADIFF, ANEU, CMP, CBC, GFR #### [address] [address] CO2 [Moles/Vol] 31 mmol/L Normal 23-31 [facility] ([place]) Comment on above: Performed By: #### L IPID, ADIFF, ANEU, CMP, CBC, GFR #### [address] [address] Creatinine [Mass/Vol] 0.74 mg/dL Normal 0.55-1.02 [facility] ([place]) Comment on above: Performed By: #### L IPID, ADIFF, ANEU, CMP, CBC, GFR #### [address] [address] Electrolyte Balance 6.0 mEq/L Normal 4.0-15.0 [facility] ([place]) Comment on above: Performed By: #### L IPID, ADIFF, ANEU, CMP, CBC, GFR #### [address] [address] Glucose [Mass/Vol] 165 mg/dL High 83-110 [facility] ([place]) Comment on above: Performed By: #### L IPID, ADIFF, ANEU, CMP, CBC, GFR #### [address] [address] Potassium [Moles/Vol] 4.6 mmol/L Normal 3.5-5.1 [facility] ([place]) Comment on above: Performed By: #### L IPID, ADIFF, ANEU, CMP, CBC, GFR #### [address] [address] Sodium [Moles/Vol] 140 mmol/L Normal 136-145 [facility] ([place]) Comment on above: Performed By: #### L IPID, ADIFF, ANEU, CMP, CBC, GFR #### [address] [address] Urea nitrogen [Mass/Vol] 8 mg/dL Normal 7-18 [facility] ([place]) Comment on above: Performed By: #### L IPID, ADIFF, ANEU, CMP, CBC, GFR #### [address] [address] CBCon 07-03-2023 Erythrocyte distribution width (RBC) [Ratio] 14.4 % Normal 11.5-14.5 [facility] ([place]) Comment on above: Performed By: #### L IPID, ADIFF, ANEU, CMP, CBC, GFR #### [address] [address] Hematocrit (Bld) [Volume fraction] 36.4 % Low 37.0-47.0 [facility] ([place]) Comment on above: Performed By: #### L IPID, ADIFF, ANEU, CMP, CBC, GFR #### [address] [address] Hgb 11.6 G/dL Low 12.0-16.0 [facility] ([place]) Comment on above: Performed By: #### L IPID, ADIFF, ANEU, CMP, CBC, GFR #### [address] [address] MCH (RBC) [Entitic mass] 28.3 pg Normal 27.0-31.2 [facility] ([place]) Comment on above: Performed By: #### L IPID, ADIFF, ANEU, CMP, CBC, GFR #### [address] [address] MCHC 31.9 G/dL Low 33.0-37.0 [facility] ([place]) Comment on above: Performed By: #### L IPID, ADIFF, ANEU, CMP, CBC, GFR #### [address] [address] MCV (RBC) [Entitic vol] 88.9 fL Normal 80.0-94.0 A [facility] ([place]) Comment on above: Performed By: #### L IPID, ADIFF, ANEU, CMP, CBC, GFR #### [address] [address] Platelet 158 10 3/mcL Normal 130-400 [facility] ([place]) Comment on above: Performed By: #### L IPID, ADIFF, ANEU, CMP, CBC, GFR #### [address] [address] Platelet mean volume (Bld) [Entitic vol] 6.6 fL Low 7.4-10.4 [facility] ([place]) Comment on above: Performed By: #### L IPID, ADIFF, ANEU, CMP, CBC, GFR #### [address] [address] RBC 4.10 10 6/mcL Low 4.20-5.40 [facility] ([place]) Comment on above: Performed By: #### L IPID, ADIFF, ANEU, CMP, CBC, GFR #### [address] [address] WBC 5.8 10 3/mcL Normal 4.6-10.8 [facility] ([place]) Comment on above: Performed By: #### L IPID, ADIFF, ANEU, CMP, CBC, GFR #### [address] [address] LABORATORYOrdered By: Jose Shepard on 07-03-2023 Blood Glucose Testing Reason Routine (07/03/23 9:10 PM) [facility] Work Phone: LABORATORYOrdered By: SYSTEM SYSTEM on [...] 07-03-2023 Magnesium [Mass/Vol] 1.8 mg/dL Normal 1.8-2.4 [facility] ([place]) Comment on above: Performed By: #### L IPID, ADIFF, ANEU, CMP, CBC, GFR #### [address] [address] .Auto Diffon 07-02-2023 Basophil, Absolute 0.0 10 3/mcL Normal 0.0-0.2 [facility] ([place]) Comment on above: Performed By: #### A DIFF, MG, ANEU, GFR, BMP, CBC #### [address] [address] Basophils/100 WBC (Bld) 0.7 % Normal 0.0-2.5 A [facility] ([place]) Comment on above: Performed By: #### A DIFF, MG, ANEU, GFR, BMP, CBC #### [address] [address] Eosinophil, Absolute 0.3 10 3/mcL Normal 0.0-0.4 [facility] ([place]) Comment on above: Performed By: #### A DIFF, MG, ANEU, GFR, BMP, CBC #### [address] [address] Eosinophils/100 WBC (Bld) 5.6 % Normal 0.0-7.0 [facility] ([place]) Comment on above: Performed By: #### A DIFF, MG, ANEU, GFR, BMP, CBC #### [address] [address] Lymphocyte, Absolute 1.8 10 3/mcL Normal 0.8-3.9 [facility] ([place]) Comment on above: Performed By: #### A DIFF, MG, ANEU, GFR, BMP, CBC #### [address] [address] Lymphocytes/100 WBC (Bld) 33.2 % Normal 10.0-50.0 [facility] ([place]) Comment on above: Performed By: #### A DIFF, MG, ANEU, GFR, BMP, CBC #### [address] [address] Monocyte, Absolute 0.4 10 3/mcL Normal 0.2-1.0 [facility] ([place]) Comment on above: Performed By: #### A DIFF, MG, ANEU, GFR, BMP, CBC #### [address] [address] Monocytes/100 WBC (Bld) 7.8 % Normal 1.7-13.0 [facility] ([place]) Comment on above: Performed By: #### A DIFF, MG, ANEU, GFR, BMP, CBC #### [address] [address] Neutrophils/100 WBC (Bld) 52.7 % Normal 37.0-80.0 [facility] ([place]) Comment on above: Performed By: #### A DIFF, MG, ANEU, GFR, BMP, CBC #### [address] [address] .GFRon 07-02-2023 GFR 85 ml/min/1.73sqm Normal [facility] ([place]) Comment on above: Result Comment: GFR Population [...] IPID, ADIFF, ANEU, CMP, CBC, GFR #### [address] [address] GFR Non- 70 ml/min/1.73sqm Normal [facility] ([place]) Comment on above: Result Comment: GFR Population [...] IPID, ADIFF, ANEU, CMP, CBC, GFR #### [address] [address] .NEUABSon 07-02-2023 Neutrophil, Absolute 2.9 10 3/mcL Normal 2.9-6.2 [facility] ([place]) Comment on above: Performed By: #### A DIFF, MG, ANEU, GFR, BMP, CBC #### [address] [address] BMPon 07-02-2023 BUN/Creatinine Ratio 11 ratio Normal 7-27 [facility] ([place]) Comment on above: Performed By: #### A DIFF, MG, ANEU, GFR, BMP, CBC #### [address] [address] Calcium [Mass/Vol] 8.5 mg/dL Normal 8.4-10.2 [facility] ([place]) Comment on above: Performed By: #### A DIFF, MG, ANEU, GFR, BMP, CBC #### [address] [address] Chloride [Moles/Vol] 102 mmol/L Normal 98-107 [facility] ([place]) Comment on above: Performed By: #### A DIFF, MG, ANEU, GFR, BMP, CBC #### [address] [address] CO2 [Moles/Vol] 31 mmol/L Normal 23-31 [facility] ([place]) Comment on above: Performed By: #### A DIFF, MG, ANEU, GFR, BMP, CBC #### [address] [address] Creatinine [Mass/Vol] 0.79 mg/dL Normal 0.55-1.02 [facility] ([place]) Comment on above: Performed By: #### A DIFF, MG, ANEU, GFR, BMP, CBC #### [address] [address] Electrolyte Balance 5.0 mEq/L Normal 4.0-15.0 [facility] ([place]) Comment on above: Performed By: #### A DIFF, MG, ANEU, GFR, BMP, CBC #### [address] [address] Glucose [Mass/Vol] 144 mg/dL High 83-110 [facility] ([place]) Comment on above: Performed By: #### A DIFF, MG, ANEU, GFR, BMP, CBC #### [address] [address] Potassium [Moles/Vol] 3.9 mmol/L Normal 3.5-5.1 [facility] ([place]) Comment on above: Performed By: #### A DIFF, MG, ANEU, GFR, BMP, CBC #### [address] [address] Sodium [Moles/Vol] 138 mmol/L Normal 136-145 [facility] ([place]) Comment on above: Performed By: #### A DIFF, MG, ANEU, GFR, BMP, CBC #### [place] [address] Urea nitrogen [Mass/Vol] 9 mg/dL Normal 7-18 [facility] ([place]) Comment on above: Performed By: #### A DIFF, MG, ANEU, GFR, BMP, CBC #### [place] [id number] CBCon 07-02-2023 Erythrocyte distribution width (RBC) [Ratio] 14.6 % High 11.5-14.5 [facility] ([place]) Comment on above: Performed By: #### A DIFF, MG, ANEU, GFR, BMP, CBC #### [place] [address] Hematocrit (Bld) [Volume fraction] 35.7 % Low 37.0-47.0 [facility] ([place]) Comment on above: Performed By: #### A DIFF, MG, ANEU, GFR, BMP, CBC #### [address] [address] Hgb 11.3 G/dL Low 12.0-16.0 [facility] ([place]) Comment on above: Performed By: #### A DIFF, MG, ANEU, GFR, BMP, CBC #### [address] [address] MCH (RBC) [Entitic mass] 28.1 pg Normal 27.0-31.2 [facility] ([place]) Comment on above: Performed By: #### A DIFF, MG, ANEU, GFR, BMP, CBC #### [place] [id number] MCHC 31.7 G/dL Low 33.0-37.0 [facility] ([place]) Comment on above: Performed By: #### A DIFF, MG, ANEU, GFR, BMP, CBC #### [address] [address] MCV (RBC) [Entitic vol] 88.6 fL Normal 80.0-94.0 A [facility] ([place]) Comment on above: Performed By: #### A DIFF, MG, ANEU, GFR, BMP, CBC #### [address] [address] Platelet 159 10 3/mcL Normal 130-400 [facility] ([place]) Comment on above: Performed By: #### A DIFF, MG, ANEU, GFR, BMP, CBC #### [address] [address] Platelet mean volume (Bld) [Entitic vol] 6.6 fL Low 7.4-10.4 [facility] ([place]) Comment on above: Performed By: #### A DIFF, MG, ANEU, GFR, BMP, CBC #### [address] [address] RBC 4.03 10 6/mcL Low 4.20-5.40 [facility] ([place]) Comment on above: Performed By: #### A DIFF, MG, ANEU, GFR, BMP, CBC #### [address] [address] WBC 5.5 10 3/mcL Normal 4.6-10.8 [facility] ([place]) Comment on above: Performed By: #### A DIFF, MG, ANEU, GFR, BMP, CBC #### [address] [address] LABORATORYOrdered By: SYSTEM SYSTEM on 07-02-2023 Basophil, [...] 07-02-2023 Magnesium [Mass/Vol] 1.7 mg/dL Low 1.8-2.4 [facility] ([place]) Comment on above: Performed By: #### L IPID, ADIFF, ANEU, CMP, CBC, GFR #### [address] [address] .Auto Diffon 07-01-2023 Basophil, Absolute 0.0 10 3/mcL Normal 0.0-0.2 [facility] ([place]) Comment on above: Performed By: #### L IPID, ADIFF, ANEU, CMP, CBC, GFR #### [address] [address] Basophils/100 WBC (Bld) 0.5 % Normal 0.0-2.5 A [facility] ([place]) Comment on above: Performed By: #### L IPID, ADIFF, ANEU, CMP, CBC, GFR #### [address] [address] Eosinophil, Absolute 0.4 10 3/mcL Normal 0.0-0.4 [facility] ([place]) Comment on above: Performed By: #### L IPID, ADIFF, ANEU, CMP, CBC, GFR #### [address] [address] Eosinophils/100 WBC (Bld) 5.7 % Normal 0.0-7.0 [facility] ([place]) Comment on above: Performed By: #### L IPID, ADIFF, ANEU, CMP, CBC, GFR #### [address] [address] Lymphocyte, Absolute 1.9 10 3/mcL Normal 0.8-3.9 [facility] ([place]) Comment on above: Performed By: #### L IPID, ADIFF, ANEU, CMP, CBC, GFR #### [address] [address] Lymphocytes/100 WBC (Bld) 28.0 % Normal 10.0-50.0 [facility] ([place]) Comment on above: Performed By: #### L IPID, ADIFF, ANEU, CMP, CBC, GFR #### [address] [address] Monocyte, Absolute 0.5 10 3/mcL Normal 0.2-1.0 [facility] ([place]) Comment on above: Performed By: #### L IPID, ADIFF, ANEU, CMP, CBC, GFR #### [address] [address] Monocytes/100 WBC (Bld) 6.9 % Normal 1.7-13.0 A [facility] ([place]) Comment on above: Performed By: #### L IPID, ADIFF, ANEU, CMP, CBC, GFR #### [address] [address] Neutrophils/100 WBC (Bld) 58.9 % Normal 37.0-80.0 [facility] ([place]) Comment on above: Performed By: #### L IPID, ADIFF, ANEU, CMP, CBC, GFR #### [address] [address] .GFRon 07-01-2023 GFR 73 ml/min/1.73sqm Normal [facility] ([place]) Comment on above: Result Comment: GFR Population [...] IPID, ADIFF, ANEU, CMP, CBC, GFR #### [address] [address] GFR Non- 60 ml/min/1.73sqm Normal [facility] ([place]) Comment on above: Result Comment: GFR Population [...] IPID, ADIFF, ANEU, CMP, CBC, GFR #### [address] [address] .NEUABSon 07-01-2023 Neutrophil, Absolute 4.1 10 3/mcL Normal 2.9-6.2 [facility] ([place]) Comment on above: Performed By: #### L IPID, ADIFF, ANEU, CMP, CBC, GFR #### [address] [address] BMPon 07-01-2023 BUN/Creatinine Ratio 12 ratio Normal - [facility] ([place]) Comment on above: Performed By: #### L IPID, ADIFF, ANEU, CMP, CBC, GFR #### [address] [address] Calcium [Mass/Vol] 8.5 mg/dL Normal 8.4-10.2 [facility] ([place]) Comment on above: Performed By: #### L IPID, ADIFF, ANEU, CMP, CBC, GFR #### [address] [address] Chloride [Moles/Vol] 103 mmol/L Normal 98-107 [facility] ([place]) Comment on above: Performed By: #### L IPID, ADIFF, ANEU, CMP, CBC, GFR #### [address] [address] CO2 [Moles/Vol] 32 mmol/L High 23-31 [facility] ([place]) Comment on above: Performed By: #### L IPID, ADIFF, ANEU, CMP, CBC, GFR #### [address] [address] Creatinine [Mass/Vol] 0.90 mg/dL Normal 0.55-1.02 [facility] ([place]) Comment on above: Performed By: #### L IPID, ADIFF, ANEU, CMP, CBC, GFR #### [address] [address] Electrolyte Balance 5.0 mEq/L Normal 4.0-15.0 [facility] ([place]) Comment on above: Performed By: #### L IPID, ADIFF, ANEU, CMP, CBC, GFR #### [address] [address] Glucose [Mass/Vol] 138 mg/dL High 83-110 [facility] ([place]) Comment on above: Performed By: #### L IPID, ADIFF, ANEU, CMP, CBC, GFR #### [address] [address] Potassium [Moles/Vol] 4.0 mmol/L Normal 3.5-5.1 [facility] ([place]) Comment on above: Performed By: #### L IPID, ADIFF, ANEU, CMP, CBC, GFR #### [address] [address] Sodium [Moles/Vol] 140 mmol/L Normal 136-145 [facility] ([place]) Comment on above: Performed By: #### L IPID, ADIFF, ANEU, CMP, CBC, GFR #### [place] [address] Urea nitrogen [Mass/Vol] 11 mg/dL Normal 7-18 [facility] ([place]) Comment on above: Performed By: #### L IPID, ADIFF, ANEU, CMP, CBC, GFR #### [place] [address] CBCon 07-01-2023 Erythrocyte distribution width (RBC) [Ratio] 14.6 % High 11.5-14.5 [facility] ([place]) Comment on above: Performed By: #### L IPID, ADIFF, ANEU, CMP, CBC, GFR #### [place] [address] Hematocrit (Bld) [Volume fraction] 36.2 % Low 37.0-47.0 [facility] ([place]) Comment on above: Performed By: #### L IPID, ADIFF, ANEU, CMP, CBC, GFR #### [place] [address] Hgb 11.6 G/dL Low 12.0-16.0 [facility] ([place]) Comment on above: Performed By: #### L IPID, ADIFF, ANEU, CMP, CBC, GFR #### [place] [address] MCH (RBC) [Entitic mass] 28.1 pg Normal 27.0-31.2 [facility] ([place]) Comment on above: Performed By: #### L IPID, ADIFF, ANEU, CMP, CBC, GFR #### [place] [address] MCHC 32.0 G/dL Low 33.0-37.0 [facility] ([place]) Comment on above: Performed By: #### L IPID, ADIFF, ANEU, CMP, CBC, GFR #### [place] [address] MCV (RBC) [Entitic vol] 87.8 fL Normal 80.0-94.0 A [facility] ([place]) Comment on above: Performed By: #### L IPID, ADIFF, ANEU, CMP, CBC, GFR #### [address] [address] Platelet 170 10 3/mcL Normal 130-400 [facility] ([place]) Comment on above: Performed By: #### L IPID, ADIFF, ANEU, CMP, CBC, GFR #### [address] [address] Platelet mean volume (Bld) [Entitic vol] 6.4 fL Low 7.4-10.4 [facility] ([place]) Comment on above: Performed By: #### L IPID, ADIFF, ANEU, CMP, CBC, GFR #### [address] [address] RBC 4.12 10 6/mcL Low 4.20-5.40 [facility] ([place]) Comment on above: Performed By: #### L IPID, ADIFF, ANEU, CMP, CBC, GFR #### [address] [address] WBC 6.9 10 3/mcL Normal 4.6-10.8 [facility] ([place]) Comment on above: Performed By: #### L IPID, ADIFF, ANEU, CMP, CBC, GFR #### [address] [address] MGon 07-01-2023 Magnesium [Mass/Vol] 1.5 mg/dL Low 1.8-2.4 [facility] ([place]) Comment on above: Performed By: #### L IPID, ADIFF, ANEU, CMP, CBC, GFR #### [address] [address] .Auto Diffon 06-30-2023 Basophil, Absolute 0.0 10 3/mcL Normal 0.0-0.2 [facility] ([place]) Comment on above: Performed By: #### L IPID, ADIFF, ANEU, CMP, CBC, GFR #### [address] [address] Basophils/100 WBC (Bld) 0.4 % Normal 0.0-2.5 A [facility] ([place]) Comment on above: Performed By: #### L IPID, ADIFF, ANEU, CMP, CBC, GFR #### [address] [address] Eosinophil, Absolute 0.5 10 3/mcL High 0.0-0.4 [facility] ([place]) Comment on above: Performed By: #### L IPID, ADIFF, ANEU, CMP, CBC, GFR #### [address] [address] Eosinophils/100 WBC (Bld) 4.7 % Normal 0.0-7.0 [facility] ([place]) Comment on above: Performed By: #### L IPID, ADIFF, ANEU, CMP, CBC, GFR #### [address] [address] Lymphocyte, Absolute 1.7 10 3/mcL Normal 0.8-3.9 [facility] ([place]) Comment on above: Performed By: #### L IPID, ADIFF, ANEU, CMP, CBC, GFR #### [address] [address] Lymphocytes/100 WBC (Bld) 17.7 % Normal 10.0-50.0 [facility] ([place]) Comment on above: Performed By: #### L IPID, ADIFF, ANEU, CMP, CBC, GFR #### [address] [address] Monocyte, Absolute 0.5 10 3/mcL Normal 0.2-1.0 [facility] ([place]) Comment on above: Performed By: #### L IPID, ADIFF, ANEU, CMP, CBC, GFR #### [address] [address] Monocytes/100 WBC (Bld) 5.4 % Normal 1.7-13.0 A [facility] ([place]) Comment on above: Performed By: #### L IPID, ADIFF, ANEU, CMP, CBC, GFR #### [address] [address] Neutrophils/100 WBC (Bld) 71.8 % Normal 37.0-80.0 [facility] ([place]) Comment on above: Performed By: #### L IPID, ADIFF, ANEU, CMP, CBC, GFR #### [address] [address] .GFRon 06-30-2023 GFR 75 ml/min/1.73sqm Normal [facility] ([place]) Comment on above: Result Comment: GFR Population [...] IPID, ADIFF, ANEU, CMP, CBC, GFR #### [address] [address] GFR Non- 62 ml/min/1.73sqm Normal [facility] ([place]) Comment on above: Result Comment: GFR Population [...] IPID, ADIFF, ANEU, CMP, CBC, GFR #### [address] [address] .MDWon 06-30-2023 Monocyte Distribution Width 17.82 Normal 0.00-20.00 [facility] ([place]) Comment on above: Result Comment: For ED adult patients suspected of sepsis, MDW<=20.0 does not rule out sepsis or risk of sepsis Performed By: #### L IPID, ADIFF, ANEU, CMP, CBC, GFR #### [address] [address] .NEUABSon 06-30-2023 Neutrophil, Absolute 7.1 10 3/mcL High 2.9-6.2 [facility] ([place]) Comment on above: Performed By: #### L IPID, ADIFF, ANEU, CMP, CBC, GFR #### [address] [address] BMPon 06-30-2023 BUN/Creatinine Ratio 10 ratio Normal 7-27 [facility]) Comment on above: Performed By: #### L IPID, ADIFF, ANEU, CMP, CBC, GFR #### [address] [address] Calcium [Mass/Vol] 9.0 mg/dL Normal 8.4-10.2 [facility] ([place]) Comment on above: Performed By: #### L IPID, ADIFF, ANEU, CMP, CBC, GFR #### [address] [address] Chloride [Moles/Vol] 100 mmol/L Normal 98-107 [facility] ([place]) Comment on above: Performed By: #### L IPID, ADIFF, ANEU, CMP, CBC, GFR #### [address] [address] CO2 [Moles/Vol] 33 mmol/L High 23-31 [facility] ([place]) Comment on above: Performed By: #### L IPID, ADIFF, ANEU, CMP, CBC, GFR #### [address] [address] Creatinine [Mass/Vol] 0.88 mg/dL Normal 0.55-1.02 [facility] ([place]) Comment on above: Performed By: #### L IPID, ADIFF, ANEU, CMP, CBC, GFR #### [address] [address] Electrolyte Balance 6.0 mEq/L Normal 4.0-15.0 [facility] ([place]) Comment on above: Performed By: #### L IPID, ADIFF, ANEU, CMP, CBC, GFR #### [address] [address] Glucose [Mass/Vol] 147 mg/dL High 83-110 [facility] ([place]) Comment on above: Performed By: #### L IPID, ADIFF, ANEU, CMP, CBC, GFR #### [address] [address] Potassium [Moles/Vol] 3.8 mmol/L Normal 3.5-5.1 [facility] ([place]) Comment on above: Performed By: #### L IPID, ADIFF, ANEU, CMP, CBC, GFR #### [address] [address] Sodium [Moles/Vol] 139 mmol/L Normal 136-145 [facility] ([place]) Comment on above: Performed By: #### L IPID, ADIFF, ANEU, CMP, CBC, GFR #### [address] [address] Urea nitrogen [Mass/Vol] 9 mg/dL Normal 7-18 [facility] ([place]) Comment on above: Performed By: #### L IPID, ADIFF, ANEU, CMP, CBC, GFR #### [address] [address] [facility]Con 06-30-2023 Erythrocyte distribution width (RBC) [Ratio] 14.6 % High 11.5-14.5 [facility] ([place]) Comment on above: Performed By: #### L IPID, ADIFF, ANEU, CMP, CBC, GFR #### [address] [address] Hematocrit (Bld) [Volume fraction] 42.0 % Normal 37.0-47.0 [facility] ([place]) Comment on above: Performed By: #### L IPID, ADIFF, ANEU, CMP, CBC, GFR #### [place] [id number] Hgb 13.4 G/dL Normal 12.0-16.0 [facility] ([place]) Comment on above: Performed By: #### L IPID, ADIFF, ANEU, CMP, CBC, GFR #### [address] [address] MCH (RBC) [Entitic mass] 28.4 pg Normal 27.0-31.2 [facility] ([place]) Comment on above: Performed By: #### L IPID, ADIFF, ANEU, CMP, CBC, GFR #### [address] [address] MCHC 32.0 G/dL Low 33.0-37.0 [facility] ([place]) Comment on above: Performed By: #### L IPID, ADIFF, ANEU, CMP, CBC, GFR #### [address] [address] MCV (RBC) [Entitic vol] 88.5 fL Normal 80.0-94.0 [facility] ([place]) Comment on above: Performed By: #### L IPID, ADIFF, ANEU, CMP, CBC, GFR #### [address] [address] Platelet 188 10 3/mcL Normal 130-400 [facility] ([place]) Comment on above: Performed By: #### L IPID, ADIFF, ANEU, CMP, CBC, GFR #### [address] [address] Platelet mean volume (Bld) [Entitic vol] 6.2 fL Low 7.4-10.4 [facility] ([place]) Comment on above: Performed By: #### L IPID, ADIFF, ANEU, CMP, CBC, GFR #### [address] [address] RBC 4.74 10 6/mcL Normal 4.20-5.40 [facility]) Comment on above: Performed By: #### L IPID, ADIFF, ANEU, CMP, CBC, GFR #### [address] [address] WBC 9.9 10 3/mcL Normal 4.6-10.8 [facility] ([place]) Comment on above: Performed By: #### L IPID, ADIFF, ANEU, CMP, CBC, GFR #### [address] [address] LABORATORYOrdered By: SYSTEM SYSTEM on 06-30-2023 Monocyte distribution width Auto (Bld) [Entitic vol] 17.82 1 Invalid Interpretation Code 0.00 - 20.00 AO Workflow SS Comment on above: Result Comment: For ED adult patients suspected of sepsis, MDW<=20.0 does not rule out sepsis or risk of sepsis [facility] 06-30-2023 U Creatinine 90.7 mg/dL Normal 28.0-117.0 [facility] ([place]) Comment on above: Performed By: #### L IPID, ADIFF, ANEU, CMP, CBC, GFR #### [address] [address] U Microalb 1927 mcg/dL Normal [facility] ([place]) Comment on above: Performed By: #### L IPID, ADIFF, ANEU, CMP, CBC, GFR #### [address] [address] U Ratio Alb/Cre 21 mcg/mg Normal 0-30 [facility] hospital) Comment on above: Performed By: #### L IPID, ADIFF, ANEU, CMP, CBC, GFR #### [address] [address] XR ANKLE AND FOOT 6 VIEWS LE [...] 06/30/2023 4:00:26 PM Ordering Provider: VICENTE [facility] ([place]) XR KNEE 1 OR 2 VIEWS LEFTon [...] 06/30/2023 4:01:46 PM Ordering Provider: VICENTE Valadez [facility] ([place]) .Auto Diffon 02-05-2023 Basophil, Absolute 0.1 10 3/mcL Normal 0.0-0.2 [facility] ([place]) Comment on above: Performed By: #### L IPID, ADIFF, ANEU, CMP, CBC, GFR #### [address] [address] Basophils/100 WBC (Bld) 0.7 % Normal 0.0-2.5 A [facility] ([place]) Comment on above: Performed By: #### L IPID, ADIFF, ANEU, CMP, CBC, GFR #### [address] [address] Eosinophil, Absolute 0.7 10 3/mcL High 0.0-0.4 [facility] ([place]) Comment on above: Performed By: #### L IPID, ADIFF, ANEU, CMP, CBC, GFR #### [address] [address] Eosinophils/100 WBC (Bld) 8.8 % High 0.0-7.0 [facility] ([place]) Comment on above: Performed By: #### L IPID, ADIFF, ANEU, CMP, CBC, GFR #### [address] [address] Lymphocyte, Absolute 2.8 10 3/mcL Normal 0.8-3.9 [facility] ([place]) Comment on above: Performed By: #### L IPID, ADIFF, ANEU, CMP, CBC, GFR #### [address] [address] Lymphocytes/100 WBC (Bld) 34.0 % Normal 10.0-50.0 [facility] ([place]) Comment on above: Performed By: #### L IPID, ADIFF, ANEU, CMP, CBC, GFR #### [address] [address] Monocyte, Absolute 0.6 10 3/mcL Normal 0.2-1.0 [facility] ([place]) Comment on above: Performed By: #### L IPID, ADIFF, ANEU, CMP, CBC, GFR #### [address] [address] Monocytes/100 WBC (Bld) 7.3 % Normal 1.7-13.0 A [facility] ([place]) Comment on above: Performed By: #### L IPID, ADIFF, ANEU, CMP, CBC, GFR #### [address] [address] Neutrophils/100 WBC (Bld) 49.2 % Normal 37.0-80.0 [facility] ([place]) Comment on above: Performed By: #### L IPID, ADIFF, ANEU, CMP, CBC, GFR #### [address] [address] .GFRon 02-05-2023 GFR Non- 63 ml/min/1.73sqm Normal [facility] ([place]) Comment on above: Result Comment: GFR Population [...] IPID, ADIFF, ANEU, CMP, CBC, GFR #### [address] [address] GFR 76 ml/min/1.73sqm Normal [facility] ([place]) Comment on above: Result Comment: GFR Population [...] IPID, ADIFF, ANEU, CMP, CBC, GFR #### [place] [id number] .NEUABSon 02-05-2023 Neutrophil, Absolute 4.1 10 3/mcL Normal 2.9-6.2 [facility] ([place]) Comment on above: Performed By: #### L IPID, ADIFF, ANEU, CMP, CBC, GFR #### [place] [address] CBCon 02-05-2023 Erythrocyte distribution width (RBC) [Ratio] 14.1 % Normal 11.5-14.5 [facility] ([place]) Comment on above: Performed By: #### L IPID, ADIFF, ANEU, CMP, CBC, GFR #### [place] [address] Hematocrit (Bld) [Volume fraction] 45.2 % Normal 37.0-47.0 [facility] ([place]) Comment on above: Performed By: #### L IPID, ADIFF, ANEU, CMP, CBC, GFR #### [place] [id number] Hgb 14.4 G/dL Normal 12.0-16.0 [facility] ([place]) Comment on above: Performed By: #### L IPID, ADIFF, ANEU, CMP, CBC, GFR #### [place] [id number] MCH (RBC) [Entitic mass] 26.9 pg Low 27.0-31.2 [facility] ([place]) Comment on above: Performed By: #### L IPID, ADIFF, ANEU, CMP, CBC, GFR #### [address] [address] MCHC 31.8 G/dL Low 33.0-37.0 [facility] ([place]) Comment on above: Performed By: #### L IPID, ADIFF, ANEU, CMP, CBC, GFR #### [address] [address] MCV (RBC) [Entitic vol] 84.7 fL Normal 80.0-94.0 A [facility] ([place]) Comment on above: Performed By: #### L IPID, ADIFF, ANEU, CMP, CBC, GFR #### [address] [address] Platelet 237 10 3/mcL Normal 130-400 [facility] ([place]) Comment on above: Performed By: #### L IPID, ADIFF, ANEU, CMP, CBC, GFR #### [place] [address] Platelet mean volume (Bld) [Entitic vol] 6.5 fL Low 7.4-10.4 [facility] ([place]) Comment on above: Performed By: #### L IPID, ADIFF, ANEU, CMP, CBC, GFR #### [place] [id number] RBC 5.34 10 6/mcL Normal 4.20-5.40 [facility] ([place]) Comment on above: Performed By: #### L IPID, ADIFF, ANEU, CMP, CBC, GFR #### [address] [address] WBC 8.3 10 3/mcL Normal 4.6-10.8 [facility] ([place]) Comment on above: Performed By: #### L IPID, ADIFF, ANEU, CMP, CBC, GFR #### [address] [address] CMPon 02-05-2023 Albumin Level 3.9 G/dL Normal 3.4-4.8 [facility] ([place]) Comment on above: Performed By: #### L IPID, ADIFF, ANEU, CMP, CBC, GFR #### [address] [address] Albumin/Globulin [Mass ratio] 1.3 {ratio} Normal 1.1-2.5 [facility] ([place]) Comment on above: Performed By: #### L IPID, ADIFF, ANEU, CMP, CBC, GFR #### [address] [address] ALP [Catalytic activity/Vol] 65 U/L Normal 40-135 [facility] ([place]) Comment on above: Performed By: #### L IPID, ADIFF, ANEU, CMP, CBC, GFR #### [address] [address] ALT [Catalytic activity/Vol] 20 U/L Normal 14-59 [facility] ([place]) Comment on above: Performed By: #### L IPID, ADIFF, ANEU, CMP, CBC, GFR #### [address] [address] AST [Catalytic activity/Vol] 19 U/L Normal 10-40 [facility] ([place]) Comment on above: Performed By: #### L IPID, ADIFF, ANEU, CMP, CBC, GFR #### [address] [address] Bili Total 0.7 mg/dL Normal 0.2-1.0 [facility] ([place]) Comment on above: Result Comment: Use of this assay is not recommended for patients undergoing treatment with eltrombopag due to the potential for falsely elevated results. Performed By: #### L IPID, ADIFF, ANEU, CMP, CBC, GFR #### [address] [address] BUN/Creatinine Ratio 14 ratio Normal 7-27 [facility] ([place]) Comment on above: Performed By: #### L IPID, ADIFF, ANEU, CMP, CBC, GFR #### [address] [address] Calcium [Mass/Vol] 10.1 mg/dL Normal 8.4-10.2 [facility] ([place]) Comment on above: Performed By: #### L IPID, ADIFF, ANEU, CMP, CBC, GFR #### [address] [address] Chloride [Moles/Vol] 100 mmol/L Normal 98-107 [facility] ([place]) Comment on above: Performed By: #### L IPID, ADIFF, ANEU, CMP, CBC, GFR #### [place] [address] CO2 [Moles/Vol] 33 mmol/L High 23-31 [facility] ([place]) Comment on above: Performed By: #### L IPID, ADIFF, ANEU, CMP, CBC, GFR #### [address] [address] Creatinine [Mass/Vol] 0.87 mg/dL Normal 0.55-1.02 [facility] ([place]) Comment on above: Performed By: #### L IPID, ADIFF, ANEU, CMP, CBC, GFR #### [address] [address] Electrolyte Balance 8.0 mEq/L Normal 4.0-15.0 [facility] ([place]) Comment on above: Performed By: #### L IPID, ADIFF, ANEU, CMP, CBC, GFR #### [address] [address] Globulin 3.0 G/dL Normal [facility] ([place]) Comment on above: Performed By: #### L IPID, ADIFF, ANEU, CMP, CBC, GFR #### [address] [address] Glucose [Mass/Vol] 127 mg/dL High 83-110 [facility] ([place]) Comment on above: Performed By: #### L IPID, ADIFF, ANEU, CMP, CBC, GFR #### [address] [address] Potassium [Moles/Vol] 4.7 mmol/L Normal 3.5-5.1 [facility] ([place]) Comment on above: Performed By: #### L IPID, ADIFF, ANEU, CMP, CBC, GFR #### [place] [address] [place], [place] [address] Sodium [Moles/Vol] 141 mmol/L Normal 136-145 [facility] ([place]) Comment on above: Performed By: #### L IPID, ADIFF, ANEU, CMP, CBC, GFR #### [address] [address] Total Protein 6.9 G/dL Normal 6.4-8.2 [facility] ([place]) Comment on above: Performed By: #### L IPID, ADIFF, ANEU, CMP, CBC, GFR #### [place] [phone] [place], [place] [address] Urea nitrogen [Mass/Vol] 12 mg/dL Normal 7-18 [facility] ([place]) Comment on above: Performed By: #### L IPID, ADIFF, ANEU, CMP, CBC, GFR #### [address] [address] LABORATORYOrdered By: SYSTEM SYSTEM on 02-05-2023 Albumin [...] [Mass/Vol] 147 mg/dL Normal 0-200 [facility] ([place]) Comment on above: Result Comment: Chol esterol Reference Interval: Less than 200 Desirable 200-239 Borderline high risk 240 and above High risk Performed By: #### L IPID, ADIFF, ANEU, CMP, CBC, GFR #### [place] [phone] [place], [place] [address] Cholesterol in HDL [Mass/Vol] 59 mg/dL Normal 40-60 [facility] ([place]) Comment on above: Performed By: #### L IPID, ADIFF, ANEU, CMP, CBC, GFR #### [place] [phone] [place], [place] [address] Cholesterol in LDL [Mass/Vol] 54 mg/dL Normal 0-130 [facility] ([place]) Comment on above: Performed By: #### L IPID, ADIFF, ANEU, CMP, CBC, GFR #### [place] [id number] [place], [place] [address] Triglyceride [Mass/Vol] 172 mg/dL High 0-150 A [facility] ([place]) Comment on above: Result Comment: Trig lyceride Reference Interval: Less than 150 Normal 150-199 Borderline high risk 200-499 High risk 500 or higher Very high risk Performed By: #### L IPID, ADIFF, ANEU, CMP, CBC, GFR #### [place] [phone] [place], [place] [address] LABORATORYOrdered By: Karli Benites on 01-29-2022 Albumin [...] Body temperature 97.3 [degF] Balwinder Alves MD [facility] 07-06-2025 15:25-0400 Diastolic blood pressure 79 mm[Hg] Balwinder Alves MD [facility] 07-06-2025 15:25-0400 Heart rate 72 /min Balwinder Alves MD [facility] 07-06-2025 15:25-0400 Respiratory rate 16 /min Balwinder Alves MD [facility] 07-06-2025 15:25-0400 SaO2% (BldA) [Mass fraction] 93 % Balwinder Alves MD [facility] 07-06-2025 15:25-0400 Systolic blood pressure 165 mm[Hg] Balwinder Alves MD [facility] 07-06-2025 14:45-0400 Inhaled oxygen flow rate 2 L/min Balwinder Alves MD [facility] 07-06-2025 11:240400 Body height 175.26 cm Balwinder Alves MD [facility] 07-06-2025 11:240400 Body mass index (BMI) [Ratio] 41.3 kg/m2 Balwinder Alves MD [facility] 07-06-2025 11:240400 Body weight 127 kg Balwinder Alves MD [facility] 06-30-2025 10:0400 Body height 175.26 cm Balwinder Alves MD [facility] 06-30-2025 10:21-0400 Body mass index (BMI) [Ratio] 41 kg/m2 Balwinder Alves MD [facility] 06-30-2025 10:21-0400 Body temperature 97.9 [degF] Balwinder Alves MD [facility] 06-30-2025 10:21-0400 Body weight 126.09 kg Balwinder Alves MD [facility] 06-30-2025 10:21-0400 Diastolic blood pressure 78 mm[Hg] Balwinder Alves MD [facility] 06-30-2025 10:21-0400 Heart rate 78 /min Balwinder Alves MD [facility] 06-30-2025 10:21-0400 Systolic blood pressure 124 mm[Hg] Balwinder Alves MD [facility] 05-17-2025 10:04-0400 Body height 175.26 cm Balwinder Alves MD [facility] 05-17-2025 10:04-0400 Body mass index (BMI) [Ratio] 39.9 kg/m2 Balwinder Alves MD [facility] 05-17-2025 10:04-0400 Body weight 122.46 kg Balwinder Alves MD [facility] 05-17-2025 10:04-0400 Diastolic blood pressure 90 mm[Hg] Balwinder Alves MD [facility] 05-17-2025 10:04-0400 Heart rate 76 /min Balwinder Alves MD [facility] 05-17-2025 10:04-0400 Systolic blood pressure 150 mm[Hg] Balwinder Alves MD [facility] 02-06-2024 20:00-0400 Body temperature 98 [degF] [facility] 02-06-2024 20:00-0400 Diastolic blood pressure 73 mm[Hg] [facility] 02-06-2024 20:00-0400 Heart rate 68 /min [facility] 02-06-2024 20:00-0400 Respiratory rate 18 /min [facility] 02-06-2024 20:00-0400 SaO2% (BldA) [Mass fraction] 97 % [facility] 02-06-2024 20:00-0400 Systolic blood pressure 173 mm[Hg] [facility] 02-06-2024 15:49-0400 Body height 175.26 cm [facility] 02-06-2024 15:49-0400 Body mass index (BMI) [Ratio] 38.9 kg/m2 [facility] 02-06-2024 15:49-0400 Body weight 119.74 kg [facility] 12-09-2023 10:13-0500 Body weight 120.2 kg Tete wiMAN PA Work Phone: [facility] 12-09-2023 10:13-0500 Diastolic blood pressure 66 mm[Hg] Tete wiMAN PA Work Phone: [facility] 12-09-2023 10:13-0500 Heart rate 69 /min Tete wiMAN PA Work Phone: [facility] 12-09-2023 10:13-0500 Systolic blood pressure 190 mm[Hg] Tete [employer] PA Work Phone: [facility] 07-16-2023 10:53-0400 Body height 167.64 cm SAUSAGE LINKER-C Laci Brewer SAUSAGE LINKER Work Phone: [facility] 07-16-2023 10:53-0400 Body mass index (BMI) [Ratio] 45.8 kg/m2 SAUSAGE LINKER-C Laci Brewer SAUSAGE LINKER Work Phone: [facility] 07-16-2023 10:53-0400 Body weight 128.82 kg SAUSAGE LINKER-C Laci Brewer SAUSAGE LINKER Work Phone: [facility] 07-04-2023 19:10-0400 Body temperature 98.24 [degF] ROHAN MCDOWELL APRN-FIELD KILN BURNER [facility] 07-04-2023 19:10-0400 Diastolic Blood Pressure Non-Invasive 46 1 ROHAN CASPERER AGENCY OPERATOR-FIELD KILN BURNER [facility] 07-04-2023 19:10-0400 Heart rate 78 /min ROHAN CASPERER AGENCY OPERATOR-FIELD KILN BURNER [facility] 07-04-2023 19:10-0400 Reason For Taking VItal Signs ROHAN TREMAYNEER AGENCY OPERATOR-FIELD KILN BURNER [facility] 07-04-2023 19:10-0400 Respiratory rate 18 /min ROHAN TREMAYNEER AGENCY OPERATOR-FIELD KILN BURNER [facility] 07-04-2023 19:10-0400 Systolic Blood Pressure Non-Invasive 142 1 ROHAN TREMAYNEER AGENCY OPERATOR-FIELD KILN BURNER [facility] 07-04-2023 16:39-0400 Diastolic Blood Pressure Non-Invasive 60 1 ROHAN KAPPER AGENCY OPERATOR-FIELD KILN BURNER [facility] 07-04-2023 16:39-0400 Systolic Blood Pressure Non-Invasive 158 1 ROHAN KAPPER AGENCY OPERATOR-FIELD KILN BURNER [facility] 07-04-2023 16:22-0400 Body temperature 97.88 [degF] ROHAN TREMAYNEER AGENCY OPERATOR-FIELD KILN BURNER [facility] 07-04-2023 16:22-0400 Diastolic Blood Pressure Non-Invasive 121 1 ROHAN KAPPER AGENCY OPERATOR-FIELD KILN BURNER [facility] 07-04-2023 16:22-0400 Heart rate 72 /min ROHAN KAPPER AGENCY OPERATOR-FIELD KILN BURNER [facility] 07-04-2023 16:22-0400 Respiratory rate 20 /min ROHAN KAPPER AGENCY OPERATOR-FIELD KILN BURNER [facility] 07-04-2023 16:22-0400 Systolic Blood Pressure Non-Invasive 152 1 ROHAN KAPPER AGENCY OPERATOR-FIELD KILN BURNER [facility] 07-04-2023 12:17-0400 Body temperature 97.88 [degF] ROHAN KAPPER AGENCY OPERATOR-FIELD KILN BURNER [facility] 07-04-2023 12:17-0400 Heart rate 72 /min ROHAN KAPPER AGENCY OPERATOR-FIELD KILN BURNER [facility] 07-04-2023 12:17-0400 Respiratory rate 20 /min ROHAN KAPPER AGENCY OPERATOR-FIELD KILN BURNER [facility] 07-04-2023 11:20-0400 Heart rate 74 /min ROHAN KAPPER AGENCY OPERATOR-FIELD KILN BURNER [facility] 07-04-2023 07:54-0400 Heart rate 74 /min ROHAN KAPPER AGENCY OPERATOR-FIELD KILN BURNER [facility] 07-04-2023 04:11-0400 Heart rate 82 /min ROHAN KAPPER AGENCY OPERATOR-FIELD KILN BURNER [facility] 07-04-2023 04:11-0400 Reason For Taking VItal Signs ROHAN TREMAYNEER AGENCY OPERATOR-FIELD KILN BURNER [facility] 07-03-2023 23:30-0400 Reason For Taking VItal Signs ROHAN KAPPER AGENCY OPERATOR-FIELD KILN BURNER [facility] 07-03-2023 03:07-0400 Heart rate 78 /min ROHAN KAPPER AGENCY OPERATOR-FIELD KILN BURNER [facility] 07-02-2023 22:59-0400 Heart rate 82 /min ROHAN KAPPER AGENCY OPERATOR-FIELD KILN BURNER [facility] 06-30-2023 18:36-0400 Body height 160 cm ROHAN KAPPER AGENCY OPERATOR-FIELD KILN BURNER [facility] 06-30-2023 18:36-0400 Body weight 128 kg ROHAN KAPPER AGENCY OPERATOR-FIELD KILN BURNER [facility] 06-30-2023 18:36-0400 Body weight 50 kg/m2 ROHAN KAPPER AGENCY OPERATOR-FIELD KILN BURNER [facility] 06-30-2023 15:17-0400 Blood Pressure Location ROHAN KAPPER AGENCY OPERATOR-FIELD KILN BURNER [facility] 06-30-2023 15:17-0400 Blood Pressure Method ROHAN KAPPER AGENCY OPERATOR-FIELD KILN BURNER [facility] Encounters Encounter Date Encounter Type Care Provider Facility Start: 08-11-2025 End: 08-11-2025 ambulatory Balwinder Alves Facility:[facility] Start: 07-31-2025 End: 07-31-2025 ambulatory Balwinder Alves Facility:[facility] Start: 07-24-2025 ambulatory Balwinder MARSHALL Facil ity:[facility] Start: 07-10-2025 Registered Referred Balwinder Alves MD - [facility] Start: 07-10-2025 End: 07-10-2025 ambulatory Balwinder MARSHALL Facility:[facility] Start: 07-06-2025 ambulatory Balwinder Alves Facility: [facility] Start: 07-06-2025 Non-patient / Non-visit Dr. Dorota taylor MD -[facility] Start: 07-06-2025 End: 07-06-2025 Admission to same day surgery center Dr. Dorota James MD [facility] Start: 07-06-2025 End: 07-06-2025 ambulatory Balwinder Alves MD [facility] Start: 07-03-2025 Registered Referred Balwinder Alves MD - [facility] Start: 07-03-2025 End: 07-03-2025 ambulatory Balwinder MARSHALL Facility:[facility] Start: 06-30-2025 End: 06-30-[address] Dorota James MD -[facility] Work Phone: Start: 06-30-2025 End: 06-30-2025 ambulatory Balwinder Alves MD -[facility] Start: 06-26-2025 ambulatory Balwinder Alves OLS Facil ity:[facility] Start: 06-26-2025 Registered Referred Balwinder Alves MD [facility] Start: 06-15-2025 Registered Referred Balwinder Alves MD [facility] Start: 06-15-2025 End: 06-15-2025 ambulatory Balwinder Alves Facility:[facility] Start: 06-01-2025 End: 06-01-[address] Balwinder Alves MD Work Phone: [facility] Start: 06-01-2025 End: 06-01-2025 Departed Referred Balwinder Alves MD [facility] Start: 06-01-2025 Registered Referred Balwinder Alves MD [facility] Start: 06-01-2025 End: 06-01-2025 ambulatory Balwinder Alves Facility:[facility] Start: 05-17-2025 End: 05-17-[address] Dorota James MD -[facility] Work Phone: Start: 05-17-2025 End: 05-17-2025 ambulatory Balwinder Alves MD -[facility] Start: 05-17-2025 End: 05-17-2025 ambulatory Balwinder Alves Facility:[facility] Start: 04-04-2025 Non-patient / Non-visit Dr. Dorota taylor MD -[facility] Work Phone: Start: 03-31-2025 End: 03-31-2025 ambulatory Balwinder Alves MD -Cat Scan [facility] Start: 03-31-2025 End: 03-31-[address] Dorota James MD -Cat Scan [facility] Work Phone: Start: 03-31-2025 End: 03-31-2025 ambulatory Balwinder Alves Facility:[facility] Start: 03-16-2025 Registered Referred Balwinder Fontanez [facility] Start: 03-16-2025 End: 03-16-2025 ambulatory Balwinder MARSHALL Facility:[facility] Start: 03-15-2025 Registered Referred Balwinder Fontanez [facility] Start: 03-15-2025 End: 03-15-2025 ambulatory Balwinder MARSHALL Facility:[facility] Start: 03-02-2025 ambulatory Balwinder MARSHALL Facil ity:[facility] Start: 03-02-2025 Registered Referred Balwinder Alves MD [facility] Start: 02-07-2025 End: 02-07-2025 ambulatory Balwinder Alves MD [facility] Work Phone: Start: 02-07-2025 End: 02-07-2025 Departed [facility]erred [facility] Start: 02-07-2025 End: 02-07-2025 ambulatory Balwinder MARSHALL Facility:[facility] Start: 01-23-2025 End: 01-23-2025 ambulatory Balwinder Alves MD [facility] Work Phone: Start: 01-23-2025 End: 01-23-2025 Departed Referred Balwinder [facility]Jayden [facility] Start: 01-23-2025 End: 01-23-2025 ambulatory Balwinder MARSHALL Facility:[facility] Start: 01-09-2025 End: 01-09-2025 ambulatory Balwinder Alves MD [facility] Work Phone: Start: 01-09-2025 End: 01-09-[address] [facility] Start: 01-09-2025 End: 01-09-2025 ambulatory Balwinder Alves Facility:[facility] Start: 01-02-2025 End: 01-02-2025 ambulatory Balwinder Alves MD [facility] Work Phone: Start: 01-02-2025 End: 01-02-2025 Departed Referred Balwinder Mcgrath [facility] Start: 01-02-2025 Registered Referred Balwinder Fontanez [facility] Start: 01-02-2025 End: 01-02-2025 ambulatory Balwinder MARSHALL Facility:[facility] Start: 12-26-2024 End: 12-26-2024 ambulatory Balwinder [facility] MD [facility] [facility] Work Phone: Start: 12-26-2024 End: 12-26-2024 [facility] Start: 12-26-2024 Registered Referred Balwinder Alves MD [facility] Start: 12-26-2024 End: 12-26-2024 ambulatory Balwinder MARSHALL Facility:[facility] Start: 12-16-2024 End: 12-16-2024 ambulatory Balwinder Alves MD [facility] Work Phone: Start: 12-16-2024 End: 12-16-2024 Departed Referred Balwinder Alves MD -[facility] Start: 12-16-2024 Registered Referred Balwinder Alves MD - [facility] Start: 12-16-2024 End: 12-16-2024 ambulatory Balwinder MARSHALL Facility:[facility] Start: 12-14-2024 End: 12-14-2024 ambulatory Balwinder Alves MD [facility] Work Phone: Start: 12-14-2024 End: 12-14-2024 Departed Referred Balwinder Alves MD [facility] Start: 12-14-2024 End: 12-14-2024 ambulatory Balwinder MARSHALL Facility:[facility] Start: 10-10-2024 ambulatory Balwinder MARSHALL Facil ity:[facility] Start: 10-10-2024 Registered Referred Balwinder Alves MD [facility] Start: 09-14-2024 End: 09-14-2024 [facility] Start: 09-14-2024 End: 09-14-2024 ambulatory Balwinder MARSHALL Facility:[facility] Start: 02-06-2024 End: 02-06-2024 Emergency department patient visit [facility] Work Phone: Start: 12-14-2023 End: 12-14-2023 ambulatory [facility] Work Phone: Start: 12-14-2023 End: 12-14-2023 Departed Referred [facility] Start: 12-09-2023 End: 12-09-2023 ambulatory [facility] Start: 12-09-2023 End: 12-09-2023 Office outpatient visit 15 minutes Tete FITZGERALD Work Phone: [facility] Comment on above: Closed fracture of d istal end of left fibula, unspecified fracture morphology, initial encounter (Primary Dx) Start: 11-16-2023 Orders Only Tete FITZGERALD Work Phone: [facility] Comment on above: Closed fracture of d istal end of left fibula, unspecified fracture morphology, initial encounter (Primary Dx) Start: 10-14-2023 End: 10-14-2023 ambulatory [facility] Start: 10-14-2023 End: 10-14-2023 Office outpatient visit 15 minutes Tete FITZGERALD Work Phone: [facility] Comment on above: Closed fracture of d istal end of left fibula, unspecified fracture morphology, initial encounter; Acute left ankle pain Start: 10-09-2023 Orders Only Tete FITZGERALD Work Phone: [facility] Comment on above: Closed fracture of l eft ankle, initial encounter (Primary Dx) Start: 09-23-2023 End: 09-23-2023 ambulatory SAUSAGE LINKER-C Laci Brewer SAUSAGE LINKER Work Phone: [facility] Work Phone: Start: 09-23-2023 End: 09-23-2023 Departed Referred [facility] L[employer]ER-C Laci Brewer SAUSAGE LINKER Work Phone: [facility] Start: 09-14-2023 End: 09-14-2023 ambulatory SAUSAGE LINKER-C Laci Brewer [employer]AGE L[employer]ER Work Phone: [facility] Work Phone: Start: 09-14-2023 End: 09-14-2023 Departed Referred SAUSAGE LINKER-Sharon Brewer SAUSAGE LINKER Work Phone: [facility] Start: 07-17-2023 Telephone encounter Zander Ureña MD Work Phone: [facility] Comment on above: Other (Appt ) Start: 07-16-2023 End: 07-16-2023 Patient encounter procedure SAUSAGE LINKER-Sharon Brewer SAUSAGE LINKER Work Phone: [facility] Work Phone: Start: 06-30-2023 End: 07-05-2023 ambulatory LACI BREWER AGENCY OPERATOR-[employer] [facility] Facility:B Start: 06-30-2023 End: 07-04-2023 ambulatory ROHAN MCDOWELL AGENCY OPERATOR-[employer] [facility] [facility] Facility:B Start: 06-30-2023 End: 07-04-2023 Observation ROHAN MCDOWELL AGENCY OPERATOR-[facility] Start: 02-05-2023 End: 02-06-2023 ambulatory LACI BELTRANHARPAL AGENCY OPERATOR-[employer] [facility]URNER Facility:B Start: 02-05-2023 End: 02-05-2023 Patient encounter procedure LACI BELTRANHARPAL AGENCY OPERATOR-[employer] K[facility] BURNER [facility] Start: 01-29-2022 End: 01-29-2022 Patient encounter procedure LACI BELTRANHARPAL AGENCY OPERATOR-[employer] K[employer] BURNER [facility] Start: 07-17-2021 End: 07-17-2021 Patient encounter procedure LACI BELTRANHARPAL AGENCY OPERATOR-[employer] BURNER [facility] Procedures Date Procedure Procedure Detail [...] DUTTON Start: 09-23-2023 Clostridium difficil e detection SAUSAGE LINKER-C Laci Beltranharpal [employer]USAGE LINKER Work Phone: Start: 07-16-2023 Radiography of ankle SAUSAGE LINKER -C Laci Brewer SAUSAGE LINKER Work Phone: Start: 04-04-2023 Extraction of cataract ROHAN MCDOWELL AGENCY OPERATOR-[employer] [facility] Comment on above: Left side Start: 02-09-2020 Ophthalmic examinati on and evaluation LACI BREWER AGENCY OPERATOR-[employer] [facility] Comment on above: No retinopathy; [facility] Start: 03-22-2007 Arthroplasty of knee RY AN BALTES AGENCY OPERATOR-[employer] [facility] Comment on above: BILATERAL Start: 03-05-2007 Arthroplasty of knee RY AN BALTES AGENCY OPERATOR-[facility] Start: 10-05-1968 section LACI GUERRA AGENCY OPERATOR-[employer] [facility] Cataract (disorder) LACI ROWAN AGENCY OPERATOR-[employer] [facility] Comment on above: Right eye Cholecystectomy LACI BREWER AGENCY OPERATOR-[employer] [facility] Hysterectomy LACI BREWER APR N-[facility] Miscellaneous (quali fier value) ROAHN MCDOWELL AGENCY OPERATOR-[employer] [facility] Comment on above: brain drains from br ain bleed 2013 Renal lithotripsy LACI Ramesh AGENCY OPERATOR-[employer] [facility] Sling, device (physi shauna object) LACI BREWER AGENCY OPERATOR-[employer] Comment on above: Bladder H/o cystocele Tonsillectomy LACI BREWER AP RN-[facility] Comment on above: as a teenager Plan of Treatment Date Care Activity Detail Author Start: 06-24-2026 DTaP/Tdap/Td Vaccines (2 - Td or Tdap) DTaP/Tdap/Td Vaccines (2 - Td or Tdap) [facility] [employer] Start: 07-31-2025 CT of abdomen and pelvis without contrast Abdomen/Pelvis without Cont [facility] Start: 07-31-2025 Patient encounter procedure Registered Clinical -Cat Scan [facility] Work Phone: Start: 07-24-2025 Registered Referred Registered Referred -[facility] Start: 07-06-2025 Anes lithotrp xtrcorp shock wave w/o water bath ANESTH KIDNEY STONE DESTRUCT [facility] Start: 07-06-2025 Cystoscopic insertion of ureteric stent CYSTOSCOPY AND TREATMENT [facility] Start: 07-06-2025 Extracorporeal shockwave lithotripsy of calculus of kidney FRAGMENTING OF KIDNEY STONE [facility] Start: 07-06-2025 Patient discharge [facility] Start: 07-06-2025 Peripherally inserted central catheter care [facility] Start: 07-03-2025 Registered Referred Registered Referred -[facility] Start: 05-17-2025 Electrocardiographic procedure [facility] Start: 01-23-2025 [facility] Start: 01-23-2025 Bacteria identified in Urine by Culture Urine Culture [facility] Start: 01-09-2025 Urine culture Urine Culture [facility] Start: 01-09-2025 [facility] Start: 01-02-2025 [facility] Start: 01-02-2025 Bacteria identified in Urine by Culture Urine Culture [facility] Start: 01-02-2025 Urine culture [facility] Start: 02-06-2024 [facility] Start: 11-25-2023 End: 11-16-2024 XR Ankle - left 3 Views XR ankle 3+ views left Imaging Routine Closed fracture of distal end of left fibula, unspecified fracture morphology, initial encounter Expected: 11/25/2023, Expires: [facility] Comment on above: Expected: 11/25/2023, Expires: Start: 11-25-2023 End: 11-25-2023 Patient encounter procedure 11/25/2023 10:30 AM EST Office Visit [facility] [address] [place] [address] [place] [id number] Tete Trevino PA [address] [facility] [address] [place] [address] [facility] Start: 10-14-2023 End: 10-09-2024 XR Ankle - left 3 Views XR ankle 3+ views left Imaging Routine Closed fracture of left ankle, initial encounter Expected: 10/14/2023, Expires: 10/09/2024 [facility] [employer] [facility] Work Phone: Comment on above: Expected: 10/14/2023, Expires: Start: 10-14-2023 End: 10-14-2023 Patient encounter procedure 10/14/2023 10:00 AM EST Office Visit [facility] [address] [facility] [address] [place] [address] Tete Trevino PA [address] [facility] [address] [place], [place] [id number] [facility] Start: 10-05-2023 Medicare Advantage Annual Wellness Visit Medicare Advantage Annual Wellness Visit [facility] Start: 06-05-2023 COVID-19 Vaccine ( season) COVID-19 Vaccine ( season) [facility] Start: 06-05-2023 COVID-19 Vaccine ( season) COVID-19 Vaccine ( season) [facility] Start: 06-05-2023 Influenza vaccination Influenza Vaccine (#1) [facility] Start: 06-03-2021 Zoster Vaccines (3 of 3) Zoster Vaccines (3 of 3) [facility] Start: 2008 Pneumococcal Vaccine: 65+ Years (1 - PCV) Pneumococcal Vaccine: 65+ Years (1 - PCV) [facility] Start: 2003 RSV Immunization aged 60 or older (1 - 1-dose 60+ series) RSV Immunization aged 60 or older (1 - 1-dose 60+ series) [facility] Start: 1993 Zoster Vaccines (1 of 2) Zoster Vaccines (1 of 2) [facility] Start: 1962 DTaP/Tdap/Td Vaccines (1 - Tdap) DTaP/Tdap/Td Vaccines (1 - Tdap) [facility] Start: 1955 Depression Screening Depression Screening [facility] Start: 1945 COVID-19 Vaccine (#1) COVID-19 Vaccine (#1) [facility] Start: 1945 Medicare Advantage Annual Wellness Visit (AWV) Medicare Advantage Annual Wellness Visit (AWV) [facility] Start: 1945 Screening for osteoporosis Bone Density Scan [facility] Basic metabolic 2008 panel with ionized calcium - Serum or Plasma [facility] CBC W Auto Different ial panel - Blood [facility] Patient Education ED Abscess Inc ision And Drainage ED Wound Care After Packing ... [facility] Work Phone: Patient referral [facility] Work Phone: Urine culture [facility] XR Abdomen Single view [facility] Immunizations Immunization Date Immunization Notes Care Provider [facility] 07-03-2022 influenza virus vacc ine, unspecified formulation LACI BREWER AGENCY OPERATOR-[employer] [facility] 01-14-2022 SARS-CoV-2 mRNA (irljftckawf-uxyi-oylexj e) vaccine LACI BREWER AGENCY OPERATOR-[employer] BURNER [facility] 06-14-2021 influenza virus vacc ine, unspecified formulation LACI BREWER AGENCY OPERATOR-[employer]URNER [facility] 04-08-2021 zoster vaccine recombinant LACI BREWER AGENCY OPERATOR-[employer] 01-01-2021 SARS-CoV-2 (COVID-19 ) mRNA BNT-162b2 vax LACI BREWER AGENCY OPERATOR-[employer] 12-10-2020 SARS-CoV-2 (COVID-19 ) mRNA BNT-162b2 vax LACI BREWER AGENCY OPERATOR-[employer]URNER [facility] Comment on above: Result Comment: 2020: [id number] 05-06-2020 influenza virus vacc ine, unspecified formulation LACI BREWER AGENCY OPERATOR-[employer] [facility] 05-06-2020 pneumococcal conjuga te vaccine, 13 valent LACI BREWER AGENCY OPERATOR-[employer] 07-06-2019 influenza virus vacc ine, unspecified formulation LACI BREWER AGENCY OPERATOR-[employer] 09-03-2018 influenza virus vacc ine, unspecified formulation LACI BREWER AGENCY OPERATOR-[employer] 08-05-2018 influenza virus vacc ine, unspecified formulation LACI BREWER AGENCY OPERATOR-[employer]URNER [facility] 07-04-2018 influenza virus vacc ine, unspecified formulation LACI BREWER AGENCY OPERATOR-[employer]URNER [facility] 06-04-2018 influenza virus vacc ine, unspecified formulation LACI OSMAN AGENCY OPERATOR-[employer] [facility] 06-23-2017 influenza virus vacc ine, unspecified formulation LACI OSMAN AGENCY OPERATOR-[employer] [facility] 06-10-2017 influenza virus vacc ine, unspecified formulation LACI OSMAN AGENCY OPERATOR-[employer]NER [facility] 06-24-2016 influenza virus vacc ine, unspecified formulation LACI BREWER AGENCY OPERATOR-[employer]URNER [facility] 06-24-2016 tetanus toxoid, redu chivo diphtheria toxoid, and acellular pertussis vaccine, adsorbed LACI BREWER AGENCY OPERATOR-[employer] 07-17-2015 pneumococcal conjuga te vaccine, 13 valent LACI BREWER AGENCY OPERATOR-[employer] 06-19-2015 influenza virus vacc ine, unspecified formulation LACI BREWER AGENCY OPERATOR-[employer]NER [facility] 09-06-2014 influenza virus vacc ine, unspecified formulation LACI BREWER AGENCY OPERATOR-[employer]URNER [facility] 06-08-2013 pneumococcal polysaccharide vaccine, 23 valent LACI BREWER AGENCY OPERATOR-[employer] 09-01-2012 influenza virus vacc ine, unspecified formulation LACI BREWER AGENCY OPERATOR-[employer]URNER [facility] 05-28-2012 zoster vaccine, live LACI KOREY KUNAL AGENCY OPERATOR-[employer] [facility] Payers Date Payer Category Payer Medicaid [id number] 2024 Self-pay [id number] 2023 Medicare [employer]AGE [id number] 2023-Present [phone] [address] [place] [address] Medicare HMO [id number] 2023 Medicare [id number] 2023 Unknown [id number] 1945 Unknown [id number] [id number]7 1945 Unknown [id number] 2.16.840.1.953243.3.579.2.627 1945 Unknown [id number] 2.16.840.1.295347.3.579.2.627 Medicare [id number] Unknown [id number] 2.16.840.1.778846.3.579.2.462 Unknown [id number] 2.16.840.1.147507.3.579.2.462 Unknown [id number] 2.16.840.1.670630.3.579.2.462 Unknown [id number] 2.16.840.1.120063.3.579.2.462 Unknown [id number] 2.16.840.1.290301.3.579.2.462 Unknown [id number] 2.16.840.1.282903.3.579.2.462 Unknown [id number] 2.16.840.1.878301.3.579.2.462 Unknown [id number] 2.16.840.1.933820.3.579.2.462 Unknown [id number] 2.16.840.1.781892.3.579.2.462 Unknown [id number] 2.16.840.1.218603.3.579.2.462 Unknown [id number] 2.16.840.1.603870.3.579.2.462 Unknown [id number] 2.16.840.1.543373.3.579.2.462 Unknown [id number] 2.16.840.1.352307.3.579.2.462 Unknown [id number] 2.16.840.1.959339.3.579.2.462 Unknown [id number] 2.16.840.1.120890.3.579.2.462 Unknown [id number] 2.16.840.1.038733.3.579.2.462 Unknown [id number] 2.16.840.1.949805.3.579.2.462 Unknown [id number] 2.16.840.1.048919.3.579.2.462 Unknown [id number] 2.16.840.1.979156.3.579.2.462 Unknown [id number] 2.16.840.1.851484.3.579.2.462 Unknown [id number] 2.16.840.1.263203.3.579.2.462 Unknown [id number] 2.16.840.1.102282.3.579.2.462 Unknown [id number] 2.16.840.1.677068.3.579.2.462 Unknown [id number] 2.16.840.1.882709.3.579.2.462 Unknown [id number] 2.16.840.1.362308.3.579.2.462 Unknown [id number] 2.16.840.1.587224.3.579.2.462 Social History Date Type Detail Facility Start: 04-06-2019 End: 06-28-2025 Ex-smoker (finding) [facility] Comment on above: Quit in 2014, not ar ound cigarette smoke Start: 1945 Sex Assigned At Female A [facility] Start: 07-16-2023 End: 02-06-2024 Tobacco smoking status NHIS Tobacco smoking consumption unknown [facility] Start: 1945 Sex Assigned At Not on file [facility] Start: 10-14-2023 End: 12-09-2023 Gender identity Not on file [facility] Start: 10-14-2023 Tobacco smoking stat us WVIS Never smoked tobacco [facility] Start: 10-14-2023 Tobacco use and exposure Smokeless tobacco non-user [facility] Start: 10-14-2023 End: 12-09-2023 History of Social function [facility] Start: 01-04-2025 End: 01-24-2025 Sex Female (finding) [facility] Medical Equipment Procedure Code Equipment Code Equipment Origin al Text Equipment Identifier Dates Lithotripsy, [id number] ([id number]) Polymeric uret eral stent ([id number] FDA Start: 07-06-2025 BD UF SHORT PEN NEEDLE [id number] Start: 08-29-[address] Strips Start: 10-16-2020 Lancets Start: 04-23-2021 BD UF SHORT PEN NEEDLE [id number], 0 Refill(s), 141.8 Start: 08-29-2020 See Instructions , EA=BOX of 100 2x daily testing once touch untra blue dx: diabetes, # 6 EA, 3 Refill(s), Pharmacy: [facility]/pharmacy #[id number], Diabetes, 166.37, cm, 07/24/21 11:31:00 EDT, Height, 134.5, kg, 07/24/21 11:31:00 EDT, Dosing Weight Start: 07-24-2021 See Instructions , EA=BOX OF 100 ONETOUCH DELICA LANCETS FINE, 33 GA TO TEST BID Diabetes R11.9, # 6 EA, 3 Refill(s), Pharmacy: [facility]/pharmacy #[id number], Diabetes, 166.37, cm, 07/24/21 11:31:00 EDT, Height, 134.5, kg, 07/24/21 11:31:00 EDT, Dosing Weight Start: 07-24-2021 See Instructions , Using Twice Daily. ONE BOX OF 100. BD UF 8mm 31 G (short) qs 3 month supply Diabetes Mellitus E11.9, # 2 EA, 0 Refill(s), Pharmacy: [facility]/pharmacy #[id number], 167.6, cm, 11/05/21 9:58:00 EST, Height, 135.4, kg, 11/05/21 9:58:00 EST, Dosing... Start: 12-20-2021 See Instructions , EA=BOX of 100 2x daily testing once touch untra blue dx: diabetes, # 6 EA, 3 Refill(s), Pharmacy: [facility]/pharmacy #[id number], Diabetes, 167.6, cm, 05/20/22 12:08:00 EDT, Height, 134.9, kg, 05/20/22 11:59:00 EDT, Dosing Weight Start: 08-05-2022 See Instructions , EA=BOX OF 100 ONETOUCH HENRI SPRINGER FINE, 33 GA TO TEST BID Diabetes R11.9, # 6 EA, 3 Refill(s), Pharmacy: [facility]/pharmacy #[id number], Diabetes, 167.6, cm, 08/19/22 12:13:00 EST, Height, 135.4, kg, 08/19/22 12:13:00 EST, Dosing Weight Start: 09-10-2022 See Instructions , EA=ONE BOX OF 100, BID BD UF 8mm 31 G (short) qs 3 month supply Diabetes Mellitus E11.9, # 2 EA, 3 Refill(s), Pharmacy: [facility]/pharmacy #[id number], 167.6, cm, 11/20/22 11:29:00 EST, Height, 134, kg, 11/20/22 11:29:00 EST, Dosing Weight Start: 11-20-2022 See Instructions , EA=BOX of 100 2x daily testing once touch untra blue dx: diabetes, # 6 EA, 3 Refill(s), Pharmacy: [facility]/pharmacy #[id number], Diabetes, 167.6, cm, 05/20/22 12:08:00 EDT, Height, 134.9, kg, 05/20/22 11:59:00 EDT, Dosing Weight Start: 08-05-2022 See Instructions , EA=BOX OF 100 ONETOUCH DELLEIF SPRINGER FINE, 33 GA TO TEST BID Diabetes R11.9, # 6 EA, 3 Refill(s), Pharmacy: [facility]/pharmacy #[id number], Diabetes, 167.6, cm, 08/19/22 12:13:00 EST, Height, 135.4, kg, 08/19/22 12:13:00 EST, Dosing Weight Start: 09-10-2022 See Instructions , EA=ONE BOX OF 100, BID BD UF 8mm 31 G (short) qs 3 month supply Diabetes Mellitus E11.9, # 2 EA, 3 Refill(s), Pharmacy: [facility]/pharmacy #[id number], 167.6, cm, 11/20/22 11:29:00 EST, Height, 134, kg, 11/20/22 11:29:00 EST, Dosing Weight Start: 11-20-2022 Goals Date Patient Goal Desired Activity /State Functional Status Date Assessment Result Facility 07-04-2023 Functional Status Room check performed [facility] 07-04-2023 Functional Status right knee high applied /on [facility] 07-04-2023 Functional Status [facility] 07-04-2023 Functional Status [facility] 07-04-2023 Functional Status Demonstrates C orrect Call Light Use Yes [facility] 07-04-2023 Functional Status Done [facility] 07-04-2023 Functional Status [facility] 07-03-2023 Functional Status Positioning Repositions self [facility] 07-03-2023 Functional Status [facility] 07-03-2023 Functional Status [facility] 07-03-2023 Functional Status [facility] 07-03-2023 Functional Status [facility] 07-03-2023 Functional Status [facility] 07-02-2023 Functional Status [facility] 07-02-2023 Functional Status Max A [facility] 07-01-2023 Functional Status [facility] 07-01-2023 Functional Status Single level home [facility] 07-01-2023 Functional Status [facility] 06-30-2023 Functional Status Sensory Deficits None A [facility] 06-30-2023 Functional Status Activity Rosa tance Independent [facility] Mental Status Date Assessment Result Facility 07-06-2025 Cognitive function Voice/Name [facility] Work Phone: 07-04-2023 Mental Status Orientation Orie nted x 4, Follows simple commands [facility] 07-03-2023 Mental Status Levels Hospit [facility] 07-03-2023 [facility] 07-03-2023 Mental Status Orientation Asse ssment Oriented x 4 [facility] 07-02-2023 Mental Status [facility] 07-01-2023 Mental Status [facility] Clinical Notes 06-30-2023 to 07-06-2025 Note Date & Type Note Facility 07-06-2025 Consult note [facility] 07-06-2025 Consult note Note Date/Time July 06, 2025 12:50pm [facility] Medical Records Department [address] [place] [id number] Pre-Anesthesia Evaluation 07/06/25 1243 MR#: [id number] Acct: [id number] Name: GUMARO HUFF Rep #:[id number] : 1945 80 From: Shailesh Russell MD PCP: Dr. 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: Anesthesia History - 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 worker Hx Hospitalization No 06/28/25 08:30 Any Problems [...] sips of water?: Yes PONV PONV - 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 worker: PONV - 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 worker Female Yes 06/28/25 08:30 HX of Motion [...] 07/06/25 11:24 Respiratory Assessment Respiratory Assessment - 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 worker: Respiratory Tract Infection Hx - 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 worker Hx Respiratory Tract Infection No 06/28/25 08:30 STOP Sleep Apnea STOP Sleep Apnea - 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 worker: STOP Sleep Apnea - 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 worker Hx Hypertension Yes 06/28/25 08:30 Hx Sleep [...] Tobacco Use History Tobacco Use History - 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 worker: Tobacco Use History - 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 worker Tobacco Use Smoking Status Former smoker 06/28/25 08:30 Hx Tobacco Use No 06/28/25 08:30 Years Smoking Packs Smoked per Day Smoking Cessation Date was Yes - quit smoking within 15 06/28/25 08:30 within the last 15 years years Hx Smoking Cessation Date 10/05/13 06/28/25 08:30 Hx Smoking Cessation Counseling Hematologic Medial History Hematologic Hx - 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 coli infection Lives in long term Wears glasses Wears dentures Diabetes Uses wheelchair [...] MD Cosigner Signature: Date CC: ~ Signed [facility] Work Phone: 1(694) 378-214110-02-2025 Discharge summary Author Dorota James [facility] Note Date/Time July 06, 2025 12 :24pm [facility] Medical Records Department [address] [place] [address] Instructions for Home/Discharge Instructions 07/06/25 1217 MR#: [id number] Acct: [id number] Name: GUMARO HUFF Rep #:[id number] : 1945 80 From: Dorota Torres PCP: Dr. Balwinder Alves MD Status:[place] [facility] Discharge Instructions Diet Discharge Diet: No restrictions [...] Care Provider: Balwinder Alves Instructions Print Language: Belarusian Discharge Orders/Prescriptions Prescriptions: New phenazopyridine 200 mg [...] CC: Dr. Balwinder Alves MD ~ Signed [facility] Work Phone: 1(145) 610-782710-02-2025 Consult note [facility] Medical Records Department [address] [place] [address] Anesthesia Postop Eval I 07/06/25 1419 MR#: [id number] Acct: [id number] Name: GUMARO HUFF Rep #:[id number] : 1945 80 From: Gerry Brown PCP: Dr. Balwinder Alves MD Status:REG SDC Y Race: C Location: [place] [address] Anesthesia: Postop Eval I Current Vital Signs [...] Anesthesia document: Postop Eval 1 completed: Yes 10/02/25 1420 > Date _ Gerry Lee Signature: Date CC: ~ Signed [facility]10-02-2025 History and physical note Author Dorota James [facility] Note Date/Time July 06, 2025 12 :17pm [facility] Medical Records Department [address] [place] [address] History & Physical Exam 07/06/25 1211 MR#: [id number] Acct: [id number] Name: GUMARO HUFF Rep #:[id number] : 1945 80 From: Dorota Torres PCP: Dr. Balwinder Alves MD Status:[facility] Location: [place] [address] History and Physical Date of Admission: 07/06/25 Date of Service: 06/30/25 MR#: [id number] Acct: [id number] Name: GUMARO HUFF Rep #: [id number] : 1945 Provider: Dr. Dorota James MD Age/Sex: 80/F [place] [facility] [place]: Signed Intake Vital Signs 05/17/2510:04 06/30/2510:21 [...] No Nurse's Note: Patient doing well today. [facility] Medical History H/O echocardiogram History of ESBL E. coli infection Lives in long term Wears glasses Wears dentures Diabetes Uses wheelchair [...] healthy appearing, comfortable and no acute distress [facility] Head: normocephalic and atraumatic Ears: hearing [...] Lr on 06/30/25 10:36 Off Ur Spec [place] 1.010 Last Edit by Siena Lr on [...] Off Ur Leukocytes Positive Last Edit by Sienaastrid Lr on 06/30/25 10:36 500 Sienaastrid Chuon 06/30/25 10:36 Coding Level of Care Code [...] you fallen in the past year?: No 07/06/251215 <Electronically signed by Dorota James MD> Date [...] MD; Dr. Balwinder Alves MD ~* Signed [facility] Work Phone: 1(971) 317-857810-02-2025 Procedure note [facility] Medical Records Department [address] [place] [address] Operative Report 07/06/25 1224 MR#: [id number] Acct: [id number] Name: GUMARO HUFF Rep #:[id number] : 1945 80 From: Dorota Torres PCP: Dr. Balwinder Alves MD Status:[facility] Location: [place] [address] Operative Report (Standard) Operative Information Date of Procedure: 07/06/25 Pre-Operative Diagnosis: Right renal calculus, urinary tract infection Post-Operative Diagnosis: Same Surgery/Procedure Performed: Cystoscopy with right ureteral stent insertion, right renal extracorporeal shockwave lithotripsy mobility manager: No Type of Anesthesia: General RN Documented Start/Stop Times: Operation Date: 07/06/25 12:35 Case Time Into Pre-Op 07/06/25 10:52 Anesthesia Start 07/06/25 12:55 Into Room 07/06/25 12:55 Out of Pre-Op 07/06/25 12:57 Procedure Start 07/06/25 13:12 Procedure Start Time: 13:12 Procedure Stop Time: 13:58 Select all DRAINS/GRAFTS/IMPLANTS that apply: Drains Drain details: 6 Gambian by 28 cm JJ stent Estimated Blood [...] the level of the stone. A 6 Gambian 28 cm JJ stent was placed over [...] James MD; Dr. Balwinder Alves MD~ Signed [facility]10-02-2025 Consult note [facility] Medical Records Department [address] [place] [address] Pre-Anesthesia Evaluation 07/06/25 1243 MR#: [id number] Acct: [id number] Name: GUMARO HUFF Rep #:[id number] : 1945 80 From: hSailesh Russell MD PCP: Dr. Balwinder Alves MD Status:[facility] Y Race: C Location: [place] [address]- ASA Classification* ASA Classification ASA Classification: 3 [...] RIGHT STENT Anesthesia History Anesthesia History - 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 worker: Anesthesia History - 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 worker Hx Hospitalization No 06/28/25 08:30 Any Problems [...] sips of water?: Yes PONV PONV - 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 worker: PONV - 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 worker Female Yes 06/28/25 08:30 HX of Motion [...] 07/06/25 11:24 Respiratory Assessment Respiratory Assessment - 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 worker: Respiratory Tract Infection Hx - 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 worker Hx Respiratory Tract Infection No 06/28/25 08:30 STOP Sleep Apnea STOP Sleep Apnea - 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 worker: STOP Sleep Apnea - 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 worker Hx Hypertension Yes 06/28/25 08:30 Hx Sleep [...] Tobacco Use History Tobacco Use History - 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 worker: Tobacco Use History - 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 worker Tobacco Use Smoking Status Former smoker 06/28/25 08:30 Hx Tobacco Use No 06/28/25 08:30 Years Smoking Packs Smoked per Day Smoking Cessation Date was Yes - quit smoking within 15 06/28/25 08:30 within the last 15 years years Hx Smoking Cessation Date 10/05/13 06/28/25 08:30 Hx Smoking Cessation Counseling Hematologic Medial History Hematologic Hx - 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 Specify any problems Hx of Preganancy in last 3 No 06/28/25 08:30 Months Nurse Filling Out Transfusion [facility] 06/28/25 08:30 & Questions: Date: 06/28/25 06/28/25 08:30 Time: 08:30 06/28/25 08:30 Patient unable to answer at this time (ie. confused, unrespo /Reproduction History /Reproductive History - 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 worker: /Reproductive Hx- 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 worker Hx Now No 06/28/25 08:30 Gestational Age [...] of ESBL E. coli infection Lives in long term Wears glasses Wears dentures Diabetes Uses wheelchair [...] complaints, except as documented. 07/06/25 1250 la > Date _ Shailesh Russell MD Cosigner Signature: Date CC: ~ Signed [facility]10-02-2025 Discharge summary [facility] Medical Records Department [address] [place] [address] Instructions for Home/Discharge Instructions 07/06/25 1217 MR#: [id number] Acct: [id number] Name: GUMARO HUFF Rep #:[id number] : 1945 80 From: Dorota Torres PCP: Dr. Balwinder Alves MD Status:[facility] Discharge Instructions Diet Discharge Diet: No restrictions [...] Care Provider: Balwinder Alves Instructions Print Language: Belarusian Discharge Orders/Prescriptions Prescriptions: New phenazopyridine 200 mg [...] CC: Dr. Balwinder Alves MD ~ Signed [facility]10-02-2025 History and physical note [facility] Medical Records Department [address] [place] [address] History & Physical Exam 07/06/25 1211 MR#: [id number] Acct: [id number] Name: GUMARO HUFF Rep #:[id number] : 1945 80 From: Dorota Torres PCP: Dr. Balwinder Alves MD Status:[facility] Location: [place] [address] History and Physical Date of Admission: 07/06/25 Date of Service: 06/30/25 MR#: [id number] Acct: [id number] Name: GUMARO HUFF E[place] Rep #: [id number] : 1945 Provider: Dr. Dorota James MD [...] No Nurse's Note: Patient doing well today. [facility] Medical History H/O echocardiogram History of ESBL E. coli infection Lives in long term Wears glasses Wears dentures Diabetes Uses wheelchair [...] Lr on 06/30/25 10:36 Off Ur Spec [place] 1.010 Last Edit by Siena Lr on [...] year?: No 07/06/256 Date Dorota James MD 07/06/25 1217 Cosigner Signature (if applicable): CC: Dr. Dorota James MD; Dr. Balwinder Alves MD~ Signed ADDENDUM by Dr. Dorota James MD on 07/06/25 at 1217 Addendum I have examined the patient and the H&P has been reviewed. There are no clinicalchanges since date of exam. 07/06/25 1217 Cosigner Signature (if applicable): cc: Dr. Dorota James MD; Dr. Balwinder Alves MD ~* Signed [facility]10-02-2025 [facility] Medical Records Department [address] [place] [address] History Physical Exam 07/06/25 1211 MR#: [id number] Acct: [id number] Name: DARIAGUMARO Ewa Rep #: [id number] : 1945 80 From: Dorota James MD PCP: Dr. Balwinder Alves MD Status:[facility] Location: [place] [address] History and Physical Date of Admission: 07/06/25 Date of Service: 06/30/25 MR#: [id number] Acct: [id number] Name: GUMARO HUFF Rep #: [id number] : 1945 Provider: Dr. Dorota James MD Age/Sex: 80/F [place] [facility] Status: Signed Intake Vital Signs 05/17/2510:04 06/30/2510:21 [...] No Nurse's Note: Patient doing well today. [facility] Medical History H/O echocardiogram History of ESBL E. coli infection Lives in long term Wears glasses Wears dentures Diabetes Uses wheelchair [...] renal extracorporal shockw (more content not included)... [facility]08-14-2025 Radiology Diagnostic study note [facility] Imaging Services [address], [place] [id number] Abdomen Single View MR#: [id number] Acct: [id number] Name: GUMARO HUFF Rep #: [id number] : 1945 F 80 From: Gena Barth MD PCP: Dr. Balwinder Alves MD Status: REG CLI Study:Abdomen Single View Date of Exam: 05/17/25 Exam# [id number] Ordering Dr: Dorota James MD PROCEDURE: ABDOMEN [...] renal staghorn calculus is redemonstrated. Reading Location: [place] [address] CC: Dr. Dorota James MD; Dr. Balwinder Alves MD ~ Photo Lab Specialist: Signed [facility]08-13-2025 Evaluation note* Diagnosis Onset Date Resolution Status Admit Date Flank pain acute May 17, 025 9:40am Staghorn calculus acute May 17, 2025 9:40am Uncontrolled type 2 diabetes mellitus acute May 17 9:40am UTI (urinary tract infection) acute May 17, 2025 9:40am HTN (hypertension) chronic May 17, 2025 9:40am [facility] Work Phone: 1(206) 918-981808-13-2025 Evaluation note* Diagnosis Onset Date Resolution Status Admit Date Flank pain acute May 17, 025 9:40am Staghorn calculus acute May 17, 2025 9:40am Uncontrolled type 2 diabetes mellitus acute May 17 9:40am UTI (urinary tract infection) acute May 17, 2025 9:40am HTN (hypertension) chronic May 17, 2025 9:40am UTI (urinary tract infection) acute June 30, 2025 10:09am [facility] Work Phone: 1(313) 327-750708-13-2025 Evaluation note* Diagnosis Onset Date Resolution Status [...] 2025 10:09am HTN (hypertension) chronic 2024 10:09am [facility] Work Phone: 1(124) 361-256606-27-2025 Radiology Diagnostic study note [facility] Imaging Services [address] [place] [address] Abdomen/Pelvis without Cont MR#: [id number] Acct: [id number] Name: GUMARO HUFF #: [id number] : 1945 F 80 From: Adalid Hanna MD PCP: Dr. Balwinder Alves MD Status: REG CLI Study:Abdomen/Pelvis without Cont Date of Exa m: 03/31/25 Exam# [id number] Ordering Dr: Dorota James MD PROCEDURE: ABDOMEN/PELVIS [...] Sigmoid diverticulosis. Status post cholecystectomy. Reading Location: [id number] CC: Dr. Dorota James MD; Dr. Balwinder Alves MD ~ Photo Lab Specialist: Signed [facility]05-04-2024 Discharge summary Author Omid Montiel [facility] February 06, 2024 6:02pm Note Date/Time February 06, 2024 4:09pm [facility] Medical Records Department [address] [place] [address] Emergency Department Summary 02/06/24 MR#: [id number] Acct: [id number] Name: GUMARO HUFF Rep #:[id number] : 1945 78 From: Omid Montiel MD PCP: Dr. Balwinder Alves MD Status:REG ER Location: ED HPI History of Present Illness Chief Complaint: Wound Check Narrative Narrative: 78-year-old female past medical history of diabetes [facility] right labia majora abscess. She [...] line because they want to start vancomycin. [facility] Medical History Brain bleed Cataract Closed [...] on antibiotics orally. Disposition is discharged to [facility] in stable condition. History & [...] Care Provider] - 2 Days Laci Brewer SAUSAGE LINKER, SAUSAGE LINKER-C [Non-Staff] - Activity Restrictions/Additional Instructions: Remove packing/have packing removed in 48 hours. Do not leave in longer. Continue vancomycin through your peripheral IV. Disposition Disposition: Nursing Home Facility Discharge Location: [facility] What to do if you have Problems For any increased pain, shortness of breath, bleeding, nausea or vomiting, chestpain, or any unexpected problems, contact your Primary Care Provider. Call [facility] ([phone]) or report to the closest Emergency Room. Call 911 if necessary. 02/06/24 180 <Electronically signed by Omid Montiel MD> Cosigner Signature (if applicable): CC: Dr. Balwinder Alves MD ~ Signed [facility] Work Phone: 1(188) 791-835403-06-2024 History of Present illness Narrative* LIA Champagne - 12/09/2023 10:30 AM EST Images from the original note were not included. [facility] [address] [place] [address] [place] [phone] Dept: [phone] Dept Gumaro [place] 1945 [id number] 12/09/2023 HISTORY OF PRESENT ILLNESS: Gumaro returns [...] to improve. Electronically signed by LIA Champagne [facility] Department of Orthopedic surgery 12/09/2023 3:43 PM Voice recognition was used for portions of this note and although it was reviewed prior to signing some incorrect words or phrases could be present. documented in this [facility]01-10-2024 History of Present illness Narrative* LIA Champagne - 10/14/2023 10:00 AM EST Images from the original note were not included. [facility] [address] [place] [address] [place] [phone] Dept: [phone] Dept Gumaro [place] 1945 [id number] 10/14/2023 HISTORY OF PRESENT ILLNESS: Gumaro returns [...] with Imaging. Electronically signed by LIA Champagne [facility] Department of Orthopedic surgery 10/14/2023 3:50 PM Voice recognition was used for portions of this note and although it was reviewed prior to signing some incorrect words or phrases could be present. documented in this [facility]SSelect [facility] [id number] Telephone encounter Note* Telephone Encounter - Kimberly Capellan MA - 09/03/2023 8:53 AM EST Left distal fibula fx doi 07/02/23 she is in a boot. Can only be seen in [place] or [place]. No wads [id number] Miscellaneous Notes* Telephone Encounter - Kimberly Capellan MA - 09/03/2023 8:53 AM EST Left distal fibula fx doi 07/02/23 she is in a boot. Can only be seen in [place] or [place]. No wads * Telephone Encounter - Sammie Lantigua - 09/02/2023 12:08 PM EST Gareth an RN at [facility] called [phone] ext 2008, he states that they just got Gumaro from [place] and they are looking for her to [...] Dr. Ureña on Thursday at 1pm in [facility] or 9am in [place] if not already double booked. documented in this [facility]11-29-2023 Telephone encounter Note* Telephone Encounter - Sammie Lantigua - 09/02/2023 12:08 PM EST Gareth an RN at [facility] called [phone] ext 2008, he states that they just got Gumaro from [place] and they are looking for her to [...] 2:30 today and then works again tomorrow. [facility] [id number] Miscellaneous Notes* Telephone Encounter - Sammie Lantigua - 09/02/2023 12:08 PM EST Gareth an RN at [facility] called [phone] ext 2008, he states that they just got Gumaro from [place] and they are looking for her to [...] Dr. Ureña on Thursday at 1pm in [facility] or 9am in [place] if not already double booked. documented in this encounterSSelect Medical [facility] Rehabilitation [id number] Telephone encounter Note* Telephone Encounter - Billy Araya MA - 07/17/2023 9:27 AM EDT LVM to schedule with Dr. Ureña on Thursday at 1pm in [facility] or 9am in [place] if not already double booked. [facility] [id number] Hospital Discharge instructions Patient Education 07/03/2023 14:56:59 Urinary Tract Infection, Adult, Clji-or-Mbsw Urinary Tract Infection, Adult A urinary tract [...] Follow these instructions at home: Medicines Take fdop-mpu-szdkaln and prescription medicines only as told by [...] 03/09/2009 Document Revised: 09/08/2019 Document Reviewed: 03/31/2019 [employer] Exchange Patient Education 2020 [employer]. Follow Up Care 06/30/2023 15:11:52 With:LACI BREWER Address: [address] [place] [phone] [phone] When:3-5 days Comments:Please schedule a Follow up appt with your PCP after d/c. [facility] 09-29-2023 Note Discharge Instructions Thank you for allowing [facility] to assist you with your healthcare needs. The following is importantdischarge information regarding your hospital visit. Your Care Team Heather Hunt APRN Your Diagnosis Ankle pain-swelling Depression Fall Fibula fracture Hypertension Type 2 diabetes mellitus Urinary tract infection What to do next Scheduled Follow-Up Appointments Appointment Type When With Where Contact InformationPC 09/22/2023 11:30 AM LACI GÓMEZ APRN-[facility]URNER [address] [phone] Follow Up Appointments Follow Up with LACI BREWER When Within 3-5 days Why: Please schedule a Follow up appt with your PCP after d/c. Where: [address] [facility] [place] [address]- [phone] The Following Activity and Diet Have Been [...] When Why Instructions Last Dose New acetaminophen-hydrocodone ([place] 325- 5 mg oral tablet) 1 tab(s) [...] Follow these instructions at home: Medicines Take cqkk-ccy-pzyljwr and prescription medicines only as told by [...] Document Reviewed: 03/31/2019 Elsevier Patient Education 2020 [employer] Additional Information VACCINATE! IT SAVES LIVES! Members of the community who have not yet received the COVID-19 vaccine and would like to receive it can visit one of [facility] vaccine clinics. There are many vaccine clinic locations within the [facility]. For locations and available times, please visit https://gettheshot.coronavirus.[place].gov/. It is important to note that some COVID mobile vaccine clinics are held outdoors and may be canceled in rainy or stormy conditions. To learn more about pediatric vaccinations (ages 5-11), we invite you to visit the [employer] webpage. https://www.BetaVersitys.org/pages/0495-Wtzyf-Ipuesvaoysm-Ptdaugxfcq-Cszlk-Hqv stions.htmlTo learn more about the COVID-19 vaccine, we invite you to visit the CDC website for a list of frequently asked questions.https://www.cdc.gov/coronavirus/2019-ncov/vaccines/faq.html [email or web address] Patient Portal Access Instructions: Stay connected with your healthcare team and access your personal medical information anytime with the [email or web address] Patient Portal. Please follow the directions below to create your [email or web address] account: 1.Access the email account you provided upon registration to the hospital/physician office.2.Look for an invitation email from [facility].3.Open the email and access the invitation link: AcceptInvitation to [email or web address].4.Fill in the required correa to create your account. To access your account, visit [email or web address]. Click the blue button labeled Access Patient [...] who you will allowto register on the [email or web address] Patient Portal for access to your information. You can also access the [facility] One[facility] Patient Portal on the [facility] calos. Simply click on Patient Portal and then log into your account. If you would like to receive a full copy of your medical records, please contact the [facility] Medical Records Department by calling [phone], Thursday through Thursday between 8 a.m. and [...] Call your local pharmacy or go to http://Alt12 Apps/1E7Eu0x to find one close to you.3.Make use of household items: Use cat litter or old coffee grounds to dispose medications if other options arenot available. Mix your drugs with these household products, seal them in an airtight container andthrow it into the garbage. Call [facility]: [phone] to be sure your drugs can be [...] Patient Education Materials Urinary Tract Infection, Adult, Sklk-nx-Qdyx Medication Leaflets My discharge plan and instructions have been reviewed and explained to me and I,GUMARO HUFF understand my current condition and have read and understand these discharge instructions. I have received a written copy of the plan/instructions. If I have questions, I am aware that I should contact my doctor. 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 Next Patient presented to [facility] emergency department on 06/30/2023 with left ankle [...] currently. Pain was not well controlled with [place] alone. Objective Vitals and Measurements T: 36.6 [...] Dr. Roberto, nonweightbearing status for 6 weeks. [place] for pain. Patient has a documented allergy [...] Time Spent 36 minutes was spent in ejqw-ku-szwg time and coordination of care for this patient, including but not limited to personally gathering history, examining the patient, reviewing labs and images and records, counseling patient and/or family about diagnosis and potential workup if applicable, as detailed above as well as discussing the case with patient's interdisciplinary team where applicable. Digitally Signed by HEATHER HUNT on 07/03/2023 01:33 PM [facility]09-28-2023 Note Date of Service 07/02/2023 Chief Complaint Fall Subjective 78-year-old female with past medical history significant for HTN, HLD, type 2 diabetes mellitus, morbid obesity. Next Patient presented to [facility] emergency department on 06/30/2023 with left ankle [...] Dr. Roberto, nonweightbearing status for 6 weeks. [place] for pain. Patient has a documented allergy [...] by HEATHER HUNT on 07/02/2023 04:17 PM [facility]09-28-2023 Note. MICRO - Microbiology PROCEDURE: Urine Culture [...] performed at: [facility], [address] [place] [address], [id number]- , [facility] ([place])07-01-2023 Note Date of Service 07/01/2023 Chief Complaint [...] - holding off until seen by ortho. *manager environmental services consulted for discharge planning. *Continue PO pain [...] medications, discussing plan of care with nursing,social worker aide, and therapy, examining patient, collaborating with physician, and documenting in chart. Digitally Signed by ROHAN MCDOWELL on 07/01/2023 04:17 PM [facility]09-26-2023 Note Date of Service 06/30/2023 Chief Complaint Patient fell at home and is complaining of left-sided ankle pain. History of Present Illness Patient is an 78-year-old female, who follows with Laci Brewer CNP with a past medical history significant for hypertension, hyperlipidemia, type 2 diabetes and morbid obesity, presented to [facility] emergency department with the chief complaint of [...] evaluate and treat. We will consult social worker aide for discharge planning. Check CBC and BMP [...] PT and OT to evaluate and treat. *manager environmental services consulted for discharge planning. 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 Appetite Good. Eating Difficulties None. Caffeine intake amount: Occ Coke. Two protein drink daily, it has caffeine of one cup of coffee., 08/19/2022 Substance Abuse Use: Never., 04/06/2019 Tobacco Tobacco Use: Former smoker, quit more than 30 days ago., 04/06/2019 Family History Arthritis: Sister. Asbestosis: Father. Cancer: Mother. Diabetes: Sister. Guillain [place] syndrome: Sister. Heart disease: Sister. Malignant neoplasm [...] by ROHAN MCDOWELL on 06/30/2023 04:51 PM [facility]09-26-2023 Note ORIGINAL EXAMINATION: 3 x-ray views of [...] Date: 06/30/2023 4:00:26 PM Ordering Provider: VICENTE [place] [id number] Note ORIGINAL EXAMINATION: TWO XRAY VIEWS OF [...] Sign Date: 06/30/2023 4:01:46 PM Ordering Provider: [facility]09-26-2023 Evaluation + Plan noteExtracted from: Title:History and Physical Author:ROHAN MCDOWELL Date:06/30/23 1. Ankle pain-swelling Acute, s/p mechanical fall at home *X-ray of left ankle reveals fracture of distal fibula. *Consult Dr. Jose Roberto, orthopedics, for recommendation. *Patient is non weightbearing to left ankle. *Consult placed to PT and OT to evaluate and treat. *manager environmental services consulted for discharge planning. *Continue PO pain [...] Appointment Date:09/22/2023 11:30:00 AM Scheduled Provider:LACI BREWER Location:[facility] Appointment Type: OV [facility] Consult note Author Gerry Brown [facility] Note Date/Time July 06, 2025 2: 20pm [facility] Medical Records Department [address] [place] [address] Anesthesia Postop Eval I 07/06/25 1419 MR#: [id number] Acct: [id number] Name: GUMARO HUFF Ewa Rep #:[id number] : 1945 80 From: Gerry Brown PCP: Dr. Balwinder Alves MD Status:REG SDC Y Race: C Location: [place] [address] Anesthesia: Postop Eval I Current Vital Signs [...] by Gerry Brown > Date _ Gerry Yousifigner Signature: Date CC: ~ Signed [facility] Work Phone: Consult note Author Arcenio [facility] Note Date/Time July 06, 2025 4: 16pm [facility] Medical Records Department [address] [place] [address] Anesthesia Postop Eval II 07/06/25 1616 MR#: [id number] Acct: [id number] Name: GUMARO HUFF Rep #:[id number] : 1945 80 From: Arcenio MARCIAL PCP: Dr. Balwinder Alves MD Status:REG MILADYSC Y Race: C Location: [place] [address] Anesthesia Postop Eval I Sum Postop Eval [...] CRNA Cosigner Signature: Date CC: ~ Signed [facility] Work Phone: Evaluation + Plan note Future Appointments Appointment Date:07/24/2021 11:30:00 AM Scheduled Provider:LACI BREWER Location:[facility] Appointment Type:PC OV Future Scheduled Tests Laboratory* Vitamin D Level 01/22/21 * Vitamin D Level 11/06/20 [facility] Evaluation + Plan note Future Appointments Appointment Date:02/04/2022 11:00:00 AM Scheduled Provider:LACI BREWER Location:[facility] Appointment Type:PC OV Follow Up [facility] Evaluation + Plan note Future Appointments Appointment Date:02/10/2023 11:30:00 AM Scheduled Provider:LACI BREWER Location:[facility] Appointment Type:PC OV [facility] Evaluation note* Diagnosis Onset Date Resolution Status Closed fracture of left distal fibula acute Left ankle pain acute [facility] Work Phone: Evaluation note* Diagnosis Closed fracture of left ankle, initial encounter- Primary documented in this encounter [facility] note* Diagnosis Closed fracture of distal end of left fibula, unspecified fracture morphology, initial encounter Acute left ankle pain documented in this encounter [facility] note* Diagnosis Closed fracture of distal end of left fibula, unspecified fracture morphology, initial encounter- Primary [facility]* Diagnosis Closed fracture of distal end of left fibula, unspecified fracture morphology, initial encounter- Primary documented in this encounter [facility] [place] noteNo assessment information availableWAdams [facility] Work Phone: Evaluation note* Diagnosis Onset Date Resolution Status Admit Date Kidney stones acute May 9:40am UTI (urinary tract infection) acute May 17, 2025 9:40am [facility] Work Phone: Hospital course Narrative No data available for this section [facility] Discharge instructions No data available for this section [facility] Hospital Discharge instructions Additional Instructions Remove packing/have packing removed in 48 hours. Do not leave in longer. Continue vancomycin through your peripheral IV.[facility] Work Phone: Progress note No data available for this section [facility] Reason for referral (narrative)No reason for referral information availableWAdams [facility] Work Phone: Summary Purpose Family History No Family History Records Found Advance Directives No Advanced Directives Records Found Advance Directive Response Recorded Date/ Time Name of Medical Power of Grout Machine Tender casey laureano February 06, 2024 3:49pm Living Will Yes February 06, 2024 3: 49pm Power of Grout Machine Tender Yes February 06, 2024 3:49pm Advance Directive Response Recorded Date/ Time Do you have a Healthcare Power of Grout Machine Tender? No June 28, 2025 8:30am Chief Complaint [...] 40am Uncontrolled type 2 diabetes mellitus [facility] 2024 9:40am UTI (urinary tract infection) May [...] 9: 40am Uncontrolled type 2 diabetes mellitus [facility] 2024 9:40am UTI (urinary tract infection) May [...] Urine C&S/sign consent June 30, 2025 10:09am PENITENTIARY LAB WORK July 03 5:00am Right ESWL- Cysto, Right stent insertion July 06, 2025 10:41am Right ESWL- Cysto, Right stent insertion July 06, 2025 12:11pm PENITENTIARY LAB WORK July 10, 2025 6:15am CALCULUS OF KIDNEY July 31, 2025 9 :48am Reason for Referral Specialty Diagnoses / Procedures Referred By Edson t Referred To Contact Physical Therapy Diagnoses Closed fracture of distal end of left fibula, unspecified fracture morphology, initial encounter Procedures OK OFFICE/OUTPATIENT [facility] 60 MINUTES Tete Trevino PA [address] [place] [id number] Referral ID Status Reason Start Date Expiration Date Visits Requested Visits Authorized [id number] Pending Review Eval and Treat 10/14/2023 04/11/2024 99 99 Additional Source Comments Care Team (unrecognized sect ion and content) Team Status: Active Member Role Status Dates Dr. Joaquin Thomas MD Family Provider Active Laci Brewer SAUSAGE LINKER, SAUSAGE LINKER-C Primary Care Provider Active Team Status: Inactive Member Role Status Dates Laci Brewer SAUSAGE LINKER, SAUSAGE LINKER-C Primary Care Provider, Referring Provider Active Prieto Meade MD Attending Provider Active Team Status: Inactive Member Role Status Dates Laci Brewer SAUSAGE LINKER, SAUSAGE LINKER-C Primary Care Provider Active Dr. 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 Teacher Relationship Specialty Start Date End Date Balwinder Alves MD [address] [place] [phone] PCP - General Family Medicine 10/14/23 Elementary Esl Teacher Relationship Specialty Start Date End Date Balwinder Alves MD [address] [place] [phone] PCP - General Family Medicine 10/14/23 Elementary Esl Teacher Relationship Specialty Start Date End Date Balwinder Alves MD [address] [place] [phone] PCP - General Family Medicine 10/14/23 Team Status: Inactive Member Role Status Dates Laci Brewer SAUSAGE LINKER, SAUSAGE LINKER-C Primary Care Provider Active Balwinder MARSHALL MD [...] Inactive Member Role/Relationship Status Dates Dr. Balwinder Avles MD Primary care physician Active Start: April [...] section and content) DATE CREATED AUTHOR 07/23/2023 [facility] ([place] DATE CREATED AUTHOR AUTHOR'S ORGANIZ ATION 12/10/2023 [facility] DATE CREATED AUTHOR AUTHOR'S ORGANIZ ATION 08/14/2025 [facility] Reason for Visit (unrecogniz ed [...] BE BASED ON THE PRIMARY CLINICAL RECORDS. [employer] provides no warranty or guarantee of the accuracy or completeness of information in this document.
[2025-09-14 09:04] LABS: Hematocrit 34.5 % (37-47); Hemoglobin 10.8 g/dL (12.0-15.0); Mean Corp Hgb Conc 31.3 g/dL (32-36); Mean Corpuscular Volume 93.5 fL (81-99); Mean Platelet Vol. 8.6 fl (6.2-12.0); Platelet Count 134 K/mm3 (150-450); RBC Distribution Width CV 15.1 % (11.6-14.6); RBC Distribution Width SD 51.9 fl (35.1-43.9); Red Blood Count 3.69 M/mm3 (4.2-5.4); White Blood Count 5.8 K/mm3 (4.4-11.0)
[2025-09-14 09:31] LABS: Anion Gap 11 (5-15); BUN 10 mg/dL (4-19); BUN/Creat Ratio 14.6 RATIO (10-20); Calcium,Total 9.4 mg/dL (7.6-11.0); Carbon Dioxide 26.5 mmol/L (21.0-32.0); Chloride 100 mmol/L (98-108); Glucose 196 mg/dL (70-99); Potassium 4.2 mmol/L (3.3-5.1)
== END ==
LOC: OLS.WCC 05:00
PROVIDERS: PCP Family Medicine; Visit Provider Family Medicine
DX: I50.9 Heart failure, unspecified (principal)
CPT/HCPCS: 36415; 80048; 85027